=== PATIENT | male | born 1960 | race Caucasian/White ===

== ENCOUNTER 2016-06-14 22:52 | Emergency (ER) | payer OTHER ==
[~2016-06-14] VITALS: Ht 193 cm; Wt 90.3 kg
[2016-06-14 23:00] VITALS: TEMP 36.4; O2SAT 97; Ht 193 cm; Wt 90.3 kg
[2016-06-14] MEDS ORDERED: LORAZEPAM 2 MG/ML 1 ML VIAL IV STA (23:10)
[2016-06-14] MEDS ORDERED: SODIUM CHLORIDE 0.9% 1000ML 1,000 ML IV ONE (23:15)
[2016-06-14 23:41] LABS: PARTIAL THROMBOPLASTIN RATIO 1.1; PROTHROMBIN TIME (PATIENT) 10.7 SECONDS (9.0-12.0)
[2016-06-14 23:51] LABS: BUN/CREATININE RATIO 8.7 (10-20); CALCIUM 8.3 mg/dl (8.5-10.1); CREATININE 0.67 mg/dl (0.60-1.40); MAGNESIUM 2.3 mg/dl (1.8-2.4); POTASSIUM 4.2 mmol/L (3.5-5.1)
[2016-06-14 23:57] LABS: BASO ABS # 0.05 K/uL (0-0.2); BASOPHIL % 1.7 % (0-2); COMPLETE YES; LYMPH ABS # 0.83 K/uL (1.2-3.4); MEAN CELL VOLUME 89.4 fL (80-100); MEAN CORPUSCULAR HEMOGLOBIN 32.3 pg (25-34); MEAN CORPUSCULAR HGB CONC 36.2 g/dl (32-36); MEAN PLATELET VOLUME 9.4 fL (7.4-10.4); NEUTROPHILS % 44.9 %; PLATELET COUNT 90 K/uL (130-400); PLT ESTIMATE DECREASED; VARIANT LYM ABS # 0.48 K/uL; VARIANT LYMPHOCYTE % 18.1 %; WHITE BLOOD COUNT 2.67 K/uL (4.8-10.8)
[2016-06-15] MEDS ORDERED: LORAZEPAM 2 MG/ML 1 ML VIAL IM STA ×2 (00:13→01:43)
[2016-06-15] MEDS ORDERED: HALOPERIDOL LACTATE 5 MG/ML 1 ML VIAL ONE (00:13)
[2016-06-15] MEDS ORDERED: HALOPERIDOL LACTATE 5 MG/ML 1 ML VIAL IM STA ×2 (00:13→01:43)
[2016-06-15 04:50] VITALS: BP 125/82; PULSE 68; O2SAT 95
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
[2016-11-22] MEDS ORDERED: CRD200 PO (17:00)
[2016-11-22] MEDS ORDERED: NICO21DI4 TD (17:00)
[2016-11-22] MEDS ORDERED: DLCSR120 PO (17:00)
[2016-11-22] MEDS ORDERED: THM100 PO (17:00)
[2016-11-22] MEDS ORDERED: CLC100 PO (17:00)
[2016-11-22] MEDS ORDERED: DPKSP125 PO (17:00)
[2016-11-22] MEDS ORDERED: CTP1X PO (17:00)
[2016-11-22] MEDS ORDERED: FLV1 PO (17:00)
[2016-11-22] MEDS ORDERED: SNK PO (17:00)
[2016-11-22] MEDS ORDERED: CNT PO (17:00)
[2016-11-22] MEDS ORDERED: VTMD1000 PO (17:00)
[2016-11-22] MEDS ORDERED: NRN300 PO (17:14)
== END 2016-06-15 05:10 | disposition home or self-care (01) ==
LOC: EDBD 22:52 → C.EDB 23:00
DX: F10.129 Alcohol abuse with intoxication, unspecified (principal); Y90.8 Blood alcohol level of 240 mg/100 ml or more; R41.82 Altered mental status, unspecified; F17.200 Nicotine dependence, unspecified, uncomplicated

== ENCOUNTER 2016-10-20 12:24 | Inpatient (IN) | payer OTHER ==
[~2016-10-20] VITALS: Ht 193 cm; Wt 90.9 kg
[2016-10-20] VITALS (11 sets, daily range): BP systolic 86–168; BP diastolic 59–80; PULSE 84–116; TEMP 38.2; O2SAT 94–100; Ht 193 cm; Wt 90.9 kg
[2016-10-20] MEDS ORDERED: SODIUM CHLORIDE 0.9% 1000ML 500 ML IV STA (13:23)
[2016-10-20] MEDS ORDERED: PROMETHAZINE HCL INJ 6.25 MG in SODIUM CHLORIDE 0.9% 50ML 50 ML IV STA (13:23)
[2016-10-20] MEDS ORDERED: CEFTRIAXONE SOD INJ 1 GM ADDVIAL IV STA (13:23)
[2016-10-20] MEDS ORDERED: MULTI-VITAMIN INFUSION INJ 10 ML, THIAMINE HCL INJ 100 MG, FoLIC ACID INJ 1 MG in SODIU... IV ONE (13:30)
[2016-10-20] MEDS ORDERED: DIAZEPAM INJ 5 MG/ML 2 ML CARP IV ONE (13:30)
--- NOTE | 2016-10-20 13:46 | EMERGENCY ROOM VISIT NOTE ---
History Report prepared by Dorothy: Ayush Blackburn Under the Supervision of: Dr. Brice Reed M.D. First contact with patient: 13:18 Chief Complaint: DETOX REQUEST Stated Complaint: SHAKING Nursing Triage Summary: Pt arrives ALS from home Pt is alcoholic but has drastically decreased ETOH intake in the past month Pt reports he has not had any ETOH on 4 days until today. Pt had 1.5 beer this morning Pt reports he has been shaky and falling frequently Pt has bruising to bilat legs and bilat arms in different stages of healing History of Present Illness The patient is a 56 year old male who presents to the Emergency Room via ambulance with an acute alcohol detox request. The patient has been decreasing his alcohol intake over the past month. He also been falling frequently for the past month which is why he is covered in bruises. He was not drinking for four days until he had a few beers today. He has been experiencing episodes of shaking in which he does not lose consciousness. He has not bitten his tongue or become incontinent of urine or stool. He does not have a seizure history. The patient is feeling thirsty and dehydrated. He denies fevers, chills, vomiting. He does not have any known drug allergies but he does have adverse reactions to Ibuprofen. He does not take any daily medications other than vitamins. Source of History: patient Onset: today Position: other (global) Quality: other (alcohol detox request) Timing: other (acute) Associated Symptoms: No LOC, No chills, No fevers, No vomiting Review of Systems See HPI for pertinent positives & negatives. A total of 10 systems reviewed and were otherwise negative. Past Medical & Surgical Medical Problems: (1) Alcohol abuse Family History No pertinent family history Social History Smoking Status: Current Some Day Smoker Alcohol Use: heavy Marital Status: Occupation Status: unemployed Current/Historical Medications No Active Prescriptions or Reported Meds Allergies Coded Allergies: Ibuprofen (Unverified Allergy, Unknown, FACIAL SWELLING, 10/20/16) Physical Exam Vital Signs Date Time Temp Pulse Resp B/P Pulse Ox O2 Delivery O2 Flow Rate FiO2 10/20/16 14:55 96 Room Air 10/20/16 14:54 96 20 126/93 96 Room Air 10/20/16 14:17 102 18 109/79 97 Room Air 10/20/16 12:47 100 10/20/16 12:31 37.0 108 22 109/83 93 Room Air Physical Exam GENERAL: Patient is in no acute distress. Alcohol on his breath. HEENT: No acute trauma, normocephalic atraumatic, mucous membranes are dry, no nasal congestion, no scleral icterus. NECK: No stridor, no adenopathy, no meningismus, trachea is midline, nontender over the C-spine. LUNGS: Clear to auscultation bilaterally, no wheeze, no rhonchi, breath sounds equal. HEART: Tachycardic with a regular rhythm and no murmurs. ABDOMEN: Soft, nontender, bowel sounds positive, no hernias, no peritonitis. BACK: Contusions noted, no bony stepoff to the thoracic or lumbar spine. EXTREMITIES: See skin exam. No obvious fracture clinically to the upper or lower extremities. NEUROLOGIC: Awake, tremors noted to all extremities, no focal motor deficits, somewhat anxious. SKIN: Bruises and contusions noted across the body from head to toe, contusion to the left forearm and elbow is erythematous and warm consistent with possible cellulitis. Medical Decision & Procedures ER Provider Diagnostic Interpretation: Radiology results as stated below per my review and radiologist interpretation: CHEST ONE VIEW PORTABLE CLINICAL HISTORY: ALCOHOL OD mental status change COMPARISON STUDY: 07/21/2009 FINDINGS: Round atelectasis versus round parenchymal infiltrate left base. Possibility of an old healed fracture of the left ninth rib is considered. Diaphragms are smooth. Several subacute rib fractures are also noted bilaterally. No evidence pneumothorax. IMPRESSION: 1. Bilateral rib fractures of varying age. 2. Round atelectasis/infiltrate left base versus calcification of a healing posterior fracture left ninth rib Electronically signed by: Keo Muir M.D. 10/20/2016 1:48 PM Dictated Date/Time: 10/20/2016 1:[address] HEAD WITHOUT CONTRAST (CT) CLINICAL HISTORY: Head trauma. Ethanol overdose. COMPARISON STUDY: 06/14/2016 TECHNIQUE: Axial CT of the brain is performed from the vertex to the skull base. IV contrast was not administered for this examination. CT DOSE: 537.48 mGy.cm FINDINGS: No intra or extra-axial mass lesions are visualized. There is no CT evidence of acute cortical infarction. There is no evidence of midline shift. There is no acute hemorrhage. No calvarial fractures are visualized. There are patchy white matter hypodensities likely on a small vessel basis. There is no evidence of pathologic ventricular dilatation. There is mild generalized atrophy. There is no evidence of acute sinusitis IMPRESSION: No acute intracranial findings Electronically signed by: Jose Villanueva M.D. 10/20/2016 2:42 PM Dictated Date/Time: 10/20/2016 2:42 PM Laboratory Results 10/20/16 13:52 Red Blood Count 4.30, Mean Corpuscular Volume 89.3, Mean Corpuscular Hemoglobin 31.9, Mean Corpuscular Hemoglobin Concent 35.7, Mean Platelet Volume 11.7, Neutrophils (%) (Auto) 79.8, Lymphocytes (%) (Auto) 10.7, Monocytes (%) (Auto) 9.3, Eosinophils (%) (Auto) 0.0, Basophils (%) (Auto) 0.0, Neutrophils # (Auto) 3.27, Lymphocytes # (Auto) 0.44, Monocytes # (Auto) 0.38, Eosinophils # (Auto) 0.00, Basophils # (Auto) 0.00 10/20/16 13:52 Test 10/20/16 13:23 10/20/16 13:52 10/20/16 14:13 White Blood Count 4.10 K/uL (4.8-10.8) Red Blood Count 4.30 M/uL (4.7-6.1) Hemoglobin 13.7 g/dL (14.0-18.0) Hematocrit 38.4 % (42-52) Mean Corpuscular Volume 89.3 fL (80-100) Mean Corpuscular Hemoglobin 31.9 pg (25-34) Mean Corpuscular Hemoglobin Concent 35.7 g/dl (32-36) Platelet Count 39 K/uL (130-400) Mean Platelet Volume 11.7 fL (7.4-10.4) Neutrophils (%) (Auto) 79.8 % Lymphocytes (%) (Auto) 10.7 % Monocytes (%) (Auto) 9.3 % Eosinophils (%) (Auto) 0.0 % Basophils (%) (Auto) 0.0 % Neutrophils # (Auto) 3.27 K/uL (1.4-6.5) Lymphocytes # (Auto) 0.44 K/uL (1.2-3.4) Monocytes # (Auto) 0.38 K/uL (0.11-0.59) Eosinophils # (Auto) 0.00 K/uL (0-0.5) Basophils # (Auto) 0.00 K/uL (0-0.2) RDW Standard Deviation 40.1 fL (36.4-46.3) RDW Coefficient of Variation 12.4 % (11.5-14.5) Immature Granulocyte % (Auto) 0.2 % Immature Granulocyte # (Auto) 0.01 K/uL (0.00-0.02) Platelet Estimate DECREASED Prothrombin Time 10.6 SECONDS (9.0-12.0) Prothromb Time International Ratio 1.0 (0.9-1.1) Activated Partial Thromboplast Time 29.8 SECONDS (21.0-31.0) Partial Thromboplastin Ratio 1.1 Anion Gap 10.0 mmol/L (3-11) Est Creatinine Clear Calc Drug Dose 150.6 ml/min Estimated GFR () 124.6 Estimated GFR (Non- 107.5 BUN/Creatinine Ratio 11.2 (10-20) Lactic Acid Level 2.8 mmol/L (0.4-2.0) Calcium Level 9.4 mg/dl (8.5-10.1) Magnesium Level 2.2 mg/dl (1.8-2.4) Total Bilirubin 1.5 mg/dl (0.2-1) Direct Bilirubin 0.5 mg/dl (0-0.2) Aspartate Amino Transf (AST/SGOT) 116 U/L (15-37) Alanine Aminotransferase (ALT/SGPT) 115 U/L (12-78) Alkaline Phosphatase 185 U/L (45-117) Total Protein 8.2 gm/dl (6.4-8.2) Albumin 3.9 gm/dl (3.4-5.0) Lipase 76 U/L (73-393) Thyroid Stimulating Hormone (TSH) 0.850 uIu/ml (0.300-4.500) Ethyl Alcohol mg/dL 53.0 mg/dl (0-3) Laboratory results reviewed by me. Medications Administered Medications (Trade) Dose Ordered Sig/Rica Route Start Time Stop Time Status Last Admin Dose Admin Diazepam 5 mg 5 mg NOW ONCE IV 10/20/16 13:30 10/20/16 13:31 DC 10/20/16 13:45 5 MG Promethazine HCl 6.25 mg/Sodium Chloride 50.25 ml @ 204 mls/hr NOW STAT IV 10/20/16 13:23 10/20/16 13:37 DC 10/20/16 13:44 204 MLS/HR Sodium Chloride 500 ml @ 999 mls/hr Q31M STAT IV 10/20/16 13:23 10/20/16 13:53 DC 10/20/16 13:23 999 MLS/HR Multivitamins/ Thiamine HCl/ Folic Acid/Sodium Chloride (Mvi Infusion Inj/Vitamin B-1 Inj/Folvite Inj/ Nss 1000ml) 1,011.2 ml @ 500 mls/ hr Q2H2M ONCE IV 10/20/16 13:30 10/20/16 15:31 DC 10/20/16 13:57 500 MLS/HR Ceftriaxone Sodium (Rocephin Inj) 1 gm NOW STAT IV 10/20/16 13:23 10/20/16 13:28 DC 10/20/16 14:26 1 GM Lorazepam (Ativan Inj) 2 mg NOW STAT IV 10/20/16 14:37 10/20/16 14:40 DC 10/20/16 15:05 2 MG Chlordiazepoxide (Librium Cap) 50 mg NOW ONCE PO 10/20/16 14:45 10/20/16 14:46 DC 10/20/16 15:05 50 MG ECG Indication: other (tremor) Rate (beats per minute): 109 Rhythm: sinus tachycardia Findings: no acute ischemic change, no ectopy ED Course 1320: The patient was evaluated in room B10. A complete history and physical exam was performed. 1323: Rocephin 1 gm IV, NSS 500 ml @ 999 mls/hr, Promethazine HCl 6.25 mg / NSS 50.25 ml @ 204 mls/hr. 1330: Multivitamins 10 ml / Thiamine HCl 100 mg / Folic Acid 1 mg / NSS 1011.2 ml @ 500 mls/hr, Valium 5 mg IV. 1437: Ativan 2 mg IV. 1440: The patient is being moved to room A8. 1445: Librium 50 mg PO. The patient received 2 more milligrams of IV Ativan, Dr. Chirinos was consulted for admission/observation. Medical Decision Differential diagnosis includes dehydration, electrolyte imbalance, alcohol withdrawal, delirium tremens, renal failure, intracranial bleeding, extremity fracture, rhabdomyolysis, seizure, cellulitis, or UTI. There is no leukocytosis or concerning anemia. Platelet count is low in the 30s. Renal panel testing does not show renal failure or significant electrolyte abnormality. A hepatitis is present, likely consistent with his alcoholism. The patient appears to be in a euthyroid state. Brain CT shows no acute bleed or mass effect. Chest film shows old rib fractures, no pneumothorax or true pneumonia. EKG shows a sinus tachycardia, no acute ischemia. Cardiac enzyme testing is presently pending. Total CK is pending. Blood cultures are pending. Lactic acid level is elevated at over 2 consistent with possible infection or dehydration. There was no coagulopathy. Alcohol level was elevated at 53. Urine tox and urinalysis are pending. The patient presents with alcohol withdrawal, possibly seizures from alcohol withdrawal. He is dehydrated, he has multiple contusions about his extremities and torso. He was quite agitated. He was aggressively managed. He received IV Ativan and IV Valium. He was given oral Librium. He received IV saline. He was given IV saline with multivitamins, thiamine and folate. Because of concerns for a possible cellulitis on the left upper extremity, he was given a dose of IV ceftriaxone. Patient required a few more doses of IV Ativan for his agitation. Security was called to keep him in bed and to keep him from harming himself. I spoke to the patient, I talked to the rn field case manager. The on-call hospitalist was consulted. The patient is in need of hospital care for his alcohol withdrawal. Impression Primary Impression: Alcohol withdrawal Additional Impressions: Dehydration Tremor Multiple contusions Scribe Attestation The scribe's documentation has been prepared under my direction and personally reviewed by me in its entirety. I confirm that the note above accurately reflects all work, treatment, procedures, and medical decision making performed by me. Departure Information Dispostion Being Evaluated By Hospitalist Prescriptions No Active Prescriptions or Reported Meds Referrals Misha Beltre M.D. (MEDICAL) (PCP) Patient Instructions My [facility] Problem Qualifiers
--- NOTE | 2016-10-20 13:50 | DIAGNOSTIC IMAGING REPORT ---
CHEST ONE VIEW PORTABLE CLINICAL HISTORY: ALCOHOL OD mental status change COMPARISON STUDY: 07/21/2009 FINDINGS: Round atelectasis versus round parenchymal infiltrate left base. Possibility of an old healed fracture of the left ninth rib is considered. Diaphragms are smooth. Several subacute rib fractures are also noted bilaterally. No evidence pneumothorax. IMPRESSION: 1. Bilateral rib fractures of varying age. 2. Round atelectasis/infiltrate left base versus calcification of a healing posterior fracture left ninth rib Electronically signed by: Keo Muir M.D. 10/20/2016 1:48 PM Dictated Date/Time: 10/20/2016 1:46 PM
[2016-10-20] MEDS ORDERED: LORAZEPAM 2 MG/ML 1 ML VIAL IV STA ×4 (14:37→16:45)
--- NOTE | 2016-10-20 14:43 | DIAGNOSTIC IMAGING REPORT ---
CT HEAD WITHOUT CONTRAST (CT) CLINICAL HISTORY: Head trauma. Ethanol overdose. COMPARISON STUDY: 06/14/2016 TECHNIQUE: Axial CT of the brain is performed from the vertex to the skull base. IV contrast was not administered for this examination. CT DOSE: 537.48 mGy.cm FINDINGS: No intra or extra-axial mass lesions are visualized. There is no CT evidence of acute cortical infarction. There is no evidence of midline shift. There is no acute hemorrhage. No calvarial fractures are visualized. There are patchy white matter hypodensities likely on a small vessel basis. There is no evidence of pathologic ventricular dilatation. There is mild generalized atrophy. There is no evidence of acute sinusitis IMPRESSION: No acute intracranial findings Electronically signed by: Jose Villanueva M.D. 10/20/2016 2:42 PM Dictated Date/Time: 10/20/2016 2:42 PM
[2016-10-20] MEDS ORDERED: CHLORDIAZEPOXIDE 25 MG CAP PO ONE (14:45)
[2016-10-20 14:46] LABS: PARTIAL THROMBOPLASTIN RATIO 1.1; PROTHROMBIN TIME (PATIENT) 10.6 SECONDS (9.0-12.0)
[2016-10-20 14:57] LABS: COMPLETE YES; HEMATOCRIT 38.4 % (42-52); IG% 0.2 %; LYMPH % 10.7 %; LYMPH ABS # 0.44 K/uL (1.2-3.4); MEAN CELL VOLUME 89.3 fL (80-100); MEAN CORPUSCULAR HEMOGLOBIN 31.9 pg (25-34); MEAN CORPUSCULAR HGB CONC 35.7 g/dl (32-36); MEAN PLATELET VOLUME 11.7 fL (7.4-10.4); MONO % 9.3 %; NEUT % 79.8 %; PLATELET COUNT 39 K/uL (130-400); PLT ESTIMATE DECREASED
[2016-10-20 15:01] LABS: BUN/CREATININE RATIO 11.2 (10-20); CALCIUM 9.4 mg/dl (8.5-10.1); CREATININE 0.68 mg/dl (0.60-1.40); MAGNESIUM 2.2 mg/dl (1.8-2.4); POTASSIUM 3.3 mmol/L (3.5-5.1)
[2016-10-20 15:12] LABS: THYROID STIMULATING HORMONE 0.85 uIu/ml (0.300-4.500)
--- NOTE | 2016-10-20 15:44 | EMERGENCY ROOM VISIT NOTE ---
ED Visit Note First contact with patient: 13:18 Critical care time: I have personally spent greater than 30 minutes of critical care time in the direct management of this patient. This includes bedside care , interpretation of diagnostic studies and testing, discussion with consultants , the patient, and family members, and other required patient management activities. This 30 minutes is in excess of all separately billable procedures.
[2016-10-20] MEDS ORDERED: SODIUM CHLORIDE 0.9% 1000ML 1,000 ML IV SCH (15:51)
[2016-10-20] MEDS ORDERED: ONDANSETRON INJ 2 MG/ML 2 ML VIAL IV PRN (16:00)
[2016-10-20] MEDS ORDERED: ACETAMINOPHEN 325 MG TAB PO PRN (16:00)
[2016-10-20 16:26] LABS: BENZODIAZEPINE, URINE NEG (NEG); COCAINE,URINE NEG (NEG); PHENCYCLIDINE, URINE NEG (NEG)
[2016-10-20] MEDS ORDERED: DexMEDEtomidine HCL INJ 200 MCG in SODIUM CHLORIDE 0.9% 50ML 48 ML IV PRN (16:29)
[2016-10-20] MEDS ORDERED: MIDAZOLAM 125MG/250ML D5W IV ONE (16:41)
--- NOTE | 2016-10-20 16:44 | History and Physical ---
History & Physical Date & Time of Service: October 20, 2016 at 16:25 Chief Complaint: Shaking Primary Care Physician: Misha Beltre M.D. (MEDICAL) History of Present Illness Source: patient, clinic records, hospital records Patient seen and examined. 56 year old male with PMHx of alcohol abuse presents to the ED complaining of tremors x 4 days. History is somewhat unclear as at my time of interview patient is hallucinating which nursing staff report began about a half hour ago. Apparently friends had noticed that patient had been falling down very often. Over the last few weeks he had been cutting back on alcohol and hasn't had any for four days until he had 1.5 beers this morning. Patient states he has about 6 beers most nights. Patient is seen in the presence of 2 security guards as patient is tremulous, hallucinating and trying to climb out of bed. He is oriented to self only. He states he has been having seizures and that he has had them in the past. There has not been any seizure activity while in the ED. In the ED VS are stable, LFTs are elevated platelet count is 39, lactate is 2.8, CT head is negative, CXR shows rib fractures with various stages of healing. He received 6mg of IV Ativan total, 5mg Valium, and Librium and is still very agitated. He will therefore be admitted to the ICU for further workup and treatment. Past Medical/Surgical History Medical Problems: (1) Alcohol abuse Status: Chronic (2) Tobacco abuse Status: Chronic Surgical Problems: (1) No pertinent past surgical history Status: Chronic Family History FH: cancer MOTHER (pancreatic CA ) FH: heart disease FATHER ([place] age 68 ) Social History Smoking Status: Current Some Day Smoker Alcohol Use: heavy Marital Status: Housing status: other Occupational Status: unemployed Immunizations History of Influenza Vaccine: No History of Tetanus Vaccine?: Unknown Tetanus Immunization Date: Jul 21, 2006 History of Pneumococcal: No History of Hepatitis B Vaccine: No Hepatitis Immunization Date: Jul 21, 1983 Multi-Drug Resistant Organisms History of MDRO: No Allergies Coded Allergies: Ibuprofen (Unverified Allergy, Unknown, FACIAL SWELLING, 10/20/16) Home Medications No Active Prescriptions or Reported Meds Review of Systems Unable to assess at this time d/t mental status Physical Exam Vital Signs Date Time Temp Pulse Resp B/P Pulse Ox O2 Delivery O2 Flow Rate FiO2 10/20/16 16:22 125 24 125/94 96 10/20/16 14:55 96 Room Air 10/20/16 14:54 96 20 126/93 96 Room Air 10/20/16 14:17 102 18 109/79 97 Room Air 10/20/16 12:47 100 10/20/16 12:31 37.0 108 22 109/83 93 Room Air General Appearance: + pertinent finding (Disheveled tremulous 56 year old male who appears very aggitated with security guards at bedside ) Head: normocephalic, atraumatic Eyes: PERRL, sclerae normal ENT: hearing grossly normal, pharynx normal Neck: supple, no JVD Respiratory/Chest: chest non-tender, lungs clear, normal breath sounds, no respiratory distress, no accessory muscle use Cardiovascular: regular rate, rhythm, no edema, no gallop, no JVD, no murmur, normal peripheral pulses Abdomen/GI: normal bowel sounds, non tender, soft Back: normal inspection, no muscle spasm Extremities/Musculoskelatal: no calf tenderness, normal capillary refill, no pedal edema Neurologic/Psych: + pertinent finding (Alert, oriented to self, +hallucinations , +tremors, +aggitation, moves all extremities appropriately ) Skin: + pertinent finding (diffuse ecchymosis ) Lymphatic: no adenopathy Diagnostics Laboratory Results Results Past 24 Hours Test 10/20/16 13:52 10/20/16 14:13 10/20/16 15:25 Range/Units White Blood Count 4.10 4.8-10.8 K/uL Red Blood Count 4.30 4.7-6.1 M/uL Hemoglobin 13.7 14.0-18.0 g/dL Hematocrit 38.4 42-52 % Mean Corpuscular Volume 89.3 80-100 fL Mean Corpuscular Hemoglobin 31.9 25-34 pg Mean Corpuscular Hemoglobin Concent 35.7 32-36 g/dl Platelet Count 39 130-400 K/uL Mean Platelet Volume 11.7 7.4-10.4 fL Neutrophils (%) (Auto) 79.8 % Lymphocytes (%) (Auto) 10.7 % Monocytes (%) (Auto) 9.3 % Eosinophils (%) (Auto) 0.0 % Basophils (%) (Auto) 0.0 % Neutrophils # (Auto) 3.27 1.4-6.5 K/uL Lymphocytes # (Auto) 0.44 1.2-3.4 K/uL Monocytes # (Auto) 0.38 0.11-0.59 K/uL Eosinophils # (Auto) 0.00 0-0.5 K/uL Basophils # (Auto) 0.00 0-0.2 K/uL RDW Standard Deviation 40.1 36.4-46.3 fL RDW Coefficient of Variation 12.4 11.5-14.5 % Immature Granulocyte % (Auto) 0.2 % Immature Granulocyte # (Auto) 0.01 0.00-0.02 K/uL Platelet Estimate DECREASED Prothrombin Time 10.6 9.0-12.0 SECONDS Prothromb Time International Ratio 1.0 0.9-1.1 Activated Partial Thromboplast Time 29.8 21.0-31.0 SECONDS Partial Thromboplastin Ratio 1.1 Sodium Level 131 136-145 mmol/L Potassium Level 3.3 3.5-5.1 mmol/L Chloride Level 94 98-107 mmol/L Carbon Dioxide Level 27 21-32 mmol/L Anion Gap 10.0 3-11 mmol/L Blood Urea Nitrogen 8 7-18 mg/dl Creatinine 0.68 0.60-1.40 mg/dl Est Creatinine Clear Calc Drug Dose 150.6 ml/min Estimated GFR () 124.6 Estimated GFR (Non- 107.5 BUN/Creatinine Ratio 11.2 10-20 Random Glucose 92 70-99 mg/dl Lactic Acid Level 2.8 0.4-2.0 mmol/L Calcium Level 9.4 8.5-10.1 mg/dl Magnesium Level 2.2 1.8-2.4 mg/dl Total Bilirubin 1.5 0.2-1 mg/dl Direct Bilirubin 0.5 0-0.2 mg/dl Aspartate Amino Transf (AST/SGOT) 116 15-37 U/L Alanine Aminotransferase (ALT/SGPT) 115 12-78 U/L Alkaline Phosphatase 185 45-117 U/L Total Creatine Kinase 548 39-308 U/L Troponin I < 0.015 0-0.045 ng/ml Total Protein 8.2 6.4-8.2 gm/dl Albumin 3.9 3.4-5.0 gm/dl Lipase 76 73-393 U/L Thyroid Stimulating Hormone (TSH) 0.850 0.300-4.500 uIu/ml Ethyl Alcohol mg/dL 53.0 0-3 mg/dl Microbiology Results 10/20/16 Blood Culture, Received Pending 10/20/16 Blood Culture, Received Pending Diagnostic Radiology CXR Per radiologist read: IMPRESSION: 1. Bilateral rib fractures of varying age. 2. Round atelectasis/infiltrate left base versus calcification of a healing posterior fracture left ninth rib CT HEAD Per radiologist read: IMPRESSION: No acute intracranial findings EKG Sinus Tachycardia 109 BPM, QTc 463 Impression Assessment and Plan 56 year old male presents to the ED with alcohol detox request. ALCOHOL WITHDRAWAL -Admit to ICU -Receive total of 6mg IV Ativan, 5mg Valium and 50mg Librium in ED -Alcohol level 53, tox screen pending -Daily banana bag, will need po vitamins when this is stopped -Start alcohol withdrawal protocol with Librium and gabapentin -ICU admission for Precedex drip - defer management to technical services specialist -technical services specialist consult placed - input appreciated -Seizure precautions -psychiatry, bilingual social worker consults placed for discharge planning RE: possible rehab -CBC, CMP, Mg in AM TRANSAMINITIS -Total Bili 1.5, AST 116, ALT 115, Alk Phos 108 -likely secondary to alcohol abuse -repeat in AM THROMBOCYTOPENIA -39, likely secondary to alcohol abuse, liver disease - diffuse ecchymosis noted, no signs of active bleeding, Hgb stable -avoid anticoagulation, follow CBC ELEVATED LACTATE -lactate 2.8, no signs of infection -IVF hydration -repeat lactate at 1530 TOBACCO ABUSE -Cessation counseling given -Nicotine patch ordered DVT PROPHYLAXIS: SCDs RE: thrombocytopenia CODE STATUS: FULL CODE DISPO:In my clinical judgment this beneficiary meets acute admission criteria, established by [facility], that includes being hospitalized through two midnights. Patient seen in collaboration with Dr. Chirinos Attending Addendum: The patient was seen and examined The patient has been going through Delirium Tremens during my exam Denies any Pain Delirium is not controlled with IV Ativan and was admitted to ICU O/E Generalized bruising on multiple areas of different ages Very Agitated Received ~8mg Ativan in last hour and also Valium and Chlordiazepoxide Tachycardia with high BP Chest-clear to auscultate bilaterally Heart-regular Abdomen-benign Extremities-no edema Labs and Imaging studies were reviewed Delirium Tremens-requiring ICU care Agree with the assessment and plain DR Toby Chirinos VTE Prophylaxis VTE Risk Assessment Done? Y/N: Yes Risk Level: Moderate
[2016-10-20] MEDS ORDERED: RAPID SEQUENCE INDUCTION BAG ONE (16:49)
[2016-10-20] MEDS: LORAZEPAM 2 MG/ML 1 ML VIAL IV PRN (16:57)
[2016-10-20] MEDS ORDERED: KETAMINE HCL INJ 50 MG/ML 10 ML VIAL IV ONE (17:00)
[2016-10-20] MEDS ORDERED: NURSING VERBAL MED ORDER ONE (17:00)
[2016-10-20] MEDS ORDERED: KETAMINE HCL INJ 50 MG/ML 10 ML VIAL IV STA ×10 (17:11→17:35)
[2016-10-20] MEDS ORDERED: PNEUMOCOCCAL POLYSACCHARIDES 25 MCG/0.5 ML VIAL/SYR IM. ONE (17:15)
[2016-10-20] MEDS ORDERED: PNEUMOCOCCAL ADMINISTRATION CHARGE ONE (17:15)
[2016-10-20] MEDS ORDERED: CHLORDIAZEPOXIDE 25 MG CAP PO SCH ×2 (18:00→20:00)
[2016-10-20] MEDS ORDERED: GABAPENTIN 600 MG TAB PO ONE (18:00)
[2016-10-20] MEDS ORDERED: PROPOFOL IV EMULSION 10 MG/ML 100 ML VIAL IV ONE (18:23)
[2016-10-20] MEDS ORDERED: OPTIRAY 320 IV PRN (19:15)
[2016-10-20] MEDS: MIDAZOLAM 125MG/250ML D5W 250 ML IV PRN (19:27)
[2016-10-20] MEDS ORDERED: THIAMINE HCL INJ 500 MG in SODIUM CHLORIDE 0.9% 100ML 100 ML IV ONE (19:30)
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
[2016-10-20 20:11] LABS: ISTAT ALLEN TEST Pass; ISTAT ARTERIAL BLOOD GAS HCO3 27 meq/L (19-24); ISTAT ARTERIAL BLOOD GAS PCO2 47 mmHg (35-46); ISTAT ARTERIAL BLOOD GAS PO2 275 mmHg (80-95); ISTAT ARTERIAL BLOOD GAS pH 7.37 (7.35-7.45); ISTAT CARBON DIOXIDE 28 mEq/l (24-31); ISTAT DELIVERY SYSTEM Ventilator; ISTAT FIO2 100 %; ISTAT PEEP 5; ISTAT RATE 16; ISTAT SITE R Radial; Vt 500
--- NOTE | 2016-10-20 20:22 | DIAGNOSTIC IMAGING REPORT ---
CHEST ONE VIEW PORTABLE HISTORY: intubation COMPARISON: Chest 10/20/2016. FINDINGS: Endotracheal tube terminates 4.1 cm from the [place]. Nasogastric tube terminates below the diaphragm. The tip is not included on this study. No pneumothorax. No pleural effusions. Bibasilar hazy airspace opacities. Healing/healed left-sided rib fractures. The heart is normal in size. IMPRESSION: 1. Satisfactory support line placement. 2. Hazy bibasilar densities which may represent atelectasis or pneumonia. Electronically signed by: Dalton Adler M.D. 10/20/2016 8:21 PM Dictated Date/Time: 10/20/2016 8:19 PM
[2016-10-20] MEDS ORDERED: PEPTAMEN 1.5 CAL 1000ML BAG PO SCH (21:15)
--- NOTE | 2016-10-20 21:42 | DIAGNOSTIC IMAGING REPORT ---
CERVICAL SPINE CT CT DOSE: HISTORY: trauma TECHNIQUE: Multiaxial CT images of the cervical spine were performed and reformatted in the sagittal and coronal plane without the use of contrast. COMPARISON: Cervical spine CT 06/14/2016. FINDINGS: No fractures. No subluxation. Prevertebral soft tissues and the C1-C2 interval are intact. No pneumothorax. An endotracheal tube and nasogastric tube are noted. A stable 8 mm sclerotic focus within the left side of C1. Partial fusion of the C6-C7 vertebral bodies and left facets. Mild disc space narrowing at C4-C5 and C5-C6. IMPRESSION: No fractures within the cervical spine. Electronically signed by: Dalton Adler M.D. 10/20/2016 9:40 PM Dictated Date/Time: 10/20/2016 9:36 PM
[2016-10-20] MEDS: NSS + 20MEQ KCL 1000ML 1,000 ML IV SCH (22:02)
--- NOTE | 2016-10-20 22:02 | DIAGNOSTIC IMAGING REPORT ---
CHEST CT WITH CONTRAST, ABDOMEN AND PELVIS CT WITH INTRAVENOUS CONTRAST CT DOSE: 1272.02 mGy.cm HISTORY: trauma TECHNIQUE: Multiaxial CT images of the chest, abdomen, and pelvis were performed following the intravenous administration of contrast. COMPARISON: Chest 10/20/2016. FINDINGS: Multiple healing bilateral lower rib fractures. Nondisplaced acute right lateral sixth and seventh rib fractures. Endotracheal tube terminates 3.5 cm from the [place]. The nasogastric tube terminates in the stomach. No pneumothorax. No pleural effusions. The heart is normal in size. No mediastinal or hilar lymphadenopathy. No evidence for an aortic dissection. The central pulmonary arteries are patent. Trace mucoid material within the bilateral mainstem bronchi. There is also mucoid impaction of the majority of the right lower lobe segmental bronchi. There is complete collapse of the right lower lobe. Consolidation seen within the posterior aspect of the left lower lobe. There are few small patchy groundglass airspace opacities within the right upper lobe. No pneumoperitoneum. No pneumatosis. Tiny fat-containing bilateral inguinal hernias. Severe hepatic steatosis. There are at least 6 hyperdense/enhancing lesions within the liver. The largest within the right hepatic lobe measures 2 cm. The spleen, gallbladder, adrenal glands, and pancreas are unremarkable. Mild bilateral cortical renal scarring. No hydronephrosis. No retroperitoneal lymphadenopathy. There is a Corley catheter within the decompressed bladder. No pelvic free fluid. Colonic diverticulosis. No bowel wall thickening or obstruction. Normal appendix. IMPRESSION: 1. Acute nondisplaced right lateral sixth and seventh rib fractures. No pneumothorax. 2. Multiple additional healing bilateral lower rib fractures. 3. The majority of the right lower lobe segmental bronchi demonstrate mucoid opacification. There is associated complete collapse of the right lower lobe. This is likely due to aspiration. An obstructing mass is considered less likely but not entirely excluded. Bronchoscopy should be considered for further evaluation. 4. Posterior densities within the left lower lobe may represent atelectasis or pneumonia. 5. A few patchy groundglass airspace opacities within the right upper lobe also likely representing a pneumonia. 6. Severe hepatic steatosis. 7. There are at least 6 hyperdense/enhancing lesions within the liver. These are incompletely characterized on this single phase study. 8. Satisfactory support line placement. Electronically signed by: Dalton Adler M.D. 10/20/2016 10:00 PM Dictated Date/Time: 10/20/2016 9:40 PM
--- NOTE | 2016-10-20 22:27 | Procedure Note ---
Procedure Note Date of Service October 20, 2016. Procedure Note Procedure Date: 10/20/16 Procedure: Endotracheal intubation Pre-procedure Diagnosis: impending respiratory failure Post-procedure Diagnosis: same as above Prior to Procedure: Informed Consent: emergent Attending Staff: Mai Patel DO Indications: impending respiratory failure, acute alcohol withdrawal, hyperactive delirium The identity of the patient was confirmed and a bedside time out was performed. Description of Procedure: Patient was evaluated and required intubation for impending respiratory failure. The patient was prepared in the usual fashion. A MAC 3 laryngoscope was used. A 8-0 Fr endotrachial tube was placed endotracheally to 27 cm at the teeth. A Grade 1 view was obtained. The endotracheal tube was noted to pass through the vocal cords. Chest rise was bilateral. Bilateral breath sounds were heard without air sounds in the abdomen. Mist was noted in the endotracheal tube. End-tidal CO2 measurement was positive. Chest x-ray shows proper endotracheal tube placement. Complications: Desaturation down to 80% secondary to first attempt by forensic medical examiner. Findings: not applicable Specimens: not applicable Estimated blood loss: Zero
[2016-10-21] VITALS (64 sets, daily range): BP systolic 82–134; BP diastolic 61–97; PULSE 81–118; TEMP 36.7–37.1; O2SAT 71–100
[2016-10-21] MEDS: PROPOFOL IV EMULSION 10 MG/ML 100 ML VIAL IV SCH ×3 (00:13→10:07)
[2016-10-21 05:49] LABS: HEMATOCRIT 36.4 % (42-52); MEAN CELL VOLUME 91.9 fL (80-100); MEAN CORPUSCULAR HEMOGLOBIN 30.8 pg (25-34); MEAN CORPUSCULAR HGB CONC 33.5 g/dl (32-36); MEAN PLATELET VOLUME 12.1 fL (7.4-10.4); PLATELET COUNT 35 K/uL (130-400); RED BLOOD COUNT 3.96 M/uL (4.7-6.1); WHITE BLOOD COUNT 3.71 K/uL (4.8-10.8)
[2016-10-21] MEDS: MIDAZOLAM 125MG/250ML D5W 250 ML IV PRN (05:49)
[2016-10-21 06:24] LABS: BUN/CREATININE RATIO 12.6 (10-20); CALCIUM 8.6 mg/dl (8.5-10.1); CREATININE 0.56 mg/dl (0.60-1.40); MAGNESIUM 2.4 mg/dl (1.8-2.4)
[2016-10-21 06:31] LABS: ALB/GLOB RATIO 0.9 (0.9-2); PHOSPHORUS 3.8 mg/dl (2.5-4.9)
[2016-10-21 07:06] LABS: POTASSIUM 2.8 mmol/L (3.5-5.1)
[2016-10-21] MEDS: NSS + 20MEQ KCL 1000ML 1,000 ML IV SCH ×2 (08:20→16:21)
--- NOTE | 2016-10-21 08:21 | DIAGNOSTIC IMAGING REPORT ---
CHEST ONE VIEW PORTABLE HISTORY: intubation COMPARISON: Chest 10/20/2016. FINDINGS: Endotracheal tube terminates 4.4 cm from the [place]. Nasogastric tube terminates below the diaphragm. The tip is not included on this study the heart is stable in size. No pneumothorax. Acute nondisplaced right lateral sixth rib fractures again noted. Trace right pleural effusion. Slight improved aeration within the right basilar density. Left basilar densities persist. IMPRESSION: 1. Slight improved aeration within the right basilar density. Left basilar densities persist. 2. Satisfactory support line placement. 3. Right lateral sixth rib fracture. No pneumothorax. 4. Trace right pleural effusion. Electronically signed by: Dalton Adler M.D. 10/21/2016 8:19 AM Dictated Date/Time: 10/21/2016 8:17 AM
[2016-10-21] MEDS: NICOTINE 14 MG/24 HR TDSY TD SCH (08:22)
[2016-10-21] MEDS: POTASSIUM CHLR 10 MEQ / WTR 10 MEQ in PREMIXED WATER 100 ML IV SCH ×2 (08:41→09:48)
[2016-10-21] MEDS ORDERED: MULTI-VITAMIN INFUSION INJ 10 ML, THIAMINE HCL INJ 100 MG, FoLIC ACID INJ 1 MG in SODIU... IV SCH (09:00)
[2016-10-21] MEDS ORDERED: THIAMINE HCL 100 MG TAB PO SCH (09:00)
[2016-10-21] MEDS ORDERED: MULTIVITAMIN TAB PO SCH (09:00)
[2016-10-21] MEDS ORDERED: NICOTINE 14 MG/24 HR TDSY TD SCH (09:00)
[2016-10-21] MEDS: THIAMINE HCL INJ 500 MG in SODIUM CHLORIDE 0.9% 100ML 100 ML IV SCH (10:07)
[2016-10-21] MEDS: PANTOprazole INJ 40 MG in SYRINGE 0 ML IV SCH (10:10)
[2016-10-21] MEDS: MAGNESIUM OXIDE 400 MG TAB PO SCH ×2 (10:10→21:00)
[2016-10-21] MEDS ORDERED: POTASSIUM CHLORIDE 20 MEQ/15 ML UDC PO ONE (10:15)
[2016-10-21] MEDS: MULTIVITAMINS W/MINERALS 15ML UDP PO SCH (11:49)
--- NOTE | 2016-10-21 12:39 | Critical Care Progress Note ---
Critical Care Progress Note Date of Service October 21, 2016. ICU Day ICU Day Number: [address] Patel Subjective Intubated and sedated, with lightening sedation he moves all 4 extremities Objective General Appearance: Intubated sedated Head: normocephalic, atraumatic Neck: trachea midline Respiratory: clear to auscultation Cardiovasular: normal S1S2, Abdomen: non tender, normal bowel sounds, no rebound Upper Extremities: other (multiple ecchymoses of varying age) Lower Extremities: no edema, no deformity, other (multiple ecchymoses of varying age) Neuro: Moves all 4 extremities when lightening sedation Current SOFA Score SOFA Score Response (Comments) Value Platelets (x10) < 50 3 Bilirubin (mg/dL) 1.2 - 1.9 1 Do Coma Score 6 - 9 3 Level of Hypotension No Hypotension 0 Creatinine (mg/dL) < 1.2 0 Total 7 Assessment & Plan (1) History of traumatic brain injury (2) Alcohol withdrawal (3) Multiple contusions (4) Tobacco abuse (5) Alcohol abuse NEUROLOGICAL - Acute encephalopathy secondary to delirium tremens Acute alcohol withdrawal - Wean Versed infusion as tolerated - Continue propofol - RASS: Goal 0 to -1 CARDIAC - BP: 120-160 systolic No indication to start vasopressor support at this time - No known history of cardiac disease, though patient certainly be at risk a cardiomyopathy and may warrant an echo in the future RESPIRATORY -Continue ventilatory support secondary to acute encephalopathy History of Tobacco - Nicotine patch GASTROINTESTINAL - Diet: Peptamen 1.5, goal 35 ML's continuous - GI Prophylaxis: Protonix 40 mg IV daily - Bowel regimen: Monitor for bowel movements History of alcohol abuse - Folate 500 mg IV daily for 5 days; then folate 100 mg daily thereafter - Patient had initially arrived seeking alcohol cessation resources/ rehabilitation but is too acutely unwell to pursue these at this time. Once he is well mental health services will have to be consultative for further recommendations and disposition - Secondary tell case, the patient likely has a history of multiple recurrent falls. Due to the multiple ecchymoses that he has on arrival, it would be prudent to evaluate him for potentially undiagnosed internal injuries Acute on chronic rib fractures Acute transaminitis - Likely secondary to alcohol abuse - We'll rule out concurrent viral hepatitis - Monitor CMP daily RENAL//ENDOCRINE - Fluid Balance Monitor daily I's and O's - Electrolytes: Hypokalemia replacement with enteral feeding HEMATOLOGY / INFECTIOUS DISEASES - Afebrile, no focal source of infection Thrombocytopenia - Likely due to alcohol-related bone marrow suppression - Coag studies are fortunately normal - The patient should not receive an IV form of anticoagulation at this time - DVT Prophylaxis: Hold due to thrombocytopenia LINES/IV ACCESS - Left hand 18-gauge - Right arm 20-gauge CODE STATUS - Full Code DISPOSITION - OT/PT: ordered - ICU Patient critically ill due to respiratory insufficiency and delirium tremens I have personally spent 45 minutes of critical care time in the direct management of this patient. This is a life/limb threatening event. This includes time spent evaluating patient, direct bedside care, chart review, placing orders, interpretation of diagnostic studies, discussion with consultants, patient, and family members, as well as other required patient management activities. This time is exclusive of all separately billable procedures, and teaching time and separate from and in addition to any other critical care service time. Consults & Procedures Consultants: Mental health Procedures: Endotracheal intubation 10/20/2016 Data Medications: Current Inpatient Medications Medications (Trade) Dose Ordered Sig/Rica Route Start Time Stop Time Status Last Admin Dose Admin Acetaminophen (Tylenol Tab) 650 mg Q4H PRN PO 10/20/16 16:00 11/19/16 15:59 Ondansetron HCl (Zofran Inj) 4 mg Q6H PRN IV 10/20/16 16:00 11/19/16 15:59 10/20/16 19:31 4 MG Lorazepam (Ativan Inj) PRN Dosing -Active Protocol Q1H PRN IV 10/20/16 16:00 11/19/16 15:59 10/20/16 16:57 2 MG Nicotine (Nicoderm Cq 14MG Patch) 1 patch QAM TD 10/21/16 09:00 11/20/16 08:59 10/21/16 08:22 1 PATCH Miscellaneous 1 ea 1 ea HS N/A 10/20/16 21:00 11/19/16 20:59 Multivitamins 10 ml/Thiamine HCl 100 mg/Folic Acid 1 mg/Sodium Chloride 1,011.2 ml @ 150 mls/ hr DAILY IV 10/21/16 09:00 11/20/16 08:59 Midazolam HCl (Midazolam 125MG/ 250ML D5w) 250 ml @ 0 mls/hr Q0M PRN IV 10/20/16 16:29 11/19/16 16:28 10/21/16 05:49 20 MLS/HR Gabapentin (Neurontin Tab) 600 mg Q6H PO 10/21/16 00:00 Future Hold Gabapentin (Neurontin Tab) 600 mg Q8 PO 10/21/16 14:00 Future Hold Gabapentin (Neurontin Tab) 600 mg Q12@0600,1800 PO 10/22/16 18:00 Future Hold Gabapentin (Neurontin Tab) 600 mg DAILY PO 10/24/16 09:00 Future Hold Chlordiazepoxide (Librium Cap) 50 mg Q6@0200,0800,1400,2000 PO 10/20/16 20:00 Future Hold Chlordiazepoxide (Librium Cap) 50 mg Q8 PO 10/21/16 22:00 Future Hold Chlordiazepoxide (Librium Cap) 25 mg Q8 PO 10/22/16 22:00 Future Hold Chlordiazepoxide (Librium Cap) 10 mg Q12@1000,2200 PO 10/23/16 22:00 Future Hold Propofol 1 dose 1 dose UD IV 10/20/16 19:10 10/23/16 19:09 10/21/16 10:07 1 DOSE Thiamine HCl/ Sodium Chloride (Vitamin B-1 Inj/ Nss 100ml) 105 ml @ 208 mls/hr QAM IV 10/21/16 09:00 10/25/16 08:59 10/21/16 10:07 208 MLS/HR Ioversol 100 ml 100 ml UD PRN IV 10/20/16 19:15 10/24/16 19:14 Thiamine HCl 100 mg/Syringe 10 ml @ 2 mls/min DAILY IV 10/25/16 09:00 11/24/16 08:59 Pantoprazole Sodium 40 mg/ Syringe 10 ml @ 5 mls/min DAILY@11 IV 10/21/16 11:00 11/20/16 10:59 10/21/16 10:10 5 MLS/MIN Potassium Chloride/Sodium Chloride (Nss + 20meq KCl 1000ml) 1,000 ml @ 125 mls/hr Q8H IV 10/20/16 21:30 11/19/16 21:29 10/21/16 08:20 125 MLS/HR Enteral Nutritional Formula (Peptamen 1.5) 1,000 ml UD PO 10/20/16 21:15 11/19/16 21:14 10/21/16 00:13 1,000 ML Multivitamins Therapeutic (Cerovite Liquid) 15 ml QAM PO 10/21/16 09:00 11/20/16 08:59 10/21/16 11:49 15 ML Folic Acid (Folvite Tab) 1 mg QAM PO 10/21/16 09:00 11/20/16 08:59 10/21/16 08:21 1 MG Magnesium Oxide (Mag-Ox Tab) 400 mg BID PO 10/21/16 10:15 11/20/16 10:14 10/21/16 10:10 400 MG I & O: 24-Hour Column 10/21/16 07:59 Intake Total 2074 ml Output Total 1100 ml Balance 974 ml Vital Signs: Date Time Temp Pulse Resp B/P Pulse Ox O2 Delivery O2 Flow Rate FiO2 10/21/16 11:40 30 10/21/16 08:30 30 10/21/16 08:30 95 Mechanical Ventilator 30 10/21/16 07:57 30 10/21/16 06:00 36.7 88 16 103/74 100 Mechanical Ventilator 50 10/21/16 05:30 93 16 111/82 100 Mechanical Ventilator 50 10/21/16 05:20 30 10/21/16 04:52 50 10/21/16 04:52 100 Mechanical Ventilator 50 10/21/16 04:00 36.7 94 24 108/79 100 Mechanical Ventilator 50 10/21/16 03:30 86 17 103/77 100 Mechanical Ventilator 50 10/21/16 03:00 85 17 101/80 100 Mechanical Ventilator 50 10/21/16 02:30 50 10/21/16 02:00 36.7 85 16 85/73 100 Mechanical Ventilator 50 10/21/16 01:42 98 Room Air 100 10/21/16 01:42 100 10/21/16 01:30 82 16 95/76 100 10/21/16 01:00 83 17 92/72 100 10/21/16 00:30 81 16 89/76 100 10/21/16 00:00 36.8 84 17 82/64 100 Mechanical Ventilator 50 10/20/16 23:17 60 10/20/16 23:00 84 17 96/70 100 50 10/20/16 22:30 84 17 86/64 98 10/20/16 22:00 84 17 92/67 98 Mechanical Ventilator 70 10/20/16 21:41 85 19 102/70 98 10/20/16 21:05 70 10/20/16 21:00 89 19 90/63 98 10/20/16 20:30 91 19 94/59 97 10/20/16 20:02 98 Room Air 100 10/20/16 20:02 100 10/20/16 20:00 103 90/63 97 Mechanical Ventilator 70 10/20/16 19:50 100 10/20/16 19:31 116 102/68 10/20/16 19:00 106 115/73 10/20/16 18:45 100 10/20/16 16:40 38.2 92 24 168/80 94 Room Air 10/20/16 16:22 125 24 125/94 96 10/20/16 14:55 96 Room Air 10/20/16 14:54 96 20 126/93 96 Room Air 10/20/16 14:17 102 18 109/79 97 Room Air 10/20/16 12:47 100 10/20/16 12:31 37.0 108 22 109/83 93 Room Air Laboratory Results: Last 24 Hours Test 10/20/16 13:52 10/20/16 14:13 10/20/16 15:25 10/20/16 17:25 White Blood Count 4.10 K/uL Red Blood Count 4.30 M/uL Hemoglobin 13.7 g/dL Hematocrit 38.4 % Mean Corpuscular Volume 89.3 fL Mean Corpuscular Hemoglobin 31.9 pg Mean Corpuscular Hemoglobin Concent 35.7 g/dl Platelet Count 39 K/uL Mean Platelet Volume 11.7 fL Neutrophils (%) (Auto) 79.8 % Lymphocytes (%) (Auto) 10.7 % Monocytes (%) (Auto) 9.3 % Eosinophils (%) (Auto) 0.0 % Basophils (%) (Auto) 0.0 % Neutrophils # (Auto) 3.27 K/uL Lymphocytes # (Auto) 0.44 K/uL Monocytes # (Auto) 0.38 K/uL Eosinophils # (Auto) 0.00 K/uL Basophils # (Auto) 0.00 K/uL RDW Standard Deviation 40.1 fL RDW Coefficient of Variation 12.4 % Immature Granulocyte % (Auto) 0.2 % Immature Granulocyte # (Auto) 0.01 K/uL Platelet Estimate DECREASED Prothrombin Time 10.6 SECONDS Prothromb Time International Ratio 1.0 Activated Partial Thromboplast Time 29.8 SECONDS Partial Thromboplastin Ratio 1.1 Sodium Level 131 mmol/L Potassium Level 3.3 mmol/L Chloride Level 94 mmol/L Carbon Dioxide Level 27 mmol/L Anion Gap 10.0 mmol/L Blood Urea Nitrogen 8 mg/dl Creatinine 0.68 mg/dl Est Creatinine Clear Calc Drug Dose 150.6 ml/min Estimated GFR () 124.6 Estimated GFR (Non- 107.5 BUN/Creatinine Ratio 11.2 Random Glucose 92 mg/dl Lactic Acid Level 2.8 mmol/L 2.7 mmol/L Calcium Level 9.4 mg/dl Magnesium Level 2.2 mg/dl Total Bilirubin 1.5 mg/dl Direct Bilirubin 0.5 mg/dl Aspartate Amino Transf (AST/SGOT) 116 U/L Alanine Aminotransferase (ALT/SGPT) 115 U/L Alkaline Phosphatase 185 U/L Total Creatine Kinase 548 U/L 571 U/L Troponin I < 0.015 ng/ml Total Protein 8.2 gm/dl Albumin 3.9 gm/dl Lipase 76 U/L Thyroid Stimulating Hormone (TSH) 0.850 uIu/ml Ethyl Alcohol mg/dL 53.0 mg/dl Urine Opiates Screen NEG Urine Methadone, Qualitative NEG Urine Barbiturates NEG Urine Phencyclidine (PCP) Level NEG Ur Amphetamine/Methamphetamine NEG MDMA (Ecstasy) Screen NEG Urine Benzodiazepines Screen NEG Urine Cocaine Metabolite NEG Urine Marijuana (THC) POS Hepatitis B Surface Antigen NEG Hepatitis C Antibody NEG Test 10/20/16 19:36 10/20/16 19:59 10/20/16 23:25 10/21/16 05:15 Sodium Level 137 mmol/L 138 mmol/L Osmolality 273 mOsm/kg Blood Gas Sample Site R Radial Bedside Blood Gas pH (LAB) 7.37 Bedside Blood Gas pCO2 (LAB) 47 mmHg Bedside Blood Gas pO2 (LAB) 275 mmHg Bedside Blood Gas HCO3 (LAB) 27 meq/L Bedside Blood Gas Total CO2 28 mEq/l Bedside Blood Gas Base Excess (LAB) 2.0 meq/L Bedside Blood Gas O2 Saturation 100.0 % Kiran Test Pass Oxygen Delivery Device Ventilator Bedside Oxygen Rate (breaths/min) 16 Blood Gas Minute Ventilation 9.0 Bedside FiO2 100 % Blood Gas Tidal Volume 500 Blood Gas PEEP 5 Total Creatine Kinase 479 U/L 396 U/L White Blood Count 3.71 K/uL Red Blood Count 3.96 M/uL Hemoglobin 12.2 g/dL Hematocrit 36.4 % Mean Corpuscular Volume 91.9 fL Mean Corpuscular Hemoglobin 30.8 pg Mean Corpuscular Hemoglobin Concent 33.5 g/dl RDW Standard Deviation 42.5 fL RDW Coefficient of Variation 12.6 % Platelet Count 35 K/uL Mean Platelet Volume 12.1 fL Potassium Level 2.8 mmol/L Chloride Level 100 mmol/L Carbon Dioxide Level 31 mmol/L Anion Gap 7.0 mmol/L Blood Urea Nitrogen 7 mg/dl Creatinine 0.56 mg/dl Est Creatinine Clear Calc Drug Dose 170.5 ml/min Estimated GFR () 135.0 Estimated GFR (Non- 116.4 BUN/Creatinine Ratio 12.6 Random Glucose 74 mg/dl Calcium Level 8.6 mg/dl Phosphorus Level 3.8 mg/dl Magnesium Level 2.4 mg/dl Total Bilirubin 1.3 mg/dl Aspartate Amino Transf (AST/SGOT) 79 U/L Alanine Aminotransferase (ALT/SGPT) 87 U/L Alkaline Phosphatase 150 U/L Total Protein 6.8 gm/dl Albumin 3.3 gm/dl Globulin 3.5 gm/dl Albumin/Globulin Ratio 0.9 Test 10/21/16 11:53 Problem Qualifiers (1) Alcohol withdrawal: Complication of substance-induced condition: with delirium Qualified Codes: F10.231 - Alcohol dependence with withdrawal delirium
[2016-10-21] MEDS ORDERED: NURSING VERBAL MED ORDER ONE (13:00)
[2016-10-21 13:30] LABS: URINE APPEARANCE CLEAR (CLEAR); URINE COLOR ORANGE; URINE EPITHELIAL CELL AUTO 20-30 /lpf (0-5); URINE NITRITE POS (NEG); URINE SPECIFIC GRAVITY 1.036 (1.000-1.030); UROBILINOGEN POS (NEG)
[2016-10-21 13:40] LABS: MANUAL MICROSCOPIC REQUIRED? NO; REVIEW REQ? NO; URINE BILIRUBIN NEG (NEG)
[2016-10-21] MEDS ORDERED: GABAPENTIN 600 MG TAB PO SCH ×2 (14:00)
--- NOTE | 2016-10-21 17:10 | Progress Note ---
Medicine Progress Note Date & Time of Visit: October 21, 2016 at 16:47. Subjective Pt was seen and examined Sedated with propofol and versed Intubated on vent support Vital stable Objective Last 8 Hrs Date Time Temp Pulse Resp B/P Pulse Ox O2 Delivery O2 Flow Rate FiO2 10/21/16 16:30 100 Mechanical Ventilator 30 10/21/16 16:30 30 10/21/16 14:35 30 10/21/16 12:45 91 16 100 10/21/16 12:30 92 17 102/79 100 10/21/16 12:15 95 16 100 10/21/16 12:00 91 16 126/84 100 10/21/16 11:45 100 Mechanical Ventilator 30 10/21/16 11:45 30 10/21/16 11:45 114 15 99 10/21/16 11:40 30 10/21/16 11:33 37.1 93 18 130/95 100 Mechanical Ventilator 30 10/21/16 11:31 90 16 130/95 100 10/21/16 11:30 90 16 100 10/21/16 11:15 87 16 97 10/21/16 11:00 91 16 98/73 100 10/21/16 10:45 92 16 100 10/21/16 10:30 90 16 102/69 100 10/21/16 10:15 90 17 100 10/21/16 10:00 102 18 101/74 100 Mechanical Ventilator 30 10/21/16 09:57 104 34 116/82 100 10/21/16 09:56 93 19 84/61 71 10/21/16 09:53 95 17 96/72 100 10/21/16 09:45 93 16 100 10/21/16 09:30 87 16 103/73 100 Mechanical Ventilator 30 10/21/16 09:15 95 20 100 10/21/16 09:00 96 20 106/83 100 Physical Exam: General- sedated, on vent support Head- atraumatic Eyes- PERRL ENT- Intubated Neck- supple, no JVD Lungs- CTA, No wheezing Heart- tachycardia, no murmur Abdomen- normal bowel sounds, soft Extremities- no pretibial edema Neuro- sedated Skin- warm & dry Laboratory Results: Last 24 Hours Test 10/20/16 17:25 10/20/16 19:36 10/20/16 19:59 10/20/16 23:25 Lactic Acid Level 2.7 mmol/L Total Creatine Kinase 571 U/L 479 U/L Hepatitis B Surface Antigen NEG Hepatitis C Antibody NEG Sodium Level 137 mmol/L Osmolality 273 mOsm/kg Blood Gas Sample Site R Radial Bedside Blood Gas pH (LAB) 7.37 Bedside Blood Gas pCO2 (LAB) 47 mmHg Bedside Blood Gas pO2 (LAB) 275 mmHg Bedside Blood Gas HCO3 (LAB) 27 meq/L Bedside Blood Gas Total CO2 28 mEq/l Bedside Blood Gas Base Excess (LAB) 2.0 meq/L Bedside Blood Gas O2 Saturation 100.0 % Kiran Test Pass Oxygen Delivery Device Ventilator Bedside Oxygen Rate (breaths/min) 16 Blood Gas Minute Ventilation 9.0 Bedside FiO2 100 % Blood Gas Tidal Volume 500 Blood Gas PEEP 5 Test 10/21/16 00:00 10/21/16 05:15 10/21/16 11:44 10/21/16 11:53 Urine Color ORANGE Urine Appearance CLEAR Urine pH 6.0 Urine Specific [place] 1.036 Urine Protein NEG Urine Glucose (UA) NEG Urine Ketones TRACE Urine Occult Blood NEG Urine Nitrite POS Urine Bilirubin NEG Urine Urobilinogen POS Urine Leukocyte Esterase TRACE Urine WBC (Auto) 1-5 /hpf Urine RBC (Auto) 5-10 /hpf Urine Hyaline Casts (Auto) 0 /lpf Urine Epithelial Cells (Auto) 20-30 /lpf Urine Bacteria (Auto) NEG Urine Osmolality 547 mOms/kg White Blood Count 3.71 K/uL Red Blood Count 3.96 M/uL Hemoglobin 12.2 g/dL Hematocrit 36.4 % Mean Corpuscular Volume 91.9 fL Mean Corpuscular Hemoglobin 30.8 pg Mean Corpuscular Hemoglobin Concent 33.5 g/dl RDW Standard Deviation 42.5 fL RDW Coefficient of Variation 12.6 % Platelet Count 35 K/uL Mean Platelet Volume 12.1 fL Sodium Level 138 mmol/L Potassium Level 2.8 mmol/L Chloride Level 100 mmol/L Carbon Dioxide Level 31 mmol/L Anion Gap 7.0 mmol/L Blood Urea Nitrogen 7 mg/dl Creatinine 0.56 mg/dl Est Creatinine Clear Calc Drug Dose 170.5 ml/min Estimated GFR () 135.0 Estimated GFR (Non- 116.4 BUN/Creatinine Ratio 12.6 Random Glucose 74 mg/dl Calcium Level 8.6 mg/dl Phosphorus Level 3.8 mg/dl Magnesium Level 2.4 mg/dl Total Bilirubin 1.3 mg/dl Aspartate Amino Transf (AST/SGOT) 79 U/L Alanine Aminotransferase (ALT/SGPT) 87 U/L Alkaline Phosphatase 150 U/L Total Creatine Kinase 396 U/L 327 U/L Total Protein 6.8 gm/dl Albumin 3.3 gm/dl Globulin 3.5 gm/dl Albumin/Globulin Ratio 0.9 Bedside Glucose 86 mg/dl Assessment & Plan DELIRIUM TREMENS -Day 2 in the ICU intubated on vent support -On versed and propofol drip -On alcohol withdrawal protocol with gabapentin and Librium -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 professor on 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 management -Continue thiamine, Folic acid and IVF -Consider alcohol rehab once discharge TRANSAMINITIS -likely secondary to alcohol abuse -Viral hepatitis pending - Continue monitor liver enzymes THROMBOCYTOPENIA -likely secondary to alcohol abuse -platelet today 35 -No signs of bleeding -avoid anticoagulation, follow CBC ELEVATED LACTATE -Due to alcohol intoxication on admission -no signs of infection -Continue IVF hydration ELEVATED CK LEVEL Continue IVF HYPOKALEMIA -K replaced -continue IVF with K -Moniotor BMP TOBACCO ABUSE -Nicotine patch ordered DVT PROPHYLAXIS: SCDs RE: thrombocytopenia CODE STATUS: FULL CODE 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 Current Inpatient Medications: Current Inpatient Medications Medications (Trade) Dose Ordered Sig/Rica Route Start Time Stop Time Status Last Admin Dose Admin Acetaminophen (Tylenol Tab) 650 mg Q4H PRN PO 10/20/16 16:00 11/19/16 15:59 Ondansetron HCl (Zofran Inj) 4 mg Q6H PRN IV 10/20/16 16:00 11/19/16 15:59 10/20/16 19:31 4 MG Lorazepam (Ativan Inj) PRN Dosing -Active Protocol Q1H PRN IV 10/20/16 16:00 11/19/16 15:59 10/20/16 16:57 2 MG Nicotine (Nicoderm Cq 14MG Patch) 1 patch QAM TD 10/21/16 09:00 11/20/16 08:59 10/21/16 08:22 1 PATCH Miscellaneous 1 ea 1 ea HS N/A 10/20/16 21:00 11/19/16 20:59 Midazolam HCl (Midazolam 125MG/ 250ML D5w) 250 ml @ 0 mls/hr Q0M PRN IV 10/20/16 16:29 11/19/16 16:28 10/21/16 05:49 20 MLS/HR Gabapentin (Neurontin Tab) 600 mg Q6H PO 10/21/16 00:00 Future Hold Gabapentin (Neurontin Tab) 600 mg Q8 PO 10/21/16 14:00 Future Hold Gabapentin (Neurontin Tab) 600 mg Q12@0600,1800 PO 10/22/16 18:00 Future Hold Gabapentin (Neurontin Tab) 600 mg DAILY PO 10/24/16 09:00 Future Hold Chlordiazepoxide (Librium Cap) 50 mg Q6@0200,0800,1400,2000 PO 10/20/16 20:00 Future Hold Chlordiazepoxide (Librium Cap) 50 mg Q8 PO 10/21/16 22:00 Future Hold Chlordiazepoxide (Librium Cap) 25 mg Q8 PO 10/22/16 22:00 Future Hold Chlordiazepoxide (Librium Cap) 10 mg Q12@1000,2200 PO 10/23/16 22:00 Future Hold Propofol 1 dose 1 dose UD IV 10/20/16 19:10 10/23/16 19:09 10/21/16 10:07 1 DOSE Thiamine HCl/ Sodium Chloride (Vitamin B-1 Inj/ Nss 100ml) 105 ml @ 208 mls/hr QAM IV 10/21/16 09:00 10/25/16 08:59 10/21/16 10:07 208 MLS/HR Ioversol 100 ml 100 ml UD PRN IV 10/20/16 19:15 10/24/16 19:14 Thiamine HCl 100 mg/Syringe 10 ml @ 2 mls/min DAILY IV 10/25/16 09:00 11/24/16 08:59 Pantoprazole Sodium 40 mg/ Syringe 10 ml @ 5 mls/min DAILY@11 IV 10/21/16 11:00 11/20/16 10:59 10/21/16 10:10 5 MLS/MIN Potassium Chloride/Sodium Chloride (Nss + 20meq KCl 1000ml) 1,000 ml @ 125 mls/hr Q8H IV 10/20/16 21:30 11/19/16 21:29 10/21/16 16:21 125 MLS/HR Enteral Nutritional Formula (Peptamen 1.5) 1,000 ml UD PO 10/20/16 21:15 11/19/16 21:14 10/21/16 00:13 1,000 ML Multivitamins Therapeutic (Cerovite Liquid) 15 ml QAM PO 10/21/16 09:00 11/20/16 08:59 10/21/16 11:49 15 ML Folic Acid (Folvite Tab) 1 mg QAM PO 10/21/16 09:00 11/20/16 08:59 10/21/16 08:21 1 MG Magnesium Oxide (Mag-Ox Tab) 400 mg BID PO 10/21/16 10:15 11/20/16 10:14 10/21/16 10:10 400 MG
[2016-10-21] MEDS ORDERED: CHLORDIAZEPOXIDE 25 MG CAP PO SCH (22:00)
[2016-10-22] VITALS (90 sets, daily range): BP systolic 80–140; BP diastolic 49–99; PULSE 67–197; TEMP 37–37.6; O2SAT 87–100
[2016-10-22] MEDS: PROPOFOL IV EMULSION 10 MG/ML 100 ML VIAL IV SCH ×5 (00:39→18:38)
[2016-10-22] MEDS: NSS + 20MEQ KCL 1000ML 1,000 ML IV SCH ×2 (00:40→07:49)
[2016-10-22 05:54] LABS: HEMATOCRIT 32.6 % (42-52); MEAN CELL VOLUME 93.1 fL (80-100); MEAN CORPUSCULAR HEMOGLOBIN 31.1 pg (25-34); MEAN CORPUSCULAR HGB CONC 33.4 g/dl (32-36); WHITE BLOOD COUNT 3.76 K/uL (4.8-10.8)
[2016-10-22 05:55] LABS: COMPLETE YES; EOS % 0.3 %; IG% 0.3 %; LYMPH % 19.4 %; LYMPH ABS # 0.73 K/uL (1.2-3.4); MEAN PLATELET VOLUME 10.8 fL (7.4-10.4); MONO % 12.2 %; NEUT % 67.8 %; PLATELET COUNT 50 K/uL (130-400)
[2016-10-22] MEDS ORDERED: CHLORDIAZEPOXIDE 25 MG CAP PO SCH ×2 (06:00→22:00)
[2016-10-22 06:36] LABS: ALT/SGPT 70 U/L (12-78); AST/SGOT 61 U/L (15-37); BLOOD UREA NITROGEN 4 mg/dl (7-18); CARBON DIOXIDE 27 mmol/L (21-32); CHLORIDE 107 mmol/L (98-107); CREATININE 0.36 mg/dl (0.60-1.40); GLUCOSE 108 mg/dl (70-99); MAGNESIUM 2.3 mg/dl (1.8-2.4); POTASSIUM 3.4 mmol/L (3.5-5.1); SODIUM 141 mmol/L (136-145)
[2016-10-22 06:45] LABS: ALB/GLOB RATIO 0.8 (0.9-2); ALKALINE PHOSPHATASE 138 U/L (45-117); PHOSPHORUS 2.6 mg/dl (2.5-4.9)
--- NOTE | 2016-10-22 07:17 | DIAGNOSTIC IMAGING REPORT ---
CHEST ONE VIEW PORTABLE CLINICAL HISTORY: Possible aspiration pneumonia. COMPARISON STUDY: Chest radiograph October 21, 2016. FINDINGS: The tip of the endotracheal tube is 6.1 cm above the [place]. The tip of the nasogastric tube is within the gastric body. There is no pneumothorax. Right sixth rib fracture is noted. There are healing left rib fractures. There is no evidence of pulmonary edema. Right basilar consolidation has slightly progressed. There is mild left basilar opacity. IMPRESSION: 1. Satisfactory positioning of lines and tubes. 2. Progression of bibasilar opacities, right greater than left. The appearance favors pneumonia. Electronically signed by: Salomón Villalobos M.D. 10/22/2016 7:15 AM Dictated Date/Time: 10/22/2016 7:13 AM
[2016-10-22] MEDS: MULTIVITAMINS W/MINERALS 15ML UDP PO SCH (07:44)
[2016-10-22] MEDS: NICOTINE 14 MG/24 HR TDSY TD SCH (07:44)
[2016-10-22] MEDS: MAGNESIUM OXIDE 400 MG TAB PO SCH ×2 (07:44→21:10)
[2016-10-22] MEDS: THIAMINE HCL INJ 500 MG in SODIUM CHLORIDE 0.9% 100ML 100 ML IV SCH (07:48)
[2016-10-22] MEDS ORDERED: POTASSIUM CHLR 10 MEQ / WTR 10 MEQ in PREMIXED WATER 100 ML IV ONE (08:30)
[2016-10-22 08:43] LABS: ISTAT ALLEN TEST Pass; ISTAT ARTERIAL BLOOD GAS HCO3 25 meq/L (19-24); ISTAT ARTERIAL BLOOD GAS PCO2 31 mmHg (35-46); ISTAT ARTERIAL BLOOD GAS PO2 57 mmHg (80-95); ISTAT CARBON DIOXIDE 26 mEq/l (24-31); ISTAT DELIVERY SYSTEM Ventilator; ISTAT FIO2 30 %; ISTAT PEEP 5; ISTAT RATE 16; ISTAT SITE L Radial; VE 10.4; Vt 500
[2016-10-22] MEDS: MIDAZOLAM 125MG/250ML D5W 250 ML IV PRN ×2 (09:18→16:58)
[2016-10-22] MEDS ORDERED: POTASSIUM CHLORIDE 10 MEQ TABCR PO ONE (09:30)
--- NOTE | 2016-10-22 09:39 | Critical Care Progress Note ---
Critical Care Progress Note Date of Service October 22, 2016. ICU Day ICU Day Number: [address] Patel Subjective Intubated sedated Objective General Appearance: Intubated sedated Head: normocephalic, atraumatic Neck: trachea midline Respiratory: clear to auscultation Cardiovasular: normal S1S2, Abdomen: non tender, normal bowel sounds, no rebound Upper Extremities: other (multiple ecchymoses of varying age) Lower Extremities: no edema, no deformity, other (multiple ecchymoses of varying age) Neuro: Moves all 4 extremities when lightening sedation Current SOFA Score SOFA Score Response (Comments) Value PaO2/FiO2 (mmHg) < 200 3 Platelets (x10) < 50 3 Bilirubin (mg/dL) < 1.2 0 [place] Coma Score 6 - 9 3 Level of Hypotension No Hypotension 0 Creatinine (mg/dL) < 1.2 0 Total 9 Previous SOFA Scores 9 10/21/2016 Assessment & Plan (1) History of traumatic brain injury (2) Alcohol withdrawal (3) Multiple contusions (4) Tobacco abuse (5) Alcohol abuse NEUROLOGICAL - Acute encephalopathy secondary to delirium tremens Acute alcohol withdrawal - Overnight nursing reports possible seizure-like activity - EEG to be obtained today - Will transition off of propofol to first set a single agent - RASS: Goal -2 CARDIAC -Blood pressure within acceptable limits RESPIRATORY -Right pulmonary infiltrate on chest x-ray - I think this is likely secondary to aspiration from the initial presentation, there is no white count or fever at this time. We will send sputum for lab analysis and monitor the fever curve History of Tobacco - Nicotine patch GASTROINTESTINAL - Diet: Peptamen 1.5, 35 ML's continuous, will increase to goal of 65 ML's per hour continuous per nutrition's recommendation, hopefully will be able to remove propofol from sedation regimen - GI Prophylaxis: Protonix 40 mg IV daily - Bowel regimen: Monitor for bowel movements History of alcohol abuse - Folate 500 mg IV daily for 5 days; then folate 100 mg daily thereafter - Patient had initially arrived seeking alcohol cessation resources/ rehabilitation but is too acutely unwell to pursue these at this time. Once he is well mental health services will have to be consultative for further recommendations and disposition - Secondary tell case, the patient likely has a history of multiple recurrent falls. Due to the multiple ecchymoses that he has on arrival, it would be prudent to evaluate him for potentially undiagnosed internal injuries Acute on chronic rib fractures Acute transaminitis - Improving, no evidence of viral B or C hepatitis RENAL//ENDOCRINE - Fluid Balance Monitor daily I's and O's - Electrolytes: Hypokalemia replacement with enteral feeding HEMATOLOGY / INFECTIOUS DISEASES - Afebrile, no focal source of infection Thrombocytopenia - Likely due to alcohol-related bone marrow suppression - Coag studies are fortunately normal - The patient should not receive an IV form of anticoagulation at this time - DVT Prophylaxis: SCDs - Pancytopenia will check reticulocyte count LINES/IV ACCESS - Left hand 18-gauge - Right arm 20-gauge CODE STATUS - Full Code DISPOSITION - OT/PT: ordered - ICU Patient critically ill due to respiratory insufficiency and delirium tremens I have personally spent 45 minutes of critical care time in the direct management of this patient. This is a life/limb threatening event. This includes time spent evaluating patient, direct bedside care, chart review, placing orders, interpretation of diagnostic studies, discussion with consultants, patient, and family members, as well as other required patient management activities. This time is exclusive of all separately billable procedures, and teaching time and separate from and in addition to any other critical care service time. Consults & Procedures Consultants: Mental health Procedures: Endotracheal intubation 10/20/2016 Bronchoscopy 10/22/2016 Data Medications: Current Inpatient Medications Medications (Trade) Dose Ordered Sig/Rica Route Start Time Stop Time Status Last Admin Dose Admin Acetaminophen (Tylenol Tab) 650 mg Q4H PRN PO 10/20/16 16:00 11/19/16 15:59 Ondansetron HCl (Zofran Inj) 4 mg Q6H PRN IV 10/20/16 16:00 11/19/16 15:59 10/20/16 19:31 4 MG Lorazepam PRN Dosing -Active Protocol Q1H PRN IV 10/20/16 16:00 11/19/16 15:59 10/20/16 16:57 2 MG Midazolam HCl (Midazolam 125MG/ 250ML D5w) 250 ml @ 0 mls/hr Q0M PRN IV 10/20/16 16:29 11/19/16 16:28 10/22/16 09:18 30 MLS/HR Gabapentin (Neurontin Tab) 600 mg Q6H PO 10/21/16 00:00 Future Hold Gabapentin (Neurontin Tab) 600 mg Q8 PO 10/21/16 14:00 Future Hold Gabapentin (Neurontin Tab) 600 mg Q12@0600,1800 PO 10/22/16 18:00 Future Hold Gabapentin (Neurontin Tab) 600 mg DAILY PO 10/24/16 09:00 Future Hold Chlordiazepoxide (Librium Cap) 50 mg Q6@0200,0800,1400,2000 PO 10/20/16 20:00 Future Hold Chlordiazepoxide (Librium Cap) 50 mg Q8 PO 10/21/16 22:00 Future Hold Chlordiazepoxide (Librium Cap) 25 mg Q8 PO 10/22/16 22:00 Future Hold Chlordiazepoxide (Librium Cap) 10 mg Q12@1000,2200 PO 10/23/16 22:00 Future Hold Propofol 1 dose 1 dose UD IV 10/20/16 19:10 10/23/16 19:09 10/22/16 07:50 1 DOSE Thiamine HCl/ Sodium Chloride (Vitamin B-1 Inj/ Nss 100ml) 105 ml @ 208 mls/hr QAM IV 10/21/16 09:00 10/25/16 08:59 10/22/16 07:48 208 MLS/HR Ioversol 100 ml 100 ml UD PRN IV 10/20/16 19:15 10/24/16 19:14 Thiamine HCl 100 mg/Syringe 10 ml @ 2 mls/min DAILY IV 10/25/16 09:00 11/24/16 08:59 Pantoprazole Sodium/Syringe (Protonix Inj/ Syringe) 10 ml @ 5 mls/min DAILY@11 IV 10/21/16 11:00 11/20/16 10:59 10/21/16 10:10 5 MLS/MIN Enteral Nutritional Formula (Peptamen 1.5) 1,000 ml UD PO 10/20/16 21:15 11/19/16 21:14 10/21/16 00:13 1,000 ML Multivitamins Therapeutic (Cerovite Liquid) 15 ml QAM PO 10/21/16 09:00 11/20/16 08:59 10/22/16 07:44 15 ML Folic Acid (Folvite Tab) 1 mg QAM PO 10/21/16 09:00 11/20/16 08:59 10/22/16 07:44 1 MG Magnesium Oxide (Mag-Ox Tab) 400 mg BID PO 10/21/16 10:15 11/20/16 10:14 10/22/16 07:44 400 MG Potassium/ Phosphorus/Sodium (Phospha 250 Neutral 155-852-130 Mg) 1 tab QID PO 10/22/16 10:00 10/23/16 09:00 Fentanyl Citrate (Fentanyl Inj) 50 mcg Q2H PRN IV 10/22/16 09:15 11/05/16 09:14 I & O: 24-Hour Column 10/22/16 08:00 Intake Total 5223 ml Output Total 1000 ml Balance 4223 ml Vital Signs: Date Time Temp Pulse Resp B/P Pulse Ox O2 Delivery O2 Flow Rate FiO2 10/22/16 07:25 30 10/22/16 06:30 37.0 93 33 99/71 96 Mechanical Ventilator 30 10/22/16 06:00 37.0 91 21 96/62 95 Mechanical Ventilator 30 10/22/16 05:30 37.1 94 22 102/70 95 Mechanical Ventilator 30 10/22/16 05:10 30 10/22/16 05:00 37.2 95 20 105/76 98 Mechanical Ventilator 30 10/22/16 04:30 37.1 103 20 119/85 99 Mechanical Ventilator 30 10/22/16 04:03 30 10/22/16 04:03 98 Room Air 30 10/22/16 04:00 89 19 93/68 96 Mechanical Ventilator 30 10/22/16 03:30 93 20 107/76 98 Mechanical Ventilator 30 10/22/16 03:00 90 19 97/67 97 Mechanical Ventilator 30 10/22/16 02:30 91 19 115/84 99 Mechanical Ventilator 30 10/22/16 02:00 90 18 96/63 97 Mechanical Ventilator 30 10/22/16 01:48 30 10/22/16 01:31 97 25 101/93 100 Mechanical Ventilator 30 10/22/16 01:02 94 19 105/89 97 Mechanical Ventilator 30 10/22/16 00:30 89 20 101/67 96 Mechanical Ventilator 30 10/22/16 00:03 30 10/22/16 00:03 98 Room Air 30 10/22/16 00:00 37.0 92 24 101/70 96 Mechanical Ventilator 30 10/21/16 23:30 91 17 106/77 97 Mechanical Ventilator 30 10/21/16 23:00 91 17 103/73 95 Mechanical Ventilator 30 10/21/16 22:50 30 10/21/16 22:30 89 16 134/90 98 Mechanical Ventilator 30 10/21/16 22:02 107 26 113/97 98 Mechanical Ventilator 30 10/21/16 21:02 30 10/21/16 21:02 98 Room Air 30 10/21/16 21:00 89 18 109/78 98 10/21/16 20:30 90 18 109/72 98 10/21/16 20:00 36.8 89 18 118/80 99 Mechanical Ventilator 30 10/21/16 19:41 30 10/21/16 19:31 93 26 117/97 76 10/21/16 19:00 92 16 112/80 99 10/21/16 18:01 94 22 119/81 100 Mechanical Ventilator 30 10/21/16 18:00 95 21 100 10/21/16 17:47 30 10/21/16 17:30 93 17 106/74 100 10/21/16 17:00 97 19 108/74 100 10/21/16 16:30 100 Mechanical Ventilator 30 10/21/16 16:30 101 17 121/87 100 10/21/16 16:30 30 10/21/16 16:00 37.1 118 25 113/79 10/21/16 15:30 93 17 102/72 100 Mechanical Ventilator 30 10/21/16 15:00 91 16 122/82 100 10/21/16 14:35 30 10/21/16 14:30 106 18 119/83 98 10/21/16 14:00 85 16 100 10/21/16 13:30 90 17 101/74 100 10/21/16 13:00 92 16 105/74 100 10/21/16 12:45 91 16 100 10/21/16 12:30 92 17 102/79 100 10/21/16 12:15 95 16 100 10/21/16 12:00 91 16 126/84 100 10/21/16 11:45 100 Mechanical Ventilator 30 10/21/16 11:45 30 10/21/16 11:45 114 15 99 10/21/16 11:40 30 10/21/16 11:33 37.1 93 18 130/95 100 Mechanical Ventilator 30 10/21/16 11:31 90 16 130/95 100 10/21/16 11:30 90 16 100 10/21/16 11:15 87 16 97 10/21/16 11:00 91 16 98/73 100 10/21/16 10:45 92 16 100 10/21/16 10:30 90 16 102/69 100 10/21/16 10:15 90 17 100 10/21/16 10:00 102 18 101/74 100 Mechanical Ventilator 30 10/21/16 09:57 104 34 116/82 100 10/21/16 09:56 93 19 84/61 71 10/21/16 09:53 95 17 96/72 100 10/21/16 09:45 93 16 100 Laboratory Results: Last 24 Hours Test 10/21/16 11:44 10/21/16 11:53 10/21/16 18:41 10/22/16 05:30 Bedside Glucose 86 mg/dl 109 mg/dl Total Creatine Kinase 327 U/L White Blood Count 3.76 K/uL Red Blood Count 3.50 M/uL Hemoglobin 10.9 g/dL Hematocrit 32.6 % Mean Corpuscular Volume 93.1 fL Mean Corpuscular Hemoglobin 31.1 pg Mean Corpuscular Hemoglobin Concent 33.4 g/dl Platelet Count 50 K/uL Mean Platelet Volume 10.8 fL Neutrophils (%) (Auto) 67.8 % Lymphocytes (%) (Auto) 19.4 % Monocytes (%) (Auto) 12.2 % Eosinophils (%) (Auto) 0.3 % Basophils (%) (Auto) 0.0 % Neutrophils # (Auto) 2.55 K/uL Lymphocytes # (Auto) 0.73 K/uL Monocytes # (Auto) 0.46 K/uL Eosinophils # (Auto) 0.01 K/uL Basophils # (Auto) 0.00 K/uL RDW Standard Deviation 44.3 fL RDW Coefficient of Variation 12.9 % Immature Granulocyte % (Auto) 0.3 % Immature Granulocyte # (Auto) 0.01 K/uL Sodium Level 141 mmol/L Potassium Level 3.4 mmol/L Chloride Level 107 mmol/L Carbon Dioxide Level 27 mmol/L Anion Gap 7.0 mmol/L Blood Urea Nitrogen 4 mg/dl Creatinine 0.36 mg/dl Est Creatinine Clear Calc Drug Dose 265.3 ml/min Estimated GFR () > 150.0 Estimated GFR (Non- 139.6 BUN/Creatinine Ratio 12.0 Random Glucose 108 mg/dl Calcium Level 8.0 mg/dl Phosphorus Level 2.6 mg/dl Magnesium Level 2.3 mg/dl Total Bilirubin 0.8 mg/dl Aspartate Amino Transf (AST/SGOT) 61 U/L Alanine Aminotransferase (ALT/SGPT) 70 U/L Alkaline Phosphatase 138 U/L Total Protein 6.0 gm/dl Albumin 2.7 gm/dl Globulin 3.3 gm/dl Albumin/Globulin Ratio 0.8 Test 10/22/16 08:30 10/22/16 09:12 Blood Gas Sample Site L Radial Bedside Blood Gas pH (LAB) 7.50 Bedside Blood Gas pCO2 (LAB) 31 mmHg Bedside Blood Gas pO2 (LAB) 57 mmHg Bedside Blood Gas HCO3 (LAB) 25 meq/L Bedside Blood Gas Total CO2 26 mEq/l Bedside Blood Gas Base Excess (LAB) 2.0 meq/L Bedside Blood Gas O2 Saturation 92.0 % Kiran Test Pass Oxygen Delivery Device Ventilator Bedside Oxygen Rate (breaths/min) 16 Blood Gas Minute Ventilation 10.4 Bedside FiO2 30 % Blood Gas Tidal Volume 500 Blood Gas PEEP 5 Absolute Reticulocyte Count 0.04 10^6/uL Percent Reticulocyte Count 1.2 % Problem Qualifiers (1) Alcohol withdrawal: Complication of substance-induced condition: with delirium Qualified Codes: F10.231 - Alcohol dependence with withdrawal delirium
--- NOTE | 2016-10-22 10:13 | Procedure Note ---
Procedure Note Date of Service October 22, 2016. Procedure Note Procedure date: 10/22/16 Procedure: fiberoptic bronchoscopy Pre-procedure Diagnosis: CXR infiltrate Post-procedure Diagnosis: same as above Prior to Procedure: Informed Consent: The risks, benefits, indications, potential complications, and alternatives were explained to the patient/family and informed consent obtained. Attending Staff: Mai Patel DO Resident/APC: Jose Angel Skin Prep: Not applicable Anesthesia: 1 % lidocaine Indications: New infiltrate on chest x-ray, concern for aspiration versus pneumonia. The identity of the patient was confirmed and a bedside time out was performed. Description of Procedure: Fiberoptic bronchoscopy was performed via endotracheal tube. Bronchioalveolar lavage was performed. Findings included: Thick white and green secretions from the right lower lobe and thick white secretions from the left posterior lobe were suctioned. Complications: None Specimens: Bronchial washings sent for culture and Gram stain, cytology, fungal elements, and AFB stain and culture. Estimated blood loss: Zero
[2016-10-22] MEDS: POT PHOSPHATE MONOBASIC W/ SOD TAB PO SCH ×4 (10:22→21:09)
[2016-10-22] MEDS: PANTOprazole INJ 40 MG in SYRINGE 0 ML IV SCH (10:25)
[2016-10-22] MEDS: FENTANYL CITRATE INJ 50 MCG/1 ML 2 ML VIAL IV PRN (11:51)
[2016-10-22] MEDS: AMPICILLIN/SULBACTAM SOD INJ 3,000 MG in SODIUM CHLORIDE 0.9% 100ML 100 ML IV SCH ×2 (11:51→16:32)
[2016-10-22] MEDS ORDERED: AZITHROMYCIN IV 500 MG in DEXTROSE 5% 250ML 250 ML IV ONE (12:00)
[2016-10-22] MEDS ORDERED: CLONIDINE HCL 0.1 MG TAB PO ONE (12:30)
[2016-10-22] MEDS: FENTANYL 1250MCG/250ML NSS 250 ML IV PRN (13:20)
[2016-10-22] MEDS: PROPRANOLOL HCL 10 MG TAB PO SCH ×2 (14:00→21:09)
--- NOTE | 2016-10-22 17:10 | Progress Note ---
Medicine Progress Note Date & Time of Visit: October 22, 2016 at 17:00. Subjective Pt was seen and examined On vent support sedated with propofol and versed Objective Last 8 Hrs Date Time Temp Pulse Resp B/P Pulse Ox O2 Delivery O2 Flow Rate FiO2 10/22/16 16:00 96 Mechanical Ventilator 30 10/22/16 16:00 37.3 73 17 107/78 97 Mechanical Ventilator 30 10/22/16 16:00 30 10/22/16 15:45 37.3 77 22 91 10/22/16 15:30 37.4 74 18 113/80 95 10/22/16 15:18 37.4 77 18 94/65 95 10/22/16 15:15 37.4 78 17 95 Mechanical Ventilator 30 10/22/16 15:00 37.5 80 19 85/64 95 10/22/16 14:45 37.5 85 19 95 10/22/16 14:30 37.5 93 19 96/67 94 10/22/16 14:15 37.5 197 26 92 10/22/16 14:00 37.4 93 21 100/67 96 Mechanical Ventilator 40 10/22/16 13:45 37.4 93 21 96 10/22/16 13:30 37.3 107 29 107/78 99 10/22/16 13:15 37.3 99 33 105/74 99 10/22/16 13:00 37.3 93 34 97/67 95 10/22/16 12:45 37.3 92 19 94/67 94 Mechanical Ventilator 40 10/22/16 12:30 37.4 94 19 99/67 94 10/22/16 12:15 37.4 99 28 93 Mechanical Ventilator 40 10/22/16 12:01 37.4 111 34 140/66 88 Mechanical Ventilator 30 10/22/16 12:00 37.4 107 35 87 10/22/16 12:00 30 10/22/16 12:00 91 Mechanical Ventilator 40 10/22/16 11:55 50 10/22/16 11:45 37.4 120 38 113/78 93 10/22/16 11:30 37.4 97 27 89/61 92 10/22/16 11:15 37.4 102 25 109/68 90 Mechanical Ventilator 30 10/22/16 11:00 37.4 113 35 91 10/22/16 10:55 37.4 116 33 108/67 94 10/22/16 10:51 37.4 117 33 99/77 96 Mechanical Ventilator 50 10/22/16 10:50 100 10/22/16 10:46 37.4 122 36 112/81 99 10/22/16 10:45 37.4 122 40 100 10/22/16 10:41 37.5 117 19 115/69 100 Mechanical Ventilator 100 10/22/16 10:35 37.5 116 27 101/65 98 10/22/16 10:34 37.5 115 28 103/72 98 10/22/16 10:32 37.5 108 19 100/73 98 10/22/16 10:30 37.5 106 29 89/62 98 10/22/16 10:28 37.5 106 27 92/66 98 10/22/16 10:26 37.5 106 28 89/64 98 10/22/16 10:24 37.5 106 27 93/63 98 10/22/16 10:22 37.5 107 27 80/60 98 10/22/16 10:20 37.5 108 27 90/62 98 10/22/16 10:18 37.5 109 28 90/59 98 10/22/16 10:16 37.5 110 27 91/64 100 10/22/16 10:15 37.5 111 28 100 10/22/16 10:12 37.6 112 26 102/64 100 10/22/16 10:10 37.6 114 27 111/70 100 Mechanical Ventilator 100 10/22/16 10:08 37.6 116 22 127/85 100 10/22/16 10:06 37.6 118 30 129/99 100 Mechanical Ventilator 100 10/22/16 10:05 37.6 117 31 111/67 100 10/22/16 10:02 37.6 113 20 118/87 99 Mechanical Ventilator 100 10/22/16 10:00 37.6 111 16 87/49 97 10/22/16 09:30 37.5 98 26 101/70 97 Mechanical Ventilator 30 Physical Exam: General- sedated, on vent support Head- atraumatic Eyes- PERRL ENT- Intubated Neck- supple, no JVD Lungs- CTA, No wheezing Heart- tachycardia, no murmur Abdomen- normal bowel sounds, soft Extremities- no pretibial edema Neuro- sedated Skin- warm & dry Laboratory Results: Last 24 Hours Test 10/21/16 18:41 10/22/16 05:30 10/22/16 08:30 10/22/16 09:12 Bedside Glucose 109 mg/dl White Blood Count 3.76 K/uL Red Blood Count 3.50 M/uL Hemoglobin 10.9 g/dL Hematocrit 32.6 % Mean Corpuscular Volume 93.1 fL Mean Corpuscular Hemoglobin 31.1 pg Mean Corpuscular Hemoglobin Concent 33.4 g/dl Platelet Count 50 K/uL Mean Platelet Volume 10.8 fL Neutrophils (%) (Auto) 67.8 % Lymphocytes (%) (Auto) 19.4 % Monocytes (%) (Auto) 12.2 % Eosinophils (%) (Auto) 0.3 % Basophils (%) (Auto) 0.0 % Neutrophils # (Auto) 2.55 K/uL Lymphocytes # (Auto) 0.73 K/uL Monocytes # (Auto) 0.46 K/uL Eosinophils # (Auto) 0.01 K/uL Basophils # (Auto) 0.00 K/uL RDW Standard Deviation 44.3 fL RDW Coefficient of Variation 12.9 % Immature Granulocyte % (Auto) 0.3 % Immature Granulocyte # (Auto) 0.01 K/uL Sodium Level 141 mmol/L Potassium Level 3.4 mmol/L Chloride Level 107 mmol/L Carbon Dioxide Level 27 mmol/L Anion Gap 7.0 mmol/L Blood Urea Nitrogen 4 mg/dl Creatinine 0.36 mg/dl Est Creatinine Clear Calc Drug Dose 265.3 ml/min Estimated GFR () > 150.0 Estimated GFR (Non- 139.6 BUN/Creatinine Ratio 12.0 Random Glucose 108 mg/dl Calcium Level 8.0 mg/dl Phosphorus Level 2.6 mg/dl Magnesium Level 2.3 mg/dl Total Bilirubin 0.8 mg/dl Aspartate Amino Transf (AST/SGOT) 61 U/L Alanine Aminotransferase (ALT/SGPT) 70 U/L Alkaline Phosphatase 138 U/L Total Protein 6.0 gm/dl Albumin 2.7 gm/dl Globulin 3.3 gm/dl Albumin/Globulin Ratio 0.8 Blood Gas Sample Site L Radial Bedside Blood Gas pH (LAB) 7.50 Bedside Blood Gas pCO2 (LAB) 31 mmHg Bedside Blood Gas pO2 (LAB) 57 mmHg Bedside Blood Gas HCO3 (LAB) 25 meq/L Bedside Blood Gas Total CO2 26 mEq/l Bedside Blood Gas Base Excess (LAB) 2.0 meq/L Bedside Blood Gas O2 Saturation 92.0 % Kiran Test Pass Oxygen Delivery Device Ventilator Bedside Oxygen Rate (breaths/min) 16 Blood Gas Minute Ventilation 10.4 Bedside FiO2 30 % Blood Gas Tidal Volume 500 Blood Gas PEEP 5 Absolute Reticulocyte Count 0.04 10^6/uL Percent Reticulocyte Count 1.2 % Vitamin B12 Level 758 pg/mL 25-Hydroxy Vitamin D Total 11.0 ng/ml Folate 15.68 ng/mL Procalcitonin 0.27 ng/ml Date/Time Source Procedure Growth Status 10/22/16 00:00 Bronchial Washings Right Lower Lobe Fungal Smear Pending Received 10/22/16 00:00 Bronchial Washings Right Lower Lobe Fungal Culture Pending Received 10/22/16 00:00 Bronchial Washings Right Lower Lobe Acid Fast Stain Pending Received 10/22/16 00:00 Bronchial Washings Right Lower Lobe Mycobacterial Culture Pending Received 10/22/16 00:00 Bronchial Washings Right Lower Lobe Gram Stain Pending Received 10/22/16 00:00 Bronchial Washings Right Lower Lobe Bronchoalveolar Lavage Culture Pending Received Assessment & Plan DELIRIUM TREMENS -Day 3 in the ICU intubated on vent support -On versed and propofol drip -On alcohol withdrawal protocol with gabapentin and Librium -school 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 monitor cbc TRANSAMINITIS -likely secondary to alcohol abuse -Improved -Hepatitis B and C negative -continue monitor liver enzymes THROMBOCYTOPENIA -likely secondary to alcohol abuse -platelet improved from 35 to 50 -No signs of bleeding -avoid anticoagulation -monitor CBC ELEVATED LACTATE -Due to alcohol intoxication on admission -no signs of infection, procalcitonin negative, blood cx no growth -Continue IVF hydration ELEVATED CK LEVEL Continue IVF HYPOKALEMIA -K replaced -continue IVF with K -Moniotor BMP TOBACCO ABUSE -Nicotine patch ordered DVT PROPHYLAXIS: SCDs RE: thrombocytopenia CODE STATUS: FULL CODE Consultants: SURVEY MANAGER Procedures: Bronchoscopy Current Inpatient Medications: Current Inpatient Medications Medications (Trade) Dose Ordered Sig/Rica Route Start Time Stop Time Status Last Admin Dose Admin Acetaminophen (Tylenol Tab) 650 mg Q4H PRN PO 10/20/16 16:00 11/19/16 15:59 Ondansetron HCl (Zofran Inj) 4 mg Q6H PRN IV 10/20/16 16:00 11/19/16 15:59 10/20/16 19:31 4 MG Lorazepam (Ativan Inj) PRN Dosing -Active Protocol Q1H PRN IV 10/20/16 16:00 11/19/16 15:59 10/20/16 16:57 2 MG Gabapentin (Neurontin Tab) 600 mg Q6H PO 10/21/16 00:00 Future Hold Gabapentin (Neurontin Tab) 600 mg Q8 PO 10/21/16 14:00 Future Hold Gabapentin (Neurontin Tab) 600 mg Q12@0600,1800 PO 10/22/16 18:00 Future Hold Gabapentin (Neurontin Tab) 600 mg DAILY PO 10/24/16 09:00 Future Hold Chlordiazepoxide (Librium Cap) 50 mg Q6@0200,0800,1400,2000 PO 10/20/16 20:00 Future Hold Chlordiazepoxide (Librium Cap) 50 mg Q8 PO 10/21/16 22:00 Future Hold Chlordiazepoxide (Librium Cap) 25 mg Q8 PO 10/22/16 22:00 Future Hold Chlordiazepoxide (Librium Cap) 10 mg Q12@1000,2200 PO 10/23/16 22:00 Future Hold Propofol 1 dose 1 dose UD IV 10/20/16 19:10 10/23/16 19:09 10/22/16 12:00 1 DOSE Thiamine HCl/ Sodium Chloride (Vitamin B-1 Inj/ Nss 100ml) 105 ml @ 208 mls/hr QAM IV 10/21/16 09:00 10/25/16 08:59 10/22/16 07:48 208 MLS/HR Ioversol 100 ml 100 ml UD PRN IV 10/20/16 19:15 10/24/16 19:14 Thiamine HCl 100 mg/Syringe 10 ml @ 2 mls/min DAILY IV 10/25/16 09:00 6/16/17 08:59 Pantoprazole Sodium/Syringe (Protonix Inj/ Syringe) 10 ml @ 5 mls/min DAILY@11 IV 10/21/16 11:00 11/20/16 10:59 10/22/16 10:25 5 MLS/MIN Enteral Nutritional Formula (Peptamen 1.5) 1,000 ml UD PO 10/20/16 21:15 11/19/16 21:14 10/21/16 00:13 1,000 ML Multivitamins Therapeutic (Cerovite Liquid) 15 ml QAM PO 10/21/16 09:00 11/20/16 08:59 10/22/16 07:44 15 ML Folic Acid (Folvite Tab) 1 mg QAM PO 10/21/16 09:00 11/20/16 08:59 10/22/16 07:44 1 MG Magnesium Oxide (Mag-Ox Tab) 400 mg BID PO 10/21/16 10:15 11/20/16 10:14 10/22/16 07:44 400 MG Potassium/ Phosphorus/Sodium (Phospha 250 Neutral 155-852-130 Mg) 1 tab QID PO 10/22/16 10:00 10/23/16 09:00 10/22/16 11:54 1 TAB Fentanyl Citrate 50 mcg 50 mcg Q2H PRN IV 10/22/16 09:15 11/05/16 09:14 10/22/16 11:51 50 MCG Ampicillin Sodium/ Sulbactam Sodium 3000 mg/Sodium Chloride 108 ml @ 200 mls/hr Q6H IV 10/22/16 12:00 10/29/16 11:29 10/22/16 11:51 200 MLS/HR Azithromycin 250 mg/Dextrose 252.5 ml @ 125 mls/hr DAILY IV 10/23/16 09:00 10/27/16 08:59 Midazolam HCl (Midazolam 125MG/ 250ML D5w) 250 ml @ 0 mls/hr Q0M PRN IV 10/22/16 12:30 11/21/16 12:29 Clonidine HCl (Catapres Tab) 0.2 mg QAM PO 10/23/16 09:00 11/22/16 08:59 Propranolol HCl 10 mg 10 mg TID PO 10/22/16 14:00 11/21/16 13:59 10/22/16 14:00 10 MG Fentanyl Citrate (Fentanyl Drip 1250MCG/250 Nss) 250 ml @ 0 mls/hr Q0M PRN IV 10/22/16 12:30 11/05/16 12:29 10/22/16 13:20 20 MLS/HR
[2016-10-22] MEDS ORDERED: NURSING VERBAL MED ORDER ONE (17:45)
[2016-10-22] MEDS ORDERED: GABAPENTIN 600 MG TAB PO SCH (18:00)
[2016-10-23] VITALS (67 sets, daily range): BP systolic 82–120; BP diastolic 47–90; PULSE 60–93; TEMP 37–37.4; O2SAT 90–100
[2016-10-23] MEDS: AMPICILLIN/SULBACTAM SOD INJ 3,000 MG in SODIUM CHLORIDE 0.9% 100ML 100 ML IV SCH ×5 (00:57→23:33)
[2016-10-23] MEDS: PROPOFOL IV EMULSION 10 MG/ML 100 ML VIAL IV SCH ×2 (00:58→13:43)
[2016-10-23] MEDS: FENTANYL 1250MCG/250ML NSS 250 ML IV PRN ×2 (01:03→13:44)
[2016-10-23] MEDS: MIDAZOLAM 125MG/250ML D5W 250 ML IV PRN ×3 (01:04→23:59)
[2016-10-23 06:11] LABS: HEMATOCRIT 28.4 % (42-52); MEAN CELL VOLUME 95.6 fL (80-100); MEAN CORPUSCULAR HEMOGLOBIN 32.7 pg (25-34); MEAN CORPUSCULAR HGB CONC 34.2 g/dl (32-36); RED BLOOD COUNT 2.97 M/uL (4.7-6.1); WHITE BLOOD COUNT 4.03 K/uL (4.8-10.8)
[2016-10-23 06:16] LABS: MEAN PLATELET VOLUME 10.5 fL (7.4-10.4); PLATELET COUNT 73 K/uL (130-400)
[2016-10-23 06:42] LABS: BUN/CREATININE RATIO 7.4 (10-20); CALCIUM 7.7 mg/dl (8.5-10.1); CREATININE 0.44 mg/dl (0.60-1.40); MAGNESIUM 2.2 mg/dl (1.8-2.4); POTASSIUM 3.3 mmol/L (3.5-5.1)
[2016-10-23 06:54] LABS: ALB/GLOB RATIO 0.7 (0.9-2); PHOSPHORUS 3.8 mg/dl (2.5-4.9)
--- NOTE | 2016-10-23 07:28 | DIAGNOSTIC IMAGING REPORT ---
CHEST ONE VIEW PORTABLE CLINICAL HISTORY: intubation tube position COMPARISON STUDY: 10/22/2016 FINDINGS: Endotracheal tube 4 cm above the [place]. Slightly progressive density right base. Left lung is clear. IMPRESSION: Endotracheal tube 4 cm above the [place]. Mildly progressive consolidative/effusion-type change right base. Electronically signed by: Keo Muir M.D. 10/23/2016 7:26 AM Dictated Date/Time: 10/23/2016 7:25 AM
[2016-10-23] MEDS: MAGNESIUM OXIDE 400 MG TAB PO SCH ×2 (07:30→21:34)
[2016-10-23] MEDS: POT PHOSPHATE MONOBASIC W/ SOD TAB PO SCH (07:31)
[2016-10-23] MEDS: MULTIVITAMINS W/MINERALS 15ML UDP PO SCH (07:31)
[2016-10-23] MEDS: PROPRANOLOL HCL 10 MG TAB PO SCH ×3 (07:32→21:34)
[2016-10-23] MEDS: THIAMINE HCL INJ 500 MG in SODIUM CHLORIDE 0.9% 100ML 100 ML IV SCH (07:36)
[2016-10-23] MEDS: AZITHROMYCIN IV 250 MG in DEXTROSE 5% 250ML 250 ML IV SCH (07:36)
[2016-10-23] MEDS ORDERED: POTASSIUM CHLR 20 MEQ / WTR 20 MEQ in PREMIXED WATER 100 ML IV ONE (07:45)
[2016-10-23 07:56] LABS: BASO % 0.5 %; BASO ABS # 0.02 K/uL (0-0.2); COMPLETE YES; EOS % 1.5 %; IG% 0.2 %; LYMPH % 30.5 %; LYMPH ABS # 1.23 K/uL (1.2-3.4); MONO % 15.1 %; NEUT % 52.2 %
--- NOTE | 2016-10-23 07:57 | ELECTROENCEPHALOGRAPH REPORT ---
REQUESTING: I think Dr. Patel in the unit is requesting this. CLINICAL DIAGNOSIS: Possible alcohol withdrawal seizures and delirium tremens. ELECTROENCEPHALOGRAM DIAGNOSIS: Essentially normal during wakefulness. DESCRIPTION OF TRACING: This EEG was done in the unit on a patient who has received paralytics and a very little spontaneous movement recorded by video analysis. Under these conditions, there is evidence for a background rhythm in the alpha range of up to 9-10 Hz of maximum frequency and of up to 30 microvolts of maximum amplitude. This is maximum posterior head regions and bilaterally symmetrical. Polymorphic mid to slightly lower frequency of modest amplitude theta activity is seen over all head regions without clear focal or regional predominance. Anterior head region maximum bilaterally symmetrical, low voltage fast activity is present. At no time, during the tracing is there evidence for potentially epileptogenic activity in the form of polyspike or spike wave bursts, focal sharp waves or focal spikes. Photic stimulation provoked some minimal driving response without a photomyogenic or photoparoxysmal component. INTERPRETATION: This EEG is essentially normal during wakefulness without evidence for a focal or generalized encephalopathy and without evidence for potentially epileptogenic activity.
[2016-10-23] MEDS: POTASSIUM CHLR 10MEQ / WTR IV SCH ×2 (08:06→08:50)
[2016-10-23] MEDS ORDERED: POTASSIUM CHLORIDE 20 MEQ/15 ML UDC PO STA (08:55)
[2016-10-23] MEDS ORDERED: DOCUSATE SODIUM 100 MG CAP PO SCH (09:00)
[2016-10-23] MEDS: CLONIDINE HCL 0.1 MG TAB PO SCH (09:00)
[2016-10-23] MEDS ORDERED: ERGOCALCIFEROL 50,000 INTER.UNIT CAP PO ONE (09:00)
[2016-10-23] MEDS ORDERED: PEPTAMEN INTENSE VHP 1000ML BAG OG PRN (09:15)
[2016-10-23] MEDS: LORAZEPAM 2 MG/ML 1 ML VIAL IV SCH ×4 (09:21→21:39)
[2016-10-23] MEDS: CHLORHEXIDINE GLUCONATE 0.12% 15 ML UDP PO SCH ×2 (09:23→21:34)
[2016-10-23] MEDS: DOCUSATE SODIUM 100 MG/10 ML UDC PO SCH ×2 (09:48→21:33)
[2016-10-23] MEDS: PANTOprazole INJ 40 MG in SYRINGE 0 ML IV SCH (09:48)
--- NOTE | 2016-10-23 10:34 | CRITICAL CARE PROGRESS NOTE ---
DATE: 10/23/2016 HISTORY OF PRESENT ILLNESS: This is a 56-year-old patient with history of alcohol abuse who was admitted to the hospital on October 20 after presenting to the Emergency Department with tremors. He required endotracheal intubation secondary to agitation and is presently on fentanyl, Versed and propofol infusions. There were no acute events overnight and his care was discussed in detail on multidisciplinary rounds today. There has been no reported seizure-like activity. He has not had a bowel movement since this admission. PHYSICAL EXAMINATION: VITAL SIGNS: Maximum temperature is 37.4, heart rate 65-80, respiratory rate 16, blood pressure 92-105/60s-70s, oxygen saturation 98%. 24-hour fluid balance positive 3.6 liters. VENTILATOR SETTINGS: Assist control rate 16, tidal volume 500, FIO2 30%, PEEP 5. GENERAL: He will open his eyes and pull at his restraints bilaterally with the upper extremities, but not follow commands. He will move his lower extremities spontaneously but not to command. LUNGS: Have coarse breath sounds bilaterally. No rales, rhonchi or wheezes. HEART: Regular rate and rhythm. CHEST: Symmetric expansion. ABDOMEN: Firm, nontender, nondistended, hypoactive bowel sounds. EXTREMITIES: With trace to 1+ upper extremity edema. No lower extremity edema. SCDs are in place on bilateral lower extremities. SKIN: Shows scattered ecchymosis of varying ages. LABORATORY DATA: White blood cell count 4.03, hemoglobin 9.7, hematocrit 28.4, platelets 73. Sodium 143, potassium 3.3, chloride 108, CO2 32, BUN 3, creatinine 0.44. Blood sugar 106, calcium 7.7, total bilirubin 0.7, AST 38, alkaline phosphatase 131. MEDICATIONS AND INFUSIONS: Tylenol, Unasyn day 2, Azithromycin day 2, chlorhexidine, clonidine, Colace, Peptamen 1.5 at 65 mL per hour, fentanyl infusion, p.r.n. fentanyl, folic acid, Ativan, magnesium oxide, Versed, multivitamin, Zofran, Protonix, MiraLax, potassium, propofol, propranolol, thiamine. Microbiology data was reviewed. IMAGING: Portable chest x-ray from this morning was reviewed as was its report. There is a developing right basilar infiltrate. IMPRESSION: 1. Alcohol withdrawal syndrome requiring multiple sedative medications and necessitating endotracheal intubation. His tachycardia has improved. 2. Developing aspiration pneumonia, now on Unasyn and azithromycin. S/P bronchoscopy. 3. Acute respiratory failure secondary to #1. 4. Mild elevation of transaminases, likely secondary to alcohol, continues to improve. 5. Vitamin D deficiency. 6. History of tobacco use. 7. Thrombocytopenia, improving, likely secondary to bone marrow suppression. 8. Anemia without signs of active bleeding again likely secondary to bone marrow suppression. PLAN: 1. Neurologic: discontinue gabapentin and Librium, which were on hold. Begin Ativan 4 mg IV q. 4 hour scheduled. Attempt to wean down the Versed and propofol. 2. Pulmonary: Continue bronchodilators and send sputum culture if he produces any. Look for a window within which we can do a spontaneous breathing trial today presuming we can decrease his sedative drips. 3. Cardiovascular: Continue Catapres and propranolol. PICC line evaluation. 4. Renal: Overall fluid balance is markedly positive for admission. Lasix 20 mg IV x1. Replete electrolytes. 5. Heme: Continue to follow blood counts and watch for signs of bleeding. SCDs for DVT prophylaxis due to thrombocytopenia. 6. GI tube feeds are being adjusted and changed to Peptamen VHS per dietary recommendations. Continue GI prophylaxis with proton pump inhibitor. He is getting supplemental vitamins including vitamin D. MiraLax and Colace were added today. His care was discussed with his attending physician, Dr. Canlaes. Please call me with any questions or concerns. Critical care time 40 minutes. DURAN
[2016-10-23 11:52] LABS: ISTAT ALLEN TEST Pass; ISTAT ARTERIAL BLOOD GAS HCO3 26 meq/L (19-24); ISTAT ARTERIAL BLOOD GAS PCO2 45 mmHg (35-46); ISTAT ARTERIAL BLOOD GAS PO2 86 mmHg (80-95); ISTAT ARTERIAL BLOOD GAS pH 7.37 (7.35-7.45); ISTAT CARBON DIOXIDE 27 mEq/l (24-31); ISTAT DELIVERY SYSTEM Ventilator; ISTAT FIO2 30 %; ISTAT PEEP 5; ISTAT RATE 16; ISTAT SITE L Radial; VE 8.1; Vt 500
[2016-10-23] MEDS ORDERED: FUROSEMIDE 40 MG/4 ML VIAL IV STA (13:25)
[2016-10-23] MEDS: POLYETHYLENE (MIRALAX) 17 GM PACK PO SCH (13:40)
[2016-10-23] MEDS ORDERED: FUROSEMIDE 40 MG/4 ML VIAL ONE (15:29)
--- NOTE | 2016-10-23 18:27 | Progress Note ---
Medicine Progress Note Date & Time of Visit: October 23, 2016 at 18:12. Subjective Pt was seen and examined Still on the vent support Open eyes On versed and propofol VS stable Objective Last 8 Hrs Date Time Temp Pulse Resp B/P Pulse Ox O2 Delivery O2 Flow Rate FiO2 10/23/16 16:00 30 10/23/16 16:00 98 Mechanical Ventilator 30 10/23/16 15:45 37.2 67 16 107/72 99 Mechanical Ventilator 30 10/23/16 15:30 37.1 69 16 113/77 100 10/23/16 15:15 37.1 63 16 110/71 100 10/23/16 15:00 37.0 69 16 110/72 100 10/23/16 14:45 37.0 65 16 113/76 100 10/23/16 14:30 37.0 60 16 112/77 100 10/23/16 14:22 30 10/23/16 14:15 37.0 62 16 112/74 100 Mechanical Ventilator 30 10/23/16 14:00 37.0 62 16 107/71 100 10/23/16 13:45 37.0 62 16 108/73 100 10/23/16 13:30 37.1 64 16 110/71 99 10/23/16 13:15 37.1 63 16 99 10/23/16 13:00 37.2 64 16 99 10/23/16 12:45 37.2 68 16 98 10/23/16 12:30 37.2 75 16 97 10/23/16 12:15 37.2 69 16 97 Mechanical Ventilator 30 10/23/16 12:00 37.3 70 16 97/71 97 10/23/16 12:00 97 Mechanical Ventilator 30 10/23/16 12:00 30 10/23/16 11:45 37.3 70 16 96/71 97 10/23/16 11:30 37.3 70 16 94/65 97 10/23/16 11:15 37.3 75 16 91/65 97 10/23/16 11:01 37.3 72 16 90/66 96 10/23/16 11:00 37.3 73 16 97 10/23/16 10:45 37.3 75 16 96 10/23/16 10:30 37.2 93 13 120/90 99 10/23/16 10:15 37.1 73 17 92/64 98 Physical Exam: General- sedated, on vent support Head- atraumatic Eyes- PERRL ENT- Intubated Neck- supple, no JVD Lungs- CTA, No wheezing Heart- tachycardia, no murmur Abdomen- normal bowel sounds, soft Extremities- no pretibial edema Neuro- sedated, open eyes Skin- warm & dry Laboratory Results: Last 24 Hours Test 10/23/16 05:50 10/23/16 11:39 10/23/16 18:08 White Blood Count 4.03 K/uL Red Blood Count 2.97 M/uL Hemoglobin 9.7 g/dL Hematocrit 28.4 % Mean Corpuscular Volume 95.6 fL Mean Corpuscular Hemoglobin 32.7 pg Mean Corpuscular Hemoglobin Concent 34.2 g/dl Platelet Count 73 K/uL Mean Platelet Volume 10.5 fL Neutrophils (%) (Auto) 52.2 % Lymphocytes (%) (Auto) 30.5 % Monocytes (%) (Auto) 15.1 % Eosinophils (%) (Auto) 1.5 % Basophils (%) (Auto) 0.5 % Neutrophils # (Auto) 2.10 K/uL Lymphocytes # (Auto) 1.23 K/uL Monocytes # (Auto) 0.61 K/uL Eosinophils # (Auto) 0.06 K/uL Basophils # (Auto) 0.02 K/uL RDW Standard Deviation 45.7 fL RDW Coefficient of Variation 13.1 % Immature Granulocyte % (Auto) 0.2 % Immature Granulocyte # (Auto) 0.01 K/uL Sodium Level 143 mmol/L Potassium Level 3.3 mmol/L Chloride Level 108 mmol/L Carbon Dioxide Level 32 mmol/L Anion Gap 3.0 mmol/L Blood Urea Nitrogen 3 mg/dl Creatinine 0.44 mg/dl Est Creatinine Clear Calc Drug Dose 217.1 ml/min Estimated GFR () 149.0 Estimated GFR (Non- 128.6 BUN/Creatinine Ratio 7.4 Random Glucose 91 mg/dl Calcium Level 7.7 mg/dl Phosphorus Level 3.8 mg/dl Magnesium Level 2.2 mg/dl Total Bilirubin 0.7 mg/dl Aspartate Amino Transf (AST/SGOT) 38 U/L Alanine Aminotransferase (ALT/SGPT) 55 U/L Alkaline Phosphatase 131 U/L Total Protein 5.8 gm/dl Albumin 2.4 gm/dl Globulin 3.4 gm/dl Albumin/Globulin Ratio 0.7 Procalcitonin 0.12 ng/ml Blood Gas Sample Site L Radial Bedside Blood Gas pH (LAB) 7.37 Bedside Blood Gas pCO2 (LAB) 45 mmHg Bedside Blood Gas pO2 (LAB) 86 mmHg Bedside Blood Gas HCO3 (LAB) 26 meq/L Bedside Blood Gas Total CO2 27 mEq/l Bedside Blood Gas Base Excess (LAB) 1.0 meq/L Bedside Blood Gas O2 Saturation 96.0 % Kiran Test Pass Oxygen Delivery Device Ventilator Bedside Oxygen Rate (breaths/min) 16 Blood Gas Minute Ventilation 8.1 Bedside FiO2 30 % Blood Gas Tidal Volume 500 Blood Gas PEEP 5 Date/Time Source Procedure Growth Status 10/23/16 13:15 Urine,Catheterized Urine Culture Pending Received Assessment & Plan DELIRIUM TREMENS -Day 3 in the ICU intubated on vent support -On versed and propofol drip -On alcohol withdrawal protocol with gabapentin and Librium -emergency service worker on board for management -Continue thiamine, Folic acid and IVF -Consider alcohol rehab once discharge - weaning trial - Will give lasix 20mg x1 -Plan to titrate off sedation - Ativan 4mg IV q4hr -Gabapentin and Librium d/c - EEG done showed no seizure activity PNEUMONIA Mostly aspiration pneumonia CXR showed Progression of bibasilar opacities, right greater than left Procalcitonin normal, afebrile, no leukocytosis Continue Unasyn and Zithromax had a bronch done 10/22 Bronchial washings sent for culture and Gram stain, cx growth normal amish ( fungal elements, and AFB stain Pending) TRANSAMINITIS -likely secondary to alcohol abuse -Continue trending down -Hepatitis B and C negative -continue monitor liver enzymes - stable THROMBOCYTOPENIA -likely secondary to alcohol abuse -platelet improved from 35 to 50-->73 today -No signs of bleeding -avoid anticoagulation -monitor CBC ELEVATED LACTATE -Due to alcohol intoxication on admission -no signs of infection, procalcitonin negative, blood cx no growth ELEVATED CK LEVEL Continue IVF HYPOKALEMIA -K replaced -continue IVF with K -Moniotor BMP TOBACCO ABUSE -Nicotine patch ordered DVT PROPHYLAXIS: SCDs RE: thrombocytopenia CODE STATUS: FULL CODE Consultants: MEDICAL DERMATOLOGIST Procedures: Bronchoscopy Current Inpatient Medications: Current Inpatient Medications Medications (Trade) Dose Ordered Sig/Rica Route Start Time Stop Time Status Last Admin Dose Admin Acetaminophen (Tylenol Tab) 650 mg Q4H PRN PO 10/20/16 16:00 11/19/16 15:59 Ondansetron HCl (Zofran Inj) 4 mg Q6H PRN IV 10/20/16 16:00 11/19/16 15:59 10/20/16 19:31 4 MG Lorazepam (Ativan Inj) PRN Dosing -Active Protocol Q1H PRN IV 10/20/16 16:00 11/19/16 15:59 10/20/16 16:57 2 MG Propofol 1 dose 1 dose UD IV 10/20/16 19:10 10/23/16 19:09 10/23/16 13:43 1 DOSE Thiamine HCl/ Sodium Chloride (Vitamin B-1 Inj/ Nss 100ml) 105 ml @ 208 mls/hr QAM IV 10/21/16 09:00 10/25/16 08:59 10/23/16 07:36 208 MLS/HR Ioversol 100 ml 100 ml UD PRN IV 10/20/16 19:15 10/24/16 19:14 Thiamine HCl 100 mg/Syringe 10 ml @ 2 mls/min DAILY IV 10/25/16 09:00 11/24/16 08:59 Pantoprazole Sodium/Syringe (Protonix Inj/ Syringe) 10 ml @ 5 mls/min DAILY@11 IV 10/21/16 11:00 11/20/16 10:59 10/23/16 09:48 5 MLS/MIN Multivitamins Therapeutic (Cerovite Liquid) 15 ml QAM PO 10/21/16 09:00 11/20/16 08:59 10/23/16 07:31 15 ML Folic Acid (Folvite Tab) 1 mg QAM PO 10/21/16 09:00 11/20/16 08:59 10/23/16 07:31 1 MG Magnesium Oxide (Mag-Ox Tab) 400 mg BID PO 10/21/16 10:15 11/20/16 10:14 10/23/16 07:30 400 MG Fentanyl Citrate 50 mcg 50 mcg Q2H PRN IV 10/22/16 09:15 11/05/16 09:14 10/22/16 11:51 50 MCG Ampicillin Sodium/ Sulbactam Sodium 3000 mg/Sodium Chloride 108 ml @ 200 mls/hr Q6H IV 10/22/16 12:00 10/29/16 11:29 10/23/16 15:26 200 MLS/HR Azithromycin 250 mg/Dextrose 252.5 ml @ 125 mls/hr DAILY IV 10/23/16 09:00 10/27/16 08:59 10/23/16 07:36 125 MLS/HR Midazolam HCl (Midazolam 125MG/ 250ML D5w) 250 ml @ 0 mls/hr Q0M PRN IV 10/22/16 12:30 11/21/16 12:29 10/23/16 13:44 30 MLS/HR Clonidine HCl (Catapres Tab) 0.2 mg QAM PO 10/23/16 09:00 11/22/16 08:59 10/23/16 09:00 0.2 MG Propranolol HCl 10 mg 10 mg TID PO 10/22/16 14:00 11/21/16 13:59 10/23/16 15:28 10 MG Fentanyl Citrate (Fentanyl Drip 1250MCG/250 Nss) 250 ml @ 0 mls/hr Q0M PRN IV 10/22/16 12:30 11/05/16 12:29 10/23/16 13:44 30 MLS/HR Polyethylene (Miralax Powder Packet) 17 gm QAM PO 10/23/16 09:00 11/22/16 08:59 10/23/16 13:40 17 GM Chlorhexidine Gluconate (Peridex Oral Soln 15ML Udp) 15 ml BID PO 10/23/16 09:00 11/22/16 08:59 10/23/16 09:23 15 ML Lorazepam (Ativan Inj) 4 mg Q4H IV 10/23/16 09:15 11/22/16 09:14 10/23/16 15:20 4 MG Docusate Sodium (coLACE SYRUP) 100 mg BID PO 10/23/16 09:00 11/22/16 08:59 10/23/16 09:48 100 MG Furosemide (Lasix Inj) 20 mg ONE IV 10/23/16 21:00 11/22/16 20:59 UNV
[2016-10-23 19:47] LABS: BUN/CREATININE RATIO 9.5 (10-20); CALCIUM 7.8 mg/dl (8.5-10.1); CREATININE 0.46 mg/dl (0.60-1.40); MAGNESIUM 2.2 mg/dl (1.8-2.4); POTASSIUM 3.9 mmol/L (3.5-5.1)
[2016-10-23] MEDS ORDERED: FUROSEMIDE 40 MG/4 ML VIAL IV ONE (21:00)
[2016-10-23] MEDS ORDERED: CHLORDIAZEPOXIDE 10 MG CAP PO SCH (22:00)
[2016-10-23] MEDS: PEPTAMEN INTENSE VHP 1000ML BAG NG PRN (23:06)
[2016-10-24] VITALS (30 sets, daily range): BP systolic 83–115; BP diastolic 58–76; PULSE 68–90; TEMP 36.4–37.8; O2SAT 93–99
[2016-10-24] MEDS ORDERED: PROPOFOL IV EMULSION 10 MG/ML 100 ML VIAL IV ONE (00:09)
[2016-10-24] MEDS ORDERED: NURSING VERBAL MED ORDER ONE ×2 (00:15→20:45)
[2016-10-24] MEDS: LORAZEPAM 2 MG/ML 1 ML VIAL IV SCH ×6 (01:53→19:54)
[2016-10-24] MEDS: FENTANYL 1250MCG/250ML NSS 250 ML IV PRN ×2 (04:07→15:51)
[2016-10-24] MEDS: AMPICILLIN/SULBACTAM SOD INJ 3,000 MG in SODIUM CHLORIDE 0.9% 100ML 100 ML IV SCH ×3 (05:30→18:10)
[2016-10-24] MEDS: PROPOFOL IV EMULSION 10 MG/ML 100 ML VIAL IV SCH ×3 (05:31→22:11)
[2016-10-24 05:56] LABS: HEMATOCRIT 30.5 % (42-52); MEAN CELL VOLUME 95.3 fL (80-100); MEAN CORPUSCULAR HEMOGLOBIN 32.2 pg (25-34); MEAN CORPUSCULAR HGB CONC 33.8 g/dl (32-36); MEAN PLATELET VOLUME 10.1 fL (7.4-10.4); PLATELET COUNT 99 K/uL (130-400); WHITE BLOOD COUNT 4.41 K/uL (4.8-10.8)
[2016-10-24 06:34] LABS: BUN/CREATININE RATIO 13.1 (10-20); CALCIUM 8.1 mg/dl (8.5-10.1); CREATININE 0.46 mg/dl (0.60-1.40); POTASSIUM 3.6 mmol/L (3.5-5.1)
[2016-10-24 06:40] LABS: ALB/GLOB RATIO 0.7 (0.9-2); MAGNESIUM 2.1 mg/dl (1.8-2.4)
[2016-10-24 06:47] LABS: BASO % 0.2 %; BASO ABS # 0.01 K/uL (0-0.2); COMPLETE YES; IG% 0.7 %; LARGE PLATELETS 1+; LYMPH % 23.4 %; LYMPH ABS # 1.03 K/uL (1.2-3.4); MONO % 16.1 %; NEUT % 57.6 %
--- NOTE | 2016-10-24 07:04 | DIAGNOSTIC IMAGING REPORT ---
CHEST ONE VIEW PORTABLE CLINICAL HISTORY: f/u infiltrate, check ETT position tube position COMPARISON STUDY: 10/23/2016 FINDINGS: Endotracheal tube 4.5 cm above the [place]. Right and to a lesser extent left basilar infiltrative/atelectatic change. This is unaltered. Upper lungs are clear. IMPRESSION: Unchanging basilar infiltrative/atelectatic change. Endotracheal tube 4.5 cm above the [place]. Electronically signed by: Keo Muir M.D. 10/24/2016 7:02 AM Dictated Date/Time: 10/24/2016 7:01 AM
[2016-10-24] MEDS ORDERED: BISACODYL 10 MG SUPP PR ONE (08:15)
[2016-10-24] MEDS ORDERED: FUROSEMIDE 40 MG/4 ML VIAL IV ONE (08:15)
[2016-10-24] MEDS ORDERED: POTASSIUM CHLORIDE 20 MEQ/15 ML UDC PO ONE (08:15)
[2016-10-24] MEDS: THIAMINE HCL INJ 500 MG in SODIUM CHLORIDE 0.9% 100ML 100 ML IV SCH (08:31)
[2016-10-24] MEDS: DOCUSATE SODIUM 100 MG/10 ML UDC PO SCH ×2 (08:32→20:44)
[2016-10-24] MEDS: MULTIVITAMINS W/MINERALS 15ML UDP PO SCH (08:32)
[2016-10-24] MEDS: AZITHROMYCIN IV 250 MG in DEXTROSE 5% 250ML 250 ML IV SCH (08:32)
[2016-10-24] MEDS: POLYETHYLENE (MIRALAX) 17 GM PACK PO SCH (08:32)
[2016-10-24] MEDS: CLONIDINE HCL 0.1 MG TAB PO SCH (08:32)
[2016-10-24] MEDS: PROPRANOLOL HCL 10 MG TAB PO SCH ×3 (08:33→19:48)
[2016-10-24] MEDS: MAGNESIUM OXIDE 400 MG TAB PO SCH ×2 (08:33→20:44)
[2016-10-24] MEDS: CHLORHEXIDINE GLUCONATE 0.12% 15 ML UDP PO SCH ×2 (08:34→20:44)
[2016-10-24] MEDS: MIDAZOLAM 125MG/250ML D5W 250 ML IV PRN ×2 (08:38→18:11)
[2016-10-24] MEDS ORDERED: GABAPENTIN 600 MG TAB PO SCH (09:00)
--- NOTE | 2016-10-24 10:31 | CRITICAL CARE PROGRESS NOTE ---
DATE: 10/24/2016 DATE: 10/24/2016. SUBJECTIVE: There were no acute events overnight. The patient's care was discussed in detail on multidisciplinary rounds today. He remains on a fentanyl infusion at 100 mcg per hour, Versed at 15 mg per hour and propofol at 25 mcg per kilogram per minute. Per his nurse he has periods when he will arouse and is agitated at times. He is having a small amount of pale yellow secretions from the endotracheal tube. He has not had a bowel movement since admission. PHYSICAL EXAMINATION: VITAL SIGNS: Maximum temperature 37.8, heart rate 74-90, respiratory rate 16-24, blood pressure 89-109/40s to 70s, oxygen saturation 96%. 24-hour fluid balance positive 848 mL. VENTILATOR SETTINGS: Assist control rate 16, tidal volume 500, FIO2 30%, PEEP 5. NEUROLOGICAL: He was initially unresponsive to sternal rub. Eventually, he would open his eyes and pull at the restraint, but did not follow any commands. He moves all 4 extremities spontaneously. He does not nod his head to any questions. LUNGS: Coarse bilaterally. No rales, rhonchi or wheezes. HEART: Regular rate and rhythm. ABDOMEN: Firm, nontender, nondistended, active bowel sounds. EXTREMITIES: Warm with adequate capillary refill. The bilateral upper extremities have 1+ edema particularly in the hands. SKIN EXAMINATION: Shows scattered ecchymosis of varying ages. LABORATORY DATA: White blood cell count 4.41, hemoglobin 10.3, hematocrit 30.5, platelets 99. Sodium 142, potassium 3.6, chloride 106, CO2 34, BUN 6, creatinine 0.46, albumin 2.4, alkaline phosphatase 126. MEDICATIONS AND INFUSIONS: Acetaminophen, Unasyn day 3, azithromycin day 3, chlorhexidine, clonidine, Colace, Peptamen VHP, fentanyl infusion, fentanyl p.r.n., folic acid, Ativan p.r.n., Ativan scheduled 4 mg IV q. 4 hours, magnesium oxide, Versed infusion, multivitamin, Zofran, Protonix, MiraLax, propofol, propranolol, thiamine. IMAGING: Portable chest x-ray from this morning was reviewed as was its report. There are bibasilar infiltrates. Endotracheal tube is 4.5 cm above the [place]. MICROBIOLOGY: Fungal acid fast bacilli. Cultures are pending. BAL culture final results scant normal amish. IMPRESSIONS: 1. Alcohol withdrawal syndrome with agitated delirium. 2. Acute respiratory failure secondary to #1 and the need to heavily sedate this patient. 3. Probable aspiration pneumonia, status post bronchoscopy, BAL results for bacterial culture unrevealing. 4. Elevated liver enzymes and transaminases, improved, likely secondary to alcohol use. Thrombocytopenia, resolved. Again, this is likely secondary to liver disease. 5. Vitamin D deficiency. PLAN: NEUROLOGIC: Increase scheduled Ativan to 6 mg IV q. 4 hours and begin to wean the fentanyl to 75 mcg per hour. He has a p.r.n. fentanyl dose should he need it. Consider changing to Precedex from the propofol. Consider Haldol p.r.n. PULMONARY: Continue to treat for probable aspiration pneumonia and attempt a weaning trial today. Keep head of bed at 30 degrees when possible. INFECTIOUS DISEASE: Continue Unasyn for 7 days. Azithromycin for 5 days. Continue to follow culture data. GASTROINTESTINAL: Continue Peptamen VHS at goal rate of 65 mL per hour. He is getting a Dulcolax suppository as his bowel regimen is escalated. RENAL: He has markedly positive I's and O's for his stay. Lasix 40 mg x1. Replete electrolytes and check PRP later today. Goal of at least 1.5 liters negative for 24-hour fluid balance. HEMATOLOGY: He has SCDs for DVT prophylaxis. I will begin subcutaneous heparin today or tomorrow. I discussed his care in detail with his sister yesterday. She gave consent for a PICC line. Please call me with any questions or concerns. Critical care time 40 minutes.
[2016-10-24] MEDS: PANTOprazole INJ 40 MG in SYRINGE 0 ML IV SCH (12:40)
--- NOTE | 2016-10-24 13:27 | Progress Note ---
Internal Med Progress Note Date of Service: October 24, 2016. Provider Documentation: SUBJECTIVE: The Patient was seen and examined Remains ventilated Occasional agitations on reducing the pain medications OBJECTIVE: Vital Signs-as noted below Exam: General-Sedated on Vent Eyes-closed ENT-Normal Neck-supple Lungs-Clear to auscultate bilaterally Minimal crackles at the bases Heart-Regular,no murmur appreciated Abdomen-Benign,no masses,bowel sound present Extremities-No edema Neuro-AAOx3 Lab data as noted below. ASSESSMENT & PLAN: DELIRIUM TREMENS -secondary to Alcohol abuse -Day 4 in the ICU intubated on vent support -On versed and propofol drip -On alcohol withdrawal protocol -Continue thiamine, Folic acid and IVF -Failed weaning trial -Ventilator care as per [employer] - Ativan 4mg IV q4hr - EEG done showed no seizure activity PNEUMONIA Likely secondary to Aspiration CXR showed Progression of bibasilar opacities, right greater than left Continue Unasyn and Zithromax Has had a bronch done 10/22 Bronchial washings sent for culture and Gram stain, cx growth normal amish ( fungal elements, and AFB stain Pending) Elevated Liver Enzymes -likely secondary to alcohol abuse -Hepatitis B and C negative -continue monitor liver enzymes-improving THROMBOCYTOPENIA -secondary to Alcohol abuse and Cirrhosis -platelet improved from 35 to 50-->73 today -no pharmacologic anticoagulation -Improved to 99 ELEVATED CK LEVEL Likely from recurrent trauma Continue IVF Electrolytes Imbalance Supplement and Monitor TOBACCO ABUSE -Nicotine patch ordered DVT PROPHYLAXIS: SCDs RE: thrombocytopenia Will consider Heparin irf platelet goes >100 CODE STATUS: FULL CODE Consultants: [employer]S PICKER Procedures: Bronchoscopy Will update Family members when available Vital Signs: Date Time Temp Pulse Resp B/P Pulse Ox O2 Delivery O2 Flow Rate FiO2 10/24/16 11:20 30 10/24/16 10:01 37.1 79 16 86/62 94 Mechanical Ventilator 30 10/24/16 08:00 30 10/24/16 08:00 37.4 70 16 104/71 97 Mechanical Ventilator 30 10/24/16 08:00 Mechanical Ventilator 30 10/24/16 08:00 Mechanical Ventilator 30 10/24/16 08:00 30 10/24/16 06:00 74 16 85/59 96 Mechanical Ventilator 30 10/24/16 05:30 30 10/24/16 04:00 37.8 74 16 104/69 97 Mechanical Ventilator 30 10/24/16 04:00 30 10/24/16 04:00 Mechanical Ventilator 30 10/24/16 02:00 76 16 88/62 97 Mechanical Ventilator 30 10/24/16 01:45 30 10/24/16 00:01 37.5 90 24 115/74 93 Mechanical Ventilator 30 10/23/16 23:59 30 10/23/16 23:59 Mechanical Ventilator 30 10/23/16 22:40 30 10/23/16 22:00 37.4 77 16 90/63 98 Mechanical Ventilator 30 10/23/16 20:53 30 10/23/16 20:00 37.2 70 16 89/61 98 Mechanical Ventilator 30 10/23/16 20:00 Mechanical Ventilator 30 10/23/16 20:00 30 10/23/16 18:30 37.2 73 16 88/56 96 10/23/16 18:16 37.1 74 16 109/47 98 10/23/16 18:15 37.0 65 16 98 10/23/16 18:00 37.2 66 16 97/67 97 Mechanical Ventilator 30 10/23/16 17:45 37.2 69 16 94/62 96 10/23/16 17:30 37.3 71 16 89/55 96 10/23/16 17:15 37.3 75 16 92/60 96 10/23/16 17:00 37.2 78 16 95/59 97 10/23/16 16:45 37.2 84 17 105/70 99 10/23/16 16:30 37.3 78 16 99/62 99 10/23/16 16:15 37.2 74 16 101/64 99 10/23/16 16:00 37.2 74 16 95/65 99 10/23/16 16:00 30 10/23/16 16:00 98 Mechanical Ventilator 30 10/23/16 15:45 37.2 67 16 107/72 99 Mechanical Ventilator 30 10/23/16 15:30 37.1 69 16 113/77 100 10/23/16 15:15 37.1 63 16 110/71 100 10/23/16 15:00 37.0 69 16 110/72 100 10/23/16 14:45 37.0 65 16 113/76 100 10/23/16 14:30 37.0 60 16 112/77 100 10/23/16 14:22 30 10/23/16 14:15 37.0 62 16 112/74 100 Mechanical Ventilator 30 10/23/16 14:00 37.0 62 16 107/71 100 10/23/16 13:45 37.0 62 16 108/73 100 10/23/16 13:30 37.1 64 16 110/71 99 Lab Results: Results Past 24 Hours Test 10/23/16 18:24 10/24/16 05:36 Range/Units Sodium Level 142 142 136-145 mmol/L Potassium Level 3.9 3.6 3.5-5.1 mmol/L Chloride Level 107 106 98-107 mmol/L Carbon Dioxide Level 33 34 21-32 mmol/L Anion Gap 2.0 2.0 3-11 mmol/L Blood Urea Nitrogen 4 6 7-18 mg/dl Creatinine 0.46 0.46 0.60-1.40 mg/dl Est Creatinine Clear Calc Drug Dose 207.6 222.8 ml/min Estimated GFR () 146.3 146.3 Estimated GFR (Non- 126.2 126.2 BUN/Creatinine Ratio 9.5 13.1 10-20 Random Glucose 99 88 70-99 mg/dl Calcium Level 7.8 8.1 8.5-10.1 mg/dl Magnesium Level 2.2 2.1 1.8-2.4 mg/dl White Blood Count 4.41 4.8-10.8 K/uL Red Blood Count 3.20 4.7-6.1 M/uL Hemoglobin 10.3 14.0-18.0 g/dL Hematocrit 30.5 42-52 % Mean Corpuscular Volume 95.3 80-100 fL Mean Corpuscular Hemoglobin 32.2 25-34 pg Mean Corpuscular Hemoglobin Concent 33.8 32-36 g/dl Platelet Count 99 130-400 K/uL Mean Platelet Volume 10.1 7.4-10.4 fL Neutrophils (%) (Auto) 57.6 % Lymphocytes (%) (Auto) 23.4 % Monocytes (%) (Auto) 16.1 % Eosinophils (%) (Auto) 2.0 % Basophils (%) (Auto) 0.2 % Neutrophils # (Auto) 2.54 1.4-6.5 K/uL Lymphocytes # (Auto) 1.03 1.2-3.4 K/uL Monocytes # (Auto) 0.71 0.11-0.59 K/uL Eosinophils # (Auto) 0.09 0-0.5 K/uL Basophils # (Auto) 0.01 0-0.2 K/uL RDW Standard Deviation 45.7 36.4-46.3 fL RDW Coefficient of Variation 13.0 11.5-14.5 % Immature Granulocyte % (Auto) 0.7 % Immature Granulocyte # (Auto) 0.03 0.00-0.02 K/uL Large Platelets 1+ Phosphorus Level 4.0 2.5-4.9 mg/dl Total Bilirubin 0.8 0.2-1 mg/dl Aspartate Amino Transf (AST/SGOT) 36 15-37 U/L Alanine Aminotransferase (ALT/SGPT) 52 12-78 U/L Alkaline Phosphatase 126 45-117 U/L Total Protein 5.8 6.4-8.2 gm/dl Albumin 2.4 3.4-5.0 gm/dl Globulin 3.4 2.5-4.0 gm/dl Albumin/Globulin Ratio 0.7 0.9-2
[2016-10-24] MEDS: ALBUTEROL HFA 8 GM INHALER INH SCH ×2 (15:37→19:20)
[2016-10-24 15:47] LABS: BUN/CREATININE RATIO 14.4 (10-20); CALCIUM 8.1 mg/dl (8.5-10.1); CREATININE 0.5 mg/dl (0.60-1.40); POTASSIUM 4.2 mmol/L (3.5-5.1)
[2016-10-24] MEDS ORDERED: FUROSEMIDE 40 MG/4 ML VIAL IV SCH (17:30)
[2016-10-24] MEDS: PEPTAMEN INTENSE VHP 1000ML BAG NG PRN (18:09)
[2016-10-24] MEDS: ALBUMIN HUMAN 25% 12.5 GM/50 ML VIAL IV SCH ×3 (21:04→22:10)
[2016-10-25] VITALS (25 sets, daily range): BP systolic 90–172; BP diastolic 60–104; PULSE 62–98; TEMP 36.3–37.3; O2SAT 90–100
[2016-10-25] MEDS: ALBUMIN HUMAN 25% 12.5 GM/50 ML VIAL IV SCH (00:07)
[2016-10-25] MEDS: LORAZEPAM 2 MG/ML 1 ML VIAL IV SCH ×6 (00:07→20:11)
[2016-10-25] MEDS: AMPICILLIN/SULBACTAM SOD INJ 3,000 MG in SODIUM CHLORIDE 0.9% 100ML 100 ML IV SCH ×4 (00:07→17:42)
[2016-10-25] MEDS ORDERED: SODIUM CHLORIDE 0.9% 250ML 250 ML IV SCH (01:00)
[2016-10-25] MEDS: ALBUTEROL HFA 8 GM INHALER INH SCH ×3 (02:46→19:10)
[2016-10-25] MEDS: MIDAZOLAM 125MG/250ML D5W 250 ML IV PRN (04:15)
[2016-10-25 05:50] LABS: BASO % 0.3 %; BASO ABS # 0.01 K/uL (0-0.2); COMPLETE YES; EOS % 2.9 %; HEMATOCRIT 29.8 % (42-52); IG% 0.3 %; LYMPH ABS # 0.79 K/uL (1.2-3.4); MEAN CELL VOLUME 93.7 fL (80-100); MEAN CORPUSCULAR HEMOGLOBIN 32.1 pg (25-34); MEAN CORPUSCULAR HGB CONC 34.2 g/dl (32-36); MONO % 14.9 %; NEUT % 60.6 %; PLATELET COUNT 123 K/uL (130-400); RED BLOOD COUNT 3.18 M/uL (4.7-6.1); WHITE BLOOD COUNT 3.77 K/uL (4.8-10.8)
[2016-10-25 06:25] LABS: BUN/CREATININE RATIO 16.2 (10-20); CALCIUM 7.7 mg/dl (8.5-10.1); CREATININE 0.52 mg/dl (0.60-1.40); MAGNESIUM 2.2 mg/dl (1.8-2.4); PHOSPHORUS 3.5 mg/dl (2.5-4.9); POTASSIUM 3.6 mmol/L (3.5-5.1)
[2016-10-25] MEDS: FENTANYL 1250MCG/250ML NSS 250 ML IV PRN ×2 (06:26→21:25)
--- NOTE | 2016-10-25 07:04 | DIAGNOSTIC IMAGING REPORT ---
CHEST ONE VIEW PORTABLE CLINICAL HISTORY: f/u infiltrate, check ETT tube position COMPARISON STUDY: 10/24/2016 FINDINGS: Endotracheal tube 4 cm above the [place]. Unchanging infiltrative atelectatic change right base. Subtle increase in density medial left base. Mid and upper lungs are considered clear. Central catheters. Vena cava. IMPRESSION: Endotracheal tube 4 cm above the [place]. Unchanging atelectatic/infiltrative change right base. Electronically signed by: Keo Muir M.D. 10/25/2016 7:02 AM Dictated Date/Time: 10/25/2016 7:01 AM
[2016-10-25] MEDS ORDERED: DexMEDEtomidine HCL INJ 200 MCG in SODIUM CHLORIDE 0.9% 50ML 48 ML IV PRN ×2 (08:15→09:45)
[2016-10-25] MEDS: THIAMINE HCL INJ 100 MG in SYRINGE 9 ML IV SCH (08:50)
[2016-10-25] MEDS: DOCUSATE SODIUM 100 MG/10 ML UDC PO SCH ×2 (08:51→20:12)
[2016-10-25] MEDS: CHLORHEXIDINE GLUCONATE 0.12% 15 ML UDP PO SCH ×2 (08:51→20:13)
[2016-10-25] MEDS: MULTIVITAMINS W/MINERALS 15ML UDP PO SCH (08:52)
[2016-10-25] MEDS: POLYETHYLENE (MIRALAX) 17 GM PACK PO SCH (08:52)
[2016-10-25] MEDS: ENOXAPARIN 40 MG/0.4 ML SYR SQ SCH (08:53)
[2016-10-25] MEDS: MAGNESIUM OXIDE 400 MG TAB PO SCH ×2 (08:53→20:12)
[2016-10-25] MEDS: PROPRANOLOL HCL 10 MG TAB PO SCH ×3 (08:53→20:13)
[2016-10-25] MEDS: CLONIDINE HCL 0.1 MG TAB PO SCH (08:54)
[2016-10-25] MEDS: AZITHROMYCIN IV 250 MG in DEXTROSE 5% 250ML 250 ML IV SCH (08:55)
[2016-10-25] MEDS ORDERED: THIAMINE HCL 100 MG/ML 2 ML VIAL IV SCH (09:00)
[2016-10-25] MEDS ORDERED: DexMEDEtomidine IV DRIP IV STA (09:22)
[2016-10-25] MEDS ORDERED: POTASSIUM CHLORIDE 20 MEQ/15 ML UDC PO ONE (10:00)
[2016-10-25] MEDS ORDERED: FUROSEMIDE INJ 20 MG in SYRINGE 0 ML IV ONE (10:00)
[2016-10-25] MEDS: PANTOprazole INJ 40 MG in SYRINGE 0 ML IV SCH (11:03)
--- NOTE | 2016-10-25 12:23 | CRITICAL CARE PROGRESS NOTE ---
DATE: 10/25/2016 SUBJECTIVE: The patient's care was discussed in detail on multidisciplinary rounds today. He remains on fentanyl, Versed and propofol infusions and is having some thick choi sputum. He had a bowel movement last night and received 2 doses of Lasix. He is tolerating his Peptamen tube feeds at goal, which are 65 mL per hour. PHYSICAL EXAMINATION: VITAL SIGNS: Maximum temperature 37.1, heart rate 75-98, respiratory rate 16, blood pressure 89-122/60s-80s, and oxygen saturation 90%-100%. Ventilator settings assist control rate 16, tidal volume 500, FiO2 30%, and PEEP 5. 24-hour fluid balance is -1.6 liters. GENERAL: He will open his eyes and slowly move his upper and lower extremities. He is not purposeful. He will look at me. HEENT: Pupils are round and equal bilaterally. He has an erythematous rash on his forehead, which is macular. LUNGS: Coarse bilaterally with rhonchi on the right. No wheezes. HEART: Regular rate and rhythm. ABDOMEN: Firm and nondistended. Seems nontender. Active bowel sounds. EXTREMITIES: Warm. SCDs in place on the bilateral lower extremities and decreased edema of the hands. LABORATORY DATA: White blood cell count 3.77, hemoglobin 10.2, hematocrit 29.8, and platelets 123. Sodium 138, potassium 3.6, chloride 103, CO2 of 32, BUN 8, creatinine 0.52, blood sugar 167, and calcium 7.7. No new microbiology data. BAL of the right lower lobe, AFB and fungal cultures are still pending. Remainder of cultures shows no growth. Portable chest x-ray from this morning was reviewed and shows unchanging infiltrative change at the right base. MEDICATIONS AND INFUSIONS: Acetaminophen, albuterol, Unasyn day #4, azithromycin day #5, chlorhexidine, clonidine, Colace, Lovenox, Peptamen, fentanyl, folic acid, Ativan scheduled, magnesium oxide, midazolam, multivitamins, Zofran, Protonix, MiraLax, propofol, propranolol, and thiamine. IMPRESSION: 1. Alcohol withdrawal syndrome with agitated delirium. 2. Acute hypoxemic respiratory failure. 3. Aspiration pneumonia. 4. Constipation, improved. 5. History of tobacco use. 6. Alcohol dependence. 7. Thrombocytopenia, resolved. 8. Vitamin D deficiency. PLAN: NEUROLOGIC: Begin Precedex and wean off propofol and then the fentanyl. Consider Haldol p.r.n. PULMONARY: CPAP trial today, keep head of bed at 30 degrees. INFECTIOUS DISEASE: Send a sputum culture, his sputum seems to be worsening. Consider bed percussion, although I think it might make him agitated. Discontinue azithromycin after 5 days. He is getting bronchodilators. GASTROINTESTINAL: Continue tube and bowel regimen. Continue Protonix for GI prophylaxis. RENAL: Lasix 20 mg IV x1 today. HEMATOLOGY: Subcutaneous heparin for DVT prophylaxis. ENDOCRINE: Blood sugars are mildly elevated, check them q. 6 hours. CARDIOVASCULAR: May need to decrease propranolol or clonidine as blood pressure is improving. Overall, he has not made much progress over the past several days. Hopefully, the Precedex will help us to decrease his other sedatives. We may need to consider Haldol. Critical care time 40 minutes. MTDD
[2016-10-25] MEDS: PEPTAMEN INTENSE VHP 1000ML BAG NG PRN (13:37)
--- NOTE | 2016-10-25 13:53 | Progress Note ---
Internal Med Progress Note Date of Service: October 25, 2016. Provider Documentation: SUBJECTIVE: The Patient was seen and examined Remains ventilated Occasional agitations on reducing the pain medications Weaning of Vent today if possible OBJECTIVE: Vital Signs-as noted below Exam: General-Sedated on Vent Eyes-closed ENT-Normal Neck-supple Lungs-Clear to auscultate bilaterally Minimal crackles at the bases Heart-Regular,no murmur appreciated Abdomen-Benign,no masses,bowel sound present Extremities-No edema Neuro-AAOx3 Lab data as noted below. ASSESSMENT & PLAN: DELIRIUM TREMENS -secondary to Alcohol abuse -Day 4 in the ICU intubated on vent support -On versed and propofol drip -On alcohol withdrawal protocol -Continue thiamine, Folic acid and IVF -Failed weaning trial -Ventilator care as per Project Developer - Ativan 4mg IV q4hr - EEG done showed no seizure activity -Gets agitated on reducing sedating medications -will try to wean off Vent today PNEUMONIA Likely secondary to Aspiration CXR showed Progression of bibasilar opacities, right greater than left Continue Unasyn and Zithromax Has had a bronch done 10/22 Bronchial washings sent for culture and Gram stain, cx growth normal amish ( fungal elements, and AFB stain Pending) D/C Azithromycin on 27 of October Elevated Liver Enzymes -likely secondary to alcohol abuse -Hepatitis B and C negative -continue monitor liver enzymes-improving THROMBOCYTOPENIA -secondary to Alcohol abuse and Cirrhosis -platelet improved from 35 to 50-->73 today -no pharmacologic anticoagulation -Almost normalized ELEVATED CK LEVEL Likely from recurrent trauma Continue IVF Electrolytes Imbalance Supplement and Monitor TOBACCO ABUSE -Nicotine patch ordered DVT PROPHYLAXIS: SCDs RE: thrombocytopenia Will consider Heparin irf platelet goes >100 Started on Lovenox CODE STATUS: FULL CODE 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 Procedures: Bronchoscopy Will update Family members when available Vital Signs: Date Time Temp Pulse Resp B/P Pulse Ox O2 Delivery O2 Flow Rate FiO2 10/25/16 12:00 37.0 71 16 107/75 96 Mechanical Ventilator 10/25/16 12:00 30 10/25/16 12:00 Mechanical Ventilator 30 10/25/16 11:42 30 10/25/16 10:00 37.0 76 16 124/81 96 Mechanical Ventilator 30 10/25/16 08:01 37.0 84 16 100/72 93 Mechanical Ventilator 30 10/25/16 08:00 Mechanical Ventilator 30 10/25/16 08:00 30 10/25/16 07:51 30 10/25/16 06:01 37.1 75 16 90/60 90 Mechanical Ventilator 30 10/25/16 05:10 30 10/25/16 04:01 36.9 65 16 136/81 100 Mechanical Ventilator 30 10/25/16 04:00 100 Mechanical Ventilator 30 10/25/16 04:00 30 10/25/16 02:01 37.0 98 16 122/83 100 Mechanical Ventilator 30 10/25/16 01:55 30 10/25/16 00:01 36.3 70 16 117/80 97 Mechanical Ventilator 30 10/24/16 23:59 30 10/24/16 23:59 99 Mechanical Ventilator 30 10/24/16 22:30 36.4 68 16 102/71 97 10/24/16 22:10 30 10/24/16 22:05 36.4 71 0 96 10/24/16 22:00 36.5 72 0 96/65 95 10/24/16 21:35 36.8 78 96 10/24/16 21:30 36.8 78 16 92/62 96 10/24/16 21:00 36.6 75 16 90/62 97 10/24/16 20:30 36.6 75 16 88/63 96 10/24/16 20:26 36.7 75 16 92/63 96 10/24/16 20:00 36.6 75 16 89/65 97 10/24/16 19:57 36.7 74 16 83/58 94 10/24/16 19:42 36.6 76 16 83/61 96 10/24/16 19:30 36.6 76 16 96 10/24/16 19:30 36.6 77 16 85/61 96 Mechanical Ventilator 30 10/24/16 19:30 30 10/24/16 19:30 Mechanical Ventilator 30 10/24/16 19:20 30 10/24/16 19:01 36.8 79 16 92/61 97 10/24/16 19:00 36.7 79 16 96 10/24/16 18:00 36.7 76 16 99/67 96 10/24/16 17:45 30 10/24/16 17:30 37.3 76 16 99/67 97 Mechanical Ventilator 30 10/24/16 17:00 36.8 76 16 95/65 96 10/24/16 16:00 36.9 76 16 102/69 97 10/24/16 15:37 30 10/24/16 15:30 30 10/24/16 15:30 37.1 72 16 107/66 97 Mechanical Ventilator 30 10/24/16 15:30 Mechanical Ventilator 30 10/24/16 15:00 37.1 77 16 107/69 98 10/24/16 14:00 37.0 79 16 108/76 97 Lab Results: Results Past 24 Hours Test 10/24/16 14:53 10/25/16 05:20 Range/Units Sodium Level 142 138 136-145 mmol/L Potassium Level 4.2 3.6 3.5-5.1 mmol/L Chloride Level 105 103 98-107 mmol/L Carbon Dioxide Level 33 32 21-32 mmol/L Anion Gap 4.0 3.0 3-11 mmol/L Blood Urea Nitrogen 7 8 7-18 mg/dl Creatinine 0.50 0.52 0.60-1.40 mg/dl Est Creatinine Clear Calc Drug Dose 204.9 197.1 ml/min Estimated GFR () 141.4 139.1 Estimated GFR (Non- 122.0 120.1 BUN/Creatinine Ratio 14.4 16.2 10-20 Random Glucose 107 167 70-99 mg/dl Calcium Level 8.1 7.7 8.5-10.1 mg/dl White Blood Count 3.77 4.8-10.8 K/uL Red Blood Count 3.18 4.7-6.1 M/uL Hemoglobin 10.2 14.0-18.0 g/dL Hematocrit 29.8 42-52 % Mean Corpuscular Volume 93.7 80-100 fL Mean Corpuscular Hemoglobin 32.1 25-34 pg Mean Corpuscular Hemoglobin Concent 34.2 32-36 g/dl Platelet Count 123 130-400 K/uL Mean Platelet Volume 10.0 7.4-10.4 fL Neutrophils (%) (Auto) 60.6 % Lymphocytes (%) (Auto) 21.0 % Monocytes (%) (Auto) 14.9 % Eosinophils (%) (Auto) 2.9 % Basophils (%) (Auto) 0.3 % Neutrophils # (Auto) 2.29 1.4-6.5 K/uL Lymphocytes # (Auto) 0.79 1.2-3.4 K/uL Monocytes # (Auto) 0.56 0.11-0.59 K/uL Eosinophils # (Auto) 0.11 0-0.5 K/uL Basophils # (Auto) 0.01 0-0.2 K/uL RDW Standard Deviation 43.4 36.4-46.3 fL RDW Coefficient of Variation 12.7 11.5-14.5 % Immature Granulocyte % (Auto) 0.3 % Immature Granulocyte # (Auto) 0.01 0.00-0.02 K/uL Phosphorus Level 3.5 2.5-4.9 mg/dl Magnesium Level 2.2 1.8-2.4 mg/dl
[2016-10-25] MEDS: DexMEDEtomidine HCL INJ 400 MCG in SODIUM CHLORIDE 0.9% 100ML 96 ML IV PRN ×3 (16:28→20:11)
[2016-10-25] MEDS ORDERED: HALOPERIDOL LACTATE 5 MG/ML 1 ML VIAL IM STA (19:18)
[2016-10-25] MEDS ORDERED: HALOPERIDOL LACTATE 5 MG/ML 1 ML VIAL IV STA (22:56)
[2016-10-25] MEDS ORDERED: FENTANYL CITRATE INJ 50 MCG/1 ML 2 ML VIAL IV STA (22:58)
[2016-10-25] MEDS ORDERED: NURSING VERBAL MED ORDER ONE (23:00)
[2016-10-26] VITALS (44 sets, daily range): BP systolic 96–171; BP diastolic 68–112; PULSE 65–88; TEMP 30.3–37.9; O2SAT 92–100
[2016-10-26] MEDS: DexMEDEtomidine HCL INJ 400 MCG in SODIUM CHLORIDE 0.9% 100ML 96 ML IV PRN ×8 (00:12→23:48)
[2016-10-26] MEDS: LORAZEPAM 2 MG/ML 1 ML VIAL IV SCH ×6 (00:12→20:55)
[2016-10-26] MEDS: AMPICILLIN/SULBACTAM SOD INJ 3,000 MG in SODIUM CHLORIDE 0.9% 100ML 100 ML IV SCH ×5 (00:12→23:46)
[2016-10-26] MEDS: LORAZEPAM 2 MG/ML 1 ML VIAL IV PRN ×6 (01:50→18:46)
[2016-10-26] MEDS: MIDAZOLAM 125MG/250ML D5W 250 ML IV PRN ×3 (02:13→22:07)
[2016-10-26] MEDS: ALBUTEROL HFA 8 GM INHALER INH SCH ×4 (02:40→20:45)
[2016-10-26] MEDS: FENTANYL 1250MCG/250ML NSS 250 ML IV PRN ×4 (04:30→23:47)
[2016-10-26] MEDS: FENTANYL CITRATE INJ 50 MCG/1 ML 2 ML VIAL IV PRN (04:53)
[2016-10-26 06:32] LABS: BASO % 0.5 %; BASO ABS # 0.02 K/uL (0-0.2); COMPLETE YES; EOS % 3.3 %; HEMATOCRIT 33.7 % (42-52); IG% 0.5 %; LYMPH % 19.5 %; LYMPH ABS # 0.84 K/uL (1.2-3.4); MEAN CELL VOLUME 92.3 fL (80-100); MEAN CORPUSCULAR HEMOGLOBIN 31.5 pg (25-34); MEAN CORPUSCULAR HGB CONC 34.1 g/dl (32-36); MEAN PLATELET VOLUME 9.4 fL (7.4-10.4); MONO % 18.1 %; NEUT % 58.1 %; PLATELET COUNT 158 K/uL (130-400); RED BLOOD COUNT 3.65 M/uL (4.7-6.1)
[2016-10-26 07:01] LABS: BUN/CREATININE RATIO 14.5 (10-20); CALCIUM 8.8 mg/dl (8.5-10.1); CREATININE 0.5 mg/dl (0.60-1.40); POTASSIUM 3.8 mmol/L (3.5-5.1)
[2016-10-26] MEDS: ENOXAPARIN 40 MG/0.4 ML SYR SQ SCH (08:13)
[2016-10-26] MEDS: MULTIVITAMINS W/MINERALS 15ML UDP PO SCH (08:13)
[2016-10-26] MEDS: DOCUSATE SODIUM 100 MG/10 ML UDC PO SCH ×2 (08:13→20:53)
[2016-10-26] MEDS: POLYETHYLENE (MIRALAX) 17 GM PACK PO SCH (08:14)
[2016-10-26] MEDS: CLONIDINE HCL 0.1 MG TAB PO SCH (08:14)
[2016-10-26] MEDS: MAGNESIUM OXIDE 400 MG TAB PO SCH ×2 (08:14→20:54)
[2016-10-26] MEDS: CHLORHEXIDINE GLUCONATE 0.12% 15 ML UDP PO SCH ×2 (08:15→20:53)
[2016-10-26] MEDS: PROPRANOLOL HCL 10 MG TAB PO SCH ×3 (08:15→20:54)
[2016-10-26] MEDS: AZITHROMYCIN IV 250 MG in DEXTROSE 5% 250ML 250 ML IV SCH (08:17)
--- NOTE | 2016-10-26 08:17 | DIAGNOSTIC IMAGING REPORT ---
CHEST ONE VIEW PORTABLE HISTORY: f/u infiltrate, check ETT COMPARISON: Chest 10/25/2016. FINDINGS: The endotracheal tube remains 4 cm above the [place]. Nasogastric tube terminates in the stomach. Left subclavian Port-A-Cath terminates in the SVC. No pneumothorax. Trace bilateral pleural effusions. Right basilar density persists. Patchy density at the left lung base. IMPRESSION: 1. Satisfactory support line placement. 2. Trace bilateral pleural effusions and bibasilar densities persist. Electronically signed by: Dalton Adler M.D. 10/26/2016 8:15 AM Dictated Date/Time: 10/26/2016 8:11 AM
[2016-10-26] MEDS: THIAMINE HCL INJ 100 MG in SYRINGE 9 ML IV SCH (09:12)
[2016-10-26] MEDS ORDERED: HALOPERIDOL LACTATE 5 MG/ML 1 ML VIAL IV SCH (10:00)
--- NOTE | 2016-10-26 10:05 | DIAGNOSTIC IMAGING REPORT ---
HEAD CT NONCONTRAST CT DOSE: 614.27 mGy.cm HISTORY: delirium TECHNIQUE: Multiaxial CT images of the head were performed without the use of intravenous contrast. Automated exposure control was utilized for this study. Comparison: Head CT 10/20/2016. Findings: There is a retention cyst within the right maxillary sinus. Trace fluid within the left sphenoid sinus. The mastoid air cells are clear. The calvarium and skull base are intact. The ventricles and sulci are within normal limits. There is no mass, hematoma, midline shift, or acute infarct. Impression: No acute intracranial abnormality. Electronically signed by: Dalton Adler M.D. 10/26/2016 10:04 AM Dictated Date/Time: 10/26/2016 9:59 AM
[2016-10-26] MEDS: PANTOprazole INJ 40 MG in SYRINGE 0 ML IV SCH (10:28)
[2016-10-26] MEDS ORDERED: FUROSEMIDE 40 MG/4 ML VIAL IV STA (10:31)
[2016-10-26] MEDS: PEPTAMEN INTENSE VHP 1000ML BAG NG PRN (10:41)
[2016-10-26] MEDS ORDERED: POTASSIUM CHLORIDE 20 MEQ/15 ML UDC PO ONE (11:00)
--- NOTE | 2016-10-26 13:50 | CRITICAL CARE PROGRESS NOTE ---
DATE: 10/26/2016 SUBJECTIVE: Last evening, the patient became very agitated and required Haldol and fentanyl boluses. His fentanyl infusion was increased to 200 mcg per hour where it remains. He is also on Versed at 12 mg per hour and Precedex at 1.3 along with Ativan 6 mg IV q. 4 hours. He is tolerating his Peptamen bariatric at 65 mL per hour which is the goal. He is not producing much sputum. He is presently on CPAP 5/5 at 30% and having occasional apneic episodes. He had 2 bowel movements yesterday. PHYSICAL EXAMINATION: VITAL SIGNS: Maximum temperature 37.9, heart rate 70s-80s, respiratory rate 10-11, blood pressure 127-160/80s-102. Oxygen saturation 98%. NEUROLOGIC: He will not follow any commands, but moves all 4 extremities, pulling against the restraints. He will not look at me, but would sit with his eyes open. LUNGS: Have decreased breath sounds in the bases. No rales, rhonchi or wheezes. HEART: Regular rate and rhythm. ABDOMEN: Firm, nondistended, nontender, hypoactive bowel sounds. EXTREMITIES: With SCDs in place and trace to 1+ edema in the upper extremities. LABORATORY DATA: White blood cell count 4.3, hemoglobin 11.5, hematocrit 33.7, platelets 158. Sodium 141, potassium 3.8, chloride 105, CO2 30, BUN 7, creatinine 0.5, blood sugar 102. Ammonia level 6. MEDICATIONS AND INFUSIONS: Acetaminophen, albuterol, Unasyn day 5, azithromycin day 5, chlorhexidine, clonidine, Precedex, Colace, Lovenox, Peptamen, fentanyl, folic acid, Ativan, magnesium oxide, Versed, multivitamin, Zofran, Protonix, MiraLax, propranolol, thiamin. IMAGING: Portable chest x-ray from this morning was reviewed and shows bibasilar atelectasis and a persistent right basilar infiltrate. Endotracheal tube about 4 cm above the [place]. No new microbiology data. IMPRESSION: 1. Alcohol withdrawal syndrome. He continues to be agitated and require mass doses of sedative medication to keep him safe. I think that physiologically he should be nearing the end of his withdrawal, and he continues to have delirium. 2. Right lower lobe pneumonia, no definitive organism. Being treated with Unasyn and azithromycin. 3. Acute respiratory failure secondary to alcohol withdrawal syndrome and right lower lobe pneumonia. 4. Thrombocytopenia, resolved. 5. Low grade fever, no cultures drawn at this point. 6. Constipation, resolved. 7. Tobacco abuse. 8. Vitamin D deficiency. PLAN: NEUROLOGIC: Unfortunately, his electrocardiogram shows a prolonged corrected QT interval. Therefore, I will not be able to use Haldol and have instead for now started some gabapentin. Continue to try to wean the Precedex and Versed. Continue fentanyl at 200 mcg per hour. PULMONARY: Continue CPAP trials daily. I am still hoping to extubate him; however, his sedative requirement has gone up and not down, over the past day. Hopefully, his pneumonia is getting better. Continue bronchodilators. CARDIOVASCULAR: He may require adjustment of his clonidine and propranolol. Watch heart rate and blood pressure carefully. GASTROINTESTINAL: Continue tube feeds and bowel regimen, Protonix for gastrointestinal prophylaxis. INFECTIOUS DISEASE: Ordered a sputum culture yesterday, but evidently he is not having much sputum today. This was not collected. Stop azithromycin after today and continue Unasyn for 5 days. RENAL: Lasix 20 mg IV x1 again today, can continue diuresis and replete electrolytes. HEMATOLOGY: Continue Lovenox for deep vein thrombosis prophylaxis. ENDOCRINE: No acute active issues. I discussed his care with his sister in detail yesterday. She was at the bedside. Critical care time 40 minutes.
--- NOTE | 2016-10-26 14:57 | Progress Note ---
Internal Med Progress Note Date of Service: October 26, 2016. Provider Documentation: SUBJECTIVE: The Patient was seen and examined Remains ventilated Occasional agitations on reducing the pain medications Remains on Vent as of this morning Difficult to wean off OBJECTIVE: Vital Signs-as noted below Exam: General-Sedated on Vent Eyes-closed ENT-Normal Neck-supple Lungs-Clear to auscultate bilaterally Minimal crackles at the bases Heart-Regular,no murmur appreciated Abdomen-Benign,no masses,bowel sound present Extremities-No edema Neuro-AAOx3 Lab data as noted below. ASSESSMENT & PLAN: DELIRIUM TREMENS -secondary to Alcohol abuse -Day 4 in the ICU intubated on vent support -On versed and propofol drip -On alcohol withdrawal protocol -Continue thiamine, Folic acid and IVF -Failed weaning trial so far -Ventilator care as per Exercise Science Instructor - Ativan 6mg IV q4hr - EEG done showed no seizure activity -Gets agitated on reducing sedating medications -Trial of Extubation today PNEUMONIA Likely secondary to Aspiration CXR showed Progression of bibasilar opacities, right greater than left Continue Unasyn and Zithromax Has had a bronch done 10/22 Bronchial washings sent for culture and Gram stain, cx growth normal amish ( fungal elements, and AFB stain Pending) D/C Azithromycin on 27 of October Will continue Unasyn for 5 days Elevated Liver Enzymes -likely secondary to alcohol abuse -Hepatitis B and C negative -continue monitor liver enzymes-improving THROMBOCYTOPENIA -secondary to Alcohol abuse and Cirrhosis -platelet improved from 35 to 50-->73 today -no pharmacologic anticoagulation initially -Almost normalized ELEVATED CK LEVEL Likely from recurrent trauma Continue IVF Electrolytes Imbalance Supplement and Monitor TOBACCO ABUSE -Nicotine patch ordered DVT PROPHYLAXIS: SCDs RE: thrombocytopenia Will consider Heparin irf platelet goes >100 Started on Lovenox CODE STATUS: FULL CODE 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 Procedures: Bronchoscopy Family 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 by Exercise Science Instructor Will update Family members when available Vital Signs: Date Time Temp Pulse Resp B/P Pulse Ox O2 Delivery O2 Flow Rate FiO2 10/26/16 14:01 37.6 80 11 130/92 100 CPAP 30 10/26/16 12:01 37.6 74 11 156/102 100 CPAP 30 10/26/16 12:00 99 CPAP 30 10/26/16 12:00 30 10/26/16 10:55 30 10/26/16 10:31 37.9 88 10 152/101 100 CPAP 30 10/26/16 08:01 37.7 72 133/88 97 Mechanical Ventilator 30 10/26/16 08:00 100 Mechanical Ventilator 30 10/26/16 08:00 Mechanical Ventilator 30 10/26/16 08:00 30 17 07:10 30 10/26/16 06:01 37.3 72 127/87 98 Mechanical Ventilator 30 10/26/16 05:45 30 10/26/16 04:01 37.1 80 153/98 99 Mechanical Ventilator 30 10/26/16 04:00 100 Mechanical Ventilator 30 10/26/16 04:00 30 10/26/16 03:01 37.1 76 166/111 100 Mechanical Ventilator 30 10/26/16 02:58 37.1 81 170/110 100 Mechanical Ventilator 30 10/26/16 02:20 30 10/26/16 02:01 37.1 66 153/94 98 Mechanical Ventilator 30 10/26/16 00:01 75 171/112 100 Mechanical Ventilator 30 10/25/16 23:59 98 Mechanical Ventilator 30 10/25/16 23:59 30 10/25/16 23:20 30 10/25/16 22:13 64 16 172/99 100 Mechanical Ventilator 30 10/25/16 22:00 37.1 62 16 163/104 100 Mechanical Ventilator 30 10/25/16 20:01 37.3 65 16 159/103 100 Mechanical Ventilator 30 10/25/16 20:00 100 Mechanical Ventilator 30 10/25/16 20:00 30 10/25/16 19:10 30 10/25/16 18:01 37.2 63 166/98 100 10/25/16 18:00 37.2 64 100 10/25/16 18:00 37.3 72 16 169/98 99 Mechanical Ventilator 30 10/25/16 17:48 30 10/25/16 17:31 37.2 67 154/97 100 10/25/16 17:30 37.2 68 100 10/25/16 17:00 37.3 71 147/95 99 10/25/16 16:31 37.2 72 13 143/94 100 17 16:30 37.2 73 15 100 10/25/16 16:01 37.2 70 15 143/97 100 10/25/16 16:00 37.2 71 16 100 10/25/16 15:31 37.2 76 16 150/100 100 10/25/16 15:30 Mechanical Ventilator 30 10/25/16 15:30 30 10/25/16 15:30 37.2 72 16 140/93 99 Mechanical Ventilator 30 10/25/16 15:30 37.2 75 19 100 10/25/16 14:56 30 Lab Results: Results Past 24 Hours Test 10/25/16 17:47 10/26/16 00:08 10/26/16 06:00 10/26/16 06:14 Range/Units Bedside Glucose 116 114 102 70-99 mg/dl White Blood Count 4.30 4.8-10.8 K/uL Red Blood Count 3.65 4.7-6.1 M/uL Hemoglobin 11.5 14.0-18.0 g/dL Hematocrit 33.7 42-52 % Mean Corpuscular Volume 92.3 80-100 fL Mean Corpuscular Hemoglobin 31.5 25-34 pg Mean Corpuscular Hemoglobin Concent 34.1 32-36 g/dl Platelet Count 158 130-400 K/uL Mean Platelet Volume 9.4 7.4-10.4 fL Neutrophils (%) (Auto) 58.1 % Lymphocytes (%) (Auto) 19.5 % Monocytes (%) (Auto) 18.1 % Eosinophils (%) (Auto) 3.3 % Basophils (%) (Auto) 0.5 % Neutrophils # (Auto) 2.50 1.4-6.5 K/uL Lymphocytes # (Auto) 0.84 1.2-3.4 K/uL Monocytes # (Auto) 0.78 0.11-0.59 K/uL Eosinophils # (Auto) 0.14 0-0.5 K/uL Basophils # (Auto) 0.02 0-0.2 K/uL RDW Standard Deviation 42.7 36.4-46.3 fL RDW Coefficient of Variation 12.5 11.5-14.5 % Immature Granulocyte % (Auto) 0.5 % Immature Granulocyte # (Auto) 0.02 0.00-0.02 K/uL Sodium Level 141 136-145 mmol/L Potassium Level 3.8 3.5-5.1 mmol/L Chloride Level 105 98-107 mmol/L Carbon Dioxide Level 30 21-32 mmol/L Anion Gap 6.0 3-11 mmol/L Blood Urea Nitrogen 7 7-18 mg/dl Creatinine 0.50 0.60-1.40 mg/dl Est Creatinine Clear Calc Drug Dose 204.9 ml/min Estimated GFR () 141.4 Estimated GFR (Non- 122.0 BUN/Creatinine Ratio 14.5 10-20 Random Glucose 102 70-99 mg/dl Calcium Level 8.8 8.5-10.1 mg/dl Test 10/26/16 09:06 10/26/16 12:32 Range/Units Ammonia 36.0 11-32 umol/L Bedside Glucose 106 70-99 mg/dl
[2016-10-26] MEDS: GABAPENTIN 250 MG/5 ML 470 ML BTL PO SCH (20:54)
[2016-10-26] MEDS ORDERED: GABAPENTIN 600 MG TAB PO SCH (21:00)
[2016-10-27] VITALS (31 sets, daily range): BP systolic 111–159; BP diastolic 70–118; PULSE 62–104; TEMP 36.8–37.3; O2SAT 94–100
[2016-10-27] MEDS ORDERED: LORAZEPAM IV STA (00:16)
[2016-10-27] MEDS: LORAZEPAM 2 MG/ML 1 ML VIAL IV SCH ×4 (00:39→11:33)
[2016-10-27] MEDS: ALBUTEROL HFA 8 GM INHALER INH SCH ×4 (02:35→19:58)
[2016-10-27] MEDS: DexMEDEtomidine HCL INJ 400 MCG in SODIUM CHLORIDE 0.9% 100ML 96 ML IV PRN ×6 (03:20→22:48)
[2016-10-27] MEDS: AMPICILLIN/SULBACTAM SOD INJ 3,000 MG in SODIUM CHLORIDE 0.9% 100ML 100 ML IV SCH ×4 (05:59→23:45)
[2016-10-27 06:27] LABS: HEMATOCRIT 33.1 % (42-52); MEAN CELL VOLUME 91.2 fL (80-100); MEAN CORPUSCULAR HEMOGLOBIN 32.2 pg (25-34); MEAN CORPUSCULAR HGB CONC 35.3 g/dl (32-36); MEAN PLATELET VOLUME 9.5 fL (7.4-10.4); PLATELET COUNT 185 K/uL (130-400); RED BLOOD COUNT 3.63 M/uL (4.7-6.1)
[2016-10-27] MEDS: FENTANYL 1250MCG/250ML NSS 250 ML IV PRN (06:28)
[2016-10-27 06:59] LABS: BUN/CREATININE RATIO 27.2 (10-20); CALCIUM 8.7 mg/dl (8.5-10.1); CREATININE 0.5 mg/dl (0.60-1.40); MAGNESIUM 2.5 mg/dl (1.8-2.4); PHOSPHORUS 3.8 mg/dl (2.5-4.9); POTASSIUM 3.8 mmol/L (3.5-5.1)
[2016-10-27] MEDS: GABAPENTIN 250 MG/5 ML 470 ML BTL PO SCH (08:18)
[2016-10-27] MEDS: CHLORHEXIDINE GLUCONATE 0.12% 15 ML UDP PO SCH ×2 (08:18→20:55)
[2016-10-27] MEDS: DOCUSATE SODIUM 100 MG/10 ML UDC PO SCH ×2 (08:18→20:55)
[2016-10-27] MEDS: PROPRANOLOL HCL 10 MG TAB PO SCH ×4 (08:19→20:55)
[2016-10-27] MEDS: POLYETHYLENE (MIRALAX) 17 GM PACK PO SCH (08:19)
[2016-10-27] MEDS: CLONIDINE HCL 0.1 MG TAB PO SCH (08:19)
[2016-10-27] MEDS: THIAMINE HCL INJ 100 MG in SYRINGE 9 ML IV SCH (08:20)
[2016-10-27] MEDS: ENOXAPARIN 40 MG/0.4 ML SYR SQ SCH (08:21)
[2016-10-27] MEDS: MAGNESIUM OXIDE 400 MG TAB PO SCH ×2 (08:37→20:55)
[2016-10-27] MEDS ORDERED: BISACODYL 10 MG SUPP PR STA (08:55)
[2016-10-27] MEDS ORDERED: BISACODYL 10 MG SUPP PR ONE (09:00)
[2016-10-27] MEDS ORDERED: BISACODYL 10 MG SUPP PR PRN (09:00)
[2016-10-27] MEDS: MIDAZOLAM 125MG/250ML D5W 250 ML IV PRN ×3 (09:03→21:34)
[2016-10-27] MEDS: MULTIVITAMINS W/MINERALS 15ML UDP PO SCH (09:07)
[2016-10-27] MEDS: QUETIAPINE FUMARATE 25 MG TAB PO SCH ×2 (09:46→20:56)
[2016-10-27] MEDS: PANTOprazole INJ 40 MG in SYRINGE 0 ML IV SCH (11:33)
--- NOTE | 2016-10-27 12:55 | CRITICAL CARE PROGRESS NOTE ---
DATE: 10/27/2016 DATE: 10/27/2016. SUBJECTIVE: There were no acute events overnight. The patient's care was discussed in detail on multidisciplinary rounds today. He had tube feed residuals of 500 mL twice overnight and they are being held at present. His fentanyl has been decreased to 100 mcg per hour. He has not had a bowel movement in 2 days. He continues to be agitated on Precedex 1.5mcg/kg/min, versed 12mg/hr and ativan 6mg IV q4h. PHYSICAL EXAMINATION: VITAL SIGNS: Maximum temperature 37.8, heart rate 65-101, respiratory rate 16, blood pressure 111-139/70s to 90s, oxygen saturation 97%. CPAP 5/5 30%. 24-hour fluid balance -68 mL. GENERAL: On exam he will look at me, he nodded his head once. NEUROLOGIC: He does not follow any commands. He pulls at the restraints and has a coarse tremor with those movements both in the upper and lower extremities. I do not note any nystagmus. His strength seems to be equal throughout. LUNGS: Coarse bilaterally. No rales, rhonchi or wheezes. HEART: Tachycardic, regular, no murmurs. ABDOMEN: Soft, nondistended, nontender. Active bowel sounds. EXTREMITIES: With SCDs on both legs, 1+ dorsalis pedis and radial pulses. Trace edema of the hands. LABORATORY DATA: White blood cell count 5, hemoglobin 11.7, hematocrit 33.1, platelets 185. Sodium 140, potassium 3.8, chloride 104, CO2 32, BUN 14, creatinine 0.5, blood sugar 101, magnesium 2.5. Portable chest x-ray from this morning was reviewed and shows bibasilar densities which are persistent and trace bilateral pleural effusions. CT of the brain yesterday was reviewed yesterday. MEDICATIONS AND INFUSIONS: Acetaminophen, albuterol, Unasyn day 5, Dulcolax, chlorhexidine, clonidine, Precedex, Colace, Lovenox, Peptamen, fentanyl, folic acid, gabapentin, heparin, Ativan, magnesium oxide, Versed, multivitamin, Zofran, Protonix, MiraLax, propranolol, Seroquel, Thiamine. IMPRESSIONS: 1. Alcohol withdrawal syndrome. 2. Agitated delirium secondary to #1. He is still on mass quantities of sedative medications and Seroquel was added today. I curbsided the neurology service about what seems like an intention tremor and they suggested perhaps using primidone or a beta fidencio. He is already on Inderal. 3. Acute respiratory failure secondary to #1. I suspect that we could extubate him and he would breathe; however, it still concerns me that he is requiring so much medication to keep him safe and in the bed. 4. Alcohol abuse. 5. Thrombocytopenia, resolved. 6. Vitamin D deficiency - he did not get the replacement I ordered Sunday. 7. Tube feed intolerance. 8. Low grade fever. 9. Right lower lobe pneumonia, improved. PLAN: NEUROLOGIC: Begin Seroquel 25 mg b.i.d. Follow the QT interval. Consider stopping all sedatives with the exception of Ativan to see if it changes his agitation at all. Consider primidone. Discontinue gabapentin which was resumed 2 days ago. He is receiving multivitamin, thiamine and folate. B12 and folate levels were checked on admission. PULMONARY: As above, consider extubation. Continue bronchodilators. CARDIOVASCULAR: Continue clonidine and propranolol. He has had Lasix for 3 days and will receive it p.r.n. GASTROINTESTINAL: Hold tube feeds, check flat plate of the abdomen. Continue Protonix for GI prophylaxis. Dulcolax suppository. INFECTIOUS DISEASE: Continue to follow cultures. Continue Unasyn for 7 days. RENAL: Replete electrolytes and hold magnesium today. HEMATOLOGY: Lovenox for DVT prophylaxis. ENDOCRINE: No acute active issues. Critical care time 40 minutes. MTDD
--- NOTE | 2016-10-27 12:59 | DIAGNOSTIC IMAGING REPORT ---
KUB CLINICAL HISTORY: tube feed residual COMPARISON STUDY: No previous studies for comparison. FINDINGS: Nonobstructive bowel pattern. Moderate increase in fecal material within the a sending colon. Nasogastric tube within the mid stomach. No evidence for gastric distention. IMPRESSION: Nasogastric tube within the mid stomach. No evidence for gastric distention or increasing gastric content volume. Electronically signed by: Keo Muir M.D. 10/27/2016 12:57 PM Dictated Date/Time: 10/27/2016 12:47 PM
[2016-10-27] MEDS ORDERED: ERGOCALCIFEROL 50,000 INTER.UNIT CAP PO ONE (13:30)
[2016-10-27] MEDS: CHOLECALCIFEROL 1000 INTER.UNIT TAB PO SCH (16:46)
[2016-10-27] MEDS: LORAZEPAM 2 MG/ML 1 ML VIAL IV PRN (16:52)
[2016-10-27] MEDS ORDERED: NURSING VERBAL MED ORDER ONE (17:30)
[2016-10-27] MEDS ORDERED: FUROSEMIDE 40 MG/4 ML VIAL IV ONE (18:00)
[2016-10-27] MEDS ORDERED: FENTANYL CITRATE INJ 50 MCG/1 ML 2 ML VIAL IV ONE (18:00)
[2016-10-27] MEDS ORDERED: LORAZEPAM 1 MG TAB ONE (18:10)
[2016-10-27] MEDS: LORAZEPAM 2 MG TAB PO SCH ×2 (18:16→21:38)
--- NOTE | 2016-10-27 19:44 | Progress Note ---
Medicine Progress Note Date & Time of Visit: October 27, 2016 at 19:44. Subjective Pt was seen and examined Intubated on vent support Sedated with versed and propofol Objective Last 8 Hrs Date Time Temp Pulse Resp B/P Pulse Ox O2 Delivery O2 Flow Rate FiO2 10/27/16 18:01 30 10/27/16 18:01 76 18 137/99 99 10/27/16 17:15 30 10/27/16 16:01 37.0 66 16 141/96 97 CPAP 30 Mechanical Ventilator 10/27/16 16:00 30 10/27/16 16:00 97 Mechanical Ventilator 30 10/27/16 15:05 30 10/27/16 14:01 78 10 121/85 95 CPAP 30 10/27/16 12:02 30 10/27/16 12:01 70 10 129/88 97 CPAP 30 10/27/16 12:00 96 Mechanical Ventilator 30 10/27/16 12:00 30 Physical Exam: General- sedated, on vent support Head- atraumatic Eyes- PERRL ENT- Intubated Neck- supple, no JVD Lungs- CTA, No wheezing Heart- Regular, no murmur Abdomen- normal bowel sounds, soft Extremities- No edema Neuro- sedated Skin- warm & dry Laboratory Results: Last 24 Hours Test 10/27/16 00:56 10/27/16 05:43 10/27/16 05:44 10/27/16 13:15 Bedside Glucose 104 mg/dl 111 mg/dl 108 mg/dl White Blood Count 5.00 K/uL Red Blood Count 3.63 M/uL Hemoglobin 11.7 g/dL Hematocrit 33.1 % Mean Corpuscular Volume 91.2 fL Mean Corpuscular Hemoglobin 32.2 pg Mean Corpuscular Hemoglobin Concent 35.3 g/dl RDW Standard Deviation 41.4 fL RDW Coefficient of Variation 12.3 % Platelet Count 185 K/uL Mean Platelet Volume 9.5 fL Sodium Level 140 mmol/L Potassium Level 3.8 mmol/L Chloride Level 104 mmol/L Carbon Dioxide Level 32 mmol/L Anion Gap 4.0 mmol/L Blood Urea Nitrogen 14 mg/dl Creatinine 0.50 mg/dl Est Creatinine Clear Calc Drug Dose 200.7 ml/min Estimated GFR () 141.4 Estimated GFR (Non- 122.0 BUN/Creatinine Ratio 27.2 Random Glucose 101 mg/dl Calcium Level 8.7 mg/dl Phosphorus Level 3.8 mg/dl Magnesium Level 2.5 mg/dl Test 10/27/16 18:55 Bedside Glucose 105 mg/dl Date/Time Source Procedure Growth Status 10/26/16 19:45 Sputum Vent. Suction Trap Gram Stain - Final Resulted 10/26/16 19:45 Sputum Vent. Suction Trap Sputum Culture - Preliminary NO GROWTH Resulted Assessment & Plan DELIRIUM TREMENS -In the ICU intubated on vent support -On versed and Precedex drip -On alcohol withdrawal protocol with gabapentin and Librium -office technician on board for management -Continue thiamine, Folic acid and IVF -Consider alcohol rehab once discharge - weaning trial - Will give lasix 20mg x1 -Plan to titrate off sedation - Ativan 4mg IV q4hr -Gabapentin and Librium d/c - EEG done showed no seizure activity 10/27 Intubated on Vent support day 7 On Precedex and versed Failed weaning trial Will try to extubate him today PNEUMONIA Mostly aspiration pneumonia CXR showed Progression of bibasilar opacities, right greater than left Procalcitonin normal, afebrile, no leukocytosis Continue Unasyn had a bronch done on 10/22 Bronchial washings sent for culture and Gram stain, cx growth normal amish (fungal elements, and AFB stain Pending) TRANSAMINITIS -likely secondary to alcohol abuse -Trending down to normal -Hepatitis B and C negative -continue monitor liver enzymes - stable THROMBOCYTOPENIA -likely secondary to alcohol abuse -platelet 185 today -No signs of bleeding -avoid anticoagulation -Resolved ELEVATED LACTATE -Due to alcohol intoxication on admission -no signs of infection, procalcitonin negative, blood cx no growth ELEVATED CK LEVEL Continue IVF HYPOKALEMIA -K 3.8 -Moniotor BMP -Stable TOBACCO ABUSE -Nicotine patch ordered DVT PROPHYLAXIS: SCDs, Lovenox CODE STATUS: FULL CODE Consultants: [employer] REPAIR[employer] Procedures: Bronchoscopy Current Inpatient Medications: Current Inpatient Medications Medications (Trade) Dose Ordered Sig/Rica Route Start Time Stop Time Status Last Admin Dose Admin Acetaminophen (Tylenol Tab) 650 mg Q4H PRN PO 10/20/16 16:00 11/19/16 15:59 Ondansetron HCl (Zofran Inj) 4 mg Q6H PRN IV 10/20/16 16:00 11/19/16 15:59 10/20/16 19:31 4 MG Lorazepam PRN Dosing -Active Protocol Q1H PRN IV 10/20/16 16:00 11/19/16 15:59 10/27/16 16:52 2 MG Thiamine HCl 100 mg/Syringe 10 ml @ 2 mls/min DAILY IV 10/25/16 09:00 11/24/16 08:59 10/27/16 08:20 2 MLS/MIN Pantoprazole Sodium/Syringe (Protonix Inj/ Syringe) 10 ml @ 5 mls/min DAILY@11 IV 10/21/16 11:00 11/20/16 10:59 10/27/16 11:33 5 MLS/MIN Multivitamins Therapeutic (Cerovite Liquid) 15 ml QAM PO 10/21/16 09:00 11/20/16 08:59 10/27/16 09:07 15 ML Folic Acid (Folvite Tab) 1 mg QAM PO 10/21/16 09:00 11/20/16 08:59 10/27/16 08:19 1 MG Magnesium Oxide (Mag-Ox Tab) 400 mg BID PO 10/21/16 10:15 11/20/16 10:14 10/26/16 20:54 400 MG Fentanyl Citrate 50 mcg 50 mcg Q2H PRN IV 10/22/16 09:15 11/05/16 09:14 10/26/16 04:53 50 MCG Ampicillin Sodium/ Sulbactam Sodium 3000 mg/Sodium Chloride 108 ml @ 200 mls/hr Q6H IV 10/22/16 12:00 10/29/16 11:29 10/27/16 18:11 200 MLS/HR Midazolam HCl (Midazolam 125MG/ 250ML D5w) 250 ml @ 0 mls/hr Q0M PRN IV 10/22/16 12:30 11/21/16 12:29 10/27/16 12:14 20 MLS/HR Clonidine HCl (Catapres Tab) 0.2 mg QAM PO 10/23/16 09:00 11/22/16 08:59 10/27/16 08:19 0.2 MG Propranolol HCl 10 mg 10 mg TID PO 10/22/16 14:00 11/21/16 13:59 10/27/16 16:47 10 MG Fentanyl Citrate (Fentanyl Drip 1250MCG/250 Nss) 250 ml @ 0 mls/hr Q0M PRN IV 10/22/16 12:30 11/05/16 12:29 10/27/16 06:28 29 MLS/HR Polyethylene (Miralax Powder Packet) 17 gm QAM PO 10/23/16 09:00 11/22/16 08:59 10/27/16 08:19 17 GM Chlorhexidine Gluconate (Peridex Oral Soln 15ML Udp) 15 ml BID PO 10/23/16 09:00 11/22/16 08:59 10/27/16 08:18 15 ML Docusate Sodium (coLACE SYRUP) 100 mg BID PO 10/23/16 09:00 11/22/16 08:59 10/27/16 08:18 100 MG Enteral Nutritional Formula (Peptamen Intense VHP) 65CC/HR PRN NG 10/23/16 22:30 11/22/16 22:29 10/26/16 10:41 65 ML Heparin Sodium (Porcine) (Heparin 10 Unit/ ml 5 ml Flush) 5 ml PRN PRN FLUSH 10/24/16 01:45 11/23/16 01:44 Albuterol (Ventolin Hfa Inhaler) 4 puffs Q6R INH 10/24/16 15:00 11/23/16 14:59 10/27/16 14:25 4 PUFFS Enoxaparin Sodium 40 mg 40 mg QAM SQ 10/25/16 09:00 11/24/16 08:59 10/27/16 08:21 40 MG Dexmedetomidine HCl/Sodium Chloride (PreCEDEX INJ/ Nss 100ml) 100 ml @ 0 mls/hr Q0M PRN IV 10/25/16 14:15 10/29/16 14:14 10/27/16 19:43 33.8 MLS/HR Quetiapine Fumarate (seroQUEL TAB) 25 mg BID PO 10/27/16 09:00 11/26/16 08:59 10/27/16 09:46 25 MG Bisacodyl (Dulcolax Supp) 10 mg DAILY PRN GA 10/27/16 09:00 11/26/16 08:59 Cholecalciferol (Vitamin D Tab) 2,000 inter.unit DAILY PO 10/27/16 14:30 11/26/16 14:29 10/27/16 16:46 2,000 INTER.UNIT Lorazepam (Ativan Tab) 6 mg Q4H PO 10/27/16 18:00 11/26/16 17:59 10/27/16 18:16 4 MG
[2016-10-28] VITALS (24 sets, daily range): BP systolic 127–172; BP diastolic 84–106; PULSE 59–80; TEMP 36.7–37.3; O2SAT 95–100
[2016-10-28] MEDS: FENTANYL 1250MCG/250ML NSS 250 ML IV PRN ×3 (00:26→21:03)
[2016-10-28] MEDS: DexMEDEtomidine HCL INJ 400 MCG in SODIUM CHLORIDE 0.9% 100ML 96 ML IV PRN ×3 (01:01→08:25)
[2016-10-28] MEDS: LORAZEPAM 2 MG TAB PO SCH ×6 (01:37→22:25)
[2016-10-28] MEDS: ALBUTEROL HFA 8 GM INHALER INH SCH ×4 (02:15→19:04)
[2016-10-28] MEDS: AMPICILLIN/SULBACTAM SOD INJ 3,000 MG in SODIUM CHLORIDE 0.9% 100ML 100 ML IV SCH ×4 (05:36→23:34)
[2016-10-28 05:52] LABS: BASO % 0.5 %; BASO ABS # 0.02 K/uL (0-0.2); COMPLETE YES; HEMATOCRIT 34.8 % (42-52); IG% 0.5 %; LYMPH % 25.3 %; LYMPH ABS # 1.11 K/uL (1.2-3.4); MEAN CELL VOLUME 90.6 fL (80-100); MEAN CORPUSCULAR HGB CONC 34.2 g/dl (32-36); MEAN PLATELET VOLUME 9.4 fL (7.4-10.4); MONO % 15.8 %; NEUT % 54.9 %; PLATELET COUNT 219 K/uL (130-400); RED BLOOD COUNT 3.84 M/uL (4.7-6.1); WHITE BLOOD COUNT 4.38 K/uL (4.8-10.8)
[2016-10-28 06:25] LABS: BUN/CREATININE RATIO 28.7 (10-20); CALCIUM 8.9 mg/dl (8.5-10.1); CREATININE 0.48 mg/dl (0.60-1.40); POTASSIUM 3.5 mmol/L (3.5-5.1)
[2016-10-28 06:28] LABS: ALB/GLOB RATIO 0.8 (0.9-2)
--- NOTE | 2016-10-28 07:14 | DIAGNOSTIC IMAGING REPORT ---
CHEST ONE VIEW PORTABLE CLINICAL HISTORY: respiratory failure dyspnea COMPARISON STUDY: 10/26/2016 FINDINGS: Endotracheal tube 3 cm above the [place]. Bibasilar parenchymal infiltrative change unaltered from the prior study. Mid and upper lungs are considered clear. IMPRESSION: Endotracheal tube 3 cm above the [place]. Right to lesser extent left basilar infiltrative change unaltered from the prior study. Electronically signed by: Keo Muir M.D. 10/28/2016 7:13 AM Dictated Date/Time: 10/28/2016 7:12 AM
[2016-10-28] MEDS ORDERED: POTASSIUM CHLORIDE 20 MEQ/15 ML UDC PO STA (07:55)
[2016-10-28] MEDS: DOCUSATE SODIUM 100 MG/10 ML UDC PO SCH ×2 (08:23→20:23)
[2016-10-28] MEDS: MAGNESIUM OXIDE 400 MG TAB PO SCH ×2 (08:24→20:26)
[2016-10-28] MEDS: MULTIVITAMINS W/MINERALS 15ML UDP PO SCH (08:24)
[2016-10-28] MEDS: QUETIAPINE FUMARATE 25 MG TAB PO SCH ×3 (08:24→20:23)
[2016-10-28] MEDS: CHLORHEXIDINE GLUCONATE 0.12% 15 ML UDP PO SCH ×2 (08:24→20:24)
[2016-10-28] MEDS: CHOLECALCIFEROL 1000 INTER.UNIT TAB PO SCH (08:24)
[2016-10-28] MEDS: ENOXAPARIN 40 MG/0.4 ML SYR SQ SCH (08:26)
[2016-10-28] MEDS: CLONIDINE HCL 0.1 MG TAB PO SCH (08:26)
[2016-10-28] MEDS: PROPRANOLOL HCL 10 MG TAB PO SCH ×3 (08:27→20:25)
[2016-10-28] MEDS: POLYETHYLENE (MIRALAX) 17 GM PACK PO SCH (08:27)
[2016-10-28] MEDS: THIAMINE HCL INJ 100 MG in SYRINGE 9 ML IV SCH (08:33)
[2016-10-28] MEDS: PANTOprazole INJ 40 MG in SYRINGE 0 ML IV SCH (08:39)
[2016-10-28] MEDS: MIDAZOLAM 125MG/250ML D5W 250 ML IV PRN (11:56)
--- NOTE | 2016-10-28 14:19 | CRITICAL CARE PROGRESS NOTE ---
DATE: 10/28/2016 SUBJECTIVE: There were no acute events overnight. This morning his Precedex which was at a max dose was cut in half, the fentanyl was stopped and the Versed was taken down to 5 mg per hour. He was relatively calm for several hours; however, then became agitated. A spontaneous breathing trial was started. He has good tidal volumes and a normal respiratory rate. He has not had a bowel movement in 2 days. Peptamen tube feeds continue at 10 mL per hour. PHYSICAL EXAMINATION: VITAL SIGNS: Maximum temperature 37.5, heart rate 60-70, respiratory rate 16-24, blood pressure 120-172/80s-105, oxygen saturation 98%, CPAP 5/5 at 30%. 24-hour fluid balance -846 mL. NEUROLOGIC: With his sedation decreased, he would open his eyes and look at me. Intermittently he would follow very simple commands. CAM assessment was not able to be performed. LUNGS: Coarse bilaterally. No rales, rhonchi or wheezes. HEART: Regular rate and rhythm. ABDOMEN: Firm, mildly distended, nontender. Active bowel sounds. EXTREMITIES: Thin, warm. He is restrained at the wrists and has 1+ edema of the hands. LABORATORY DATA: White blood cell count 4.38, hemoglobin 11.9, hematocrit 34.8, platelets 219. Sodium 141, potassium 3.5, chloride 104, CO2 of 32, BUN 14, creatinine 0.48, blood sugar 99. Total bilirubin 1.1, AST 40, ALT 56, alkaline phosphatase 145, albumin 3.2. Sputum culture 10/26, scant normal amish. Bronchial washings 10/22, no acid fast bacilli. Fungal culture pending. MEDICATIONS AND INFUSIONS: Acetaminophen, albuterol, Unasyn day 6, Dulcolax, chlorhexidine, vitamin D, clonidine, Precedex, Colace, Lovenox, Peptamen, fentanyl, folic acid, Ativan, magnesium oxide, Versed, multivitamin, Zofran, Protonix, MiraLax, propranolol, Seroquel, senna, and thiamine. IMAGING: Portable chest x-ray from this morning was reviewed and is unchanged compared to yesterday. He has bibasilar infiltrates, right greater than left. EKG, normal sinus rhythm with nonspecific ST-T wave changes, corrected QT interval 463 milliseconds. IMPRESSION: 1. Alcohol withdrawal syndrome with agitated delirium. Seroquel was started yesterday. He continues on a beta-fidencio, propranolol as well as clonidine. 2. Acute respiratory failure secondary to #1 and massive quantities of sedation he requires in order to keep both he and the staff safe. 3. Thrombocytopenia, resolved. 4. Vitamin D deficiency. 5. Aspiration pneumonia, also contributing to respiratory failure. 6. Ileus and tube feed intolerance. PLAN: Neurologic: Increased Seroquel to 50 mg t.i.d. and follow the corrected QT interval. Continue scheduled Ativan p.o. and continue to try to wean the fentanyl and Versed. Pulmonary: Continue CPAP trials daily. I am concerned about the potential for aspiration should he be extubated at this point. Today is ventilator day #8. Cardiovascular: Continue propranolol and clonidine. Hold Lasix for today. Gastrointestinal: Place NG tube to low intermittent suction and hold tube feeds. Infectious disease: Continue Unasyn for a total of 7 days. He is not having any significant endotracheal tube secretions presently. Renal: Watch volume status. He may require IV fluids, note he is off the tube feeds. Hematologic: Continue Lovenox for DVT prophylaxis. Endocrine: No active acute issues. I discussed his care with his sister who was at the bedside today and updated her in detail. Critical care time 40 minutes.
[2016-10-28] MEDS: DEXMEDETOMIDINE HCL IV PRN ×2 (15:09→21:01)
[2016-10-28] MEDS: SODIUM CHLORIDE 0.9% IV PRN ×2 (15:09→21:01)
--- NOTE | 2016-10-28 15:40 | Progress Note ---
Medicine Progress Note Date & Time of Visit: October 28, 2016 at 15:28. Subjective Pt was seen and examined Intubated on Vent support day 8 eyes open and follow minimal command trying to titrate off sedation Objective Last 8 Hrs Date Time Temp Pulse Resp B/P Pulse Ox O2 Delivery O2 Flow Rate FiO2 10/28/16 14:12 30 10/28/16 13:01 62 12 142/87 97 Mechanical Ventilator 30 10/28/16 12:31 37.3 69 14 153/106 98 Mechanical Ventilator 30 10/28/16 12:00 Mechanical Ventilator 30 10/28/16 12:00 30 10/28/16 11:30 30 10/28/16 11:01 62 16 147/97 98 Mechanical Ventilator 30 10/28/16 10:01 80 20 144/90 95 Mechanical Ventilator 30 10/28/16 09:01 67 12 146/91 98 Mechanical Ventilator 10/28/16 08:58 71 16 136/89 98 Mechanical Ventilator 50 10/28/16 08:02 37.1 67 16 155/97 99 Mechanical Ventilator 50 10/28/16 08:00 Mechanical Ventilator 50 10/28/16 08:00 50 10/28/16 07:50 30 10/28/16 07:34 30 Physical Exam: General- sedated, on vent support Head- atraumatic Eyes- PERRL ENT- Intubated Neck- supple, no JVD Lungs- CTA, No wheezing Heart- Regular, no murmur Abdomen- normal bowel sounds, soft Extremities- No edema Neuro- sedated Skin- warm & dry Laboratory Results: Last 24 Hours Test 10/27/16 18:55 10/27/16 22:43 10/28/16 05:27 Bedside Glucose 105 mg/dl 104 mg/dl White Blood Count 4.38 K/uL Red Blood Count 3.84 M/uL Hemoglobin 11.9 g/dL Hematocrit 34.8 % Mean Corpuscular Volume 90.6 fL Mean Corpuscular Hemoglobin 31.0 pg Mean Corpuscular Hemoglobin Concent 34.2 g/dl Platelet Count 219 K/uL Mean Platelet Volume 9.4 fL Neutrophils (%) (Auto) 54.9 % Lymphocytes (%) (Auto) 25.3 % Monocytes (%) (Auto) 15.8 % Eosinophils (%) (Auto) 3.0 % Basophils (%) (Auto) 0.5 % Neutrophils # (Auto) 2.41 K/uL Lymphocytes # (Auto) 1.11 K/uL Monocytes # (Auto) 0.69 K/uL Eosinophils # (Auto) 0.13 K/uL Basophils # (Auto) 0.02 K/uL RDW Standard Deviation 40.8 fL RDW Coefficient of Variation 12.4 % Immature Granulocyte % (Auto) 0.5 % Immature Granulocyte # (Auto) 0.02 K/uL Sodium Level 141 mmol/L Potassium Level 3.5 mmol/L Chloride Level 104 mmol/L Carbon Dioxide Level 32 mmol/L Anion Gap 5.0 mmol/L Blood Urea Nitrogen 14 mg/dl Creatinine 0.48 mg/dl Est Creatinine Clear Calc Drug Dose 209.1 ml/min Estimated GFR () 143.8 Estimated GFR (Non- 124.1 BUN/Creatinine Ratio 28.7 Random Glucose 99 mg/dl Calcium Level 8.9 mg/dl Total Bilirubin 1.1 mg/dl Aspartate Amino Transf (AST/SGOT) 40 U/L Alanine Aminotransferase (ALT/SGPT) 56 U/L Alkaline Phosphatase 145 U/L Total Protein 7.2 gm/dl Albumin 3.2 gm/dl Globulin 4.0 gm/dl Albumin/Globulin Ratio 0.8 Assessment & Plan DELIRIUM TREMENS -In the ICU intubated on vent support -On versed and Precedex drip -On alcohol withdrawal protocol with gabapentin and Librium -job training specialist on board for management -Continue thiamine, Folic acid and IVF -Consider alcohol rehab once discharge - weaning trial - Will give lasix 20mg x1 -Plan to titrate off sedation - Ativan 4mg IV q4hr -Gabapentin and Librium d/c - EEG done showed no seizure activity 10/28 Intubated on Vent support day 8 Planing to titrate off versed, Fentanyl, Precedex cut in half. Got agitated when placed on CPAP Failed weaning trial Continue daily CPAP trial PNEUMONIA Mostly aspiration pneumonia CXR showed Progression of bibasilar opacities, right greater than left Procalcitonin normal, afebrile, no leukocytosis Will do 7 days Unasyn course had a bronch done on 10/22 Bronchial washings sent for culture and Gram stain, cx growth normal amish (fungal elements, and AFB stain Pending) TRANSAMINITIS -likely secondary to alcohol abuse -Trending down to normal -Hepatitis B and C negative -continue monitor liver enzymes - stable THROMBOCYTOPENIA -likely secondary to alcohol abuse -platelet 185 today -No signs of bleeding -avoid anticoagulation -Resolved ELEVATED LACTATE -Due to alcohol intoxication on admission -no signs of infection, procalcitonin negative, blood cx no growth ELEVATED CK LEVEL Continue IVF HYPOKALEMIA -K 3.5 -Moniotor BMP -Stable TOBACCO ABUSE -Nicotine patch ordered DVT PROPHYLAXIS: SCDs, Lovenox CODE STATUS: FULL CODE Consultants: [employer]ER Procedures: Bronchoscopy Current Inpatient Medications: Current Inpatient Medications Medications (Trade) Dose Ordered Sig/Rica Route Start Time Stop Time Status Last Admin Dose Admin Acetaminophen (Tylenol Tab) 650 mg Q4H PRN PO 10/20/16 16:00 11/19/16 15:59 Ondansetron HCl (Zofran Inj) 4 mg Q6H PRN IV 10/20/16 16:00 11/19/16 15:59 10/20/16 19:31 4 MG Lorazepam PRN Dosing -Active Protocol Q1H PRN IV 10/20/16 16:00 11/19/16 15:59 10/27/16 16:52 2 MG Thiamine HCl 100 mg/Syringe 10 ml @ 2 mls/min DAILY IV 10/25/16 09:00 11/24/16 08:59 10/28/16 08:33 2 MLS/MIN Pantoprazole Sodium/Syringe (Protonix Inj/ Syringe) 10 ml @ 5 mls/min DAILY@11 IV 10/21/16 11:00 11/20/16 10:59 10/28/16 08:39 5 MLS/MIN Multivitamins Therapeutic (Cerovite Liquid) 15 ml QAM PO 10/21/16 09:00 11/20/16 08:59 10/28/16 08:24 15 ML Folic Acid (Folvite Tab) 1 mg QAM PO 10/21/16 09:00 11/20/16 08:59 10/28/16 08:26 1 MG Magnesium Oxide (Mag-Ox Tab) 400 mg BID PO 10/21/16 10:15 11/20/16 10:14 10/28/16 08:24 400 MG Fentanyl Citrate 50 mcg 50 mcg Q2H PRN IV 10/22/16 09:15 11/05/16 09:14 10/26/16 04:53 50 MCG Ampicillin Sodium/ Sulbactam Sodium 3000 mg/Sodium Chloride 108 ml @ 200 mls/hr Q6H IV 10/22/16 12:00 10/29/16 11:29 10/28/16 11:56 200 MLS/HR Midazolam HCl (Midazolam 125MG/ 250ML D5w) 250 ml @ 0 mls/hr Q0M PRN IV 10/22/16 12:30 11/21/16 12:29 10/28/16 11:56 14 MLS/HR Clonidine HCl (Catapres Tab) 0.2 mg QAM PO 10/23/16 09:00 11/22/16 08:59 10/28/16 08:26 0.2 MG Propranolol HCl 10 mg 10 mg TID PO 10/22/16 14:00 11/21/16 13:59 10/28/16 15:09 10 MG Fentanyl Citrate (Fentanyl Drip 1250MCG/250 Nss) 250 ml @ 0 mls/hr Q0M PRN IV 10/22/16 12:30 11/05/16 12:29 10/28/16 11:55 10 MLS/HR Polyethylene (Miralax Powder Packet) 17 gm QAM PO 10/23/16 09:00 11/22/16 08:59 10/28/16 08:27 17 GM Chlorhexidine Gluconate (Peridex Oral Soln 15ML Udp) 15 ml BID PO 10/23/16 09:00 11/22/16 08:59 10/28/16 08:24 15 ML Docusate Sodium (coLACE SYRUP) 100 mg BID PO 10/23/16 09:00 11/22/16 08:59 10/28/16 08:23 100 MG Enteral Nutritional Formula (Peptamen Intense VHP) 65CC/HR PRN NG 10/23/16 22:30 11/22/16 22:29 10/26/16 10:41 65 ML Heparin Sodium (Porcine) (Heparin 10 Unit/ ml 5 ml Flush) 5 ml PRN PRN FLUSH 10/24/16 01:45 11/23/16 01:44 Albuterol (Ventolin Hfa Inhaler) 4 puffs Q6R INH 10/24/16 15:00 11/23/16 14:59 10/28/16 14:12 4 PUFFS Enoxaparin Sodium (Lovenox Inj) 40 mg QAM SQ 10/25/16 09:00 11/24/16 08:59 10/28/16 08:26 40 MG Bisacodyl (Dulcolax Supp) 10 mg DAILY PRN [place] 10/27/16 09:00 11/26/16 08:59 Cholecalciferol (Vitamin D Tab) 2,000 inter.unit DAILY PO 10/27/16 14:30 11/26/16 14:29 10/28/16 08:24 2,000 INTER.UNIT Lorazepam (Ativan Tab) 6 mg Q4H PO 10/27/16 18:00 11/26/16 17:59 10/28/16 15:09 6 MG Senna 17.6 mg 17.6 mg QAM PO 10/29/16 09:00 11/28/16 08:59 Dexmedetomidine HCl/Sodium Chloride (PreCEDEX INJ/ Nss 100ml) 100 ml @ 0 mls/hr Q0M PRN IV 10/28/16 14:00 11/01/16 13:59 10/28/16 15:09 16.9 MLS/HR Quetiapine Fumarate (seroQUEL TAB) 50 mg TID PO 10/28/16 14:00 11/27/16 13:59 10/28/16 15:10 50 MG
[2016-10-28] MEDS: LORAZEPAM 2 MG/ML 1 ML VIAL IV PRN (19:56)
[2016-10-29] VITALS (16 sets, daily range): BP systolic 115–182; BP diastolic 81–98; PULSE 54–88; TEMP 36.4–36.9; O2SAT 92–99
[2016-10-29] MEDS: MIDAZOLAM 125MG/250ML D5W 250 ML IV PRN (00:13)
[2016-10-29] MEDS: LORAZEPAM 2 MG/ML 1 ML VIAL IV PRN ×2 (00:35→04:23)
[2016-10-29] MEDS: ALBUTEROL HFA 8 GM INHALER INH SCH ×2 (01:25→07:36)
[2016-10-29] MEDS: LORAZEPAM 2 MG TAB PO SCH ×6 (01:54→20:59)
[2016-10-29 05:38] LABS: BASO % 0.9 %; BASO ABS # 0.03 K/uL (0-0.2); COMPLETE YES; EOS % 3.3 %; HEMATOCRIT 30.5 % (42-52); IG% 0.3 %; LYMPH % 28.1 %; LYMPH ABS # 0.94 K/uL (1.2-3.4); MEAN CELL VOLUME 88.4 fL (80-100); MEAN CORPUSCULAR HGB CONC 35.1 g/dl (32-36); MEAN PLATELET VOLUME 9.1 fL (7.4-10.4); MONO % 21.8 %; NEUT % 45.6 %; PLATELET COUNT 227 K/uL (130-400); RED BLOOD COUNT 3.45 M/uL (4.7-6.1); WHITE BLOOD COUNT 3.35 K/uL (4.8-10.8)
[2016-10-29] MEDS: AMPICILLIN/SULBACTAM SOD INJ 3,000 MG in SODIUM CHLORIDE 0.9% 100ML 100 ML IV SCH (05:51)
[2016-10-29 05:56] LABS: CALCIUM 8.1 mg/dl (8.5-10.1); CREATININE 0.45 mg/dl (0.60-1.40); MAGNESIUM 2.2 mg/dl (1.8-2.4); POTASSIUM 3.1 mmol/L (3.5-5.1)
[2016-10-29 05:58] LABS: PHOSPHORUS 3.5 mg/dl (2.5-4.9)
[2016-10-29] MEDS: DOCUSATE SODIUM 100 MG/10 ML UDC PO SCH ×2 (07:17→20:56)
[2016-10-29] MEDS: MAGNESIUM OXIDE 400 MG TAB PO SCH ×2 (07:17→20:56)
[2016-10-29] MEDS: QUETIAPINE FUMARATE 25 MG TAB PO SCH ×3 (07:17→20:57)
[2016-10-29] MEDS: SENNA 17.6 MG/10 ML UDP PO SCH (07:17)
[2016-10-29] MEDS: ENOXAPARIN 40 MG/0.4 ML SYR SQ SCH (07:18)
[2016-10-29] MEDS: CLONIDINE HCL 0.1 MG TAB PO SCH (07:18)
[2016-10-29] MEDS: MULTIVITAMINS W/MINERALS 15ML UDP PO SCH (07:18)
[2016-10-29] MEDS: CHLORHEXIDINE GLUCONATE 0.12% 15 ML UDP PO SCH (07:19)
[2016-10-29] MEDS: PROPRANOLOL HCL 10 MG TAB PO SCH ×3 (07:19→20:56)
[2016-10-29] MEDS: POLYETHYLENE (MIRALAX) 17 GM PACK PO SCH (07:20)
[2016-10-29] MEDS: CHOLECALCIFEROL 1000 INTER.UNIT TAB PO SCH (07:20)
[2016-10-29 09:00] LABS: CALCIUM 8.6 mg/dl (8.5-10.1)
[2016-10-29 09:01] LABS: BUN/CREATININE RATIO 20.7 (10-20); CREATININE 0.46 mg/dl (0.60-1.40); POTASSIUM 3.2 mmol/L (3.5-5.1)
[2016-10-29] MEDS: THIAMINE HCL INJ 100 MG in SYRINGE 9 ML IV SCH (09:27)
[2016-10-29] MEDS: PANTOprazole INJ 40 MG in SYRINGE 0 ML IV SCH (09:27)
[2016-10-29] MEDS: POTASSIUM CHLR 20 MEQ / WTR 20 MEQ in PREMIXED WATER 100 ML IV SCH ×4 (10:02→15:30)
--- NOTE | 2016-10-29 10:09 | DIAGNOSTIC IMAGING REPORT ---
ABDOMEN 2 VIEWS HISTORY: Abdominal distention. COMPARISON: KUB 10/27/2016. FINDINGS: Nasogastric tube terminates in the stomach. Moderate to large amount of stool within the proximal to mid colon. This remains unchanged. No pneumoperitoneum. No pneumatosis. Bibasilar linear densities and trace bilateral pleural effusions. No evidence for bowel obstruction. IMPRESSION: No evidence for bowel obstruction. Nasogastric tube terminates in the stomach. Bibasilar linear densities and trace bilateral pleural effusions. Electronically signed by: Dalton Adler M.D. 10/29/2016 10:08 AM Dictated Date/Time: 10/29/2016 10:06 AM
[2016-10-29] MEDS: TRIAMCINOLONE ACET 0.025% CR 15 GM TUBE EXT SCH ×2 (13:00→20:56)
--- NOTE | 2016-10-29 13:16 | CRITICAL CARE PROGRESS NOTE ---
DATE: 10/29/2016 SUBJECTIVE: This is an unfortunate 56-year-old gentleman admitted to the intensive care unit from the Emergency Department with alcohol withdrawal. He was intubated on October 20 and required massive doses of sedatives due to his agitated delirium. This morning his Versed and fentanyl were stopped and he was extubated while on Dexmedetomidine at 1.5 mcg per kilogram per hour. He was not having any significant endotracheal tube secretions. He had 500 mL out of his NG tube yesterday. He had a bowel movement today. OBJECTIVE: VITAL SIGNS: Maximum temperature 37.3, heart rate 50s-60s, respiratory rate 16-22, blood pressure 127-146/80s-90s, oxygen saturation 94% on CPAP 5/5, 30%. 24-hour fluid balance positive 646 mL. NEUROLOGIC: He would open his eyes and weakly follow commands. He nodded his head to questions. LUNGS: Coarse with decreased breath sounds at the bases. No rhonchi or wheezes. HEART: Regular rate and rhythm. ABDOMEN: A bit firm, mildly distended, nontender. Active bowel sounds. EXTREMITIES: Thin, with 1+ edema of the hands. SCDs in place. SKIN: Shows flaking patches over the forehead and cheeks. LABORATORY DATA: White blood cell count 3.35, hemoglobin 10.7, hematocrit 30.5, platelets 227. Sodium 140, potassium 3.2, chloride 105, CO2 of 29, BUN 10, creatinine 0.46, blood sugar 109. MICROBIOLOGY: No new data. Fungal culture from bronchial washing on October 22 is pending. Otherwise, no organisms identified. PRESENT MEDICATIONS: Acetaminophen p.r.n., albuterol, Dulcolax, vitamin D, clonidine, Precedex, Colace, Lovenox, fentanyl, folic acid, heparin, Ativan p.r.n. and scheduled, magnesium oxide, multivitamin, Zofran, Protonix, MiraLax, potassium, propranolol, Seroquel, Senokot, thiamin. IMAGING: Portable chest x-ray and abdominal x-rays were reviewed. There are bibasilar infiltrates unchanged on the chest x-ray and nonspecific bowel gas pattern on the abdominal x-ray. NG tube is in the stomach. IMPRESSION: 1. Alcohol withdrawal syndrome and agitated delirium, improving. Seroquel was started 2 days ago. 2. Acute respiratory failure secondary to #1, improved. He was extubated this morning. 3. Ileus possibly improving. He is having bowel movements, although his tube feeds have been on hold for the past 2 days. NGT still putting out 500ml yesterday but seems to be slowing. 4. Aspiration pneumonia status post 7 days of Unasyn, ending today. 5. Seborrheic dermatitis of the face, triamcinolone 0.025% ordered b.i.d. 6. Thrombocytopenia, resolved. 7. Mild elevation of the bilirubin, unchanged. 8. Vitamin D deficiency. PLAN: Neurologic: Continue Seroquel 50 mg t.i.d., scheduled Ativan 4 mg p.o. q. 6 hours and begin to wean the Precedex if possible. I have discontinued the fentanyl and Versed infusions. Pulmonary: I will order incentive spirometry, but I have a feeling he will not be able to participate with it. Attempt to keep the head of bed up and encourage deep breathing. Change bronchodilators from inhalers to nebulizers. Cardiovascular: Continue propranolol and clonidine. Follow corrected QT interval while on Seroquel. Gastrointestinal: Resume trickle feeds and a speech therapy consult has been ordered. Hopefully, he will be able to take p.o. Continue MiraLax, Colace and Dulcolax suppository. Continue proton pump inhibitor for GI prophylaxis. Infectious disease: He is now off antibiotics. Should he have a fever panculture. Renal: Continue intermittent Lasix and replete electrolytes. Hematologic: Continue Lovenox for deep venous thrombosis prophylaxis. Endocrine: No acute active issues. Miscellaneous: Physical therapy and occupational therapy have been ordered. Triamcinolone cream for the face. Consider weaning down the clonidine and the propranolol. I updated his sister who was at the bedside and who has visited her brother since he has been extubated. CRITICAL CARE TIME: 1 hour. DURAN
[2016-10-29] MEDS: ALBUT/IPRATROP 3MG/0.5MG NEB 3 ML VIAL INH SCH ×2 (15:27→19:53)
[2016-10-29] MEDS: SODIUM CHLORIDE 0.9% IV PRN ×2 (15:48→21:56)
[2016-10-29] MEDS: DEXMEDETOMIDINE HCL IV PRN ×2 (15:48→21:56)
[2016-10-29] MEDS ORDERED: NURSING VERBAL MED ORDER ONE (16:00)
[2016-10-29] MEDS: PEPTAMEN INTENSE VHP 1000ML BAG NG SCH (17:25)
--- NOTE | 2016-10-29 18:08 | Progress Note ---
Medicine Progress Note Date & Time of Visit: October 29, 2016 at 18:00. Subjective Pt was seen and examine Intubated on vent support on versed and precedex Awake and able to squeeze my finger when told to do Vital stable Objective Last 8 Hrs Date Time Temp Pulse Resp B/P Pulse Ox O2 Delivery O2 Flow Rate FiO2 10/29/16 16:01 36.9 71 16 165/97 92 Nasal Cannula 2.0 10/29/16 16:00 Nasal Cannula 2.0 10/29/16 15:27 88 20 96 Nasal Cannula 3.0 10/29/16 14:21 70 18 182/98 97 Nasal Cannula 2.0 10/29/16 12:58 36.9 73 14 115/83 94 Nasal Cannula 2.0 10/29/16 12:00 Nasal Cannula 2.0 10/29/16 11:23 69 144/93 99 Humidified Oxygen Physical Exam: General- Intubated on vent support Head- atraumatic Eyes- PERRL ENT- Intubated Neck- supple, no JVD Lungs- CTA, No wheezing Heart- Regular, no murmur Abdomen- normal bowel sounds, soft Extremities- No edema Neuro- awake, able to squezze finger, move all extremities Skin- warm & dry Laboratory Results: Last 24 Hours Test 10/29/16 05:16 10/29/16 08:32 White Blood Count 3.35 K/uL Red Blood Count 3.45 M/uL Hemoglobin 10.7 g/dL Hematocrit 30.5 % Mean Corpuscular Volume 88.4 fL Mean Corpuscular Hemoglobin 31.0 pg Mean Corpuscular Hemoglobin Concent 35.1 g/dl Platelet Count 227 K/uL Mean Platelet Volume 9.1 fL Neutrophils (%) (Auto) 45.6 % Lymphocytes (%) (Auto) 28.1 % Monocytes (%) (Auto) 21.8 % Eosinophils (%) (Auto) 3.3 % Basophils (%) (Auto) 0.9 % Neutrophils # (Auto) 1.53 K/uL Lymphocytes # (Auto) 0.94 K/uL Monocytes # (Auto) 0.73 K/uL Eosinophils # (Auto) 0.11 K/uL Basophils # (Auto) 0.03 K/uL RDW Standard Deviation 39.3 fL RDW Coefficient of Variation 12.2 % Immature Granulocyte % (Auto) 0.3 % Immature Granulocyte # (Auto) 0.01 K/uL Sodium Level 141 mmol/L 140 mmol/L Potassium Level 3.1 mmol/L 3.2 mmol/L Chloride Level 105 mmol/L 105 mmol/L Carbon Dioxide Level 29 mmol/L 29 mmol/L Anion Gap 7.0 mmol/L 6.0 mmol/L Blood Urea Nitrogen 9 mg/dl 10 mg/dl Creatinine 0.45 mg/dl 0.46 mg/dl Est Creatinine Clear Calc Drug Dose 223.0 ml/min 218.1 ml/min Estimated GFR () 147.7 146.3 Estimated GFR (Non- 127.4 126.2 BUN/Creatinine Ratio 20.0 20.7 Random Glucose 140 mg/dl 109 mg/dl Calcium Level 8.1 mg/dl 8.6 mg/dl Phosphorus Level 3.5 mg/dl Magnesium Level 2.2 mg/dl Total Bilirubin 1.1 mg/dl Direct Bilirubin 0.4 mg/dl Aspartate Amino Transf (AST/SGOT) 36 U/L Alanine Aminotransferase (ALT/SGPT) 52 U/L Alkaline Phosphatase 136 U/L Total Protein 6.6 gm/dl Albumin 3.0 gm/dl Date/Time Source Procedure Growth Status 10/28/16 18:30 Nasal MRSA DNA Surveillance Screen - Final Specimen Negative for MRSA by DNA Probe Complete Assessment & Plan DELIRIUM TREMENS -In the ICU intubated on vent support -On versed and Precedex drip -On alcohol withdrawal protocol with gabapentin and Librium -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 -Continue thiamine, Folic acid and IVF -Consider alcohol rehab once discharge - weaning trial - Will give lasix 20mg x1 -Plan to titrate off sedation - Ativan 4mg IV q4hr -Gabapentin and Librium d/c - EEG done showed no seizure activity 10/29 Intubated on Vent support On Precedex and versed Failed weaning trial yesterday Will try to extubate him today versed will turn off, continue Precedex if stay calm, and cooperate will extubate today PNEUMONIA Mostly aspiration pneumonia CXR showed Progression of bibasilar opacities, right greater than left Procalcitonin normal, afebrile, no leukocytosis Continue Unasyn had a bronch done on 10/22 Bronchial washings sent for culture and Gram stain, cx growth normal amish (fungal elements, and AFB stain Pending) stable TRANSAMINITIS -likely secondary to alcohol abuse -Trending down to normal -Hepatitis B and C negative -continue monitor liver enzymes - stable THROMBOCYTOPENIA -likely secondary to alcohol abuse -platelet 185 today -No signs of bleeding -avoid anticoagulation -Resolved ELEVATED LACTATE -Due to alcohol intoxication on admission -no signs of infection, procalcitonin negative, blood cx no growth ELEVATED CK LEVEL Continue IVF HYPOKALEMIA -K 3.2 -K replaced -Moniotor BMP -Stable TOBACCO ABUSE -Nicotine patch ordered DVT PROPHYLAXIS: SCDs, Lovenox CODE STATUS: FULL CODE Consultants: BPM ARCHITECT Procedures: Bronchoscopy Current Inpatient Medications: Current Inpatient Medications Medications (Trade) Dose Ordered Sig/Rica Route Start Time Stop Time Status Last Admin Dose Admin Acetaminophen (Tylenol Tab) 650 mg Q4H PRN PO 10/20/16 16:00 11/19/16 15:59 Ondansetron HCl (Zofran Inj) 4 mg Q6H PRN IV 10/20/16 16:00 11/19/16 15:59 10/20/16 19:31 4 MG Lorazepam PRN Dosing -Active Protocol Q1H PRN IV 10/20/16 16:00 11/19/16 15:59 10/29/16 04:23 2 MG Pantoprazole Sodium/Syringe (Protonix Inj/ Syringe) 10 ml @ 5 mls/min DAILY@11 IV 10/21/16 11:00 11/20/16 10:59 10/29/16 09:27 5 MLS/MIN Multivitamins Therapeutic (Cerovite Liquid) 15 ml QAM PO 10/21/16 09:00 11/20/16 08:59 10/29/16 07:18 15 ML Folic Acid (Folvite Tab) 1 mg QAM PO 10/21/16 09:00 11/20/16 08:59 10/29/16 07:17 1 MG Magnesium Oxide (Mag-Ox Tab) 400 mg BID PO 10/21/16 10:15 11/20/16 10:14 10/29/16 07:17 400 MG Fentanyl Citrate (Fentanyl Inj) 50 mcg Q2H PRN IV 10/22/16 09:15 11/05/16 09:14 10/26/16 04:53 50 MCG Clonidine HCl (Catapres Tab) 0.2 mg QAM PO 10/23/16 09:00 11/22/16 08:59 10/29/16 07:18 0.2 MG Propranolol HCl (Inderal Tab) 10 mg TID PO 10/22/16 14:00 11/21/16 13:59 10/29/16 14:06 10 MG Polyethylene (Miralax Powder Packet) 17 gm QAM PO 10/23/16 09:00 11/22/16 08:59 10/28/16 08:27 17 GM Docusate Sodium (coLACE SYRUP) 100 mg BID PO 10/23/16 09:00 11/22/16 08:59 10/29/16 07:17 100 MG Heparin Sodium (Porcine) (Heparin 10 Unit/ ml 5 ml Flush) 5 ml PRN PRN FLUSH 10/24/16 01:45 11/23/16 01:44 Enoxaparin Sodium (Lovenox Inj) 40 mg QAM SQ 10/25/16 09:00 11/24/16 08:59 10/29/16 07:18 40 MG Bisacodyl (Dulcolax Supp) 10 mg DAILY PRN [place] 10/27/16 09:00 11/26/16 08:59 10/29/16 07:16 10 MG Cholecalciferol (Vitamin D Tab) 2,000 inter.unit DAILY PO 10/27/16 14:30 11/26/16 14:29 10/29/16 07:20 2,000 INTER.UNIT Lorazepam (Ativan Tab) 6 mg Q4H PO 10/27/16 18:00 11/26/16 17:59 10/29/16 17:25 6 MG Senna 17.6 mg 17.6 mg QAM PO 10/29/16 09:00 11/28/16 08:59 10/29/16 07:17 17.6 MG Dexmedetomidine HCl/Sodium Chloride (PreCEDEX INJ/ Nss 100ml) 100 ml @ 0 mls/hr Q0M PRN IV 10/28/16 14:00 11/01/16 13:59 10/29/16 15:48 16.9 MLS/HR Quetiapine Fumarate (seroQUEL TAB) 50 mg TID PO 10/28/16 14:00 11/27/16 13:59 10/29/16 14:06 50 MG Thiamine HCl (Vitamin B-1 Tab) 100 mg QAM PO 10/30/16 09:00 11/29/16 08:59 Triamcinolone Acetonide (Kenalog 0.025% Crm) 1 appln BID EXT 10/29/16 21:00 11/28/16 20:59 10/29/16 13:00 1 APPLN Albuterol/ Ipratropium (Duoneb) 3 ml QIDR INH 10/29/16 16:00 11/28/16 15:59 10/29/16 15:27 3 ML Enteral Nutritional Formula (Peptamen Intense VHP) 1,000 ml UD NG 10/29/16 16:15 11/22/16 22:29 10/29/16 17:25 1,000 ML
[2016-10-30] VITALS (23 sets, daily range): BP systolic 128–167; BP diastolic 86–110; PULSE 62–82; TEMP 36.5–37.1; O2SAT 93–100
[2016-10-30] MEDS: LORAZEPAM 2 MG TAB PO SCH ×6 (01:37→21:19)
[2016-10-30] MEDS: LORAZEPAM 2 MG/ML 1 ML VIAL IV PRN ×4 (03:02→18:46)
[2016-10-30] MEDS: SODIUM CHLORIDE 0.9% IV PRN ×2 (03:28→20:39)
[2016-10-30] MEDS: DEXMEDETOMIDINE HCL IV PRN ×2 (03:28→20:39)
[2016-10-30 05:39] LABS: BASO % 0.6 %; BASO ABS # 0.04 K/uL (0-0.2); COMPLETE YES; EOS % 0.5 %; HEMATOCRIT 32.9 % (42-52); IG% 0.2 %; LYMPH % 17.7 %; LYMPH ABS # 1.13 K/uL (1.2-3.4); MEAN CELL VOLUME 88.7 fL (80-100); MEAN CORPUSCULAR HEMOGLOBIN 31.5 pg (25-34); MEAN CORPUSCULAR HGB CONC 35.6 g/dl (32-36); MEAN PLATELET VOLUME 9.9 fL (7.4-10.4); MONO % 9.5 %; NEUT % 71.5 %; PLATELET COUNT 258 K/uL (130-400); RED BLOOD COUNT 3.71 M/uL (4.7-6.1)
[2016-10-30 06:10] LABS: BUN/CREATININE RATIO 18.9 (10-20); CREATININE 0.54 mg/dl (0.60-1.40); POTASSIUM 3.6 mmol/L (3.5-5.1)
[2016-10-30 06:13] LABS: ALB/GLOB RATIO 0.8 (0.9-2); MAGNESIUM 2.4 mg/dl (1.8-2.4); PHOSPHORUS 3.9 mg/dl (2.5-4.9)
[2016-10-30] MEDS: CLONIDINE HCL 0.1 MG TAB PO SCH (07:48)
[2016-10-30] MEDS: TRIAMCINOLONE ACET 0.025% CR 15 GM TUBE EXT SCH ×2 (07:48→20:40)
[2016-10-30] MEDS: SENNA 17.6 MG/10 ML UDP PO SCH (07:50)
[2016-10-30] MEDS: QUETIAPINE FUMARATE 25 MG TAB PO SCH ×3 (07:50→20:41)
[2016-10-30] MEDS: MAGNESIUM OXIDE 400 MG TAB PO SCH ×2 (07:51→20:41)
[2016-10-30] MEDS: DOCUSATE SODIUM 100 MG/10 ML UDC PO SCH ×2 (07:51→20:39)
[2016-10-30] MEDS: THIAMINE HCL 100 MG TAB PO SCH (07:52)
[2016-10-30] MEDS: PROPRANOLOL HCL 10 MG TAB PO SCH ×3 (07:52→20:41)
[2016-10-30] MEDS: CHOLECALCIFEROL 1000 INTER.UNIT TAB PO SCH (07:53)
[2016-10-30] MEDS: MULTIVITAMINS W/MINERALS 15ML UDP PO SCH (07:53)
[2016-10-30] MEDS: ALBUT/IPRATROP 3MG/0.5MG NEB 3 ML VIAL INH SCH (07:54)
[2016-10-30] MEDS: ENOXAPARIN 40 MG/0.4 ML SYR SQ SCH (08:02)
[2016-10-30] MEDS ORDERED: POTASSIUM CHLORIDE 20 MEQ/15 ML UDC PO ONE (08:45)
[2016-10-30] MEDS: POLYETHYLENE (MIRALAX) 17 GM PACK PO SCH (09:00)
[2016-10-30] MEDS ORDERED: GABAPENTIN 1200MG LOADING DOSE NG ONE (09:15)
[2016-10-30] MEDS ORDERED: DEXMEDETOMIDINE HCL IV PRN (09:30)
[2016-10-30] MEDS ORDERED: SODIUM CHLORIDE 0.9% IV PRN (09:30)
[2016-10-30] MEDS: PANTOprazole INJ 40 MG in SYRINGE 0 ML IV SCH (09:40)
[2016-10-30] MEDS ORDERED: ALBUT/IPRATROP 3MG/0.5MG NEB 3 ML VIAL INH PRN (10:00)
[2016-10-30 10:07] LABS: CALCIUM 9.5 mg/dl (8.5-10.1)
--- NOTE | 2016-10-30 10:28 | Critical Care Progress Note ---
Critical Care Progress Note Date of Service October 30, 2016. ICU Day ICU Day Number: [address] Patel Subjective Patient day 1 s/p extubation No respiratory issues overnight per nursing Patient cannot provide interval history; remains confused and partially sedated Patient has 1 to 1 sitter Objective General Appearance: Intubated sedated Head: normocephalic, atraumatic Neck: trachea midline Respiratory: clear to auscultation Cardiovasular: normal S1S2, Abdomen: non tender, normal bowel sounds, no rebound Upper Extremities: other (multiple ecchymoses of varying age) Lower Extremities: no edema, no deformity, other (multiple ecchymoses of varying age) Neuro: Moves all 4 extremities when lightening sedation Current SOFA Score SOFA Score Response (Comments) Value PaO2/FiO2 (mmHg) < 200 3 Platelets (x10) > 150 0 Bilirubin (mg/dL) < 1.2 0 Do Coma Score 6 - 9 3 Level of Hypotension No Hypotension 0 Creatinine (mg/dL) < 1.2 0 Total 6 Previous SOFA Scores 9 10/21/2016 Assessment & Plan (1) Wernicke-Korsakoff syndrome (2) Alcohol withdrawal (3) Malnutrition related to chronic disease (4) History of traumatic brain injury (5) Multiple contusions (6) Tobacco abuse (7) Alcohol abuse (8) Thrombocytopenia NEUROLOGICAL - GCS: 12 Eyes: 4; Verbal: 2; Motor 6 - Sedation: Dexmedetomidine Current RASS: +1; goal RASS 0 to -1 Overlap Dexmedetomidine taper with Gabapentin protocol - Pain regimen: Discontinue Fentanyl Acute Alcohol Withdrawal - Continue Lorazepam 6 mg q 4 h scheduled and 2 mg PRN per AWSS - Transition to Gabapentin taper; patient has OG tube in place Wernicke's Korsakoff's Syndrome - 2/2 EtOH abuse and nutrient deficiency - Replete vitamins as noted below - Needs assessment for inpatient rehabilitation when medically stable CARDIOVASCULAR - BP: 140-150 systolic, MAP 110s - HR 60-70, NSR - Vasopressor support: None Hypertension Continue Clonidine 0.2 mg qAM Continue Propranolol 10 mg TID RESPIRATORY - RR: 16-18 SpO2: 96% on 2 L NC Day 1 s/p extubation and doing well No evidence of wheezing or adventitious sounds Wean nasal cannula as tolerated to room air - Albuterol nebulizers scaled back to PRN only GASTROINTESTINAL - Diet: Tube feeds, Peptamen, re-started trickle feeds yesterday, current 10 ml/ hr Speech and swallow assessment needed; will attempt to transition to PO if recommendations allow for it Transition to PO diet and meds if passes swallow assessment - GI Prophylaxis: Protonix 40 mg IV daily - Bowel regimen: Colace, Senna, Dulcolax Chronic Malnutrition - 2/2 chronic alcohol abuse - Continue Thiamine 100 mg qAM - Continue Folate 1 mg qAM - Continue Multivitamin daily RENAL//ENDOCRINE - Fluid Balance 24 hour: In 2000 ml / Out 3100 ml / Net - 1100 ml Cumulative: + 3.8 L - Cr: 0.54 - Electrolytes: K 3.6; 60 mEq K-Elvira via NG - BS-110 HEMATOLOGY / INFECTIOUS DISEASES - Tmax: 36.9 WBC: 6 No evidence of active infection at this time - Hb/Hct respectively stable Thrombocytopenia - Resolved; Platelets recovered to 258 (37 on arrival) - 2/2 chronic alcohol consumption - DVT Prophylaxis: Lovenox 40 mg qAM LINES/IV ACCESS - Left arm triple lumen PICC line CODE STATUS - Full Code DISPOSITION - OT/PT: Ordered - ICU due to need for sedations; currently in the process of weaning Resident Physician Supervision Note: Dr. Walter was resident physician during care of patient. I separately evaluated patient and did history and exam. I discussed the case with the resident and generally agree with the findings and plan. Adding gabapentin and hope to wean precedex off. improved from last week, however, remains at high risk for re-intubation Documented By: Andrea Patel DO Consults & Procedures Consultants: Mental health Procedures: Endotracheal intubation 10/20/2016 Bronchoscopy 10/22/2016 Data Medications: Current Inpatient Medications Medications (Trade) Dose Ordered Sig/Rica Route Start Time Stop Time Status Last Admin Dose Admin Acetaminophen (Tylenol Tab) 650 mg Q4H PRN PO 10/20/16 16:00 11/19/16 15:59 Ondansetron HCl (Zofran Inj) 4 mg Q6H PRN IV 10/20/16 16:00 11/19/16 15:59 10/20/16 19:31 4 MG Lorazepam PRN Dosing -Active Protocol Q1H PRN IV 10/20/16 16:00 11/19/16 15:59 10/30/16 03:02 2 MG Pantoprazole Sodium/Syringe (Protonix Inj/ Syringe) 10 ml @ 5 mls/min DAILY@11 IV 10/21/16 11:00 11/20/16 10:59 10/30/16 09:40 5 MLS/MIN Multivitamins Therapeutic (Cerovite Liquid) 15 ml QAM PO 10/21/16 09:00 11/20/16 08:59 10/30/16 07:53 15 ML Folic Acid (Folvite Tab) 1 mg QAM PO 10/21/16 09:00 11/20/16 08:59 10/30/16 07:53 1 MG Magnesium Oxide (Mag-Ox Tab) 400 mg BID PO 10/21/16 10:15 11/20/16 10:14 10/30/16 07:51 400 MG Clonidine HCl (Catapres Tab) 0.2 mg QAM PO 10/23/16 09:00 11/22/16 08:59 10/30/16 07:48 0.2 MG Propranolol HCl (Inderal Tab) 10 mg TID PO 10/22/16 14:00 11/21/16 13:59 10/30/16 07:52 10 MG Polyethylene (Miralax Powder Packet) 17 gm QAM PO 10/23/16 09:00 11/22/16 08:59 10/28/16 08:27 17 GM Docusate Sodium (coLACE SYRUP) 100 mg BID PO 10/23/16 09:00 11/22/16 08:59 10/30/16 07:51 100 MG Heparin Sodium (Porcine) (Heparin 10 Unit/ ml 5 ml Flush) 5 ml PRN PRN FLUSH 10/24/16 01:45 11/23/16 01:44 Enoxaparin Sodium (Lovenox Inj) 40 mg QAM SQ 10/25/16 09:00 11/24/16 08:59 10/30/16 08:02 40 MG Bisacodyl (Dulcolax Supp) 10 mg DAILY PRN SD 10/27/16 09:00 11/26/16 08:59 10/29/16 07:16 10 MG Cholecalciferol (Vitamin D Tab) 2,000 inter.unit DAILY PO 10/27/16 14:30 11/26/16 14:29 10/30/16 07:53 2,000 INTER.UNIT Lorazepam (Ativan Tab) mg Q4H PO 10/27/16 18:00 11/26/16 17:59 10/30/16 09:38 6 MG Senna (Senokot Syrup) 17.6 mg QAM PO 10/29/16 09:00 11/28/16 08:59 10/30/16 07:50 17.6 MG Quetiapine Fumarate (seroQUEL TAB) 50 mg TID PO 10/28/16 14:00 11/27/16 13:59 10/30/16 07:50 50 MG Thiamine HCl (Vitamin B-1 Tab) 100 mg QAM PO 10/30/16 09:00 11/29/16 08:59 10/30/16 07:52 100 MG Triamcinolone Acetonide (Kenalog 0.025% Crm) 1 appln BID EXT 10/29/16 21:00 11/28/16 20:59 10/30/16 07:48 1 APPLN Enteral Nutritional Formula (Peptamen Intense VHP) 1,000 ml UD NG 10/29/16 16:15 11/22/16 22:29 10/29/16 17:25 1,000 ML Albuterol/ Ipratropium (Duoneb) 3 ml Q6H PRN INH 10/30/16 10:00 11/29/16 09:59 Gabapentin 600 mg 600 mg Q6H PO 10/30/16 16:00 10/30/16 22:01 Dexmedetomidine HCl/Sodium Chloride (PreCEDEX INJ/ Nss 50ml) 50 ml @ 0 mls/hr Q0M PRN IV 10/30/16 09:45 11/03/16 09:29 Gabapentin (Neurontin) 600 mg Q8 NG 10/31/16 06:00 10/31/16 22:01 Gabapentin (Neurontin) 600 mg Q12H NG 11/01/16 09:00 11/01/16 21:01 Gabapentin (Neurontin) 600 mg Q24H NG 11/02/16 21:00 11/02/16 21:01 I & O: 24-Hour Column 10/30/16 08:00 Intake Total 1468 ml Output Total 2725 ml Balance -1257 ml Vital Signs: Date Time Temp Pulse Resp B/P Pulse Ox O2 Delivery O2 Flow Rate FiO2 10/30/16 08:30 74 24 95 Nasal Cannula 2.0 10/30/16 08:01 76 25 143/93 10/30/16 08:00 82 21 95 10/30/16 07:54 77 24 96 Nasal Cannula 3.0 10/30/16 07:30 37.1 73 26 99 10/30/16 07:30 93 Nasal Cannula 2.0 10/30/16 07:00 64 24 167/93 97 Nasal Cannula 2.0 10/30/16 06:29 157/99 10/30/16 06:01 73 21 167/110 97 Nasal Cannula 2.0 10/30/16 04:01 36.8 69 29 152/98 10/30/16 04:00 Nasal Cannula 2.0 10/30/16 02:02 79 16 146/96 96 Nasal Cannula 2.0 10/30/16 00:01 36.5 67 18 145/95 96 Nasal Cannula 2.0 10/29/16 23:59 Nasal Cannula 2.0 10/29/16 22:00 74 16 145/96 96 Nasal Cannula 2.0 10/29/16 20:00 Nasal Cannula 2.0 10/29/16 20:00 36.4 82 21 141/88 98 Nasal Cannula 2.0 10/29/16 19:53 70 22 94 Nasal Cannula 3.0 10/29/16 18:01 74 15 139/90 93 Nasal Cannula 2.0 10/29/16 16:01 36.9 71 16 165/97 92 Nasal Cannula 2.0 10/29/16 16:00 Nasal Cannula 2.0 10/29/16 15:27 88 20 96 Nasal Cannula 3.0 10/29/16 14:21 70 18 182/98 97 Nasal Cannula 2.0 10/29/16 12:58 36.9 73 14 115/83 94 Nasal Cannula 2.0 10/29/16 12:00 Nasal Cannula 2.0 10/29/16 11:23 69 144/93 99 Humidified Oxygen Laboratory Results: Last 24 Hours Test 10/30/16 05:15 White Blood Count 6.40 K/uL Red Blood Count 3.71 M/uL Hemoglobin 11.7 g/dL Hematocrit 32.9 % Mean Corpuscular Volume 88.7 fL Mean Corpuscular Hemoglobin 31.5 pg Mean Corpuscular Hemoglobin Concent 35.6 g/dl Platelet Count 258 K/uL Mean Platelet Volume 9.9 fL Neutrophils (%) (Auto) 71.5 % Lymphocytes (%) (Auto) 17.7 % Monocytes (%) (Auto) 9.5 % Eosinophils (%) (Auto) 0.5 % Basophils (%) (Auto) 0.6 % Neutrophils # (Auto) 4.58 K/uL Lymphocytes # (Auto) 1.13 K/uL Monocytes # (Auto) 0.61 K/uL Eosinophils # (Auto) 0.03 K/uL Basophils # (Auto) 0.04 K/uL RDW Standard Deviation 39.5 fL RDW Coefficient of Variation 12.3 % Immature Granulocyte % (Auto) 0.2 % Immature Granulocyte # (Auto) 0.01 K/uL Sodium Level 141 mmol/L Potassium Level 3.6 mmol/L Chloride Level 103 mmol/L Carbon Dioxide Level 26 mmol/L Anion Gap 12.0 mmol/L Blood Urea Nitrogen 10 mg/dl Creatinine 0.54 mg/dl Est Creatinine Clear Calc Drug Dose 185.8 ml/min Estimated GFR () 137.0 Estimated GFR (Non- 118.2 BUN/Creatinine Ratio 18.9 Random Glucose 100 mg/dl Calcium Level 9.5 mg/dl Phosphorus Level 3.9 mg/dl Magnesium Level 2.4 mg/dl Total Bilirubin 1.1 mg/dl Aspartate Amino Transf (AST/SGOT) 37 U/L Alanine Aminotransferase (ALT/SGPT) 59 U/L Alkaline Phosphatase 144 U/L Total Protein 7.2 gm/dl Albumin 3.2 gm/dl Globulin 4.0 gm/dl Albumin/Globulin Ratio 0.8 Problem Qualifiers (1) Alcohol withdrawal: Complication of substance-induced condition: with delirium Qualified Codes: F10.231 - Alcohol dependence with withdrawal delirium
[2016-10-30] MEDS: GABAPENTIN 600MG Q6H DOSE PO SCH ×2 (15:18→21:22)
[2016-10-30] MEDS ORDERED: GABAPENTIN 600MG Q6H DOSE PO SCH (16:00)
--- NOTE | 2016-10-30 17:52 | Progress Note ---
Medicine Progress Note Date & Time of Visit: October 30, 2016 at 17:37. Subjective Pt was seeing and examined lying in bed, lethargy he was extubated yesterday on Precedex drip he said that he feels weak Denies any chest pain and palpitation Objective Last 8 Hrs Date Time Temp Pulse Resp B/P Pulse Ox O2 Delivery O2 Flow Rate FiO2 10/30/16 15:24 98 Nasal Cannula 2.0 10/30/16 13:00 77 19 10/30/16 12:01 36.9 66 23 131/93 98 Nasal Cannula 2.0 10/30/16 12:00 68 21 98 10/30/16 12:00 98 Nasal Cannula 2.0 10/30/16 11:00 71 24 98 10/30/16 10:01 79 16 128/90 10/30/16 10:00 79 21 95 Nasal Cannula 2.0 Physical Exam: General- lethargy, extubated day 1 Head- atraumatic Eyes- PERRL ENT- Tongue midline, extubated Neck- supple, no JVD Lungs- crackles Heart- Regular, no murmur Abdomen- normal bowel sounds, soft Extremities- No edema Neuro- awake but lethargy, able to squeeze finger, move all extremities Skin- warm & dry Laboratory Results: Last 24 Hours Test 10/30/16 05:15 10/30/16 11:32 White Blood Count 6.40 K/uL Red Blood Count 3.71 M/uL Hemoglobin 11.7 g/dL Hematocrit 32.9 % Mean Corpuscular Volume 88.7 fL Mean Corpuscular Hemoglobin 31.5 pg Mean Corpuscular Hemoglobin Concent 35.6 g/dl Platelet Count 258 K/uL Mean Platelet Volume 9.9 fL Neutrophils (%) (Auto) 71.5 % Lymphocytes (%) (Auto) 17.7 % Monocytes (%) (Auto) 9.5 % Eosinophils (%) (Auto) 0.5 % Basophils (%) (Auto) 0.6 % Neutrophils # (Auto) 4.58 K/uL Lymphocytes # (Auto) 1.13 K/uL Monocytes # (Auto) 0.61 K/uL Eosinophils # (Auto) 0.03 K/uL Basophils # (Auto) 0.04 K/uL RDW Standard Deviation 39.5 fL RDW Coefficient of Variation 12.3 % Immature Granulocyte % (Auto) 0.2 % Immature Granulocyte # (Auto) 0.01 K/uL Sodium Level 141 mmol/L Potassium Level 3.6 mmol/L Chloride Level 103 mmol/L Carbon Dioxide Level 26 mmol/L Anion Gap 12.0 mmol/L Blood Urea Nitrogen 10 mg/dl Creatinine 0.54 mg/dl Est Creatinine Clear Calc Drug Dose 185.8 ml/min Estimated GFR () 137.0 Estimated GFR (Non- 118.2 BUN/Creatinine Ratio 18.9 Random Glucose 100 mg/dl Calcium Level 9.5 mg/dl Phosphorus Level 3.9 mg/dl Magnesium Level 2.4 mg/dl Total Bilirubin 1.1 mg/dl Aspartate Amino Transf (AST/SGOT) 37 U/L Alanine Aminotransferase (ALT/SGPT) 59 U/L Alkaline Phosphatase 144 U/L Total Protein 7.2 gm/dl Albumin 3.2 gm/dl Globulin 4.0 gm/dl Albumin/Globulin Ratio 0.8 Bedside Glucose 130 mg/dl Assessment & Plan DELIRIUM TREMENS -In the ICU intubated on vent support -On versed and Precedex drip -On alcohol withdrawal protocol with gabapentin and Librium -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 -Continue thiamine, Folic acid and IVF -Consider alcohol rehab once discharge - weaning trial - Will give lasix 20mg x1 -Plan to titrate off sedation - Ativan 4mg IV q4hr -Gabapentin and Librium d/c - EEG done showed no seizure activity 10/30 Day 1 s/p extubation Very lethargy, On Precedex drip, No respiratory complication overnight Continue to titrate precedex off continue thiamine and folic acid On gabapentin protocol Continue ativan PT/OT consider inpatient rehab when stable PNEUMONIA Mostly aspiration pneumonia CXR showed Progression of bibasilar opacities, right greater than left Procalcitonin normal, afebrile, no leukocytosis had a bronch done on 10/22 Bronchial washings sent for culture and Gram stain, cx growth normal amish Fungal elements, and AFB stain negative s/p extubation day 1 will monitor closely because pt is at risk for reintubation stable TRANSAMINITIS -likely secondary to alcohol abuse -Trending down to normal -Hepatitis B and C negative -continue monitor liver enzymes - stable THROMBOCYTOPENIA -likely secondary to alcohol abuse -platelet 258 today -No signs of bleeding -avoid anticoagulation -Resolved ELEVATED LACTATE -Due to alcohol intoxication on admission -no signs of infection, procalcitonin negative, blood cx no growth ELEVATED CK LEVEL Continue IVF HYPOKALEMIA -K 3.6 -Monitor BMP -Stable TOBACCO ABUSE -Nicotine patch ordered DVT PROPHYLAXIS: SCDs, Lovenox CODE STATUS: FULL CODE Consultants: BOX STACKER Procedures: Bronchoscopy Current Inpatient Medications: Current Inpatient Medications Medications (Trade) Dose Ordered Sig/Rica Route Start Time Stop Time Status Last Admin Dose Admin Acetaminophen (Tylenol Tab) 650 mg Q4H PRN PO 10/20/16 16:00 11/19/16 15:59 Ondansetron HCl (Zofran Inj) 4 mg Q6H PRN IV 10/20/16 16:00 11/19/16 15:59 10/20/16 19:31 4 MG Lorazepam PRN Dosing -Active Protocol Q1H PRN IV 10/20/16 16:00 11/19/16 15:59 10/30/16 16:02 2 MG Pantoprazole Sodium/Syringe (Protonix Inj/ Syringe) 10 ml @ 5 mls/min DAILY@11 IV 10/21/16 11:00 11/20/16 10:59 10/30/16 09:40 5 MLS/MIN Multivitamins Therapeutic (Cerovite Liquid) 15 ml QAM PO 10/21/16 09:00 11/20/16 08:59 10/30/16 07:53 15 ML Folic Acid (Folvite Tab) 1 mg QAM PO 10/21/16 09:00 11/20/16 08:59 10/30/16 07:53 1 MG Magnesium Oxide (Mag-Ox Tab) 400 mg BID PO 10/21/16 10:15 11/20/16 10:14 10/30/16 07:51 400 MG Clonidine HCl (Catapres Tab) 0.2 mg QAM PO 10/23/16 09:00 11/22/16 08:59 10/30/16 07:48 0.2 MG Propranolol HCl (Inderal Tab) 10 mg TID PO 10/22/16 14:00 11/21/16 13:59 10/30/16 13:32 10 MG Polyethylene (Miralax Powder Packet) 17 gm QAM PO 10/23/16 09:00 11/22/16 08:59 10/30/16 09:00 17 GM Docusate Sodium (coLACE SYRUP) 100 mg BID PO 10/23/16 09:00 11/22/16 08:59 10/30/16 07:51 100 MG Heparin Sodium (Porcine) (Heparin 10 Unit/ ml 5 ml Flush) 5 ml PRN PRN FLUSH 10/24/16 01:45 11/23/16 01:44 Enoxaparin Sodium (Lovenox Inj) 40 mg QAM SQ 10/25/16 09:00 11/24/16 08:59 10/30/16 08:02 40 MG Bisacodyl (Dulcolax Supp) 10 mg DAILY PRN [place] 10/27/16 09:00 11/26/16 08:59 10/29/16 07:16 10 MG Cholecalciferol (Vitamin D Tab) 2,000 inter.unit DAILY PO 10/27/16 14:30 11/26/16 14:29 10/30/16 07:53 2,000 INTER.UNIT Lorazepam (Ativan Tab) 6 mg Q4H PO 10/27/16 18:00 11/26/16 17:59 10/30/16 13:11 6 MG Senna (Senokot Syrup) 17.6 mg QAM PO 10/29/16 09:00 11/28/16 08:59 10/30/16 07:50 17.6 MG Quetiapine Fumarate (seroQUEL TAB) 50 mg TID PO 10/28/16 14:00 11/27/16 13:59 10/30/16 13:31 50 MG Thiamine HCl (Vitamin B-1 Tab) 100 mg QAM PO 10/30/16 09:00 11/29/16 08:59 10/30/16 07:52 100 MG Triamcinolone Acetonide (Kenalog 0.025% Crm) 1 appln BID EXT 10/29/16 21:00 11/28/16 20:59 10/30/16 07:48 1 APPLN Enteral Nutritional Formula (Peptamen Intense VHP) 1,000 ml UD NG 10/29/16 16:15 11/22/16 22:29 10/29/16 17:25 1,000 ML Albuterol/ Ipratropium 3 ml 3 ml Q6H PRN INH 10/30/16 10:00 11/29/16 09:59 Dexmedetomidine HCl/Sodium Chloride (PreCEDEX INJ/ Nss 50ml) 50 ml @ 0 mls/hr Q0M PRN IV 10/30/16 09:45 11/03/16 09:29 Gabapentin (Neurontin) 600 mg Q6H PO 10/30/16 16:00 10/30/16 22:01 10/30/16 15:18 600 MG Gabapentin (Neurontin) 600 mg Q8 NG 10/31/16 06:00 10/31/16 22:01 Gabapentin (Neurontin) 600 mg Q12H NG 11/01/16 09:00 11/01/16 21:01 Gabapentin (Neurontin) 600 mg Q24H NG 11/02/16 21:00 11/02/16 21:01
[2016-10-31] VITALS (25 sets, daily range): BP systolic 93–168; BP diastolic 69–111; PULSE 62–82; TEMP 36.5–36.8; O2SAT 91–99
[2016-10-31] MEDS: LORAZEPAM 2 MG/ML 1 ML VIAL IV PRN ×8 (00:56→22:49)
[2016-10-31] MEDS: SODIUM CHLORIDE 0.9% IV PRN ×7 (01:03→20:39)
[2016-10-31] MEDS: DEXMEDETOMIDINE HCL IV PRN ×7 (01:03→20:39)
[2016-10-31] MEDS: LORAZEPAM 2 MG TAB PO SCH ×6 (01:56→20:53)
[2016-10-31] MEDS ORDERED: HALOPERIDOL LACTATE 5 MG/ML 1 ML VIAL IV STA (02:17)
[2016-10-31] MEDS ORDERED: HALOPERIDOL LACTATE 5 MG/ML 1 ML VIAL ONE (02:19)
[2016-10-31] MEDS: GABAPENTIN 600MG Q8H DOSE NG SCH ×3 (05:41→20:54)
[2016-10-31 05:52] LABS: HEMATOCRIT 34.3 % (42-52); MEAN CELL VOLUME 89.1 fL (80-100); MEAN CORPUSCULAR HEMOGLOBIN 31.4 pg (25-34); MEAN CORPUSCULAR HGB CONC 35.3 g/dl (32-36); MEAN PLATELET VOLUME 9.8 fL (7.4-10.4); PLATELET COUNT 273 K/uL (130-400); RED BLOOD COUNT 3.85 M/uL (4.7-6.1)
[2016-10-31] MEDS ORDERED: GABAPENTIN 600MG Q8H DOSE NG SCH (06:00)
[2016-10-31 06:28] LABS: BUN/CREATININE RATIO 15.5 (10-20); CALCIUM 8.8 mg/dl (8.5-10.1); CREATININE 0.48 mg/dl (0.60-1.40); MAGNESIUM 2.5 mg/dl (1.8-2.4); POTASSIUM 3.4 mmol/L (3.5-5.1)
[2016-10-31 06:35] LABS: ALB/GLOB RATIO 0.8 (0.9-2); PHOSPHORUS 3.3 mg/dl (2.5-4.9)
[2016-10-31] MEDS ORDERED: POTASSIUM CHLORIDE 20 MEQ/15 ML UDC PO STA (06:46)
[2016-10-31] MEDS: TRIAMCINOLONE ACET 0.025% CR 15 GM TUBE EXT SCH ×2 (07:33→20:46)
[2016-10-31] MEDS: THIAMINE HCL 100 MG TAB PO SCH (07:34)
[2016-10-31] MEDS: PROPRANOLOL HCL 10 MG TAB PO SCH ×3 (07:34→20:49)
[2016-10-31] MEDS: CLONIDINE HCL 0.1 MG TAB PO SCH ×3 (07:34→20:47)
[2016-10-31] MEDS: QUETIAPINE FUMARATE 25 MG TAB PO SCH ×3 (07:35→20:50)
[2016-10-31] MEDS: SENNA 17.6 MG/10 ML UDP PO SCH (07:36)
[2016-10-31] MEDS: CHOLECALCIFEROL 1000 INTER.UNIT TAB PO SCH (07:36)
[2016-10-31] MEDS: DOCUSATE SODIUM 100 MG/10 ML UDC PO SCH ×2 (07:36→20:48)
[2016-10-31] MEDS: MULTIVITAMINS W/MINERALS 15ML UDP PO SCH (07:36)
[2016-10-31] MEDS: POLYETHYLENE (MIRALAX) 17 GM PACK PO SCH (07:37)
[2016-10-31] MEDS: MAGNESIUM OXIDE 400 MG TAB PO SCH (07:37)
[2016-10-31] MEDS: ENOXAPARIN 40 MG/0.4 ML SYR SQ SCH (07:37)
[2016-10-31] MEDS ORDERED: POTASSIUM CHLORIDE 20 MEQ/15 ML UDC PO ONE (08:00)
[2016-10-31] MEDS ORDERED: POTASSIUM CHLORIDE 20 MEQ TABCR PO ONE (08:00)
[2016-10-31] MEDS: PANTOprazole INJ 40 MG in SYRINGE 0 ML IV SCH (09:49)
[2016-10-31] MEDS ORDERED: QUETIAPINE FUMARATE 25 MG TAB NG STA (09:56)
[2016-10-31] MEDS: PEPTAMEN INTENSE VHP 1000ML BAG NG SCH ×3 (10:38→23:33)
--- NOTE | 2016-10-31 11:30 | Critical Care Progress Note ---
Critical Care Progress Note Date of Service October 31, 2016. ICU Day ICU Day Number: [address] Patel Subjective Very agitated overnight Required 10 mg IV Ativan + 10 mg Haldol This morning, he is more calm Has 1 to 1 sitter No issues currently; currently trying to wean off Precedex Objective General Appearance: calm, comfortable Head: normocephalic, atraumatic Neck: trachea midline, no stridor, no JVD Respiratory: clear to auscultation, no added sounds or wheezing Cardiovascular: normal S1S2, no added sounds or murmurs Abdomen: non tender, normal bowel sounds, no rebound Upper Extremities: other (multiple ecchymoses of varying age) Lower Extremities: no edema, no deformity, other (multiple ecchymoses of varying age), no calf tenderness Neuro: Moves all 4 extremities when lightening sedation, Alert to person only, CAM ICU positive, cannot purposefully follow commands Current SOFA Score SOFA Score Response (Comments) Value PaO2/FiO2 (mmHg) < 200 3 Platelets (x10) > 150 0 Bilirubin (mg/dL) < 1.2 0 Starlight Coma Score 13 - 14 1 Level of Hypotension No Hypotension 0 Creatinine (mg/dL) < 1.2 0 Total 4 Previous SOFA Scores 9 10/21/2016 Assessment & Plan (1) Wernicke-Korsakoff syndrome (2) Alcohol withdrawal (3) Malnutrition related to chronic disease (4) History of traumatic brain injury (5) Multiple contusions (6) Tobacco abuse (7) Alcohol abuse (8) Thrombocytopenia NEUROLOGICAL - GCS: 13 Eyes: 4; Verbal: 3; Motor 6 - Sedation: Dexmedetomidine, currently weaning Brought infusion rate down to 1.0 mcg/kg/min yesterday but did not tolerate any further lowering Current RASS: +1; goal RASS 0 to -1 Acute Alcohol Withdrawal - Continue Lorazepam 6 mg q 4 h scheduled and 2 mg PRN per AWSS - Continue Gabapentin taper - Increased Clonidine to 0.2 mg TID - Increased agitation with Precedex wean Increase Seroquel to 75 mg TID Wernicke's Korsakoff's Syndrome - 2/2 EtOH abuse and nutrient deficiency - Replete vitamins as noted below - Needs assessment for inpatient rehabilitation when medically stable CARDIOVASCULAR - BP: 140-150 systolic, MAP 110s - HR 60-70, NSR - Vasopressor support: None Hypertension Increase Clonidine to 0.2 mg TID Continue Propranolol 10 mg TID RESPIRATORY - RR: 16-18 SpO2: 96% on 2 L NC Day 2 s/p extubation and doing well No evidence of wheezing or adventitious sounds Wean nasal cannula as tolerated to room air - Albuterol nebulizers scaled back to PRN only GASTROINTESTINAL - Diet: Tube feeds, Peptamen, re-started trickle feeds yesterday, current 10 ml/ hr Did not pass speech and swallow assessment yesterday; remains NPO Increase Peptamen feeds to goal 65 ml/hr Increase at rate of 15 ml every 4 hours until goal reached - GI Prophylaxis: Protonix 40 mg IV daily - Bowel regimen: Colace, Senna, Dulcolax Chronic Malnutrition - 2/2 chronic alcohol abuse - Continue Thiamine 100 mg qAM - Continue Folate 1 mg qAM - Continue Multivitamin daily RENAL//ENDOCRINE - Fluid Balance 24 hour: In 340 ml / Out 800 ml / Net - 460 ml Cumulative: + 3.3 L - Cr stable at 0.48 - Electrolytes: K 3.4 this morning Repleted total 80 mEq KCl this morning Magnesium 2.5 today; will decreased magnesium oxide to daily - BS HEMATOLOGY / INFECTIOUS DISEASES - Tmax: AFebrile WBC: 6 No evidence of active infection at this time - Hb/Hct stable at 21/34 Thrombocytopenia - Resolved; Platelets recovered to 273 (37 on arrival) - 2/2 chronic alcohol consumption - DVT Prophylaxis: Lovenox 40 mg qAM LINES/IV ACCESS - Left arm triple lumen PICC line CODE STATUS - Full Code DISPOSITION - OT/PT: Ordered - ICU due to need for sedations; currently in the process of weaning Resident Physician Supervision Note: Dr. Walter was resident physician during care of patient. I separately evaluated patient and did history and exam. I discussed the case with the resident and generally agree with the findings and plan. Continued Hyperactive agitation. Continued to slowly wean precedex; however, still requiring IV sedatives with frequent boluses I have personally spent 35 minutes of critical care time in the direct management of this patient. This is a life/limb threatening event. This includes time spent evaluating patient, direct bedside care, chart review, placing orders, interpretation of diagnostic studies, discussion with consultants, patient, and family members, as well as other required patient management activities. This time is exclusive of all separately billable procedures, and teaching time and separate from and in addition to any other critical care service time. Documented By: Andrea Patel DO Consults & Procedures Consultants: Mental health Procedures: Endotracheal intubation 10/20/2016 Bronchoscopy 10/22/2016 Data Medications: Current Inpatient Medications Medications (Trade) Dose Ordered Sig/Rica Route Start Time Stop Time Status Last Admin Dose Admin Acetaminophen (Tylenol Tab) 650 mg Q4H PRN PO 10/20/16 16:00 11/19/16 15:59 Ondansetron HCl (Zofran Inj) 4 mg Q6H PRN IV 10/20/16 16:00 11/19/16 15:59 10/20/16 19:31 4 MG Lorazepam PRN Dosing -Active Protocol Q1H PRN IV 10/20/16 16:00 11/19/16 15:59 10/31/16 10:59 2 MG Pantoprazole Sodium/Syringe (Protonix Inj/ Syringe) 10 ml @ 5 mls/min DAILY@11 IV 10/21/16 11:00 11/20/16 10:59 10/31/16 09:49 5 MLS/MIN Multivitamins Therapeutic (Cerovite Liquid) 15 ml QAM PO 10/21/16 09:00 11/20/16 08:59 10/31/16 07:36 15 ML Folic Acid (Folvite Tab) 1 mg QAM PO 10/21/16 09:00 11/20/16 08:59 10/31/16 07:35 1 MG Propranolol HCl (Inderal Tab) 10 mg TID PO 10/22/16 14:00 11/21/16 13:59 10/31/16 07:34 10 MG Polyethylene (Miralax Powder Packet) 17 gm QAM PO 10/23/16 09:00 11/22/16 08:59 10/31/16 07:37 17 GM Docusate Sodium (coLACE SYRUP) 100 mg BID PO 10/23/16 09:00 11/22/16 08:59 10/31/16 07:36 100 MG Heparin Sodium (Porcine) (Heparin 10 Unit/ ml 5 ml Flush) 5 ml PRN PRN FLUSH 10/24/16 01:45 11/23/16 01:44 Enoxaparin Sodium (Lovenox Inj) 40 mg QAM SQ 10/25/16 09:00 11/24/16 08:59 10/31/16 07:37 40 MG Bisacodyl (Dulcolax Supp) 10 mg DAILY PRN [place] 10/27/16 09:00 11/26/16 08:59 10/29/16 07:16 10 MG Cholecalciferol (Vitamin D Tab) 2,000 inter.unit DAILY PO 10/27/16 14:30 11/26/16 14:29 10/31/16 07:36 2,000 INTER.UNIT Lorazepam (Ativan Tab) 6 mg Q4H PO 10/27/16 18:00 11/26/16 17:59 10/31/16 09:47 6 MG Senna (Senokot Syrup) 17.6 mg QAM PO 10/29/16 09:00 11/28/16 08:59 10/31/16 07:36 17.6 MG Thiamine HCl (Vitamin B-1 Tab) 100 mg QAM PO 10/30/16 09:00 11/29/16 08:59 10/31/16 07:34 100 MG Triamcinolone Acetonide (Kenalog 0.025% Crm) 1 appln BID EXT 10/29/16 21:00 11/28/16 20:59 10/31/16 07:33 1 APPLN Enteral Nutritional Formula (Peptamen Intense VHP) 1,000 ml UD NG 10/29/16 16:15 10/31/16 10:38 25 ML Albuterol/ Ipratropium 3 ml 3 ml Q6H PRN INH 10/30/16 10:00 11/29/16 09:59 Dexmedetomidine HCl/Sodium Chloride (PreCEDEX INJ/ Nss 50ml) 50 ml @ 0 mls/hr Q0M PRN IV 10/30/16 09:45 11/03/16 09:29 10/31/16 10:38 7.9 MLS/HR Gabapentin (Neurontin) 600 mg Q8 NG 10/31/16 06:00 10/31/16 22:01 10/31/16 05:41 600 MG Gabapentin (Neurontin) 600 mg Q12H NG 11/01/16 09:00 11/01/16 21:01 Gabapentin (Neurontin) 600 mg Q24H NG 11/02/16 21:00 11/02/16 21:01 Clonidine HCl (Catapres Tab) 0.2 mg TID PO 10/31/16 14:00 11/30/16 13:59 Quetiapine Fumarate (seroQUEL TAB) 75 mg TID PO 10/31/16 14:00 11/30/16 13:59 Magnesium Oxide (Mag-Ox Tab) 400 mg DAILY PO 11/01/16 09:00 12/01/16 08:59 I & O: 24-Hour Column 10/31/16 08:00 Intake Total 1206 ml Output Total 1525 ml Balance -319 ml Vital Signs: Date Time Temp Pulse Resp B/P Pulse Ox O2 Delivery O2 Flow Rate FiO2 10/31/16 10:02 70 23 130/108 98 10/31/16 07:57 68 23 145/96 95 Room Air 10/31/16 07:02 36.8 78 27 158/111 94 Room Air 10/31/16 06:01 76 25 137/97 94 Room Air 10/31/16 05:01 65 21 134/93 93 Room Air 10/31/16 04:01 36.5 69 22 168/109 95 Room Air 10/31/16 04:00 Nasal Cannula 2.0 10/31/16 03:01 82 22 161/101 Room Air 10/31/16 02:01 75 18 131/83 96 Room Air 10/31/16 01:01 69 20 128/97 96 Room Air 10/31/16 00:08 36.6 72 21 151/100 99 Room Air 10/30/16 23:59 Nasal Cannula 2.0 10/30/16 23:01 73 28 135/86 93 Room Air 10/30/16 22:01 36.5 62 18 147/97 100 Nasal Cannula 2.0 10/30/16 20:01 62 19 149/93 97 10/30/16 20:01 62 19 149/93 97 Nasal Cannula 2.0 10/30/16 20:00 Nasal Cannula 2.0 10/30/16 20:00 63 20 97 10/30/16 15:24 98 Nasal Cannula 2.0 10/30/16 13:00 77 19 10/30/16 12:01 36.9 66 23 131/93 98 Nasal Cannula 2.0 10/30/16 12:00 68 21 98 10/30/16 12:00 98 Nasal Cannula 2.0 Laboratory Results: Last 24 Hours Test 10/30/16 11:32 10/31/16 05:35 Bedside Glucose 130 mg/dl White Blood Count 6.70 K/uL Red Blood Count 3.85 M/uL Hemoglobin 12.1 g/dL Hematocrit 34.3 % Mean Corpuscular Volume 89.1 fL Mean Corpuscular Hemoglobin 31.4 pg Mean Corpuscular Hemoglobin Concent 35.3 g/dl RDW Standard Deviation 40.1 fL RDW Coefficient of Variation 12.3 % Platelet Count 273 K/uL Mean Platelet Volume 9.8 fL Sodium Level 144 mmol/L Potassium Level 3.4 mmol/L Chloride Level 107 mmol/L Carbon Dioxide Level 29 mmol/L Anion Gap 8.0 mmol/L Blood Urea Nitrogen 7 mg/dl Creatinine 0.48 mg/dl Est Creatinine Clear Calc Drug Dose 200.0 ml/min Estimated GFR () 143.8 Estimated GFR (Non- 124.1 BUN/Creatinine Ratio 15.5 Random Glucose 101 mg/dl Calcium Level 8.8 mg/dl Phosphorus Level 3.3 mg/dl Magnesium Level 2.5 mg/dl Total Bilirubin 0.8 mg/dl Aspartate Amino Transf (AST/SGOT) 34 U/L Alanine Aminotransferase (ALT/SGPT) 60 U/L Alkaline Phosphatase 152 U/L Total Protein 7.4 gm/dl Albumin 3.3 gm/dl Globulin 4.1 gm/dl Albumin/Globulin Ratio 0.8 Problem Qualifiers (1) Alcohol withdrawal: Complication of substance-induced condition: with delirium Qualified Codes: F10.231 - Alcohol dependence with withdrawal delirium
--- NOTE | 2016-10-31 19:19 | Progress Note ---
Medicine Progress Note Date & Time of Visit: October 31, 2016 at 19:13. Subjective Pt was seen and examined Lying in bed bed with no distress Pt was very agitated last night He is still on the Precedex drip and required addition sedative to keep him calm Pt said that he feels weak he is on 1:1 observation denies any chest pain, palpitation and SOB Objective Last 8 Hrs Date Time Temp Pulse Resp B/P Pulse Ox O2 Delivery O2 Flow Rate FiO2 10/31/16 18:00 69 25 97 Room Air 10/31/16 17:01 69 18 96/69 96 Room Air 10/31/16 17:00 68 19 96 10/31/16 16:01 36.6 69 14 131/86 95 Room Air 10/31/16 16:00 Room Air 10/31/16 16:00 67 23 96 10/31/16 15:01 72 23 128/87 94 Room Air 10/31/16 15:00 71 16 91 10/31/16 14:01 62 19 142/94 96 10/31/16 12:01 36.6 72 18 133/86 96 Room Air 10/31/16 12:00 Room Air Physical Exam: General- lethargy, extubated day 1 Head- atraumatic Eyes- PERRL ENT- Tongue midline, extubated Neck- supple, no JVD Lungs- crackles Heart- Regular, no murmur Abdomen- normal bowel sounds, soft Extremities- No edema Neuro- awake but lethargy, able to squeeze finger, move all extremities Skin- warm & dry Laboratory Results: Last 24 Hours Test 10/31/16 05:35 10/31/16 12:28 White Blood Count 6.70 K/uL Red Blood Count 3.85 M/uL Hemoglobin 12.1 g/dL Hematocrit 34.3 % Mean Corpuscular Volume 89.1 fL Mean Corpuscular Hemoglobin 31.4 pg Mean Corpuscular Hemoglobin Concent 35.3 g/dl RDW Standard Deviation 40.1 fL RDW Coefficient of Variation 12.3 % Platelet Count 273 K/uL Mean Platelet Volume 9.8 fL Sodium Level 144 mmol/L Potassium Level 3.4 mmol/L Chloride Level 107 mmol/L Carbon Dioxide Level 29 mmol/L Anion Gap 8.0 mmol/L Blood Urea Nitrogen 7 mg/dl Creatinine 0.48 mg/dl Est Creatinine Clear Calc Drug Dose 200.0 ml/min Estimated GFR () 143.8 Estimated GFR (Non- 124.1 BUN/Creatinine Ratio 15.5 Random Glucose 101 mg/dl Calcium Level 8.8 mg/dl Phosphorus Level 3.3 mg/dl Magnesium Level 2.5 mg/dl Total Bilirubin 0.8 mg/dl Aspartate Amino Transf (AST/SGOT) 34 U/L Alanine Aminotransferase (ALT/SGPT) 60 U/L Alkaline Phosphatase 152 U/L Total Protein 7.4 gm/dl Albumin 3.3 gm/dl Globulin 4.1 gm/dl Albumin/Globulin Ratio 0.8 Bedside Glucose 111 mg/dl Assessment & Plan DELIRIUM TREMENS -In the ICU intubated on vent support -On versed and Precedex drip -On alcohol withdrawal protocol with gabapentin and Librium -pigs feet cleaner on board for management -Continue thiamine, Folic acid and IVF -Consider alcohol rehab once discharge - weaning trial - Will give lasix 20mg x1 -Plan to titrate off sedation - Ativan 4mg IV q4hr -Gabapentin and Librium d/c - EEG done showed no seizure activity 10/31 Day 3 s/p extubation was very agitated last night On precedex drip, critical care team is trying to wean him off it slowly No respiratory complication overnight Continue to titrate precedex off continue thiamine and folic acid On gabapentin protocol Continue ativan IV PT/OT consider inpatient rehab when stable PNEUMONIA Mostly aspiration pneumonia CXR showed Progression of bibasilar opacities, right greater than left Procalcitonin normal, afebrile, no leukocytosis had a bronch done on 10/22 Bronchial washings sent for culture and Gram stain, cx growth normal amish Fungal elements, and AFB stain negative s/p extubation day 2 will monitor closely because pt is at risk for reintubation stable TRANSAMINITIS -likely secondary to alcohol abuse -Trending down to normal -Hepatitis B and C negative -continue monitor liver enzymes - stable THROMBOCYTOPENIA -likely secondary to alcohol abuse -platelet 258 today -No signs of bleeding -avoid anticoagulation -Resolved ELEVATED LACTATE -Due to alcohol intoxication on admission -no signs of infection, procalcitonin negative, blood cx no growth ELEVATED CK LEVEL Continue IVF HYPOKALEMIA -K 3.4 - K replaced -Monitor BMP -Stable TOBACCO ABUSE -Nicotine patch ordered DVT PROPHYLAXIS: SCDs, Lovenox CODE STATUS: FULL CODE 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 Procedures: Bronchoscopy Current Inpatient Medications: Current Inpatient Medications Medications (Trade) Dose Ordered Sig/Rica Route Start Time Stop Time Status Last Admin Dose Admin Acetaminophen (Tylenol Tab) 650 mg Q4H PRN PO 10/20/16 16:00 11/19/16 15:59 Ondansetron HCl (Zofran Inj) 4 mg Q6H PRN IV 10/20/16 16:00 11/19/16 15:59 10/20/16 19:31 4 MG Lorazepam PRN Dosing -Active Protocol Q1H PRN IV 10/20/16 16:00 11/19/16 15:59 10/31/16 16:04 2 MG Pantoprazole Sodium/Syringe (Protonix Inj/ Syringe) 10 ml @ 5 mls/min DAILY@11 IV 10/21/16 11:00 11/20/16 10:59 10/31/16 09:49 5 MLS/MIN Multivitamins Therapeutic (Cerovite Liquid) 15 ml QAM PO 10/21/16 09:00 11/20/16 08:59 10/31/16 07:36 15 ML Folic Acid (Folvite Tab) 1 mg QAM PO 10/21/16 09:00 11/20/16 08:59 10/31/16 07:35 1 MG Propranolol HCl (Inderal Tab) 10 mg TID PO 10/22/16 14:00 11/21/16 13:59 10/31/16 13:14 10 MG Polyethylene (Miralax Powder Packet) 17 gm QAM PO 10/23/16 09:00 11/22/16 08:59 10/31/16 07:37 17 GM Docusate Sodium (coLACE SYRUP) 100 mg BID PO 10/23/16 09:00 11/22/16 08:59 10/31/16 07:36 100 MG Heparin Sodium (Porcine) (Heparin 10 Unit/ ml 5 ml Flush) 5 ml PRN PRN FLUSH 10/24/16 01:45 11/23/16 01:44 10/31/16 13:16 10 ML Enoxaparin Sodium (Lovenox Inj) 40 mg QAM SQ 10/25/16 09:00 11/24/16 08:59 10/31/16 07:37 40 MG Bisacodyl (Dulcolax Supp) 10 mg DAILY PRN [place] 10/27/16 09:00 11/26/16 08:59 10/29/16 07:16 10 MG Cholecalciferol (Vitamin D Tab) 2,000 inter.unit DAILY PO 10/27/16 14:30 11/26/16 14:29 10/31/16 07:36 2,000 INTER.UNIT Lorazepam (Ativan Tab) 6 mg Q4H PO 10/27/16 18:00 11/26/16 17:59 10/31/16 17:59 6 MG Senna (Senokot Syrup) 17.6 mg QAM PO 10/29/16 09:00 11/28/16 08:59 10/31/16 07:36 17.6 MG Thiamine HCl (Vitamin B-1 Tab) 100 mg QAM PO 10/30/16 09:00 11/29/16 08:59 10/31/16 07:34 100 MG Triamcinolone Acetonide (Kenalog 0.025% Crm) 1 appln BID EXT 10/29/16 21:00 11/28/16 20:59 10/31/16 07:33 1 APPLN Enteral Nutritional Formula (Peptamen Intense VHP) 1,000 ml UD NG 10/29/16 16:15 10/31/16 14:01 40 ML Albuterol/ Ipratropium 3 ml 3 ml Q6H PRN INH 10/30/16 10:00 11/29/16 09:59 Dexmedetomidine HCl/Sodium Chloride (PreCEDEX INJ/ Nss 50ml) 50 ml @ 0 mls/hr Q0M PRN IV 10/30/16 09:45 11/03/16 09:29 10/31/16 16:04 9.6 MLS/HR Gabapentin (Neurontin) 600 mg Q8 NG 10/31/16 06:00 10/31/16 22:01 10/31/16 13:15 600 MG Gabapentin (Neurontin) 600 mg Q12H NG 11/01/16 09:00 11/01/16 21:01 Gabapentin (Neurontin) 600 mg Q24H NG 11/02/16 21:00 11/02/16 21:01 Clonidine HCl (Catapres Tab) 0.2 mg TID PO 10/31/16 14:00 11/30/16 13:59 10/31/16 13:14 0.2 MG Quetiapine Fumarate (seroQUEL TAB) 75 mg TID PO 10/31/16 14:00 11/30/16 13:59 10/31/16 13:14 75 MG Magnesium Oxide (Mag-Ox Tab) 400 mg DAILY PO 11/01/16 09:00 12/01/16 08:59
[2016-11-01] VITALS (13 sets, daily range): BP systolic 88–156; BP diastolic 63–108; PULSE 65–88; TEMP 36.4–36.9; O2SAT 89–98
[2016-11-01] MEDS: SODIUM CHLORIDE 0.9% IV PRN ×2 (00:37→04:54)
[2016-11-01] MEDS: DEXMEDETOMIDINE HCL IV PRN ×2 (00:37→04:54)
[2016-11-01] MEDS: LORAZEPAM 2 MG/ML 1 ML VIAL IV PRN ×6 (01:33→17:34)
[2016-11-01] MEDS: LORAZEPAM 2 MG TAB PO SCH ×2 (01:34→05:48)
[2016-11-01 06:02] LABS: HEMATOCRIT 35.7 % (42-52); MEAN CELL VOLUME 89.9 fL (80-100); MEAN CORPUSCULAR HEMOGLOBIN 30.2 pg (25-34); MEAN CORPUSCULAR HGB CONC 33.6 g/dl (32-36); MEAN PLATELET VOLUME 9.7 fL (7.4-10.4); PLATELET COUNT 303 K/uL (130-400); RED BLOOD COUNT 3.97 M/uL (4.7-6.1); WHITE BLOOD COUNT 5.78 K/uL (4.8-10.8)
[2016-11-01 06:42] LABS: BUN/CREATININE RATIO 21.4 (10-20); CALCIUM 8.7 mg/dl (8.5-10.1); CREATININE 0.51 mg/dl (0.60-1.40); MAGNESIUM 2.5 mg/dl (1.8-2.4); POTASSIUM 3.7 mmol/L (3.5-5.1)
[2016-11-01 06:45] LABS: ALB/GLOB RATIO 0.8 (0.9-2); PHOSPHORUS 3.9 mg/dl (2.5-4.9)
[2016-11-01] MEDS ORDERED: POTASSIUM CHLORIDE 20 MEQ/15 ML UDC PO STA (06:45)
[2016-11-01] MEDS: MULTIVITAMINS W/MINERALS 15ML UDP PO SCH (08:18)
[2016-11-01] MEDS: SENNA 17.6 MG/10 ML UDP PO SCH (08:18)
[2016-11-01] MEDS: TRIAMCINOLONE ACET 0.025% CR 15 GM TUBE EXT SCH ×2 (08:18→20:39)
[2016-11-01] MEDS: MAGNESIUM OXIDE 400 MG TAB PO SCH (08:19)
[2016-11-01] MEDS: CHOLECALCIFEROL 1000 INTER.UNIT TAB PO SCH (08:19)
[2016-11-01] MEDS: CLONIDINE HCL 0.1 MG TAB PO SCH ×4 (08:20→20:30)
[2016-11-01] MEDS: POLYETHYLENE (MIRALAX) 17 GM PACK PO SCH (08:21)
[2016-11-01] MEDS: PROPRANOLOL HCL 10 MG TAB PO SCH ×3 (08:21→20:29)
[2016-11-01] MEDS: QUETIAPINE FUMARATE 25 MG TAB PO SCH ×3 (08:21→20:30)
[2016-11-01] MEDS: ENOXAPARIN 40 MG/0.4 ML SYR SQ SCH (08:22)
[2016-11-01] MEDS: DOCUSATE SODIUM 100 MG/10 ML UDC PO SCH ×2 (08:22→20:30)
[2016-11-01] MEDS: THIAMINE HCL 100 MG TAB PO SCH (08:23)
[2016-11-01] MEDS ORDERED: THIAMINE HCL INJ 500 MG in SODIUM CHLORIDE 0.9% 100ML IV ONE (08:45)
[2016-11-01] MEDS ORDERED: GABAPENTIN 600MG Q12H DOSE NG SCH ×2 (09:00)
[2016-11-01] MEDS ORDERED: CLONIDINE HCL 0.1 MG TAB PO STA (09:36)
[2016-11-01] MEDS ORDERED: POTASSIUM CHLORIDE 20 MEQ/15 ML UDC NG ONE (09:41)
[2016-11-01] MEDS ORDERED: DIAZEPAM 5MG TAB PO ONE (09:45)
[2016-11-01] MEDS: DIAZEPAM 5MG TAB PO SCH ×4 (09:52→21:30)
--- NOTE | 2016-11-01 11:22 | Critical Care Progress Note ---
Critical Care Progress Note Date of Service November 01, 2016. ICU Day ICU Day Number: [address] Patel Subjective Unable to provide interval history Remains confused Nursing notes patient does get agitated overnight; Precedex weaned to as low as 0.8 mcg/kg/min, but had to go back up 1.0 mcg/kg/day Objective General Appearance: calm, comfortable Head: normocephalic, atraumatic Neck: trachea midline, no stridor, no JVD Respiratory: clear to auscultation, no added sounds or wheezing Cardiovascular: normal S1S2, no added sounds or murmurs Abdomen: non tender, normal bowel sounds, no rebound Upper Extremities: other (multiple ecchymoses of varying age) Lower Extremities: no edema, no deformity, other (multiple ecchymoses of varying age), no calf tenderness Neuro: Moves all 4 extremities when lightening sedation, Alert to person only, CAM ICU positive, cannot purposefully follow commands Current SOFA Score SOFA Score Response (Comments) Value PaO2/FiO2 (mmHg) < 200 3 Platelets (x10) > 150 0 Bilirubin (mg/dL) < 1.2 0 Boissevain Coma Score 13 - 14 1 Level of Hypotension No Hypotension 0 Creatinine (mg/dL) < 1.2 0 Total 4 Previous SOFA Scores 4 on 10/31/2016 Assessment & Plan (1) Wernicke-Korsakoff syndrome (2) Alcohol withdrawal (3) Malnutrition related to chronic disease (4) History of traumatic brain injury (5) Multiple contusions (6) Tobacco abuse (7) Alcohol abuse (8) Thrombocytopenia NEUROLOGICAL - GCS: 13 Eyes: 4; Verbal: 3; Motor 6 - Sedation: Dexmedetomidine, currently weaning; back up to 1.0 mcg/kg/hr Acute Alcohol Withdrawal - Discontinue scheduled Ativan Start Diazepam 30 mg q 4 hours - Gabapentin 600 mg TID - Continue PRN Ativan per AWSS - Clonidine increased to 0.4 mg q4h - Continue Seroquel 75 mg TID Wernicke's Korsakoff's Syndrome - 2/2 EtOH abuse and nutrient deficiency - Escalate Thiamine repletion Start on 500 TID x 2 days; then 250 daily x 5 days - Will place psych consult for protracted agitated delirium - Needs assessment for inpatient rehabilitation when medically stable CARDIOVASCULAR - BP: 120-150 systolic, MAP 100s - HR 60-70, NSR - Vasopressor support: None Hypertension Clonidine increased to 0.2 q4h Continue Propranolol 10 mg TID Prolonged QTc - QTc 501 today; will not escalate Seroquel further at this time - Repeat EKG in AM RESPIRATORY - RR: 16-18 SpO2: 96% on 2 L NC Day 3 s/p extubation and doing well - Albuterol nebulizers scaled back to PRN only GASTROINTESTINAL - Diet: Tube feeds, Peptamen, currently at goal Did not pass speech and swallow assessment yesterday; remains NPO - GI Prophylaxis: Protonix 40 mg IV daily - Bowel regimen: Colace, Senna, Dulcolax Chronic Malnutrition - 2/2 chronic alcohol abuse - Escalate thiamine as above - Continue Folate 1 mg qAM - Continue Multivitamin daily RENAL//ENDOCRINE - Fluid Balance Cumulative + 3208 ml - Cr stable at 0.51 - Electrolytes: - K 3.4 this morning; 40 mEq ordered this morning; has borderline low K daily ; will do scheduled KCl - BS-110, stable; no indications for insulin HEMATOLOGY / INFECTIOUS DISEASES - Tmax: AFebrile WBC: 5 No evidence of active infection at this time - Hb/Hct stable at 12/35 Thrombocytopenia - Resolved - DVT Prophylaxis: Lovenox 40 mg qAM LINES/IV ACCESS - Left arm triple lumen PICC line CODE STATUS - Full Code DISPOSITION - OT/PT: Ordered - ICU due to need for sedations; currently in the process of weaning Resident Physician Supervision Note: Dr. Walter was resident physician during care of patient. I separately evaluated patient and did history and exam. I discussed the case with the resident and generally agree with the findings and plan. CAM ICU positive, continued agitated delirium. We will convert from Ativan to Valium to provide extended coverage as the patient does not seem to be achieving down titration of precedex and is becoming more agitated near the end of the dosing interval. We'll also increase the clonidine dosing and hope to completely remove precedex. At this time we cannot up titrate the Seroquel at this time as the QTc is prolonged. I discussed with case management as the patient may need a court appointed power of traffic law attorney as I doubt the patient will have capacity to make long-term decisions regarding his care. I'm concerned he may have permanent neurological changes secondary to alcohol use. I have also consult to psychiatry to assist with management of prolonged agitated delirium and Wernicke-Korsakoff syndrome. We'll also load again with thiamine as I suspect there are continued ongoing nutritional deficiencies as the patient continues to require potassium supplementation and profound potassium depletion can occur with chronic alcoholism. I have personally spent 40 minutes of critical care time in the direct management of this patient. This is a life/limb threatening event. This includes time spent evaluating patient, direct bedside care, chart review, placing orders, interpretation of diagnostic studies, discussion with consultants, patient, and family members, as well as other required patient management activities. This time is exclusive of all separately billable procedures, and teaching time and separate from and in addition to any other critical care service time. Documented By: Andrea Patel DO Consults & Procedures Consultants: Mental health Procedures: Endotracheal intubation 10/20/2016 Bronchoscopy 10/22/2016 Data Medications: Current Inpatient Medications Medications (Trade) Dose Ordered Sig/Rica Route Start Time Stop Time Status Last Admin Dose Admin Acetaminophen (Tylenol Tab) 650 mg Q4H PRN PO 10/20/16 16:00 11/19/16 15:59 Ondansetron HCl (Zofran Inj) 4 mg Q6H PRN IV 10/20/16 16:00 11/19/16 15:59 10/20/16 19:31 4 MG Lorazepam (Ativan Inj) PRN Dosing -Active Protocol Q1H PRN IV 10/20/16 16:00 11/19/16 15:59 11/01/16 08:49 2 MG Multivitamins Therapeutic (Cerovite Liquid) 15 ml QAM PO 10/21/16 09:00 11/20/16 08:59 11/01/16 08:18 15 ML Folic Acid (Folvite Tab) 1 mg QAM PO 10/21/16 09:00 11/20/16 08:59 11/01/16 08:19 1 MG Propranolol HCl (Inderal Tab) 10 mg TID PO 10/22/16 14:00 11/21/16 13:59 11/01/16 08:21 10 MG Polyethylene (Miralax Powder Packet) 17 gm QAM PO 10/23/16 09:00 11/22/16 08:59 11/01/16 08:21 17 GM Docusate Sodium (coLACE SYRUP) 100 mg BID PO 10/23/16 09:00 11/22/16 08:59 11/01/16 08:22 100 MG Heparin Sodium (Porcine) (Heparin 10 Unit/ ml 5 ml Flush) 5 ml PRN PRN FLUSH 10/24/16 01:45 11/23/16 01:44 10/31/16 13:16 10 ML Enoxaparin Sodium (Lovenox Inj) 40 mg QAM SQ 10/25/16 09:00 11/24/16 08:59 11/01/16 08:22 40 MG Bisacodyl (Dulcolax Supp) 10 mg DAILY PRN [place] 10/27/16 09:00 11/26/16 08:59 10/29/16 07:16 10 MG Cholecalciferol (Vitamin D Tab) 2,000 inter.unit DAILY PO 10/27/16 14:30 11/26/16 14:29 11/01/16 08:19 2,000 INTER.UNIT Senna (Senokot Syrup) 17.6 mg QAM PO 10/29/16 09:00 11/28/16 08:59 11/01/16 08:18 17.6 MG Triamcinolone Acetonide (Kenalog 0.025% Crm) 1 appln BID EXT 10/29/16 21:00 11/28/16 20:59 11/01/16 08:18 1 APPLN Enteral Nutritional Formula (Peptamen Intense VHP) 1,000 ml UD NG 10/29/16 16:15 10/31/16 23:33 1,000 ML Albuterol/ Ipratropium 3 ml 3 ml Q6H PRN INH 10/30/16 10:00 11/29/16 09:59 Dexmedetomidine HCl/Sodium Chloride (PreCEDEX INJ/ Nss 50ml) 50 ml @ 0 mls/hr Q0M PRN IV 10/30/16 09:45 11/03/16 09:29 11/01/16 04:54 11 MLS/HR Quetiapine Fumarate (seroQUEL TAB) 75 mg TID PO 10/31/16 14:00 11/30/16 13:59 11/01/16 08:21 75 MG Magnesium Oxide (Mag-Ox Tab) 400 mg DAILY PO 11/01/16 09:00 12/01/16 08:59 11/01/16 08:19 400 MG Clonidine HCl (Catapres Tab) 0.4 mg QID PO 11/01/16 13:00 12/01/16 12:59 Diazepam (Valium Tab) 30 mg Q4H PO 11/01/16 10:00 12/01/16 09:59 11/01/16 09:52 30 MG Potassium Chloride (Lakeisha Ciel Elix) 40 meq QAM NG 11/02/16 09:00 12/02/16 08:59 Gabapentin 600 mg 600 mg TID NG 11/01/16 14:00 12/01/16 13:59 Thiamine HCl 500 mg/Sodium Chloride 105 ml @ 210 mls/hr TID IV 11/01/16 14:00 11/02/16 21:29 Thiamine HCl/ Sodium Chloride (Vitamin B-1 Inj/ Nss 100ml) 102.5 ml @ 210 mls/hr DAILY IV 11/03/16 09:00 11/07/16 09:30 I & O: 24-Hour Column 11/01/16 08:00 Intake Total 2044 ml Output Total 2150 ml Balance -106 ml Vital Signs: Date Time Temp Pulse Resp B/P Pulse Ox O2 Delivery O2 Flow Rate FiO2 11/01/16 10:00 74 20 127/83 95 11/01/16 08:00 Room Air 11/01/16 08:00 36.8 67 20 124/94 94 11/01/16 06:01 36.9 65 22 151/108 95 11/01/16 04:01 73 17 127/86 96 Room Air 11/01/16 04:00 98 Room Air 11/01/16 02:00 69 27 127/88 95 11/01/16 00:01 36.9 71 18 151/91 97 10/31/16 23:59 98 Room Air 10/31/16 22:00 74 17 149/98 93 10/31/16 21:00 67 24 149/98 96 10/31/16 20:00 77 20 116/77 98 Room Air 10/31/16 20:00 98 Room Air 10/31/16 19:00 36.5 69 20 93/71 93 Room Air 10/31/16 18:00 69 25 97 Room Air 10/31/16 17:01 69 18 96/69 96 Room Air 10/31/16 17:00 68 19 96 10/31/16 16:01 36.6 69 14 131/86 95 Room Air 10/31/16 16:00 Room Air 10/31/16 16:00 67 23 96 10/31/16 15:01 72 23 128/87 94 Room Air 10/31/16 15:00 71 16 91 10/31/16 14:01 62 19 142/94 96 10/31/16 12:01 36.6 72 18 133/86 96 Room Air 10/31/16 12:00 Room Air Laboratory Results: Last 24 Hours Test 10/31/16 12:28 10/31/16 23:12 11/01/16 05:45 Bedside Glucose 111 mg/dl 111 mg/dl White Blood Count 5.78 K/uL Red Blood Count 3.97 M/uL Hemoglobin 12.0 g/dL Hematocrit 35.7 % Mean Corpuscular Volume 89.9 fL Mean Corpuscular Hemoglobin 30.2 pg Mean Corpuscular Hemoglobin Concent 33.6 g/dl RDW Standard Deviation 40.4 fL RDW Coefficient of Variation 12.4 % Platelet Count 303 K/uL Mean Platelet Volume 9.7 fL Sodium Level 144 mmol/L Potassium Level 3.7 mmol/L Chloride Level 108 mmol/L Carbon Dioxide Level 32 mmol/L Anion Gap 4.0 mmol/L Blood Urea Nitrogen 11 mg/dl Creatinine 0.51 mg/dl Est Creatinine Clear Calc Drug Dose 188.0 ml/min Estimated GFR () 140.3 Estimated GFR (Non- 121.0 BUN/Creatinine Ratio 21.4 Random Glucose 97 mg/dl Calcium Level 8.7 mg/dl Phosphorus Level 3.9 mg/dl Magnesium Level 2.5 mg/dl Total Bilirubin 0.6 mg/dl Aspartate Amino Transf (AST/SGOT) 31 U/L Alanine Aminotransferase (ALT/SGPT) 63 U/L Alkaline Phosphatase 153 U/L Total Protein 7.3 gm/dl Albumin 3.3 gm/dl Globulin 4.0 gm/dl Albumin/Globulin Ratio 0.8 Problem Qualifiers (1) Alcohol withdrawal: Complication of substance-induced condition: with delirium Qualified Codes: F10.231 - Alcohol dependence with withdrawal delirium
[2016-11-01] MEDS: THIAMINE HCL INJ 500 MG in SODIUM CHLORIDE 0.9% 100ML IV SCH ×2 (13:33→20:39)
[2016-11-01] MEDS: GABAPENTIN 600MG NG SCH ×2 (13:46→20:39)
--- NOTE | 2016-11-01 14:35 | Psychiatric Consultation ---
Consultation Date of Consultation November 01, 2016. Identifying Data Stuart Pichadro is a 56-year-old male who was admitted to the hospital 12 days ago with alcohol withdrawal deteriorating into delirium tremens. He has had a difficult course including agitation for which we are consulted. Information is gathered from the electronic medical record and minimal amounts and the patient to continues to be delirious. Chief Complaint None stated. Consult requested for agitation in delirium History of Present Illness Stuart Pichardo is a 56-year-old gentleman with known alcoholism, who was admitted to the hospital on 10/20/16 and alcohol withdrawal. He apparently had been attempting to cut back his alcohol and was experiencing hallucinations and tremors. There were also reports that the patient had been falling frequently and chest x-ray of his ribs showed multiple fractures in various stages of healing. He very quickly deteriorated, requiring Ativan, Valium and Librium in the emergency room and was still agitated. He was then admitted to ICU where he was intubated. He received approximately 110 mg of ketamine and was later placed on propofol, Precedex and fentanyl drips. He was not able to be extirpated until several days ago and they have weaned him off all but Precedex. Per the primary team, they have been unable to wean the Precedex off altogether because he continues with agitation. In reviewing his medications, he is currently on Precedex 400 g IV, Seroquel 75 mg 3 times a day that was added in the hospital for agitation, thiamine 500 mg 3 times a day to target his Warneke Korsakoff syndrome, Neurontin 600 mg 3 times a day, clonidine 0.4 mg 4 times daily, and Klonopin was just converted to Valium 30 mg every 4 hours. He is also on Inderal 10 mg 3 times a day and Ativan every hour when necessary for signs and symptoms of withdrawal. At the time I see the patient, he is awake and attempts to be cooperative. He is oriented to person and knows that he is in the hospital but thinks he's in the [facility]. He thought it was 1960 and was aware that it was spring. His speech is garbled making it difficult to understand. He has an NG tube in place. He is not agitated at the time of my interview. He is unable to follow simple commands such as using his index finger to touch mine. He does make an attempt to use his index finger to touch his nose that lacks the coordination to complete the task. He is able to extend his arms and spread his fingers and there is no overt tremor. Past Medical/Surgical History (1) Malnutrition related to chronic disease (2) Wernicke-Korsakoff syndrome (3) Thrombocytopenia (4) History of traumatic brain injury (5) Dehydration (6) Tobacco abuse Allergies Allergies: Coded Allergies: Ibuprofen (Unverified Allergy, Unknown, FACIAL SWELLING, 10/20/16) Home Medications No Active Prescriptions or Reported Meds Family History FH: cancer MOTHER (pancreatic CA ) FH: heart disease FATHER (PA age 68 ) Alcohol Use Alcohol Use In Past 12 Months: Yes Patient is too delirious to be able to quantify his alcohol consumption over recent months Smoking Use Smoking Status: Current Some Day Smoker (duration and amount uncertain) Examination Vital Signs Vital Signs Past 12 Hours Date Time Temp Pulse Resp B/P Pulse Ox O2 Delivery O2 Flow Rate FiO2 11/01/16 14:04 36.4 75 24 91/63 95 Room Air 11/01/16 12:00 Room Air 11/01/16 12:00 36.9 69 20 109/80 95 11/01/16 10:00 74 20 127/83 95 11/01/16 08:00 Room Air 11/01/16 08:00 Room Air 11/01/16 08:00 36.8 67 20 124/94 94 11/01/16 06:01 36.9 65 22 151/108 95 11/01/16 04:01 73 17 127/86 96 Room Air 11/01/16 04:00 98 Room Air Laboratory Results Last 24 Hours Test 10/31/16 23:12 11/01/16 05:45 Bedside Glucose 111 mg/dl White Blood Count 5.78 K/uL Red Blood Count 3.97 M/uL Hemoglobin 12.0 g/dL Hematocrit 35.7 % Mean Corpuscular Volume 89.9 fL Mean Corpuscular Hemoglobin 30.2 pg Mean Corpuscular Hemoglobin Concent 33.6 g/dl RDW Standard Deviation 40.4 fL RDW Coefficient of Variation 12.4 % Platelet Count 303 K/uL Mean Platelet Volume 9.7 fL Sodium Level 144 mmol/L Potassium Level 3.7 mmol/L Chloride Level 108 mmol/L Carbon Dioxide Level 32 mmol/L Anion Gap 4.0 mmol/L Blood Urea Nitrogen 11 mg/dl Creatinine 0.51 mg/dl Est Creatinine Clear Calc Drug Dose 188.0 ml/min Estimated GFR () 140.3 Estimated GFR (Non- 121.0 BUN/Creatinine Ratio 21.4 Random Glucose 97 mg/dl Calcium Level 8.7 mg/dl Phosphorus Level 3.9 mg/dl Magnesium Level 2.5 mg/dl Total Bilirubin 0.6 mg/dl Aspartate Amino Transf (AST/SGOT) 31 U/L Alanine Aminotransferase (ALT/SGPT) 63 U/L Alkaline Phosphatase 153 U/L Total Protein 7.3 gm/dl Albumin 3.3 gm/dl Globulin 4.0 gm/dl Albumin/Globulin Ratio 0.8 Impression / Recommendations Impression 56-year-old gentleman admitted with alcohol dependence and withdrawal deteriorating to the point of DTs requiring intubation and multiple IV medications. I have reviewed the case with Dr. Brenda Valero and with Dr. Armen Walter. By necessity, the patient is on multiple medications that were added over the course of his 12 days of treatment, to medicate him symptomatically. At the time I see the patient he does seem to be minimally improved even over this morning and they have been able to further reduce his Precedex. He has been converted to Valium today for its longer half life. I spoken with Dr. Walter about concerns that a long-acting agent such as Valium could accumulate over time in the liver impaired individual. His vital signs are certainly stable given all of the alpha blockers that he is on currently. If his vital signs remained stable after weaning off Precedex, would consider tapering back on benzodiazepines, as at this point it is difficult to tell whether his delirious symptoms are ongoing alcohol withdrawal syndrome or whether they could be a symptom of benzodiazepine intoxication. A third thought is that Seroquel was added for behavioral management during times of agitation but it is preferable not to use psychotropic agents in alcohol withdrawal where possible. I have suggested that he cut back Seroquel to 25 mg 3 times a day and if tolerated, discontinue altogether in order to reduce the amount of polypharmacy. It appears as if the primary team very promptly addressed his alcohol withdrawal although the patient presented at a time when he had already started into the process, making it difficult to gain control over. He will clearly need ongoing alcohol rehabilitation after he is medically cleared, but at this point he is in no condition to have that discussion. Recommendations (1) Alcohol dependence See discussion above (2) Alcohol withdrawal See discussion above Has been reviewed with Dr. Brenda Valero
[2016-11-01] MEDS: PEPTAMEN INTENSE VHP 1000ML BAG NG SCH (17:40)
--- NOTE | 2016-11-01 18:42 | Progress Note ---
Medicine Progress Note Date & Time of Visit: November 01, 2016 at 18:33. Subjective Pt was seen and examined Lying in bed, awake, confused continue to be on precedex drip continue to feels weak denies any chest pain, palpitation and sob 1:1 sitter Objective Last 8 Hrs Date Time Temp Pulse Resp B/P Pulse Ox O2 Delivery O2 Flow Rate FiO2 11/01/16 18:00 88 20 128/75 89 Room Air 11/01/16 16:00 94 Room Air 11/01/16 16:00 36.6 77 21 88/66 94 Room Air 11/01/16 14:04 36.4 75 24 91/63 95 Room Air 11/01/16 12:00 Room Air 11/01/16 12:00 36.9 69 20 109/80 95 Physical Exam: General- lethargy, confused Head- atraumatic Eyes- PERRL ENT- Tongue midline Neck- supple, no JVD Lungs- crackles Heart- Regular, no murmur Abdomen- normal bowel sounds, soft Extremities- No edema Neuro- awake but lethargy, confused, able to squeeze finger, move all extremities Skin- warm & dry Laboratory Results: Last 24 Hours Test 10/31/16 23:12 11/01/16 05:45 11/01/16 13:25 11/01/16 17:49 Bedside Glucose 111 mg/dl 115 mg/dl 105 mg/dl White Blood Count 5.78 K/uL Red Blood Count 3.97 M/uL Hemoglobin 12.0 g/dL Hematocrit 35.7 % Mean Corpuscular Volume 89.9 fL Mean Corpuscular Hemoglobin 30.2 pg Mean Corpuscular Hemoglobin Concent 33.6 g/dl RDW Standard Deviation 40.4 fL RDW Coefficient of Variation 12.4 % Platelet Count 303 K/uL Mean Platelet Volume 9.7 fL Sodium Level 144 mmol/L Potassium Level 3.7 mmol/L Chloride Level 108 mmol/L Carbon Dioxide Level 32 mmol/L Anion Gap 4.0 mmol/L Blood Urea Nitrogen 11 mg/dl Creatinine 0.51 mg/dl Est Creatinine Clear Calc Drug Dose 188.0 ml/min Estimated GFR () 140.3 Estimated GFR (Non- 121.0 BUN/Creatinine Ratio 21.4 Random Glucose 97 mg/dl Calcium Level 8.7 mg/dl Phosphorus Level 3.9 mg/dl Magnesium Level 2.5 mg/dl Total Bilirubin 0.6 mg/dl Aspartate Amino Transf (AST/SGOT) 31 U/L Alanine Aminotransferase (ALT/SGPT) 63 U/L Alkaline Phosphatase 153 U/L Total Protein 7.3 gm/dl Albumin 3.3 gm/dl Globulin 4.0 gm/dl Albumin/Globulin Ratio 0.8 Assessment & Plan DELIRIUM TREMENS Wernicke's Korsakoff's Syndrome -In the ICU intubated on vent support -On versed and Precedex drip -On alcohol withdrawal protocol with gabapentin and Librium -economic analysis director on board for management -Continue thiamine, Folic acid and IVF -Consider alcohol rehab once discharge - weaning trial - Will give lasix 20mg x1 -Plan to titrate off sedation - Ativan 4mg IV q4hr -Gabapentin and Librium d/c - EEG done showed no seizure activity 11/01 Day 4 s/p extubation On precedex drip, critical care team is trying to wean him off it became agitated when precedex titrate off No respiratory complication overnight Continue to titrate precedex off Continue thiamine 500mg IV On gabapentin protocol Ativan changed to diazepam on seroquel, watch for QTc prolongation Case discussed with economic analysis director PT/OT consider inpatient rehab when stable PNEUMONIA Mostly aspiration pneumonia CXR showed Progression of bibasilar opacities, right greater than left Procalcitonin normal, afebrile, no leukocytosis had a bronch done on 10/22 Bronchial washings sent for culture and Gram stain, cx growth normal amish Fungal elements, and AFB stain negative will monitor closely because pt is at risk for reintubation stable TRANSAMINITIS -likely secondary to alcohol abuse -Trending down to normal -Hepatitis B and C negative -continue monitor liver enzymes - stable THROMBOCYTOPENIA -likely secondary to alcohol abuse -platelet stable -No signs of bleeding -avoid anticoagulation -Resolved ELEVATED LACTATE -Due to alcohol intoxication on admission -no signs of infection, procalcitonin negative, blood cx no growth -stable ELEVATED CK LEVEL Continue IVF resolved HYPOKALEMIA -K 3.7 -Monitor BMP -Stable TOBACCO ABUSE -Nicotine patch ordered DVT PROPHYLAXIS: SCDs, Lovenox CODE STATUS: FULL CODE Consultants: 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 UP OPERATOR Procedures: Bronchoscopy Current Inpatient Medications: Current Inpatient Medications Medications (Trade) Dose Ordered Sig/Rica Route Start Time Stop Time Status Last Admin Dose Admin Acetaminophen (Tylenol Tab) 650 mg Q4H PRN PO 10/20/16 16:00 11/19/16 15:59 Ondansetron HCl (Zofran Inj) 4 mg Q6H PRN IV 10/20/16 16:00 11/19/16 15:59 10/20/16 19:31 4 MG Lorazepam (Ativan Inj) PRN Dosing -Active Protocol Q1H PRN IV 10/20/16 16:00 11/19/16 15:59 11/01/16 17:34 2 MG Multivitamins Therapeutic (Cerovite Liquid) 15 ml QAM PO 10/21/16 09:00 11/20/16 08:59 11/01/16 08:18 15 ML Folic Acid (Folvite Tab) 1 mg QAM PO 10/21/16 09:00 11/20/16 08:59 11/01/16 08:19 1 MG Propranolol HCl (Inderal Tab) 10 mg TID PO 10/22/16 14:00 11/21/16 13:59 11/01/16 13:33 10 MG Polyethylene (Miralax Powder Packet) 17 gm QAM PO 10/23/16 09:00 11/22/16 08:59 11/01/16 08:21 17 GM Docusate Sodium (coLACE SYRUP) 100 mg BID PO 10/23/16 09:00 11/22/16 08:59 11/01/16 08:22 100 MG Heparin Sodium (Porcine) (Heparin 10 Unit/ ml 5 ml Flush) 5 ml PRN PRN FLUSH 10/24/16 01:45 11/23/16 01:44 10/31/16 13:16 10 ML Enoxaparin Sodium (Lovenox Inj) 40 mg QAM SQ 10/25/16 09:00 11/24/16 08:59 11/01/16 08:22 40 MG Bisacodyl (Dulcolax Supp) 10 mg DAILY PRN [place] 10/27/16 09:00 11/26/16 08:59 10/29/16 07:16 10 MG Cholecalciferol (Vitamin D Tab) 2,000 inter.unit DAILY PO 10/27/16 14:30 11/26/16 14:29 11/01/16 08:19 2,000 INTER.UNIT Senna (Senokot Syrup) 17.6 mg QAM PO 10/29/16 09:00 11/28/16 08:59 11/01/16 08:18 17.6 MG Triamcinolone Acetonide (Kenalog 0.025% Crm) 1 appln BID EXT 10/29/16 21:00 11/28/16 20:59 11/01/16 08:18 1 APPLN Enteral Nutritional Formula (Peptamen Intense VHP) 1,000 ml UD NG 10/29/16 16:15 11/01/16 17:40 1,000 ML Albuterol/ Ipratropium 3 ml 3 ml Q6H PRN INH 10/30/16 10:00 11/29/16 09:59 Dexmedetomidine HCl/Sodium Chloride (PreCEDEX INJ/ Nss 50ml) 50 ml @ 0 mls/hr Q0M PRN IV 10/30/16 09:45 11/03/16 09:29 11/01/16 04:54 11 MLS/HR Quetiapine Fumarate (seroQUEL TAB) 75 mg TID PO 10/31/16 14:00 11/30/16 13:59 11/01/16 13:33 75 MG Magnesium Oxide (Mag-Ox Tab) 400 mg DAILY PO 11/01/16 09:00 12/01/16 08:59 11/01/16 08:19 400 MG Clonidine HCl (Catapres Tab) 0.4 mg QID PO 11/01/16 13:00 12/01/16 12:59 11/01/16 13:33 0.4 MG Diazepam (Valium Tab) 30 mg Q4H PO 11/01/16 10:00 12/01/16 09:59 11/01/16 18:02 30 MG Potassium Chloride (Lakeisha Ciel Elix) 40 meq QAM NG 11/02/16 09:00 12/02/16 08:59 Gabapentin 600 mg 600 mg TID NG 11/01/16 14:00 12/01/16 13:59 11/01/16 13:46 600 MG Thiamine HCl 500 mg/Sodium Chloride 105 ml @ 210 mls/hr TID IV 11/01/16 14:00 11/02/16 21:29 11/01/16 13:33 210 MLS/HR Thiamine HCl/ Sodium Chloride (Vitamin B-1 Inj/ Nss 100ml) 102.5 ml @ 210 mls/hr DAILY IV 11/03/16 09:00 11/07/16 09:30
[2016-11-01] MEDS ORDERED: KETAMINE HCL INJ 50 MG/ML 10 ML VIAL IV ONE (19:00)
[2016-11-01] MEDS ORDERED: VALPROATE SOD IV ONE (19:30)
[2016-11-01] MEDS ORDERED: DEXTROSE 5% IV ONE (19:30)
[2016-11-02] VITALS (18 sets, daily range): BP systolic 112–161; BP diastolic 77–100; PULSE 58–81; TEMP 36.6–37.3; O2SAT 85–98
[2016-11-02] MEDS: LORAZEPAM 2 MG/ML 1 ML VIAL IV PRN ×3 (00:33→05:54)
[2016-11-02] MEDS: DIAZEPAM 5MG TAB PO SCH ×6 (02:17→21:40)
[2016-11-02] MEDS: VALPROIC ACID 500 MG/10 ML UDP PO SCH ×3 (04:05→19:52)
[2016-11-02 05:45] LABS: BASO ABS # 0.07 K/uL (0-0.2); COMPLETE YES; EOS % 0.9 %; HEMATOCRIT 35.9 % (42-52); IG% 0.1 %; LYMPH % 32.1 %; LYMPH ABS # 2.23 K/uL (1.2-3.4); MEAN CELL VOLUME 91.1 fL (80-100); MONO % 10.8 %; NEUT % 55.1 %; PLATELET COUNT 316 K/uL (130-400); RED BLOOD COUNT 3.94 M/uL (4.7-6.1); WHITE BLOOD COUNT 6.95 K/uL (4.8-10.8)
[2016-11-02 06:15] LABS: BUN/CREATININE RATIO 17.9 (10-20); CALCIUM 8.7 mg/dl (8.5-10.1); CREATININE 0.49 mg/dl (0.60-1.40); MAGNESIUM 2.4 mg/dl (1.8-2.4); POTASSIUM 3.5 mmol/L (3.5-5.1)
[2016-11-02 06:17] LABS: ALB/GLOB RATIO 0.8 (0.9-2)
[2016-11-02] MEDS: SODIUM CHLORIDE 0.9% IV PRN ×3 (06:19→19:49)
[2016-11-02] MEDS: DEXMEDETOMIDINE HCL IV PRN ×3 (06:19→19:49)
[2016-11-02] MEDS: MAGNESIUM OXIDE 400 MG TAB PO SCH (07:50)
[2016-11-02] MEDS: DOCUSATE SODIUM 100 MG/10 ML UDC PO SCH ×2 (07:51→19:50)
[2016-11-02] MEDS: POLYETHYLENE (MIRALAX) 17 GM PACK PO SCH (07:51)
[2016-11-02] MEDS: CLONIDINE HCL 0.1 MG TAB PO SCH ×4 (07:51→19:51)
[2016-11-02] MEDS: MULTIVITAMINS W/MINERALS 15ML UDP PO SCH (07:52)
[2016-11-02] MEDS: CHOLECALCIFEROL 1000 INTER.UNIT TAB PO SCH (07:53)
[2016-11-02] MEDS: PROPRANOLOL HCL 10 MG TAB PO SCH ×3 (07:53→19:51)
[2016-11-02] MEDS: SENNA 17.6 MG/10 ML UDP PO SCH (07:54)
[2016-11-02] MEDS: ENOXAPARIN 40 MG/0.4 ML SYR SQ SCH (07:55)
[2016-11-02] MEDS: TRIAMCINOLONE ACET 0.025% CR 15 GM TUBE EXT SCH ×2 (08:00→19:50)
[2016-11-02] MEDS: QUETIAPINE FUMARATE 25 MG TAB PO SCH ×3 (08:57→19:51)
[2016-11-02] MEDS ORDERED: CLONIDINE HCL 0.1 MG TAB PO ONE (09:00)
[2016-11-02] MEDS ORDERED: POTASSIUM CHLORIDE 20 MEQ/15 ML UDC NG SCH (09:00)
[2016-11-02] MEDS ORDERED: POTASSIUM CHLORIDE 20 MEQ/15 ML UDC NG ONE (09:00)
[2016-11-02] MEDS: GABAPENTIN 600MG NG SCH (09:04)
[2016-11-02] MEDS: THIAMINE HCL INJ 500 MG in SODIUM CHLORIDE 0.9% 100ML IV SCH ×3 (09:04→19:49)
[2016-11-02] MEDS: GABAPENTIN 250 MG/5 ML 470 ML BTL NG SCH ×3 (12:27→19:52)
[2016-11-02] MEDS: KETAMINE HCL INJ 50 MG/ML 10 ML VIAL IV PRN (18:16)
--- NOTE | 2016-11-02 18:30 | Progress Note ---
Medicine Progress Note Date & Time of Visit: November 02, 2016 at 18:22. Subjective Pt was seen and examined Sleeping, on precedex drip and 1:1 sitter Pt was very agitated this morning when precedex was off VS is stable Objective Last 8 Hrs Date Time Temp Pulse Resp B/P Pulse Ox O2 Delivery O2 Flow Rate FiO2 11/02/16 16:00 67 18 120/79 91 Nasal Cannula 2.0 11/02/16 16:00 91 Nasal Cannula 2.0 11/02/16 14:00 76 16 115/77 92 Room Air 11/02/16 12:00 Room Air 11/02/16 12:00 36.6 65 16 126/95 95 Room Air Physical Exam: General- lethargy, confused Head- atraumatic Eyes- PERRL ENT- Tongue midline Neck- supple, no JVD Lungs- crackles Heart- Regular, no murmur Abdomen- normal bowel sounds, soft Extremities- No edema Neuro- awake but lethargy, confused, able to squeeze finger, move all extremities Skin- warm & dry Laboratory Results: Last 24 Hours Test 11/01/16 23:56 11/02/16 05:27 11/02/16 06:56 11/02/16 12:03 Bedside Glucose 107 mg/dl 114 mg/dl 102 mg/dl White Blood Count 6.95 K/uL Red Blood Count 3.94 M/uL Hemoglobin 12.2 g/dL Hematocrit 35.9 % Mean Corpuscular Volume 91.1 fL Mean Corpuscular Hemoglobin 31.0 pg Mean Corpuscular Hemoglobin Concent 34.0 g/dl Platelet Count 316 K/uL Mean Platelet Volume 10.0 fL Neutrophils (%) (Auto) 55.1 % Lymphocytes (%) (Auto) 32.1 % Monocytes (%) (Auto) 10.8 % Eosinophils (%) (Auto) 0.9 % Basophils (%) (Auto) 1.0 % Neutrophils # (Auto) 3.83 K/uL Lymphocytes # (Auto) 2.23 K/uL Monocytes # (Auto) 0.75 K/uL Eosinophils # (Auto) 0.06 K/uL Basophils # (Auto) 0.07 K/uL RDW Standard Deviation 42.3 fL RDW Coefficient of Variation 12.6 % Immature Granulocyte % (Auto) 0.1 % Immature Granulocyte # (Auto) 0.01 K/uL Sodium Level 145 mmol/L Potassium Level 3.5 mmol/L Chloride Level 109 mmol/L Carbon Dioxide Level 30 mmol/L Anion Gap 6.0 mmol/L Blood Urea Nitrogen 9 mg/dl Creatinine 0.49 mg/dl Est Creatinine Clear Calc Drug Dose 195.6 ml/min Estimated GFR () 142.6 Estimated GFR (Non- 123.0 BUN/Creatinine Ratio 17.9 Random Glucose 103 mg/dl Calcium Level 8.7 mg/dl Phosphorus Level 4.0 mg/dl Magnesium Level 2.4 mg/dl Total Bilirubin 0.5 mg/dl Aspartate Amino Transf (AST/SGOT) 30 U/L Alanine Aminotransferase (ALT/SGPT) 60 U/L Alkaline Phosphatase 151 U/L Total Protein 7.2 gm/dl Albumin 3.3 gm/dl Globulin 3.9 gm/dl Albumin/Globulin Ratio 0.8 Test 11/02/16 17:59 Bedside Glucose 106 mg/dl Assessment & Plan DELIRIUM TREMENS Wernicke's Korsakoff's Syndrome -In the ICU intubated on vent support -On versed and Precedex drip -On alcohol withdrawal protocol with gabapentin and Librium -inspector weights and measures on board for management -Continue thiamine, Folic acid and IVF -Consider alcohol rehab once discharge - weaning trial - Will give lasix 20mg x1 -Plan to titrate off sedation - Ativan 4mg IV q4hr -Gabapentin and Librium d/c - EEG done showed no seizure activity 11/02 Day 5 s/p extubation On precedex drip, critical care team is trying to wean him off it became agitated when precedex titrate off No respiratory complication overnight Continue to titrate precedex off Continue thiamine 500mg IV On gabapentin protocol Ativan changed to diazepam on seroquel, watch for QTc prolongation Psych consulted recommended to decrease seroquel and watch for benzo toxicity PT/OT consider inpatient rehab when stable PNEUMONIA Mostly aspiration pneumonia CXR showed Progression of bibasilar opacities, right greater than left Procalcitonin normal, afebrile, no leukocytosis had a bronch done on 10/22 Bronchial washings sent for culture and Gram stain, cx growth normal amish Fungal elements, and AFB stain negative will monitor closely because pt is at risk for reintubation stable TRANSAMINITIS -likely secondary to alcohol abuse -Trending down to normal -Hepatitis B and C negative -continue monitor liver enzymes - stable THROMBOCYTOPENIA -likely secondary to alcohol abuse -platelet stable -No signs of bleeding -avoid anticoagulation -Resolved ELEVATED LACTATE -Due to alcohol intoxication on admission -no signs of infection, procalcitonin negative, blood cx no growth -stable ELEVATED CK LEVEL Continue IVF resolved HYPOKALEMIA -Monitor BMP -Stable TOBACCO ABUSE -Nicotine patch ordered DVT PROPHYLAXIS: SCDs, Lovenox CODE STATUS: FULL CODE 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 Procedures: Bronchoscopy Current Inpatient Medications: Current Inpatient Medications Medications (Trade) Dose Ordered Sig/Rica Route Start Time Stop Time Status Last Admin Dose Admin Acetaminophen (Tylenol Tab) 650 mg Q4H PRN PO 10/20/16 16:00 11/19/16 15:59 Ondansetron HCl (Zofran Inj) 4 mg Q6H PRN IV 10/20/16 16:00 11/19/16 15:59 10/20/16 19:31 4 MG Lorazepam (Ativan Inj) PRN Dosing -Active Protocol Q1H PRN IV 10/20/16 16:00 11/19/16 15:59 Future Hold 11/02/16 05:54 2 MG Multivitamins Therapeutic (Cerovite Liquid) 15 ml QAM PO 10/21/16 09:00 11/20/16 08:59 11/02/16 07:52 15 ML Folic Acid (Folvite Tab) 1 mg QAM PO 10/21/16 09:00 11/20/16 08:59 11/02/16 07:50 1 MG Propranolol HCl (Inderal Tab) 10 mg TID PO 10/22/16 14:00 11/21/16 13:59 11/02/16 14:14 10 MG Polyethylene (Miralax Powder Packet) 17 gm QAM PO 10/23/16 09:00 11/22/16 08:59 11/02/16 07:51 17 GM Docusate Sodium (coLACE SYRUP) 100 mg BID PO 10/23/16 09:00 11/22/16 08:59 11/02/16 07:51 100 MG Heparin Sodium (Porcine) (Heparin 10 Unit/ ml 5 ml Flush) 5 ml PRN PRN FLUSH 10/24/16 01:45 11/23/16 01:44 10/31/16 13:16 10 ML Enoxaparin Sodium (Lovenox Inj) 40 mg QAM SQ 10/25/16 09:00 11/24/16 08:59 11/02/16 07:55 40 MG Bisacodyl (Dulcolax Supp) 10 mg DAILY PRN AL 10/27/16 09:00 11/26/16 08:59 10/29/16 07:16 10 MG Cholecalciferol (Vitamin D Tab) 2,000 inter.unit DAILY PO 10/27/16 14:30 11/26/16 14:29 11/02/16 07:53 2,000 INTER.UNIT Senna (Senokot Syrup) 17.6 mg QAM PO 10/29/16 09:00 11/28/16 08:59 11/02/16 07:54 17.6 MG Triamcinolone Acetonide (Kenalog 0.025% Crm) 1 appln BID EXT 10/29/16 21:00 11/28/16 20:59 11/02/16 08:00 1 APPLN Enteral Nutritional Formula (Peptamen Intense VHP) 1,000 ml UD NG 10/29/16 16:15 11/01/16 17:40 1,000 ML Albuterol/ Ipratropium 3 ml 3 ml Q6H PRN INH 10/30/16 10:00 11/29/16 09:59 Dexmedetomidine HCl/Sodium Chloride (PreCEDEX INJ/ Nss 50ml) 50 ml @ 0 mls/hr Q0M PRN IV 10/30/16 09:45 11/03/16 09:29 11/02/16 13:10 5.6 MLS/HR Magnesium Oxide (Mag-Ox Tab) 400 mg DAILY PO 11/01/16 09:00 12/01/16 08:59 11/02/16 07:50 400 MG Diazepam (Valium Tab) 30 mg Q4H PO 11/01/16 10:00 12/01/16 09:59 11/02/16 17:47 30 MG Potassium Chloride 40 meq 40 meq QAM NG 11/02/16 09:00 12/02/16 08:59 11/02/16 07:52 40 MEQ Thiamine HCl 500 mg/Sodium Chloride 105 ml @ 210 mls/hr TID IV 11/01/16 14:00 11/02/16 21:29 11/02/16 14:15 210 MLS/HR Thiamine HCl/ Sodium Chloride (Vitamin B-1 Inj/ Nss 100ml) 102.5 ml @ 210 mls/hr DAILY IV 11/03/16 09:00 11/07/16 09:30 Valproic Acid (Depakene Syrup) 500 mg Q8H PO 11/02/16 04:00 12/02/16 03:59 11/02/16 12:25 500 MG Clonidine HCl (Catapres Tab) 0.6 mg QID PO 11/02/16 13:00 12/02/16 12:59 11/02/16 17:33 0.6 MG Quetiapine Fumarate (seroQUEL TAB) 25 mg TID PO 11/02/16 09:00 12/02/16 08:59 11/02/16 14:14 25 MG Ketamine HCl (Ketalar Steri-Vial Inj) 50 mg Q4H PRN IV 11/02/16 08:30 12/02/16 08:29 11/02/16 18:16 50 MG Gabapentin (Neurontin) 600 mg QID NG 11/02/16 13:00 12/02/16 12:59 11/02/16 17:32 600 MG
[2016-11-02] MEDS ORDERED: GABAPENTIN 600MG X1 DOSE NG SCH ×2 (21:00)
[2016-11-03] VITALS (54 sets, daily range): BP systolic 67–169; BP diastolic 43–117; PULSE 70–104; TEMP 36.5–37.3; O2SAT 73–100
[2016-11-03] MEDS: DEXMEDETOMIDINE HCL IV PRN (01:38)
[2016-11-03] MEDS: SODIUM CHLORIDE 0.9% IV PRN (01:38)
[2016-11-03] MEDS: DIAZEPAM 5MG TAB PO SCH ×6 (01:39→21:33)
[2016-11-03] MEDS: VALPROIC ACID 500 MG/10 ML UDP PO SCH ×3 (03:41→20:30)
[2016-11-03] MEDS: KETAMINE HCL INJ 50 MG/ML 10 ML VIAL IV PRN ×2 (05:46→21:15)
[2016-11-03 06:26] LABS: HEMATOCRIT 35.2 % (42-52); MEAN CELL VOLUME 90.7 fL (80-100); MEAN CORPUSCULAR HEMOGLOBIN 30.9 pg (25-34); MEAN CORPUSCULAR HGB CONC 34.1 g/dl (32-36); MEAN PLATELET VOLUME 9.8 fL (7.4-10.4); PLATELET COUNT 342 K/uL (130-400); RED BLOOD COUNT 3.88 M/uL (4.7-6.1); WHITE BLOOD COUNT 8.27 K/uL (4.8-10.8)
[2016-11-03 06:45] LABS: BUN/CREATININE RATIO 16.6 (10-20); CALCIUM 8.9 mg/dl (8.5-10.1); CREATININE 0.63 mg/dl (0.60-1.40); MAGNESIUM 2.5 mg/dl (1.8-2.4); POTASSIUM 3.8 mmol/L (3.5-5.1)
[2016-11-03 06:46] LABS: PHOSPHORUS 3.9 mg/dl (2.5-4.9)
--- NOTE | 2016-11-03 08:41 | Progress Note ---
Internal Med Progress Note Date of Service: November 03, 2016. Provider Documentation: SUBJECTIVE: The Patient was seen and examined S/P Extubation Remains confused ,agitated occasionally,tries to come out of bed No acute distress OBJECTIVE: Vital Signs-as noted below Exam: General-Confused,generally weak and lethargic Eyes-normal ENT-Normal Neck-supple Lungs-Transmitted sounds and minimal crackles at the bases Heart-Regular,no murmur appreciated Abdomen-Benign,no masses,bowel sound present Extremities-No edema Neuro-drowsy and confused Moving all limbs ,? weaker on left side Lab data as noted below. ASSESSMENT & PLAN: DELIRIUM TREMENS -secondary to Alcohol abuse -s/p Extubation -Was on versed and propofol drip -Continue thiamine with higher doses Folic acid and IVF - EEG done showed no seizure activity -Required heavy dose of Benzodiazepines -will try to wean off gradually -Getting Gabapentin and Clonidine -remains confused -will initiate PT/OT starting at bedside and progress as tolerated 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 Appreciate Psychiatry input Taper down Benzodiazepine Seroquel started PNEUMONIA Likely secondary to Aspiration CXR showed Progression of bibasilar opacities, right greater than left Received Unasyn and Zithromax Has had a bronch done 10/22 Bronchial washings sent for culture and Gram stain, cx growth normal amish Fungal elements, and AFB stain negative D/C Azithromycin on 27 of October Finished the courses of antibiotics Elevated Liver Enzymes -likely secondary to alcohol abuse -Hepatitis B and C negative -continue monitor liver enzymes-improving THROMBOCYTOPENIA -secondary to Alcohol abuse and Cirrhosis -platelet improved from 35 to 50-->73 today -no pharmacologic anticoagulation initially -normalized ELEVATED CK LEVEL Likely from recurrent trauma Continue IVF Electrolytes Imbalance Supplement and Monitor TOBACCO ABUSE -Nicotine patch ordered DVT PROPHYLAXIS: SCDs RE: thrombocytopenia Will consider Heparin irf platelet goes >100 Started on Lovenox CODE STATUS: FULL CODE 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 Procedures: Bronchoscopy Family 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 by Process Development Manager Vital Signs: Date Time Temp Pulse Resp B/P Pulse Ox O2 Delivery O2 Flow Rate FiO2 11/03/16 06:00 77 19 97 11/03/16 05:00 37.3 74 19 124/83 94 11/03/16 04:05 71 17 135/88 96 11/03/16 04:01 72 17 96 11/03/16 04:00 98 Nasal Cannula 2.0 5/26/17 02:01 70 17 169/99 98 11/03/16 00:01 36.8 77 18 113/69 95 11/02/16 23:59 98 Nasal Cannula 2.0 11/02/16 23:01 73 19 124/80 94 11/02/16 22:01 68 18 148/92 92 11/02/16 21:01 68 19 161/89 93 11/02/16 20:02 77 24 139/84 95 11/02/16 20:00 98 Nasal Cannula 2.0 11/02/16 19:01 37.3 63 20 156/91 98 Nasal Cannula 2.0 11/02/16 18:00 69 20 123/83 Nasal Cannula 2.0 11/02/16 16:00 67 18 120/79 91 Nasal Cannula 2.0 11/02/16 16:00 91 Nasal Cannula 2.0 11/02/16 14:00 76 16 115/77 92 Room Air 11/02/16 12:00 Room Air 11/02/16 12:00 36.6 65 16 126/95 95 Room Air 11/02/16 10:00 68 16 129/94 94 Room Air Lab Results: Results Past 24 Hours Test 11/02/16 12:03 11/02/16 17:59 11/02/16 23:46 11/03/16 06:19 Range/Units Bedside Glucose 102 106 102 70-99 mg/dl White Blood Count 8.27 4.8-10.8 K/uL Red Blood Count 3.88 4.7-6.1 M/uL Hemoglobin 12.0 14.0-18.0 g/dL Hematocrit 35.2 42-52 % Mean Corpuscular Volume 90.7 80-100 fL Mean Corpuscular Hemoglobin 30.9 25-34 pg Mean Corpuscular Hemoglobin Concent 34.1 32-36 g/dl RDW Standard Deviation 41.4 36.4-46.3 fL RDW Coefficient of Variation 12.6 11.5-14.5 % Platelet Count 342 130-400 K/uL Mean Platelet Volume 9.8 7.4-10.4 fL Sodium Level 144 136-145 mmol/L Potassium Level 3.8 3.5-5.1 mmol/L Chloride Level 108 98-107 mmol/L Carbon Dioxide Level 31 21-32 mmol/L Anion Gap 5.0 3-11 mmol/L Blood Urea Nitrogen 10 7-18 mg/dl Creatinine 0.63 0.60-1.40 mg/dl Est Creatinine Clear Calc Drug Dose 152.2 ml/min Estimated GFR () 128.6 Estimated GFR (Non- 110.9 BUN/Creatinine Ratio 16.6 10-20 Random Glucose 92 70-99 mg/dl Calcium Level 8.9 8.5-10.1 mg/dl Phosphorus Level 3.9 2.5-4.9 mg/dl Magnesium Level 2.5 1.8-2.4 mg/dl
--- NOTE | 2016-11-03 09:04 | DIAGNOSTIC IMAGING REPORT ---
CHEST ONE VIEW PORTABLE CLINICAL HISTORY: pneumonia dyspnea COMPARISON STUDY: 10/28/2016 FINDINGS: Interval extubation. Improved aeration right base. Stable infiltrative/effusion-type change left base. Moderate stable cardiomegaly. IMPRESSION: 1. Interval extubation. 2. Improving basilar infiltrates with moderate residual and/or effusion-type change left base. Electronically signed by: Keo Muir M.D. 11/03/2016 9:02 AM Dictated Date/Time: 11/03/2016 9:01 AM
[2016-11-03] MEDS: ENOXAPARIN 40 MG/0.4 ML SYR SQ SCH (09:38)
[2016-11-03] MEDS: THIAMINE HCL INJ 250 MG in SODIUM CHLORIDE 0.9% 100ML 100 ML IV SCH (09:49)
[2016-11-03 09:59] LABS: ISTAT ALLEN TEST Pass; ISTAT ARTERIAL BLOOD GAS HCO3 27 meq/L (19-24); ISTAT ARTERIAL BLOOD GAS PCO2 36 mmHg (35-46); ISTAT ARTERIAL BLOOD GAS PO2 34 mmHg (80-95); ISTAT ARTERIAL BLOOD GAS pH 7.49 (7.35-7.45); ISTAT CARBON DIOXIDE 28 mEq/l (24-31); ISTAT DELIVERY SYSTEM NonRb Mask; ISTAT FIO2 100 %; ISTAT SITE R Radial
[2016-11-03 09:59] LABS: ISTAT ALLEN TEST Pass; ISTAT ARTERIAL BLOOD GAS HCO3 26 meq/L (19-24); ISTAT ARTERIAL BLOOD GAS PCO2 39 mmHg (35-46); ISTAT ARTERIAL BLOOD GAS PO2 45 mmHg (80-95); ISTAT ARTERIAL BLOOD GAS pH 7.43 (7.35-7.45); ISTAT CARBON DIOXIDE 27 mEq/l (24-31); ISTAT DELIVERY SYSTEM NonRb Mask; ISTAT FIO2 100 %; ISTAT SITE R Radial
[2016-11-03] MEDS ORDERED: POTASSIUM CHLORIDE 20 MEQ/15 ML UDC PO ONE (10:00)
[2016-11-03] MEDS ORDERED: GLYCOPYRROLATE INJ 0.2 MG/ML VIAL IV ONE (10:00)
[2016-11-03] MEDS ORDERED: OPTIRAY 320 IV PRN (10:00)
--- NOTE | 2016-11-03 10:19 | DIAGNOSTIC IMAGING REPORT ---
CHEST ONE VIEW PORTABLE HISTORY: acute hypoxia, confirm ng tube placement COMPARISON: Chest 10/28/1616. FINDINGS: A nasogastric tube terminates below the diaphragm. The tip is not included on this study. The patient is rotated. No definite pneumothorax. Small bilateral pleural effusions and a left basilar airspace opacity persists. The heart is stable in size. Old, healed left upper rib fractures. There are healing right lower lateral rib fractures. IMPRESSION: 1. Nasogastric tube terminates below the diaphragm. The tip is not included on this study. 2. Small bilateral pleural effusions and left basilar airspace opacity persists. 3. Healing right lower rib fractures. Electronically signed by: Dalton Adler M.D. 11/03/2016 10:18 AM Dictated Date/Time: 11/03/2016 10:16 AM
--- NOTE | 2016-11-03 10:22 | DIAGNOSTIC IMAGING REPORT ---
KUB CLINICAL HISTORY: NG tube placement tube position COMPARISON STUDY: 10/29/2016 FINDINGS: Nasogastric tube position in the proximal gastric body. Persistent increase in density left lung base. IMPRESSION: Nasogastric tube within the proximal gastric body Electronically signed by: Keo Muir M.D. 11/03/2016 10:21 AM Dictated Date/Time: 11/03/2016 10:20 AM
--- NOTE | 2016-11-03 11:20 | DIAGNOSTIC IMAGING REPORT ---
CHEST CTA for PULMONARY ARTERIES CT DOSE: 589.99 mGycm HISTORY: Chest pain dyspnea TECHNIQUE: Multiaxial CT images of the chest were performed following the intravenous administration of contrast to evaluate the pulmonary arteries. Maximal intensity projection images were also obtained. COMPARISON STUDY: 10/20/2016 FINDINGS: No evidence for pulmonary emboli. No evidence of pneumothorax. Slight increase in volume of a right pleural effusion. Similar right lower lobe atelectatic and associated volume loss change. Progressive consolidative changes of the left lower lobe. This appears to be secondary to progressive mucous plugging of the left lower lobe pulmonary bronchial system. Nasogastric tube is located within the stomach. IMPRESSION: 1. Study is negative for pulmonary embolus. 2. Progressive consolidative change left lower lobe secondary to mucous plugging of the left lower lobe bronchial system. 3. Slightly progressive right pleural effusion with right basilar infiltrative change. 4. Bilateral healing rib fractures unchanged from the prior study. Electronically signed by: Keo Muir M.D. 11/03/2016 11:18 AM Dictated Date/Time: 11/03/2016 11:08 AM
[2016-11-03] MEDS ORDERED: ALBUTEROL 0.083% NEBU SOLN 3 ML VIAL INH STA (11:26)
[2016-11-03] MEDS ORDERED: NURSING VERBAL MED ORDER ONE (11:30)
[2016-11-03] MEDS: POTASSIUM CHLORIDE 20 MEQ/15 ML UDC NG SCH (11:45)
[2016-11-03] MEDS ORDERED: ACETAMINOPHEN SOLN 650MG/20.3 ML UDC PO ONE (11:45)
[2016-11-03] MEDS ORDERED: GLYCOPYRROLATE INJ 0.2 MG/ML VIAL IV PRN (11:45)
[2016-11-03] MEDS ORDERED: ACETAMINOPHEN SOLN 325 MG/10.15 ML UDC PO ONE (11:45)
[2016-11-03] MEDS ORDERED: ACETYLCYSTEINE 20% INHAL SOLN ***DISPENSED BY RESP. INH ONE (11:45)
[2016-11-03] MEDS: GABAPENTIN 250 MG/5 ML 470 ML BTL NG SCH ×4 (11:50→20:35)
[2016-11-03] MEDS: CLONIDINE HCL 0.1 MG TAB PO SCH ×4 (11:50→21:33)
[2016-11-03] MEDS: MULTIVITAMINS W/MINERALS 15ML UDP PO SCH (11:51)
[2016-11-03] MEDS: DOCUSATE SODIUM 100 MG/10 ML UDC PO SCH ×2 (11:57→20:32)
[2016-11-03] MEDS: PROPRANOLOL HCL 10 MG TAB PO SCH ×3 (11:58→21:34)
[2016-11-03] MEDS: CHOLECALCIFEROL 1000 INTER.UNIT TAB PO SCH (11:58)
[2016-11-03] MEDS: POLYETHYLENE (MIRALAX) 17 GM PACK PO SCH (11:59)
[2016-11-03] MEDS: TRIAMCINOLONE ACET 0.025% CR 15 GM TUBE EXT SCH ×2 (11:59→20:31)
[2016-11-03] MEDS: SENNA 17.6 MG/10 ML UDP PO SCH (11:59)
--- NOTE | 2016-11-03 14:58 | Critical Care Progress Note ---
Critical Care Progress Note Date of Service November 03, 2016. ICU Day ICU Day Number: [address] Patel Subjective Patient had episode of acute hypoxia this morning with expectoration of large amount of yellow sputum Respiratory distress notable and saturations transiently dropped into the 70s. Remains confused; required 2 breakthrough doses of ketamine overnight Patient generally non-cooperative with nurses Objective General Appearance: calm, comfortable Head: normocephalic, atraumatic Neck: trachea midline, no stridor, no JVD Respiratory: clear to auscultation, no added sounds or wheezing Cardiovascular: normal S1S2, no added sounds or murmurs Abdomen: non tender, normal bowel sounds, no rebound Upper Extremities: other (multiple ecchymoses of varying age) Lower Extremities: no edema, no deformity, other (multiple ecchymoses of varying age), no calf tenderness Neuro: Moves all 4 extremities when lightening sedation, Alert to person only, CAM ICU positive, cannot purposefully follow commands Current SOFA Score SOFA Score Response (Comments) Value PaO2/FiO2 (mmHg) < 200 3 Platelets (x10) > 150 0 Bilirubin (mg/dL) < 1.2 0 [place] Coma Score 13 - 14 1 Level of Hypotension No Hypotension 0 Creatinine (mg/dL) < 1.2 0 Total 4 Previous SOFA Scores 4 on 11/02/2016 Assessment & Plan (1) Wernicke-Korsakoff syndrome (2) Alcohol withdrawal (3) Malnutrition related to chronic disease (4) History of traumatic brain injury (5) Multiple contusions (6) Tobacco abuse (7) Alcohol abuse (8) Thrombocytopenia NEUROLOGICAL - GCS: 13 Eyes: 4; Verbal: 3; Motor 6 - Sedation: Precedex has been stopped at this point; will stay at bedside in case patient has rebound agitation Acute Alcohol Withdrawal - Continue Gabapentin QID - Continue Valproate 500 TID - Continue 30 mg q 4 hours - Breakthrough Ketamine 50 mg q 4 hours for severe agitation; require 2 doses over 24 hours - Discontinue Seroquel due to concerns for potentiating agitation Wernicke's Korsakoff's Syndrome - 2/2 EtOH abuse and nutrient deficiency - Escalate Thiamine repletion Currently on Thiamin 250 mg x 5 days - Psych consulted for protracted agitated delirium; recommendations appreciated - Needs assessment for inpatient rehabilitation when medically stable CARDIOVASCULAR - BP: 120-150 systolic, MAP 100s - HR 60-70, NSR - Vasopressor support: None Hypertension - Following medication administration, patient does have episodes of BP being 80s/50s Decrease Clonidine to 0.4 mg QID Continue Propranolol 10 mg TID Prolonged QTc - improved to 359 today - Discontinuing Seroquel RESPIRATORY - RR: 16-18 SpO2: 96% on 2 L NC Day 3 s/p extubation and doing well - Albuterol nebulizers scaled back to PRN only Acute Respiratory Distress - ABG: pH 7.43; pCO2 39; pO2 45; Bicarb 26 --> Acute Hypoxic Respiratory Failure - CXR suggestive of left basilar opacity, concerning for possible aspiration of tube feeds - CT PE negative - Possible secretory effect of sedatives Will administer Glycopyrrolate to counter secretion - Assist with sputum expectoration Chest vest, rotating bed vibration mode Mucomyst/albuterol x 1 treatment Induced sputum for culture GASTROINTESTINAL - Diet: Hold Tube feeds NG tube placement re-confirmed today in light of concern for aspiration - GI Prophylaxis: Resume pantoprazole until tube feeds are re-started - Bowel regimen: Colace, Senna, Dulcolax Chronic Malnutrition - 2/2 chronic alcohol abuse, Continue Thiamine, Continue Folate 1 mg qAM, Continue Multivitamin daily RENAL//ENDOCRINE - Fluid Balance Cumulative + 6.7 L - Cr stable at 0.63 - Electrolytes: - K 3.8 this morning; will increased KCl dose to 50 mEq daily - BS-110, stable; no indications for insulin HEMATOLOGY / INFECTIOUS DISEASES - Tmax: Afebrile WBC: 8 Possible developing pneumonia secondary to aspiration Monitor clinically for pneumonia vs pneumonitis - Hb/Hct stable at 12/35, stable Thrombocytopenia - Resolved - DVT Prophylaxis: Lovenox 40 mg qAM LINES/IV ACCESS - 18 G left forearm - 20 G right forearm CODE STATUS - Full Code DISPOSITION - OT/PT: Ordered - ICU due extreme intermittent agitation Resident Physician Supervision Note: Dr. Walter was resident physician during care of patient. I separately evaluated patient and did history and exam. I discussed the case with the resident and generally agree with the findings and plan. Patient has been very slowly improving and his mental status and mildly decrease in benzodiazepine requirements. Today there was a more pronounced improvement in his mental status in the morning, however he is still unable to recognize his sister who has been visiting him daily. We have been able to decrease the Seroquel off, was able to stop the Precedex today, and decreased the clonidine dosage. I suspect the Depakote is starting to have a more pronounced effect. Patient still requires ICU level care secondary to acute alcohol withdrawal, combativeness, and need for chemical restraint. Today there was an episode of hypoxia, the patient was able to cough significant mucus from his lungs. We obtained a CT scan to exclude PE, there is still significant debris in the larger airways of the left long, however I feel at this time having the patient undergo sedation for therapeutic bronchoscopy would set us back further in a mental status standpoint especially given that he has a productive cough at this time. I have personally spent 35 minutes of critical care time in the direct management of this patient. This is a life/limb threatening event. This includes time spent evaluating patient, direct bedside care, chart review, placing orders, interpretation of diagnostic studies, discussion with consultants, patient, and family members, as well as other required patient management activities. This time is exclusive of all separately billable procedures, and teaching time and separate from and in addition to any other critical care service time. Documented By: Andrea Patel DO Consults & Procedures Consultants: Mental health Procedures: Endotracheal intubation 10/20/2016 Bronchoscopy 10/22/2016 CT PE negative on 11/03/2016 Data Medications: Current Inpatient Medications Medications (Trade) Dose Ordered Sig/Rica Route Start Time Stop Time Status Last Admin Dose Admin Acetaminophen (Tylenol Tab) 650 mg Q4H PRN PO 10/20/16 16:00 11/19/16 15:59 Ondansetron HCl (Zofran Inj) 4 mg Q6H PRN IV 10/20/16 16:00 11/19/16 15:59 10/20/16 19:31 4 MG Lorazepam (Ativan Inj) PRN Dosing -Active Protocol Q1H PRN IV 10/20/16 16:00 11/19/16 15:59 Future Hold 11/02/16 05:54 2 MG Multivitamins Therapeutic (Cerovite Liquid) 15 ml QAM PO 10/21/16 09:00 11/20/16 08:59 11/03/16 11:51 15 ML Folic Acid (Folvite Tab) 1 mg QAM PO 10/21/16 09:00 11/20/16 08:59 11/03/16 11:59 1 MG Propranolol HCl (Inderal Tab) 10 mg TID PO 10/22/16 14:00 11/21/16 13:59 11/03/16 11:58 10 MG Polyethylene (Miralax Powder Packet) 17 gm QAM PO 10/23/16 09:00 11/22/16 08:59 11/02/16 07:51 17 GM Docusate Sodium (coLACE SYRUP) 100 mg BID PO 10/23/16 09:00 11/22/16 08:59 11/03/16 11:57 100 MG Heparin Sodium (Porcine) (Heparin 10 Unit/ ml 5 ml Flush) 5 ml PRN PRN FLUSH 10/24/16 01:45 11/23/16 01:44 10/31/16 13:16 10 ML Enoxaparin Sodium (Lovenox Inj) 40 mg QAM SQ 10/25/16 09:00 11/24/16 08:59 11/03/16 09:38 40 MG Bisacodyl (Dulcolax Supp) 10 mg DAILY PRN KS 10/27/16 09:00 11/26/16 08:59 10/29/16 07:16 10 MG Cholecalciferol (Vitamin D Tab) 2,000 inter.unit DAILY PO 10/27/16 14:30 11/26/16 14:29 11/03/16 11:58 2,000 INTER.UNIT Senna (Senokot Syrup) 17.6 mg QAM PO 10/29/16 09:00 11/28/16 08:59 11/02/16 07:54 17.6 MG Triamcinolone Acetonide (Kenalog 0.025% Crm) 1 appln BID EXT 10/29/16 21:00 11/28/16 20:59 11/03/16 11:59 1 APPLN Enteral Nutritional Formula (Peptamen Intense VHP) 1,000 ml UD NG 10/29/16 16:15 11/01/16 17:40 1,000 ML Albuterol/ Ipratropium (Duoneb) 3 ml Q6H PRN INH 10/30/16 10:00 11/29/16 09:59 Magnesium Oxide (Mag-Ox Tab) 400 mg DAILY PO 11/01/16 09:00 12/01/16 08:59 Future Hold 11/02/16 07:50 400 MG Diazepam 30 mg 30 mg Q4H PO 11/01/16 10:00 12/01/16 09:59 11/03/16 11:43 30 MG Thiamine HCl/ Sodium Chloride (Vitamin B-1 Inj/ Nss 100ml) 102.5 ml @ 210 mls/hr DAILY IV 11/03/16 09:00 11/07/16 09:30 11/03/16 09:49 210 MLS/HR Valproic Acid (Depakene Syrup) 500 mg Q8H PO 11/02/16 04:00 12/02/16 03:59 11/03/16 11:51 500 MG Ketamine HCl (Ketalar Steri-Vial Inj) 50 mg Q4H PRN IV 11/02/16 08:30 12/02/16 08:29 11/03/16 05:46 50 MG Gabapentin (Neurontin) 600 mg QID NG 11/02/16 13:00 12/02/16 12:59 11/03/16 11:50 600 MG Potassium Chloride (Lakeisha Ciel Elix) 60 meq QAM NG 11/03/16 09:49 12/03/16 09:48 11/03/16 11:45 60 MEQ Ioversol (Optiray 320) 125 ml UD PRN IV 11/03/16 10:00 11/07/16 09:59 Glycopyrrolate (Robinul Inj) 0.1 mg Q4H PRN IV 11/03/16 11:45 12/03/16 11:44 Clonidine HCl (Catapres Tab) 0.4 mg QID PO 11/03/16 17:00 12/03/16 16:59 I & O: 24-Hour Column 11/03/16 08:00 Intake Total 2477 ml Output Total 550 ml Balance 1927 ml Vital Signs: Date Time Temp Pulse Resp B/P Pulse Ox O2 Delivery O2 Flow Rate FiO2 11/03/16 14:00 86 23 80/55 95 4.0 11/03/16 13:50 84 25 96/58 98 4.0 11/03/16 13:47 95 25 67/43 11/03/16 13:30 85 23 89/65 96 11/03/16 12:01 Nasal Cannula 4.0 11/03/16 11:40 82 18 98 Nasal Cannula 4.0 11/03/16 11:15 36.5 80 14 113/79 93 Nasal Cannula 4.0 11/03/16 10:00 86 25 113/77 90 Nasal Cannula 6.0 11/03/16 09:05 88 Non-Rebreather 15.0 11/03/16 09:00 81 25 128/85 73 11/03/16 08:00 76 22 143/86 91 3.0 11/03/16 08:00 Nasal Cannula 3.0 11/03/16 06:00 77 19 97 11/03/16 05:00 37.3 74 19 124/83 94 11/03/16 04:05 71 17 135/88 96 11/03/16 04:01 72 17 96 11/03/16 04:00 98 Nasal Cannula 2.0 11/03/16 02:01 70 17 169/99 98 11/03/16 00:01 36.8 77 18 113/69 95 11/02/16 23:59 98 Nasal Cannula 2.0 11/02/16 23:01 73 19 124/80 94 11/02/16 22:01 68 18 148/92 92 11/02/16 21:01 68 19 161/89 93 11/02/16 20:02 77 24 139/84 95 11/02/16 20:00 98 Nasal Cannula 2.0 11/02/16 19:01 37.3 63 20 156/91 98 Nasal Cannula 2.0 11/02/16 18:00 69 20 123/83 Nasal Cannula 2.0 11/02/16 16:00 67 18 120/79 91 Nasal Cannula 2.0 11/02/16 16:00 91 Nasal Cannula 2.0 Laboratory Results: Last 24 Hours Test 11/02/16 17:59 11/02/16 23:46 11/03/16 06:19 11/03/16 09:36 Bedside Glucose 106 mg/dl 102 mg/dl White Blood Count 8.27 K/uL Red Blood Count 3.88 M/uL Hemoglobin 12.0 g/dL Hematocrit 35.2 % Mean Corpuscular Volume 90.7 fL Mean Corpuscular Hemoglobin 30.9 pg Mean Corpuscular Hemoglobin Concent 34.1 g/dl RDW Standard Deviation 41.4 fL RDW Coefficient of Variation 12.6 % Platelet Count 342 K/uL Mean Platelet Volume 9.8 fL Sodium Level 144 mmol/L Potassium Level 3.8 mmol/L Chloride Level 108 mmol/L Carbon Dioxide Level 31 mmol/L Anion Gap 5.0 mmol/L Blood Urea Nitrogen 10 mg/dl Creatinine 0.63 mg/dl Est Creatinine Clear Calc Drug Dose 152.2 ml/min Estimated GFR () 128.6 Estimated GFR (Non- 110.9 BUN/Creatinine Ratio 16.6 Random Glucose 92 mg/dl Calcium Level 8.9 mg/dl Phosphorus Level 3.9 mg/dl Magnesium Level 2.5 mg/dl Blood Gas Sample Site R Radial Bedside Blood Gas pH (LAB) 7.49 Bedside Blood Gas pCO2 (LAB) 36 mmHg Bedside Blood Gas pO2 (LAB) 34 mmHg Bedside Blood Gas HCO3 (LAB) 27 meq/L Bedside Blood Gas Total CO2 28 mEq/l Bedside Blood Gas Base Excess (LAB) 4.0 meq/L Bedside Blood Gas O2 Saturation 71.0 % Kiran Test Pass Oxygen Delivery Device NonRb Mask Bedside FiO2 100 % Test 11/03/16 09:44 11/03/16 11:39 Blood Gas Sample Site R Radial Bedside Blood Gas pH (LAB) 7.43 Bedside Blood Gas pCO2 (LAB) 39 mmHg Bedside Blood Gas pO2 (LAB) 45 mmHg Bedside Blood Gas HCO3 (LAB) 26 meq/L Bedside Blood Gas Total CO2 27 mEq/l Bedside Blood Gas Base Excess (LAB) 2.0 meq/L Bedside Blood Gas O2 Saturation 81.0 % Kiran Test Pass Oxygen Delivery Device NonRb Mask Bedside FiO2 100 % Bedside Glucose 74 mg/dl Problem Qualifiers (1) Alcohol withdrawal: Complication of substance-induced condition: with delirium Qualified Codes: F10.231 - Alcohol dependence with withdrawal delirium
[2016-11-03] MEDS ORDERED: PIPERACILL/TAZOBAC CONSULT ACTIVE PRN (16:00)
[2016-11-03] MEDS ORDERED: PIPERACILL/TAZOBAC IV 4.5 GM in DEXTROSE 5% 100ML 100 ML IV ONE (16:15)
[2016-11-03] MEDS: PEPTAMEN INTENSE VHP 1000ML BAG NG SCH (20:35)
[2016-11-03] MEDS ORDERED: PIPERACILL/TAZOBAC IV 4.5 GM in DEXTROSE 5% 100ML IV SCH (22:00)
[2016-11-04] VITALS (30 sets, daily range): BP systolic 81–137; BP diastolic 43–88; PULSE 72–104; TEMP 36.8–37; O2SAT 92–100
[2016-11-04] MEDS: DIAZEPAM 5MG TAB PO SCH ×6 (02:00→20:57)
[2016-11-04 05:52] LABS: BASO % 0.2 %; BASO ABS # 0.03 K/uL (0-0.2); COMPLETE YES; EOS % 0.1 %; HEMATOCRIT 33.4 % (42-52); IG% 0.2 %; LYMPH % 9.1 %; LYMPH ABS # 1.25 K/uL (1.2-3.4); MEAN CELL VOLUME 92.3 fL (80-100); MEAN CORPUSCULAR HEMOGLOBIN 30.9 pg (25-34); MEAN CORPUSCULAR HGB CONC 33.5 g/dl (32-36); MEAN PLATELET VOLUME 9.9 fL (7.4-10.4); MONO % 6.6 %; NEUT % 83.8 %; PLATELET COUNT 344 K/uL (130-400); RED BLOOD COUNT 3.62 M/uL (4.7-6.1); WHITE BLOOD COUNT 13.69 K/uL (4.8-10.8)
[2016-11-04 06:24] LABS: BUN/CREATININE RATIO 25.7 (10-20); CALCIUM 8.9 mg/dl (8.5-10.1); CREATININE 0.67 mg/dl (0.60-1.40); MAGNESIUM 2.6 mg/dl (1.8-2.4); POTASSIUM 3.8 mmol/L (3.5-5.1)
[2016-11-04 06:27] LABS: ALB/GLOB RATIO 0.9 (0.9-2); PHOSPHORUS 3.5 mg/dl (2.5-4.9)
[2016-11-04] MEDS: VALPROIC ACID 500 MG/10 ML UDP PO SCH (06:27)
[2016-11-04] MEDS: CLONIDINE HCL 0.1 MG TAB PO SCH ×4 (07:38→20:58)
[2016-11-04] MEDS: POTASSIUM CHLORIDE 20 MEQ/15 ML UDC NG SCH (07:38)
[2016-11-04] MEDS: THIAMINE HCL INJ 250 MG in SODIUM CHLORIDE 0.9% 100ML 100 ML IV SCH (07:38)
[2016-11-04] MEDS: GABAPENTIN 250 MG/5 ML 470 ML BTL NG SCH ×4 (07:38→20:57)
[2016-11-04] MEDS: CHOLECALCIFEROL 1000 INTER.UNIT TAB PO SCH (07:39)
[2016-11-04] MEDS: POLYETHYLENE (MIRALAX) 17 GM PACK PO SCH (07:39)
[2016-11-04] MEDS: SENNA 17.6 MG/10 ML UDP PO SCH (07:39)
[2016-11-04] MEDS: PROPRANOLOL HCL 10 MG TAB PO SCH (07:39)
[2016-11-04] MEDS: DOCUSATE SODIUM 100 MG/10 ML UDC PO SCH ×2 (07:39→20:59)
[2016-11-04] MEDS: MULTIVITAMINS W/MINERALS 15ML UDP PO SCH (07:39)
[2016-11-04] MEDS: TRIAMCINOLONE ACET 0.025% CR 15 GM TUBE EXT SCH ×2 (07:40→21:00)
[2016-11-04] MEDS: ENOXAPARIN 40 MG/0.4 ML SYR SQ SCH (07:40)
[2016-11-04] MEDS ORDERED: VALPROIC ACID 500 MG/10 ML UDP PO SCH (07:59)
[2016-11-04] MEDS ORDERED: KETAMINE HCL INJ 50 MG/ML 10 ML VIAL IV PRN (08:04)
[2016-11-04] MEDS ORDERED: VALPROIC ACID SYRUP 250 MG/5 ML PO ONE (08:15)
--- NOTE | 2016-11-04 08:34 | DIAGNOSTIC IMAGING REPORT ---
SINGLE VIEW CHEST CLINICAL HISTORY: Dyspnea. FINDINGS: An AP, portable, upright chest radiograph is compared to chest x-ray and chest CT dated 11/03/2016. The examination is degraded by portable technique and patient rotation. An enteric tube is unchanged in position. The cardiomediastinal silhouette is unremarkable. There are layering pleural effusions, left larger than right with bibasilar consolidation. There is volume loss in the left lung. The upper lobes appear clear. No pneumothorax is seen. The bony thorax is grossly intact. IMPRESSION: There are layering pleural effusions, left larger than right with bibasilar consolidation. This could represent atelectasis and/or pneumonia. Atelectasis is favored given the volume loss in the left lung. Clinical correlation will be required. Electronically signed by: Brice Suero M.D. 11/04/2016 8:33 AM Dictated Date/Time: 11/04/2016 8:30 AM
[2016-11-04] MEDS: ALBUTEROL 0.083% NEBU SOLN 3 ML VIAL INH SCH ×2 (09:06→19:42)
[2016-11-04] MEDS: ACETYLCYSTEINE 20% INHAL SOLN ***DISPENSED BY RESP. INH SCH ×2 (09:06→19:42)
--- NOTE | 2016-11-04 09:28 | Critical Care Progress Note ---
Critical Care Progress Note Date of Service November 04, 2016. ICU Day ICU Day Number: [address] Patel Subjective Episode of agitated delirium requiring IV ketamine 1 last night Continued improvement in mental status, mildly increasing sleep duration overnight Objective General Appearance: calm, comfortable Head: normocephalic, atraumatic Neck: trachea midline, no stridor, no JVD Respiratory: clear to auscultation, no added sounds or wheezing Cardiovascular: normal S1S2, no added sounds or murmurs Abdomen: non tender, normal bowel sounds, no rebound Upper Extremities: other (multiple ecchymoses of varying age) Lower Extremities: no edema, no deformity, other (multiple ecchymoses of varying age), no calf tenderness Neuro: Moves all 4 extremities when lightening sedation, Alert to person only, CAM ICU positive, cannot purposefully follow commands Current SOFA Score SOFA Score Response (Comments) Value SaO2 / FIO2 221 - 301 1 Platelets (x10) > 150 0 Bilirubin (mg/dL) < 1.2 0 Do Coma Score 13 - 14 1 Level of Hypotension No Hypotension 0 Creatinine (mg/dL) < 1.2 0 Total 2 Previous SOFA Scores 4 on 11/03/2016 Assessment & Plan (1) History of traumatic brain injury (2) Alcohol withdrawal (3) Multiple contusions (4) Tobacco abuse (5) Alcohol abuse (1) Wernicke-Korsakoff syndrome (2) Alcohol withdrawal (3) Malnutrition related to chronic disease (4) History of traumatic brain injury (5) Multiple contusions (6) Tobacco abuse (7) Alcohol abuse (8) Thrombocytopenia NEUROLOGICAL - GCS: 13 Eyes: 4; Verbal: 3; Motor 6 - Sedation: ketamine dose decreased from 50 mg to 25 mg q 4 hours when necessary severe agitation - Depakote: Increased dose to 675 every 8 hours IV which is total daily dose of 25 mg/kg (Depakote level LII low and normal, we will order Depakote level for morning of November 07) Strict sleep hygiene - Decreased Valium from 30 mg every 4 hours to 25 mg every 4 hours Wernicke's Korsakoff's Syndrome - 2/2 EtOH abuse and nutrient deficiency - Escalate Thiamine repletion Currently on Thiamin 250 mg x 5 days - Psych consulted for protracted agitated delirium; recommendations appreciated - Needs assessment for inpatient rehabilitation when medically stable CARDIOVASCULAR - BP: 120-150 systolic, MAP 100s - HR 60-70, NSR - Vasopressor support: None Hypertension - Following medication administration, patient does have episodes of BP being 80s/50s Continue Clonidine to 0.4 mg QID Discontinue Propranolol 10 mg TID Prolonged QTc - improved to 462 today RESPIRATORY - RR: 16-18 SpO2: 96% on 2 L NC Day 3 s/p extubation and doing well - Albuterol nebulizers scaled back to PRN only Acute Respiratory Distress - ABG: pH 7.43; pCO2 39; pO2 45; Bicarb 26 --> Acute Hypoxic Respiratory Failure - CXR suggestive of left basilar opacity, concerning for possible aspiration of tube feeds - CT PE negative - Possible secretory effect of sedatives Will administer Glycopyrrolate to counter secretion when given ketamine - Assist with sputum expectoration Chest vest, rotating bed vibration mode Mucomyst/albuterol My concern for bronchoscopy and sedation versus capable cough to expectorate sputum as of my highest concern. We'll continue with chest physiotherapy and nebulizers GASTROINTESTINAL - Diet: Continue Tube feeds - GI Prophylaxis: Resume pantoprazole until tube feeds are re-started - Bowel regimen: Colace, Senna, Dulcolax Chronic Malnutrition - 2/2 chronic alcohol abuse, Continue Thiamine, Continue Folate 1 mg qAM, Continue Multivitamin daily RENAL//ENDOCRINE - Fluid Balance Consider patient euvolemic - Cr stable at 0.67 - Electrolytes: - K 3.8 this morning; continue daily supplementation - BS-110, stable; no indications for insulin - Patient has not been hyperglycemic nor hypoglycemic will change blood glucose checks to when necessary HEMATOLOGY / INFECTIOUS DISEASES - Tmax: Afebrile WBC: 13 Possible developing pneumonia secondary to aspiration Monitor clinically for pneumonia vs pneumonitis - Augmentin 875 twice a day for 7 days secondary to aspiration pneumonia - Hb/Hct stable at 12/35, stable Thrombocytopenia - Resolved - DVT Prophylaxis: Lovenox 40 mg qAM LINES/IV ACCESS - 18 G left forearm - 20 G right forearm CODE STATUS - Full Code DISPOSITION - OT/PT: Ordered - ICU due extreme intermittent agitation Resident Physician Supervision Note: Dr. Walter was resident physician during care of patient. I separately evaluated patient and did history and exam. I discussed the case with the resident and generally agree with the findings and plan. Patient continues to slowly improve mentally. At this point we are starting to decrease total benzodiazepine dose, we have been able to remove the antipsychotics, will continue with nutritional supplementation, and the patient will likely need long-term gabapentin and Depakote to assist with chronic alcoholism. As the patient is still requiring breakthrough IV chemical restraints we will continue to observe the patient in the ICU I have personally spent 35 minutes of critical care time in the direct management of this patient. This is a life/limb threatening event. This includes time spent evaluating patient, direct bedside care, chart review, placing orders, interpretation of diagnostic studies, discussion with consultants, patient, and family members, as well as other required patient management activities. This time is exclusive of all separately billable procedures, and teaching time and separate from and in addition to any other critical care service time. Consults & Procedures Consultants: Mental health Procedures: Endotracheal intubation 10/20/2016 Bronchoscopy 10/22/2016 CT PE negative on 11/03/2016 Data Medications: Current Inpatient Medications Medications (Trade) Dose Ordered Sig/Riac Route Start Time Stop Time Status Last Admin Dose Admin Acetaminophen (Tylenol Tab) 650 mg Q4H PRN PO 10/20/16 16:00 11/19/16 15:59 Ondansetron HCl (Zofran Inj) 4 mg Q6H PRN IV 10/20/16 16:00 11/19/16 15:59 10/20/16 19:31 4 MG Lorazepam (Ativan Inj) PRN Dosing -Active Protocol Q1H PRN IV 10/20/16 16:00 11/19/16 15:59 Future Hold 11/02/16 05:54 2 MG Multivitamins Therapeutic (Cerovite Liquid) 15 ml QAM PO 10/21/16 09:00 11/20/16 08:59 11/04/16 07:39 15 ML Folic Acid (Folvite Tab) 1 mg QAM PO 10/21/16 09:00 11/20/16 08:59 11/04/16 07:39 1 MG Polyethylene (Miralax Powder Packet) 17 gm QAM PO 10/23/16 09:00 11/22/16 08:59 11/04/16 07:39 17 GM Docusate Sodium (coLACE SYRUP) 100 mg BID PO 10/23/16 09:00 11/22/16 08:59 11/04/16 07:39 100 MG Heparin Sodium (Porcine) (Heparin 10 Unit/ ml 5 ml Flush) 5 ml PRN PRN FLUSH 10/24/16 01:45 11/23/16 01:44 10/31/16 13:16 10 ML Enoxaparin Sodium (Lovenox Inj) 40 mg QAM SQ 10/25/16 09:00 11/24/16 08:59 11/04/16 07:40 40 MG Bisacodyl (Dulcolax Supp) 10 mg DAILY PRN GA 10/27/16 09:00 11/26/16 08:59 10/29/16 07:16 10 MG Cholecalciferol (Vitamin D Tab) 2,000 inter.unit DAILY PO 10/27/16 14:30 11/26/16 14:29 11/04/16 07:39 2,000 INTER.UNIT Senna (Senokot Syrup) 17.6 mg QAM PO 10/29/16 09:00 11/28/16 08:59 11/04/16 07:39 17.6 MG Triamcinolone Acetonide (Kenalog 0.025% Crm) 1 appln BID EXT 10/29/16 21:00 11/28/16 20:59 11/04/16 07:40 1 APPLN Enteral Nutritional Formula (Peptamen Intense VHP) 1,000 ml UD NG 10/29/16 16:15 11/03/16 20:35 1,000 ML Albuterol/ Ipratropium (Duoneb) 3 ml Q6H PRN INH 10/30/16 10:00 11/29/16 09:59 Magnesium Oxide 400 mg 400 mg DAILY PO 11/01/16 09:00 12/01/16 08:59 Future Hold 11/02/16 07:50 400 MG Thiamine HCl/ Sodium Chloride (Vitamin B-1 Inj/ Nss 100ml) 102.5 ml @ 210 mls/hr DAILY IV 11/03/16 09:00 11/07/16 09:30 11/04/16 07:38 210 MLS/HR Gabapentin (Neurontin) 600 mg QID NG 11/02/16 13:00 12/02/16 12:59 11/04/16 07:38 600 MG Potassium Chloride (Lakeisha Ciel Elix) 60 meq QAM NG 11/03/16 09:49 12/03/16 09:48 11/04/16 07:38 60 MEQ Ioversol (Optiray 320) 125 ml UD PRN IV 11/03/16 10:00 11/07/16 09:59 Glycopyrrolate (Robinul Inj) 0.1 mg Q4H PRN IV 11/03/16 11:45 12/03/16 11:44 11/03/16 21:30 0.1 MG Clonidine HCl (Catapres Tab) 0.4 mg QID PO 11/03/16 17:00 12/03/16 16:59 11/04/16 07:38 0.4 MG Valproic Acid (Depakene Syrup) 675 mg Q8H PO 11/04/16 14:00 12/04/16 13:59 Diazepam (Valium Tab) 25 mg Q4H PO 11/04/16 09:00 12/04/16 08:59 Ketamine HCl (Ketalar Steri-Vial Inj) 25 mg QID PRN IV 11/04/16 08:04 12/04/16 08:03 Albuterol Sulfate (Ventolin 0.083% 2.5MG/3ML Neb) 2.5 mg BIDR INH 11/04/16 09:00 12/04/16 08:59 11/04/16 09:06 2.5 MG Acetylcysteine (Mucomyst 20% Inh Soln) 5 ml BIDR INH 11/04/16 09:00 12/04/16 08:59 11/04/16 09:06 5 ML Amoxicillin/ Clavulanate Potassium (Augmentin Tab) 875 mg BIDM PO 11/04/16 09:00 11/11/16 08:59 I & O: 24-Hour Column 11/04/16 08:00 Intake Total 1652 ml Output Total 215 ml Balance 1437 ml Vital Signs: Date Time Temp Pulse Resp B/P Pulse Ox O2 Delivery O2 Flow Rate FiO2 11/04/16 09:06 85 18 97 Nasal Cannula 4.0 11/04/16 05:16 87 24 103/69 Nasal Cannula 4.0 11/04/16 05:10 99 Nasal Cannula 4.0 11/04/16 04:01 90 111/66 100 Nasal Cannula 4.0 11/04/16 03:17 96 82/58 98 Nasal Cannula 4.0 11/04/16 03:02 104 95/79 99 Nasal Cannula 4.0 11/04/16 02:46 86 122/73 100 Nasal Cannula 4.0 11/04/16 02:31 92 100/59 94 Nasal Cannula 4.0 11/04/16 02:16 98 90/54 100 Nasal Cannula 4.0 11/04/16 02:01 93 20 81/43 94 Nasal Cannula 4.0 11/04/16 01:59 90 22 119/73 95 Nasal Cannula 4.0 11/04/16 01:32 97 88/69 97 Nasal Cannula 4.0 11/04/16 01:17 103 97/55 100 Nasal Cannula 4.0 11/04/16 01:07 103 112/65 100 Nasal Cannula 4.0 11/04/16 00:32 84 19 122/65 100 Nasal Cannula 4.0 11/04/16 00:16 83 19 101/63 100 11/04/16 00:16 83 19 101/63 100 Nasal Cannula 4.0 11/04/16 00:15 99 Nasal Cannula 4.0 11/04/16 00:10 88 18 110/61 96 Nasal Cannula 4.0 11/03/16 23:47 88 15 113/77 97 Nasal Cannula 4.0 11/03/16 23:31 79 16 133/76 85 Nasal Cannula 4.0 11/03/16 23:16 82 17 134/72 100 Nasal Cannula 4.0 11/03/16 23:06 87 18 138/73 99 Nasal Cannula 4.0 11/03/16 22:47 76 24 122/80 95 Nasal Cannula 11/03/16 22:31 77 19 114/84 97 Nasal Cannula 4.0 11/03/16 22:17 83 28 100/82 97 Nasal Cannula 4.0 11/03/16 22:09 83 17 112/83 97 Nasal Cannula 4.0 11/03/16 22:02 84 17 135/117 97 Nasal Cannula 4.0 11/03/16 21:47 89 24 111/62 100 Nasal Cannula 4.0 11/03/16 21:31 90 20 124/80 99 Nasal Cannula 4.0 11/03/16 21:30 94 17 120/92 100 Nasal Cannula 4.0 11/03/16 21:28 104 86/63 99 Nasal Cannula 4.0 11/03/16 21:17 102 68/53 100 Nasal Cannula 4.0 11/03/16 21:02 89 17 105/71 92 Nasal Cannula 4.0 11/03/16 20:47 103 27 96/80 100 Nasal Cannula 4.0 11/03/16 20:31 88 17 81/67 100 Nasal Cannula 4.0 11/03/16 20:16 88 23 93/64 95 Nasal Cannula 4.0 11/03/16 20:02 99 Nasal Cannula 4.0 11/03/16 20:01 92 20 102/66 93 Nasal Cannula 4.0 11/03/16 19:47 99 14 103/92 90 Nasal Cannula 4.0 11/03/16 19:31 95 16 83/58 91 Nasal Cannula 4.0 11/03/16 19:17 102 20 105/55 92 Nasal Cannula 4.0 11/03/16 18:31 78 18 106/73 99 Nasal Cannula 4.0 11/03/16 18:16 74 22 116/76 100 Nasal Cannula 4.0 11/03/16 18:01 83 16 95/66 94 Nasal Cannula 4.0 11/03/16 17:46 90 26 110/71 100 Nasal Cannula 4.0 11/03/16 17:32 88 21 86/64 91 Nasal Cannula 4.0 11/03/16 17:16 89 17 103/67 100 Nasal Cannula 4.0 11/03/16 17:07 85 17 104/64 98 Nasal Cannula 4.0 11/03/16 17:02 85 14 74/58 95 Nasal Cannula 4.0 11/03/16 16:46 90 29 91/70 92 Nasal Cannula 4.0 11/03/16 16:31 83 25 106/59 100 Nasal Cannula 4.0 11/03/16 16:16 81 15 101/64 100 Nasal Cannula 4.0 11/03/16 16:05 99 Nasal Cannula 4.0 11/03/16 16:01 37.3 80 17 103/72 95 Nasal Cannula 4.0 11/03/16 15:00 83 16 104/55 95 4.0 11/03/16 14:00 86 23 80/55 95 4.0 11/03/16 13:50 84 25 96/58 98 4.0 11/03/16 13:47 95 25 67/43 11/03/16 13:30 85 23 89/65 96 11/03/16 12:01 Nasal Cannula 4.0 11/03/16 11:40 82 18 98 Nasal Cannula 4.0 11/03/16 11:15 36.5 80 14 113/79 93 Nasal Cannula 4.0 11/03/16 10:00 86 25 113/77 90 Nasal Cannula 6.0 Laboratory Results: Last 24 Hours Test 11/03/16 09:36 11/03/16 09:44 11/03/16 11:39 11/04/16 05:40 Blood Gas Sample Site R Radial R Radial Bedside Blood Gas pH (LAB) 7.49 7.43 Bedside Blood Gas pCO2 (LAB) 36 mmHg 39 mmHg Bedside Blood Gas pO2 (LAB) 34 mmHg 45 mmHg Bedside Blood Gas HCO3 (LAB) 27 meq/L 26 meq/L Bedside Blood Gas Total CO2 28 mEq/l 27 mEq/l Bedside Blood Gas Base Excess (LAB) 4.0 meq/L 2.0 meq/L Bedside Blood Gas O2 Saturation 71.0 % 81.0 % Kiran Test Pass Pass Oxygen Delivery Device NonRb Mask NonRb Mask Bedside FiO2 100 % 100 % Bedside Glucose 74 mg/dl White Blood Count 13.69 K/uL Red Blood Count 3.62 M/uL Hemoglobin 11.2 g/dL Hematocrit 33.4 % Mean Corpuscular Volume 92.3 fL Mean Corpuscular Hemoglobin 30.9 pg Mean Corpuscular Hemoglobin Concent 33.5 g/dl Platelet Count 344 K/uL Mean Platelet Volume 9.9 fL Neutrophils (%) (Auto) 83.8 % Lymphocytes (%) (Auto) 9.1 % Monocytes (%) (Auto) 6.6 % Eosinophils (%) (Auto) 0.1 % Basophils (%) (Auto) 0.2 % Neutrophils # (Auto) 11.47 K/uL Lymphocytes # (Auto) 1.25 K/uL Monocytes # (Auto) 0.90 K/uL Eosinophils # (Auto) 0.01 K/uL Basophils # (Auto) 0.03 K/uL RDW Standard Deviation 43.1 fL RDW Coefficient of Variation 12.8 % Immature Granulocyte % (Auto) 0.2 % Immature Granulocyte # (Auto) 0.03 K/uL Sodium Level 144 mmol/L Potassium Level 3.8 mmol/L Chloride Level 109 mmol/L Carbon Dioxide Level 28 mmol/L Anion Gap 7.0 mmol/L Blood Urea Nitrogen 17 mg/dl Creatinine 0.67 mg/dl Est Creatinine Clear Calc Drug Dose 143.1 ml/min Estimated GFR () 125.4 Estimated GFR (Non- 108.2 BUN/Creatinine Ratio 25.7 Random Glucose 109 mg/dl Calcium Level 8.9 mg/dl Phosphorus Level 3.5 mg/dl Magnesium Level 2.6 mg/dl Total Bilirubin 0.6 mg/dl Aspartate Amino Transf (AST/SGOT) 18 U/L Alanine Aminotransferase (ALT/SGPT) 41 U/L Alkaline Phosphatase 143 U/L Total Protein 7.0 gm/dl Albumin 3.3 gm/dl Globulin 3.7 gm/dl Albumin/Globulin Ratio 0.9 Valproic Acid (Depakene) Level 52 mcg/ml Problem Qualifiers (1) Alcohol withdrawal: Complication of substance-induced condition: with delirium Qualified Codes: F10.231 - Alcohol dependence with withdrawal delirium
[2016-11-04] MEDS: AMOXICILLIN/CLAVULANATE TAB 875 MG TAB PO SCH ×2 (09:52→16:22)
[2016-11-04] MEDS: VALPROIC ACID SYRUP 250 MG/5 ML PO SCH ×2 (12:08→20:58)
--- NOTE | 2016-11-04 14:12 | Progress Note ---
Internal Med Progress Note Date of Service: November 04, 2016. Provider Documentation: SUBJECTIVE: The Patient was seen and examined Pleasantly confused OOB in a chair Communicating with some difficulty OBJECTIVE: Vital Signs-as noted below Exam: General-Pleasantly Confused,generally weak and lethargic Eyes-normal ENT-Normal Neck-supple Lungs-Transmitted sounds and minimal crackles at the bases Heart-Regular,no murmur appreciated Abdomen-Benign,no masses,bowel sound present Extremities-No edema Neuro-drowsy and confused Moving all limbs ,? weaker on left side Lab data as noted below. ASSESSMENT & PLAN: DELIRIUM TREMENS -secondary to Alcohol abuse -s/p Extubation -Was on versed and propofol drip -Continue thiamine with higher doses Folic acid and IVF - EEG done showed no seizure activity -Required heavy dose of Benzodiazepines -will try to wean off gradually -Getting Gabapentin and Clonidine -remains confused -will initiate PT/OT starting at bedside and progress as tolerated 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 Appreciate Psychiatry input Taper down Benzodiazepine Seroquel started Remains pleasantly confused but improving PNEUMONIA Likely secondary to Aspiration CXR showed Progression of bibasilar opacities, right greater than left Received Unasyn and Zithromax Has had a bronch done 10/22 Bronchial washings sent for culture and Gram stain, cx growth normal amish Fungal elements, and AFB stain negative D/C Azithromycin on 27 of October Finished the courses of antibiotics Started on Augmentin again for possible aspiration Elevated Liver Enzymes -likely secondary to alcohol abuse -Hepatitis B and C negative -continue monitor liver enzymes-improving THROMBOCYTOPENIA -secondary to Alcohol abuse and Cirrhosis -platelet improved from 35 to 50-->73 today -no pharmacologic anticoagulation initially -normalized ELEVATED CK LEVEL Likely from recurrent trauma Resolved Electrolytes Imbalance Supplement and Monitor TOBACCO ABUSE -Nicotine patch ordered DVT PROPHYLAXIS: SCDs RE: thrombocytopenia Will consider Heparin irf platelet goes >100 Started on Lovenox CODE STATUS: FULL CODE Consultants: HABILITATION TRAINING SPECIALIST Procedures: Bronchoscopy Family 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 by Sports Attorney Vital Signs: Date Time Temp Pulse Resp B/P Pulse Ox O2 Delivery O2 Flow Rate FiO2 11/04/16 14:02 80 16 100 Nasal Cannula 2.0 11/04/16 12:00 76 18 110/70 100 Nasal Cannula 2.0 11/04/16 12:00 Nasal Cannula 4.0 11/04/16 10:00 82 14 Nasal Cannula 4.0 11/04/16 09:06 85 18 97 Nasal Cannula 4.0 11/04/16 08:00 85 18 105/66 97 Nasal Cannula 4.0 11/04/16 08:00 Nasal Cannula 4.0 11/04/16 05:16 87 24 103/69 Nasal Cannula 4.0 11/04/16 05:10 99 Nasal Cannula 4.0 11/04/16 04:01 90 111/66 100 Nasal Cannula 4.0 11/04/16 03:17 96 82/58 98 Nasal Cannula 4.0 11/04/16 03:02 104 95/79 99 Nasal Cannula 4.0 11/04/16 02:46 86 122/73 100 Nasal Cannula 4.0 11/04/16 02:31 92 100/59 94 Nasal Cannula 4.0 11/04/16 02:16 98 90/54 100 Nasal Cannula 4.0 11/04/16 02:01 93 20 81/43 94 Nasal Cannula 4.0 11/04/16 01:59 90 22 119/73 95 Nasal Cannula 4.0 11/04/16 01:32 97 88/69 97 Nasal Cannula 4.0 11/04/16 01:17 103 97/55 100 Nasal Cannula 4.0 11/04/16 01:07 103 112/65 100 Nasal Cannula 4.0 11/04/16 00:32 84 19 122/65 100 Nasal Cannula 4.0 11/04/16 00:16 83 19 101/63 100 11/04/16 00:16 83 19 101/63 100 Nasal Cannula 4.0 11/04/16 00:15 99 Nasal Cannula 4.0 11/04/16 00:10 88 18 110/61 96 Nasal Cannula 4.0 11/03/16 23:47 88 15 113/77 97 Nasal Cannula 4.0 11/03/16 23:31 79 16 133/76 85 Nasal Cannula 4.0 11/03/16 23:16 82 17 134/72 100 Nasal Cannula 4.0 11/03/16 23:06 87 18 138/73 99 Nasal Cannula 4.0 11/03/16 22:47 76 24 122/80 95 Nasal Cannula 11/03/16 22:31 77 19 114/84 97 Nasal Cannula 4.0 11/03/16 22:17 83 28 100/82 97 Nasal Cannula 4.0 11/03/16 22:09 83 17 112/83 97 Nasal Cannula 4.0 11/03/16 22:02 84 17 135/117 97 Nasal Cannula 4.0 11/03/16 21:47 89 24 111/62 100 Nasal Cannula 4.0 11/03/16 21:31 90 20 124/80 99 Nasal Cannula 4.0 11/03/16 21:30 94 17 120/92 100 Nasal Cannula 4.0 11/03/16 21:28 104 86/63 99 Nasal Cannula 4.0 11/03/16 21:17 102 68/53 100 Nasal Cannula 4.0 11/03/16 21:02 89 17 105/71 92 Nasal Cannula 4.0 11/03/16 20:47 103 27 96/80 100 Nasal Cannula 4.0 11/03/16 20:31 88 17 81/67 100 Nasal Cannula 4.0 11/03/16 20:16 88 23 93/64 95 Nasal Cannula 4.0 11/03/16 20:02 99 Nasal Cannula 4.0 11/03/16 20:01 92 20 102/66 93 Nasal Cannula 4.0 11/03/16 19:47 99 14 103/92 90 Nasal Cannula 4.0 11/03/16 19:31 95 16 83/58 91 Nasal Cannula 4.0 11/03/16 19:17 102 20 105/55 92 Nasal Cannula 4.0 11/03/16 18:31 78 18 106/73 99 Nasal Cannula 4.0 11/03/16 18:16 74 22 116/76 100 Nasal Cannula 4.0 11/03/16 18:01 83 16 95/66 94 Nasal Cannula 4.0 11/03/16 17:46 90 26 110/71 100 Nasal Cannula 4.0 11/03/16 17:32 88 21 86/64 91 Nasal Cannula 4.0 11/03/16 17:16 89 17 103/67 100 Nasal Cannula 4.0 11/03/16 17:07 85 17 104/64 98 Nasal Cannula 4.0 11/03/16 17:02 85 14 74/58 95 Nasal Cannula 4.0 11/03/16 16:46 90 29 91/70 92 Nasal Cannula 4.0 11/03/16 16:31 83 25 106/59 100 Nasal Cannula 4.0 11/03/16 16:16 81 15 101/64 100 Nasal Cannula 4.0 11/03/16 16:05 99 Nasal Cannula 4.0 11/03/16 16:01 37.3 80 17 103/72 95 Nasal Cannula 4.0 11/03/16 15:00 83 16 104/55 95 4.0 Lab Results: Results Past 24 Hours Test 11/04/16 05:40 Range/Units White Blood Count 13.69 4.8-10.8 K/uL Red Blood Count 3.62 4.7-6.1 M/uL Hemoglobin 11.2 14.0-18.0 g/dL Hematocrit 33.4 42-52 % Mean Corpuscular Volume 92.3 80-100 fL Mean Corpuscular Hemoglobin 30.9 25-34 pg Mean Corpuscular Hemoglobin Concent 33.5 32-36 g/dl Platelet Count 344 130-400 K/uL Mean Platelet Volume 9.9 7.4-10.4 fL Neutrophils (%) (Auto) 83.8 % Lymphocytes (%) (Auto) 9.1 % Monocytes (%) (Auto) 6.6 % Eosinophils (%) (Auto) 0.1 % Basophils (%) (Auto) 0.2 % Neutrophils # (Auto) 11.47 1.4-6.5 K/uL Lymphocytes # (Auto) 1.25 1.2-3.4 K/uL Monocytes # (Auto) 0.90 0.11-0.59 K/uL Eosinophils # (Auto) 0.01 0-0.5 K/uL Basophils # (Auto) 0.03 0-0.2 K/uL RDW Standard Deviation 43.1 36.4-46.3 fL RDW Coefficient of Variation 12.8 11.5-14.5 % Immature Granulocyte % (Auto) 0.2 % Immature Granulocyte # (Auto) 0.03 0.00-0.02 K/uL Sodium Level 144 136-145 mmol/L Potassium Level 3.8 3.5-5.1 mmol/L Chloride Level 109 98-107 mmol/L Carbon Dioxide Level 28 21-32 mmol/L Anion Gap 7.0 3-11 mmol/L Blood Urea Nitrogen 17 7-18 mg/dl Creatinine 0.67 0.60-1.40 mg/dl Est Creatinine Clear Calc Drug Dose 143.1 ml/min Estimated GFR () 125.4 Estimated GFR (Non- 108.2 BUN/Creatinine Ratio 25.7 10-20 Random Glucose 109 70-99 mg/dl Calcium Level 8.9 8.5-10.1 mg/dl Phosphorus Level 3.5 2.5-4.9 mg/dl Magnesium Level 2.6 1.8-2.4 mg/dl Total Bilirubin 0.6 0.2-1 mg/dl Aspartate Amino Transf (AST/SGOT) 18 15-37 U/L Alanine Aminotransferase (ALT/SGPT) 41 12-78 U/L Alkaline Phosphatase 143 45-117 U/L Total Protein 7.0 6.4-8.2 gm/dl Albumin 3.3 3.4-5.0 gm/dl Globulin 3.7 2.5-4.0 gm/dl Albumin/Globulin Ratio 0.9 0.9-2 Valproic Acid (Depakene) Level 52 50-100 mcg/ml
[2016-11-04] MEDS: PEPTAMEN INTENSE VHP 1000ML BAG NG SCH (16:54)
[2016-11-05] VITALS (18 sets, daily range): BP systolic 108–152; BP diastolic 68–116; PULSE 70–103; TEMP 36.8–37.2; O2SAT 92–99
[2016-11-05] MEDS: DIAZEPAM 5MG TAB PO SCH ×6 (00:50→20:47)
[2016-11-05] MEDS: VALPROIC ACID SYRUP 250 MG/5 ML PO SCH ×3 (05:43→22:13)
[2016-11-05 06:04] LABS: BASO % 0.4 %; BASO ABS # 0.02 K/uL (0-0.2); COMPLETE YES; EOS % 0.5 %; HEMATOCRIT 34.2 % (42-52); IG% 0.4 %; LYMPH % 22.6 %; LYMPH ABS # 1.26 K/uL (1.2-3.4); MEAN CELL VOLUME 93.4 fL (80-100); MEAN CORPUSCULAR HEMOGLOBIN 31.4 pg (25-34); MEAN CORPUSCULAR HGB CONC 33.6 g/dl (32-36); MEAN PLATELET VOLUME 10.2 fL (7.4-10.4); MONO % 8.6 %; NEUT % 67.5 %; PLATELET COUNT 372 K/uL (130-400); RED BLOOD COUNT 3.66 M/uL (4.7-6.1); WHITE BLOOD COUNT 5.58 K/uL (4.8-10.8)
[2016-11-05 06:29] LABS: BUN/CREATININE RATIO 29.4 (10-20); CALCIUM 9.1 mg/dl (8.5-10.1); CREATININE 0.54 mg/dl (0.60-1.40); MAGNESIUM 2.4 mg/dl (1.8-2.4)
[2016-11-05 06:34] LABS: ALB/GLOB RATIO 0.9 (0.9-2)
[2016-11-05] MEDS: ACETYLCYSTEINE 20% INHAL SOLN ***DISPENSED BY RESP. INH SCH ×2 (07:39→19:34)
[2016-11-05] MEDS: ALBUTEROL 0.083% NEBU SOLN 3 ML VIAL INH SCH ×2 (07:39→19:34)
[2016-11-05] MEDS: DOCUSATE SODIUM 100 MG/10 ML UDC PO SCH ×2 (08:58→20:46)
[2016-11-05] MEDS: POTASSIUM CHLORIDE 20 MEQ/15 ML UDC NG SCH (08:58)
[2016-11-05] MEDS: MULTIVITAMINS W/MINERALS 15ML UDP PO SCH (08:59)
[2016-11-05] MEDS: POLYETHYLENE (MIRALAX) 17 GM PACK PO SCH (08:59)
[2016-11-05] MEDS: CHOLECALCIFEROL 1000 INTER.UNIT TAB PO SCH (08:59)
[2016-11-05] MEDS: CLONIDINE HCL 0.1 MG TAB PO SCH ×4 (08:59→20:47)
[2016-11-05] MEDS: SENNA 17.6 MG/10 ML UDP PO SCH (08:59)
[2016-11-05] MEDS: ENOXAPARIN 40 MG/0.4 ML SYR SQ SCH (09:00)
[2016-11-05] MEDS: TRIAMCINOLONE ACET 0.025% CR 15 GM TUBE EXT SCH ×2 (09:01→20:48)
[2016-11-05] MEDS: THIAMINE HCL INJ 250 MG in SODIUM CHLORIDE 0.9% 100ML 100 ML IV SCH (09:01)
[2016-11-05] MEDS: GABAPENTIN 250 MG/5 ML 470 ML BTL NG SCH ×4 (09:01→20:47)
--- NOTE | 2016-11-05 09:28 | Critical Care Progress Note ---
Critical Care Progress Note Date of Service November 05, 2016. ICU Day ICU Day Number: [address] Patel Subjective Increased responsiveness, improved mental status, no IV sedatives overnight Objective General Appearance: calm, comfortable Head: normocephalic, atraumatic Neck: trachea midline, no stridor, no JVD Respiratory: clear to auscultation, no added sounds or wheezing Cardiovascular: normal S1S2, no added sounds or murmurs Abdomen: non tender, normal bowel sounds, no rebound Upper Extremities: other (multiple ecchymoses of varying age) Lower Extremities: no edema, no deformity, other (multiple ecchymoses of varying age), no calf tenderness Neuro: Moves all 4 extremities when lightening sedation, Alert to person only, CAM ICU positive Current SOFA Score SOFA Score Response (Comments) Value SaO2 / FIO2 221 - 301 1 Platelets (x10) > 150 0 Bilirubin (mg/dL) < 1.2 0 Do Coma Score 13 - 14 1 Level of Hypotension No Hypotension 0 Creatinine (mg/dL) < 1.2 0 Total 2 Previous SOFA Scores 2 on 11/04/2016 Assessment & Plan (1) History of traumatic brain injury (2) Alcohol withdrawal (3) Multiple contusions (4) Tobacco abuse (5) Alcohol abuse (1) History of traumatic brain injury (2) Alcohol withdrawal (3) Multiple contusions (4) Tobacco abuse (5) Alcohol abuse (1) Wernicke-Korsakoff syndrome (2) Alcohol withdrawal (3) Malnutrition related to chronic disease (4) History of traumatic brain injury (5) Multiple contusions (6) Tobacco abuse (7) Alcohol abuse (8) Thrombocytopenia NEUROLOGICAL - GCS: 14 Eyes: 4; Verbal: 4; Motor 6 - Sedation: ketamine discontinued - Depakote: 675 milligrams every 8 hours IV which is total daily dose of 25 mg/ kg (Depakote level LII low and normal, we will order Depakote level for morning of November 07) Strict sleep hygiene -Increased Valium dosing interval from 25 mg every 4 hours to 30 mg every 6 hours (30 mg daily dose reduction) Wernicke's Korsakoff's Syndrome - 2/2 EtOH abuse and nutrient deficiency - Escalate Thiamine repletion Currently on Thiamin 250 mg x 5 days - Psych consulted for protracted agitated delirium; recommendations appreciated - Needs assessment for inpatient rehabilitation when medically stable CARDIOVASCULAR - BP: 120-150 systolic, MAP 100s - HR 60-70, NSR - Vasopressor support: None Hypertension - Continue Clonidine to 0.4 mg QID (also augments withdrawal) Prolonged QTc RESPIRATORY - RR: 16-18 SpO2: 92% on room air - Albuterol nebulizers scaled back to PRN only Acute Respiratory Distress - ABG: pH 7.43; pCO2 39; pO2 45; Bicarb 26 --> Acute Hypoxic Respiratory Failure - CT PE negative - Possible secretory effect of sedatives Will administer Glycopyrrolate to counter secretion when given ketamine - Assist with sputum expectoration Chest vest, rotating bed vibration mode Mucomyst/albuterol My concern for bronchoscopy and sedation versus capable cough to expectorate sputum as of my highest concern. We'll continue with chest physiotherapy and nebulizers GASTROINTESTINAL - Diet: Continue Tube feeds - GI Prophylaxis: Resume pantoprazole until tube feeds are re-started - Bowel regimen: Colace, Senna, Dulcolax Chronic Malnutrition - 2/2 chronic alcohol abuse, Continue Thiamine, Continue Folate 1 mg qAM, Continue Multivitamin daily RENAL//ENDOCRINE - Fluid Balance Consider patient euvolemic - Electrolytes: - daily potassium supplementation - BS-110, stable; no indications for insulin - Patient has not been hyperglycemic nor hypoglycemic will change blood glucose checks to when necessary HEMATOLOGY / INFECTIOUS DISEASES - Tmax: Afebrile WBC: 5 Procalcitonin negative Discontinue Augmentin consider this to be aspiration pneumonitis no outward signs of pneumonia - Hb/Hct stable at 12/35, stable Thrombocytopenia - Resolved - DVT Prophylaxis: Lovenox 40 mg qAM LINES/IV ACCESS - 18 G left forearm - 20 G right forearm CODE STATUS - Full Code DISPOSITION - OT/PT: Ordered - ICU due extreme intermittent agitation Resident Physician Supervision Note: Dr. Walter was resident physician during care of patient. I separately evaluated patient and did history and exam. I discussed the case with the resident and generally agree with the findings and plan. Patient continues to slowly improve mentally. At this point we are continuing to decrease total benzodiazepine dose, we have been able to remove the antipsychotics, will continue with nutritional supplementation, and the patient will likely need long-term gabapentin and Depakote to assist with chronic alcoholism. We will observe the patient for another 24 hours to ensure no needs for IV chemical restraint and then likely downgrade out of the ICU Consults & Procedures Consultants: Mental health Procedures: Endotracheal intubation 10/20/2016 Bronchoscopy 10/22/2016 CT PE negative on 11/03/2016 Data Medications: Current Inpatient Medications Medications (Trade) Dose Ordered Sig/Rica Route Start Time Stop Time Status Last Admin Dose Admin Acetaminophen (Tylenol Tab) 650 mg Q4H PRN PO 10/20/16 16:00 11/19/16 15:59 Ondansetron HCl (Zofran Inj) 4 mg Q6H PRN IV 10/20/16 16:00 11/19/16 15:59 10/20/16 19:31 4 MG Lorazepam (Ativan Inj) PRN Dosing -Active Protocol Q1H PRN IV 10/20/16 16:00 11/19/16 15:59 Future Hold 11/02/16 05:54 2 MG Multivitamins Therapeutic (Cerovite Liquid) 15 ml QAM PO 10/21/16 09:00 11/20/16 08:59 11/05/16 08:59 15 ML Folic Acid (Folvite Tab) 1 mg QAM PO 10/21/16 09:00 11/20/16 08:59 11/05/16 08:59 1 MG Polyethylene (Miralax Powder Packet) 17 gm QAM PO 10/23/16 09:00 11/22/16 08:59 11/05/16 08:59 17 GM Docusate Sodium (coLACE SYRUP) 100 mg BID PO 10/23/16 09:00 11/22/16 08:59 11/05/16 08:58 100 MG Heparin Sodium (Porcine) (Heparin 10 Unit/ ml 5 ml Flush) 5 ml PRN PRN FLUSH 10/24/16 01:45 11/23/16 01:44 10/31/16 13:16 10 ML Enoxaparin Sodium (Lovenox Inj) 40 mg QAM SQ 10/25/16 09:00 11/24/16 08:59 11/05/16 09:00 40 MG Bisacodyl (Dulcolax Supp) [address] 10/27/16 09:00 11/26/16 08:59 10/29/16 07:16 10 MG Cholecalciferol (Vitamin D Tab) 2,000 inter.unit DAILY PO 10/27/16 14:30 6/18/17 14:29 11/05/16 08:59 2,000 INTER.UNIT Senna (Senokot Syrup) 17.6 mg QAM PO 10/29/16 09:00 11/28/16 08:59 11/05/16 08:59 17.6 MG Triamcinolone Acetonide (Kenalog 0.025% Crm) 1 appln BID EXT 10/29/16 21:00 11/28/16 20:59 11/05/16 09:01 1 APPLN Enteral Nutritional Formula (Peptamen Intense VHP) 1,000 ml UD NG 10/29/16 16:15 11/04/16 16:54 1,000 ML Albuterol/ Ipratropium (Duoneb) 3 ml Q6H PRN INH 10/30/16 10:00 11/29/16 09:59 Magnesium Oxide 400 mg 400 mg DAILY PO 11/01/16 09:00 12/01/16 08:59 Future Hold 11/02/16 07:50 400 MG Thiamine HCl/ Sodium Chloride (Vitamin B-1 Inj/ Nss 100ml) 102.5 ml @ 210 mls/hr DAILY IV 11/03/16 09:00 11/07/16 09:30 11/05/16 09:01 210 MLS/HR Gabapentin (Neurontin) 600 mg QID NG 11/02/16 13:00 12/02/16 12:59 11/05/16 09:01 600 MG Potassium Chloride (Lakeisha Ciel Elix) 60 meq QAM NG 11/03/16 09:49 12/03/16 09:48 11/05/16 08:58 60 MEQ Ioversol (Optiray 320) 125 ml UD PRN IV 11/03/16 10:00 11/07/16 09:59 Glycopyrrolate (Robinul Inj) 0.1 mg Q4H PRN IV 11/03/16 11:45 12/03/16 11:44 11/03/16 21:30 0.1 MG Clonidine HCl (Catapres Tab) 0.4 mg QID PO 11/03/16 17:00 12/03/16 16:59 11/05/16 08:59 0.4 MG Valproic Acid (Depakene Syrup) 675 mg Q8H PO 11/04/16 14:00 12/04/16 13:59 11/05/16 05:43 675 MG Albuterol Sulfate (Ventolin 0.083% 2.5MG/3ML Neb) 2.5 mg BIDR INH 11/04/16 09:00 12/04/16 08:59 11/05/16 07:39 2.5 MG Acetylcysteine (Mucomyst 20% Inh Soln) 5 ml BIDR INH 11/04/16 09:00 12/04/16 08:59 11/05/16 07:39 5 ML Diazepam (Valium Tab) 30 mg QID PO 11/05/16 09:00 12/05/16 08:59 11/05/16 08:59 30 MG I & O: 24-Hour Column 11/05/16 07:59 Intake Total 1221 ml Balance 1221 ml Vital Signs: Date Time Temp Pulse Resp B/P Pulse Ox O2 Delivery O2 Flow Rate FiO2 11/05/16 07:39 78 16 92 Room Air 11/05/16 06:03 36.8 103 17 108/68 96 11/05/16 05:02 36.8 103 20 123/69 11/05/16 04:07 99 Room Air 11/05/16 04:01 36.8 16 141/85 11/05/16 03:55 36.8 78 16 112/83 95 11/05/16 00:28 99 Room Air 11/04/16 23:37 36.8 78 18 108/79 92 Room Air 11/04/16 22:41 36.8 79 10 108/79 Room Air 11/04/16 22:40 36.8 76 15 81/77 93 Room Air 11/04/16 20:07 99 Room Air 11/04/16 19:42 73 16 94 Room Air 11/04/16 19:12 37.0 80 17 114/77 94 Room Air 11/04/16 18:10 37.0 72 18 137/88 92 Room Air 11/04/16 16:12 36.8 79 14 137/88 99 Room Air 11/04/16 16:00 Room Air 11/04/16 14:02 80 16 100 Nasal Cannula 2.0 11/04/16 12:00 76 18 110/70 100 Nasal Cannula 2.0 11/04/16 12:00 Nasal Cannula 4.0 11/04/16 10:00 82 14 Nasal Cannula 4.0 Laboratory Results: Last 24 Hours Test 11/05/16 05:35 White Blood Count 5.58 K/uL Red Blood Count 3.66 M/uL Hemoglobin 11.5 g/dL Hematocrit 34.2 % Mean Corpuscular Volume 93.4 fL Mean Corpuscular Hemoglobin 31.4 pg Mean Corpuscular Hemoglobin Concent 33.6 g/dl Platelet Count 372 K/uL Mean Platelet Volume 10.2 fL Neutrophils (%) (Auto) 67.5 % Lymphocytes (%) (Auto) 22.6 % Monocytes (%) (Auto) 8.6 % Eosinophils (%) (Auto) 0.5 % Basophils (%) (Auto) 0.4 % Neutrophils # (Auto) 3.77 K/uL Lymphocytes # (Auto) 1.26 K/uL Monocytes # (Auto) 0.48 K/uL Eosinophils # (Auto) 0.03 K/uL Basophils # (Auto) 0.02 K/uL RDW Standard Deviation 43.9 fL RDW Coefficient of Variation 13.0 % Immature Granulocyte % (Auto) 0.4 % Immature Granulocyte # (Auto) 0.02 K/uL Sodium Level 145 mmol/L Potassium Level 4.0 mmol/L Chloride Level 108 mmol/L Carbon Dioxide Level 29 mmol/L Anion Gap 8.0 mmol/L Blood Urea Nitrogen 16 mg/dl Creatinine 0.54 mg/dl Est Creatinine Clear Calc Drug Dose 177.5 ml/min Estimated GFR () 137.0 Estimated GFR (Non- 118.2 BUN/Creatinine Ratio 29.4 Random Glucose 107 mg/dl Calcium Level 9.1 mg/dl Phosphorus Level 3.0 mg/dl Magnesium Level 2.4 mg/dl Total Bilirubin 0.5 mg/dl Aspartate Amino Transf (AST/SGOT) 14 U/L Alanine Aminotransferase (ALT/SGPT) 39 U/L Alkaline Phosphatase 144 U/L Total Protein 7.5 gm/dl Albumin 3.6 gm/dl Globulin 3.9 gm/dl Albumin/Globulin Ratio 0.9 Procalcitonin < 0.05 ng/ml Problem Qualifiers (1) Alcohol withdrawal: Complication of substance-induced condition: with delirium Qualified Codes: F10.231 - Alcohol dependence with withdrawal delirium
--- NOTE | 2016-11-05 10:38 | Progress Note ---
Internal Med Progress Note Date of Service: November 05, 2016. Provider Documentation: SUBJECTIVE: The Patient was seen and examined Remains Pleasantly confused OOB in a chair Communicating with some difficulty Wants to go home OBJECTIVE: Vital Signs-as noted below Exam: General-Pleasantly Confused,generally weak and lethargic Eyes-normal ENT-Normal Neck-supple Lungs-Transmitted sounds and minimal crackles at the bases Heart-Regular,no murmur appreciated Abdomen-Benign,no masses,bowel sound present Extremities-No edema Neuro-drowsy and confused Moving all limbs ,? weaker on left side Lab data as noted below. 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 depressants/sedatives, Benzodiazepines Improving gradually Tapering down Diazepam 1 on 1 observation in ICU DELIRIUM TREMENS -secondary to Alcohol abuse -s/p Extubation -Was on versed and propofol drip -Continue thiamine with higher doses Folic acid and IVF - EEG done showed no seizure activity -Required heavy dose of Benzodiazepines -will try to wean off gradually -Getting Gabapentin and Clonidine -remains confused -will initiate PT/OT starting at bedside and progress as tolerated 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 Appreciate Psychiatry input Taper down Benzodiazepine Seroquel started Remains pleasantly confused but improving PNEUMONIA Likely secondary to Aspiration CXR showed Progression of bibasilar opacities, right greater than left Received Unasyn and Zithromax Has had a bronch done 10/22 Bronchial washings sent for culture and Gram stain, cx growth normal amish Fungal elements, and AFB stain negative D/C Azithromycin on 27 of October Finished the courses of antibiotics Started on Augmentin again for possible aspiration Elevated Liver Enzymes -likely secondary to alcohol abuse -Hepatitis B and C negative -continue monitor liver enzymes-improving THROMBOCYTOPENIA -secondary to Alcohol abuse and Cirrhosis -platelet improved from 35 to 50-->73 today -no pharmacologic anticoagulation initially -normalized ELEVATED CK LEVEL Likely from recurrent trauma Resolved Electrolytes Imbalance Supplement and Monitor TOBACCO ABUSE -Nicotine patch ordered DVT PROPHYLAXIS: SCDs RE: thrombocytopenia Will consider Heparin irf platelet goes >100 Started on Lovenox CODE STATUS: FULL CODE Consultants: TOMATO PULPER OPERATOR Procedures: Bronchoscopy Family 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 by Eyewear Manufacturing Supervisor Vital Signs: Date Time Temp Pulse Resp B/P Pulse Ox O2 Delivery O2 Flow Rate FiO2 11/05/16 10:22 37.2 98 20 116/78 99 11/05/16 08:00 Room Air 11/05/16 08:00 93 16 118/77 93 Room Air 11/05/16 07:39 78 16 92 Room Air 11/05/16 06:03 36.8 103 17 108/68 96 11/05/16 05:02 36.8 103 20 123/69 11/05/16 04:07 99 Room Air 11/05/16 04:01 36.8 16 141/85 11/05/16 03:55 36.8 78 16 112/83 95 11/05/16 00:28 99 Room Air 11/04/16 23:37 36.8 78 18 108/79 92 Room Air 11/04/16 22:41 36.8 79 10 108/79 Room Air 11/04/16 22:40 36.8 76 15 81/77 93 Room Air 11/04/16 20:07 99 Room Air 11/04/16 19:42 73 16 94 Room Air 11/04/16 19:12 37.0 80 17 114/77 94 Room Air 11/04/16 18:10 37.0 72 18 137/88 92 Room Air 11/04/16 16:12 36.8 79 14 137/88 99 Room Air 11/04/16 16:00 Room Air 11/04/16 14:02 80 16 100 Nasal Cannula 2.0 11/04/16 12:00 76 18 110/70 100 Nasal Cannula 2.0 11/04/16 12:00 Nasal Cannula 4.0 Lab Results: Results Past 24 Hours Test 11/05/16 05:35 Range/Units White Blood Count 5.58 4.8-10.8 K/uL Red Blood Count 3.66 4.7-6.1 M/uL Hemoglobin 11.5 14.0-18.0 g/dL Hematocrit 34.2 42-52 % Mean Corpuscular Volume 93.4 80-100 fL Mean Corpuscular Hemoglobin 31.4 25-34 pg Mean Corpuscular Hemoglobin Concent 33.6 32-36 g/dl Platelet Count 372 130-400 K/uL Mean Platelet Volume 10.2 7.4-10.4 fL Neutrophils (%) (Auto) 67.5 % Lymphocytes (%) (Auto) 22.6 % Monocytes (%) (Auto) 8.6 % Eosinophils (%) (Auto) 0.5 % Basophils (%) (Auto) 0.4 % Neutrophils # (Auto) 3.77 1.4-6.5 K/uL Lymphocytes # (Auto) 1.26 1.2-3.4 K/uL Monocytes # (Auto) 0.48 0.11-0.59 K/uL Eosinophils # (Auto) 0.03 0-0.5 K/uL Basophils # (Auto) 0.02 0-0.2 K/uL RDW Standard Deviation 43.9 36.4-46.3 fL RDW Coefficient of Variation 13.0 11.5-14.5 % Immature Granulocyte % (Auto) 0.4 % Immature Granulocyte # (Auto) 0.02 0.00-0.02 K/uL Sodium Level 145 136-145 mmol/L Potassium Level 4.0 3.5-5.1 mmol/L Chloride Level 108 98-107 mmol/L Carbon Dioxide Level 29 21-32 mmol/L Anion Gap 8.0 3-11 mmol/L Blood Urea Nitrogen 16 7-18 mg/dl Creatinine 0.54 0.60-1.40 mg/dl Est Creatinine Clear Calc Drug Dose 177.5 ml/min Estimated GFR () 137.0 Estimated GFR (Non- 118.2 BUN/Creatinine Ratio 29.4 10-20 Random Glucose 107 70-99 mg/dl Calcium Level 9.1 8.5-10.1 mg/dl Phosphorus Level 3.0 2.5-4.9 mg/dl Magnesium Level 2.4 1.8-2.4 mg/dl Total Bilirubin 0.5 0.2-1 mg/dl Aspartate Amino Transf (AST/SGOT) 14 15-37 U/L Alanine Aminotransferase (ALT/SGPT) 39 12-78 U/L Alkaline Phosphatase 144 45-117 U/L Total Protein 7.5 6.4-8.2 gm/dl Albumin 3.6 3.4-5.0 gm/dl Globulin 3.9 2.5-4.0 gm/dl Albumin/Globulin Ratio 0.9 0.9-2 Procalcitonin < 0.05 0-0.5 ng/ml
--- NOTE | 2016-11-05 17:58 | DIAGNOSTIC IMAGING REPORT ---
KUB HISTORY: Feeding tube placement. COMPARISON: KUB 11/03/2016. FINDINGS: The bowel gas pattern is unremarkable. There are no dilated loops of small bowel to suggest an obstruction. No renal calculi. No ureteral calculi. No pneumoperitoneum or pneumatosis. Feeding tube is seen within the gastric antrum. IMPRESSION: Feeding tube located within the gastric antrum. Electronically signed by: Dalton Adler M.D. 11/05/2016 5:57 PM Dictated Date/Time: 11/05/2016 5:56 PM
[2016-11-06] VITALS (19 sets, daily range): BP systolic 99–156; BP diastolic 54–102; PULSE 69–91; TEMP 36.5–36.9; O2SAT 91–99
[2016-11-06] MEDS: VALPROIC ACID SYRUP 250 MG/5 ML PO SCH ×3 (05:38→22:04)
[2016-11-06 05:46] LABS: BASO % 0.2 %; BASO ABS # 0.01 K/uL (0-0.2); COMPLETE YES; EOS % 0.6 %; HEMATOCRIT 33.8 % (42-52); IG% 0.2 %; LYMPH % 22.7 %; LYMPH ABS # 1.06 K/uL (1.2-3.4); MEAN CELL VOLUME 94.9 fL (80-100); MEAN CORPUSCULAR HEMOGLOBIN 31.2 pg (25-34); MEAN CORPUSCULAR HGB CONC 32.8 g/dl (32-36); MONO % 9.2 %; NEUT % 67.1 %; PLATELET COUNT 339 K/uL (130-400); RED BLOOD COUNT 3.56 M/uL (4.7-6.1); WHITE BLOOD COUNT 4.66 K/uL (4.8-10.8)
[2016-11-06 06:03] LABS: BUN/CREATININE RATIO 28.6 (10-20); CREATININE 0.53 mg/dl (0.60-1.40); MAGNESIUM 2.5 mg/dl (1.8-2.4); POTASSIUM 4.1 mmol/L (3.5-5.1)
[2016-11-06 06:05] LABS: ALB/GLOB RATIO 0.8 (0.9-2); PHOSPHORUS 3.4 mg/dl (2.5-4.9)
[2016-11-06] MEDS: DIAZEPAM 5MG TAB PO SCH ×4 (07:20→20:37)
[2016-11-06] MEDS: GABAPENTIN 250 MG/5 ML 470 ML BTL NG SCH ×4 (07:22→20:38)
[2016-11-06] MEDS: DOCUSATE SODIUM 100 MG/10 ML UDC PO SCH ×2 (07:22→20:37)
[2016-11-06] MEDS: POTASSIUM CHLORIDE 20 MEQ/15 ML UDC NG SCH (07:23)
[2016-11-06] MEDS: CHOLECALCIFEROL 1000 INTER.UNIT TAB PO SCH (07:23)
[2016-11-06] MEDS: ENOXAPARIN 40 MG/0.4 ML SYR SQ SCH (07:23)
[2016-11-06] MEDS: MULTIVITAMINS W/MINERALS 15ML UDP PO SCH (07:24)
[2016-11-06] MEDS: TRIAMCINOLONE ACET 0.025% CR 15 GM TUBE EXT SCH ×2 (07:24→20:39)
[2016-11-06] MEDS: SENNA 17.6 MG/10 ML UDP PO SCH (07:24)
[2016-11-06] MEDS: POLYETHYLENE (MIRALAX) 17 GM PACK PO SCH (07:24)
[2016-11-06] MEDS: CLONIDINE HCL 0.1 MG TAB PO SCH ×4 (07:24→20:38)
[2016-11-06] MEDS: THIAMINE HCL INJ 250 MG in SODIUM CHLORIDE 0.9% 100ML 100 ML IV SCH (07:27)
[2016-11-06] MEDS: ACETYLCYSTEINE 20% INHAL SOLN ***DISPENSED BY RESP. INH SCH ×2 (07:45→19:12)
[2016-11-06] MEDS: ALBUTEROL 0.083% NEBU SOLN 3 ML VIAL INH SCH ×2 (07:45→19:12)
--- NOTE | 2016-11-06 10:50 | Progress Note ---
Internal Med Progress Note Date of Service: November 06, 2016. Provider Documentation: SUBJECTIVE: The Patient was seen and examined Remains Pleasantly confused OOB in a chair Very hungry-wants to eat Occasional agitation-requiring 1 on 1 sitter OBJECTIVE: Vital Signs-as noted below Exam: General-Pleasantly Confused,generally weak and lethargic Eyes-normal ENT-Normal Neck-supple Lungs-Transmitted sounds and minimal crackles at the bases Heart-Regular,no murmur appreciated Abdomen-Benign,no masses,bowel sound present Extremities-No edema Neuro-drowsy and confused Moving all limbs Lab data as noted below. 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 ,use of AUTOMOTIVE LOT ATTENDANT depressants/sedatives, Benzodiazepines Tapering down Diazepam,still getting Diazepam 30mg QID Occasional agitation requiring 1 on 1 observation in ICU Remains confused DELIRIUM TREMENS -secondary to Alcohol abuse -s/p Extubation -Was on versed and propofol drip -Continue thiamine with higher doses Folic acid and IVF - EEG done showed no seizure activity -Required heavy dose of Benzodiazepines -will try to wean off gradually -Getting Gabapentin and Clonidine -remains confused - PT/OT started at bedside and progress as tolerated 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 Appreciate Psychiatry input Taper down Benzodiazepine -will be a slow process Seroquel started Remains pleasantly confused but improving very slowly PNEUMONIA Likely secondary to Aspiration CXR showed Progression of bibasilar opacities, right greater than left Received Unasyn and Zithromax Has had a bronch done 10/22 Bronchial washings sent for culture and Gram stain, cx growth normal amish Fungal elements, and AFB stain negative D/C Azithromycin on 27 of October Finished the courses of antibiotics Started on Augmentin again for possible aspiration-discontinued Elevated Liver Enzymes -likely secondary to alcohol abuse -Hepatitis B and C negative -continue monitor liver enzymes-improving Nutrition Getting NGT feeding Ongoing Swallowing evaluation THROMBOCYTOPENIA -secondary to Alcohol abuse and Cirrhosis -platelet improved from 35 to 50-->73 today -no pharmacologic anticoagulation initially -normalized ELEVATED CK LEVEL Likely from recurrent trauma Resolved Electrolytes Imbalance Supplement and Monitor TOBACCO ABUSE -Nicotine patch ordered DVT PROPHYLAXIS: SCDs RE: thrombocytopenia Will consider Heparin irf platelet goes >100 Started on Lovenox CODE STATUS: FULL CODE Consultants: RADIOLOGY SPECIAL PROCEDURE TECH Procedures: Bronchoscopy Family 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 by Music Composition Teacher Vital Signs: Date Time Temp Pulse Resp B/P Pulse Ox O2 Delivery O2 Flow Rate FiO2 11/06/16 10:15 91 18 104/74 99 Room Air 11/06/16 08:00 Room Air 11/06/16 08:00 85 16 116/81 Room Air 11/06/16 07:25 90 20 91 Room Air 11/06/16 05:04 79 16 116/67 Room Air 11/06/16 05:03 84 14 99/74 96 Room Air 11/06/16 04:01 81 17 126/80 Room Air 11/06/16 04:00 99 Room Air 11/06/16 03:05 73 20 112/87 Room Air 11/06/16 02:02 36.9 80 13 107/83 Room Air 98.0 11/06/16 01:07 86 156/102 Room Air 11/06/16 00:24 99 Room Air 11/06/16 00:07 36.9 82 18 111/54 Room Air 97.0 11/05/16 23:04 98 17 152/116 Room Air 11/05/16 22:07 78 20 120/89 11/05/16 20:31 99 Room Air 11/05/16 19:34 72 20 93 Room Air 11/05/16 19:33 36.9 70 16 114/75 Room Air 11/05/16 18:16 75 14 Room Air 11/05/16 16:06 89 24 Room Air 11/05/16 16:00 Room Air 11/05/16 14:38 36.9 76 20 124/79 95 11/05/16 12:11 88 88 Room Air 11/05/16 12:00 Room Air Lab Results: Results Past 24 Hours Test 11/06/16 05:35 Range/Units White Blood Count 4.66 4.8-10.8 K/uL Red Blood Count 3.56 4.7-6.1 M/uL Hemoglobin 11.1 14.0-18.0 g/dL Hematocrit 33.8 42-52 % Mean Corpuscular Volume 94.9 80-100 fL Mean Corpuscular Hemoglobin 31.2 25-34 pg Mean Corpuscular Hemoglobin Concent 32.8 32-36 g/dl Platelet Count 339 130-400 K/uL Mean Platelet Volume 10.0 7.4-10.4 fL Neutrophils (%) (Auto) 67.1 % Lymphocytes (%) (Auto) 22.7 % Monocytes (%) (Auto) 9.2 % Eosinophils (%) (Auto) 0.6 % Basophils (%) (Auto) 0.2 % Neutrophils # (Auto) 3.12 1.4-6.5 K/uL Lymphocytes # (Auto) 1.06 1.2-3.4 K/uL Monocytes # (Auto) 0.43 0.11-0.59 K/uL Eosinophils # (Auto) 0.03 0-0.5 K/uL Basophils # (Auto) 0.01 0-0.2 K/uL RDW Standard Deviation 45.3 36.4-46.3 fL RDW Coefficient of Variation 13.2 11.5-14.5 % Immature Granulocyte % (Auto) 0.2 % Immature Granulocyte # (Auto) 0.01 0.00-0.02 K/uL Sodium Level 145 136-145 mmol/L Potassium Level 4.1 3.5-5.1 mmol/L Chloride Level 110 98-107 mmol/L Carbon Dioxide Level 32 21-32 mmol/L Anion Gap 3.0 3-11 mmol/L Blood Urea Nitrogen 15 7-18 mg/dl Creatinine 0.53 0.60-1.40 mg/dl Est Creatinine Clear Calc Drug Dose 180.9 ml/min Estimated GFR () 138.1 Estimated GFR (Non- 119.1 BUN/Creatinine Ratio 28.6 10-20 Random Glucose 99 70-99 mg/dl Calcium Level 9.0 8.5-10.1 mg/dl Phosphorus Level 3.4 2.5-4.9 mg/dl Magnesium Level 2.5 1.8-2.4 mg/dl Total Bilirubin 0.4 0.2-1 mg/dl Aspartate Amino Transf (AST/SGOT) 14 15-37 U/L Alanine Aminotransferase (ALT/SGPT) 37 12-78 U/L Alkaline Phosphatase 136 45-117 U/L Total Protein 7.4 6.4-8.2 gm/dl Albumin 3.3 3.4-5.0 gm/dl Globulin 4.1 2.5-4.0 gm/dl Albumin/Globulin Ratio 0.8 0.9-2 Lipase 282 73-393 U/L Microbiology Results 11/06/16 MRSA DNA Surveillance Screen - Final, Complete Specimen Negative for MRSA by DNA Probe
--- NOTE | 2016-11-06 12:08 | Critical Care Progress Note ---
Critical Care Progress Note Date of Service November 06, 2016. ICU Day ICU Day Number: [address] 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 At the bedside this am, the patient is not oriented to place person or time but is alert and awake. He has visual hallucinations and inappropriate affect. He failed swallow evaluation and continues to be fed through an NG tube. Objective General Appearance: calm, comfortable Head: normocephalic, atraumatic Neck: trachea midline, no stridor, no JVD Respiratory: clear to auscultation, no added sounds or wheezing Cardiovascular: normal S1S2, no added sounds or murmurs Abdomen: non tender, normal bowel sounds, no rebound Upper Extremities: other (multiple ecchymoses of varying age) Lower Extremities: no edema, no deformity, other (multiple ecchymoses of varying age), no calf tenderness Neuro: Moves all 4 extremities when lightening sedation, Alert to person only, CAM ICU positive Current SOFA Score SOFA Score Response (Comments) Value SaO2 / FIO2 221 - 301 1 Platelets (x10) > 150 0 Bilirubin (mg/dL) < 1.2 0 [place] Coma Score 13 - 14 1 Level of Hypotension No Hypotension 0 Creatinine (mg/dL) < 1.2 0 Total 2 Previous SOFA Scores 2 on 11/05/2016 Assessment & Plan (1) History of traumatic brain injury (2) Alcohol withdrawal (3) Multiple contusions (4) Tobacco abuse (5) Alcohol abuse 1) History of traumatic brain injury (2) Alcohol withdrawal (3) Multiple contusions (4) Tobacco abuse (5) Alcohol abuse (6) Wernicke-Korsakoff syndrome (7) Malnutrition related to chronic disease (9) anemia likely secondary to malnutrition NEUROLOGICAL - GCS: 14 Eyes: 4; Verbal: 4; Motor 6 Depakote: 675 milligrams every 8 hours IV which is total daily dose of 25 mg/kg (Depakote level LII low and normal, we will order Depakote level for morning of November 07) Strict sleep hygiene decreased Valium dosing interval to 25 mg from 30 mg every 6 hours (20mg daily dose reduction) Wernicke's Korsakoff's Syndrome - 2/2 EtOH abuse and nutrient deficiency - Escalate Thiamine repletion Currently on Thiamin 250 mg x 5 days. today he received dose #4 - Psych consulted for protracted agitated delirium; recommendations appreciated - Needs assessment for inpatient rehabilitation when medically stable will repeat NH3 level. CARDIOVASCULAR MAP mostly 73-95 with some increased levels in the coach cleaner hours to 120 (? GEOVANNY) - HR 60-70, NSR - Vasopressor support: None Hypertension -decrease Clonidine to 0.3 mg from 0.4 QID (also augments withdrawal) Prolonged QTc RESPIRATORY - RR: 16-18 SpO2: 92% on room air - Albuterol nebulizers scaled back to PRN only Acute Respiratory Distress used to be in Acute Hypoxic Respiratory Failure likely due to sedatives but now is saturating well and is extubated - CT PE negative - Assist with sputum expectoration Chest vest, rotating bed vibration mode Mucomyst/albuterol We'll continue with chest physiotherapy and nebulizers. He seems to have atelectasis and small effusions bilaterally. GASTROINTESTINAL - Diet: Continue Tube feeds. He failed Swallow evaluation - Bowel regimen: Colace, Senna, Dulcolax Chronic Malnutrition - 2/2 chronic alcohol abuse, Continue Thiamine, Continue Folate 1 mg qAM, Continue Multivitamin daily check iron level and supplement accordingly RENAL//ENDOCRINE - Fluid Balance patient euvolemic K, Mg and P within normal. Will FU and replete lytes endocrine - BS-110, stable; no indications for insulin - Patient has not been hyperglycemic nor hypoglycemic will change blood glucose checks to when necessary NFECTIOUS DISEASES - Tmax: Afebrile WBC: <5 Procalcitonin negative no focus of infection will monitor - DVT Prophylaxis: Lovenox 40 mg qAM LINES/IV ACCESS - 18 G left forearm - 20 G right forearm CODE STATUS - Full Code DISPOSITION - OT/PT: Ordered - ICU due extreme intermittent agitation I spent 45 minutes of CC time managing the patient Consults & Procedures Consultants: Mental health Procedures: Endotracheal intubation 10/20/2016 Bronchoscopy 10/22/2016 CT PE negative on 11/03/2016 Data Medications: Current Inpatient Medications Medications (Trade) Dose Ordered Sig/Rica Route Start Time Stop Time Status Last Admin Dose Admin Acetaminophen (Tylenol Tab) 650 mg Q4H PRN PO 10/20/16 16:00 11/19/16 15:59 Ondansetron HCl (Zofran Inj) 4 mg Q6H PRN IV 10/20/16 16:00 11/19/16 15:59 10/20/16 19:31 4 MG Lorazepam (Ativan Inj) PRN Dosing -Active Protocol Q1H PRN IV 10/20/16 16:00 11/19/16 15:59 Future Hold 11/02/16 05:54 2 MG Multivitamins Therapeutic (Cerovite Liquid) 15 ml QAM PO 10/21/16 09:00 11/20/16 08:59 11/06/16 07:24 15 ML Folic Acid (Folvite Tab) 1 mg QAM PO 10/21/16 09:00 11/20/16 08:59 11/06/16 07:23 1 MG Polyethylene (Miralax Powder Packet) 17 gm QAM PO 10/23/16 09:00 11/22/16 08:59 11/06/16 07:24 17 GM Docusate Sodium (coLACE SYRUP) 100 mg BID PO 10/23/16 09:00 11/22/16 08:59 11/06/16 07:22 100 MG Heparin Sodium (Porcine) (Heparin 10 Unit/ ml 5 ml Flush) 5 ml PRN PRN FLUSH 10/24/16 01:45 11/23/16 01:44 10/31/16 13:16 10 ML Enoxaparin Sodium (Lovenox Inj) 40 mg QAM SQ 10/25/16 09:00 11/24/16 08:59 11/06/16 07:23 40 MG Bisacodyl (Dulcolax Supp) 10 mg DAILY PRN IA 10/27/16 09:00 11/26/16 08:59 10/29/16 07:16 10 MG Cholecalciferol (Vitamin D Tab) 2,000 inter.unit DAILY PO 10/27/16 14:30 11/26/16 14:29 11/06/16 07:23 2,000 INTER.UNIT Senna (Senokot Syrup) 17.6 mg QAM PO 10/29/16 09:00 11/28/16 08:59 11/06/16 07:24 17.6 MG Triamcinolone Acetonide (Kenalog 0.025% Crm) 1 appln BID EXT 10/29/16 21:00 11/28/16 20:59 11/06/16 07:24 1 APPLN Enteral Nutritional Formula (Peptamen Intense VHP) 1,000 ml UD NG 10/29/16 16:15 11/04/16 16:54 1,000 ML Albuterol/ Ipratropium (Duoneb) 3 ml Q6H PRN INH 10/30/16 10:00 11/29/16 09:59 Magnesium Oxide 400 mg 400 mg DAILY PO 11/01/16 09:00 12/01/16 08:59 Future Hold 11/02/16 07:50 400 MG Thiamine HCl/ Sodium Chloride (Vitamin B-1 Inj/ Nss 100ml) 102.5 ml @ 210 mls/hr DAILY IV 11/03/16 09:00 11/07/16 09:30 11/06/16 07:27 210 MLS/HR Gabapentin (Neurontin) 600 mg QID NG 11/02/16 13:00 12/02/16 12:59 11/06/16 07:22 600 MG Potassium Chloride (Lakeisha Ciel Elix) 60 meq QAM NG 11/03/16 09:49 12/03/16 09:48 11/06/16 07:23 60 MEQ Ioversol (Optiray 320) 125 ml UD PRN IV 11/03/16 10:00 11/07/16 09:59 Glycopyrrolate (Robinul Inj) 0.1 mg Q4H PRN IV 11/03/16 11:45 12/03/16 11:44 11/03/16 21:30 0.1 MG Clonidine HCl (Catapres Tab) 0.4 mg QID PO 11/03/16 17:00 12/03/16 16:59 11/06/16 07:24 0.4 MG Valproic Acid (Depakene Syrup) 675 mg Q8H PO 11/04/16 14:00 12/04/16 13:59 11/06/16 05:38 675 MG Albuterol Sulfate (Ventolin 0.083% 2.5MG/3ML Neb) 2.5 mg BIDR INH 11/04/16 09:00 12/04/16 08:59 11/06/16 07:45 2.5 MG Acetylcysteine (Mucomyst 20% Inh Soln) 5 ml BIDR INH 11/04/16 09:00 12/04/16 08:59 11/06/16 07:45 5 ML Diazepam (Valium Tab) 30 mg QID PO 11/05/16 09:00 12/05/16 08:59 11/06/16 07:20 30 MG I & O: 24-Hour Column 11/06/16 08:00 Intake Total 978 ml Output Total 1150 ml Balance -172 ml Vital Signs: Date Time Temp Pulse Resp B/P Pulse Ox O2 Delivery O2 Flow Rate FiO2 11/06/16 10:15 91 18 104/74 99 Room Air 11/06/16 08:00 Room Air 11/06/16 08:00 85 16 116/81 Room Air 11/06/16 07:25 90 20 91 Room Air 11/06/16 05:04 79 16 116/67 Room Air 11/06/16 05:03 84 14 99/74 96 Room Air 11/06/16 04:01 81 17 126/80 Room Air 11/06/16 04:00 99 Room Air 11/06/16 03:05 73 20 112/87 Room Air 11/06/16 02:02 36.9 80 13 107/83 Room Air 98.0 11/06/16 01:07 86 156/102 Room Air 11/06/16 00:24 99 Room Air 11/06/16 00:07 36.9 82 18 111/54 Room Air 97.0 11/05/16 23:04 98 17 152/116 Room Air 11/05/16 22:07 78 20 120/89 11/05/16 20:31 99 Room Air 11/05/16 19:34 72 20 93 Room Air 11/05/16 19:33 36.9 70 16 114/75 Room Air 11/05/16 18:16 75 14 Room Air 11/05/16 16:06 89 24 Room Air 11/05/16 16:00 Room Air 11/05/16 14:38 36.9 76 20 124/79 95 11/05/16 12:11 88 88 Room Air 11/05/16 12:00 Room Air Laboratory Results: Last 24 Hours Test 11/06/16 05:35 White Blood Count 4.66 K/uL Red Blood Count 3.56 M/uL Hemoglobin 11.1 g/dL Hematocrit 33.8 % Mean Corpuscular Volume 94.9 fL Mean Corpuscular Hemoglobin 31.2 pg Mean Corpuscular Hemoglobin Concent 32.8 g/dl Platelet Count 339 K/uL Mean Platelet Volume 10.0 fL Neutrophils (%) (Auto) 67.1 % Lymphocytes (%) (Auto) 22.7 % Monocytes (%) (Auto) 9.2 % Eosinophils (%) (Auto) 0.6 % Basophils (%) (Auto) 0.2 % Neutrophils # (Auto) 3.12 K/uL Lymphocytes # (Auto) 1.06 K/uL Monocytes # (Auto) 0.43 K/uL Eosinophils # (Auto) 0.03 K/uL Basophils # (Auto) 0.01 K/uL RDW Standard Deviation 45.3 fL RDW Coefficient of Variation 13.2 % Immature Granulocyte % (Auto) 0.2 % Immature Granulocyte # (Auto) 0.01 K/uL Sodium Level 145 mmol/L Potassium Level 4.1 mmol/L Chloride Level 110 mmol/L Carbon Dioxide Level 32 mmol/L Anion Gap 3.0 mmol/L Blood Urea Nitrogen 15 mg/dl Creatinine 0.53 mg/dl Est Creatinine Clear Calc Drug Dose 180.9 ml/min Estimated GFR () 138.1 Estimated GFR (Non- 119.1 BUN/Creatinine Ratio 28.6 Random Glucose 99 mg/dl Calcium Level 9.0 mg/dl Phosphorus Level 3.4 mg/dl Magnesium Level 2.5 mg/dl Total Bilirubin 0.4 mg/dl Aspartate Amino Transf (AST/SGOT) 14 U/L Alanine Aminotransferase (ALT/SGPT) 37 U/L Alkaline Phosphatase 136 U/L Total Protein 7.4 gm/dl Albumin 3.3 gm/dl Globulin 4.1 gm/dl Albumin/Globulin Ratio 0.8 Lipase 282 U/L Problem Qualifiers (1) Alcohol withdrawal: Complication of substance-induced condition: with delirium Qualified Codes: F10.231 - Alcohol dependence with withdrawal delirium
[2016-11-06] MEDS: PEPTAMEN INTENSE VHP 1000ML BAG NG SCH (17:48)
[2016-11-07] VITALS (17 sets, daily range): BP systolic 85–153; BP diastolic 49–97; PULSE 70–93; TEMP 36.5–36.9; O2SAT 93–98
[2016-11-07] MEDS: VALPROIC ACID SYRUP 250 MG/5 ML PO SCH ×2 (05:46→13:27)
[2016-11-07 06:02] LABS: BASO % 0.3 %; BASO ABS # 0.01 K/uL (0-0.2); COMPLETE YES; EOS % 0.5 %; HEMATOCRIT 37.6 % (42-52); IG% 0.3 %; LYMPH % 27.9 %; LYMPH ABS # 1.07 K/uL (1.2-3.4); MEAN CORPUSCULAR HEMOGLOBIN 29.8 pg (25-34); MEAN CORPUSCULAR HGB CONC 31.6 g/dl (32-36); MEAN PLATELET VOLUME 9.9 fL (7.4-10.4); MONO % 10.7 %; NEUT % 60.3 %; PLATELET COUNT 361 K/uL (130-400); WHITE BLOOD COUNT 3.83 K/uL (4.8-10.8)
[2016-11-07 06:30] LABS: BUN/CREATININE RATIO 27.3 (10-20); CREATININE 0.51 mg/dl (0.60-1.40); MAGNESIUM 2.4 mg/dl (1.8-2.4); PHOSPHORUS 3.8 mg/dl (2.5-4.9); POTASSIUM 3.8 mmol/L (3.5-5.1)
[2016-11-07 06:38] LABS: FERRITIN 480.1 ng/ml (8.0-388.0)
[2016-11-07] MEDS: ALBUTEROL 0.083% NEBU SOLN 3 ML VIAL INH SCH ×2 (07:12→20:00)
[2016-11-07] MEDS: ACETYLCYSTEINE 20% INHAL SOLN ***DISPENSED BY RESP. INH SCH ×2 (07:12→20:00)
[2016-11-07] MEDS: POLYETHYLENE (MIRALAX) 17 GM PACK PO SCH (07:46)
[2016-11-07] MEDS: MULTIVITAMINS W/MINERALS 15ML UDP PO SCH (07:46)
[2016-11-07] MEDS: CHOLECALCIFEROL 1000 INTER.UNIT TAB PO SCH (07:46)
[2016-11-07] MEDS: CLONIDINE HCL 0.1 MG TAB PO SCH ×4 (07:49→20:31)
[2016-11-07] MEDS: POTASSIUM CHLORIDE 20 MEQ/15 ML UDC NG SCH (07:49)
[2016-11-07] MEDS: DOCUSATE SODIUM 100 MG/10 ML UDC PO SCH ×2 (07:50→20:31)
[2016-11-07] MEDS: ENOXAPARIN 40 MG/0.4 ML SYR SQ SCH (07:50)
[2016-11-07] MEDS: SENNA 17.6 MG/10 ML UDP PO SCH (07:50)
[2016-11-07] MEDS: TRIAMCINOLONE ACET 0.025% CR 15 GM TUBE EXT SCH ×2 (07:59→20:41)
[2016-11-07] MEDS: DIAZEPAM 5MG TAB PO SCH ×4 (07:59→20:31)
[2016-11-07] MEDS: GABAPENTIN 250 MG/5 ML 470 ML BTL NG SCH ×2 (08:49→13:26)
[2016-11-07] MEDS: THIAMINE HCL INJ 250 MG in SODIUM CHLORIDE 0.9% 100ML 100 ML IV SCH (09:59)
--- NOTE | 2016-11-07 10:59 | Critical Care Progress Note ---
Critical Care Progress Note Date of Service November 07, 2016. Attending Dr. Clancy Subjective patient is less agitated this am. he still was agitated yesterday. Has impulsive verbal abuse on his sitter. Says he feels better and he wants to go home. He is still having poor insight to his condition and does not know the place or date but is aware he is in a hospital and I am the physician who saw him yesterday. He is in the Korsakoff psychosis spectrum and his prognosis unfortunately is poor. His iron level and ammonia level were within normal and i will be tapering the valium and the clonidine further Objective General Appearance: calm, comfortable Head: normocephalic,excoriation on the nose and face Neck: trachea midline, no stridor, no JVD Respiratory: clear to auscultation, no added sounds or wheezing Cardiovascular: normal S1S2, no added sounds or murmurs Abdomen: non tender, normal bowel sounds, no rebound Upper Extremities: other (multiple ecchymoses of varying age) Lower Extremities: no edema, no deformity, other (multiple ecchymoses of varying age), no calf tenderness Neuro: Moves all 4 extremities when lightening sedation, Alert to person only, CAM ICU positive Current SOFA Score SOFA Score Response (Comments) Value SaO2 / FIO2 221 - 301 1 Platelets (x10) > 150 0 Bilirubin (mg/dL) < 1.2 0 [place] Coma Score 13 - 14 1 Level of Hypotension No Hypotension 0 Creatinine (mg/dL) < 1.2 0 Total 2 Previous SOFA Scores 2 on 11/06/2016 Assessment & Plan (1) History of traumatic brain injury (2) Alcohol withdrawal (3) Multiple contusions (4) Tobacco abuse (5) Alcohol abuse Assessment & Plan (1) History of traumatic brain injury (2) Alcohol withdrawal (3) Multiple contusions (4) Tobacco abuse (5) Alcohol abuse 1) History of traumatic brain injury (2) Alcohol withdrawal (3) Multiple contusions (4) Tobacco abuse (5) Alcohol abuse (6) Wernicke-Korsakoff syndrome (7) Malnutrition related to chronic disease (9) anemia likely secondary to malnutrition NEUROLOGICAL - GCS: 14 Eyes: 4; Verbal: 4; Motor 6 Depakote: 675 milligrams every 8 hours IV which is total daily dose of 25 mg/kg (Depakote level LII low and normal, DEpakote level within normal at 72 Strict sleep hygiene decrease Valium dosing interval to 20 mg from 25 mg every 6 hours (20mg daily dose reduction) Wernicke's Korsakoff's Syndrome - 2/2 EtOH abuse and nutrient deficiency - Thiamine repletion completed Thiamin 250 mg x 5 days. Will go back to 100 mg daily - Psych consulted for protracted agitated delirium; recommendations appreciated - Needs assessment for inpatient rehabilitation when medically stable NH3 level within normal. CARDIOVASCULAR MAP mostly 73-95 with some increased levels in the outer diameter grinder tool hours to 103 (? GEOVANNY) better than yesterday - HR 60-85, NSR - Vasopressor support: None Hypertension -decrease Clonidine to 0.2 mg from 0.4 QID (also augments withdrawal) Prolonged QTc RESPIRATORY - RR: 16-18 SpO2: 92% on room air - Albuterol nebulizers scaled back to PRN only Acute Respiratory Distress used to be in Acute Hypoxic Respiratory Failure likely due to sedatives but now is saturating well and is extubated - CT PE negative - Assist with sputum expectoration Chest vest, rotating bed vibration mode Mucomyst/albuterol We'll continue with chest physiotherapy and nebulizers. He seems to have atelectasis and small effusions bilaterally. GASTROINTESTINAL - Diet: Continue Tube feeds. He failed Swallow evaluation - Bowel regimen: Colace, Senna, Dulcolax Chronic Malnutrition - 2/2 chronic alcohol abuse, Continue Thiamine, Continue Folate 1 mg qAM, Continue Multivitamin daily iron levels within normal likely this is due to chronic illness RENAL//ENDOCRINE - Fluid Balance patient euvolemic K, Mg and P within normal. Will FU and replete lytes endocrine - BS-110, stable; no indications for insulin - Patient has not been hyperglycemic nor hypoglycemic will change blood glucose checks to when necessary NFECTIOUS DISEASES - Tmax: Afebrile WBC: <5 Procalcitonin negative no focus of infection will monitor - DVT Prophylaxis: Lovenox 40 mg qAM LINES/IV ACCESS peripheral IV CODE STATUS - Full Code DISPOSITION - OT/PT: Ordered - ICU due extreme intermittent agitation. He will need transfer to a skilled facility soon I spent 40 minutes of CC time managing the patient Consults & Procedures Consultants: Mental health Procedures: Endotracheal intubation 10/20/2016 Bronchoscopy 10/22/2016 CT PE negative on 11/03/2016 Consults & Procedures Consultants: Mental health Procedures: Endotracheal intubation 10/20/2016 Bronchoscopy 10/22/2016 CT PE negative on 11/03/2016 Data Medications: Current Inpatient Medications Medications (Trade) Dose Ordered Sig/Rica Route Start Time Stop Time Status Last Admin Dose Admin Acetaminophen (Tylenol Tab) 650 mg Q4H PRN PO 10/20/16 16:00 11/19/16 15:59 Ondansetron HCl (Zofran Inj) 4 mg Q6H PRN IV 10/20/16 16:00 11/19/16 15:59 10/20/16 19:31 4 MG Lorazepam (Ativan Inj) PRN Dosing -Active Protocol Q1H PRN IV 10/20/16 16:00 11/19/16 15:59 Future Hold 11/02/16 05:54 2 MG Multivitamins Therapeutic (Cerovite Liquid) 15 ml QAM PO 10/21/16 09:00 11/20/16 08:59 11/07/16 07:46 15 ML Folic Acid (Folvite Tab) 1 mg QAM PO 10/21/16 09:00 11/20/16 08:59 11/07/16 07:46 1 MG Polyethylene (Miralax Powder Packet) 17 gm QAM PO 10/23/16 09:00 11/22/16 08:59 11/07/16 07:46 17 GM Docusate Sodium (coLACE SYRUP) 100 mg BID PO 10/23/16 09:00 11/22/16 08:59 11/07/16 07:50 100 MG Heparin Sodium (Porcine) (Heparin 10 Unit/ ml 5 ml Flush) 5 ml PRN PRN FLUSH 10/24/16 01:45 11/23/16 01:44 10/31/16 13:16 10 ML Enoxaparin Sodium (Lovenox Inj) 40 mg QAM SQ 10/25/16 09:00 11/24/16 08:59 11/07/16 07:50 40 MG Bisacodyl (Dulcolax Supp) 10 mg DAILY PRN [place] 10/27/16 09:00 11/26/16 08:59 10/29/16 07:16 10 MG Cholecalciferol (Vitamin D Tab) 2,000 inter.unit DAILY PO 10/27/16 14:30 11/26/16 14:29 11/07/16 07:46 2,000 INTER.UNIT Senna (Senokot Syrup) 17.6 mg QAM PO 10/29/16 09:00 11/28/16 08:59 11/07/16 07:50 17.6 MG Triamcinolone Acetonide (Kenalog 0.025% Crm) 1 appln BID EXT 10/29/16 21:00 11/28/16 20:59 11/07/16 07:59 1 APPLN Enteral Nutritional Formula (Peptamen Intense VHP) 1,000 ml UD NG 10/29/16 16:15 11/22/16 16:14 11/06/16 17:48 1,000 ML Albuterol/ Ipratropium (Duoneb) 3 ml Q6H PRN INH 10/30/16 10:00 11/29/16 09:59 Magnesium Oxide (Mag-Ox Tab) 400 mg DAILY PO 11/01/16 09:00 12/01/16 08:59 Future Hold 11/02/16 07:50 400 MG Gabapentin (Neurontin) 600 mg QID NG 11/02/16 13:00 12/02/16 12:59 11/07/16 08:49 600 MG Potassium Chloride (Lakeisha Ciel Elix) 60 meq QAM NG 11/03/16 09:49 12/03/16 09:48 11/07/16 07:49 60 MEQ Valproic Acid (Depakene Syrup) 675 mg Q8H PO 11/04/16 14:00 12/04/16 13:59 11/07/16 05:46 675 MG Albuterol Sulfate (Ventolin 0.083% 2.5MG/3ML Neb) 2.5 mg BIDR INH 11/04/16 09:00 12/04/16 08:59 11/07/16 07:12 2.5 MG Acetylcysteine (Mucomyst 20% Inh Soln) 5 ml BIDR INH 11/04/16 09:00 12/04/16 08:59 11/07/16 07:12 5 ML Clonidine HCl (Catapres Tab) 0.3 mg QID PO 11/06/16 13:00 12/06/16 12:59 11/07/16 07:49 0.3 MG Diazepam (Valium Tab) 25 mg QID PO 11/06/16 13:00 12/06/16 12:59 11/07/16 07:59 25 MG I & O: 24-Hour Column 11/07/16 08:00 Intake Total 1584 ml Balance 1584 ml Vital Signs: Date Time Temp Pulse Resp B/P Pulse Ox O2 Delivery O2 Flow Rate FiO2 11/07/16 10:00 36.9 76 16 138/89 96 Room Air 11/07/16 08:00 36.9 70 16 153/94 96 Room Air 11/07/16 08:00 Room Air 11/07/16 07:12 79 20 95 Room Air 11/07/16 06:00 78 18 118/84 97 Room Air 11/07/16 04:00 Room Air 11/07/16 04:00 36.5 74 15 117/79 97 Room Air 11/07/16 02:00 71 20 11/07/16 00:05 36.5 79 16 120/79 98 Room Air 11/06/16 23:59 Room Air 11/06/16 22:11 36.5 74 14 110/66 99 Room Air 11/06/16 20:32 36.6 83 14 120/84 98 Room Air 11/06/16 20:00 Room Air 11/06/16 19:13 86 20 94 Room Air 11/06/16 18:13 69 18 Room Air 11/06/16 16:00 Room Air 11/06/16 16:00 80 18 153/89 Room Air 11/06/16 14:06 86 16 123/83 Room Air 11/06/16 12:00 89 18 110/84 99 Room Air 11/06/16 12:00 Room Air Laboratory Results: Last 24 Hours Test 11/07/16 05:44 White Blood Count 3.83 K/uL Red Blood Count 4.00 M/uL Hemoglobin 11.9 g/dL Hematocrit 37.6 % Mean Corpuscular Volume 94.0 fL Mean Corpuscular Hemoglobin 29.8 pg Mean Corpuscular Hemoglobin Concent 31.6 g/dl Platelet Count 361 K/uL Mean Platelet Volume 9.9 fL Neutrophils (%) (Auto) 60.3 % Lymphocytes (%) (Auto) 27.9 % Monocytes (%) (Auto) 10.7 % Eosinophils (%) (Auto) 0.5 % Basophils (%) (Auto) 0.3 % Neutrophils # (Auto) 2.31 K/uL Lymphocytes # (Auto) 1.07 K/uL Monocytes # (Auto) 0.41 K/uL Eosinophils # (Auto) 0.02 K/uL Basophils # (Auto) 0.01 K/uL RDW Standard Deviation 44.3 fL RDW Coefficient of Variation 12.9 % Immature Granulocyte % (Auto) 0.3 % Immature Granulocyte # (Auto) 0.01 K/uL Sodium Level 145 mmol/L Potassium Level 3.8 mmol/L Chloride Level 108 mmol/L Carbon Dioxide Level 34 mmol/L Anion Gap 3.0 mmol/L Blood Urea Nitrogen 14 mg/dl Creatinine 0.51 mg/dl Est Creatinine Clear Calc Drug Dose 188.0 ml/min Estimated GFR () 140.3 Estimated GFR (Non- 121.0 BUN/Creatinine Ratio 27.3 Random Glucose 81 mg/dl Calcium Level 9.0 mg/dl Phosphorus Level 3.8 mg/dl Magnesium Level 2.4 mg/dl Iron Level 88 mcg/dl Total Iron Binding Capacity 265 mcg/dl Ferritin 480.1 ng/ml Ammonia 20.0 umol/L Valproic Acid (Depakene) Level 72 mcg/ml Problem Qualifiers (1) Alcohol withdrawal: Complication of substance-induced condition: with delirium Qualified Codes: F10.231 - Alcohol dependence with withdrawal delirium
[2016-11-07] MEDS: DIVALPROEX SODIUM SPRINKLE 125 MG CAP PO SCH ×2 (14:24→20:32)
[2016-11-07] MEDS: GABAPENTIN 600 MG TAB PO SCH ×2 (17:15→20:31)
--- NOTE | 2016-11-07 17:28 | Progress Note ---
Internal Med Progress Note Date of Service: November 07, 2016. Provider Documentation: SUBJECTIVE: The Patient was seen and examined Remains Pleasantly confused OOB in a chair A little better Requires 1 on 1 sitter OBJECTIVE: Vital Signs-as noted below Exam: General-Pleasantly Confused,generally weak and lethargic Eyes-normal ENT-Normal Neck-supple Lungs-Transmitted sounds and minimal crackles at the bases Heart-Regular,no murmur appreciated Abdomen-Benign,no masses,bowel sound present Extremities-No edema Neuro-drowsy and confused Moving all limbs Lab data as noted below. 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, Benzodiazepines Tapering down Diazepam,still getting Diazepam 30mg QID Occasional agitation requiring 1 on 1 observation in ICU Remains confused Tapering down Diazepam and Clonidine slowly -to avoid withdrawal Getting better gradually DELIRIUM TREMENS -secondary to Alcohol abuse -s/p Extubation -Was on versed and propofol drip -Continue thiamine with higher doses Folic acid and IVF - EEG done showed no seizure activity -Required heavy dose of Benzodiazepines -will try to wean off gradually -Getting Gabapentin and Clonidine -remains confused - PT/OT started at bedside and progress as tolerated 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 and then resumed usual dose Appreciate Psychiatry input Taper down Benzodiazepine -will be a slow process Seroquel started Remains pleasantly confused but improving very slowly PNEUMONIA Likely secondary to Aspiration CXR showed Progression of bibasilar opacities, right greater than left Received Unasyn and Zithromax Has had a bronch done 10/22 Bronchial washings sent for culture and Gram stain, cx growth normal amish Fungal elements, and AFB stain negative D/C Azithromycin on 27 of October Finished the courses of antibiotics Started on Augmentin again for possible aspiration-discontinued Elevated Liver Enzymes -likely secondary to alcohol abuse -Hepatitis B and C negative -continue monitor liver enzymes-improving Nutrition Getting NGT feeding Ongoing Swallowing evaluation Started on oral diet THROMBOCYTOPENIA -secondary to Alcohol abuse and Cirrhosis -platelet improved from 35 to 50-->73 today -no pharmacologic anticoagulation initially -normalized ELEVATED CK LEVEL Likely from recurrent trauma Resolved Electrolytes Imbalance Supplement and Monitor TOBACCO ABUSE -Nicotine patch ordered DVT PROPHYLAXIS: SCDs RE: thrombocytopenia Will consider Heparin irf platelet goes >100 Started on Lovenox CODE STATUS: FULL CODE Consultants: VOICE PATHOLOGIST Procedures: Bronchoscopy Family 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 by Phonograph Mechanic Vital Signs: Date Time Temp Pulse Resp B/P Pulse Ox O2 Delivery O2 Flow Rate FiO2 11/07/16 16:02 36.7 93 16 134/96 96 Room Air 11/07/16 16:00 Room Air 11/07/16 14:00 36.8 88 16 138/83 95 Room Air 11/07/16 12:00 Room Air 11/07/16 12:00 36.8 84 16 113/68 96 Room Air 11/07/16 10:00 36.9 76 16 138/89 96 Room Air 11/07/16 08:00 36.9 70 16 153/94 96 Room Air 11/07/16 08:00 Room Air 11/07/16 08:00 Room Air 11/07/16 07:12 79 20 95 Room Air 11/07/16 06:00 78 18 118/84 97 Room Air 11/07/16 04:00 Room Air 11/07/16 04:00 36.5 74 15 117/79 97 Room Air 11/07/16 02:00 71 20 11/07/16 00:05 36.5 79 16 120/79 98 Room Air 11/06/16 23:59 Room Air 11/06/16 22:11 36.5 74 14 110/66 99 Room Air 11/06/16 20:32 36.6 83 14 120/84 98 Room Air 11/06/16 20:00 Room Air 11/06/16 19:13 86 20 94 Room Air 11/06/16 18:13 69 18 Room Air Lab Results: Results Past 24 Hours Test 11/07/16 05:44 Range/Units White Blood Count 3.83 4.8-10.8 K/uL Red Blood Count 4.00 4.7-6.1 M/uL Hemoglobin 11.9 14.0-18.0 g/dL Hematocrit 37.6 42-52 % Mean Corpuscular Volume 94.0 80-100 fL Mean Corpuscular Hemoglobin 29.8 25-34 pg Mean Corpuscular Hemoglobin Concent 31.6 32-36 g/dl Platelet Count 361 130-400 K/uL Mean Platelet Volume 9.9 7.4-10.4 fL Neutrophils (%) (Auto) 60.3 % Lymphocytes (%) (Auto) 27.9 % Monocytes (%) (Auto) 10.7 % Eosinophils (%) (Auto) 0.5 % Basophils (%) (Auto) 0.3 % Neutrophils # (Auto) 2.31 1.4-6.5 K/uL Lymphocytes # (Auto) 1.07 1.2-3.4 K/uL Monocytes # (Auto) 0.41 0.11-0.59 K/uL Eosinophils # (Auto) 0.02 0-0.5 K/uL Basophils # (Auto) 0.01 0-0.2 K/uL RDW Standard Deviation 44.3 36.4-46.3 fL RDW Coefficient of Variation 12.9 11.5-14.5 % Immature Granulocyte % (Auto) 0.3 % Immature Granulocyte # (Auto) 0.01 0.00-0.02 K/uL Sodium Level 145 136-145 mmol/L Potassium Level 3.8 3.5-5.1 mmol/L Chloride Level 108 98-107 mmol/L Carbon Dioxide Level 34 21-32 mmol/L Anion Gap 3.0 3-11 mmol/L Blood Urea Nitrogen 14 7-18 mg/dl Creatinine 0.51 0.60-1.40 mg/dl Est Creatinine Clear Calc Drug Dose 188.0 ml/min Estimated GFR () 140.3 Estimated GFR (Non- 121.0 BUN/Creatinine Ratio 27.3 10-20 Random Glucose 81 70-99 mg/dl Calcium Level 9.0 8.5-10.1 mg/dl Phosphorus Level 3.8 2.5-4.9 mg/dl Magnesium Level 2.4 1.8-2.4 mg/dl Iron Level 88 35-175 mcg/dl Total Iron Binding Capacity 265 250-450 mcg/dl Ferritin 480.1 8.0-388.0 ng/ml Ammonia 20.0 11-32 umol/L Valproic Acid (Depakene) Level 72 50-100 mcg/ml
[2016-11-07] MEDS: NICOTINE 21 MG/24 HR TDSY TD SCH (20:39)
[2016-11-08] VITALS (23 sets, daily range): BP systolic 79–147; BP diastolic 47–86; PULSE 88–161; TEMP 36.5–37.1; O2SAT 92–98
[2016-11-08 05:48] LABS: BASO % 0.2 %; BASO ABS # 0.01 K/uL (0-0.2); COMPLETE YES; EOS % 0.2 %; HEMATOCRIT 33.6 % (42-52); IG% 0.2 %; LYMPH % 29.2 %; LYMPH ABS # 1.19 K/uL (1.2-3.4); MEAN CELL VOLUME 94.1 fL (80-100); MEAN CORPUSCULAR HEMOGLOBIN 31.4 pg (25-34); MEAN CORPUSCULAR HGB CONC 33.3 g/dl (32-36); MEAN PLATELET VOLUME 9.8 fL (7.4-10.4); MONO % 7.4 %; NEUT % 62.8 %; PLATELET COUNT 345 K/uL (130-400); RED BLOOD COUNT 3.57 M/uL (4.7-6.1); WHITE BLOOD COUNT 4.07 K/uL (4.8-10.8)
[2016-11-08 06:24] LABS: BUN/CREATININE RATIO 18.2 (10-20); CALCIUM 9.1 mg/dl (8.5-10.1); CREATININE 0.57 mg/dl (0.60-1.40); POTASSIUM 3.7 mmol/L (3.5-5.1)
[2016-11-08] MEDS: ACETYLCYSTEINE 20% INHAL SOLN ***DISPENSED BY RESP. INH SCH ×2 (07:12→20:25)
[2016-11-08] MEDS: ALBUTEROL 0.083% NEBU SOLN 3 ML VIAL INH SCH ×2 (07:12→20:25)
[2016-11-08] MEDS: TRIAMCINOLONE ACET 0.025% CR 15 GM TUBE EXT SCH ×2 (07:41→21:27)
[2016-11-08] MEDS: POTASSIUM CHLORIDE 20 MEQ/15 ML UDC NG SCH (07:42)
[2016-11-08] MEDS: DOCUSATE SODIUM 100 MG/10 ML UDC PO SCH ×2 (07:43→21:28)
[2016-11-08] MEDS: MULTIVITAMINS W/MINERALS 15ML UDP PO SCH (07:43)
[2016-11-08] MEDS: GABAPENTIN 600 MG TAB PO SCH ×4 (07:44→21:31)
[2016-11-08] MEDS: DIVALPROEX SODIUM SPRINKLE 125 MG CAP PO SCH ×3 (07:44→21:28)
[2016-11-08] MEDS: POLYETHYLENE (MIRALAX) 17 GM PACK PO SCH (07:44)
[2016-11-08] MEDS: SENNA 17.6 MG/10 ML UDP PO SCH (07:45)
[2016-11-08] MEDS: CHOLECALCIFEROL 1000 INTER.UNIT TAB PO SCH (07:45)
[2016-11-08] MEDS ORDERED: POTASSIUM CHLORIDE 20 MEQ/15 ML UDC PO STA (07:46)
[2016-11-08] MEDS: ENOXAPARIN 40 MG/0.4 ML SYR SQ SCH (07:46)
[2016-11-08] MEDS: DIAZEPAM 5MG TAB PO SCH ×3 (09:08→21:31)
[2016-11-08] MEDS: CLONIDINE HCL 0.1 MG TAB PO SCH ×2 (09:08→15:00)
[2016-11-08] MEDS: NICOTINE 21 MG/24 HR TDSY TD SCH (09:09)
--- NOTE | 2016-11-08 09:25 | Progress Note ---
Internal Med Progress Note Date of Service: November 08, 2016. Provider Documentation: SUBJECTIVE: The Patient was seen and examined Remains Pleasantly confused OOB in a chair A little better -getting better very slowly Requires 1 on 1 sitter OBJECTIVE: Vital Signs-as noted below Exam: General-Pleasantly Confused,generally weak and lethargic Eyes-normal ENT-Normal Neck-supple Lungs-Transmitted sounds and minimal crackles at the bases Heart-Regular,no murmur appreciated Abdomen-Benign,no masses,bowel sound present Extremities-No edema Neuro-drowsy and confused Moving all limbs Lab data as noted below. 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 Tapering down Diazepam,Diazepam is reduced to 20 mg QID Clonidine is reduced as well Occasional agitation requiring 1 on 1 observation in ICU Remains confused Will need Inpatient rehab DELIRIUM TREMENS -secondary to Alcohol abuse -s/p Extubation -Was on versed and propofol drip -Continue thiamine with higher doses Folic acid and IVF - EEG done showed no seizure activity -Required heavy dose of Benzodiazepines -will try to wean off gradually -Getting Gabapentin and Clonidine -remains confused - PT/OT started at bedside and progress as tolerated 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 and then resumed usual dose Appreciate Psychiatry input Taper down Benzodiazepine -will be a slow process Seroquel started Remains pleasantly confused but improving very slowly PNEUMONIA Likely secondary to Aspiration CXR showed Progression of bibasilar opacities, right greater than left Received Unasyn and Zithromax Has had a bronch done 10/22 Bronchial washings sent for culture and Gram stain, cx growth normal amish Fungal elements, and AFB stain negative D/C Azithromycin on 27 of October Finished the courses of antibiotics Started on Augmentin again for possible aspiration-discontinued Antibiotic course is finished Elevated Liver Enzymes -likely secondary to alcohol abuse -Hepatitis B and C negative -continue monitor liver enzymes-improving Nutrition Getting NGT feeding Ongoing Swallowing evaluation Started on oral diet and tolerating THROMBOCYTOPENIA -secondary to Alcohol abuse and Cirrhosis -platelet improved from 35 to 50-->73 today -no pharmacologic anticoagulation initially -normalized ELEVATED CK LEVEL Likely from recurrent trauma Resolved Electrolytes Imbalance Supplement and Monitor TOBACCO ABUSE -Nicotine patch ordered DVT PROPHYLAXIS: SCDs RE: thrombocytopenia Will consider Heparin irf platelet goes >100 Started on Lovenox CODE STATUS: FULL CODE Consultants: MANAGER ANALYSIS Procedures: Bronchoscopy Family 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 by Pharmaceutical Analyst Vital Signs: Date Time Temp Pulse Resp B/P Pulse Ox O2 Delivery O2 Flow Rate FiO2 11/08/16 07:13 93 16 96 Room Air 11/08/16 05:54 93 16 147/82 96 Room Air 11/08/16 04:00 Room Air 11/08/16 03:46 36.8 98 22 134/86 95 Room Air 11/08/16 01:51 105 12 106/78 96 Room Air 11/08/16 00:01 Room Air 11/07/16 23:36 36.9 84 17 137/97 96 Room Air 11/07/16 22:17 84 18 114/76 94 Room Air 11/07/16 22:15 79 15 85/50 Room Air 11/07/16 22:14 82 12 86/49 Room Air 11/07/16 20:05 80 16 97 Room Air 11/07/16 20:00 Room Air 11/07/16 19:02 36.8 76 17 106/70 93 Room Air 11/07/16 18:00 36.8 88 16 105/68 96 Room Air 11/07/16 16:02 36.7 93 16 134/96 96 Room Air 11/07/16 16:00 Room Air 11/07/16 14:00 36.8 88 16 138/83 95 Room Air 11/07/16 12:00 Room Air 11/07/16 12:00 36.8 84 16 113/68 96 Room Air 11/07/16 10:00 36.9 76 16 138/89 96 Room Air Lab Results: Results Past 24 Hours Test 11/08/16 05:18 Range/Units White Blood Count 4.07 4.8-10.8 K/uL Red Blood Count 3.57 4.7-6.1 M/uL Hemoglobin 11.2 14.0-18.0 g/dL Hematocrit 33.6 42-52 % Mean Corpuscular Volume 94.1 80-100 fL Mean Corpuscular Hemoglobin 31.4 25-34 pg Mean Corpuscular Hemoglobin Concent 33.3 32-36 g/dl Platelet Count 345 130-400 K/uL Mean Platelet Volume 9.8 7.4-10.4 fL Neutrophils (%) (Auto) 62.8 % Lymphocytes (%) (Auto) 29.2 % Monocytes (%) (Auto) 7.4 % Eosinophils (%) (Auto) 0.2 % Basophils (%) (Auto) 0.2 % Neutrophils # (Auto) 2.55 1.4-6.5 K/uL Lymphocytes # (Auto) 1.19 1.2-3.4 K/uL Monocytes # (Auto) 0.30 0.11-0.59 K/uL Eosinophils # (Auto) 0.01 0-0.5 K/uL Basophils # (Auto) 0.01 0-0.2 K/uL RDW Standard Deviation 44.7 36.4-46.3 fL RDW Coefficient of Variation 12.9 11.5-14.5 % Immature Granulocyte % (Auto) 0.2 % Immature Granulocyte # (Auto) 0.01 0.00-0.02 K/uL Sodium Level 145 136-145 mmol/L Potassium Level 3.7 3.5-5.1 mmol/L Chloride Level 107 98-107 mmol/L Carbon Dioxide Level 32 21-32 mmol/L Anion Gap 6.0 3-11 mmol/L Blood Urea Nitrogen 10 7-18 mg/dl Creatinine 0.57 0.60-1.40 mg/dl Est Creatinine Clear Calc Drug Dose 163.0 ml/min Estimated GFR () 134.0 Estimated GFR (Non- 115.6 BUN/Creatinine Ratio 18.2 10-20 Random Glucose 94 70-99 mg/dl Calcium Level 9.1 8.5-10.1 mg/dl
[2016-11-08] MEDS ORDERED: METOPROLOL TARTRATE 1 MG/ML VIAL IV STA (12:30)
[2016-11-08] MEDS ORDERED: METOPROLOL TARTRATE 1 MG/ML VIAL ONE ×2 (12:30→13:05)
[2016-11-08] MEDS ORDERED: NURSING VERBAL MED ORDER ONE (13:15)
[2016-11-08] MEDS: THIAMINE HCL 100 MG TAB PO SCH (13:34)
[2016-11-08] MEDS ORDERED: AMIODARONE 150MG / 100ML D5W ONE (13:39)
[2016-11-08] MEDS ORDERED: AMIODARONE IV BOLUS / DRIP IV STA (13:51)
[2016-11-08] MEDS ORDERED: SODIUM CHLORIDE 0.9% 500ML 500 ML IV SCH (14:00)
[2016-11-08] MEDS ORDERED: AMIODARONE / D5W 200 ML IV SCH (14:15)
[2016-11-08] MEDS ORDERED: DILTIAZEM HCL 5 MG/ML 5 ML VIAL ONE (14:43)
[2016-11-08] MEDS ORDERED: DILTIAZEM HCL 5 MG/ML 5 ML VIAL IV STA (14:43)
[2016-11-08] MEDS ORDERED: SODIUM CHLORIDE 0.9% 1000ML 1,000 ML IV SCH (17:00)
--- NOTE | 2016-11-08 17:12 | Critical Care Progress Note ---
Critical Care Progress Note Date of Service November 08, 2016. ICU Day ICU Day Number: [address] Aston Singer The patient was admitted with ETOH withdrawal complicated by aspiration peumonia and respiratory failure necessitating MV. he was successfully extubated and we were weaning down his valium and clonidine. Today in the am he was in his stable state conversive but impulsive and then around noon time he went into A fib with RVR up to 160s. Metoprolol was given. 10 mg in total. he dropped his BP. He responded to a 500 ml bolus of NS then we started amiodarone. He then received 10 mg cardizem and the combination controlled his rate down to <110. He denied light headedness dizziness, CP SOB during this episode and denied feeling palpitation. I also spoke to his sister this afternoon for over 30 minutes regarding skilled nursing goals. He needs to be placed in a skilled nursing facility to care for dementia patients unable to care for themselves or make meaningful decisions. Objective General Appearance: calm, comfortable Head: normocephalic,excoriation on the nose and face Neck: trachea midline, no stridor, no JVD Respiratory: clear to auscultation, no added sounds or wheezing Cardiovascular: normal S1S2, no added sounds or murmurs Abdomen: non tender, normal bowel sounds, no rebound Upper Extremities: other (multiple ecchymoses of varying age) Lower Extremities: no edema, no deformity, other (multiple ecchymoses of varying age), no calf tenderness Neuro: Moves all 4 extremities when lightening sedation, Alert to person only, CAM ICU positive Current SOFA Score SOFA Score Response (Comments) Value SaO2 / FIO2 221 - 301 1 Platelets (x10) > 150 0 Bilirubin (mg/dL) < 1.2 0 Do Coma Score 13 - 14 1 Level of Hypotension No Hypotension 0 Creatinine (mg/dL) < 1.2 0 Total 2 Previous SOFA Scores 2 on 11/07/2016 Assessment & Plan (1) History of traumatic brain injury (2) Alcohol withdrawal (3) Multiple contusions (4) Tobacco abuse (5) Alcohol abuse (1) History of traumatic brain injury (2) Alcohol withdrawal (3) Multiple contusions (4) Tobacco abuse (5) Alcohol abuse 1) History of traumatic brain injury (2) Alcohol withdrawal (3) Multiple contusions (4) Tobacco abuse (5) Alcohol abuse (6) Wernicke-Korsakoff syndrome (7) Malnutrition related to chronic disease (9) anemia likely secondary to malnutrition NEUROLOGICAL - GCS: 14 Eyes: 4; Verbal: 4; Motor 6 Depakote: 675 milligrams every 8 hours IV which is total daily dose of 25 mg/kg (Depakote level LII low and normal, DEpakote level within normal at 72 Strict sleep hygiene decrease Valium dosing interval to 10 mg from 20 mg every 6 hours (20mg daily dose reduction) Wernicke's Korsakoff's Syndrome - 2/2 EtOH abuse and nutrient deficiency - Thiamine repletion Thiamin 100 mg daily - Psych consulted for protracted agitated delirium; recommendations appreciated - Needs assessment for inpatient rehabilitation when medically stable needs placement for dementia. Korsakoff psychosis. CARDIOVASCULAR MAP mostly 73-95 with some increased levels in the early learning teacher hours to 103 (? GEOVANNY) better than yesterday - HR 90-110 A fib irreg irreg - Vasopressor support: None Hypertension -decreased Clonidine to 0.1mg today but then we held it given low BP will amiodarone drip for A fib metoprolol PRN for A fib will need full dose anticoagulation However, he is at risk of self injury and falls with history of multiple brain trauma. Will hold off full dose at this point RESPIRATORY - RR: 16-18 SpO2: 92% on room air - Albuterol nebulizers scaled back to PRN only Acute Respiratory Distress GASTROINTESTINAL - Diet: he passed a Swallow evaluation and we started oral diet. - Bowel regimen: Colace, Senna, Dulcolax Chronic Malnutrition - 2/2 chronic alcohol abuse, Continue Thiamine, Continue Folate 1 mg qAM, Continue Multivitamin daily RENAL//ENDOCRINE - Fluid Balance +627 but his UO is 0.38 ml/Kg BW-hr patient euvolemic Will check FeNa to confirm euvolemia K, Mg and P within normal. Will FU and replete lytes endocrine - BS-110, stable; no indications for insulin - Patient has not been hyperglycemic nor hypoglycemic will change blood glucose checks to when necessary NFECTIOUS DISEASES - Tmax: Afebrile WBC: <5 Will obtain Blood cultures ? A fib due to sepsis. Althoguh he has no other finding at all to suggest sepsis. will monitor - DVT Prophylaxis: Lovenox 40 mg qAM. LINES/IV ACCESS peripheral IV CODE STATUS - Full Code DISPOSITION - OT/PT: Ordered - ICU due extreme intermittent agitation. He will need transfer to a skilled facility soon. But for now will monitor in MICU given the new A fib with RVR I spent 60 minutes of CC time managing the patient Consults & Procedures Consultants: Mental health Procedures: Endotracheal intubation 10/20/2016 Bronchoscopy 10/22/2016 CT PE negative on 11/03/2016 Data Medications: Current Inpatient Medications Medications (Trade) Dose Ordered Sig/Rica Route Start Time Stop Time Status Last Admin Dose Admin Acetaminophen (Tylenol Tab) 650 mg Q4H PRN PO 10/20/16 16:00 11/19/16 15:59 Ondansetron HCl (Zofran Inj) 4 mg Q6H PRN IV 10/20/16 16:00 11/19/16 15:59 10/20/16 19:31 4 MG Lorazepam (Ativan Inj) PRN Dosing -Active Protocol Q1H PRN IV 10/20/16 16:00 11/19/16 15:59 Future Hold 11/02/16 05:54 2 MG Multivitamins Therapeutic (Cerovite Liquid) 15 ml QAM PO 10/21/16 09:00 11/20/16 08:59 11/08/16 07:43 15 ML Folic Acid (Folvite Tab) 1 mg QAM PO 10/21/16 09:00 11/20/16 08:59 11/08/16 07:44 1 MG Polyethylene (Miralax Powder Packet) 17 gm QAM PO 10/23/16 09:00 11/22/16 08:59 11/08/16 07:44 17 GM Docusate Sodium (coLACE SYRUP) 100 mg BID PO 10/23/16 09:00 11/22/16 08:59 11/08/16 07:43 100 MG Heparin Sodium (Porcine) (Heparin 10 Unit/ ml 5 ml Flush) 5 ml PRN PRN FLUSH 10/24/16 01:45 11/23/16 01:44 10/31/16 13:16 10 ML Enoxaparin Sodium (Lovenox Inj) 40 mg QAM SQ 10/25/16 09:00 11/24/16 08:59 11/08/16 07:46 40 MG Bisacodyl (Dulcolax Supp) 10 mg DAILY PRN VT 10/27/16 09:00 11/26/16 08:59 10/29/16 07:16 10 MG Cholecalciferol (Vitamin D Tab) 2,000 inter.unit DAILY PO 10/27/16 14:30 11/26/16 14:29 11/08/16 07:45 2,000 INTER.UNIT Senna (Senokot Syrup) 17.6 mg QAM PO 10/29/16 09:00 11/28/16 08:59 11/08/16 07:45 17.6 MG Triamcinolone Acetonide (Kenalog 0.025% Crm) 1 appln BID EXT 10/29/16 21:00 11/28/16 20:59 11/08/16 07:41 1 APPLN Albuterol/ Ipratropium (Duoneb) 3 ml Q6H PRN INH 10/30/16 10:00 11/29/16 09:59 Magnesium Oxide (Mag-Ox Tab) 400 mg DAILY PO 11/01/16 09:00 12/01/16 08:59 Future Hold 11/02/16 07:50 400 MG Potassium Chloride (Lakeisha Ciel Elix) 60 meq QAM NG 11/03/16 09:49 12/03/16 09:48 11/08/16 07:42 60 MEQ Albuterol Sulfate (Ventolin 0.083% 2.5MG/3ML Neb) 2.5 mg BIDR INH 11/04/16 09:00 12/04/16 08:59 11/08/16 07:12 2.5 MG Acetylcysteine (Mucomyst 20% Inh Soln) 5 ml BIDR INH 11/04/16 09:00 12/04/16 08:59 11/08/16 07:12 5 ML Thiamine HCl (Vitamin B-1 Tab) 100 mg QAM PO 11/08/16 09:00 12/08/16 08:59 11/08/16 13:34 100 MG Gabapentin (Neurontin Tab) 600 mg QID PO 11/07/16 17:00 12/07/16 16:59 11/08/16 13:15 600 MG Divalproex Sodium (Depakote Sprinkle Cap) 625 mg TID PO 11/07/16 14:00 12/07/16 13:59 11/08/16 13:56 625 MG Nicotine (Nicoderm Cq 21MG Patch) 1 patch QAM TD 11/07/16 19:30 12/07/16 19:29 11/08/16 09:09 1 PATCH Miscellaneous (Remove Nicoderm Patch) 1 ea HS N/A 11/07/16 21:00 12/07/16 20:59 Clonidine HCl (Catapres Tab) 0.1 mg Q6H PO 11/08/16 09:00 12/08/16 08:59 Future Hold 11/08/16 09:08 0.1 MG Diazepam 10 mg 10 mg Q6H PO 11/08/16 09:00 12/08/16 08:59 11/08/16 09:08 10 MG Amiodarone HCL/ Dextrose 200 ml @ 33.3 mls/hr Q6H1M IV 11/08/16 14:15 11/08/16 20:15 11/08/16 14:48 33.3 MLS/HR Amiodarone HCL/ Dextrose (Nexterone / D5w) 200 ml @ 16.7 mls/hr [id number] IV 11/08/16 20:15 12/08/16 20:14 I & O: 24-Hour Column 11/08/16 08:00 Intake Total 1075 ml Output Total 1240 ml Balance -165 ml Vital Signs: Date Time Temp Pulse Resp B/P Pulse Ox O2 Delivery O2 Flow Rate FiO2 11/08/16 13:47 140 24 89/63 11/08/16 13:38 155 17 82/56 11/08/16 13:33 161 21 93/60 11/08/16 13:25 88 12 83/67 98 Room Air 11/08/16 13:10 135 122/68 11/08/16 12:48 129 22 122/68 Room Air 11/08/16 12:37 157 141/47 11/08/16 12:33 146 15 141/47 Room Air 11/08/16 12:00 Room Air 11/08/16 11:53 95 14 125/82 Room Air 11/08/16 10:00 100 19 119/81 92 Room Air 11/08/16 08:00 Room Air 11/08/16 08:00 Room Air 11/08/16 07:50 36.8 111 36 130/83 Room Air 11/08/16 07:13 93 16 96 Room Air 11/08/16 05:54 93 16 147/82 96 Room Air 11/08/16 04:00 Room Air 11/08/16 03:46 36.8 98 22 134/86 95 Room Air 11/08/16 01:51 105 12 106/78 96 Room Air 11/08/16 00:01 Room Air 11/07/16 23:36 36.9 84 17 137/97 96 Room Air 11/07/16 22:17 84 18 114/76 94 Room Air 11/07/16 22:15 79 15 85/50 Room Air 11/07/16 22:14 82 12 86/49 Room Air 11/07/16 20:05 80 16 97 Room Air 11/07/16 20:00 Room Air 11/07/16 19:02 36.8 76 17 106/70 93 Room Air 11/07/16 18:00 36.8 88 16 105/68 96 Room Air Laboratory Results: Last 24 Hours Test 11/08/16 05:18 11/08/16 05:20 White Blood Count 4.07 K/uL Red Blood Count 3.57 M/uL Hemoglobin 11.2 g/dL Hematocrit 33.6 % Mean Corpuscular Volume 94.1 fL Mean Corpuscular Hemoglobin 31.4 pg Mean Corpuscular Hemoglobin Concent 33.3 g/dl Platelet Count 345 K/uL Mean Platelet Volume 9.8 fL Neutrophils (%) (Auto) 62.8 % Lymphocytes (%) (Auto) 29.2 % Monocytes (%) (Auto) 7.4 % Eosinophils (%) (Auto) 0.2 % Basophils (%) (Auto) 0.2 % Neutrophils # (Auto) 2.55 K/uL Lymphocytes # (Auto) 1.19 K/uL Monocytes # (Auto) 0.30 K/uL Eosinophils # (Auto) 0.01 K/uL Basophils # (Auto) 0.01 K/uL RDW Standard Deviation 44.7 fL RDW Coefficient of Variation 12.9 % Immature Granulocyte % (Auto) 0.2 % Immature Granulocyte # (Auto) 0.01 K/uL Sodium Level 145 mmol/L Potassium Level 3.7 mmol/L Chloride Level 107 mmol/L Carbon Dioxide Level 32 mmol/L Anion Gap 6.0 mmol/L Blood Urea Nitrogen 10 mg/dl Creatinine 0.57 mg/dl Est Creatinine Clear Calc Drug Dose 163.0 ml/min Estimated GFR () 134.0 Estimated GFR (Non- 115.6 BUN/Creatinine Ratio 18.2 Random Glucose 94 mg/dl Calcium Level 9.1 mg/dl Magnesium Level 2.4 mg/dl Problem Qualifiers (1) Alcohol withdrawal: Complication of substance-induced condition: with delirium Qualified Codes: F10.231 - Alcohol dependence with withdrawal delirium
[2016-11-08] MEDS: AMIODARONE / D5W 200 ML IV SCH (20:03)
[2016-11-09] VITALS (16 sets, daily range): BP systolic 83–137; BP diastolic 44–98; PULSE 71–135; TEMP 36.5–37; O2SAT 91–99
[2016-11-09] MEDS ORDERED: METOPROLOL TARTRATE 1 MG/ML VIAL IV STA (00:05)
[2016-11-09] MEDS: DIAZEPAM 5MG TAB PO SCH ×2 (03:00→08:37)
[2016-11-09 05:38] LABS: BASO % 0.3 %; BASO ABS # 0.02 K/uL (0-0.2); COMPLETE YES; EOS % 0.2 %; HEMATOCRIT 35.6 % (42-52); IG% 0.5 %; LYMPH % 28.1 %; LYMPH ABS # 1.68 K/uL (1.2-3.4); MEAN CELL VOLUME 94.7 fL (80-100); MEAN CORPUSCULAR HEMOGLOBIN 31.9 pg (25-34); MEAN CORPUSCULAR HGB CONC 33.7 g/dl (32-36); NEUT % 62.9 %; PLATELET COUNT 358 K/uL (130-400); RED BLOOD COUNT 3.76 M/uL (4.7-6.1); WHITE BLOOD COUNT 5.98 K/uL (4.8-10.8)
[2016-11-09 06:08] LABS: BLOOD UREA NITROGEN 7 mg/dl (7-18); BUN/CREATININE RATIO 10.4 (10-20); CALCIUM 8.8 mg/dl (8.5-10.1); CARBON DIOXIDE 31 mmol/L (21-32); CHLORIDE 111 mmol/L (98-107); CREATININE 0.68 mg/dl (0.60-1.40); GLUCOSE 104 mg/dl (70-99); MAGNESIUM 2.2 mg/dl (1.8-2.4); PHOSPHORUS 3.7 mg/dl (2.5-4.9); POTASSIUM 3.9 mmol/L (3.5-5.1); SODIUM 147 mmol/L (136-145)
[2016-11-09] MEDS: ACETYLCYSTEINE 20% INHAL SOLN ***DISPENSED BY RESP. INH SCH (07:06)
[2016-11-09] MEDS: ALBUTEROL 0.083% NEBU SOLN 3 ML VIAL INH SCH (07:06)
[2016-11-09] MEDS: SODIUM CHLORIDE 0.45% 1000ML 1,000 ML IV SCH ×2 (08:00→21:19)
--- NOTE | 2016-11-09 08:03 | DIAGNOSTIC IMAGING REPORT ---
CHEST ONE VIEW PORTABLE CLINICAL HISTORY: Evaluate for infiltrate. COMPARISON STUDY: Chest radiograph November 04, 2016. FINDINGS: There is no pneumothorax or pleural effusion. Bibasilar opacities have significantly improved. There are old left rib fractures. There is no evidence of pulmonary edema. Cardiac size is within normal limits. IMPRESSION: Significant improvement in bibasilar opacities since exam of November 04, 2016. Electronically signed by: Salomón Villalobos M.D. 11/09/2016 8:02 AM Dictated Date/Time: 11/09/2016 8:00 AM
[2016-11-09] MEDS: AMIODARONE / D5W 200 ML IV SCH ×2 (08:30→20:13)
[2016-11-09] MEDS: GABAPENTIN 600 MG TAB PO SCH ×4 (08:38→21:22)
[2016-11-09] MEDS: DIVALPROEX SODIUM SPRINKLE 125 MG CAP PO SCH ×3 (08:38→21:22)
[2016-11-09] MEDS: CHOLECALCIFEROL 1000 INTER.UNIT TAB PO SCH (08:38)
[2016-11-09] MEDS: TRIAMCINOLONE ACET 0.025% CR 15 GM TUBE EXT SCH ×2 (08:39→21:20)
[2016-11-09] MEDS: SENNA 17.6 MG/10 ML UDP PO SCH (08:39)
[2016-11-09] MEDS: MULTIVITAMINS W/MINERALS 15ML UDP PO SCH (08:39)
[2016-11-09] MEDS: NICOTINE 21 MG/24 HR TDSY TD SCH (08:40)
[2016-11-09] MEDS: POTASSIUM CHLORIDE 20 MEQ/15 ML UDC NG SCH (08:40)
[2016-11-09] MEDS: POLYETHYLENE (MIRALAX) 17 GM PACK PO SCH (08:40)
[2016-11-09] MEDS: ENOXAPARIN 40 MG/0.4 ML SYR SQ SCH (08:51)
[2016-11-09] MEDS: DOCUSATE SODIUM 100 MG/10 ML UDC PO SCH ×2 (08:54→21:20)
[2016-11-09] MEDS: THIAMINE HCL 100 MG TAB PO SCH (08:57)
[2016-11-09] MEDS: CLONIDINE HCL 0.1 MG TAB PO SCH ×3 (09:02→21:00)
[2016-11-09] MEDS ORDERED: METOPROLOL TARTRATE 1 MG/ML VIAL IV PRN (09:30)
[2016-11-09] MEDS ORDERED: ENOXAPARIN 40 MG/0.4 ML SYR SQ ONE (10:00)
--- NOTE | 2016-11-09 10:06 | Critical Care Progress Note ---
Critical Care Progress Note Date of Service Nov 09, 2016. ICU Day ICU Day Number: [address] Aston Singer The patient was admitted with ETOH withdrawal complicated by aspiration peumonia and respiratory failure necessitating MV. he was successfully extubated and we were weaning down his valium and clonidine. Today in the am he was in his stable state conversive but impulsive and then around noon time he went into A fib with RVR up to 160s. Metoprolol was given. 10 mg in total. he dropped his BP. He responded to a 500 ml bolus of NS then we started amiodarone. He then received 10 mg cardizem and the combination controlled his rate down to <110. He denied light headedness dizziness, CP SOB during this episode and denied feeling palpitation. I also spoke to his sister this afternoon for over 30 minutes regarding manager long term care goals. He needs to be placed in a senior living facility to care for dementia patients unable to care for themselves or make meaningful decisions. Objective General Appearance: calm, comfortable Head: normocephalic,excoriation on the nose and face Neck: trachea midline, no stridor, no JVD Respiratory: clear to auscultation, no added sounds or wheezing Cardiovascular: normal S1S2, no added sounds or murmurs Abdomen: non tender, normal bowel sounds, no rebound Upper Extremities: other (multiple ecchymoses of varying age) Lower Extremities: no edema, no deformity, other (multiple ecchymoses of varying age), no calf tenderness Neuro: Moves all 4 extremities when lightening sedation, Alert to person only, CAM ICU positive Current SOFA Score SOFA Score Response (Comments) Value Platelets (x10) > 150 0 Bilirubin (mg/dL) < 1.2 0 Do Coma Score 13 - 14 1 Level of Hypotension No Hypotension 0 Creatinine (mg/dL) < 1.2 0 Total 1 Previous SOFA Scores 2 on 11/07/2016 Assessment & Plan (1) History of traumatic brain injury (2) Alcohol withdrawal (3) Multiple contusions (4) Tobacco abuse (5) Alcohol abuse (1) History of traumatic brain injury (2) Alcohol withdrawal (3) Multiple contusions (4) Tobacco abuse (5) Alcohol abuse 1) History of traumatic brain injury (2) Alcohol withdrawal (3) Multiple contusions (4) Tobacco abuse (5) Alcohol abuse (6) Wernicke-Korsakoff syndrome (7) Malnutrition related to chronic disease (9) anemia likely secondary to malnutrition NEUROLOGICAL - GCS: 14 Eyes: 4; Verbal: 4; Motor 6 Depakote: 675 milligrams every 8 hours IV which is total daily dose of 25 mg/kg (Depakote level LII low and normal, DEpakote level within normal at 72 Strict sleep hygiene change Valium to librium 25 Q8 then 20 Q8 then 10 and then stop 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 Korsakoff psychosis. CARDIOVASCULAR MAP mostly 73-95 with some increased levels in the contract specialist hours to 103 (? GEOVANNY) better than yesterday - HR 90-110 A fib irreg irreg Amiodarone drip will end today and then will start 200 mg BID Hypertension -decreased Clonidine to 0.1mg today but held it overnight given low BP metoprolol PRN for A fib will need full dose anticoagulation However, he is at risk of self injury and falls with history of multiple brain trauma. Will use 80 mg BID lovenox as long as he is in house. However, if he does not revert to sinus rhythm we may need to stop it as outpatient given frequent falls TBI Troponin ruled out a cardiac event as cause of A fib. It may be due to dehydration or alcoholic cardiomyopathy/GEOVANNY . He does not appear septic afebrile and normal WBC RESPIRATORY - RR: 16-18 SpO2: 94% on room air - Albuterol nebulizers scaled back to PRN only Acute Respiratory Distress GASTROINTESTINAL - Diet: he passed a Swallow evaluation and we started oral diet. - Bowel regimen: Colace, Senna, Dulcolax Chronic Malnutrition - 2/2 chronic alcohol abuse, Continue Thiamine, Continue Folate 1 mg qAM, Continue Multivitamin daily RENAL//ENDOCRINE - Fluid Balance +2 liters and his UO is 0.49 ml/Kg BW-hr. It improved with fluid boluses yesterday. FeNa suggested he is fluid depleted it was 0.08% and we will hydrate him further today with 1/2 NS given NA 147. K, Mg and P within normal. Will FU and replete lytes endocrine - BS-110, stable; no indications for insulin - Patient has not been hyperglycemic nor hypoglycemic will change blood glucose checks to when necessary NFECTIOUS DISEASES - Tmax: Afebrile WBC: <5 will monitor - DVT Prophylaxis: on therapeutic dose for A fib LINES/IV ACCESS peripheral IV CODE STATUS - Full Code DISPOSITION - OT/PT: Ordered - ICU due extreme intermittent agitation. He will need transfer to a skilled facility soon. But for now will monitor in MICU given the new A fib with RVR I spent 60 minutes of CC time managing the patient Consults & Procedures Consultants: Mental health Procedures: Endotracheal intubation 10/20/2016 Bronchoscopy 10/22/2016 CT PE negative on 11/03/2016 Data Medications: Current Inpatient Medications Medications (Trade) Dose Ordered Sig/Rica Route Start Time Stop Time Status Last Admin Dose Admin Acetaminophen (Tylenol Tab) 650 mg Q4H PRN PO 10/20/16 16:00 11/19/16 15:59 Ondansetron HCl (Zofran Inj) 4 mg Q6H PRN IV 10/20/16 16:00 11/19/16 15:59 10/20/16 19:31 4 MG Lorazepam (Ativan Inj) PRN Dosing -Active Protocol Q1H PRN IV 10/20/16 16:00 11/19/16 15:59 Future Hold 11/02/16 05:54 2 MG Multivitamins Therapeutic (Cerovite Liquid) 15 ml QAM PO 10/21/16 09:00 11/20/16 08:59 11/09/16 08:39 15 ML Folic Acid (Folvite Tab) 1 mg QAM PO 10/21/16 09:00 11/20/16 08:59 11/09/16 08:39 1 MG Polyethylene (Miralax Powder Packet) 17 gm QAM PO 10/23/16 09:00 11/22/16 08:59 11/09/16 08:40 17 GM Docusate Sodium (coLACE SYRUP) 100 mg BID PO 10/23/16 09:00 11/22/16 08:59 11/09/16 08:54 100 MG Heparin Sodium (Porcine) (Heparin 10 Unit/ ml 5 ml Flush) 5 ml PRN PRN FLUSH 10/24/16 01:45 11/23/16 01:44 10/31/16 13:16 10 ML Enoxaparin Sodium (Lovenox Inj) 40 mg QAM SQ 10/25/16 09:00 11/24/16 08:59 11/09/16 08:51 40 MG Bisacodyl (Dulcolax Supp) 10 mg DAILY PRN NH 10/27/16 09:00 11/26/16 08:59 10/29/16 07:16 10 MG Cholecalciferol (Vitamin D Tab) 2,000 inter.unit DAILY PO 10/27/16 14:30 11/26/16 14:29 11/09/16 08:38 2,000 INTER.UNIT Senna (Senokot Syrup) 17.6 mg QAM PO 10/29/16 09:00 11/28/16 08:59 11/09/16 08:39 17.6 MG Triamcinolone Acetonide (Kenalog 0.025% Crm) 1 appln BID EXT 10/29/16 21:00 11/28/16 20:59 11/09/16 08:39 1 APPLN Albuterol/ Ipratropium (Duoneb) 3 ml Q6H PRN INH 10/30/16 10:00 11/29/16 09:59 Magnesium Oxide (Mag-Ox Tab) 400 mg DAILY PO 11/01/16 09:00 12/01/16 08:59 Future Hold 11/02/16 07:50 400 MG Potassium Chloride (Lakeisha Ciel Elix) 60 meq QAM NG 11/03/16 09:49 12/03/16 09:48 11/09/16 08:40 60 MEQ Albuterol Sulfate (Ventolin 0.083% 2.5MG/3ML Neb) 2.5 mg BIDR INH 11/04/16 09:00 12/04/16 08:59 11/09/16 07:06 2.5 MG Acetylcysteine (Mucomyst 20% Inh Soln) 5 ml BIDR INH 11/04/16 09:00 12/04/16 08:59 11/09/16 07:06 5 ML Thiamine HCl (Vitamin B-1 Tab) 100 mg QAM PO 11/08/16 09:00 12/08/16 08:59 11/09/16 08:57 100 MG Gabapentin (Neurontin Tab) 600 mg QID PO 11/07/16 17:00 12/07/16 16:59 11/09/16 08:38 600 MG Divalproex Sodium (Depakote Sprinkle Cap) 625 mg TID PO 11/07/16 14:00 12/07/16 13:59 11/09/16 08:38 625 MG Nicotine (Nicoderm Cq 21MG Patch) 1 patch QAM TD 11/07/16 19:30 12/07/16 19:29 11/09/16 08:40 1 PATCH Miscellaneous (Remove Nicoderm Patch) 1 ea HS N/A 11/07/16 21:00 12/07/16 20:59 11/08/16 21:27 1 EA Clonidine HCl (Catapres Tab) 0.1 mg Q6H PO 11/08/16 09:00 12/08/16 08:59 Future hold 11/09/16 09:02 0.1 MG Diazepam (Valium Tab) 10 mg Q6H PO 11/08/16 09:00 12/08/16 08:59 11/09/16 08:37 10 MG Amiodarone HCL/ Dextrose 200 ml @ 16.7 mls/hr [id number] IV 11/08/16 20:15 12/08/16 20:14 11/09/16 08:30 16.7 MLS/HR Sodium Chloride 1,000 ml @ 100 mls/hr Q10H IV 11/09/16 08:00 11/10/16 07:59 11/09/16 08:00 100 MLS/HR Vital Signs: Date Time Temp Pulse Resp B/P (MAP) Pulse Ox O2 Delivery O2 Flow Rate FiO2 11/09/16 07:15 102 20 93 Room Air 11/09/16 06:00 135 16 Room Air 11/09/16 04:00 121 21 101/62 (75) 94 Room Air 11/09/16 04:00 Room Air 11/09/16 01:00 130 100/60 11/09/16 00:01 36.5 115 17 97/72 (80) 99 Room Air 11/09/16 00:00 Room Air 11/08/16 22:25 131 16 109/69 (82) 11/08/16 20:25 116 20 96 Room Air 11/08/16 20:03 37.1 119 15 134/81 (98) 11/08/16 20:00 Room Air 11/08/16 18:03 100 10 102/83 (89) 11/08/16 17:02 36.6 124 14 125/70 (88) 11/08/16 16:03 108 13 105/79 (88) 11/08/16 16:00 Room Air 11/08/16 15:30 96 18 88/59 (69) 11/08/16 15:07 105 15 79/64 (69) 11/08/16 14:21 125 13 105/65 (78) 11/08/16 14:12 111 23 97/75 (82) 11/08/16 13:47 140 24 89/63 (72) 11/08/16 13:38 155 17 82/56 (65) 11/08/16 13:33 161 21 93/60 (71) 11/08/16 13:25 88 12 83/67 (72) 98 Room Air 11/08/16 13:10 135 122/68 11/08/16 12:48 129 22 122/68 (86) Room Air 11/08/16 12:37 157 141/47 11/08/16 12:33 146 15 141/47 (78) Room Air 11/08/16 12:00 Room Air 11/08/16 11:53 36.5 95 14 125/82 (96) Room Air 11/08/16 10:00 100 19 119/81 (94) 92 Room Air Laboratory Results: Last 24 Hours Test 11/08/16 21:20 11/08/16 22:00 11/09/16 04:59 Urine Random Creatinine 210.0 mg/dl Urine Random Sodium 37 mEq/L Troponin I < 0.015 ng/ml < 0.015 ng/ml White Blood Count 5.98 K/uL Red Blood Count 3.76 M/uL Hemoglobin 12.0 g/dL Hematocrit 35.6 % Mean Corpuscular Volume 94.7 fL Mean Corpuscular Hemoglobin 31.9 pg Mean Corpuscular Hemoglobin Concent 33.7 g/dl Platelet Count 358 K/uL Mean Platelet Volume 10.0 fL Neutrophils (%) (Auto) 62.9 % Lymphocytes (%) (Auto) 28.1 % Monocytes (%) (Auto) 8.0 % Eosinophils (%) (Auto) 0.2 % Basophils (%) (Auto) 0.3 % Neutrophils # (Auto) 3.76 K/uL Lymphocytes # (Auto) 1.68 K/uL Monocytes # (Auto) 0.48 K/uL Eosinophils # (Auto) 0.01 K/uL Basophils # (Auto) 0.02 K/uL RDW Standard Deviation 45.2 fL RDW Coefficient of Variation 13.1 % Immature Granulocyte % (Auto) 0.5 % Immature Granulocyte # (Auto) 0.03 K/uL Sodium Level 147 mmol/L Potassium Level 3.9 mmol/L Chloride Level 111 mmol/L Carbon Dioxide Level 31 mmol/L Anion Gap 5.0 mmol/L Blood Urea Nitrogen 7 mg/dl Creatinine 0.68 mg/dl Est Creatinine Clear Calc Drug Dose 136.6 ml/min Estimated GFR () 124.6 Estimated GFR (Non- 107.5 BUN/Creatinine Ratio 10.4 Random Glucose 104 mg/dl Calcium Level 8.8 mg/dl Phosphorus Level 3.7 mg/dl Magnesium Level 2.2 mg/dl Problem Qualifiers (1) Alcohol withdrawal: Complication of substance-induced condition: with delirium Qualified Codes: F10.231 - Alcohol dependence with withdrawal delirium
[2016-11-09] MEDS ORDERED: LORAZEPAM 2 MG/ML 1 ML VIAL ONE (11:11)
[2016-11-09] MEDS ORDERED: LORAZEPAM 2 MG/ML 1 ML VIAL IV PRN (11:45)
[2016-11-09] MEDS ORDERED: DexMEDEtomidine IV DRIP IV STA (11:50)
[2016-11-09] MEDS ORDERED: DILTIAZEM HCL 5 MG/ML 5 ML VIAL IV STA (11:52)
[2016-11-09] MEDS: DexMEDEtomidine HCL INJ 200 MCG in SODIUM CHLORIDE 0.9% 50ML 48 ML IV PRN (12:26)
[2016-11-09] MEDS: CHLORDIAZEPOXIDE 25 MG CAP PO SCH ×2 (13:14→21:25)
[2016-11-09] MEDS: DILTIAZEM HCL 30 MG TAB PO SCH ×2 (13:17→21:25)
--- NOTE | 2016-11-09 16:51 | Progress Note ---
Internal Med Progress Note Date of Service: Nov 09, 2016. Provider Documentation: SUBJECTIVE: The Patient was seen and examined Remains Pleasantly confused OOB in a chair Went into AF with RVR last afternoon OBJECTIVE: Vital Signs-as noted below Exam: General-Pleasantly Confused,generally weak and lethargic Eyes-normal ENT-Normal Neck-supple Lungs-Transmitted sounds and minimal crackles at the bases Heart-Regular,no murmur appreciated Abdomen-Benign,no masses,bowel sound present Extremities-No edema Neuro-drowsy and confused Moving all limbs Lab data as noted below. 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/sedatives, Benzodiazepines Tapering down Diazepam as planned Clonidine is reduced as well Occasional agitation requiring 1 on 1 observation in ICU Remains confused Will need Inpatient rehab Social service is on Board AF with RVR Was on IV Amiodarone and then to Oral Full anticoagulation with Lovenox Rate is controlled Likely not a candidate for intermodal dispatcher anticoagulation DELIRIUM TREMENS -secondary to Alcohol abuse -s/p Extubation -Was on versed and propofol drip -Continue thiamine with higher doses Folic acid and IVF - EEG done showed no seizure activity -Required heavy dose of Benzodiazepines -will try to wean off gradually -Getting Gabapentin and Clonidine -remains confused - PT/OT started at bedside and progress as tolerated 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 and then resumed usual dose Appreciate Psychiatry input Taper down Benzodiazepine -will be a slow process Seroquel started Remains pleasantly confused but improving very slowly PNEUMONIA Likely secondary to Aspiration CXR showed Progression of bibasilar opacities, right greater than left Received Unasyn and Zithromax Has had a bronch done 10/22 Bronchial washings sent for culture and Gram stain, cx growth normal amish Fungal elements, and AFB stain negative D/C Azithromycin on 27 of October Finished the courses of antibiotics Started on Augmentin again for possible aspiration-discontinued Antibiotic course is finished Elevated Liver Enzymes -likely secondary to alcohol abuse -Hepatitis B and C negative -continue monitor liver enzymes-improving Nutrition Getting NGT feeding Ongoing Swallowing evaluation Started on oral diet and tolerating THROMBOCYTOPENIA -secondary to Alcohol abuse and Cirrhosis -platelet improved from 35 to 50-->73 today -no pharmacologic anticoagulation initially -normalized ELEVATED CK LEVEL Likely from recurrent trauma Resolved Electrolytes Imbalance Supplement and Monitor TOBACCO ABUSE -Nicotine patch ordered DVT PROPHYLAXIS: SCDs RE: thrombocytopenia Will consider Heparin irf platelet goes >100 Started on Lovenox CODE STATUS: FULL CODE Consultants: CERTIFIED FRAUD EXAMINER Procedures: Bronchoscopy Family 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 by Garment Sorter Vital Signs: Date Time Temp Pulse Resp B/P (MAP) Pulse Ox O2 Delivery O2 Flow Rate FiO2 11/09/16 13:51 105 19 94/45 (61) Room Air 11/09/16 12:49 107 14 95/66 (76) Room Air 11/09/16 12:27 126 113/79 11/09/16 12:00 Room Air 11/09/16 11:44 123 20 113/79 (90) 11/09/16 11:03 117 16 137/98 (111) 11/09/16 09:36 36.8 126 16 115/76 (89) 11/09/16 08:00 Room Air 11/09/16 08:00 Room Air 11/09/16 07:59 110/81 (91) 11/09/16 07:15 102 20 93 Room Air 11/09/16 07:09 110 13 99/69 (79) 11/09/16 06:00 135 16 Room Air 11/09/16 04:00 121 21 101/62 (75) 94 Room Air 11/09/16 04:00 Room Air 11/09/16 01:00 130 100/60 11/09/16 00:01 36.5 115 17 97/72 (80) 99 Room Air 11/09/16 00:00 Room Air 11/08/16 22:25 131 16 109/69 (82) 11/08/16 20:25 116 20 96 Room Air 11/08/16 20:03 37.1 119 15 134/81 (98) 11/08/16 20:00 Room Air 11/08/16 18:03 100 10 102/83 (89) 11/08/16 17:02 36.6 124 14 125/70 (88) Lab Results: Results Past 24 Hours Test 11/08/16 21:20 11/08/16 22:00 11/09/16 04:59 Range/Units Urine Random Creatinine 210.0 mg/dl Urine Random Sodium 37 mEq/L Troponin I < 0.015 < 0.015 0-0.045 ng/ml White Blood Count 5.98 4.8-10.8 K/uL Red Blood Count 3.76 4.7-6.1 M/uL Hemoglobin 12.0 14.0-18.0 g/dL Hematocrit 35.6 42-52 % Mean Corpuscular Volume 94.7 80-100 fL Mean Corpuscular Hemoglobin 31.9 25-34 pg Mean Corpuscular Hemoglobin Concent 33.7 32-36 g/dl Platelet Count 358 130-400 K/uL Mean Platelet Volume 10.0 7.4-10.4 fL Neutrophils (%) (Auto) 62.9 % Lymphocytes (%) (Auto) 28.1 % Monocytes (%) (Auto) 8.0 % Eosinophils (%) (Auto) 0.2 % Basophils (%) (Auto) 0.3 % Neutrophils # (Auto) 3.76 1.4-6.5 K/uL Lymphocytes # (Auto) 1.68 1.2-3.4 K/uL Monocytes # (Auto) 0.48 0.11-0.59 K/uL Eosinophils # (Auto) 0.01 0-0.5 K/uL Basophils # (Auto) 0.02 0-0.2 K/uL RDW Standard Deviation 45.2 36.4-46.3 fL RDW Coefficient of Variation 13.1 11.5-14.5 % Immature Granulocyte % (Auto) 0.5 % Immature Granulocyte # (Auto) 0.03 0.00-0.02 K/uL Sodium Level 147 136-145 mmol/L Potassium Level 3.9 3.5-5.1 mmol/L Chloride Level 111 98-107 mmol/L Carbon Dioxide Level 31 21-32 mmol/L Anion Gap 5.0 3-11 mmol/L Blood Urea Nitrogen 7 7-18 mg/dl Creatinine 0.68 0.60-1.40 mg/dl Est Creatinine Clear Calc Drug Dose 136.6 ml/min Estimated GFR () 124.6 Estimated GFR (Non- 107.5 BUN/Creatinine Ratio 10.4 10-20 Random Glucose 104 70-99 mg/dl Calcium Level 8.8 8.5-10.1 mg/dl Phosphorus Level 3.7 2.5-4.9 mg/dl Magnesium Level 2.2 1.8-2.4 mg/dl Microbiology Results 11/08/16 Blood Culture, Received Pending
[2016-11-09] MEDS ORDERED: [UNRECOGNIZED DRUG - REMARK] ONE (21:00)
[2016-11-09] MEDS: AMIODARONE 200 MG TAB PO SCH (21:21)
[2016-11-09] MEDS: ENOXAPARIN 80 MG/0.8 ML SYR SQ SCH (21:22)
[2016-11-10] VITALS (32 sets, daily range): BP systolic 95–142; BP diastolic 73–104; PULSE 62–96; TEMP 36.7; O2SAT 92–97
[2016-11-10] MEDS: DexMEDEtomidine HCL INJ 200 MCG in SODIUM CHLORIDE 0.9% 50ML 48 ML IV PRN ×2 (00:50→01:10)
[2016-11-10] MEDS: CLONIDINE HCL 0.1 MG TAB PO SCH ×4 (03:00→19:36)
[2016-11-10] MEDS: SODIUM CHLORIDE 0.45% 1000ML 1,000 ML IV SCH (04:00)
[2016-11-10] MEDS ORDERED: DexMEDEtomidine HCL INJ 400 MCG in SODIUM CHLORIDE 0.9% 100ML 96 ML IV PRN (04:30)
[2016-11-10] MEDS ORDERED: SODIUM CHLORIDE 0.9% IV PRN (04:30)
[2016-11-10] MEDS ORDERED: DEXMEDETOMIDINE HCL IV PRN (04:30)
[2016-11-10 06:36] LABS: BASO % 0.2 %; BASO ABS # 0.01 K/uL (0-0.2); COMPLETE YES; EOS % 0.9 %; HEMATOCRIT 34.9 % (42-52); IG% 0.4 %; LYMPH % 42.6 %; LYMPH ABS # 1.96 K/uL (1.2-3.4); MEAN CELL VOLUME 94.6 fL (80-100); MEAN CORPUSCULAR HEMOGLOBIN 31.4 pg (25-34); MEAN CORPUSCULAR HGB CONC 33.2 g/dl (32-36); MONO % 8.9 %; PLATELET COUNT 279 K/uL (130-400); RED BLOOD COUNT 3.69 M/uL (4.7-6.1)
[2016-11-10 06:50] LABS: BUN/CREATININE RATIO 9.5 (10-20); CALCIUM 8.5 mg/dl (8.5-10.1); CREATININE 0.51 mg/dl (0.60-1.40); POTASSIUM 3.7 mmol/L (3.5-5.1)
[2016-11-10] MEDS: NICOTINE 21 MG/24 HR TDSY TD SCH (07:54)
[2016-11-10] MEDS: DILTIAZEM HCL 30 MG TAB PO SCH ×3 (07:56→19:40)
[2016-11-10] MEDS: AMIODARONE 200 MG TAB PO SCH ×2 (07:59→19:37)
[2016-11-10] MEDS: POTASSIUM CHLORIDE 20 MEQ/15 ML UDC NG SCH (08:01)
[2016-11-10] MEDS ORDERED: CHLORDIAZEPOXIDE 25 MG CAP ONE (08:06)
[2016-11-10] MEDS: CHLORDIAZEPOXIDE 25 MG CAP PO SCH (08:09)
[2016-11-10] MEDS: DOCUSATE SODIUM 100 MG/10 ML UDC PO SCH ×2 (08:10→19:36)
[2016-11-10] MEDS: POLYETHYLENE (MIRALAX) 17 GM PACK PO SCH (08:11)
[2016-11-10] MEDS: SENNA 17.6 MG/10 ML UDP PO SCH (08:11)
[2016-11-10] MEDS: MULTIVITAMINS W/MINERALS 15ML UDP PO SCH (08:11)
[2016-11-10] MEDS: THIAMINE HCL 100 MG TAB PO SCH (08:11)
[2016-11-10] MEDS: DIVALPROEX SODIUM SPRINKLE 125 MG CAP PO SCH ×3 (08:13→19:38)
[2016-11-10] MEDS: CHOLECALCIFEROL 1000 INTER.UNIT TAB PO SCH (08:13)
[2016-11-10] MEDS: GABAPENTIN 600 MG TAB PO SCH ×4 (08:13→19:39)
[2016-11-10] MEDS: ENOXAPARIN 80 MG/0.8 ML SYR SQ SCH ×2 (08:31→19:39)
[2016-11-10] MEDS: TRIAMCINOLONE ACET 0.025% CR 15 GM TUBE EXT SCH ×2 (08:32→19:35)
--- NOTE | 2016-11-10 13:13 | Progress Note ---
Internal Med Progress Note Date of Service: Nov 10, 2016. Provider Documentation: SUBJECTIVE: The Patient was seen and examined Remains confused OOB in a chair Went into AF with RVR last afternoon Rate is controlled OBJECTIVE: Vital Signs-as noted below Exam: General-Pleasantly Confused,generally weak and lethargic Eyes-normal ENT-Normal Neck-supple Lungs-Transmitted sounds and minimal crackles at the bases Heart-Regular,no murmur appreciated Abdomen-Benign,no masses,bowel sound present Extremities-No edema Neuro-drowsy and confused Moving all limbs Lab data as noted below. 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, Benzodiazepines Tapering down Diazepam as planned Clonidine is reduced as well Occasional agitation requiring 1 on 1 observation in ICU Remains confused Will need Inpatient rehab Social service is on Board Continue to taper Benzo AF with RVR Was on IV Amiodarone and then to Oral Full anticoagulation with Lovenox Rate is controlled Likely not a candidate for senior care anticoagulation Started on oral Amiodarone and Cardizem-rate controlled DELIRIUM TREMENS -secondary to Alcohol abuse -s/p Extubation -Was on versed and propofol drip -Continue thiamine with higher doses Folic acid and IVF - EEG done showed no seizure activity -Required heavy dose of Benzodiazepines -will try to wean off gradually -Getting Gabapentin and Clonidine -remains confused - PT/OT started at bedside and progress as tolerated 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 and then resumed usual dose Appreciate Psychiatry input Taper down Benzodiazepine -will be a slow process Seroquel started Remains pleasantly confused but improving very slowly PNEUMONIA Likely secondary to Aspiration CXR showed Progression of bibasilar opacities, right greater than left Received Unasyn and Zithromax Has had a bronch done 10/22 Bronchial washings sent for culture and Gram stain, cx growth normal amish Fungal elements, and AFB stain negative D/C Azithromycin on 27 of October Finished the courses of antibiotics Started on Augmentin again for possible aspiration-discontinued Antibiotic course is finished Elevated Liver Enzymes -likely secondary to alcohol abuse -Hepatitis B and C negative -continue monitor liver enzymes-improving Nutrition Getting NGT feeding Ongoing Swallowing evaluation Started on oral diet and tolerating THROMBOCYTOPENIA -secondary to Alcohol abuse and Cirrhosis -platelet improved from 35 to 50-->73 today -no pharmacologic anticoagulation initially -normalized ELEVATED CK LEVEL Likely from recurrent trauma Resolved Electrolytes Imbalance Supplement and Monitor TOBACCO ABUSE -Nicotine patch ordered DVT PROPHYLAXIS: SCDs RE: thrombocytopenia Will consider Heparin irf platelet goes >100 Started on Lovenox CODE STATUS: FULL CODE 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 Procedures: Bronchoscopy Family 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 by Fourth Officer Vital Signs: Date Time Temp Pulse Resp B/P (MAP) Pulse Ox O2 Delivery O2 Flow Rate FiO2 11/10/16 12:15 Room Air 11/10/16 10:01 88 23 114/76 (89) 11/10/16 10:00 87 20 134/ (44) 11/10/16 08:28 77 18 118/84 (95) 96 Room Air 11/10/16 08:00 Room Air 11/10/16 08:00 Room Air 11/10/16 08:00 75 21 11/10/16 07:03 73 11/10/16 07:00 74 16 11/10/16 05:01 64 14 141/95 (110) 11/10/16 04:01 62 19 142/91 (108) 11/10/16 04:00 63 15 92 11/10/16 04:00 Room Air 11/10/16 03:01 65 14 141/89 (106) 11/10/16 02:01 66 14 140/94 (109) 11/10/16 02:00 65 14 93 11/10/16 01:34 66 14 132/88 (103) 11/10/16 01:19 71 19 130/104 (113) 11/10/16 00:01 67 13 116/80 (92) 92 11/10/16 00:00 68 14 92 11/09/16 23:59 Room Air 11/09/16 22:16 73 14 116/75 (89) 91 Room Air 11/09/16 20:00 Room Air 11/09/16 20:00 37.0 71 16 85/44 (58) 94 Room Air 11/09/16 18:24 92 12 88/60 (69) 11/09/16 18:08 84 14 83/52 (62) 11/09/16 16:03 36.9 98 16 100/64 (76) 95 Room Air 11/09/16 16:00 Room Air 11/09/16 13:51 105 19 94/45 (61) Room Air Lab Results: Results Past 24 Hours Test 11/10/16 05:45 Range/Units White Blood Count 4.60 4.8-10.8 K/uL Red Blood Count 3.69 4.7-6.1 M/uL Hemoglobin 11.6 14.0-18.0 g/dL Hematocrit 34.9 42-52 % Mean Corpuscular Volume 94.6 80-100 fL Mean Corpuscular Hemoglobin 31.4 25-34 pg Mean Corpuscular Hemoglobin Concent 33.2 32-36 g/dl Platelet Count 279 130-400 K/uL Mean Platelet Volume 10.0 7.4-10.4 fL Neutrophils (%) (Auto) 47.0 % Lymphocytes (%) (Auto) 42.6 % Monocytes (%) (Auto) 8.9 % Eosinophils (%) (Auto) 0.9 % Basophils (%) (Auto) 0.2 % Neutrophils # (Auto) 2.16 1.4-6.5 K/uL Lymphocytes # (Auto) 1.96 1.2-3.4 K/uL Monocytes # (Auto) 0.41 0.11-0.59 K/uL Eosinophils # (Auto) 0.04 0-0.5 K/uL Basophils # (Auto) 0.01 0-0.2 K/uL RDW Standard Deviation 45.1 36.4-46.3 fL RDW Coefficient of Variation 13.1 11.5-14.5 % Immature Granulocyte % (Auto) 0.4 % Immature Granulocyte # (Auto) 0.02 0.00-0.02 K/uL Sodium Level 149 136-145 mmol/L Potassium Level 3.7 3.5-5.1 mmol/L Chloride Level 114 98-107 mmol/L Carbon Dioxide Level 30 21-32 mmol/L Anion Gap 5.0 3-11 mmol/L Blood Urea Nitrogen 5 7-18 mg/dl Creatinine 0.51 0.60-1.40 mg/dl Est Creatinine Clear Calc Drug Dose 182.2 ml/min Estimated GFR () 140.3 Estimated GFR (Non- 121.0 BUN/Creatinine Ratio 9.5 10-20 Random Glucose 104 70-99 mg/dl Calcium Level 8.5 8.5-10.1 mg/dl
[2016-11-10] MEDS: CHLORDIAZEPOXIDE 10 MG CAP PO SCH ×2 (15:20→19:40)
--- NOTE | 2016-11-10 15:23 | Critical Care Progress Note ---
Critical Care Progress Note Date of Service Nov 10, 2016. ICU Day ICU Day Number: [address] Aston Singer The patient was admitted with ETOH withdrawal complicated by aspiration pneumonia and respiratory failure necessitating MV. he was successfully extubated and we were weaning down his valium and clonidine. He was changed to librium yesterday and clonidine is stopped. he became impulsive 11/08/16 and went into A fib with RVR up to 160s. Metoprolol was given. 10 mg in total. he dropped his BP. He responded to a 500 ml bolus of NS then we started amiodarone. He then received 10 mg cardizem and the combination controlled his rate down to <110. He denied light headedness dizziness, CP SOB during this episode and denied feeling palpitation. On 11/09 he was very agitated and we needed to start precedex. That calmed him down significantly and today he went back to sinus rhythm. He denies any comlpaints and keeps saying he wants to go home. Objective General Appearance: calm, comfortable Head: normocephalic,excoriation on the nose and face Neck: trachea midline, no stridor, no JVD Respiratory: clear to auscultation, no added sounds or wheezing Cardiovascular: normal S1S2, no added sounds or murmurs Abdomen: non tender, normal bowel sounds, no rebound Upper Extremities: other (multiple ecchymoses of varying age) Lower Extremities: no edema, no deformity, other (multiple ecchymoses of varying age), no calf tenderness Neuro: Moves all 4 extremities when lightening sedation, Alert to person only, CAM ICU positive Current SOFA Score SOFA Score Response (Comments) Value Platelets (x10) > 150 0 Bilirubin (mg/dL) < 1.2 0 [place] Coma Score 13 - 14 1 Level of Hypotension No Hypotension 0 Creatinine (mg/dL) < 1.2 0 Total 1 Previous SOFA Scores 1 on 11/07/2016 Assessment & Plan (1) History of traumatic brain injury (2) Alcohol withdrawal (3) Multiple contusions (4) Tobacco abuse (5) Alcohol abuse (1) History of traumatic brain injury (2) Alcohol withdrawal (3) Multiple contusions (4) Tobacco abuse (5) Alcohol abuse 1) History of traumatic brain injury (2) Alcohol withdrawal (3) Multiple contusions (4) Tobacco abuse (5) Alcohol abuse (6) Wernicke-Korsakoff syndrome (7) Malnutrition related to chronic disease (9) anemia likely secondary to malnutrition NEUROLOGICAL - GCS: 14 Eyes: 4; Verbal: 4; Motor 6 Depakote: 675 milligrams every 8 hours IV which is total daily dose of 25 mg/kg (Depakote level LII low and normal, DEpakote level within normal at 72 Strict sleep hygiene librium 25 Q8 then 20 Q8 then 10 and then stop got intermittent precedex drip 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 Korsakoff psychosis. 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 GEOVANNY) better than yesterday - HR 90-110 A fib irreg irreg Amiodarone d200 mg BID with level of TSH on 10/20/2016 0.85 Hypertension -decreased Clonidine to 0.1mg today but held it overnight given low BP metoprolol PRN for A fib will need full dose anticoagulation However, he is at risk of self injury and falls with history of multiple brain trauma. Will use 80 mg BID lovenox as long as he is in house. However, if he does not revert to sinus rhythm we may need to stop it as outpatient given frequent falls TBI RESPIRATORY - RR: 16-18 SpO2: 94% on room air - Albuterol nebulizers scaled back to PRN only GASTROINTESTINAL - Diet: he passed a Swallow evaluation and we started oral diet. - Bowel regimen: Colace, Senna, Dulcolax Chronic Malnutrition - 2/2 chronic alcohol abuse, Continue Thiamine, Continue Folate 1 mg qAM, Continue Multivitamin daily RENAL//ENDOCRINE - Fluid Balance is unreliable as he is urinating in the bed and not all the output is accouted for. Will repeat FENA Will FU and replete lytes endocrine - BS-110, stable; no indications for insulin - Patient has not been hyperglycemic nor hypoglycemic will change blood glucose checks to when necessary NFECTIOUS DISEASES - Tmax: Afebrile WBC: <5 will monitor - DVT Prophylaxis: on therapeutic dose for A fib LINES/IV ACCESS peripheral IV CODE STATUS - Full Code DISPOSITION - OT/PT: Ordered - ICU due extreme intermittent agitation. He will need transfer to a skilled facility soon. But for now will monitor in MICU given the new A fib with RVR I spent 42 minutes of CC time managing the patient Consults & Procedures Consultants: Mental health Procedures: Endotracheal intubation 10/20/2016 Bronchoscopy 10/22/2016 CT PE negative on 11/03/2016 Data Medications: Current Inpatient Medications Medications (Trade) Dose Ordered Sig/Rica Route Start Time Stop Time Status Last Admin Dose Admin Acetaminophen (Tylenol Tab) 650 mg Q4H PRN PO 10/20/16 16:00 11/19/16 15:59 Ondansetron HCl (Zofran Inj) 4 mg Q6H PRN IV 10/20/16 16:00 11/19/16 15:59 10/20/16 19:31 4 MG Lorazepam (Ativan Inj) PRN Dosing -Active Protocol Q1H PRN IV 10/20/16 16:00 11/19/16 15:59 Future Hold 11/02/16 05:54 2 MG Multivitamins Therapeutic (Cerovite Liquid) 15 ml QAM PO 10/21/16 09:00 11/20/16 08:59 11/10/16 08:11 15 ML Folic Acid (Folvite Tab) 1 mg QAM PO 10/21/16 09:00 11/20/16 08:59 11/10/16 08:11 1 MG Polyethylene (Miralax Powder Packet) 17 gm QAM PO 10/23/16 09:00 11/22/16 08:59 11/10/16 08:11 17 GM Docusate Sodium (coLACE SYRUP) 100 mg BID PO 10/23/16 09:00 11/22/16 08:59 11/10/16 08:10 100 MG Heparin Sodium (Porcine) (Heparin 10 Unit/ ml 5 ml Flush) 5 ml PRN PRN FLUSH 10/24/16 01:45 11/23/16 01:44 10/31/16 13:16 10 ML Bisacodyl (Dulcolax Supp) 10 mg DAILY PRN SD 10/27/16 09:00 11/26/16 08:59 10/29/16 07:16 10 MG Cholecalciferol (Vitamin D Tab) 2,000 inter.unit DAILY PO 10/27/16 14:30 11/26/16 14:29 11/10/16 08:13 2,000 INTER.UNIT Senna (Senokot Syrup) 17.6 mg QAM PO 10/29/16 09:00 11/28/16 08:59 11/10/16 08:11 17.6 MG Triamcinolone Acetonide (Kenalog 0.025% Crm) 1 appln BID EXT 10/29/16 21:00 11/28/16 20:59 11/10/16 08:32 1 APPLN Albuterol/ Ipratropium (Duoneb) 3 ml Q6H PRN INH 10/30/16 10:00 11/29/16 09:59 Magnesium Oxide (Mag-Ox Tab) 400 mg DAILY PO 11/01/16 09:00 12/01/16 08:59 Future Hold 11/02/16 07:50 400 MG Potassium Chloride (Lakeisha Ciel Elix) 60 meq QAM NG 11/03/16 09:49 12/03/16 09:48 11/10/16 08:01 60 MEQ Gabapentin (Neurontin Tab) 600 mg QID PO 11/07/16 17:00 12/07/16 16:59 11/10/16 12:52 600 MG Divalproex Sodium (Depakote Sprinkle Cap) 625 mg TID PO 11/07/16 14:00 12/07/16 13:59 11/10/16 12:58 625 MG Nicotine (Nicoderm Cq 21MG Patch) 1 patch QAM TD 11/07/16 19:30 12/07/16 19:29 11/10/16 07:54 1 PATCH Miscellaneous (Remove Nicoderm Patch) 1 ea HS N/A 11/07/16 21:00 12/07/16 20:59 11/09/16 21:20 1 EA Clonidine HCl (Catapres Tab) 0.1 mg Q6H PO 11/08/16 09:00 12/08/16 08:59 Future hold 11/10/16 12:53 0.1 MG Enoxaparin Sodium (Lovenox Inj) 80 mg Q12 SQ 11/09/16 21:00 11/24/16 08:59 11/10/16 08:31 80 MG Thiamine HCl (Vitamin B-1 Tab) 200 mg QAM PO 11/10/16 09:00 12/08/16 08:59 11/10/16 08:11 200 MG Amiodarone HCl (Cordarone Tab) 200 mg BID PO 11/09/16 21:00 12/09/16 20:59 11/10/16 07:59 200 MG Metoprolol Tartrate (Lopressor Iv) 5 mg Q6 PRN IV 11/09/16 09:30 12/09/16 09:29 11/09/16 12:27 5 MG Chlordiazepoxide (Librium Cap) 20 mg Q8 PO 11/10/16 14:00 11/11/16 06:01 Chlordiazepoxide (Librium Cap) 10 mg Q8 PO 11/11/16 14:00 11/12/16 06:01 Lorazepam (Ativan Inj) 2 mg Q6 PRN IV 11/09/16 11:45 12/09/16 11:44 11/10/16 00:57 2 MG Diltiazem HCl (Cardizem Tab) 30 mg Q8 PO 11/09/16 14:00 12/09/16 13:59 11/10/16 07:56 30 MG Dexmedetomidine HCl 400 mcg/ Sodium Chloride 100 ml @ 0 mls/hr Q0M PRN IV 11/10/16 04:30 11/14/16 04:29 I & O: 24-Hour Column 11/11/16 08:00 Intake Total 500 ml Output Total 450 ml Balance 50 ml Vital Signs: Date Time Temp Pulse Resp B/P (MAP) Pulse Ox O2 Delivery O2 Flow Rate FiO2 11/10/16 12:30 36.7 91 17 11/10/16 12:15 Room Air 11/10/16 12:04 91 20 108/73 (85) 96 Room Air 11/10/16 11:30 91 14 11/10/16 10:30 91 18 11/10/16 10:01 88 23 114/76 (89) 11/10/16 10:00 87 20 134/ (44) 11/10/16 08:28 77 18 118/84 (95) 96 Room Air 11/10/16 08:00 Room Air 11/10/16 08:00 Room Air 11/10/16 08:00 75 21 11/10/16 07:03 73 11/10/16 07:00 74 16 11/10/16 05:01 64 14 141/95 (110) 11/10/16 04:01 62 19 142/91 (108) 11/10/16 04:00 63 15 92 11/10/16 04:00 Room Air 11/10/16 03:01 65 14 141/89 (106) 11/10/16 02:01 66 14 140/94 (109) 11/10/16 02:00 65 14 93 11/10/16 01:34 66 14 132/88 (103) 11/10/16 01:19 71 19 130/104 (113) 11/10/16 00:01 67 13 116/80 (92) 92 11/10/16 00:00 68 14 92 11/09/16 23:59 Room Air 11/09/16 22:16 73 14 116/75 (89) 91 Room Air 11/09/16 20:00 Room Air 11/09/16 20:00 37.0 71 16 85/44 (58) 94 Room Air 11/09/16 18:24 92 12 88/60 (69) 11/09/16 18:08 84 14 83/52 (62) 11/09/16 16:03 36.9 98 16 100/64 (76) 95 Room Air 11/09/16 16:00 Room Air Laboratory Results: Last 24 Hours Test 11/10/16 05:45 White Blood Count 4.60 K/uL Red Blood Count 3.69 M/uL Hemoglobin 11.6 g/dL Hematocrit 34.9 % Mean Corpuscular Volume 94.6 fL Mean Corpuscular Hemoglobin 31.4 pg Mean Corpuscular Hemoglobin Concent 33.2 g/dl Platelet Count 279 K/uL Mean Platelet Volume 10.0 fL Neutrophils (%) (Auto) 47.0 % Lymphocytes (%) (Auto) 42.6 % Monocytes (%) (Auto) 8.9 % Eosinophils (%) (Auto) 0.9 % Basophils (%) (Auto) 0.2 % Neutrophils # (Auto) 2.16 K/uL Lymphocytes # (Auto) 1.96 K/uL Monocytes # (Auto) 0.41 K/uL Eosinophils # (Auto) 0.04 K/uL Basophils # (Auto) 0.01 K/uL RDW Standard Deviation 45.1 fL RDW Coefficient of Variation 13.1 % Immature Granulocyte % (Auto) 0.4 % Immature Granulocyte # (Auto) 0.02 K/uL Sodium Level 149 mmol/L Potassium Level 3.7 mmol/L Chloride Level 114 mmol/L Carbon Dioxide Level 30 mmol/L Anion Gap 5.0 mmol/L Blood Urea Nitrogen 5 mg/dl Creatinine 0.51 mg/dl Est Creatinine Clear Calc Drug Dose 182.2 ml/min Estimated GFR () 140.3 Estimated GFR (Non- 121.0 BUN/Creatinine Ratio 9.5 Random Glucose 104 mg/dl Calcium Level 8.5 mg/dl Problem Qualifiers (1) Alcohol withdrawal: Complication of substance-induced condition: with delirium Qualified Codes: F10.231 - Alcohol dependence with withdrawal delirium
--- NOTE | 2016-11-10 16:58 | Psychiatric Consultation ---
Psychiatric Consultation Date of Service: Nov 10, 2016. contacted by wellhead pumper to re-review case as patient's delirium is improved and he is able to have meaningful conversation. Desired clarification re: level of care recs. Patient was initially seen on 11/01/16 with clear delirium and escalated to requiring a ICU/percedex drip, as recently as 11/09 he was threatening to harm staff and thought he was at home and wanted to go out for a beer. Currently on Librium with plan to taper. He has had clear periods of confusion during which he has been combative at times. Breakthrough agitation appears to have generally responded to prn benzos. He has also required amiodarone drip for afib. There was apparently some concern that he may require extended nursing care for possible Korsakoff's psychosis which is difficult to diagnosis in setting of acute delirium. For example thinking his blankets were pizza dough. Mr. Pichardo states that he relapsed on ETOH about 6 months ago after several years of sobriety. 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 He notes support from a sister and his girlfriend. He doesn't identify any specific trigger for his relapse and denies depression and anxiety at baseline. 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 He attends to [address] acres of property around him home and states he currently misses his beagle dog. Past psych hx: denies, denies prior DTs or rehab. Denies suicide attempts. PMHx: afib, complicated medical course with aspiration pneumonia as per medical chart family psych/substance abuse hx: denies soc hx: unreliable historian, relates 3 months correction time with loss of license about 1 year ago. He will not quantify his ETOH use prior to hospitalization. He denies MJ or other drug use. MSE: alert, oriented to self, knows he's in hospital but believes that he can leave, go home. Denies SI/HI/jiménez. Thoughts somewhat tangential/disorganized but answers most questions appropriately and appears bright. In chair with some chin tremor, minimal hand tremor. Full cerebellar testing not performed. Did not appear to have resting nystagmus. No evidence of aphasia as delirium resolves. Imp: ETOH dependence with complicated with withdrawal delirium with concerns about some degree of underlying/persistent encephalopathy. 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 Although he is not acutely suicidal, it would be important to confirm his history with family and also discuss securing given likelihood of relapse with AMS. He is agreeable to sign release and liaison was notified to follow up on this. His current gait and minor speech issues likely related to ongoing benzodiazepines so in that sense his delirium is continuing to resolve, ie should not be allowed to sign out AMA at this time as still altered. There is currently no indication for inpatient psychiatric hospitalization. He states that he is unwilling to go to rehab but would resume AA. He states he can't do 90 in 90. His amenability to substance use treatment should be monitored as his delirium clears but I suspect he will continue to refuse services stating "I'll never drink again". I have no additional medication recs at this time, as able to taper benzos could consider Neurontin at the point he is ready to return home as I suspect his withdrawal will be prolonged and may be helpful with regards to relapse. I would not suggest agents like Revia, Vivitrol etc to support sobriety outside of him being involved in a structured outpatient treatment program which he is currently refusing.
[2016-11-11] VITALS (17 sets, daily range): BP systolic 97–114; BP diastolic 58–78; PULSE 68–97; TEMP 36.6–36.9; O2SAT 95–100
[2016-11-11] MEDS: CLONIDINE HCL 0.1 MG TAB PO SCH ×2 (02:15→07:58)
[2016-11-11] MEDS: DILTIAZEM HCL 30 MG TAB PO SCH ×3 (05:41→19:48)
[2016-11-11] MEDS: CHLORDIAZEPOXIDE 10 MG CAP PO SCH (05:41)
[2016-11-11 05:54] LABS: BASO % 0.1 %; BASO ABS # 0.01 K/uL (0-0.2); COMPLETE YES; EOS % 0.5 %; HEMATOCRIT 34.2 % (42-52); IG% 0.3 %; LYMPH % 23.1 %; MEAN CELL VOLUME 93.7 fL (80-100); MEAN PLATELET VOLUME 9.8 fL (7.4-10.4); MONO % 10.5 %; NEUT % 65.5 %; PLATELET COUNT 292 K/uL (130-400); RED BLOOD COUNT 3.65 M/uL (4.7-6.1); WHITE BLOOD COUNT 7.36 K/uL (4.8-10.8)
[2016-11-11 06:28] LABS: BUN/CREATININE RATIO 6.6 (10-20); CALCIUM 8.4 mg/dl (8.5-10.1); CREATININE 0.57 mg/dl (0.60-1.40); POTASSIUM 3.6 mmol/L (3.5-5.1)
[2016-11-11 06:29] LABS: PHOSPHORUS 4.1 mg/dl (2.5-4.9)
[2016-11-11] MEDS: TRIAMCINOLONE ACET 0.025% CR 15 GM TUBE EXT SCH ×2 (07:55→19:44)
[2016-11-11] MEDS: POTASSIUM CHLORIDE 20 MEQ/15 ML UDC NG SCH (07:57)
[2016-11-11] MEDS: MULTIVITAMINS W/MINERALS 15ML UDP PO SCH (07:58)
[2016-11-11] MEDS: DOCUSATE SODIUM 100 MG/10 ML UDC PO SCH ×2 (07:59→19:45)
[2016-11-11] MEDS: AMIODARONE 200 MG TAB PO SCH ×2 (07:59→19:46)
[2016-11-11] MEDS: DIVALPROEX SODIUM SPRINKLE 125 MG CAP PO SCH ×3 (08:00→19:47)
[2016-11-11] MEDS: POLYETHYLENE (MIRALAX) 17 GM PACK PO SCH (08:01)
[2016-11-11] MEDS: GABAPENTIN 600 MG TAB PO SCH ×4 (08:01→19:47)
[2016-11-11] MEDS: THIAMINE HCL 100 MG TAB PO SCH (08:02)
[2016-11-11] MEDS: SENNA 17.6 MG/10 ML UDP PO SCH (08:02)
[2016-11-11] MEDS: NICOTINE 21 MG/24 HR TDSY TD SCH (08:03)
[2016-11-11] MEDS: ENOXAPARIN 80 MG/0.8 ML SYR SQ SCH ×2 (08:03→19:47)
[2016-11-11] MEDS: CHOLECALCIFEROL 1000 INTER.UNIT TAB PO SCH (08:03)
--- NOTE | 2016-11-11 13:51 | Critical Care Progress Note ---
Critical Care Progress Note Date of Service Nov 11, 2016. ICU Day ICU Day Number: [address] Aston Singer The patient was admitted with ETOH withdrawal complicated by aspiration pneumonia and respiratory failure necessitating MV. he was successfully extubated and we were weaning down his valium and clonidine. He was changed to librium yesterday and clonidine is stopped. He developed A fib with RVR this week and reverted to sinus rhythm with amiodarone and is on anticoagulation. He needs precedex at night but is calmer in the day. No compliants except he wants to go home. I told him he will be going to [place] first. he likes his prolonged walks in the afternoon with his sitter Ulises. Updated sister bedside in the evening yesterday She offered me the number lui Schultzndy Debra who is a [employer] employee and was trying to help the patient with a case presided over by judge Jolene Preston Yadira's number is [phone] Objective General Appearance: calm, comfortable Head: normocephalic,excoriation on the nose and face Neck: trachea midline, no stridor, no JVD Respiratory: clear to auscultation, no added sounds or wheezing Cardiovascular: normal S1S2, no added sounds or murmurs Abdomen: non tender, normal bowel sounds, no rebound Extremities: other (multiple ecchymoses of varying age) Neuro: Moves all 4 extremities when lightening sedation, Alert to person only, CAM ICU positive Current SOFA Score SOFA Score Response (Comments) Value Platelets (x10) > 150 0 Bilirubin (mg/dL) < 1.2 0 [place] Coma Score 13 - 14 1 Level of Hypotension No Hypotension 0 Creatinine (mg/dL) < 1.2 0 Total 1 Previous SOFA Scores 1 on 11/07/2016 Assessment & Plan (1) History of traumatic brain injury (2) Alcohol withdrawal (3) Multiple contusions (4) Tobacco abuse (5) Alcohol abuse 1) History of traumatic brain injury (2) Alcohol withdrawal (3) Multiple contusions (4) Tobacco abuse (5) Alcohol abuse 1) History of traumatic brain injury (2) Alcohol withdrawal (3) Multiple contusions (4) Tobacco abuse (5) Alcohol abuse (6) Wernicke-Korsakoff syndrome (7) Malnutrition related to chronic disease (9) anemia likely secondary to malnutrition NEUROLOGICAL - GCS: 14 Eyes: 4; Verbal: 4; Motor 6 Depakote: 675 milligrams every 8 hours IV which is total daily dose of 25 mg/kg (Depakote level LII low and normal, DEpakote level within normal at 76 Strict sleep hygiene librium 10 mg Q8 and then stop got intermittent precedex drip 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 Korsakoff psychosis. CARDIOVASCULAR MAP and HR stable he is back to sinus rhythm Amiodarone d200 mg BID with level of TSH on 10/20/2016 0.85 Hypertension DC clonidine metoprolol PRN for A fib cardizem 30 mg PO Q8 will need full dose anticoagulation However, he is at risk of self injury and falls with history of multiple brain trauma. Will use 80 mg BID lovenox as long as he is in house. However, if he does not revert to sinus rhythm we may need to stop it as outpatient given frequent falls TBI RESPIRATORY saturates well on RA Albuterol nebulizers scaled back to PRN only GASTROINTESTINAL - Diet:heart healthy - Bowel regimen: Colace, Senna, Dulcolax Chronic Malnutrition - 2/2 chronic alcohol abuse, Continue Thiamine, Continue Folate 1 mg qAM, Continue Multivitamin daily Mg O daily RENAL//ENDOCRINE - Fluid Balance is unreliable as he is urinating in the bed and not all the output is accouted for. Will repeat FENA Will FU and replete lytes endocrine - BS-110, stable; no indications for insulin - Patient has not been hyperglycemic nor hypoglycemic will change blood glucose checks to when necessary NFECTIOUS DISEASES - Tmax: Afebrile WBC: <5 will monitor - DVT Prophylaxis: on therapeutic dose for A fib LINES/IV ACCESS peripheral IV CODE STATUS - Full Code. he awaits placement in a skilled facility DISPOSITION - OT/PT: Ordered - ICU due extreme intermittent agitation. He will need transfer to a skilled facility soon. But for now will monitor in MICU given the new A fib with RVR I spent 40 minutes of CC time managing the patient Consults & Procedures Consultants: Mental health Procedures: Endotracheal intubation 10/20/2016 Bronchoscopy 10/22/2016 CT PE negative on 11/03/2016 Consults & Procedures Consultants: Mental health Procedures: Endotracheal intubation 10/20/2016 Bronchoscopy 10/22/2016 CT PE negative on 11/03/2016 Data Medications: Current Inpatient Medications Medications (Trade) Dose Ordered Sig/Rica Route Start Time Stop Time Status Last Admin Dose Admin Acetaminophen (Tylenol Tab) 650 mg Q4H PRN PO 10/20/16 16:00 11/19/16 15:59 Ondansetron HCl (Zofran Inj) 4 mg Q6H PRN IV 10/20/16 16:00 11/19/16 15:59 10/20/16 19:31 4 MG Lorazepam (Ativan Inj) PRN Dosing -Active Protocol Q1H PRN IV 10/20/16 16:00 11/19/16 15:59 Future Hold 11/02/16 05:54 2 MG Multivitamins Therapeutic (Cerovite Liquid) 15 ml QAM PO 10/21/16 09:00 11/20/16 08:59 11/11/16 07:58 15 ML Folic Acid (Folvite Tab) 1 mg QAM PO 10/21/16 09:00 11/20/16 08:59 11/11/16 08:01 1 MG Polyethylene (Miralax Powder Packet) 17 gm QAM PO 10/23/16 09:00 11/22/16 08:59 11/11/16 08:01 17 GM Docusate Sodium (coLACE SYRUP) 100 mg BID PO 10/23/16 09:00 11/22/16 08:59 11/11/16 07:59 100 MG Heparin Sodium (Porcine) (Heparin 10 Unit/ ml 5 ml Flush) 5 ml PRN PRN FLUSH 10/24/16 01:45 11/23/16 01:44 10/31/16 13:16 10 ML Bisacodyl (Dulcolax Supp) [address] 10/27/16 09:00 11/26/16 08:59 10/29/16 07:16 10 MG Cholecalciferol (Vitamin D Tab) 2,000 inter.unit DAILY PO 10/27/16 14:30 11/26/16 14:29 11/11/16 08:03 2,000 INTER.UNIT Senna (Senokot Syrup) 17.6 mg QAM PO 10/29/16 09:00 11/28/16 08:59 11/11/16 08:02 17.6 MG Triamcinolone Acetonide (Kenalog 0.025% Crm) 1 appln BID EXT 10/29/16 21:00 11/28/16 20:59 11/11/16 07:55 1 APPLN Albuterol/ Ipratropium (Duoneb) 3 ml Q6H PRN INH 10/30/16 10:00 11/29/16 09:59 Magnesium Oxide (Mag-Ox Tab) 400 mg DAILY PO 11/01/16 09:00 12/01/16 08:59 Future Hold 11/02/16 07:50 400 MG Potassium Chloride (Lakeisha Ciel Elix) 60 meq QAM NG 11/03/16 09:49 12/03/16 09:48 11/11/16 07:57 60 MEQ Gabapentin (Neurontin Tab) 600 mg QID PO 11/07/16 17:00 12/07/16 16:59 11/11/16 08:01 600 MG Divalproex Sodium (Depakote Sprinkle Cap) 625 mg TID PO 11/07/16 14:00 12/07/16 13:59 11/11/16 08:00 625 MG Nicotine (Nicoderm Cq 21MG Patch) 1 patch QAM TD 11/07/16 19:30 12/07/16 19:29 11/11/16 08:03 1 PATCH Miscellaneous (Remove Nicoderm Patch) 1 ea HS N/A 11/07/16 21:00 12/07/16 20:59 11/10/16 19:35 1 EA Clonidine HCl (Catapres Tab) 0.1 mg Q6H PO 11/08/16 09:00 12/08/16 08:59 Future hold 11/11/16 07:58 0.1 MG Enoxaparin Sodium (Lovenox Inj) 80 mg Q12 SQ 11/09/16 21:00 11/24/16 08:59 11/11/16 08:03 80 MG Thiamine HCl (Vitamin B-1 Tab) 200 mg QAM PO 11/10/16 09:00 12/08/16 08:59 11/11/16 08:02 200 MG Amiodarone HCl (Cordarone Tab) 200 mg BID PO 11/09/16 21:00 12/09/16 20:59 11/11/16 07:59 200 MG Metoprolol Tartrate (Lopressor Iv) 5 mg Q6 PRN IV 11/09/16 09:30 12/09/16 09:29 11/09/16 12:27 5 MG Chlordiazepoxide (Librium Cap) 10 mg Q8 PO 11/11/16 14:00 11/12/16 06:01 Lorazepam (Ativan Inj) 2 mg Q6 PRN IV 11/09/16 11:45 12/09/16 11:44 11/10/16 00:57 2 MG Diltiazem HCl (Cardizem Tab) 30 mg Q8 PO 11/09/16 14:00 12/09/16 13:59 11/11/16 05:41 30 MG Dexmedetomidine HCl 400 mcg/ Sodium Chloride 100 ml @ 0 mls/hr Q0M PRN IV 11/10/16 04:30 11/14/16 04:29 Vital Signs: Date Time Temp Pulse Resp B/P (MAP) Pulse Ox O2 Delivery O2 Flow Rate FiO2 11/11/16 08:00 Room Air 11/11/16 08:00 36.7 68 14 106/66 (79) 96 Room Air 11/11/16 06:00 82 17 11/11/16 05:00 82 20 11/11/16 04:03 36.6 91 18 98/67 (77) 95 Room Air 11/11/16 04:02 97 Room Air 98.0 11/11/16 00:10 36.7 83 16 110/78 (89) 100 Room Air 11/11/16 00:08 97 Room Air 98.0 11/10/16 20:00 36.7 89 19 11/10/16 20:00 97 Room Air 98.0 11/10/16 19:41 86 16 123/80 (94) 11/10/16 19:00 91 20 11/10/16 18:14 89 15 117/77 (90) 11/10/16 18:00 94 14 11/10/16 17:00 96 17 11/10/16 16:11 95 97 11/10/16 16:00 87 15 11/10/16 15:31 96 Room Air 11/10/16 15:12 36.7 84 17 95/75 (82) 96 Room Air 11/10/16 15:00 84 17 11/10/16 13:00 95 16 11/10/16 12:30 36.7 91 17 11/10/16 12:15 Room Air 11/10/16 12:04 91 20 108/73 (85) 96 Room Air 11/10/16 11:30 91 14 11/10/16 10:30 91 18 11/10/16 10:01 88 23 114/76 (89) 11/10/16 10:00 87 20 134/ (44) Laboratory Results: Last 24 Hours Test 11/11/16 05:26 White Blood Count 7.36 K/uL Red Blood Count 3.65 M/uL Hemoglobin 11.3 g/dL Hematocrit 34.2 % Mean Corpuscular Volume 93.7 fL Mean Corpuscular Hemoglobin 31.0 pg Mean Corpuscular Hemoglobin Concent 33.0 g/dl Platelet Count 292 K/uL Mean Platelet Volume 9.8 fL Neutrophils (%) (Auto) 65.5 % Lymphocytes (%) (Auto) 23.1 % Monocytes (%) (Auto) 10.5 % Eosinophils (%) (Auto) 0.5 % Basophils (%) (Auto) 0.1 % Neutrophils # (Auto) 4.82 K/uL Lymphocytes # (Auto) 1.70 K/uL Monocytes # (Auto) 0.77 K/uL Eosinophils # (Auto) 0.04 K/uL Basophils # (Auto) 0.01 K/uL RDW Standard Deviation 45.2 fL RDW Coefficient of Variation 13.2 % Immature Granulocyte % (Auto) 0.3 % Immature Granulocyte # (Auto) 0.02 K/uL Sodium Level 143 mmol/L Potassium Level 3.6 mmol/L Chloride Level 106 mmol/L Carbon Dioxide Level 30 mmol/L Anion Gap 7.0 mmol/L Blood Urea Nitrogen 4 mg/dl Creatinine 0.57 mg/dl Est Creatinine Clear Calc Drug Dose 177.3 ml/min Estimated GFR () 134.0 Estimated GFR (Non- 115.6 BUN/Creatinine Ratio 6.6 Random Glucose 90 mg/dl Calcium Level 8.4 mg/dl Phosphorus Level 4.1 mg/dl Magnesium Level 2.0 mg/dl Valproic Acid (Depakene) Level 79 mcg/ml Problem Qualifiers (1) Alcohol withdrawal: Complication of substance-induced condition: with delirium Qualified Codes: F10.231 - Alcohol dependence with withdrawal delirium
[2016-11-11] MEDS ORDERED: CHLORDIAZEPOXIDE 10 MG CAP PO SCH (14:00)
--- NOTE | 2016-11-11 15:27 | Progress Note ---
Internal Med Progress Note Date of Service: Nov 11, 2016. Provider Documentation: SUBJECTIVE: The Patient was seen and examined Remains confused OOB in a chair AF with RVR-reverted to SR Rate is controlled Remains confused with occasional agitation OBJECTIVE: Vital Signs-as noted below Exam: General-Pleasantly Confused,generally weak and lethargic Eyes-normal ENT-Normal Neck-supple Lungs-Transmitted sounds and minimal crackles at the bases Heart-Regular,no murmur appreciated Abdomen-Benign,no masses,bowel sound present Extremities-No edema Neuro-drowsy and confused Moving all limbs Lab data as noted below. 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, Benzodiazepines Tapering down Diazepam as planned Clonidine is reduced as well Occasional agitation requiring 1 on 1 observation in ICU Remains confused Will need Inpatient rehab Social service is on Board Continue to taper Benzo -discontinued Has been on Gabapentin AF with RVR Was on IV Amiodarone and then to Oral Full anticoagulation with Lovenox Rate is controlled Likely not a candidate for [facility] anticoagulation Started on oral Amiodarone and Cardizem-rate controlled Remains in SR and rate is controlled DELIRIUM TREMENS -secondary to Alcohol abuse -s/p Extubation -Was on versed and propofol drip -Continue thiamine with higher doses Folic acid and IVF - EEG done showed no seizure activity -Required heavy dose of Benzodiazepines -will try to wean off gradually -Getting Gabapentin and Clonidine -remains confused - PT/OT started at bedside and progress as tolerated 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 and then resumed usual dose Appreciate Psychiatry input Taper down Benzodiazepine -will be a slow process Seroquel started Remains pleasantly confused but improving very slowly Not suicidal or harmful to others PNEUMONIA Likely secondary to Aspiration CXR showed Progression of bibasilar opacities, right greater than left Received Unasyn and Zithromax Has had a bronch done 10/22 Bronchial washings sent for culture and Gram stain, cx growth normal amish Fungal elements, and AFB stain negative D/C Azithromycin on 27 of October Finished the courses of antibiotics Started on Augmentin again for possible aspiration-discontinued Antibiotic course is finished Elevated Liver Enzymes -likely secondary to alcohol abuse -Hepatitis B and C negative -continue monitor liver enzymes-improving Nutrition Was on NGT feeding Ongoing Swallowing evaluation Started on oral diet and tolerating THROMBOCYTOPENIA -secondary to Alcohol abuse and Cirrhosis -platelet improved from 35 to 50-->73 today -no pharmacologic anticoagulation initially -normalized ELEVATED CK LEVEL Likely from recurrent trauma Resolved Electrolytes Imbalance Supplement and Monitor TOBACCO ABUSE -Nicotine patch ordered DVT PROPHYLAXIS: SCDs RE: thrombocytopenia Will consider Heparin irf platelet goes >100 Started on Lovenox CODE STATUS: FULL CODE Consultants: COTTON GIN YARD SUPERVISOR Procedures: Bronchoscopy Family 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 by Soaping Machine Back Tender will need inpatient rehab Vital Signs: Date Time Temp Pulse Resp B/P (MAP) Pulse Ox O2 Delivery O2 Flow Rate FiO2 11/11/16 14:00 95 20 97/58 (71) 100 Room Air 11/11/16 12:00 Room Air 11/11/16 12:00 36.7 94 16 108/68 (81) 99 Room Air 11/11/16 10:00 36.9 85 15 101/64 (76) 100 Room Air 11/11/16 08:00 Room Air 11/11/16 08:00 36.7 68 14 106/66 (79) 96 Room Air 11/11/16 06:00 82 17 11/11/16 05:00 82 20 11/11/16 04:03 36.6 91 18 98/67 (77) 95 Room Air 11/11/16 04:02 97 Room Air 98.0 11/11/16 00:10 36.7 83 16 110/78 (89) 100 Room Air 11/11/16 00:08 97 Room Air 98.0 11/10/16 20:00 36.7 89 19 11/10/16 20:00 97 Room Air 98.0 11/10/16 19:41 86 16 123/80 (94) 11/10/16 19:00 91 20 11/10/16 18:14 89 15 117/77 (90) 11/10/16 18:00 94 14 11/10/16 17:00 96 17 11/10/16 16:11 95 97 11/10/16 16:00 87 15 11/10/16 15:31 96 Room Air Lab Results: Results Past 24 Hours Test 11/11/16 05:26 Range/Units White Blood Count 7.36 4.8-10.8 K/uL Red Blood Count 3.65 4.7-6.1 M/uL Hemoglobin 11.3 14.0-18.0 g/dL Hematocrit 34.2 42-52 % Mean Corpuscular Volume 93.7 80-100 fL Mean Corpuscular Hemoglobin 31.0 25-34 pg Mean Corpuscular Hemoglobin Concent 33.0 32-36 g/dl Platelet Count 292 130-400 K/uL Mean Platelet Volume 9.8 7.4-10.4 fL Neutrophils (%) (Auto) 65.5 % Lymphocytes (%) (Auto) 23.1 % Monocytes (%) (Auto) 10.5 % Eosinophils (%) (Auto) 0.5 % Basophils (%) (Auto) 0.1 % Neutrophils # (Auto) 4.82 1.4-6.5 K/uL Lymphocytes # (Auto) 1.70 1.2-3.4 K/uL Monocytes # (Auto) 0.77 0.11-0.59 K/uL Eosinophils # (Auto) 0.04 0-0.5 K/uL Basophils # (Auto) 0.01 0-0.2 K/uL RDW Standard Deviation 45.2 36.4-46.3 fL RDW Coefficient of Variation 13.2 11.5-14.5 % Immature Granulocyte % (Auto) 0.3 % Immature Granulocyte # (Auto) 0.02 0.00-0.02 K/uL Sodium Level 143 136-145 mmol/L Potassium Level 3.6 3.5-5.1 mmol/L Chloride Level 106 98-107 mmol/L Carbon Dioxide Level 30 21-32 mmol/L Anion Gap 7.0 3-11 mmol/L Blood Urea Nitrogen 4 7-18 mg/dl Creatinine 0.57 0.60-1.40 mg/dl Est Creatinine Clear Calc Drug Dose 177.3 ml/min Estimated GFR () 134.0 Estimated GFR (Non- 115.6 BUN/Creatinine Ratio 6.6 10-20 Random Glucose 90 70-99 mg/dl Calcium Level 8.4 8.5-10.1 mg/dl Phosphorus Level 4.1 2.5-4.9 mg/dl Magnesium Level 2.0 1.8-2.4 mg/dl Valproic Acid (Depakene) Level 79 50-100 mcg/ml
[2016-11-12] VITALS (19 sets, daily range): BP systolic 109–138; BP diastolic 69–88; PULSE 72–97; TEMP 36.6–36.8; O2SAT 94–100
[2016-11-12] MEDS: DILTIAZEM HCL 30 MG TAB PO SCH ×3 (04:58→19:29)
[2016-11-12 05:37] LABS: BASO % 0.3 %; BASO ABS # 0.02 K/uL (0-0.2); COMPLETE YES; EOS % 0.6 %; HEMATOCRIT 37.2 % (42-52); IG% 0.5 %; LYMPH ABS # 1.91 K/uL (1.2-3.4); MEAN CELL VOLUME 95.6 fL (80-100); MEAN CORPUSCULAR HEMOGLOBIN 30.8 pg (25-34); MEAN CORPUSCULAR HGB CONC 32.3 g/dl (32-36); MEAN PLATELET VOLUME 10.2 fL (7.4-10.4); MONO % 8.7 %; NEUT % 60.9 %; PLATELET COUNT 286 K/uL (130-400); RED BLOOD COUNT 3.89 M/uL (4.7-6.1); WHITE BLOOD COUNT 6.58 K/uL (4.8-10.8)
[2016-11-12 06:00] LABS: BUN/CREATININE RATIO 11.3 (10-20); CALCIUM 8.7 mg/dl (8.5-10.1); CREATININE 0.63 mg/dl (0.60-1.40); POTASSIUM 4.1 mmol/L (3.5-5.1)
[2016-11-12] MEDS: GABAPENTIN 600 MG TAB PO SCH ×4 (08:38→19:28)
[2016-11-12] MEDS: THIAMINE HCL 100 MG TAB PO SCH (08:38)
[2016-11-12] MEDS: POLYETHYLENE (MIRALAX) 17 GM PACK PO SCH (08:39)
[2016-11-12] MEDS: DIVALPROEX SODIUM SPRINKLE 125 MG CAP PO SCH ×3 (08:39→19:28)
[2016-11-12] MEDS: AMIODARONE 200 MG TAB PO SCH ×2 (08:39→19:27)
[2016-11-12] MEDS: SENNA 17.6 MG/10 ML UDP PO SCH (08:41)
[2016-11-12] MEDS: POTASSIUM CHLORIDE 20 MEQ/15 ML UDC NG SCH (08:41)
[2016-11-12] MEDS: MULTIVITAMINS W/MINERALS 15ML UDP PO SCH (08:41)
[2016-11-12] MEDS: NICOTINE 21 MG/24 HR TDSY TD SCH (08:41)
[2016-11-12] MEDS: DOCUSATE SODIUM 100 MG/10 ML UDC PO SCH ×2 (08:41→19:27)
[2016-11-12] MEDS: ENOXAPARIN 80 MG/0.8 ML SYR SQ SCH ×2 (08:42→19:29)
[2016-11-12] MEDS: TRIAMCINOLONE ACET 0.025% CR 15 GM TUBE EXT SCH ×2 (08:42→20:12)
[2016-11-12] MEDS: CHOLECALCIFEROL 1000 INTER.UNIT TAB PO SCH (08:42)
[2016-11-12] MEDS ORDERED: LORAZEPAM 2 MG/ML 1 ML VIAL IV PRN (12:30)
[2016-11-12] MEDS ORDERED: CLONIDINE HCL 0.1 MG TAB PO PRN (12:30)
--- NOTE | 2016-11-12 12:53 | Critical Care Progress Note ---
Critical Care Progress Note Date of Service Nov 12, 2016. ICU Day ICU Day Number: [address] Clancy Subjective he patient was admitted with ETOH withdrawal complicated by aspiration pneumonia and respiratory failure necessitating MV. he was successfully extubated and we were weaning down his valium and clonidine. He was changed to librium yesterday and clonidine is stopped. He developed A fib with RVR this week and reverted to sinus rhythm with amiodarone and is on anticoagulation. He needs precedex at night but is calmer in the day. He has no complaints today. Sister at bedside. he was agitated at night and needed precedex. Sheri will try clonidine, lorazepam combination to avoid IV meds She offered me the number pf Yadiraconcepción Richardson who is a [employer] employee and was trying to help the patient with a case presided over by probate judge Jolene Preston Yadira's number is [phone] Objective General Appearance: calm, comfortable Head: normocephalic,excoriation on the nose and face Neck: trachea midline, no stridor, no JVD Respiratory: clear to auscultation, no added sounds or wheezing Cardiovascular: normal S1S2, no added sounds or murmurs Abdomen: non tender, normal bowel sounds, no rebound Extremities: other (multiple ecchymoses of varying age) Neuro: Moves all 4 extremities when lightening sedation, Alert to person only, Current SOFA Score SOFA Score Response (Comments) Value Platelets (x10) > 150 0 Bilirubin (mg/dL) < 1.2 0 Chromo Coma Score 13 - 14 1 Level of Hypotension No Hypotension 0 Creatinine (mg/dL) < 1.2 0 Total 1 Previous SOFA Scores 1 on 11/07/2016 Assessment & Plan (1) History of traumatic brain injury (2) Alcohol withdrawal (3) Multiple contusions (4) Tobacco abuse (5) Alcohol abuse NEUROLOGICAL - GCS: 14 Eyes: 4; Verbal: 4; Motor 6 Depakote: 675 milligrams every 8 hours IV which is total daily dose of 25 mg/kg (Depakote level LII low and normal, DEpakote level within normal at 76 Strict sleep hygiene librium to stop today 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 Korsakoff psychosis. Will use lorazepam and clonidine to control agitation CARDIOVASCULAR MAP and HR stable he is back to sinus rhythm Amiodarone d200 mg BID with level of TSH on 10/20/2016 0.85 Hypertension metoprolol PRN for A fib cardizem 30 mg PO Q8 will need full dose anticoagulation for the A fib episodeHowever, he is at risk of self injury and falls with history of multiple brain trauma. Will use 80 mg BID lovenox as long as he is in house. However, if he does not revert to sinus rhythm we may need to stop it as outpatient given frequent falls TBI If he remains in sinus rhythm for 4 weeks then anticoagulation can be DC - mechanical fibrillation is delayed compared to electrical fibrillation RESPIRATORY saturates well on RA Albuterol nebulizers scaled back to PRN only GASTROINTESTINAL - Diet:heart healthy - Bowel regimen: Colace, Senna, Dulcolax Chronic Malnutrition - 2/2 chronic alcohol abuse, Continue Thiamine, Continue Folate 1 mg qAM, Continue Multivitamin daily Mg O daily RENAL//ENDOCRINE - Fluid Balance is unreliable as he is urinating in the bed and not all the output is accouted for. FENA remains low. 0.1%. Will give oral fluid endocrine - BS-110, stable; no indications for insulin - Patient has not been hyperglycemic nor hypoglycemic will change blood glucose checks to when necessary NFECTIOUS DISEASES - Tmax: Afebrile WBC: <5 will monitor - DVT Prophylaxis: on therapeutic dose for A fib LINES/IV ACCESS peripheral IV CODE STATUS - Full Code. he awaits placement in a skilled facility DISPOSITION - OT/PT: Ordered - ICU due extreme intermittent agitation. He will need transfer to a skilled facility soon. But for now will monitor in MICU given the new A fib with RVR I spent 40 minutes of CC time managing the patient Consults & Procedures Consultants: Mental health Procedures: Endotracheal intubation 10/20/2016 Bronchoscopy 10/22/2016 CT PE negative on 11/03/2016 Data Medications: Current Inpatient Medications Medications (Trade) Dose Ordered Sig/Rica Route Start Time Stop Time Status Last Admin Dose Admin Acetaminophen (Tylenol Tab) 650 mg Q4H PRN PO 10/20/16 16:00 11/19/16 15:59 Ondansetron HCl (Zofran Inj) 4 mg Q6H PRN IV 10/20/16 16:00 11/19/16 15:59 10/20/16 19:31 4 MG Lorazepam (Ativan Inj) PRN Dosing -Active Protocol Q1H PRN IV 10/20/16 16:00 11/19/16 15:59 Future Hold 11/02/16 05:54 2 MG Multivitamins Therapeutic (Cerovite Liquid) 15 ml QAM PO 10/21/16 09:00 11/20/16 08:59 11/12/16 08:41 15 ML Folic Acid (Folvite Tab) 1 mg QAM PO 10/21/16 09:00 11/20/16 08:59 11/12/16 08:39 1 MG Polyethylene (Miralax Powder Packet) 17 gm QAM PO 10/23/16 09:00 11/22/16 08:59 11/12/16 08:39 17 GM Docusate Sodium (coLACE SYRUP) 100 mg BID PO 10/23/16 09:00 11/22/16 08:59 11/12/16 08:41 100 MG Heparin Sodium (Porcine) (Heparin 10 Unit/ ml 5 ml Flush) 5 ml PRN PRN FLUSH 10/24/16 01:45 11/23/16 01:44 10/31/16 13:16 10 ML Bisacodyl (Dulcolax Supp) 10 mg DAILY PRN NH 10/27/16 09:00 11/26/16 08:59 10/29/16 07:16 10 MG Cholecalciferol (Vitamin D Tab) 2,000 inter.unit DAILY PO 10/27/16 14:30 11/26/16 14:29 11/12/16 08:42 2,000 INTER.UNIT Senna (Senokot Syrup) 17.6 mg QAM PO 10/29/16 09:00 11/28/16 08:59 11/12/16 08:41 17.6 MG Triamcinolone Acetonide (Kenalog 0.025% Crm) 1 appln BID EXT 10/29/16 21:00 11/28/16 20:59 11/12/16 08:42 1 APPLN Albuterol/ Ipratropium (Duoneb) 3 ml Q6H PRN INH 10/30/16 10:00 6/21/17 09:59 Magnesium Oxide (Mag-Ox Tab) 400 mg DAILY PO 11/01/16 09:00 12/01/16 08:59 Future Hold 11/02/16 07:50 400 MG Potassium Chloride (Lakeisha Ciel Elix) 60 meq QAM NG 11/03/16 09:49 12/03/16 09:48 11/12/16 08:41 60 MEQ Gabapentin (Neurontin Tab) 600 mg QID PO 11/07/16 17:00 12/07/16 16:59 11/12/16 08:38 600 MG Divalproex Sodium (Depakote Sprinkle Cap) 625 mg TID PO 11/07/16 14:00 12/07/16 13:59 11/12/16 08:39 625 MG Nicotine (Nicoderm Cq 21MG Patch) 1 patch QAM TD 11/07/16 19:30 12/07/16 19:29 11/12/16 08:41 1 PATCH Miscellaneous (Remove Nicoderm Patch) 1 ea HS N/A 11/07/16 21:00 12/07/16 20:59 11/11/16 19:44 1 EA Enoxaparin Sodium (Lovenox Inj) 80 mg Q12 SQ 11/09/16 21:00 11/24/16 08:59 11/12/16 08:42 80 MG Thiamine HCl (Vitamin B-1 Tab) 200 mg QAM PO 11/10/16 09:00 12/08/16 08:59 11/12/16 08:38 200 MG Amiodarone HCl (Cordarone Tab) 200 mg BID PO 11/09/16 21:00 12/09/16 20:59 11/12/16 08:39 200 MG Metoprolol Tartrate (Lopressor Iv) 5 mg Q6 PRN IV 11/09/16 09:30 12/09/16 09:29 11/09/16 12:27 5 MG Lorazepam (Ativan Inj) 2 mg Q6 PRN IV 11/09/16 11:45 12/09/16 11:44 11/10/16 00:57 2 MG Diltiazem HCl (Cardizem Tab) 30 mg Q8 PO 11/09/16 14:00 12/09/16 13:59 11/12/16 04:58 30 MG Dexmedetomidine HCl 400 mcg/ Sodium Chloride 100 ml @ 0 mls/hr Q0M PRN IV 11/10/16 04:30 11/14/16 04:29 11/12/16 01:13 10.9 MLS/HR Vital Signs: Date Time Temp Pulse Resp B/P (MAP) Pulse Ox O2 Delivery O2 Flow Rate FiO2 11/12/16 12:00 36.6 97 26 109/78 (88) 100 Room Air 11/12/16 12:00 Room Air 11/12/16 10:00 88 20 118/88 (98) 94 Room Air 11/12/16 08:00 36.6 82 17 109/72 (84) 94 Room Air 11/12/16 08:00 Room Air 11/12/16 06:00 82 16 11/12/16 05:00 84 14 11/12/16 04:09 97 Room Air 98.0 11/12/16 04:00 72 15 11/12/16 03:00 75 15 11/12/16 02:00 79 15 11/12/16 00:52 36.7 92 20 116/69 (85) 94 Room Air 11/12/16 00:48 93 15 116/69 (85) 11/12/16 00:44 97 Room Air 98.0 11/12/16 00:00 85 21 11/12/16 00:00 85 21 11/12/16 00:00 85 21 11/11/16 23:00 82 15 11/11/16 22:00 85 13 11/11/16 21:00 91 13 11/11/16 20:01 97 Room Air 98.0 11/11/16 20:00 36.9 97 13 114/74 (87) 98 11/11/16 18:00 95 19 104/63 (77) 98 Room Air 11/11/16 16:00 36.8 97 18 99/66 (77) 99 Room Air 11/11/16 16:00 Room Air 11/11/16 14:00 95 20 97/58 (71) 100 Room Air Laboratory Results: Last 24 Hours Test 11/12/16 04:33 11/12/16 05:05 Urine Random Creatinine 36.0 mg/dl Urine Random Sodium 16 mEq/L White Blood Count 6.58 K/uL Red Blood Count 3.89 M/uL Hemoglobin 12.0 g/dL Hematocrit 37.2 % Mean Corpuscular Volume 95.6 fL Mean Corpuscular Hemoglobin 30.8 pg Mean Corpuscular Hemoglobin Concent 32.3 g/dl Platelet Count 286 K/uL Mean Platelet Volume 10.2 fL Neutrophils (%) (Auto) 60.9 % Lymphocytes (%) (Auto) 29.0 % Monocytes (%) (Auto) 8.7 % Eosinophils (%) (Auto) 0.6 % Basophils (%) (Auto) 0.3 % Neutrophils # (Auto) 4.01 K/uL Lymphocytes # (Auto) 1.91 K/uL Monocytes # (Auto) 0.57 K/uL Eosinophils # (Auto) 0.04 K/uL Basophils # (Auto) 0.02 K/uL RDW Standard Deviation 46.4 fL RDW Coefficient of Variation 13.5 % Immature Granulocyte % (Auto) 0.5 % Immature Granulocyte # (Auto) 0.03 K/uL Sodium Level 145 mmol/L Potassium Level 4.1 mmol/L Chloride Level 106 mmol/L Carbon Dioxide Level 34 mmol/L Anion Gap 5.0 mmol/L Blood Urea Nitrogen 7 mg/dl Creatinine 0.63 mg/dl Est Creatinine Clear Calc Drug Dose 160.4 ml/min Estimated GFR () 128.6 Estimated GFR (Non- 110.9 BUN/Creatinine Ratio 11.3 Random Glucose 78 mg/dl Calcium Level 8.7 mg/dl Problem Qualifiers (1) Alcohol withdrawal: Complication of substance-induced condition: with delirium Qualified Codes: F10.231 - Alcohol dependence with withdrawal delirium
--- NOTE | 2016-11-12 19:13 | Progress Note ---
Internal Med Progress Note Date of Service: Nov 12, 2016. Provider Documentation: SUBJECTIVE: says he is doing fine can tell his name and knows he is in hospital. eating ok says he is feeling great and sick of the hospital and wants to be discharged got agitated when told that he will be not discharged today hemodynamics stable OBJECTIVE: Vital Signs-as noted below Exam: General-alert and awake. Not in distress ENT-Normal hearing Neck-no neck masses, supple Lungs-cta b/l no wheezing or crackles Heart-s1 and s2 heard regular rate and rhythm, no murmurs Abdomen-soft bowel sounds present non tender no distension Extremities-no edema, no erythema Neuro-alert and awake moves extremities Lab data as noted below. 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 currently Precedex stopped on gabapentin and Ativan prn clonidine prn close montior appreciate psychiatry inputs AF with RVR Was on IV Amiodarone and then to Oral Full anticoagulation with Lovenox currently rate is controlled on po amiodarone and po Cardizem Likely not a candidate for superintendent container terminal anticoagulation will monitor DELIRIUM TREMENS secondary to Alcohol abuse s/p Extubation Was on versed and propofol drip To Continue thiamine with higher doses Folic acid EEG- no seizure activity Required heavy dose of Benzodiazepines and was on Precedex drip currently on ativan prn 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 and then resumed usual dose Appreciate Psychiatry input agitated on and off will monitor PNEUMONIA Likely secondary to Aspiration CXR showed Progression of bibasilar opacities, right greater than left Received Unasyn and Zithromax Has had a bronch done 10/22 Bronchial washings sent for culture and Gram stain, cx growth normal amish completed abx course Elevated Liver Enzymes likely secondary to alcohol abuse -Hepatitis B and C negative improving Nutrition Was on NGT feeding Started on oral diet and tolerating THROMBOCYTOPENIA secondary to Alcohol abuse and Cirrhosis platelet improved from 35 to 50-->73 resolved ELEVATED CK LEVEL Likely from recurrent trauma Resolved Electrolytes Imbalance Supplement and Monitor TOBACCO ABUSE Nicotine patch ordered DVT PROPHYLAXIS: on Lovenox CODE STATUS: FULL CODE Consultants: ASSISTANT 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 MANAGER Procedures: Bronchoscopy Family 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 by Residential Solar Consultant will need inpatient rehab Vital Signs: Date Time Temp Pulse Resp B/P (MAP) Pulse Ox O2 Delivery O2 Flow Rate FiO2 11/12/16 18:00 95 19 138/77 (97) 96 Room Air 11/12/16 16:00 36.7 97 24 116/81 (93) 96 Room Air 11/12/16 16:00 Room Air 11/12/16 12:00 36.6 97 26 109/78 (88) 100 Room Air 11/12/16 12:00 Room Air 11/12/16 10:00 88 20 118/88 (98) 94 Room Air 11/12/16 08:00 36.6 82 17 109/72 (84) 94 Room Air 11/12/16 08:00 Room Air 11/12/16 06:00 82 16 11/12/16 05:00 84 14 11/12/16 04:09 97 Room Air 98.0 11/12/16 04:00 72 15 11/12/16 03:00 75 15 11/12/16 02:00 79 15 11/12/16 00:52 36.7 92 20 116/69 (85) 94 Room Air 11/12/16 00:48 93 15 116/69 (85) 11/12/16 00:44 97 Room Air 98.0 11/12/16 00:00 85 21 11/12/16 00:00 85 21 11/12/16 00:00 85 21 11/11/16 23:00 82 15 11/11/16 22:00 85 13 11/11/16 21:00 91 13 11/11/16 20:01 97 Room Air 98.0 11/11/16 20:00 36.9 97 13 114/74 (87) 98 Lab Results: Results Past 24 Hours Test 11/12/16 04:33 11/12/16 05:05 Range/Units Urine Random Creatinine 36.0 mg/dl Urine Random Sodium 16 mEq/L White Blood Count 6.58 4.8-10.8 K/uL Red Blood Count 3.89 4.7-6.1 M/uL Hemoglobin 12.0 14.0-18.0 g/dL Hematocrit 37.2 42-52 % Mean Corpuscular Volume 95.6 80-100 fL Mean Corpuscular Hemoglobin 30.8 25-34 pg Mean Corpuscular Hemoglobin Concent 32.3 32-36 g/dl Platelet Count 286 130-400 K/uL Mean Platelet Volume 10.2 7.4-10.4 fL Neutrophils (%) (Auto) 60.9 % Lymphocytes (%) (Auto) 29.0 % Monocytes (%) (Auto) 8.7 % Eosinophils (%) (Auto) 0.6 % Basophils (%) (Auto) 0.3 % Neutrophils # (Auto) 4.01 1.4-6.5 K/uL Lymphocytes # (Auto) 1.91 1.2-3.4 K/uL Monocytes # (Auto) 0.57 0.11-0.59 K/uL Eosinophils # (Auto) 0.04 0-0.5 K/uL Basophils # (Auto) 0.02 0-0.2 K/uL RDW Standard Deviation 46.4 36.4-46.3 fL RDW Coefficient of Variation 13.5 11.5-14.5 % Immature Granulocyte % (Auto) 0.5 % Immature Granulocyte # (Auto) 0.03 0.00-0.02 K/uL Sodium Level 145 136-145 mmol/L Potassium Level 4.1 3.5-5.1 mmol/L Chloride Level 106 98-107 mmol/L Carbon Dioxide Level 34 21-32 mmol/L Anion Gap 5.0 3-11 mmol/L Blood Urea Nitrogen 7 7-18 mg/dl Creatinine 0.63 0.60-1.40 mg/dl Est Creatinine Clear Calc Drug Dose 160.4 ml/min Estimated GFR () 128.6 Estimated GFR (Non- 110.9 BUN/Creatinine Ratio 11.3 10-20 Random Glucose 78 70-99 mg/dl Calcium Level 8.7 8.5-10.1 mg/dl
[2016-11-12] MEDS: LORAZEPAM 2 MG/ML 1 ML VIAL IV PRN (23:16)
[2016-11-13] VITALS (15 sets, daily range): BP systolic 107–136; BP diastolic 62–90; PULSE 84–107; TEMP 36.5–37.1; O2SAT 95–98
[2016-11-13] MEDS: DILTIAZEM HCL 30 MG TAB PO SCH ×3 (04:52→20:23)
[2016-11-13 05:14] LABS: BASO % 0.3 %; BASO ABS # 0.03 K/uL (0-0.2); COMPLETE YES; EOS % 0.9 %; HEMATOCRIT 37.3 % (42-52); IG% 0.2 %; LYMPH % 15.9 %; LYMPH ABS # 1.37 K/uL (1.2-3.4); MEAN CELL VOLUME 95.4 fL (80-100); MEAN CORPUSCULAR HEMOGLOBIN 30.9 pg (25-34); MEAN CORPUSCULAR HGB CONC 32.4 g/dl (32-36); MEAN PLATELET VOLUME 9.8 fL (7.4-10.4); MONO % 12.2 %; NEUT % 70.5 %; PLATELET COUNT 279 K/uL (130-400); RED BLOOD COUNT 3.91 M/uL (4.7-6.1); WHITE BLOOD COUNT 8.61 K/uL (4.8-10.8)
[2016-11-13 05:39] LABS: BUN/CREATININE RATIO 10.5 (10-20); CALCIUM 8.6 mg/dl (8.5-10.1); CREATININE 0.59 mg/dl (0.60-1.40); POTASSIUM 3.7 mmol/L (3.5-5.1)
[2016-11-13 05:40] LABS: PHOSPHORUS 3.5 mg/dl (2.5-4.9)
[2016-11-13] MEDS: TRIAMCINOLONE ACET 0.025% CR 15 GM TUBE EXT SCH ×2 (08:15→20:23)
[2016-11-13] MEDS: POTASSIUM CHLORIDE 20 MEQ/15 ML UDC NG SCH (08:15)
[2016-11-13] MEDS: GABAPENTIN 600 MG TAB PO SCH ×4 (08:16→20:23)
[2016-11-13] MEDS: DOCUSATE SODIUM 100 MG/10 ML UDC PO SCH (08:16)
[2016-11-13] MEDS: THIAMINE HCL 100 MG TAB PO SCH (08:16)
[2016-11-13] MEDS: NICOTINE 21 MG/24 HR TDSY TD SCH (08:16)
[2016-11-13] MEDS: CHOLECALCIFEROL 1000 INTER.UNIT TAB PO SCH (08:16)
[2016-11-13] MEDS: DIVALPROEX SODIUM SPRINKLE 125 MG CAP PO SCH ×3 (08:16→20:22)
[2016-11-13] MEDS: MULTIVITAMINS W/MINERALS 15ML UDP PO SCH (08:17)
[2016-11-13] MEDS: AMIODARONE 200 MG TAB PO SCH ×2 (08:17→20:22)
[2016-11-13] MEDS: POLYETHYLENE (MIRALAX) 17 GM PACK PO SCH (08:17)
[2016-11-13] MEDS: SENNA 17.6 MG/10 ML UDP PO SCH (08:17)
[2016-11-13] MEDS: ENOXAPARIN 80 MG/0.8 ML SYR SQ SCH ×2 (08:18→20:20)
[2016-11-13] MEDS: CEROVITE ADV FORMULA TAB PO SCH (08:48)
[2016-11-13] MEDS: POTASSIUM CHLORIDE 20 MEQ TABCR PO SCH (08:48)
[2016-11-13] MEDS: DOCUSATE SODIUM 100 MG CAP PO SCH ×2 (08:48→20:20)
[2016-11-13] MEDS: SENNA 8.6 MG TAB PO SCH (08:48)
--- NOTE | 2016-11-13 10:52 | Critical Care Progress Note ---
Critical Care Progress Note Date of Service Nov 13, 2016. Attending Dr. Mccormack Subjective Reportedly had a better night. Ativan and Clonazepam utilized. No cardiopulmonary targets. No new GI/ concerns. No new focal neuro changes. Tolerating current level of activity. Objective General Appearance: calm, comfortable Head: no new focal target Neck: normal Respiratory: exchange is fine Cardiovascular: volume status is ok. No tachycardia Abdomen: functional/nontender Extremities: no edema Neuro: no seizures/focal targets--cognition is impaired Derm--no new findings Current SOFA Score SOFA Score Response (Comments) Value Platelets (x10) > 150 0 Bilirubin (mg/dL) < 1.2 0 Do Coma Score 13 - 14 1 Level of Hypotension No Hypotension 0 Creatinine (mg/dL) < 1.2 0 Total 1 Previous SOFA Scores 1 on 11/07/2016 Assessment & Plan (1) History of traumatic brain injury Continue to simplify meds and formulate disposition--No new medical targets. Hopefully will be able to transition to medical floor. (2) Alcohol withdrawal (3) Multiple contusions (4) Tobacco abuse (5) Alcohol abuse Consults & Procedures Consultants: Mental health Procedures: Endotracheal intubation 10/20/2016 Bronchoscopy 10/22/2016 CT PE negative on 11/03/2016 Data Medications: Current Inpatient Medications Medications (Trade) Dose Ordered Sig/Rica Route Start Time Stop Time Status Last Admin Dose Admin Acetaminophen (Tylenol Tab) 650 mg Q4H PRN PO 10/20/16 16:00 11/19/16 15:59 Ondansetron HCl (Zofran Inj) 4 mg Q6H PRN IV 10/20/16 16:00 11/19/16 15:59 10/20/16 19:31 4 MG Lorazepam (Ativan Inj) PRN Dosing -Active Protocol Q1H PRN IV 10/20/16 16:00 11/19/16 15:59 Future Hold 11/12/16 23:16 2 MG Folic Acid (Folvite Tab) 1 mg QAM PO 10/21/16 09:00 11/20/16 08:59 11/13/16 08:17 1 MG Polyethylene (Miralax Powder Packet) 17 gm QAM PO 10/23/16 09:00 11/22/16 08:59 11/13/16 08:17 17 GM Heparin Sodium (Porcine) (Heparin 10 Unit/ ml 5 ml Flush) 5 ml PRN PRN FLUSH 10/24/16 01:45 11/23/16 01:44 10/31/16 13:16 10 ML Bisacodyl (Dulcolax Supp) 10 mg DAILY PRN MT 10/27/16 09:00 11/26/16 08:59 10/29/16 07:16 10 MG Cholecalciferol (Vitamin D Tab) 2,000 inter.unit DAILY PO 10/27/16 14:30 11/26/16 14:29 11/13/16 08:16 2,000 INTER.UNIT Triamcinolone Acetonide (Kenalog 0.025% Crm) 1 appln BID EXT 10/29/16 21:00 11/28/16 20:59 11/13/16 08:15 1 APPLN Albuterol/ Ipratropium (Duoneb) 3 ml Q6H PRN INH 10/30/16 10:00 11/29/16 09:59 Magnesium Oxide (Mag-Ox Tab) 400 mg DAILY PO 11/01/16 09:00 12/01/16 08:59 Future Hold 11/02/16 07:50 400 MG Gabapentin (Neurontin Tab) 600 mg QID PO 11/07/16 17:00 12/07/16 16:59 11/13/16 08:16 600 MG Divalproex Sodium (Depakote Sprinkle Cap) 625 mg TID PO 11/07/16 14:00 12/07/16 13:59 11/13/16 08:16 625 MG Nicotine (Nicoderm Cq 21MG Patch) 1 patch QAM TD 11/07/16 19:30 12/07/16 19:29 11/13/16 08:16 1 PATCH Miscellaneous (Remove Nicoderm Patch) 1 ea HS N/A 11/07/16 21:00 12/07/16 20:59 11/12/16 20:11 1 EA Enoxaparin Sodium (Lovenox Inj) 80 mg Q12 SQ 11/09/16 21:00 11/24/16 08:59 11/13/16 08:18 80 MG Thiamine HCl (Vitamin B-1 Tab) 200 mg QAM PO 11/10/16 09:00 12/08/16 08:59 11/13/16 08:16 200 MG Amiodarone HCl (Cordarone Tab) 200 mg BID PO 11/09/16 21:00 12/09/16 20:59 11/13/16 08:17 200 MG Metoprolol Tartrate (Lopressor Iv) 5 mg Q6 PRN IV 11/09/16 09:30 12/09/16 09:29 11/09/16 12:27 5 MG Lorazepam (Ativan Inj) 2 mg Q6 PRN IV 11/09/16 11:45 12/09/16 11:44 11/10/16 00:57 2 MG Diltiazem HCl (Cardizem Tab) 30 mg Q8 PO 11/09/16 14:00 12/09/16 13:59 11/13/16 04:52 30 MG Dexmedetomidine HCl 400 mcg/ Sodium Chloride 100 ml @ 0 mls/hr Q0M PRN IV 11/10/16 04:30 11/14/16 04:29 11/12/16 01:13 10.9 MLS/HR Clonidine HCl (Catapres Tab) 0.1 mg HS PRN PO 11/12/16 12:30 12/12/16 12:29 11/12/16 20:52 0.1 MG Lorazepam (Ativan Inj) 2 mg HS PRN IV 11/12/16 12:30 12/12/16 12:29 11/12/16 22:30 2 MG Docusate Sodium (coLACE CAP) 100 mg BID PO 11/13/16 09:00 12/13/16 08:59 Multivitamins/ Minerals (Multivitamin W/ Minerals Tab) 1 tab QAM PO 11/13/16 09:00 12/13/16 08:59 Potassium Chloride (Klor-Con Tab) 60 meq QAM PO 11/13/16 09:00 12/13/16 08:59 Senna (Senokot Tab) 17.2 mg QAM PO 11/13/16 09:00 12/13/16 08:59 Vital Signs: Date Time Temp Pulse Resp B/P (MAP) Pulse Ox O2 Delivery O2 Flow Rate FiO2 11/13/16 08:00 Room Air 11/13/16 07:06 37.0 101 19 119/84 (96) 95 11/13/16 04:05 Room Air 11/13/16 04:00 95 17 11/13/16 03:00 87 17 11/13/16 02:15 36.5 102 18 113/63 (80) 98 Room Air 11/13/16 00:08 Room Air 11/13/16 00:00 84 17 11/12/16 23:00 87 10 11/12/16 22:00 36.8 84 10 11/12/16 21:00 93 17 11/12/16 20:00 97 24 11/12/16 20:00 Room Air 11/12/16 18:00 95 19 138/77 (97) 96 Room Air 11/12/16 16:00 36.7 97 24 116/81 (93) 96 Room Air 11/12/16 16:00 Room Air 11/12/16 12:00 36.6 97 26 109/78 (88) 100 Room Air 11/12/16 12:00 Room Air Laboratory Results: Last 24 Hours Test 11/13/16 04:50 White Blood Count 8.61 K/uL Red Blood Count 3.91 M/uL Hemoglobin 12.1 g/dL Hematocrit 37.3 % Mean Corpuscular Volume 95.4 fL Mean Corpuscular Hemoglobin 30.9 pg Mean Corpuscular Hemoglobin Concent 32.4 g/dl Platelet Count 279 K/uL Mean Platelet Volume 9.8 fL Neutrophils (%) (Auto) 70.5 % Lymphocytes (%) (Auto) 15.9 % Monocytes (%) (Auto) 12.2 % Eosinophils (%) (Auto) 0.9 % Basophils (%) (Auto) 0.3 % Neutrophils # (Auto) 6.06 K/uL Lymphocytes # (Auto) 1.37 K/uL Monocytes # (Auto) 1.05 K/uL Eosinophils # (Auto) 0.08 K/uL Basophils # (Auto) 0.03 K/uL RDW Standard Deviation 46.9 fL RDW Coefficient of Variation 13.5 % Immature Granulocyte % (Auto) 0.2 % Immature Granulocyte # (Auto) 0.02 K/uL Sodium Level 144 mmol/L Potassium Level 3.7 mmol/L Chloride Level 106 mmol/L Carbon Dioxide Level 32 mmol/L Anion Gap 6.0 mmol/L Blood Urea Nitrogen 6 mg/dl Creatinine 0.59 mg/dl Est Creatinine Clear Calc Drug Dose 171.3 ml/min Estimated GFR () 132.1 Estimated GFR (Non- 114.0 BUN/Creatinine Ratio 10.5 Random Glucose 80 mg/dl Calcium Level 8.6 mg/dl Phosphorus Level 3.5 mg/dl Magnesium Level 2.0 mg/dl Problem Qualifiers (1) Alcohol withdrawal: Complication of substance-induced condition: with delirium Qualified Codes: F10.231 - Alcohol dependence with withdrawal delirium
--- NOTE | 2016-11-13 19:54 | Progress Note ---
Internal Med Progress Note Date of Service: Nov 13, 2016. Provider Documentation: SUBJECTIVE: sitting on the chair comfortably eating great says ambulated ok no complaints likes to be discharged OBJECTIVE: Vital Signs-as noted below Exam: General-alert and awake. Not in distress ENT-Normal hearing Neck-no neck masses, supple Lungs-cta b/l no wheezing or crackles Heart-s1 and s2 heard regular rate and rhythm, no murmurs Abdomen-soft bowel sounds present non tender no distension Extremities-no edema, no erythema Neuro-alert and awake moves extremities Lab data as noted below. 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 anticoagulation stable will monitor DELIRIUM TREMENS secondary to Alcohol abuse s/p Extubation Was on versed and propofol drip To Continue thiamine with higher doses Folic acid EEG- no seizure activity Required heavy dose of Benzodiazepines and was on Precedex drip currently on ativan prn plan for placement 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 and then resumed usual dose Appreciate Psychiatry input agitated on and off will monitor PNEUMONIA Likely secondary to Aspiration CXR showed Progression of bibasilar opacities, right greater than left Received Unasyn and Zithromax Has had a bronch done 10/22 Bronchial washings sent for culture and Gram stain, cx growth normal amish completed abx course Elevated Liver Enzymes likely secondary to alcohol abuse -Hepatitis B and C negative improving Nutrition Was on NGT feeding Started on oral diet and tolerating THROMBOCYTOPENIA secondary to Alcohol abuse and Cirrhosis platelet improved from 35 to 50-->73 resolved ELEVATED CK LEVEL Likely from recurrent trauma Resolved Electrolytes Imbalance Supplement and Monitor TOBACCO ABUSE Nicotine patch ordered DVT PROPHYLAXIS: on Lovenox CODE STATUS: FULL CODE 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 Procedures: Bronchoscopy Family 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 by Instrumentation Specialist will need inpatient rehab transferred to tele today Vital Signs: Date Time Temp Pulse Resp B/P (MAP) Pulse Ox O2 Delivery O2 Flow Rate FiO2 11/13/16 19:38 37.0 100 19 136/90 (105) 96 Room Air 11/13/16 17:20 96 20 11/13/16 16:17 96 18 121/62 (81) 97 Room Air 11/13/16 16:15 Room Air 11/13/16 16:00 94 22 11/13/16 15:00 101 21 11/13/16 14:33 107 11/13/16 14:00 95 16 121/85 (97) 98 Room Air 11/13/16 12:00 Room Air 11/13/16 12:00 37.1 104 20 122/77 (92) 97 Room Air 11/13/16 10:00 101 17 107/81 (90) Room Air 11/13/16 08:00 Room Air 11/13/16 07:06 37.0 101 19 119/84 (96) 95 11/13/16 04:05 Room Air 11/13/16 04:00 95 17 11/13/16 03:00 87 17 11/13/16 02:15 36.5 102 18 113/63 (80) 98 Room Air 11/13/16 00:08 Room Air 11/13/16 00:00 84 17 11/12/16 23:00 87 10 11/12/16 22:00 36.8 84 10 11/12/16 21:00 93 17 11/12/16 20:00 97 24 11/12/16 20:00 Room Air Lab Results: Results Past 24 Hours Test 11/13/16 04:50 Range/Units White Blood Count 8.61 4.8-10.8 K/uL Red Blood Count 3.91 4.7-6.1 M/uL Hemoglobin 12.1 14.0-18.0 g/dL Hematocrit 37.3 42-52 % Mean Corpuscular Volume 95.4 80-100 fL Mean Corpuscular Hemoglobin 30.9 25-34 pg Mean Corpuscular Hemoglobin Concent 32.4 32-36 g/dl Platelet Count 279 130-400 K/uL Mean Platelet Volume 9.8 7.4-10.4 fL Neutrophils (%) (Auto) 70.5 % Lymphocytes (%) (Auto) 15.9 % Monocytes (%) (Auto) 12.2 % Eosinophils (%) (Auto) 0.9 % Basophils (%) (Auto) 0.3 % Neutrophils # (Auto) 6.06 1.4-6.5 K/uL Lymphocytes # (Auto) 1.37 1.2-3.4 K/uL Monocytes # (Auto) 1.05 0.11-0.59 K/uL Eosinophils # (Auto) 0.08 0-0.5 K/uL Basophils # (Auto) 0.03 0-0.2 K/uL RDW Standard Deviation 46.9 36.4-46.3 fL RDW Coefficient of Variation 13.5 11.5-14.5 % Immature Granulocyte % (Auto) 0.2 % Immature Granulocyte # (Auto) 0.02 0.00-0.02 K/uL Sodium Level 144 136-145 mmol/L Potassium Level 3.7 3.5-5.1 mmol/L Chloride Level 106 98-107 mmol/L Carbon Dioxide Level 32 21-32 mmol/L Anion Gap 6.0 3-11 mmol/L Blood Urea Nitrogen 6 7-18 mg/dl Creatinine 0.59 0.60-1.40 mg/dl Est Creatinine Clear Calc Drug Dose 171.3 ml/min Estimated GFR () 132.1 Estimated GFR (Non- 114.0 BUN/Creatinine Ratio 10.5 10-20 Random Glucose 80 70-99 mg/dl Calcium Level 8.6 8.5-10.1 mg/dl Phosphorus Level 3.5 2.5-4.9 mg/dl Magnesium Level 2.0 1.8-2.4 mg/dl
[2016-11-14 02:46] VITALS: BP 131/87; PULSE 97; TEMP 36.7; O2SAT 97
[2016-11-14] MEDS: DILTIAZEM HCL 30 MG TAB PO SCH ×3 (06:12→20:54)
[2016-11-14] MEDS: DOCUSATE SODIUM 100 MG CAP PO SCH ×2 (07:19→20:55)
[2016-11-14] MEDS: DIVALPROEX SODIUM SPRINKLE 125 MG CAP PO SCH ×3 (07:20→21:47)
[2016-11-14] MEDS: CHOLECALCIFEROL 1000 INTER.UNIT TAB PO SCH (07:20)
[2016-11-14] MEDS: SENNA 8.6 MG TAB PO SCH (07:20)
[2016-11-14] MEDS: AMIODARONE 200 MG TAB PO SCH ×2 (07:20→20:55)
[2016-11-14] MEDS: POTASSIUM CHLORIDE 20 MEQ TABCR PO SCH (07:20)
[2016-11-14] MEDS: GABAPENTIN 600 MG TAB PO SCH ×4 (07:20→20:53)
[2016-11-14] MEDS: ENOXAPARIN 80 MG/0.8 ML SYR SQ SCH ×2 (07:21→20:56)
[2016-11-14] MEDS: NICOTINE 21 MG/24 HR TDSY TD SCH ×2 (07:23→20:58)
[2016-11-14] MEDS: CEROVITE ADV FORMULA TAB PO SCH (07:25)
[2016-11-14] MEDS: POLYETHYLENE (MIRALAX) 17 GM PACK PO SCH (07:26)
[2016-11-14] MEDS: THIAMINE HCL 100 MG TAB PO SCH (07:26)
[2016-11-14 08:30] VITALS: BP 129/63; PULSE 76; PULSE 90; TEMP 36.5; O2SAT 95
[2016-11-14] MEDS: TRIAMCINOLONE ACET 0.025% CR 15 GM TUBE EXT SCH ×2 (09:00→20:55)
[2016-11-14 12:03] VITALS: BP 128/71; PULSE 94; TEMP 36.6; O2SAT 97
[2016-11-14 15:14] VITALS: BP 139/96; PULSE 108; TEMP 36.9; O2SAT 100
--- NOTE | 2016-11-14 18:35 | Progress Note ---
Internal Med Progress Note Date of Service: Nov 14, 2016. Provider Documentation: SUBJECTIVE: sitting on the chair comfortably and talking incessantly says he is doing fine slept fine eating good moved bowels says waiting to be discharged this week OBJECTIVE: Vital Signs-as noted below Exam: General-alert and awake. Not in distress ENT-Normal hearing Neck-no neck masses, supple Lungs-cta b/l no wheezing or crackles Heart-s1 and s2 heard regular rate and rhythm, no murmurs Abdomen-soft bowel sounds present non tender no distension Extremities-no edema, no erythema Neuro-alert and awake moves extremities Lab data as noted below. 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 currently Precedex stopped on gabapentin and Ativan prn clonidine prn close monitor appreciate psychiatry inputs still requiring one on one plan for locked unit placement social service helping with placement AF with RVR Was on IV Amiodarone and then to Oral Full anticoagulation with Lovenox currently rate is controlled on po amiodarone and po Cardizem Likely not a candidate for medical terminologist anticoagulation stable will continue to monitor DELIRIUM TREMENS secondary to Alcohol abuse s/p Extubation Was on versed and propofol drip To Continue thiamine with higher doses Folic acid EEG- no seizure activity Required heavy dose of Benzodiazepines and was on Precedex drip currently on ativan prn Awaiting placement 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 and then resumed usual dose Appreciate Psychiatry input agitated on and off will monitor Stable/resolved conditions: PNEUMONIA Likely secondary to Aspiration CXR showed Progression of bibasilar opacities, right greater than left Received Unasyn and Zithromax Has had a bronch done 10/22 Bronchial washings sent for culture and Gram stain, cx growth normal amish completed abx course Elevated Liver Enzymes likely secondary to alcohol abuse -Hepatitis B and C negative improving Nutrition Was on NGT feeding Started on oral diet and tolerating fine THROMBOCYTOPENIA secondary to Alcohol abuse and Cirrhosis platelet improved from 35 to 50-->73 resolved ELEVATED CK LEVEL Likely from recurrent trauma Resolved Electrolytes Imbalance Supplement and Monitor TOBACCO ABUSE Nicotine patch ordered DVT PROPHYLAXIS: on Lovenox CODE STATUS: FULL CODE 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 Procedures: Bronchoscopy Monitor in tele plan for placement Vital Signs: Date Time Temp Pulse Resp B/P (MAP) Pulse Ox O2 Delivery O2 Flow Rate FiO2 6/6/17 16:00 Room Air 11/14/16 15:14 36.9 108 20 139/96 (110) 100 Room Air 11/14/16 12:03 36.6 94 18 128/71 (90) 97 11/14/16 12:00 Room Air 11/14/16 08:30 36.5 90 18 129/63 (85) 95 11/14/16 08:00 Room Air 11/14/16 04:00 Room Air 11/14/16 02:46 36.7 97 18 131/87 (102) 97 Room Air 11/13/16 23:59 Room Air 11/13/16 23:08 36.8 96 17 125/84 (98) 97 Room Air 11/13/16 20:00 Room Air 11/13/16 19:38 37.0 100 19 136/90 (105) 96 Room Air Lab Results: Microbiology Results 11/14/16 MRSA DNA Surveillance Screen - Final, Complete Specimen Negative for MRSA by DNA Probe
[2016-11-14 18:58] VITALS: BP 153/57; PULSE 105; TEMP 36.9; O2SAT 98
[2016-11-14] MEDS: LORAZEPAM 2 MG TAB PO PRN (20:52)
[2016-11-14 23:22] VITALS: BP 109/69; PULSE 89; TEMP 36.4; O2SAT 95
[2016-11-15] VITALS (8 sets, daily range): BP systolic 120–137; BP diastolic 71–91; PULSE 90–99; TEMP 36.8–36.9; O2SAT 94–98
[2016-11-15] MEDS: LORAZEPAM 2 MG TAB PO PRN (01:53)
[2016-11-15] MEDS: DILTIAZEM HCL 30 MG TAB PO SCH ×3 (05:43→21:28)
[2016-11-15] MEDS: AMIODARONE 200 MG TAB PO SCH ×2 (07:05→21:25)
[2016-11-15] MEDS: THIAMINE HCL 100 MG TAB PO SCH (07:05)
[2016-11-15] MEDS: GABAPENTIN 600 MG TAB PO SCH ×4 (07:05→21:26)
[2016-11-15] MEDS: DOCUSATE SODIUM 100 MG CAP PO SCH ×2 (07:06→21:25)
[2016-11-15] MEDS: CEROVITE ADV FORMULA TAB PO SCH (07:06)
[2016-11-15] MEDS: CHOLECALCIFEROL 1000 INTER.UNIT TAB PO SCH (07:06)
[2016-11-15] MEDS: SENNA 8.6 MG TAB PO SCH (07:06)
[2016-11-15] MEDS: POTASSIUM CHLORIDE 20 MEQ TABCR PO SCH (07:07)
[2016-11-15] MEDS: DIVALPROEX SODIUM SPRINKLE 125 MG CAP PO SCH ×3 (07:07→21:27)
[2016-11-15] MEDS: ENOXAPARIN 80 MG/0.8 ML SYR SQ SCH ×2 (07:08→21:28)
[2016-11-15] MEDS: POLYETHYLENE (MIRALAX) 17 GM PACK PO SCH (07:13)
[2016-11-15] MEDS: TRIAMCINOLONE ACET 0.025% CR 15 GM TUBE EXT SCH ×2 (07:14→21:00)
--- NOTE | 2016-11-15 12:05 | DIAGNOSTIC IMAGING REPORT ---
KUB CLINICAL HISTORY: Left-sided abdominal pain. FINDINGS: 2 AP supine abdominal radiographs are compared to study dated 10/28/2016 and correlated with abdominal CT dated 10/20/2016. The enteric tube has been removed from previous. There is a nonobstructed abdominal bowel gas pattern noting moderate colonic fecal retention. No evidence of intraperitoneal free air is seen on these supine views. There are no abnormal abdominal calcifications. The bony structures appear intact. IMPRESSION: Moderate constipation. Electronically signed by: Brice Suero M.D. 11/15/2016 12:04 PM Dictated Date/Time: 11/15/2016 12:03 PM
--- NOTE | 2016-11-15 16:47 | Progress Note ---
Internal Med Progress Note Date of Service: Nov 15, 2016. Provider Documentation: SUBJECTIVE: moved bowels complains of left sided abdominal pain afebrile eating fine ambulating fine OBJECTIVE: Vital Signs-as noted below Exam: General-alert and awake. Not in distress ENT-Normal hearing Neck-no neck masses, supple Lungs-cta b/l no wheezing or crackles Heart-s1 and s2 heard regular rate and rhythm, no murmurs Abdomen-soft bowel sounds present Left side tender no distension Extremities-no edema, no erythema Neuro-alert and awake moves extremities Lab data as noted below. 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 currently Precedex stopped on gabapentin and Ativan prn clonidine prn close monitor appreciate psychiatry inputs still requiring one on one plan for locked unit placement social service helping with placement continue same AF with RVR Was on IV Amiodarone and then to Oral Full anticoagulation with Lovenox currently rate is controlled on po amiodarone and po Cardizem Likely not a candidate for nursing home anticoagulation stable will continue to monitor Abdominal pain left side kub moderate constipation will start on stool softeners DELIRIUM TREMENS secondary to Alcohol abuse s/p Extubation Was on versed and propofol drip To Continue thiamine with higher doses Folic acid EEG- no seizure activity Required heavy dose of Benzodiazepines and was on Precedex drip currently on ativan prn Awaiting placement 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 and then resumed usual dose Appreciate Psychiatry input agitated on and off will monitor Stable/resolved conditions: PNEUMONIA Likely secondary to Aspiration CXR showed Progression of bibasilar opacities, right greater than left Received Unasyn and Zithromax Has had a bronch done 10/22 Bronchial washings sent for culture and Gram stain, cx growth normal amish completed abx course Elevated Liver Enzymes likely secondary to alcohol abuse -Hepatitis B and C negative improving Nutrition Was on NGT feeding Started on oral diet and tolerating fine THROMBOCYTOPENIA secondary to Alcohol abuse and Cirrhosis platelet improved from 35 to 50-->73 resolved ELEVATED CK LEVEL Likely from recurrent trauma Resolved Electrolytes Imbalance Supplement and Monitor TOBACCO ABUSE Nicotine patch ordered DVT PROPHYLAXIS: on Lovenox CODE STATUS: FULL CODE 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 Procedures: Bronchoscopy transfer to medical floor plan for placement Vital Signs: Date Time Temp Pulse Resp B/P (MAP) Pulse Ox O2 Delivery O2 Flow Rate FiO2 11/15/16 16:00 Room Air 11/15/16 15:21 36.9 94 18 120/90 (100) 97 Room Air 11/15/16 12:35 36.9 92 20 122/85 (97) 94 Room Air 11/15/16 12:00 Room Air 11/15/16 09:29 36.8 97 20 137/83 (101) 98 Room Air 11/15/16 08:00 Room Air 11/15/16 04:00 95 Room Air 11/15/16 02:32 36.8 99 17 120/71 (87) 95 Room Air 11/15/16 00:01 95 Room Air 11/14/16 23:22 36.4 89 18 109/69 (82) 95 Room Air 11/14/16 20:00 Room Air 11/14/16 18:58 36.9 105 20 153/57 (89) 98 Room Air
[2016-11-15] MEDS ORDERED: LACTULOSE SYRUP 20 GM/30 ML UDC PO STA (16:49)
[2016-11-15] MEDS: DOCUSATE SODIUM/SENNA 50/8.6MG TAB PO SCH (21:27)
[2016-11-16] MEDS: LORAZEPAM 2 MG TAB PO PRN (00:55)
[2016-11-16] MEDS: DILTIAZEM HCL 30 MG TAB PO SCH ×3 (06:07→20:51)
[2016-11-16 07:09] VITALS: BP 136/69; PULSE 101; TEMP 36.7; O2SAT 94
[2016-11-16 08:00] VITALS: O2SAT 94
[2016-11-16] MEDS: DOCUSATE SODIUM 100 MG CAP PO SCH ×2 (08:34→20:49)
[2016-11-16] MEDS: ENOXAPARIN 80 MG/0.8 ML SYR SQ SCH ×2 (08:34→20:47)
[2016-11-16] MEDS: CEROVITE ADV FORMULA TAB PO SCH (08:34)
[2016-11-16] MEDS: SENNA 8.6 MG TAB PO SCH (08:35)
[2016-11-16] MEDS: THIAMINE HCL 100 MG TAB PO SCH (08:35)
[2016-11-16] MEDS: GABAPENTIN 600 MG TAB PO SCH ×4 (08:36→20:49)
[2016-11-16] MEDS: AMIODARONE 200 MG TAB PO SCH ×2 (08:36→20:49)
[2016-11-16] MEDS: DIVALPROEX SODIUM SPRINKLE 125 MG CAP PO SCH ×3 (08:36→20:48)
[2016-11-16] MEDS: CHOLECALCIFEROL 1000 INTER.UNIT TAB PO SCH (08:37)
[2016-11-16] MEDS: POTASSIUM CHLORIDE 20 MEQ TABCR PO SCH (08:37)
[2016-11-16] MEDS: NICOTINE 21 MG/24 HR TDSY TD SCH (08:38)
[2016-11-16] MEDS: POLYETHYLENE (MIRALAX) 17 GM PACK PO SCH (08:46)
[2016-11-16] MEDS: TRIAMCINOLONE ACET 0.025% CR 15 GM TUBE EXT SCH ×2 (09:00→20:52)
--- NOTE | 2016-11-16 14:53 | Neurology Consultation ---
Neurology Consultation Date of Consultation: Nov 16, 2016. Attending Physician: Stan Macdonald MD Primary Care Physician: Misha Beltre M.D. (MEDICAL) Reason for Consultation: EtOH abuse- Wernicke-Korsakoff syndrome? History of Present Illness Source: patient Stuart is a 56 year old male with PMH of alcohol abuse presents to the ED complaining of tremors x 4 days. When he presented to the hospital he had been hallucinating which nursing staff . Apparently friends had noticed that patient had been falling down very often. Over the last few weeks he had been cutting back on alcohol and hasn't had any for four days until he had 1.5 beers that morning. He states he has about 6 beers most nights. On exam he was tremulous, hallucinating and trying to climb out of bed. He is oriented to self only. He states he has been having seizures and that he has had them in the past. There was no seizure activity while in the ED. In the ED VS are stable, LFTs are elevated platelet count is 39, lactate is 2.8, CT head was negative, CXR shows rib fractures with various stages of healing. He received 6mg of IV Ativan total , 5mg Valium, and Librium and was still very agitated. Today he is sitting on the side of the bed. He states he was on a kenyatta prior to admission. He and a friend tried to drink a keg of beer themselves. He states they didn't do it but he was very drunk and is really unclear at what point he came to the ED although he does think the police brought him. He thinks they are going to keep him here for another week. He has no complains and feels good today. He has been eating and drinking well. He states he uses no other drugs however his marijuana screen is positive. Past Medical/Surgical History Medical Problems: (1) Alcohol withdrawal Status: Acute (2) Dehydration Status: Acute (3) Multiple contusions Status: Acute (4) Tremor Status: Acute Social History Smokeless Tobacco Use: Yes Alcohol Use: heavy (exact amount unclear) Drug Use: other Marital Status: , in relationship (Susanna Yanbhupinder) Housing Status: lives alone Occupation Status: unemployed Allergies Coded Allergies: Ibuprofen (Unverified Allergy, Unknown, FACIAL SWELLING, 10/20/16) Current Inpatient Medications Current Inpatient Medications Medications (Trade) Dose Ordered Sig/Rica Route Start Time Stop Time Status Last Admin Dose Admin Acetaminophen (Tylenol Tab) 650 mg Q4H PRN PO 10/20/16 16:00 11/19/16 15:59 Ondansetron HCl (Zofran Inj) 4 mg Q6H PRN IV 10/20/16 16:00 11/19/16 15:59 10/20/16 19:31 4 MG Lorazepam (Ativan Inj) PRN Dosing -Active Protocol Q1H PRN IV 10/20/16 16:00 11/19/16 15:59 Future Hold 11/12/16 23:16 2 MG Folic Acid (Folvite Tab) 1 mg QAM PO 10/21/16 09:00 11/20/16 08:59 11/16/16 08:37 1 MG Polyethylene (Miralax Powder Packet) 17 gm QAM PO 10/23/16 09:00 11/22/16 08:59 11/16/16 08:46 17 GM Heparin Sodium (Porcine) (Heparin 10 Unit/ ml 5 ml Flush) 5 ml PRN PRN FLUSH 10/24/16 01:45 11/23/16 01:44 10/31/16 13:16 10 ML Bisacodyl (Dulcolax Supp) 10 mg DAILY PRN VA 10/27/16 09:00 11/26/16 08:59 10/29/16 07:16 10 MG Cholecalciferol (Vitamin D Tab) 2,000 inter.unit DAILY PO 10/27/16 14:30 11/26/16 14:29 11/16/16 08:37 2,000 INTER.UNIT Triamcinolone Acetonide (Kenalog 0.025% Crm) 1 appln BID EXT 10/29/16 21:00 11/28/16 20:59 11/16/16 09:00 1 APPLN Albuterol/ Ipratropium (Duoneb) 3 ml Q6H PRN INH 10/30/16 10:00 11/29/16 09:59 Magnesium Oxide (Mag-Ox Tab) 400 mg DAILY PO 11/01/16 09:00 12/01/16 08:59 Future Hold 11/02/16 07:50 400 MG Gabapentin (Neurontin Tab) 600 mg QID PO 11/07/16 17:00 12/07/16 16:59 11/16/16 14:01 600 MG Divalproex Sodium (Depakote Sprinkle Cap) 625 mg TID PO 11/07/16 14:00 12/07/16 13:59 11/16/16 14:02 625 MG Nicotine (Nicoderm Cq 21MG Patch) 1 patch QAM TD 11/07/16 19:30 12/07/16 19:29 11/16/16 08:38 1 PATCH Miscellaneous (Remove Nicoderm Patch) 1 ea HS N/A 11/07/16 21:00 12/07/16 20:59 11/15/16 21:25 1 EA Enoxaparin Sodium (Lovenox Inj) 80 mg Q12 SQ 11/09/16 21:00 11/24/16 08:59 11/16/16 08:34 80 MG Thiamine HCl (Vitamin B-1 Tab) 200 mg QAM PO 11/10/16 09:00 12/08/16 08:59 11/16/16 08:35 200 MG Amiodarone HCl (Cordarone Tab) 200 mg BID PO 11/09/16 21:00 12/09/16 20:59 11/16/16 08:36 200 MG Metoprolol Tartrate (Lopressor Iv) 5 mg Q6 PRN IV 11/09/16 09:30 12/09/16 09:29 11/09/16 12:27 5 MG Lorazepam (Ativan Inj) 2 mg Q6 PRN IV 11/09/16 11:45 12/09/16 11:44 11/10/16 00:57 2 MG Diltiazem HCl (Cardizem Tab) 30 mg Q8 PO 11/09/16 14:00 12/09/16 13:59 11/16/16 14:01 30 MG Clonidine HCl (Catapres Tab) 0.1 mg HS PRN PO 11/12/16 12:30 12/12/16 12:29 11/12/16 20:52 0.1 MG Lorazepam (Ativan Inj) 2 mg HS PRN IV 11/12/16 12:30 12/12/16 12:29 11/12/16 22:30 2 MG Docusate Sodium (coLACE CAP) 100 mg BID PO 11/13/16 09:00 12/13/16 08:59 11/16/16 08:34 100 MG Multivitamins/ Minerals (Multivitamin W/ Minerals Tab) 1 tab QAM PO 11/13/16 09:00 12/13/16 08:59 11/16/16 08:34 1 TAB Potassium Chloride (Klor-Con Tab) 60 meq QAM PO 11/13/16 09:00 12/13/16 08:59 11/16/16 08:37 60 MEQ Senna (Senokot Tab) 17.2 mg QAM PO 11/13/16 09:00 12/13/16 08:59 11/16/16 08:35 17.2 MG Lorazepam (Ativan Tab) 2 mg Q6H PRN PO 11/14/16 20:30 12/14/16 20:29 11/16/16 00:55 2 MG Senna/Docusate Sodium (Senokot S Tab) 2 tab HS PO 11/15/16 21:00 12/15/16 20:59 11/15/16 21:27 2 TAB Physical Exam Vital Signs (Past 24 Hrs): Date Time Temp Pulse Resp B/P (MAP) Pulse Ox O2 Delivery O2 Flow Rate FiO2 11/16/16 08:00 94 Room Air 11/16/16 07:09 36.7 101 20 136/69 (91) 94 Room Air 11/16/16 00:00 Room Air 11/15/16 18:22 36.8 90 18 135/91 (106) 97 Room Air 11/15/16 17:56 36.9 94 18 97 11/15/16 16:00 Room Air 11/15/16 15:21 36.9 94 18 120/90 (100) 97 Room Air Physical Exam: Constitutional: appearance nourished, healthy and appears older than stated age Ears, Nose, Mouth and Throat: mucous membranes moist, no injection and skin normal, eyes normal Cardiovascular: normal S-1 and S-2 and regular rate and rhythm Respiratory: clear to auscultation (CTA) and no rales, rhonchi or wheeze Musculoskeletal: no pitting peripheral edema Skin: multiple scratches and bruises on arms and legs Eyes: extraocular muscles intact (EOMI) and pupils equal, round and reactive to light (PERRL), horizontal nystagmus NEUROLOGIC EXAMINATION: Mental status: Alert and interactive Oriented to 2017, [facility], Leti is president, lives in [place], could not repeat flag, tree, bird after 5 minutes. Oriented to person Speech fluent with no evidence of aphasia Cranial Nerves smile eye brow raise symmetric, tongue midline Reflexes: Deep tendon reflexes were symmetrical and graded 2/5. Plantar responses were flexor. Sensory: intact to vibration and cool touch Coordination: Romberg present with eyes closed bilateral reaching tremor, finger to nose with out bi pass Gait/Stance: Posture normal. Gait normal: tandem gait, arm swing, turns with imbalance, unable to walk heel to toes Motor: Negative for pronator drift of out stretched arms with eyes closed. Strength: biceps triceps deltoids, hand registration officer bilaterally 5/5, hip flex plantar flex ext 5/ 5 Laboratory Results Past 24 Hours: no new labs Imaging CT head with acute abnormalities Impression 56 year old male EtOH withdrawal -MS improving Plan 1. continue thiamine replacement 2. MRI with and without would be helpful to evaluate for Wernicke Korsakoff 3. balance issues to be addressed by PT/OT 4. continue EtOH protocol 5. delirium is improving with current treatment 6. EtOH counseling or outpatient treatment 7. outpatient neuro psych testing would be helpful to evaluate for component of memory loss/dementia 8. will sign off for now will be available for questions I have seen and discussed above patient with Dr Adelaida Mckeon, neurology Hx reviewed. Pt has been agitated at night in setting of protracted hospitalization with ETOH withdrawal and medical complications. Pt CT head done on admission shows atrophy of cerebrum and midline cerebellum very possible to ETOH use. Pt thiamine has been appropriately replaced. There is no reported hx of ophthalmoparesis or complaints of double vision to invoke a Wernickes. MRI brain could determine if there were typical lesions in the mamillary bodies and also exclude chronic vasc disease as contributor to mentation. I do not see evidence of an anterograde amnesia to suggest a Korsakoff's syndrome. I do note decreased STM, minimal if any nystagmus, a wide based gait with difficulty with tandem and mild dystaxia on heel to clemons. No obvious distal sensory loss, but it would not surprise me if pt had a neuropathy. DX ETOH withdrawal, delirium, improving, can't exclude underlying cognitive issues, most likely related to ETOH abuse. Pt has been advised to dc ETOH use. You have checked for other typical etiologies of memory loss. If it is important to quantitate cognition for purposes of competence or safety would recommend formal neuropsych testing. MRI may be helpful as above. Will sign off. Please recontact if there are additional questions SONYA Mckeon MD
[2016-11-16 15:26] VITALS: BP 141/92; PULSE 90; TEMP 36.6; O2SAT 96
--- NOTE | 2016-11-16 15:59 | Psychiatric Progress Notes ---
Psychiatric Progress Note Date of Service Nov 16, 2016. Notes Patient seen as follow-up at request of primary team, ?about competency. Patient states he is feeling well and remains agreeable to any placements recommended by primary team, he is just hoping that he can stay in the area. Saw neurology today for consultation and is aware an MRI is recommended. He is much clearer than previous contact, has been noted to hypertalkative at times. He denies elevated mood and remains on Depakote. Continues with sitter due to hx of gait issues and prolonged withdrawal delirium. He is aware that the [employer] are playing again tonight and continues to list sister and girlfriend as supports. Remains committed to abstinence and attending AA but is still "not interested" in more structured rehab program. MSE: alert, cooperative, orientedX3 though did refer to the board for date (use of referencing is a positive). Thoughts concrete but organized. He denies SI/ HI/jiménez and did not appear to be responding to internal stimuli. Imp: alcohol withdrawal delirium--improved Plan: would advise that primary team consider tapering Ativan further as listed for anxiety, librium has been tapered medical work up for ?korsakoff's per Neurology withdrawal derlirium and mental status change due to higher dose benzos appears to have improved. Competency is ultimately a legal matter and general requires more detailed psychological testing. Adult protective services has assessed patient but I am not privy to findings. At this time, it doesn't appear that he has any evidence of psychiatric disorder (psychosis or disorganized sam) that would interfere with his medical decision making; primary team should rely on family re: baseline there is no indication for psychiatric admission at this time
--- NOTE | 2016-11-16 18:44 | Progress Note ---
Internal Med Progress Note Date of Service: Nov 16, 2016. Provider Documentation: SUBJECTIVE: resting comfortably eating great feeling great ok to stay in hospital until placed afebrile OBJECTIVE: Vital Signs-as noted below Exam: General-alert and awake. Not in distress ENT-Normal hearing Neck-no neck masses, supple Lungs-cta b/l no wheezing or crackles Heart-s1 and s2 heard regular rate and rhythm, no murmurs Abdomen-soft bowel sounds present Left side tender no distension Extremities-no edema, no erythema Neuro-alert and awake moves extremities Lab data as noted below. 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, Benzodiazepines currently Precedex stopped on gabapentin and Ativan prn clonidine prn close monitor appreciate psychiatry inputs still requiring one on one plan for locked unit placement social service helping with placement psychiatry to determine competence continue same AF with RVR Was on IV Amiodarone and then to Oral Full anticoagulation with Lovenox currently rate is controlled on po amiodarone and po Cardizem Likely not a candidate for jail anticoagulation stable will continue to monitor Abdominal pain left side kub moderate constipation will start on stool softeners no complaints DELIRIUM TREMENS secondary to Alcohol abuse s/p Extubation Was on versed and propofol drip To Continue thiamine with higher doses Folic acid EEG- no seizure activity Required heavy dose of Benzodiazepines and was on Precedex drip currently on ativan prn Awaiting placement 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 and then resumed usual dose Appreciate Psychiatry input consulted neurology s we may neuro recommendations for transfer agitated on and off will monitor Stable/resolved conditions: PNEUMONIA Likely secondary to Aspiration CXR showed Progression of bibasilar opacities, right greater than left Received Unasyn and Zithromax Has had a bronch done 10/22 Bronchial washings sent for culture and Gram stain, cx growth normal amish completed abx course Elevated Liver Enzymes likely secondary to alcohol abuse -Hepatitis B and C negative improving Nutrition Was on NGT feeding Started on oral diet and tolerating fine THROMBOCYTOPENIA secondary to Alcohol abuse and Cirrhosis platelet improved from 35 to 50-->73 resolved ELEVATED CK LEVEL Likely from recurrent trauma Resolved Electrolytes Imbalance Supplement and Monitor TOBACCO ABUSE Nicotine patch ordered DVT PROPHYLAXIS: on Lovenox CODE STATUS: FULL CODE Consultants: SENIOR LINUX SYSTEMS ADMINISTRATOR Procedures: Bronchoscopy Await placement Vital Signs: Date Time Temp Pulse Resp B/P (MAP) Pulse Ox O2 Delivery O2 Flow Rate FiO2 11/16/16 16:30 Room Air 11/16/16 15:26 36.6 90 16 141/92 (108) 96 Room Air 11/16/16 08:00 94 Room Air 11/16/16 07:09 36.7 101 20 136/69 (91) 94 Room Air 11/16/16 00:00 Room Air
[2016-11-16] MEDS: DOCUSATE SODIUM/SENNA 50/8.6MG TAB PO SCH (20:50)
[2016-11-17] MEDS: DILTIAZEM HCL 30 MG TAB PO SCH ×2 (05:36→13:38)
[2016-11-17 05:37] VITALS: BP 155/84; PULSE 91; TEMP 36.2; O2SAT 90
[2016-11-17 07:18] VITALS: BP 112/82; PULSE 89; TEMP 36.4; O2SAT 97
[2016-11-17] MEDS: POLYETHYLENE (MIRALAX) 17 GM PACK PO SCH (08:06)
[2016-11-17] MEDS: TRIAMCINOLONE ACET 0.025% CR 15 GM TUBE EXT SCH ×2 (08:06→21:46)
[2016-11-17] MEDS: AMIODARONE 200 MG TAB PO SCH ×2 (08:07→20:32)
[2016-11-17] MEDS: DOCUSATE SODIUM 100 MG CAP PO SCH ×2 (08:07→20:32)
[2016-11-17] MEDS: DIVALPROEX SODIUM SPRINKLE 125 MG CAP PO SCH ×3 (08:08→20:35)
[2016-11-17] MEDS: POTASSIUM CHLORIDE 20 MEQ TABCR PO SCH (08:09)
[2016-11-17] MEDS: CEROVITE ADV FORMULA TAB PO SCH (08:10)
[2016-11-17] MEDS: SENNA 8.6 MG TAB PO SCH (08:10)
[2016-11-17] MEDS: GABAPENTIN 600 MG TAB PO SCH ×4 (08:10→20:33)
[2016-11-17] MEDS: THIAMINE HCL 100 MG TAB PO SCH (08:11)
[2016-11-17] MEDS: CHOLECALCIFEROL 1000 INTER.UNIT TAB PO SCH (08:11)
[2016-11-17] MEDS: ENOXAPARIN 80 MG/0.8 ML SYR SQ SCH (08:13)
[2016-11-17] MEDS: NICOTINE 21 MG/24 HR TDSY TD SCH (08:14)
[2016-11-17 14:32] VITALS: BP 134/86; PULSE 98; TEMP 37; O2SAT 97
--- NOTE | 2016-11-17 17:25 | Progress Note ---
Internal Med Progress Note Date of Service: Nov 17, 2016. Provider Documentation: SUBJECTIVE: [id number] on the alked outside denies an y complaints requesting for vanilla and chocolate ice cream. OBJECTIVE: Vital Signs-as noted below Exam: General-alert and awake. Not in distress ENT-Normal hearing Neck-no neck masses, supple Lungs-cta b/l no wheezing or crackles Heart-s1 and s2 heard regular rate and rhythm, no murmurs Abdomen-soft bowel sounds present Left side tender no distension Extremities-no edema, no erythema Neuro-alert and awake moves extremities Lab data as noted below. 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, Benzodiazepines currently Precedex stopped on gabapentin and Ativan prn clonidine prn close monitor appreciate psychiatry inputs still requiring one on one plan for locked unit placement social service helping with placement psychiatry to determine competence continue same AF with RVR Was on IV Amiodarone and then to Oral Full anticoagulation with Lovenox currently rate is controlled on po amiodarone and po Cardizem Likely not a candidate for care home anticoagulation stable will d/c therapeutic Lovenox Abdominal pain left side kub moderate constipation will start on stool softeners no complaints DELIRIUM TREMENS secondary to Alcohol abuse s/p Extubation Was on versed and propofol drip To Continue thiamine with higher doses Folic acid EEG- no seizure activity Required heavy dose of Benzodiazepines and was on Precedex drip currently on ativan prn-reduced dose of Ativan Awaiting placement 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 and then resumed usual dose Appreciate Psychiatry input consulted neurology s we may neuro recommendations for transfer agitated on and off appreciate neurology inputs Stable/resolved conditions: PNEUMONIA Likely secondary to Aspiration CXR showed Progression of bibasilar opacities, right greater than left Received Unasyn and Zithromax Has had a bronch done 10/22 Bronchial washings sent for culture and Gram stain, cx growth normal amish completed abx course Elevated Liver Enzymes likely secondary to alcohol abuse -Hepatitis B and C negative improving Nutrition Was on NGT feeding Started on oral diet and tolerating fine THROMBOCYTOPENIA secondary to Alcohol abuse and Cirrhosis platelet improved from 35 to 50-->73 resolved ELEVATED CK LEVEL Likely from recurrent trauma Resolved Electrolytes Imbalance Supplement and Monitor TOBACCO ABUSE Nicotine patch ordered DVT PROPHYLAXIS: on Lovenox CODE STATUS: FULL CODE Consultants: AWNING FINISHER Procedures: Bronchoscopy Await placement Vital Signs: Date Time Temp Pulse Resp B/P (MAP) Pulse Ox O2 Delivery O2 Flow Rate FiO2 11/17/16 16:00 Room Air 11/17/16 14:32 37.0 98 18 134/86 (102) 97 11/17/16 08:00 Room Air 11/17/16 07:18 36.4 89 18 112/82 (92) 97 Room Air 11/17/16 05:37 36.2 91 155/84 (107) 90 Room Air 11/17/16 00:00 Room Air
[2016-11-17] MEDS ORDERED: LORAZEPAM 1 MG TAB PO PRN (17:30)
[2016-11-17] MEDS: DOCUSATE SODIUM/SENNA 50/8.6MG TAB PO SCH (20:35)
[2016-11-17 23:21] VITALS: BP 112/69; PULSE 81; TEMP 36.6; O2SAT 95
[2016-11-18 07:18] VITALS: BP 122/83; PULSE 94; TEMP 36.9; O2SAT 94
[2016-11-18] MEDS: THIAMINE HCL 100 MG TAB PO SCH (07:25)
[2016-11-18] MEDS: CEROVITE ADV FORMULA TAB PO SCH (07:26)
[2016-11-18] MEDS: DILTIAZEM HCL 120 MG ER CAP PO SCH (07:26)
[2016-11-18] MEDS: ENOXAPARIN 40 MG/0.4 ML SYR SQ SCH (07:26)
[2016-11-18] MEDS: DOCUSATE SODIUM 100 MG CAP PO SCH ×2 (07:26→21:06)
[2016-11-18] MEDS: AMIODARONE 200 MG TAB PO SCH ×2 (07:27→21:08)
[2016-11-18] MEDS: POTASSIUM CHLORIDE 20 MEQ TABCR PO SCH (07:27)
[2016-11-18] MEDS: GABAPENTIN 600 MG TAB PO SCH ×4 (07:28→21:07)
[2016-11-18] MEDS: DIVALPROEX SODIUM SPRINKLE 125 MG CAP PO SCH ×3 (07:28→21:09)
[2016-11-18] MEDS: CHOLECALCIFEROL 1000 INTER.UNIT TAB PO SCH (07:29)
[2016-11-18] MEDS: POLYETHYLENE (MIRALAX) 17 GM PACK PO SCH (07:29)
[2016-11-18] MEDS: NICOTINE 21 MG/24 HR TDSY TD SCH (07:29)
[2016-11-18] MEDS: SENNA 8.6 MG TAB PO SCH (07:31)
[2016-11-18] MEDS: TRIAMCINOLONE ACET 0.025% CR 15 GM TUBE EXT SCH ×2 (07:33→21:06)
[2016-11-18 14:29] VITALS: BP 138/85; PULSE 98; TEMP 36.8; O2SAT 98
--- NOTE | 2016-11-18 16:50 | Progress Note ---
Internal Med Progress Note Date of Service: Nov 18, 2016. Provider Documentation: SUBJECTIVE: sitting in the chair comfortably afebrile eating great Want to walk outside OBJECTIVE: Vital Signs-as noted below Exam: General-alert and awake. Not in distress ENT-Normal hearing Neck-no neck masses, supple Lungs-cta b/l no wheezing or crackles Heart-s1 and s2 heard regular rate and rhythm, no murmurs Abdomen-soft bowel sounds present Left side tender no distension Extremities-no edema, no erythema Neuro-alert and awake moves extremities Lab data as noted below. 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 anticoagulation stable will d/c therapeutic Lovenox Abdominal pain left side kub moderate constipation will start on stool softeners no complaints DELIRIUM TREMENS secondary to Alcohol abuse s/p Extubation Was on versed and propofol drip To Continue thiamine with higher doses Folic acid EEG- no seizure activity Required heavy dose of Benzodiazepines and was on Precedex drip currently on ativan prn-reduced dose of Ativan Awaiting placement 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 and then resumed usual dose Appreciate Psychiatry input consulted neurology s we may neuro recommendations for transfer agitated on and off appreciate neurology inputs Stable/resolved conditions: PNEUMONIA Likely secondary to Aspiration CXR showed Progression of bibasilar opacities, right greater than left Received Unasyn and Zithromax Has had a bronch done 10/22 Bronchial washings sent for culture and Gram stain, cx growth normal amish completed abx course Elevated Liver Enzymes likely secondary to alcohol abuse -Hepatitis B and C negative improving Nutrition Was on NGT feeding Started on oral diet and tolerating fine THROMBOCYTOPENIA secondary to Alcohol abuse and Cirrhosis platelet improved from 35 to 50-->73 resolved ELEVATED CK LEVEL Likely from recurrent trauma Resolved Electrolytes Imbalance Supplement and Monitor TOBACCO ABUSE Nicotine patch ordered DVT PROPHYLAXIS: on Lovenox CODE STATUS: FULL CODE Consultants: LOGISTICS MANAGEMENT SPECIALIST Procedures: Bronchoscopy Await placement Vital Signs: Date Time Temp Pulse Resp B/P (MAP) Pulse Ox O2 Delivery O2 Flow Rate FiO2 11/18/16 16:36 Room Air 11/18/16 14:29 36.8 98 18 138/85 (102) 98 11/18/16 08:00 Room Air 11/18/16 07:18 36.9 94 18 122/83 (96) 94 11/18/16 00:15 Room Air 11/17/16 23:21 36.6 81 20 112/69 (83) 95 Room Air
[2016-11-18] MEDS: DOCUSATE SODIUM/SENNA 50/8.6MG TAB PO SCH (21:07)
[2016-11-18 23:34] VITALS: BP 130/81; PULSE 79; TEMP 36.3; O2SAT 94
[2016-11-19 07:18] VITALS: BP 138/86; PULSE 95; TEMP 36.5; O2SAT 94
[2016-11-19] MEDS: TRIAMCINOLONE ACET 0.025% CR 15 GM TUBE EXT SCH ×2 (09:41→21:12)
[2016-11-19] MEDS: DOCUSATE SODIUM 100 MG CAP PO SCH ×2 (09:42→21:11)
[2016-11-19] MEDS: AMIODARONE 200 MG TAB PO SCH ×2 (09:42→21:10)
[2016-11-19] MEDS: DIVALPROEX SODIUM SPRINKLE 125 MG CAP PO SCH ×3 (09:43→21:10)
[2016-11-19] MEDS: DILTIAZEM HCL 120 MG ER CAP PO SCH (09:43)
[2016-11-19] MEDS: POTASSIUM CHLORIDE 20 MEQ TABCR PO SCH (09:44)
[2016-11-19] MEDS: GABAPENTIN 600 MG TAB PO SCH ×3 (09:45→21:11)
[2016-11-19] MEDS: SENNA 8.6 MG TAB PO SCH (09:45)
[2016-11-19] MEDS: CEROVITE ADV FORMULA TAB PO SCH (09:45)
[2016-11-19] MEDS: POLYETHYLENE (MIRALAX) 17 GM PACK PO SCH (09:45)
[2016-11-19] MEDS: CHOLECALCIFEROL 1000 INTER.UNIT TAB PO SCH (09:46)
[2016-11-19] MEDS: THIAMINE HCL 100 MG TAB PO SCH (09:46)
[2016-11-19] MEDS: ENOXAPARIN 40 MG/0.4 ML SYR SQ SCH (09:47)
[2016-11-19] MEDS: NICOTINE 21 MG/24 HR TDSY TD SCH (09:49)
[2016-11-19 14:41] VITALS: BP 120/73; PULSE 91; TEMP 36.9; O2SAT 97
--- NOTE | 2016-11-19 16:24 | Progress Note ---
Internal Med Progress Note Date of Service: Nov 19, 2016. Provider Documentation: SUBJECTIVE: sitting in the chair comfortably says ambulated fine couldn't sleep well last night he had pain on left side has some left sided chest abby while taking deep breaths but says he is doing fine awaiting placement OBJECTIVE: Vital Signs-as noted below Exam: General-alert and awake. Not in distress ENT-Normal hearing Neck-no neck masses, supple Lungs-cta b/l no wheezing or crackles Heart-s1 and s2 heard regular rate and rhythm, no murmurs Abdomen-soft bowel sounds present Left side tender no distension Extremities-no edema, no erythema Neuro-alert and awake moves extremities Lab data as noted below. 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 was on Precedex which is stopped now on gabapentin and Ativan prn will taper down gabapentin clonidine prn close monitor appreciate psychiatry inputs off of one on one plan for locked unit placement social service helping with placement seen by psychiatry for competence stable awaiting placement AF with RVR Was on IV Amiodarone and then to Oral Initially received full anticoagulation with Lovenox currently rate is controlled on po amiodarone and po Cardizem Likely not a candidate for retirement anticoagulation stable will d/c therapeutic Lovenox Abdominal pain left side kub moderate constipation will start on stool softeners no complaints Left sided chest pain on deep breaths will get cxr, ekg and troponin will monitor DELIRIUM TREMENS secondary to Alcohol abuse s/p Extubation Was on versed and propofol drip To Continue thiamine with higher doses Folic acid EEG- no seizure activity Required heavy dose of Benzodiazepines and was on Precedex drip currently on ativan prn-reduced dose of Ativan will taper gabapentin Awaiting placement 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 and then resumed usual dose Appreciate Psychiatry input consulted neurology s we may neuro recommendations for transfer agitated on and off appreciate neurology inputs Stable/resolved conditions: PNEUMONIA Likely secondary to Aspiration CXR showed Progression of bibasilar opacities, right greater than left Received Unasyn and Zithromax Has had a bronch done 10/22 Bronchial washings sent for culture and Gram stain, cx growth normal amish completed abx course Elevated Liver Enzymes likely secondary to alcohol abuse -Hepatitis B and C negative improving Nutrition Was on NGT feeding Started on oral diet and tolerating fine THROMBOCYTOPENIA secondary to Alcohol abuse and Cirrhosis platelet improved from 35 to 50-->73 resolved ELEVATED CK LEVEL Likely from recurrent trauma Resolved Electrolytes Imbalance Supplement and Monitor f/u labs TOBACCO ABUSE Nicotine patch ordered DVT PROPHYLAXIS: on Lovenox CODE STATUS: FULL CODE 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
[2016-11-19 17:21] LABS: BLOOD UREA NITROGEN 12 mg/dl (7-18); BUN/CREATININE RATIO 15.9 (10-20); CALCIUM 8.2 mg/dl (8.5-10.1); CARBON DIOXIDE 30 mmol/L (21-32); CHLORIDE 106 mmol/L (98-107); CREATININE 0.78 mg/dl (0.60-1.40); GLUCOSE 112 mg/dl (70-99); MAGNESIUM 2.2 mg/dl (1.8-2.4); POTASSIUM 4.3 mmol/L (3.5-5.1); SODIUM 143 mmol/L (136-145)
--- NOTE | 2016-11-19 19:48 | DIAGNOSTIC IMAGING REPORT ---
CHEST ONE VIEW PORTABLE CLINICAL HISTORY: Pleuritic chest pain COMPARISON STUDY: 11/09/2016 FINDINGS: The cardiac and mediastinal contours are normal. There is no evidence of focal pulmonary consolidation. There is no evidence of failure. No pleural effusions are visualized.[ No pneumothorax is visualized. There are multiple old rib fractures. IMPRESSION: No active disease in the chest. Electronically signed by: Jose Villanueva M.D. 11/19/2016 7:46 PM Dictated Date/Time: 11/19/2016 7:46 PM
[2016-11-19] MEDS: DOCUSATE SODIUM/SENNA 50/8.6MG TAB PO SCH (21:12)
[2016-11-19 23:07] VITALS: BP 147/89; PULSE 81; TEMP 36.9; O2SAT 97
[2016-11-20 05:45] LABS: BASO % 0.4 %; BASO ABS # 0.02 K/uL (0-0.2); COMPLETE YES; EOS % 0.9 %; HEMATOCRIT 37.9 % (42-52); IG% 0.7 %; MEAN CELL VOLUME 95.5 fL (80-100); MEAN CORPUSCULAR HEMOGLOBIN 31.5 pg (25-34); MEAN PLATELET VOLUME 9.5 fL (7.4-10.4); MONO % 8.1 %; NEUT % 53.9 %; PLATELET COUNT 144 K/uL (130-400); RED BLOOD COUNT 3.97 M/uL (4.7-6.1); WHITE BLOOD COUNT 5.55 K/uL (4.8-10.8)
[2016-11-20 06:20] LABS: BUN/CREATININE RATIO 11.7 (10-20); CALCIUM 8.6 mg/dl (8.5-10.1); CREATININE 0.65 mg/dl (0.60-1.40); MAGNESIUM 2.3 mg/dl (1.8-2.4); POTASSIUM 4.8 mmol/L (3.5-5.1)
[2016-11-20 07:32] VITALS: BP 112/75; PULSE 86; TEMP 36.4; O2SAT 96
[2016-11-20] MEDS: AMIODARONE 200 MG TAB PO SCH ×2 (08:47→20:29)
[2016-11-20] MEDS: TRIAMCINOLONE ACET 0.025% CR 15 GM TUBE EXT SCH ×2 (08:47→20:34)
[2016-11-20] MEDS: DOCUSATE SODIUM 100 MG CAP PO SCH ×2 (08:47→20:29)
[2016-11-20] MEDS: DIVALPROEX SODIUM SPRINKLE 125 MG CAP PO SCH ×3 (08:48→20:30)
[2016-11-20] MEDS: CEROVITE ADV FORMULA TAB PO SCH (08:55)
[2016-11-20] MEDS: THIAMINE HCL 100 MG TAB PO SCH (08:55)
[2016-11-20] MEDS: GABAPENTIN 600 MG TAB PO SCH ×3 (08:56→20:31)
[2016-11-20] MEDS: CHOLECALCIFEROL 1000 INTER.UNIT TAB PO SCH (08:58)
[2016-11-20] MEDS: SENNA 8.6 MG TAB PO SCH (08:58)
[2016-11-20] MEDS: ENOXAPARIN 40 MG/0.4 ML SYR SQ SCH (08:59)
[2016-11-20] MEDS: NICOTINE 21 MG/24 HR TDSY TD SCH (08:59)
[2016-11-20 09:18] VITALS: BP 138/89; PULSE 90
[2016-11-20] MEDS: POLYETHYLENE (MIRALAX) 17 GM PACK PO SCH (09:20)
[2016-11-20] MEDS: DILTIAZEM HCL 120 MG ER CAP PO SCH (09:20)
--- NOTE | 2016-11-20 14:33 | Progress Note ---
Internal Med Progress Note Date of Service: Nov 20, 2016. Provider Documentation: SUBJECTIVE: The Patient was seen and examined Remains pleasantly confused Has been in medical floor Denies any complaints OBJECTIVE: Vital Signs-as noted below Exam: General-Pleasantly Confused Ambulating without difficulty but under supervision Eyes-normal ENT-Normal Neck-supple Lungs-clear Heart-Regular,no murmur appreciated Abdomen-Benign,no masses,bowel sound present Extremities-No edema Neuro-AA Ambulating with supervision Lab data as noted below. 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 Weaned off Benzodiazepines Remains pleasantly confused Appreciate Neurology input and recommendation.will get MRI Awaiting Inpatient rehab Social service is on Board Has been on Gabapentin AF with RVR Was on IV Amiodarone and then to Oral Full anticoagulation with Lovenox Rate is controlled Likely not a candidate for snf anticoagulation Started on oral Amiodarone and Cardizem-rate controlled Remains in SR and rate is controlled ADMITTED WITH DELIRIUM TREMENS -secondary to Alcohol abuse -REQUIRED INTUBATION -Was on versed and propofol drip -Continue thiamine with higher doses Folic acid and IVF - EEG done showed no seizure activity -Required heavy dose of Benzodiazepines -WEANED OFF -Getting Gabapentin and Clonidine -remains pleasantly confused - PT/OT started at bedside and progress as tolerated -has been on Thiamin,Folate,Gabapentin and Clonidine 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 and then resumed usual dose Appreciate Psychiatry input Taper down Benzodiazepine -will be a slow process Seroquel started Remains pleasantly confused but improving very slowly Not suicidal or harmful to others Appreciate Neurology input Will get MRI of the head to any changes due to Wernicke PNEUMONIA Likely secondary to Aspiration Treatment done Elevated Liver Enzymes -likely secondary to alcohol abuse -Hepatitis B and C negative -continue monitor liver enzymes-improving Nutrition Was on NGT feeding Ongoing Swallowing evaluation Started on oral diet and tolerating regular food THROMBOCYTOPENIA -secondary to Alcohol abuse and Cirrhosis -platelet improved from 35 to 50-->73 today -no pharmacologic anticoagulation initially -normalized Electrolytes Imbalance Supplement and Monitor TOBACCO ABUSE -Nicotine patch ordered DVT PROPHYLAXIS: Received full anticoagulation due to AF with RVR Not a candidate for snf anticoagulation On Lovenox preventive dose now CODE STATUS: FULL CODE 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 Procedures: Bronchoscopy Family 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 by [employer] will need inpatient rehab Vital Signs: Date Time Temp Pulse Resp B/P (MAP) Pulse Ox O2 Delivery O2 Flow Rate FiO2 11/20/16 09:18 90 138/89 (105) 11/20/16 07:32 36.4 86 20 112/75 (87) 96 Room Air 11/20/16 07:30 Room Air 11/20/16 03:43 Room Air 11/19/16 23:30 Room Air 11/19/16 23:07 36.9 81 20 147/89 (108) 97 Room Air 11/19/16 20:47 Room Air 11/19/16 16:00 Room Air 11/19/16 14:41 36.9 91 18 120/73 (89) 97 Lab Results: Results Past 24 Hours Test 11/19/16 16:55 11/20/16 05:09 Range/Units Sodium Level 143 146 136-145 mmol/L Potassium Level 4.3 4.8 3.5-5.1 mmol/L Chloride Level 106 108 98-107 mmol/L Carbon Dioxide Level 30 33 21-32 mmol/L Anion Gap 7.0 5.0 3-11 mmol/L Blood Urea Nitrogen 12 8 7-18 mg/dl Creatinine 0.78 0.65 0.60-1.40 mg/dl Est Creatinine Clear Calc Drug Dose 131.4 157.6 ml/min Estimated GFR () 117.8 126.9 Estimated GFR (Non- 101.6 109.5 BUN/Creatinine Ratio 15.9 11.7 10-20 Random Glucose 112 89 70-99 mg/dl Calcium Level 8.2 8.6 8.5-10.1 mg/dl Magnesium Level 2.2 2.3 1.8-2.4 mg/dl Troponin I < 0.015 0-0.045 ng/ml White Blood Count 5.55 4.8-10.8 K/uL Red Blood Count 3.97 4.7-6.1 M/uL Hemoglobin 12.5 14.0-18.0 g/dL Hematocrit 37.9 42-52 % Mean Corpuscular Volume 95.5 80-100 fL Mean Corpuscular Hemoglobin 31.5 25-34 pg Mean Corpuscular Hemoglobin Concent 33.0 32-36 g/dl Platelet Count 144 130-400 K/uL Mean Platelet Volume 9.5 7.4-10.4 fL Neutrophils (%) (Auto) 53.9 % Lymphocytes (%) (Auto) 36.0 % Monocytes (%) (Auto) 8.1 % Eosinophils (%) (Auto) 0.9 % Basophils (%) (Auto) 0.4 % Neutrophils # (Auto) 2.99 1.4-6.5 K/uL Lymphocytes # (Auto) 2.00 1.2-3.4 K/uL Monocytes # (Auto) 0.45 0.11-0.59 K/uL Eosinophils # (Auto) 0.05 0-0.5 K/uL Basophils # (Auto) 0.02 0-0.2 K/uL RDW Standard Deviation 46.8 36.4-46.3 fL RDW Coefficient of Variation 13.5 11.5-14.5 % Immature Granulocyte % (Auto) 0.7 % Immature Granulocyte # (Auto) 0.04 0.00-0.02 K/uL
[2016-11-20 15:23] VITALS: BP 120/79; PULSE 87; TEMP 36.8; O2SAT 96
--- NOTE | 2016-11-20 16:11 | DIAGNOSTIC IMAGING REPORT ---
MRI OF THE BRAIN WITHOUT AND WITH IV CONTRAST CLINICAL HISTORY: Psychosis Wernicke COMPARISON STUDY: MRI the brain February 18, [address] October 26, 2016. TECHNIQUE: Utilizing a 1.5 Denice magnet and dedicated coil, multiplanar, multiecho imaging of the brain was performed pre and postcontrast administration. IV administration of 9 mL of Gadavist contrast was uneventful. FINDINGS: There are no areas of restricted diffusion. No acute intracranial hemorrhage, midline shift or mass effect is present. Ventricular dilatation is unchanged. There is moderate cerebral atrophy. Basilar cisterns are patent. There are no extra-axial collections. There are no intracranial masses or areas of pathologic enhancement. Scattered white matter T2 hyperintense foci suggest small vessel disease. There is no MRI evidence of Wernicke's. Calvarial signal is maintained. A mucous retention cyst within the right maxillary sinus is noted. IMPRESSION: 1. No acute intracranial findings. 2. Moderate atrophy and mild small vessel disease. 3. No intracranial mass or pathologic enhancement. 4. No MRI evidence of Wernicke's. Electronically signed by: Salomón Villalobos M.D. 11/20/2016 4:09 PM Dictated Date/Time: 11/20/2016 3:58 PM
[2016-11-20] MEDS: DOCUSATE SODIUM/SENNA 50/8.6MG TAB PO SCH (20:33)
[2016-11-20 23:38] VITALS: BP 134/82; PULSE 77; TEMP 36.7; O2SAT 97
[2016-11-21 07:04] VITALS: BP 118/78; PULSE 80; TEMP 36.4; O2SAT 94
[2016-11-21 07:47] LABS: BASO % 0.4 %; BASO ABS # 0.02 K/uL (0-0.2); COMPLETE YES; EOS % 1.5 %; HEMATOCRIT 37.8 % (42-52); IG% 0.4 %; LYMPH % 36.2 %; LYMPH ABS # 1.88 K/uL (1.2-3.4); MEAN CELL VOLUME 92.4 fL (80-100); MEAN CORPUSCULAR HGB CONC 34.7 g/dl (32-36); MONO % 8.1 %; NEUT % 53.4 %; PLATELET COUNT 139 K/uL (130-400); RED BLOOD COUNT 4.09 M/uL (4.7-6.1)
[2016-11-21 08:20] LABS: BUN/CREATININE RATIO 9.3 (10-20); CREATININE 0.61 mg/dl (0.60-1.40); MAGNESIUM 2.2 mg/dl (1.8-2.4); POTASSIUM 3.9 mmol/L (3.5-5.1)
[2016-11-21] MEDS: POLYETHYLENE (MIRALAX) 17 GM PACK PO SCH (08:40)
[2016-11-21] MEDS: THIAMINE HCL 100 MG TAB PO SCH (08:40)
[2016-11-21] MEDS: DILTIAZEM HCL 120 MG ER CAP PO SCH (08:40)
[2016-11-21] MEDS: DIVALPROEX SODIUM SPRINKLE 125 MG CAP PO SCH ×3 (08:40→20:46)
[2016-11-21] MEDS: CHOLECALCIFEROL 1000 INTER.UNIT TAB PO SCH (08:41)
[2016-11-21] MEDS: AMIODARONE 200 MG TAB PO SCH ×2 (08:41→20:45)
[2016-11-21] MEDS: DOCUSATE SODIUM 100 MG CAP PO SCH ×2 (08:42→20:45)
[2016-11-21] MEDS: ENOXAPARIN 40 MG/0.4 ML SYR SQ SCH (08:42)
[2016-11-21] MEDS: NICOTINE 21 MG/24 HR TDSY TD SCH (08:42)
[2016-11-21] MEDS: CEROVITE ADV FORMULA TAB PO SCH (08:43)
[2016-11-21] MEDS: GABAPENTIN 600 MG TAB PO SCH ×3 (08:43→20:47)
[2016-11-21] MEDS: SENNA 8.6 MG TAB PO SCH (09:00)
[2016-11-21] MEDS: TRIAMCINOLONE ACET 0.025% CR 15 GM TUBE EXT SCH ×2 (09:00→20:44)
[2016-11-21 09:01] LABS: CALCIUM 9.1 mg/dl (8.5-10.1)
[2016-11-21 10:23] VITALS: O2SAT 94
--- NOTE | 2016-11-21 13:35 | Psychiatric Progress Notes ---
Psychiatric Progress Note Date of Service Nov 21, 2016. Notes ID: Patient reviewed with liaison nurse. family remains concerned about ability to care for self CC: family remains concerned about ability to care for self HPI: per primary service he is no longer meeting criteria for senior care care as more independent with ADLs and he continues to decline inpatient rehab per case management, only willing to walk to AA ROS: denies physical complaints MSE: patient is oriented and ambulating about floor/elevator, interacting appropriately with people, continues to deny SI/HI/jiménez. Imp: alcohol dependence, delirium improved Plan: no further psych recs at this time as cannot be committed to rehab discharge disposition per primary service, CM communicating with Adult protective services re: any further monitoring.
[2016-11-21 15:07] VITALS: BP 133/77; PULSE 83; TEMP 36.5; O2SAT 93
--- NOTE | 2016-11-21 15:57 | Progress Note ---
Internal Med Progress Note Date of Service: Nov 21, 2016. Provider Documentation: SUBJECTIVE: The Patient was seen and examined Remains pleasantly confused Has been in medical floor Denies any complaints Ambulating and communicating normally with others OBJECTIVE: Vital Signs-as noted below Exam: General-Pleasantly Confused Ambulating without difficulty but under supervision Eyes-normal ENT-Normal Neck-supple Lungs-clear Heart-Regular,no murmur appreciated Abdomen-Benign,no masses,bowel sound present Extremities-No edema Neuro-AA Ambulating with supervision Lab data as noted below. 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, Benzodiazepines Weaned off Benzodiazepines Remains pleasantly confused Appreciate Neurology input and recommendation.will get MRI Awaiting Inpatient rehab Social service is on Board Has been on Gabapentin Will wean off gradually AF with RVR Was on IV Amiodarone and then to Oral Full anticoagulation with Lovenox Rate is controlled Likely not a candidate for lobsterman anticoagulation Started on oral Amiodarone and Cardizem-rate controlled Remains in SR and rate is controlled ADMITTED WITH DELIRIUM TREMENS -secondary to Alcohol abuse -REQUIRED INTUBATION -Was on versed and propofol drip -Continue thiamine with higher doses Folic acid and IVF - EEG done showed no seizure activity -Required heavy dose of Benzodiazepines -WEANED OFF -Getting Gabapentin and Clonidine -remains pleasantly confused - PT/OT started at bedside and progress as tolerated -has been on Thiamin,Folate,Gabapentin and Clonidine Possible 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 and then resumed usual dose Appreciate Psychiatry input Taper down Benzodiazepine -will be a slow process Seroquel started Remains pleasantly confused but improving very slowly Not suicidal or harmful to others Appreciate Neurology input Will get MRI of the head to any changes due to Wernicke-No signs of Wernicke or any other acute change PNEUMONIA Likely secondary to Aspiration Treatment done and resolved Elevated Liver Enzymes -likely secondary to alcohol abuse -Hepatitis B and C negative -continue monitor liver enzymes-improving -improved and normalized Nutrition Was on NGT feeding Ongoing Swallowing evaluation Started on oral diet and tolerating regular food Gained weight THROMBOCYTOPENIA -secondary to Alcohol abuse and Cirrhosis -platelet improved from 35 to 50-->73 today -no pharmacologic anticoagulation initially -normalized Electrolytes Imbalance Supplement and Monitor TOBACCO ABUSE -Nicotine patch ordered DVT PROPHYLAXIS: Received full anticoagulation due to AF with RVR Not a candidate for senior care anticoagulation On Lovenox preventive dose now CODE STATUS: FULL CODE 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: 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 Procedures: Bronchoscopy Family 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 by 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 Inspector Does not have any acute Psychosis and behaving almost normally Does not want to go in patient rehab Likely to be discharged home after discussion with the sister Vital Signs: Date Time Temp Pulse Resp B/P (MAP) Pulse Ox O2 Delivery O2 Flow Rate FiO2 11/21/16 15:07 36.5 83 18 133/77 (95) 93 Room Air 11/21/16 10:23 94 Room Air 11/21/16 07:04 36.4 80 18 118/78 (91) 94 Room Air 11/21/16 00:00 Room Air 11/20/16 23:38 36.7 77 20 134/82 (99) 97 Room Air 11/20/16 20:00 Room Air 11/20/16 16:45 Room Air Lab Results: Results Past 24 Hours Test 11/21/16 07:25 Range/Units White Blood Count 5.20 4.8-10.8 K/uL Red Blood Count 4.09 4.7-6.1 M/uL Hemoglobin 13.1 14.0-18.0 g/dL Hematocrit 37.8 42-52 % Mean Corpuscular Volume 92.4 80-100 fL Mean Corpuscular Hemoglobin 32.0 25-34 pg Mean Corpuscular Hemoglobin Concent 34.7 32-36 g/dl Platelet Count 139 130-400 K/uL Mean Platelet Volume 9.0 7.4-10.4 fL Neutrophils (%) (Auto) 53.4 % Lymphocytes (%) (Auto) 36.2 % Monocytes (%) (Auto) 8.1 % Eosinophils (%) (Auto) 1.5 % Basophils (%) (Auto) 0.4 % Neutrophils # (Auto) 2.78 1.4-6.5 K/uL Lymphocytes # (Auto) 1.88 1.2-3.4 K/uL Monocytes # (Auto) 0.42 0.11-0.59 K/uL Eosinophils # (Auto) 0.08 0-0.5 K/uL Basophils # (Auto) 0.02 0-0.2 K/uL RDW Standard Deviation 44.7 36.4-46.3 fL RDW Coefficient of Variation 13.3 11.5-14.5 % Immature Granulocyte % (Auto) 0.4 % Immature Granulocyte # (Auto) 0.02 0.00-0.02 K/uL Sodium Level 141 136-145 mmol/L Potassium Level 3.9 3.5-5.1 mmol/L Chloride Level 106 98-107 mmol/L Carbon Dioxide Level 26 21-32 mmol/L Anion Gap 9.0 3-11 mmol/L Blood Urea Nitrogen 6 7-18 mg/dl Creatinine 0.61 0.60-1.40 mg/dl Est Creatinine Clear Calc Drug Dose 168.0 ml/min Estimated GFR () 130.3 Estimated GFR (Non- 112.4 BUN/Creatinine Ratio 9.3 10-20 Random Glucose 87 70-99 mg/dl Calcium Level 9.1 8.5-10.1 mg/dl Magnesium Level 2.2 1.8-2.4 mg/dl
[2016-11-21] MEDS: DOCUSATE SODIUM/SENNA 50/8.6MG TAB PO SCH (20:48)
[2016-11-21 23:39] VITALS: BP 141/52; PULSE 77; TEMP 36.7; O2SAT 99
[2016-11-22 06:28] LABS: BASO % 0.2 %; BASO ABS # 0.01 K/uL (0-0.2); COMPLETE YES; EOS % 1.7 %; HEMATOCRIT 37.3 % (42-52); IG% 0.2 %; LYMPH % 32.1 %; MEAN CELL VOLUME 94.4 fL (80-100); MEAN CORPUSCULAR HEMOGLOBIN 31.6 pg (25-34); MEAN CORPUSCULAR HGB CONC 33.5 g/dl (32-36); MEAN PLATELET VOLUME 9.1 fL (7.4-10.4); MONO % 10.3 %; NEUT % 55.5 %; PLATELET COUNT 123 K/uL (130-400); RED BLOOD COUNT 3.95 M/uL (4.7-6.1); WHITE BLOOD COUNT 4.67 K/uL (4.8-10.8)
[2016-11-22 07:06] LABS: BUN/CREATININE RATIO 14.8 (10-20); CALCIUM 8.4 mg/dl (8.5-10.1); CREATININE 0.68 mg/dl (0.60-1.40); MAGNESIUM 2.3 mg/dl (1.8-2.4)
[2016-11-22 07:40] VITALS: BP_SYST 113; BP_SYST 124; BP_DIAS 72; BP_DIAS 83; PULSE 87; TEMP 36.5; TEMP 37.1; O2SAT 97
[2016-11-22] MEDS: CEROVITE ADV FORMULA TAB PO SCH (07:54)
[2016-11-22] MEDS: AMIODARONE 200 MG TAB PO SCH (07:54)
[2016-11-22] MEDS: DOCUSATE SODIUM 100 MG CAP PO SCH (07:54)
[2016-11-22] MEDS: ENOXAPARIN 40 MG/0.4 ML SYR SQ SCH (07:54)
[2016-11-22] MEDS: SENNA 8.6 MG TAB PO SCH (07:54)
[2016-11-22] MEDS: DIVALPROEX SODIUM SPRINKLE 125 MG CAP PO SCH ×2 (07:55→13:45)
[2016-11-22] MEDS: NICOTINE 21 MG/24 HR TDSY TD SCH (07:55)
[2016-11-22] MEDS: THIAMINE HCL 100 MG TAB PO SCH (07:55)
[2016-11-22] MEDS: GABAPENTIN 600 MG TAB PO SCH ×2 (07:56→13:44)
[2016-11-22] MEDS: CHOLECALCIFEROL 1000 INTER.UNIT TAB PO SCH (07:56)
[2016-11-22] MEDS: DILTIAZEM HCL 120 MG ER CAP PO SCH (07:56)
[2016-11-22] MEDS: POLYETHYLENE (MIRALAX) 17 GM PACK PO SCH (07:58)
[2016-11-22 08:00] VITALS: O2SAT 97
[2016-11-22] MEDS: TRIAMCINOLONE ACET 0.025% CR 15 GM TUBE EXT SCH (09:00)
[2016-11-22 15:22] VITALS: BP 146/92; PULSE 80; TEMP 36.6; O2SAT 98
--- NOTE | 2016-11-22 16:23 | Progress Note ---
Internal Med Progress Note Date of Service: Nov 22, 2016. Provider Documentation: SUBJECTIVE: The Patient was seen and examined Remains pleasantly confused Has been in medical floor Denies any complaints Ambulating and communicating normally with others Has been accepted to a inpatient facility near [facility] [facility] OBJECTIVE: Vital Signs-as noted below Exam: General-Pleasantly Confused Ambulating without difficulty but under supervision Eyes-normal ENT-Normal Neck-supple Lungs-clear Heart-Regular,no murmur appreciated Abdomen-Benign,no masses,bowel sound present Extremities-No edema Neuro-AA Ambulating with supervision Lab data as noted below. 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 Awaiting Inpatient rehab Social service is on Board Has been on Gabapentin Will wean off gradually AF with RVR Was on IV Amiodarone and then to Oral Full anticoagulation with Lovenox Rate is controlled Likely not a candidate for parts counterman anticoagulation Started on oral Amiodarone and Cardizem-rate controlled Remains in SR and rate is controlled Denies any symptoms ADMITTED WITH DELIRIUM TREMENS -secondary to Alcohol abuse -REQUIRED INTUBATION -Was on versed and propofol drip for a while -Continue thiamine with higher doses Folic acid and IVF - EEG done showed no seizure activity -Required heavy dose of Benzodiazepines -WEANED OFF -Getting Gabapentin and Clonidine -remains pleasantly confused - PT/OT started at bedside and progress as tolerated -has been on Thiamin,Folate,Gabapentin and Clonidine -will continue those Possible Wernicke's Korsakoff's Syndrome-no MRI evidence Has been on High dose of Thiamin and then resumed usual dose Appreciate Psychiatry input Taper down Benzodiazepine -will be a slow process Seroquel started Remains pleasantly confused but improving very slowly Not suicidal or harmful to others Appreciate Neurology input Will get MRI of the head to any changes due to Wernicke-No signs of Wernicke or any other acute change PNEUMONIA Likely secondary to Aspiration Treatment done and resolved Elevated Liver Enzymes -likely secondary to alcohol abuse -Hepatitis B and C negative -continue monitor liver enzymes-improving -improved and normalized Nutrition Was on NGT feeding Ongoing Swallowing evaluation Started on oral diet and tolerating regular food Gained weight THROMBOCYTOPENIA -secondary to Alcohol abuse and Cirrhosis -platelet improved from 35 to 50-->73 today -no pharmacologic anticoagulation initially -normalized Electrolytes Imbalance Supplement and Monitor TOBACCO ABUSE -Nicotine patch ordered DVT PROPHYLAXIS: Received full anticoagulation due to AF with RVR Not a candidate for shelter anticoagulation On Lovenox preventive dose now CODE STATUS: FULL CODE 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 Procedures: Bronchoscopy Family 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 by Chips Screen Tender Does not have any acute Psychosis and behaving almost normally Does not want to go in patient rehab Will discuss with the sister May go to Rehab Facility today Vital Signs: Date Time Temp Pulse Resp B/P (MAP) Pulse Ox O2 Delivery O2 Flow Rate FiO2 11/22/16 15:22 36.6 80 18 146/92 (110) 98 Room Air 11/22/16 08:00 97 Room Air 11/22/16 07:40 36.5 87 16 113/83 (93) 97 Room Air 11/22/16 00:00 Room Air 11/21/16 23:39 36.7 77 20 141/52 (81) 99 Room Air Lab Results: Results Past 24 Hours Test 11/22/16 06:16 Range/Units White Blood Count 4.67 4.8-10.8 K/uL Red Blood Count 3.95 4.7-6.1 M/uL Hemoglobin 12.5 14.0-18.0 g/dL Hematocrit 37.3 42-52 % Mean Corpuscular Volume 94.4 80-100 fL Mean Corpuscular Hemoglobin 31.6 25-34 pg Mean Corpuscular Hemoglobin Concent 33.5 32-36 g/dl Platelet Count 123 130-400 K/uL Mean Platelet Volume 9.1 7.4-10.4 fL Neutrophils (%) (Auto) 55.5 % Lymphocytes (%) (Auto) 32.1 % Monocytes (%) (Auto) 10.3 % Eosinophils (%) (Auto) 1.7 % Basophils (%) (Auto) 0.2 % Neutrophils # (Auto) 2.59 1.4-6.5 K/uL Lymphocytes # (Auto) 1.50 1.2-3.4 K/uL Monocytes # (Auto) 0.48 0.11-0.59 K/uL Eosinophils # (Auto) 0.08 0-0.5 K/uL Basophils # (Auto) 0.01 0-0.2 K/uL RDW Standard Deviation 46.4 36.4-46.3 fL RDW Coefficient of Variation 13.5 11.5-14.5 % Immature Granulocyte % (Auto) 0.2 % Immature Granulocyte # (Auto) 0.01 0.00-0.02 K/uL Sodium Level 144 136-145 mmol/L Potassium Level 4.0 3.5-5.1 mmol/L Chloride Level 109 98-107 mmol/L Carbon Dioxide Level 29 21-32 mmol/L Anion Gap 6.0 3-11 mmol/L Blood Urea Nitrogen 10 7-18 mg/dl Creatinine 0.68 0.60-1.40 mg/dl Est Creatinine Clear Calc Drug Dose 150.7 ml/min Estimated GFR () 124.6 Estimated GFR (Non- 107.5 BUN/Creatinine Ratio 14.8 10-20 Random Glucose 86 70-99 mg/dl Calcium Level 8.4 8.5-10.1 mg/dl Magnesium Level 2.3 1.8-2.4 mg/dl
[2016-11-22] MEDS ORDERED: CRD200 PO (17:00)
[2016-11-22] MEDS ORDERED: VTMD1000 PO (17:00)
[2016-11-22] MEDS ORDERED: SNK PO (17:00)
[2016-11-22] MEDS ORDERED: DPKSP125 PO (17:00)
[2016-11-22] MEDS ORDERED: CLC100 PO (17:00)
[2016-11-22] MEDS ORDERED: NICO21DI4 TD (17:00)
[2016-11-22] MEDS ORDERED: FLV1 PO (17:00)
[2016-11-22] MEDS ORDERED: DLCSR120 PO (17:00)
[2016-11-22] MEDS ORDERED: THM100 PO (17:00)
[2016-11-22] MEDS ORDERED: CNT PO (17:00)
[2016-11-22] MEDS ORDERED: CTP1X PO (17:00)
--- NOTE | 2016-11-22 17:05 | Discharge Instructions ---
Discharge Instructions Date of Service Nov 22, 2016. Admission Reason for Admission: Alcohol Withdrawal,Dehydration,Multiple Contusions Discharge Discharge Diagnosis / Problem: Alcoholic Psycosis,Delirium Tremens-required intubation ,AF in SR now Discharge Goals Goal(s): Prevent Disease Progression Activity Recommendations Activity Level: Up Ad Crissy, Assistance Required Therapies: Physical Therapy, Occupational Therapy . Additional Information Patient informed of condition: Yes Advance Directives: No DNR: No Level of Care: Other (Inpatient Rehab for Alcohol abuse with psychosis) Communicable Disease: No Prognosis: Stable Oxygen at (LPM): 2 liters/Minvia NC as needed Corley Catheter: No Instructions / Follow-Up Instructions / Follow-Up Please make an appointment with your PCP following discharge from the facility Current Hospital Diet Patient's current hospital diet: Regular Diet Discharge Diet Recommended Diet: Regular Diet Pending Studies Studies pending at discharge: no Medical Emergencies . Who to Call and When: Medical Emergencies: If at any time you feel your situation is an emergency, please call 911 immediately. . Non-Emergent Contact Non-Emergency issues call your: Primary Care Provider . Past History Medical & Surgical History: (1) Wernicke-Korsakoff syndrome (2) Thrombocytopenia (3) History of traumatic brain injury (4) Alcohol dependence (5) Alcohol abuse (6) Alcohol withdrawal (7) Multiple contusions (8) Tremor (9) Tobacco abuse . "Provider Documentation" section prepared by Syd Chirinos. . Core Measure Problem Core Measures: None
[2016-11-22] MEDS ORDERED: NRN300 PO (17:14)
[2016-11-22 17:57] VITALS: BP 146/92; PULSE 80; TEMP 36.6; O2SAT 98
--- NOTE | 2016-11-23 08:03 | Discharge Summary ---
Discharge Summary Date of Service Nov 23, 2016. Discharge Summary Admission Date: October 20, 2016 at 16:02 Discharge Date: Nov 22, 2016 Discharge Disposition: Rehab Principal Diagnosis: Alcoholic Psychosis,Delirium Tremens-required intubation ,AF in SR now Secondary Diagnoses/Problems: Please see H&P and Hospital; Progress note Procedures: Bronchoscopy Consultations: SHIPPING ASSOCIATE,Psychiatrist Medication Reconciliation New Medications: Folic Acid (Folic Acid) 1 Mg Tab 1 MG PO DAILY, #30 Gabapentin (Gabapentin) 300 Mg Cap 300 MG PO UD for 28 Days, #70 2 tabs bid for 7 days,1 tab tid for 7 days,1 tab bid for 7 days and then 1 tab daily for 7 days. Amiodarone HCl (Amiodarone HCl) 200 Mg Tab 200 MG PO BID for 30 Days, #60 TAB Cholecalciferol (Vitamin D3) 1,000 Inter.unit Tab 2000 INTER.UNIT PO DAILY for 30 Days, #60 TAB Clonidine HCl (Clonidine HCl) 0.1 Mg Tab 0.1 MG PO HS PRN for agitation for 10 Days, #10 TAB Diltiazem HCl (Diltiazem HCl ER) 120 Mg Caper 120 MG PO QAM for 30 Days, #30 Divalproex Sodium (Divalproex Sodium) 125 Mg Cap 625 MG PO TID for 10 Days, #150 CAP Docusate Sodium (Docusate Sodium) 100 Mg Cap 100 MG PO BID for 30 Days, #60 CAP Multivitamins/Minerals (Certavite/Antioxidants) 1 Tab Tab 1 TAB PO QAM for 30 Days, #30 TAB Nicotine (Nicoderm Cq) 21 Mg/24 Hr Dis 1 PATCH TD QAM for 30 Days, #30 Senna (Senna Lax) 8.6 Mg Tab 17.2 MG PO QAM for 30 Days, #60 TAB Thiamine HCl (Vitamin B-1) 100 Mg Tab 100 MG PO QAM for 30 Days, #30 TAB Admission Information HPI (per Admitting provider): Patient seen and examined. 56 year old male with PMHx of alcohol abuse presents to the ED complaining of tremors x 4 days. History is somewhat unclear as at my time of interview patient is hallucinating which nursing staff report began about a half hour ago. Apparently friends had noticed that patient had been falling down very often. Over the last few weeks he had been cutting back on alcohol and hasn't had any for four days until he had 1.5 beers this morning. Patient states he has about 6 beers most nights. Patient is seen in the presence of 2 security guards as patient is tremulous, hallucinating and trying to climb out of bed. He is oriented to self only. He states he has been having seizures and that he has had them in the past. There has not been any seizure activity while in the ED. In the ED VS are stable, LFTs are elevated platelet count is 39, lactate is 2.8, CT head is negative, CXR shows rib fractures with various stages of healing. He received 6mg of IV Ativan total, 5mg Valium, and Librium and is still very agitated. He will therefore be admitted to the ICU for further workup and treatment. Past Medical/Surgical History Medical Problems: (1) Alcohol abuse Status: Chronic (2) Tobacco abuse Status: Chronic Surgical Problems: (1) No pertinent past surgical history Status: Chronic Family History FH: cancer MOTHER (pancreatic CA ) FH: heart disease FATHER ([place] age 68 ) Social History Smoking Status: Current Some Day Smoker Alcohol Use: heavy Marital Status: Housing status: other Occupational Status: unemployed Immunizations History of Influenza Vaccine: No History of Tetanus Vaccine?: Unknown Tetanus Immunization Date: Jul 21, 2006 History of Pneumococcal: No History of Hepatitis B Vaccine: No Hepatitis Immunization Date: Jul 21, 1983 Multi-Drug Resistant Organisms History of MDRO: No Allergies Coded Allergies: Ibuprofen (Unverified Allergy, Unknown, FACIAL SWELLING, 10/20/16) Home Medications No Active Prescriptions or Reported Meds Review of Systems Unable to assess at this time d/t mental status Physical Ex - H&P Physical Exam Vital Signs Date Time Temp Pulse Resp B/P Pulse Ox O2 Delivery O2 Flow Rate FiO2 10/20/16 16:22 125 24 125/94 96 10/20/16 14:55 96 Room Air 10/20/16 14:54 96 20 126/93 96 Room Air 10/20/16 14:17 102 18 109/79 97 Room Air 10/20/16 12:47 100 10/20/16 12:31 37.0 108 22 109/83 93 Room Air General Appearance: + pertinent finding (Disheveled tremulous 56 year old male who appears very aggitated with security guards at bedside ) Head: normocephalic, atraumatic Eyes: PERRL, sclerae normal ENT: hearing grossly normal, pharynx normal Neck: supple, no JVD Respiratory/Chest: chest non-tender, lungs clear, normal breath sounds, no respiratory distress, no accessory muscle use Cardiovascular: regular rate, rhythm, no edema, no gallop, no JVD, no murmur, normal peripheral pulses Abdomen/GI: normal bowel sounds, non tender, soft Back: normal inspection, no muscle spasm Extremities/Musculoskelatal: no calf tenderness, normal capillary refill, no pedal edema Neurologic/Psych: + pertinent finding (Alert, oriented to self, +hallucinations , +tremors, +aggitation, moves all extremities appropriately ) Skin: + pertinent finding (diffuse ecchymosis ) Lymphatic: no adenopathy Diagnostics - H&P Diagnostics Laboratory Results Results Past 24 Hours Test 10/20/16 13:52 10/20/16 14:13 10/20/16 15:25 Range/Units White Blood Count 4.10 4.8-10.8 K/uL Red Blood Count 4.30 4.7-6.1 M/uL Hemoglobin 13.7 14.0-18.0 g/dL Hematocrit 38.4 42-52 % Mean Corpuscular Volume 89.3 80-100 fL Mean Corpuscular Hemoglobin 31.9 25-34 pg Mean Corpuscular Hemoglobin Concent 35.7 32-36 g/dl Platelet Count 39 130-400 K/uL Mean Platelet Volume 11.7 7.4-10.4 fL Neutrophils (%) (Auto) 79.8 % Lymphocytes (%) (Auto) 10.7 % Monocytes (%) (Auto) 9.3 % Eosinophils (%) (Auto) 0.0 % Basophils (%) (Auto) 0.0 % Neutrophils # (Auto) 3.27 1.4-6.5 K/uL Lymphocytes # (Auto) 0.44 1.2-3.4 K/uL Monocytes # (Auto) 0.38 0.11-0.59 K/uL Eosinophils # (Auto) 0.00 0-0.5 K/uL Basophils # (Auto) 0.00 0-0.2 K/uL RDW Standard Deviation 40.1 36.4-46.3 fL RDW Coefficient of Variation 12.4 11.5-14.5 % Immature Granulocyte % (Auto) 0.2 % Immature Granulocyte # (Auto) 0.01 0.00-0.02 K/uL Platelet Estimate DECREASED Prothrombin Time 10.6 9.0-12.0 SECONDS Prothromb Time International Ratio 1.0 0.9-1.1 Activated Partial Thromboplast Time 29.8 21.0-31.0 SECONDS Partial Thromboplastin Ratio 1.1 Sodium Level 131 136-145 mmol/L Potassium Level 3.3 3.5-5.1 mmol/L Chloride Level 94 98-107 mmol/L Carbon Dioxide Level 27 21-32 mmol/L Anion Gap 10.0 3-11 mmol/L Blood Urea Nitrogen 8 7-18 mg/dl Creatinine 0.68 0.60-1.40 mg/dl Est Creatinine Clear Calc Drug Dose 150.6 ml/min Estimated GFR () 124.6 Estimated GFR (Non- 107.5 BUN/Creatinine Ratio 11.2 10-20 Random Glucose 92 70-99 mg/dl Lactic Acid Level 2.8 0.4-2.0 mmol/L Calcium Level 9.4 8.5-10.1 mg/dl Magnesium Level 2.2 1.8-2.4 mg/dl Total Bilirubin 1.5 0.2-1 mg/dl Direct Bilirubin 0.5 0-0.2 mg/dl Aspartate Amino Transf (AST/SGOT) 116 15-37 U/L Alanine Aminotransferase (ALT/SGPT) 115 12-78 U/L Alkaline Phosphatase 185 45-117 U/L Total Creatine Kinase 548 39-308 U/L Troponin I < 0.015 0-0.045 ng/ml Total Protein 8.2 6.4-8.2 gm/dl Albumin 3.9 3.4-5.0 gm/dl Lipase 76 73-393 U/L Thyroid Stimulating Hormone (TSH) 0.850 0.300-4.500 uIu/ml Ethyl Alcohol mg/dL 53.0 0-3 mg/dl Microbiology Results 10/20/16 Blood Culture, Received Pending 10/20/16 Blood Culture, Received Pending Diagnostic Radiology CXR Per radiologist read: IMPRESSION: 1. Bilateral rib fractures of varying age. 2. Round atelectasis/infiltrate left base versus calcification of a healing posterior fracture left ninth rib CT HEAD Per radiologist read: IMPRESSION: No acute intracranial findings EKG Sinus Tachycardia 109 BPM, QTc 463 Impression - H&P Impression Assessment and Plan 56 year old male presents to the ED with alcohol detox request. ALCOHOL WITHDRAWAL -Admit to ICU -Receive total of 6mg IV Ativan, 5mg Valium and 50mg Librium in ED -Alcohol level 53, tox screen pending -Daily banana bag, will need po vitamins when this is stopped -Start alcohol withdrawal protocol with Librium and gabapentin -ICU admission for Precedex drip - defer management to instructor pilot -instructor pilot consult placed - input appreciated -Seizure precautions -psychiatry, director social welfare consults placed for discharge planning RE: possible rehab -CBC, CMP, Mg in AM TRANSAMINITIS -Total Bili 1.5, AST 116, ALT 115, Alk Phos 108 -likely secondary to alcohol abuse -repeat in AM THROMBOCYTOPENIA -39, likely secondary to alcohol abuse, liver disease - diffuse ecchymosis noted, no signs of active bleeding, Hgb stable -avoid anticoagulation, follow CBC ELEVATED LACTATE -lactate 2.8, no signs of infection -IVF hydration -repeat lactate at 1530 TOBACCO ABUSE -Cessation counseling given -Nicotine patch ordered DVT PROPHYLAXIS: SCDs RE: thrombocytopenia CODE STATUS: FULL CODE DISPO:In my clinical judgment this beneficiary meets acute admission criteria, established by [facility], that includes being hospitalized through two midnights. Patient seen in collaboration with Dr. Chirinos Attending Addendum: The patient was seen and examined The patient has been going through Delirium Tremens during my exam Denies any Pain Delirium is not controlled with IV Ativan and was admitted to ICU O/E Generalized bruising on multiple areas of different ages Very Agitated Received ~8mg Ativan in last hour and also Valium and Chlordiazepoxide Tachycardia with high BP Chest-clear to auscultate bilaterally Heart-regular Abdomen-benign Extremities-no edema Labs and Imaging studies were reviewed Delirium Tremens-requiring ICU care Agree with the assessment and plain DR Toby Chirinos VTE Prophylaxis VTE Risk Assessment Done? Y/N: Yes Risk Level: Moderate Physical Exam (per Admitting): General Appearance: + pertinent finding (Disheveled tremulous 56 year old male who appears very aggitated with security guards at bedside ) Head: normocephalic, atraumatic Eyes: PERRL, sclerae normal ENT: hearing grossly normal, pharynx normal Neck: supple, no JVD Respiratory/Chest: chest non-tender, lungs clear, normal breath sounds, no respiratory distress, no accessory muscle use Cardiovascular: regular rate, rhythm, no edema, no gallop, no JVD, no murmur , normal peripheral pulses Abdomen/GI: normal bowel sounds, non tender, soft Back: normal inspection, no muscle spasm Extremities/Musculoskelatal: no calf tenderness, normal capillary refill, no pedal edema Neurologic/Psych: + pertinent finding (Alert, oriented to self, + hallucinations, +tremors, +aggitation, moves all extremities appropriately ) Skin: + pertinent finding (diffuse ecchymosis ) Lymphatic: no adenopathy Hospital Course Ongoing Confusion -gradually improving.Not likely to be cleared altogether Multifactorial -Psychosis from Alcohol ,use of 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 Awaiting Inpatient rehab Social service is on Board Has been on Gabapentin Will wean off gradually AF with RVR Was on IV Amiodarone and then to Oral Full anticoagulation with Lovenox Rate is controlled Likely not a candidate for terminal system operator anticoagulation Started on oral Amiodarone and Cardizem-rate controlled Remains in SR and rate is controlled Denies any symptoms ADMITTED WITH DELIRIUM TREMENS -secondary to Alcohol abuse -REQUIRED INTUBATION -Was on versed and propofol drip for a while -Continue thiamine with higher doses Folic acid and IVF - EEG done showed no seizure activity -Required heavy dose of Benzodiazepines -WEANED OFF -Getting Gabapentin and Clonidine -remains pleasantly confused - PT/OT started at bedside and progress as tolerated -has been on Thiamin,Folate,Gabapentin and Clonidine -will continue those Possible Wernicke's Korsakoff's Syndrome-no MRI evidence Has been on High dose of Thiamin and then resumed usual dose Appreciate Psychiatry input Taper down Benzodiazepine -will be a slow process Seroquel started Remains pleasantly confused but improving very slowly Not suicidal or harmful to others Appreciate Neurology input Will get MRI of the head to any changes due to Wernicke-No signs of Wernicke or any other acute change PNEUMONIA Likely secondary to Aspiration Treatment done and resolved Elevated Liver Enzymes -likely secondary to alcohol abuse -Hepatitis B and C negative -continue monitor liver enzymes-improving -improved and normalized Nutrition Was on NGT feeding Ongoing Swallowing evaluation Started on oral diet and tolerating regular food Gained weight THROMBOCYTOPENIA -secondary to Alcohol abuse and Cirrhosis -platelet improved from 35 to 50-->73 today -no pharmacologic anticoagulation initially -normalized Electrolytes Imbalance Supplement and Monitor TOBACCO ABUSE -Nicotine patch ordered DVT PROPHYLAXIS: Received full anticoagulation due to AF with RVR Not a candidate for terminal system operator anticoagulation On Lovenox preventive dose now CODE STATUS: FULL CODE Consultants: SHIPPING ASSOCIATE Procedures: Bronchoscopy Family 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 by [facility] Director Does not have any acute Psychosis and behaving almost normally Does not want to go in patient rehab Will discuss with the sister May go to Rehab Facility today Total time spent on discharge = 35 minutes This includes examination of the patient, discharge planning, medication reconciliation, and communication with other providers. Discharge Instructions Date of Service Nov 22, 2016. Admission Reason for Admission: Alcohol Withdrawal,Dehydration,Multiple Contusions Discharge Discharge Diagnosis / Problem: Alcoholic Psycosis,Delirium Tremens-required intubation ,AF in SR now Discharge Goals Goal(s): Prevent Disease Progression Activity Recommendations Activity Level: Up Ad Crissy, Assistance Required Therapies: Physical Therapy, Occupational Therapy . Additional Information Patient informed of condition: Yes Advance Directives: No DNR: No Level of Care: Other (Inpatient Rehab for Alcohol abuse with psychosis) Communicable Disease: No Prognosis: Stable Oxygen at (LPM): 2 liters/Minvia NC as needed Corley Catheter: No Instructions / Follow-Up Instructions / Follow-Up Please make an appointment with your PCP following discharge from the facility Current Hospital Diet Patient's current hospital diet: Regular Diet Discharge Diet Recommended Diet: Regular Diet Pending Studies Studies pending at discharge: no Medical Emergencies . Who to Call and When: Medical Emergencies: If at any time you feel your situation is an emergency, please call 911 immediately. . Non-Emergent Contact Non-Emergency issues call your: Primary Care Provider . Past History Medical & Surgical History: (1) Wernicke-Korsakoff syndrome (2) Thrombocytopenia (3) History of traumatic brain injury (4) Alcohol dependence (5) Alcohol abuse (6) Alcohol withdrawal (7) Multiple contusions (8) Tremor (9) Tobacco abuse . "Provider Documentation" section prepared by Syd Chirinos. . Core Measure Problem Core Measures: None <Electronically signed by Syd Chirinos M.D.> Signed: 11/22/16 [id number] Additional Copies To Misha Beltre M.D. (MEDICAL)
== END 2016-11-22 18:55 | DRG 896 ==
LOC: ENRESERVDT → CANRESERV → ENRESERVTM → EDBD 12:24 → C.EDB 12:25 → EDBEDREQSVC 16:01 → EDBEDREQ 16:02 → C.MSICU 16:02 → EDBEDREQ 16:03 → CANBEDREQ 11-08 14:17 → ENRESERV 11-13 18:52 → C.2E 11-13 19:32 → ENRESERV 11-15 17:41 → C.MS2W 11-15 18:19
PROVIDERS: ADMIT Internal Medicine; ATTEND Internal Medicine
PROC: 5A09557 Assistance with Respiratory Ventilation, Greater than 96 Consecutive Hours, Continuous Positive Airway Pressure (ICD-10-PCS; principal; 2016-10-20)
PROC: 0B948ZX Drainage of Right Upper Lobe Bronchus, Via Natural or Artificial Opening Endoscopic, Diagnostic (ICD-10-PCS; 2016-10-22)
PROC: 0BB48ZX Excision of Right Upper Lobe Bronchus, Via Natural or Artificial Opening Endoscopic, Diagnostic (ICD-10-PCS; 2016-10-22)
PROC: 02HV33Z Insertion of Infusion Device into Superior Vena Cava, Percutaneous Approach (ICD-10-PCS; 2016-10-24)
DX: F10.231 Alcohol dependence with withdrawal delirium (principal); J69.0 Pneumonitis due to inhalation of food and vomit; J96.00 Acute respiratory failure, unspecified whether with hypoxia or hypercapnia; E86.0 Dehydration; R25.1 Tremor, unspecified; F17.200 Nicotine dependence, unspecified, uncomplicated; R74.0 Nonspecific elevation of levels of transaminase and lactic acid dehydrogenase [LDH]; D69.6 Thrombocytopenia, unspecified; E87.6 Hypokalemia; I48.91 Unspecified atrial fibrillation; T14.8 Other injury of unspecified body region; X58.XXXA Exposure to other specified factors, initial encounter; E55.9 Vitamin D deficiency, unspecified; Z87.820 Personal history of traumatic brain injury

== ENCOUNTER 2017-04-23 12:17 | Inpatient (IN) | payer OTHER ==
[~2017-04-23] VITALS: Ht 193 cm; Wt 70.9 kg
[~2017-04-23 12:17] MED LIST: CLC100 PO; CNT PO; CRD200 PO; CTP1X PO; DIVA1CAP2 PO; DLCSR120 PO; FLV1 PO; NICO21DI4 TD; NRN300 PO; SNK PO; THM100 PO; VTMD1000 PO
[2017-04-23] MEDS ORDERED: LORAZEPAM 2 MG/ML 1 ML VIAL IV STA ×2 (12:43→13:43)
[2017-04-23] MEDS ORDERED: THIAMINE HCL 100 MG/ML 2 ML VIAL IM STA (12:43)
[2017-04-23] MEDS ORDERED: SODIUM CHLORIDE 0.9% 1000ML 1,000 ML IV STA ×2 (12:43→13:43)
[2017-04-23] MEDS ORDERED: XYLOCAINE 1%/SOD BICARB 20 ML VIAL INFIL ONE (12:45)
[2017-04-23 13:21] LABS: ALT/SGPT 60 U/L (12-78); BLOOD UREA NITROGEN 6 mg/dl (7-18); CARBON DIOXIDE 27 mmol/L (21-32); CHLORIDE 99 mmol/L (98-107); CREATININE 0.72 mg/dl (0.60-1.40); GLUCOSE 112 mg/dl (70-99); MAGNESIUM 2.4 mg/dl (1.8-2.4); POTASSIUM 3.6 mmol/L (3.5-5.1); SODIUM 137 mmol/L (136-145)
[2017-04-23 13:26] LABS: ALKALINE PHOSPHATASE 161 U/L (45-117); AST/SGOT 64 U/L (15-37)
--- NOTE | 2017-04-23 13:34 | DIAGNOSTIC IMAGING REPORT ---
CHEST ONE VIEW PORTABLE CLINICAL HISTORY: seizure COMPARISON STUDY: 11/19/2016 FINDINGS: The cardiac and mediastinal contours are normal. There is no evidence of focal pulmonary consolidation. There is no evidence of failure. No pleural effusions are visualized.[ There are old left-sided rib fractures. IMPRESSION: No active disease in the chest. Electronically signed by: Jose Villanueva M.D. 04/23/2017 1:33 PM Dictated Date/Time: 04/23/2017 1:32 PM
--- NOTE | 2017-04-23 13:40 | DIAGNOSTIC IMAGING REPORT ---
CT HEAD WITHOUT CONTRAST (CT) CLINICAL HISTORY: seizure COMPARISON STUDY: 10/26/2016 TECHNIQUE: Axial CT of the brain is performed from the vertex to the skull base. IV contrast was not administered for this examination. A dose lowering technique was utilized adhering to the principles of ALARA. CT DOSE: 614.27 mGy.cm FINDINGS: No intra or extra-axial mass lesions are visualized. There is no CT evidence of acute cortical infarction. There is no evidence of midline shift. There is no acute hemorrhage. No calvarial fractures are visualized. There are patchy white matter hypodensities likely on a small vessel basis. There are atrophic changes with commensurate ventricular prominence. There is a right axilla sinus polyp/retention cyst similar to the prior study IMPRESSION: No acute intracranial findings Electronically signed by: Jose Villanueva M.D. 04/23/2017 1:38 PM Dictated Date/Time: 04/23/2017 1:37 PM
[2017-04-23 13:42] LABS: HEMATOCRIT 41.6 % (42-52); MEAN CELL VOLUME 93.1 fL (80-100); MEAN CORPUSCULAR HEMOGLOBIN 32.9 pg (25-34); MEAN CORPUSCULAR HGB CONC 35.3 g/dl (32-36); RED BLOOD COUNT 4.47 M/uL (4.7-6.1); WHITE BLOOD COUNT 4.63 K/uL (4.8-10.8)
[2017-04-23 13:55] LABS: MEAN PLATELET VOLUME 9.4 fL (7.4-10.4); PLATELET COUNT 69 K/uL (130-400)
[2017-04-23 13:57] LABS: BASO % 0.2 %; BASO ABS # 0.01 K/uL (0-0.2); COMPLETE YES; IG% 0.4 %; LYMPH % 7.3 %; LYMPH ABS # 0.34 K/uL (1.2-3.4); MONO % 8.9 %; NEUT % 83.2 %; PLT ESTIMATE DECREASED
--- NOTE | 2017-04-23 14:03 | EMERGENCY ROOM VISIT NOTE ---
History Report prepared by Dorothy: Napoleon Alberto Under the Supervision of: Dr. Matias Burt M.D. First contact with patient: 12:39 Chief Complaint: SEIZURE Stated Complaint: Seizure like activity, r/o DT's, tongue laceration Nursing Triage Summary: Patient arrived via ems from his apartment building. Friend was at patients house and witnessed a seizure. Patient complaining of headache, upset stomach. Friend reported to ems that these symptoms have been going on for the past 3 days. Patient has history of alcoholism, pt reports last drink was 3 days ago and he reports having 2 beers. Patient has tremors at this time. Denies drug use. Emesis x2 for ems and x1 on arrival. Patient reports having 1 seizure that was many years ago. PT reported "I have been chewing a lot of tobacco lately." Patient A&Ox3, was unable to specify the year. Patients speech is very rapid. Patient stated "I peed myself during the seizure I had." Pants removed and placed in bag. 1/2 inch tongue laceration, bleedin controlled. History of Present Illness The patient is a 56 year old male who presents to the Emergency Room by EMS with complaints of an episode of seizure-like activity occurring just prior to arrival. The patient's episode was witnessed by his friend while he was in his apartment building. He has a history of seizures occurring after he quit drinking. He states that he has not been drinking alcohol regularly. The patient states that he has not had a drink for three days. He states that he had been drinking the week before that, but had not drank at all the week prior. He has a history of baseline shakiness, but states that he is currently worse than normal. The patient notes that he bit his tongue. He notes that he fell four days ago and injured his left arm. He currently complains of vomiting and headache. Source of History: patient Onset: Just prior to arrival Position: other (generalized) Quality: other (seizure-like activity) Timing: other (episode) Associated Symptoms: + headache, + vomiting Review of Systems See HPI for pertinent positives & negatives. A total of 10 systems reviewed and were otherwise negative. Past Medical & Surgical Medical Problems: (1) Alcohol abuse (2) Alcohol dependence (3) History of traumatic brain injury (4) Malnutrition related to chronic disease (5) Thrombocytopenia (6) Tobacco abuse Surgical Problems: (1) No pertinent past surgical history Family History FH: cancer MOTHER (pancreatic CA ) FH: heart disease FATHER ([place] age 68 ) Social History Smoking Status: Current Some Day Smoker Alcohol Use: heavy Drug Use: other Marital Status: , in relationship Housing Status: lives alone Occupation Status: unemployed Current/Historical Medications Scheduled Amiodarone HCl (Amiodarone HCl), 200 MG PO BID Cholecalciferol (Vitamin D3), 2,000 INTER.UNIT PO DAILY Diltiazem HCl (Diltiazem HCl ER), 120 MG PO QAM Divalproex Sodium (Divalproex Sodium), 625 MG PO TID Docusate Sodium (Docusate Sodium), 100 MG PO BID Folic Acid (Folic Acid), 1 MG PO DAILY Gabapentin (Gabapentin), 300 MG PO UD Multivitamins/Minerals (Certavite/Antioxidants), 1 TAB PO QAM Nicotine (Nicoderm Cq), 1 PATCH TD QAM Senna (Senna Lax), 17.2 MG PO QAM Thiamine HCl (Vitamin B-1), 100 MG PO QAM Scheduled PRN Clonidine HCl (Clonidine HCl), 0.1 MG PO HS PRN for agitation Allergies Coded Allergies: Ibuprofen (Unverified Allergy, Unknown, FACIAL SWELLING, 04/23/17) Physical Exam Vital Signs Date Time Temp Pulse Resp B/P (MAP) Pulse Ox O2 Delivery O2 Flow Rate FiO2 04/23/17 12:30 109 04/23/17 12:29 37.1 109 18 165/111 99 Room Air 04/23/17 12:29 99 Room Air Physical Exam GENERAL: Patient is unwell appearing and in no acute distress. Severe tremors. Dehydrated appearing. HEENT: No acute trauma, normocephalic atraumatic, mucous membranes dry, no nasal congestion, no scleral icterus. Face appears flushed. 2 cm tongue laceration on the top left tongue. NECK: No stridor, no adenopathy, no meningismus, trachea is midline. LUNGS: No dyspnea. Clear to auscultation and equal bilaterally. No wheeze, no rhonchi. HEART: Tachycardic rate with a regular rhythm. No murmurs, rubs, gallops appreciated. ABDOMEN: Soft, nontender, bowel sounds positive, no masses appreciated, no peritonitis. BACK: No midline tenderness, no CVA tenderness EXTREMITIES: Normal motion all extremities, no cyanosis, no edema. NEUROLOGIC: Alert and oriented, no acute motor or sensory deficits, no focal weakness, cranial nerves grossly intact. SKIN: No jaundice, no diaphoresis. Dry erythema of the chest which is chronic. Medical Decision & Procedures ER Provider Diagnostic Interpretation: Radiology results and stated below per my review and radiologist interpretation: CT HEAD WITHOUT CONTRAST (CT) FINDINGS: No intra or extra-axial mass lesions are visualized. There is no CT evidence of acute cortical infarction. There is no evidence of midline shift. There is no acute hemorrhage. No calvarial fractures are visualized. There are patchy white matter hypodensities likely on a small vessel basis. There are atrophic changes with commensurate ventricular prominence. There is a right axilla sinus polyp/retention cyst similar to the prior study IMPRESSION: No acute intracranial findings Electronically signed by: Jose Villanueva M.D. 04/23/2017 1:38 PM CHEST ONE VIEW PORTABLE FINDINGS: The cardiac and mediastinal contours are normal. There is no evidence of focal pulmonary consolidation. There is no evidence of failure. No pleural effusions are visualized.[ There are old left-sided rib fractures. IMPRESSION: No active disease in the chest. Electronically signed by: Jose Villanueva M.D. 04/23/2017 1:33 PM Laboratory Results 04/23/17 12:44 Red Blood Count 4.47, Mean Corpuscular Volume 93.1, Mean Corpuscular Hemoglobin 32.9, Mean Corpuscular Hemoglobin Concent 35.3, Mean Platelet Volume 9.4, Neutrophils (%) (Auto) 83.2, Lymphocytes (%) (Auto) 7.3, Monocytes (%) (Auto) 8.9, Eosinophils (%) (Auto) 0.0, Basophils (%) (Auto) 0.2, Neutrophils # (Auto) 3.85, Lymphocytes # (Auto) 0.34, Monocytes # (Auto) 0.41, Eosinophils # (Auto) 0.00, Basophils # (Auto) 0.01 04/23/17 12:44 Test 04/23/17 12:44 04/23/17 12:58 04/23/17 13:40 White Blood Count 4.63 K/uL (4.8-10.8) Red Blood Count 4.47 M/uL (4.7-6.1) Hemoglobin 14.7 g/dL (14.0-18.0) Hematocrit 41.6 % (42-52) Mean Corpuscular Volume 93.1 fL (80-100) Mean Corpuscular Hemoglobin 32.9 pg (25-34) Mean Corpuscular Hemoglobin Concent 35.3 g/dl (32-36) Platelet Count 69 K/uL (130-400) Mean Platelet Volume 9.4 fL (7.4-10.4) Neutrophils (%) (Auto) 83.2 % Lymphocytes (%) (Auto) 7.3 % Monocytes (%) (Auto) 8.9 % Eosinophils (%) (Auto) 0.0 % Basophils (%) (Auto) 0.2 % Neutrophils # (Auto) 3.85 K/uL (1.4-6.5) Lymphocytes # (Auto) 0.34 K/uL (1.2-3.4) Monocytes # (Auto) 0.41 K/uL (0.11-0.59) Eosinophils # (Auto) 0.00 K/uL (0-0.5) Basophils # (Auto) 0.01 K/uL (0-0.2) RDW Standard Deviation 48.8 fL (36.4-46.3) RDW Coefficient of Variation 14.4 % (11.5-14.5) Immature Granulocyte % (Auto) 0.4 % Immature Granulocyte # (Auto) 0.02 K/uL (0.00-0.02) Platelet Estimate DECREASED Anion Gap 11.0 mmol/L (3-11) Est Creatinine Clear Calc Drug Dose 142.3 ml/min Estimated GFR () 121.7 Estimated GFR (Non- 105.0 BUN/Creatinine Ratio 8.0 (10-20) Calcium Level 9.0 mg/dl (8.5-10.1) Magnesium Level 2.4 mg/dl (1.8-2.4) Total Bilirubin 0.8 mg/dl (0.2-1) Direct Bilirubin 0.3 mg/dl (0-0.2) Aspartate Amino Transf (AST/SGOT) 64 U/L (15-37) Alanine Aminotransferase (ALT/SGPT) 60 U/L (12-78) Alkaline Phosphatase 161 U/L (45-117) Troponin I < 0.015 ng/ml (0-0.045) Total Protein 7.8 gm/dl (6.4-8.2) Albumin 4.1 gm/dl (3.4-5.0) Ethyl Alcohol mg/dL < 3.0 mg/dl (0-3) Bedside Lactic Acid Venous 3.17 mmol/L (0.90-1.70) Laboratory results as reviewed by me. Medications Administered Medications (Trade) Dose Ordered Sig/Rica Route Start Time Stop Time Status Last Admin Dose Admin Lorazepam (Ativan Inj) 2 mg NOW STAT IV 04/23/17 12:43 04/23/17 12:46 DC 04/23/17 12:59 2 MG Sodium Chloride 1,000 ml @ 999 mls/hr Q1H1M STAT IV 04/23/17 12:43 04/23/17 13:43 DC 04/23/17 12:59 999 MLS/HR Thiamine HCl (Vitamin B-1 Inj) 100 mg NOW STAT IM 04/23/17 12:43 04/23/17 12:46 DC 04/23/17 13:02 100 MG Sodium Chloride 1,000 ml @ 999 mls/hr Q1H1M STAT IV 04/23/17 13:43 04/23/17 14:43 04/23/17 13:46 999 MLS/HR Lorazepam (Ativan Inj) 2 mg NOW STAT IV 04/23/17 13:43 04/23/17 13:45 DC 04/23/17 13:49 2 MG ECG Indication: other (seizure-like activity) Rate (beats per minute): 87 Rhythm: normal sinus Findings: no acute ischemic change, no ectopy ED Course 1240: The patient was evaluated in room A12B. A complete history and physical exam was performed. 1243: Ordered Vitamin B-1 Inj 100 mg IM, Sodium Chloride 1000 ml @ 999 mls/hr, Ativan Inj 2 mg IV. 1245: Ordered Buffered Lidocaine 1% Inj 20 mL INFIL. 1340: Upon reevaluation, the patient is resting comfortably. He is still shaking , and states that he feels dehydrated. Discussed results and treatment plan with the patient. He verbalized understanding and agreement with the treatment plan. The patient will be evaluated for further management. 1343: Ordered Ativan Inj 2 mg IV, Sodium Chloride 1000 ml @ 999 mls/hr IV. Medical Decision Differential: Sepsis, Infectious (UTI/Pneumonia/Meningitis/etc), Metabolic/ Electrolyte Abnormality, Cardiac, Hepatic, Endocrine, Toxicologic, Neurologic, amongst other pathologies entertained. 56 yr old alcoholic arrives 3 days after last ETOH intake. He initially notes just drinking heavily for 1 week, though this is suspect. He is severely tremulous, hypertensive, tachycardic and has been seizing this morning. Given IV ativan x 2. IV fluids and IM Thiamine. Somewhat improved with this though still quite tremulous. Tongue lac closed by Nitesh Pleitez PA-C. CT head negative. CXR looks ok. His platelets are down again with his history of thrombocytopenia. He is not having any bleeding thus will hold off on transfusion. There is question whether he takes any of his medications though patient changes story multiple times. He is not at all fit for discharge and is having DTs thus requires hospitalist evaluation. Medication Reconcilliation Current Medication List: was personally reviewed by me Blood Pressure Screening Patient's blood pressure: Elevated blood pressure Blood pressure disposition: Elevated BP felt to be situational Consults Time Called: 1340 Consulting Physician: Melissa Brewer Returned Call: [phone] Discussed the patient's case. The patient will be evaluated for further treatment and disposition. Impression Primary Impression: DTs (delirium tremens) Additional Impressions: Alcohol withdrawal Seizure Tongue laceration Thrombocytopenia Critical Care I have personally spent greater than 35 minutes of critical care time in the direct management of this patient. This was a life/limb threatening event. This includes time spent evaluating patient, direct bedside care, chart review, placing orders, interpretation of diagnostic studies, discussion with consultants, patient, and family members, as well as other required patient management activities. This 35 minutes is in excess of all separately billable procedures. Scribe Attestation The scribe's documentation has been prepared under my direction and personally reviewed by me in its entirety. I confirm that the note above accurately reflects all work, treatment, procedures, and medical decision making performed by me. Departure Information Dispostion Being Evaluated By Hospitalist Referrals Misha Beltre M.D. (MEDICAL) (PCP) Patient Instructions My [facility] Problem Qualifiers
[2017-04-23] MEDS ORDERED: NICOTINE 21 MG/24 HR TDSY TD STA (14:11)
--- NOTE | 2017-04-23 14:15 | EMERGENCY ROOM VISIT NOTE ---
ED Visit Note This is a 56 year old male who I was asked by Dr. Burt, ED attending physician, to perform a tongue laceration repair. Please see his dictation for further workup and final disposition. PROCEDURE NOTE: Examination shows a 3 cm deep laceration of the left distal tongue region. The patient provided verbal consent for laceration repair under local anesthesia. Using buffered 1% lidocaine without epinephrine, good local anesthesia was administered. The wound was then approximated using four 4-0 Vicryl simple interrupted and inverted sutures with good wound edge approximation.
[2017-04-23] MEDS ORDERED: ASCA500 PO (14:22)
[2017-04-23] MEDS ORDERED: LORAZEPAM 1 MG TAB PO PRN (14:45)
[2017-04-23] MEDS ORDERED: GABAPENTIN 600 MG TAB PO SCH (14:45)
[2017-04-23] MEDS ORDERED: DIVA500T59 PO (15:05)
[2017-04-23] MEDS ORDERED: CRD200 PO (15:05)
[2017-04-23] MEDS ORDERED: DILT120C PO (15:05)
[2017-04-23] MEDS ORDERED: DIVA125T18 PO (15:05)
[2017-04-23] MEDS ORDERED: MULTI-VITAMIN INFUSION INJ 10 ML, THIAMINE HCL INJ 100 MG, FoLIC ACID INJ 1 MG, MAG SUL... IV ONE ×5 (15:15)
[2017-04-23] MEDS ORDERED: ONDANSETRON INJ 2 MG/ML 2 ML VIAL IV PRN (15:15)
--- NOTE | 2017-04-23 15:33 | History and Physical ---
History & Physical Date & Time of Service: Apr 23, 2017 at 15:32 Chief Complaint: Seizure like activity, r/o DT's, tongue laceration Primary Care Physician: Misha Beltre M.D. (MEDICAL) History of Present Illness Source: patient, hospital records This is a 56yo M with a PMH of alcohol abuse, tobacco abuse, seizure disorder, thrombocytopenia and paroxysmal A fib who presents after 2 seizures since yesterday. Has a history of alcohol abuse over the past 40 years but states that he has been cutting use down to 3 6-packs a week over the past few months. Patient's last drank was 3 days ago. The first seizure-like episode was unwitnessed last night and only lasted for a few minutes, per patient. Today, he had a more severe episode of body shakes with associated throbbing headache that lasted about an hour. Patient experienced urinary incontinence and bit his tongue. States that his girlfriend came home from work to check on him and witnessed the event. During transport by EMS to ED, patient was nauseous and had 2 vomiting episodes. Denies auditory, visual hallucinations. Denies any fever, chills, confusion, CP, palpitations, SOB, hematemesis, dysuria, diarrhea , LE swelling. Has a significant bruise on his L forearm from a fall 4 days ago. Endorses a history of seizures. Knows that at least one seizure occurred during a time of alcohol withdrawal that occurred 5 years ago. Was admitted in October- November of this year for management of alcohol withdrawal that required intubation. Was discharged on Depakote, amlodipine and diltiazem but has not been taking these lately. In the ER, patient is tachycardic but stable. Is A&Ox3. Had ripped out his IV prior to my exam. Became agitated and tried to climb out of bed to use the restroom but was otherwise cooperative. Has not had any seizure like activity while in ED. He received 4mg of IV Ativan total along with IVF resuscitation. Past Medical/Surgical History Medical Problems: (1) Alcohol abuse Status: Chronic (2) History of traumatic brain injury Status: Chronic (3) Thrombocytopenia Status: Resolved (4) Tobacco abuse Status: Chronic Surgical Problems: (1) No pertinent past surgical history Status: Chronic Family History FH: cancer MOTHER (pancreatic CA ) FH: heart disease FATHER ([place] age 68 ) Social History Smoking Status: Current Some Day Smoker Smokeless Tobacco Use: Yes (1 can/day ) Alcohol Use: heavy Drug Use: other Marital Status: , in relationship Housing status: lives with significant other, other Occupational Status: unemployed Immunizations History of Influenza Vaccine: No History of Tetanus Vaccine?: Unknown Tetanus Immunization Date: Jul 21, 2006 History of Pneumococcal: No History of Hepatitis B Vaccine: No Hepatitis Immunization Date: Jul 21, 1983 Multi-Drug Resistant Organisms History of MDRO: No Allergies Coded Allergies: Ibuprofen (Unverified Allergy, Unknown, FACIAL SWELLING, 04/23/17) Home Medications Scheduled Amiodarone HCl (Amiodarone HCl), 200 MG PO BID Diltiazem Hcl Coated Beads (Diltiazem Hcl Er), 1 CAP PO DAILY Divalproex Sodium (Depakote), 1 TAB PO TID Divalproex Sodium (Depakote), 1 TAB PO TID Review of Systems Ten systems reviewed and negative except as noted in the HPI. Physical Exam Vital Signs Date Time Temp Pulse Resp B/P (MAP) Pulse Ox O2 Delivery O2 Flow Rate FiO2 04/23/17 14:17 88 28 96 04/23/17 14:01 159/95 04/23/17 13:47 91 33 94 04/23/17 13:17 74 92 04/23/17 13:01 189/100 04/23/17 12:47 93 19 97 04/23/17 12:31 161/93 04/23/17 12:30 109 04/23/17 12:29 37.1 109 18 165/111 99 Room Air 04/23/17 12:29 99 Room Air 04/23/17 12:26 165/111 General Appearance: + moderate distress (tremulous with bouts of agitation ), + pertinent finding (Chronically ill) Head: normocephalic, atraumatic Eyes: normal inspection, PERRL, sclerae normal (conjunctiva normal ) ENT: hearing grossly normal, pharynx normal, + pertinent finding (Tongue with a 3cm laceration on L frontal aspect. 4 sutures placed, no active bleeding. Surrounding edema.) Neck: supple, no JVD, trachea midline Respiratory/Chest: chest non-tender, lungs clear, normal breath sounds, no respiratory distress, no accessory muscle use Cardiovascular: no murmur, normal peripheral pulses, + tachycardia Abdomen/GI: normal bowel sounds, non tender, soft, no organomegaly Back: normal inspection Extremities/Musculoskelatal: no calf tenderness, no pedal edema, + pertinent finding (Large contusion on L forearm with associated edema. +TTP ) Neurologic/Psych: no motor/sensory deficits, alert, normal mood/affect, oriented x 3, + pertinent finding (Intermittent agitation but otherwise cooperative) Skin: normal color Diagnostics Laboratory Results Results Past 24 Hours Test 04/23/17 12:44 04/23/17 12:58 04/23/17 14:54 04/23/17 15:15 Range/Units White Blood Count 4.63 4.8-10.8 K/uL Red Blood Count 4.47 4.7-6.1 M/uL Hemoglobin 14.7 14.0-18.0 g/dL Hematocrit 41.6 42-52 % Mean Corpuscular Volume 93.1 80-100 fL Mean Corpuscular Hemoglobin 32.9 25-34 pg Mean Corpuscular Hemoglobin Concent 35.3 32-36 g/dl Platelet Count 69 130-400 K/uL Mean Platelet Volume 9.4 7.4-10.4 fL Neutrophils (%) (Auto) 83.2 % Lymphocytes (%) (Auto) 7.3 % Monocytes (%) (Auto) 8.9 % Eosinophils (%) (Auto) 0.0 % Basophils (%) (Auto) 0.2 % Neutrophils # (Auto) 3.85 1.4-6.5 K/uL Lymphocytes # (Auto) 0.34 1.2-3.4 K/uL Monocytes # (Auto) 0.41 0.11-0.59 K/uL Eosinophils # (Auto) 0.00 0-0.5 K/uL Basophils # (Auto) 0.01 0-0.2 K/uL RDW Standard Deviation 48.8 36.4-46.3 fL RDW Coefficient of Variation 14.4 11.5-14.5 % Immature Granulocyte % (Auto) 0.4 % Immature Granulocyte # (Auto) 0.02 0.00-0.02 K/uL Platelet Estimate DECREASED Sodium Level 137 136-145 mmol/L Potassium Level 3.6 3.5-5.1 mmol/L Chloride Level 99 98-107 mmol/L Carbon Dioxide Level 27 21-32 mmol/L Anion Gap 11.0 3-11 mmol/L Blood Urea Nitrogen 6 7-18 mg/dl Creatinine 0.72 0.60-1.40 mg/dl Est Creatinine Clear Calc Drug Dose 142.3 ml/min Estimated GFR () 121.7 Estimated GFR (Non- 105.0 BUN/Creatinine Ratio 8.0 10-20 Random Glucose 112 70-99 mg/dl Calcium Level 9.0 8.5-10.1 mg/dl Magnesium Level 2.4 1.8-2.4 mg/dl Total Bilirubin 0.8 0.2-1 mg/dl Direct Bilirubin 0.3 0-0.2 mg/dl Aspartate Amino Transf (AST/SGOT) 64 15-37 U/L Alanine Aminotransferase (ALT/SGPT) 60 12-78 U/L Alkaline Phosphatase 161 45-117 U/L Troponin I < 0.015 0-0.045 ng/ml Total Protein 7.8 6.4-8.2 gm/dl Albumin 4.1 3.4-5.0 gm/dl Ethyl Alcohol mg/dL < 3.0 0-3 mg/dl Bedside Lactic Acid Venous 3.17 0.90-1.70 mmol/L Creatine Kinase MB Ratio 0-3.[address] head: IMPRESSION: No acute intracranial findings CXR: IMPRESSION: No active disease in the chest. EKG Normal sinus rhythm at 87 bpm Normal ECG No change from prior EKG Impression Assessment and Plan This is a 56yo M with a PMH of alcohol abuse, tobacco use disorder, seizure disorder, thrombocytopenia and paroxysmal A fib who presents after 2 seizure- like episodes since yesterday. Seizure, delirium tremens: -Patient is A&Ox3, denies hallucinations. +Agitated, tremulous -H/o seizures, at least one episode associated with etoh withdrawal in the past -Had an episode of DTs in October 2016 requiring intubation -Was discharged home on depakote and but is not taking currently -Continue depakote at home dose for now -Neuro consulted for seizures -ICU consult placed due to h/o intubation during last admission -Etoh withdrawal protocol, banana bag (with Mg), IVF -Initial lactate elevated to 3 -Repeat lactate, TSH, phos, CPK pending -Trend cardiac enzymes -CBC, CMP, Mg, phos in AM -PT/OT evals, discharge planning -Consider psych consult if indicated Lactic acidosis: -Likely secondary to seizure, dehydration -No signs of infection in lab work or on exam -IVF resuscitation -Recheck lactate levels Thrombocytopenia: -Patient with chronic thrombocytopenia, 2/2 alcohol use -Monitor in AM -SCDs only for DVT prophylaxis Paroxysmal A Fib: -Occurred during October 2016 admission -Non-compliant with home diltiazem and amiodarone -Initial EKG with NSR -Resumed scheduled home meds -EKG if in CP Tobacco use: -Counseled on smoking cessation -Nicotine patch ordered L forearm contusion: -L forearm XR ordered DVT Ppx: SCDs (in setting of thrombocytopenia) Code status: FULL PCP: Alexsander Dispo: SW consulted to help with discharge placement. Patient desires to go to rehab. Patient seen in collaboration with Dr. Solano. Please see addendum. Level of Care Critical Care Resuscitation Status FULL RESUSCITATION VTE Prophylaxis VTE Risk Assessment Done? Y/N: Yes Risk Level: Moderate Given or contraindicated: SCD's
[2017-04-23 15:36] LABS: PROTHROMBIN TIME (PATIENT) 10.9 SECONDS (9.0-12.0)
--- NOTE | 2017-04-23 15:46 | History and Physical ---
History & Physical Date of Service Apr 23, 2017. History & Physical This is a 56 year old male with a PMH of alcohol dependence, hx. of withdrawal/ delirium tremens requiring intubation, hx. of paroxysmal atrial fibrillation, hx. of seizure disorder presents to the ER after a seizure episode. As per patient, he had a "few drinks" about three days ago. He tells me that he no longer drinks alcohol except for this one exception. He states that he is not taking any of his medications that he was prescribed after being discharged from [facility] in October. Back in October (admitted for delirium tremens) his admission was complicated with significant agitation, anxiety, hallucinations - requiring intubation. At that time, he was started on amiodarone, diltiazem and was told to continue depakote. He has been non-compliant with these medications. Tells me that last evening (04/22) - he had the "shakes" and chills and states he might have had a minor seizure. He slept through it and this morning had another seizure, unwitnessed, he bit his tongue and wet himself. He was brought in for further evaluation. VITALS: Last Vital Signs Documentation Date Time Temp Pulse Resp B/P (MAP) Pulse Ox O2 Delivery O2 Flow Rate FiO2 04/23/17 14:17 88 28 96 04/23/17 14:01 159/95 04/23/17 12:29 37.1 Room Air GEN: +agitated, anxious, tremulousness HEENT: +tongue laceration on L lateral side s/p sutures CVS: sinus tachycardia LUNGS: CTA b/l, no respiratory distress, no wheezing ABD: soft, NT/ND EXT: no edema NEURO: anxious/depressed mood, no focal deficits Seizure Hx. of Delirium Tremens and Seizure Disorder as per records, patient has both seizure disorder for which he is on Depakote He had an episode of DTs in October 2016 requiring intubation Mg and K wnl +lactic acidosis likely secondary to seizure will add banana bag daily (thiamine, folic acid, multivitamin, Mg) alcohol withdrawal protocol with gabapentin and Ativan PRN check TSH, Phos, CPK trend cardiac enzymes continue Depakote at the dose he was discharged on with a Depakote level pending neurology and global account executive consulted for further input mental health consultation PT/OT + discharge planning evaluation Paroxysmal A. Fib during previous admission here in [facility] in October 2016, patient was in A. Fib with RVR actually has been noncompliant with his Cardizem and amiodarone medications will restart them here as he is agitated and in tachycardia currently in sinus rhythm Thrombocytopenia patient with chronic thrombocytopenia, likely due to alcohol use will monitor platelets and avoid medical DVT prophylaxis DVT ppx SCDs FULL CODE
[2017-04-23 15:47] LABS: ALT/SGPT 54 U/L (12-78); AST/SGOT 52 U/L (15-37); BLOOD UREA NITROGEN 5 mg/dl (7-18); BUN/CREATININE RATIO 9.2 (10-20); CARBON DIOXIDE 25 mmol/L (21-32); CHLORIDE 102 mmol/L (98-107); CREATININE 0.55 mg/dl (0.60-1.40); GLUCOSE 89 mg/dl (70-99); POTASSIUM 3.6 mmol/L (3.5-5.1); SODIUM 135 mmol/L (136-145)
[2017-04-23 15:57] LABS: ALKALINE PHOSPHATASE 139 U/L (45-117); CKMB/CK RATIO 2.5 (0-3.0); PHOSPHORUS 2.5 mg/dl (2.5-4.9); THYROID STIMULATING HORMONE 0.423 uIu/ml (0.300-4.500)
[2017-04-23 16:14] VITALS: BP 152/86; PULSE 101; TEMP 36.8; O2SAT 97; Ht 193 cm; Wt 70.9 kg
[2017-04-23] MEDS ORDERED: GABAPENTIN 1200MG LOADING DOSE PO ONE (16:30)
--- NOTE | 2017-04-23 17:04 | Critical Care Consultation ---
Critical Care Consultation Date of Consultation: Apr 23, 2017. Attending Physician: Thomas Solano DO Reason for Consultation: Seizure-like activity, on a background of seizure disorder and intermittent alcohol cessation History of Present Illness Patient presents with seizure-like activity this morning, witnessed by a friend , during which the patient was incontinent of urine and sustained a tongue laceration. Also, his friends notes that patient had been falling down very often, and recently hurt his left arm. His friend states that patient had been complaining of headache, upset stomach and "shakes" ongoing over the past 3 days. This coincides with his apparent last alcoholic drink. The patient has a history of seizures occurring after he quit drinking. Patient also had 2 episode of emesis as per EMS, and 1 episode on arrival in the ED. Patient has history of alcoholism, but his story regarding drinking recently has varied among different providers. He states intermittent alcohol consumption , with heavy drinking for 1 week, and attempts to cut back to 2-6 beers more recently. Patient reports his last drink was 3 days ago, and he had decided to quit drinking at that point. He denies use of any other drugs. He also states he is not taking any prescription medication. In the ED, patient was severely tremulous, hypertensive, tachycardic. He was given IV Ativan x 2, IV fluids and IM Thiamine, which improved his symptoms somewhat. His tongue laceration was repaired by Nitesh Pleitez PA-C. There has not been any seizure activity while in the ED. CT head is negative. CXR shows rib fractures with various stages of healing. Lab derangements show thrombocytopenia (given no active bleeding, he was not transfused), elevated LFTs, lactate is 2.8, EtOH levels negative. Patient was admitted to the ICU for close monitoring of DT, further workup and treatment. Past Medical/Surgical History Medical Problems: (1) Paroxysmal A fib (2) Alcohol dependence/abuse (3) Seizure disorder (4) Tobacco abuse (5) Thrombocytopenia (6) Malnutrition related to chronic disease (7) History of traumatic brain injury Surgical Problems: Nil Family History FH: cancer MOTHER (pancreatic CA ) FH: heart disease FATHER ([place] age 68 ) Social History Smoking Status: Current Some Day Smoker Alcohol Use: occasionally Drug Use: none, other Marital Status: , in relationship Housing Status: lives alone Occupation Status: unemployed Allergies Coded Allergies: Ibuprofen (Unverified Allergy, Unknown, FACIAL SWELLING, 04/23/17) Home Medications Scheduled Amiodarone HCl (Amiodarone HCl), 200 MG PO BID Diltiazem Hcl Coated Beads (Diltiazem Hcl Er), 1 CAP PO DAILY Divalproex Sodium (Depakote), 1 TAB PO TID Divalproex Sodium (Depakote), 1 TAB PO TID Current Inpatient Medications Current Inpatient Medications Medications (Trade) Dose Ordered Sig/Rica Route Start Time Stop Time Status Last Admin Dose Admin Sodium Chloride 1,000 ml @ 100 mls/hr Q10H IV 04/23/17 14:44 05/23/17 14:43 UNV Multivitamins 10 ml/Thiamine HCl 100 mg/Folic Acid 1 mg/Magnesium Sulfate 1 gm/ Sodium Chloride 1,013.2 ml @ 500 mls/ hr Q2H2M ONCE IV 04/23/17 15:15 04/23/17 17:16 Lorazepam (Ativan Tab) 1 mg ONE PRN PO 04/23/17 14:45 UNV Lorazepam (Ativan Tab) PRN Dosing -Active Protocol UD PRN PO 04/23/17 14:45 05/23/17 14:44 UNV Gabapentin (Neurontin Tab) 1,200 mg SEE PROTOCOL TEXT PO 04/23/17 14:45 05/23/17 14:44 UNV Nicotine (Nicoderm Cq 21MG Patch) 1 patch QAM TD 04/24/17 09:00 05/24/17 08:59 UNV Miscellaneous (Remove Nicoderm Patch) 1 ea HS N/A 04/23/17 21:00 05/23/17 20:59 UNV Diltiazem HCl (Cardizem Cd Cap) 120 mg DAILY PO 04/24/17 09:00 05/24/17 08:59 UNV Divalproex Sodium (Depakote Delay Rel Tab) 125 mg TID PO 04/23/17 21:00 05/23/17 20:59 UNV Divalproex Sodium (Depakote Delay Rel Tab) 500 mg TID PO 04/23/17 21:00 05/23/17 20:59 UNV Ondansetron HCl (Zofran Inj) 4 mg Q6H PRN IV 04/23/17 15:15 05/23/17 15:14 UNV Amiodarone HCl (Cordarone Tab) 200 mg BID PO 04/23/17 21:00 05/24/17 08:59 UNV Review of Systems ROS unremarkable except as noted above. Physical Exam Date Time Temp Pulse Resp B/P (MAP) Pulse Ox O2 Delivery O2 Flow Rate FiO2 04/23/17 15:39 105 147/95 04/23/17 14:17 88 28 96 04/23/17 14:01 159/95 04/23/17 13:47 91 33 94 04/23/17 13:17 74 92 04/23/17 13:01 189/100 04/23/17 12:47 93 19 97 04/23/17 12:31 161/93 04/23/17 12:30 109 04/23/17 12:29 37.1 109 18 165/111 99 Room Air 04/23/17 12:29 99 Room Air 04/23/17 12:26 165/111 GENERAL: alert, thin, lying in bed, no acute distress, non-toxic HEAD: NC/AT EYES: Normal sclera and conjunctiva OROPHARYNX: No perioral cyanosis. No exudate, no erythema. Lips, buccal mucosa normal. Tongue laceration on left side, s/p suture repair. Mucous membranes are dry. NECK: Supple, no adenopathy, non-tender LUNGS: Normal chest wall mechanics. CTAB with good air entry. No rales, crackles , or wheezes HEART: RRR, S1 and S2 normal, no murmurs appreciated ABDOMEN: Soft, non-tender, normo-active bowel sounds, no masses, no rebound or guarding. : normal external genitalia SKIN: Warm, pink, dry. No erythema, rashes, or bruising. EXTREMITIES: Grossly normal. No pitting edema. Calves supple. NEURO: Alert. No focal deficits. Normal sensorium, cranial nerves II-XII grossly intact, normal speech. Kernig and Brudzinski negative PSYCH: Agitated/anxious mood Laboratory Results Last 24 Hours Test 04/23/17 12:44 04/23/17 12:58 04/23/17 14:54 04/23/17 15:15 White Blood Count 4.63 K/uL Red Blood Count 4.47 M/uL Hemoglobin 14.7 g/dL Hematocrit 41.6 % Mean Corpuscular Volume 93.1 fL Mean Corpuscular Hemoglobin 32.9 pg Mean Corpuscular Hemoglobin Concent 35.3 g/dl Platelet Count 69 K/uL Mean Platelet Volume 9.4 fL Neutrophils (%) (Auto) 83.2 % Lymphocytes (%) (Auto) 7.3 % Monocytes (%) (Auto) 8.9 % Eosinophils (%) (Auto) 0.0 % Basophils (%) (Auto) 0.2 % Neutrophils # (Auto) 3.85 K/uL Lymphocytes # (Auto) 0.34 K/uL Monocytes # (Auto) 0.41 K/uL Eosinophils # (Auto) 0.00 K/uL Basophils # (Auto) 0.01 K/uL RDW Standard Deviation 48.8 fL RDW Coefficient of Variation 14.4 % Immature Granulocyte % (Auto) 0.4 % Immature Granulocyte # (Auto) 0.02 K/uL Platelet Estimate DECREASED Sodium Level 137 mmol/L 135 mmol/L Potassium Level 3.6 mmol/L 3.6 mmol/L Chloride Level 99 mmol/L 102 mmol/L Carbon Dioxide Level 27 mmol/L 25 mmol/L Anion Gap 11.0 mmol/L 8.0 mmol/L Blood Urea Nitrogen 6 mg/dl 5 mg/dl Creatinine 0.72 mg/dl 0.55 mg/dl Est Creatinine Clear Calc Drug Dose 142.3 ml/min 186.2 ml/min Estimated GFR () 121.7 136.0 Estimated GFR (Non- 105.0 117.3 BUN/Creatinine Ratio 8.0 9.2 Random Glucose 112 mg/dl 89 mg/dl Calcium Level 9.0 mg/dl 8.0 mg/dl Magnesium Level 2.4 mg/dl Total Bilirubin 0.8 mg/dl 0.8 mg/dl Direct Bilirubin 0.3 mg/dl Aspartate Amino Transf (AST/SGOT) 64 U/L 52 U/L Alanine Aminotransferase (ALT/SGPT) 60 U/L 54 U/L Alkaline Phosphatase 161 U/L 139 U/L Troponin I < 0.015 ng/ml < 0.015 ng/ml Total Protein 7.8 gm/dl 7.1 gm/dl Albumin 4.1 gm/dl 3.6 gm/dl Ethyl Alcohol mg/dL < 3.0 mg/dl Bedside Lactic Acid Venous 3.17 mmol/L Creatine Kinase MB Ratio 2.5 Prothrombin Time 10.9 SECONDS Prothromb Time International Ratio 1.0 Lactic Acid Level 1.1 mmol/L Phosphorus Level 2.5 mg/dl Total Creatine Kinase 513 U/L Creatine Kinase MB 12.8 ng/ml Globulin 3.5 gm/dl Albumin/Globulin Ratio 1.0 Thyroid Stimulating Hormone (TSH) 0.423 uIu/ml Diagnostic Results CT HEAD WITHOUT CONTRAST (CT) CLINICAL HISTORY: seizure COMPARISON STUDY: 10/26/2016 TECHNIQUE: Axial CT of the brain is performed from the vertex to the skull base. IV contrast was not administered for this examination. A dose lowering technique was utilized adhering to the principles of ALARA. CT DOSE: 614.27 mGy.cm FINDINGS: No intra or extra-axial mass lesions are visualized. There is no CT evidence of acute cortical infarction. There is no evidence of midline shift. There is no acute hemorrhage. No calvarial fractures are visualized. There are patchy white matter hypodensities likely on a small vessel basis. There are atrophic changes with commensurate ventricular prominence. There is a right axilla sinus polyp/retention cyst similar to the prior study IMPRESSION: No acute intracranial findings CHEST ONE VIEW PORTABLE CLINICAL HISTORY: seizure COMPARISON STUDY: 11/19/2016 FINDINGS: The cardiac and mediastinal contours are normal. There is no evidence of focal pulmonary consolidation. There is no evidence of failure. No pleural effusions are visualized. There are old left-sided rib fractures. IMPRESSION: No active disease in the chest. Assessment & Plan Reason critically ill: 56 year old male presents with seizure-like activity, on a background of seizure disorder and intermittent alcohol cessation. Neuro - CAM-ICU negative. - Continue to monitor for changes in RASS - AWSS protocol: Ativan, gabapentin - Resume Divalproex. Valproic levels pending. - EEG ordered - Consulted neurology for seizures - Consulted mental health CV - Vitals: HR 80-110, SBP 140-180 - Hemodynamically stable - H/o paroxysmal a.fib: restart previous home meds: diltiazem, amiodarone - Trend troponin - Continue to monitor on telemetry - EKG PRN chest pain Resp - Saturating well on RA - CXR: no acute pathology - ADvised for smoking/tobacco chewing cessation. Nicotine patch ordered GI/Nutrition - Diet: Regular diet - Zofran PRN nausea Renal/ - IVF NSS @100cc/hr - Banana bag ordered - Electrolytes WNL - Trend BMP and replete as necessary - Corley not indicated, patient voiding ID - Antibiotics not warranted. No leukocytosis, afebrile Endo - No h/o DM. Glucose monitoring as per ICU protocol. - Sugars currently WNL Heme - H/H stable. Coags WNL. Platelets low - monitor for signs of bleeding/bruising - Trend CBC MSK/Skin - Xray of LEFT forearm ordered - OT/PT evals Access/Line - Peripheral IV VTE Prophylaxis - SCDs, TEDs Resident Physician Supervision Note: I was present with Dr. Marie during the history and exam. I discussed the case with the resident and agree with the findings and plan as documented in the note. Any exceptions or clarifications are listed here: Patient with chronic alcohol abuse, prior withdrawal seizures, known to us from long hospital stay with intubation, came to ED after suspected seizures, associated with tongue biting requiring sutures. States that he quit drinking few days ago. Fell few days ago sustaining a bruise on the left arm and left flank. Now in alcohol withdrawal, tremulous, occasionally agitated. Not taking his meds (Depakote, amiodarone) Problems: Delirium tremens Alcohol withdrawal seizure Paroxysmal atrial fibrillation Plan: Started on Ativan and gabapentin per protocol. Will likely require a continuous infusion of lorazepam or dexmedetomidine as I suspect his symptoms will worsen Resumed Depakote. Level is negative Thiamine, folate, MVI in "banana bag" Lactic acid cleared Resumed amiodarone Not an anticoagulation candidate in my opinion, prone to traumas (already has ecchymosis from falling) Critical care time spent with the patient, reviewing the chart, greater than 32 minutes Documented By: Morales Ospina MD Resident Tracking Resident Involvement: Resident Care Provided Care Provided: Adult Hospital Medicine
--- NOTE | 2017-04-23 17:54 | CONSULTATION REPORT ---
DATE OF CONSULTATION: 04/23/[address] Solano. Stuart is 56 years old, is a patient of Dr. Andrea Beltre, has a long history of alcohol dependency with prior withdrawal delirium tremens requiring intubation and complicated by paroxysmal atrial fibrillation and a prolonged hospital stay here at [facility], not over a year ago. He theoretically is to be taking some Depakote to prevent seizures, as he does have a history of seizures in the past. It is not clear whether he has been doing this but he certainly has been drinking and has been bingeing and then actually stopped drinking about 5-7 days ago. The only alcohol he has consumed is a few drinks and he has gotten increasingly shaky and had apparently 2 witnessed or at least 1 witnessed generalized seizure with a tongue laceration today. He is now agitated. He is in the ICU and is being cared for and is on benzodiazepine/neurontin protocol. Neurology is asked to see him because of possibility that he has an underlying seizure disorder and apparently by history, he does although he is very vague right now and the record is a little unclear. PAST MEDICAL HISTORY: Does show a history of the seizures. Apparently with alcohol withdrawal but possibly without it. He is on Depakote and apparently was not taking it quite as intended on an outpatient basis, although again his compliance reporting is not reliable. He has a history of paroxysmal atrial fibrillation, thrombocytopenia likely related to alcoholism. Otherwise, only has, from past medical history, a history of tobacco abuse. FAMILY HISTORY: Positive for cancer in his mother and heart disease in the father. SOCIAL HISTORY: Reveals him to be a current smoker, prior heavy alcohol user until recently when he started to cut down and stopped entirely. He is . He lives with his significant other. He is unemployed. IMMUNIZATIONS: Up-to-date. There is no history of drug resistant organisms. ALLERGIES: HE HAS COATED ALLERGIES TO IBUPROFEN. MEDICATIONS AT HOME: Theoretically include amiodarone, diltiazem, Depakote I believe 750 mg twice a day. REVIEW OF SYSTEMS: Really could not be obtained from the patient with any degree of reliability today and I refer reader to the ER notes and the recorded histories and physicals from the shear operator automatic and the medical service. He is very vague, evasive, states that he has been compliant with medications but then drifts off. He is tremulous, agitated. He has a lot of tangential speech. It is not clear whether he is hallucinating or not. Gross cranial nerve examination is intact. He has normal eye movements, normal facial motility and strength. Normal facial sensation. Speech is a little dysarthric due to the lingual laceration. Reflexes are difficult to assess because of his poor relaxation, I think he has them and toes are downgoing. His strength testing is grossly intact. Sensory examination really cannot be performed with any degree of reliability because of his agitation alternating with lethargy. PHYSICAL EXAMINATION: VITAL SIGNS: A general physical examination today revealed a blood pressure 159/95, pulse was 88 and regular, respirations were 28. GENERAL: He was somewhat thin male, appearing to be in moderate distress. HEENT: Examination was atraumatic with the exception of lingual laceration. Eyes were normal. There was no scleral icterus. LUNGS: Clear. HEART: Had a rather regular rhythm. No murmurs were heard. ABDOMEN: Soft, nontender. BACK: Normal. EXTREMITIES: Free of edema. NEUROLOGIC: Recorded above. LABORATORY STUDIES: Revealed slightly elevated white count. CPK and transaminases are elevated Ethyl alcohol level is less than 3. Troponin is normal. Liver profiles appear to be abnormal but may be falsely elevated due to myonecrosis post seizure Platelets are decreased. CAT scan of the brain shows some leukoencephalopathy and compensatory ventriculomegaly. Chest x-ray shows no active disease. At this point, I suspect there has been another series of alcohol withdrawal seizures. The patient admittedly has stopped drinking with the exception of 3 small alcoholic beverages several days ago and has been quite tremulous, leading up to the seizures. He is going to be treated with a standard Neurontin and benzodiazepine and multivitamin/thiamine protocol. His Depakote has been reinstituted. I am going to get an EEG but at this point, I do not see that neurology is going to offer anything more other than periodically follow him. Hopefully, the current level of agitation will diminish and he will come out of this without having the issues that complicated his last hospitalization for alcohol withdrawal in October. We will check on him tomorrow. DURAN
[2017-04-23] MEDS: SODIUM CHLORIDE 0.9% 1000ML 1,000 ML IV SCH (17:56)
[2017-04-23 18:00] VITALS: BP 122/73; PULSE 89; O2SAT 95
[2017-04-23] MEDS ORDERED: INFLUENZA ADMINISTRATION CHARGE ONE (18:45)
--- NOTE | 2017-04-23 18:53 | DIAGNOSTIC IMAGING REPORT ---
L FOREARM 2 VIEWS ROUTINE CLINICAL HISTORY: Bruising, swelling. COMPARISON: None FINDINGS: No acute fracture of the left radius or ulna is identified. An IV is incidentally noted. Soft tissue swelling of the dorsal aspect of the left forearm is noted. IMPRESSION: No acute fracture of the left radius or ulna. Electronically signed by: Salomón Villalobos M.D. 04/23/2017 6:52 PM Dictated Date/Time: 04/23/2017 6:50 PM
[2017-04-23] MEDS ORDERED: INFLUENZA VIRUS QUAD VACCINE 0.5 ML SYR IM. ONE (19:00)
[2017-04-23] MEDS: DIVALPROEX DELAY REL TAB 125 MG TABEC PO SCH (19:59)
[2017-04-23 20:00] VITALS: BP 133/71; PULSE 78; TEMP 36.9; O2SAT 95
[2017-04-23] MEDS: DIVALPROEX SODIUM 500 MG DELAY RELEASE TAB PO SCH (20:00)
[2017-04-23] MEDS: AMIODARONE 200 MG TAB PO SCH (20:01)
[2017-04-23] MEDS: LORAZEPAM 1 MG TAB PO PRN (20:16)
[2017-04-23 21:41] LABS: CKMB/CK RATIO 1.8 (0-3.0)
[2017-04-23 22:00] VITALS: BP 115/69; PULSE 79; O2SAT 93
[2017-04-23] MEDS: GABAPENTIN 600MG Q6H DOSE PO SCH (22:27)
[2017-04-23 23:01] VITALS: BP 134/80; PULSE 78; O2SAT 94
[2017-04-24] VITALS (24 sets, daily range): BP systolic 112–182; BP diastolic 75–166; PULSE 60–119; TEMP 36.8–37.5; O2SAT 83–99
[2017-04-24] MEDS: GABAPENTIN 600MG Q6H DOSE PO SCH (05:19)
[2017-04-24 05:47] LABS: HEMATOCRIT 41.3 % (42-52); MEAN CELL VOLUME 95.4 fL (80-100); MEAN CORPUSCULAR HEMOGLOBIN 32.8 pg (25-34); MEAN CORPUSCULAR HGB CONC 34.4 g/dl (32-36); RED BLOOD COUNT 4.33 M/uL (4.7-6.1); WHITE BLOOD COUNT 5.58 K/uL (4.8-10.8)
[2017-04-24 05:55] LABS: MEAN PLATELET VOLUME 10.2 fL (7.4-10.4); PLATELET COUNT 56 K/uL (130-400)
[2017-04-24 06:25] LABS: ALB/GLOB RATIO 0.9 (0.9-2); ALKALINE PHOSPHATASE 135 U/L (45-117); ALT/SGPT 46 U/L (12-78); AST/SGOT 41 U/L (15-37); BLOOD UREA NITROGEN 3 mg/dl (7-18); BUN/CREATININE RATIO 4.5 (10-20); CALCIUM 8.2 mg/dl (8.5-10.1); CARBON DIOXIDE 26 mmol/L (21-32); CHLORIDE 103 mmol/L (98-107); CKMB/CK RATIO 1.3 (0-3.0); GLUCOSE 127 mg/dl (70-99); MAGNESIUM 2.3 mg/dl (1.8-2.4); PHOSPHORUS 2.5 mg/dl (2.5-4.9); SODIUM 138 mmol/L (136-145)
[2017-04-24] MEDS ORDERED: POTASSIUM CHLORIDE 20 MEQ TABCR PO STA (06:58)
[2017-04-24] MEDS: AMIODARONE 200 MG TAB PO SCH ×2 (07:53→20:37)
[2017-04-24] MEDS: NICOTINE 21 MG/24 HR TDSY TD SCH (07:54)
[2017-04-24] MEDS: DIVALPROEX SODIUM 500 MG DELAY RELEASE TAB PO SCH ×3 (07:54→20:38)
[2017-04-24] MEDS: DIVALPROEX DELAY REL TAB 125 MG TABEC PO SCH ×3 (07:54→20:38)
[2017-04-24] MEDS: DILTIAZEM HCL 120 MG CAPCR PO SCH (07:55)
[2017-04-24] MEDS: POTASSIUM CHLR 10 MEQ / WTR 10 MEQ in PREMIXED WATER 100 ML IV SCH ×4 (07:55→11:22)
[2017-04-24] MEDS: SODIUM CHLORIDE 0.9% 1000ML 1,000 ML IV SCH (08:05)
[2017-04-24] MEDS ORDERED: AMIODARONE 200 MG TAB PO SCH (09:00)
[2017-04-24] MEDS: LORAZEPAM 1 MG TAB PO PRN (10:17)
--- NOTE | 2017-04-24 10:56 | Critical Care Progress Note ---
Critical Care Progress Note Date of Service Apr 24, 2017. ICU Day ICU Day Number: [address] Ospina Subjective Patient well this morning, denies acute events overnight. Has not had any further seizure activity since admission. Denies CP, SOB, palpitations. Says he has not been seeing or hearing anything unusual. His tremors have improved, he did have some diaphoresis overnight. He is still anxious and is speaking fast and cursing a lot. He states he is tired of being in this same room, talks about leaving, but says he won't. He denies issues with appetite, N?V, abdominal pain. He is voiding without issue. No BM yet. Objective GENERAL: alert, thin, lying in bed, no acute distress, non-toxic HEAD: NC/AT EYES: Normal sclera and conjunctiva OROPHARYNX: No perioral cyanosis. No exudate, no erythema. Lips, buccal mucosa normal. Tongue laceration on left side, s/p suture repair. Mucous membranes are dry. NECK: Supple, no adenopathy, non-tender LUNGS: Normal chest wall mechanics. CTAB with good air entry. No rales, crackles , or wheezes HEART: RRR, S1 and S2 normal, no murmurs appreciated ABDOMEN: Soft, non-tender, normo-active bowel sounds, no masses, no rebound or guarding. SKIN: Warm, pink, dry. No erythema, rashes. Bruising on arm and torso from previous falls EXTREMITIES: Grossly normal. No pitting edema. Calves supple. NEURO: Alert. No focal deficits. Normal sensorium, cranial nerves II-XII grossly intact, normal speech. PSYCH: Agitated mood. Rapid speech. Raising volume with frustration Current SOFA Score SOFA Score Response (Comments) Value Platelets (x10) < 100 2 Bilirubin (mg/dL) 1.2 - 1.9 1 [place] Coma Score 15 0 Level of Hypotension No Hypotension 0 Creatinine (mg/dL) < 1.2 0 Total 3 Assessment & Plan Reason critically ill: 56 year old male presents with seizure-like activity, on a background of seizure disorder and intermittent alcohol cessation. Neuro - CAM-ICU negative. - Continue to monitor for changes in RASS - AWSS protocol: Ativan, gabapentin - Continue Divalproex. Valproic levels negative - EEG ordered - Consulted neurology for seizures - Consulted mental health CV - Vitals: HR 80-120, SBP 120-160 - Hemodynamically stable - H/o paroxysmal a.fib: restart previous home meds: diltiazem, amiodarone - Troponin negative - Continue to monitor on telemetry - EKG PRN chest pain Resp - Saturating well on RA. Oxygen support if needed - Advised for smoking/tobacco chewing cessation. Nicotine patch ordered GI/Nutrition - Diet: Regular diet - Zofran PRN nausea Renal/ - Banana bag x 3 days total - Electrolytes show low K+ - replete and trend BMP - Corley not indicated, patient voiding ID - Antibiotics not warranted. No leukocytosis, afebrile Endo - No h/o DM. Glucose monitoring as per ICU protocol. - Sugars currently WNL Heme - H/H stable. Coags WNL. Platelets low - monitor for signs of bleeding/bruising - Trend CBC MSK/Skin - Xray of LEFT forearm show no fracture. - OT/PT evals Access/Line - Peripheral IV VTE Prophylaxis - SCDs, TEDs - Not a good candidate for chemical anticoagulation, since ecchymosis from multiple falls already Resident Physician Supervision Note: I was present with Dr. Marie during the history and exam. I discussed the case with the resident and agree with the findings and plan as documented in the note. Any exceptions or clarifications are listed here: Patient with chronic alcohol abuse, prior withdrawal seizures, known to us from long hospital stay with intubation, came to ED after suspected seizures, associated with tongue biting requiring sutures. States that he quit drinking few days ago. Fell few days ago sustaining a bruise on the left arm and left flank. Now in alcohol withdrawal, tremulous, occasionally agitated. Not taking his meds (Depakote, amiodarone) Problems: Delirium tremens Alcohol withdrawal seizure Paroxysmal atrial fibrillation Plan: Started on Ativan and gabapentin per protocol. Improved significantly since yesterday, today he is less tremulous, Resumed Depakote. Level is negative Thiamine, folate, MVI in "banana bag" Lactic acid cleared Continue amiodarone Not an anticoagulation candidate in my opinion, prone to traumas (already has ecchymosis from falling) Critical care time spent with the patient, reviewing the chart, greater than 25 minutes May transfer to regular floor Documented By: Morales Ospina MD Consults & Procedures Consultants: Critical care Mental health Neurology Procedures: None Data Medications: Current Inpatient Medications Medications (Trade) Dose Ordered Sig/Rica Route Start Time Stop Time Status Last Admin Dose Admin Lorazepam (Ativan Tab) PRN Dosing -Active Protocol UD PRN PO 04/23/17 14:45 05/23/17 14:44 04/24/17 10:17 1 MG Nicotine (Nicoderm Cq 21MG Patch) 1 patch QAM TD 04/24/17 09:00 05/24/17 08:59 04/24/17 07:54 1 PATCH Miscellaneous (Remove Nicoderm Patch) 1 ea HS N/A 04/24/17 21:00 05/24/17 20:59 Diltiazem HCl (Cardizem Cd Cap) 120 mg DAILY PO 04/24/17 09:00 05/24/17 08:59 04/24/17 07:55 120 MG Divalproex Sodium (Depakote Delay Rel Tab) 125 mg TID PO 04/23/17 21:00 05/23/17 20:59 04/24/17 07:54 125 MG Divalproex Sodium (Depakote Delay Rel Tab) 500 mg TID PO 04/23/17 21:00 05/23/17 20:59 04/24/17 07:54 500 MG Ondansetron HCl (Zofran Inj) 4 mg Q6H PRN IV 04/23/17 15:15 05/23/17 15:14 Amiodarone HCl (Cordarone Tab) 200 mg BID PO 04/23/17 21:00 05/24/17 08:59 04/24/17 07:53 200 MG Gabapentin (Neurontin Tab) 600 mg Q8H PO 04/24/17 14:00 04/25/17 06:01 Gabapentin (Neurontin Tab) 600 mg Q12H PO 04/24/17 20:00 04/25/17 08:01 Gabapentin (Neurontin Tab) 600 mg Q24H PO 04/26/17 08:00 04/26/17 08:01 Potassium Chloride 10 meq/ Prmx 100 ml @ 100 mls/hr Q1H IV 04/24/17 08:00 04/24/17 11:59 04/24/17 10:10 100 MLS/HR Multivitamins 10 ml/Thiamine HCl 100 mg/Folic Acid 1 mg/Sodium Chloride 1,011.2 ml @ 100 mls/ hr DAILY IV 04/24/17 09:00 04/26/17 08:59 Vital Signs: Date Time Temp Pulse Resp B/P (MAP) Pulse Ox O2 Delivery O2 Flow Rate FiO2 04/24/17 09:30 107 97 04/24/17 09:00 114 118/88 (98) 97 04/24/17 08:30 100 99 04/24/17 08:01 37.5 90 118/88 (98) 96 Room Air 04/24/17 08:00 89 96 04/24/17 07:52 98 146/86 (106) 97 04/24/17 07:45 Room Air 04/24/17 07:30 119 98 04/24/17 07:01 109 182/166 (171) 98 04/24/17 07:00 111 98 04/24/17 05:15 91 153/84 (107) 95 Room Air 04/24/17 05:01 117 150/102 (118) 83 04/24/17 04:01 37.5 80 18 151/89 (109) 91 Room Air 04/24/17 04:00 Room Air 04/24/17 03:01 78 143/83 (103) 93 04/24/17 02:01 89 20 153/96 (115) 95 Room Air 04/24/17 01:01 82 133/75 (94) 94 Room Air 04/24/17 00:01 37.3 85 138/87 (104) 94 Room Air 04/23/17 23:59 Room Air 04/23/17 23:01 78 134/80 (98) 94 Room Air 04/23/17 22:00 79 20 115/69 (84) 93 Room Air 04/23/17 20:00 36.9 78 20 133/71 (91) 95 Room Air 04/23/17 20:00 95 Room Air 04/23/17 18:00 89 20 122/73 (89) 95 Room Air 04/23/17 16:14 36.8 101 20 152/86 97 Room Air 04/23/17 15:39 105 147/95 04/23/17 14:17 88 28 96 04/23/17 14:01 159/95 04/23/17 13:47 91 33 94 04/23/17 13:17 74 92 04/23/17 13:01 189/100 04/23/17 12:47 93 19 97 04/23/17 12:31 161/93 04/23/17 12:30 109 04/23/17 12:29 37.1 109 18 165/111 99 Room Air 04/23/17 12:29 99 Room Air 04/23/17 12:26 165/111 Laboratory Results: Last 24 Hours Test 04/23/17 12:44 04/23/17 12:58 04/23/17 14:54 04/23/17 15:15 White Blood Count 4.63 K/uL Red Blood Count 4.47 M/uL Hemoglobin 14.7 g/dL Hematocrit 41.6 % Mean Corpuscular Volume 93.1 fL Mean Corpuscular Hemoglobin 32.9 pg Mean Corpuscular Hemoglobin Concent 35.3 g/dl Platelet Count 69 K/uL Mean Platelet Volume 9.4 fL Neutrophils (%) (Auto) 83.2 % Lymphocytes (%) (Auto) 7.3 % Monocytes (%) (Auto) 8.9 % Eosinophils (%) (Auto) 0.0 % Basophils (%) (Auto) 0.2 % Neutrophils # (Auto) 3.85 K/uL Lymphocytes # (Auto) 0.34 K/uL Monocytes # (Auto) 0.41 K/uL Eosinophils # (Auto) 0.00 K/uL Basophils # (Auto) 0.01 K/uL RDW Standard Deviation 48.8 fL RDW Coefficient of Variation 14.4 % Immature Granulocyte % (Auto) 0.4 % Immature Granulocyte # (Auto) 0.02 K/uL Platelet Estimate DECREASED Sodium Level 137 mmol/L 135 mmol/L Potassium Level 3.6 mmol/L 3.6 mmol/L Chloride Level 99 mmol/L 102 mmol/L Carbon Dioxide Level 27 mmol/L 25 mmol/L Anion Gap 11.0 mmol/L 8.0 mmol/L Blood Urea Nitrogen 6 mg/dl 5 mg/dl Creatinine 0.72 mg/dl 0.55 mg/dl Est Creatinine Clear Calc Drug Dose 142.3 ml/min 186.2 ml/min Estimated GFR () 121.7 136.0 Estimated GFR (Non- 105.0 117.3 BUN/Creatinine Ratio 8.0 9.2 Random Glucose 112 mg/dl 89 mg/dl Calcium Level 9.0 mg/dl 8.0 mg/dl Magnesium Level 2.4 mg/dl Total Bilirubin 0.8 mg/dl 0.8 mg/dl Direct Bilirubin 0.3 mg/dl Aspartate Amino Transf (AST/SGOT) 64 U/L 52 U/L Alanine Aminotransferase (ALT/SGPT) 60 U/L 54 U/L Alkaline Phosphatase 161 U/L 139 U/L Troponin I < 0.015 ng/ml < 0.015 ng/ml Total Protein 7.8 gm/dl 7.1 gm/dl Albumin 4.1 gm/dl 3.6 gm/dl Ethyl Alcohol mg/dL < 3.0 mg/dl Hepatitis C Antibody Screen NEG Bedside Lactic Acid Venous 3.17 mmol/L Creatine Kinase MB Ratio 2.5 Prothrombin Time 10.9 SECONDS Prothromb Time International Ratio 1.0 Lactic Acid Level 1.1 mmol/L Phosphorus Level 2.5 mg/dl Total Creatine Kinase 513 U/L Creatine Kinase MB 12.8 ng/ml Globulin 3.5 gm/dl Albumin/Globulin Ratio 1.0 Thyroid Stimulating Hormone (TSH) 0.423 uIu/ml Valproic Acid (Depakene) Level < 3 mcg/ml Test 04/23/17 18:58 04/23/17 20:07 04/23/17 21:00 04/24/17 04:44 Lactic Acid Level 0.7 mmol/L Bedside Glucose 102 mg/dl Total Creatine Kinase 439 U/L Creatine Kinase MB 8.0 ng/ml Creatine Kinase MB Ratio 1.8 Troponin I < 0.015 ng/ml Test 04/24/17 05:25 04/24/17 05:26 White Blood Count 5.58 K/uL Red Blood Count 4.33 M/uL Hemoglobin 14.2 g/dL Hematocrit 41.3 % Mean Corpuscular Volume 95.4 fL Mean Corpuscular Hemoglobin 32.8 pg Mean Corpuscular Hemoglobin Concent 34.4 g/dl RDW Standard Deviation 49.8 fL RDW Coefficient of Variation 14.2 % Platelet Count 56 K/uL Mean Platelet Volume 10.2 fL Sodium Level 138 mmol/L Potassium Level 3.0 mmol/L Chloride Level 103 mmol/L Carbon Dioxide Level 26 mmol/L Anion Gap 9.0 mmol/L Blood Urea Nitrogen 3 mg/dl Creatinine 0.70 mg/dl Est Creatinine Clear Calc Drug Dose 146.3 ml/min Estimated GFR () 123.1 Estimated GFR (Non- 106.2 BUN/Creatinine Ratio 4.5 Random Glucose 127 mg/dl Calcium Level 8.2 mg/dl Phosphorus Level 2.5 mg/dl Magnesium Level 2.3 mg/dl Total Bilirubin 1.4 mg/dl Aspartate Amino Transf (AST/SGOT) 41 U/L Alanine Aminotransferase (ALT/SGPT) 46 U/L Alkaline Phosphatase 135 U/L Total Creatine Kinase 356 U/L Creatine Kinase MB 4.6 ng/ml Creatine Kinase MB Ratio 1.3 Troponin I < 0.015 ng/ml Total Protein 7.1 gm/dl Albumin 3.4 gm/dl Globulin 3.7 gm/dl Albumin/Globulin Ratio 0.9 Lipase 98 U/L Resident Tracking Resident Involvement: Resident Care Provided Care Provided: Adult [facility] Medicine
--- NOTE | 2017-04-24 11:23 | Progress Note ---
Subjective Date of Service: Apr 24, 2017. Subjective Pt evaluation today including: conversation w/ patient, physical exam, lab review, review of studies, review of inpatient medication list Saw/examined the patient in room 105 He is seated in a chair; reading a newspaper +anxious, +tremulous Problem List Medical Problems: (1) Alcohol withdrawal Status: Acute (2) Alcohol withdrawal Status: Acute (3) Dehydration Status: Acute (4) DTs (delirium tremens) Status: Acute (5) Multiple contusions Status: Acute (6) Seizure Status: Acute (7) Thrombocytopenia Status: Chronic (8) Tongue laceration Status: Acute (9) Tremor Status: Acute Review of Systems Constitutional: No fever, No chills Respiratory: No cough, No sputum, No wheezing, No shortness of breath, No dyspnea on exertion Cardiac: No chest pain, No edema, No palpitations Abdomen: No pain, No nausea, No vomiting, No diarrhea Musculoskeletal: No joint pain Psychiatric: No depression symptoms, No anxiety, No insomnia, No substance abuse (denies) Heme: No abnormal bleeding/bruising Medications Current Inpatient Medications Medications (Trade) Dose Ordered Sig/Rica Route Start Time Stop Time Status Last Admin Dose Admin Lorazepam (Ativan Tab) PRN Dosing -Active Protocol UD PRN PO 04/23/17 14:45 05/23/17 14:44 04/24/17 10:17 1 MG Nicotine (Nicoderm Cq 21MG Patch) 1 patch QAM TD 04/24/17 09:00 05/24/17 08:59 04/24/17 07:54 1 PATCH Miscellaneous (Remove Nicoderm Patch) 1 ea HS N/A 04/24/17 21:00 05/24/17 20:59 Diltiazem HCl (Cardizem Cd Cap) 120 mg DAILY PO 04/24/17 09:00 05/24/17 08:59 04/24/17 07:55 120 MG Divalproex Sodium (Depakote Delay Rel Tab) 125 mg TID PO 04/23/17 21:00 05/23/17 20:59 04/24/17 07:54 125 MG Divalproex Sodium (Depakote Delay Rel Tab) 500 mg TID PO 04/23/17 21:00 05/23/17 20:59 04/24/17 07:54 500 MG Ondansetron HCl (Zofran Inj) 4 mg Q6H PRN IV 04/23/17 15:15 05/23/17 15:14 Amiodarone HCl (Cordarone Tab) 200 mg BID PO 04/23/17 21:00 05/24/17 08:59 04/24/17 07:53 200 MG Gabapentin (Neurontin Tab) 600 mg Q8H PO 04/24/17 14:00 04/25/17 06:01 Gabapentin (Neurontin Tab) 600 mg Q12H PO 04/24/17 20:00 04/25/17 08:01 Gabapentin (Neurontin Tab) 600 mg Q24H PO 04/26/17 08:00 04/26/17 08:01 Potassium Chloride 10 meq/ Prmx 100 ml @ 100 mls/hr Q1H IV 04/24/17 08:00 04/24/17 11:59 04/24/17 10:10 100 MLS/HR Multivitamins 10 ml/Thiamine HCl 100 mg/Folic Acid 1 mg/Sodium Chloride 1,011.2 ml @ 100 mls/ hr DAILY IV 04/24/17 09:00 04/26/17 08:59 Objective Vital Signs Date Time Temp Pulse Resp B/P (MAP) Pulse Ox O2 Delivery O2 Flow Rate FiO2 04/24/17 09:30 107 97 04/24/17 09:00 114 118/88 (98) 97 04/24/17 08:30 100 99 04/24/17 08:01 37.5 90 118/88 (98) 96 Room Air 04/24/17 08:00 89 96 04/24/17 07:52 98 146/86 (106) 97 04/24/17 07:45 Room Air 04/24/17 07:30 119 98 04/24/17 07:01 109 182/166 (171) 98 04/24/17 07:00 111 98 04/24/17 05:15 91 153/84 (107) 95 Room Air 04/24/17 05:01 117 150/102 (118) 83 04/24/17 04:01 37.5 80 18 151/89 (109) 91 Room Air 04/24/17 04:00 Room Air 04/24/17 03:01 78 143/83 (103) 93 04/24/17 02:01 89 20 153/96 (115) 95 Room Air 04/24/17 01:01 82 133/75 (94) 94 Room Air 04/24/17 00:01 37.3 85 138/87 (104) 94 Room Air 04/23/17 23:59 Room Air 04/23/17 23:01 78 134/80 (98) 94 Room Air 04/23/17 22:00 79 20 115/69 (84) 93 Room Air 04/23/17 20:00 36.9 78 20 133/71 (91) 95 Room Air 04/23/17 20:00 95 Room Air 04/23/17 18:00 89 20 122/73 (89) 95 Room Air 04/23/17 16:14 36.8 101 20 152/86 97 Room Air 04/23/17 15:39 105 147/95 04/23/17 14:17 88 28 96 04/23/17 14:01 159/95 04/23/17 13:47 91 33 94 04/23/17 13:17 74 92 04/23/17 13:01 189/100 04/23/17 12:47 93 19 97 04/23/17 12:31 161/93 04/23/17 12:30 109 04/23/17 12:29 37.1 109 18 165/111 99 Room Air 04/23/17 12:29 99 Room Air 04/23/17 12:26 165/111 Physical Exam General Appearance: no apparent distress, + pertinent finding (+tremulousness) Respiratory/Chest: lungs clear, normal breath sounds, no respiratory distress, no accessory muscle use Cardiovascular: no edema, no murmur, + tachycardia Abdomen: normal bowel sounds, non tender, soft Extremities: non-tender, normal inspection, no pedal edema Neurologic/Psychiatric: no motor/sensory deficits, alert, + depressed affect Laboratory Results Last 24 Hours Test 04/23/17 12:44 04/23/17 12:58 04/23/17 14:54 04/23/17 15:15 White Blood Count 4.63 K/uL Red Blood Count 4.47 M/uL Hemoglobin 14.7 g/dL Hematocrit 41.6 % Mean Corpuscular Volume 93.1 fL Mean Corpuscular Hemoglobin 32.9 pg Mean Corpuscular Hemoglobin Concent 35.3 g/dl Platelet Count 69 K/uL Mean Platelet Volume 9.4 fL Neutrophils (%) (Auto) 83.2 % Lymphocytes (%) (Auto) 7.3 % Monocytes (%) (Auto) 8.9 % Eosinophils (%) (Auto) 0.0 % Basophils (%) (Auto) 0.2 % Neutrophils # (Auto) 3.85 K/uL Lymphocytes # (Auto) 0.34 K/uL Monocytes # (Auto) 0.41 K/uL Eosinophils # (Auto) 0.00 K/uL Basophils # (Auto) 0.01 K/uL RDW Standard Deviation 48.8 fL RDW Coefficient of Variation 14.4 % Immature Granulocyte % (Auto) 0.4 % Immature Granulocyte # (Auto) 0.02 K/uL Platelet Estimate DECREASED Sodium Level 137 mmol/L 135 mmol/L Potassium Level 3.6 mmol/L 3.6 mmol/L Chloride Level 99 mmol/L 102 mmol/L Carbon Dioxide Level 27 mmol/L 25 mmol/L Anion Gap 11.0 mmol/L 8.0 mmol/L Blood Urea Nitrogen 6 mg/dl 5 mg/dl Creatinine 0.72 mg/dl 0.55 mg/dl Est Creatinine Clear Calc Drug Dose 142.3 ml/min 186.2 ml/min Estimated GFR () 121.7 136.0 Estimated GFR (Non- 105.0 117.3 BUN/Creatinine Ratio 8.0 9.2 Random Glucose 112 mg/dl 89 mg/dl Calcium Level 9.0 mg/dl 8.0 mg/dl Magnesium Level 2.4 mg/dl Total Bilirubin 0.8 mg/dl 0.8 mg/dl Direct Bilirubin 0.3 mg/dl Aspartate Amino Transf (AST/SGOT) 64 U/L 52 U/L Alanine Aminotransferase (ALT/SGPT) 60 U/L 54 U/L Alkaline Phosphatase 161 U/L 139 U/L Troponin I < 0.015 ng/ml < 0.015 ng/ml Total Protein 7.8 gm/dl 7.1 gm/dl Albumin 4.1 gm/dl 3.6 gm/dl Ethyl Alcohol mg/dL < 3.0 mg/dl Hepatitis C Antibody Screen NEG Bedside Lactic Acid Venous 3.17 mmol/L Creatine Kinase MB Ratio 2.5 Prothrombin Time 10.9 SECONDS Prothromb Time International Ratio 1.0 Lactic Acid Level 1.1 mmol/L Phosphorus Level 2.5 mg/dl Total Creatine Kinase 513 U/L Creatine Kinase MB 12.8 ng/ml Globulin 3.5 gm/dl Albumin/Globulin Ratio 1.0 Thyroid Stimulating Hormone (TSH) 0.423 uIu/ml Valproic Acid (Depakene) Level < 3 mcg/ml Test 04/23/17 18:58 04/23/17 20:07 04/23/17 21:00 04/24/17 04:44 Lactic Acid Level 0.7 mmol/L Bedside Glucose 102 mg/dl Total Creatine Kinase 439 U/L Creatine Kinase MB 8.0 ng/ml Creatine Kinase MB Ratio 1.8 Troponin I < 0.015 ng/ml Test 04/24/17 05:25 04/24/17 05:26 White Blood Count 5.58 K/uL Red Blood Count 4.33 M/uL Hemoglobin 14.2 g/dL Hematocrit 41.3 % Mean Corpuscular Volume 95.4 fL Mean Corpuscular Hemoglobin 32.8 pg Mean Corpuscular Hemoglobin Concent 34.4 g/dl RDW Standard Deviation 49.8 fL RDW Coefficient of Variation 14.2 % Platelet Count 56 K/uL Mean Platelet Volume 10.2 fL Sodium Level 138 mmol/L Potassium Level 3.0 mmol/L Chloride Level 103 mmol/L Carbon Dioxide Level 26 mmol/L Anion Gap 9.0 mmol/L Blood Urea Nitrogen 3 mg/dl Creatinine 0.70 mg/dl Est Creatinine Clear Calc Drug Dose 146.3 ml/min Estimated GFR () 123.1 Estimated GFR (Non- 106.2 BUN/Creatinine Ratio 4.5 Random Glucose 127 mg/dl Calcium Level 8.2 mg/dl Phosphorus Level 2.5 mg/dl Magnesium Level 2.3 mg/dl Total Bilirubin 1.4 mg/dl Aspartate Amino Transf (AST/SGOT) 41 U/L Alanine Aminotransferase (ALT/SGPT) 46 U/L Alkaline Phosphatase 135 U/L Total Creatine Kinase 356 U/L Creatine Kinase MB 4.6 ng/ml Creatine Kinase MB Ratio 1.3 Troponin I < 0.015 ng/ml Total Protein 7.1 gm/dl Albumin 3.4 gm/dl Globulin 3.7 gm/dl Albumin/Globulin Ratio 0.9 Lipase 98 U/L Assessment and Plan This is a 56 year old male with a PMH of alcohol dependence, hx. of withdrawal/ delirium tremens requiring intubation, hx. of paroxysmal atrial fibrillation, hx. of seizure disorder presents to the ER after a seizure episode. Seizure Hx. of Delirium Tremens and Seizure Disorder 04/24 monitored in the ICU doing well currently EtOH protocol in place with tapering Gabapentin dose and PRN Ativan neurology consult pending replace K and monitor electrolytes 04/23 as per records, patient has both seizure disorder for which he is on Depakote He had an episode of DTs in October 2016 requiring intubation Mg and K wnl +lactic acidosis likely secondary to seizure will add banana bag daily (thiamine, folic acid, multivitamin, Mg) alcohol withdrawal protocol with gabapentin and Ativan PRN check TSH, Phos, CPK trend cardiac enzymes continue Depakote at the dose he was discharged on with a Depakote level pending neurology and electronic drafter consulted for further input mental health consultation PT/OT + discharge planning evaluation Paroxysmal A. Fib during previous admission here in [facility] in October 2016, patient was in A. Fib with RVR actually has been noncompliant with his Cardizem and amiodarone medications will restart them here as he is agitated and in tachycardia currently in sinus rhythm Thrombocytopenia patient with chronic thrombocytopenia, likely due to alcohol use will monitor platelets and avoid medical DVT prophylaxis DVT ppx SCDs FULL CODE
[2017-04-24] MEDS: MULTI-VITAMIN INFUSION INJ 10 ML, THIAMINE HCL INJ 100 MG, FoLIC ACID INJ 1 MG in SODIU... IV SCH (12:18)
[2017-04-24] MEDS ORDERED: LORAZEPAM 2 MG/ML 1 ML VIAL ONE ×2 (12:59→15:03)
[2017-04-24] MEDS: GABAPENTIN 600MG Q8H DOSE PO SCH ×2 (13:02→20:53)
[2017-04-24] MEDS ORDERED: NURSING VERBAL MED ORDER ONE (13:15)
[2017-04-24] MEDS: DexMEDEtomidine HCL IV 200 MCG in SODIUM CHLORIDE 0.9% 50ML 48 ML IV PRN ×3 (14:24→17:41)
--- NOTE | 2017-04-24 14:34 | Neurology Progress Notes ---
Neurology Progress Note Date of Service Apr 24, 2017. Lucrecia Davidson is a 56 year old male with PMH : EtOH abuse, tobacco abuse, seizure disorder, thrombocytopenia and paroxysmal A fib who presents after 2 seizures since yesterday. Has a history of alcohol abuse over the past 40 years but states that he has been cutting use down to 3 6-packs a week over the past few months. He last drank was 3 days ago. The first seizure-like episode was unwitnessed last night and only lasted for a few minutes. He had more severe episode of body shakes with associated throbbing headache that lasted about an hour. He experienced urinary incontinence and bit his tongue. His girlfriend came home from work to check on him and witnessed the event. he had nausea and vomiting on his way to the ED by EMS. Denies auditory, visual hallucinations. Denies any fever, chills, confusion, CP, palpitations, SOB, hematemesis, dysuria , diarrhea, LE swelling. Has a significant bruise on his L forearm from a fall 4 days ago.The seizure are usually with alcohol withdrawal. Was admitted in October- November of this year for management of alcohol withdrawal that required intubation. Was discharged on Depakote, amlodipine and diltiazem but has not been taking these lately. Today he is somewhat confused and impulsive along with semi cooperative. Objective Date Time Temp Pulse Resp B/P (MAP) Pulse Ox O2 Delivery O2 Flow Rate FiO2 04/24/17 14:00 94 04/24/17 12:56 133/84 (100) 04/24/17 12:53 103 112/95 (101) 98 04/24/17 12:00 36.8 105 98 Room Air 04/24/17 11:10 Room Air 04/24/17 10:00 110 98 04/24/17 09:30 107 97 04/24/17 09:00 114 118/88 (98) 97 04/24/17 08:30 100 99 04/24/17 08:01 37.5 90 118/88 (98) 96 Room Air 04/24/17 08:00 Room Air 04/24/17 08:00 89 96 04/24/17 07:52 98 146/86 (106) 97 04/24/17 07:45 Room Air 04/24/17 07:30 119 98 04/24/17 07:01 109 182/166 (171) 98 04/24/17 07:00 111 98 04/24/17 05:15 91 153/84 (107) 95 Room Air 04/24/17 05:01 117 150/102 (118) 83 04/24/17 04:01 37.5 80 18 151/89 (109) 91 Room Air 04/24/17 04:00 Room Air 04/24/17 03:01 78 143/83 (103) 93 04/24/17 02:01 89 20 153/96 (115) 95 Room Air 04/24/17 01:01 82 133/75 (94) 94 Room Air 04/24/17 00:01 37.3 85 138/87 (104) 94 Room Air 04/23/17 23:59 Room Air 04/23/17 23:01 78 134/80 (98) 94 Room Air 04/23/17 22:00 79 20 115/69 (84) 93 Room Air 04/23/17 20:00 36.9 78 20 133/71 (91) 95 Room Air 04/23/17 20:00 95 Room Air 04/23/17 18:00 89 20 122/73 (89) 95 Room Air 04/23/17 16:14 36.8 101 20 152/86 97 Room Air 04/23/17 15:39 105 147/95 04/23/17 14:17 88 28 96 Last 24 Hours Test 04/23/17 14:54 04/23/17 15:15 04/23/17 18:58 04/23/17 20:07 Creatine Kinase MB Ratio 2.5 Prothrombin Time 10.9 SECONDS Prothromb Time International Ratio 1.0 Sodium Level 135 mmol/L Potassium Level 3.6 mmol/L Chloride Level 102 mmol/L Carbon Dioxide Level 25 mmol/L Anion Gap 8.0 mmol/L Blood Urea Nitrogen 5 mg/dl Creatinine 0.55 mg/dl Est Creatinine Clear Calc Drug Dose 186.2 ml/min Estimated GFR () 136.0 Estimated GFR (Non- 117.3 BUN/Creatinine Ratio 9.2 Random Glucose 89 mg/dl Lactic Acid Level 1.1 mmol/L 0.7 mmol/L Calcium Level 8.0 mg/dl Phosphorus Level 2.5 mg/dl Total Bilirubin 0.8 mg/dl Aspartate Amino Transf (AST/SGOT) 52 U/L Alanine Aminotransferase (ALT/SGPT) 54 U/L Alkaline Phosphatase 139 U/L Total Creatine Kinase 513 U/L Creatine Kinase MB 12.8 ng/ml Troponin I < 0.015 ng/ml Total Protein 7.1 gm/dl Albumin 3.6 gm/dl Globulin 3.5 gm/dl Albumin/Globulin Ratio 1.0 Thyroid Stimulating Hormone (TSH) 0.423 uIu/ml Valproic Acid (Depakene) Level < 3 mcg/ml Bedside Glucose 102 mg/dl Test 04/23/17 21:00 04/24/17 04:44 04/24/17 05:25 04/24/17 05:26 Total Creatine Kinase 439 U/L 356 U/L Creatine Kinase MB 8.0 ng/ml 4.6 ng/ml Creatine Kinase MB Ratio 1.8 1.3 Troponin I < 0.015 ng/ml < 0.015 ng/ml White Blood Count 5.58 K/uL Red Blood Count 4.33 M/uL Hemoglobin 14.2 g/dL Hematocrit 41.3 % Mean Corpuscular Volume 95.4 fL Mean Corpuscular Hemoglobin 32.8 pg Mean Corpuscular Hemoglobin Concent 34.4 g/dl RDW Standard Deviation 49.8 fL RDW Coefficient of Variation 14.2 % Platelet Count 56 K/uL Mean Platelet Volume 10.2 fL Sodium Level 138 mmol/L Potassium Level 3.0 mmol/L Chloride Level 103 mmol/L Carbon Dioxide Level 26 mmol/L Anion Gap 9.0 mmol/L Blood Urea Nitrogen 3 mg/dl Creatinine 0.70 mg/dl Est Creatinine Clear Calc Drug Dose 146.3 ml/min Estimated GFR () 123.1 Estimated GFR (Non- 106.2 BUN/Creatinine Ratio 4.5 Random Glucose 127 mg/dl Calcium Level 8.2 mg/dl Phosphorus Level 2.5 mg/dl Magnesium Level 2.3 mg/dl Total Bilirubin 1.4 mg/dl Aspartate Amino Transf (AST/SGOT) 41 U/L Alanine Aminotransferase (ALT/SGPT) 46 U/L Alkaline Phosphatase 135 U/L Total Protein 7.1 gm/dl Albumin 3.4 gm/dl Globulin 3.7 gm/dl Albumin/Globulin Ratio 0.9 Lipase 98 U/L Imaging: CT head- No acute intracranial findings Exam: Physical Exam: Constitutional: appearance nourished, unkept Ears, Nose, Mouth and Throat: mucous membranes moist, no injection and skin normal, eyes normal Cardiovascular: normal S-1 and S-2 and regular rate and rhythm Respiratory: coarse breath sounds Musculoskeletal: no peripheral edema and good distal pulses Skin: large hematoma on left fore arm Eyes: extraocular muscles intact (EOMI) and pupils equal, round and reactive to light (PERRL) NEUROLOGIC EXAMINATION: Mental status: Alert and interactive Oriented [facility], 2017, [facility] president Oriented to person Speech fluent with no evidence of aphasia Cranial Nerves smile eye brow raise symmetric Coordination: finger to nose with bilateral reaching tremor, R>L Gait/Stance: Posture sitting in bedside chair dizzy with standing Motor: Negative for pronator drift of out stretched arms with eyes closed. 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 5/5 hip flex 5/5 bilaterally Current Inpatient Medications Medications (Trade) Dose Ordered Sig/Rica Route Start Time Stop Time Status Last Admin Dose Admin Lorazepam (Ativan Tab) PRN Dosing -Active Protocol UD PRN PO 04/23/17 14:45 05/23/17 14:44 04/24/17 10:17 1 MG Nicotine (Nicoderm Cq 21MG Patch) 1 patch QAM TD 04/24/17 09:00 05/24/17 08:59 04/24/17 07:54 1 PATCH Miscellaneous (Remove Nicoderm Patch) 1 ea HS N/A 04/24/17 21:00 05/24/17 20:59 Diltiazem HCl (Cardizem Cd Cap) 120 mg DAILY PO 04/24/17 09:00 05/24/17 08:59 04/24/17 07:55 120 MG Divalproex Sodium (Depakote Delay Rel Tab) 125 mg TID PO 04/23/17 21:00 05/23/17 20:59 04/24/17 13:01 125 MG Divalproex Sodium (Depakote Delay Rel Tab) 500 mg TID PO 04/23/17 21:00 05/23/17 20:59 04/24/17 13:01 500 MG Ondansetron HCl (Zofran Inj) 4 mg Q6H PRN IV 04/23/17 15:15 05/23/17 15:14 Amiodarone HCl (Cordarone Tab) 200 mg BID PO 04/23/17 21:00 12/14/17 08:59 04/24/17 07:53 200 MG Gabapentin (Neurontin Tab) 600 mg Q8H PO 04/24/17 14:00 04/25/17 06:01 04/24/17 13:02 600 MG Gabapentin (Neurontin Tab) 600 mg Q12H PO 04/24/17 20:00 04/25/17 08:01 Gabapentin (Neurontin Tab) 600 mg Q24H PO 04/26/17 08:00 04/26/17 08:01 Multivitamins 10 ml/Thiamine HCl 100 mg/Folic Acid 1 mg/Sodium Chloride 1,011.2 ml @ 100 mls/ hr DAILY IV 04/24/17 09:00 04/26/17 08:59 04/24/17 12:18 100 MLS/HR Dexmedetomidine HCl 200 mcg/ Sodium Chloride 50 ml @ 0 mls/hr Q0M PRN IV 04/24/17 13:54 04/28/17 13:53 Impression 56 year old male hx EtOH abuse and seizure disorder Plan 1. continue lyte supplement 2. depakote 625 mg TID - it is unclear he has seizure disorder or he has seizure with alcohol withdrawal 3. EEG- slowing no epileptic spikes 4. fall precautions 5. very compulsive will need supervision 6. depakote was not taken as outpatient -will need therapeutic level prior to discharge 7. MRI -in December no need to repeat at this time 8. depakote level in approx 5 days will need to be therapeutic I have seen and discussed above patient with Dr Pascual Choi, neurology Patient now getting more agitated as the light of the day is waning and a protocol using phenobarbital isn high doses is being initiated by the icu staff eeg normal. exam difficult he is a bit dystaxic and very tangential and digressive and now disoriented will see tomorrow but will likely soon sign off Will need to check depakote level at some point but this may be unreliable due to the presence of multiple other aeds here ie the phenobarbital and possibly the neurontin although interactions with it and other aeds are usually minimal Pascual Choi MD
--- NOTE | 2017-04-24 15:13 | ELECTROENCEPHALOGRAPH REPORT ---
REQUESTING DOCTOR: Pascual Choi MD CLINICAL DIAGNOSIS: Alcohol withdrawal seizures, question underlying potentially epileptogenic activity. ELECTROENCEPHALOGRAM DIAGNOSIS: Essentially normal during wakefulness. DESCRIPTION OF TRACING: This EEG was done as a bedside recording and is of reasonable technical quality allowing for quite a bit of muscle movement artifacts on this patient who is less than ideally cooperative at times. Photic stimulation was performed. Hyperventilation was not. Drowsiness and light sleep were not recorded. Video analysis was performed does document quite a bit of head movement and other muscular activity which is reflected in the EEG recording as artifacts. Under these conditions, there is evidence for what appears to be a relatively normal background rhythm in the alpha range of up to 9 Hz of maximum frequency and 30 microvolts of maximum amplitude. This is maximum posterior head regions bilaterally symmetrical. Polymorphic mid frequency theta activity is seen over all head regions without clear focal or regional predominance. Anterior head region maximum bilaterally symmetrical low voltage fast activity is present but is difficult at times to dissect out from frontal muscle artifact. Photic stimulation provoked some modest driving response. No photomyogenic or photoparoxysmal components are noted. At no time during the waking tracing is there evidence for potentially epileptogenic activity in the form of polyspike or spike wave bursts, focal sharp waves or focal spikes. INTERPRETATION: This EEG is essentially normal during wakefulness allowing for muscle movement artifacts and reveals no evidence for significant focal or generalized encephalopathy. No evidence for potentially epileptogenic activity.
[2017-04-24] MEDS ORDERED: PHENOBARBITAL SOD 65 MG/ML VIAL IV STA ×2 (15:17→16:40)
[2017-04-24] MEDS ORDERED: PHENOBARBITAL SOD IV STA ×2 (15:22→15:24)
[2017-04-24] MEDS ORDERED: NSS IV STA (15:22)
[2017-04-24] MEDS ORDERED: SODIUM CHLORIDE 0.9% IV STA (15:24)
[2017-04-24] MEDS ORDERED: SODIUM CHLORIDE 0.9% IV SCH (15:30)
[2017-04-24] MEDS ORDERED: PHENOBARBITAL SOD IV SCH (15:30)
[2017-04-24] MEDS ORDERED: PHENOBARBITAL SOD IV ONE (17:00)
[2017-04-24] MEDS ORDERED: SODIUM CHLORIDE 0.9% IV ONE (17:00)
[2017-04-24] MEDS ORDERED: HydrALAZINE HCL 20 MG/ML VIAL IV. PRN (18:45)
[2017-04-24] MEDS: DexMEDEtomidine HCL IV 400 MCG in SODIUM CHLORIDE 0.9% 100ML 96 ML IV PRN ×2 (19:57→22:37)
[2017-04-24] MEDS ORDERED: GABAPENTIN 600MG Q12H DOSE PO SCH (20:00)
[2017-04-25] VITALS (16 sets, daily range): BP systolic 69–175; BP diastolic 47–112; PULSE 58–75; TEMP 36.4–36.9; O2SAT 92–97
[2017-04-25] MEDS: DexMEDEtomidine HCL IV 400 MCG in SODIUM CHLORIDE 0.9% 100ML 96 ML IV PRN ×7 (02:09→22:06)
[2017-04-25] MEDS ORDERED: LORAZEPAM 2 MG/ML 1 ML VIAL IV STA (06:01)
[2017-04-25 06:29] LABS: HEMATOCRIT 43.4 % (42-52); MEAN CELL VOLUME 93.3 fL (80-100); MEAN CORPUSCULAR HGB CONC 36.4 g/dl (32-36); RED BLOOD COUNT 4.65 M/uL (4.7-6.1); WHITE BLOOD COUNT 6.11 K/uL (4.8-10.8)
[2017-04-25] MEDS: GABAPENTIN 600MG Q8H DOSE PO SCH (06:32)
[2017-04-25 06:37] LABS: MEAN PLATELET VOLUME 10.9 fL (7.4-10.4); PLATELET COUNT 56 K/uL (130-400)
[2017-04-25 06:55] LABS: BUN/CREATININE RATIO 9.8 (10-20); CALCIUM 8.8 mg/dl (8.5-10.1); CREATININE 0.6 mg/dl (0.60-1.40); MAGNESIUM 2.2 mg/dl (1.8-2.4); POTASSIUM 3.4 mmol/L (3.5-5.1)
[2017-04-25] MEDS: AMIODARONE 200 MG TAB PO SCH ×2 (07:33→21:29)
[2017-04-25] MEDS: DIVALPROEX SODIUM 500 MG DELAY RELEASE TAB PO SCH ×3 (07:33→21:28)
[2017-04-25] MEDS: DILTIAZEM HCL 120 MG CAPCR PO SCH (07:34)
[2017-04-25] MEDS: NICOTINE 21 MG/24 HR TDSY TD SCH (07:34)
[2017-04-25] MEDS: DIVALPROEX DELAY REL TAB 125 MG TABEC PO SCH ×3 (07:34→21:29)
[2017-04-25] MEDS ORDERED: PHENOBARBITAL SOD 65 MG/ML VIAL IV PRN (08:15)
[2017-04-25] MEDS: MULTI-VITAMIN INFUSION INJ 10 ML, THIAMINE HCL INJ 100 MG, FoLIC ACID INJ 1 MG in SODIU... IV SCH (08:57)
[2017-04-25] MEDS ORDERED: SODIUM CHLORIDE 0.9% IV PRN (09:00)
[2017-04-25] MEDS ORDERED: PHENOBARBITAL SOD IV PRN (09:00)
[2017-04-25] MEDS: POTASSIUM CITRATE 10 MEQ TAB PO SCH ×2 (10:55→21:29)
[2017-04-25] MEDS: PHENOBARBITAL 32.4 MG TAB PO SCH ×4 (10:55→21:31)
--- NOTE | 2017-04-25 11:31 | Critical Care Progress Note ---
Critical Care Progress Note Date of Service Apr 25, 2017. ICU Day ICU Day Number: [address] Ospina Subjective Patient was up all night talking and was agitated, wanting to go for walks. Asleep this morning and snoring. Did not wake patient up. Will re-asses in the afternoon to attain ROS. Objective GENERAL: Lying in bed, no acute distress, non-toxic HEAD: NC/AT EYES: Normal sclera and conjunctiva OROPHARYNX: No perioral cyanosis. No exudate, no erythema. Lips, buccal mucosa normal. Tongue laceration on left side, s/p suture repair. Mucous membranes are moist. NECK: Supple, no adenopathy, non-tender LUNGS: Normal chest wall mechanics. CTAB with good air entry. No rales, crackles , or wheezes HEART: RRR, S1 and S2 normal, no murmurs appreciated ABDOMEN: Soft, non-distended, normo-active bowel sounds, no masses, no rebound or guarding. SKIN: Warm, pink, dry. No erythema, rashes. Bruising on arm and torso from previous falls EXTREMITIES: Grossly normal. No pitting edema. Calves supple. NEURO: Alert. No focal deficits. Cranial nerves II-XII grossly intact PSYCH: Agitated mood. Rapid speech. Raising volume with frustration. As per nursing evaluation. Current SOFA Score SOFA Score Response (Comments) Value Platelets (x10) < 100 2 Bilirubin (mg/dL) 1.2 - 1.9 1 Do Coma Score 15 0 Level of Hypotension No Hypotension 0 Creatinine (mg/dL) < 1.2 0 Total 3 Assessment & Plan Reason critically ill: 56 year old male presents with seizure-like activity, on a background of seizure disorder and intermittent alcohol cessation. Neuro - CAM-ICU negative. - AWSS protocol: Ativan, gabapentin. Continue to monitor for changes in RASS/ evidence of delirium tremens - PO Phenobarbital taper regimen: 60mg QID x1day, 60mg TID x1day, 60mg BID x1day. 30mg BID x1day. IV phenobarbital PRN breakthrough agitation: 130mg if moderately agitated /260mg if severely agitated - Continue Divalproex - Falls precaution CV - Vitals: HR 80-120, SBP 120-160. Hemodynamically stable - H/o paroxysmal a.fib: restart previous home meds: diltiazem, amiodarone - Continue to monitor on telemetry - EKG PRN chest pain Resp - Saturating well on RA. Oxygen support if needed - Advised for smoking/tobacco chewing cessation. Nicotine patch ordered GI/Nutrition - Diet: Regular diet - Zofran PRN nausea Renal/ - Banana bag x 3 days total - Electrolytes show low K+ - replete and trend BMP - Corley not indicated, patient voiding ID - Antibiotics not warranted. No leukocytosis, afebrile Endo - No h/o DM. Glucose monitoring as per ICU protocol. - Sugars currently WNL Heme - H/H stable. Coags WNL. Platelets low - monitor for signs of bleeding/bruising - Trend CBC MSK/Skin - OT/PT Access/Line - Peripheral IV VTE Prophylaxis - SCDs, TEDs - Not a good candidate for chemical anticoagulation, since ecchymosis from multiple falls already Resident Physician Supervision Note: I was present with Dr. Marie during the history and exam. I discussed the case with the resident and agree with the findings and plan as documented in the note. Any exceptions or clarifications are listed here: Patient with chronic alcohol abuse, prior withdrawal seizures, known to us from long hospital stay with intubation, came to ED after suspected seizures, associated with tongue biting requiring sutures. States that he quit drinking few days ago. Fell few days ago sustaining a bruise on the left arm and left flank. Now in alcohol withdrawal, tremulous, occasionally agitated. Not taking his meds (Depakote, amiodarone) Problems: Delirium tremens Alcohol withdrawal seizure Paroxysmal atrial fibrillation Plan: Started on Ativan and gabapentin per protocol. Yesterday in late afternoon he became agitated, required escalating doses of Precedex, Ativan. Eventually he responded to phenobarbital injections. Questionable brief seizure episode this AM, no post-ictal state. Continue Depakote. Start standing PO phenobarbital, continue prn IV phenobarbital Thiamine, folate, MVI in "banana bag" Continue amiodarone Not an anticoagulation candidate in my opinion, prone to traumas (already has ecchymosis from falling) Critical care time spent with the patient, reviewing the chart, greater than 30 minutes Continue ICU monitoring Documented By: Morales Ospina MD Consults & Procedures Consultants: Critical care Mental health Neurology Procedures: None Data Medications: Current Inpatient Medications Medications (Trade) Dose Ordered Sig/Rica Route Start Time Stop Time Status Last Admin Dose Admin Lorazepam (Ativan Tab) PRN Dosing -Active Protocol UD PRN PO 04/23/17 14:45 05/23/17 14:44 04/24/17 10:17 1 MG Nicotine (Nicoderm Cq 21MG Patch) 1 patch QAM TD 04/24/17 09:00 05/24/17 08:59 04/25/17 07:34 1 PATCH Miscellaneous (Remove Nicoderm Patch) 1 ea HS N/A 04/24/17 21:00 05/24/17 20:59 04/24/17 19:58 1 EA Diltiazem HCl (Cardizem Cd Cap) 120 mg DAILY PO 04/24/17 09:00 05/24/17 08:59 04/25/17 07:34 120 MG Divalproex Sodium (Depakote Delay Rel Tab) 125 mg TID PO 04/23/17 21:00 05/23/17 20:59 04/25/17 07:34 125 MG Divalproex Sodium (Depakote Delay Rel Tab) 500 mg TID PO 04/23/17 21:00 05/23/17 20:59 04/25/17 07:33 500 MG Ondansetron HCl (Zofran Inj) 4 mg Q6H PRN IV 04/23/17 15:15 05/23/17 15:14 Amiodarone HCl (Cordarone Tab) 200 mg BID PO 04/23/17 21:00 05/24/17 08:59 04/25/17 07:33 200 MG Multivitamins 10 ml/Thiamine HCl 100 mg/Folic Acid 1 mg/Sodium Chloride 1,011.2 ml @ 100 mls/ hr DAILY IV 04/24/17 09:00 04/26/17 08:59 04/24/17 12:18 100 MLS/HR Dexmedetomidine HCl 400 mcg/ Sodium Chloride 100 ml @ 0 mls/hr Q0M PRN IV 04/24/17 18:45 04/28/17 13:53 04/25/17 08:32 32 MLS/HR Hydralazine HCl (HydrALAZINE INJ) 20 mg Q4H PRN IV. 04/24/17 18:45 05/24/17 18:44 Gabapentin (Neurontin Tab) 600 mg Q12H PO 04/25/17 18:00 04/26/17 06:01 Gabapentin (Neurontin Tab) 600 mg Q24H PO 04/27/17 08:00 04/27/17 08:01 Phenobarbital (Phenobarbital Tab) 60 mg QID PO 04/25/17 09:00 05/25/17 08:59 UNV Phenobarbital Sodium (Phenobarbital Sod Inj) 130 mg Q2H PRN IV 04/25/17 08:15 05/25/17 08:14 UNV Potassium Citrate (Urocit-K Tab) 40 meq BID PO 04/25/17 09:00 04/25/17 21:01 UNV Vital Signs: Date Time Temp Pulse Resp B/P (MAP) Pulse Ox O2 Delivery O2 Flow Rate FiO2 04/25/17 08:00 96 Room Air 04/25/17 08:00 36.4 75 18 127/79 (95) 96 Room Air 04/25/17 06:00 67 18 112/86 (95) 94 Room Air 04/25/17 04:00 36.9 64 16 170/98 (122) 95 Room Air 04/25/17 04:00 95 Room Air 04/25/17 02:00 66 18 143/87 (105) 95 Room Air 04/25/17 00:00 96 Room Air 04/25/17 00:00 36.7 61 18 157/101 (119) 96 Room Air 04/24/17 22:26 60 18 173/98 (123) 96 04/24/17 21:00 61 16 145/89 (107) 97 04/24/17 20:00 36.9 63 18 144/88 (106) 98 Room Air 04/24/17 20:00 Room Air 04/24/17 16:00 Room Air 04/24/17 14:00 94 04/24/17 12:56 133/84 (100) 04/24/17 12:53 103 112/95 (101) 98 04/24/17 12:00 36.8 105 98 Room Air 04/24/17 11:10 Room Air 04/24/17 10:00 110 98 04/24/17 09:30 107 97 04/24/17 09:00 114 118/88 (98) 97 Laboratory Results: Last 24 Hours Test 04/24/17 23:35 04/25/17 06:15 Bedside Glucose 139 mg/dl White Blood Count 6.11 K/uL Red Blood Count 4.65 M/uL Hemoglobin 15.8 g/dL Hematocrit 43.4 % Mean Corpuscular Volume 93.3 fL Mean Corpuscular Hemoglobin 34.0 pg Mean Corpuscular Hemoglobin Concent 36.4 g/dl RDW Standard Deviation 46.7 fL RDW Coefficient of Variation 13.7 % Platelet Count 56 K/uL Mean Platelet Volume 10.9 fL Sodium Level 133 mmol/L Potassium Level 3.4 mmol/L Chloride Level 101 mmol/L Carbon Dioxide Level 23 mmol/L Anion Gap 9.0 mmol/L Blood Urea Nitrogen 6 mg/dl Creatinine 0.60 mg/dl Est Creatinine Clear Calc Drug Dose 151.3 ml/min Estimated GFR () 131.2 Estimated GFR (Non- 113.2 BUN/Creatinine Ratio 9.8 Random Glucose 132 mg/dl Calcium Level 8.8 mg/dl Phosphorus Level 3.0 mg/dl Magnesium Level 2.2 mg/dl Lipase 57 U/L Phenobarbital Level 7.4 mcg/mL Resident Tracking Resident Involvement: Resident Care Provided Care Provided: Adult [facility] Medicine
--- NOTE | 2017-04-25 13:49 | Neurology Progress Notes ---
Neurology Progress Note Date of Service Apr 25, 2017. Lucrecia Davidson is a 56 year old male with PMH : EtOH abuse, tobacco abuse, seizure disorder, thrombocytopenia and paroxysmal A fib who presents after 2 seizures since yesterday. Has a history of alcohol abuse over the past 40 years but states that he has been cutting use down to 3 6-packs a week over the past few months. He last drank was 3 days ago. The first seizure-like episode was unwitnessed last night and only lasted for a few minutes. He had more severe episode of body shakes with associated throbbing headache that lasted about an hour. He experienced urinary incontinence and bit his tongue. His girlfriend came home from work to check on him and witnessed the event. he had nausea and vomiting on his way to the ED by EMS. Denies auditory, visual hallucinations. Denies any fever, chills, confusion, CP, palpitations, SOB, hematemesis, dysuria , diarrhea, LE swelling. Has a significant bruise on his L forearm from a fall 4 days ago.The seizure are usually with alcohol withdrawal. Was admitted in October- November of this year for management of alcohol withdrawal that required intubation. Was discharged on Depakote, amlodipine and diltiazem but has not been taking these lately. Today he is sleeping but easily arousable. He is cooperative with exam. no complaints. States wants to go home Objective Date Time Temp Pulse Resp B/P (MAP) Pulse Ox O2 Delivery O2 Flow Rate FiO2 04/25/17 12:00 96 Room Air 04/25/17 12:00 36.7 70 16 139/91 (107) 96 Room Air 04/25/17 10:00 62 18 162/104 (123) 95 Room Air 04/25/17 08:00 Room Air 04/25/17 08:00 96 Room Air 04/25/17 08:00 36.4 75 18 127/79 (95) 96 Room Air 04/25/17 06:00 67 18 112/86 (95) 94 Room Air 04/25/17 04:00 36.9 64 16 170/98 (122) 95 Room Air 04/25/17 04:00 95 Room Air 04/25/17 02:00 66 18 143/87 (105) 95 Room Air 04/25/17 00:00 96 Room Air 04/25/17 00:00 36.7 61 18 157/101 (119) 96 Room Air 04/24/17 22:26 60 18 173/98 (123) 96 04/24/17 21:00 61 16 145/89 (107) 97 04/24/17 20:00 36.9 63 18 144/88 (106) 98 Room Air 04/24/17 20:00 Room Air 04/24/17 16:00 Room Air 04/24/17 14:00 94 Last 24 Hours Test 04/24/17 23:35 04/25/17 06:15 Bedside Glucose 139 mg/dl White Blood Count 6.11 K/uL Red Blood Count 4.65 M/uL Hemoglobin 15.8 g/dL Hematocrit 43.4 % Mean Corpuscular Volume 93.3 fL Mean Corpuscular Hemoglobin 34.0 pg Mean Corpuscular Hemoglobin Concent 36.4 g/dl RDW Standard Deviation 46.7 fL RDW Coefficient of Variation 13.7 % Platelet Count 56 K/uL Mean Platelet Volume 10.9 fL Sodium Level 133 mmol/L Potassium Level 3.4 mmol/L Chloride Level 101 mmol/L Carbon Dioxide Level 23 mmol/L Anion Gap 9.0 mmol/L Blood Urea Nitrogen 6 mg/dl Creatinine 0.60 mg/dl Est Creatinine Clear Calc Drug Dose 151.3 ml/min Estimated GFR () 131.2 Estimated GFR (Non- 113.2 BUN/Creatinine Ratio 9.8 Random Glucose 132 mg/dl Calcium Level 8.8 mg/dl Phosphorus Level 3.0 mg/dl Magnesium Level 2.2 mg/dl Lipase 57 U/L Phenobarbital Level 7.4 mcg/mL Imaging: no new imaging Exam: Physical Exam: Constitutional: appearance nourished, healthy and normal Ears, Nose, Mouth and Throat: mucous membranes moist, no injection and skin normal, eyes normal Cardiovascular: normal S-1 and S-2 and regular rate and rhythm Respiratory: clear to auscultation (CTA) and no rales, ronchi or wheeze Musculoskeletal: no peripheral edema Skin: no stigmata of neurocutaneous disease noted and normal and intact Eyes: extraocular muscles intact (EOMI) and pupils equal, round and reactive to light (PERRL) NEUROLOGIC EXAMINATION: Mental status: Alert and interactive Oriented to person Speech fluent with no evidence of aphasia Cranial Nerves smile eye brow raise symmetric, tongue midline dried blood in mouth Coordination: finger to nose with no bi pass, minimal reaching tremor, no cog wheeling Gait/Stance: Posture lying in bed Motor: Negative for pronator drift of out stretched arms with eyes closed. 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 keyboard action assembler bilaterally 5/5, hip flex 5/5 bilaterally Current Inpatient Medications Medications (Trade) Dose Ordered Sig/Rica Route Start Time Stop Time Status Last Admin Dose Admin Lorazepam (Ativan Tab) PRN Dosing -Active Protocol UD PRN PO 04/23/17 14:45 05/23/17 14:44 04/24/17 10:17 1 MG Nicotine (Nicoderm Cq 21MG Patch) 1 patch QAM TD 04/24/17 09:00 05/24/17 08:59 04/25/17 07:34 1 PATCH Miscellaneous (Remove Nicoderm Patch) 1 ea HS N/A 04/24/17 21:00 05/24/17 20:59 04/24/17 19:58 1 EA Diltiazem HCl (Cardizem Cd Cap) 120 mg DAILY PO 04/24/17 09:00 05/24/17 08:59 04/25/17 07:34 120 MG Divalproex Sodium (Depakote Delay Rel Tab) 125 mg TID PO 04/23/17 21:00 05/23/17 20:59 04/25/17 12:57 125 MG Divalproex Sodium (Depakote Delay Rel Tab) 500 mg TID PO 04/23/17 21:00 05/23/17 20:59 04/25/17 12:58 500 MG Ondansetron HCl (Zofran Inj) 4 mg Q6H PRN IV 04/23/17 15:15 05/23/17 15:14 Amiodarone HCl (Cordarone Tab) 200 mg BID PO 04/23/17 21:00 05/24/17 08:59 04/25/17 07:33 200 MG Multivitamins 10 ml/Thiamine HCl 100 mg/Folic Acid 1 mg/Sodium Chloride 1,011.2 ml @ 100 mls/ hr DAILY IV 04/24/17 09:00 04/26/17 08:59 04/25/17 08:57 100 MLS/HR Dexmedetomidine HCl 400 mcg/ Sodium Chloride 100 ml @ 0 mls/hr Q0M PRN IV 04/24/17 18:45 04/28/17 13:53 04/25/17 11:52 32 MLS/HR Hydralazine HCl (HydrALAZINE INJ) 20 mg Q4H PRN IV. 04/24/17 18:45 05/24/17 18:44 Gabapentin (Neurontin Tab) 600 mg Q12H PO 04/25/17 18:00 04/26/17 06:01 Gabapentin (Neurontin Tab) 600 mg Q24H PO 04/27/17 08:00 04/27/17 08:01 Phenobarbital (Phenobarbital Tab) 64.8 mg Taper QID PO 04/25/17 09:00 04/29/17 08:59 04/25/17 12:57 64.8 MG Potassium Citrate (Urocit-K Tab) 40 meq BID PO 04/25/17 09:00 04/25/17 21:01 04/25/17 10:55 40 MEQ Phenobarbital Sodium 260 mg/ Sodium Chloride 52 ml @ 312 mls/hr Q30M PRN IV 04/25/17 09:00 05/25/17 08:59 Phenobarbital Sodium 130 mg/ Sodium Chloride 51 ml @ 312 mls/hr Q30M PRN IV 04/25/17 09:15 05/25/17 09:14 Impression 56 year old male hx EtOH abuse and seizure disorder Plan 1. continue lyte supplement- banana bag per protocol 2. Depakote 625 mg TID - it is unclear he has seizure disorder or he has seizure with alcohol withdrawal 3. EEG- normal no seizure spikes 4. fall precautions 5. very compulsive will need supervision currently 1:1 sleeping most of day 6. Depakote was not taken as outpatient -will need therapeutic level prior to discharge 7. MRI -in December no need to repeat at this time 8. Depakote level in approx 5 days will need to be therapeutic current depakote level 7.4 I have seen and discussed above patient with Dr Pascual Choi, neurology Pateint seen and examined A bit better on the barbituate protocol along with the neurontin and benzodiazepines no evidence for non etoh related seizures but is on depakote and has been so will continue Neurology will sign off for now We can follow in clinic post discharge Suspect however that once back home his behavior will revert to the old pattern of etoh use and poor compliance with meds Pascual hCoi MD
--- NOTE | 2017-04-25 13:59 | Progress Note ---
Subjective Date of Service: Apr 25, 2017. Subjective Pt evaluation today including: conversation w/ patient, physical exam, lab review, review of studies, conversation w/ financial management consultant, review of inpatient medication list Saw/examined the patient in room 105 Sleepy and lethargic, required phenobarbital due to agitation Agitated when I woke him up this morning Refusing physical exam at this time. Problem List Medical Problems: (1) Alcohol withdrawal Status: Acute (2) Alcohol withdrawal Status: Acute (3) Dehydration Status: Acute (4) DTs (delirium tremens) Status: Acute (5) Multiple contusions Status: Acute (6) Seizure Status: Acute (7) Thrombocytopenia Status: Chronic (8) Tongue laceration Status: Acute (9) Tremor Status: Acute Review of Systems difficult to obtain due to patient's mental status/lethargy/weakness Medications Current Inpatient Medications Medications (Trade) Dose Ordered Sig/Rica Route Start Time Stop Time Status Last Admin Dose Admin Lorazepam (Ativan Tab) PRN Dosing -Active Protocol UD PRN PO 04/23/17 14:45 05/23/17 14:44 04/24/17 10:17 1 MG Nicotine (Nicoderm Cq 21MG Patch) 1 patch QAM TD 04/24/17 09:00 05/24/17 08:59 04/25/17 07:34 1 PATCH Miscellaneous (Remove Nicoderm Patch) 1 ea HS N/A 04/24/17 21:00 05/24/17 20:59 04/24/17 19:58 1 EA Diltiazem HCl (Cardizem Cd Cap) 120 mg DAILY PO 04/24/17 09:00 05/24/17 08:59 04/25/17 07:34 120 MG Divalproex Sodium (Depakote Delay Rel Tab) 125 mg TID PO 04/23/17 21:00 05/23/17 20:59 04/25/17 12:57 125 MG Divalproex Sodium (Depakote Delay Rel Tab) 500 mg TID PO 04/23/17 21:00 05/23/17 20:59 04/25/17 12:58 500 MG Ondansetron HCl (Zofran Inj) 4 mg Q6H PRN IV 04/23/17 15:15 05/23/17 15:14 Amiodarone HCl (Cordarone Tab) 200 mg BID PO 04/23/17 21:00 05/24/17 08:59 04/25/17 07:33 200 MG Multivitamins 10 ml/Thiamine HCl 100 mg/Folic Acid 1 mg/Sodium Chloride 1,011.2 ml @ 100 mls/ hr DAILY IV 04/24/17 09:00 04/26/17 08:59 04/25/17 08:57 100 MLS/HR Dexmedetomidine HCl 400 mcg/ Sodium Chloride 100 ml @ 0 mls/hr Q0M PRN IV 04/24/17 18:45 04/28/17 13:53 04/25/17 11:52 32 MLS/HR Hydralazine HCl (HydrALAZINE INJ) 20 mg Q4H PRN IV. 04/24/17 18:45 05/24/17 18:44 Gabapentin (Neurontin Tab) 600 mg Q12H PO 04/25/17 18:00 04/26/17 06:01 Gabapentin (Neurontin Tab) 600 mg Q24H PO 04/27/17 08:00 04/27/17 08:01 Phenobarbital (Phenobarbital Tab) 64.8 mg Taper QID PO 04/25/17 09:00 04/29/17 08:59 04/25/17 12:57 64.8 MG Potassium Citrate (Urocit-K Tab) 40 meq BID PO 04/25/17 09:00 04/25/17 21:01 04/25/17 10:55 40 MEQ Phenobarbital Sodium 260 mg/ Sodium Chloride 52 ml @ 312 mls/hr Q30M PRN IV 04/25/17 09:00 05/25/17 08:59 Phenobarbital Sodium 130 mg/ Sodium Chloride 51 ml @ 312 mls/hr Q30M PRN IV 04/25/17 09:15 05/25/17 09:14 Objective Vital Signs Date Time Temp Pulse Resp B/P (MAP) Pulse Ox O2 Delivery O2 Flow Rate FiO2 04/25/17 12:00 96 Room Air 04/25/17 12:00 36.7 70 16 139/91 (107) 96 Room Air 04/25/17 10:00 62 18 162/104 (123) 95 Room Air 04/25/17 08:00 Room Air 04/25/17 08:00 96 Room Air 04/25/17 08:00 36.4 75 18 127/79 (95) 96 Room Air 04/25/17 06:00 67 18 112/86 (95) 94 Room Air 04/25/17 04:00 36.9 64 16 170/98 (122) 95 Room Air 04/25/17 04:00 95 Room Air 04/25/17 02:00 66 18 143/87 (105) 95 Room Air 04/25/17 00:00 96 Room Air 04/25/17 00:00 36.7 61 18 157/101 (119) 96 Room Air 04/24/17 22:26 60 18 173/98 (123) 96 04/24/17 21:00 61 16 145/89 (107) 97 04/24/17 20:00 36.9 63 18 144/88 (106) 98 Room Air 04/24/17 20:00 Room Air 04/24/17 16:00 Room Air 04/24/17 14:00 94 Physical Exam General Appearance: + pertinent finding (+lethargic and agitated when he wakes up - refuses the rest of exam) Laboratory Results Last 24 Hours Test 04/24/17 23:35 04/25/17 06:15 Bedside Glucose 139 mg/dl White Blood Count 6.11 K/uL Red Blood Count 4.65 M/uL Hemoglobin 15.8 g/dL Hematocrit 43.4 % Mean Corpuscular Volume 93.3 fL Mean Corpuscular Hemoglobin 34.0 pg Mean Corpuscular Hemoglobin Concent 36.4 g/dl RDW Standard Deviation 46.7 fL RDW Coefficient of Variation 13.7 % Platelet Count 56 K/uL Mean Platelet Volume 10.9 fL Sodium Level 133 mmol/L Potassium Level 3.4 mmol/L Chloride Level 101 mmol/L Carbon Dioxide Level 23 mmol/L Anion Gap 9.0 mmol/L Blood Urea Nitrogen 6 mg/dl Creatinine 0.60 mg/dl Est Creatinine Clear Calc Drug Dose 151.3 ml/min Estimated GFR () 131.2 Estimated GFR (Non- 113.2 BUN/Creatinine Ratio 9.8 Random Glucose 132 mg/dl Calcium Level 8.8 mg/dl Phosphorus Level 3.0 mg/dl Magnesium Level 2.2 mg/dl Lipase 57 U/L Phenobarbital Level 7.4 mcg/mL Assessment and Plan This is a 56 year old male with a PMH of alcohol dependence, hx. of withdrawal/ delirium tremens requiring intubation, hx. of paroxysmal atrial fibrillation, hx. of seizure disorder presents to the ER after a seizure episode. Seizure Hx. of Delirium Tremens and Seizure Disorder 04/25 required phenobarbital, gabapentin protocol, Ativan PRN ICU admission replace K monitor electrolytes continue Depakote 04/24 monitored in the ICU doing well currently EtOH protocol in place with tapering Gabapentin dose and PRN Ativan neurology consult pending replace K and monitor electrolytes 04/23 as per records, patient has both seizure disorder for which he is on Depakote He had an episode of DTs in October 2016 requiring intubation Mg and K wnl +lactic acidosis likely secondary to seizure will add banana bag daily (thiamine, folic acid, multivitamin, Mg) alcohol withdrawal protocol with gabapentin and Ativan PRN check TSH, Phos, CPK trend cardiac enzymes continue Depakote at the dose he was discharged on with a Depakote level pending neurology and contract administration manager consulted for further input mental health consultation PT/OT + discharge planning evaluation Paroxysmal A. Fib during previous admission here in [facility] in October 2016, patient was in A. Fib with RVR actually has been noncompliant with his Cardizem and amiodarone medications will restart them here as he is agitated and in tachycardia currently in sinus rhythm Thrombocytopenia patient with chronic thrombocytopenia, likely due to alcohol use will monitor platelets and avoid medical DVT prophylaxis DVT ppx SCDs FULL CODE
[2017-04-25] MEDS: GABAPENTIN 600MG Q12H DOSE PO SCH (17:16)
[2017-04-26] VITALS (23 sets, daily range): BP systolic 74–161; BP diastolic 62–99; PULSE 53–86; TEMP 36.4–37; O2SAT 95–97
[2017-04-26] MEDS: DexMEDEtomidine HCL IV 400 MCG in SODIUM CHLORIDE 0.9% 100ML 96 ML IV PRN ×5 (01:10→23:14)
[2017-04-26] MEDS: GABAPENTIN 600MG Q12H DOSE PO SCH (05:38)
[2017-04-26 05:53] LABS: MEAN CELL VOLUME 92.7 fL (80-100); MEAN CORPUSCULAR HEMOGLOBIN 33.3 pg (25-34); RED BLOOD COUNT 4.53 M/uL (4.7-6.1); WHITE BLOOD COUNT 7.85 K/uL (4.8-10.8)
[2017-04-26 05:57] LABS: PLATELET COUNT 72 K/uL (130-400)
[2017-04-26] MEDS: PHENOBARBITAL SOD IV PRN ×2 (06:32→21:08)
[2017-04-26] MEDS: SODIUM CHLORIDE 0.9% IV PRN ×2 (06:32→21:08)
[2017-04-26 06:44] LABS: BUN/CREATININE RATIO 9.9 (10-20); CALCIUM 9.1 mg/dl (8.5-10.1); CREATININE 0.64 mg/dl (0.60-1.40); MAGNESIUM 2.2 mg/dl (1.8-2.4); PHOSPHORUS 3.7 mg/dl (2.5-4.9); POTASSIUM 4.2 mmol/L (3.5-5.1)
[2017-04-26] MEDS: AMIODARONE 200 MG TAB PO SCH ×2 (07:26→19:41)
[2017-04-26] MEDS: DILTIAZEM HCL 120 MG CAPCR PO SCH (07:26)
[2017-04-26] MEDS: DIVALPROEX DELAY REL TAB 125 MG TABEC PO SCH ×3 (07:27→19:41)
[2017-04-26] MEDS: DIVALPROEX SODIUM 500 MG DELAY RELEASE TAB PO SCH ×3 (07:27→19:41)
[2017-04-26] MEDS: NICOTINE 21 MG/24 HR TDSY TD SCH (07:28)
[2017-04-26] MEDS: PHENOBARBITAL 32.4 MG TAB PO SCH ×3 (07:30→19:41)
[2017-04-26] MEDS ORDERED: GABAPENTIN 600MG X1 DOSE PO SCH (08:00)
[2017-04-26] MEDS ORDERED: OLANZAPINE 10 MG/2.1 ML SDV IM SCH (08:30)
[2017-04-26] MEDS: QUETIAPINE FUMARATE 25 MG TAB PO SCH ×2 (10:20→19:41)
--- NOTE | 2017-04-26 11:05 | Critical Care Progress Note ---
Critical Care Progress Note Date of Service Apr 26, 2017. ICU Day ICU Day Number: [address] Ospina Subjective Patient asleep on assessment. Poor sleep at night. As per nursing staff he has intermittent episodes of belligerence, with yelling, inappropriate statements and some violence (swinging arms and legs), requiring intermittent IV phenobarbital in addition to his scheduled PO doses. He otherwise has no active complaints other than "being sick of being in here." No further reported seizure activity. He is voiding without issue. No BM to date. Objective GENERAL: Lying in bed, no acute distress, non-toxic HEAD: NC/AT EYES: Normal sclera and conjunctiva OROPHARYNX: No perioral cyanosis. No exudate, no erythema. Lips, buccal mucosa normal. Tongue laceration on left side, s/p suture repair. Mucous membranes are moist. NECK: Supple, no adenopathy, non-tender LUNGS: Normal chest wall mechanics. CTAB with good air entry. No rales, crackles , or wheezes HEART: RRR, S1 and S2 normal, no murmurs appreciated ABDOMEN: Soft, non-distended, normo-active bowel sounds, no masses, no rebound or guarding. SKIN: Warm, pink, dry. No erythema, rashes. Bruising on arm and torso from previous falls EXTREMITIES: Grossly normal. No pitting edema. Calves supple. NEURO: Alert. No focal deficits. Cranial nerves II-XII grossly intact PSYCH: Agitated mood. Rapid speech. Raising volume with frustration. As per nursing evaluation. Current SOFA Score SOFA Score Response (Comments) Value Platelets (x10) < 100 2 Bilirubin (mg/dL) 1.2 - 1.9 1 [place]pine Coma Score 15 0 Level of Hypotension No Hypotension 0 Creatinine (mg/dL) < 1.2 0 Total 3 Assessment & Plan Reason critically ill: 56 year old male presents with seizure-like activity, on a background of seizure disorder and intermittent alcohol cessation. Neuro - CAM-ICU negative. - AWSS protocol: Ativan, gabapentin. Continue to monitor for changes in RASS/ evidence of delirium tremens - PO Phenobarbital taper regimen: 60mg QID x1day, 60mg TID x1day, 60mg BID x1day. 30mg BID x1day. IV phenobarbital PRN breakthrough agitation: 130mg if moderately agitated /260mg if severely agitated. Add Seroquel 50mg q12h - Continue Divalproex (previously patient was not compliant with this) - Falls precaution CV - Vitals: HR 60-70, SBP 110-160. Hemodynamically stable, except with transient orthostatic episode when he jumped out of bed yesterday - H/o paroxysmal a.fib: on home meds: diltiazem, amiodarone (previously patient was not compliant with these) - Continue to monitor on telemetry - EKG PRN chest pain Resp - Saturating well on RA. Oxygen support if needed - Advised for smoking/tobacco chewing cessation. Nicotine patch ordered GI/Nutrition - Diet: Regular diet - Constipation: Colace, Miralax - Zofran PRN nausea Renal/ - Banana bag x 3 days total - Electrolytes WNL - trend BMP - Corley not indicated, patient voiding ID - Antibiotics not warranted. No leukocytosis, afebrile Endo - No h/o DM. Glucose monitoring as per ICU protocol. - Sugars currently WNL Heme - H/H stable. Coags WNL. Platelets low but improved since yesterday - monitor for signs of bleeding/bruising - Trend CBC MSK/Skin - OT/PT Access/Line - Peripheral IV VTE Prophylaxis - SCDs, TEDs - Not a good candidate for chemical anticoagulation, since ecchymosis from multiple falls already Resident Physician Supervision Note: I was present with Dr. Marie during the history and exam. I discussed the case with the resident and agree with the findings and plan as documented in the note. Any exceptions or clarifications are listed here: Patient with chronic alcohol abuse, prior withdrawal seizures, known to us from long hospital stay with intubation, came to ED after suspected seizures, associated with tongue biting requiring sutures. States that he quit drinking few days ago. Fell few days ago sustaining a bruise on the left arm and left flank. Now in alcohol withdrawal, tremulous, occasionally agitated. Not taking his meds (Depakote, amiodarone) Problems: Delirium tremens Alcohol withdrawal seizure Paroxysmal atrial fibrillation Plan: On Ativan and gabapentin per protocol. Remains agitated, requiring intermittent phenobarbital doses IV. Continue standing PO phenobarbital Continue Depakote. Thiamine, folate, MVI in "banana bag" Continue amiodarone Not an anticoagulation candidate in my opinion, prone to traumas (already has ecchymosis from falling) Critical care time spent with the patient, reviewing the chart, greater than 25 minutes Continue ICU monitoring Documented By: Morales Ospina MD Consults & Procedures Consultants: Critical care Mental health Neurology Procedures: None Data Medications: Current Inpatient Medications Medications (Trade) Dose Ordered Sig/Rica Route Start Time Stop Time Status Last Admin Dose Admin Lorazepam (Ativan Tab) PRN Dosing -Active Protocol UD PRN PO 04/23/17 14:45 05/23/17 14:44 04/24/17 10:17 1 MG Nicotine (Nicoderm Cq 21MG Patch) 1 patch QAM TD 04/24/17 09:00 05/24/17 08:59 04/26/17 07:28 1 PATCH Miscellaneous (Remove Nicoderm Patch) 1 ea HS N/A 04/24/17 21:00 05/24/17 20:59 04/25/17 21:29 1 EA Diltiazem HCl (Cardizem Cd Cap) 120 mg DAILY PO 04/24/17 09:00 05/24/17 08:59 04/26/17 07:26 120 MG Divalproex Sodium (Depakote Delay Rel Tab) 125 mg TID PO 04/23/17 21:00 05/23/17 20:59 04/26/17 07:27 125 MG Divalproex Sodium (Depakote Delay Rel Tab) 500 mg TID PO 04/23/17 21:00 05/23/17 20:59 04/26/17 07:27 500 MG Ondansetron HCl (Zofran Inj) 4 mg Q6H PRN IV 04/23/17 15:15 05/23/17 15:14 Amiodarone HCl (Cordarone Tab) 200 mg BID PO 04/23/17 21:00 05/24/17 08:59 04/26/17 07:26 200 MG Dexmedetomidine HCl 400 mcg/ Sodium Chloride 100 ml @ 0 mls/hr Q0M PRN IV 04/24/17 18:45 04/28/17 13:53 04/26/17 04:27 32.6 MLS/HR Hydralazine HCl (HydrALAZINE INJ) 20 mg Q4H PRN IV. 04/24/17 18:45 05/24/17 18:44 04/25/17 22:20 20 MG Gabapentin (Neurontin Tab) 600 mg Q24H PO 04/27/17 08:00 04/27/17 08:01 Phenobarbital (Phenobarbital Tab) 64.8 mg Taper TID PO 04/25/17 09:00 04/29/17 08:59 04/26/17 07:30 64.8 MG Phenobarbital Sodium 260 mg/ Sodium Chloride 52 ml @ 312 mls/hr Q30M PRN IV 04/25/17 09:00 05/25/17 08:59 Phenobarbital Sodium 130 mg/ Sodium Chloride 51 ml @ 312 mls/hr Q30M PRN IV 04/25/17 09:15 05/25/17 09:14 04/26/17 06:32 312 MLS/HR Quetiapine Fumarate (seroQUEL TAB) 50 mg Q12 PO 04/26/17 09:00 05/26/17 08:59 04/26/17 10:20 50 MG Vital Signs: Date Time Temp Pulse Resp B/P (MAP) Pulse Ox O2 Delivery O2 Flow Rate FiO2 04/26/17 10:00 74 20 134/88 (103) 95 Room Air 04/26/17 08:00 Room Air 04/26/17 08:00 37.0 73 22 129/85 (100) 96 Room Air 04/26/17 08:00 Room Air 04/26/17 06:00 53 20 156/91 (112) 96 Room Air 04/26/17 04:25 36.5 75 18 139/95 (110) 04/26/17 04:24 16 116/75 (89) 04/26/17 04:15 66 18 116/75 (89) 04/26/17 04:11 66 20 123/75 (91) 04/26/17 04:10 77 19 83/62 (69) 04/26/17 04:09 83 18 87/68 (74) 04/26/17 04:03 79 20 89/67 (74) 04/26/17 04:00 95 Room Air 04/26/17 04:00 81 18 04/26/17 03:58 78 20 74/64 (67) 04/26/17 02:00 79 18 111/69 (83) 95 Room Air 04/26/17 00:01 36.4 69 18 112/82 (92) 96 Room Air 04/25/17 23:59 96 Room Air 04/25/17 22:43 75 0 94/66 (75) 93 04/25/17 22:41 71 0 69/51 (57) 04/25/17 22:40 74 0 71/47 (55) 04/25/17 22:00 68 20 175/112 (133) 96 Room Air 04/25/17 22:00 64 0 97 04/25/17 20:00 Room Air 04/25/17 20:00 36.4 60 20 150/99 (116) Room Air 04/25/17 18:00 58 18 141/91 (108) 95 Room Air 04/25/17 16:00 36.4 69 16 121/80 (94) 92 Room Air 04/25/17 16:00 92 Room Air 04/25/17 14:00 68 16 138/91 (107) 95 Room Air 04/25/17 12:00 96 Room Air 04/25/17 12:00 36.7 70 16 139/91 (107) 96 Room Air Laboratory Results: Last 24 Hours Test 04/25/17 10:56 04/25/17 15:10 04/25/17 21:02 04/26/17 05:39 Bedside Glucose 121 mg/dl 123 mg/dl 113 mg/dl White Blood Count 7.85 K/uL Red Blood Count 4.53 M/uL Hemoglobin 15.1 g/dL Hematocrit 42.0 % Mean Corpuscular Volume 92.7 fL Mean Corpuscular Hemoglobin 33.3 pg Mean Corpuscular Hemoglobin Concent 36.0 g/dl RDW Standard Deviation 46.0 fL RDW Coefficient of Variation 13.5 % Platelet Count 72 K/uL Mean Platelet Volume 11.0 fL Sodium Level 135 mmol/L Potassium Level 4.2 mmol/L Chloride Level 103 mmol/L Carbon Dioxide Level 24 mmol/L Anion Gap 8.0 mmol/L Blood Urea Nitrogen 6 mg/dl Creatinine 0.64 mg/dl Est Creatinine Clear Calc Drug Dose 141.9 ml/min Estimated GFR () 127.8 Estimated GFR (Non- 110.2 BUN/Creatinine Ratio 9.9 Random Glucose 98 mg/dl Calcium Level 9.1 mg/dl Phosphorus Level 3.7 mg/dl Magnesium Level 2.2 mg/dl Total Bilirubin 1.2 mg/dl Direct Bilirubin 0.3 mg/dl Aspartate Amino Transf (AST/SGOT) 41 U/L Alanine Aminotransferase (ALT/SGPT) 46 U/L Alkaline Phosphatase 118 U/L Total Protein 7.5 gm/dl Albumin 3.3 gm/dl Lipase 58 U/L Resident Tracking Resident Involvement: Resident Care Provided Care Provided: Adult [facility] Medicine
[2017-04-26] MEDS ORDERED: POLYETHYLENE (MIRALAX) 17 GM PACK PO ONE (11:30)
[2017-04-26] MEDS ORDERED: DOCUSATE SODIUM 100 MG CAP PO ONE (11:30)
--- NOTE | 2017-04-26 16:12 | Progress Note ---
Subjective Date of Service: Apr 26, 2017. Subjective Pt evaluation today including: conversation w/ patient, physical exam, lab review, review of studies, review of inpatient medication list Saw/examined the patient in room 105 Was sleeping when I first stepped in, but woke up and was pleasant States he's doing well - no chest pain/shortness of breath +weakness and has difficulty with ambulation this morning Precedex drip still on Problem List Medical Problems: (1) Alcohol withdrawal Status: Acute (2) Alcohol withdrawal Status: Acute (3) Dehydration Status: Acute (4) DTs (delirium tremens) Status: Acute (5) Multiple contusions Status: Acute (6) Seizure Status: Acute (7) Thrombocytopenia Status: Chronic (8) Tongue laceration Status: Acute (9) Tremor Status: Acute Review of Systems Constitutional: + weakness, + fatigue, No fever, No chills Respiratory: No cough, No sputum, No wheezing, No shortness of breath, No dyspnea on exertion, No dyspnea at rest, No hemoptysis Cardiac: No chest pain, No edema, No palpitations Psychiatric: + anxiety Medications Current Inpatient Medications Medications (Trade) Dose Ordered Sig/Rica Route Start Time Stop Time Status Last Admin Dose Admin Lorazepam (Ativan Tab) PRN Dosing -Active Protocol UD PRN PO 04/23/17 14:45 05/23/17 14:44 04/24/17 10:17 1 MG Nicotine (Nicoderm Cq 21MG Patch) 1 patch QAM TD 04/24/17 09:00 05/24/17 08:59 04/26/17 07:28 1 PATCH Miscellaneous (Remove Nicoderm Patch) 1 ea HS N/A 04/24/17 21:00 05/24/17 20:59 04/25/17 21:29 1 EA Diltiazem HCl (Cardizem Cd Cap) 120 mg DAILY PO 04/24/17 09:00 05/24/17 08:59 04/26/17 07:26 120 MG Divalproex Sodium (Depakote Delay Rel Tab) 125 mg TID PO 04/23/17 21:00 05/23/17 20:59 04/26/17 13:14 125 MG Divalproex Sodium (Depakote Delay Rel Tab) 500 mg TID PO 04/23/17 21:00 05/23/17 20:59 04/26/17 13:14 500 MG Ondansetron HCl (Zofran Inj) 4 mg Q6H PRN IV 04/23/17 15:15 05/23/17 15:14 Amiodarone HCl (Cordarone Tab) 200 mg BID PO 04/23/17 21:00 05/24/17 08:59 04/26/17 07:26 200 MG Dexmedetomidine HCl 400 mcg/ Sodium Chloride 100 ml @ 0 mls/hr Q0M PRN IV 04/24/17 18:45 04/28/17 13:53 04/26/17 15:33 32 MLS/HR Hydralazine HCl (HydrALAZINE INJ) 20 mg Q4H PRN IV. 04/24/17 18:45 05/24/17 18:44 04/25/17 22:20 20 MG Gabapentin (Neurontin Tab) 600 mg Q24H PO 04/27/17 08:00 04/27/17 08:01 Phenobarbital (Phenobarbital Tab) 64.8 mg Taper TID PO 04/25/17 09:00 04/29/17 08:59 04/26/17 13:14 64.8 MG Phenobarbital Sodium 260 mg/ Sodium Chloride 52 ml @ 312 mls/hr Q30M PRN IV 04/25/17 09:00 05/25/17 08:59 Phenobarbital Sodium 130 mg/ Sodium Chloride 51 ml @ 312 mls/hr Q30M PRN IV 04/25/17 09:15 05/25/17 09:14 04/26/17 06:32 312 MLS/HR Quetiapine Fumarate (seroQUEL TAB) 50 mg Q12 PO 04/26/17 09:00 05/26/17 08:59 04/26/17 10:20 50 MG Docusate Sodium (coLACE CAP) 100 mg BID PO 04/26/17 21:00 05/26/17 20:59 Polyethylene (Miralax Powder Packet) 17 gm DAILY PO 04/27/17 09:00 05/27/17 08:59 Objective Vital Signs Date Time Temp Pulse Resp B/P (MAP) Pulse Ox O2 Delivery O2 Flow Rate FiO2 04/26/17 12:00 95 04/26/17 12:00 73 20 107/81 (90) 97 Room Air 04/26/17 10:00 74 20 134/88 (103) 95 Room Air 04/26/17 08:00 Room Air 04/26/17 08:00 37.0 73 22 129/85 (100) 96 Room Air 04/26/17 08:00 Room Air 04/26/17 06:00 53 20 156/91 (112) 96 Room Air 04/26/17 04:25 36.5 75 18 139/95 (110) 04/26/17 04:24 16 116/75 (89) 04/26/17 04:15 66 18 116/75 (89) 04/26/17 04:11 66 20 123/75 (91) 04/26/17 04:10 77 19 83/62 (69) 04/26/17 04:09 83 18 87/68 (74) 04/26/17 04:03 79 20 89/67 (74) 04/26/17 04:00 95 Room Air 04/26/17 04:00 81 18 04/26/17 03:58 78 20 74/64 (67) 04/26/17 02:00 79 18 111/69 (83) 95 Room Air 04/26/17 00:01 36.4 69 18 112/82 (92) 96 Room Air 04/25/17 23:59 96 Room Air 04/25/17 22:43 75 0 94/66 (75) 93 04/25/17 22:41 71 0 69/51 (57) 04/25/17 22:40 74 0 71/47 (55) 04/25/17 22:00 68 20 175/112 (133) 96 Room Air 04/25/17 22:00 64 0 97 04/25/17 20:00 Room Air 04/25/17 20:00 36.4 60 20 150/99 (116) Room Air 04/25/17 18:00 58 18 141/91 (108) 95 Room Air 04/25/17 16:00 36.4 69 16 121/80 (94) 92 Room Air 04/25/17 16:00 92 Room Air Physical Exam General Appearance: no apparent distress, + pertinent finding (Pleasant today) Respiratory/Chest: lungs clear, normal breath sounds, no respiratory distress, no accessory muscle use Cardiovascular: regular rate, rhythm, no edema, no murmur Extremities: normal inspection, no pedal edema Neurologic/Psychiatric: + pertinent finding (+tremulousness) Laboratory Results Last 24 Hours Test 04/25/17 21:02 04/26/17 05:39 04/26/17 15:38 Bedside Glucose 113 mg/dl 220 mg/dl White Blood Count 7.85 K/uL Red Blood Count 4.53 M/uL Hemoglobin 15.1 g/dL Hematocrit 42.0 % Mean Corpuscular Volume 92.7 fL Mean Corpuscular Hemoglobin 33.3 pg Mean Corpuscular Hemoglobin Concent 36.0 g/dl RDW Standard Deviation 46.0 fL RDW Coefficient of Variation 13.5 % Platelet Count 72 K/uL Mean Platelet Volume 11.0 fL Sodium Level 135 mmol/L Potassium Level 4.2 mmol/L Chloride Level 103 mmol/L Carbon Dioxide Level 24 mmol/L Anion Gap 8.0 mmol/L Blood Urea Nitrogen 6 mg/dl Creatinine 0.64 mg/dl Est Creatinine Clear Calc Drug Dose 141.9 ml/min Estimated GFR () 127.8 Estimated GFR (Non- 110.2 BUN/Creatinine Ratio 9.9 Random Glucose 98 mg/dl Calcium Level 9.1 mg/dl Phosphorus Level 3.7 mg/dl Magnesium Level 2.2 mg/dl Total Bilirubin 1.2 mg/dl Direct Bilirubin 0.3 mg/dl Aspartate Amino Transf (AST/SGOT) 41 U/L Alanine Aminotransferase (ALT/SGPT) 46 U/L Alkaline Phosphatase 118 U/L Total Protein 7.5 gm/dl Albumin 3.3 gm/dl Lipase 58 U/L Assessment and Plan This is a 56 year old male with a PMH of alcohol dependence, hx. of withdrawal/ delirium tremens requiring intubation, hx. of paroxysmal atrial fibrillation, hx. of seizure disorder presents to the ER after a seizure episode. Seizure Hx. of Delirium Tremens and Seizure Disorder 04/26 Currently on Precedex drip Phenobarbital taper, gabapentin protocol, Ativan PRN continue Depakote 04/25 required phenobarbital, gabapentin protocol, Ativan PRN ICU admission replace K monitor electrolytes continue Depakote 04/24 monitored in the ICU doing well currently EtOH protocol in place with tapering Gabapentin dose and PRN Ativan neurology consult pending replace K and monitor electrolytes 04/23 as per records, patient has both seizure disorder for which he is on Depakote He had an episode of DTs in October 2016 requiring intubation Mg and K wnl +lactic acidosis likely secondary to seizure will add banana bag daily (thiamine, folic acid, multivitamin, Mg) alcohol withdrawal protocol with gabapentin and Ativan PRN check TSH, Phos, CPK trend cardiac enzymes continue Depakote at the dose he was discharged on with a Depakote level pending neurology and [employer] consulted for further input mental health consultation PT/OT + discharge planning evaluation Paroxysmal A. Fib during previous admission here in [facility] in October 2016, patient was in A. Fib with RVR actually has been noncompliant with his Cardizem and amiodarone medications will restart them here as he is agitated and in tachycardia currently in sinus rhythm Thrombocytopenia patient with chronic thrombocytopenia, likely due to alcohol use will monitor platelets and avoid medical DVT prophylaxis DVT ppx SCDs FULL CODE
[2017-04-26] MEDS: DOCUSATE SODIUM 100 MG CAP PO SCH (19:41)
[2017-04-27] VITALS (11 sets, daily range): BP systolic 83–152; BP diastolic 68–107; PULSE 76–112; TEMP 36.8–37.1; O2SAT 92–100
[2017-04-27] MEDS: PHENOBARBITAL SOD IV PRN (03:46)
[2017-04-27] MEDS: SODIUM CHLORIDE 0.9% IV PRN (03:46)
[2017-04-27] MEDS: DexMEDEtomidine HCL IV 400 MCG in SODIUM CHLORIDE 0.9% 100ML 96 ML IV PRN (05:03)
[2017-04-27 05:49] LABS: HEMATOCRIT 40.7 % (42-52); MEAN CELL VOLUME 94.4 fL (80-100); MEAN CORPUSCULAR HEMOGLOBIN 32.3 pg (25-34); MEAN CORPUSCULAR HGB CONC 34.2 g/dl (32-36); RED BLOOD COUNT 4.31 M/uL (4.7-6.1); WHITE BLOOD COUNT 5.59 K/uL (4.8-10.8)
[2017-04-27 05:51] LABS: MEAN PLATELET VOLUME 10.9 fL (7.4-10.4); PLATELET COUNT 81 K/uL (130-400)
[2017-04-27 06:23] LABS: BUN/CREATININE RATIO 18.6 (10-20); CALCIUM 8.6 mg/dl (8.5-10.1); CREATININE 0.63 mg/dl (0.60-1.40); MAGNESIUM 2.1 mg/dl (1.8-2.4)
[2017-04-27] MEDS: DILTIAZEM HCL 120 MG CAPCR PO SCH (07:40)
[2017-04-27] MEDS: DOCUSATE SODIUM 100 MG CAP PO SCH ×2 (07:40→20:12)
[2017-04-27] MEDS: AMIODARONE 200 MG TAB PO SCH ×2 (07:41→20:12)
[2017-04-27] MEDS: DIVALPROEX DELAY REL TAB 125 MG TABEC PO SCH ×3 (07:41→20:13)
[2017-04-27] MEDS: QUETIAPINE FUMARATE 25 MG TAB PO SCH ×2 (07:42→20:16)
[2017-04-27] MEDS: DIVALPROEX SODIUM 500 MG DELAY RELEASE TAB PO SCH ×3 (07:42→20:14)
[2017-04-27] MEDS: POLYETHYLENE (MIRALAX) 17 GM PACK PO SCH (07:42)
[2017-04-27] MEDS: NICOTINE 21 MG/24 HR TDSY TD SCH (07:43)
[2017-04-27] MEDS: PHENOBARBITAL 32.4 MG TAB PO SCH ×2 (07:48→20:18)
[2017-04-27] MEDS ORDERED: GABAPENTIN 600MG X1 DOSE PO SCH (08:00)
--- NOTE | 2017-04-27 11:14 | Critical Care Progress Note ---
Critical Care Progress Note Date of Service Apr 27, 2017. ICU Day ICU Day Number: [address] Ospina Subjective Patient well, denies acute overnight issues. Denies CP, dyspnea, palpitations. Tolerating diet without N/V or abdominal pain. Voiding without urinary symptoms. Had some bowel movements yesterday with Miralax. Denies issues with sleep or ambulation. Objective GENERAL: Lying in bed, no acute distress, non-toxic HEAD: NC/AT EYES: Normal sclera and conjunctiva OROPHARYNX: No perioral cyanosis. No exudate, no erythema. Lips, buccal mucosa normal. Tongue laceration on left side, s/p suture repair. Mucous membranes are moist. NECK: Supple, no adenopathy, non-tender LUNGS: Normal chest wall mechanics. CTAB with good air entry. No rales, crackles , or wheezes HEART: RRR, S1 and S2 normal, no murmurs appreciated ABDOMEN: Soft, non-distended, normo-active bowel sounds, no masses, no rebound or guarding. SKIN: Warm, pink, dry. No erythema, rashes. Bruising on arm and torso from previous falls EXTREMITIES: Grossly normal. No pitting edema. Calves supple. NEURO: Alert. No focal deficits. Cranial nerves II-XII grossly intact PSYCH: Agitated mood. Rapid speech. Raising volume with frustration. As per nursing evaluation. Current SOFA Score SOFA Score Response (Comments) Value Platelets (x10) < 100 2 Bilirubin (mg/dL) 1.2 - 1.9 1 Do Coma Score 15 0 Level of Hypotension No Hypotension 0 Creatinine (mg/dL) < 1.2 0 Total 3 Assessment & Plan Reason critically ill: 56 year old male presents with seizure-like activity, on a background of seizure disorder and intermittent alcohol cessation. Neuro - CAM-ICU negative. - AWSS protocol: Ativan, gabapentin, and Precedex drip not deemed to be helpful in reducing agitation - discontinue. Continue PO Phenobarbital taper regimen: 60mg QID x1day, 60mg TID x1day, 60mg BID x1day. 30mg BID x1day. IV phenobarbital PRN breakthrough agitation: 130mg if moderately agitated /260mg if severely agitated. - Continue Seroquel 50mg q12h - Continue Divalproex (previously patient was not compliant with this) - Falls precaution CV - Vitals: HR 60-90, SBP 120-160. Hemodynamically stable - H/o paroxysmal a.fib: on home meds: diltiazem, amiodarone (previously patient was not compliant with these) - Continue to monitor on telemetry - EKG PRN chest pain Resp - Saturating well on RA. Oxygen support if needed - Advised for smoking/tobacco chewing cessation. Nicotine patch ordered GI/Nutrition - Diet: Regular diet - Constipation: Colace, Miralax - Zofran PRN nausea Renal/ - Electrolytes WNL - trend BMP - 3 days of banana bag completed - Corley not indicated, patient voiding ID - Antibiotics not warranted. No leukocytosis, afebrile Endo - No h/o DM. Glucose monitoring as per ICU protocol. - Sugars currently WNL Heme - H/H stable. Coags WNL. Platelets low but improved since yesterday - monitor for signs of bleeding/bruising - Trend CBC MSK/Skin - OT/PT Access/Line - Peripheral IV VTE Prophylaxis - SCDs, TEDs - Not a good candidate for chemical anticoagulation, since ecchymosis from multiple falls already Resident Physician Supervision Note: I was present with Dr. Marie during the history and exam. I discussed the case with the resident and agree with the findings and plan as documented in the note. Any exceptions or clarifications are listed here: Patient with chronic alcohol abuse, prior withdrawal seizures, known to us from long hospital stay with intubation, came to ED after suspected seizures, associated with tongue biting requiring sutures. States that he quit drinking few days ago. Fell few days ago sustaining a bruise on the left arm and left flank. Now in alcohol withdrawal. Not taking his meds (Depakote, amiodarone) Problems: Delirium tremens Alcohol withdrawal seizure Paroxysmal atrial fibrillation Plan: On Ativan prn and gabapentin per protocol. Phenobarbital taper. prn iv phenobarbital. Appears less agitated, off Precedex as off today Continue standing PO phenobarbital Continue Depakote. Thiamine, folate, MVI in "banana bag" Continue amiodarone and diltiazem Not an anticoagulation candidate in my opinion, prone to traumas (already has ecchymosis from falling) Critical care time spent with the patient, reviewing the chart, greater than 25 minutes Continue ICU monitoring today Documented By: Morales Ospina MD Consults & Procedures Consultants: Critical care Mental health Neurology Procedures: None Data Medications: Current Inpatient Medications Medications (Trade) Dose Ordered Sig/Rica Route Start Time Stop Time Status Last Admin Dose Admin Lorazepam (Ativan Tab) PRN Dosing -Active Protocol UD PRN PO 04/23/17 14:45 05/23/17 14:44 04/24/17 10:17 1 MG Nicotine (Nicoderm Cq 21MG Patch) 1 patch QAM TD 04/24/17 09:00 05/24/17 08:59 04/27/17 07:43 1 PATCH Miscellaneous (Remove Nicoderm Patch) 1 ea HS N/A 04/24/17 21:00 05/24/17 20:59 04/26/17 19:41 1 EA Diltiazem HCl (Cardizem Cd Cap) 120 mg DAILY PO 04/24/17 09:00 05/24/17 08:59 04/27/17 07:40 120 MG Divalproex Sodium (Depakote Delay Rel Tab) 125 mg TID PO 04/23/17 21:00 05/23/17 20:59 04/27/17 07:41 125 MG Divalproex Sodium (Depakote Delay Rel Tab) 500 mg TID PO 04/23/17 21:00 05/23/17 20:59 04/27/17 07:42 500 MG Ondansetron HCl (Zofran Inj) 4 mg Q6H PRN IV 04/23/17 15:15 05/23/17 15:14 Amiodarone HCl (Cordarone Tab) 200 mg BID PO 04/23/17 21:00 05/24/17 08:59 04/27/17 07:41 200 MG Dexmedetomidine HCl 400 mcg/ Sodium Chloride 100 ml @ 0 mls/hr Q0M PRN IV 04/24/17 18:45 04/28/17 13:53 04/27/17 05:03 20 MLS/HR Hydralazine HCl (HydrALAZINE INJ) 20 mg Q4H PRN IV. 04/24/17 18:45 05/24/17 18:44 04/25/17 22:20 20 MG Phenobarbital (Phenobarbital Tab) 64.8 mg Taper BID PO 04/25/17 09:00 04/29/17 08:59 04/27/17 07:48 64.8 MG Phenobarbital Sodium 260 mg/ Sodium Chloride 52 ml @ 312 mls/hr Q30M PRN IV 04/25/17 09:00 05/25/17 08:59 Phenobarbital Sodium 130 mg/ Sodium Chloride 51 ml @ 312 mls/hr Q30M PRN IV 04/25/17 09:15 05/25/17 09:14 04/27/17 03:46 312 MLS/HR Quetiapine Fumarate (seroQUEL TAB) 50 mg Q12 PO 04/26/17 09:00 05/26/17 08:59 04/27/17 07:42 50 MG Docusate Sodium (coLACE CAP) 100 mg BID PO 04/26/17 21:00 05/26/17 20:59 04/27/17 07:40 100 MG Polyethylene (Miralax Powder Packet) 17 gm DAILY PO 04/27/17 09:00 05/27/17 08:59 04/27/17 07:42 17 GM Vital Signs: Date Time Temp Pulse Resp B/P (MAP) Pulse Ox O2 Delivery O2 Flow Rate FiO2 04/27/17 10:00 93 18 83/73 (76) 93 Room Air 04/27/17 08:00 92 Room Air 04/27/17 08:00 36.8 76 22 96/68 (77) 92 Room Air 04/27/17 05:59 36.9 92 20 134/94 (107) 100 Room Air 04/27/17 04:00 Room Air 04/27/17 04:00 36.8 80 18 114/74 (87) 99 Room Air 04/27/17 02:30 36.8 78 18 111/74 (86) 97 Room Air 04/27/17 00:00 Room Air 04/26/17 23:15 75 04/26/17 23:00 78 04/26/17 22:50 36.5 82 18 98/66 (77) 97 Room Air 04/26/17 22:45 86 04/26/17 22:00 84 18 91/72 (78) 95 Room Air 04/26/17 20:00 37.0 82 20 117/74 (88) 96 Room Air 04/26/17 20:00 96 Room Air 04/26/17 18:00 74 18 89/68 (75) 96 Room Air 04/26/17 16:00 36.5 70 20 161/99 (119) 95 Room Air 04/26/17 16:00 95 Room Air 04/26/17 12:00 95 04/26/17 12:00 73 20 107/81 (90) 97 Room Air Laboratory Results: Last 24 Hours Test 04/26/17 15:38 04/27/17 05:34 Bedside Glucose 220 mg/dl White Blood Count 5.59 K/uL Red Blood Count 4.31 M/uL Hemoglobin 13.9 g/dL Hematocrit 40.7 % Mean Corpuscular Volume 94.4 fL Mean Corpuscular Hemoglobin 32.3 pg Mean Corpuscular Hemoglobin Concent 34.2 g/dl RDW Standard Deviation 46.7 fL RDW Coefficient of Variation 13.4 % Platelet Count 81 K/uL Mean Platelet Volume 10.9 fL Sodium Level 138 mmol/L Potassium Level 4.0 mmol/L Chloride Level 105 mmol/L Carbon Dioxide Level 25 mmol/L Anion Gap 8.0 mmol/L Blood Urea Nitrogen 12 mg/dl Creatinine 0.63 mg/dl Est Creatinine Clear Calc Drug Dose 162.6 ml/min Estimated GFR () 128.6 Estimated GFR (Non- 110.9 BUN/Creatinine Ratio 18.6 Random Glucose 89 mg/dl Calcium Level 8.6 mg/dl Phosphorus Level 4.0 mg/dl Magnesium Level 2.1 mg/dl Lipase 96 U/L Resident Tracking Resident Involvement: Resident Care Provided Care Provided: Adult [facility] Medicine
--- NOTE | 2017-04-27 18:07 | Progress Note ---
Medicine Progress Note Date & Time of Visit: Apr 27, 2017 at 17:38. Subjective Pt was seen and examined Sitting at the edge of the bed with one to one sitter Pt said that he feels fine He said that he is feeling fine and would like to be discharge soon He said that his LE strength seem to improve Denies any chest pain, palpitation, dizziness and SOB Objective Last 8 Hrs Date Time Temp Pulse Resp B/P (MAP) Pulse Ox O2 Delivery O2 Flow Rate FiO2 04/27/17 16:00 112 20 137/95 (109) 95 Room Air 04/27/17 16:00 94 Room Air 04/27/17 14:00 105 18 137/95 (109) 95 Room Air 04/27/17 12:00 92 18 105/82 (90) 93 Room Air 04/27/17 12:00 95 Room Air 04/27/17 10:00 93 18 83/73 (76) 93 Room Air Physical Exam: General- No acute distress Head- atraumatic Eyes- PERRL, EOMI ENT- oropharynx clear Neck- no JVD Lungs- clear to auscultation Heart- Tachycardia Abdomen- normal bowel sounds, soft Extremities- no pretibial edema, no calf tenderness Neuro- alert, oriented, PERRL, EOMI Skin- warm & dry Laboratory Results: Last 24 Hours Test 04/27/17 05:34 White Blood Count 5.59 K/uL Red Blood Count 4.31 M/uL Hemoglobin 13.9 g/dL Hematocrit 40.7 % Mean Corpuscular Volume 94.4 fL Mean Corpuscular Hemoglobin 32.3 pg Mean Corpuscular Hemoglobin Concent 34.2 g/dl RDW Standard Deviation 46.7 fL RDW Coefficient of Variation 13.4 % Platelet Count 81 K/uL Mean Platelet Volume 10.9 fL Sodium Level 138 mmol/L Potassium Level 4.0 mmol/L Chloride Level 105 mmol/L Carbon Dioxide Level 25 mmol/L Anion Gap 8.0 mmol/L Blood Urea Nitrogen 12 mg/dl Creatinine 0.63 mg/dl Est Creatinine Clear Calc Drug Dose 162.6 ml/min Estimated GFR () 128.6 Estimated GFR (Non- 110.9 BUN/Creatinine Ratio 18.6 Random Glucose 89 mg/dl Calcium Level 8.6 mg/dl Phosphorus Level 4.0 mg/dl Magnesium Level 2.1 mg/dl Lipase 96 U/L Assessment & Plan This is a 56 year old male with a PMH of alcohol dependence, hx. of withdrawal/ delirium tremens requiring intubation, hx. of paroxysmal atrial fibrillation, hx. of seizure disorder presents to the ER after a seizure episode. Delirium Tremens Hx of alcohol abuse Precedex drip discontinued Lorazepam PRN clinically stable was on gabapentin protocol Continue ICU monitor Will start PO thiamine, folic acid Seizure Non compliant with seizure meds Tapering phenobarbital Continue Depakote check Depakote level Seizure precaution Discussed with patient about to avoid any activity at high level No driving for at least 6 months or more free of seizure will need to follow up with neurology and neurology will let him know when he can drive EEG showed no evidence for potentially epileptogenic activity. Paroxysmal A. Fib Last admission pt was found to be in AFib with RVR Noncompliant with his Cardizem and amiodarone medications Not a good candidate for Coumadin due to non compliant/seizure/fall risk/ unsteady gait Sinus tachycardia on monitor Continue monitor LE Weakness Likely due to alcohol Continue PT/OT Fall precaution Thrombocytopenia Likely due to alcohol use No active bleeding Monitor platelet DVT ppx SCDs (due to thrombocytopenia) FULL CODE DISPOSITION Will transfer out of the ICU in am Consultants: Speech Therapist Neuro Current Inpatient Medications: Current Inpatient Medications Medications (Trade) Dose Ordered Sig/Rica Route Start Time Stop Time Status Last Admin Dose Admin Lorazepam (Ativan Tab) PRN Dosing -Active Protocol UD PRN PO 04/23/17 14:45 05/23/17 14:44 04/24/17 10:17 1 MG Nicotine (Nicoderm Cq 21MG Patch) 1 patch QAM TD 04/24/17 09:00 05/24/17 08:59 04/27/17 07:43 1 PATCH Miscellaneous (Remove Nicoderm Patch) 1 ea HS N/A 04/24/17 21:00 05/24/17 20:59 04/26/17 19:41 1 EA Diltiazem HCl (Cardizem Cd Cap) 120 mg DAILY PO 04/24/17 09:00 05/24/17 08:59 04/27/17 07:40 120 MG Divalproex Sodium (Depakote Delay Rel Tab) 125 mg TID PO 04/23/17 21:00 05/23/17 20:59 04/27/17 14:11 125 MG Divalproex Sodium (Depakote Delay Rel Tab) 500 mg TID PO 04/23/17 21:00 05/23/17 20:59 04/27/17 14:11 500 MG Ondansetron HCl (Zofran Inj) 4 mg Q6H PRN IV 04/23/17 15:15 05/23/17 15:14 Amiodarone HCl (Cordarone Tab) 200 mg BID PO 04/23/17 21:00 05/24/17 08:59 04/27/17 07:41 200 MG Dexmedetomidine HCl 400 mcg/ Sodium Chloride 100 ml @ 0 mls/hr Q0M PRN IV 04/24/17 18:45 04/28/17 13:53 04/27/17 05:03 20 MLS/HR Hydralazine HCl (HydrALAZINE INJ) 20 mg Q4H PRN IV. 04/24/17 18:45 05/24/17 18:44 04/25/17 22:20 20 MG Phenobarbital (Phenobarbital Tab) 64.8 mg Taper BID PO 04/25/17 09:00 04/29/17 08:59 04/27/17 07:48 64.8 MG Phenobarbital Sodium 260 mg/ Sodium Chloride 52 ml @ 312 mls/hr Q30M PRN IV 04/25/17 09:00 05/25/17 08:59 Phenobarbital Sodium 130 mg/ Sodium Chloride 51 ml @ 312 mls/hr Q30M PRN IV 04/25/17 09:15 05/25/17 09:14 04/27/17 03:46 312 MLS/HR Quetiapine Fumarate (seroQUEL TAB) 50 mg Q12 PO 04/26/17 09:00 05/26/17 08:59 04/27/17 07:42 50 MG Docusate Sodium (coLACE CAP) 100 mg BID PO 04/26/17 21:00 05/26/17 20:59 04/27/17 07:40 100 MG Polyethylene (Miralax Powder Packet) 17 gm DAILY PO 04/27/17 09:00 05/27/17 08:59 04/27/17 07:42 17 GM
[2017-04-27] MEDS ORDERED: ACETAMINOPHEN 325 MG TAB PO STA (20:55)
[2017-04-28] VITALS (10 sets, daily range): BP systolic 113–145; BP diastolic 64–91; PULSE 87–107; TEMP 36.6–37.2; O2SAT 98–99
[2017-04-28 05:59] LABS: MEAN CELL VOLUME 96.4 fL (80-100); MEAN CORPUSCULAR HEMOGLOBIN 32.3 pg (25-34); MEAN CORPUSCULAR HGB CONC 33.5 g/dl (32-36); RED BLOOD COUNT 4.15 M/uL (4.7-6.1); WHITE BLOOD COUNT 4.06 K/uL (4.8-10.8)
[2017-04-28 06:31] LABS: BUN/CREATININE RATIO 17.3 (10-20); CALCIUM 8.7 mg/dl (8.5-10.1); CREATININE 0.63 mg/dl (0.60-1.40); MAGNESIUM 2.3 mg/dl (1.8-2.4); POTASSIUM 3.9 mmol/L (3.5-5.1)
[2017-04-28 06:44] LABS: MEAN PLATELET VOLUME 10.5 fL (7.4-10.4); PLATELET COUNT 88 K/uL (130-400)
[2017-04-28 06:55] LABS: ALB/GLOB RATIO 0.8 (0.9-2); PHOSPHORUS 3.4 mg/dl (2.5-4.9)
[2017-04-28] MEDS: AMIODARONE 200 MG TAB PO SCH ×2 (08:14→20:34)
[2017-04-28] MEDS: QUETIAPINE FUMARATE 25 MG TAB PO SCH ×2 (08:14→20:35)
[2017-04-28] MEDS: DIVALPROEX DELAY REL TAB 125 MG TABEC PO SCH ×3 (08:14→20:34)
[2017-04-28] MEDS: DOCUSATE SODIUM 100 MG CAP PO SCH ×2 (08:14→20:36)
[2017-04-28] MEDS: NICOTINE 21 MG/24 HR TDSY TD SCH (08:14)
[2017-04-28] MEDS: DIVALPROEX SODIUM 500 MG DELAY RELEASE TAB PO SCH ×3 (08:15→20:34)
[2017-04-28] MEDS: POLYETHYLENE (MIRALAX) 17 GM PACK PO SCH (08:21)
[2017-04-28] MEDS: PHENOBARBITAL 32.4 MG TAB PO SCH ×2 (08:38→20:35)
[2017-04-28] MEDS: DILTIAZEM HCL 120 MG CAPCR PO SCH (08:38)
--- NOTE | 2017-04-28 10:41 | Critical Care Progress Note ---
Critical Care Progress Note Date of Service Apr 28, 2017. Attending Dr. Ospina Subjective Much improved today Has been of Precedex since yesterday No iv doses of phenobarbital since yesterday Ambulating well Objective GENERAL: Lying in bed, no acute distress, non-toxic HEAD: NC/AT EYES: Normal sclera and conjunctiva OROPHARYNX: No perioral cyanosis. No exudate, no erythema. Lips, buccal mucosa normal. Tongue laceration on left side, s/p suture repair. Mucous membranes are moist. NECK: Supple, no adenopathy, non-tender LUNGS: Normal chest wall mechanics. CTAB with good air entry. No rales, crackles , or wheezes HEART: RRR, S1 and S2 normal, no murmurs appreciated ABDOMEN: Soft, non-distended, normo-active bowel sounds, no masses, no rebound or guarding. SKIN: Warm, pink, dry. No erythema, rashes. Bruising on arm and torso from previous falls EXTREMITIES: Grossly normal. No pitting edema. Calves supple. NEURO: Alert. No focal deficits. Cranial nerves II-XII grossly intact PSYCH: Calm today. Current SOFA Score SOFA Score Response (Comments) Value Platelets (x10) < 100 2 Bilirubin (mg/dL) 1.2 - 1.9 1 Do Coma Score 15 0 Level of Hypotension No Hypotension 0 Creatinine (mg/dL) < 1.2 0 Total 3 Assessment & Plan Patient with chronic alcohol abuse, prior withdrawal seizures, known to us from long hospital stay with intubation, came to ED after suspected seizures, associated with tongue biting requiring sutures. States that he quit drinking few days ago. Fell few days ago sustaining a bruise on the left arm and left flank. Now in alcohol withdrawal. Not taking his meds (Depakote, amiodarone) Problems: Delirium tremens Alcohol withdrawal seizure Paroxysmal atrial fibrillation Plan: On Ativan prn and gabapentin per protocol. Phenobarbital taper. prn iv phenobarbital, not requiring any further doses Off Precedex Continue Depakote. Thiamine, folate, MVI in "banana bag" Continue amiodarone and diltiazem Not an anticoagulation candidate in my opinion, prone to traumas (already has ecchymosis from falling) Critical care time spent with the patient, reviewing the chart, greater than 25 minutes DVT prophylaxis: SCD, no anticoagulation secondary to ecchymosis/hematoma on the forearm, risk of falling May be transferred to regular floor Documented By: Morales Ospina MD Consults & Procedures Consultants: Critical care Mental health Neurology Procedures: None Data Medications: Current Inpatient Medications Medications (Trade) Dose Ordered Sig/Rica Route Start Time Stop Time Status Last Admin Dose Admin Lorazepam (Ativan Tab) PRN Dosing -Active Protocol UD PRN PO 04/23/17 14:45 05/23/17 14:44 04/24/17 10:17 1 MG Nicotine (Nicoderm Cq 21MG Patch) 1 patch QAM TD 04/24/17 09:00 05/24/17 08:59 04/28/17 08:14 1 PATCH Miscellaneous (Remove Nicoderm Patch) 1 ea HS N/A 04/24/17 21:00 05/24/17 20:59 04/27/17 20:11 1 EA Diltiazem HCl (Cardizem Cd Cap) 120 mg DAILY PO 04/24/17 09:00 05/24/17 08:59 04/28/17 08:38 120 MG Divalproex Sodium (Depakote Delay Rel Tab) 125 mg TID PO 04/23/17 21:00 05/23/17 20:59 04/28/17 08:14 125 MG Divalproex Sodium (Depakote Delay Rel Tab) 500 mg TID PO 04/23/17 21:00 05/23/17 20:59 04/28/17 08:15 500 MG Ondansetron HCl (Zofran Inj) 4 mg Q6H PRN IV 04/23/17 15:15 05/23/17 15:14 Amiodarone HCl (Cordarone Tab) 200 mg BID PO 04/23/17 21:00 05/24/17 08:59 04/28/17 08:14 200 MG Dexmedetomidine HCl 400 mcg/ Sodium Chloride 100 ml @ 0 mls/hr Q0M PRN IV 04/24/17 18:45 04/28/17 13:53 04/27/17 05:03 20 MLS/HR Hydralazine HCl (HydrALAZINE INJ) 20 mg Q4H PRN IV. 04/24/17 18:45 05/24/17 18:44 04/25/17 22:20 20 MG Phenobarbital (Phenobarbital Tab) 32.4 mg Taper BID PO 04/25/17 09:00 04/29/17 08:59 04/28/17 08:38 32.4 MG Phenobarbital Sodium 260 mg/ Sodium Chloride 52 ml @ 312 mls/hr Q30M PRN IV 04/25/17 09:00 05/25/17 08:59 Phenobarbital Sodium 130 mg/ Sodium Chloride 51 ml @ 312 mls/hr Q30M PRN IV 04/25/17 09:15 05/25/17 09:14 04/27/17 03:46 312 MLS/HR Quetiapine Fumarate (seroQUEL TAB) 50 mg Q12 PO 04/26/17 09:00 05/26/17 08:59 04/28/17 08:14 50 MG Docusate Sodium (coLACE CAP) 100 mg BID PO 04/26/17 21:00 05/26/17 20:59 04/28/17 08:14 100 MG Polyethylene (Miralax Powder Packet) 17 gm DAILY PO 04/27/17 09:00 05/27/17 08:59 04/28/17 08:21 17 GM Vital Signs: Date Time Temp Pulse Resp B/P (MAP) Pulse Ox O2 Delivery O2 Flow Rate FiO2 04/28/17 08:00 Room Air 04/28/17 08:00 37.0 94 18 113/82 (92) 98 Room Air 04/28/17 05:00 97 18 04/28/17 04:39 98 18 125/89 (101) 04/28/17 04:12 Room Air 04/28/17 04:00 37.2 88 18 125/89 (101) Room Air 04/28/17 03:00 87 18 04/28/17 03:00 87 18 04/28/17 02:00 90 18 04/28/17 00:13 Room Air 04/28/17 00:00 37.2 92 18 121/64 (83) Room Air 04/27/17 20:00 Room Air 04/27/17 19:17 37.1 111 18 134/75 (94) 98 Room Air 04/27/17 18:35 108 16 152/107 (122) 99 Room Air 04/27/17 18:00 111 18 92 Room Air 04/27/17 16:00 112 20 137/95 (109) 95 Room Air 04/27/17 16:00 94 Room Air 04/27/17 14:00 105 18 137/95 (109) 95 Room Air 04/27/17 12:00 92 18 105/82 (90) 93 Room Air 04/27/17 12:00 95 Room Air Laboratory Results: Last 24 Hours Test 04/28/17 05:30 White Blood Count 4.06 K/uL Red Blood Count 4.15 M/uL Hemoglobin 13.4 g/dL Hematocrit 40.0 % Mean Corpuscular Volume 96.4 fL Mean Corpuscular Hemoglobin 32.3 pg Mean Corpuscular Hemoglobin Concent 33.5 g/dl RDW Standard Deviation 47.3 fL RDW Coefficient of Variation 13.4 % Platelet Count 88 K/uL Mean Platelet Volume 10.5 fL Sodium Level 139 mmol/L Potassium Level 3.9 mmol/L Chloride Level 104 mmol/L Carbon Dioxide Level 28 mmol/L Anion Gap 7.0 mmol/L Blood Urea Nitrogen 11 mg/dl Creatinine 0.63 mg/dl Est Creatinine Clear Calc Drug Dose 132.9 ml/min Estimated GFR () 128.6 Estimated GFR (Non- 110.9 BUN/Creatinine Ratio 17.3 Random Glucose 92 mg/dl Calcium Level 8.7 mg/dl Phosphorus Level 3.4 mg/dl Magnesium Level 2.3 mg/dl Total Bilirubin 0.8 mg/dl Aspartate Amino Transf (AST/SGOT) 28 U/L Alanine Aminotransferase (ALT/SGPT) 36 U/L Alkaline Phosphatase 110 U/L Total Protein 7.1 gm/dl Albumin 3.2 gm/dl Globulin 3.9 gm/dl Albumin/Globulin Ratio 0.8 Lipase 156 U/L
--- NOTE | 2017-04-28 17:51 | Progress Note ---
Medicine Progress Note Date & Time of Visit: Apr 28, 2017 at 16:10 Subjective Pt was seen and examined Lying in bed with no distress with 1 to 1 sitter Pt said that he feels good He is watching the [employer] football game Denies any chest pain, palpitation, dizziness and SOB Objective Last 8 Hrs Date Time Temp Pulse Resp B/P (MAP) Pulse Ox O2 Delivery O2 Flow Rate FiO2 04/28/17 12:00 Room Air 04/28/17 12:00 37.0 102 18 121/89 (100) 98 Room Air Physical Exam: General- No acute distress Head- atraumatic Eyes- PERRL, EOMI ENT- oropharynx clear Neck- no JVD Lungs- clear to auscultation Heart- Tachycardia Abdomen- normal bowel sounds, soft Extremities- no pretibial edema, no calf tenderness Neuro- alert, oriented, PERRL, EOMI Skin- warm & dry Laboratory Results: Last 24 Hours Test 04/28/17 05:30 White Blood Count 4.06 K/uL Red Blood Count 4.15 M/uL Hemoglobin 13.4 g/dL Hematocrit 40.0 % Mean Corpuscular Volume 96.4 fL Mean Corpuscular Hemoglobin 32.3 pg Mean Corpuscular Hemoglobin Concent 33.5 g/dl RDW Standard Deviation 47.3 fL RDW Coefficient of Variation 13.4 % Platelet Count 88 K/uL Mean Platelet Volume 10.5 fL Sodium Level 139 mmol/L Potassium Level 3.9 mmol/L Chloride Level 104 mmol/L Carbon Dioxide Level 28 mmol/L Anion Gap 7.0 mmol/L Blood Urea Nitrogen 11 mg/dl Creatinine 0.63 mg/dl Est Creatinine Clear Calc Drug Dose 132.9 ml/min Estimated GFR () 128.6 Estimated GFR (Non- 110.9 BUN/Creatinine Ratio 17.3 Random Glucose 92 mg/dl Calcium Level 8.7 mg/dl Phosphorus Level 3.4 mg/dl Magnesium Level 2.3 mg/dl Total Bilirubin 0.8 mg/dl Aspartate Amino Transf (AST/SGOT) 28 U/L Alanine Aminotransferase (ALT/SGPT) 36 U/L Alkaline Phosphatase 110 U/L Total Protein 7.1 gm/dl Albumin 3.2 gm/dl Globulin 3.9 gm/dl Albumin/Globulin Ratio 0.8 Lipase 156 U/L Assessment & Plan This is a 56 year old male with a PMH of alcohol dependence, hx. of withdrawal/ delirium tremens requiring intubation, hx. of paroxysmal atrial fibrillation, hx. of seizure disorder presents to the ER after a seizure episode. Delirium Tremens Hx of alcohol abuse Precedex drip discontinued Lorazepam PRN clinically stable was on gabapentin protocol Starting PO thiamine, folic acid Clinically stable D/C ICU monitor Seizure Non compliant with seizure meds Tapering phenobarbital Continue Depakote check Depakote level in am Seizure precaution Discussed with patient about to avoid any activity at high level No driving for at least 6 months or more free of seizure will need to follow up with neurology and neurology will let him know when he can drive EEG showed no evidence for potentially epileptogenic activity. Paroxysmal A. Fib Last admission pt was found to be in AFib with RVR Noncompliant with his Cardizem and amiodarone medications Not a good candidate for Coumadin due to non compliant/seizure/fall risk/ unsteady gait Sinus tachycardia on monitor Continue monitor LE Weakness Likely due to alcohol Continue PT/OT Fall precaution Thrombocytopenia Likely due to alcohol use Platelet improved to 88 No active bleeding Monitor platelet DVT ppx SCDs (due to thrombocytopenia) FULL CODE DISPOSITION Transfer to medically Consultants: Hand Developer Neuro Current Inpatient Medications: Current Inpatient Medications Medications (Trade) Dose Ordered Sig/Rica Route Start Time Stop Time Status Last Admin Dose Admin Nicotine (Nicoderm Cq 21MG Patch) 1 patch QAM TD 04/24/17 09:00 05/24/17 08:59 04/28/17 08:14 1 PATCH Miscellaneous (Remove Nicoderm Patch) 1 ea HS N/A 04/24/17 21:00 05/24/17 20:59 04/27/17 20:11 1 EA Diltiazem HCl (Cardizem Cd Cap) 120 mg DAILY PO 04/24/17 09:00 05/24/17 08:59 04/28/17 08:38 120 MG Divalproex Sodium (Depakote Delay Rel Tab) 125 mg TID PO 04/23/17 21:00 05/23/17 20:59 04/28/17 14:02 125 MG Divalproex Sodium (Depakote Delay Rel Tab) 500 mg TID PO 04/23/17 21:00 05/23/17 20:59 04/28/17 14:02 500 MG Ondansetron HCl (Zofran Inj) 4 mg Q6H PRN IV 04/23/17 15:15 05/23/17 15:14 Amiodarone HCl (Cordarone Tab) 200 mg BID PO 04/23/17 21:00 05/24/17 08:59 04/28/17 08:14 200 MG Hydralazine HCl (HydrALAZINE INJ) 20 mg Q4H PRN IV. 04/24/17 18:45 05/24/17 18:44 04/25/17 22:20 20 MG Phenobarbital (Phenobarbital Tab) 32.4 mg Taper BID PO 04/25/17 09:00 04/29/17 08:59 04/28/17 08:38 32.4 MG Phenobarbital Sodium 260 mg/ Sodium Chloride 52 ml @ 312 mls/hr Q30M PRN IV 04/25/17 09:00 05/25/17 08:59 Phenobarbital Sodium 130 mg/ Sodium Chloride 51 ml @ 312 mls/hr Q30M PRN IV 04/25/17 09:15 05/25/17 09:14 04/27/17 03:46 312 MLS/HR Quetiapine Fumarate (seroQUEL TAB) 50 mg Q12 PO 04/26/17 09:00 05/26/17 08:59 04/28/17 08:14 50 MG Docusate Sodium (coLACE CAP) 100 mg BID PO 04/26/17 21:00 05/26/17 20:59 04/28/17 08:14 100 MG Polyethylene (Miralax Powder Packet) 17 gm DAILY PO 04/27/17 09:00 05/27/17 08:59 04/28/17 08:21 17 GM
[2017-04-28] MEDS: THIAMINE HCL 100 MG TAB PO SCH (20:35)
[2017-04-29 07:21] VITALS: BP 154/90; PULSE 91; TEMP 36.7; O2SAT 97
[2017-04-29] MEDS: THIAMINE HCL 100 MG TAB PO SCH (07:22)
[2017-04-29] MEDS: AMIODARONE 200 MG TAB PO SCH (07:22)
[2017-04-29] MEDS: DIVALPROEX DELAY REL TAB 125 MG TABEC PO SCH (07:22)
[2017-04-29] MEDS: DOCUSATE SODIUM 100 MG CAP PO SCH (07:22)
[2017-04-29] MEDS: QUETIAPINE FUMARATE 25 MG TAB PO SCH (07:22)
[2017-04-29] MEDS: DIVALPROEX SODIUM 500 MG DELAY RELEASE TAB PO SCH (07:22)
[2017-04-29] MEDS: DILTIAZEM HCL 120 MG CAPCR PO SCH (07:23)
[2017-04-29] MEDS: NICOTINE 21 MG/24 HR TDSY TD SCH (07:23)
[2017-04-29] MEDS: POLYETHYLENE (MIRALAX) 17 GM PACK PO SCH ×2 (07:23→07:25)
[2017-04-29] MEDS: PHENOBARBITAL 32.4 MG TAB PO SCH (07:23)
[2017-04-29 08:00] VITALS: O2SAT 97
[2017-04-29 09:28] VITALS: BP 154/90; PULSE 91; TEMP 36.7; O2SAT 97
[2017-04-29] MEDS ORDERED: DILT120C PO (10:38)
[2017-04-29] MEDS ORDERED: CRD200 PO (10:38)
[2017-04-29] MEDS ORDERED: DIVA500T59 PO (10:38)
[2017-04-29] MEDS ORDERED: FLV1 PO (10:38)
[2017-04-29] MEDS ORDERED: DIVA125T18 PO (10:38)
[2017-04-29] MEDS ORDERED: THM100 PO (10:38)
[2017-04-29] MEDS ORDERED: QUET5TAB PO (10:38)
--- NOTE | 2017-04-29 10:49 | Discharge Instructions ---
Discharge Instructions Date of Service Apr 29, 2017. Admission Reason for Admission: Alcohol Withdrawal, Dts Discharge Discharge Diagnosis / Problem: Delirium Tremens, Seizure, Paroxysmal A. Fib, LE weakness, Thrombocytopenia Discharge Goals Goal(s): Decrease discomfort, Increase independence, Improve disease control Activity Recommendations Activity Limitations: resume your previous activity (as tolerated) . Instructions / Follow-Up Instructions / Follow-Up Follow up with your primary care provider Dr. Beltre on 05/07 @ 1:45 pm Follow up with neurology Wilfredo JACK on 05/10 @ 1:25 pm Check Depakote level in 1 week Counseling on alcohol cessation Fall precaution No high level activity Seizure precautions Continue PT/OT (script order given to patient) No driving for now until ok with neurology to drive Current Hospital Diet Patient's current hospital diet: Regular Diet Discharge Diet Recommended Diet: Regular Diet Pending Studies Studies pending at discharge: no Medical Emergencies . Who to Call and When: Medical Emergencies: If at any time you feel your situation is an emergency, please call 911 immediately. . Non-Emergent Contact Non-Emergency issues call your: Primary Care Provider, Neurologist Call Non-Emergent contact if: you have any medication questions . . "Provider Documentation" section prepared by Mitchell Canales. . VTE Core Measure Inpt VTE Proph given/why not?: SCD's
--- NOTE | 2017-04-29 11:23 | Progress Note ---
Medicine Progress Note Date & Time of Visit: Apr 29, 2017 at 10:20 Subjective Pt was seen and examined Sitting in chair with no distress Pt said that he is ready to go home today He said that he feels fine Pt refuses inpatient physical therapy Pt said that he will be staying with his sister in [place] Denies any chest pain, palpitation, dizziness and SOB Objective Last 8 Hrs Date Time Temp Pulse Resp B/P (MAP) Pulse Ox O2 Delivery O2 Flow Rate FiO2 04/29/17 09:28 36.7 91 18 97 Room Air 04/29/17 08:00 97 Room Air 04/29/17 07:21 36.7 91 18 154/90 (111) 97 Room Air Physical Exam: General- No acute distress Head- atraumatic Eyes- PERRL, EOMI ENT- oropharynx clear Neck- no JVD Lungs- clear to auscultation Heart- Tachycardia Abdomen- normal bowel sounds, soft Extremities- no pretibial edema, no calf tenderness Neuro- alert, oriented, PERRL, EOMI Skin- warm & dry Laboratory Results: Last 24 Hours Test 04/29/17 05:31 04/29/17 08:01 Valproic Acid (Depakene) Level 91 mcg/ml Bedside Glucose 127 mg/dl Assessment & Plan This is a 56 year old male with a PMH of alcohol dependence, hx. of withdrawal/ delirium tremens requiring intubation, hx. of paroxysmal atrial fibrillation, hx. of seizure disorder presents to the ER after a seizure episode. Delirium Tremens Hx of alcohol abuse Precedex drip discontinued Lorazepam PRN clinically stable was on gabapentin protocol Continue oral thiamine, folic acid Clinically stable D/C ICU monitor Seizure Non compliant with seizure meds Tapering phenobarbital Continue Depakote check Depakote level in am Seizure precaution Discussed with patient about to avoid any activity at high level No driving for at least 6 months or more free of seizure Follow up appointment with neurology Sharon and Neurology will let him know when he is OK to drive EEG showed no evidence for potentially epileptogenic activity. Depakote level today 91 Fall precaution No high level activity Paroxysmal A. Fib Last admission pt was found to be in AFib with RVR Noncompliant with his Cardizem and amiodarone medications Not a good candidate for Coumadin due to non compliant/seizure/fall risk/ unsteady gait Sinus tachycardia on monitor Continue Cardizem and Amiodarone Stable LE Weakness Likely due to alcohol Continue PT/OT (script given for outpatient physical therapy) Fall precaution Refused inpatient rehab Thrombocytopenia Likely due to alcohol use Platelet improved to 88 yesterday No active bleeding Monitor platelet DVT ppx SCDs (due to thrombocytopenia) FULL CODE DISPOSITION Discharge to his sister home today Follow up with PCP Dr. Beltre on 05/07 @ 1:45 pm Follow up with Neurology Dr. Villalobos on 05/10 @ 1:25 pm Continue Physical therapy Check Depakote level in 1 week Consultants: Neon Sign Servicer Neuro Current Inpatient Medications: Current Inpatient Medications Medications (Trade) Dose Ordered Sig/Rica Route Start Time Stop Time Status Last Admin Dose Admin Nicotine (Nicoderm Cq 21MG Patch) 1 patch QAM TD 04/24/17 09:00 05/24/17 08:59 04/29/17 07:23 1 PATCH Miscellaneous (Remove Nicoderm Patch) 1 ea HS N/A 04/24/17 21:00 05/24/17 20:59 04/28/17 20:35 1 EA Diltiazem HCl (Cardizem Cd Cap) 120 mg DAILY PO 04/24/17 09:00 05/24/17 08:59 04/29/17 07:23 120 MG Divalproex Sodium (Depakote Delay Rel Tab) 125 mg TID PO 04/23/17 21:00 05/23/17 20:59 04/29/17 07:22 125 MG Divalproex Sodium (Depakote Delay Rel Tab) 500 mg TID PO 04/23/17 21:00 05/23/17 20:59 04/29/17 07:22 500 MG Ondansetron HCl (Zofran Inj) 4 mg Q6H PRN IV 04/23/17 15:15 05/23/17 15:14 Amiodarone HCl (Cordarone Tab) 200 mg BID PO 04/23/17 21:00 05/24/17 08:59 04/29/17 07:22 200 MG Hydralazine HCl (HydrALAZINE INJ) 20 mg Q4H PRN IV. 04/24/17 18:45 05/24/17 18:44 04/25/17 22:20 20 MG Quetiapine Fumarate (seroQUEL TAB) 50 mg Q12 PO 04/26/17 09:00 12/16/17 08:59 04/29/17 07:22 50 MG Docusate Sodium (coLACE CAP) 100 mg BID PO 04/26/17 21:00 05/26/17 20:59 04/29/17 07:22 100 MG Polyethylene (Miralax Powder Packet) 17 gm DAILY PO 04/27/17 09:00 05/27/17 08:59 04/28/17 08:21 17 GM Folic Acid (Folvite Tab) 1 mg QAM PO 04/28/17 21:00 05/28/17 20:59 04/29/17 07:23 1 MG Thiamine HCl (Vitamin B-1 Tab) 100 mg QAM PO 04/28/17 21:00 05/28/17 20:59 04/29/17 07:22 100 MG
--- NOTE | 2017-05-02 08:00 | Discharge Summary ---
Discharge Summary Date of Service May 02, 2017. Discharge Summary Admission Date: Apr 23, 2017 at 14:44 Discharge Date: Apr 29, 2017 Discharge Disposition: Home Principal Diagnosis: Delirium Tremens Secondary Diagnoses/Problems: Seizure Paroxysmal A. Fib LE weakness Thrombocytopenia Procedures: CT HEAD WITHOUT CONTRAST (CT) CLINICAL HISTORY: seizure COMPARISON STUDY: 10/26/2016 TECHNIQUE: Axial CT of the brain is performed from the vertex to the skull base. IV contrast was not administered for this examination. A dose lowering technique was utilized adhering to the principles of ALARA. CT DOSE: 614.27 mGy.cm FINDINGS: No intra or extra-axial mass lesions are visualized. There is no CT evidence of acute cortical infarction. There is no evidence of midline shift. There is no acute hemorrhage. No calvarial fractures are visualized. There are patchy white matter hypodensities likely on a small vessel basis. There are atrophic changes with commensurate ventricular prominence. There is a right axilla sinus polyp/retention cyst similar to the prior study IMPRESSION: No acute intracranial findings Electronically signed by: Jose Villanueva M.D. 04/23/2017 1:38 PM Dictated Date/Time: 04/23/2017 1:37 PM CHEST ONE VIEW PORTABLE CLINICAL HISTORY: seizure COMPARISON STUDY: 11/19/2016 FINDINGS: The cardiac and mediastinal contours are normal. There is no evidence of focal pulmonary consolidation. There is no evidence of failure. No pleural effusions are visualized.[ There are old left-sided rib fractures. IMPRESSION: No active disease in the chest. Electronically signed by: Jose Villanueva M.D. 04/23/2017 1:33 PM Dictated Date/Time: 04/23/2017 1:32 PM [~ rep ct add3]] L FOREARM 2 VIEWS ROUTINE CLINICAL HISTORY: Bruising, swelling. COMPARISON: None FINDINGS: No acute fracture of the left radius or ulna is identified. An IV is incidentally noted. Soft tissue swelling of the dorsal aspect of the left forearm is noted. IMPRESSION: No acute fracture of the left radius or ulna. Electronically signed by: Salomón Villalobos M.D. 04/23/2017 6:52 PM Dictated Date/Time: 04/23/2017 6:50 PM Consultations: Aircraft [employer] Neuro Medication Reconciliation New Medications: Folic Acid (Folic Acid) 1 Mg Tab 1 MG PO QAM for 30 Days, TAB Quetiapine Fumarate (Seroquel) 50 Mg Tab 50 MG PO BID for 30 Days, TAB Thiamine HCl (Vitamin B-1) 100 Mg Tab 100 MG PO QAM for 30 Days, TAB Changed Medications: Divalproex Sodium (Depakote) 125 Mg Tab 1 TAB PO TID for 30 Days (Medication details modified) take with the 500mg Divalproex Sodium (Depakote) 500 Mg Tab 1 TAB PO TID for 30 Days, #90 TAB 1 Refill (Medication details modified) take with the 125mg Continued Medications: Amiodarone HCl (Amiodarone HCl) 200 Mg Tab 200 MG PO BID for 30 Days, TAB (This prescription has been renewed) Diltiazem Hcl Coated Beads (Diltiazem Hcl Er) 120 Mg Cap 1 CAP PO DAILY for 30 Days, CAP 1 Refill (This prescription has been renewed) Admission Information HPI (per Admitting provider): This is a 56yo M with a PMH of alcohol abuse, tobacco abuse, seizure disorder, thrombocytopenia and paroxysmal A fib who presents after 2 seizures since yesterday. Has a history of alcohol abuse over the past 40 years but states that he has been cutting use down to 3 6-packs a week over the past few months. Patient's last drank was 3 days ago. The first seizure-like episode was unwitnessed last night and only lasted for a few minutes, per patient. Today, he had a more severe episode of body shakes with associated throbbing headache that lasted about an hour. Patient experienced urinary incontinence and bit his tongue. States that his girlfriend came home from work to check on him and witnessed the event. During transport by EMS to ED, patient was nauseous and had 2 vomiting episodes. Denies auditory, visual hallucinations. Denies any fever, chills, confusion, CP, palpitations, SOB, hematemesis, dysuria, diarrhea , LE swelling. Has a significant bruise on his L forearm from a fall 4 days ago. Endorses a history of seizures. Knows that at least one seizure occurred during a time of alcohol withdrawal that occurred 5 years ago. Was admitted in October- November of this year for management of alcohol withdrawal that required intubation. Was discharged on Depakote, amlodipine and diltiazem but has not been taking these lately. In the ER, patient is tachycardic but stable. Is A&Ox3. Had ripped out his IV prior to my exam. Became agitated and tried to climb out of bed to use the restroom but was otherwise cooperative. Has not had any seizure like activity while in ED. He received 4mg of IV Ativan total along with IVF resuscitation. Physical Exam (per Admitting): General Appearance: + moderate distress (tremulous with bouts of agitation ) , + pertinent finding (Chronically ill) Head: normocephalic, atraumatic Eyes: normal inspection, PERRL, sclerae normal (conjunctiva normal ) ENT: hearing grossly normal, pharynx normal, + pertinent finding (Tongue with a 3cm laceration on L frontal aspect. 4 sutures placed, no active bleeding. Surrounding edema.) Neck: supple, no JVD, trachea midline Respiratory/Chest: chest non-tender, lungs clear, normal breath sounds, no respiratory distress, no accessory muscle use Cardiovascular: no murmur, normal peripheral pulses, + tachycardia Abdomen/GI: normal bowel sounds, non tender, soft, no organomegaly Back: normal inspection Extremities/Musculoskelatal: no calf tenderness, no pedal edema, + pertinent finding (Large contusion on L forearm with associated edema. +TTP ) Neurologic/Psych: no motor/sensory deficits, alert, normal mood/affect, oriented x 3, + pertinent finding (Intermittent agitation but otherwise cooperative) Skin: normal color Hospital Course This is a 56 year old male with a PMH of alcohol dependence, hx. of withdrawal/ delirium tremens requiring intubation, hx. of paroxysmal atrial fibrillation, hx. of seizure disorder presents to the ER after a seizure episode. Delirium Tremens Hx of alcohol abuse Precedex drip discontinued Lorazepam PRN clinically stable was on gabapentin protocol Continue oral thiamine, folic acid Clinically stable D/C ICU monitor Seizure Non compliant with seizure meds Tapering phenobarbital Continue Depakote check Depakote level in am Seizure precaution Discussed with patient about to avoid any activity at high level No driving for at least 6 months or more free of seizure Follow up appointment with neurology Sharon and Neurology will let him know when he is OK to drive EEG showed no evidence for potentially epileptogenic activity. Depakote level today 91 Fall precaution No high level activity Paroxysmal A. Fib Last admission pt was found to be in AFib with RVR Noncompliant with his Cardizem and amiodarone medications Not a good candidate for Coumadin due to non compliant/seizure/fall risk/ unsteady gait Sinus tachycardia on monitor Continue Cardizem and Amiodarone Stable LE Weakness Likely due to alcohol Continue PT/OT (script given for outpatient physical therapy) Fall precaution Refused inpatient rehab Thrombocytopenia Likely due to alcohol use Platelet improved to 88 yesterday No active bleeding Monitor platelet DVT ppx SCDs (due to thrombocytopenia) FULL CODE DISPOSITION Discharge to his sister home today Follow up with PCP Dr. Beltre on 05/07 @ 1:45 pm Follow up with Neurology Dr. Villalobos on 05/10 @ 1:25 pm Continue Physical therapy Check Depakote level in 1 week Total time spent on discharge = 35 minutes This includes examination of the patient, discharge planning, medication reconciliation, and communication with other providers. Discharge Instructions Discharge Instructions Date of Service Apr 29, 2017. Admission Reason for Admission: Alcohol Withdrawal, Dts Discharge Discharge Diagnosis / Problem: Delirium Tremens, Seizure, Paroxysmal A. Fib, LE weakness, Thrombocytopenia Discharge Goals Goal(s): Decrease discomfort, Increase independence, Improve disease control Activity Recommendations Activity Limitations: resume your previous activity (as tolerated) . Instructions / Follow-Up Instructions / Follow-Up Follow up with your primary care provider Dr. Beltre on 05/07 @ 1:45 pm Follow up with neurology Wilfredo JACK on 05/10 @ 1:25 pm Check Depakote level in 1 week Counseling on alcohol cessation Fall precaution No high level activity Seizure precautions Continue PT/OT (script order given to patient) No driving for now until ok with neurology to drive Current Hospital Diet Patient's current hospital diet: Regular Diet Discharge Diet Recommended Diet: Regular Diet Pending Studies Studies pending at discharge: no Medical Emergencies . Who to Call and When: Medical Emergencies: If at any time you feel your situation is an emergency, please call 911 immediately. . Non-Emergent Contact Non-Emergency issues call your: Primary Care Provider, Neurologist Call Non-Emergent contact if: you have any medication questions . . "Provider Documentation" section prepared by Mitchell Canales. . VTE Core Measure Inpt VTE Proph given/why not?: SCD's Additional Copies To Misha Beltre M.D. (MEDICAL)
== END 2017-04-29 11:15 | disposition home or self-care (01) | DRG 897 ==
LOC: EDBD 12:17 → C.EDA 12:18 → C.MSICU 14:44 → ENRESERV 15:00 → CANBEDREQ 04-28 15:48 → ENRESERV 04-28 17:00 → C.4E 04-28 17:43
PROVIDERS: ADMIT Family Medicine; ATTEND Internal Medicine
PROC: 0CQ7XZZ Repair Tongue, External Approach (ICD-10-PCS; principal; 2017-04-23)
DX: F10.231 Alcohol dependence with withdrawal delirium (principal); E87.2 Acidosis; G40.909 Epilepsy, unspecified, not intractable, without status epilepticus; D69.59 Other secondary thrombocytopenia; I48.0 Paroxysmal atrial fibrillation; E87.6 Hypokalemia; S01.512A Laceration without foreign body of oral cavity, initial encounter; X58.XXXA Exposure to other specified factors, initial encounter; S50.12XA Contusion of left forearm, initial encounter; W19.XXXA Unspecified fall, initial encounter; F17.200 Nicotine dependence, unspecified, uncomplicated; Z91.14 Patient's other noncompliance with medication regimen; Z79.899 Other long term (current) drug therapy; Z82.49 Family history of ischemic heart disease and other diseases of the circulatory system; Z80.0 Family history of malignant neoplasm of digestive organs

== ENCOUNTER 2017-12-19 01:12 | Inpatient (IN) | payer OTHER ==
[2017-12-19] VITALS (7 sets, daily range): BP systolic 116–128; BP diastolic 72–85; PULSE 76–106; TEMP 36.5–37.1; O2SAT 95–97; Ht 193 cm; Wt 90.2 kg
[~2017-12-19] VITALS: Ht 193 cm; Wt 90.2 kg
[~2017-12-19 01:12] MED LIST changes: -CLC100 PO; -CNT PO; -CRD200 PO; -CTP1X PO; +DILT-202 PO; +DIPH-384 PO; -DIVA1CAP2 PO; -DLCSR120 PO; +KPP/1000 PO; -NICO21DI4 TD; -NRN300 PO; +QUET1TAB32 PO; -SNK PO; +THIA100T27 PO; -THM100 PO; -VTMD1000 PO
[2017-12-19] MEDS ORDERED: SODIUM CHLORIDE 0.9% 1000ML 1,000 ML IV STA ×2 (01:31→03:30)
--- NOTE | 2017-12-19 01:37 | EMERGENCY ROOM VISIT NOTE ---
History Report prepared by Dorothy: Giuseppe Hines Under the Supervision of: Dr. Estephanie Castaneda D.O. First contact with patient: 01:21 Chief Complaint: SEIZURE Stated Complaint: SEIZURE/ALCOHOL OVERDOSE Nursing Triage Summary: Pt reports seizures this evening, not sure how many. Pt had 3 beers today. States he fell this evening [id number], states "back is busted up a little bit but no big deal". Pain in neck since the fall. History of Present Illness The patient is a 57 year old male who presents to the Emergency Room with complaints of multiple episodes of seizures occurring today. The patient states that he has a history of seizures. He notes that he started having seizures when he was 53, but reports that he has no prior injuries or head trauma that would have caused him to develop seizures. The patient states that before today , his last seizure was 1-2 weeks ago. He notes that he had three seizures today which has been his worst day in quite a while. He reports that his last seizure was four hours ago. The patient states that his brother saw him have his third seizure today, and he notes that he fell onto the floor after having the seizure. He reports that his brother called EMS because "he knew the last one was really bad and he was scared." The patient states that he does not know what triggers his seizures. He notes that he typically feels weak and tired after he has a seizure, but he reports that he currently feels pretty good. He denies any fever, vomiting, diarrhea, and recent illness. The patient states that he has not missed any dosages of his medication. He notes that he used to drink alcohol, but he reports that he no longer drinks because of his medication. The patient states that he does not have a family history of seizures. Pt denies any injury from his fall/possible seizure today. States his first episode today he felt lightheaded prior to and so he sat down. Source of History: patient Onset: today Position: other (generalized) Quality: other (seizures) Timing: other (multiple episodes) Associated Symptoms: No fevers, No vomiting, No diarrhea Review of Systems See HPI for pertinent positives & negatives. A total of 10 systems reviewed and were otherwise negative. Past Medical & Surgical Medical Problems: (1) Alcohol abuse (2) History of traumatic brain injury (3) Malnutrition related to chronic disease (4) Mood disorder (5) PAF (paroxysmal atrial fibrillation) (6) Seizure (7) Thrombocytopenia (8) Tobacco abuse (9) Transaminitis Surgical Problems: (1) Hx of colonoscopy Family History FH: cancer MOTHER (pancreatic CA ) FH: heart disease FATHER ([place] age 68 ) Social History Smoking Status: Former Smoker Alcohol Use: heavy Drug Use: none, other Marital Status: Housing Status: lives alone Occupation Status: unemployed Current/Historical Medications Scheduled Diltiazem HCl (Diltiazem Cd), 120 MG PO QAM Folic Acid (Folic Acid), 1 MG PO QAM Levetiracetam (Keppra), 1,000 MG PO Q12 Quetiapine Fumarate (Seroquel), 50 MG PO DAILY Thiamine HCl (Vitamin B-1), 100 MG PO QAM Scheduled PRN Diphenhydramine Hcl (Allergy), 25 MG PO UD PRN for Allergy Symptoms Allergies Coded Allergies: Ibuprofen (Unverified Allergy, Unknown, FACIAL SWELLING, 12/19/17) Physical Exam Vital Signs Date Time Temp Pulse Resp B/P (MAP) Pulse Ox O2 Delivery O2 Flow Rate FiO2 12/19/17 09:33 114 22 115/79 97 Room Air 12/19/17 08:14 99 18 101/75 99 Room Air 12/19/17 06:52 94 18 110/73 94 Room Air 12/19/17 06:30 88 12/19/17 05:59 91 18 117/78 96 Room Air 12/19/17 04:33 101 18 142/74 95 Room Air 12/19/17 03:08 103 18 117/87 97 Room Air 12/19/17 01:52 86 24 93 12/19/17 01:42 95 17 96 12/19/17 01:32 97 16 96 12/19/17 01:22 95 21 95 Room Air 12/19/17 01:18 97 12/19/17 01:17 36.5 95 23 132/94 96 Room Air 12/19/17 01:17 Room Air 12/19/17 01:14 132/94 Physical Exam GENERAL: alert, well appearing, well nourished, no distress, non-toxic, appears older than stated age, smells of tobacco smoke. EYE EXAM: normal conjunctiva, PERRL and EOM's grossly intact OROPHARYNX: no exudate, no erythema, lips, buccal mucosa, and tongue normal and mucous membranes are dry, no evidence of tongue contusion NECK: supple, no nuchal rigidity, no adenopathy, non-tender LUNGS: Clear to auscultation. Normal chest wall mechanics. Decreased breath sounds, no wheezes, rhonchi, and rales. HEART: no murmurs, S1 normal and S2 normal ABDOMEN: abdomen soft, non-tender, normo-active bowel sounds, no masses, no rebound or guarding. No evidence of incontinence. BACK: Back is symmetrical on inspection and there is no deformity, no midline tenderness, no CVA tenderness. SKIN: no rashes and no bruising UPPER EXTREMITIES: upper extremities are grossly normal. FROM, no evidence of trauma, nml pulses. LOWER EXTREMITIES: No pitting edema. FROM, no evidence of trauma, nml pulses. NEURO EXAM: Normal sensorium, cranial nerves II-XII grossly intact, normal speech, no gross weakness of arms, no gross weakness of legs. Medical Decision & Procedures ER Provider Diagnostic Interpretation: Radiology results have been interpreted by the radiologist and reviewed by me. CT HEAD: Comparison: CT head 11/15/2017. No ICH, mass effect, or edema. No skull fracture. Right maxillary sinus mucous retention cyst. Radiologist: Gentry Vizcarra M.D. Radiology results have been interpreted and reviewed by . ONE VIEW CHEST X-RAY: No cardiomegaly, no effusions, no wide mediastinum, no focal consolidation, no fracture, and no acute pulmonary edema noted. Patient rotated. No significant change compared to prior. Laboratory Results Test 12/19/17 01:31 12/19/17 01:45 12/19/17 01:47 Urine Color YELLOW Urine Appearance CLEAR (CLEAR) Urine pH 5.5 (4.5-7.5) Urine Specific Archer 1.010 (1.000-1.030) Urine Protein NEG (NEG) Urine Glucose (UA) NEG (NEG) Urine Ketones NEG (NEG) Urine Occult Blood NEG (NEG) Urine Nitrite NEG (NEG) Urine Bilirubin NEG (NEG) Urine Urobilinogen NEG (NEG) Urine Leukocyte Esterase NEG (NEG) Urine Opiates Screen NEG (NEG) Urine Methadone, Qualitative NEG (NEG) Urine Barbiturates NEG (NEG) Urine Phencyclidine (PCP) Level NEG (NEG) Ur Amphetamine/Methamphetamine NEG (NEG) MDMA (Ecstasy) Screen NEG (NEG) Urine Benzodiazepines Screen NEG (NEG) Urine Cocaine Metabolite NEG (NEG) Urine Marijuana (THC) POS (NEG) Urine Marijuana (THC Carboxy Acid) 50 NG/ML (CUTOFF=5) Neutrophils % (Manual) 37.4 % Lymphocytes % (Manual) 46.1 % Monocytes % (Manual) 2.6 % Neutrophils # (Manual) 1.07 K/uL (1.4-6.5) Total Absolute Neutrophils 1.07 K/uL (1.4-6.5) Lymphocytes # (Manual) 1.31 K/uL (1.2-3.4) Total Absolute Lymphocytes 1.71 K/uL (1.2-3.4) Monocytes # (Manual) 0.07 K/uL (0.11-0.59) Percent Large Granular Lymphocytes 13.9 % Absolute Large Granular Lymphocytes 0.40 K/uL Large Platelets 1+ Ammonia 22.0 umol/L (11-32) Troponin I < 0.015 ng/ml (0-0.045) Thyroid Stimulating Hormone (TSH) 0.889 uIu/ml (0.300-4.500) Salicylates Level 5.9 mg/dl (2.8-20) Acetaminophen Level < 2 ug/ml (10-30) Ethyl Alcohol mg/dL 357.0 mg/dl (0-3) Anaplasma phagocytophila DNA Not Detected (Not Detected) Lyme Disease IgG Antibody NEG (NEG) Lyme Disease IgM Antibody NEG (NEG) Laboratory results per my review. Medications Administered Medications (Trade) Dose Ordered Sig/Rica Route Start Time Stop Time Status Last Admin Dose Admin Sodium Chloride 1,000 ml @ 999 mls/hr Q1H1M STAT IV 12/19/17 01:31 12/19/17 02:31 DC 12/19/17 01:56 999 MLS/HR Folic Acid (Folvite Tab) 1 mg NOW STAT PO 12/19/17 02:46 12/19/17 02:47 DC 12/19/17 03:06 1 MG Thiamine HCl (Vitamin B-1 Tab) 100 mg NOW STAT PO 12/19/17 02:46 12/19/17 02:47 DC 12/19/17 03:06 100 MG Sodium Chloride 1,000 ml @ 250 mls/hr Q4H STAT IV 12/19/17 03:30 12/19/17 07:29 DC 12/19/17 03:46 250 MLS/HR Levetiracetam (Keppra Tab) 1,000 mg NOW STAT PO 12/19/17 07:47 12/19/17 07:48 DC 12/19/17 08:14 1,000 MG Lorazepam (Ativan Inj) 2 mg NOW STAT IV 12/19/17 09:26 12/19/17 09:27 DC 12/19/17 09:32 2 MG ECG Per My Interpretation Indication: other (seizure) Rate (beats per minute): 96 Rhythm: sinus rhythm Findings: PVC, no acute ischemic change, other (Normal axis, normal intervals) ED Course 0125: The patient was evaluated in room C9. A complete history and physical exam was performed. 0131: Sodium Chloride 1000 ml @ 999 mls/hr IV 0244: I reviewed the patient's EMR. Per EMR, the patient has a prior history of alcohol withdrawal seizures and DTs requiring ICU admission. The patient was seen by neurology previously and changed from Depakote to Keppra. He has a prior history of thrombocytopenia and transaminitis. 0246: Thiamine HCl 100mg PO, Folic Acid 1mg PO 0250: I reevaluated and updated the patient. He is asleep and his vital signs are stable. 0452: I rechecked the patient. He was asleep and his vitals are stable. 0715: I reevaluated the patient. He was asleep but was able to wake up easily. His vitals remain stable. There is no evidence of alcohol withdrawal symptoms. The patient now admits that he and his brother were drinking vodka today. Denies any pain. No changes on repeat exam. 0745: VS stable. Pt sleeping but easily awakened. No evidence of etoh withdrawal. The patient was signed out to Dr. Reed at the change of shift. Medical Decision Differential diagnosis: Etiologies such as infection, hypoglycemia, electrolyte abnormalities, cardiac sources, intracerebral event, trauma, toxicologic, neurologic, as well as others were entertained. Patient presented here with possible seizure, although witnesses are present and brother who supposedly witnessed the event was intoxicated also. Patient had no evidence of tongue contusion and was not incontinent. There was no reported postictal period. Patient monitored here for several hours as a precaution. Patient always easily aroused, showed no signs of alcohol withdrawal, and had stable vital signs. Patient found to have significant thrombocytopenia, although has had thrombocytopenia previously which was thought to be related to his chronic alcohol abuse. Patient states he has been compliant with seizure medications, although I question this given his continued alcohol abuse. No other acute abnormality or infection noted on labs or imaging. Patient rechecked multiple times, I do not suspect any occult traumatic injury despite the thrombocytopenia or internal bleeding. While patient has had questionable alcohol-related seizures in the past, none were noticed during an extensive observation time here, and patient wished to go home. At the time of my signout, patient was contacting family to try and arrange a ride. Patient was given his morning dose of Keppra. At time of signout patient had no evidence of alcohol withdrawal, and it had no seizures here. I do not suspect occult infectious etiology including meningitis/ encephalitis. Patient given thiamine and folic acid here. Medication Reconcilliation Current Medication List: was personally reviewed by me Blood Pressure Screening Patient's blood pressure: Normal blood pressure Blood pressure disposition: Did not require urgent referral Impression Primary Impression: Alcohol abuse Additional Impressions: Alcohol intoxication Tobacco abuse Thrombocytopenia Transaminitis Recurrent seizures Scribe Attestation The scribe's documentation has been prepared under my direction and personally reviewed by me in its entirety. I confirm that the note above accurately reflects all work, treatment, procedures, and medical decision making performed by me. Departure Information Dispostion Still a Patient Referrals Misha Beltre M.D. (MEDICAL) (PCP) Patient Instructions My [facility] Additional Instructions Please consider cutting back on your alcohol consumption. Please do not stop drinking cold turkey. Please continue your regular medications, including your seizure medication. Please call your neurologist to discuss your seizures. Please have your family doctor recheck your platelet counts as they were very low tonight. You are at an increased risk of bleeding if you have any falls or injuries because of your platelets being low. If you have any recurrent seizures, develop bruising, headaches, vomiting, fevers, trouble breathing, cough, weakness, are unable to walk, dizziness, vision changes, or you have any other new or concerning symptoms, please return to the emergency room. Problem Qualifiers Additional Impressions: Alcohol intoxication Complication of substance-induced condition: uncomplicated Qualified Codes: F10.920 - Alcohol use, unspecified with intoxication, uncomplicated
[2017-12-19 02:25] LABS: HEMATOCRIT 40.8 % (42-52); MEAN CELL VOLUME 89.1 fL (80-100); MEAN CORPUSCULAR HEMOGLOBIN 32.8 pg (25-34); MEAN CORPUSCULAR HGB CONC 36.8 g/dl (32-36); MEAN PLATELET VOLUME 10.3 fL (7.4-10.4); PLATELET COUNT 28 K/uL (130-400); RED CELL DISTRIBUTION WIDTH CV 11.7 % (11.5-14.5); RED CELL DISTRIBUTION WIDTH SD 37.8 fL (36.4-46.3); WHITE BLOOD COUNT 2.85 K/uL (4.8-10.8)
[2017-12-19 02:28] LABS: ALBUMIN 3.8 gm/dl (3.4-5.0); ALKALINE PHOSPHATASE 129 U/L (45-117); ALT/SGPT 164 U/L (12-78); AST/SGOT 201 U/L (15-37); BLOOD UREA NITROGEN 5 mg/dl (7-18); CALCIUM 7.8 mg/dl (8.5-10.1); CARBON DIOXIDE 21 mmol/L (21-32); CREATININE 0.57 mg/dl (0.60-1.40); GLUCOSE 90 mg/dl (70-99); PHOSPHORUS 3.6 mg/dl (2.5-4.9); POTASSIUM 3.1 mmol/L (3.5-5.1); SODIUM 131 mmol/L (136-145); TOTAL PROTEIN 7.6 gm/dl (6.4-8.2)
[2017-12-19] MEDS ORDERED: THIAMINE HCL 100 MG TAB PO STA (02:46)
--- NOTE | 2017-12-19 06:28 | DIAGNOSTIC IMAGING REPORT ---
HEAD WITHOUT CONTRAST (CT) CT DOSE: 788.63 mGycm HISTORY: Mental status change. seizure, fall TECHNIQUE: Multiaxial CT images of the head were performed without the use of intravenous contrast. A dose lowering technique was utilized adhering to the principles of ALARA. Comparison: 11/15/2017 Findings: Unchanging mucous retention cyst right maxillary sinus. Mild mucosal thickening ethmoid sinuses. The calvarium and skull base are intact. The ventricles and sulci are within normal limits. There is no mass, hematoma, midline shift, or acute infarct. Impression: No acute intracranial abnormality. The above report was generated using voice recognition software. It may contain grammatical, syntax or spelling errors. Electronically signed by: Keo Muir M.D. 12/19/2017 6:26 AM Dictated Date/Time: 12/19/2017 6:24 AM
--- NOTE | 2017-12-19 06:36 | DIAGNOSTIC IMAGING REPORT ---
CHEST ONE VIEW PORTABLE CLINICAL HISTORY: recurrent seizure mental status change COMPARISON STUDY: No previous studies for comparison. FINDINGS: The bones soft tissues and hemidiaphragms are normal. The cardiomediastinal silhouette is normal. The lungs are clear. The pulmonary vasculature is normal. IMPRESSION: Negative chest. The above report was generated using voice recognition software. It may contain grammatical, syntax or spelling errors. Electronically signed by: Koe Muir M.D. 12/19/2017 6:34 AM Dictated Date/Time: 12/19/2017 6:34 AM
[2017-12-19] MEDS ORDERED: LEVETIRACETAM 500 MG TAB PO STA (07:47)
[2017-12-19] MEDS ORDERED: LORAZEPAM 2 MG/ML 1 ML VIAL IV STA (09:26)
--- NOTE | 2017-12-19 09:33 | EMERGENCY ROOM VISIT NOTE ---
ED Visit Note First contact with patient: 08:32 I assumed care at the change of shift, Dr. Castaneda had been the physician prior to me. The patient had presented with presumed seizure activity. He was quite intoxicated. He has a history of seizures and possibly alcohol withdrawal seizures. Workup here did not show any acute traumatic findings. He was thrombocytopenic , he has a history of the same. His alcohol was quite elevated. The patient did not want to stay in the hospital. Plans for him to go home were made. I assumed care at the change of shift. The patient was getting ready to go home, he began getting more jittery. He had a seizure in the restroom, this was unwitnessed. He did not suffer trauma. Given the increased jitteriness and withdrawal type symptoms, given the recurrent reported seizure, I do think a hospital stay is warranted. The patient was given IV Ativan, the hospitalist was consulted. I spoke to the patient at length.
[2017-12-19] MEDS ORDERED: POTASSIUM CHLORIDE 20 MEQ TABCR PO STA (09:42)
[2017-12-19] MEDS ORDERED: GABAPENTIN 600 MG TAB PO SCH (09:45)
[2017-12-19] MEDS ORDERED: LORAZEPAM 2 MG/ML 1 ML VIAL IV PRN (09:45)
--- NOTE | 2017-12-19 10:23 | Progress Note ---
Progress Note Date of Service Dec 19, 2017. Progress Note ATTENDING ADDENDUM Patient seen and examined, care coordinated with Maggi Golden PA-C Labs and images reviewed This is a history of polyps from, alcoholic liver disease, history of seizure disorder with medication noncompliance Came to ER last night, with complaint of having seizure at home Patient is a very poor historian During interview he was very groggy/sleepy due to IV Ativan given alcohol withdrawal symptom As per ER note, patient arrived intoxicated, disheveled, with multiple seizure episode at home leading to fall After few hours in ER, wanted to be discharged home with follow-up with family physician follow-up was scheduled with Dr. Maggie Franks on 12/21/17 at 1245 To be, patient apparently had an unwitnessed seizure episode in ER bathroom [facility] hospitalist team consulted to admit the patient Physical exam: General very disheveled, chronically ill appearing, intoxicated, HEENT: Clear nonicteric PERRLA/EOMI Neck: Supple, no JVD no carotid bruit no thyromegaly, trachea midline Lungs: Clear to auscultate no wheeze or rales Heart: Regular, tachycardic, no lower extremity edema, no carotid bruit, no JVD Extremity: Large bruise on the left flank area-age indeterminant, nonblanching, no overlying skin lesion, multiple red rash/spots in finger webspace hands arms and shoulders-concern possible scabies infection Multiple bruits on both lower extremity-patient reports of multiple falls Neuro: Groggy due to medication, no focal neuro deficit noted ASSESSMENT AND PLAN ALCOHOL INTOXICATION/POLYSUBSTANCE ABUSE History of chronic alcohol intoxication/abuse Multiple admissions/ER visits in the past with similar symptom Presents with intoxicated status blood alcohol level more than 380; with positive marijuana Admit to telemetry Will be started with Neurontin alcohol withdrawal protocol As needed IV Ativan for withdrawal Caution for delirium tremens Low threshold to transfer to ICU with any evidence of severe withdrawal symptom Required ICU admission in past for similar reasons CONFUSION/DELIRIUM/METABOLIC ENCEPHALOPATHY DUE TO ALCOHOL INTOXICATION / POSSIBLE WERNICKE'S ENCEPHALOPATHY Patient changes his story is multiple time With a lot of confabulation noted, says not having any eat since last night When he was given breakfast already in ER Ordered for thiamine and folate Banana bag POSSIBLE PRIMARY SEIZURE DISORDER VS ALCOHOL WITHDRAWAL SEIZURE Very hard to confirm a true seizure episode, as patient was not able to give any good history Had neurology evaluation in last admission for similar symptom Depakote was discontinued secondary to liver dysfunction Has been on Keppra-questionable medication compliance Continued with Keppra 1000 mg twice daily Ordered for seizure precaution Neuro evaluation requested Defer to neurology for repeat EEG if indicated /Studies done approximately 7 months which were essentially negative HYPONATREMIA CHRONIC Associated with elevated anion gap, normal bicarb Evidence of infection Due to chronic alcohol abuse Ordered for fluid restriction Follow PRP HYPOKALEMIA Poor p.o. intake/alcoholism Nausea vomiting or diarrhea Replaced with oral potassium tablet Repeat PRP TRANSAMINITIS AST greater than ALT With elevated alkaline phosphatase Due to alcoholic liver disease/hepatitis Follow liver enzymes Right upper quadrant ultrasound ordered GI evaluation requested HISTORY OF PAF/A. FIB Continue with diltiazem Not a candidate for chronic anticoagulation secondary to alcohol intoxication/ abuse/high fall risk EKG shows prolonged QTC We will hold trazodone/avoid medication that can cause worsening of QT prolongation (e.g Zofran/quinolones) Repeat EKG in a.m. SIGNIFICANT THROMBOCYTOPENIA Platelet count 28 Simply secondary to alcoholic liver disease Avoid all antiplatelet/anticoagulation Follow CBC daily Patient denies of any tick bite Lyme titer negative Anaplasma DNA pending Ordered for peripheral blood smear FALL/AMBULATORY DYSFUNCTION Multiple bruise on extremities, secondary to fall Possible secondary to alcohol intoxication PT OT evaluation Fall precaution ITCHING SKIN RASH /CONCERN FOR POSSIBLE SCABIES : contact isolation topical solution CODE STATUS: Full code DVT prophylaxis: SCD and teds Vision is encouraged to ambulate No pharmacological anticoagulation secondary to thrombocytopenia Disposition: To be determined Patient will benefit from alcohol rehab Refused all refused referrals in past Social service consulted for discharge planning PT OT evaluation requested Reason follow-up with Dr. Maggie Franks at [facility] Please refer to further documentation by Maggi Golden PA-C for discussion of other chronic issues Bella Sauceda MD
[2017-12-19] MEDS ORDERED: POTASSIUM CHLORIDE 10 MEQ TABCR ONE ×2 (10:31→10:32)
[2017-12-19] MEDS ORDERED: MULTI-VITAMIN INFUSION INJ 10 ML, THIAMINE HCL INJ 100 MG, FoLIC ACID INJ 1 MG in SODIU... IV ONE (11:15)
--- NOTE | 2017-12-19 11:20 | History and Physical ---
History & Physical Date & Time of Service: Dec 19, 2017 at 10:26 Chief Complaint: Seizure/Alcohol Overdose Primary Care Physician: Misha Beltre M.D. (MEDICAL) History of Present Illness Source: patient, clinic records, hospital records Pt is 57 y/o M with PMH paroxysmal atrial fibrillation, seizure disorder, alcohol abuse, tobacco abuse, chronic thrombocytopenia presented to ER with complaint of seizure. Patient very groggy upon my assessment and thorough history hard to obtain from pt. patient states was at home last evening and went to bathroom and started to feel dizzy, blurry vision and then reports having a seizure which he describes as shaking and blacking out and falling. He denies urinary or fecal incontinence. Patient reports that he has been taking his Keppra as prescribed. He reports past week has had approximately 25 seizures which is increased from previous. Patient reports multiple falls secondary to seizures and multiple bruises to extremities and left flank. Patient reports to this provider last 2 beers was 2 days ago. Patient states drinks 2 cans of beer a day. Of note, today his EtOH level in ER was 357. Patient states he does not believe his seizures are in relation to alcohol use or withdrawal however does state that he thinks alcohol is not helping his underlying seizure disorder. He is complaining of headache and reports chronic headaches. Patient reports pruritic rash to bilateral hands for several weeks. Denies others with similar rash. Reports lives with brother, denies staying in hotels/other locations. Denies known insect/tick bite. Pt reports some left shoulder pain from fall last night, aggravated with ROM. Unclear if pt having any chest pain or SOB. Denies fever/chills, diaphoresis, N/V/D/C, neck pain, cough, abdominal pain, extremity edema, urinary symptoms. Past Medical/Surgical History Medical Problems: (1) Alcohol abuse Status: Chronic (2) History of traumatic brain injury Status: Chronic (3) Malnutrition related to chronic disease Status: Chronic (4) Mood disorder Status: Chronic (5) PAF (paroxysmal atrial fibrillation) Status: Chronic (6) Seizure Status: Chronic (7) Thrombocytopenia Status: Chronic (8) Tobacco abuse Status: Chronic Surgical Problems: (1) Hx of colonoscopy Status: Resolved Family History Diabetes mellitus FH: cancer MOTHER (pancreatic CA ) FH: heart disease FATHER (SD age 68 ) Hypertension Social History Smoking Status: Current Every Day Smoker Smokeless Tobacco Use: No Alcohol Use: heavy Drug Use: other (pt denies drug use) Marital Status: Housing status: other (reports lives with brother) Occupational Status: unemployed Immunizations History of Influenza Vaccine: No History of Tetanus Vaccine?: Unknown Tetanus Immunization Date: Jul 21, 2006 History of Pneumococcal: No History of Hepatitis B Vaccine: No Hepatitis Immunization Date: Jul 21, 1983 Allergies Coded Allergies: Ibuprofen (Unverified Allergy, Unknown, FACIAL SWELLING, 12/19/17) Home Medications Scheduled Diltiazem HCl (Diltiazem Cd), 120 MG PO QAM Folic Acid (Folic Acid), 1 MG PO QAM Levetiracetam (Keppra), 1,000 MG PO Q12 Quetiapine Fumarate (Seroquel), 50 MG PO DAILY Thiamine HCl (Vitamin B-1), 100 MG PO QAM Scheduled PRN Diphenhydramine Hcl (Allergy), 25 MG PO UD PRN for Allergy Symptoms Review of Systems Further ROS unable to be obtained secondary to pt mental status Physical Exam Vital Signs Date Time Temp Pulse Resp B/P (MAP) Pulse Ox O2 Delivery O2 Flow Rate FiO2 12/19/17 09:48 95 12/19/17 09:45 94 20 93/67 94 Room Air 12/19/17 09:33 114 22 115/79 97 Room Air 12/19/17 08:14 99 18 101/75 99 Room Air 12/19/17 06:52 94 18 110/73 94 Room Air 12/19/17 06:30 88 12/19/17 05:59 91 18 117/78 96 Room Air 12/19/17 04:33 101 18 142/74 95 Room Air 12/19/17 03:08 103 18 117/87 97 Room Air 12/19/17 01:52 86 24 93 12/19/17 01:42 95 17 96 12/19/17 01:32 97 16 96 12/19/17 01:22 95 21 95 Room Air 12/19/17 01:18 97 12/19/17 01:17 36.5 95 23 132/94 96 Room Air 12/19/17 01:17 Room Air 12/19/17 01:14 132/94 General Appearance: WD/WN, + pertinent finding (Pt sleeping upon initial assessement, awakens to tactile stimulation, frequently falls back asleep) Head: normocephalic, atraumatic Eyes: PERRL, sclerae normal, + pertinent finding (+lateral nystagmus noted) ENT: hearing grossly normal, + pertinent finding (mucous membranes mildly dry) Neck: supple, trachea midline Respiratory/Chest: lungs clear, normal breath sounds, no respiratory distress Cardiovascular: regular rate, rhythm, no murmur, normal peripheral pulses Abdomen/GI: normal bowel sounds, non tender, soft Back: no CVA tenderness Extremities/Musculoskelatal: no calf tenderness, normal capillary refill, no pedal edema, + pertinent finding (left shoulder: no ecchymosis, erythema or deformity noted, no tenderness upon palpation, pt reports tenderness anterior/ lateral shoulder with full flexion, abduction. elbow/wrist non-tender ROM intact , distal pulses intact) Neurologic/Psych: + pertinent finding (Pt sleeping upon initial assessement, awakens to tactile stimulation, frequently falls back asleep, irritatble with questions, is cooperative with exam) Skin: warm/dry, + pertinent finding (+erythematous papules and excoriations to bilateral hands and finger web spaces. Left flank with ecchymosis, petechiae, multiple ecchymosis to bilateral arms, legs) Diagnostics Laboratory Results Results Past 24 Hours Test 12/19/17 01:31 12/19/17 01:45 12/19/17 01:47 Range/Units Urine Color YELLOW Urine Appearance CLEAR CLEAR Urine pH 5.5 4.5-7.5 Urine Specific [place] 1.010 1.000-1.030 Urine Protein NEG NEG Urine Glucose (UA) NEG NEG Urine Ketones NEG NEG Urine Occult Blood NEG NEG Urine Nitrite NEG NEG Urine Bilirubin NEG NEG Urine Urobilinogen NEG NEG Urine Leukocyte Esterase NEG NEG Urine Opiates Screen NEG NEG Urine Methadone, Qualitative NEG NEG Urine Barbiturates NEG NEG Urine Phencyclidine (PCP) Level NEG NEG Ur Amphetamine/Methamphetamine NEG NEG MDMA (Ecstasy) Screen NEG NEG Urine Benzodiazepines Screen NEG NEG Urine Cocaine Metabolite NEG NEG Urine Marijuana (THC) POS NEG White Blood Count 2.85 4.8-10.8 K/uL Red Blood Count 4.58 4.7-6.1 M/uL Hemoglobin 15.0 14.0-18.0 g/dL Hematocrit 40.8 42-52 % Mean Corpuscular Volume 89.1 80-100 fL Mean Corpuscular Hemoglobin 32.8 25-34 pg Mean Corpuscular Hemoglobin Concent 36.8 32-36 g/dl Platelet Count 28 130-400 K/uL Mean Platelet Volume 10.3 7.4-10.4 fL RDW Standard Deviation 37.8 36.4-46.3 fL RDW Coefficient of Variation 11.7 11.5-14.5 % Neutrophils % (Manual) 37.4 % Lymphocytes % (Manual) 46.1 % Monocytes % (Manual) 2.6 % Neutrophils # (Manual) 1.07 1.4-6.5 K/uL Total Absolute Neutrophils 1.07 1.4-6.5 K/uL Lymphocytes # (Manual) 1.31 1.2-3.4 K/uL Total Absolute Lymphocytes 1.71 1.2-3.4 K/uL Monocytes # (Manual) 0.07 0.11-0.59 K/uL Percent Large Granular Lymphocytes 13.9 % Absolute Large Granular Lymphocytes 0.40 K/uL Large Platelets 1+ Prothrombin Time 10.4 9.0-12.0 SECONDS Prothromb Time International Ratio 1.0 0.9-1.1 Sodium Level 131 136-145 mmol/L Potassium Level 3.1 3.5-5.1 mmol/L Chloride Level 97 98-107 mmol/L Carbon Dioxide Level 21 21-32 mmol/L Anion Gap 13.0 3-11 mmol/L Blood Urea Nitrogen 5 7-18 mg/dl Creatinine 0.57 0.60-1.40 mg/dl Est Creatinine Clear Calc Drug Dose 175.6 ml/min Estimated GFR () 133.0 Estimated GFR (Non- 114.8 BUN/Creatinine Ratio 7.9 10-20 Random Glucose 90 70-99 mg/dl Calcium Level 7.8 8.5-10.1 mg/dl Phosphorus Level 3.6 2.5-4.9 mg/dl Magnesium Level 2.1 1.8-2.4 mg/dl Total Bilirubin 0.6 0.2-1 mg/dl Aspartate Amino Transf (AST/SGOT) 201 15-37 U/L Alanine Aminotransferase (ALT/SGPT) 164 12-78 U/L Alkaline Phosphatase 129 45-117 U/L Ammonia 22.0 11-32 umol/L Troponin I < 0.015 0-0.045 ng/ml Total Protein 7.6 6.4-8.2 gm/dl Albumin 3.8 3.4-5.0 gm/dl Globulin 3.8 2.5-4.0 gm/dl Albumin/Globulin Ratio 1.0 0.9-2 Lipase 127 73-393 U/L Thyroid Stimulating Hormone (TSH) 0.889 0.300-4.500 uIu/ml Salicylates Level 5.9 2.8-20 mg/dl Acetaminophen Level < 2 10-30 ug/ml Ethyl Alcohol mg/dL 357.0 0-3 mg/dl Lyme Disease IgG Antibody NEG NEG Lyme Disease IgM Antibody NEG NEG Diagnostic Radiology CT HEAD: Impression: No acute intracranial abnormality. CXR: IMPRESSION: Negative chest. EKG EKG: sinus rhythm, rate 96, no acute ST changes noted Impression Assessment and Plan SEIZURE Unsure underlying etiology, seizure disorder vs ETOH withdrawal Followed with neuro in past, last EE04/2017 Pt with reported 25 seizures over past week. Reported seizure disorder. Pt reports taking Keppra, also reports no ETOH for 2 days. His ETOH level in ER 357. Unsure of med compliance. CT head negative in ER. -pending Keppra level -seizure precautions -neuro consult ETOH WITHDRAWAL ETOH ABUSE Pt reports drinking 2 cans beer daily, and reports no ETOH for 2 days. In ER ETOH level: 357. Pt given 2mg Ativan in ER secondary to ETOH withdrawal - shaking symptoms. -alcohol withdrawal protocol with gabapentin, ativan -banana bag -continue folic acid, multivitamin -manager social consult (in past pt denied rehab) HYPOKALEMIA K: 3.1. probable secondary to poor oral intake -replace and monitor -repeat prp in 4 hours -prp in am HYPONATREMIA ANION GAP Chronic hyponatremia. baseline in 130's. Today Na: 131. Anion gap: 13. Probable secondary to ETOH abuse. No signs of infection -fluid restriction -monitor prp THROMBOCYTOPENIA LEUKOPENIA Chronic leukopenia, chronic thrombocytopenia. WBC: 2.8. (baseline 2.4-3.1). Plt : 28 (baseline 60's). Probable secondary to ETOH abuse. no active bleeding negative lyme. denies known tick bites -pending anaplasmosis -pending peripheral smear -monitor cbc ELEVATED LFT's AST: 201 (higher than previous), ALT: 164. Alk Phos: 129. Normal lipase. AST>ALT , probable ETOH hepatitis. -US liver -pending hepatitis panel -GI consult -follow liver functions RASH probable scabies with appearance and location. no signs secondary infection at this time. -permethrin cream PAROXYSMAL ATRIAL FIBRILLATION current sinus rhythm. In ER troponin negative. recent SBP: 90's, hold today's dose currently -continue Cardizem with holding parameters Hx MOOD DISORDER -hold Seroquel at this time DVT Prophylaxis -SCDs secondary to thrombocytopenia Admit tele Full code Follows with Dr Maggie Franks for routine care Pt was seen with Dr Sauceda. See addendum ATTENDING ADDENDUM Patient seen and examined, care coordinated with Maggi Golden PA-C Labs and images reviewed This is a history of polyps from, alcoholic liver disease, history of seizure disorder with medication noncompliance Came to ER last night, with complaint of having seizure at home Patient is a very poor historian During interview he was very groggy/sleepy due to IV Ativan given alcohol withdrawal symptom As per ER note, patient arrived intoxicated, disheveled, with multiple seizure episode at home leading to fall After few hours in ER, wanted to be discharged home with follow-up with family physician follow-up was scheduled with Dr. Maggie Franks on 12/21/17 at 1245 To be, patient apparently had an unwitnessed seizure episode in ER bathroom [facility] hospitalist team consulted to admit the patient Physical exam: General very disheveled, chronically ill appearing, intoxicated, HEENT: Clear nonicteric PERRLA/EOMI Neck: Supple, no JVD no carotid bruit no thyromegaly, trachea midline Lungs: Clear to auscultate no wheeze or rales Heart: Regular, tachycardic, no lower extremity edema, no carotid bruit, no JVD Extremity: Large bruise on the left flank area-age indeterminant, nonblanching, no overlying skin lesion, multiple red rash/spots in finger webspace hands arms and shoulders-concern possible scabies infection Multiple bruits on both lower extremity-patient reports of multiple falls Neuro: Groggy due to medication, no focal neuro deficit noted ASSESSMENT AND PLAN ALCOHOL INTOXICATION/POLYSUBSTANCE ABUSE History of chronic alcohol intoxication/abuse Multiple admissions/ER visits in the past with similar symptom Presents with intoxicated status blood alcohol level more than 380; with positive marijuana Admit to telemetry Will be started with Neurontin alcohol withdrawal protocol As needed IV Ativan for withdrawal Caution for delirium tremens Low threshold to transfer to ICU with any evidence of severe withdrawal symptom Required ICU admission in past for similar reasons CONFUSION/DELIRIUM/METABOLIC ENCEPHALOPATHY DUE TO ALCOHOL INTOXICATION / POSSIBLE WERNICKE'S ENCEPHALOPATHY Patient changes his story is multiple time With a lot of confabulation noted, says not having any eat since last night When he was given breakfast already in ER Ordered for thiamine and folate Banana bag POSSIBLE PRIMARY SEIZURE DISORDER VS ALCOHOL WITHDRAWAL SEIZURE Very hard to confirm a true seizure episode, as patient was not able to give any good history Had neurology evaluation in last admission for similar symptom Depakote was discontinued secondary to liver dysfunction Has been on Keppra-questionable medication compliance Continued with Keppra 1000 mg twice daily Ordered for seizure precaution Neuro evaluation requested Defer to neurology for repeat EEG if indicated /Studies done approximately 7 months which were essentially negative HYPONATREMIA CHRONIC Associated with elevated anion gap, normal bicarb Evidence of infection Due to chronic alcohol abuse Ordered for fluid restriction Follow PRP HYPOKALEMIA Poor p.o. intake/alcoholism Nausea vomiting or diarrhea Replaced with oral potassium tablet Repeat PRP TRANSAMINITIS AST greater than ALT With elevated alkaline phosphatase Due to alcoholic liver disease/hepatitis Follow liver enzymes Right upper quadrant ultrasound ordered GI evaluation requested HISTORY OF PAF/A. FIB Continue with diltiazem Not a candidate for chronic anticoagulation secondary to alcohol intoxication/ abuse/high fall risk EKG shows prolonged QTC We will hold trazodone/avoid medication that can cause worsening of QT prolongation (e.g Zofran/quinolones) Repeat EKG in a.m. SIGNIFICANT THROMBOCYTOPENIA Platelet count 28 Simply secondary to alcoholic liver disease Avoid all antiplatelet/anticoagulation Follow CBC daily Patient denies of any tick bite Lyme titer negative Anaplasma DNA pending Ordered for peripheral blood smear FALL/AMBULATORY DYSFUNCTION Multiple bruise on extremities, secondary to fall Possible secondary to alcohol intoxication PT OT evaluation Fall precaution ITCHING SKIN RASH /CONCERN FOR POSSIBLE SCABIES : contact isolation topical solution CODE STATUS: Full code DVT prophylaxis: SCD and teds Vision is encouraged to ambulate No pharmacological anticoagulation secondary to thrombocytopenia Disposition: To be determined Patient will benefit from alcohol rehab Refused all refused referrals in past Social service consulted for discharge planning PT OT evaluation requested Reason follow-up with Dr. Maggie Franks at [facility] Please refer to further documentation by Maggi Golden PA-C for discussion of other chronic issues Bella Sauceda MD Resuscitation Status VTE Prophylaxis Will order VTE Prophylaxis: Yes Reason for no VTE drug order: Contraindicated Additional Copies To Maggie Franks D.O.
[2017-12-19] MEDS: THIAMINE HCL INJ 100 MG in SYRINGE 9 ML IV SCH (11:30)
[2017-12-19] MEDS: LORAZEPAM 1MG IV ACTIVE PROTOCOL IV PRN (11:52)
[2017-12-19] MEDS ORDERED: GABAPENTIN 1200MG LOADING DOSE PO SCH ×2 (12:00)
[2017-12-19] MEDS ORDERED: PERMETHRIN 5% CR 60 GM TUBE EXT SCH (12:30)
--- NOTE | 2017-12-19 12:43 | Medical Consult ---
Consultation Note Date of Service Dec 19, 2017. Consultation Note I reviewed chart and labs. Pt is 57 yo alcoholic with seizure d/o presented to ER with seizures, admit after having multiple seizures in ER. He was intoxicated in ER. We are consulted due to abnormal LFT's. Pt with AST 201/ ALT 16, normal bili, alk phos minimally elevated. Lipase is normal. INR is normal. Prior AST in September was 62. Presumably he has alc hep. He does not have severe alc hep; no further therapy needed. Given seizure d/o, would check CPK; would also consider checking serologies for viral hep (HAV, HCV). DDX includes drug induced liver injury. Agree with ultrasound; would consider doppler ultrasound to check portal vein thrombosis, given thrombocytopenia. Would also consider checking depakote levels, as pt was prev on this medication. Please call with questions.
--- NOTE | 2017-12-19 13:36 | Gastrointestinal Consultation ---
Gastrointestinal Consultation Date of Consultation: Dec 19, 2017 Attending Physician: Bella Sauceda MD Consulting Physician: Matt Truong MD Reason for Consultation: Transaminitis History of Present Illness Patient is a 57 year old male with a hx of seizures/on keppra and ETOH abuse, with reports of increasing seizure activity and associated falls in the recent past, admitted after having three seizures at home. We have been consulted due to elevated liver enzymes. He states that he was told that he had an "issue" with his liver "about a year ago." He has not seen anyone from GI or hepatology in this regard, however. Labs as far back only as November of last year, show elevations in AST/ALT and ALP, with initial mild Tbili elevation as well. According to chart notes, he was changed from Depakote to Keppra in November, due to this elevation. CT scan of the abdomen in October of last year shows severe steatosis, and at least six hepatic lesions, incompletely characterized. No further work up has been done that I can find. He reports a three day hx of RLQ abdominal pain that he describes as "jolting" in nature, occurring about 2-3 times daily, lasting for about 5 minutes at a time. He denies any aggravating or alleviating factors. No n/v, heartburn or dysphagia. Bowels moving regularly, about twice daily, without BRB or melena. He states that he drinks about 3 beers daily, and has done this for about 20 years, last was 2 days ago by his admission. When pressed about his ETOH use, he does say that he had an additional 3-4 shots of vodka about 2 days ago as well. Tyelnol and salicylate levels neg/normal. No prior hx of EGD or colonoscopy. Past Medical/Surgical History Medical Problems: (1) Alcohol abuse Status: Chronic (2) Alcohol intoxication Status: Acute (3) Alcohol withdrawal Status: Acute (4) Alcohol withdrawal Status: Acute (5) Alcohol withdrawal Status: Acute (6) Dehydration Status: Acute (7) Dehydration Status: Acute (8) DTs (delirium tremens) Status: Acute (9) Hyponatremia Status: Acute (10) Multiple contusions Status: Acute (11) Recurrent seizures Status: Acute (12) Seizure Status: Acute (13) Seizure Status: Acute (14) Thrombocytopenia Status: Chronic (15) Tobacco abuse Status: Chronic (16) Tongue laceration Status: Acute (17) Tremor Status: Acute Past Medical History: paroxysmal Afib, Seizures, dyslipidemia, ETOH abuse Past Surgical History: None Family History Diabetes mellitus FH: cancer MOTHER (pancreatic CA ) FH: heart disease FATHER ([place] age 68 ) Hypertension Social History Smoking Status: Current Every Day Smoker Alcohol Use: heavy Drug Use: other (pt denies drug use) Marital Status: Housing Status: lives alone Occupation Status: unemployed Allergies Coded Allergies: Ibuprofen (Unverified Allergy, Unknown, FACIAL SWELLING, 12/19/17) Current Medications Home Meds and Scripts Medications Dose Route/Sig Max Daily Dose Days Date Category Vitamin B-1 (Thiamine HCl) 100 Mg Tab 100 Mg PO QAM 30 11/14/17 Rx Folic Acid 1 Mg Tab 1 Mg PO QAM 30 11/14/17 Rx Diltiazem Cd (Diltiazem HCl) 120 Mg Capcr 120 Mg PO QAM 30 11/14/17 Rx Keppra (Levetiracetam) 1,000 Mg Tab 1,000 Mg PO Q12 30 11/14/17 Rx Allergy (Diphenhydramine Hcl) 25 Mg Cap 25 Mg PO UD PRN 11/09/17 Reported Seroquel (Quetiapine Fumarate) 50 Mg Tab 50 Mg PO DAILY 11/09/17 Reported Review of Systems Constitutional: No fever, No chills Eyes: No worsening of vision, No eye pain ENT: No hearing loss, No sore throat Respiratory: No cough, No wheezing, No shortness of breath Cardiac: No chest pain Abdomen: + see HPI Musculoskeletal: No joint pain, No muscle pain Male : No dysuria Neuro: + problem reported (seizures and frequent headaches) Psych: No problem reported Heme: No abnormal bleeding/bruising Endo: No excessive thirst, No excessive urination Skin: No jaundice Physical Exam Date Time Temp Pulse Resp B/P (MAP) Pulse Ox O2 Delivery O2 Flow Rate FiO2 12/19/17 11:03 36.5 76 18 121/72 Room Air 12/19/17 10:26 92 18 92/62 96 Room Air 12/19/17 09:48 95 12/19/17 09:45 94 20 93/67 94 Room Air 12/19/17 09:33 114 22 115/79 97 Room Air 12/19/17 08:14 99 18 101/75 99 Room Air 12/19/17 06:52 94 18 110/73 94 Room Air 12/19/17 06:30 88 12/19/17 05:59 91 18 117/78 96 Room Air 12/19/17 04:33 101 18 142/74 95 Room Air 12/19/17 03:08 103 18 117/87 97 Room Air 12/19/17 01:52 86 24 93 12/19/17 01:42 95 17 96 12/19/17 01:32 97 16 96 12/19/17 01:22 95 21 95 Room Air 12/19/17 01:18 97 12/19/17 01:17 36.5 95 23 132/94 96 Room Air 12/19/17 01:17 Room Air 12/19/17 01:14 132/94 General Appearance: no apparent distress Eyes: normal inspection ENT: hearing grossly normal Neck: supple Respiratory/Chest: lungs clear, no respiratory distress Cardiovascular: regular rate, rhythm Abdomen: normal bowel sounds, soft, + tenderness (very mild, RLQ tenderness) Extremities: no pedal edema Neurologic/Psych: alert, normal mood/affect, oriented x 3 Skin: normal color, no jaundice, warm/dry Laboratory Results Last 24 Hours Test 12/19/17 01:31 12/19/17 01:45 12/19/17 01:47 Urine Color YELLOW Urine Appearance CLEAR Urine pH 5.5 Urine Specific [place]ey 1.010 Urine Protein NEG Urine Glucose (UA) NEG Urine Ketones NEG Urine Occult Blood NEG Urine Nitrite NEG Urine Bilirubin NEG Urine Urobilinogen NEG Urine Leukocyte Esterase NEG Urine Opiates Screen NEG Urine Methadone, Qualitative NEG Urine Barbiturates NEG Urine Phencyclidine (PCP) Level NEG Ur Amphetamine/Methamphetamine NEG MDMA (Ecstasy) Screen NEG Urine Benzodiazepines Screen NEG Urine Cocaine Metabolite NEG Urine Marijuana (THC) POS White Blood Count 2.85 K/uL Red Blood Count 4.58 M/uL Hemoglobin 15.0 g/dL Hematocrit 40.8 % Mean Corpuscular Volume 89.1 fL Mean Corpuscular Hemoglobin 32.8 pg Mean Corpuscular Hemoglobin Concent 36.8 g/dl Platelet Count 28 K/uL Mean Platelet Volume 10.3 fL RDW Standard Deviation 37.8 fL RDW Coefficient of Variation 11.7 % Neutrophils % (Manual) 37.4 % Lymphocytes % (Manual) 46.1 % Monocytes % (Manual) 2.6 % Neutrophils # (Manual) 1.07 K/uL Total Absolute Neutrophils 1.07 K/uL Lymphocytes # (Manual) 1.31 K/uL Total Absolute Lymphocytes 1.71 K/uL Monocytes # (Manual) 0.07 K/uL Percent Large Granular Lymphocytes 13.9 % Absolute Large Granular Lymphocytes 0.40 K/uL Large Platelets 1+ Prothrombin Time 10.4 SECONDS Prothromb Time International Ratio 1.0 Sodium Level 131 mmol/L Potassium Level 3.1 mmol/L Chloride Level 97 mmol/L Carbon Dioxide Level 21 mmol/L Anion Gap 13.0 mmol/L Blood Urea Nitrogen 5 mg/dl Creatinine 0.57 mg/dl Est Creatinine Clear Calc Drug Dose 175.6 ml/min Estimated GFR () 133.0 Estimated GFR (Non- 114.8 BUN/Creatinine Ratio 7.9 Random Glucose 90 mg/dl Calcium Level 7.8 mg/dl Phosphorus Level 3.6 mg/dl Magnesium Level 2.1 mg/dl Total Bilirubin 0.6 mg/dl Aspartate Amino Transf (AST/SGOT) 201 U/L Alanine Aminotransferase (ALT/SGPT) 164 U/L Alkaline Phosphatase 129 U/L Ammonia 22.0 umol/L Troponin I < 0.015 ng/ml Total Protein 7.6 gm/dl Albumin 3.8 gm/dl Globulin 3.8 gm/dl Albumin/Globulin Ratio 1.0 Lipase 127 U/L Thyroid Stimulating Hormone (TSH) 0.889 uIu/ml Salicylates Level 5.9 mg/dl Acetaminophen Level < 2 ug/ml Ethyl Alcohol mg/dL 357.0 mg/dl Lyme Disease IgG Antibody NEG Lyme Disease IgM Antibody NEG Impression Patient is a 57 year old male admitted following a seizure. We have been consulted due to elevated liver enzymes. He does apparently have severe hepatic steatosis, and also with chronic ETOH abuse - likely drinking more than he will admit. Plan -Await RUQ ultrasound -Will obtain a serologic work up for elevated LFTs -Encouraged ETOH abstinence - recommended rehab -Continue withdrawal precautions/protocol
--- NOTE | 2017-12-19 15:27 | DIAGNOSTIC IMAGING REPORT ---
(LIVER) ABDOMEN LIMITED, DUPLEX PORTAL HEPATIC VEINS HISTORY: 57 years-old Male TRANSAMINITIS acutely elevated LFTs COMPARISON: CTA of the chest 11/03/2016 TECHNIQUE: Multiple real-time sonographic images of the abdominal right upper quadrant were obtained assessing grayscale appearance and color flow. Additional color and spectral analysis of the hepatic vasculature was also performed. FINDINGS: The pancreas is mostly obscured by bowel gas with the imaged portions appearing unremarkable. There is increased echogenicity of the liver with poor through transmission suggesting hepatic steatosis. The liver also appears enlarged measuring up to 22 cm in length. No focal hepatic mass lesions or intrahepatic biliary ductal dilation. The gallbladder is unremarkable without wall thickening, shadowing cholelithiasis or pericholecystic fluid. Common bile duct is normal, 2 mm. Sonographic Fonseca sign reported as negative. Hepatopedal flow is noted throughout the portal veins. Normal phasic waveforms within the hepatic veins. Patent IVC and splenic vein. Right kidney measures 13.6 cm in length and appears unremarkable without hydronephrosis. IMPRESSION: 1. Hepatic steatosis with suggested hepatomegaly. 2. No cholelithiasis or sonographic evidence of acute cholecystitis. 3. No biliary ductal dilation. 4. Hepatopedal flow within the portal vein with normal appearance of the hepatic vasculature. The above report was generated using voice recognition software. It may contain grammatical, syntax or spelling errors. Electronically signed by: Ulises Nieves M.D. 12/19/2017 3:26 PM Dictated Date/Time: 12/19/2017 3:22 PM
[2017-12-19 16:46] LABS: CALCIUM 8.1 mg/dl (8.5-10.1); CREATININE 0.67 mg/dl (0.60-1.40)
[2017-12-19 17:30] LABS: HEP C IGG 13 YRS+OLDER_RFLX NEG (NEG)
--- NOTE | 2017-12-19 17:47 | CONSULTATION REPORT ---
DATE OF CONSULTATION: 12/19/2017 HISTORY OF PRESENT ILLNESS: Stuart is 57 years old who is a patient of Dr. Sabillon who is now retired, and I am not sure who his primary care physician is going to be but probably will be the [facility] practice. He is known to neurology from admissions regarding seizure-like activity in the setting of alcohol excess and alcohol withdrawal, in fact was just seen in this hospital in early November, seen by Adelaida Lau and me. He does have paroxysmal atrial fibrillation, seizure disorder, possibly related to alcohol, possibly independent, history of alcohol abuse, tobacco abuse, chronic thrombocytopenia. He presented to the Emergency Room today with a complaint of seizure. The history suggests that he has been taking his Keppra 1000 mg twice a day, but overall, there were concerns about his compliance, and he also claims he has had 25 seizures characterized by loss of consciousness. He also reports multiple falls. He claims to have had only 2 beers 2 days ago and states that he only drinks 2 cans of beer a day, but his ethanol level at presentation was 357 suggesting that perhaps his estimation of his alcohol consumption may have been a little on the low side. He apparently lives with his brother. He has had no recent tick bites and has some shoulder pain from a fall that occurred during the apparent seizure. PAST MEDICAL HISTORY: Pretty much as outlined includes alcohol abuse, history of traumatic brain injury, malnutrition, mood disorder, paroxysmal atrial fibrillation, seizure, probably related to the effects of alcohol and perhaps his old traumatic brain injury, thrombocytopenia, and tobacco abuse. PAST SURGICAL HISTORY: He has had a colonoscopy. MEDICATIONS: At home theoretically include diltiazem, folic acid, Keppra 1000 mg twice a day, Seroquel, and thiamine. His p.r.n. medication is diphenhydramine. In the past, he had been on Depakote, but Dr. Mckeon felt that switching him to Keppra would be better in light of his liver dysfunction. ALLERGIES: HE DENIES ALLERGIES OTHER THAN TO IBUPROFEN WHICH CAUSES FACIAL SWELLING. SOCIAL HISTORY: Reveals him to be a current smoker, a heavy consumer of alcohol despite his protestations to the contrary. He is , lives with his brother, and is unemployed. FAMILY HISTORY: Positive for diabetes, pancreatic cancer, and early heart disease in his father and in addition hypertension. REVIEW OF SYSTEMS: A little vague. He claims to have had 25 blackout events. He did have a seizure. He does have some pain at the sites where he has fallen and injured himself. He denies any headaches, visual disturbances, tinnitus, vertigo, hearing loss. He denies any chest pain, shortness of breath, or other cardiopulmonary symptoms. GI medrano, he denies any dyspepsia or hematemesis. He has no peripheral edema. He does not have any significant arthritis. Neurologically, he has a history of traumatic brain injury, and the seizures are perhaps related to this and the alcohol or elements of both. PHYSICAL EXAMINATION: VITAL SIGNS: He was found to have a blood pressure of 115/79 with initial pressure being 93/67, pulse variable between 94 and 114, respirations were 20, and his oxygen saturation was 94%. GENERAL: He was a disheveled, somewhat thin, but otherwise normal appearing white male who appeared his stated age. HEENT: There were no cranial deformities. I did not see any laceration of the tongue or buccal membranes today. Lateral nystagmus was described on admission, but I was not impressed with any of my examination. CARDIOVASCULAR: Heart had a regular rate and rhythm. There were no murmurs. RESPIRATORY: The lungs were clear. GASTROINTESTINAL: His abdomen was soft and nontender. MUSCULOSKELETAL: There was no particular calf tenderness. He did have an ecchymosis on the left shoulder. Pulses were intact. NEUROLOGICAL: He was awake and alert. He did not appear to be very agitated today. He answered my questions appropriately. There was a slight tremor of the hands, but there was no significant cerebellar dysmetria on [id number] testing. There were no dyskinetic movements, choreiform activity, etc. There was no asterixis. Reflexes were hypoactive throughout. Toes were downgoing. No Daren signs were seen. Sensory examination was grossly intact to all modalities with possible exception of some distal vibratory loss. LABORATORY DATA: Laboratory studies have shown normal white count and diminished platelets of 28,000. His chemistry screens show elevated liver enzymes with AST, ALT, and alkaline phosphatase all being up. Magnesium level is normal. TSH is normal. I do not see evidence of the CPK has been drawn. His EKG is unremarkable. Imaging studies show a head CT with no acute intracranial abnormalities. There was no mass effect, leukoencephalopathy, or hydrocephalus. Chest x-ray shows no evidence for pneumonitis or congestive failure. At this point, it is not clear that Stuart had a seizure, but he certainly has had them in the past. The story is reasonably good, but I do not think he has had 25 seizures as he claims. I suspect these may have been alcoholic blackouts or nonepileptic events. While he claims compliance with his Keppra, I would be suspicious that he has not been as he has not been extremely truthful about his alcohol consumption. Right now he is going to be on I believe the Neurontin protocol, and his Keppra has been restarted as a typical level. I will check back with him tomorrow, but I do not see any point in doing an EEG here as it is not going to change our therapeutic plan. We need to watch him for delirium tremens and other issues of alcohol withdrawal, particularly with his high level of alcohol on admission. DURAN
[2017-12-19] MEDS: GABAPENTIN 600MG Q6H DOSE PO SCH ×2 (17:49→23:46)
[2017-12-19] MEDS ORDERED: OPTIRAY 320 IV PRN (20:15)
--- NOTE | 2017-12-19 20:27 | DIAGNOSTIC IMAGING REPORT ---
LIVER (ABDOMEN) COMBO CLINICAL HISTORY: 57 years-old Male presenting with elevated liver functions , 4 phase. TECHNIQUE: Multidetector CT of the abdomen was performed before and after the administration of intravenous contrast. IV contrast: 116 mL of Optiray 320. A dose lowering technique was used consistent with the principles of ALARA (as low as reasonably achievable). COMPARISON: 10/20/2016. CT DOSE (mGy.cm): The estimated cumulative dose is 1321.76 mGy.cm. FINDINGS: Developer Analyst topogram: Unremarkable. Lung bases: Minimal basilar opacities, likely atelectasis. Interval resolution of the previously noted complete collapse of the right lower lobe. Normal heart size. No pericardial or pleural effusion. Liver: Mildly enlarged measuring 21 cm in sagittal dimension. Density consistent with severe hepatic steatosis. 1.7 cm lesion in the inferior right hepatic lobe does not demonstrate significant enhancement on any of the phases and is hyperdense on noncontrast relative to surrounding severely steatotic liver parenchyma. Numerous additional similar-appearing and less prominent lesions are evident elsewhere in the liver, the largest in the left hepatic lobe measuring 2.3 cm (series 3 image 55). The attenuation does not match that of the blood flow nor water attenuation. Findings consistent with multifocal hypovascular lesions. The appearance is unchanged from prior exam. Patent hepatic vasculature. Biliary: No intrahepatic or extrahepatic biliary ductal dilatation. Gallbladder decompressed. Pancreas: Normal. Spleen: Normal. Adrenal glands: Normal. Kidneys and ureters: Normal. No hydronephrosis. Bowel: Normal. No bowel obstruction. Peritoneal cavity: No free fluid or intraperitoneal gas. Lymph nodes: No enlarged lymph nodes in the abdomen. Vasculature: Atherosclerosis of the normal caliber abdominal aorta. IVC patent. Abdominal wall: Normal. Musculoskeletal: Degenerative changes of the spine. Multiple old rib fractures noted bilaterally. IMPRESSION: 1. Multifocal hypovascular lesions throughout the severely steatotic an enlarged liver. The appearance is unchanged from prior exam over one year ago. This is consistent with a benign etiology these remain indeterminant. Hemangiomas would be expected to enhance attenuation that matches the blood pool, which is not evident in these lesions. Differential considerations include focal nodular hyperplasia among other benign etiologies. If there is clinical concern, contrast-enhanced MR of the liver could be considered. Electronically signed by: Peter Fabian M.D. 12/19/2017 8:25 PM Dictated Date/Time: 12/19/2017 8:14 PM
[2017-12-19] MEDS: LEVETIRACETAM 500 MG TAB PO SCH (20:35)
[2017-12-20] VITALS (7 sets, daily range): BP systolic 103–138; BP diastolic 63–98; PULSE 79–96; TEMP 36.7–37; O2SAT 93–98
[2017-12-20 07:09] LABS: INR 1.1 (0.9-1.1)
[2017-12-20 07:20] LABS: HEMATOCRIT 37.5 % (42-52); HEMOGLOBIN 13.4 g/dL (14.0-18.0); MEAN CELL VOLUME 91.2 fL (80-100); MEAN CORPUSCULAR HEMOGLOBIN 32.6 pg (25-34); MEAN CORPUSCULAR HGB CONC 35.7 g/dl (32-36); RED CELL DISTRIBUTION WIDTH CV 11.9 % (11.5-14.5); RED CELL DISTRIBUTION WIDTH SD 39.9 fL (36.4-46.3); WHITE BLOOD COUNT 2.04 K/uL (4.8-10.8)
[2017-12-20 07:28] LABS: ALBUMIN 3.2 gm/dl (3.4-5.0); CALCIUM 8.8 mg/dl (8.5-10.1); CREATININE 0.45 mg/dl (0.60-1.40); PHOSPHORUS 3.4 mg/dl (2.5-4.9); POTASSIUM 3.5 mmol/L (3.5-5.1); TOTAL PROTEIN 6.7 gm/dl (6.4-8.2)
[2017-12-20] MEDS: LORAZEPAM 1MG IV ACTIVE PROTOCOL IV PRN ×2 (07:36→14:25)
[2017-12-20] MEDS: THIAMINE HCL INJ 100 MG in SYRINGE 9 ML IV SCH (07:37)
[2017-12-20] MEDS: DILTIAZEM HCL 120 MG CAPCR PO SCH (07:37)
[2017-12-20] MEDS: LEVETIRACETAM 500 MG TAB PO SCH ×2 (07:38→20:24)
[2017-12-20 07:43] LABS: MEAN PLATELET VOLUME 10.4 fL (7.4-10.4); PLATELET COUNT 20 K/uL (130-400)
[2017-12-20] MEDS ORDERED: GABAPENTIN 600MG Q8H DOSE PO SCH (08:00)
--- NOTE | 2017-12-20 15:49 | PROGRESS NOTE ---
DATE: 12/20/2017 I saw Stuart today. He is a little tremulous, but otherwise is at his baseline. His speech is mildly dysarthric pattern, which I think is chronic and is a little bit of cerebellar dysmetria. I did not get him up to walk him. There have been no further seizure activities, back on his medications as liver functions remain elevated. Looking through some of the social service notes, there is clearly a mismatch between what he reports his alcohol intake and compliance with medications and what the family has noticed and as I suspected the family members claim, he has been drinking excessively and noncompliant with medications. He is also apparently refusing to go to [facility] or to any alcohol rehabilitation programs which frankly to me is no surprise. I am going to look at him again tomorrow, but at this point I am not sure neurology has much more to offer other than to maintain his current anticonvulsants if I will take him and to follow up as we recommended previously in the clinic with Dr. Adelaida Lau and Dr. Adelaida Mckeon. [facility]in
--- NOTE | 2017-12-20 16:21 | Critical Care Consultation ---
Critical Care Consultation Date of Consultation: Dec 20, 2017. Attending Physician: Bella Sauceda M.D. Reason for Consultation: Alcohol withdrawal. History of Present Illness Dear Dr. Sauceda: Thank you very kind referral Mr. Pichardo to critical care service. This is 57- year-old gentleman with history of alcoholism, frequent admission to the hospital due to alcohol withdrawal, last month he was admitted to the hospital and return back again after he was drinking with his brother according to him. Patient was admitted for the past 2 days a regular floor and was started on gabapentin. The patient today was found to have increased confusion, and his alcohol withdrawal scale was above then 10. Dr. Sauceda was contacted and she asked me to evaluate the patient for the need for ICU stay. When I interviewed the patient, he was following commands and answering questions. He appeared to be chronically confused but not acutely. He does not have any tremor and his vital signs remained stable. He does have the urge to drink alcohol but at the moment he does not have any sympathetic symptoms. The patient laboratory were reviewed as well as his data. His review of system otherwise was unremarkable except for one episode of fall at the bathroom. Without loss of consciousness. He did not have any shortness of breath no cough no sputum production. No abdominal pain no change in bowel movements or urine habits. He claimed right shoulder pain and and not related to the fall. Family History Diabetes mellitus FH: cancer MOTHER (pancreatic CA ) FH: heart disease FATHER ([place] age 68 ) Hypertension Social History Smoking Status: Current Every Day Smoker Smokeless Tobacco Use: No Alcohol Use: heavy Drug Use: other (pt denies drug use) Marital Status: Housing Status: lives alone Occupation Status: unemployed Allergies Coded Allergies: Ibuprofen (Unverified Allergy, Unknown, FACIAL SWELLING, 12/19/17) Home Medications Scheduled Diltiazem HCl (Diltiazem Cd), 120 MG PO QAM Folic Acid (Folic Acid), 1 MG PO QAM Levetiracetam (Keppra), 1,000 MG PO Q12 Quetiapine Fumarate (Seroquel), 50 MG PO DAILY Thiamine HCl (Vitamin B-1), 100 MG PO QAM Scheduled PRN Diphenhydramine Hcl (Allergy), 25 MG PO UD PRN for Allergy Symptoms Current Inpatient Medications Current Inpatient Medications Medications (Trade) Dose Ordered Sig/Rica Route Start Time Stop Time Status Last Admin Dose Admin Thiamine HCl 100 mg/Syringe 10 ml @ 2 mls/min QAM IV 12/19/17 11:15 01/18/18 11:14 12/20/17 07:37 2 MLS/MIN Diltiazem HCl (Cardizem Cd Cap) 120 mg QAM PO 12/20/17 09:00 01/19/18 08:59 12/20/17 07:37 120 MG Folic Acid (Folvite Tab) 1 mg QAM PO 12/20/17 09:00 01/19/18 08:59 12/20/17 07:38 1 MG Levetiracetam (Keppra Tab) 1,000 mg Q12 PO 12/19/17 21:00 01/18/18 20:59 12/20/17 07:38 1,000 MG Ioversol (Optiray 320) 125 ml UD PRN IV 12/19/17 20:15 12/23/17 20:14 Review of Systems Constitutional: No fever, No chills, No sweats, No weight loss, No weakness, No fatigue, No problem reported Eyes: No worsening of vision, No eye pain, No redness, No discharge, No diplopia, No problem reported Respiratory: No cough, No sputum, No wheezing, No shortness of breath, No dyspnea on exertion, No dyspnea at rest, No hemoptysis, No problem reported Cardiovascular: No chest pain, No orthopnea, No PND, No edema, No claudication , No palpitations, No problem reported Abdomen: No pain, No nausea, No vomiting, No diarrhea, No constipation, No GI bleeding, No problem reported Musculoskeletal: + joint pain Genitourinary - Male: No hematuria, No dysuria, No urinary frequency, No urinary urgency, No urinary hesitancy, No urinary retention, No urinary incontinence, No penile discharge, No lesions, No impotence, No problem reported Neurologic: + problem reported (Confusion, not in delirium tremens, he does not have any signs of diaphoresis or other symptoms.) Psychiatric: + substance abuse Hematologic / Lymphatic: No abnormal bleeding/bruising, No clotting problems, No swollen lymph nodes, No night sweats, No problem reported Allergic / Immunologic: No environmental allergies, No seasonal allergies, No pet sensitivities, No food allergies, No hives, No frequent infections, No poor healing, No prolonged convalescence, No problem reported Physical Exam Date Time Temp Pulse Resp B/P (MAP) Pulse Ox O2 Delivery O2 Flow Rate FiO2 12/20/17 14:58 36.7 80 22 112/83 (93) 97 Room Air 12/20/17 11:57 37.0 79 18 118/63 (81) 96 12/20/17 08:00 96 12/20/17 08:00 93 Room Air 12/20/17 06:48 36.7 87 18 138/98 (111) 93 Room Air 12/20/17 03:15 36.9 79 18 122/87 (99) 98 Room Air 12/19/17 23:39 37.1 87 16 125/85 (98) 97 Room Air 12/19/17 20:00 97 Room Air 12/19/17 19:05 36.7 106 23 116/77 (90) 96 Room Air General Appearance: no apparent distress Eyes: EOMI ENT: normal mouth exam, normal throat exam, normal dental exam Neck: normal range of motion Respiratory: breath sounds normal Cardiovasular: regular rate/rhythm, normal S1S2, no M/G/R Abdomen: non tender, no masses, no guarding Upper Extremities: no edema Lower Extremities: no edema Neuro: alert, oriented x 3, normal gait, other (Somewhat anxious but not agitated, no tremor in the upper extremities when held off gravity.) Psychiatric: anxious Laboratory Results Last 24 Hours Test 12/20/17 06:05 White Blood Count 2.04 K/uL Red Blood Count 4.11 M/uL Hemoglobin 13.4 g/dL Hematocrit 37.5 % Mean Corpuscular Volume 91.2 fL Mean Corpuscular Hemoglobin 32.6 pg Mean Corpuscular Hemoglobin Concent 35.7 g/dl RDW Standard Deviation 39.9 fL RDW Coefficient of Variation 11.9 % Platelet Count 20 K/uL Mean Platelet Volume 10.4 fL Platelet Estimate SIGNIFIC DECREASED Peripheral Blood Smear Path Consult Prothrombin Time 11.1 SECONDS Prothromb Time International Ratio 1.1 Sodium Level 136 mmol/L Potassium Level 3.5 mmol/L Chloride Level 104 mmol/L Carbon Dioxide Level 25 mmol/L Anion Gap 7.0 mmol/L Blood Urea Nitrogen 7 mg/dl Creatinine 0.45 mg/dl Est Creatinine Clear Calc Drug Dose 223.7 ml/min Estimated GFR () 146.6 Estimated GFR (Non- 126.5 BUN/Creatinine Ratio 15.3 Random Glucose 88 mg/dl Calcium Level 8.8 mg/dl Phosphorus Level 3.4 mg/dl Magnesium Level 2.0 mg/dl Total Bilirubin 0.9 mg/dl Direct Bilirubin 0.3 mg/dl Aspartate Amino Transf (AST/SGOT) 98 U/L Alanine Aminotransferase (ALT/SGPT) 117 U/L Alkaline Phosphatase 117 U/L Total Protein 6.7 gm/dl Albumin 3.2 gm/dl Globulin 3.5 gm/dl Albumin/Globulin Ratio 0.9 Lipase 150 U/L Diagnostic Results All labs be reviewed which show thrombocytopenia, leukopenia, transaminitis, alcohol level 359, no abnormal imaging. Assessment & Plan 1. Alcoholism. 2. Alcohol withdrawal but not in delirium tremens. 3. Thrombocytopenia and leukopenia. 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 4. Alcohol-related seizure. 5. Transaminitis. Plan: 1. Discontinue gabapentin. 2. The patient is lucid and can be started on Librium 50 mg p.o. every 6 hours. 3. Use phenobarbital 65 mg every 4 hours IV as needed for agitation. 4. The patient is not showing signs of sympathetic surge, does not require ICU monitoring at this point. 5. Continue thiamine and folic acid. 6. Watch the patient from falling as he is platelet count is only 20. Thank you for your kind referral, CCT 35 minutes.
[2017-12-20] MEDS: CHLORDIAZEPOXIDE 25 MG CAP PO SCH ×2 (18:00→23:22)
[2017-12-20] MEDS: PHENOBARBITAL SOD INJ 65 MG in SYRINGE 0 ML IV PRN ×2 (18:01→23:17)
--- NOTE | 2017-12-20 22:28 | Progress Note ---
Internal Med Progress Note Date of Service: Dec 20, 2017. Provider Documentation: SUBJECTIVE: Patient appears to be very anxious, having tremors got loading dose of Neurontin No seizure-like activity OBJECTIVE: Vital Signs-as noted below Exam: Physical exam: General very disheveled, chronically ill appearing, anxious, tremors HEENT: Clear nonicteric PERRLA/EOMI Neck: Supple, no JVD no carotid bruit no thyromegaly, trachea midline Lungs: Clear to auscultate no wheeze or rales Heart: Regular, tachycardic, no lower extremity edema, no carotid bruit, no JVD Extremity: Large bruise on the left flank area-age indeterminant, nonblanching, no overlying skin lesion, multiple red rash/spots in finger webspace hands arms and shoulders-concern possible scabies infection Multiple bruits on both lower extremity-patient reports of multiple falls Neuro: Tremors in outstretched hand no focal neuro deficit noted Lab data as noted below. ASSESSMENT & PLAN: ALCOHOL INTOXICATION/POLYSUBSTANCE ABUSE Developed continued agitation, anxiety and suggestive of withdrawal symptoms Critical care consulted Appreciate input from cpr ambulance driver Dr. Wu Recommend to DC gabapentin Patient is started with Librium 50 mg every 6 hours And added phenobarbital 65 mg every 4 hours as needed for agitation Does not believe patient needs to be monitored in ICU at this point Continue thiamine folic acid History of chronic alcohol intoxication/abuse Multiple admissions/ER visits in the past with similar symptom Presented with intoxicated status blood alcohol level more than 380; with positive marijuana Was started with Neurontin alcohol withdrawal protocol- discontinued on Librium p.o. As needed IV Ativan for withdrawal Caution for delirium tremens CONFUSION/DELIRIUM/METABOLIC ENCEPHALOPATHY DUE TO ALCOHOL INTOXICATION / POSSIBLE WERNICKE'S ENCEPHALOPATHY Due to alcohol intoxication With a lot of confabulation noted, Continue thiamine and folate acid Fall precaution SEIZURE LIKE ACTIVITY REPORTED BY PATIENT VS ALCOHOL WITHDRAWAL SEIZURE Did not had any witnessed seizure Very hard to confirm a true seizure episode, as patient was not able to give any good history Has been on Keppra-questionable medication compliance Patient is continued with Keppra 1000 mg twice daily Ordered for seizure precaution Neuro evaluation requested-appreciate input HYPONATREMIA CHRONIC Appreciate input from nephrology Normal saline at 100 mL/h Basic metabolic panel every 8 hours Slow correction not more 4-6 mmol in 24 hrs Due to chronic alcohol abuse HYPOKALEMIA Corrected Poor p.o. intake/alcoholism Nausea vomiting or diarrhea Replaced with oral potassium tablet Repeat PRP TRANSAMINITIS AST greater than ALT With elevated alkaline phosphatase Due to alcoholic liver disease/hepatitis Follow liver enzymes Right upper quadrant ultrasound 1. Hepatic steatosis with suggested hepatomegaly. 2. No cholelithiasis or sonographic evidence of acute cholecystitis. 3. No biliary ductal dilation. 4. Hepatopedal flow within the portal vein with normal appearance of the hepatic vasculature. GI evaluation appreciated HISTORY OF PAF/A. FIB Continue with diltiazem Not a candidate for chronic anticoagulation secondary to alcohol intoxication/ abuse/high fall risk EKG shows prolonged QTC 480 hold trazodone/avoid medication that can cause worsening of QT prolongation ( e.g Zofran/quinolones) Monitor in telemetry SIGNIFICANT THROMBOCYTOPENIA Platelet count 28-> 20 secondary to alcoholic liver disease Avoid all antiplatelet/anticoagulation Follow CBC daily FALL/AMBULATORY DYSFUNCTION Multiple bruise on extremities, secondary to fall High bleeding risks secondary to fall secondary to thrombocytopenia Possible secondary to alcohol intoxication PT OT evaluation Fall precaution ITCHING SKIN RASH /CONCERN FOR POSSIBLE SCABIES : contact isolation topical solution CODE STATUS: Full code DVT prophylaxis: SCD and teds Vision is encouraged to ambulate No pharmacological anticoagulation secondary to thrombocytopenia DISPOSITION: To be determined Patient will benefit from alcohol rehab Patient refused rehab in past Social service consulted for discharge planning PT OT evaluation requested Vital Signs: Date Time Temp Pulse Resp B/P (MAP) Pulse Ox O2 Delivery O2 Flow Rate FiO2 12/21/17 18:41 36.8 96 20 131/100 (110) 99 Room Air 12/21/17 15:19 36.4 93 20 144/92 (109) 98 Room Air 12/21/17 10:56 36.5 83 20 123/88 (100) 98 Room Air 12/21/17 08:00 Room Air 12/21/17 06:54 36.5 72 18 148/98 (115) 98 Room Air 12/21/17 03:05 36.6 62 18 135/95 (108) 98 Room Air 12/20/17 23:59 Room Air 12/20/17 23:00 36.8 83 18 103/75 (84) 98 Room Air Lab Results: Results Past 24 Hours Test 12/21/17 06:34 Range/Units White Blood Count 2.19 4.8-10.8 K/uL Red Blood Count 4.23 4.7-6.1 M/uL Hemoglobin 13.8 14.0-18.0 g/dL Hematocrit 38.5 42-52 % Mean Corpuscular Volume 91.0 80-100 fL Mean Corpuscular Hemoglobin 32.6 25-34 pg Mean Corpuscular Hemoglobin Concent 35.8 32-36 g/dl RDW Standard Deviation 39.4 36.4-46.3 fL RDW Coefficient of Variation 11.7 11.5-14.5 % Platelet Count 31 130-400 K/uL Mean Platelet Volume 11.2 7.4-10.4 fL Sodium Level 134 136-145 mmol/L Potassium Level 3.2 3.5-5.1 mmol/L Chloride Level 101 98-107 mmol/L Carbon Dioxide Level 25 21-32 mmol/L Anion Gap 8.0 3-11 mmol/L Blood Urea Nitrogen 4 7-18 mg/dl Creatinine 0.44 0.60-1.40 mg/dl Est Creatinine Clear Calc Drug Dose 229.4 ml/min Estimated GFR () 148.0 Estimated GFR (Non- 127.7 BUN/Creatinine Ratio 10.2 10-20 Random Glucose 91 70-99 mg/dl Calcium Level 8.4 8.5-10.1 mg/dl Phosphorus Level 3.4 2.5-4.9 mg/dl Magnesium Level 1.8 1.8-2.4 mg/dl Total Bilirubin 0.9 0.2-1 mg/dl Direct Bilirubin 0.3 0-0.2 mg/dl Aspartate Amino Transf (AST/SGOT) 106 15-37 U/L Alanine Aminotransferase (ALT/SGPT) 118 12-78 U/L Alkaline Phosphatase 127 45-117 U/L Total Protein 7.1 6.4-8.2 gm/dl Albumin 3.5 3.4-5.0 gm/dl Globulin 3.6 2.5-4.0 gm/dl Albumin/Globulin Ratio 1.0 0.9-2
[2017-12-20] MEDS ORDERED: NICOTINE 14 MG/24 HR TDSY TD ONE (23:04)
[2017-12-21] VITALS (7 sets, daily range): BP systolic 123–148; BP diastolic 88–100; PULSE 62–102; TEMP 36.1–36.8; O2SAT 95–100
[2017-12-21] MEDS: CHLORDIAZEPOXIDE 25 MG CAP PO SCH ×5 (05:45→23:55)
[2017-12-21] MEDS: PHENOBARBITAL SOD INJ 65 MG in SYRINGE 0 ML IV PRN ×4 (06:26→18:54)
[2017-12-21 07:03] LABS: HEMATOCRIT 38.5 % (42-52); HEMOGLOBIN 13.8 g/dL (14.0-18.0); MEAN CORPUSCULAR HEMOGLOBIN 32.6 pg (25-34); MEAN CORPUSCULAR HGB CONC 35.8 g/dl (32-36); MEAN PLATELET VOLUME 11.2 fL (7.4-10.4); PLATELET COUNT 31 K/uL (130-400); RED CELL DISTRIBUTION WIDTH CV 11.7 % (11.5-14.5); RED CELL DISTRIBUTION WIDTH SD 39.4 fL (36.4-46.3); WHITE BLOOD COUNT 2.19 K/uL (4.8-10.8)
[2017-12-21 07:30] LABS: ALBUMIN 3.5 gm/dl (3.4-5.0); CALCIUM 8.4 mg/dl (8.5-10.1); CREATININE 0.44 mg/dl (0.60-1.40); PHOSPHORUS 3.4 mg/dl (2.5-4.9); POTASSIUM 3.2 mmol/L (3.5-5.1); TOTAL PROTEIN 7.1 gm/dl (6.4-8.2)
[2017-12-21] MEDS: THIAMINE HCL INJ 100 MG in SYRINGE 9 ML IV SCH (07:44)
[2017-12-21] MEDS: LEVETIRACETAM 500 MG TAB PO SCH ×2 (07:45→20:07)
[2017-12-21] MEDS: DILTIAZEM HCL 120 MG CAPCR PO SCH (07:45)
[2017-12-21] MEDS: NICOTINE 14 MG/24 HR TDSY TD SCH (07:46)
[2017-12-21] MEDS ORDERED: GABAPENTIN 600MG Q12H DOSE PO SCH (12:00)
[2017-12-21] MEDS: OLANZAPINE 10 MG TAB PO SCH ×2 (13:04→20:46)
--- NOTE | 2017-12-21 13:04 | Critical Care Progress Note ---
Critical Care Progress Note Date of Service Dec 21, 2017. Attending Dr. Wu Subjective The patient is more stable today, he does not have any tremor, no events of seizure activity, he has been agitated requiring total of 4 doses of phenobarbital overnight. Objective Physical exam on 12/21/2017 revealed middle-age gentleman, does not appear to be in any distress, somewhat confused but he is answering questions and following commands, no chest pain reported, vital signs are stable, S1-S2 regular rate and rhythm, lungs are clear, no tremor to my exam. He is sitting in a chair comfortably. His labs also were reviewed which showed platelets improved to 31, 000 and he continued to have leukopenia. Assessment & Plan 1. Alcoholism with alcohol withdrawal. 2. He is not showing any signs of catecholamine surge to support the diagnosis of delirium tremens at this point. 3. Alcohol hallucination. 4. Thrombocytopenia and leukopenia related to bone marrow suppression secondary to alcohol use. Plan: 1. I will increase Librium to 50 mg p.o. every 4 hours. 2. If the patient requirement of phenobarbital is decreased, will discontinue it in the morning. 3. As the patient continued to be lucid, I would wean him off the withdrawal using Librium. 4. Add Zyprexa 10 mg p.o. twice daily for the second phase of alcohol withdrawal. 5. Agree with the rest of her management. 6. Disposition plan as the patient has frequent admissions to the hospital for alcohol withdrawal. 7. Change thiamine to p.o. Thank you. Data Medications: Current Inpatient Medications Medications (Trade) Dose Ordered Sig/Rica Route Start Time Stop Time Status Last Admin Dose Admin Diltiazem HCl (Cardizem Cd Cap) 120 mg QAM PO 12/20/17 09:00 01/19/18 08:59 12/21/17 07:45 120 MG Folic Acid (Folvite Tab) 1 mg QAM PO 12/20/17 09:00 01/19/18 08:59 12/21/17 07:45 1 MG Levetiracetam (Keppra Tab) 1,000 mg Q12 PO 12/19/17 21:00 01/18/18 20:59 12/21/17 07:45 1,000 MG Ioversol (Optiray 320) 125 ml UD PRN IV 12/19/17 20:15 12/23/17 20:14 Phenobarbital Sodium 65 mg/ Syringe 1 ml @ 0.923 mls/ min Q4 PRN IV 12/20/17 16:15 01/19/18 16:14 12/21/17 10:23 0.923 MLS/MIN Nicotine (Nicoderm Cq 14MG Patch) 1 patch QAM TD 12/21/17 09:00 01/20/18 08:59 12/21/17 07:46 1 PATCH Miscellaneous (Remove Nicoderm Patch) 1 ea HS N/A 12/21/17 21:00 01/20/18 20:59 Chlordiazepoxide (Librium Cap) 50 mg Q4 PO 12/21/17 12:00 01/20/18 11:59 12/21/17 11:47 50 MG Olanzapine (Zyprexa Tab) 10 mg BID PO 12/21/17 11:00 01/20/18 10:59 Vital Signs: Date Time Temp Pulse Resp B/P (MAP) Pulse Ox O2 Delivery O2 Flow Rate FiO2 12/21/17 10:56 36.5 83 20 123/88 (100) 98 Room Air 12/21/17 08:00 Room Air 12/21/17 06:54 36.5 72 18 148/98 (115) 98 Room Air 12/21/17 03:05 36.6 62 18 135/95 (108) 98 Room Air 12/20/17 23:59 Room Air 12/20/17 23:00 36.8 83 18 103/75 (84) 98 Room Air 12/20/17 20:00 Room Air 12/20/17 18:51 36.7 84 18 131/93 (106) 96 Room Air 12/20/17 14:58 36.7 80 22 112/83 (93) 97 Room Air Laboratory Results: Last 24 Hours Test 12/21/17 06:34 White Blood Count 2.19 K/uL Red Blood Count 4.23 M/uL Hemoglobin 13.8 g/dL Hematocrit 38.5 % Mean Corpuscular Volume 91.0 fL Mean Corpuscular Hemoglobin 32.6 pg Mean Corpuscular Hemoglobin Concent 35.8 g/dl RDW Standard Deviation 39.4 fL RDW Coefficient of Variation 11.7 % Platelet Count 31 K/uL Mean Platelet Volume 11.2 fL Sodium Level 134 mmol/L Potassium Level 3.2 mmol/L Chloride Level 101 mmol/L Carbon Dioxide Level 25 mmol/L Anion Gap 8.0 mmol/L Blood Urea Nitrogen 4 mg/dl Creatinine 0.44 mg/dl Est Creatinine Clear Calc Drug Dose 229.4 ml/min Estimated GFR () 148.0 Estimated GFR (Non- 127.7 BUN/Creatinine Ratio 10.2 Random Glucose 91 mg/dl Calcium Level 8.4 mg/dl Phosphorus Level 3.4 mg/dl Magnesium Level 1.8 mg/dl Total Bilirubin 0.9 mg/dl Direct Bilirubin 0.3 mg/dl Aspartate Amino Transf (AST/SGOT) 106 U/L Alanine Aminotransferase (ALT/SGPT) 118 U/L Alkaline Phosphatase 127 U/L Total Protein 7.1 gm/dl Albumin 3.5 gm/dl Globulin 3.6 gm/dl Albumin/Globulin Ratio 1.0
--- NOTE | 2017-12-21 14:58 | PROGRESS NOTE ---
DATE: 12/21/2017 Stuart has gotten more into florid delirium treatments. While he is oriented to place, he is agitated, at times aggressive verbally, insists on going home and is more tremulous than he was yesterday. No seizure activity has been noted. He is on the gabapentin protocol. He has taken some Librium, Zyprexa, phenobarbital and is on his Keppra IV. No seizure activity has been reported. Laboratory studies show a normal white count, his liver functions remain elevated and at this point unfortunately neurology does not have a whole lot to offer other than perhaps a psychiatry evaluation for further advice controlling his behavior and continuing his anticonvulsants. He is being seen by critical care and hopefully things will cool off in the next few days. I will take a look at him 1 more time tomorrow in the hospital later in the afternoon, but for now again there is not a lot more to do other than wait this out and hope his mental status clears in the next few days. DURAN
--- NOTE | 2017-12-21 17:52 | Progress Note ---
Internal Med Progress Note Date of Service: Dec 21, 2017. Provider Documentation: SUBJECTIVE: More anxious and agitated today Required multiple doses of IV Ativan Appreciate input from Dr. Wu Medication dose adjusted for alcohol withdrawal OBJECTIVE: Vital Signs-as noted below Exam: Physical exam: General very disheveled, chronically ill appearing, intoxicated, HEENT: Clear nonicteric PERRLA/EOMI Neck: Supple, no JVD no carotid bruit no thyromegaly, trachea midline Lungs: Clear to auscultate no wheeze or rales Heart: Regular, tachycardic, no lower extremity edema, no carotid bruit, no JVD Extremity: Large bruise on the left flank area-age indeterminant, nonblanching, no overlying skin lesion, multiple red rash/spots in finger webspace hands arms and shoulders-concern possible scabies infection Multiple bruits on both lower extremity-patient reports of multiple falls Neuro: Groggy due to medication, no focal neuro deficit noted Lab data as noted below. ASSESSMENT & PLAN: ALCOHOL INTOXICATION/POLYSUBSTANCE ABUSE History of chronic alcohol intoxication/abuse Multiple admissions/ER visits in the past with similar symptom Presents with intoxicated status blood alcohol level more than 380; with positive marijuana Critical care consulted, appreciate input Was started with Neurontin alcohol withdrawal protocol Discontinued part critical care recommendation Started with Librium 50 mg p.o. every 6 hours As needed IV Ativan for withdrawal Caution for delirium tremens CONFUSION/DELIRIUM/METABOLIC ENCEPHALOPATHY DUE TO ALCOHOL INTOXICATION / POSSIBLE WERNICKE'S ENCEPHALOPATHY Due to alcohol abuse/intoxication CT head without contrast shows no evidence of acute CVA Ordered for thiamine and folate SEIZURE LIKE ACTIVITY VS ALCOHOL WITHDRAWAL SEIZURE Patient reports of seizure Did not have any witnessed seizure episode Very hard to confirm a true seizure episode, as patient was not able to give any good history Has been on Keppra-questionable medication compliance Continued with Keppra 1000 mg twice daily Ordered for seizure precaution Neuro evaluation requested-appreciate input Recommend to continue with Keppra Patient's lot of the neurological symptoms possibly secondary to alcohol abuse intoxication HYPONATREMIA CHRONIC Appreciate nephrology evaluation Due to alcohol abuse Ordered for IV fluids normal saline as per the patient appear to be dehydrated Follow PRP every 8 hours Slow collection HYPOKALEMIA ordered for oral potassium tablet Repeat PRP TRANSAMINITIS AST greater than ALT With elevated alkaline phosphatase Due to alcoholic liver disease/hepatitis Right upper quadrant ultrasound Shows hepatic steatosis No evidence of gallbladder disease GI evaluation appreciated CT abdomen pelvis: Shows severely steatotic liver, no splenomegaly HISTORY OF PAF/A. FIB Continue with diltiazem Not a candidate for chronic anticoagulation secondary to alcohol intoxication/ abuse/high fall risk EKG shows prolonged QTC 480 trazodone on hold/avoid medication that can cause worsening of QT prolongation (e.g Zofran/quinolones) Monitoring telemetry SIGNIFICANT THROMBOCYTOPENIA Platelet count 28->20->31 secondary to alcoholic abuse Avoid all antiplatelet/anticoagulation No indication for platelet transfusion until platelet count drops below 10 or any evidence of active bleeding Follow CBC daily peripheral blood smear 1. NORMOCHROMIC/NORMOCYTIC RED BLOOD CELLS, UNREMARKABLE LEUKOCYTES, AND MARKEDLY DECREASED NUMBERS OF PLATELETS ARE SEEN. 2. PLATELET CLUMPING IS NOT PRESENT. 3. BLASTS AND SCHISTOCYTES ARE NOT SEEN. 4. THE CLINICAL HISTORY OF ALCOHOL USE IS NOTED. Strict fall precaution Ordered for bed alarm, chair alarm High bleeding risk due to fall secondary to severe thrombocytopenia FALL/AMBULATORY DYSFUNCTION Multiple bruise on extremities, secondary to fall Possible secondary to alcohol intoxication PT OT evaluation Fall precaution ITCHING SKIN RASH /CONCERN FOR POSSIBLE SCABIES : contact isolation topical solution CODE STATUS: Full code DVT prophylaxis: SCD and teds No pharmacological anticoagulation secondary to thrombocytopenia DISPOSITION: To be determined Patient will benefit from alcohol rehab Refused rehab in past Social service consulted for discharge planning PT OT evaluation requested Vital Signs: Date Time Temp Pulse Resp B/P (MAP) Pulse Ox O2 Delivery O2 Flow Rate FiO2 12/21/17 18:41 36.8 96 20 131/100 (110) 99 Room Air 12/21/17 15:19 36.4 93 20 144/92 (109) 98 Room Air 12/21/17 10:56 36.5 83 20 123/88 (100) 98 Room Air 12/21/17 08:00 Room Air 12/21/17 06:54 36.5 72 18 148/98 (115) 98 Room Air 12/21/17 03:05 36.6 62 18 135/95 (108) 98 Room Air 12/20/17 23:59 Room Air 12/20/17 23:00 36.8 83 18 103/75 (84) 98 Room Air Lab Results: Results Past 24 Hours Test 12/21/17 06:34 Range/Units White Blood Count 2.19 4.8-10.8 K/uL Red Blood Count 4.23 4.7-6.1 M/uL Hemoglobin 13.8 14.0-18.0 g/dL Hematocrit 38.5 42-52 % Mean Corpuscular Volume 91.0 80-100 fL Mean Corpuscular Hemoglobin 32.6 25-34 pg Mean Corpuscular Hemoglobin Concent 35.8 32-36 g/dl RDW Standard Deviation 39.4 36.4-46.3 fL RDW Coefficient of Variation 11.7 11.5-14.5 % Platelet Count 31 130-400 K/uL Mean Platelet Volume 11.2 7.4-10.4 fL Sodium Level 134 136-145 mmol/L Potassium Level 3.2 3.5-5.1 mmol/L Chloride Level 101 98-107 mmol/L Carbon Dioxide Level 25 21-32 mmol/L Anion Gap 8.0 3-11 mmol/L Blood Urea Nitrogen 4 7-18 mg/dl Creatinine 0.44 0.60-1.40 mg/dl Est Creatinine Clear Calc Drug Dose 229.4 ml/min Estimated GFR () 148.0 Estimated GFR (Non- 127.7 BUN/Creatinine Ratio 10.2 10-20 Random Glucose 91 70-99 mg/dl Calcium Level 8.4 8.5-10.1 mg/dl Phosphorus Level 3.4 2.5-4.9 mg/dl Magnesium Level 1.8 1.8-2.4 mg/dl Total Bilirubin 0.9 0.2-1 mg/dl Direct Bilirubin 0.3 0-0.2 mg/dl Aspartate Amino Transf (AST/SGOT) 106 15-37 U/L Alanine Aminotransferase (ALT/SGPT) 118 12-78 U/L Alkaline Phosphatase 127 45-117 U/L Total Protein 7.1 6.4-8.2 gm/dl Albumin 3.5 3.4-5.0 gm/dl Globulin 3.6 2.5-4.0 gm/dl Albumin/Globulin Ratio 1.0 0.9-2
[2017-12-21] MEDS ORDERED: PHENOBARBITAL SOD INJ 65 MG in SYRINGE 0 ML IV ONE (20:45)
[2017-12-22] VITALS (7 sets, daily range): BP systolic 100–123; BP diastolic 66–82; PULSE 71–100; TEMP 36.3–36.5; O2SAT 97–99
[2017-12-22] MEDS: PHENOBARBITAL SOD IV PRN ×2 (00:40→05:57)
[2017-12-22] MEDS ORDERED: LORAZEPAM 2 MG/ML 1 ML VIAL IV PRN ×2 (02:00)
[2017-12-22] MEDS: CHLORDIAZEPOXIDE 25 MG CAP PO SCH ×2 (04:26→07:50)
[2017-12-22 06:26] LABS: HEMATOCRIT 37.1 % (42-52); HEMOGLOBIN 13.4 g/dL (14.0-18.0); MEAN CELL VOLUME 92.8 fL (80-100); MEAN CORPUSCULAR HEMOGLOBIN 33.5 pg (25-34); MEAN CORPUSCULAR HGB CONC 36.1 g/dl (32-36); RED CELL DISTRIBUTION WIDTH CV 11.7 % (11.5-14.5); RED CELL DISTRIBUTION WIDTH SD 39.4 fL (36.4-46.3); WHITE BLOOD COUNT 2.86 K/uL (4.8-10.8)
[2017-12-22 06:34] LABS: MEAN PLATELET VOLUME 10.5 fL (7.4-10.4); PLATELET COUNT 45 K/uL (130-400)
[2017-12-22 07:12] LABS: ALBUMIN 3.6 gm/dl (3.4-5.0); CALCIUM 8.6 mg/dl (8.5-10.1); CREATININE 0.63 mg/dl (0.60-1.40); PHOSPHORUS 3.5 mg/dl (2.5-4.9); POTASSIUM 3.1 mmol/L (3.5-5.1); TOTAL PROTEIN 7.4 gm/dl (6.4-8.2)
[2017-12-22] MEDS ORDERED: MAGNESIUM SULFATE 1GM / D5W 100 ML IV STA (07:18)
[2017-12-22] MEDS ORDERED: POTASSIUM CHLORIDE 10 MEQ TABCR PO ONE (07:45)
[2017-12-22] MEDS: POTASSIUM CHLR 10 MEQ / WTR 100 ML IV SCH ×2 (07:52→10:27)
[2017-12-22] MEDS: DILTIAZEM HCL 120 MG CAPCR PO SCH (07:53)
[2017-12-22] MEDS: LEVETIRACETAM 500 MG TAB PO SCH ×2 (07:54→21:49)
[2017-12-22] MEDS: NICOTINE 14 MG/24 HR TDSY TD SCH (07:54)
[2017-12-22] MEDS: OLANZAPINE 10 MG TAB PO SCH ×2 (07:54→21:48)
[2017-12-22] MEDS ORDERED: DIAZEPAM INJ 5 MG/ML 2 ML CARP IV PRN (09:45)
--- NOTE | 2017-12-22 11:50 | Psychiatric Consultation ---
Psychiatric Consultation Date of Service: Dec 22, 2017. Attempted to see pt, he is qutie sedated and only recently settled down will come back tomorrow to try to assess pt spoke to 1:1 who indicated he has been calm past few hours and asleep since she came on past hour spoke to nurse who indicated only oriented to person in recent interactions, was quite agitated and verbally aggressive last night into this morning. review of records including nursing notes and pt is likely having delirium symptoms from alcohol withdrawal of note gabapentin, and Librium wean appears completed and both meds d/c as of this morning on phenobarbital, has Valium prn (not yet given) on zyprexa 10mg bid
--- NOTE | 2017-12-22 11:53 | PROGRESS NOTE ---
DATE: 12/22/2017 Stuart became more agitated after I saw him in the afternoon. He was already fairly agitated and apparently was combative with staff most of the evening. He has received some sedation and finally just exhausted himself and fell asleep. According to his one-on-one nurse, he ate breakfast and seems a little calmer today, but it is earlier in the day and on my examination he is very lethargic, sleepy, barely arousable, and I elected not to waken him for fear of hisgetting more agitated again. No seizure activity has been reported. Clearly this man has not been compliant with his medications. He has also been consuming ethanol and he is now in the throes of alcohol withdrawal. Hopefully, he will emerge from this in the next few days. Neurology is going to back out of the care at this point. It is felt, he may have a true underlying seizure disorder unrelated to the alcohol and plans were to have him follow up in our office with Keppra levels, etc. I would recommend this when he is finally discharged, but I am sure he will not comply unless things change drastically. We will be happy to take a look at him again if there are questions during the rest of his hospitalization or if his neurologic status changes. DURAN
[2017-12-22] MEDS: PHENOBARBITAL SOD IV SCH ×3 (11:56→22:20)
--- NOTE | 2017-12-22 15:20 | Critical Care Progress Note ---
Critical Care Progress Note Date of Service Dec 22, 2017. Attending Dr. Wu Subjective The patient was agitated on occasions, he pulled his IV, he continued to have behavioral symptoms. He is disoriented and confused at baseline. No visual or auditory hallucinations reported. No tremor either. Objective Physical exam on 12/21/2017 revealed middle-age gentleman, does not appear to be in any distress, somewhat confused but he is answering questions and following commands, no chest pain reported, vital signs are stable, S1-S2 regular rate and rhythm, lungs are clear, no tremor to my exam. He is sitting in a chair comfortably. His labs also were reviewed which showed platelets improved to 31, 000 and he continued to have leukopenia. Physical exam on 12/22/2017 showed middle-aged gentleman, currently he is more somnolent as he just received phenobarbital dose. Not in distress. S1-S2, lungs with distant breath sounds, abdomen is benign, no tremor to my exam. Labs are consistent with leukopenia and thrombocytopenia. Assessment & Plan 1. Alcoholism with alcohol withdrawal. 2. He is not showing any signs of catecholamine surge to support the diagnosis of delirium tremens at this point. His baseline with confusion and altered sensorium. 3. Alcohol hallucination. Not progressed today. 4. Thrombocytopenia and leukopenia related to bone marrow suppression secondary to alcohol use. Plan: 1. I will discontinue his Librium. 2. Continue with phenobarbital and increase the dose to 130 mg IV every 4 hours on a standing basis not as needed. 3. Discontinue Ativan. 4. We will taper the patient off phenobarbital rather than benzodiazepines. 5. Start the patient on clonidine 0.2 mg p.o. twice daily. 6. Continue with one-to-one. 7. Continue thiamine. 8. Oral intake. 9. The patient is incompetent to make a decision and he cannot sign out himself AMA. 10. To mention, Precedex is not adequate treatment for alcohol withdrawal as it does not have the OSITO receptor agonist. 11. Valium 10 mg IV as needed. Thank you. Will follow . Data Medications: Current Inpatient Medications Medications (Trade) Dose Ordered Sig/Rica Route Start Time Stop Time Status Last Admin Dose Admin Diltiazem HCl (Cardizem Cd Cap) 120 mg QAM PO 12/20/17 09:00 01/19/18 08:59 12/22/17 07:53 120 MG Folic Acid (Folvite Tab) 1 mg QAM PO 12/20/17 09:00 01/19/18 08:59 12/22/17 07:53 1 MG Levetiracetam (Keppra Tab) 1,000 mg Q12 PO 12/19/17 21:00 01/18/18 20:59 12/22/17 07:54 1,000 MG Ioversol (Optiray 320) 125 ml UD PRN IV 12/19/17 20:15 12/23/17 20:14 Miscellaneous (Remove Nicoderm Patch) 1 ea HS N/A 12/21/17 21:00 01/20/18 20:59 12/21/17 20:07 1 EA Olanzapine (Zyprexa Tab) 10 mg BID PO 12/21/17 11:00 01/20/18 10:59 12/22/17 07:54 10 MG Potassium Chloride (Klor-Con Tab) 20 meq QAM PO 12/23/17 09:00 01/22/18 08:59 Phenobarbital Sodium 130 mg/ Syringe 1 ml @ 0.45 mls/ min Q4H IV 12/22/17 13:00 01/20/18 20:59 12/22/17 11:56 0.45 MLS/MIN Diazepam (Valium Inj) 10 mg Q4 PRN IV 12/22/17 09:45 01/21/18 09:44 I & O: 24-Hour Column 12/23/17 08:00 Output Total 700 ml Balance -700 ml Vital Signs: Date Time Temp Pulse Resp B/P (MAP) Pulse Ox O2 Delivery O2 Flow Rate FiO2 12/22/17 12:59 90 18 111/77 (88) 99 Room Air 12/22/17 08:00 Room Air 12/22/17 07:01 36.5 91 18 114/82 (93) 97 Room Air 12/22/17 03:07 36.4 71 18 120/79 (93) 98 Room Air 12/21/17 22:57 36.1 77 18 139/97 (111) 95 Room Air 12/21/17 21:40 36.2 102 18 123/90 (101) 100 Room Air 12/21/17 20:00 Room Air 12/21/17 18:41 36.8 96 20 131/100 (110) 99 Room Air 12/21/17 15:19 36.4 93 20 144/92 (109) 98 Room Air Laboratory Results: Last 24 Hours Test 12/22/17 05:35 White Blood Count 2.86 K/uL Red Blood Count 4.00 M/uL Hemoglobin 13.4 g/dL Hematocrit 37.1 % Mean Corpuscular Volume 92.8 fL Mean Corpuscular Hemoglobin 33.5 pg Mean Corpuscular Hemoglobin Concent 36.1 g/dl RDW Standard Deviation 39.4 fL RDW Coefficient of Variation 11.7 % Platelet Count 45 K/uL Mean Platelet Volume 10.5 fL Sodium Level 137 mmol/L Potassium Level 3.1 mmol/L Chloride Level 104 mmol/L Carbon Dioxide Level 25 mmol/L Anion Gap 8.0 mmol/L Blood Urea Nitrogen 10 mg/dl Creatinine 0.63 mg/dl Est Creatinine Clear Calc Drug Dose 160.2 ml/min Estimated GFR () 127.7 Estimated GFR (Non- 110.2 BUN/Creatinine Ratio 15.2 Random Glucose 84 mg/dl Calcium Level 8.6 mg/dl Phosphorus Level 3.5 mg/dl Magnesium Level 1.7 mg/dl Total Bilirubin 0.9 mg/dl Direct Bilirubin 0.3 mg/dl Aspartate Amino Transf (AST/SGOT) 124 U/L Alanine Aminotransferase (ALT/SGPT) 148 U/L Alkaline Phosphatase 119 U/L Total Protein 7.4 gm/dl Albumin 3.6 gm/dl Globulin 3.8 gm/dl Albumin/Globulin Ratio 0.9
--- NOTE | 2017-12-22 18:22 | Progress Note ---
Internal Med Progress Note Date of Service: Dec 22, 2017. Provider Documentation: SUBJECTIVE: Patient sitting on chair, one-to-one sitter present Confused, not aware that he is in hospital Taking off surveillance system monitor tremor noted in outstretched hands Patient had episodes of severe agitation, combative last night required multiple doses of Ativan, increased dose of phenobarbital OBJECTIVE: Vital Signs-as noted below Exam: Physical exam: General very disheveled, flushed face, intoxicated, HEENT: Sclera nonicteric PERRLA/EOMI Neck: Supple, no JVD no carotid bruit no thyromegaly, trachea midline Lungs: Clear to auscultate no wheeze or rales Heart: Regular, tachycardic, no lower extremity edema, no carotid bruit, no JVD Extremity: Large bruise on the left flank area-age indeterminant, nonblanching, no overlying skin lesion, multiple red rash/spots in finger webspace hands arms and shoulders-concern possible scabies infection Multiple bruits on both lower extremity-patient reports of multiple falls Neuro: Awake, confused, not aware of surroundings taking of surveillance system monitor constantly, trying to take IV site out, bilateral hand sleeves placed to protect IV site Lab data as noted below. ASSESSMENT & PLAN: ALCOHOL INTOXICATION/POLYSUBSTANCE ABUSE Ongoing agitation, delirium for withdrawal History of chronic alcohol intoxication/abuse Multiple admissions/ER visits in the past with similar symptom Presents with intoxicated status blood alcohol level more than 380; with positive marijuana Critical care consulted, appreciate input Per senior manufacturing technician As patient continues to have agitation, behavioral symptoms Phenobarbital dose increased to 130 mg IV every 4 hours scheduled Librium discontinued Started on clonidine 0.2 mg twice daily Valium 10 mg IV as needed for agitation/anxiety compliance monitor discontinued as patient is constantly taking monitor off and getting agitated as nurse placing the monitor compliance monitor discontinued Monitor hemodynamics closely in medical floor Is high risk for severe withdrawal symptom/seizure CONFUSION/DELIRIUM/METABOLIC ENCEPHALOPATHY DUE TO ALCOHOL INTOXICATION / POSSIBLE WERNICKE'S ENCEPHALOPATHY Due to alcohol abuse/intoxication CT head without contrast shows no evidence of acute CVA Ordered for thiamine and folate SEIZURE LIKE ACTIVITY VS ALCOHOL WITHDRAWAL SEIZURE Patient reports of seizure Did not have any witnessed seizure episode Very hard to confirm a true seizure episode, as patient was not able to give any good history Has been on Keppra-questionable medication compliance Continued with Keppra 1000 mg twice daily Ordered for seizure precaution Neuro evaluation requested-appreciate input Recommend to continue with Keppra Patient's lot of the neurological symptoms possibly secondary to alcohol abuse intoxication HYPONATREMIA CHRONIC Appreciate nephrology evaluation Due to alcohol abuse Ordered for IV fluids normal saline as per the patient appear to be dehydrated Slow collection HYPOKALEMIA ordered for oral potassium tablet Repeat PRP TRANSAMINITIS AST greater than ALT With elevated alkaline phosphatase Due to alcoholic liver disease/hepatitis Right upper quadrant ultrasound Shows hepatic steatosis No evidence of gallbladder disease GI evaluation appreciated CT abdomen pelvis: Shows severely steatotic liver, no splenomegaly HISTORY OF PAF/A. FIB Continue with diltiazem Not a candidate for chronic anticoagulation secondary to alcohol intoxication/ abuse/high fall risk EKG shows prolonged QTC 480 trazodone on hold/avoid medication that can cause worsening of QT prolongation (e.g Zofran/quinolones) Monitoring telemetry SIGNIFICANT THROMBOCYTOPENIA Platelet count 28->20->31 secondary to alcoholic abuse Avoid all antiplatelet/anticoagulation No indication for platelet transfusion until platelet count drops below 10 or any evidence of active bleeding Follow CBC daily peripheral blood smear 1. NORMOCHROMIC/NORMOCYTIC RED BLOOD CELLS, UNREMARKABLE LEUKOCYTES, AND MARKEDLY DECREASED NUMBERS OF PLATELETS ARE SEEN. 2. PLATELET CLUMPING IS NOT PRESENT. 3. BLASTS AND SCHISTOCYTES ARE NOT SEEN. 4. THE CLINICAL HISTORY OF ALCOHOL USE IS NOTED. Strict fall precaution Ordered for bed alarm, chair alarm High bleeding risk due to fall secondary to severe thrombocytopenia FALL/AMBULATORY DYSFUNCTION Multiple bruise on extremities, secondary to fall Possible secondary to alcohol intoxication PT OT evaluation Fall precaution ITCHING SKIN RASH /CONCERN FOR POSSIBLE SCABIES : contact isolation topical solution CODE STATUS: Full code DVT prophylaxis: SCD and teds No pharmacological anticoagulation secondary to thrombocytopenia DISPOSITION: To be determined Patient will benefit from alcohol rehab Refused rehab in past Social service consulted for discharge planning PT OT evaluation requested Vital Signs: Date Time Temp Pulse Resp B/P (MAP) Pulse Ox O2 Delivery O2 Flow Rate FiO2 12/22/17 18:04 36.4 85 20 100/66 (77) 99 Room Air 12/22/17 17:53 36.5 77 20 123/82 (96) 98 Room Air 12/22/17 17:47 36.5 90 18 99 12/22/17 16:00 99 Room Air 12/22/17 12:59 90 18 111/77 (88) 99 Room Air 12/22/17 08:00 Room Air 12/22/17 07:01 36.5 91 18 114/82 (93) 97 Room Air 12/22/17 03:07 36.4 71 18 120/79 (93) 98 Room Air 12/21/17 22:57 36.1 77 18 139/97 (111) 95 Room Air 12/21/17 21:40 36.2 102 18 123/90 (101) 100 Room Air 12/21/17 20:00 Room Air Lab Results: Results Past 24 Hours Test 12/22/17 05:35 Range/Units White Blood Count 2.86 4.8-10.8 K/uL Red Blood Count 4.00 4.7-6.1 M/uL Hemoglobin 13.4 14.0-18.0 g/dL Hematocrit 37.1 42-52 % Mean Corpuscular Volume 92.8 80-100 fL Mean Corpuscular Hemoglobin 33.5 25-34 pg Mean Corpuscular Hemoglobin Concent 36.1 32-36 g/dl RDW Standard Deviation 39.4 36.4-46.3 fL RDW Coefficient of Variation 11.7 11.5-14.5 % Platelet Count 45 130-400 K/uL Mean Platelet Volume 10.5 7.4-10.4 fL Sodium Level 137 136-145 mmol/L Potassium Level 3.1 3.5-5.1 mmol/L Chloride Level 104 98-107 mmol/L Carbon Dioxide Level 25 21-32 mmol/L Anion Gap 8.0 3-11 mmol/L Blood Urea Nitrogen 10 7-18 mg/dl Creatinine 0.63 0.60-1.40 mg/dl Est Creatinine Clear Calc Drug Dose 160.2 ml/min Estimated GFR () 127.7 Estimated GFR (Non- 110.2 BUN/Creatinine Ratio 15.2 10-20 Random Glucose 84 70-99 mg/dl Calcium Level 8.6 8.5-10.1 mg/dl Phosphorus Level 3.5 2.5-4.9 mg/dl Magnesium Level 1.7 1.8-2.4 mg/dl Total Bilirubin 0.9 0.2-1 mg/dl Direct Bilirubin 0.3 0-0.2 mg/dl Aspartate Amino Transf (AST/SGOT) 124 15-37 U/L Alanine Aminotransferase (ALT/SGPT) 148 12-78 U/L Alkaline Phosphatase 119 45-117 U/L Total Protein 7.4 6.4-8.2 gm/dl Albumin 3.6 3.4-5.0 gm/dl Globulin 3.8 2.5-4.0 gm/dl Albumin/Globulin Ratio 0.9 0.9-2
[2017-12-22] MEDS: CLONIDINE HCL 0.1 MG TAB PO SCH (21:50)
[2017-12-23] MEDS ORDERED: GABAPENTIN 600MG Q24H DOSE PO SCH
[2017-12-23 00:05] VITALS: O2SAT 99
[2017-12-23] MEDS: PHENOBARBITAL SOD IV SCH ×5 (01:42→18:14)
[2017-12-23 06:50] LABS: HEMATOCRIT 36.6 % (42-52); HEMOGLOBIN 12.5 g/dL (14.0-18.0); MEAN CELL VOLUME 93.6 fL (80-100); MEAN CORPUSCULAR HGB CONC 34.2 g/dl (32-36); MEAN PLATELET VOLUME 10.6 fL (7.4-10.4); PLATELET COUNT 68 K/uL (130-400); RED CELL DISTRIBUTION WIDTH SD 40.7 fL (36.4-46.3); WHITE BLOOD COUNT 2.91 K/uL (4.8-10.8)
[2017-12-23 08:27] VITALS: BP 96/66; PULSE 89; TEMP 36.3; O2SAT 100
[2017-12-23] MEDS: DILTIAZEM HCL 120 MG CAPCR PO SCH (09:26)
[2017-12-23 09:27] VITALS: BP 138/82; PULSE 89
[2017-12-23] MEDS: LEVETIRACETAM 500 MG TAB PO SCH ×2 (09:27→20:33)
[2017-12-23 09:28] LABS: CALCIUM 8.7 mg/dl (8.5-10.1); CREATININE 0.73 mg/dl (0.60-1.40)
[2017-12-23] MEDS: OLANZAPINE 10 MG TAB PO SCH ×2 (09:28→20:33)
[2017-12-23] MEDS: CLONIDINE HCL 0.1 MG TAB PO SCH ×2 (09:28→20:33)
[2017-12-23] MEDS: POTASSIUM CHLORIDE 20 MEQ TABCR PO SCH (09:28)
--- NOTE | 2017-12-23 13:52 | Psychiatric Consultation ---
Psychiatric Consultation Date of Service: Dec 23, 2017. ' psych consult was cancelled by primary attending
--- NOTE | 2017-12-23 14:46 | Critical Care Progress Note ---
Critical Care Progress Note Date of Service Dec 23, 2017. Attending Dr. Wu Subjective More somnolent today than yesterday, although overnight noted that the patient had occasions with confusion and agitation. Over the past 24 hours, the patient did not receive any additional doses of phenobarbital. Review of system was not obtainable at this time due to somnolence. Objective Physical exam on 12/21/2017 revealed middle-age gentleman, does not appear to be in any distress, somewhat confused but he is answering questions and following commands, no chest pain reported, vital signs are stable, S1-S2 regular rate and rhythm, lungs are clear, no tremor to my exam. He is sitting in a chair comfortably. His labs also were reviewed which showed platelets improved to 31, 000 and he continued to have leukopenia. Physical exam on 12/22/2017 showed middle-aged gentleman, currently he is more somnolent as he just received phenobarbital dose. Not in distress. S1-S2, lungs with distant breath sounds, abdomen is benign, no tremor to my exam. Labs are consistent with leukopenia and thrombocytopenia. Physical exam on 12/23/2017 showed middle-aged gentleman, controlling his airways , 100% on room air, difficult to arouse but able to open his eyes, S1-S2 regular rate and rhythm, distant breath sounds bilaterally, abdomen is benign, no edema. Neurologically difficult to assess. No change in labs except for mild improvement in thrombocytopenia. No new imaging. Assessment & Plan 1. Alcoholism with alcohol withdrawal. 2. He is not showing any signs of catecholamine surge to support the diagnosis of delirium tremens at this point. His baseline with confusion and altered sensorium. 3. Alcohol hallucination. Not progressed today. 4. Thrombocytopenia and leukopenia related to bone marrow suppression secondary to alcohol use. Plan: 1. The patient did not require any additional doses of Valium. 2. Due to somnolence I will change phenobarbital 230 mg IV every 6 hours. 3. Continue with clonidine. 4. I will taper phenobarbital either by dose or by frequency every 2 days. Expect prolonged weaning in this patient. 5. The patient is tolerating Zyprexa twice daily. 6. Continue with one-to-one. 7. Continue high-dose thiamine. 8. Oral intake. 9. The patient is incompetent to make a decision and he cannot sign out himself AMA. 10. To mention, Precedex is not adequate treatment for alcohol withdrawal as it does not have the OSITO receptor agonist. 11. Discussed with the nursing staff. Thank you. Will follow . CCT 35 minutes. Data Medications: Current Inpatient Medications Medications (Trade) Dose Ordered Sig/Rica Route Start Time Stop Time Status Last Admin Dose Admin Diltiazem HCl (Cardizem Cd Cap) 120 mg QAM PO 12/20/17 09:00 01/19/18 08:59 12/23/17 09:26 120 MG Folic Acid (Folvite Tab) 1 mg QAM PO 12/20/17 09:00 01/19/18 08:59 12/23/17 09:25 1 MG Levetiracetam (Keppra Tab) 1,000 mg Q12 PO 12/19/17 21:00 01/18/18 20:59 12/23/17 09:27 1,000 MG Ioversol (Optiray 320) 125 ml UD PRN IV 12/19/17 20:15 12/23/17 20:14 Miscellaneous (Remove Nicoderm Patch) 1 ea HS N/A 12/21/17 21:00 01/20/18 20:59 12/22/17 21:49 1 EA Olanzapine (Zyprexa Tab) 10 mg BID PO 12/21/17 11:00 01/20/18 10:59 12/23/17 09:28 10 MG Potassium Chloride (Klor-Con Tab) 20 meq QAM PO 12/23/17 09:00 01/22/18 08:59 12/23/17 09:28 20 MEQ Phenobarbital Sodium 130 mg/ Syringe 1 ml @ 0.45 mls/ min Q4H IV 12/22/17 13:00 01/20/18 20:59 12/23/17 12:55 0.45 MLS/MIN Diazepam (Valium Inj) 10 mg Q4 PRN IV 12/22/17 09:45 01/21/18 09:44 Clonidine HCl (Catapres Tab) 0.2 mg BID PO 12/22/17 21:00 01/21/18 20:59 12/23/17 09:28 0.2 MG Vital Signs: Date Time Temp Pulse Resp B/P (MAP) Pulse Ox O2 Delivery O2 Flow Rate FiO2 12/23/17 09:27 89 138/82 (100) 12/23/17 08:27 36.3 89 20 96/66 (76) 100 12/23/17 08:00 Room Air 12/23/17 00:05 99 Room Air 12/22/17 23:32 36.3 100 18 106/75 (85) 99 Room Air 12/22/17 18:04 36.4 85 20 100/66 (77) 99 Room Air 12/22/17 17:53 36.5 77 20 123/82 (96) 98 Room Air 12/22/17 17:47 36.5 90 18 99 12/22/17 16:00 99 Room Air Laboratory Results: Last 24 Hours Test 12/23/17 05:46 12/23/17 08:33 12/23/17 09:51 White Blood Count 2.91 K/uL Red Blood Count 3.91 M/uL Hemoglobin 12.5 g/dL Hematocrit 36.6 % Mean Corpuscular Volume 93.6 fL Mean Corpuscular Hemoglobin 32.0 pg Mean Corpuscular Hemoglobin Concent 34.2 g/dl RDW Standard Deviation 40.7 fL RDW Coefficient of Variation 12.0 % Platelet Count 68 K/uL Mean Platelet Volume 10.6 fL Magnesium Level 2.1 mg/dl Sodium Level 140 mmol/L Potassium Level mmol/L 3.2 mmol/L Chloride Level 105 mmol/L Carbon Dioxide Level 27 mmol/L Anion Gap 8.0 mmol/L Blood Urea Nitrogen 10 mg/dl Creatinine 0.73 mg/dl Est Creatinine Clear Calc Drug Dose 138.2 ml/min Estimated GFR () 120.2 Estimated GFR (Non- 103.7 BUN/Creatinine Ratio 13.2 Random Glucose 154 mg/dl Calcium Level 8.7 mg/dl
[2017-12-23 15:19] VITALS: BP 113/74; PULSE 87; TEMP 36.3; O2SAT 97
--- NOTE | 2017-12-23 19:23 | Progress Note ---
Internal Med Progress Note Date of Service: Dec 23, 2017. Provider Documentation: SUBJECTIVE: Patient appears to be responding well to increased dose of scheduled for phenobarbital No agitation or behavioral issues noted Will discuss with field consultant to possible taper dose of phenobarbital starting from tomorrow As patient is already 72 hours beyond alcohol withdrawal phase OBJECTIVE: Vital Signs-as noted below Exam: Physical exam: General very disheveled, flushed face, intoxicated, HEENT: Sclera nonicteric PERRLA/EOMI Neck: Supple, no JVD no carotid bruit no thyromegaly, trachea midline Lungs: Clear to auscultate no wheeze or rales Heart: Regular, tachycardic, no lower extremity edema, no carotid bruit, no JVD Extremity: Large bruise on the left flank area-age indeterminant, nonblanching, no overlying skin lesion, multiple red rash/spots in finger webspace hands arms and shoulders-concern possible scabies infection Multiple bruits on both lower extremity-patient reports of multiple falls Neuro: Awake, confused, not aware of surroundings taking of surveillance system monitor constantly, trying to take IV site out, bilateral hand sleeves placed to protect IV site Lab data as noted below. ASSESSMENT & PLAN: ALCOHOL INTOXICATION/POLYSUBSTANCE ABUSE Symptoms improved after initiation of high-dose phenobarbital treatment Presented with acute agitation and combativeness secondary to alcohol withdrawal History of chronic alcohol intoxication/abuse Multiple admissions/ER visits in the past with similar symptom Presents with intoxicated status blood alcohol level more than 380; with positive marijuana Critical care consulted, appreciate input Per field consultant As patient continues to have agitation, behavioral symptoms Phenobarbital dose increased to 130 mg IV every 4 hours scheduled Librium discontinued Started on clonidine 0.2 mg twice daily Valium 10 mg IV as needed for agitation/anxiety CONFUSION/DELIRIUM/METABOLIC ENCEPHALOPATHY DUE TO ALCOHOL INTOXICATION / POSSIBLE WERNICKE'S ENCEPHALOPATHY Due to alcohol abuse/intoxication CT head without contrast shows no evidence of acute CVA Continue for thiamine and folate SEIZURE LIKE ACTIVITY VS ALCOHOL WITHDRAWAL SEIZURE Patient reports of seizure Did not have any witnessed seizure episode Very hard to confirm a true seizure episode, as patient was not able to give any good history Has been on Keppra-questionable medication compliance Continued with Keppra 1000 mg twice daily Ordered for seizure precaution Neuro evaluation requested-appreciate input Recommend to continue with Keppra Patient's lot of the neurological symptoms possibly secondary to alcohol abuse intoxication HYPONATREMIA CHRONIC Appreciate nephrology evaluation Due to alcohol abuse Sodium level normalized IV fluids discontinued Follow PRP HYPOKALEMIA ordered for oral potassium tablet Repeat PRP TRANSAMINITIS AST greater than ALT With elevated alkaline phosphatase Due to alcoholic liver disease/hepatitis Right upper quadrant ultrasound Shows hepatic steatosis No evidence of gallbladder disease GI evaluation appreciated CT abdomen pelvis: Shows severely steatotic liver, no splenomegaly HISTORY OF PAF/A. FIB Continue with diltiazem Not a candidate for chronic anticoagulation secondary to alcohol intoxication/ abuse/high fall risk SIGNIFICANT THROMBOCYTOPENIA Platelet count 28->20->31 secondary to alcoholic abuse Avoid all antiplatelet/anticoagulation No indication for platelet transfusion until platelet count drops below 10 or any evidence of active bleeding Follow CBC daily peripheral blood smear 1. NORMOCHROMIC/NORMOCYTIC RED BLOOD CELLS, UNREMARKABLE LEUKOCYTES, AND MARKEDLY DECREASED NUMBERS OF PLATELETS ARE SEEN. 2. PLATELET CLUMPING IS NOT PRESENT. 3. BLASTS AND SCHISTOCYTES ARE NOT SEEN. 4. THE CLINICAL HISTORY OF ALCOHOL USE IS NOTED. Strict fall precaution Ordered for bed alarm, chair alarm High bleeding risk due to fall secondary to severe thrombocytopenia FALL/AMBULATORY DYSFUNCTION Multiple bruise on extremities, secondary to fall Possible secondary to alcohol intoxication PT OT evaluation Fall precaution ITCHING SKIN RASH /CONCERN FOR POSSIBLE SCABIES : contact isolation topical solution CODE STATUS: Full code DVT prophylaxis: SCD and teds No pharmacological anticoagulation secondary to thrombocytopenia DISPOSITION: To be determined Patient will benefit from alcohol rehab Refused rehab in past Social service consulted for discharge planning PT OT evaluation requested Vital Signs: Date Time Temp Pulse Resp B/P (MAP) Pulse Ox O2 Delivery O2 Flow Rate FiO2 12/23/17 16:00 Room Air 12/23/17 15:19 36.3 87 20 113/74 (87) 97 Room Air 12/23/17 09:27 89 138/82 (100) 12/23/17 08:27 36.3 89 20 96/66 (76) 100 12/23/17 08:00 Room Air 12/23/17 00:05 99 Room Air 12/22/17 23:32 36.3 100 18 106/75 (85) 99 Room Air Lab Results: Results Past 24 Hours Test 12/23/17 05:46 12/23/17 08:33 12/23/17 09:51 Range/Units White Blood Count 2.91 4.8-10.8 K/uL Red Blood Count 3.91 4.7-6.1 M/uL Hemoglobin 12.5 14.0-18.0 g/dL Hematocrit 36.6 42-52 % Mean Corpuscular Volume 93.6 80-100 fL Mean Corpuscular Hemoglobin 32.0 25-34 pg Mean Corpuscular Hemoglobin Concent 34.2 32-36 g/dl RDW Standard Deviation 40.7 36.4-46.3 fL RDW Coefficient of Variation 12.0 11.5-14.5 % Platelet Count 68 130-400 K/uL Mean Platelet Volume 10.6 7.4-10.4 fL Magnesium Level 2.1 1.8-2.4 mg/dl Sodium Level 140 136-145 mmol/L Potassium Level 3.2 3.5-5.1 mmol/L Chloride Level 105 98-107 mmol/L Carbon Dioxide Level 27 21-32 mmol/L Anion Gap 8.0 3-11 mmol/L Blood Urea Nitrogen 10 7-18 mg/dl Creatinine 0.73 0.60-1.40 mg/dl Est Creatinine Clear Calc Drug Dose 138.2 ml/min Estimated GFR () 120.2 Estimated GFR (Non- 103.7 BUN/Creatinine Ratio 13.2 10-20 Random Glucose 154 70-99 mg/dl Calcium Level 8.7 8.5-10.1 mg/dl
[2017-12-24] MEDS: PHENOBARBITAL SOD IV SCH ×2 (00:02→05:35)
[2017-12-24 00:03] VITALS: BP 98/63; PULSE 71; TEMP 36.3; O2SAT 97
[2017-12-24 02:18] VITALS: BP 136/90; PULSE 68; O2SAT 97
[2017-12-24 07:06] LABS: ALBUMIN 3.4 gm/dl (3.4-5.0); CREATININE 0.54 mg/dl (0.60-1.40); POTASSIUM 3.7 mmol/L (3.5-5.1); TOTAL PROTEIN 6.9 gm/dl (6.4-8.2)
[2017-12-24] MEDS: LEVETIRACETAM 500 MG TAB PO SCH ×2 (07:34→19:58)
[2017-12-24] MEDS: POTASSIUM CHLORIDE 20 MEQ TABCR PO SCH (07:34)
[2017-12-24] MEDS: OLANZAPINE 10 MG TAB PO SCH (07:34)
[2017-12-24] MEDS: DILTIAZEM HCL 120 MG CAPCR PO SCH (07:34)
[2017-12-24] MEDS: CLONIDINE HCL 0.1 MG TAB PO SCH ×2 (07:35→19:55)
[2017-12-24 07:49] VITALS: BP 130/97; PULSE 81; TEMP 36.5; O2SAT 95
[2017-12-24] MEDS ORDERED: DIAZEPAM INJ 5 MG/ML 2 ML CARP IV PRN (09:30)
[2017-12-24] MEDS: THIAMINE HCL 100 MG TAB PO SCH (10:00)
--- NOTE | 2017-12-24 10:09 | Critical Care Progress Note ---
Critical Care Progress Note Date of Service Dec 24, 2017. Attending Dr. Wu Subjective Remains confused, paranoid, having behavioral issues as well. His issues mainly at night. He did not have any requirement for additional doses of Valium or phenobarbital during the day. And for the past 24 hours. Review of system is not obtainable from this patient due to delirium. Labs were reviewed as well. Phenobarbital level is pending and orders. Objective Physical exam on 12/21/2017 revealed middle-age gentleman, does not appear to be in any distress, somewhat confused but he is answering questions and following commands, no chest pain reported, vital signs are stable, S1-S2 regular rate and rhythm, lungs are clear, no tremor to my exam. He is sitting in a chair comfortably. His labs also were reviewed which showed platelets improved to 31, 000 and he continued to have leukopenia. Physical exam on 12/22/2017 showed middle-aged gentleman, currently he is more somnolent as he just received phenobarbital dose. Not in distress. S1-S2, lungs with distant breath sounds, abdomen is benign, no tremor to my exam. Labs are consistent with leukopenia and thrombocytopenia. Physical exam on 12/23/2017 showed middle-aged gentleman, controlling his airways , 100% on room air, difficult to arouse but able to open his eyes, S1-S2 regular rate and rhythm, distant breath sounds bilaterally, abdomen is benign, no edema. Neurologically difficult to assess. No change in labs except for mild improvement in thrombocytopenia. No new imaging. Physical exam on 12/24/2017 showed stable vital signs on room air, 98%, S1-S2 regular rate and rhythm, no tachycardia or hypotension, no diaphoresis, lungs are clear, S1-S2 regular rate and rhythm, no edema. Labs were reviewed as well with thrombocytopenia. Assessment & Plan 1. Delirium tremens 2. Possible superimposed behavioral disorder. Mood disorder, also cannot be totally excluded. 3. Alcohol related hallucination. 4. Thrombocytopenia and leukopenia related to bone marrow suppression secondary to alcohol use. Plan: 1. The patient did not require any additional doses of Valium. We will discontinue it as the patient is on regular floor and the Valium policy in our institution required monitoring. 2. Continue with phenobarbital 130 mg and change it to p.o. every 6 hours. 3. Continue with clonidine 0.2 mg p.o. twice a day.. 4. I will taper phenobarbital either by dose or by frequency every 2 days. Expect prolonged weaning in this patient. 5. Change Zyprexa to 20 mg at bedtime instead. 6. Continue with one-to-one. 7. Continue thiamine high-dose p.o. daily. 8. Oral intake. 9. The patient is incompetent to make a decision and he cannot sign out himself AMA. 10. Discontinue Valium. 11. Continue with as needed phenobarbital 65 mg IV every 4 hours if needed. 12. Discussed with the staff and with pharmacy. Appreciate input. Thank you. Will follow . CCT 35 minutes. Data Medications: Current Inpatient Medications Medications (Trade) Dose Ordered Sig/Rica Route Start Time Stop Time Status Last Admin Dose Admin Diltiazem HCl (Cardizem Cd Cap) 120 mg QAM PO 12/20/17 09:00 01/19/18 08:59 12/24/17 07:34 120 MG Folic Acid (Folvite Tab) 1 mg QAM PO 12/20/17 09:00 01/19/18 08:59 12/24/17 07:34 1 MG Levetiracetam (Keppra Tab) 1,000 mg Q12 PO 12/19/17 21:00 01/18/18 20:59 12/24/17 07:34 1,000 MG Potassium Chloride (Klor-Con Tab) 20 meq QAM PO 12/23/17 09:00 01/22/18 08:59 12/24/17 07:34 20 MEQ Clonidine HCl (Catapres Tab) 0.2 mg BID PO 12/22/17 21:00 01/21/18 20:59 12/24/17 07:35 0.2 MG Thiamine HCl (Vitamin B-1 Tab) 300 mg QAM PO 12/24/17 10:00 01/23/18 09:59 Phenobarbital (Phenobarbital Tab) 64.8 mg Q6 PO 12/24/17 12:00 01/23/18 11:59 Phenobarbital Sodium 130 mg/ Syringe 2 ml @ 1 mls/min Q6 PRN IV 12/24/17 09:15 01/23/18 09:14 Olanzapine (Zyprexa Tab) 20 mg HS PO 12/24/17 21:00 01/20/18 10:59 Vital Signs: Date Time Temp Pulse Resp B/P (MAP) Pulse Ox O2 Delivery O2 Flow Rate FiO2 12/24/17 08:00 Room Air 12/24/17 07:49 36.5 81 18 130/97 (108) 95 Room Air 12/24/17 02:18 68 136/90 (105) 97 Room Air 12/24/17 00:03 36.3 71 18 98/63 (75) 97 Room Air 12/24/17 00:01 Room Air 12/23/17 16:00 Room Air 12/23/17 15:19 36.3 87 20 113/74 (87) 97 Room Air Laboratory Results: Last 24 Hours Test 12/24/17 06:17 12/24/17 09:53 Sodium Level 141 mmol/L Potassium Level 3.7 mmol/L Chloride Level 109 mmol/L Carbon Dioxide Level 26 mmol/L Anion Gap 7.0 mmol/L Blood Urea Nitrogen 6 mg/dl Creatinine 0.54 mg/dl Est Creatinine Clear Calc Drug Dose 186.9 ml/min Estimated GFR () 136.0 Estimated GFR (Non- 117.4 BUN/Creatinine Ratio 11.2 Random Glucose 80 mg/dl Calcium Level 9.0 mg/dl Magnesium Level 2.2 mg/dl Total Bilirubin 0.4 mg/dl Direct Bilirubin 0.2 mg/dl Aspartate Amino Transf (AST/SGOT) 153 U/L Alanine Aminotransferase (ALT/SGPT) 218 U/L Alkaline Phosphatase 96 U/L Total Protein 6.9 gm/dl Albumin 3.4 gm/dl Globulin 3.5 gm/dl Albumin/Globulin Ratio 1.0
[2017-12-24] MEDS ORDERED: PHENOBARBITAL 32.4 MG TAB PO SCH (12:00)
[2017-12-24] MEDS ORDERED: LORAZEPAM INJ 1 MG in SYRINGE 0.5 ML IV STA (12:12)
[2017-12-24] MEDS ORDERED: LORAZEPAM INJ 1 MG in SYRINGE 0.5 ML IV PRN (12:15)
[2017-12-24 15:03] VITALS: BP 135/89; PULSE 71; TEMP 36.3; O2SAT 96
--- NOTE | 2017-12-24 18:50 | Progress Note ---
Internal Med Progress Note Date of Service: Dec 24, 2017. Provider Documentation: SUBJECTIVE: became very combative /belligerent security was called cont phenobarbital changed to prn cont 1;1 for safety OBJECTIVE: Vital Signs-as noted below Exam: Physical exam: General very disheveled, flushed face, intoxicated, HEENT: Sclera nonicteric PERRLA/EOMI Neck: Supple, no JVD no carotid bruit no thyromegaly, trachea midline Lungs: Clear to auscultate no wheeze or rales Heart: Regular, tachycardic, no lower extremity edema, no carotid bruit, no JVD Extremity: Large bruise on the left flank area-age indeterminant, nonblanching, no overlying skin lesion, multiple red rash/spots in finger webspace hands arms and shoulders-concern possible scabies infection Multiple bruits on both lower extremity-patient reports of multiple falls Neuro: Awake, confused, not aware of surroundings taking of case monitor constantly, trying to take IV site out, bilateral hand sleeves placed to protect IV site Lab data as noted below. ASSESSMENT & PLAN: ALCOHOL INTOXICATION/POLYSUBSTANCE ABUSE requiring high-dose phenobarbital treatment episodes of outburst with agitation , profanity and combativeness dose changed to PRN Presented with acute agitation and combativeness secondary to alcohol withdrawal History of chronic alcohol intoxication/abuse Multiple admissions/ER visits in the past with similar symptom Presents with intoxicated status blood alcohol level more than 380; with positive marijuana Critical care consulted, appreciate input CONFUSION/DELIRIUM/METABOLIC ENCEPHALOPATHY DUE TO ALCOHOL INTOXICATION / POSSIBLE WERNICKE'S ENCEPHALOPATHY Due to alcohol abuse/intoxication CT head without contrast shows no evidence of acute CVA Continue for thiamine and folate SEIZURE LIKE ACTIVITY VS ALCOHOL WITHDRAWAL SEIZURE Patient reports of seizure Did not have any witnessed seizure episode Very hard to confirm a true seizure episode, as patient was not able to give any good history Has been on Keppra-questionable medication compliance Continued with Keppra 1000 mg twice daily Ordered for seizure precaution Neuro evaluation requested-appreciate input Recommend to continue with Keppra Patient's lot of the neurological symptoms possibly secondary to alcohol abuse intoxication HYPONATREMIA CHRONIC Appreciate nephrology evaluation Due to alcohol abuse Sodium level normalized IV fluids discontinued Follow PRP HYPOKALEMIA ordered for oral potassium tablet Repeat PRP TRANSAMINITIS AST greater than ALT With elevated alkaline phosphatase Due to alcoholic liver disease/hepatitis Right upper quadrant ultrasound Shows hepatic steatosis No evidence of gallbladder disease GI evaluation appreciated CT abdomen pelvis: Shows severely steatotic liver, no splenomegaly HISTORY OF PAF/A. FIB Continue with diltiazem Not a candidate for chronic anticoagulation secondary to alcohol intoxication/ abuse/high fall risk SIGNIFICANT THROMBOCYTOPENIA Platelet count 28->20->31 secondary to alcoholic abuse Avoid all antiplatelet/anticoagulation No indication for platelet transfusion until platelet count drops below 10 or any evidence of active bleeding Follow CBC daily peripheral blood smear 1. NORMOCHROMIC/NORMOCYTIC RED BLOOD CELLS, UNREMARKABLE LEUKOCYTES, AND MARKEDLY DECREASED NUMBERS OF PLATELETS ARE SEEN. 2. PLATELET CLUMPING IS NOT PRESENT. 3. BLASTS AND SCHISTOCYTES ARE NOT SEEN. 4. THE CLINICAL HISTORY OF ALCOHOL USE IS NOTED. Strict fall precaution Ordered for bed alarm, chair alarm High bleeding risk due to fall secondary to severe thrombocytopenia FALL/AMBULATORY DYSFUNCTION Multiple bruise on extremities, secondary to fall Possible secondary to alcohol intoxication PT OT evaluation Fall precaution ITCHING SKIN RASH /CONCERN FOR POSSIBLE SCABIES : contact isolation topical solution CODE STATUS: Full code DVT prophylaxis: SCD and teds No pharmacological anticoagulation secondary to thrombocytopenia DISPOSITION: To be determined Patient will benefit from alcohol rehab Refused rehab in past Social service consulted for discharge planning PT OT evaluation requested Vital Signs: Date Time Temp Pulse Resp B/P (MAP) Pulse Ox O2 Delivery O2 Flow Rate FiO2 12/25/17 08:00 Room Air 12/25/17 05:28 36.5 84 18 144/97 (113) 98 Room Air 12/25/17 00:56 Room Air 12/24/17 19:54 86 95/64 (74) 12/24/17 16:00 Room Air 12/24/17 15:03 36.3 71 18 135/89 (104) 96 Room Air Lab Results:
[2017-12-24] MEDS ORDERED: PHENOBARBITAL 32.4 MG TAB PO PRN (19:00)
[2017-12-24 19:54] VITALS: BP 95/64; PULSE 86
[2017-12-24] MEDS: ZYPREXA 20 MG PO SCH (19:58)
[2017-12-24 23:31] LABS: ANA SCREEN TC 249X POSITIVE (NEGATIVE); HEPATITIS A IGM TC 51813E NON-REACTIVE (NON-REACTIVE); HEPATITIS B CORE IGM TC51854R NON-REACTIVE (NON-REACTIVE); HEPATITIS BE ANTIBODY TC 556 Nonreactive; HEPATITIS BE ANTIGEN TC 555 Nonreactive
[2017-12-25 05:28] VITALS: BP 144/97; PULSE 84; TEMP 36.5; O2SAT 98
[2017-12-25] MEDS: CLONIDINE HCL 0.1 MG TAB PO SCH ×2 (07:46→20:59)
[2017-12-25] MEDS: LEVETIRACETAM 500 MG TAB PO SCH ×2 (07:46→21:00)
[2017-12-25] MEDS: POTASSIUM CHLORIDE 20 MEQ TABCR PO SCH (07:47)
[2017-12-25] MEDS: THIAMINE HCL 100 MG TAB PO SCH (07:47)
[2017-12-25] MEDS: DILTIAZEM HCL 120 MG CAPCR PO SCH (07:48)
[2017-12-25] MEDS: PHENOBARBITAL SOD IV PRN ×2 (10:47→20:58)
[2017-12-25] MEDS: PHENOBARBITAL 32.4 MG TAB PO SCH ×2 (13:18→18:18)
--- NOTE | 2017-12-25 15:44 | Critical Care Progress Note ---
Critical Care Progress Note Date of Service Dec 25, 2017. Attending Dr. Jazmin Singer The patient remains confused, agitated occasionally, however no events occurred overnight, he did not require any additional doses of IV sedatives. He is taking his pills. He wants to go home and not realizing that his hospitalization would be prolonged, I attempted to redirect him but he is not in the state of mind to make a decision. Objective Physical exam on 12/21/2017 revealed middle-age gentleman, does not appear to be in any distress, somewhat confused but he is answering questions and following commands, no chest pain reported, vital signs are stable, S1-S2 regular rate and rhythm, lungs are clear, no tremor to my exam. He is sitting in a chair comfortably. His labs also were reviewed which showed platelets improved to 31, 000 and he continued to have leukopenia. Physical exam on 12/22/2017 showed middle-aged gentleman, currently he is more somnolent as he just received phenobarbital dose. Not in distress. S1-S2, lungs with distant breath sounds, abdomen is benign, no tremor to my exam. Labs are consistent with leukopenia and thrombocytopenia. Physical exam on 12/23/2017 showed middle-aged gentleman, controlling his airways , 100% on room air, difficult to arouse but able to open his eyes, S1-S2 regular rate and rhythm, distant breath sounds bilaterally, abdomen is benign, no edema. Neurologically difficult to assess. No change in labs except for mild improvement in thrombocytopenia. No new imaging. Physical exam on 12/24/2017 showed stable vital signs on room air, 98%, S1-S2 regular rate and rhythm, no tachycardia or hypotension, no diaphoresis, lungs are clear, S1-S2 regular rate and rhythm, no edema. Labs were reviewed as well with thrombocytopenia. Physical exam on 12/25/2017 showed vital signs are stable, 98% on room air, S1- S2 regular rate and rhythm, distant breath sounds bilaterally, abdomen is benign , no edema. Phenobarbital level is 32 which is therapeutic. Assessment & Plan 1. Delirium tremens 2. Possible superimposed behavioral disorder. Mood disorder, also cannot be totally excluded. 3. Alcohol related hallucination. 4. Thrombocytopenia and leukopenia related to bone marrow suppression secondary to alcohol use. Plan: 1. Discontinue all benzodiazepines. 2. Change phenobarbital to 32.4 mg p.o. every 6 hours. 3. Continue with clonidine 0.2 mg p.o. twice a day.. 4. Continue with phenobarbital IV 65 mg as needed every 6 hours. 5. Zyprexa 20 mg at bedtime. 6. Continue with one-to-one. 7. Thiamine 300 mg p.o. daily. 8. Oral intake. 9. The patient is incompetent to make a decision and he cannot sign out himself AMA. 10. Taper phenobarbital every 2 days by dose down to 16.2 mg then by frequency every 8 hours then every 12 hours, then taper to 8.1 mg and 4.05 mg p.o. twice daily for 2 days then stop it. 11. Psych consult when appropriate. 12. Phenobarbital level Appeared stable at 32. No evidence of toxicity. Thank you. Will follow . CCT 35 minutes. Data Medications: Current Inpatient Medications Medications (Trade) Dose Ordered Sig/Rica Route Start Time Stop Time Status Last Admin Dose Admin Diltiazem HCl (Cardizem Cd Cap) 120 mg QAM PO 12/20/17 09:00 01/19/18 08:59 12/25/17 07:48 120 MG Folic Acid (Folvite Tab) 1 mg QAM PO 12/20/17 09:00 01/19/18 08:59 12/25/17 07:45 1 MG Levetiracetam (Keppra Tab) 1,000 mg Q12 PO 12/19/17 21:00 01/18/18 20:59 12/25/17 07:46 1,000 MG Potassium Chloride (Klor-Con Tab) 20 meq QAM PO 12/23/17 09:00 01/22/18 08:59 12/25/17 07:47 20 MEQ Clonidine HCl (Catapres Tab) 0.2 mg BID PO 12/22/17 21:00 01/21/18 20:59 12/25/17 07:46 0.2 MG Thiamine HCl (Vitamin B-1 Tab) 300 mg QAM PO 12/24/17 10:00 01/23/18 09:59 12/25/17 07:47 300 MG Phenobarbital Sodium 130 mg/ Syringe 2 ml @ 1 mls/min Q6 PRN IV 12/24/17 09:15 01/23/18 09:14 12/25/17 10:47 1 MLS/MIN Olanzapine (Zyprexa Tab) 20 mg HS PO 12/24/17 21:00 01/20/18 10:59 12/24/17 19:58 20 MG Phenobarbital (Phenobarbital Tab) 32.4 mg Q6 PO 12/25/17 12:00 01/23/18 11:59 12/25/17 13:18 32.4 MG Vital Signs: Date Time Temp Pulse Resp B/P (MAP) Pulse Ox O2 Delivery O2 Flow Rate FiO2 12/25/17 08:00 Room Air 12/25/17 05:28 36.5 84 18 144/97 (113) 98 Room Air 12/25/17 00:56 Room Air 12/24/17 19:54 86 95/64 (74) 12/24/17 16:00 Room Air
[2017-12-25 16:00] VITALS: BP 91/64; PULSE 79; TEMP 36.4; O2SAT 94
--- NOTE | 2017-12-25 18:44 | Progress Note ---
Subjective Date of Service: Dec 25, 2017. Subjective Pt evaluation today including: conversation w/ patient, physical exam, lab review, review of studies, review of inpatient medication list Saw/examined the patient in room 256 He states he's doing well Baseline slurring of speech, difficult to understand, but tells me he has no problems/issues As per nursing, good PO intake, but coughing afterwards; he denies shortness of breath Problem List Medical Problems: (1) Alcohol abuse Status: Chronic (2) Alcohol intoxication Status: Acute (3) Alcohol withdrawal Status: Acute (4) Alcohol withdrawal Status: Acute (5) Alcohol withdrawal Status: Acute (6) Dehydration Status: Acute (7) Dehydration Status: Acute (8) DTs (delirium tremens) Status: Acute (9) Hyponatremia Status: Acute (10) Multiple contusions Status: Acute (11) Recurrent seizures Status: Acute (12) Seizure Status: Acute (13) Seizure Status: Acute (14) Thrombocytopenia Status: Chronic (15) Tobacco abuse Status: Chronic (16) Tongue laceration Status: Acute (17) Tremor Status: Acute Review of Systems Respiratory: No shortness of breath Cardiac: No chest pain difficult to obtain due to patient's mental status Medications Current Inpatient Medications Medications (Trade) Dose Ordered Sig/Rica Route Start Time Stop Time Status Last Admin Dose Admin Diltiazem HCl (Cardizem Cd Cap) 120 mg QAM PO 12/20/17 09:00 01/19/18 08:59 12/25/17 07:48 120 MG Folic Acid (Folvite Tab) 1 mg QAM PO 12/20/17 09:00 01/19/18 08:59 12/25/17 07:45 1 MG Levetiracetam (Keppra Tab) 1,000 mg Q12 PO 12/19/17 21:00 01/18/18 20:59 12/25/17 07:46 1,000 MG Potassium Chloride (Klor-Con Tab) 20 meq QAM PO 12/23/17 09:00 01/22/18 08:59 12/25/17 07:47 20 MEQ Clonidine HCl (Catapres Tab) 0.2 mg BID PO 12/22/17 21:00 01/21/18 20:59 12/25/17 07:46 0.2 MG Thiamine HCl (Vitamin B-1 Tab) 300 mg QAM PO 12/24/17 10:00 01/23/18 09:59 12/25/17 07:47 300 MG Phenobarbital Sodium 130 mg/ Syringe 2 ml @ 1 mls/min Q6 PRN IV 12/24/17 09:15 01/23/18 09:14 12/25/17 10:47 1 MLS/MIN Olanzapine (Zyprexa Tab) 20 mg HS PO 12/24/17 21:00 01/20/18 10:59 12/24/17 19:58 20 MG Phenobarbital (Phenobarbital Tab) 32.4 mg Q6 PO 12/25/17 12:00 01/23/18 11:59 12/25/17 18:18 32.4 MG Objective Vital Signs Date Time Temp Pulse Resp B/P (MAP) Pulse Ox O2 Delivery O2 Flow Rate FiO2 12/25/17 16:00 36.4 79 20 91/64 (73) 94 Room Air 12/25/17 08:00 Room Air 12/25/17 05:28 36.5 84 18 144/97 (113) 98 Room Air 12/25/17 00:56 Room Air 12/24/17 19:54 86 95/64 (74) Physical Exam General Appearance: no apparent distress, + pertinent finding (+slurring speech , disoriented at times) Respiratory/Chest: lungs clear, normal breath sounds, no respiratory distress, no accessory muscle use Cardiovascular: regular rate, rhythm, no edema, no murmur Neurologic/Psychiatric: alert, + disoriented Assessment and Plan ALCOHOL INTOXICATION/POLYSUBSTANCE ABUSE 12/25 - appreciate critical care team input - at this point he'll be on a phenobarbital taper - current dose is 32.4 mg PO q6 - will taper by 16.2mg q2 days, then decrease frequency to q8 and q12, then daily, then stop requiring high-dose phenobarbital treatment episodes of outburst with agitation , profanity and combativeness dose changed to PRN Presented with acute agitation and combativeness secondary to alcohol withdrawal History of chronic alcohol intoxication/abuse Multiple admissions/ER visits in the past with similar symptom Presents with intoxicated status blood alcohol level more than 380; with positive marijuana Critical care consulted, appreciate input CONFUSION/DELIRIUM/METABOLIC ENCEPHALOPATHY DUE TO ALCOHOL INTOXICATION / POSSIBLE WERNICKE'S ENCEPHALOPATHY Due to alcohol abuse/intoxication CT head without contrast shows no evidence of acute CVA Continue for thiamine and folate SEIZURE LIKE ACTIVITY VS ALCOHOL WITHDRAWAL SEIZURE - monitor Mg and continue withdrawal protocol with phenobarbital Patient reports of seizure Did not have any witnessed seizure episode Very hard to confirm a true seizure episode, as patient was not able to give any good history Has been on Keppra-questionable medication compliance Continued with Keppra 1000 mg twice daily Ordered for seizure precaution Neuro evaluation requested-appreciate input Recommend to continue with Keppra Patient's lot of the neurological symptoms possibly secondary to alcohol abuse intoxication HYPONATREMIA CHRONIC Appreciate nephrology evaluation Due to alcohol abuse Sodium level normalized IV fluids discontinued Follow PRP HYPOKALEMIA ordered for oral potassium tablet Repeat PRP TRANSAMINITIS AST greater than ALT With elevated alkaline phosphatase Due to alcoholic liver disease/hepatitis Right upper quadrant ultrasound Shows hepatic steatosis No evidence of gallbladder disease GI evaluation appreciated CT abdomen pelvis: Shows severely steatotic liver, no splenomegaly HISTORY OF PAF/A. FIB Continue with diltiazem Not a candidate for chronic anticoagulation secondary to alcohol intoxication/ abuse/high fall risk SIGNIFICANT THROMBOCYTOPENIA Platelet count 28->20->31 secondary to alcoholic abuse Avoid all antiplatelet/anticoagulation No indication for platelet transfusion until platelet count drops below 10 or any evidence of active bleeding Follow CBC daily peripheral blood smear 1. NORMOCHROMIC/NORMOCYTIC RED BLOOD CELLS, UNREMARKABLE LEUKOCYTES, AND MARKEDLY DECREASED NUMBERS OF PLATELETS ARE SEEN. 2. PLATELET CLUMPING IS NOT PRESENT. 3. BLASTS AND SCHISTOCYTES ARE NOT SEEN. 4. THE CLINICAL HISTORY OF ALCOHOL USE IS NOTED. Strict fall precaution Ordered for bed alarm, chair alarm High bleeding risk due to fall secondary to severe thrombocytopenia FALL/AMBULATORY DYSFUNCTION Multiple bruise on extremities, secondary to fall Possible secondary to alcohol intoxication PT OT evaluation Fall precaution ITCHING SKIN RASH /CONCERN FOR POSSIBLE SCABIES : contact isolation topical solution CODE STATUS: Full code DVT prophylaxis: SCD and teds No pharmacological anticoagulation secondary to thrombocytopenia DISPOSITION: To be determined Patient will benefit from alcohol rehab Refused rehab in past Social service consulted for discharge planning PT OT evaluation requested
[2017-12-25 19:15] VITALS: BP 104/70; PULSE 85; TEMP 36.5; O2SAT 96
[2017-12-25] MEDS: ZYPREXA 20 MG PO SCH (20:59)
[2017-12-25 21:00] VITALS: BP 103/66; PULSE 98
[2017-12-25 23:26] VITALS: BP 123/86; PULSE 79; TEMP 36.5; O2SAT 94
[2017-12-26] MEDS: PHENOBARBITAL 32.4 MG TAB PO SCH ×4 (00:34→17:50)
[2017-12-26 07:00] VITALS: BP 117/78; PULSE 81; TEMP 36.8; O2SAT 96
[2017-12-26] MEDS: POTASSIUM CHLORIDE 20 MEQ TABCR PO SCH (08:08)
[2017-12-26] MEDS: CLONIDINE HCL 0.1 MG TAB PO SCH ×2 (08:08→20:39)
[2017-12-26] MEDS: THIAMINE HCL 100 MG TAB PO SCH (08:08)
[2017-12-26] MEDS: DILTIAZEM HCL 120 MG CAPCR PO SCH (08:08)
[2017-12-26] MEDS: LEVETIRACETAM 500 MG TAB PO SCH ×2 (08:09→20:42)
--- NOTE | 2017-12-26 11:36 | Progress Note ---
Subjective Date of Service: Dec 26, 2017. Subjective Pt evaluation today including: conversation w/ patient, physical exam, lab review, review of studies, review of inpatient medication list ( ) Saw/examined the patient in room 256 He's doing okay, still agitated at times Unable to understand some of his speech due to slurring, but he is able to tell me he feels fine; denies shortness of breath Problem List Medical Problems: (1) Alcohol abuse Status: Chronic (2) Alcohol intoxication Status: Acute (3) Alcohol withdrawal Status: Acute (4) Alcohol withdrawal Status: Acute (5) Alcohol withdrawal Status: Acute (6) Dehydration Status: Acute (7) Dehydration Status: Acute (8) DTs (delirium tremens) Status: Acute (9) Hyponatremia Status: Acute (10) Multiple contusions Status: Acute (11) Recurrent seizures Status: Acute (12) Seizure Status: Acute (13) Seizure Status: Acute (14) Thrombocytopenia Status: Chronic (15) Tobacco abuse Status: Chronic (16) Tongue laceration Status: Acute (17) Tremor Status: Acute Review of Systems Respiratory: No shortness of breath difficult to obtain due to patient's mental status Medications Current Inpatient Medications Medications (Trade) Dose Ordered Sig/Rica Route Start Time Stop Time Status Last Admin Dose Admin Diltiazem HCl (Cardizem Cd Cap) 120 mg QAM PO 12/20/17 09:00 01/19/18 08:59 12/26/17 08:08 120 MG Folic Acid (Folvite Tab) 1 mg QAM PO 12/20/17 09:00 01/19/18 08:59 12/26/17 08:08 1 MG Levetiracetam (Keppra Tab) 1,000 mg Q12 PO 12/19/17 21:00 01/18/18 20:59 12/26/17 08:09 1,000 MG Potassium Chloride (Klor-Con Tab) 20 meq QAM PO 12/23/17 09:00 01/22/18 08:59 12/26/17 08:08 20 MEQ Clonidine HCl (Catapres Tab) 0.2 mg BID PO 12/22/17 21:00 01/21/18 20:59 12/26/17 08:08 0.2 MG Thiamine HCl (Vitamin B-1 Tab) 300 mg QAM PO 12/24/17 10:00 01/23/18 09:59 12/26/17 08:08 300 MG Phenobarbital Sodium 130 mg/ Syringe 2 ml @ 1 mls/min Q6 PRN IV 12/24/17 09:15 01/23/18 09:14 12/25/17 20:58 1 MLS/MIN Olanzapine (Zyprexa Tab) 20 mg HS PO 12/24/17 21:00 01/20/18 10:59 12/25/17 20:59 20 MG Phenobarbital (Phenobarbital Tab) 32.4 mg Q6 PO 12/25/17 12:00 01/23/18 11:59 12/26/17 05:38 32.4 MG Objective Vital Signs Date Time Temp Pulse Resp B/P (MAP) Pulse Ox O2 Delivery O2 Flow Rate FiO2 12/26/17 08:00 Room Air 12/26/17 07:00 36.8 81 18 117/78 (91) 96 Room Air 12/26/17 00:00 Room Air 12/25/17 23:26 36.5 79 20 123/86 (98) 94 Room Air 12/25/17 21:00 98 103/66 (78) 12/25/17 19:15 36.5 85 18 104/70 (81) 96 Room Air 12/25/17 16:00 Room Air 12/25/17 16:00 36.4 79 20 91/64 (73) 94 Room Air Physical Exam General Appearance: no apparent distress Respiratory/Chest: lungs clear, normal breath sounds, no respiratory distress, no accessory muscle use Cardiovascular: regular rate, rhythm, no edema, no murmur Extremities: normal inspection, no pedal edema Neurologic/Psychiatric: + disoriented Assessment and Plan ALCOHOL INTOXICATION/POLYSUBSTANCE ABUSE 12/26 - continue phenobarbital taper - likely brain damage from alcohol abuse; gait disturbance, confusion/ disorientation 12/25 - appreciate critical care team input - at this point he'll be on a phenobarbital taper - current dose is 32.4 mg PO q6 - will taper by 16.2mg q2 days, then decrease frequency to q8 and q12, then daily, then stop requiring high-dose phenobarbital treatment episodes of outburst with agitation , profanity and combativeness dose changed to PRN Presented with acute agitation and combativeness secondary to alcohol withdrawal History of chronic alcohol intoxication/abuse Multiple admissions/ER visits in the past with similar symptom Presents with intoxicated status blood alcohol level more than 380; with positive marijuana Critical care consulted, appreciate input CONFUSION/DELIRIUM/METABOLIC ENCEPHALOPATHY DUE TO ALCOHOL INTOXICATION / POSSIBLE WERNICKE'S ENCEPHALOPATHY Due to alcohol abuse/intoxication CT head without contrast shows no evidence of acute CVA Continue for thiamine and folate SEIZURE LIKE ACTIVITY VS ALCOHOL WITHDRAWAL SEIZURE - monitor Mg and continue withdrawal protocol with phenobarbital Patient reports of seizure Did not have any witnessed seizure episode Very hard to confirm a true seizure episode, as patient was not able to give any good history Has been on Keppra-questionable medication compliance Continued with Keppra 1000 mg twice daily Ordered for seizure precaution Neuro evaluation requested-appreciate input Recommend to continue with Keppra Patient's lot of the neurological symptoms possibly secondary to alcohol abuse intoxication HYPONATREMIA CHRONIC Appreciate nephrology evaluation Due to alcohol abuse Sodium level normalized IV fluids discontinued Follow PRP HYPOKALEMIA ordered for oral potassium tablet Repeat PRP TRANSAMINITIS AST greater than ALT With elevated alkaline phosphatase Due to alcoholic liver disease/hepatitis Right upper quadrant ultrasound Shows hepatic steatosis No evidence of gallbladder disease GI evaluation appreciated CT abdomen pelvis: Shows severely steatotic liver, no splenomegaly HISTORY OF PAF/A. FIB Continue with diltiazem Not a candidate for chronic anticoagulation secondary to alcohol intoxication/ abuse/high fall risk SIGNIFICANT THROMBOCYTOPENIA Platelet count 28->20->31 secondary to alcoholic abuse Avoid all antiplatelet/anticoagulation No indication for platelet transfusion until platelet count drops below 10 or any evidence of active bleeding Follow CBC daily peripheral blood smear 1. NORMOCHROMIC/NORMOCYTIC RED BLOOD CELLS, UNREMARKABLE LEUKOCYTES, AND MARKEDLY DECREASED NUMBERS OF PLATELETS ARE SEEN. 2. PLATELET CLUMPING IS NOT PRESENT. 3. BLASTS AND SCHISTOCYTES ARE NOT SEEN. 4. THE CLINICAL HISTORY OF ALCOHOL USE IS NOTED. Strict fall precaution Ordered for bed alarm, chair alarm High bleeding risk due to fall secondary to severe thrombocytopenia FALL/AMBULATORY DYSFUNCTION Multiple bruise on extremities, secondary to fall Possible secondary to alcohol intoxication PT OT evaluation Fall precaution ITCHING SKIN RASH /CONCERN FOR POSSIBLE SCABIES : contact isolation topical solution CODE STATUS: Full code DVT prophylaxis: SCD and teds No pharmacological anticoagulation secondary to thrombocytopenia DISPOSITION: To be determined Patient will benefit from alcohol rehab Refused rehab in past Social service consulted for discharge planning PT OT evaluation requested
[2017-12-26 15:21] VITALS: BP 121/79; PULSE 72; TEMP 36.7; O2SAT 96
--- NOTE | 2017-12-26 15:43 | Critical Care Progress Note ---
Critical Care Progress Note Date of Service Dec 26, 2017. Attending Dr. Jazmin iSnger The patient continued to be confused, delirious, however he is more calm, he did require 1 dose of phenobarbital for the past 24 hours, no additional doses were needed. He is tolerating oral intake. Review of system is not obtainable from this patient who is chronically delirious. Objective Physical exam on 12/21/2017 revealed middle-age gentleman, does not appear to be in any distress, somewhat confused but he is answering questions and following commands, no chest pain reported, vital signs are stable, S1-S2 regular rate and rhythm, lungs are clear, no tremor to my exam. He is sitting in a chair comfortably. His labs also were reviewed which showed platelets improved to 31, 000 and he continued to have leukopenia. Physical exam on 12/22/2017 showed middle-aged gentleman, currently he is more somnolent as he just received phenobarbital dose. Not in distress. S1-S2, lungs with distant breath sounds, abdomen is benign, no tremor to my exam. Labs are consistent with leukopenia and thrombocytopenia. Physical exam on 12/23/2017 showed middle-aged gentleman, controlling his airways , 100% on room air, difficult to arouse but able to open his eyes, S1-S2 regular rate and rhythm, distant breath sounds bilaterally, abdomen is benign, no edema. Neurologically difficult to assess. No change in labs except for mild improvement in thrombocytopenia. No new imaging. Physical exam on 12/24/2017 showed stable vital signs on room air, 98%, S1-S2 regular rate and rhythm, no tachycardia or hypotension, no diaphoresis, lungs are clear, S1-S2 regular rate and rhythm, no edema. Labs were reviewed as well with thrombocytopenia. Physical exam on 12/25/2017 showed vital signs are stable, 98% on room air, S1- S2 regular rate and rhythm, distant breath sounds bilaterally, abdomen is benign , no edema. Phenobarbital level is 32 which is therapeutic. Physical exam on 12/26/2017 showed vital signs are stable, O2 sat 96% on room air , minimal secretions from the oral cavity, distant breath sounds, abdomen is benign, no edema. Labs from previous were reviewed as well. Assessment & Plan 1. Delirium tremens 2. Possible superimposed behavioral disorder. Mood disorder, also cannot be totally excluded. 3. Alcohol related hallucination. 4. Thrombocytopenia and leukopenia related to bone marrow suppression secondary to alcohol use. Plan: 1. Discontinue all benzodiazepines. 2. Change phenobarbital to 32.4 mg p.o. every 6 hours. Decrease the dose to 16.2 mg every 6 hours in the morning for 2 days and then 8.1 mg every 6 hours for 2 days then 4 mg p.o. every 6 hours for 2 days then 4 mg p.o. every 12 hours for 2 days and then stop it. 3. Continue with clonidine 0.2 mg p.o. twice a day.. 4. Continue with phenobarbital IV 65 mg as needed every 6 hours. 5. Zyprexa 20 mg at bedtime. 6. Continue with one-to-one. 7. Thiamine 300 mg p.o. daily. 8. Oral intake. 9. The patient is incompetent to make a decision and he cannot sign out himself AMA. 10. The patient likely will need inpatient detox rather than outpatient. 11. Psych consult when appropriate to participate in fruitful conversation. 12. Discussed with the staff and details. Thank you. Will follow as needed, continue with the above protocol of tapering phenobarbital to off. Data Medications: Current Inpatient Medications Medications (Trade) Dose Ordered Sig/Rica Route Start Time Stop Time Status Last Admin Dose Admin Diltiazem HCl (Cardizem Cd Cap) 120 mg QAM PO 12/20/17 09:00 01/19/18 08:59 12/26/17 08:08 120 MG Folic Acid (Folvite Tab) 1 mg QAM PO 12/20/17 09:00 01/19/18 08:59 12/26/17 08:08 1 MG Levetiracetam (Keppra Tab) 1,000 mg Q12 PO 12/19/17 21:00 01/18/18 20:59 12/26/17 08:09 1,000 MG Potassium Chloride (Klor-Con Tab) 20 meq QAM PO 12/23/17 09:00 01/22/18 08:59 12/26/17 08:08 20 MEQ Clonidine HCl (Catapres Tab) 0.2 mg BID PO 12/22/17 21:00 01/21/18 20:59 12/26/17 08:08 0.2 MG Thiamine HCl (Vitamin B-1 Tab) 300 mg QAM PO 12/24/17 10:00 01/23/18 09:59 12/26/17 08:08 300 MG Phenobarbital Sodium 130 mg/ Syringe 2 ml @ 1 mls/min Q6 PRN IV 12/24/17 09:15 01/23/18 09:14 12/25/17 20:58 1 MLS/MIN Olanzapine (Zyprexa Tab) 20 mg HS PO 12/24/17 21:00 01/20/18 10:59 12/25/17 20:59 20 MG Phenobarbital (Phenobarbital Tab) 32.4 mg Q6 PO 12/25/17 12:00 01/23/18 11:59 12/26/17 11:35 32.4 MG I & O: 24-Hour Column 12/27/17 08:00 Intake Total 200 ml Balance 200 ml Vital Signs: Date Time Temp Pulse Resp B/P (MAP) Pulse Ox O2 Delivery O2 Flow Rate FiO2 12/26/17 15:21 36.7 72 18 121/79 (93) 96 Room Air 12/26/17 08:00 Room Air 12/26/17 07:00 36.8 81 18 117/78 (91) 96 Room Air 12/26/17 00:00 Room Air 12/25/17 23:26 36.5 79 20 123/86 (98) 94 Room Air 12/25/17 21:00 98 103/66 (78) 12/25/17 19:15 36.5 85 18 104/70 (81) 96 Room Air 12/25/17 16:00 Room Air 12/25/17 16:00 36.4 79 20 91/64 (73) 94 Room Air
[2017-12-26 16:00] VITALS: O2SAT 96
[2017-12-26 20:32] VITALS: BP 98/59; PULSE 97; O2SAT 95
[2017-12-26] MEDS: ZYPREXA 20 MG PO SCH (20:42)
[2017-12-26 23:05] VITALS: BP 88/54; PULSE 100; TEMP 36.8; O2SAT 94
[2017-12-26] MEDS ORDERED: LACTATED RINGER'S 1000ML 1,000 ML IV ONE (23:15)
[2017-12-26] MEDS ORDERED: ACETAMINOPHEN 325 MG TAB PO PRN (23:15)
[2017-12-26 23:38] LABS: BASO % 0.2 %; BASO ABS # 0.01 K/uL (0-0.2); EOS ABS # 0.05 K/uL (0-0.5); HEMATOCRIT 38.6 % (42-52); IG# 0.01 K/uL (0.00-0.02); LYMPH % 15.7 %; LYMPH ABS # 0.81 K/uL (1.2-3.4); MEAN CELL VOLUME 95.1 fL (80-100); MEAN CORPUSCULAR HGB CONC 33.7 g/dl (32-36); MEAN PLATELET VOLUME 10.4 fL (7.4-10.4); MONO % 15.1 %; MONO ABS # 0.78 K/uL (0.11-0.59); NEUT % 67.8 %; NEUT ABS # 3.49 K/uL (1.4-6.5); PLATELET COUNT 164 K/uL (130-400); RED CELL DISTRIBUTION WIDTH SD 41.3 fL (36.4-46.3); WHITE BLOOD COUNT 5.15 K/uL (4.8-10.8)
[2017-12-27 00:03] LABS: ALBUMIN 3.2 gm/dl (3.4-5.0); CALCIUM 8.5 mg/dl (8.5-10.1); CREATININE 0.89 mg/dl (0.60-1.40); POTASSIUM 3.7 mmol/L (3.5-5.1)
[2017-12-27 00:19] VITALS: BP 103/73
[2017-12-27] MEDS: PHENOBARBITAL 32.4 MG TAB PO SCH ×3 (00:39→11:38)
[2017-12-27 02:03] VITALS: BP 139/86
[2017-12-27 06:30] LABS: HEMATOCRIT 38.8 % (42-52); MEAN CELL VOLUME 95.1 fL (80-100); MEAN CORPUSCULAR HEMOGLOBIN 31.9 pg (25-34); MEAN CORPUSCULAR HGB CONC 33.5 g/dl (32-36); MEAN PLATELET VOLUME 10.3 fL (7.4-10.4); PLATELET COUNT 165 K/uL (130-400); RED CELL DISTRIBUTION WIDTH CV 11.9 % (11.5-14.5); RED CELL DISTRIBUTION WIDTH SD 41.5 fL (36.4-46.3); WHITE BLOOD COUNT 6.07 K/uL (4.8-10.8)
[2017-12-27 06:34] VITALS: BP 121/75; PULSE 93; TEMP 36.5; O2SAT 96
[2017-12-27 07:10] LABS: CALCIUM 8.8 mg/dl (8.5-10.1); CREATININE 0.66 mg/dl (0.60-1.40); POTASSIUM 3.4 mmol/L (3.5-5.1)
[2017-12-27] MEDS ORDERED: POTASSIUM CHLR 10 MEQ / WTR 100 ML IV STA (07:37)
[2017-12-27] MEDS: THIAMINE HCL 100 MG TAB PO SCH (07:56)
[2017-12-27] MEDS: POTASSIUM CHLORIDE 20 MEQ TABCR PO SCH (07:56)
[2017-12-27] MEDS: DILTIAZEM HCL 120 MG CAPCR PO SCH (07:56)
[2017-12-27] MEDS: LEVETIRACETAM 500 MG TAB PO SCH ×2 (07:57→21:01)
[2017-12-27] MEDS: CLONIDINE HCL 0.1 MG TAB PO SCH ×2 (07:57→21:01)
[2017-12-27] MEDS: PHENOBARBITAL SOD IV PRN (12:39)
--- NOTE | 2017-12-27 15:38 | Progress Note ---
Subjective Date of Service: Dec 27, 2017. Subjective Pt evaluation today including: conversation w/ patient, physical exam, lab review, review of studies, review of inpatient medication list Saw/examined the patient in room 256 He states he's doing fine, no problems/issues at this time Intermittently agitated/anxious Problem List Medical Problems: (1) Alcohol abuse Status: Chronic (2) Alcohol intoxication Status: Acute (3) Alcohol withdrawal Status: Acute (4) Alcohol withdrawal Status: Acute (5) Alcohol withdrawal Status: Acute (6) Dehydration Status: Acute (7) Dehydration Status: Acute (8) DTs (delirium tremens) Status: Acute (9) Hyponatremia Status: Acute (10) Multiple contusions Status: Acute (11) Recurrent seizures Status: Acute (12) Seizure Status: Acute (13) Seizure Status: Acute (14) Thrombocytopenia Status: Chronic (15) Tobacco abuse Status: Chronic (16) Tongue laceration Status: Acute (17) Tremor Status: Acute Medications Current Inpatient Medications Medications (Trade) Dose Ordered Sig/Rica Route Start Time Stop Time Status Last Admin Dose Admin Diltiazem HCl (Cardizem Cd Cap) 120 mg QAM PO 12/20/17 09:00 01/19/18 08:59 12/27/17 07:56 120 MG Folic Acid (Folvite Tab) 1 mg QAM PO 12/20/17 09:00 01/19/18 08:59 12/27/17 07:57 1 MG Levetiracetam (Keppra Tab) 1,000 mg Q12 PO 12/19/17 21:00 01/18/18 20:59 12/27/17 07:57 1,000 MG Potassium Chloride (Klor-Con Tab) 20 meq QAM PO 12/23/17 09:00 01/22/18 08:59 12/27/17 07:56 20 MEQ Clonidine HCl (Catapres Tab) 0.2 mg BID PO 12/22/17 21:00 01/21/18 20:59 12/27/17 07:57 0.2 MG Thiamine HCl (Vitamin B-1 Tab) 300 mg QAM PO 12/24/17 10:00 01/23/18 09:59 12/27/17 07:56 300 MG Phenobarbital Sodium 130 mg/ Syringe 2 ml @ 1 mls/min Q6 PRN IV 12/24/17 09:15 8/15/18 09:14 12/27/17 12:39 1 MLS/MIN Olanzapine (Zyprexa Tab) 20 mg HS PO 12/24/17 21:00 01/20/18 10:59 12/26/17 20:42 20 MG Phenobarbital (Phenobarbital Tab) 32.4 mg Q6 PO 12/25/17 12:00 01/23/18 11:59 12/27/17 11:38 32.4 MG Acetaminophen (Tylenol Tab) 325 mg Q6H PRN PO 12/26/17 23:15 01/25/18 23:14 Objective Vital Signs Date Time Temp Pulse Resp B/P (MAP) Pulse Ox O2 Delivery O2 Flow Rate FiO2 12/27/17 08:15 Room Air 12/27/17 06:34 36.5 93 20 121/75 (90) 96 Room Air 12/27/17 02:03 139/86 (103) 12/27/17 00:19 103/73 (83) 12/27/17 00:01 Room Air 12/26/17 23:05 36.8 100 18 88/54 (65) 94 Room Air 12/26/17 20:32 97 98/59 (72) 95 Room Air 12/26/17 16:00 96 Room Air Physical Exam General Appearance: no apparent distress Neurologic/Psychiatric: alert, + motor weakness, + sensory deficit, + pertinent finding (at times disoriented, chonic slurring of speech) Laboratory Results Last 24 Hours Test 12/26/17 23:26 12/27/17 06:02 White Blood Count 5.15 K/uL 6.07 K/uL Red Blood Count 4.06 M/uL 4.08 M/uL Hemoglobin 13.0 g/dL 13.0 g/dL Hematocrit 38.6 % 38.8 % Mean Corpuscular Volume 95.1 fL 95.1 fL Mean Corpuscular Hemoglobin 32.0 pg 31.9 pg Mean Corpuscular Hemoglobin Concent 33.7 g/dl 33.5 g/dl Platelet Count 164 K/uL 165 K/uL Mean Platelet Volume 10.4 fL 10.3 fL Neutrophils (%) (Auto) 67.8 % Lymphocytes (%) (Auto) 15.7 % Monocytes (%) (Auto) 15.1 % Eosinophils (%) (Auto) 1.0 % Basophils (%) (Auto) 0.2 % Neutrophils # (Auto) 3.49 K/uL Lymphocytes # (Auto) 0.81 K/uL Monocytes # (Auto) 0.78 K/uL Eosinophils # (Auto) 0.05 K/uL Basophils # (Auto) 0.01 K/uL RDW Standard Deviation 41.3 fL 41.5 fL RDW Coefficient of Variation 12.0 % 11.9 % Immature Granulocyte % (Auto) 0.2 % Immature Granulocyte # (Auto) 0.01 K/uL Sodium Level 143 mmol/L 141 mmol/L Potassium Level 3.7 mmol/L 3.4 mmol/L Chloride Level 108 mmol/L 108 mmol/L Carbon Dioxide Level 28 mmol/L 27 mmol/L Anion Gap 7.0 mmol/L 7.0 mmol/L Blood Urea Nitrogen 10 mg/dl 9 mg/dl Creatinine 0.89 mg/dl 0.66 mg/dl Est Creatinine Clear Calc Drug Dose 113.7 ml/min 153.4 ml/min Estimated GFR () 110.8 125.3 Estimated GFR (Non- 95.6 108.1 BUN/Creatinine Ratio 10.9 13.7 Random Glucose 113 mg/dl 84 mg/dl Lactic Acid Level 1.3 mmol/L Calcium Level 8.5 mg/dl 8.8 mg/dl Total Bilirubin 0.6 mg/dl Aspartate Amino Transf (AST/SGOT) 79 U/L Alanine Aminotransferase (ALT/SGPT) 149 U/L Alkaline Phosphatase 125 U/L Total Protein 7.0 gm/dl Albumin 3.2 gm/dl Globulin 3.8 gm/dl Albumin/Globulin Ratio 0.8 Magnesium Level 2.3 mg/dl Assessment and Plan ALCOHOL INTOXICATION/POLYSUBSTANCE ABUSE 12/27 - continue the phenobarbital taper - will decrease dose to 16.2mg q6 hours 12/26 - continue phenobarbital taper - likely brain damage from alcohol abuse; gait disturbance, confusion/ disorientation 12/25 - appreciate critical care team input - at this point he'll be on a phenobarbital taper - current dose is 32.4 mg PO q6 - will taper by 16.2mg q2 days, then decrease frequency to q8 and q12, then daily, then stop requiring high-dose phenobarbital treatment episodes of outburst with agitation , profanity and combativeness dose changed to PRN Presented with acute agitation and combativeness secondary to alcohol withdrawal History of chronic alcohol intoxication/abuse Multiple admissions/ER visits in the past with similar symptom Presents with intoxicated status blood alcohol level more than 380; with positive marijuana Critical care consulted, appreciate input CONFUSION/DELIRIUM/METABOLIC ENCEPHALOPATHY DUE TO ALCOHOL INTOXICATION / POSSIBLE WERNICKE'S ENCEPHALOPATHY Due to alcohol abuse/intoxication CT head without contrast shows no evidence of acute CVA Continue for thiamine and folate SEIZURE LIKE ACTIVITY VS ALCOHOL WITHDRAWAL SEIZURE - monitor Mg and continue withdrawal protocol with phenobarbital Patient reports of seizure Did not have any witnessed seizure episode Very hard to confirm a true seizure episode, as patient was not able to give any good history Has been on Keppra-questionable medication compliance Continued with Keppra 1000 mg twice daily Ordered for seizure precaution Neuro evaluation requested-appreciate input Recommend to continue with Keppra Patient's lot of the neurological symptoms possibly secondary to alcohol abuse intoxication HYPONATREMIA CHRONIC Appreciate nephrology evaluation Due to alcohol abuse Sodium level normalized IV fluids discontinued Follow PRP HYPOKALEMIA ordered for oral potassium tablet Repeat PRP TRANSAMINITIS AST greater than ALT With elevated alkaline phosphatase Due to alcoholic liver disease/hepatitis Right upper quadrant ultrasound Shows hepatic steatosis No evidence of gallbladder disease GI evaluation appreciated CT abdomen pelvis: Shows severely steatotic liver, no splenomegaly HISTORY OF PAF/A. FIB Continue with diltiazem Not a candidate for chronic anticoagulation secondary to alcohol intoxication/ abuse/high fall risk SIGNIFICANT THROMBOCYTOPENIA Platelet count 28->20->31 secondary to alcoholic abuse Avoid all antiplatelet/anticoagulation No indication for platelet transfusion until platelet count drops below 10 or any evidence of active bleeding Follow CBC daily peripheral blood smear 1. NORMOCHROMIC/NORMOCYTIC RED BLOOD CELLS, UNREMARKABLE LEUKOCYTES, AND MARKEDLY DECREASED NUMBERS OF PLATELETS ARE SEEN. 2. PLATELET CLUMPING IS NOT PRESENT. 3. BLASTS AND SCHISTOCYTES ARE NOT SEEN. 4. THE CLINICAL HISTORY OF ALCOHOL USE IS NOTED. Strict fall precaution Ordered for bed alarm, chair alarm High bleeding risk due to fall secondary to severe thrombocytopenia FALL/AMBULATORY DYSFUNCTION Multiple bruise on extremities, secondary to fall Possible secondary to alcohol intoxication PT OT evaluation Fall precaution ITCHING SKIN RASH /CONCERN FOR POSSIBLE SCABIES : contact isolation topical solution CODE STATUS: Full code DVT prophylaxis: SCD and teds No pharmacological anticoagulation secondary to thrombocytopenia DISPOSITION: To be determined Patient will benefit from alcohol rehab Refused rehab in past Social service consulted for discharge planning PT OT evaluation requested
[2017-12-27] MEDS: PHENOBARBITAL 15 MG TAB PO SCH (17:41)
[2017-12-27 20:54] VITALS: BP 121/82; PULSE 78; TEMP 36.5; O2SAT 96
[2017-12-27] MEDS: ZYPREXA 20 MG PO SCH (21:01)
[2017-12-27 22:36] VITALS: BP 88/58; PULSE 82; TEMP 36.5; O2SAT 96
[2017-12-28 00:08] VITALS: BP 94/67
[2017-12-28] MEDS: PHENOBARBITAL 15 MG TAB PO SCH ×6 (00:56→23:49)
[2017-12-28 06:56] LABS: CALCIUM 8.8 mg/dl (8.5-10.1); CREATININE 0.87 mg/dl (0.60-1.40); POTASSIUM 3.8 mmol/L (3.5-5.1)
[2017-12-28 07:19] VITALS: BP 85/52; PULSE 99; TEMP 36.9; O2SAT 95
[2017-12-28] MEDS ORDERED: LACTATED RINGER'S 1000ML 1,000 ML IV ONE (07:45)
[2017-12-28 08:25] VITALS: BP 102/71; PULSE 93
[2017-12-28] MEDS: LEVETIRACETAM 500 MG TAB PO SCH ×2 (08:26→20:36)
[2017-12-28] MEDS: THIAMINE HCL 100 MG TAB PO SCH (08:27)
[2017-12-28] MEDS: POTASSIUM CHLORIDE 20 MEQ TABCR PO SCH (08:28)
[2017-12-28] MEDS: DILTIAZEM HCL 120 MG CAPCR PO SCH (08:30)
[2017-12-28] MEDS: CLONIDINE HCL 0.1 MG TAB PO SCH (08:30)
[2017-12-28] MEDS: PHENOBARBITAL SOD IV PRN ×2 (11:01→23:45)
--- NOTE | 2017-12-28 11:35 | Progress Note ---
Subjective Date of Service: Dec 28, 2017. Subjective Pt evaluation today including: conversation w/ patient, physical exam, lab review, review of studies, review of inpatient medication list Saw/examined the patient in room 256 He is more alert today, talking more clearly Denies any chest pain/shortness of breath Mild persistent cough Problem List Medical Problems: (1) Alcohol abuse Status: Chronic (2) Alcohol intoxication Status: Acute (3) Alcohol withdrawal Status: Acute (4) Alcohol withdrawal Status: Acute (5) Alcohol withdrawal Status: Acute (6) Dehydration Status: Acute (7) Dehydration Status: Acute (8) DTs (delirium tremens) Status: Acute (9) Hyponatremia Status: Acute (10) Multiple contusions Status: Acute (11) Recurrent seizures Status: Acute (12) Seizure Status: Acute (13) Seizure Status: Acute (14) Thrombocytopenia Status: Chronic (15) Tobacco abuse Status: Chronic (16) Tongue laceration Status: Acute (17) Tremor Status: Acute Review of Systems Respiratory: + cough, + sputum, No shortness of breath Medications Current Inpatient Medications Medications (Trade) Dose Ordered Sig/Rica Route Start Time Stop Time Status Last Admin Dose Admin Diltiazem HCl (Cardizem Cd Cap) 120 mg QAM PO 12/20/17 09:00 01/19/18 08:59 12/28/17 08:30 120 MG Folic Acid (Folvite Tab) 1 mg QAM PO 12/20/17 09:00 01/19/18 08:59 12/28/17 08:29 1 MG Levetiracetam (Keppra Tab) 1,000 mg Q12 PO 12/19/17 21:00 01/18/18 20:59 12/28/17 08:26 1,000 MG Potassium Chloride (Klor-Con Tab) 20 meq QAM PO 12/23/17 09:00 01/22/18 08:59 12/28/17 08:28 20 MEQ Thiamine HCl (Vitamin B-1 Tab) 300 mg QAM PO 12/24/17 10:00 01/23/18 09:59 12/28/17 08:27 300 MG Phenobarbital Sodium 130 mg/ Syringe 2 ml @ 1 mls/min Q6 PRN IV 12/24/17 09:15 01/23/18 09:14 12/28/17 11:01 1 MLS/MIN Olanzapine (Zyprexa Tab) 20 mg HS PO 12/24/17 21:00 01/20/18 10:59 12/27/17 21:01 20 MG Acetaminophen (Tylenol Tab) 325 mg Q6H PRN PO 12/26/17 23:15 01/25/18 23:14 Phenobarbital (Phenobarbital Tab) 15 mg Q6 PO 12/27/17 18:00 01/23/18 11:59 12/28/17 05:43 15 MG Clonidine HCl (Catapres Tab) 0.1 mg DAILY PO 12/28/17 09:00 01/21/18 20:59 12/28/17 08:30 0.1 MG Lactated Ringer's 1,000 ml @ 75 mls/hr [id number] ONCE IV 12/28/17 07:45 12/28/17 21:04 12/28/17 08:22 75 MLS/HR Objective Vital Signs Date Time Temp Pulse Resp B/P (MAP) Pulse Ox O2 Delivery O2 Flow Rate FiO2 12/28/17 08:25 93 102/71 (81) 12/28/17 07:19 36.9 99 20 85/52 (63) 95 12/28/17 00:08 94/67 (76) 12/28/17 00:01 Room Air 12/27/17 22:36 36.5 82 16 88/58 (68) 96 Room Air 12/27/17 20:54 36.5 78 16 121/82 (95) 96 Room Air 12/27/17 16:15 Room Air Physical Exam General Appearance: no apparent distress Respiratory/Chest: no respiratory distress, no accessory muscle use Cardiovascular: regular rate, rhythm Laboratory Results Last 24 Hours Test 12/28/17 06:09 Sodium Level 141 mmol/L Potassium Level 3.8 mmol/L Chloride Level 109 mmol/L Carbon Dioxide Level 26 mmol/L Anion Gap 7.0 mmol/L Blood Urea Nitrogen 9 mg/dl Creatinine 0.87 mg/dl Est Creatinine Clear Calc Drug Dose 116.3 ml/min Estimated GFR () 111.8 Estimated GFR (Non- 96.5 BUN/Creatinine Ratio 9.8 Random Glucose 93 mg/dl Calcium Level 8.8 mg/dl Phenobarbital Level 31.1 mcg/mL Assessment and Plan ALCOHOL INTOXICATION/POLYSUBSTANCE ABUSE 12/28 - more awake/alert today - now on phenobarbital 16.2mg [id number] - clonidine decreased to 0.1mg 12/27 - continue the phenobarbital taper - will decrease dose to 16.2mg q6 hours 12/26 - continue phenobarbital taper - likely brain damage from alcohol abuse; gait disturbance, confusion/ disorientation 12/25 - appreciate critical care team input - at this point he'll be on a phenobarbital taper - current dose is 32.4 mg PO q6 - will taper by 16.2mg q2 days, then decrease frequency to q8 and q12, then daily, then stop requiring high-dose phenobarbital treatment episodes of outburst with agitation , profanity and combativeness dose changed to PRN Presented with acute agitation and combativeness secondary to alcohol withdrawal History of chronic alcohol intoxication/abuse Multiple admissions/ER visits in the past with similar symptom Presents with intoxicated status blood alcohol level more than 380; with positive marijuana Critical care consulted, appreciate input CONFUSION/DELIRIUM/METABOLIC ENCEPHALOPATHY DUE TO ALCOHOL INTOXICATION / POSSIBLE WERNICKE'S ENCEPHALOPATHY Due to alcohol abuse/intoxication CT head without contrast shows no evidence of acute CVA Continue for thiamine and folate SEIZURE LIKE ACTIVITY VS ALCOHOL WITHDRAWAL SEIZURE - monitor Mg and continue withdrawal protocol with phenobarbital Patient reports of seizure Did not have any witnessed seizure episode Very hard to confirm a true seizure episode, as patient was not able to give any good history Has been on Keppra-questionable medication compliance Continued with Keppra 1000 mg twice daily Ordered for seizure precaution Neuro evaluation requested-appreciate input Recommend to continue with Keppra Patient's lot of the neurological symptoms possibly secondary to alcohol abuse intoxication HYPONATREMIA CHRONIC Appreciate nephrology evaluation Due to alcohol abuse Sodium level normalized IV fluids discontinued Follow PRP HYPOKALEMIA ordered for oral potassium tablet Repeat PRP TRANSAMINITIS AST greater than ALT With elevated alkaline phosphatase Due to alcoholic liver disease/hepatitis Right upper quadrant ultrasound Shows hepatic steatosis No evidence of gallbladder disease GI evaluation appreciated CT abdomen pelvis: Shows severely steatotic liver, no splenomegaly HISTORY OF PAF/A. FIB Continue with diltiazem Not a candidate for chronic anticoagulation secondary to alcohol intoxication/ abuse/high fall risk SIGNIFICANT THROMBOCYTOPENIA Platelet count 28->20->31 secondary to alcoholic abuse Avoid all antiplatelet/anticoagulation No indication for platelet transfusion until platelet count drops below 10 or any evidence of active bleeding Follow CBC daily peripheral blood smear 1. NORMOCHROMIC/NORMOCYTIC RED BLOOD CELLS, UNREMARKABLE LEUKOCYTES, AND MARKEDLY DECREASED NUMBERS OF PLATELETS ARE SEEN. 2. PLATELET CLUMPING IS NOT PRESENT. 3. BLASTS AND SCHISTOCYTES ARE NOT SEEN. 4. THE CLINICAL HISTORY OF ALCOHOL USE IS NOTED. Strict fall precaution Ordered for bed alarm, chair alarm High bleeding risk due to fall secondary to severe thrombocytopenia FALL/AMBULATORY DYSFUNCTION Multiple bruise on extremities, secondary to fall Possible secondary to alcohol intoxication PT OT evaluation Fall precaution ITCHING SKIN RASH /CONCERN FOR POSSIBLE SCABIES : contact isolation topical solution CODE STATUS: Full code DVT prophylaxis: SCD and teds No pharmacological anticoagulation secondary to thrombocytopenia DISPOSITION: To be determined Patient will benefit from alcohol rehab Refused rehab in past Social service consulted for discharge planning PT OT evaluation requested
[2017-12-28 12:54] VITALS: BP 99/66; PULSE 87; TEMP 36.4; O2SAT 100
[2017-12-28] MEDS: ZYPREXA 20 MG PO SCH (20:36)
[2017-12-28 23:40] VITALS: BP 138/86; PULSE 86
[2017-12-29] MEDS ORDERED: ALBUT/IPRATROP 3MG/0.5MG NEB 3 ML VIAL INH STA (04:57)
[2017-12-29] MEDS ORDERED: ALBUT/IPRATROP 3MG/0.5MG NEB 3 ML VIAL INH PRN (05:00)
[2017-12-29 05:08] VITALS: PULSE 88; O2SAT 94
[2017-12-29] MEDS ORDERED: AMPICILLIN/SULBACTAM SOD INJ 3,000 MG in SODIUM CHLORIDE 0.9% 100ML 100 ML IV STA (05:24)
--- NOTE | 2017-12-29 05:28 | Progress Note ---
Internal Med Progress Note Date of Service: Dec 29, 2017. Provider Documentation: Made aware by RN of aspiration concerns particularly with liquids in a.m. Respiratory distress noted at 5 AM today after drinking coffee. Coffee came out of patient's nostrils. CXR as per my interpretation interstitial fullness AP Aspiration pneumonitis IV Unasyn Stat neb Solu-Medrol 1 dose Swallow eval Will relay to AM provider. Vital Signs: Date Time Temp Pulse Resp B/P (MAP) Pulse Ox O2 Delivery O2 Flow Rate FiO2 12/29/17 08:00 98 Room Air 12/29/17 07:10 36.7 84 24 119/76 (90) 98 Room Air 12/29/17 05:08 88 20 94 Nasal Cannula 2.0 12/29/17 00:00 Room Air 12/28/17 23:40 86 20 138/86 (103) 12/28/17 16:00 Room Air 12/28/17 12:54 36.4 87 20 99/66 (77) 100 Lab Results:
[2017-12-29] MEDS: PHENOBARBITAL 15 MG TAB PO SCH ×5 (05:40→23:46)
[2017-12-29] MEDS ORDERED: METHYLPREDNISOLONE IV 20 MG in SYRINGE 0 ML IV ONE (05:45)
[2017-12-29 07:10] VITALS: BP 119/76; PULSE 84; TEMP 36.7; O2SAT 98
[2017-12-29] MEDS: AMOXICILLIN/CLAVULANATE TAB 875 MG TAB PO SCH ×2 (07:44→16:47)
[2017-12-29] MEDS: CLONIDINE HCL 0.1 MG TAB PO SCH (07:44)
[2017-12-29] MEDS: POTASSIUM CHLORIDE 20 MEQ TABCR PO SCH (07:44)
[2017-12-29] MEDS: DILTIAZEM HCL 120 MG CAPCR PO SCH (07:45)
[2017-12-29] MEDS: THIAMINE HCL 100 MG TAB PO SCH (07:45)
[2017-12-29] MEDS: LEVETIRACETAM 500 MG TAB PO SCH ×2 (07:45→20:20)
[2017-12-29 08:00] VITALS: O2SAT 98
[2017-12-29] MEDS ORDERED: AMPICILLIN/SULBACTAM CONSULT ACTIVE PRN (09:00)
--- NOTE | 2017-12-29 09:10 | DIAGNOSTIC IMAGING REPORT ---
CHEST ONE VIEW PORTABLE HISTORY: cough COMPARISON: Chest 12/19/2017. FINDINGS: The heart is normal in size. No focal lung consolidations to suggest pneumonia. Old, healed bilateral rib fractures, unchanged. No pleural effusions. No pneumothorax. There are low lung volumes. Mild diffuse interstitial prominence remains stable. IMPRESSION: No significant change compared to the prior study. No acute process. Electronically signed by: Dalton Adler M.D. 12/29/2017 9:08 AM Dictated Date/Time: 12/29/2017 9:07 AM
[2017-12-29] MEDS ORDERED: AMPICILLIN/SULBACTAM SOD INJ 3,000 MG in SODIUM CHLORIDE 0.9% 100ML 100 ML IV SCH (12:00)
--- NOTE | 2017-12-29 12:51 | Progress Note ---
Subjective Date of Service: Dec 29, 2017. Subjective Pt evaluation today including: conversation w/ patient, physical exam, lab review, review of studies, review of inpatient medication list Saw/examined the patient in room 256 He's doing well; he had a fall last evening in the room, but doing well Had a cough last evening with meals, but doing better this morning Eager to go home Problem List Medical Problems: (1) Alcohol abuse Status: Chronic (2) Alcohol intoxication Status: Acute (3) Alcohol withdrawal Status: Acute (4) Alcohol withdrawal Status: Acute (5) Alcohol withdrawal Status: Acute (6) Dehydration Status: Acute (7) Dehydration Status: Acute (8) DTs (delirium tremens) Status: Acute (9) Hyponatremia Status: Acute (10) Multiple contusions Status: Acute (11) Recurrent seizures Status: Acute (12) Seizure Status: Acute (13) Seizure Status: Acute (14) Thrombocytopenia Status: Chronic (15) Tobacco abuse Status: Chronic (16) Tongue laceration Status: Acute (17) Tremor Status: Acute Review of Systems Respiratory: + cough, + sputum, No shortness of breath Cardiac: No chest pain Neurologic: + balance problems Psychiatric: No depression symptoms, No anxiety, No insomnia Medications Current Inpatient Medications Medications (Trade) Dose Ordered Sig/Rica Route Start Time Stop Time Status Last Admin Dose Admin Diltiazem HCl (Cardizem Cd Cap) 120 mg QAM PO 12/20/17 09:00 01/19/18 08:59 12/29/17 07:45 120 MG Folic Acid (Folvite Tab) 1 mg QAM PO 12/20/17 09:00 01/19/18 08:59 12/29/17 07:44 1 MG Levetiracetam (Keppra Tab) 1,000 mg Q12 PO 12/19/17 21:00 01/18/18 20:59 12/29/17 07:45 1,000 MG Potassium Chloride (Klor-Con Tab) 20 meq QAM PO 12/23/17 09:00 01/22/18 08:59 12/29/17 07:44 20 MEQ Thiamine HCl (Vitamin B-1 Tab) 300 mg QAM PO 12/24/17 10:00 01/23/18 09:59 12/29/17 07:45 300 MG Phenobarbital Sodium 130 mg/ Syringe 2 ml @ 1 mls/min Q6 PRN IV 12/24/17 09:15 01/23/18 09:14 12/28/17 23:45 1 MLS/MIN Olanzapine (Zyprexa Tab) 20 mg HS PO 12/24/17 21:00 01/20/18 10:59 12/28/17 20:36 20 MG Acetaminophen (Tylenol Tab) 325 mg Q6H PRN PO 12/26/17 23:15 01/25/18 23:14 Phenobarbital (Phenobarbital Tab) 15 mg Q6 PO 12/27/17 18:00 01/23/18 11:59 12/28/17 19:12 15 MG Clonidine HCl (Catapres Tab) 0.1 mg DAILY PO 12/28/17 09:00 01/21/18 20:59 12/29/17 07:44 0.1 MG Albuterol/ Ipratropium (Duoneb) 3 ml Q2H PRN INH 12/29/17 05:00 01/28/18 04:59 Amoxicillin/ Clavulanate Potassium (Augmentin Tab) 875 mg BIDM PO 12/29/17 08:00 01/05/18 07:59 12/29/17 07:44 875 MG Objective Vital Signs Date Time Temp Pulse Resp B/P (MAP) Pulse Ox O2 Delivery O2 Flow Rate FiO2 12/29/17 08:00 98 Room Air 12/29/17 07:10 36.7 84 24 119/76 (90) 98 Room Air 12/29/17 05:08 88 20 94 Nasal Cannula 2.0 12/29/17 00:00 Room Air 12/28/17 23:40 86 20 138/86 (103) 12/28/17 16:00 Room Air 12/28/17 12:54 36.4 87 20 99/66 (77) 100 Physical Exam General Appearance: no apparent distress Respiratory/Chest: lungs clear, normal breath sounds, no respiratory distress, no accessory muscle use Cardiovascular: regular rate, rhythm, no edema, no murmur Extremities: normal inspection, no pedal edema Neurologic/Psychiatric: no motor/sensory deficits, alert, normal mood/affect Assessment and Plan ALCOHOL INTOXICATION/POLYSUBSTANCE ABUSE 12/29 - continue phenobarbital dose; will taper on 12/30 - continue clonidine - speech evaluation pending - Augmentin ordered due to possible aspiration, will need to recheck CXR in 1-2 days 12/28 - more awake/alert today - now on phenobarbital 16.2mg [id number] - clonidine decreased to 0.1mg 12/27 - continue the phenobarbital taper - will decrease dose to 16.2mg q6 hours 12/26 - continue phenobarbital taper - likely brain damage from alcohol abuse; gait disturbance, confusion/ disorientation 12/25 - appreciate critical care team input - at this point he'll be on a phenobarbital taper - current dose is 32.4 mg PO q6 - will taper by 16.2mg q2 days, then decrease frequency to q8 and q12, then daily, then stop requiring high-dose phenobarbital treatment episodes of outburst with agitation , profanity and combativeness dose changed to PRN Presented with acute agitation and combativeness secondary to alcohol withdrawal History of chronic alcohol intoxication/abuse Multiple admissions/ER visits in the past with similar symptom Presents with intoxicated status blood alcohol level more than 380; with positive marijuana Critical care consulted, appreciate input CONFUSION/DELIRIUM/METABOLIC ENCEPHALOPATHY DUE TO ALCOHOL INTOXICATION / POSSIBLE WERNICKE'S ENCEPHALOPATHY Due to alcohol abuse/intoxication CT head without contrast shows no evidence of acute CVA Continue for thiamine and folate SEIZURE LIKE ACTIVITY VS ALCOHOL WITHDRAWAL SEIZURE - monitor Mg and continue withdrawal protocol with phenobarbital Patient reports of seizure Did not have any witnessed seizure episode Very hard to confirm a true seizure episode, as patient was not able to give any good history Has been on Keppra-questionable medication compliance Continued with Keppra 1000 mg twice daily Ordered for seizure precaution Neuro evaluation requested-appreciate input Recommend to continue with Keppra Patient's lot of the neurological symptoms possibly secondary to alcohol abuse intoxication HYPONATREMIA CHRONIC Appreciate nephrology evaluation Due to alcohol abuse Sodium level normalized IV fluids discontinued Follow PRP HYPOKALEMIA ordered for oral potassium tablet Repeat PRP TRANSAMINITIS AST greater than ALT With elevated alkaline phosphatase Due to alcoholic liver disease/hepatitis Right upper quadrant ultrasound Shows hepatic steatosis No evidence of gallbladder disease GI evaluation appreciated CT abdomen pelvis: Shows severely steatotic liver, no splenomegaly HISTORY OF PAF/A. FIB Continue with diltiazem Not a candidate for chronic anticoagulation secondary to alcohol intoxication/ abuse/high fall risk SIGNIFICANT THROMBOCYTOPENIA Platelet count 28->20->31 secondary to alcoholic abuse Avoid all antiplatelet/anticoagulation No indication for platelet transfusion until platelet count drops below 10 or any evidence of active bleeding Follow CBC daily peripheral blood smear 1. NORMOCHROMIC/NORMOCYTIC RED BLOOD CELLS, UNREMARKABLE LEUKOCYTES, AND MARKEDLY DECREASED NUMBERS OF PLATELETS ARE SEEN. 2. PLATELET CLUMPING IS NOT PRESENT. 3. BLASTS AND SCHISTOCYTES ARE NOT SEEN. 4. THE CLINICAL HISTORY OF ALCOHOL USE IS NOTED. Strict fall precaution Ordered for bed alarm, chair alarm High bleeding risk due to fall secondary to severe thrombocytopenia FALL/AMBULATORY DYSFUNCTION Multiple bruise on extremities, secondary to fall Possible secondary to alcohol intoxication PT OT evaluation Fall precaution ITCHING SKIN RASH /CONCERN FOR POSSIBLE SCABIES : contact isolation topical solution CODE STATUS: Full code DVT prophylaxis: SCD and teds No pharmacological anticoagulation secondary to thrombocytopenia DISPOSITION: To be determined Patient will benefit from alcohol rehab Refused rehab in past Social service consulted for discharge planning PT OT evaluation requested
[2017-12-29 14:48] VITALS: BP 125/79; PULSE 109; TEMP 36.6; O2SAT 97
[2017-12-29 19:09] VITALS: BP 131/84; PULSE 101; TEMP 36.5; O2SAT 94
[2017-12-29] MEDS ORDERED: LORAZEPAM 2 MG/ML 1 ML VIAL IV PRN (19:30)
[2017-12-29] MEDS: ZYPREXA 20 MG PO SCH (20:20)
[2017-12-29 23:22] VITALS: BP 128/80; PULSE 88; TEMP 36.5; O2SAT 96
[2017-12-30] MEDS: PHENOBARBITAL 15 MG TAB PO SCH ×4 (05:33→23:48)
[2017-12-30 07:24] VITALS: BP 127/94; PULSE 88; TEMP 36.7; O2SAT 97
[2017-12-30] MEDS: AMOXICILLIN/CLAVULANATE TAB 875 MG TAB PO SCH ×2 (07:50→17:30)
[2017-12-30] MEDS: THIAMINE HCL 100 MG TAB PO SCH (07:51)
[2017-12-30] MEDS: POTASSIUM CHLORIDE 20 MEQ TABCR PO SCH (07:51)
[2017-12-30] MEDS: CLONIDINE HCL 0.1 MG TAB PO SCH (07:51)
[2017-12-30] MEDS: LEVETIRACETAM 500 MG TAB PO SCH ×2 (07:51→21:37)
[2017-12-30] MEDS: DILTIAZEM HCL 120 MG CAPCR PO SCH (07:51)
[2017-12-30] MEDS ORDERED: PHENOBARBITAL SOD IV ONE (10:00)
--- NOTE | 2017-12-30 17:12 | Progress Note ---
Subjective Date of Service: Dec 30, 2017. Subjective Pt evaluation today including: conversation w/ patient, physical exam, lab review, review of studies, review of inpatient medication list Saw/examined the patient in room 256 He's slightly more agitated this morning, cursing at staff and trying to leave Did better during my conversation Eager to get out of the hospital Problem List Medical Problems: (1) Alcohol abuse Status: Chronic (2) Alcohol intoxication Status: Acute (3) Alcohol withdrawal Status: Acute (4) Alcohol withdrawal Status: Acute (5) Alcohol withdrawal Status: Acute (6) Dehydration Status: Acute (7) Dehydration Status: Acute (8) DTs (delirium tremens) Status: Acute (9) Hyponatremia Status: Acute (10) Multiple contusions Status: Acute (11) Recurrent seizures Status: Acute (12) Seizure Status: Acute (13) Seizure Status: Acute (14) Thrombocytopenia Status: Chronic (15) Tobacco abuse Status: Chronic (16) Tongue laceration Status: Acute (17) Tremor Status: Acute Review of Systems Constitutional: No fever, No chills Respiratory: No shortness of breath Cardiac: No chest pain Medications Current Inpatient Medications Medications (Trade) Dose Ordered Sig/Rica Route Start Time Stop Time Status Last Admin Dose Admin Diltiazem HCl (Cardizem Cd Cap) 120 mg QAM PO 12/20/17 09:00 01/19/18 08:59 12/30/17 07:51 120 MG Folic Acid (Folvite Tab) 1 mg QAM PO 12/20/17 09:00 01/19/18 08:59 12/30/17 07:51 1 MG Levetiracetam (Keppra Tab) 1,000 mg Q12 PO 12/19/17 21:00 01/18/18 20:59 12/30/17 07:51 1,000 MG Potassium Chloride (Klor-Con Tab) 20 meq QAM PO 12/23/17 09:00 01/22/18 08:59 12/30/17 07:51 20 MEQ Thiamine HCl (Vitamin B-1 Tab) 300 mg QAM PO 12/24/17 10:00 01/23/18 09:59 12/30/17 07:51 300 MG Olanzapine (Zyprexa Tab) 20 mg HS PO 12/24/17 21:00 01/20/18 10:59 12/29/17 20:20 20 MG Acetaminophen (Tylenol Tab) 325 mg Q6H PRN PO 12/26/17 23:15 01/25/18 23:14 Phenobarbital (Phenobarbital Tab) 15 mg Q6 PO 12/27/17 18:00 01/23/18 11:59 12/30/17 05:33 15 MG Clonidine HCl (Catapres Tab) 0.1 mg DAILY PO 12/28/17 09:00 01/21/18 20:59 12/30/17 07:51 0.1 MG Albuterol/ Ipratropium (Duoneb) 3 ml Q2H PRN INH 12/29/17 05:00 01/28/18 04:59 Amoxicillin/ Clavulanate Potassium (Augmentin Tab) 875 mg BIDM PO 12/29/17 08:00 01/05/18 07:59 12/30/17 07:50 875 MG Lorazepam (Ativan Inj) 0.5 mg Q2H PRN IV 12/29/17 19:30 01/28/18 19:29 Lorazepam 0.5 mg/ Syringe 1 ml @ 1 mls/min Q2H PRN IV 12/29/17 19:45 01/28/18 19:44 Objective Vital Signs Date Time Temp Pulse Resp B/P (MAP) Pulse Ox O2 Delivery O2 Flow Rate FiO2 12/30/17 08:00 Room Air 12/30/17 07:24 36.7 88 20 127/94 (105) 97 Room Air 12/29/17 23:22 36.5 88 16 128/80 (96) 96 Room Air 12/29/17 20:00 Room Air 12/29/17 19:09 36.5 101 18 131/84 (100) 94 Room Air Physical Exam General Appearance: no apparent distress Respiratory/Chest: no respiratory distress, no accessory muscle use, + rhonchi Cardiovascular: regular rate, rhythm, no edema, no murmur Neurologic/Psychiatric: + pertinent finding (agitated) Assessment and Plan ALCOHOL INTOXICATION/POLYSUBSTANCE ABUSE 12/30 - required an extra dose of IV phenobarbital - continue 16.2 phenobarb q6 12/29 - continue phenobarbital dose; will taper on 12/30 - continue clonidine - speech evaluation pending - Augmentin ordered due to possible aspiration, will need to recheck CXR in 1-2 days 12/28 - more awake/alert today - now on phenobarbital 16.2mg [id number] - clonidine decreased to 0.1mg 12/27 - continue the phenobarbital taper - will decrease dose to 16.2mg q6 hours 12/26 - continue phenobarbital taper - likely brain damage from alcohol abuse; gait disturbance, confusion/ disorientation 12/25 - appreciate critical care team input - at this point he'll be on a phenobarbital taper - current dose is 32.4 mg PO q6 - will taper by 16.2mg q2 days, then decrease frequency to q8 and q12, then daily, then stop requiring high-dose phenobarbital treatment episodes of outburst with agitation , profanity and combativeness dose changed to PRN Presented with acute agitation and combativeness secondary to alcohol withdrawal History of chronic alcohol intoxication/abuse Multiple admissions/ER visits in the past with similar symptom Presents with intoxicated status blood alcohol level more than 380; with positive marijuana Critical care consulted, appreciate input CONFUSION/DELIRIUM/METABOLIC ENCEPHALOPATHY DUE TO ALCOHOL INTOXICATION / POSSIBLE WERNICKE'S ENCEPHALOPATHY Due to alcohol abuse/intoxication CT head without contrast shows no evidence of acute CVA Continue for thiamine and folate SEIZURE LIKE ACTIVITY VS ALCOHOL WITHDRAWAL SEIZURE - monitor Mg and continue withdrawal protocol with phenobarbital Patient reports of seizure Did not have any witnessed seizure episode Very hard to confirm a true seizure episode, as patient was not able to give any good history Has been on Keppra-questionable medication compliance Continued with Keppra 1000 mg twice daily Ordered for seizure precaution Neuro evaluation requested-appreciate input Recommend to continue with Keppra Patient's lot of the neurological symptoms possibly secondary to alcohol abuse intoxication HYPONATREMIA CHRONIC Appreciate nephrology evaluation Due to alcohol abuse Sodium level normalized IV fluids discontinued Follow PRP HYPOKALEMIA ordered for oral potassium tablet Repeat PRP TRANSAMINITIS AST greater than ALT With elevated alkaline phosphatase Due to alcoholic liver disease/hepatitis Right upper quadrant ultrasound Shows hepatic steatosis No evidence of gallbladder disease GI evaluation appreciated CT abdomen pelvis: Shows severely steatotic liver, no splenomegaly HISTORY OF PAF/A. FIB Continue with diltiazem Not a candidate for chronic anticoagulation secondary to alcohol intoxication/ abuse/high fall risk SIGNIFICANT THROMBOCYTOPENIA Platelet count 28->20->31 secondary to alcoholic abuse Avoid all antiplatelet/anticoagulation No indication for platelet transfusion until platelet count drops below 10 or any evidence of active bleeding Follow CBC daily peripheral blood smear 1. NORMOCHROMIC/NORMOCYTIC RED BLOOD CELLS, UNREMARKABLE LEUKOCYTES, AND MARKEDLY DECREASED NUMBERS OF PLATELETS ARE SEEN. 2. PLATELET CLUMPING IS NOT PRESENT. 3. BLASTS AND SCHISTOCYTES ARE NOT SEEN. 4. THE CLINICAL HISTORY OF ALCOHOL USE IS NOTED. Strict fall precaution Ordered for bed alarm, chair alarm High bleeding risk due to fall secondary to severe thrombocytopenia FALL/AMBULATORY DYSFUNCTION Multiple bruise on extremities, secondary to fall Possible secondary to alcohol intoxication PT OT evaluation Fall precaution ITCHING SKIN RASH /CONCERN FOR POSSIBLE SCABIES : contact isolation topical solution CODE STATUS: Full code DVT prophylaxis: SCD and teds No pharmacological anticoagulation secondary to thrombocytopenia DISPOSITION: To be determined Patient will benefit from alcohol rehab Refused rehab in past Social service consulted for discharge planning PT OT evaluation requested
[2017-12-30] MEDS: LORAZEPAM INJ 0.5 MG in SYRINGE 0.75 ML IV PRN (17:47)
[2017-12-30 18:43] VITALS: BP 116/83; PULSE 99; TEMP 36.8; O2SAT 97
[2017-12-30] MEDS: ZYPREXA 20 MG PO SCH (21:37)
[2017-12-31] MEDS: LORAZEPAM INJ 0.5 MG in SYRINGE 0.75 ML IV PRN (04:48)
[2017-12-31] MEDS: PHENOBARBITAL 15 MG TAB PO SCH ×4 (05:30→23:41)
[2017-12-31 06:52] VITALS: BP 128/74; PULSE 85; TEMP 36.6; O2SAT 97
[2017-12-31] MEDS: DILTIAZEM HCL 120 MG CAPCR PO SCH (07:48)
[2017-12-31] MEDS: AMOXICILLIN/CLAVULANATE TAB 875 MG TAB PO SCH ×2 (07:48→17:26)
[2017-12-31] MEDS: CLONIDINE HCL 0.1 MG TAB PO SCH (07:48)
[2017-12-31] MEDS: POTASSIUM CHLORIDE 20 MEQ TABCR PO SCH (07:49)
[2017-12-31] MEDS: THIAMINE HCL 100 MG TAB PO SCH (07:49)
[2017-12-31] MEDS: LEVETIRACETAM 500 MG TAB PO SCH ×2 (07:49→21:35)
[2017-12-31] MEDS ORDERED: PHENOBARBITAL SOD IV ONE (09:30)
--- NOTE | 2017-12-31 12:46 | Progress Note ---
Subjective Date of Service: Dec 31, 2017. Subjective Pt evaluation today including: conversation w/ patient, physical exam, lab review, review of studies, review of inpatient medication list Saw/examined the patient in room 256 He's doing slightly better than yesterday somewhat agitated this morning, received his phenobarbital and Ativan Problem List Medical Problems: (1) Alcohol abuse Status: Chronic (2) Alcohol intoxication Status: Acute (3) Alcohol withdrawal Status: Acute (4) Alcohol withdrawal Status: Acute (5) Alcohol withdrawal Status: Acute (6) Dehydration Status: Acute (7) Dehydration Status: Acute (8) DTs (delirium tremens) Status: Acute (9) Hyponatremia Status: Acute (10) Multiple contusions Status: Acute (11) Recurrent seizures Status: Acute (12) Seizure Status: Acute (13) Seizure Status: Acute (14) Thrombocytopenia Status: Chronic (15) Tobacco abuse Status: Chronic (16) Tongue laceration Status: Acute (17) Tremor Status: Acute Medications Current Inpatient Medications Medications (Trade) Dose Ordered Sig/Rica Route Start Time Stop Time Status Last Admin Dose Admin Diltiazem HCl (Cardizem Cd Cap) 120 mg QAM PO 12/20/17 09:00 01/19/18 08:59 12/31/17 07:48 120 MG Folic Acid (Folvite Tab) 1 mg QAM PO 12/20/17 09:00 01/19/18 08:59 12/31/17 07:49 1 MG Levetiracetam (Keppra Tab) 1,000 mg Q12 PO 12/19/17 21:00 01/18/18 20:59 12/31/17 07:49 1,000 MG Potassium Chloride (Klor-Con Tab) 20 meq QAM PO 12/23/17 09:00 01/22/18 08:59 12/31/17 07:49 20 MEQ Thiamine HCl (Vitamin B-1 Tab) 300 mg QAM PO 12/24/17 10:00 01/23/18 09:59 12/31/17 07:49 300 MG Olanzapine (Zyprexa Tab) 20 mg HS PO 12/24/17 21:00 01/20/18 10:59 12/30/17 21:37 20 MG Acetaminophen (Tylenol Tab) 325 mg Q6H PRN PO 12/26/17 23:15 01/25/18 23:14 Phenobarbital (Phenobarbital Tab) 15 mg Q6 PO 12/27/17 18:00 01/23/18 11:59 12/31/17 11:59 15 MG Clonidine HCl (Catapres Tab) 0.1 mg DAILY PO 12/28/17 09:00 01/21/18 20:59 12/31/17 07:48 0.1 MG Albuterol/ Ipratropium (Duoneb) 3 ml Q2H PRN INH 12/29/17 05:00 01/28/18 04:59 Amoxicillin/ Clavulanate Potassium (Augmentin Tab) 875 mg BIDM PO 12/29/17 08:00 01/05/18 07:59 12/31/17 07:48 875 MG Lorazepam (Ativan Inj) 0.5 mg Q2H PRN IV 12/29/17 19:30 01/28/18 19:29 Lorazepam 0.5 mg/ Syringe 1 ml @ 1 mls/min Q2H PRN IV 12/29/17 19:45 01/28/18 19:44 12/31/17 04:48 1 MLS/MIN Objective Vital Signs Date Time Temp Pulse Resp B/P (MAP) Pulse Ox O2 Delivery O2 Flow Rate FiO2 12/31/17 08:00 Room Air 12/31/17 06:52 36.6 85 20 128/74 (92) 97 Room Air 12/31/17 00:00 Room Air 12/30/17 20:00 Room Air 12/30/17 18:43 36.8 99 18 116/83 (94) 97 Room Air Physical Exam General Appearance: no apparent distress Neurologic/Psychiatric: + depressed affect, + disoriented, + pertinent finding (intermittently agitated/anxious) Assessment and Plan ALCOHOL INTOXICATION/POLYSUBSTANCE ABUSE 12/31 - will try to continue with the phenobarbital taper, we can decrease in AM 01/01 - continue Augmentin because of possible aspiration - switched IV Ativan to PO 12/30 - required an extra dose of IV phenobarbital - continue 16.2 phenobarb q6 12/29 - continue phenobarbital dose; will taper on 12/30 - continue clonidine - speech evaluation pending - Augmentin ordered due to possible aspiration, will need to recheck CXR in 1-2 days 12/28 - more awake/alert today - now on phenobarbital 16.2mg [id number] - clonidine decreased to 0.1mg 12/27 - continue the phenobarbital taper - will decrease dose to 16.2mg q6 hours 12/26 - continue phenobarbital taper - likely brain damage from alcohol abuse; gait disturbance, confusion/ disorientation 12/25 - appreciate critical care team input - at this point he'll be on a phenobarbital taper - current dose is 32.4 mg PO q6 - will taper by 16.2mg q2 days, then decrease frequency to q8 and q12, then daily, then stop requiring high-dose phenobarbital treatment episodes of outburst with agitation , profanity and combativeness dose changed to PRN Presented with acute agitation and combativeness secondary to alcohol withdrawal History of chronic alcohol intoxication/abuse Multiple admissions/ER visits in the past with similar symptom Presents with intoxicated status blood alcohol level more than 380; with positive marijuana Critical care consulted, appreciate input CONFUSION/DELIRIUM/METABOLIC ENCEPHALOPATHY DUE TO ALCOHOL INTOXICATION / POSSIBLE WERNICKE'S ENCEPHALOPATHY Due to alcohol abuse/intoxication CT head without contrast shows no evidence of acute CVA Continue for thiamine and folate SEIZURE LIKE ACTIVITY VS ALCOHOL WITHDRAWAL SEIZURE - monitor Mg and continue withdrawal protocol with phenobarbital Patient reports of seizure Did not have any witnessed seizure episode Very hard to confirm a true seizure episode, as patient was not able to give any good history Has been on Keppra-questionable medication compliance Continued with Keppra 1000 mg twice daily Ordered for seizure precaution Neuro evaluation requested-appreciate input Recommend to continue with Keppra Patient's lot of the neurological symptoms possibly secondary to alcohol abuse intoxication HYPONATREMIA CHRONIC Appreciate nephrology evaluation Due to alcohol abuse Sodium level normalized IV fluids discontinued Follow PRP HYPOKALEMIA ordered for oral potassium tablet Repeat PRP TRANSAMINITIS AST greater than ALT With elevated alkaline phosphatase Due to alcoholic liver disease/hepatitis Right upper quadrant ultrasound Shows hepatic steatosis No evidence of gallbladder disease GI evaluation appreciated CT abdomen pelvis: Shows severely steatotic liver, no splenomegaly HISTORY OF PAF/A. FIB Continue with diltiazem Not a candidate for chronic anticoagulation secondary to alcohol intoxication/ abuse/high fall risk SIGNIFICANT THROMBOCYTOPENIA Platelet count 28->20->31 secondary to alcoholic abuse Avoid all antiplatelet/anticoagulation No indication for platelet transfusion until platelet count drops below 10 or any evidence of active bleeding Follow CBC daily peripheral blood smear 1. NORMOCHROMIC/NORMOCYTIC RED BLOOD CELLS, UNREMARKABLE LEUKOCYTES, AND MARKEDLY DECREASED NUMBERS OF PLATELETS ARE SEEN. 2. PLATELET CLUMPING IS NOT PRESENT. 3. BLASTS AND SCHISTOCYTES ARE NOT SEEN. 4. THE CLINICAL HISTORY OF ALCOHOL USE IS NOTED. Strict fall precaution Ordered for bed alarm, chair alarm High bleeding risk due to fall secondary to severe thrombocytopenia FALL/AMBULATORY DYSFUNCTION Multiple bruise on extremities, secondary to fall Possible secondary to alcohol intoxication PT OT evaluation Fall precaution ITCHING SKIN RASH /CONCERN FOR POSSIBLE SCABIES : contact isolation topical solution CODE STATUS: Full code DVT prophylaxis: SCD and teds No pharmacological anticoagulation secondary to thrombocytopenia DISPOSITION: To be determined Patient will benefit from alcohol rehab Refused rehab in past Social service consulted for discharge planning PT OT evaluation requested
[2017-12-31 15:21] VITALS: BP 115/83; PULSE 88; TEMP 36.7; O2SAT 99
[2017-12-31] MEDS: ZYPREXA 20 MG PO SCH (21:35)
[2017-12-31 22:50] VITALS: BP 110/77; PULSE 91; TEMP 36.6; O2SAT 98
[2018-01-01] MEDS: PHENOBARBITAL 15 MG TAB PO SCH ×2 (05:32→12:03)
[2018-01-01 06:52] VITALS: BP 116/78; PULSE 87; TEMP 36.7; O2SAT 94
[2018-01-01] MEDS: AMOXICILLIN/CLAVULANATE TAB 875 MG TAB PO SCH ×2 (07:31→18:04)
[2018-01-01] MEDS: DILTIAZEM HCL 120 MG CAPCR PO SCH (07:32)
[2018-01-01] MEDS: THIAMINE HCL 100 MG TAB PO SCH (07:32)
[2018-01-01] MEDS: POTASSIUM CHLORIDE 20 MEQ TABCR PO SCH (07:32)
[2018-01-01] MEDS: LEVETIRACETAM 500 MG TAB PO SCH ×2 (07:32→20:48)
[2018-01-01] MEDS: CLONIDINE HCL 0.1 MG TAB PO SCH (07:32)
--- NOTE | 2018-01-01 13:22 | Progress Note ---
Subjective Date of Service: Jan 01, 2018. Subjective Pt evaluation today including: conversation w/ patient, physical exam, lab review, review of studies, review of inpatient medication list Saw/examined the patient in room 256 He's doing better today, more awake/alert Feeling fine today States he wants to go home soon Problem List Medical Problems: (1) Alcohol abuse Status: Chronic (2) Alcohol intoxication Status: Acute (3) Alcohol withdrawal Status: Acute (4) Alcohol withdrawal Status: Acute (5) Alcohol withdrawal Status: Acute (6) Dehydration Status: Acute (7) Dehydration Status: Acute (8) DTs (delirium tremens) Status: Acute (9) Hyponatremia Status: Acute (10) Multiple contusions Status: Acute (11) Recurrent seizures Status: Acute (12) Seizure Status: Acute (13) Seizure Status: Acute (14) Thrombocytopenia Status: Chronic (15) Tobacco abuse Status: Chronic (16) Tongue laceration Status: Acute (17) Tremor Status: Acute Review of Systems Constitutional: No fever, No chills Respiratory: No cough, No sputum Cardiac: No chest pain Musculoskeletal: No joint pain Medications Current Inpatient Medications Medications (Trade) Dose Ordered Sig/Rica Route Start Time Stop Time Status Last Admin Dose Admin Diltiazem HCl (Cardizem Cd Cap) 120 mg QAM PO 12/20/17 09:00 01/19/18 08:59 01/01/18 07:32 120 MG Folic Acid (Folvite Tab) 1 mg QAM PO 12/20/17 09:00 01/19/18 08:59 01/01/18 07:32 1 MG Levetiracetam (Keppra Tab) 1,000 mg Q12 PO 12/19/17 21:00 01/18/18 20:59 01/01/18 07:32 1,000 MG Potassium Chloride (Klor-Con Tab) 20 meq QAM PO 12/23/17 09:00 01/22/18 08:59 01/01/18 07:32 20 MEQ Thiamine HCl (Vitamin B-1 Tab) 300 mg QAM PO 12/24/17 10:00 01/23/18 09:59 01/01/18 07:32 300 MG Olanzapine (Zyprexa Tab) 20 mg HS PO 12/24/17 21:00 01/20/18 10:59 12/31/17 21:35 20 MG Acetaminophen (Tylenol Tab) 325 mg Q6H PRN PO 12/26/17 23:15 01/25/18 23:14 Clonidine HCl (Catapres Tab) 0.1 mg DAILY PO 12/28/17 09:00 01/21/18 20:59 01/01/18 07:32 0.1 MG Albuterol/ Ipratropium (Duoneb) 3 ml Q2H PRN INH 12/29/17 05:00 01/28/18 04:59 Amoxicillin/ Clavulanate Potassium (Augmentin Tab) 875 mg BIDM PO 12/29/17 08:00 01/05/18 07:59 01/01/18 07:31 875 MG Lorazepam (Ativan Tab) 1 mg Q6 PRN PO 12/31/17 12:45 01/30/18 12:44 Phenobarbital (Phenobarbital Tab) 8.1 mg Q6 PO 01/01/18 18:00 01/31/18 17:59 UNV Objective Vital Signs Date Time Temp Pulse Resp B/P (MAP) Pulse Ox O2 Delivery O2 Flow Rate FiO2 01/01/18 08:00 Room Air 01/01/18 06:52 36.7 87 19 116/78 (91) 94 Room Air 01/01/18 00:00 Room Air 12/31/17 22:50 36.6 91 18 110/77 (88) 98 Room Air 12/31/17 16:15 Room Air 12/31/17 15:21 36.7 88 18 115/83 (94) 99 Room Air Physical Exam General Appearance: no apparent distress Respiratory/Chest: lungs clear, normal breath sounds, no respiratory distress, no accessory muscle use Cardiovascular: regular rate, rhythm, no edema, no murmur Neurologic/Psychiatric: + pertinent finding (slurred speech, intermittently disoriented) Assessment and Plan ALCOHOL INTOXICATION/POLYSUBSTANCE ABUSE 01/01 - now on phenobarbital 8.1mg [id number] - PO Ativan PRN - can likely be discharged soon - awaiting recommendations by case management on discharge recommendations 12/31 - will try to continue with the phenobarbital taper, we can decrease in AM 01/01 - continue Augmentin because of possible aspiration - switched IV Ativan to PO 12/30 - required an extra dose of IV phenobarbital - continue 16.2 phenobarb q6 12/29 - continue phenobarbital dose; will taper on 12/30 - continue clonidine - speech evaluation pending - Augmentin ordered due to possible aspiration, will need to recheck CXR in 1-2 days 12/28 - more awake/alert today - now on phenobarbital 16.2mg [id number] - clonidine decreased to 0.1mg 12/27 - continue the phenobarbital taper - will decrease dose to 16.2mg q6 hours 12/26 - continue phenobarbital taper - likely brain damage from alcohol abuse; gait disturbance, confusion/ disorientation 12/25 - appreciate critical care team input - at this point he'll be on a phenobarbital taper - current dose is 32.4 mg PO q6 - will taper by 16.2mg q2 days, then decrease frequency to q8 and q12, then daily, then stop requiring high-dose phenobarbital treatment episodes of outburst with agitation , profanity and combativeness dose changed to PRN Presented with acute agitation and combativeness secondary to alcohol withdrawal History of chronic alcohol intoxication/abuse Multiple admissions/ER visits in the past with similar symptom Presents with intoxicated status blood alcohol level more than 380; with positive marijuana Critical care consulted, appreciate input CONFUSION/DELIRIUM/METABOLIC ENCEPHALOPATHY DUE TO ALCOHOL INTOXICATION / POSSIBLE WERNICKE'S ENCEPHALOPATHY Due to alcohol abuse/intoxication CT head without contrast shows no evidence of acute CVA Continue for thiamine and folate SEIZURE LIKE ACTIVITY VS ALCOHOL WITHDRAWAL SEIZURE - monitor Mg and continue withdrawal protocol with phenobarbital Patient reports of seizure Did not have any witnessed seizure episode Very hard to confirm a true seizure episode, as patient was not able to give any good history Has been on Keppra-questionable medication compliance Continued with Keppra 1000 mg twice daily Ordered for seizure precaution Neuro evaluation requested-appreciate input Recommend to continue with Keppra Patient's lot of the neurological symptoms possibly secondary to alcohol abuse intoxication HYPONATREMIA CHRONIC Appreciate nephrology evaluation Due to alcohol abuse Sodium level normalized IV fluids discontinued Follow PRP HYPOKALEMIA ordered for oral potassium tablet Repeat PRP TRANSAMINITIS AST greater than ALT With elevated alkaline phosphatase Due to alcoholic liver disease/hepatitis Right upper quadrant ultrasound Shows hepatic steatosis No evidence of gallbladder disease GI evaluation appreciated CT abdomen pelvis: Shows severely steatotic liver, no splenomegaly HISTORY OF PAF/A. FIB Continue with diltiazem Not a candidate for chronic anticoagulation secondary to alcohol intoxication/ abuse/high fall risk SIGNIFICANT THROMBOCYTOPENIA Platelet count 28->20->31 secondary to alcoholic abuse Avoid all antiplatelet/anticoagulation No indication for platelet transfusion until platelet count drops below 10 or any evidence of active bleeding Follow CBC daily peripheral blood smear 1. NORMOCHROMIC/NORMOCYTIC RED BLOOD CELLS, UNREMARKABLE LEUKOCYTES, AND MARKEDLY DECREASED NUMBERS OF PLATELETS ARE SEEN. 2. PLATELET CLUMPING IS NOT PRESENT. 3. BLASTS AND SCHISTOCYTES ARE NOT SEEN. 4. THE CLINICAL HISTORY OF ALCOHOL USE IS NOTED. Strict fall precaution Ordered for bed alarm, chair alarm High bleeding risk due to fall secondary to severe thrombocytopenia FALL/AMBULATORY DYSFUNCTION Multiple bruise on extremities, secondary to fall Possible secondary to alcohol intoxication PT OT evaluation Fall precaution ITCHING SKIN RASH /CONCERN FOR POSSIBLE SCABIES : contact isolation topical solution CODE STATUS: Full code DVT prophylaxis: SCD and teds No pharmacological anticoagulation secondary to thrombocytopenia DISPOSITION: To be determined Patient will benefit from alcohol rehab Refused rehab in past Social service consulted for discharge planning PT OT evaluation requested
[2018-01-01 15:02] VITALS: BP 110/77; PULSE 70; TEMP 36.4; O2SAT 99
[2018-01-01 16:00] VITALS: O2SAT 99
[2018-01-01] MEDS: PHENOBARBITAL 32.4 MG TAB PO SCH (18:04)
[2018-01-01] MEDS: ZYPREXA 20 MG PO SCH (20:48)
[2018-01-01 23:00] VITALS: BP 124/84; PULSE 81; TEMP 36.5; O2SAT 98
[2018-01-02] VITALS (8 sets, daily range): BP systolic 101–123; BP diastolic 71–85; PULSE 81–101; TEMP 36.4–36.7; O2SAT 97–100
[2018-01-02] MEDS: PHENOBARBITAL 32.4 MG TAB PO SCH ×4 (00:01→17:50)
[2018-01-02] MEDS: LORAZEPAM 1 MG TAB PO PRN (02:35)
[2018-01-02] MEDS: LEVETIRACETAM 500 MG TAB PO SCH ×2 (07:32→21:25)
[2018-01-02] MEDS: THIAMINE HCL 100 MG TAB PO SCH (07:33)
[2018-01-02] MEDS: DILTIAZEM HCL 120 MG CAPCR PO SCH (07:33)
[2018-01-02] MEDS: CLONIDINE HCL 0.1 MG TAB PO SCH (07:33)
[2018-01-02] MEDS: AMOXICILLIN/CLAVULANATE TAB 875 MG TAB PO SCH ×2 (07:33→20:27)
[2018-01-02] MEDS: POTASSIUM CHLORIDE 20 MEQ TABCR PO SCH (09:35)
--- NOTE | 2018-01-02 14:49 | Progress Note ---
Medicine Progress Note Date & Time of Visit: Jan 02, 2018 at 14:36. Subjective Seen resting in bed, sitting at the edge of the bed sitter at the bedside Alert, oriented 3, pleasant, cooperative answers all questions appropriately Denies hallucinations, tremors, sweating States he feels fine overall and much improved Denies headache, dizziness, chest pain, shortness of breath, abdominal pain No other symptoms Objective Last 8 Hrs Date Time Temp Pulse Resp B/P (MAP) Pulse Ox O2 Delivery O2 Flow Rate FiO2 01/02/18 08:00 98 Room Air 01/02/18 07:22 36.7 82 18 101/71 (81) 98 Room Air Physical Exam: General-oriented 3, not in distress, speaking in sentences, no accessory muscle use Head- atraumatic Eyes- PERRL, EOMI, anicteric ENT- oropharynx clear Neck- supple, no JVD, no adenopathy, no thyromegaly Lungs- clear to auscultation bilaterally Heart-normal rate, regular rhythm; no murmur, no gallop, no rub appreciated Abdomen- normal bowel sounds, soft, nontender Extremities- no pretibial edema, no calf tenderness; peripheral pulses intact Neuro- alert, oriented x 3; no gross focal neurologic deficits Skin- warm & dry Assessment & Plan BREAKTHROUGH SEIZURES POSSIBLY FROM UNDERLYING SEIZURE DISORDER VS ALCOHOL WITHDRAWAL SEIZURE Neurology consulted Dr. Choi Recommend to continue usual Keppra dose Management of alcohol withdrawal noted below No recurrence of seizures while admitted will need to follow-up with neurologist closely as an outpatient patient ALCOHOL WITHDRAWAL ALCOHOL INTOXICATION/POLYSUBSTANCE ABUSE Significant improvement with phenobarbital tapering course Follow instructions for phenobarbital taper by Dr. Cervantes, patient needs to take at least 4 more days Continue olanzapine daily at night discontinue clonidine This patient's blood pressure is already in the lower side Patient will follow-up with primary care physician Sunday, January 07, 2018 Advised to continue abstaining from alcohol, discussed all the risks involved including risk for seizures, etc. Patient verbalized understanding and agreement to abstaining from alcohol usage CONFUSION/DELIRIUM/METABOLIC ENCEPHALOPATHY DUE TO ALCOHOL INTOXICATION, alcohol withdrawal Due to alcohol abuse/intoxication CT head without contrast shows no evidence of acute CVA Continue for thiamine and folate HYPONATREMIA CHRONIC Nephrology consulted Due to alcohol abuse Sodium level normalized IV fluids discontinued Follow PRP HYPOKALEMIA ordered for oral potassium tablet Repeat PRP TRANSAMINITIS AST greater than ALT With elevated alkaline phosphatase Due to alcoholic liver disease/hepatitis Right upper quadrant ultrasound Shows hepatic steatosis No evidence of gallbladder disease CT abdomen pelvis: Shows severely steatotic liver, no splenomegaly GI service consulted follow-up LFTs as an outpatient HISTORY OF PAF/A. FIB Continue with diltiazem Not a candidate for chronic anticoagulation secondary to alcohol intoxication/ abuse/high fall risk SIGNIFICANT THROMBOCYTOPENIA Platelet count 28->20->31 secondary to alcoholic abuse peripheral blood smear 1. NORMOCHROMIC/NORMOCYTIC RED BLOOD CELLS, UNREMARKABLE LEUKOCYTES, AND MARKEDLY DECREASED NUMBERS OF PLATELETS ARE SEEN. 2. PLATELET CLUMPING IS NOT PRESENT. 3. BLASTS AND SCHISTOCYTES ARE NOT SEEN. 4. THE CLINICAL HISTORY OF ALCOHOL USE IS NOTED. --Platelet level normalized FALL/AMBULATORY DYSFUNCTION Multiple bruise on extremities, secondary to fall Possible secondary to alcohol intoxication PT/OT consulted patient ambulating with no problems ITCHING SKIN RASH /CONCERN FOR POSSIBLE SCABIES : Permethrin cream given CODE STATUS: Full code DISPOSITION: Patient declined inpatient alcohol rehab Case management involved Patient to be discharged home with home health services Follow-up with PCP on Sunday, January 07, 2018 follow-up with neurologist in 1-2 weeks Current Inpatient Medications: Current Inpatient Medications Medications (Trade) Dose Ordered Sig/Rica Route Start Time Stop Time Status Last Admin Dose Admin Diltiazem HCl (Cardizem Cd Cap) 120 mg QAM PO 12/20/17 09:00 01/19/18 08:59 01/02/18 07:33 120 MG Folic Acid (Folvite Tab) 1 mg QAM PO 12/20/17 09:00 01/19/18 08:59 01/02/18 07:32 1 MG Levetiracetam (Keppra Tab) 1,000 mg Q12 PO 12/19/17 21:00 01/18/18 20:59 01/02/18 07:32 1,000 MG Potassium Chloride (Klor-Con Tab) 20 meq QAM PO 12/23/17 09:00 01/22/18 08:59 01/02/18 09:35 20 MEQ Thiamine HCl (Vitamin B-1 Tab) 300 mg QAM PO 12/24/17 10:00 01/23/18 09:59 01/02/18 07:33 300 MG Olanzapine (Zyprexa Tab) 20 mg HS PO 12/24/17 21:00 01/20/18 10:59 01/01/18 20:48 20 MG Acetaminophen (Tylenol Tab) 325 mg Q6H PRN PO 12/26/17 23:15 01/25/18 23:14 Clonidine HCl (Catapres Tab) 0.1 mg DAILY PO 12/28/17 09:00 01/21/18 20:59 01/02/18 07:33 0.1 MG Albuterol/ Ipratropium (Duoneb) 3 ml Q2H PRN INH 12/29/17 05:00 01/28/18 04:59 Amoxicillin/ Clavulanate Potassium (Augmentin Tab) 875 mg BIDM PO 12/29/17 08:00 01/05/18 07:59 01/02/18 07:33 875 MG Lorazepam (Ativan Tab) 1 mg Q6 PRN PO 12/31/17 12:45 01/30/18 12:44 01/02/18 02:35 1 MG Phenobarbital (Phenobarbital Tab) 8.1 mg Q6 PO 01/01/18 18:00 01/31/18 17:59 01/02/18 11:52 8.1 MG
[2018-01-02] MEDS ORDERED: AMOX1TAB43 PO (14:56)
[2018-01-02] MEDS ORDERED: Phenobarbital PO (14:56)
[2018-01-02] MEDS ORDERED: ZYP20 PO (14:56)
[2018-01-02] MEDS ORDERED: MCRK20 PO (14:56)
--- NOTE | 2018-01-02 15:05 | Discharge Instructions ---
Discharge Instructions Date of Service Jan 02, 2018. Admission Reason for Admission: Alcohol Intoxication, Recurrent Seizures Discharge Discharge Diagnosis / Problem: Alcohol intoxication, recurrent seizures Discharge Goals Goal(s): Diagnostic testing, Therapeutic intervention Activity Recommendations Activity Limitations: as noted below (No heavy exertion until reevaluated by the primary care physician) Lifting Limitations: gradually increase as tolerated Exercise/Sports Limitations: until after follow-up appointment Driving or Machine Use: NO DRIVING, USE OF MACHINERY NO DRIVING, USE OF MACHINERIES, SWIMMING OR BATHING Instructions / Follow-Up Instructions / Follow-Up Please review your medication list very carefully and follow instructions carefully as well. If you have any questions were instructed about any of her medications, please call your primary care physician immediately. Call your primary care physician or return to the ER immediately if with worsening of symptoms. Call 911 immediately if with seizure recurrence. No driving, use of machines, bathing, swimming. Please follow-up with your primary care physician Dr. Bledsoe on Sunday, December at 230pm. Please follow-up with neurologist Dr. Choi in 2-3 weeks. Tel No. Current Hospital Diet Patient's current hospital diet: Low Fat Diet Discharge Diet Recommended Diet: AHA Diet (Heart Healthy) Procedures Procedures Performed: CT head, CT abdomen and pelvis, chest x-ray, ultrasound Pending Studies Studies pending at discharge: yes List of pending studies: Repeat blood work care of primary care physician on follow-up January 07, 2018 Medical Emergencies . Who to Call and When: Medical Emergencies: If at any time you feel your situation is an emergency, please call 911 immediately. . Non-Emergent Contact Non-Emergency issues call your: Primary Care Provider, Neurologist Call Non-Emergent contact if: you have a fever, you have any medication questions . . "Provider Documentation" section prepared by Agapito Leblanc. .
[2018-01-02] MEDS: ZYPREXA 20 MG PO SCH (21:25)
[2018-01-03] MEDS: PHENOBARBITAL 32.4 MG TAB PO SCH ×2 (01:07→06:33)
[2018-01-03 07:19] VITALS: BP 118/81; PULSE 94; TEMP 36.5; O2SAT 97
[2018-01-03 07:55] VITALS: O2SAT 97
[2018-01-03] MEDS: AMOXICILLIN/CLAVULANATE TAB 875 MG TAB PO SCH ×2 (08:37→17:14)
[2018-01-03] MEDS: DILTIAZEM HCL 120 MG CAPCR PO SCH (08:37)
[2018-01-03] MEDS: CLONIDINE HCL 0.1 MG TAB PO SCH (08:37)
[2018-01-03] MEDS: LEVETIRACETAM 500 MG TAB PO SCH ×2 (08:38→20:34)
[2018-01-03] MEDS: POTASSIUM CHLORIDE 20 MEQ TABCR PO SCH (08:38)
[2018-01-03] MEDS: THIAMINE HCL 100 MG TAB PO SCH (08:38)
--- NOTE | 2018-01-03 11:52 | Psychiatric Consultation ---
Consultation Date of Consultation Jan 03, 2018. Identifying Data 57 yo male admitted medically 12/19/17 with seizures likely in the setting of alcohol dependence/withdrawal. We are consulted to evaluate mental status. Information is gathered from the patient and the EHR. Chief Complaint "What do you want Susanna?". History of Present Illness 57 yo male with know, long standing alcohol dependence, who was admitted medically on 12/19 with seizures. The patient has been in the hospital for over 2 weeks, and discharge was planned yesterday, but when sister arrived to pick him up she reported that he was seeing pink on the keating, that wasn't there , and she was concerned about taking him home. At the time I see the patient he is sleeping with a 1:1 attendant at the bedside. He easily awakens to verbal. He is initially somewhat disoriented thinking that he is in an apt in [place], but given a few minutes, he is completely oriented. I review the reason for my visit, and his sisters concerns yesterday. He doesn't remember saying there was pink on the keating, and today denies any such experiences, as well as denying aud/vis hallucinations. when asked where he will go on discharge he says that he will go back to his hotel room that he believes is still paid up and look for "my useless brother Joey". He does not remember that he had been drinking prior to admission despite telling him his blood alcohol was over 300, "I must have been drunk.". He says that he feels "terrible" but will not/cannot specify how. He denies suicidal thoughts. I offer him assistance to work toward sobriety, but he angrily refuses both inpatient and outpatient substance use treatment. His only intervention toward sobriety is to say that since he doesn' t have money to buy alcohol, he won't drink. He becomes increasingly angry during the interview, swearing and being disrespectful, but is easily redirected. The interview ends when he refuses to answer more "stupid questions " Past Psychiatric History Current OP Treatment: no current treatment Allergies Allergies: Coded Allergies: Ibuprofen (Unverified Allergy, Unknown, FACIAL SWELLING, 12/19/17) Home Medications Scheduled Amoxicillin & Pot Clavulanate (Amoxicillin/Clavulanate P), 875 MG PO BIDM Diltiazem HCl (Diltiazem Cd), 120 MG PO QAM Folic Acid (Folic Acid), 1 MG PO QAM Levetiracetam (Keppra), 1,000 MG PO Q12 Olanzapine (Zyprexa), 20 MG PO HS Potassium Chloride (Klor-Con M20), 20 MEQ PO QAM Thiamine HCl (Vitamin B-1), 100 MG PO QAM [Phenobarbital], 4 MG PO UD Family History Diabetes mellitus FH: cancer MOTHER (pancreatic CA ) FH: heart disease FATHER ([place] age 68 ) Hypertension Smoking Use Smoking Status: Current Every Day Smoker Review of Systems Will not participate Examination Vital Signs Vital Signs Past 12 Hours Date Time Temp Pulse Resp B/P (MAP) Pulse Ox O2 Delivery O2 Flow Rate FiO2 01/03/18 07:55 97 Room Air 01/03/18 07:19 36.5 94 18 118/81 (93) 97 Room Air Mental Examination During interview pt is: uncooperative Appearance: appropriately dressed, appropriately groomed Eye contact is: poor Motor behavior is: no abnormal motor movements Speech: loud (angry) Affect: irritable Mood is: irritable Thought process: concrete Thought content: other (easily disoriented) Suicidal thought are: denied Homicidal thoughts are: denied Hallucinations: denies auditory, denies visual Cognition: other (all spheres impaired) Intelligence estimated to be: below average Insight: poor Judgement: poor Impression / Recommendations Impression 57 yo male with known alcohol dependence admitted with seizures. He is ready for discharge but sister offered concerns when he said that he was seeing pink on the keating. Unfortunately, there is little we have to offer this man, as he refuses all services and has no insight into his alcohol dependence or the downstream consequences. He likely has some Wernicke Korsakoff given the duration of his drinking and impaired memory/cognition and I would not be surprised if he needs a guardian in the future as his cognition deteriorates. From a psychiatric standpoint, I do not see any sign of a primary mental illness that would benefit from medications, and his episode of seeing pink where there was none can reasonably be seen in the setting of his chronic alcohol dependence and brain impairment. There is no reason, psychiatrically, for him to remain in the hospital. Inventory Assets Strengths: Has family Risk Factors Assessment Male: Yes : Yes /single/: Yes Higher / Fall in social status: No Health problems: Yes Mental Health Diagnoses: No Substance use disorders: Yes Protective Factors Assessment : No Responsible for young children: No Employed: No Supportive family: Yes Recommendations (1) Alcohol dependence 01/03 - See discussion above. Dr. Brenda Valero has personally been involved in the review of this case and development of these recommendations.
[2018-01-03] MEDS: PHENOBARBITAL ELIX 20 MG/5 ML PO SCH ×3 (12:42→23:45)
[2018-01-03] MEDS ORDERED: PHENOBARBITAL ELIX 20 MG/5 ML PO SCH (13:00)
[2018-01-03] MEDS ORDERED: PHENOBARBITAL 15 MG TAB PO SCH (13:00)
[2018-01-03] MEDS: LORAZEPAM 1 MG TAB PO PRN (14:09)
[2018-01-03 14:40] VITALS: BP 107/73; PULSE 74; TEMP 36.7; O2SAT 95
--- NOTE | 2018-01-03 15:05 | Neurology Consultation ---
Neurology Consultation Date of Consultation: Jan 03, 2018. Attending Physician: Agapito Leblanc MD Primary Care Physician: Misha Beltre M.D. (MEDICAL) Reason for Consultation: confusion History of Present Illness Source: patient Stuart is 57 years old who he was seen on admission by Dr Choi and is known for previous admission for EtoH abuse and withdrawal seizures. He was also seen in early November for recurrent seizures. He has paroxysmal afib, seizure disorder- likely EtOH related, tobacco abuse, chronic thrombocytopenia. He was taking 1000 mg BID but he claims to have had 25 seizure and multiple falls. He states he only drinks 2 beers a day but his presenting level was 357 and was positive for marijuana. He lives with his brother who is also apparently has a history of EtOH abuse. We were reconsulted because he has been say inappropriate things regarding his occupation and where he lives that are known not to be true. denies headache, CP , SOB, abdominal pain, weakness, numbness tingling, N, V. Past Medical/Surgical History Medical Problems: (1) Alcohol abuse Status: Chronic (2) Alcohol intoxication Status: Acute (3) Alcohol withdrawal Status: Acute (4) Alcohol withdrawal Status: Acute (5) Alcohol withdrawal Status: Acute (6) Dehydration Status: Acute (7) Dehydration Status: Acute (8) DTs (delirium tremens) Status: Acute (9) Hyponatremia Status: Acute (10) Multiple contusions Status: Acute (11) Recurrent seizures Status: Acute (12) Seizure Status: Acute (13) Seizure Status: Acute (14) Thrombocytopenia Status: Chronic (15) Tobacco abuse Status: Chronic (16) Tongue laceration Status: Acute (17) Tremor Status: Acute Social History Smoking Status: Former smoker Smokeless Tobacco Use: Yes Alcohol Use: heavy Drug Use: marijuana, other (pt denies drug use) Marital Status: Housing Status: lives alone, lives with family Occupation Status: unemployed Allergies Coded Allergies: Ibuprofen (Unverified Allergy, Unknown, FACIAL SWELLING, 12/19/17) Current Inpatient Medications Current Inpatient Medications Medications (Trade) Dose Ordered Sig/Rica Route Start Time Stop Time Status Last Admin Dose Admin Diltiazem HCl (Cardizem Cd Cap) 120 mg QAM PO 12/20/17 09:00 01/19/18 08:59 01/03/18 08:37 120 MG Folic Acid (Folvite Tab) 1 mg QAM PO 12/20/17 09:00 01/19/18 08:59 01/03/18 08:38 1 MG Levetiracetam (Keppra Tab) 1,000 mg Q12 PO 12/19/17 21:00 01/18/18 20:59 01/03/18 08:38 1,000 MG Potassium Chloride (Klor-Con Tab) 20 meq QAM PO 12/23/17 09:00 01/22/18 08:59 01/03/18 08:38 20 MEQ Thiamine HCl (Vitamin B-1 Tab) 300 mg QAM PO 12/24/17 10:00 01/23/18 09:59 01/03/18 08:38 300 MG Olanzapine (Zyprexa Tab) 20 mg HS PO 12/24/17 21:00 01/20/18 10:59 01/02/18 21:25 20 MG Acetaminophen (Tylenol Tab) 325 mg Q6H PRN PO 12/26/17 23:15 01/25/18 23:14 Clonidine HCl (Catapres Tab) 0.1 mg DAILY PO 12/28/17 09:00 01/21/18 20:59 01/03/18 08:37 0.1 MG Albuterol/ Ipratropium (Duoneb) 3 ml Q2H PRN INH 12/29/17 05:00 01/28/18 04:59 Amoxicillin/ Clavulanate Potassium (Augmentin Tab) 875 mg BIDM PO 12/29/17 08:00 01/05/18 07:59 01/03/18 08:37 875 MG Lorazepam (Ativan Tab) 1 mg Q6 PRN PO 12/31/17 12:45 01/30/18 12:44 01/03/18 14:09 1 MG Phenobarbital (Phenobarbital Elix) 4 mg Q6H PO 01/03/18 12:00 01/05/18 06:01 01/03/18 12:42 4 MG Phenobarbital (Phenobarbital Elix) 4 mg Q12H PO 01/05/18 18:00 01/07/18 06:01 Physical Exam Vital Signs (Past 24 Hrs): Date Time Temp Pulse Resp B/P (MAP) Pulse Ox O2 Delivery O2 Flow Rate FiO2 01/03/18 14:40 36.7 74 18 107/73 (84) 95 Room Air 01/03/18 07:55 97 Room Air 01/03/18 07:19 36.5 94 18 118/81 (93) 97 Room Air 01/02/18 22:53 36.5 98 16 116/78 (91) 97 Room Air 01/02/18 20:05 98 Room Air 01/02/18 19:07 36.6 101 16 123/85 (98) 99 Room Air 01/02/18 15:24 36.4 81 20 122/81 (95) 100 Room Air 01/02/18 15:23 36.7 82 18 98 Room Air Physical Exam: Constitutional: appearance nourished, healthy and normal Ears, Nose, Mouth and Throat: mucous membranes moist, no injection and skin normal, eyes normal Cardiovascular: normal S-1 and S-2 and regular rate and rhythm Respiratory: clear to auscultation (CTA) and no rales, rhonchi or wheeze Musculoskeletal: no peripheral edema and good distal pulses Skin: no stigmata of neurocutaneous disease noted and normal and intact Eyes: extraocular muscles intact (EOMI) and pupils equal, round and reactive to light (PERRL) NEUROLOGIC EXAMINATION: Mental status: Alert and interactive Oriented to full date and location, 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 Oriented to person, knows he is in [facility], lives in [place] but states he lives alone. states he only drinks occasionally Speech fluent with no evidence of aphasia Cranial Nerves smile eye brow raise symmetric Coordination: finger to nose without bi pass Gait/Stance: Posture normal. Gait normal: with steady with steps, base, turning, tandem gait. Motor: Negative for pronator drift of out stretched arms with eyes closed. 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 psychiatry - concerned for Wernicke encephalopathy which is likely. But they find no evidence of psychiatric process. 2. there is no self awareness of his EtOH abuse 3. going back to live with his brother he will likely fall back into the same destructive habits 4. social group worker may need to get involve to evaluate living arrangements and if any intervention can be offered 5. he has refused services in the past 6. neuropsych testing would be helpful but not done in the hospital 7. family intervention may be an option 8. MRI with and without -confusion 9. RPR, thiamine level,keppra level 10. EEG I have seen and discussed above patient with Dr Adelaida Mckeon, neurology Pt seen and examined, hx reviewed as well as Dr Choi's note from this admission. We are asked to consult as pt has improved but remains intermittently confused. Pt became agitated with my questioning and participated with only minimal exam. Pt was asleep (approx 445pm) which may have contributed. HIs mentation was mildly slow, language unremarkable. He denies diplopia.While oriented he insists that the [employer] who is a one on one, is a former female friend, with a different name. He indicates that he and she could go together out for a ride on a motorcycle. At the same time he recalls that some other "wing-nut" had come in to ask him similar questions and became agitated, although did appear to be settling down when we left the room. Also speaks of Drs. ordering tests to take advantage of his insurance. I suspect the pt has an underlying encephalopathy, possibly WErnickes-Korsakoff, or simply alcohol-related dementia. Rec MRI brain, labs, including rpr, thiamine ( although pt has bee supplemented). EEG to eval for slowing. I believe we may need to get a neuropsych consult to determine disposition/competency. Will also need to determine if irritability has been ongoing. It could be related to Keppra use. Hx in that regard of whether there are true sz is difficulty as pt reports mult sz/day which do not sound like sz. Dr Choi will follow with you. SONYA Mckeon MD
--- NOTE | 2018-01-03 20:33 | Progress Note ---
Medicine Progress Note Date & Time of Visit: Jan 03, 2018 at 20:24. Subjective Seen with sitter and oriented the bedside Calm cooperative comfortable Oriented 2 Answers most questions appropriately, occasionally repetitive Denies headache, dizziness, chest with no shortness of breath, abdominal pain Denies tremors, anxiety, hallucinations States he feels well overall Objective Last 8 Hrs Date Time Temp Pulse Resp B/P (MAP) Pulse Ox O2 Delivery O2 Flow Rate FiO2 01/03/18 16:00 Room Air 01/03/18 14:40 36.7 74 18 107/73 (84) 95 Room Air Physical Exam: General-oriented 3, not in distress, speaking in sentences, no accessory muscle use Eyes- anicteric ENT- oropharynx clear Neck- supple, no JVD Lungs- clear breath sounds bilaterally no rales wheezes Heart-normal rate, regular rhythm; no murmurs Abdomen- normal bowel sounds, soft, nontender Extremities- no pretibial edema, no calf tenderness Neuro- alert, oriented x 3; no gross focal neurologic deficits Psych- calm, normal affect, not stating delusional statements at the time of interview Skin- warm & dry Laboratory Results: Last 24 Hours Test 01/03/18 16:13 01/03/18 16:52 Assessment & Plan BREAKTHROUGH SEIZURES POSSIBLY FROM UNDERLYING SEIZURE DISORDER VS ALCOHOL WITHDRAWAL SEIZURE Neurology consulted Dr. Choi Recommend to continue usual Keppra dose Management of alcohol withdrawal noted below No recurrence of seizures while admitted will need to follow-up with neurologist closely as an outpatient patient ALCOHOL WITHDRAWAL ALCOHOL INTOXICATION/POLYSUBSTANCE ABUSE Significant improvement with phenobarbital tapering course Follow instructions for phenobarbital taper by Dr. Cervantes, patient needs to take at least 4 more days Continue olanzapine daily at night discontinue clonidine This patient's blood pressure is already in the lower side Patient will follow-up with primary care physician Sunday, January 07, 2018 Advised to continue abstaining from alcohol, discussed all the risks involved including risk for seizures, etc. 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, repeatedly, cannot be reoriented or reassured Patient's sister at bedside, states patient has been forgetful and has behavioral outbursts at home as well, occasionally being statements that does not make sense Discharge canceled, psychiatry and neurology service consulted for delusions and cognitive impairment Patient became very agitated and combative with the nurse that he needs to stay in the hospital, security summoned Spent at least an hour with the patient and his sister Ultimately the patient agreed with the plan of care, sister also verbalized agreement January 03, 2018 patient seems to be calmer, oriented 3 Answers most questions appropriately Discussed with psychiatry service-does not recommend inpatient psych treatment at this time, patient may be observed as an outpatient, and if symptoms worsen, may need to be readmitted Discussed with neurology service, brain MRI and EEG ordered Barring any major findings to MRI or EEG, anticipate discharge to home tomorrow , discussed with patient's sister Melodie at length, she is agreeable and comfortable with plan of care HYPONATREMIA CHRONIC Nephrology consulted Due to alcohol abuse Sodium level normalized IV fluids discontinued Follow PRP HYPOKALEMIA Resolved TRANSAMINITIS AST greater than ALT With elevated alkaline phosphatase Due to alcoholic liver disease/hepatitis Right upper quadrant ultrasound Shows hepatic steatosis No evidence of gallbladder disease CT abdomen pelvis: Shows severely steatotic liver, no splenomegaly GI service consulted follow-up LFTs as an outpatient HISTORY OF PAF/A. FIB Continue with diltiazem Not a candidate for chronic anticoagulation secondary to alcohol intoxication/ abuse/high fall risk SIGNIFICANT THROMBOCYTOPENIA Platelet count 28->20->31 secondary to alcoholic abuse peripheral blood smear 1. NORMOCHROMIC/NORMOCYTIC RED BLOOD CELLS, UNREMARKABLE LEUKOCYTES, AND MARKEDLY DECREASED NUMBERS OF PLATELETS ARE SEEN. 2. PLATELET CLUMPING IS NOT PRESENT. 3. BLASTS AND SCHISTOCYTES ARE NOT SEEN. 4. THE CLINICAL HISTORY OF ALCOHOL USE IS NOTED. --Platelet level normalized FALL/AMBULATORY DYSFUNCTION Multiple bruise on extremities, secondary to fall Possible secondary to alcohol intoxication PT/OT consulted patient ambulating with no problems ITCHING SKIN RASH /CONCERN FOR POSSIBLE SCABIES : Permethrin cream given CODE STATUS: Full code DISPOSITION: Patient declined inpatient alcohol rehab Case management involved Barring any major findings to MRI or EEG, anticipate discharge to home tomorrow , discussed with patient's sister Melodie at length, she is agreeable and comfortable with plan of care Follow-up with PCP on Sunday, January 07, 2018 follow-up with neurologist in 1-2 weeks Current Inpatient Medications: Current Inpatient Medications Medications (Trade) Dose Ordered Sig/Rica Route Start Time Stop Time Status Last Admin Dose Admin Diltiazem HCl (Cardizem Cd Cap) 120 mg QAM PO 12/20/17 09:00 01/19/18 08:59 01/03/18 08:37 120 MG Folic Acid (Folvite Tab) 1 mg QAM PO 12/20/17 09:00 01/19/18 08:59 01/03/18 08:38 1 MG Levetiracetam (Keppra Tab) 1,000 mg Q12 PO 12/19/17 21:00 01/18/18 20:59 01/03/18 08:38 1,000 MG Potassium Chloride (Klor-Con Tab) 20 meq QAM PO 12/23/17 09:00 01/22/18 08:59 01/03/18 08:38 20 MEQ Thiamine HCl (Vitamin B-1 Tab) 300 mg QAM PO 12/24/17 10:00 01/23/18 09:59 01/03/18 08:38 300 MG Olanzapine (Zyprexa Tab) 20 mg HS PO 12/24/17 21:00 01/20/18 10:59 01/02/18 21:25 20 MG Acetaminophen (Tylenol Tab) 325 mg Q6H PRN PO 12/26/17 23:15 01/25/18 23:14 Clonidine HCl (Catapres Tab) 0.1 mg DAILY PO 12/28/17 09:00 01/21/18 20:59 01/03/18 08:37 0.1 MG Albuterol/ Ipratropium (Duoneb) 3 ml Q2H PRN INH 12/29/17 05:00 01/28/18 04:59 Amoxicillin/ Clavulanate Potassium (Augmentin Tab) 875 mg BIDM PO 12/29/17 08:00 01/05/18 07:59 01/03/18 17:14 875 MG Lorazepam (Ativan Tab) 1 mg Q6 PRN PO 12/31/17 12:45 01/30/18 12:44 01/03/18 14:09 1 MG Phenobarbital (Phenobarbital Elix) 4 mg Q6H PO 01/03/18 12:00 01/05/18 06:01 01/03/18 17:14 4 MG Phenobarbital (Phenobarbital Elix) 4 mg Q12H PO 01/05/18 18:00 01/07/18 06:01
[2018-01-03] MEDS: ZYPREXA 20 MG PO SCH (20:34)
[2018-01-04] MEDS ORDERED: PHENOBARBITAL ELIX 20 MG/5 ML PO SCH
[2018-01-04] MEDS: PHENOBARBITAL ELIX 20 MG/5 ML PO SCH ×2 (06:12→12:02)
[2018-01-04 06:53] VITALS: BP 121/81; PULSE 72; TEMP 36.4; O2SAT 98
[2018-01-04] MEDS: DILTIAZEM HCL 120 MG CAPCR PO SCH (08:58)
[2018-01-04] MEDS: AMOXICILLIN/CLAVULANATE TAB 875 MG TAB PO SCH (08:58)
[2018-01-04] MEDS: LEVETIRACETAM 500 MG TAB PO SCH (08:59)
[2018-01-04] MEDS: CLONIDINE HCL 0.1 MG TAB PO SCH (08:59)
[2018-01-04] MEDS: POTASSIUM CHLORIDE 20 MEQ TABCR PO SCH (09:00)
[2018-01-04] MEDS: THIAMINE HCL 100 MG TAB PO SCH (10:26)
--- NOTE | 2018-01-04 14:11 | ELECTROENCEPHALOGRAPH REPORT ---
REQUESTING PHYSICIAN: Adelaida Mckeon MD CLINICAL DIAGNOSIS: Alcoholism with confabulation, confusion, agitation, question Korsakoff psychosis. ELECTROENCEPHALOGRAM DIAGNOSIS: Essentially normal during wakefulness. DESCRIPTION OF TRACING: This EEG was done as a bedside recording. Patient is described as cooperative and calm. Video analysis confirms this conclusion and there are very few or no muscle movement artifacts seen on video or on EEG. Photic stimulation was performed. Drowsiness and light sleep were not recorded. Hyperventilation was not performed. Under these conditions, there is evidence for a background rhythm in the alpha range of up to 10 Hz of maximum frequency and 30 microvolts of maximum amplitude. This is maximum in posterior head regions and bilaterally symmetrical. Polymorphic mid frequency theta activity is seen over all head regions without clear focal or regional predominance. Anterior head region maximal bilaterally symmetrical low voltage fast activity in the beta range is present. At no time during the waking tracing was there evidence for potentially epileptogenic activity in the form of polyspike or spike wave bursts, focal sharp waves, or focal spikes. There are in addition no abnormal discharges in the form of triphasic waves or other indicators of a potential underlying hepatic encephalopathy. Photic stimulation provoked some modest driving response without a photomyogenic or photoparoxysmal component. INTERPRETATION: This EEG is essentially normal during wakefulness without evidence for focal or generalized encephalopathy and without evidence for potentially epileptogenic activity.
--- NOTE | 2018-01-04 14:51 | Neurology Progress Notes ---
Neurology Progress Note Date of Service Jan 04, 2018. Lucrecia Davidson is 57 years old who he was seen on admission by Dr Choi and is known for previous admission for EtoH abuse and withdrawal seizures. He was also seen in early November for recurrent seizures. He has paroxysmal afib, seizure disorder- likely EtOH related, tobacco abuse, chronic thrombocytopenia. He was taking 1000 mg BID but he claims to have had 25 seizure and multiple falls. He states he only drinks 2 beers a day but his presenting level was 357 and was positive for marijuana. He lives with his brother who is also apparently has a history of EtOH abuse. We were reconsulted because he has been say inappropriate things regarding his occupation and where he lives that are known not to be true. Today he has no complaints and just wants to go home. Discussed no on going seizures. denies headache, CP, SOB, abdominal pain, weakness, numbness tingling , N, V. Objective Date Time Temp Pulse Resp B/P (MAP) Pulse Ox O2 Delivery O2 Flow Rate FiO2 01/04/18 07:33 Room Air 01/04/18 06:53 36.4 72 18 121/81 (94) 98 Room Air 01/03/18 16:00 Room Air Last 24 Hours Test 01/03/18 16:52 01/04/18 06:29 Rapid Plasma Reagin NONREACTIVE Imaging: This EEG is essentially normal during wakefulness without evidence for focal or generalized encephalopathy and without evidence for potentially epileptogenic activity. Exam: Gen: alert NAD lungs: normal respiratory effort CV RRR walking in room tandem gait knows he is in [facility], knows where he lives Current Inpatient Medications Medications (Trade) Dose Ordered Sig/Rica Route Start Time Stop Time Status Last Admin Dose Admin Diltiazem HCl (Cardizem Cd Cap) 120 mg QAM PO 12/20/17 09:00 01/19/18 08:59 01/04/18 08:58 120 MG Folic Acid (Folvite Tab) 1 mg QAM PO 12/20/17 09:00 01/19/18 08:59 01/04/18 08:59 1 MG Levetiracetam (Keppra Tab) 1,000 mg Q12 PO 12/19/17 21:00 01/18/18 20:59 01/04/18 08:59 1,000 MG Potassium Chloride (Klor-Con Tab) 20 meq QAM PO 12/23/17 09:00 01/22/18 08:59 01/04/18 09:00 20 MEQ Thiamine HCl (Vitamin B-1 Tab) 300 mg QAM PO 12/24/17 10:00 01/23/18 09:59 01/04/18 10:26 300 MG Olanzapine (Zyprexa Tab) 20 mg HS PO 12/24/17 21:00 01/20/18 10:59 01/03/18 20:34 20 MG Acetaminophen (Tylenol Tab) 325 mg Q6H PRN PO 12/26/17 23:15 01/25/18 23:14 Clonidine HCl (Catapres Tab) 0.1 mg DAILY PO 12/28/17 09:00 01/21/18 20:59 01/04/18 08:59 0.1 MG Albuterol/ Ipratropium (Duoneb) 3 ml Q2H PRN INH 12/29/17 05:00 01/28/18 04:59 Amoxicillin/ Clavulanate Potassium (Augmentin Tab) 875 mg BIDM PO 12/29/17 08:00 01/05/18 07:59 01/04/18 08:58 875 MG Lorazepam (Ativan Tab) 1 mg Q6 PRN PO 12/31/17 12:45 01/30/18 12:44 01/03/18 14:09 1 MG Phenobarbital (Phenobarbital Elix) 4 mg Q6H PO 01/03/18 12:00 01/05/18 06:01 01/04/18 12:02 4 MG Phenobarbital (Phenobarbital Elix) 4 mg Q12H PO 01/05/18 18:00 01/07/18 06:01 Impression 57 year old male with confusion and known usp EtOH abuse Plan 1. psychiatry - concerned for Wernicke encephalopathy which is likely. But they find no evidence of psychiatric process. 2. there is no self awareness of his EtOH abuse 3. going back to live with his brother he will likely fall back into the same destructive habits 4. pediatric social worker may need to get involve to evaluate living arrangements and if any intervention can be offered 5. he has refused services in the past 6. neuropsych testing would be helpful but not done in the hospital 7. family intervention may be an option 8. MRI with and without -confusion- still pending 9. RPR-negative, thiamine level,keppra level both pending 10. EEG- normal\ 11. would recommend switching to gabapentin 300 mg TID for seizure prevention. currently on phenobarb. 12. patient is anticipating discharge today- unclear if social issues are resolved I have seen and discussed above patient with Dr Pascual Choi neurology Patient seen briefly ad case discussed with Adelaida Chowdhury and Adelaida Mckeon MD who saw him yesterday This may well have elements of a korsakoff psychosis due to malnutrition when at home and consuming excessive etoh and inadequate calories and thiamine but the issue is academic at this point as insight is essentially zero and compliance with any therapeutic attempts likely to be equal. Would swithc to neurontin as an aed to eliminate the remote possibility that keppra is causing this behaviour eeg normal and I continue to doubt other than etoh withdrawal event and nonepileptic spells. Unlikely to cooperate for MRI we will sign ff at this time and would stop the phenobarbital as he really is throuogh the overt delerium tremens and it is yet another drug that he can withdraw from and produce seizures Pascual Choi MD
--- NOTE | 2018-01-04 15:32 | Progress Note ---
Medicine Progress Note Date & Time of Visit: Jan 04, 2018 at 15:26. Subjective Seen sitting up in bed, comfortable Oriented 3, calm, cooperative Answers questions appropriately Denies tremors, anxiety, hallucinations Not mentioning any delusional statements I examined the patient is in the morning and later in the afternoon States he is ready for discharge today Objective Last 8 Hrs Date Time Temp Pulse Resp B/P (MAP) Pulse Ox O2 Delivery O2 Flow Rate FiO2 01/04/18 07:33 Room Air Physical Exam: General-oriented 3, not in distress, speaking in sentences, no accessory muscle use Eyes- anicteric Neck- no JVD Lungs- clear breath sounds bilaterally Heart-normal rate, regular rhythm; no murmurs Abdomen- normal bowel sounds, soft, nontender Extremities- no pretibial edema, no calf tenderness Neuro- alert, oriented x 3; no gross focal neurologic deficits Psych- calm, normal affect, not stating delusional statements at the time of interview Skin- warm & dry Laboratory Results: Last 24 Hours Test 01/03/18 16:52 01/04/18 06:29 Rapid Plasma Reagin NONREACTIVE Assessment & Plan BREAKTHROUGH SEIZURES POSSIBLY FROM UNDERLYING SEIZURE DISORDER VS ALCOHOL WITHDRAWAL SEIZURE Neurology consulted Dr. Choi Recommend to transition from Keppra to gabapentin 300 mg 3 times daily Keppra may be contributing to his episodes of rage as per Dr. Choi Management of alcohol withdrawal noted below No recurrence of seizures while admitted will need to follow-up with neurologist closely as an outpatient patient ALCOHOL WITHDRAWAL ALCOHOL INTOXICATION/POLYSUBSTANCE ABUSE Significant improvement with phenobarbital tapering course Continue olanzapine daily at night discontinue clonidine This patient's blood pressure is already in the lower side Patient will follow-up with primary care physician Sunday, January 07, 2018 Advised to continue abstaining from alcohol, discussed all the risks involved including risk for seizures, etc. 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, repeatedly, cannot be reoriented or reassured Patient's sister at bedside, states patient has been forgetful and has behavioral outbursts at home as well, occasionally being statements that does not make sense Discharge canceled, psychiatry and neurology service consulted for delusions and cognitive impairment Patient became very agitated and combative with the nurse that he needs to stay in the hospital, security summoned Spent at least an hour with the patient and his sister Ultimately the patient agreed with the plan of care, sister also verbalized agreement January 03, 2018 patient seems to be calmer, oriented 3 Answers most questions appropriately Discussed with psychiatry service-does not recommend inpatient psych treatment at this time, patient may be observed as an outpatient, and if symptoms worsen, may need to be readmitted Discussed with neurology service, brain MRI and EEG ordered January 04, 2018 Brain MRI declined by patient, discussed with neurology , they are okay with not repeating MRI patient calm, cooperative, oriented 3 Cleared by neurology and psychiatry for discharge to home with close observation HYPONATREMIA CHRONIC Nephrology consulted Due to alcohol abuse Sodium level normalized IV fluids discontinued Follow PRP HYPOKALEMIA Resolved TRANSAMINITIS AST greater than ALT With elevated alkaline phosphatase Due to alcoholic liver disease/hepatitis Right upper quadrant ultrasound Shows hepatic steatosis No evidence of gallbladder disease CT abdomen pelvis: Shows severely steatotic liver, no splenomegaly GI service consulted follow-up LFTs as an outpatient HISTORY OF PAF/A. FIB Continue with diltiazem Not a candidate for chronic anticoagulation secondary to alcohol intoxication/ abuse/high fall risk SIGNIFICANT THROMBOCYTOPENIA Platelet count 28->20->31 secondary to alcoholic abuse peripheral blood smear 1. NORMOCHROMIC/NORMOCYTIC RED BLOOD CELLS, UNREMARKABLE LEUKOCYTES, AND MARKEDLY DECREASED NUMBERS OF PLATELETS ARE SEEN. 2. PLATELET CLUMPING IS NOT PRESENT. 3. BLASTS AND SCHISTOCYTES ARE NOT SEEN. 4. THE CLINICAL HISTORY OF ALCOHOL USE IS NOTED. --Platelet level normalized FALL/AMBULATORY DYSFUNCTION Multiple bruise on extremities, secondary to fall Possible secondary to alcohol intoxication PT/OT consulted patient ambulating with no problems ITCHING SKIN RASH /CONCERN FOR POSSIBLE SCABIES : Permethrin cream given CODE STATUS: Full code DISPOSITION: Patient declined inpatient alcohol rehab Case management involved discharge to home Follow-up with PCP on Sunday, January 07, 2018 follow-up with neurologist in 2-3 weeks Current Inpatient Medications: Current Inpatient Medications Medications (Trade) Dose Ordered Sig/Rica Route Start Time Stop Time Status Last Admin Dose Admin Diltiazem HCl (Cardizem Cd Cap) 120 mg QAM PO 12/20/17 09:00 01/19/18 08:59 01/04/18 08:58 120 MG Folic Acid (Folvite Tab) 1 mg QAM PO 12/20/17 09:00 01/19/18 08:59 01/04/18 08:59 1 MG Levetiracetam (Keppra Tab) 1,000 mg Q12 PO 12/19/17 21:00 01/18/18 20:59 01/04/18 08:59 1,000 MG Potassium Chloride (Klor-Con Tab) 20 meq QAM PO 12/23/17 09:00 01/22/18 08:59 01/04/18 09:00 20 MEQ Thiamine HCl (Vitamin B-1 Tab) 300 mg QAM PO 12/24/17 10:00 01/23/18 09:59 01/04/18 10:26 300 MG Olanzapine (Zyprexa Tab) 20 mg HS PO 12/24/17 21:00 01/20/18 10:59 01/03/18 20:34 20 MG Acetaminophen (Tylenol Tab) 325 mg Q6H PRN PO 12/26/17 23:15 01/25/18 23:14 Clonidine HCl (Catapres Tab) 0.1 mg DAILY PO 12/28/17 09:00 01/21/18 20:59 01/04/18 08:59 0.1 MG Albuterol/ Ipratropium (Duoneb) 3 ml Q2H PRN INH 12/29/17 05:00 01/28/18 04:59 Amoxicillin/ Clavulanate Potassium (Augmentin Tab) 875 mg BIDM PO 12/29/17 08:00 01/05/18 07:59 01/04/18 08:58 875 MG Lorazepam (Ativan Tab) 1 mg Q6 PRN PO 12/31/17 12:45 01/30/18 12:44 01/03/18 14:09 1 MG Phenobarbital (Phenobarbital Elix) 4 mg Q6H PO 01/03/18 12:00 01/05/18 06:01 01/04/18 12:02 4 MG Phenobarbital (Phenobarbital Elix) 4 mg Q12H PO 01/05/18 18:00 01/07/18 06:01
[2018-01-04] MEDS ORDERED: NRN300 PO (15:37)
--- NOTE | 2018-01-04 15:56 | Discharge Summary ---
Discharge Summary Date of Service Jan 04, 2018. Discharge Summary Admission Date: Dec 19, 2017 at 09:38 Discharge Date: Jan 02, 2018 Discharge Disposition: Home Principal Diagnosis: BREAKTHROUGH SEIZURES POSSIBLY FROM ALCOHOL WITHDRAWAL SEIZURE vs UNDERLYING SEIZURE DISORDER Secondary Diagnoses/Problems: Please refer to hospital course below. Procedures: HEAD WITHOUT CONTRAST (CT) CT DOSE: 788.63 mGycm HISTORY: Mental status change. seizure, fall TECHNIQUE: Multiaxial CT images of the head were performed without the use of intravenous contrast. A dose lowering technique was utilized adhering to the principles of ALARA. Comparison: 11/15/2017 Findings: Unchanging mucous retention cyst right maxillary sinus. Mild mucosal thickening ethmoid sinuses. The calvarium and skull base are intact. The ventricles and sulci are within normal limits. There is no mass, hematoma, midline shift, or acute infarct. Impression: No acute intracranial abnormality. (LIVER) ABDOMEN LIMITED, DUPLEX PORTAL HEPATIC VEINS HISTORY: 57 years-old Male TRANSAMINITIS acutely elevated LFTs COMPARISON: CTA of the chest 11/03/2016 TECHNIQUE: Multiple real-time sonographic images of the abdominal right upper quadrant were obtained assessing grayscale appearance and color flow. Additional color and spectral analysis of the hepatic vasculature was also performed. FINDINGS: The pancreas is mostly obscured by bowel gas with the imaged portions appearing unremarkable. There is increased echogenicity of the liver with poor through transmission suggesting hepatic steatosis. The liver also appears enlarged measuring up to 22 cm in length. No focal hepatic mass lesions or intrahepatic biliary ductal dilation. The gallbladder is unremarkable without wall thickening, shadowing cholelithiasis or pericholecystic fluid. Common bile duct is normal, 2 mm. Sonographic Fonseca sign reported as negative. Hepatopedal flow is noted throughout the portal veins. Normal phasic waveforms within the hepatic veins. Patent IVC and splenic vein. Right kidney measures 13.6 cm in length and appears unremarkable without hydronephrosis. IMPRESSION: 1. Hepatic steatosis with suggested hepatomegaly. 2. No cholelithiasis or sonographic evidence of acute cholecystitis. 3. No biliary ductal dilation. 4. Hepatopedal flow within the portal vein with normal appearance of the hepatic vasculature. LIVER (ABDOMEN) COMBO CLINICAL HISTORY: 57 years-old Male presenting with elevated liver functions , 4 phase. TECHNIQUE: Multidetector CT of the abdomen was performed before and after the administration of intravenous contrast. IV contrast: 116 mL of Optiray 320. A dose lowering technique was used consistent with the principles of ALARA (as low as reasonably achievable). COMPARISON: 10/20/2016. CT DOSE (mGy.cm): The estimated cumulative dose is 1321.76 mGy.cm. FINDINGS: [employer] topogram: Unremarkable. Lung bases: Minimal basilar opacities, likely atelectasis. Interval resolution of the previously noted complete collapse of the right lower lobe. Normal heart size. No pericardial or pleural effusion. Liver: Mildly enlarged measuring 21 cm in sagittal dimension. Density consistent with severe hepatic steatosis. 1.7 cm lesion in the inferior right hepatic lobe does not demonstrate significant enhancement on any of the phases and is hyperdense on noncontrast relative to surrounding severely steatotic liver parenchyma. Numerous additional similar-appearing and less prominent lesions are evident elsewhere in the liver, the largest in the left hepatic lobe measuring 2.3 cm (series 3 image 55). The attenuation does not match that of the blood flow nor water attenuation. Findings consistent with multifocal hypovascular lesions. The appearance is unchanged from prior exam. Patent hepatic vasculature. Biliary: No intrahepatic or extrahepatic biliary ductal dilatation. Gallbladder decompressed. Pancreas: Normal. Spleen: Normal. Adrenal glands: Normal. Kidneys and ureters: Normal. No hydronephrosis. Bowel: Normal. No bowel obstruction. Peritoneal cavity: No free fluid or intraperitoneal gas. Lymph nodes: No enlarged lymph nodes in the abdomen. Vasculature: Atherosclerosis of the normal caliber abdominal aorta. IVC patent. Abdominal wall: Normal. Musculoskeletal: Degenerative changes of the spine. Multiple old rib fractures noted bilaterally. IMPRESSION: 1. Multifocal hypovascular lesions throughout the severely steatotic an enlarged liver. The appearance is unchanged from prior exam over one year ago. This is consistent with a benign etiology these remain indeterminant. Hemangiomas would be expected to enhance attenuation that matches the blood pool, which is not evident in these lesions. Differential considerations include focal nodular hyperplasia among other benign etiologies. If there is clinical concern, contrast-enhanced MR of the liver could be considered. Consultations: Neurologist Dr. Choi, Psychiatry Dr. Valero/SEAMUS Fraga, Equipment Services Associate Dr. Wu Pending Studies/Follow-Up: Please refer to hospital course below. Medication Reconciliation New Medications: Gabapentin (Gabapentin) 300 Mg Cap 1 CAP PO TID for 30 Days, #90 CAP 1 Refill Olanzapine (Zyprexa) 20 Mg Tab 20 MG PO HS for 15 Days, #15 TAB 0 Refills Potassium Chloride (Klor-Con M20) 20 Meq Tabcr 20 MEQ PO QAM for 15 Days, #15 TAB 0 Refills Continued Medications: Diltiazem HCl (Diltiazem Cd) 120 Mg Capcr 120 MG PO QAM for 30 Days, #30 EA 1 Refill Folic Acid (Folic Acid) 1 Mg Tab 1 MG PO QAM for 30 Days, #30 TAB Thiamine HCl (Vitamin B-1) 100 Mg Tab 100 MG PO QAM for 30 Days, #30 TAB Discontinued Medications: Diphenhydramine Hcl (Allergy) 25 Mg Cap 25 MG PO UD PRN for Allergy Symptoms Levetiracetam (Keppra) 1,000 Mg Tab 1000 MG PO Q12 for 30 Days, #60 TAB 1 Refill Quetiapine Fumarate (Seroquel) 50 Mg Tab 50 MG PO DAILY, TAB Admission Information HPI (per Admitting provider): Pt is 57 y/o M with PMH paroxysmal atrial fibrillation, seizure disorder, alcohol abuse, tobacco abuse, chronic thrombocytopenia presented to ER with complaint of seizure. Patient very groggy upon my assessment and thorough history hard to obtain from pt. patient states was at home last evening and went to bathroom and started to feel dizzy, blurry vision and then reports having a seizure which he describes as shaking and blacking out and falling. He denies urinary or fecal incontinence. Patient reports that he has been taking his Keppra as prescribed. He reports past week has had approximately 25 seizures which is increased from previous. Patient reports multiple falls secondary to seizures and multiple bruises to extremities and left flank. Patient reports to this provider last 2 beers was 2 days ago. Patient states drinks 2 cans of beer a day. Of note, today his EtOH level in ER was 357. Patient states he does not believe his seizures are in relation to alcohol use or withdrawal however does state that he thinks alcohol is not helping his underlying seizure disorder. He is complaining of headache and reports chronic headaches. Patient reports pruritic rash to bilateral hands for several weeks. Denies others with similar rash. Reports lives with brother, denies staying in hotels/other locations. Denies known insect/tick bite. Pt reports some left shoulder pain from fall last night, aggravated with ROM. Unclear if pt having any chest pain or SOB. Denies fever/chills, diaphoresis, N/V/D/C, neck pain, cough, abdominal pain, extremity edema, urinary symptoms. Physical Exam (per Admitting): General Appearance: WD/WN, + pertinent finding (Pt sleeping upon initial assessement, awakens to tactile stimulation, frequently falls back asleep) Head: normocephalic, atraumatic Eyes: PERRL, sclerae normal, + pertinent finding (+lateral nystagmus noted) ENT: hearing grossly normal, + pertinent finding (mucous membranes mildly dry) Neck: supple, trachea midline Respiratory/Chest: lungs clear, normal breath sounds, no respiratory distress Cardiovascular: regular rate, rhythm, no murmur, normal peripheral pulses Abdomen/GI: normal bowel sounds, non tender, soft Back: no CVA tenderness Extremities/Musculoskelatal: no calf tenderness, normal capillary refill, no pedal edema, + pertinent finding (left shoulder: no ecchymosis, erythema or deformity noted, no tenderness upon palpation, pt reports tenderness anterior/ lateral shoulder with full flexion, abduction. elbow/wrist non-tender ROM intact , distal pulses intact) Neurologic/Psych: + pertinent finding (Pt sleeping upon initial assessement , awakens to tactile stimulation, frequently falls back asleep, irritatble with questions, is cooperative with exam) Skin: warm/dry, + pertinent finding (+erythematous papules and excoriations to bilateral hands and finger web spaces. Left flank with ecchymosis, petechiae , multiple ecchymosis to bilateral arms, legs) Hospital Course BREAKTHROUGH SEIZURES POSSIBLY FROM UNDERLYING SEIZURE DISORDER VS ALCOHOL WITHDRAWAL SEIZURE Neurology consulted Dr. Choi Recommend to transition from Keppra to gabapentin 300 mg 3 times daily Keppra may be contributing to his episodes of rage as per Dr. Choi Management of alcohol withdrawal noted below No recurrence of seizures while admitted will need to follow-up with neurologist closely as an outpatient patient ALCOHOL WITHDRAWAL ALCOHOL INTOXICATION/POLYSUBSTANCE ABUSE Equipment Services Associate Dr. Wu consulted, Phenobarbital taper ordered Significant improvement with phenobarbital tapering course Seroquel changed to olanzapine daily at night discontinue clonidine, patient's blood pressure is already in the lower side Patient will follow-up with primary care physician Sunday, January 07, 2018 Advised to continue abstaining from alcohol, discussed all the risks involved including risk for seizures, etc. 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, repeatedly, cannot be reoriented or reassured Discharge canceled, psychiatry and neurology service consulted for delusions and cognitive impairment Psychiatrist consulted, according to them patient is not acting on specific delusions and can still be observed as an outpatient neurology reconsulted, recommend to change Keppra to gabapentin Case management also clinically involved, at this point patient does not qualify for [facility] facility placement Plan is to transition to home with home health services After the above episode, patient remained calmer, oriented 3 Answers questions appropriately Cleared by neurology and psychiatry for discharge to home with close observation HYPONATREMIA CHRONIC Nephrology consulted Due to alcohol abuse Sodium level normalized IV fluids discontinued Follow PRP HYPOKALEMIA Resolved TRANSAMINITIS AST greater than ALT With elevated alkaline phosphatase Due to alcoholic liver disease/hepatitis Right upper quadrant ultrasound Shows hepatic steatosis No evidence of gallbladder disease CT abdomen pelvis: Shows severely steatotic liver, no splenomegaly GI service consulted follow-up LFTs as an outpatient HISTORY OF PAF/A. FIB Continue with diltiazem Not a candidate for chronic anticoagulation secondary to alcohol intoxication/ abuse/high fall risk SIGNIFICANT THROMBOCYTOPENIA Platelet count 28->20->31 secondary to alcoholic abuse peripheral blood smear 1. NORMOCHROMIC/NORMOCYTIC RED BLOOD CELLS, UNREMARKABLE LEUKOCYTES, AND MARKEDLY DECREASED NUMBERS OF PLATELETS ARE SEEN. 2. PLATELET CLUMPING IS NOT PRESENT. 3. BLASTS AND SCHISTOCYTES ARE NOT SEEN. 4. THE CLINICAL HISTORY OF ALCOHOL USE IS NOTED. --Platelet level normalized FALL/AMBULATORY DYSFUNCTION Multiple bruise on extremities, secondary to fall Possible secondary to alcohol intoxication PT/OT consulted patient ambulating with no problems ITCHING SKIN RASH /CONCERN FOR POSSIBLE SCABIES : Permethrin cream given CODE STATUS: Full code DISPOSITION: Patient declined inpatient alcohol rehab Case management involved discharge to home Follow-up with PCP on Sunday, January 07, 2018 follow-up with neurologist in 2-3 weeks Total time spent on discharge = 55 minutes This includes examination of the patient, discharge planning, medication reconciliation, and communication with other providers. Discharge Instructions Discharge Instructions Date of Service Jan 02, 2018. Admission Reason for Admission: Alcohol Intoxication, Recurrent Seizures Discharge Discharge Diagnosis / Problem: Alcohol intoxication, recurrent seizures Discharge Goals Goal(s): Diagnostic testing, Therapeutic intervention Activity Recommendations Activity Limitations: as noted below (No heavy exertion until reevaluated by the primary care physician) Lifting Limitations: gradually increase as tolerated Exercise/Sports Limitations: until after follow-up appointment Driving or Machine Use: NO DRIVING, USE OF MACHINERY NO DRIVING, USE OF MACHINERIES, SWIMMING OR BATHING Instructions / Follow-Up Instructions / Follow-Up Please review your medication list very carefully and follow instructions carefully as well. If you have any questions were instructed about any of her medications, please call your primary care physician immediately. Call your primary care physician or return to the ER immediately if with worsening of symptoms. Call 911 immediately if with seizure recurrence. No driving, use of machines, bathing, swimming. Please follow-up with your primary care physician Dr. Bledsoe on Sunday, December at 230pm. Please follow-up with neurologist Dr. Choi in 2-3 weeks. Tel No. Current Hospital Diet Patient's current hospital diet: Low Fat Diet Discharge Diet Recommended Diet: AHA Diet (Heart Healthy) Procedures Procedures Performed: CT head, CT abdomen and pelvis, chest x-ray, ultrasound Pending Studies Studies pending at discharge: yes List of pending studies: Repeat blood work care of primary care physician on follow-up January 07, 2018 Medical Emergencies . Who to Call and When: Medical Emergencies: If at any time you feel your situation is an emergency, please call 911 immediately. . Non-Emergent Contact Non-Emergency issues call your: Primary Care Provider, Neurologist Call Non-Emergent contact if: you have a fever, you have any medication questions . . "Provider Documentation" section prepared by Agapito Leblanc. .
[2018-01-04 16:55] VITALS: BP 121/81; PULSE 72; TEMP 36.4; O2SAT 98
[2018-01-04] MEDS ORDERED: GABAPENTIN 300 MG CAP PO SCH ×2 (21:00)
[2018-01-05] MEDS ORDERED: PHENOBARBITAL ELIX 20 MG/5 ML PO SCH (18:00)
== END 2018-01-04 17:59 | disposition home health service (06) | DRG 100 ==
LOC: EDBD 01:12 → C.EDC 01:13 → C.2E 09:38 → UNDOADMIN 09:38 → ENRESERV 10:16 → CANRESERV 10:24 → ENRESERV 10:24 → EDBEDREQ 12-22 16:46 → ENRESERV 12-22 17:04 → C.MS2W 12-22 17:51 → C.2E 12-22 17:51
PROVIDERS: ADMIT Hospitalist; ATTEND Internal Medicine
DX: G40.909 Epilepsy, unspecified, not intractable, without status epilepticus (principal); G93.41 Metabolic encephalopathy; R56.9 Unspecified convulsions; F10.239 Alcohol dependence with withdrawal, unspecified; I48.0 Paroxysmal atrial fibrillation; Z80.0 Family history of malignant neoplasm of digestive organs; D69.6 Thrombocytopenia, unspecified; R74.0 Nonspecific elevation of levels of transaminase and lactic acid dehydrogenase [LDH]; R29.6 Repeated falls; E87.6 Hypokalemia; E87.1 Hypo-osmolality and hyponatremia; B86 Scabies; K70.10 Alcoholic hepatitis without ascites; Z83.3 Family history of diabetes mellitus; Z82.49 Family history of ischemic heart disease and other diseases of the circulatory system; F17.200 Nicotine dependence, unspecified, uncomplicated; K76.0 Fatty (change of) liver, not elsewhere classified; Z91.14 Patient's other noncompliance with medication regimen

== ENCOUNTER 2018-10-15 08:58 | Inpatient (IN) ==
--- OUTSIDE RECORDS SUMMARY | 2018-10-15 09:01 | External Medical Summary | Continuity of Care Document ---
:1960 Author Name Fredis Fisher, Provider Address Unavailable Unavailable , Care Team Providers Name Role Phone Unavailable Unavailable Unavailable PCP, UNKNOWN Unavailable Unavailable Problems Active medical history not documented Allergies and Adverse Reactions Allergy history not documented Medications Medications not documented Procedures Procedures not documented Immunizations Immunizations not documented Plan of Treatment Planned Observations Planned Goals not documented Results No Known Results Results not documented
[2018-10-15] MEDS ORDERED: FOLIC ACID 1 MG in SYRINGE 9.8 ML IV STA (09:42)
[2018-10-15] MEDS ORDERED: PROCHLORPERAZINE 5 MG in SYRINGE 4 ML IV ONE (09:42)
[2018-10-15] MEDS ORDERED: THIAMINE HCL 100 MG in SYRINGE 9 ML IV STA (09:42)
[2018-10-15] MEDS ORDERED: DiphenhydrAMINE HCL 50 MG/ML VIAL IV STA (09:42)
[2018-10-15] MEDS ORDERED: SODIUM CHLORIDE 0.9% 1000ML 1,000 ML IV SCH ×2 (09:45→19:00)
[2018-10-15 10:11] LABS: Appearance Urine Clear (Clear); Bilirubin Urine Negative (Negative); Blood Urine Negative (Negative); Color Urine Yellow; Glucose Urine UA Negative (Negative); Ketones Urine Negative (Negative); Leukocyte Esterase Urine Negative (Negative); Nitrite Urine Negative (Negative); Protein Urine Negative (Negative); Specific Gravity Urine 1.009 (1.000-1.030); Urobilinogen Urine Negative (Negative)
--- NOTE | 2018-10-15 10:14 | XRay Report ---
XR chest 1V portable CLINICAL HISTORY: Tachycardia COMPARISON STUDY: 07/06/2018 FINDINGS: The heart is normal in size. There is no failure. There is no focal pulmonary consolidation . There are no pleural effusions. There are old rib fractures.[ IMPRESSION: No active disease in the chest. Electronically signed by: Jose Villanueva M.D. 10/15/2018 10:13 AM
[2018-10-15 10:49] LABS: Amphetamines+Metham, Urine Pos (Neg); Barbiturates, Urine Neg (Neg); Benzodiazepine, Urine Neg (Neg); Cocaine, Urine Pos (Neg); MDMA (Ecstacy), Urine Neg (Neg); Methadone, Urine Neg (Neg); Opiate, Urine Neg (Neg); Phencyclidine, Urine Neg (Neg)
[2018-10-15 11:06] LABS: Hemoglobin 15.5 g/dL (14.0-18.0); Mean Corpuscular Volume 91.7 fL (80-100); Mean Platelet Volume 10.1 fL (7.4-10.4); Platelet Count 98 K/uL (130-400); RDW Coefficient of Variation 12.8 % (11.5-14.5); RDW Standard Deviation 42.8 fL (36.4-46.3); Red Blood Count 4.69 M/uL (4.7-6.1); White Blood Count 3.06 K/uL (4.8-10.8)
[2018-10-15] MEDS ORDERED: HALOPERIDOL LACTATE 5 MG/ML 1 ML VIAL IM STA (11:08)
[2018-10-15] MEDS ORDERED: LORazepam 2 MG/4 ML VIAL IV STA ×2 (11:08→13:05)
--- NOTE | 2018-10-15 11:18 | CT Scan Report ---
CT head/brain wo con CT DOSE: 537.48 mGy.cm HISTORY: Mental status change headache TECHNIQUE: Multiaxial CT images of the head were performed without the use of intravenous contrast. A dose lowering technique was utilized adhering to the principles of ALARA. Comparison: 07/02/2018 Findings: Unchanged mucous retention cyst posterior aspect right maxillary sinus. Sinuses are otherwi se clear. The calvarium and skull base are intact. The ventricles and sulci are within normal limits. There is no mass, hematoma, midline shift, or acute infarct. Impression: No acute intracranial abnormality. Unchanged mucous retention cyst right maxillary sinus. The above report was generated using voice recognition software. It may contain grammatical, syntax or spelling errors. Electronically signed by: Keo Muir M.D. 10/15/2018 11:17 AM
[2018-10-15 11:25] LABS: Basophils # (auto) 0.01 K/uL (0-0.2); Basophils % (auto) 0.3 %; Eosinophils # (auto) 0.01 K/uL (0-0.5); Eosinophils % (auto) 0.3 %; Lymphocytes # (auto) 0.65 K/uL (1.2-3.4); Lymphocytes % (auto) 21.2 %; Monocytes # (auto) 0.57 K/uL (0.11-0.59); Monocytes % (auto) 18.6 %; Neutrophils # (auto) 1.82 K/uL (1.4-6.5); Neutrophils % (auto) 59.6 %
[2018-10-15 11:28] LABS: Alanine Aminotransferase 88 U/L (12-78); Albumin Level 4.4 gm/dl (3.4-5.0); Aspartate Aminotransferase 65 U/L (15-37); BUN Creatinine Ratio 15.7 (10-20); Blood Urea Nitrogen 24 mg/dl (7-18); Calcium 9.1 mg/dl (8.5-10.1); Carbon Dioxide 29 mmol/L (21-32); Chloride 102 mmol/L (98-107); Est GFR (African American) 57.2; Est GFR (Non-African American) 49.4; Glucose 84 mg/dl (70-99); Sodium 137 mmol/L (136-145)
[2018-10-15 11:39] LABS: Albumin Globulin Ratio 1.1 (0.9-2); Alkaline Phosphatase 137 U/L (45-117); Bilirubin,Total 1.5 mg/dl (0.2-1); Globulin 3.9 gm/dl (2.5-4.0); Total Protein 8.3 gm/dl (6.4-8.2)
[2018-10-15 11:48] LABS: Acetaminophen < 2 ug/ml (10-30); Salicylate 3.9 mg/dl (2.8-20)
--- NOTE | 2018-10-15 17:23 | Emergency Department Note ---
Entered by Gisela Salinas acting as a scribe for History of Present Illness General Chief complaint: Mental Health Evaluation Stated complaint: MENTAL HEALTH EVALUATION Source: patient and police History of Present Illness Onset (ago): hour(s) (this morning) Location: head Pain Consistency: + other (episode) Maximum Pain Intensity: 0 Quality: + other (mental health) Associated symptoms: + denies other symptoms (fever, coughs, rhinorrhea, abdominal pain, nausea, diarrhea, chest pain, or sore throat. ) and + headaches (front and back); no nausea/vomiting (vomiting resolved) The patient is a 58 year old male that is presenting to the Emergency Room for a mental health evaluation after the patient was picked up by police last night. The patient was brought to the hospital by police after being denied service at a [employer] bar. The police note that the patient was found with a white powder on his hands. The patient states that he was at the bar to retrieve his roommate who was drinking there. The police note that the patients roommate found the patient unconscious 2 days ago. The patient states that his chief complaint is a persistent headache that started 3 days ago. The patient reports that the headache is located in the front and back of his head and notes that it does not resemble past headaches. He states that he is unable to sleep secondary to the pain. He denies any fever, coughs, rhinorrhea, abdominal pain, nausea, diarrhea, chest pain, or sore throat. He reports that he vomited three times yesterday but states that the vomiting has now resolved. He notes that he took 3 Percocet tablets this morning which briefly relieved the pain but states that the headache returned shortly after. The patient states that he has quit drinking after originally stating that he drinks every day. He denies being an alcoholic. He states that he quit drinking 1 month ago but notes that he has had 5 drinks in the past month. He reports that his roommate drinks beer daily. He states that he does not take any drugs. The patient reports that the blister on his thumb is from lighting cigarettes and the red spot in his anterior elbow is from an insect bite when he was outdoors. He denies any psychological issues or any suicidal or homicidal ideations. He denies any auditory or visual halluci nations. The patient is able to state the year. Home Medications Home Medications Medication Instructions Recorded Confirmed Type gabapentin 300 mg PO TID 06/27/18 10/15/18 History metoprolol succinate 25 mg PO QAM 06/27/18 10/15/18 History pantoprazole 20 mg PO QAM 08/06/18 10/15/18 History vitamin B complex 2 tab PO QAM 08/06/18 10/15/18 History sumatriptan succinate 2 tab PO UD PRN 09/23/18 10/15/18 History Allergies Allergy/AdvReac Type Severity Reaction Status Date / Time ibuprofen Allergy Unknown FACIAL Verified 09/23/18 15:47 SWELLING Past Med/Surg History Medical History Alcohol abuse (Chronic) Tobacco abuse (Chronic) History of traumatic brain injury (Chronic) ~45 YEARS AGO Seizure (Chronic) "BLACK OUT" SEIZURES. Pt stated to nurse that he had a grand mal seizure today 09/23/18. Thrombocytopenia (Chronic) PAF (paroxysmal atrial fibrillation) (Chronic) follows with Dr. Jackman Mood disorder (Chronic) Malnutrition related to chronic disease (Chronic) Alcoholism (Acute) Depression GERD (gastroesophageal reflux disease) Hypertension Surgical History History of colonoscopy History of esophagogastroduodenoscopy (EGD) History of herniorrhaphy UMBILICAL HERNIA (RIGHT ABOVE THE GROIN CENTER ABDOMEN) Family History Father Diabetes Mother Pancreatic cancer Other No family history of adverse response to anesthesia Social History Preferred Language: [place] Communication Ability: Effective Visual Impairment: No Limitations Beliefs That Will Affect Care: None Current Living Situation: Alone Current Living Situation Comment: unable to report other: [place] Feels Safe at Home: Yes Smoking Status: Current every day smoker Tobacco Type: cigars Cigarettes Per Day: 1-2 cigars a day Second Hand Exposure: Yes (parents smoked) Hx Alcohol Use: No (quit over a year ago) Hx Substance Use: No Review of Systems See HPI for pertinent positives & negatives. and A total of 10 systems reviewed and were otherwise negative Physical Exam Vital Signs Vital Signs - 24 hr 10/15/18 09:06 10/15/18 10:00 10/15/18 10:13 Temperature Source Oral Sepsis Recent Fever Within 48 Hours No Sepsis Action Taken by Nursing No Action Required Pulse Rate 102 H Pulse Rate [Finger] 75 Pulse Rate from SpO2 Sensor Pulse Rhythm [Finger] Pulse Strength [Finger] Respiratory Rate 20 16 Respiratory Effort / Characteristics Non-Labored Non-Labored Respiratory Depth Normal Normal Respiratory Pattern Blood Pressure 144/77 H Blood Pressure [Left Arm] 134/86 Blood Pressure Mean 99 Blood Pressure Mean [Left Arm] 102 Blood Pressure Position [Left Arm] Pulse Oximetry 97 95 94 Oxygen Delivery Method Room Air Room Air Room Air 10/15/18 10:32 10/15/18 13:22 10/15/18 13:23 Temperature Source Sepsis Recent Fever Within 48 Hours Sepsis Action Taken by Nursing Pulse Rate Pulse Rate [Finger] 75 Pulse Rate from SpO2 Sensor 85 87 Pulse Rhythm [Finger] Pulse Strength [Finger] Respiratory Rate 18 Respiratory Effort / Characteristics Respiratory Depth Respiratory Pattern Blood Pressure 95/67 L Blood Pressure [Left Arm] 140/86 Blood Pressure Mean 76 Blood Pressure Mean [Left Arm] 104 Blood Pressure Position [Left Arm] Pulse Oximetry 94 93 95 Oxygen Delivery Method Room Air 10/15/18 13:25 10/15/18 13:31 10/15/18 13:38 Temperature Source Sepsis Recent Fever Within 48 Hours Sepsis Action Taken by Nursing Pulse Rate Pulse Rate [Finger] 84 Pulse Rate from SpO2 Sensor 78 Pulse Rhythm [Finger] Pulse Strength [Finger] Respiratory Rate 19 Respiratory Effort / Characteristics Respiratory Depth Respiratory Pattern Blood Pressure 103/65 Blood Pressure [Left Arm] 95/67 L 103/65 Blood Pressure Mean 77 Blood Pressure Mean [Left Arm] 76 77 Blood Pressure Position [Left Arm] Pulse Oximetry 93 91 Oxygen Delivery Method Room Air 10/15/18 14:00 10/15/18 14:01 10/15/18 15:02 Temperature Source Sepsis Recent Fever Within 48 Hours Sepsis Action Taken by Nursing Pulse Rate 80 80 Pulse Rate [Finger] 78 Pulse Rate from SpO2 Sensor 79 80 Pulse Rhythm [Finger] Regular Pulse Strength [Finger] Normal Respiratory Rate 15 17 22 Respiratory Effort / Characteristics Non-Labored Spontaneous Respiratory Depth Normal Respiratory Pattern Regular Blood Pressure 102/68 Blood Pressure [Left Arm] 96/74 L Blood Pressure Mean 79 Blood Pressure Mean [Left Arm] 81 Blood Pressure Position [Left Arm] Lying Pulse Oximetry 91 92 95 Oxygen Delivery Method Room Air 10/15/18 17:03 Temperature Source Sepsis Recent Fever Within 48 Hours Sepsis Action Taken by Nursing Pulse Rate Pulse Rate [Finger] 73 Pulse Rate from SpO2 Sensor Pulse Rhythm [Finger] Regular Pulse Strength [Finger] Normal Respiratory Rate 22 Respiratory Effort / Characteristics Non-Labored Spontaneous Respiratory Depth Normal Respiratory Pattern Regular Blood Pressure Blood Pressure [Left Arm] 108/62 Blood Pressure Mean Blood Pressure Mean [Left Arm] 77 Blood Pressure Position [Left Arm] Lying Pulse Oximetry 93 Oxygen Delivery Method Room Air GENERAL: Sitting up in bed, alert, disheveled appearing, no distress, non-toxic EYE EXAM: normal conjunctiva OROPHARYNX: no exudate, no erythema, lips, buccal mucosa, and tongue normal and mucous membranes are moist NECK: supple, no nuchal rigidity, no adenopathy, non-tender LUNGS: Clear to auscultation. Normal chest wall mechanics HEART: no murmurs, S1 normal and S2 normal ABDOMEN: abdomen soft, non-tender, normo-active bowel sounds, no masses, no rebound or guarding. BACK: Back is symmetrical on inspection and there is no deformity, no midline tenderness, no CVA tenderness. SKIN: no rashes and no bruising UPPER EXTREMITIES: upper extremities are grossly normal. LOWER EXTREMITIES: No pitting edema. NEURO EXAM: Awake alert following commands with pressured speech, not oriented to year but oriented to place and not month, cranial nerves II-XII intact, pressured speech, no weakness of arms, no weakness of legs. No drift. Finger to nose intact. Gross sensation intact. PSYCH: No suicidal or homicidal ideation. No auditory of visual hallucinations. Admits to not been asleep for the past 3 nights along with pressured speech. Course ED COURSE: Vital signs were reviewed and showed hypertension and tachycardia. The patients medical record was reviewed The above diagnostic studies were performed and reviewed. ED treatments and interventions as stated above. 0935: The patient was evaluated in room A06. A complete history and physical examination was performed. 1100: I reviewed the patient's record. The patient has been in the Emergency Room in the past for alcohol-related issues but has no known psychological issues beyond an episode of psychosis in 2014. 1253: The patient is attempting to get up and leave his room. The patient will be sedated and 2 Ativan will be given at this time. 1628: I updated the patient on his current lab and imaging results. The patient continues to be agitated. 1630: I discussed the patient's case with SEAMUS Nava, who will evaluate the patient for further management and care. 1651: Upon reevaluation, the patient is resting comfortably.I discussed my findings with the patient and he understands and agrees with the treatment plan. Based on the patients age, coexisting illnesses, exam and lab findings the decision to treat as an inpatient was made. The patient remained stable while under my care. The patient will be evaluated for further management. Consultations Consultation #1: I discussed the patient's case with SEAMUS Nava, who will evaluate the patient for further management and care. Time: 16:30 Administered Medications Discontinued Medications Diphenhydramine HCl (Benadryl) 50 mg IV NOW STA Stop: 10/15/18 09:43 Last Admin: 10/15/18 10:07 Dose: 50 mg Documented by: [id number] Haloperidol Lactate (Haldol) 10 mg IM NOW STA Stop: 10/15/18 11:09 Last Admin: 10/15/18 13:10 Dose: 10 mg Documented by: [id number] Folic Acid 1 mg/ Syringe 10 mls @ 5 mls/min IV NOW STA Stop: 10/15/18 09:43 Last Admin: 10/15/18 10:56 Dose: 5 mls/min Documented by: [id number] Prochlorperazine 5 mg/ Syringe 5 mls @ 5 mls/min IV ONE ONE Stop: 10/15/18 09:43 Last Admin: 10/15/18 10:56 Dose: 5 mls/min Documented by: [id number] Thiamine HCl 100 mg/ Syringe 10 mls @ 2 mls/min IV NOW STA Stop: 10/15/18 09:46 Last Admin: 10/15/18 10:56 Dose: 2 mls/min Documented by: [id number] Sodium Chloride (Nss 1000ml) 1,000 mls @ 999 mls/hr IV .[id number] KAYLAN Stop: 10/15/18 10:45 Last Infusion: 10/15/18 11:19 Dose: 0 mls/hr Documented by: [id number] Admin: 10/15/18 10:07 Dose: 999 mls/hr Documented by: [id number] Lorazepam (Ativan) 2 mg in 4 mls @ 4 mls/min IV NOW STA Stop: 10/15/18 11:09 Last Admin: 10/15/18 11:33 Dose: 4 mls/min Documented by: [id number] Lorazepam (Ativan) 2 mg in 4 mls @ 4 mls/min IV NOW STA Stop: 10/15/18 13:06 Last Admin: 10/15/18 13:10 Dose: 4 mls/min Documented by: [id number] Medical Decision Making Differential Diagnosis Differential Diagnosis includes but is not limited to headache, tension headache, cluster headache, migraine, subarachnoid hemorrhage, meningitis, mass, central venous thrombus, concussion, trauma and epidural/subdural hemorrhage, mood disorder, infection, hypoglycemia, electrolyte abnormalities, cardiac sources, intracerebral event, toxicologic, neurologic, as well as others. Medical Records Attestation: I reviewed the patient's medical records. Home Medications Current Medication List: was personally reviewed by me Laboratory Data Attestation: I reviewed the patient's lab results. Result diagrams: 10/15/18 10:35 10/15/18 10:35 Lab Results 10/15/18 10/15/18 10/15/18 Range/Units 09:15 09:15 10:35 WBC 3.06 L (4.8-10.8) K/uL RBC 4.69 L (4.7-6.1) M/uL Hgb 15.5 (14.0-18.0) g/dL Hct 43.0 (42-52) % MCV 91.7 (80-100) fL MCH 33.0 (25-34) pg MCHC 36.0 (32-36) g/dL RDW Std Deviation 42.8 (36.4-46.3) fL RDW Coeff of Durga 12.8 (11.5-14.5) % Plt Count 98 L (130-400) K/uL MPV 10.1 (7.4-10.4) fL Immature Gran % (Auto) 0.0 % Neut % (Auto) 59.6 % Lymph % (Auto) 21.2 % [place] % (Auto) 18.6 % Eos % (Auto) 0.3 % Baso % (Auto) 0.3 % Immature Gran # (Auto) 0.00 (0.00-0.02) K/uL Neut # (Auto) 1.82 (1.4-6.5) K/uL Lymph # (Auto) 0.65 L (1.2-3.4) K/uL [place] # (Auto) 0.57 (0.11-0.59) K/uL Eos # (Auto) 0.01 (0-0.5) K/uL Baso # (Auto) 0.01 (0-0.2) K/uL Sodium (136-145) mmol/L Potassium (3.5-5.1) mmol/L Chloride (98-107) mmol/L Carbon Dioxide (21-32) mmol/L Anion Gap (3-11) BUN (7-18) mg/dl Creatinine (0.6-1.4) mg/dl Est Cr Clr Drug Dosing Est GFR ( Amer) Est GFR (Non-Af Amer) BUN/Creatinine Ratio (10-20) Glucose (70-99) mg/dl Calcium (8.5-10.1) mg/dl Total Bilirubin (0.2-1) mg/dl AST (15-37) U/L ALT (12-78) U/L Alkaline Phosphatase (45-117) U/L Total Protein (6.4-8.2) gm/dl Albumin (3.4-5.0) gm/dl Globulin (2.5-4.0) gm/dl Albumin/Globulin Ratio (0.9-2) Lipase (73-393) U/L TSH (0.300-4.500) uIu/ml Urine Color Yellow Urine Appearance Clear (Clear) Urine pH 7.0 (4.5-7.5) Ur Specific [place] 1.009 (1.000-1.030) Urine Protein Negative (Negative) Urine Glucose (UA) Negative (Negative) Urine Ketones Negative (Negative) Urine Blood Negative (Negative) Urine Nitrite Negative (Negative) Urine Bilirubin Negative (Negative) Urine Urobilinogen Negative (Negative) Ur Leukocyte Esterase Negative (Negative) Salicylates (2.8-20) mg/dl Urine Opiates Screen Neg (Neg) Ur Methadone, Qual Neg (Neg) Acetaminophen (10-30) ug/ml Urine Barbiturates Neg (Neg) Ur Phencyclidine (PCP) Neg (Neg) U Amphetamin/Meth Scrn Pos H (Neg) MDMA (Ecstasy) Screen Neg (Neg) U Benzodiazepines Scrn Neg (Neg) Ur Cocaine Metabolite Pos H (Neg) U Marijuana (THC) Screen Pos H (Neg) Ethyl Alcohol mg/dL (0-3) mg/dl 10/15/18 10/15/18 10/15/18 Range/Units 10:35 10:35 10:35 WBC (4.8-10.8) K/uL RBC (4.7-6.1) M/uL Hgb (14.0-18.0) g/dL Hct (42-52) % MCV (80-100) fL MCH (25-34) pg MCHC (32-36) g/dL RDW Std Deviation (36.4-46.3) fL RDW Coeff of Udrga (11.5-14.5) % Plt Count (130-400) K/uL MPV (7.4-10.4) fL Immature Gran % (Auto) % Neut % (Auto) % Lymph % (Auto) % [place] % (Auto) % Eos % (Auto) % Baso % (Auto) % Immature Gran # (Auto) (0.00-0.02) K/uL Neut # (Auto) (1.4-6.5) K/uL Lymph # (Auto) (1.2-3.4) K/uL [place] # (Auto) (0.11-0.59) K/uL Eos # (Auto) (0-0.5) K/uL Baso # (Auto) (0-0.2) K/uL Sodium 137 (136-145) mmol/L Potassium 4.0 (3.5-5.1) mmol/L Chloride 102 (98-107) mmol/L Carbon Dioxide 29 (21-32) mmol/L Anion Gap 6.0 (3-11) BUN 24 H (7-18) mg/dl Creatinine 1.54 H (0.6-1.4) mg/dl Est Cr Clr Drug Dosing Not Reportable Est GFR ( Amer) 57.2 Est GFR (Non-Af Amer) 49.4 BUN/Creatinine Ratio 15.7 (10-20) Glucose 84 (70-99) mg/dl Calcium 9.1 (8.5-10.1) mg/dl Total Bilirubin 1.5 H (0.2-1) mg/dl AST 65 H (15-37) U/L ALT 88 H (12-78) U/L Alkaline Phosphatase 137 H (45-117) U/L Total Protein 8.3 H (6.4-8.2) gm/dl Albumin 4.4 (3.4-5.0) gm/dl Globulin 3.9 (2.5-4.0) gm/dl Albumin/Globulin Ratio 1.1 (0.9-2) Lipase 50 L (73-393) U/L TSH 1.290 (0.300-4.500) uIu/ml Urine Color Urine Appearance (Clear) Urine pH (4.5-7.5) Ur Specific [place] (1.000-1.030) Urine Protein (Negative) Urine Glucose (UA) (Negative) Urine Ketones (Negative) Urine Blood (Negative) Urine Nitrite (Negative) Urine Bilirubin (Negative) Urine Urobilinogen (Negative) Ur Leukocyte Esterase (Negative) Salicylates 3.9 (2.8-20) mg/dl Urine Opiates Screen (Neg) Ur Methadone, Qual (Neg) Acetaminophen < 2 L (10-30) ug/ml Urine Barbiturates (Neg) Ur Phencyclidine (PCP) (Neg) U Amphetamin/Meth Scrn (Neg) MDMA (Ecstasy) Screen (Neg) U Benzodiazepines Scrn (Neg) Ur Cocaine Metabolite (Neg) U Marijuana (THC) Screen (Neg) Ethyl Alcohol mg/dL < 3.0 (0-3) mg/dl Imaging Data Radiologist's Impression: Radiology results as stated below per my review and the radiologist's interpretation: XR chest 1V portable CLINICAL HISTORY: Tachycardia COMPARISON STUDY: 07/06/2018 FINDINGS: The heart is normal in size. There is no failure. There is no focal pulmonary consolidation. There are no pleural effusions. There are old rib fractures.[ IMPRESSION: No active disease in the chest. Electronically signed by: Jose Villanueva M.D. 10/15/2018 10:[address] head/brain wo con CT DOSE: 537.48 mGy.cm HISTORY: Mental status change headache TECHNIQUE: Multiaxial CT images of the head were performed without the use of intravenous contrast. A dose lowering technique was utilized adhering to the principles of ALARA. Comparison: 07/02/2018 Findings: Unchanged mucous retention cyst posterior aspect right maxillary sinus. Sinuses are otherwise clear. The calvarium and skull base are intact. The ventricles and sulci are within normal limits. There is no mass, hematoma, midline shift, or acute infarct. Impression: No acute intracranial abnormality. Unchanged mucous retention cyst right maxillary sinus. The above report was generated using voice recognition software. It may contain grammatical, syntax or spelling errors. Electronically signed by: Keo Muir M.D. 10/15/2018 11:17 AM Blood Pressure Blood Pressure Findings: Normal blood pressure MDM Narrative Patient is a 58-year-old male who presents the ER brought in by police as he was found confused trying to get into a bar. He has an extensive history of alcoholism. On exam he is confused with pressured speech does appear to have a flight of ideas. Labs were obtained and showed a mild leukopenia with white c ount of 3000. There was a thrombocytopenia and a mild transaminitis consistent with alcoholism. Transaminitis is unchanged from previous. Bilirubin slightly elevated at 1.5. Lipase is normal. TSH was unremarkable. UA was negative. Tox was positive for amphetamines cocaine and marijuana. Alcohol was negative. He initially stated that he drank 3 days ago but then notes that he has not drank for a month. I do question if this confusion/delirium could be from alcohol withdrawal. He has been had to be intubated before in the past. CT head was negative. No signs of meningitis and encephalitis. Patient was sedated at bedside due to agitation with 2 separate doses of IV Ativan 2 mg api elliott and 10 mg of IM Haldol. On reevaluation he was still confused not able to follow conversation. Following this after discussion with Sadia as this gentleman does not have any extensive psychiatric history with the exception of one admission for psychosis we elected to discuss it with the hospitalist. We were able to track down his case finisher who notes that recently he has been become more agitated confused. Impression & Plan Altered mental status, Drug abuse Critical Care Time I have personally spent 35 minutes of critical care time in the direct management of this patient. This includes bedside care, interpretation of diagnostic studies, and testing, discussion with consultants, patient, and family members, and other required patient management activities. This 35 minutes is in excess of all separately billable procedures. Critical Care Time: Yes Total Critical Care Time: 35 Discharge Plan Visit Data Chief Complaint: Mental Health Evaluation Stated Complaint: MENTAL HEALTH EVALUATION ED Provider: Eliceo Tidwell Discharge Problem: Altered mental status, Drug abuse Patient Disposition: Being Evaluated by Hospitalist Forms Stand Alone Forms: My [facility] Prescriptions Prescriptions: No Action pantoprazole 20 mg Tablet,Delayed Release (Dr/Ec) 20 mg PO QAM RF: 0 vitamin B complex Tablet 2 tab PO QAM RF: 0 sumatriptan succinate 25 mg Tablet 2 tab PO UD PRN (Reason: Migraine Headache) RF: 0 metoprolol succinate 25 mg tablet extended release 24 hr 25 mg PO QAM RF: 0 gabapentin 300 mg capsule 300 mg PO TID RF: 0 Referrals Referrals: PCP,NO [Primary Care Provider] - Discharge Problem: Altered mental status Qualifiers: Altered mental status type: unspecified Qualified Code(s): R41.82 - Altered mental status, unspecified The scribe's documentation has been prepared under my direction and personally reviewed by me in its entirety. I confirm that the note above accurately reflects all work, treatment, procedures, and medical decision making performed by me.
[2018-10-15] MEDS ORDERED: ACETAMINOPHEN 325 MG TAB PO PRN (19:04)
[2018-10-15] MEDS ORDERED: LORazepam 1 MG/2 ML VIAL IV PRN (19:04)
[2018-10-15] MEDS ORDERED: LORazepam 2 MG/4 ML VIAL IV PRN (19:04)
[2018-10-15] MEDS ORDERED: LORazepam 3 MG/6 ML VIAL IV PRN (19:04)
[2018-10-15] MEDS ORDERED: ATIVAN IV ALCOHOL WITHDRAWL IV SCH (19:04)
[2018-10-15] MEDS ORDERED: GABAPENTIN 1200MG ALCOHOL WITHDRAWAL LOAD PO STA (19:04)
--- NOTE | 2018-10-15 19:13 | History & Physical Report ---
Date of Service October 15, 2018 Assessment & Plan (1) Altered mental status: (2) Drug intoxication: (3) Alcohol abuse: -Admit to telemetry -Patient brought to the ED by police after he was found to be wandering the streets of [place] where he apparently had walked into a bar and was found to be in a manic state -In the ED, urine drug screen positive for cocaine, methamphetamine, marijuana; alcohol level <3.0 -Patient with long-standing history of alcohol abuse/withdrawal, refusing treat ment in the past -History currently unobtainable from patient -Received Haldol 10 mg IM and lorazepam 2 mg IV x 2 in the ED -patient currently sedated however spontaneously awaking -Given history of alcohol abuse, will start patient on gabapentin protocol, banana bag, PRN Ativan (4) Elevated LFTs: -Mild elevation: Total bili 1.5, AST 65, ALT 88, alk phos 137 -Likely secondary to chronic alcohol use -Monitor LFTs -If worsening, consider GI consult (5) Hypotension: -Systolic BP 90s in the ED -Likely secondary to lorazepam and Haldol -Giving 1 L NSS bolus in the ED, will continue with NSS at 125cc/hour -Hold metoprolol (6) Seizure: -History of seizure disorder in the past -Unsure if patient has been taking prescribed Keppra -will resume Keppra at previously prescribed dose, 500 mg twice daily (7) Thrombocytopenia: -Likely secondary to alcohol use -Platelets 98K today -No signs of bleeding -Continue to monitor (8) PAF (paroxysmal atrial fibrillation): -Currently in NSR -Rate controlled on beta-fidencio, holding as above -Not anticoagulated secondary to history of alcohol abuse (9) GERD (gastroesophageal reflux disease): -Continue PPI (10) DVT prophylaxis: -SCDs secondary to thrombocytopenia (11) Discharge planning issues: -Patient has been offered rehab in the past however has declined several times -Case management consult History of Present Illness Chief Complaint: Altered mental status Primary Care Provider: Maggie Franks DO 58-year-old male who presents the ED with altered mental status. History is currently unobtainable from the patient. Apparently, earlier this morning, patient walked into a bar in [place] and was found to be agitated. And please call the police where they found the patient wandering down the street. Patient had reported a headache so he was brought to the ED for further evaluation. Upon arrival to the ER, patient was agitated and manic acting. Patient has history of alcohol abuse. Urine drug screen in the ED is positive for methamphetamine, cocaine, marijuana. While in the ER, patient received Benadryl 50 mg IV, Haldol 10 mg IM, 2 doses of lorazepam 2 mg IV, prochlorperazine 5 mg IV, IV folic acid, IV thiamine. At the time my exam, patient was sedated however spontaneously awoke. His speech is unintelligible. He is moving all extremities. He became hypotensive with systolic BP in the 90s and I ordered 1 L NSS bolus. Labs also show elevated creatinine at 1.5, elevated LFTs, platelets 98K. Allergies Allergy/AdvReac Type Severity Reaction Status Date / Time ibuprofen Allergy Unknown FACIAL Verified 09/23/18 15:47 SWELLING Home Medications Home Medications Medication Instructions Recorded Confirmed Type gabapentin 300 mg PO TID 06/27/18 10/15/18 History metoprolol succinate 25 mg PO QAM 06/27/18 10/15/18 History pantoprazole 20 mg PO QAM 08/06/18 10/15/18 History levetiracetam 500 mg PO BID 10/15/18 10/15/18 History Past Med/Surg History Medical History GERD (gastroesophageal reflux disease) (Chronic) Alcohol abuse (Chronic) Tobacco abuse (Chronic) History of traumatic brain injury (Chronic) ~45 YEARS AGO Seizure (Chronic) Thrombocytopenia (Chronic) PAF (paroxysmal atrial fibrillation) (Chronic) follows with Dr. Jackman Mood disorder (Chronic) Malnutrition related to chronic disease (Chronic) Surgical History History of herniorrhaphy (Chronic) UMBILICAL HERNIA (RIGHT ABOVE THE GROIN CENTER ABDOMEN) Family History Father Heart disease Mother Pancreatic cancer Social History Preferred Language: [place] Communication Ability: Effective Visual Impairment: No Limitations Applications Specialist Required: No Beliefs That Will Affect Care: None Current Living Situation: Alone Current Living Situation Comment: unable to report Other Information That Helps Us Care for You: No other: Russ Feels Safe at Home: Yes Safety Concerns: Feels Safe At This Time Smoking Status: Current every day smoker Tobacco Type: cigars Cigarettes Per Day: 1-2 cigars a day Do You Dip or Chew Tobacco: Yes Second Hand Exposure: Yes (parents smoked) Tobacco Cessation Education Requested by Patient: No Hx Alcohol Use: Yes (quit over a year ago) Alcohol type: beer Hx Substance Use: Yes substance use type: does not use Last Used Substance: Days (ago) Last Used Substance Other:: 2 Review of Systems Review of Systems: Unobtainable due to cognitive status Physical Exam Constitutional: WD/WN, vitals as above Eyes: PERRL, conjunctivae normal, anicteric sclerae ENMT: external ear and nose normal, oropharynx normal Respiratory: normal respiratory effort, lungs clear to auscultation Cardiovascular: Rate/Rhythm: regular rate and regular rhythm Vessels: normal peripheral pulses Extremities: no edema Gastrointestinal (Abdomen): normal bowel sounds, soft, nontender, no hepatosplenomegaly Musculoskeletal: Extremities: no cyanosis and no clubbing Unable to assess strength of extremities as patient will not follow commands/participate in exam Skin: no rashes, warm and dry Neurologic: moves all extremities; + not awake (Initially sedated/difficult to arouse however spontaneously awoke) Speech / Cognition: + abnormal speech (Garbled, unintelligible) Cranial Nerves: PERRL and normal facial strength Difficult to perform neurologic exam as patient will not follow commands/participate in exam Psychiatric: Orientation: alert and oriented to person; + not oriented to place and + not oriented to time Apperance: + disheveled Affect: + labile affect Insight: + poor insight Results & Data Vital Signs (Past 12 Hours) Vital Signs Pulse Pulse Resp BP BP Pulse Ox 10/15/18 18:04 66 20 98/69 L 96 10/15/18 17:26 68 22 91/64 L 95 10/15/18 17:03 73 22 108/62 93 10/15/18 15:02 78 22 96/74 L 95 10/15/18 14:01 80 17 92 10/15/18 14:00 80 15 102/68 91 10/15/18 13:38 91 10/15/18 13:31 103/65 103/65 10/15/18 13:25 84 19 95/67 L 93 10/15/18 13:23 95 10/15/18 13:22 95/67 L 93 10/15/18 10:32 75 18 140/86 94 10/15/18 10:13 75 16 134/86 94 10/15/18 10:00 95 10/15/18 09:06 102 H 20 144/77 H 97 Laboratory Results Laboratory Last Values WBC 3.06 K/uL (4.8-10.8) L 10/15/18 10:35 RBC 4.69 M/uL (4.7-6.1) L 10/15/18 10:35 Hgb 15.5 g/dL (14.0-18.0) 10/15/18 10:35 Hct 43.0 % (42-52) 10/15/18 10:35 MCV 91.7 fL (80-100) 10/15/18 10:35 MCH 33.0 pg (25-34) 10/15/18 10:35 MCHC 36.0 g/dL (32-36) 10/15/18 10:35 RDW Std Deviation 42.8 fL (36.4-46.3) 10/15/18 10:35 RDW Coeff of Durga 12.8 % (11.5-14.5) 10/15/18 10:35 Plt Count 98 K/uL (130-400) L 10/15/18 10:35 MPV 10.1 fL (7.4-10.4) 10/15/18 10:35 Immature Gran % (Auto) 0.0 % 10/15/18 10:35 Neut % (Auto) 59.6 % 10/15/18 10:35 Lymph % (Auto) 21.2 % 10/15/18 10:35 [place] % (Auto) 18.6 % 10/15/18 10:35 Eos % (Auto) 0.3 % 10/15/18 10:35 Baso % (Auto) 0.3 % 10/15/18 10:35 Immature Gran # (Auto) 0.00 K/uL (0.00-0.02) 10/15/18 10:35 Neut # (Auto) 1.82 K/uL (1.4-6.5) 10/15/18 10:35 Lymph # (Auto) 0.65 K/uL (1.2-3.4) L 10/15/18 10:35 [place] # (Auto) 0.57 K/uL (0.11-0.59) 10/15/18 10:35 Eos # (Auto) 0.01 K/uL (0-0.5) 10/15/18 10:35 Baso # (Auto) 0.01 K/uL (0-0.2) 10/15/18 10:35 Sodium 137 mmol/L (136-145) 10/15/18 10:35 Potassium 4.0 mmol/L (3.5-5.1) 10/15/18 10:35 Chloride 102 mmol/L (98-107) 10/15/18 10:35 Carbon Dioxide 29 mmol/L (21-32) 10/15/18 10:35 Anion Gap 6.0 (3-11) 10/15/18 10:35 BUN 24 mg/dl (7-18) H 10/15/18 10:35 Creatinine 1.54 mg/dl (0.6-1.4) H 10/15/18 10:35 Est Cr Clr Drug Dosing Not Reportable 10/15/18 10:35 Est GFR ( Amer) 57.2 10/15/18 10:35 Est GFR (Non-Af Amer) 49.4 10/15/18 10:35 BUN/Creatinine Ratio 15.7 (10-20) 10/15/18 10:35 Glucose 84 mg/dl (70-99) 10/15/18 10:35 Calcium 9.1 mg/dl (8.5-10.1) 10/15/18 10:35 Total Bilirubin 1.5 mg/dl (0.2-1) H 10/15/18 10:35 AST 65 U/L (15-37) H 10/15/18 10:35 ALT 88 U/L (12-78) H 10/15/18 10:35 Alkaline Phosphatase 137 U/L (45-117) H 10/15/18 10:35 Total Protein 8.3 gm/dl (6.4-8.2) H 10/15/18 10:35 Albumin 4.4 gm/dl (3.4-5.0) 10/15/18 10:35 Globulin 3.9 gm/dl (2.5-4.0) 10/15/18 10:35 Albumin/Globulin Ratio 1.1 (0.9-2) 10/15/18 10:35 Lipase 50 U/L (73-393) L 10/15/18 10:35 TSH 1.290 uIu/ml (0.300-4.500) 10/15/18 10:35 Urine Color Yellow 10/15/18 09:15 Urine Appearance Clear (Clear) 10/15/18 09:15 Urine pH 7.0 (4.5-7.5) 10/15/18 09:15 Ur Specific [place] 1.009 (1.000-1.030) 10/15/18 09:15 Urine Protein Negative (Negative) 10/15/18 09:15 Urine Glucose (UA) Negative (Negative) 10/15/18 09:15 Urine Ketones Negative (Negative) 10/15/18 09:15 Urine Blood Negative (Negative) 10/15/18 09:15 Urine Nitrite Negative (Negative) 10/15/18 09:15 Urine Bilirubin Negative (Negative) 10/15/18 09:15 Urine Urobilinogen Negative (Negative) 10/15/18 09:15 Ur Leukocyte Esterase Negative (Negative) 10/15/18 09:15 Salicylates 3.9 mg/dl (2.8-20) 10/15/18 10:35 Urine Opiates Screen Neg (Neg) 10/15/18 09:15 Ur Methadone, Qual Neg (Neg) 10/15/18 09:15 Acetaminophen < 2 ug/ml (10-30) L 10/15/18 10:35 Urine Barbiturates Neg (Neg) 10/15/18 09:15 Ur Phencyclidine (PCP) Neg (Neg) 10/15/18 09:15 U Amphetamin/Meth Scrn Pos (Neg) H 10/15/18 09:15 MDMA (Ecstasy) Screen Neg (Neg) 10/15/18 09:15 U Benzodiazepines Scrn Neg (Neg) 10/15/18 09:15 Ur Cocaine Metabolite Pos (Neg) H 10/15/18 09:15 U Marijuana (THC) Screen Pos (Neg) H 10/15/18 09:15 Ethyl Alcohol mg/dL < 3.0 mg/dl (0-3) 10/15/18 10:35 Diagnostic Findings CXR IMPRESSION: No active disease in the chest. Head CT Impression: No acute intracranial abnormality. Unchanged mucous retention cyst right maxillary sinus. Code Status & VTE Plan Code Status Unable to be discussed with patient at this time secondary to altered mental status. VTE Prophylaxis Plan VTE Prophylaxis will be ordered: Yes Supervising Physician Co-Signing Physician Notes Pt was seen and examined. Agreed with Dimple exam, assessment and plan. 58-year-old male with history of DT, alcohol abuse, seizure, thrombocytopenia, substance abuse presents to the ED with altered mental status. Pt was found wandering on the street after police was called on him for agitation at a bar. He was brought to the ER. His Alcohol level was <3, and his UDS was positive for cocaine, marijuana and amphetamine. Pt said that the last time he did drug was 4 days and and last time he drank alcohol was 2 days ago. He said that the reason he did not drink was because he had multiple episodes of vomiting yesterday. He said that he feels fine now. Denies any abdominal pain. His creatinine level 1.5, will continue IVF. Since pt has previous history of DT, will start on Librium BID. Continue ativan and gabapentin with alcohol protocol. Continue Thiamine and folic acid. will monitor closely for alcohol withdrawn. Continue seizure protocol. MD Parker
[2018-10-15] MEDS ORDERED: GABAPENTIN 600 MG TAB PO ONE (19:30)
[2018-10-15] MEDS: SODIUM CHLORIDE 0.9% 1000ML 1,000 ML IV SCH (20:09)
[2018-10-15] MEDS: levETIRAcetam 500 MG TAB PO SCH (20:10)
[2018-10-16] MEDS: SODIUM CHLORIDE 0.9% 1000ML 1,000 ML IV SCH (05:31)
[2018-10-16] MEDS ORDERED: GABAPENTIN 600 MG TAB PO SCH ×2 (06:00→22:00)
[2018-10-16 08:06] LABS: Albumin Level 3.5 gm/dl (3.4-5.0); BUN Creatinine Ratio 27.6 (10-20); Calcium 8.5 mg/dl (8.5-10.1); Creatinine Clr Calc Pharmacy 142.5 ml/min; Est GFR (African American) 122.1; Est GFR (Non-African American) 105.4; Potassium 3.6 mmol/L (3.5-5.1)
[2018-10-16] MEDS: levETIRAcetam 500 MG TAB PO SCH (08:13)
[2018-10-16 08:20] LABS: Bilirubin,Total 1.2 mg/dl (0.2-1); Globulin 3.5 gm/dl (2.5-4.0)
[2018-10-16] MEDS ORDERED: MULTI-VITAMIN INFUSION 10 ML, THIAMINE HCL 100 MG, FOLIC ACID 1 MG in SODIUM CHLORIDE 0... IV SCH (09:00)
[2018-10-16] MEDS ORDERED: PANTOprazole 40 MG TAB PO SCH (09:00)
--- NOTE | 2018-10-16 09:12 | Hospitalist Progress Note ---
Date of Service October 16, 2018 Assessment & Plan (1) Altered mental status: (2) Drug intoxication: (3) Alcohol abuse: -Patient brought to the ED by police after he was found to be wandering the streets of [place] where he apparently had walked into a bar and was found to be in a manic state -In the ED, urine drug screen positive for cocaine, methamphetamine, marijuana; alcohol level <3.0 Patient states he feels much better back to baseline Denies drink alcohol for the past 5 days Denies tremors, anxiety, hallucinations States he would like to be discharged today, signed out AGAINST MEDICAL ADVICE Patient advised to discontinue alcohol, illicit drugs Arrange follow-up with PCP for tomorrow October 17, 2018 at 11:25 AM, patient was emphasized to follow-up with PCP, he verbalized understanding and agreement Also discussed for his friends to call 911 immediately if with seizures, altered mental status (4) Elevated LFTs: -Mild elevation: Total bili 1.5, AST 65, ALT 88, alk phos 137 -Likely secondary to chronic alcohol use -Monitor LFTs (5) Hypotension: -Systolic BP 90s in the ED -Likely secondary to lorazepam and Haldol -Giving 1 L NSS bolus in the ED, will continue with NSS at 125cc/hour Blood pressure back to normal Monitor as an outpatient (6) Seizure: -History of seizure disorder in the past -Unsure if patient has been taking prescribed Keppra Continue usual Keppra 500 mg twice a day (7) Thrombocytopenia: -Likely secondary to alcohol use -Platelets 98K -No signs of bleeding -Continue to monitor as an outpatient (8) PAF (paroxysmal atrial fibrillation): -Currently in NSR -Rate controlled on beta-fidencio, holding as above -Not anticoagulated secondary to history of alcohol abuse (9) GERD (gastroesophageal reflux disease): -Continue PPI (10) DVT prophylaxis: -SCDs secondary to thrombocytopenia (11) Discharge planning issues: -Patient has been offered rehab in the past however has declined several times -Case management consult Subjective ff up wit altered mental status Notified by RN that patient would like to sign out AMA Seen patient at the bedside, awake alert oriented x3 States he feels fine overall Denies headache, dizziness, confusion, chest pain, shortness of breath, palpitations No abdominal pain, nausea vomiting, changes with bowel movements or urinary symptoms States his last alcohol drink was 5 days ago, admits to taking marijuana but no other substances States he would like to go home today right away because he needs to work Explained to patient that work-up and observation and treatment is not completed By leaving, he is high risk to develop deterioration of medical condition, including possible seizures, including By staying, work-up, and treatment will be completed and will minimize above risks Patient was able to verbalize benefits and risks of leaving AGAINST MEDICAL ADVICE Review of Systems Review of Systems: All systems reviewed & are unremarkable except as noted in HPI & below Physical Exam Physical Exam: General- oriented x 3, not in distress, speaks in sentences with no effort or accessory muscle use Poor hygiene, unkempt Head- atraumatic Eyes- PERRL, EOMI, anicteric ENT- oropharynx clear Neck- supple, no JVD, no adenopathy, no thyromegaly; carotids +2/2, no bruits appreciated Lungs- clear to auscultation bilaterally, no rales/wheezes Heart- normal rate, regular rhythm; no murmurs Abdomen- normal bowel sounds, nondistended, soft, nontender, no masses or hepatosplenomegaly Extremities- no pretibial edema, no calf tenderness; peripheral pulses intact Neuro- alert, oriented x 3; CN 2-12 grossly intact; motor 5/5 bilaterally;sensation 100% on all extremities; no other gross focal neurologic deficits Skin- warm & dry Results & Data Vital Signs (Past 12 Hours) Vital Signs Temp Pulse Pulse Resp BP BP Pulse Ox 10/16/18 08:58 36.9 C 90 18 103/73 126/84 97 10/16/18 07:09 36.9 C 90 18 126/84 97 10/16/18 03:50 36.5 C 68 18 103/73 95 10/16/18 00:23 78 10/16/18 00:15 36.5 C 78 16 110/70 94
--- NOTE | 2018-10-16 18:31 | Discharge Summary ---
Date of Service October 16, 2018 Admission HPI Per Admitting Provider 58-year-old male who presents the ED with altered mental status. History is currently unobtainable from the patient. Apparently, earlier this morning, patient walked into a bar in [place] and was found to be agitated. And please call the police where they found the patient wandering down the street. Patient had reported a headache so he was brought to the ED for further evaluation. Upon arrival to the ER, patient was agitated and manic acting. Patient has history of alcohol abuse. Urine drug screen in the ED is positive for methamphetamine, cocaine, marijuana. While in the ER, patient received Benadryl 50 mg IV, Haldol 10 mg IM, 2 doses of lorazepam 2 mg IV, prochlorperazine 5 mg IV, IV folic acid, IV thiamine. At the time my exam, patient was sedated however spontaneously awoke. His speech is unintelligible. He is moving all extremities. He became hypotensive with systolic BP in the 90s and I ordered 1 L NSS bolus. Labs also show elevated creatinine at 1.5, elevated LFTs, platelets 98K. Admission Exam Per Admitting Provider Constitutional: WD/WN, vitals as above Eyes: PERRL, conjunctivae normal, anicteric sclerae ENMT: external ear and nose normal, oropharynx normal Respiratory: normal respiratory effort, lungs clear to auscultation Cardiovascular: Rate/Rhythm: regular rate and regular rhythm Vessels: normal peripheral pulses Extremities: no edema Gastrointestinal (Abdomen): normal bowel sounds, soft, nontender, no hepatosplenomegaly Musculoskeletal: Extremities: no cyanosis and no clubbing Unable to assess strength of extremities as patient will not follow commands/participate in exam Skin: no rashes, warm and dry Neurologic: moves all extremities; + not awake (Initially sedated/difficult to arouse however spontaneously awoke) Speech / Cognition: + abnormal speech (Garbled, unintelligible) Cranial Nerves: PERRL and normal facial strength Difficult to perform neurologic exam as patient will not follow commands/participate in exam Psychiatric: Orientation: alert and oriented to person; + not oriented to place and + not oriented to time Apperance: + disheveled Affect: + labile affect Insight: + poor insight Principal Diagnosis Altered mental status likely secondary to illicit drug use Discharge Exam General- oriented x 3, not in distress, speaks in sentences with no effort or accessory muscle use Poor hygiene, unkempt Head- atraumatic Eyes- PERRL, EOMI, anicteric ENT- oropharynx clear Neck- supple, no JVD, no adenopathy, no thyromegaly; carotids +2/2, no bruits appreciated Lungs- clear to auscultation bilaterally, no rales/wheezes Heart- normal rate, regular rhythm; no murmurs Abdomen- normal bowel sounds, nondistended, soft, nontender, no masses or hepatosplenomegaly Extremities- no pretibial edema, no calf tenderness; peripheral pulses intact Neuro- alert, oriented x 3; CN 2-12 grossly intact; motor 5/5 bilaterally;sensation 100% on all extremities; no other gross focal neurologic deficits Skin- warm & dry Discharge Data Allergies Allergy/AdvReac Type Severity Reaction Status Date / Time ibuprofen Allergy Unknown FACIAL Verified 09/23/18 15:47 SWELLING Consultations 10/15/18 16:52 ED Decision to Admit Stat 10/15/18 19:04 Consult Case Management - Discharge Planning Routine Ordered Studies 10/15/18 09:42 CT head/brain wo con Stat Findings: Unchanged mucous retention cyst posterior aspect right maxillary sinus. Sinuses are otherwise clear. The calvarium and skull base are intact. The ventricles and sulci are within normal limits. There is no mass, hematoma, midline shift, or acute infarct. Impression: No acute intracranial abnormality. Unchanged mucous retention cyst right maxillary sinus. Hospital Course (1) Altered mental status: (2) Drug intoxication: (3) Alcohol abuse: -Patient brought to the ED by police after he was found to be wandering the streets of [place] where he apparently had walked into a bar and was found to be in a manic state -In the ED, urine drug screen positive for cocaine, methamphetamine, marijuana; alcohol level <3.0 Patient states he feels much better back to baseline Denies drink alcohol for the past 5 days Denies tremors, anxiety, hallucinations States he would like to be discharged today, signed out AGAINST MEDICAL ADVICE Patient advised to discontinue alcohol, illicit drugs Arrange follow-up with PCP for tomorrow October 17, 2018 at 11:25 AM, patient was emphasized to follow-up with PCP, he verbalized understanding and agreement Also discussed for his friends to call 911 immediately if with seizures, altered mental status (4) Elevated LFTs: -Mild elevation: Total bili 1.5, AST 65, ALT 88, alk phos 137 -Likely secondary to chronic alcohol use -Monitor LFTs (5) Hypotension: -Systolic BP 90s in the ED -Likely secondary to lorazepam and Haldol -Giving 1 L NSS bolus in the ED, will continue with NSS at 125cc/hour Blood pressure back to normal Monitor as an outpatient (6) Seizure: -History of seizure disorder in the past -Unsure if patient has been taking prescribed Keppra Continue usual Keppra 500 mg twice a day (7) Thrombocytopenia: -Likely secondary to alcohol use -Platelets 98K -No signs of bleeding -Continue to monitor as an outpatient (8) PAF (paroxysmal atrial fibrillation): -Currently in NSR -Rate controlled on beta-fidencio, holding as above -Not anticoagulated secondary to history of alcohol abuse (9) GERD (gastroesophageal reflux disease): -Continue PPI (10) DVT prophylaxis: -SCDs secondary to thrombocytopenia (11) Discharge planning issues: -Patient has been offered rehab in the past however has declined several times -Case management consult Total Time Total Time Spent Total Time Spent (In Minutes): 45 minutes Discharge Plan Discharge Items Patient Disposition: Against Medical Advice Driving/Machine Use Comment: NO DRIVING; FOLLOW UP WITH PCP DR. FINE TOMORROW 10/17/18 AT 11:25AM Diet: Heart Healthy Admission Data Admit Date/Time: 10/15/18 17:37 Service: Telemetry Other DC Date/Time DO NOT enter until pt leaves facility: 10/16/18 09:08
[2018-10-17 12:21] LABS: Amphetamine Urine, Confirm NEGATIVE NG/ML (CUTOF=250); Cocaine, Urine 985 NG/ML (CUTOFF=100); Marijuana Quant, GCMS Urine 146 NG/ML (CUTOFF=5)
[2018-10-18] MEDS ORDERED: GABAPENTIN 600 MG TAB PO SCH
[2018-10-19] MEDS ORDERED: GABAPENTIN 600 MG TAB PO SCH (12:00)
== END 2018-10-16 09:08 | disposition left against medical advice (07) | DRG 894 ==
LOC: ED 08:58 → 2S 17:37

== ENCOUNTER 2018-10-20 20:35 | Inpatient (IN) ==
[2018-10-20] MEDS ORDERED: MULTI-VITAMIN INFUSION 10 ML, THIAMINE HCL 100 MG, FOLIC ACID 1 MG in SODIUM CHLORIDE 0... IV SCH (21:45)
[2018-10-20] MEDS ORDERED: LORazepam 2 MG/4 ML VIAL IV STA (22:14)
[2018-10-20 22:20] LABS: Troponin I < 0.015 ng/ml (0-0.045)
[2018-10-20] MEDS ORDERED: DOXYCYCLINE HYCLATE 100 MG in DEXTROSE 5% 100 ML IV STA (23:28)
--- NOTE | 2018-10-20 23:33 | History & Physical Report ---
Date of Service October 20, 2018 Assessment & Plan (1) Chest pain: Secondary to complicated bronchitis, no sepsis Rule out PE with abnormal d-dimer Seizure disorder Uncontrolled Likely secondary to poor compliance with regimen hypertension, stable PAF, NSR, not on anticoagulation secondary to fall risk /alcoholism chronic thrombocytopenia mood disorder, suboptimal, possible suicidality ongoing tobacco/alcohol abuse OBS Medical telemetry CT chest PE study Doxycycline for complicated bronchitis IV Keppra load followed by regular home twice daily dosing Neurology consult RE uncontrolled seizures Psych consult RE possible suicidality DT precautions Nicotine patch PT OT eval Social service RE discharge planning DVT prophylaxis SCDs RE thrombocytopenia Full code History of Present Illness All Chief Complaint: Chest pain, S OB, uncontrolled seizures Primary Care Provider: Dr. Franks History obtained from patient and records. Medical history significant for hypertension, PAF, chronic thrombocytopenia, mood disorder, seizure disorder, ongoing tobacco/alcohol abuse. Recent confinement last week for altered mental status, ARF. Patient seen at all a few days ago for suicidality. Last few days noted junky cough symptoms associated with pleuritic chest pain going to his head and shortness of breath. Seizures uncontrolled as per patient. Patient claims he had 3 seizures at home yesterday. Claims to be compliant with home gabapentin, thinks he may have run out of Keppra. Patient seen at the ER yesterday afternoon for complaints but left AGAINST MEDICAL ADVICE. He returned to the ER later last night after feeling cold in his attempt to walk back home to [place] from the hospital. Patient thinks he is going to have another seizure. At the ER, patient verbalized to manager estate that he does not feel safe at home having loaded firearms. 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 Beliefs That Will Affect Care: None Current Living Situation: Other Current Living Situation Comment: FRIEND other: Russ Feels Safe at Home: Yes Safety Concerns: Feels Safe At This Time Smoking Status: Current every day smoker Tobacco Type: cigarettes Cigarettes Per Day: 20 Second Hand Exposure: Yes (parents smoked) Hx Alcohol Use: Yes Alcohol type: beer Hx Substance Use: Yes substance use type: marijuana Last Used Substance: Days (ago) Review of Systems Review of Systems: As per HPI, all 10 systems reviewed, all other ROS negative Physical Exam Physical Exam: GENERAL: Slightly anxious and uncomfortable , no respiratory distress SKIN: Pallor , warm HEENT: Pale palpebral conjunctivae, no ptosis, dry buccal mucosa NECK : Supple, no tenderness CHEST : Decreased effort , no tenderness HEART : RRR, no obvious murmurs ABDOMEN: Some distention, no tenderness EXTREMITIES : No LE swelling/tenderness, no other conspicuous deformities noted NEUROLOGIC : Coherent, no facial asymmetry, somewhat tremulous Results & Data Vital Signs (Past 12 Hours) Vital Signs Temp Pulse Resp BP BP Pulse Ox 10/20/18 22:09 18 140/72 98 10/20/18 22:06 98 10/20/18 20:39 36.6 C 86 20 109/74 97 Laboratory Results Laboratory Results Troponin I < 0.015 ng/ml (0-0.045) 10/20/18 21:47 Lipase 211 U/L (73-393) 10/20/18 21:47 Ethyl Alcohol mg/dL 204.6 mg/dl (0-3) H 10/20/18 21:47 Diagnostic Findings 10/20/2018 imaging results as follows Chest x-ray: No active disease CT head: No acute renal findings Cervical spine CT: No acute fracture/traumatic subluxation EKG as per my interpretation: Rate 80, NSR no ischemic (1) Chest pain Chest pain type: unspecified Qualified Code(s): R07.9 - Chest pain, unspecified
[2018-10-20] MEDS ORDERED: LORazepam 2 MG/4 ML VIAL IV PRN (23:40)
[2018-10-20] MEDS ORDERED: LORazepam 3 MG/6 ML VIAL IV PRN (23:40)
[2018-10-20] MEDS ORDERED: ACETAMINOPHEN 325 MG TAB PO PRN (23:40)
[2018-10-20] MEDS ORDERED: LORazepam 1 MG/2 ML VIAL IV PRN ×2 (23:40)
[2018-10-20] MEDS ORDERED: IPRATROPIUM BROMIDE NEB SOLN 0.02% 2.5 ML VIAL INH PRN (23:45)
[2018-10-20] MEDS ORDERED: ATIVAN IV ALCOHOL WITHDRAWL IV SCH (23:45)
[2018-10-20] MEDS ORDERED: LEVALBUTEROL 1.25MG/0.5ML NEB INH PRN (23:45)
[2018-10-20] MEDS ORDERED: PROMETHAZINE HCL 12.5 MG in SODIUM CHLORIDE 0.9% 50 ML IV PRN (23:45)
[2018-10-20] MEDS ORDERED: XOPENEX/ATROVENT 1.25mg/0.5MG NEB COMBO NEB PRN (23:45)
[2018-10-20] MEDS ORDERED: NSS + 20MEQ KCL 20 MEQ/1,000 ML BAG IV ONE (23:49)
[2018-10-20] MEDS: NICOTINE 21 MG/24 HR TDSY TD SCH (23:49)
[2018-10-21 00:04] LABS: D Dimer 660 ug/L FEU (0-500)
[2018-10-21] MEDS: GABAPENTIN 300 MG CAP PO SCH ×4 (01:33→20:54)
--- NOTE | 2018-10-21 01:41 | Emergency Department Note ---
Entered by Azucena Haji acting as a scribe for Andrea Guzman MD History of Present Illness General Chief complaint: Seizure Stated complaint: SEIZURES, CONFUSED, CHEST PAIN Time Seen by Provider: 10/20/18 20:53 Source: patient Limitations: no limitations History of Present Illness Provider complaint: seizure Onset (ago): hour(s) Location: head Maximum Pain Intensity: 9 Associated symptoms: + chest pain and + headaches The patient is a 58 year old male who presents to the Emergency Room with complaints of a seizure that occurred prior to arrival while he was trying to walk home from the ED and forgot where he was. The patient left the ED AMA prior to arrival. The patient states that he has a headache and chest pain. The patient states that he has a history of seizures and states that he takes metoprolol. The patient states that he only drank 2 beers today. The patient denies any SI. The patient states that he doesn't want to go home because he keeps blacking out and he lives by himself. The patient states that he smokes marijuana occassionally. 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 and A total of 10 systems reviewed and were otherwise negative Physical Exam Vital Signs Vital Signs - 24 hr 10/20/18 20:39 10/20/18 22:06 10/20/18 22:09 Temperature 36.6 C Temperature Source Oral Sepsis Recent Fever Within 48 Hours No Sepsis New/Unexplained Change in Mental Status No Sepsis Action Taken by Nursing No Action Required Pulse Rate 86 Pulse Rate [Right Finger] Pulse Rhythm Regular Pulse Rhythm [Right Finger] Pulse Strength Normal Pulse Strength [Right Finger] Respiratory Rate 20 18 Respiratory Effort / Characteristics Non-Labored Spontaneous Non-Labored Spontaneous Respiratory Depth Normal Normal Respiratory Pattern Regular Blood Pressure 109/74 Blood Pressure [Right Arm] 140/72 Blood Pressure Mean 85 Blood Pressure Mean [Right Arm] 94 Blood Pressure Position Sitting Blood Pressure Position [Right Arm] Pulse Oximetry 97 98 98 Oxygen Delivery Method Room Air Room Air Room Air 10/20/18 23:50 10/21/18 01:09 Temperature 36.8 C Temperature Source Oral Sepsis Recent Fever Within 48 Hours Sepsis New/Unexplained Change in Mental Status Sepsis Action Taken by Nursing Pulse Rate Pulse Rate [Right Finger] 95 H 85 Pulse Rhythm Pulse Rhythm [Right Finger] Regular Regular Pulse Strength Pulse Strength [Right Finger] Normal Normal Respiratory Rate 18 16 Respiratory Effort / Characteristics Non-Labored Spontaneous Non-Labored Spontaneous Respiratory Depth Normal Normal Respiratory Pattern Regular Blood Pressure Blood Pressure [Right Arm] 101/70 113/72 Blood Pressure Mean Blood Pressure Mean [Right Arm] 80 85 Blood Pressure Position Blood Pressure Position [Right Arm] Lying Pulse Oximetry 96 95 Oxygen Delivery Method Room Air Room Air General: Non-ill appearing middle-aged male in no acute distress. Mildy intoxicated. HEENT: Normal cephalic atraumatic. Pupils are equal round and reactive to light. Extraocular movements are intact. Oropharynx is pink with moist mucous membranes. No swelling of the mouth lips or tongue. Neck: Supple with a midline trachea. No meningeal signs or stiffness, no JVD or bruits. No Stridor. Chest: Clear to auscultation bilaterally. No wheezes or rhonchi. No increased work of breathing. Heart: regular rate and rhythm. Abdomen: Soft nontender, nondistended without rebound guarding or rigidity. Extremities: No cyanosis clubbing or edema. No calf tenderness or asymmetry Spine/Back. Non tender to palpation. No CVA tenderness Skin: Good turgor without rashes. Neurologic exam: Cranial nerves two through 12 are intact. Motor and sensation are intact and symmetrical throughout. No tremor. Psych: Patient denies SI or HI initially. Course 2053: The patient was evaluated in room B6, and a complete history and physical examination were performed. 2213: I checked on the patient and he has shakiness but denies withdrawing from alcohol. The patient agrees to receive 2 Ativan. 2237: I discussed the patient's case with Dr. Brigette Brewer Hospitalist who will evaluate the patient for further hospitalization. Consultations Consultation #1: Dr. Brigette Brewer Hospitalist Time: 22:38 Administered Medications Doxycycline Hyclate 100 mg/ (Dextrose) 110 mls @ 50 mls/hr IV NOW STA Stop: 10/21/18 01:39 Last Admin: 10/20/18 23:49 Dose: 50 mls/hr Documented by: [id number] Nicotine (Nicoderm Cq) 21 mg TD QAM KAYLAN Stop: 11/19/18 23:29 Last Admin: 10/20/18 23:49 Dose: 21 mg Documented by: [id number] Discontinued Medications Multivitamins 10 ml/ Thiamine HCl 100 mg/ Folic Acid 1 mg/Sodium Chloride 1,011.2 mls @ 1,011.2 mls/hr IV .Q1H KAYLAN Stop: 10/20/18 22:44 Last Infusion: 10/20/18 23:19 Dose: 0 mls/hr Documented by: [id number] Admin: 10/20/18 22:07 Dose: 1,011.2 mls/hr Documented by: [id number] Lorazepam (Ativan) 2 mg in 4 mls @ 4 mls/min IV NOW STA Stop: 10/20/18 22:15 Last Admin: 10/20/18 22:20 Dose: 4 mls/min Documented by: [id number] Medical Decision Making Differential Diagnosis Differential Diagnosis: acute coronary artery syndrome, syncope, seizure, alcohol intoxication, alcohol abuse, alcohol withdrawal, electrolyte or metabolic abnormality. Medical Records Attestation: I reviewed the patient's medical records. Home Medications Current Medication List: was personally reviewed by me Laboratory Data Attestation: I reviewed the patient's lab results. Lab Results 10/20/18 10/20/18 10/20/18 Range/Units 21:47 21:47 23:29 D-Dimer 660 H* (0-500) ug/L FEU Troponin I < 0.015 (0-0.045) ng/ml Lipase 211 (73-393) U/L Ethyl Alcohol mg/dL 204.6 H (0-3) mg/dl ECG Data Attestation: I personally reviewed and interpreted this ECG as follows: Indication: chest pain Rate (beats per minute): 78 Rhythm: normal sinus Findings: no acute ischemic change Blood Pressure Blood Pressure Findings: Normal blood pressure MDM Narrative This patient comes in as described above. He was seen less than a few hours ago by Dr. Birch. Dr. Birch ordered a full work-up and the patient had this started but then left AMA. He apparently wandered out and down to the end of the road and somehow was found wandering around in the hospital. They brought him back to the ER. He is cooperative and says he wants to be admitted to the hospital he tells me he does have been having chest pain as well as seizures. It sounds like he has not been having seizures per se but is getting confused. This is coincides with him drinking as well. He does drink alcohol heavily and is difficult to get a reliable history it seems that when I talk to him he changes his story frequently. He does not appear acutely ill he appears mildly intoxicated but is cooperative with questioning. There is no external signs of trauma. I have reviewed Dr. Birch's work-up which was done less than a couple hours ago and besides a blood alcohol being elevated was unremarkable. I did repeat EKG as well as some of the blood work. His troponin was again negative and his EKG was unchanged from earlier. I also did a blood alcohol and he still in the 200s. I gave him an IV banana bag as well. While he was here, I had her bilingual patient support caseworker see him and he voiced to her that he had suicidal ideations and thoughts. He denied them to me initially. He has been seen here several times recently and has had times when he says he wants to hurt himself and then other times where he says he does not. I do think he needs to be admitted/observed to the hospital for further evaluation of chest pain and these episodes where he says he is passing out. At this point, he does not appear to be withdrawing and he was getting may be a little shaky so I gave him Ativan 2 mg IV and he was sleeping comfortably with this. I wanted to prevent withdrawal. I have consulted Dr. Benjamin, who saw the patient ER and will admit/observe him for these measures. Impression & Plan Alcohol abuse, Chest pain, Seizure, Altered mental status Discharge Plan Visit Data *Final* Discharge Date/Time: 10/21/18 00:20 Chief Complaint: Seizure Stated Complaint: SEIZURES, CONFUSED, CHEST PAIN ED Provider: Andrea Guzman Discharge Problem: Alcohol abuse, Chest pain, Seizure, Altered mental status Patient Disposition: Admitted As Inpatient Discharge Instructions Interventions: ED Discharge Assessment Last Done: 10/21/18 00:20 Discharge Problem: Chest pain Qualifiers: Chest pain type: other chest pain Qualified Code(s): R07.89 - Other chest pain Altered mental status Qualifiers: Altered mental status type: unspecified Qualified Code(s): R41.82 - Altered mental status, unspecified The scribe's documentation has been prepared under my direction and personally reviewed by me in its entirety. I confirm that the note above accurately reflects all work, treatment, procedures, and medical decision making performed by me.
[2018-10-21] MEDS ORDERED: OPTIRAY 320 125ml IV PRN (02:03)
--- NOTE | 2018-10-21 06:38 | CT Scan Report ---
CT angio chest PE protocol CT DOSE: 493.39 mGy.cm HISTORY: Chest pain. Dyspnea. PE TECHNIQUE: Multiaxial CT images of the chest were performed following the intravenous administration of contrast to evaluate the pulmonary arteries. Maximal intensity projection images were also obtaine d. A dose lowering technique was utilized adhering to the principles of ALARA. COMPARISON STUDY: 06/27/2018 FINDINGS: There is a normal caliber thoracic aorta with no evidence for dissection. There is no evide nce for pulmonary embolus. No pleural effusions. No pneumothorax. The liver and spleen are unremarkab le. No mediastinal or hilar lymphadenopathy. The central airways are patent. The lungs are clear. IMPRESSION: No evidence for pulmonary embolus. Mild peribronchial prominence The above report was generated using voice recognition software. It may contain grammatical, syntax or spelling errors. Electronically signed by: Keo Muir M.D. 10/21/2018 6:37 AM
[2018-10-21 07:27] LABS: Hematocrit (blood only) 36.4 % (42-52); Hemoglobin 12.9 g/dL (14.0-18.0); Mean Corpuscular Hgb Conc 35.4 g/dL (32-36); Mean Corpuscular Volume 92.2 fL (80-100); RDW Coefficient of Variation 12.4 % (11.5-14.5); RDW Standard Deviation 42.4 fL (36.4-46.3); Red Blood Count 3.95 M/uL (4.7-6.1)
[2018-10-21 07:35] LABS: Mean Platelet Volume 9.8 fL (7.4-10.4); Platelet Count 88 K/uL (130-400)
[2018-10-21 07:59] LABS: Basophils # (auto) 0.01 K/uL (0-0.2); Basophils % (auto) 0.4 %; Eosinophils # (auto) 0.04 K/uL (0-0.5); Eosinophils % (auto) 1.7 %; Giant Platelets 1+; Lymphocytes % (auto) 41.7 %; Monocytes # (auto) 0.28 K/uL (0.11-0.59); Monocytes % (auto) 11.7 %; Neutrophils # (auto) 1.07 K/uL (1.4-6.5); Neutrophils % (auto) 44.5 %
[2018-10-21 08:04] LABS: Alanine Aminotransferase 136 U/L (12-78); Albumin Level 3.3 gm/dl (3.4-5.0); Aspartate Aminotransferase 86 U/L (15-37); BUN Creatinine Ratio 7.6 (10-20); Blood Urea Nitrogen 4 mg/dl (7-18); Calcium 8.5 mg/dl (8.5-10.1); Carbon Dioxide 24 mmol/L (21-32); Chloride 109 mmol/L (98-107); Creatinine Clr Calc Pharmacy 193.9 ml/min; Est GFR (African American) 139.4; Est GFR (Non-African American) 120.3; Glucose 74 mg/dl (70-99); Potassium 3.8 mmol/L (3.5-5.1); Sodium 139 mmol/L (136-145)
[2018-10-21 08:08] LABS: Alkaline Phosphatase 114 U/L (45-117); Bilirubin,Total 0.5 mg/dl (0.2-1); Globulin 3.2 gm/dl (2.5-4.0); Total Protein 6.5 gm/dl (6.4-8.2); Troponin I < 0.015 ng/ml (0-0.045)
[2018-10-21] MEDS: METOPROLOL SUCC 25MG EXT REL TAB PO SCH (08:42)
[2018-10-21] MEDS: DOXYCYCLINE HYCLATE 100 MG CAP PO SCH ×2 (08:42→20:54)
[2018-10-21] MEDS: PANTOprazole 40 MG TAB PO SCH (08:42)
[2018-10-21] MEDS: levETIRAcetam 500 MG TAB PO SCH ×2 (08:42→20:54)
[2018-10-21] MEDS: MULTIVITAMIN TAB PO SCH (08:43)
[2018-10-21] MEDS: THIAMINE HCL 100 MG TAB PO SCH (08:43)
[2018-10-21] MEDS: FOLIC ACID 1 MG TAB PO SCH (08:43)
[2018-10-21] MEDS: NICOTINE 21 MG/24 HR TDSY TD SCH (08:44)
[2018-10-21] MEDS: OXYCODONE HCL IR 5 MG TAB (IMMEDIATE RELEASE) PO PRN ×3 (08:50→20:58)
[2018-10-21] MEDS ORDERED: levETIRAcetam 500 MG TAB PO SCH (09:00)
--- NOTE | 2018-10-21 12:46 | CT Scan Report ---
CT head/brain wo con CLINICAL HISTORY: Head pain status post trauma COMPARISON STUDY: 10/20/2018 TECHNIQUE: Axial CT of the brain is performed from the vertex to the skull base. IV contrast was not administered for this examination. A dose lowering technique was utilized adhering to the principles of ALARA. CT DOSE: 614.27 mGy.cm FINDINGS: No intra or extra-axial mass lesions are visualized. There is no CT evidence of acute cortical infarc tion. There is no evidence of midline shift. There is no acute hemorrhage. No calvarial fractures ar e visualized. There are patchy white matter hypodensities likely on a small vessel basis. There are atrophic change s present. There is no evidence of pathologic ventricular dilatation. There is a partially visualized right and exercise retention cyst. IMPRESSION: No acute intracranial findings Electronically signed by: Jose Villanueva M.D. 10/21/2018 12:45 PM
--- NOTE | 2018-10-21 13:24 | Psychiatric Consultation ---
Date of Consultation October 21, 2018 Impression / Recommendations Impression 58-year-old male admitted medically due to shortness of breath, chest pain, and ongoing seizure behavior. Psychiatric consultation requested to assess for possible suicidality. Patient does admit to previous episodes of suicidal thoughts, with concern for firearms remaining in his home. At time of assessment patient denies suicidality, and adamantly denies that he would act on thoughts should he be discharged. Patient has requested that his older brother remove the firearms from his home, would be beneficial to confirm this prior to discharge given the patient some concerns. He reports meeting with his case picker every 2 weeks, and is agreeable to signing an GANGA to allow us to gather collateral information and ensure there are no safety concerns prior to discharge. Patient does present with pressured speech and expansive mood. Timing of symptoms reported are not clearly consistent with sam, and also need to consider the patient's long history of alcohol use/abuse when considering diagnoses. Patient is unaware of formal psychiatric diagnosis, and does not believe he has been diagnosed with bipolar disorder previously. Present concern is for suicidality, which patient denies. Given reports provided by patient, there is not sufficient criteria to suggest involuntary psychiatric admission. Patient does not feel that he requires inpatient psychiatric treatment at this time. We will plan to gather collateral information from case picker as well as patient's brother to ensure there are no additional safety concerns. Would suggest keeping 302 petitioning statement on the patient's chart in the case that further information should be revealed. However, should reports remain unchanged, inpatient psychiatric admission would not be recommended. Dr. Brenda Valero was directly involved in review and discussion of the patient's case and participated in medical decision making regarding treatment recommendations. Risk Factors Assessment Male: Yes : Yes Do You Have Access To A Gun?: No (requested brother remove firearms from his home) Health Problems: Yes Substance Use Disorders: Yes Previous Attempt: No Family History of Suicide: No Previous Psychiatric Hospitalization: No Hopelessness: No Protective Factors Assessment Caodaism Beliefs: Yes : No Responsible for Young Children: No Employed: No Stable Relationships: Yes Supportive Family: Yes Good Rapport with Provider: Yes (case picker) CPT Code Initial Consultation: 76836 Psych History Identifying Data 58-year-old male admitted medically on 10/20/18, following a previous hospitalization from 10/15/18 - 10/17/11 in which he left AMA. Patient was initially admitted for altered mental status, drug intoxication, and alcohol abuse has a history - seizure disorder and compliance with medications unknown. Patient is currently admitted due to chest pain, shortness of breath, and uncontrolled seizures. Psychiatric consultation is requested to assess for possible suicidality. 302 petitioning statement was completed by case management and is on patient's chart. Information is gathered from hospital documentation and the patient himself, the combination of which seems to be reliable. Chief Complaint "I have been having major seizures. I am not ready to go home, I'm afraid of the falls." History of Present Illness Stuart Pichardo is a 58-year-old male admitted medically on 10/20/2018 for reports of chest pain, shortness of breath, and uncontrollable seizures. Patient has a PMH of alcohol abuse, GERD, HTN, and drug intoxications. On admission, patient's BAL was 267.4 mg/dL. It was reported the patient was afraid to go home due to having several firearms at his place of residence. Psychiatric consultation was requested to assess possible suicidality, given fear of returning home with firearms present. Patient's case was reviewed with psychiatric liaison nurse, and patient was seen on psychiatric consult service by this provider. Patient reports significant concern regarding his ongoing seizure activity. He states that he does not feel ready to return home as he is concerned about the falls he has been having. He does report the possibility of a friend, "Arnold", staying with him for a period of time, which makes patient feel more comfortable about the idea of discharge. He continues to report that he does not feel ready to go and is hoping to stay for a few more days on the medical floor. When queried about mood, the patient states his mood has been "depressed" prior to admissionhe states "depressed before, but now I am happy that I am here." Patient states he has low mood "10-20% of the time", but states her mood generally last for 15-20 minutes "then I pop out of it." The patient does report passive suicidality episodically for 3-6 months. Patient states that he has already asked his older brother to remove the weapons from his home. He states that at this time the only plan considered would be to "shoot myself." He states that suicide is not an option for him as it is "against my latter-day, but the cowards way out." Patient states that since being admitted to the hospital he has not had any suicidal thoughts reporting "I could not go through with it, I would not want to go to hell" and "killing myself is out of the question." Patient reports establish care with Mónica Iverson, his case picker through [facility]. He states "she does everything, she talks to me, she does therapy, she really good to me." Patient does get this provider permission to reach out his case picker to assess her concerns regarding his behavior at home as well as any potential safety concerns. Patient denies any significant psychiatric symptoms at this time; however, speech is pressured and he is expansive and conversation. He denies any history of bipolar disorder, but reports being awake for 60 hours without sleep the week prior to admission. Spending behavior is reported to be consistent and chronic, periods of energized behavior is reported to last 1 day at most. His chronic alcohol use may also be contributing to his current presentation as his blood alcohol has been elevated with his presentations to the emergency department. At time of evaluation patient denies SI, HI, SIB, A/V hallucinations, paranoia, OCD, eating disorder, and other specific psychiatric symptoms. Past Psychiatric History Previous Psych History: History is unclear, only current outpatient provider is a case picker who has been working with for the last year and a half. Patient admits to previous medication trials to address mood and anxiety but specific medications are unknown. He denies to this provider any established r elationships with a therapist or psychiatrist. Outpatient Services: [facility] [employer] - Mónica Iverson - [facility]. Previous Psych Admissions: Denies Do You Have Access To A Gun?: No (requested brother remove firearms from his home) History of Previous Suicide Attempt: No Past Medication Trials: Only known previous medication was fluoxetine. Recognized the names of Xanax and Ativan, but is unsure if they were previously prescribed for him. Allergies Allergy/AdvReac Type Severity Reaction Status Date / Time ibuprofen Allergy Unknown FACIAL Verified 10/20/18 23:23 SWELLING Home Medications Home Medications Medication Instructions Recorded Confirmed Type gabapentin 300 mg PO TID 06/27/18 10/20/18 History metoprolol succinate 25 mg PO QAM 06/27/18 10/20/18 History pantoprazole 20 mg PO DAILY 10/20/18 10/20/18 History Substance Abuse History Patient reports a history of heavy alcohol use. He states most recently a 12 pack has been lasting 3 days. He denies any alcohol use for the past week; however, his blood alcohol level in the emergency room is suggestive of ongoing use. Records show several previous hospitalizations related to alcohol withdrawal or intoxication, with patient refusing recommendations for inpatient drug and alcohol rehabilitation. Personal History Born In: [place], grew up in [place] Highest Grade Completed: High School Graduate Employment Status: Disabled Marital Status: Single Number Of Children: None Beliefs That Will Affect Care: Caodaism ([employer]aritan) Patient History Medical History GERD (gastroesophageal reflux disease) (Chronic) Alcohol abuse (Chronic) Tobacco abuse (Chronic) History of traumatic brain injury (Chronic) ~45 YEARS AGO Seizure (Chronic) Thrombocytopenia (Chronic) PAF (paroxysmal atrial fibrillation) (Chronic) follows with Dr. 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 Beliefs That Will Affect Care: None marital status: Single Current Living Situation: Other Current Living Situation Comment: FRIEND other: Russ Feels Safe at Home: Yes Safety Concerns: Feels Safe At This Time Smoking Status: Current every day smoker Tobacco Type: cigarettes Cigarettes Per Day: 20 Second Hand Exposure: Yes (parents smoked) Hx Alcohol Use: Yes Alcohol type: beer Hx Substance Use: Yes substance use type: marijuana Last Used Substance: Days (ago) Physical Exam Psychiatric: Orientation: alert, oriented x 3 and cooperative Apperance: appropriately dressed (in paper scrubs) and + disheveled (long platt hair) Eye Contact: good eye contact Motor Behavior: + psychomotor agitation (restlessness, frequently moving arms and legs) observed while laying in bed Speech: + pressured speech and + loud speech expansive and over-productive Affect: euthymic affect animated, energetic Mood: no depressed mood and no anxious mood "I'm happy now that I'm here" Thought Process: goal directed thought process, clear/coherent thought process and + circumstantial thought process (Repeating previous answers to questions, returning to previous topics at times) Thought Content: reality based without delusions; no hopelessness, no worthlessness and no loneliness Suicidal Thoughts: denies suicidal thoughts (Admits to episodes of SI prior to admission, denies current suicidal thoughts) and denies suicidal intent ("Killing myself is out of the question"); + reports suicidal plan (Reported plan to shoot himself if he were to complete suicide) Homicidal Thoughts: denies homicidal thoughts Hallucinations: no auditory hallucinations and no visual hallucinations Cognition: recent memory grossly intact, remote memory grossly intact and language grossly intact Estimated Intelligence: consistent with education level Insight: + limited insight Judgement: + limited judgement Vital Signs (Past 24 Hours): Last Vital Signs Temp 36.7 C 10/21/18 11:20 Pulse 89 10/21/18 11:20 Resp 18 10/21/18 11:20 BP 123/78 10/21/18 11:20 Pulse Ox 99 10/21/18 11:20 Review of Systems Constitutional: reports headache Cardiovascular: denied Respiratory: reports SOB Gastrointestinal: denied Neurological: reports dizziness and shaking Psychiatric: [denies symptoms other than stated above] Total of at least 10 systems reviewed, pertinent positives as above and in HPI. Results & Data Medications Administered Acetaminophen (Tylenol) 325 mg PO Q6H PRN PRN Reason: Pain or Fever Stop: 11/19/18 23:39 Last Admin: 10/21/18 05:13 Dose: 325 mg Documented by: [id number] Doxycycline Hyclate (Vibramycin) 100 mg PO BID [facility] Stop: 10/28/18 08:59 Last Admin: 10/21/18 08:42 Dose: 100 mg Documented by: [id number] Folic Acid (Folvite) 1 mg PO QAM [facility] Stop: 11/20/18 08:59 Last Admin: 10/21/18 08:43 Dose: 1 mg Documented by: [id number] Gabapentin (Neurontin) 300 mg PO TID [facility] Stop: 11/19/18 23:39 Last Admin: 10/21/18 08:44 Dose: 300 mg Documented by: [id number] Admin: 10/21/18 01:33 Dose: 300 mg Documented by: [id number] Ioversol (Optiray 320 125ml) 125 ml IV ONCE PRN PRN Reason: Interaction Checking Stop: 10/25/18 02:02 Last Admin: 10/21/18 02:03 Dose: 117 ml Documented by: [id number] Levetiracetam (Keppra) 500 mg PO BID [facility] Stop: 11/20/18 08:59 Last Admin: 10/21/18 08:42 Dose: 500 mg Documented by: [id number] Metoprolol Succinate (Toprol Xl) 25 mg PO [facility] Stop: 11/20/18 08:59 Last Admin: 10/21/18 08:42 Dose: 25 mg Documented by: [id number] Miscellaneous (Remove Nicoderm Patch) 1 ea N/A HS [facility] Stop: 11/19/18 20:59 Last Admin: 10/21/18 02:12 Dose: Not Given Documented by: [id number] Multivitamins (Multivitamin Tab) 1 tab PO [facility] Stop: 11/20/18 08:59 Last Admin: 10/21/18 08:43 Dose: 1 tab Documented by: [id number] Nicotine (Nicoderm Cq) 21 mg TD [facility] Stop: 11/19/18 23:29 Last Admin: 10/21/18 08:44 Dose: 21 mg Documented by: [id number] Admin: 10/20/18 23:49 Dose: 21 mg Documented by: [id number] Oxycodone HCl (Roxicodone Immediate Rel) 5 mg PO Q4H PRN PRN Reason: Pain Stop: 11/03/18 23:39 Last Admin: 10/21/18 08:50 Dose: 5 mg Documented by: [id number] Pantoprazole Sodium (Protonix) 40 mg PO DAILY [facility] Stop: 11/20/18 08:59 Last Admin: 10/21/18 08:42 Dose: 40 mg Documented by: [id number] Thiamine HCl (Vitamin B-1) 100 mg PO [facility] Stop: 11/20/18 08:59 Last Admin: 10/21/18 08:43 Dose: 100 mg Documented by: [id number]
--- NOTE | 2018-10-21 13:28 | XRay Report ---
XR hip LT min 2V CLINICAL HISTORY: R/O FRACTURE, S/P FALL trauma. Pain. COMPARISON: None. DISCUSSION: The bones and joint spaces appear intact. There is no evidence of fracture, dislocation o r bony disease. There is no evidence for soft tissue swelling. IMPRESSION: Negative study. The above report was generated using voice recognition software. It may contain grammatical, syntax or spelling errors. Electronically signed by: Keo Muir M.D. 10/21/2018 1:27 PM
[2018-10-21] MEDS: TRAMADOL HCL 50 MG TABLET PO PRN (13:29)
--- NOTE | 2018-10-21 14:04 | Neurology Consultation ---
Date of Consultation October 21, 2018 Assessment & Plan (1) Seizure: 1. EtOH abuse would continue EtOH withdrawal protocol 2. gabepentin 300 mg TID- home dosing 3. Keppra 500 mg BID can continue however this may cause further anger outbursts. He has no clear history of seizure disorder (other than with EtOH withdrawal) would prefer to have this stopped as he had mood issue on it prior 4. 73 EEG as outpatient was negative for seizure activity and seizure focus with the patient reporting having 15-20 seizures daily 5. psychiatry - for any further recommendations 6. EtOH abuse and now noted illegal drug use - may need rehab before return to home 7. this is a psycho social issue with no end point. He is very abusive to himself and this will likely have a sad end point. follow up in neurology in 4-6 weeks with Adelaida Lau PAC schedule however he no shows for most appointments. Supervising Physician Co-Signing Physician Notes I have seen and discussed above patient with Dr Pascual Choi, neurology I know Mr. Pichardo from prior hospital admissions and consultations have discussed his case with Adelaida Lau today, I have evaluated him and reviewed the current history along with the EEG which parenthetically is completely normal and reveals definitely no evidence for potentially epileptogenic activity or any evidence for a focal or generalized encephalopathy. His examination is nonfocal. He is quite energized a little tangential seems to be in good humor and has no evidence for significant confusional state or for any focal motor or sensory neurologic deficits There is no recent history to suggest a valid breakthrough seizure. Patient often reports "seizures" but they probably are nonepileptic events At this point he is compliant with his current dose of Neurontin 300 mg 3 times a day, has never been compliant with Keppra feeling that it somehow has altered his personality and indeed it may have done so I would suggest he be observed overnight and discharged tomorrow if felt to be medically stable but only on his current gabapentin dose of 300 mg 3 times a day. Steroids and Keppra but is highly unlikely to take it system in the past He has appointments to see us in follow-up but his compliance with these has been about as consistent as his ability to take Keppra Pascual Choi MD History of Present Illness Reason for Consultation: uncontrolled seizures Requesting Physician: Agapito Leblanc MD Attending Physician: Agapito Leblanc MD History of Present Illness Stuart is a 58 year old male who presents the ED with altered mental status 10/15/2018. He had walked into a bar and was found to be agitated. He reported he had a headache so he was brought to the ED for further evaluation. In the ED he was agitated and manic acting. His urine screen showed positive for methamphetamine, cocaine, marijuana. He came back to the ED because he had a headache and CP. He states the cocaine was given to him by his brother in the marijuana joint. He states he has been having multiple seizure and has had several falls. He states he fell in the bathroom this am but nursing and 1:1 was not aware of the fall. He swears he has not been drinking but he is shaking and appears to be very agitated and cries easily. denies SOB, abdominal pain, one sided weakness, numbness tingling, N, V+CP, headache Allergies Allergy/AdvReac Type Severity Reaction Status Date / Time ibuprofen Allergy Unknown FACIAL Verified 10/20/18 23:23 SWELLING Home Medications Home Medications Medication Instructions Recorded Confirmed Type gabapentin 300 mg PO TID 06/27/18 10/20/18 History metoprolol succinate 25 mg PO QAM 06/27/18 10/20/18 History pantoprazole 20 mg PO DAILY 10/20/18 10/20/18 History Patient History Social History Preferred Language: Central African Communication Ability: Effective Visual Impairment: No Limitations 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 Beliefs That Will Affect Care: None marital status: Single Current Living Situation: Other Current Living Situation Comment: FRIEND other: Russ Feels Safe at Home: Yes Safety Concerns: Feels Safe At This Time Smoking Status: Current every day smoker Tobacco Type: cigarettes Cigarettes Per Day: 20 Second Hand Exposure: Yes (parents smoked) Hx Alcohol Use: Yes Alcohol type: beer Hx Substance Use: Yes substance use type: marijuana Last Used Substance: Days (ago) Physical Exam Physical Exam: Physical Exam: Constitutional: appearance nourished, anxious, rambling speech Ears, Nose, Mouth and Throat: mucous membranes moist, no injection and skin normal, eyes normal Cardiovascular: normal S-1 and S-2 and regular rate and rhythm Respiratory: clear to auscultation (CTA) and no rales, ronchi or wheeze Musculoskeletal: no peripheral edema and good distal pulses Skin: no stigmata of neurocutaneous disease noted and normal and intact Eyes: extraocular muscles intact (EOMI) and pupils equal, round and reactive to light (PERRL), injected bilaterally NEUROLOGIC EXAMINATION: Mental status: Alert and interactive Oriented to full date and location Oriented to person Speech fluent with no evidence of aphasia Cranial Nerves smile eye brow raise symmetric Reflexes: Deep tendon reflexes were symmetrical and graded 2/5. Sensory: intact light and cool touch Coordination: finger to nose no bi pass, reaching tremor Gait/Stance: Posture sittig up in bed Motor: Negative for pronator drift of out stretched arms with eyes closed. Strength: biceps triceps hand r developer 5/5 bilaterally, hip flex plantar flex ext 5/5 Results & Data Vital Signs (Past 12 Hours) Vital Signs Temp Pulse Pulse Resp BP Pulse Ox 10/21/18 11:20 36.7 C 89 18 123/78 99 10/21/18 09:00 82 10/21/18 06:20 36.5 C 88 20 135/85 96 10/21/18 03:43 37.1 C 86 18 120/78 96 Laboratory Results Abnormal lab results 10/20/18 10/20/18 10/21/18 Range/Units 21:47 23:29 07:02 WBC 2.40 L (4.8-10.8) K/uL RBC 3.95 L (4.7-6.1) M/uL Hgb 12.9 L (14.0-18.0) g/dL Hct 36.4 L (42-52) % Plt Count 88 L (130-400) K/uL Neut # (Auto) 1.07 L (1.4-6.5) K/uL Lymph # (Auto) 1.00 L (1.2-3.4) K/uL D-Dimer 660 H* (0-500) ug/L FEU Chloride (98-107) mmol/L BUN (7-18) mg/dl Creatinine (0.6-1.4) mg/dl BUN/Creatinine Ratio (10-20) AST (15-37) U/L ALT (12-78) U/L Albumin (3.4-5.0) gm/dl Ethyl Alcohol mg/dL 204.6 H (0-3) mg/dl 10/21/18 Range/Units 07:02 WBC (4.8-10.8) K/uL RBC (4.7-6.1) M/uL Hgb (14.0-18.0) g/dL Hct (42-52) % Plt Count (130-400) K/uL Neut # (Auto) (1.4-6.5) K/uL Lymph # (Auto) (1.2-3.4) K/uL D-Dimer (0-500) ug/L FEU Chloride 109 H (98-107) mmol/L BUN 4 L (7-18) mg/dl Creatinine 0.50 L (0.6-1.4) mg/dl BUN/Creatinine Ratio 7.6 L (10-20) AST 86 H (15-37) U/L ALT 136 H (12-78) U/L Albumin 3.3 L (3.4-5.0) gm/dl Ethyl Alcohol mg/dL (0-3) mg/dl
--- NOTE | 2018-10-21 17:27 | Hospitalist Progress Note ---
Date of Service October 21, 2018 Assessment & Plan (1) Acute bronchitis: CT chest no pneumonia, no pulmonary embolism Clear breath sounds bilaterally Smokes cigar 1-2 times a day Doxycycline, PRN nebs Possible breakthrough seizures CT head negative Presently on usual Keppra twice daily, gabapentin 3 times daily Neurology consulted Headache Status post fall CT head no acute injury Order PT OT Left hip pain Status post fall Hip x-ray no fractures Continue to monitor Alcoholism Denies recent alcohol use Monitor for hypertension, stable PAF, NSR, not on anticoagulation secondary to fall risk /alcoholism Continue telemetry monitoring chronic thrombocytopenia No signs of bleeding mood disorder, suboptimal, possible suicidality Psychiatry consulted DVT prophylaxis SCDs in light of history of seizures Disposition Pending Lives in his own apartment Subjective Follow-up for colitis, possible breakthrough seizures Seen sitting up in bed, just finishing lunch Oriented x3, not in distress States he feels improved compared to yesterday Main complaint is frontal/left temporal headache, reports he fell after he turned around using the toilet today hitting his head and left hip on the floor Also reports left hip pain since that incident Denies confusion, any focal neurologic symptoms Chills, no shortness of breath, no phlegm States mood is stable, denies depression, anxiety No other symptoms Review of Systems Review of Systems: All systems reviewed & are unremarkable except as noted in HPI & below Physical Exam Physical Exam: General- oriented x 3, not in distress, speaks in sentences with no effort or accessory muscle use Head-atraumatic Eyes- anicteric Neck- no JVD Lungs- clear breath sounds bilaterally, no rales/wheezes Heart- normal rate, regular rhythm; no murmurs Abdomen- normal bowel sounds, nondistended, soft, nontender Extremities- no pretibial edema, no calf tenderness Left hip-no erythema/edema/tenderness/hematoma Neuro- alert, oriented x 3; no gross focal neurologic deficits Skin- warm & dry Results & Data Vital Signs (Past 12 Hours) Vital Signs Temp Pulse Pulse Resp BP Pulse Ox 10/21/18 15:08 84 10/21/18 11:20 36.7 C 89 18 123/78 99 10/21/18 09:00 82 10/21/18 06:20 36.5 C 88 20 135/85 96 Laboratory Results Laboratory Results - last 24 hr 10/20/18 10/20/18 10/20/18 21:47 21:47 23:29 WBC RBC Hgb Hct MCV MCH MCHC RDW Std Deviation RDW Coeff of Durga Plt Count MPV Immature Gran % (Auto) Neut % (Auto) Lymph % (Auto) Blanco % (Auto) Eos % (Auto) Baso % (Auto) Immature Gran # (Auto) Neut # (Auto) Lymph # (Auto) Blanco # (Auto) Eos # (Auto) Baso # (Auto) Giant Platelets D-Dimer 660 H* Sodium Potassium Chloride Carbon Dioxide Anion Gap BUN Creatinine Est Cr Clr Drug Dosing Est GFR ( Amer) Est GFR (Non-Af Amer) BUN/Creatinine Ratio Glucose Calcium Total Bilirubin AST ALT Alkaline Phosphatase Troponin I < 0.015 Total Protein Albumin Globulin Albumin/Globulin Ratio Lipase 211 Ethyl Alcohol mg/dL 204.6 H 10/21/18 10/21/18 07:02 07:02 WBC 2.40 L RBC 3.95 L Hgb 12.9 L Hct 36.4 L MCV 92.2 MCH 32.7 MCHC 35.4 RDW Std Deviation 42.4 RDW Coeff of Durga 12.4 Plt Count 88 L MPV 9.8 Immature Gran % (Auto) 0.0 Neut % (Auto) 44.5 Lymph % (Auto) 41.7 Blanco % (Auto) 11.7 Eos % (Auto) 1.7 Baso % (Auto) 0.4 Immature Gran # (Auto) 0.00 Neut # (Auto) 1.07 L Lymph # (Auto) 1.00 L Blanco # (Auto) 0.28 Eos # (Auto) 0.04 Baso # (Auto) 0.01 Giant Platelets 1+ D-Dimer Sodium 139 Potassium 3.8 Chloride 109 H Carbon Dioxide 24 Anion Gap 7.0 BUN 4 L Creatinine 0.50 L Est Cr Clr Drug Dosing 193.9 Est GFR ( Amer) 139.4 Est GFR (Non-Af Amer) 120.3 BUN/Creatinine Ratio 7.6 L Glucose 74 Calcium 8.5 Total Bilirubin 0.5 AST 86 H ALT 136 H Alkaline Phosphatase 114 Troponin I < 0.015 Total Protein 6.5 Albumin 3.3 L Globulin 3.2 Albumin/Globulin Ratio 1.0 Lipase Ethyl Alcohol mg/dL
[2018-10-22] MEDS: DOXYCYCLINE HYCLATE 100 MG CAP PO SCH ×2 (07:56→20:54)
[2018-10-22] MEDS: NICOTINE 21 MG/24 HR TDSY TD SCH (07:56)
[2018-10-22] MEDS: FOLIC ACID 1 MG TAB PO SCH (07:56)
[2018-10-22] MEDS: THIAMINE HCL 100 MG TAB PO SCH (07:56)
[2018-10-22] MEDS: GABAPENTIN 300 MG CAP PO SCH ×3 (07:56→20:54)
[2018-10-22] MEDS: METOPROLOL SUCC 25MG EXT REL TAB PO SCH (07:56)
[2018-10-22] MEDS: PANTOprazole 40 MG TAB PO SCH (07:57)
[2018-10-22] MEDS: levETIRAcetam 500 MG TAB PO SCH (07:57)
[2018-10-22] MEDS: MULTIVITAMIN TAB PO SCH (07:57)
--- NOTE | 2018-10-22 15:37 | Neurology Progress Note ---
Date of Service October 22, 2018 Assessment & Plan (1) Seizure: 1. EtOH abuse would continue EtOH withdrawal protocol 2. gabepentin 300 mg TID- home dosing 3. Keppra 500 mg BID can continue however this may cause further anger outbursts. He has no clear history of seizure disorder (other than with EtOH withdrawal) would prefer to have this stopped as he had mood issue on it prior 4. 73 EEG as outpatient was negative for seizure activity and seizure focus with the patient reporting having 15-20 seizures daily 5. psychiatry - for any further recommendations 6. EtOH abuse and now noted illegal drug use - may need rehab before return to home 7. this is a psycho social issue with no end point. He is very abusive to himself and this will likely have a sad end point. will sign off for now will be available if needed follow up in neurology in 4-6 weeks with Adelaida Lau PAC schedule however he no shows for most appointments. Supervising Physician Co-Signing Physician Notes I have seen and discussed above patient with Dr Pascual Choi, neurology I saw Stuart today reviewed his case with Adelaida Lau PA-C and note that he has now apparently had some sort of "conversion", professes to have spoken with God several times last night and now has absolutely no desire for ethanol or indeed any other substances He is somewhat agitated but oriented energized and no seizure activity has been reported. His exam remains essentially normal without any focal signs, asterixis, tremor and only minor evidence for polyneuropathy at most. At this point we are going to recommend that he be discharged only on gabapentin which is the only medication he is likely to be compliant with. In the past Keppra was associated with what he terms a "personality change" Hopefully his conversion will be sustained and he will begin to abstain from ethanol and other substances but unfortunately I do not have a lot of bakari in this particular light of his prior track record We will be seeing him regularly in the clinic if he is compliant with return visits For now we will be signing off the case Pascual Choi MD Subjective Stuart is a 58 year old male who presents the ED with altered mental status 10/15/2018. He had walked into a bar and was found to be agitated. He reported he had a headache so he was brought to the ED for further evaluation. In the ED he was agitated and manic acting. His urine screen showed positive for methamphetamine, cocaine, marijuana. He came back to the ED because he had a headache and CP. He states the cocaine was given to him by his brother in the marijuana joint. He states he has been having multiple seizure and has had several falls. He states he fell in the bathroom this am but nursing and 1:1 was not aware of the fall. He swears he has not been drinking but he is shaking and appears to be very agitated and cries easily. Had a very long discussion regarding his drug and EtoH abuse and he is on the track to a very bad outcome. He is the only one that can change his course no one else can make him change. He states he understands and swears he is going to change. denies SOB, abdominal pain, one sided weakness, numbness tingling, N, V. Physical Exam Physical Exam: Gen: alert NAD calm and less shaky today lungs CTA CV RRR neuro: knows he is at [facility], year 2019 no dysarthria or slurred speech Results & Data Vital Signs (Past 12 Hours) Vital Signs Temp Pulse Resp BP Pulse Ox 10/22/18 12:28 36.7 C 80 18 124/88 96 10/22/18 07:17 36.6 C 80 20 131/82 96 Laboratory Results no new labs Diagnostic Findings no new imaging
[2018-10-22] MEDS: TRAMADOL HCL 50 MG TABLET PO PRN (16:07)
--- NOTE | 2018-10-22 22:36 | Hospitalist Progress Note ---
Date of Service delayed dentry date of service noted below October 22, 2018 Assessment & Plan (1) Acute bronchitis: CT chest no pneumonia, no pulmonary embolism Clear breath sounds bilaterally Smokes cigar 1-2 times a day Doxycycline, PRN nebs improving Possible breakthrough seizures CT head negative Presently on usual Keppra twice daily, gabapentin 3 times daily Neurology consulted: Dr. Choi recommends patient to continue Gabapentin TID only Headache Status post fall CT head no acute injury resolving possible component of migraine outpatient ff up Left hip pain Status post fall Hip x-ray no fractures pain resolved, no problems ambulating Alcoholism Denies recent alcohol use no signs of withdrawal hypertension, stable PAF, NSR, not on anticoagulation secondary to fall risk /alcoholism continue Metoprolol chronic thrombocytopenia No signs of bleeding ff up as outpatient Mood disorder, suboptimal, possible suicidality Psychiatry evaluated patient patient upon admission denies depression, suicidal ideations does not recommend inpatient psych treatment counseling case manager also talked to patient's sister, ascertained that there are no guns/weapons at patient's home continue to ff up with outpatient counseling case manager DVT prophylaxis SCDs in light of history of seizures Disposition Pending Lives in his own apartment Subjective ff up for possible breakthrough seizures seen resting in bed, comfortable not in distress states he continues to feel improved breathing is improving, less cough headache improving ambulating with no problems denies depression, anxiety, suicidal thoughts no other symptoms Review of Systems Review of Systems: All systems reviewed & are unremarkable except as noted in HPI & below Physical Exam Physical Exam: General- oriented x 3, not in distress, speaks in sentences with no effort or accessory muscle use Eyes- anicteric Neck- no JVD Lungs- clear breath sounds bilaterally, no wheezing Heart- normal rate, regular rhythm; no murmurs Abdomen- normal bowel sounds, nondistended, soft, nontender Extremities- no pretibial edema, no calf tenderness Hip- no edema, hematoma Neuro- alert, oriented x 3; no gross focal neurologic deficits Skin- warm & dry Results & Data Vital Signs (Past 12 Hours) Vital Signs Temp Pulse Pulse Resp BP Pulse Ox 10/22/18 19:45 36.6 C 84 20 134/91 94 10/22/18 16:15 63 10/22/18 15:10 36.8 C 80 21 136/89 96 10/22/18 12:28 36.7 C 80 18 124/88 96
[2018-10-22] MEDS: OXYCODONE HCL IR 5 MG TAB (IMMEDIATE RELEASE) PO PRN (23:43)
[2018-10-23] MEDS: PANTOprazole 40 MG TAB PO SCH (08:14)
[2018-10-23] MEDS: MULTIVITAMIN TAB PO SCH (08:14)
[2018-10-23] MEDS: FOLIC ACID 1 MG TAB PO SCH (08:15)
[2018-10-23] MEDS: METOPROLOL SUCC 25MG EXT REL TAB PO SCH (08:15)
[2018-10-23] MEDS: NICOTINE 21 MG/24 HR TDSY TD SCH (08:15)
[2018-10-23] MEDS: GABAPENTIN 300 MG CAP PO SCH (08:15)
[2018-10-23] MEDS: DOXYCYCLINE HYCLATE 100 MG CAP PO SCH (08:16)
[2018-10-23] MEDS: THIAMINE HCL 100 MG TAB PO SCH (08:16)
--- NOTE | 2018-10-23 09:55 | Communication Note ---
Date of Service: October 23, 2018 Case reviewed with the psychiatric liaison nurse, and record reviewed. Patient is scheduled for discharge today. He was seen for an initial psychiatric co nsultation on 10/21/2018, and his case was reviewed with physician project assistant Rand at that time. He was not acutely suicidal, and said he had already requested that his brother remove the firearms from his home, as he has a history of suicidal thoughts. Recommendations were for collateral information from his family, and outpatient treatment. 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 was contacted yesterday, reported he does not have a psychiatric diagnosis, but abuses alcohol and has memory difficulties. He has been to rehab at least twice, and has extensive outpatient services. His brother was living with him until June, when the patient kicked him out. He reported that a friend had removed all of his guns. Adult Protective Services is involved, and [facility] [employer] is working with him to set up a rep payee. His sister was contacted by case management, and reported that the patient sold his guns a long time ago and that there were no guns in his home. She reported he has severe alcohol abuse, and that she has been paying his bills for the last 3 years, but since he got disability in September, she informed him she would no longer pay his rent. She did pay his utilities recently so that he would have access to a phone. The patient has consistently denied suicidal thoughts while here, states that when he made comments about wanting to in the emergency room he was being "sarcastic," and has not engaged in self-injurious behavior or aggression. The liaison nurse met with him this morning, and he continued to deny suicidal thoughts, stating he has much to live for. He claims that his guns were secured by a friend named Tyree. His affect is upbeat and bright, and he reports looking forward to discharge. Recommendations: Agree with initial consultation that there is no indication for inpatient psychiatric treatment, as he does not have a psychiatric disorder and is not at imminent risk of harm to himself. Primary diagnosis appears to be alcohol use disorder, and primary recommendation is for inpatient rehab to address alcoholism. Patient has apparently declined this. He does have outpatient supports in place, and care was coordinated with his piano case maker during this hospitalization. He does appear to be at chronic increased risk for harm to himself given his alcoholism, memory impairment, health problems, history of suicidal thoughts, and poor self-care, but these risk factors are not likely to be mitigated by further inpatient treatment. His risk factors were mitigated while here by contacting his outpatient piano case maker and sister to confirm there are no guns in his home (this is still somewhat unclear, but both of these individuals state he does not have guns to their knowledge, and patient states that guns have been removed), evaluating him for the presence of a primary mood, anxiety, or thought disorder which was not evident, educating him about the risks of continued alcohol abuse and recommendations for substance abuse treatment which he declined, and treating his comorbid medical conditions and alcohol withdrawal. He has consistently denied mood symptoms and thoughts of harming himself or others, is not psychotic or manic, does not have a primary mental health diagnosis, has a place to live and income to support himself, and has outpatient supports and community services. Although he is a chronic elevated risk for harm to self, his risk is not likely to be mitigated by inpatient treatment, and there is no indication for inpatient psychiatric treatment at this time.
--- NOTE | 2018-10-23 10:37 | Hospitalist Progress Note ---
Date of Service October 23, 2018 Assessment & Plan (1) Acute bronchitis: CT chest no pneumonia, no pulmonary embolism Clear breath sounds bilaterally Smokes cigar 1-2 times a day d/c on 3 more days of Doxycycline to complete 7 days total PRN nebs given patient clinically improved Possible breakthrough seizures CT head negative Presently apparently on usual Keppra twice daily, gabapentin 3 times daily but non adherent Neurology consulted does not feel episodes patient is reporting are breakthrough seizures Dr. Choi recommends patient to continue Gabapentin TID only Headache Status post fall CT head no acute injury resolving possible component of migraine outpatient ff up Left hip pain Status post fall Hip x-ray no fractures pain resolved, no problems ambulating Alcoholism Denies recent alcohol use no signs of withdrawal advised no alcohol, smoking Hypertension, stable PAF, NSR, not on anticoagulation secondary to fall risk /alcoholism continue Metoprolol chronic thrombocytopenia No signs of bleeding ff up as outpatient Mood disorder, suboptimal, possible suicidality Psychiatry evaluated patient patient upon admission denies depression, suicidal ideations does not recommend inpatient psych treatment pillowcase sewer also talked to patient's sister, ascertained that there are no guns/weapons at patient's home continue to ff up with outpatient pillowcase sewer DVT prophylaxis SCDs in light of history of seizures Disposition d/c home ff up with Dr. Leblanc mon 10/28 1045 ff up with Neuro in 3-4 weeks Subjective ff up for bronchitis, possible seizure seen resting in bed, comfortable states he feels much better overall denies cough, dyspnea no pain denies depression, anxiety, suicidal thoughts no tremors, hallucinations states he is ready and would like to be discharged today Review of Systems Review of Systems: All systems reviewed & are unremarkable except as noted in HPI & below Physical Exam Physical Exam: General- oriented x 3, not in distress, speaks in sentences with no effort or accessory muscle use Eyes- anicteric Neck- no JVD Lungs- clear breath sounds bilaterally no rales no wheezing Heart- normal rate, regular rhythm; no murmurs Abdomen- normal bowel sounds, nondistended, soft, nontender Extremities- no pretibial edema, no calf tenderness Neuro- alert, oriented x 3; no gross focal neurologic deficits Skin- warm & dry Results & Data Vital Signs (Past 12 Hours) Vital Signs Temp Pulse Resp BP Pulse Ox 10/23/18 07:16 36.5 C 74 20 137/86 96 10/22/18 23:38 36.6 C 60 18 140/82 98
--- NOTE | 2018-10-23 10:56 | Discharge Summary ---
Date of Service October 23, 2018 Admission HPI Per Admitting Provider Stuart Pichardo is a 58-year-old male admitted medically on 10/20/2018 for reports of chest pain, shortness of breath, and uncontrollable seizures. Patient has a PMH of alcohol abuse, GERD, HTN, and drug intoxications. On admission, patient's BAL was 267.4 mg/dL. It was reported the patient was afraid to go home due to having several firearms at his place of residence. Psychiatric consultation was requested to assess possible suicidality, given fear of returning home with firearms present. Patient's case was reviewed with psychiatric liaison nurse, and patient was seen on psychiatric consult service by this provider. Patient reports significant concern regarding his ongoing seizure activity. He states that he does not feel ready to return home as he is concerned about the falls he has been having. He does report the possibility of a friend, "Arnold", staying with him for a period of time, which makes patient feel more comfortable about the idea of discharge. He continues to report that he does not feel ready to go and is hoping to stay for a few more days on the medical floor. When queried about mood, the patient states his mood has been "depressed" prior to admissionhe states "depressed before, but now I am happy that I am here." Patient states he has low mood "10-20% of the time", but states her mood generally last for 15-20 minutes "then I pop out of it." The patient does report passive suicidality episodically for 3-6 months. Patient states that he has already asked his older brother to remove the weapons from his home. He states that at this time the only plan considered would be to "shoot myself." He states that suicide is not an option for him as it is "against my adventism, but the cowards way out." Patient states that since being admitted to the hospital he has not had any suicidal thoughts reporting "I could not go through with it, I would not want to go to hell" and "killing myself is out of the question." Patient reports establish care with Mónica Iverson, his c ase flight kitchen manager through [employer]. He states "she does everything, she talks to me, she does therapy, she really good to me." Patient does get this provider permission to reach out his cyanide case hardener to assess her concerns regarding his behavior at home as well as any potential safety concerns. Patient denies any significant psychiatric symptoms at this time; however, speech is pressured and he is expansive and conversation. He denies any history of bipolar disorder, but reports being awake for 60 hours without sleep the week prior to admission. Spending behavior is reported to be consistent and chronic, periods of energized behavior is reported to last 1 day at most. His chronic alcohol use may also be contributing to his current presentation as his blood alcohol has been elevated with his presentations to the emergency department. At time of evaluation patient denies SI, HI, SIB, A/V hallucinations, paranoia, OCD, eating disorder, and other specific psychiatric symptoms. Admission Exam Per Admitting Provider GENERAL: Slightly anxious and uncomfortable , no respiratory distress SKIN: Pallor , warm HEENT: Pale palpebral conjunctivae, no ptosis, dry buccal mucosa NECK : Supple, no tenderness CHEST : Decreased effort , no tenderness HEART : RRR, no obvious murmurs ABDOMEN: Some distention, no tenderness EXTREMITIES : No LE swelling/tenderness, no other conspicuous deformities noted NEUROLOGIC : Coherent, no facial asymmetry, somewhat tremulous Principal Diagnosis ACUTE BRONCHITIS Discharge Exam General- oriented x 3, not in distress, speaks in sentences with no effort or accessory muscle use Eyes- anicteric Neck- no JVD Lungs- clear breath sounds bilaterally no rales no wheezing Heart- normal rate, regular rhythm; no murmurs Abdomen- normal bowel sounds, nondistended, soft, nontender Extremities- no pretibial edema, no calf tenderness Neuro- alert, oriented x 3; no gross focal neurologic deficits Skin- warm & dry Discharge Data Allergies Allergy/AdvReac Type Severity Reaction Status Date / Time ibuprofen Allergy Unknown FACIAL Verified 10/20/18 23:23 SWELLING Consultations 10/20/18 21:42 ED Decision to Admit Stat 10/20/18 23:30 Consult Psychiatry Routine 10/20/18 23:50 Consult Neurology Routine Ordered Studies 10/21/18 00:26 CT angio chest PE protocol Urgent FINDINGS: There is a normal caliber thoracic aorta with no evidence for dissection. There is no evidence for pulmonary embolus. No pleural effusions. No pneumothorax. The liver and spleen are unremarkable. No mediastinal or hilar lymphadenopathy. The central airways are patent. The lungs are clear. IMPRESSION: No evidence for pulmonary embolus. Mild peribronchial prominence 10/21/18 12:25 CT head/brain wo con Stat FINDINGS: No intra or extra-axial mass lesions are visualized. There is no CT evidence of acute cortical infarction. There is no evidence of midline shift. There is no acute hemorrhage. No calvarial fractures are visualized. There are patchy white matter hypodensities likely on a small vessel basis. There are atrophic changes present. There is no evidence of pathologic ventricular dilatation. There is a partially visualized right and exercise retention cyst. IMPRESSION: No acute intracranial findings Hospital Course (1) Acute bronchitis: CT chest no pneumonia, no pulmonary embolism Clear breath sounds bilaterally Smokes cigar 1-2 times a day d/c on 3 more days of Doxycycline to complete 7 days total PRN nebs given patient clinically improved Possible breakthrough seizures CT head negative Presently apparently on usual Keppra twice daily, gabapentin 3 times daily but non adherent Neurology consulted does not feel episodes patient is reporting are breakthrough seizures Dr. Choi recommends patient to continue Gabapentin TID only Headache Status post fall CT head no acute injury resolving possible component of migraine outpatient ff up Left hip pain Status post fall Hip x-ray no fractures pain resolved, no problems ambulating Alcoholism Denies recent alcohol use no signs of withdrawal advised no alcohol, smoking Hypertension, stable PAF, NSR, not on anticoagulation secondary to fall risk /alcoholism continue Metoprolol chronic thrombocytopenia No signs of bleeding ff up as outpatient Mood disorder, suboptimal, possible suicidality Psychiatry evaluated patient patient upon admission denies depression, suicidal ideations does not recommend inpatient psych treatment cyanide case hardener also talked to patient's sister, ascertained that there are no guns/weapons at patient's home continue to ff up with outpatient cyanide case hardener DVT prophylaxis SCDs in light of history of seizures Disposition d/c home ff up with Dr. Villanueva mon 10/28 1045 ff up with Neuro in 3-4 weeks Total Time Total Time Spent Total Time Spent (In Minutes): 50 MINUTES Discharge Plan Discharge Items Reason For Visit: CP Discharge Diagnosis: ACUTE BRONCHITIS Discharge Goals: Diagnostic testing and Therapeutic intervention Activity: Resume your previous activity Activity Comment: INCREASE ACTIVITY GRADUALLY TOLERATED Lifting: Wait until after follow-up appointment Exercise/Sports: Wait until after follow-up appointment Driving/Machine Use Comment: NO DRIVING Non-emergency contact: Primary Care Provider Call non-emergency contact if: you have any medication questions, your symptoms worsen, your pain is not controlled, your pain is worsening, your pain is unusual for you, your pain is concerning for you and you have a fever Diet: Heart Healthy Addtl Provider Instructions: FOLLOW UP WITH PRIMARY CARE PHYSICIAN DR. VILLANUEVA- [facility]- ON Sunday10/28/18 AT 10:45AM. PLEASE FOLLOW UP WITH YOUR DOCTORS ADVISED. CALL PRIMARY CARE PHYSICIAN OR RETURN TO THE ER IF WITH WORSENING SYMPTOMS. NO ALCOHOL, SMOKING, ILLICIT DRUGS. ALWAYS STAY WELL HYDRATED. Prescriptions: New multivitamin [Daily-Terence] Tablet 1 tab PO QAM 30 Days Qty: 30 RF: 0 doxycycline hyclate 100 mg Capsule 100 mg PO BID 3 Days Qty: 6 RF: 0 Continued pantoprazole 20 mg tablet,delayed release (DR/EC) 20 mg PO DAILY RF: 0 metoprolol succinate 25 mg tablet extended release 24 hr 25 mg PO QAM RF: 0 gabapentin 300 mg capsule 300 mg PO TID RF: 0 Stand-Alone Forms: [facility] Admission Data Admit Date/Time: 10/22/18 22:31 Attending Provider: Agapito Leblanc Admit Provider: Adonis Arriaga Primary Care Provider: PCP,NO Other Providers: Adonis Arriaga ; Brenda Valero ; Pascual Choi Service: Medical
== END 2018-10-23 13:00 | disposition home or self-care (01) | DRG 202 ==
LOC: 2W 20:35 → ED 20:35 → 2W 10-21 00:20

== ENCOUNTER 2018-11-07 08:21 | Inpatient (IN) ==
[2018-11-07] MEDS ORDERED: LORazepam 1 MG TAB SL STA ×2 (08:57→14:43)
[2018-11-07] MEDS ORDERED: OLANZAPINE ZYDIS 10 MG ORALLY DIS. TAB PO STA ×3 (08:59→14:43)
[2018-11-07] MEDS ORDERED: LORazepam 2 MG/4 ML VIAL ONE (09:07)
[2018-11-07 09:50] LABS: Basophils # (auto) 0.01 K/uL (0-0.2); Basophils % (auto) 0.2 %; Eosinophils # (auto) 0.04 K/uL (0-0.5); Eosinophils % (auto) 0.9 %; Hematocrit (blood only) 37.5 % (42-52); Hemoglobin 13.6 g/dL (14.0-18.0); Immature Granulocytes # (auto) 0.01 K/uL (0.00-0.02); Immature Granulocytes % (auto) 0.2 %; Lymphocytes % (auto) 20.2 %; Mean Corpuscular Hgb Conc 36.3 g/dL (32-36); Mean Corpuscular Volume 91.7 fL (80-100); Mean Platelet Volume 9.9 fL (7.4-10.4); Monocytes # (auto) 0.46 K/uL (0.11-0.59); Monocytes % (auto) 10.3 %; Neutrophils # (auto) 3.04 K/uL (1.4-6.5); Neutrophils % (auto) 68.2 %; Platelet Count 236 K/uL (130-400); RDW Coefficient of Variation 11.6 % (11.5-14.5); RDW Standard Deviation 39.1 fL (36.4-46.3); Red Blood Count 4.09 M/uL (4.7-6.1); White Blood Count 4.46 K/uL (4.8-10.8)
[2018-11-07 09:56] LABS: Albumin Level 4.1 gm/dl (3.4-5.0); BUN Creatinine Ratio 17.1 (10-20); Calcium 9.1 mg/dl (8.5-10.1); Creatinine Clr Calc Pharmacy 127.8 ml/min; Est GFR (African American) 121.4; Est GFR (Non-African American) 104.8; Potassium 4.2 mmol/L (3.5-5.1)
[2018-11-07 10:03] LABS: Acetaminophen < 2 ug/ml (10-30); Salicylate 3.2 mg/dl (2.8-20)
[2018-11-07 10:06] LABS: Albumin Globulin Ratio 1.1 (0.9-2); Bilirubin,Total 0.7 mg/dl (0.2-1); Globulin 3.7 gm/dl (2.5-4.0); Total Protein 7.8 gm/dl (6.4-8.2)
[2018-11-07] MEDS ORDERED: levETIRAcetam 500 MG TAB PO ONE (10:07)
[2018-11-07 10:08] LABS: Appearance Urine Clear (Clear); Bilirubin Urine Negative (Negative); Blood Urine Negative (Negative); Color Urine Dark Yellow; Glucose Urine UA Negative (Negative); Ketones Urine Negative (Negative); Leukocyte Esterase Urine Negative (Negative); Nitrite Urine Negative (Negative); Protein Urine Negative (Negative); Specific Gravity Urine 1.014 (1.000-1.030); Urobilinogen Urine Negative (Negative); pH Urine 5.5 (4.5-7.5)
[2018-11-07 10:31] LABS: Amphetamines+Metham, Urine Neg (Neg); Barbiturates, Urine Neg (Neg); Benzodiazepine, Urine Neg (Neg); Cocaine, Urine Neg (Neg); MDMA (Ecstacy), Urine Neg (Neg); Methadone, Urine Neg (Neg); Opiate, Urine Neg (Neg); Phencyclidine, Urine Neg (Neg)
[2018-11-07] MEDS ORDERED: LORazepam 2 MG/ML VIAL (IM USE) IM STA ×3 (11:15→17:54)
[2018-11-07] MEDS ORDERED: LORazepam 2 MG/ML VIAL (IM USE) ONE (11:16)
[2018-11-07] MEDS ORDERED: OLANZapine 10 MG/2.1 ML SDV IM STA (14:34)
--- NOTE | 2018-11-07 16:01 | Emergency Department Note ---
Entered by Jeri Crowley acting as a scribe for Glo Rodriguez MD History of Present Illness General Chief complaint: Mental Health Evaluation Stated complaint: MHR EVALUATION - ALSO SEIZURES Time Seen by Provider: 11/07/18 16:13 Source: patient and RN notes reviewed Mode of arrival: other (police cruiser) Limitations: altered mental status History of Present Illness Provider complaint: MHE Onset (ago): hour(s) (this morning) Location: head Pain Consistency: + other (episode) Quality: + other (AMS) Associated symptoms: + denies other symptoms (SI, HI) The patient is a 58 year old male who presents to the ER via police cruiser for a mental health evaluation. The patient reports that he walks 5-10 miles every day and that this morning he forgot to take his daily medications before going on his daily walk. He states that he then asked the police to bring him to the ER. The RN notes that that the police stopped this morning the patient this morning after they noticed he had been walking all night and were concerned that he has not slept. The patient explains that he has only slept 12 hours in the past week. He denies any suicidal or homicidal ideations. He states that he was last evaluated by his psychiatrist 2 weeks ago. He also notes that he has an appointment at 1330 today with his PCP. He denies any alcohol or substance use. Home Medications Home Medications Medication Instructions Recorded Confirmed Type gabapentin 300 mg PO TID 06/27/18 11/07/18 History metoprolol succinate 25 mg PO QAM 06/27/18 11/07/18 History pantoprazole 20 mg PO DAILY 10/20/18 11/07/18 History multivitamin [Daily-Terence] 1 tab PO QAM 30 Days #30 tab 10/23/18 11/07/18 Rx Allergies Allergy/AdvReac Type Severity Reaction Status Date / Time ibuprofen Allergy Unknown FACIAL Verified 10/20/18 23:23 SWELLING Past Med/Surg History Medical History GERD (gastroesophageal reflux disease) (Chronic) Alcohol abuse (Chronic) Tobacco abuse (Chronic) History of traumatic brain injury (Chronic) ~45 YEARS AGO Seizure (Chronic) Thrombocytopenia (Chronic) PAF (paroxysmal atrial fibrillation) (Chronic) follows with Dr. Nickerson Mood disorder (Chronic) Malnutrition related to chronic disease (Chronic) Surgical History History of herniorrhaphy (Chronic) UMBILICAL HERNIA (RIGHT ABOVE THE GROIN CENTER ABDOMEN) Family History Father Heart disease Mother Pancreatic cancer Social History Preferred Language: [place]an Communication Ability: Effective Communication Ability Comment: uncooperative with assessment Visual Impairment: No Limitations Direct Support Specialist Required: No Beliefs That Will Affect Care: None marital status: Single Current Living Situation: Other Current Living Situation Comment: FRIEND other: Russ Feels Safe at Home: Declines to Answer Smoking Status: Current every day smoker Tobacco Type: cigarettes Cigarettes Per Day: 20 Second Hand Exposure: Yes (parents smoked) Hx Alcohol Use: Yes Alcohol type: beer Hx Substance Use: Yes substance use type: marijuana Review of Systems Other (HPI and ROS are both limited secondary to AMS. ) Physical Exam Vital Signs Vital Signs - 24 hr 11/07/18 08:25 Temperature 36.7 C Temperature Source Oral Sepsis Recent Fever Within 48 Hours No Sepsis Action Taken by Nursing No Action Required Pulse Rate 89 Respiratory Rate 20 Blood Pressure 144/86 H Blood Pressure Mean 105 Blood Pressure Position Sitting Pulse Oximetry 98 Vital signs reviewed. General: Malodorous but dressed appropriately. Appears to be agitated. HEENT: No scleral icterus, PERRLA, neck supple. Atraumatic. Cardiovascular: Regular rate and rhythm, no extra sounds. Pulmonary: Clear to auscultation bilaterally, normal work of breathing. Abdomen: Soft, nontender, nondistended, positive bowel sounds. Musculoskeletal: Atraumatic, no peripheral edema. Neurologic: Patient awake alert and oriented x 3 Skin: Warm, dry, no rash Psych: Negative suicidal or homicidal ideations. Pressured speech. Tangential. Grandiose statements. Course 0841: Past medical records reviewed. The patient was evaluated in room A8. A complete history and physical examination was performed. 0948: Updated by CM after conversation with the patients sister: the patient has not been answering his phone and is being evicted and his belongings are out in backyard. He has not been showing up in his doctors office and was found in someone elses home wandering. 1150: The patient is awaiting placement. 1600: The patient was signed out to Dr. Walker at the change of shifts. 1630: Patient had an unwitnessed fall according to nursing staff. He complained of right knee discomfort but denied hitting his head. In my evaluation, the patient refused to have the knee evaluated clinically, have an x-ray performed. He would not participate in any sort of clinical exam. Case has been signed out to Dr. Walker, pending bed search. Administered Medications Gabapentin (Neurontin) 600 mg PO Q8H [facility] Stop: 11/09/18 06:01 Last Admin: 11/08/18 14:00 Dose: 600 mg Documented by: [id number] Metoprolol Succinate (Toprol Xl) 25 mg PO QAM [facility] Stop: 12/07/18 16:14 Last Admin: 11/08/18 09:19 Dose: 25 mg Documented by: [id number] Admin: 11/07/18 18:23 Dose: Not Given Documented by: [id number] Risperidone (Risperdal) 2 mg PO BID [facility] Stop: 12/08/18 12:44 Last Admin: 11/08/18 13:47 Dose: 2 mg Documented by: [id number] Discontinued Medications Gabapentin (Neurontin) 1,200 mg PO 1830 ONE Stop: 11/07/18 18:31 Last Admin: 11/07/18 18:29 Dose: Not Given Documented by: [id number] Gabapentin (Neurontin) 600 mg PO Q6H [facility] Stop: 11/08/18 06:01 Last Admin: 11/08/18 06:06 Dose: 600 mg Documented by: [id number] Admin: 11/08/18 00:10 Dose: Not Given Documented by: [id number] Levetiracetam (Keppra) 500 mg PO ONE ONE Stop: 11/07/18 10:08 Last Admin: 11/07/18 10:21 Dose: 500 mg Documented by: [id number] Lorazepam (Ativan) 2 mg SL NOW [facility] Stop: 11/07/18 08:58 Last Admin: 11/07/18 09:14 Dose: Not Given Documented by: [id number] Lorazepam (Ativan) Confirm Administered Dose 2 mg .ROUTE .STK-MED ONE Stop: 11/07/18 09:08 Last Admin: 11/07/18 09:14 Dose: 2 mg Documented by: [id number] Lorazepam (Ativan) 2 mg IM NOW STA Stop: 11/07/18 11:16 Last Admin: 11/07/18 11:29 Dose: 2 mg Documented by: [id number] Lorazepam (Ativan) Confirm Administered Dose 2 mg .ROUTE .STK-MED ONE Stop: 11/07/18 11:17 Last Admin: 11/07/18 11:29 Dose: Not Given Documented by: [id number] Lorazepam (Ativan) 2 mg IM NOW STA Stop: 11/07/18 14:35 Last Admin: 11/07/18 18:28 Dose: Not Given Documented by: [id number] Lorazepam (Ativan) 2 mg SL NOW STA Stop: 11/07/18 14:44 Last Admin: 11/07/18 17:43 Dose: Not Given Documented by: [id number] Lorazepam (Ativan) 2 mg IM NOW STA Stop: 11/07/18 17:55 Last Admin: 11/07/18 18:02 Dose: 2 mg Documented by: [id number] Olanzapine (Zyprexa Zydis Od) 10 mg PO NOW STA Stop: 11/07/18 09:00 Last Admin: 11/07/18 09:14 Dose: 10 mg Documented by: [id number] Olanzapine (Zyprexa Zydis Od) 10 mg PO NOW STA Stop: 11/07/18 11:15 Last Admin: 11/07/18 11:29 Dose: 10 mg Documented by: [id number] Olanzapine (Zyprexa) 10 mg IM NOW STA Stop: 11/07/18 14:35 Last Admin: 11/07/18 18:29 Dose: Not Given Documented by: [id number] Olanzapine (Zyprexa Zydis Od) 10 mg PO NOW STA Stop: 11/07/18 14:44 Last Admin: 11/07/18 17:43 Dose: Not Given Documented by: [id number] Pantoprazole Sodium (Protonix) 40 mg PO NOW STA Stop: 11/07/18 16:12 Last Admin: 11/07/18 18:23 Dose: Not Given Documented by: [id number] Medical Decision Making Differential Diagnosis Differential diagnosis includes: mood disorder, infection, hypoglycemia, electrolyte abnormalities, cardiac sources, intracerebral event, toxicologic, neurologic, as well as others were entertained. Medical Records Attestation: I reviewed the patient's medical records. Home Medications Current Medication List: was personally reviewed by me Laboratory Data Attestation: I reviewed the patient's lab results. Result diagrams: 11/07/18 09:23 11/07/18 09:23 Lab Results 11/07/18 11/07/18 11/07/18 Range/Units 09:23 09:23 09:23 WBC 4.46 L (4.8-10.8) K/uL RBC 4.09 L (4.7-6.1) M/uL Hgb 13.6 L (14.0-18.0) g/dL Hct 37.5 L (42-52) % MCV 91.7 (80-100) fL MCH 33.3 (25-34) pg MCHC 36.3 H (32-36) g/dL RDW Std Deviation 39.1 (36.4-46.3) fL RDW Coeff of Durga 11.6 (11.5-14.5) % Plt Count 236 (130-400) K/uL MPV 9.9 (7.4-10.4) fL Immature Gran % (Auto) 0.2 % Neut % (Auto) 68.2 % Lymph % (Auto) 20.2 % [place] % (Auto) 10.3 % Eos % (Auto) 0.9 % Baso % (Auto) 0.2 % Immature Gran # (Auto) 0.01 (0.00-0.02) K/uL Neut # (Auto) 3.04 (1.4-6.5) K/uL Lymph # (Auto) 0.90 L (1.2-3.4) K/uL [place] # (Auto) 0.46 (0.11-0.59) K/uL Eos # (Auto) 0.04 (0-0.5) K/uL Baso # (Auto) 0.01 (0-0.2) K/uL Sodium 136 (136-145) mmol/L Potassium 4.2 (3.5-5.1) mmol/L Chloride 103 (98-107) mmol/L Carbon Dioxide 26 (21-32) mmol/L Anion Gap 7.0 (3-11) BUN 12 (7-18) mg/dl Creatinine 0.70 (0.6-1.4) mg/dl Est Cr Clr Drug Dosing 127.8 ml/min Est GFR ( Amer) 121.4 Est GFR (Non-Af Amer) 104.8 BUN/Creatinine Ratio 17.1 (10-20) Glucose 135 H (70-99) mg/dl Calcium 9.1 (8.5-10.1) mg/dl Total Bilirubin 0.7 (0.2-1) mg/dl AST 63 H (15-37) U/L ALT 97 H (12-78) U/L Alkaline Phosphatase 133 H (45-117) U/L Total Creatine Kinase 248 (39-308) U/L Total Protein 7.8 (6.4-8.2) gm/dl Albumin 4.1 (3.4-5.0) gm/dl Globulin 3.7 (2.5-4.0) gm/dl Albumin/Globulin Ratio 1.1 (0.9-2) TSH 0.420 (0.300-4.500) uIu/ml Urine Color Urine Appearance (Clear) Urine pH (4.5-7.5) Ur Specific [place] (1.000-1.030) Urine Protein (Negative) Urine Glucose (UA) (Negative) Urine Ketones (Negative) Urine Blood (Negative) Urine Nitrite (Negative) Urine Bilirubin (Negative) Urine Urobilinogen (Negative) Ur Leukocyte Esterase (Negative) Salicylates 3.2 (2.8-20) mg/dl Urine Opiates Screen (Neg) Ur Methadone, Qual (Neg) Acetaminophen < 2 L (10-30) ug/ml Urine Barbiturates (Neg) Ur Phencyclidine (PCP) (Neg) U Amphetamin/Meth Scrn (Neg) MDMA (Ecstasy) Screen (Neg) U Benzodiazepines Scrn (Neg) Ur Cocaine Metabolite (Neg) U Marijuana (THC) Screen (Neg) Ethyl Alcohol mg/dL (0-3) mg/dl 11/07/18 11/07/18 11/07/18 Range/Units 09:23 09:55 09:55 WBC (4.8-10.8) K/uL RBC (4.7-6.1) M/uL Hgb (14.0-18.0) g/dL Hct (42-52) % MCV (80-100) fL MCH (25-34) pg MCHC (32-36) g/dL RDW Std Deviation (36.4-46.3) fL RDW Coeff of Durga (11.5-14.5) % Plt Count (130-400) K/uL MPV (7.4-10.4) fL Immature Gran % (Auto) % Neut % (Auto) % Lymph % (Auto) % [place] % (Auto) % Eos % (Auto) % Baso % (Auto) % Immature Gran # (Auto) (0.00-0.02) K/uL Neut # (Auto) (1.4-6.5) K/uL Lymph # (Auto) (1.2-3.4) K/uL [place] # (Auto) (0.11-0.59) K/uL Eos # (Auto) (0-0.5) K/uL Baso # (Auto) (0-0.2) K/uL Sodium (136-145) mmol/L Potassium (3.5-5.1) mmol/L Chloride (98-107) mmol/L Carbon Dioxide (21-32) mmol/L Anion Gap (3-11) BUN (7-18) mg/dl Creatinine (0.6-1.4) mg/dl Est Cr Clr Drug Dosing ml/min Est GFR ( Amer) Est GFR (Non-Af Amer) BUN/Creatinine Ratio (10-20) Glucose (70-99) mg/dl Calcium (8.5-10.1) mg/dl Total Bilirubin (0.2-1) mg/dl AST (15-37) U/L ALT (12-78) U/L Alkaline Phosphatase (45-117) U/L Total Creatine Kinase (39-308) U/L Total Protein (6.4-8.2) gm/dl Albumin (3.4-5.0) gm/dl Globulin (2.5-4.0) gm/dl Albumin/Globulin Ratio (0.9-2) TSH (0.300-4.500) uIu/ml Urine Color Dark Yellow Urine Appearance Clear (Clear) Urine pH 5.5 (4.5-7.5) Ur Specific [place] 1.014 (1.000-1.030) Urine Protein Negative (Negative) Urine Glucose (UA) Negative (Negative) Urine Ketones Negative (Negative) Urine Blood Negative (Negative) Urine Nitrite Negative (Negative) Urine Bilirubin Negative (Negative) Urine Urobilinogen Negative (Negative) Ur Leukocyte Esterase Negative (Negative) Salicylates (2.8-20) mg/dl Urine Opiates Screen Neg (Neg) Ur Methadone, Qual Neg (Neg) Acetaminophen (10-30) ug/ml Urine Barbiturates Neg (Neg) Ur Phencyclidine (PCP) Neg (Neg) U Amphetamin/Meth Scrn Neg (Neg) MDMA (Ecstasy) Screen Neg (Neg) U Benzodiazepines Scrn Neg (Neg) Ur Cocaine Metabolite Neg (Neg) U Marijuana (THC) Screen Pos H (Neg) Ethyl Alcohol mg/dL < 3.0 (0-3) mg/dl Blood Pressure Blood Pressure Findings: Normal blood pressure Blood Pressure Disposition: did not require urgent referral MDM Narrative This patient was evaluated and appeared to be in no significant distress. Patient had pressured speech and was delusional with grandiose statements. He did seem to be easily agitated. Per his account he has not slept and 24 hours. He was up pacing [place]jor[place] font on late last night. The patient has been in the ED 6 times in the last 30 days for similar issues. There is some drug and alcohol involvement however the patient does not seem to be drunk or high at this time. The patient is not voluntary for admission on any level. He insists on discharge. I do not feel the patient is safe, I feel he is a danger to himself and impulsive. Patient was found in a random house recently, he was in the staff break room at his physician's office, redirected and then left the office. Patient's sister was contacted but states she is not able to provide support any longer as their relationship has deteriorated. He has been noncompliant with both psychiatric and PCP follow-up. He is not regular with his medications. The patient was 302. A bed search is underway. Patient's case was signed out to Dr. Walker pending disposition. Impression & Plan Hannah, Delusional disorder Discharge Plan Visit Data *Final* Discharge Date/Time: 11/07/18 18:08 Chief Complaint: Mental Health Evaluation Stated Complaint: MHR EVALUATION - ALSO SEIZURES ED Provider: Jesus Walker Discharge Problem: Hannah, Delusional disorder Patient Disposition: Admitted As Inpatient Discharge Instructions Interventions: ED Discharge Assessment Last Done: 11/07/18 18:08 The scribe's documentation has been prepared under my direction and personally reviewed by me in its entirety. I confirm that the note above accurately reflects all work, treatment, procedures, and medical decision making performed by me.
[2018-11-07] MEDS ORDERED: PANTOprazole 40 MG TAB PO STA (16:11)
[2018-11-07] MEDS ORDERED: LORazepam 1 MG TAB PO PRN ×2 (16:59→18:33)
[2018-11-07] MEDS ORDERED: ALUMINUM/MAGNESIUM SUSP 30 ML UDC PO PRN (16:59)
[2018-11-07] MEDS ORDERED: SODIUM CHLORIDE 0.65% NA SOLN 45 ML (OCEAN) PRN (16:59)
[2018-11-07] MEDS ORDERED: GABAPENTIN 1200MG ALCOHOL WITHDRAWAL LOAD PO STA (16:59)
[2018-11-07] MEDS ORDERED: MAGNESIUM HYDROXIDE SUSP 30 ML UDC PO PRN (16:59)
--- NOTE | 2018-11-07 17:55 | Emergency Department Note ---
Entered by Luna Albarado acting as a scribe for Jesus Walker MD ED Visit Note 1604: 302. Medically cleared pending [facility] assessment and placement. 174: The patient was accepted by [facility]. I assumed care from Dr. Rodriguez pending 302 evaluation with [facility] in placement. Home meds were ordered. Patient reportedly did have a small fall but did not strike his head per the previous provider and was struck his right knee. Patient declined any imaging was otherwise walking without issue. Patient was accepted [facility]. Prior to going upstairs the patient received 2 mg of IM Ativan secondary to agitation. The scribe's documentation has been prepared under my direction and personally reviewed by me in its entirety. I confirm that the note above accurately reflects all work, treatment, procedures, and medical decision making performed by me.
[2018-11-07] MEDS: METOPROLOL SUCC 25MG EXT REL TAB PO SCH (18:23)
[2018-11-07] MEDS ORDERED: GABAPENTIN 600 MG TAB PO ONE (18:30)
[2018-11-07] MEDS ORDERED: LORazepam 2 MG/ML VIAL (IM USE) IM PRN (18:33)
[2018-11-07] MEDS ORDERED: OLANZAPINE ZYDIS 10 MG ORALLY DIS. TAB PO PRN (18:36)
[2018-11-08] MEDS: GABAPENTIN 600 MG TAB PO SCH ×4 (00:10→21:29)
[2018-11-08] MEDS: METOPROLOL SUCC 25MG EXT REL TAB PO SCH (09:19)
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
[2018-11-08] MEDS: risperiDONE 2 MG TABLET PO SCH ×2 (13:47→21:28)
[2018-11-09] MEDS: GABAPENTIN 600 MG TAB PO SCH ×2 (06:08→17:39)
[2018-11-09] MEDS: risperiDONE 2 MG TABLET PO SCH ×2 (08:15→20:56)
[2018-11-09] MEDS: METOPROLOL SUCC 25MG EXT REL TAB PO SCH (08:15)
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
[2018-11-09] MEDS: NICOTINE 14 MG/24 HR PATCH TD SCH (17:37)
[2018-11-10] MEDS: GABAPENTIN 600 MG TAB PO SCH (06:33)
[2018-11-10] MEDS: risperiDONE 2 MG TABLET PO SCH ×2 (07:49→21:25)
[2018-11-10] MEDS: METOPROLOL SUCC 25MG EXT REL TAB PO SCH (07:49)
[2018-11-10] MEDS: NICOTINE 14 MG/24 HR PATCH TD SCH (07:53)
[2018-11-10] MEDS: DIVALPROEX EXTENDED RELEASE 500 MG TAB PO SCH ×2 (12:57→21:26)
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
[2018-11-10] MEDS: ACETAMINOPHEN 325 MG TAB PO PRN (23:10)
[2018-11-11] MEDS: ACETAMINOPHEN 325 MG TAB PO PRN ×2 (03:14→19:37)
[2018-11-11] MEDS ORDERED: GABAPENTIN 600 MG TAB PO SCH (06:00)
[2018-11-11] MEDS: DIVALPROEX EXTENDED RELEASE 500 MG TAB PO SCH ×2 (08:59→21:08)
[2018-11-11] MEDS: risperiDONE 2 MG TABLET PO SCH ×2 (08:59→21:08)
[2018-11-11] MEDS: NICOTINE 14 MG/24 HR PATCH TD SCH (09:00)
[2018-11-11] MEDS: METOPROLOL SUCC 25MG EXT REL TAB PO SCH (09:00)
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
[2018-11-12] MEDS: NICOTINE 14 MG/24 HR PATCH TD SCH (07:21)
[2018-11-12] MEDS: risperiDONE 2 MG TABLET PO SCH (07:21)
[2018-11-12] MEDS: DIVALPROEX EXTENDED RELEASE 500 MG TAB PO SCH (07:21)
[2018-11-12] MEDS: METOPROLOL SUCC 25MG EXT REL TAB PO SCH (07:21)
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
== END 2018-11-12 10:21 | disposition home or self-care (01) | DRG 885 ==
LOC: ED 08:21 → 3S 16:59

== ENCOUNTER 2018-11-13 01:01 | Inpatient (IN) ==
[2018-11-13] MEDS ORDERED: SULFAMETHOXAZOLE/TRIMETHOPRIM DS 800/160MG TAB PO ONE (01:12)
[2018-11-13 01:35] LABS: Appearance Urine Clear (Clear); Bilirubin Urine Negative (Negative); Blood Urine Negative (Negative); Color Urine Yellow; Glucose Urine UA Negative (Negative); Ketones Urine Negative (Negative); Leukocyte Esterase Urine Negative (Negative); Nitrite Urine Negative (Negative); Protein Urine Negative (Negative); Specific Gravity Urine 1.009 (1.000-1.030); Urobilinogen Urine Negative (Negative)
[2018-11-13 01:56] LABS: Amphetamines+Metham, Urine Neg (Neg); Barbiturates, Urine Neg (Neg); Benzodiazepine, Urine Neg (Neg); Cocaine, Urine Neg (Neg); MDMA (Ecstacy), Urine Neg (Neg); Methadone, Urine Neg (Neg); Opiate, Urine Neg (Neg); Phencyclidine, Urine Neg (Neg)
[2018-11-13 02:16] LABS: Basophils # (auto) 0.01 K/uL (0-0.2); Basophils % (auto) 0.2 %; Eosinophils # (auto) 0.09 K/uL (0-0.5); Eosinophils % (auto) 1.7 %; Hematocrit (blood only) 36.7 % (42-52); Hemoglobin 12.6 g/dL (14.0-18.0); Immature Granulocytes # (auto) 0.01 K/uL (0.00-0.02); Immature Granulocytes % (auto) 0.2 %; Lymphocytes # (auto) 1.28 K/uL (1.2-3.4); Lymphocytes % (auto) 24.7 %; Mean Corpuscular Hgb Conc 34.3 g/dL (32-36); Mean Corpuscular Volume 95.6 fL (80-100); Mean Platelet Volume 9.6 fL (7.4-10.4); Monocytes # (auto) 0.57 K/uL (0.11-0.59); Neutrophils # (auto) 3.22 K/uL (1.4-6.5); Neutrophils % (auto) 62.2 %; Platelet Count 192 K/uL (130-400); RDW Standard Deviation 41.9 fL (36.4-46.3); Red Blood Count 3.84 M/uL (4.7-6.1); White Blood Count 5.18 K/uL (4.8-10.8)
[2018-11-13 02:33] LABS: Albumin Level 3.8 gm/dl (3.4-5.0); BUN Creatinine Ratio 23.7 (10-20); Calcium 8.5 mg/dl (8.5-10.1); Creatinine Clr Calc Pharmacy 188.8 ml/min; Est GFR (African American) 136.1; Est GFR (Non-African American) 117.5; Potassium 3.7 mmol/L (3.5-5.1)
[2018-11-13 02:44] LABS: Albumin Globulin Ratio 1.2 (0.9-2); Bilirubin,Total 0.4 mg/dl (0.2-1); Globulin 3.3 gm/dl (2.5-4.0); Total Protein 7.1 gm/dl (6.4-8.2)
[2018-11-13] MEDS ORDERED: LORazepam 1 MG TAB PO STA (02:45)
[2018-11-13] MEDS ORDERED: ACETAMINOPHEN 500 MG TAB PO STA (02:45)
[2018-11-13 02:58] LABS: Acetaminophen < 2 ug/ml (10-30); Salicylate 2.3 mg/dl (2.8-20)
[2018-11-13] MEDS ORDERED: HALOPERIDOL LACTATE 5 MG/ML 1 ML VIAL ONE (03:16)
[2018-11-13] MEDS ORDERED: LORazepam 2 MG/ML VIAL (IM USE) ONE (03:17)
[2018-11-13] MEDS ORDERED: HALOPERIDOL LACTATE 5 MG/ML 1 ML VIAL IM STA (03:21)
[2018-11-13] MEDS ORDERED: LORazepam 2 MG/ML VIAL (IM USE) IM STA (03:21)
--- NOTE | 2018-11-13 04:54 | Emergency Department Note ---
Entered by Phyllis Zhang acting as a scribe for Stephanie Thomas DO History of Present Illness General Chief complaint: Mental Health Evaluation Stated complaint: MENTAL HEALTH EVALUATION Time Seen by Provider: 11/13/18 01:12 Source: patient History of Present Illness Provider complaint: Mental evaluation Onset (ago): hour(s) less than 1 Location: head Pain Consistency: + other (mental health ) Maximum Pain Intensity: 4 Relieved By: + none Exacerbated By: + none Associated symptoms: + denies other symptoms The patient is a 58 y/o male who presents to the emergency department for evaluation of mental health prior to arrival. The patient states that he had been in the hospital for mental evaluation for 8 days and was released today. He notes that he was brought back by police because someone called the mobile solutions architect while he was on his midnight walk. The patient states that he gets seizures and headaches for which he takes medication. Generally Ibuprofen or Tylenol relieves the headaches but he is unsure what his seizure medication is. The patient was staying at a hotel. The [facility] police were called there because the patient was making homicidal threats. Home Medications Home Medications Medication Instructions Recorded Confirmed Type metoprolol succinate 25 mg PO QAM 06/27/18 11/13/18 History pantoprazole 20 mg PO DAILY 10/20/18 11/13/18 History multivitamin [Daily-Terence] 1 tab PO QAM 30 Days #30 tab 10/23/18 11/13/18 Rx divalproex 500 mg PO BID #60 tab 11/12/18 11/13/18 Rx risperidone 2 mg PO BID #60 tab 11/12/18 11/13/18 Rx Allergies Allergy/AdvReac Type Severity Reaction Status Date / Time ibuprofen Allergy Unknown FACIAL Verified 10/20/18 23:23 SWELLING Past Med/Surg History Medical History GERD (gastroesophageal reflux disease) (Chronic) Alcohol abuse (Chronic) Tobacco abuse (Chronic) History of traumatic brain injury (Chronic) ~45 YEARS AGO Seizure (Chronic) Thrombocytopenia (Chronic) PAF (paroxysmal atrial fibrillation) (Chronic) follows with Dr. Jackman Mood disorder (Chronic) Malnutrition related to chronic disease (Chronic) Surgical History History of herniorrhaphy (Chronic) UMBILICAL HERNIA (RIGHT ABOVE THE GROIN CENTER ABDOMEN) Family History Father Heart disease Mother Pancreatic cancer Social History Preferred Language: Sudanese Communication Ability: Effective Visual Impairment: No Limitations Beliefs That Will Affect Care: None marital status: Single Current Living Situation: Other Current Living Situation Comment: FRIEND other: Sales Operations Consultant Feels Safe at Home: Yes Smoking Status: Current every day smoker Tobacco Type: cigarettes, cigars and smokeless tobacco Cigarettes Per Day: 20 Second Hand Exposure: Yes (parents smoked) Hx Alcohol Use: Yes Alcohol type: beer Hx Substance Use: Yes substance use type: marijuana Review of Systems See HPI for pertinent positives & negatives. and A total of 10 systems reviewed and were otherwise negative Physical Exam Vital Signs Vital Signs - 24 hr 11/13/18 01:05 11/13/18 03:01 11/13/18 03:50 Temperature 36.7 C Temperature Source Oral Sepsis Recent Fever Within 48 Hours No Sepsis New/Unexplained Change in Mental Status No Sepsis Action Taken by Nursing No Action Required Pulse Rate 90 Pulse Rate [Right Finger] 68 86 Respiratory Rate 18 18 20 Respiratory Effort / Characteristics Non-Labored Spontaneous Respiratory Depth Normal Blood Pressure 124/84 Blood Pressure [Right Arm] 106/73 116/71 Blood Pressure Mean 97 Blood Pressure Mean [Right Arm] 84 86 Pulse Oximetry 100 98 92 Oxygen Delivery Method Room Air Room Air Room Air 11/13/18 04:05 11/13/18 04:20 Temperature Temperature Source Sepsis Recent Fever Within 48 Hours Sepsis New/Unexplained Change in Mental Status Sepsis Action Taken by Nursing Pulse Rate Pulse Rate [Right Finger] 85 91 H Respiratory Rate 22 24 Respiratory Effort / Characteristics Respiratory Depth Blood Pressure Blood Pressure [Right Arm] 135/72 152/89 H Blood Pressure Mean Blood Pressure Mean [Right Arm] 93 110 Pulse Oximetry 95 96 Oxygen Delivery Method Room Air Room Air General: Elevated affect with rapid, pressured, speech. HEENT: Head - normocephalic and atraumatic Pupils are equal, round, and reactive to light. Extraocular eye muscles are intact, and sclera are anicteric. Nose - moist nasal mucosa without discharge. Mouth - moist buccal mucosa. Oropharynx is nonerythematous and there is no tonsillar exudate or edema noted. Neck: Supple; no JVD, nuchal rigidity, cervical lymphadenopathy. Heart: Regular rate and rhythm. There is a normal S1 and S2 with no murmurs, clicks, or gallops appreciated. Lungs: Clear to auscultation bilaterally with no wheezes, rales, or rhonchi. Abdomen: Soft, completely nontender, nondistended, with good bowel sounds. There are no palpable pulsatile masses or hepatosplenomegaly. There is no guarding, rigidity, or rebound noted. Extremities: No evidence of cyanosis, clubbing, or edema. There are easily palpable peripheral pulses. Skin: warm and dry with good turgor, tattoos, and no rashes. Psych: Confused, delusional, thoughts of grandiosity. The patient continues to say that he is to get on an airplane this morning at 4 AM to fly to [place] to be with his ex-fianc, by his corvette, and move into a new home that is currently being built. Course 0140: The patient was evaluated in room A06. A complete history and physical exam was performed. Laboratory studies were drawn as above. 0245: Ordered Acetaminophen 1000 mg PO, Ativan 2mg PO 0318: Patient became aggressive with nursing staff and radio station manager. 0320: Patient was put in leather restraints and chemical restraints. 0321: Ordered Haldol, 10mg IM, Ativan 2mg IM. 0403: Patient is resting comfortably, but made threatening remarks to the radio station manager about me. I singed the 302 and he will be evaluated by [address] [place] [address]. 0526: The patient has been accepted to [address] [place] [address], they requested additional Haldol be given. 0528: Ordered Haldol, 5mg PO 0545: Because the patient was sleeping, the staff from [facility] decided not to suggest the patient receive Haldol. Administered Medications Discontinued Medications Acetaminophen (Tylenol) 1,000 mg PO NOW STA Stop: 11/13/18 02:46 Last Admin: 11/13/18 02:53 Dose: 1,000 mg Documented by: [id number] Haloperidol Lactate (Haldol) Confirm Administered Dose 10 mg .ROUTE .Blood cell Storage-MED ONE Stop: 11/13/18 03:17 Last Admin: 11/13/18 03:20 Dose: 10 mg Documented by: [id number] Haloperidol Lactate (Haldol) 10 mg IM NOW STA Stop: 11/13/18 03:22 Last Admin: 11/13/18 04:26 Dose: Not Given Documented by: [id number] Lorazepam (Ativan) 2 mg PO NOW STA Stop: 11/13/18 02:46 Last Admin: 11/13/18 02:53 Dose: 2 mg Documented by: [id number] Lorazepam (Ativan) Confirm Administered Dose 2 mg .ROUTE .STK-MED ONE Stop: 11/13/18 03:18 Last Admin: 11/13/18 03:20 Dose: 2 mg Documented by: [id number] Lorazepam (Ativan) 2 mg IM NOW STA Stop: 11/13/18 03:22 Last Admin: 11/13/18 04:26 Dose: Not Given Documented by: [id number] Trimethoprim/Sulfamethoxazole (Septra Ds 800/160mg Tab) 1 tab PO NOW ONE Stop: 11/13/18 01:13 Last Admin: 11/13/18 02:53 Dose: Not Given Documented by: [id number] Medical Decision Making Differential Diagnosis Differential diagnosis: acute psychosis, delusional thoughts, medication noncompliance, alcohol abuse, drug abuse, homicidal threats Medical Records Attestation: I reviewed the patient's medical records. Home Medications Current Medication List: was personally reviewed by me Laboratory Data Attestation: I reviewed the patient's lab results. Result diagrams: 11/13/18 02:03 11/13/18 02:03 Lab Results 11/13/18 11/13/18 11/13/18 Range/Units 01:12 01:12 02:03 WBC 5.18 (4.8-10.8) K/uL RBC 3.84 L (4.7-6.1) M/uL Hgb 12.6 L (14.0-18.0) g/dL Hct 36.7 L (42-52) % MCV 95.6 (80-100) fL MCH 32.8 (25-34) pg MCHC 34.3 (32-36) g/dL RDW Std Deviation 41.9 (36.4-46.3) fL RDW Coeff of Durga 12.0 (11.5-14.5) % Plt Count 192 (130-400) K/uL MPV 9.6 (7.4-10.4) fL Immature Gran % (Auto) 0.2 % Neut % (Auto) 62.2 % Lymph % (Auto) 24.7 % Bergen % (Auto) 11.0 % Eos % (Auto) 1.7 % Baso % (Auto) 0.2 % Immature Gran # (Auto) 0.01 (0.00-0.02) K/uL Neut # (Auto) 3.22 (1.4-6.5) K/uL Lymph # (Auto) 1.28 (1.2-3.4) K/uL Bergen # (Auto) 0.57 (0.11-0.59) K/uL Eos # (Auto) 0.09 (0-0.5) K/uL Baso # (Auto) 0.01 (0-0.2) K/uL Sodium (136-145) mmol/L Potassium (3.5-5.1) mmol/L Chloride (98-107) mmol/L Carbon Dioxide (21-32) mmol/L Anion Gap (3-11) BUN (7-18) mg/dl Creatinine (0.6-1.4) mg/dl Est Cr Clr Drug Dosing ml/min Est GFR ( Amer) Est GFR (Non-Af Amer) BUN/Creatinine Ratio (10-20) Glucose (70-99) mg/dl Calcium (8.5-10.1) mg/dl Total Bilirubin (0.2-1) mg/dl AST (15-37) U/L ALT (12-78) U/L Alkaline Phosphatase (45-117) U/L Total Protein (6.4-8.2) gm/dl Albumin (3.4-5.0) gm/dl Globulin (2.5-4.0) gm/dl Albumin/Globulin Ratio (0.9-2) TSH (0.300-4.500) uIu/ml Urine Color Yellow Urine Appearance Clear (Clear) Urine pH 7.0 (4.5-7.5) Ur Specific Burlison 1.009 (1.000-1.030) Urine Protein Negative (Negative) Urine Glucose (UA) Negative (Negative) Urine Ketones Negative (Negative) Urine Blood Negative (Negative) Urine Nitrite Negative (Negative) Urine Bilirubin Negative (Negative) Urine Urobilinogen Negative (Negative) Ur Leukocyte Esterase Negative (Negative) Salicylates (2.8-20) mg/dl Urine Opiates Screen Neg (Neg) Ur Methadone, Qual Neg (Neg) Acetaminophen (10-30) ug/ml Urine Barbiturates Neg (Neg) Ur Phencyclidine (PCP) Neg (Neg) U Amphetamin/Meth Scrn Neg (Neg) MDMA (Ecstasy) Screen Neg (Neg) U Benzodiazepines Scrn Neg (Neg) Ur Cocaine Metabolite Neg (Neg) U Marijuana (THC) Screen Neg (Neg) Ethyl Alcohol mg/dL (0-3) mg/dl 11/13/18 11/13/18 11/13/18 Range/Units 02:03 02:03 02:03 WBC (4.8-10.8) K/uL RBC (4.7-6.1) M/uL Hgb (14.0-18.0) g/dL Hct (42-52) % MCV (80-100) fL MCH (25-34) pg MCHC (32-36) g/dL RDW Std Deviation (36.4-46.3) fL RDW Coeff of Durga (11.5-14.5) % Plt Count (130-400) K/uL MPV (7.4-10.4) fL Immature Gran % (Auto) % Neut % (Auto) % Lymph % (Auto) % Bergen % (Auto) % Eos % (Auto) % Baso % (Auto) % Immature Gran # (Auto) (0.00-0.02) K/uL Neut # (Auto) (1.4-6.5) K/uL Lymph # (Auto) (1.2-3.4) K/uL Bergen # (Auto) (0.11-0.59) K/uL Eos # (Auto) (0-0.5) K/uL Baso # (Auto) (0-0.2) K/uL Sodium 140 (136-145) mmol/L Potassium 3.7 (3.5-5.1) mmol/L Chloride 107 (98-107) mmol/L Carbon Dioxide 29 (21-32) mmol/L Anion Gap 4.0 (3-11) BUN 13 (7-18) mg/dl Creatinine 0.53 L (0.6-1.4) mg/dl Est Cr Clr Drug Dosing 188.8 ml/min Est GFR ( Amer) 136.1 Est GFR (Non-Af Amer) 117.5 BUN/Creatinine Ratio 23.7 H (10-20) Glucose 94 (70-99) mg/dl Calcium 8.5 (8.5-10.1) mg/dl Total Bilirubin 0.4 (0.2-1) mg/dl AST 49 H (15-37) U/L ALT 79 H (12-78) U/L Alkaline Phosphatase 93 (45-117) U/L Total Protein 7.1 (6.4-8.2) gm/dl Albumin 3.8 (3.4-5.0) gm/dl Globulin 3.3 (2.5-4.0) gm/dl Albumin/Globulin Ratio 1.2 (0.9-2) TSH 0.911 (0.300-4.500) uIu/ml Urine Color Urine Appearance (Clear) Urine pH (4.5-7.5) Ur Specific B[place]ison (1.000-1.030) Urine Protein (Negative) Urine Glucose (UA) (Negative) Urine Ketones (Negative) Urine Blood (Negative) Urine Nitrite (Negative) Urine Bilirubin (Negative) Urine Urobilinogen (Negative) Ur Leukocyte Esterase (Negative) Salicylates 2.3 L (2.8-20) mg/dl Urine Opiates Screen (Neg) Ur Methadone, Qual (Neg) Acetaminophen < 2 L (10-30) ug/ml Urine Barbiturates (Neg) Ur Phencyclidine (PCP) (Neg) U Amphetamin/Meth Scrn (Neg) MDMA (Ecstasy) Screen (Neg) U Benzodiazepines Scrn (Neg) Ur Cocaine Metabolite (Neg) U Marijuana (THC) Screen (Neg) Ethyl Alcohol mg/dL < 3.0 (0-3) mg/dl Blood Pressure Blood Pressure Findings: Elevated blood pressure Blood Pressure Disposition: elevated BP felt to be situational MDM Narrative The patient is a 58 y/o male who presents to the emergency department for evaluation of mental health prior to arrival. The patient was just discharged from [facility] earlier today after being admitted there for 8 days. The patient was staying at a hotel where he was noted to be delusional. Police were called when he made some homicidal statements. The patient denies any drug or alcohol use and states that he took his last dose of his medications today. He appears to be extremely manic with a tangential thought process. The case was discussed with staff from [facility] who are familiar with this patient and they will readmit him. Impression & Plan Hannah, Homicidal ideation Critical Care Time I have personally spent 30 minutes of critical care time in the direct management of this patient. This includes bedside care, interpretation of diagnostic studies, and testing, discussion with consultants, patient, and family members, and other required patient management activities. This 30 minutes is in excess of all separately billable procedures. Critical Care Time: Yes Total Critical Care Time: 30 Discharge Plan Visit Data Chief Complaint: Mental Health Evaluation Stated Complaint: MENTAL HEALTH EVALUATION ED Provider: Stephanie Thomas Discharge Problem: Hannah, Homicidal ideation Patient Disposition: Admitted As Inpatient Forms Stand Alone Forms: My [facility] Prescriptions Prescriptions: No Action pantoprazole 20 mg tablet,delayed release (DR/EC) 20 mg PO DAILY RF: 0 multivitamin [Daily-Terence] Tablet 1 tab PO QAM 30 Days Qty: 30 RF: 0 metoprolol succinate 25 mg tablet extended release 24 hr 25 mg PO QAM RF: 0 risperidone 2 mg Tablet 2 mg PO BID Qty: 60 RF: 0 divalproex 500 mg Tablet Extended Release 24 Hr 500 mg PO BID Qty: 60 RF: 0 Referrals Referrals: Elkin Lorenzo MD [Primary Care Provider] - The scribe's documentation has been prepared under my direction and personally reviewed by me in its entirety. I confirm that the note above accurately reflects all work, treatment, procedures, and medical decision making performed by me.
[2018-11-13] MEDS ORDERED: ALUMINUM/MAGNESIUM SUSP 30 ML UDC PO PRN (05:23)
[2018-11-13] MEDS ORDERED: SODIUM CHLORIDE 0.65% NA SOLN 45 ML (OCEAN) PRN (05:23)
[2018-11-13] MEDS ORDERED: MAGNESIUM HYDROXIDE SUSP 30 ML UDC PO PRN (05:23)
[2018-11-13] MEDS ORDERED: HALOPERIDOL 5 MG TAB PO STA (05:28)
[2018-11-13] MEDS ORDERED: DIVALPROEX EXTENDED RELEASE 500 MG TAB PO SCH (09:00)
[2018-11-13] MEDS ORDERED: risperiDONE 2 MG TABLET PO SCH (09:00)
--- NOTE | 2018-11-13 09:10 | History & Physical ---
Date of Service November 13, 2018 Impression / Recommendations Impression 58-year-old single homeless male with a history of bipolar disorder and multiple recent contacts due to manic and psychotic symptoms and erratic behavior, as well as a history of polysubstance abuse with severe alcohol use disorder and a history of alcohol withdrawal, cannabis abuse, and recent methamphetamine and cocaine abuse who was discharged yesterday after a 5-day involuntary psychiatric hospitalization and re-presented to the ER within 24 hours of discharge due to ongoing psychosis, sam, erratic and threatening behavior. He was combative and threatening in the ER, continues to threaten hospital staff here with bodily harm, and according to police threatened to kill people at a hot and [place] yesterday. He is manic and psychotic, with mood lability, irritability, agitation, loosening of associations/flight of ideas, grandiosity, pressured and excessive speech, decreased sleep, and lacks insight into his condition or the need for treatment. He had been started on risperidone and Depakote during his recent hospitalization, we will continue to titrate these to effective doses, while using haloperidol and lorazepam for acute agitation and psychosis. He required IM medications and restraints in the ER due to threatening and combative behavior, so will be maintained on a private room here, with use of security as needed. He has a clear imminent risk of harm to both himself and others given his manic and psychotic symptoms, disorientation, and ability to provide for his own basic needs including housing, safety, and medical care, and repeated threats to harm or kill others, including here in the hospital. There will be a 303 hearing tomorrow, and he will likely need, at the very least, an involuntary outpatient commitment. (1) Bipolar 1 disorder: 6/5 -current episode manic, severe, with psychosis. -Continue involuntary hospitalization, and petition for a 303 involuntary commitment given the likely need for long-term inpatient treatment given pattern of instability, severe symptoms, inability to function or provide for his own basic needs including housing and medical treatment, and risk of harm to others as evidenced by threats to kill people at the hotel the day prior to presentation, threats to hospital staff in the ER, and violent behavior. -Continue risperidone and increase to 2 mg every morning and 3 mg nightly. Ord er fasting glucose and lipid profile for monitoring on an atypical antipsychotic. -Continue Depakote and increase to 500 mg every morning and 1000 mg nightly, and check a trough level in 5 days (ordered for 11/18/2018). -Haloperidol 10 mg p.o./IM and Lorazepam 1 mg p.o./IM every 4 hours as needed psychosis or agitation. - Patient has had 5 head CTs and one brain MRI since 06/2018; no acute abnormali ties, but notable for patchy white matter hypodensities (moderate subcortical and periventricular microangiopathic disease) and atrophy. TSH has been checked several times in the last month alone, and is within normal limits. CMP notable for elevated AST and ALT, which has been consistent for at least the past year, and is actually improved somewhat since December 2017. UA is normal with no signs o f infection, and although he has had multiple positive drug screens in the past month, his drug screen on presentation overnight was negative. Hepatitis A IgM and antibody, hepatitis B antigen and IgM antibody, and hepatitis C antibody were nonreactive in 10/2018. RPR was nonreactive in 12/2017. No identified organic cause of his mood and psychotic symptoms, and past history of mental illness is not known. Most appropriate diagnoses based on available information is bipolar disorder type I and polysubstance abuse. -File for 303 involuntary commitment with hearing tomorrow. Consider the need for long-term inpatient treatment at the [facility] versus involuntary outpatient commitment. Present on Admission?: Yes (2) Homicidal ideation: 11/13 -medically necessary private room for safety. -Homicide checks. -PO and IM medications ordered as above for agitation/aggressive behavior. Present on Admission?: Yes (3) Seizure: 11/13 -patient has reported a history of seizures after a head injury years ago, but this has not been confirmed. At the time of his 11/08/2018 hospitalization, he reported being prescribed Keppra, but neurology records indicated concern that it may increase his emotional lability, so he was switch ed to Depakote for both seizure control and mood stabilization. Previous neurology consultations reviewed; they saw him in 06/2018 and 10/2018. At the time of the most recent consultation, the patient reported noncompliance with Keppra as he felt it destabilized mood, so gabapentin 300 mg 3 times daily was recommended. His EEG was normal at that time, there was no known history of seizure disorder, and they suspected any seizure activity was due to alcohol withdrawal. No seizure activity observed during his U admissions. Continue Depakote, and increase as above. Present on Admission?: Yes (4) Cannabis use disorder, mild, abuse: 11/13 -long-standing history of substance abuse, including alcohol, cannabis , methamphetamine, and cocaine; avoid use of controlled substances especially outside of the hospital due to the high risk of abuse/misuse/negative outcomes. -UDS was positive for THC on admission 11/08/2018, but drug screen is negative on this admission. Nevertheless, once his mental status improves, he will require ongoing psychoeducation regarding the risks of continued substance abuse, as he is clearly decompensated over the past month in the context of heavy drug use. -Will refer for outpatient mental health and substance abuse treatment prior to discharge. Present on Admission?: Yes (5) Alcohol abuse: 11/13 -patient reports being sober for 2 years, although information in the medical record contradicts this. 10/20/2018 he had a blood alcohol level of 267.4 in the ER, and UDS was positive for THC. 10/18/2018 drug screen was positive for methamphetamine (confirmatory result positive with a level of 1020) and THC as well as a BAL of 175.3. 10/15/2018 UDS was positive for cocaine and methamphetamine, and 06/27/2018 BAL was 199. He is a poor/unreliable historian and we have not been able to obtain collateral from friends or family. -He is not at risk for withdrawal currently, as he was in the hospital for 5 days and was discharged for less than 24 hours prior to being readmitted, and drug screen was negative in the ER on this presentation. Present on Admission?: Yes (6) Nicotine addiction: 11/13 -offer nicotine patch and gum for cravings. Offer smoking cessation education. Present on Admission?: Yes (7) Methamphetamine abuse: Inventory Assets Strengths: Has insurance/access to care, premorbid good functioning Needs: Prolonged hospitalization for symptom stabilization, sobriety from substances, robust outpatient care Risk Factors Assessment Male: Yes : Yes Do You Have Access To A Gun?: No Health Problems: Yes Mental Health Diagnoses: Yes Substance Use Disorders: Yes Previous Psychiatric Hospitalization: Yes Smoker: Yes Protective Factors Assessment : No Responsible for Young Children: No Employed: No (disabled) Stable Relationships: No Supportive Family: No Good Rapport with Provider: No Psychiatric History Identifying Data FREDA OM is a 58-year-old M who is currently homeless, has a history of bipolar disorder and substance abuse, and was admitted on 11/13/18 05:23 on a 302 involuntary commitment for erratic behavior, sam and homicidal ideation. He had just been discharged from the [facility] on 11/12/2018 after a 5-day hospitalization. Chief Complaint "What!?" History of Present Illness Patient was hospitalized on the [facility] on an involuntary commitment from 11/08/18 11/12/18. During that hospitalization, he was started on risperidone and Depakote , and attempts were made to contact his sister and Adult Protective Services worker, neither of whom returned phone calls. [facility] was contacted and provided collateral information, and he was to meet with her after discharge to work on housing options, while staying in a hotel temporarily. He was discharged AMA at the conclusion of his 302 involuntary commitment, as he remained manic, and was unwilling to sign involuntarily, but did not meet criteria for a 303 involuntary commitment. According to records, he returned to the ER <24 hours after discharge with police, was disoriented and delusional. Police reported they were called to the [facility] in an [place] with the patient had threatened to "kill everyone there." The patient told police he was going to walk to [place], was disoriented, did not know the date or time, and said that he had just arrived home from [place] where he had killed 17 people. He said he was going to meet President Leti in the morning for a dinner. He told ER staff that he had been on the behavioral health unit where he was helping patients by "changing their diapers." He said that he had $100,000 waiting for him in [place], and that 12 women were writing him love letters while he was in the hospital. He said he had a billionaire uncle who is going to buy the hospital and give everyone a raise. His mood was labile, alternating between happy, angry, and tearful, was noted to be hyperverbal, tangential, and grandiose. He threatened an ER physician, stating "I will crush both of his fucking legs," and told ER staff "I could kill you from a mile away." He stated he did not drink alcohol in 2 years, but had a gallon of vodka at home and was going to "get wasted tonight." He demanded to leave to go to [place], and became agitated and combative when informed he was being involuntarily committed. He received 10 mg of Haldol and 4 mg of lorazepam in the emergency room. His drug screen was negative, and he has had 5 head CTs in the past 4-1/2 months, as well as a brain MRI in 06/2018, which showed no acute findings, but patchy white matter hypodensities (moderate subcortical and periventricular microangiopathic disease) and atrophy. On admission he was resumed on risperidone 2 mg twice daily and Depakote 500 mg twice daily. On my assessment today, the patient was seen in his room, where he is lying in bed in a darkened room but awake. He is uncooperative and agitated, frequently swearing and interrupting. He gives conflicting reports, initially stating "I never left the hospital" when asked what happened yesterday after discharge, and later stating he was "at home nice and peaceful," and does not know why he was brought back or readmitted. He denies ever being at a [facility] and [place], and says the police "gave me a free ride here to get checked out for my trip to [place]." When asked about the threats he made to others, he says "I hope to hell I did, about 10 people I want to pound the fuck outta, all the guards in this place." He continues to escalate, making derogatory comments about the hospital and staff, stating "I don't give a fuck, need to get out of this fucki ng dump, I'm supposed to be in [place]!" Attempted to explain the commitment process, informed patient that we were petitioning for a 303 hearing to be held tomorrow, but he continued to interrupt, swear, and escalates, so the interview was terminated. Past Psychiatric History Previous Psych History: Patient uncooperative with interview today, but records indicate that he has endorsed a history of multiple psychiatric hospitalizations in the past, but refused to state where or when. He does not believe that he has mental illness. Current Psychiatric Diagnosis: Bipolar Disorder, polysubstance abuse Outpatient Services: None Previous Psych Admissions: [facility] 11/08/18 - 11/12/18 on a 302 involuntary commitment for psychotic sam. Others, details unknown. Do You Have Access To A Gun?: No History of Previous Suicide Attempt: No Past Medication Trials: Unknown Past Head Trauma/Neuro History History of Concussion/Seizure: Yes Patient reports a history of seizures, which are unconfirmed. Allergies Allergy/AdvReac Type Severity Reaction Status Date / Time ibuprofen Allergy Unknown FACIAL Verified 10/20/18 23:23 SWELLING Home Medications Home Medications Medication Instructions Recorded Confirmed Type metoprolol succinate 25 mg PO QAM 06/27/18 11/13/18 History pantoprazole 20 mg PO DAILY 10/20/18 11/13/18 History multivitamin [Daily-Terence] 1 tab PO QAM 30 Days #30 tab 10/23/18 11/13/18 Rx divalproex 500 mg PO BID #60 tab 11/12/18 11/13/18 Rx risperidone 2 mg PO BID #60 tab 11/12/18 11/13/18 Rx Family History Family History of: Doesn't Know Alcohol History Hx of Alcohol Use Over the Past 12 Months: Yes (Seen in the ER numerous times in 10/2018 with elevated blood alcohol levels and has a history of alcohol withdrawal.) Smoking Use Have You Smoked or Used Tobacco Products in the Last 30 Days: Yes tobacco type: cigarettes, cigars and smokeless tobacco Smoking Status: Current every day smoker Substance History Hx of Prescription Med Misuse Over the Past 12 Months: No Hx of Over the Counter Med Misuse Over the Past 12 Months: No Hx of Inhalent Misuse Over the Past 12 Months: No Hx of Organic Substance Use Over the Past 12 Months: Yes (Cannabis -multiple positive drug screens in the past several months) Hx of Illegal Substances/Street Drug Use Over Past 12 Months: Yes (Cocaine and methamphetamine -positive drug screen in 10/2018) Problems as a Result of Past Substance Use: Life out of Control and Other (Hospitalization, worsening psychiatric symptoms) Problems as a Result of Past Substance Use Comments: within the last month, has been positive for pot, cocaine, meth, amphe Personal History Living Arrangements: Homeless Born In: [place], [place] Employment Status: Unemployed (Per records, 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 Apperance: + disheveled; + inappropriately dressed and + inappropriately groomed Lying in bed in a darkened room, shirtless. Unkempt and malodorous. Eye Contact: + poor eye contact Motor Behavior: no abnormal motor movements Speech: + loud speech Frequent expletives Affect: + irritable affect and + angry affect Mood: + angry mood Thought Process: + looseness of associations Thought Content: + delusions (Grandiose) Homicidal Thoughts: + reports homicidal thoughts States he wants to hurt hospital staff, specifically security guards. Yesterday threatened multiple ER staff, and per police report on presentation yesterday he threatened to kill people at a hotel and mild burn. He also reported that he had just returned from the [facility] where he killed multiple individuals. Unknown, patient uncooperative with interview. Cognition: + recent memory not intact, + remote memory not intact and + attention not intact Insight: + severely impaired insight Judgement: + severely impaired judgement Vital Signs (Past 24 Hours): Last Vital Signs Temp 36.9 C 11/13/18 06:26 Pulse 85 11/13/18 06:26 Resp 16 11/13/18 06:26 BP 118/86 11/13/18 06:26 Pulse Ox 96 11/13/18 05:55 Exam Statement: A physical exam was performed in the ER prior to admission to the unit by Dr. Thomas. I accept that physical as correct/medical clearance for the inpatient physical exam. Results & Data Laboratory Results Laboratory Results - last 24 hr 11/13/18 11/13/18 11/13/18 01:12 01:12 02:03 WBC 5.18 RBC 3.84 L Hgb 12.6 L Hct 36.7 L MCV 95.6 MCH 32.8 MCHC 34.3 RDW Std Deviation 41.9 RDW Coeff of Durga 12.0 Plt Count 192 MPV 9.6 Immature Gran % (Auto) 0.2 Neut % (Auto) 62.2 Lymph % (Auto) 24.7 Routt % (Auto) 11.0 Eos % (Auto) 1.7 Baso % (Auto) 0.2 Immature Gran # (Auto) 0.01 Neut # (Auto) 3.22 Lymph # (Auto) 1.28 Routt # (Auto) 0.57 Eos # (Auto) 0.09 Baso # (Auto) 0.01 Sodium Potassium Chloride Carbon Dioxide Anion Gap BUN Creatinine Est Cr Clr Drug Dosing Est GFR ( Amer) Est GFR (Non-Af Amer) BUN/Creatinine Ratio Glucose Calcium Total Bilirubin AST ALT Alkaline Phosphatase Total Protein Albumin Globulin Albumin/Globulin Ratio TSH Urine Color Yellow Urine Appearance Clear Urine pH 7.0 Ur Specific Lamont 1.009 Urine Protein Negative Urine Glucose (UA) Negative Urine Ketones Negative Urine Blood Negative Urine Nitrite Negative Urine Bilirubin Negative Urine Urobilinogen Negative Ur Leukocyte Esterase Negative Salicylates Urine Opiates Screen Neg Ur Methadone, Qual Neg Acetaminophen Urine Barbiturates Neg Ur Phencyclidine (PCP) Neg U Amphetamin/Meth Scrn Neg MDMA (Ecstasy) Screen Neg U Benzodiazepines Scrn Neg Ur Cocaine Metabolite Neg U Marijuana (THC) Screen Neg Ethyl Alcohol mg/dL 11/13/18 11/13/18 11/13/18 02:03 02:03 02:03 WBC RBC Hgb Hct MCV MCH MCHC RDW Std Deviation RDW Coeff of Durga Plt Count MPV Immature Gran % (Auto) Neut % (Auto) Lymph % (Auto) Routt % (Auto) Eos % (Auto) Baso % (Auto) Immature Gran # (Auto) Neut # (Auto) Lymph # (Auto) Routt # (Auto) Eos # (Auto) Baso # (Auto) Sodium 140 Potassium 3.7 Chloride 107 Carbon Dioxide 29 Anion Gap 4.0 BUN 13 Creatinine 0.53 L Est Cr Clr Drug Dosing 188.8 Est GFR ( Amer) 136.1 Est GFR (Non-Af Amer) 117.5 BUN/Creatinine Ratio 23.7 H Glucose 94 Calcium 8.5 Total Bilirubin 0.4 AST 49 H ALT 79 H Alkaline Phosphatase 93 Total Protein 7.1 Albumin 3.8 Globulin 3.3 Albumin/Globulin Ratio 1.2 TSH 0.911 Urine Color Urine Appearance Urine pH Ur Specific Lamont Urine Protein Urine Glucose (UA) Urine Ketones Urine Blood Urine Nitrite Urine Bilirubin Urine Urobilinogen Ur Leukocyte Esterase Salicylates 2.3 L Urine Opiates Screen Ur Methadone, Qual Acetaminophen < 2 L Urine Barbiturates Ur Phencyclidine (PCP) U Amphetamin/Meth Scrn MDMA (Ecstasy) Screen U Benzodiazepines Scrn Ur Cocaine Metabolite U Marijuana (THC) Screen Ethyl Alcohol mg/dL < 3.0 Current Inpatient Medications Current Inpatient Medications: Current Inpatient Medications Acetaminophen (Tylenol) 650 mg PO Q4H PRN PRN Reason: Headache or Minor Fever Stop: 12/13/18 05:22 Al Hydrox/Mg Hydrox/Simethicone (Maalox) 30 ml PO Q4H PRN PRN Reason: GI Upset Stop: 12/13/18 05:22 Divalproex Sodium (Depakote Extended Release) 500 mg PO BID KAYLAN Stop: 12/13/18 08:59 Hydroxyzine HCl (Vistaril) 50 mg PO HSZ PRN PRN Reason: Insomnia Stop: 12/13/18 05:22 Hydroxyzine HCl (Vistaril) 25 mg PO Q4H PRN PRN Reason: Anxiety Stop: 12/13/18 05:22 Magnesium Hydroxide (Milk Of Magnesia) 30 ml PO DAILY PRN PRN Reason: Heartburn Stop: 12/13/18 05:22 Nicotine (Nicoderm Cq) 14 mg TD QAM KAYLAN Stop: 12/13/18 08:59 Nicotine Polacrilex (Nicorette 2mg) 1 piece MT UD PRN PRN Reason: Nicotine Withdrawal Stop: 12/13/18 05:22 Risperidone (Risperdal) 2 mg PO BID KAYLAN Stop: 12/13/18 08:59 Sodium Chloride ([place] Nasal) 1 - 2 sprays NA PRN PRN PRN Reason: Nasal Dryness/Congestion Stop: 12/13/18 05:22 CPT Code CPT Code Initial Hospital Care: 23215
[2018-11-13] MEDS ORDERED: HALOPERIDOL LACTATE 5 MG/ML 1 ML VIAL IM PRN (09:12)
[2018-11-13] MEDS ORDERED: HALOPERIDOL 10 MG TABLET PO PRN (09:12)
[2018-11-13] MEDS ORDERED: LORazepam 2 MG/ML VIAL (IM USE) IM PRN (09:13)
[2018-11-13] MEDS ORDERED: LORazepam 1 MG TAB PO PRN (09:13)
[2018-11-13] MEDS: NICOTINE 14 MG/24 HR PATCH TD SCH (10:58)
[2018-11-13] MEDS: DIVALPROEX EXTENDED RELEASE 500 MG TAB PO SCH ×2 (11:42→21:09)
[2018-11-13] MEDS: risperiDONE 2 MG TABLET PO SCH (11:42)
--- NOTE | 2018-11-13 12:04 | Psychiatric Consultation ---
Date of Consultation November 13, 2018 Impression / Recommendations Impression agree with Dr. Valero: 58-year-old single homeless male with a history of bipolar disorder and multiple recent contacts due to manic and psychotic symptoms and erratic behavior, as well as a history of polysubstance abuse with severe alcohol use disorder and a history of alcohol withdrawal, cannabis abuse, and recent methamphetamine and cocaine abuse who was discharged yesterday after a 5- day involuntary psychiatric hospitalization and re-presented to the ER within 24 hours of discharge due to ongoing psychosis, sam, erratic and threatening behavior. He was combative and threatening in the ER, continues to threaten hospital staff here with bodily harm, and according to police threatened to kill people at a [facility] and [place] yesterday. He is manic and psychotic, with mood lability, irritability, agitation, loosening of associations/flight of ideas, grandiosity, pressured and excessive speech, decreased sleep, and lacks insight into his condition or the need for treatment. He had been started on risperidone and Depakote during his recent hospitalization, we will continue to titrate these to effective doses, while using haloperidol and lorazepam for acute agitation and psychosis. He required IM medications and restraints in the ER due to threatening and combative behavior, so will be maintained on a private room here, with use of security as needed. He has a clear imminent risk of harm to both himself and others given his manic and psychotic symptoms, disorientation, and ability to provide for his own basic needs including housing, safety, and medical care, and repeated threats to harm or kill others, including here in the hospital. There will be a 303 hearing tomorrow, and he will likely need, at the very least, an involuntary outpatient commitment. (1) Bipolar 1 disorder: I agree that patient's manic and threatening behavior is related to his mental health condition and he has shown grossly inappropriate judgement and ability to maintain himself outside of the hospital setting. without psychiatric medication (particularly antipsychotics) he is at imminent risk of danger or seriously bodily harm to self or others and should receive medication over objection. Inventory Assets Strengths: Has insurance/access to care, premorbid good functioning Needs: Prolonged hospitalization for symptom stabilization, sobriety from substances, robust outpatient care Risk Factors Assessment Male: Yes : Yes Do You Have Access To A Gun?: No Health Problems: Yes Mental Health Diagnoses: Yes Substance Use Disorders: Yes Previous Psychiatric Hospitalization: Yes Smoker: Yes Protective Factors Assessment : No Responsible for Young Children: No Employed: No (disabled) Stable Relationships: No Supportive Family: No Good Rapport with Provider: No Psych History Chief Complaint "I hate this f ing place, you're keeping me from going to [place]". 2nd opinion re: possible forced meds History of Present Illness Patient known to me from last stay, also 302 and was out of the hospital for <24 hrs before decompensating and making threats. He did take some of his oral medication just now but has been irritable, restless, and manic. Past Psychiatric History Current Psychiatric Diagnosis: Bipolar Disorder, polysubstance abuse Do You Have Access To A Gun?: No History of Previous Suicide Attempt: No Describe Attempts in the Past: Denies Allergies Allergy/AdvReac Type Severity Reaction Status Date / Time ibuprofen Allergy Unknown FACIAL Verified 10/20/18 23:23 SWELLING Home Medications Home Medications Medication Instructions Recorded Confirmed Type metoprolol succinate 25 mg PO QAM 06/27/18 11/13/18 History pantoprazole 20 mg PO DAILY 10/20/18 11/13/18 History multivitamin [Daily-Terence] 1 tab PO QAM 30 Days #30 tab 10/23/18 11/13/18 Rx divalproex 500 mg PO BID #60 tab 11/12/18 11/13/18 Rx risperidone 2 mg PO BID #60 tab 11/12/18 11/13/18 Rx Personal History Living Arrangements: Homeless Born In: [place], grew up in [place] Employment Status: Unemployed (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 in the past Feels Safe at Home: Yes Smoking Status: Current every day smoker Tobacco Type: cigarettes, cigars and smokeless tobacco Cigarettes Per Day: 20 Second Hand Exposure: Yes (parents smoked) Hx Alcohol Use: Yes Alcohol type: beer Hx Substance Use: Yes substance use type: marijuana, crack/cocaine and methamphetamine Last Used Substance Other:: 10/2018 Physical Exam Psychiatric: Orientation: alert Apperance: + disheveled; + inappropriately dressed and + inappropriately groomed Eye Contact: + poor eye contact Motor Behavior: no abnormal motor movements Speech: + loud speech Affect: + irritable affect and + angry affect Mood: + angry mood Thought Process: + looseness of associations Thought Content: + delusions (Grandiose) Homicidal Thoughts: + reports homicidal thoughts Cognition: + recent memory not intact, + remote memory not intact and + attention not intact Insight: + severely impaired insight Judgement: + severely impaired judgement Vital Signs (Past 24 Hours): Last Vital Signs Temp 36.9 C 11/13/18 06:26 Pulse 85 11/13/18 06:26 Resp 16 11/13/18 06:26 BP 118/86 11/13/18 06:26 Pulse Ox 96 11/13/18 05:55 Results & Data Medications Administered Divalproex Sodium (Depakote Extended Release) [facility] [place]: 12/14/18 08:59 Last Admin: 11/13/18 11:42 Dose: 500 mg Documented by: [id number] Nicotine (Nicoderm Cq) 14 mg TD QAM [facility] Stop: 12/13/18 08:59 Last Admin: 11/13/18 10:58 Dose: Not Given Documented by: [id number] Risperidone (Risperdal) 2 mg PO QAM [facility] Stop: 12/14/18 08:59 Last Admin: 11/13/18 11:42 Dose: 2 mg Documented by: [id number]
[2018-11-13] MEDS: ACETAMINOPHEN 325 MG TAB PO PRN (13:14)
[2018-11-13] MEDS: risperiDONE 3 MG TABLET PO SCH (21:09)
--- NOTE | 2018-11-14 08:32 | Psychiatric Progress Note ---
Date of Service November 14, 2018 Impression / Recommendations Impression 58-year-old single homeless male with a history of bipolar disorder and multiple recent contacts due to manic and psychotic symptoms and erratic behavior, as well as a history of polysubstance abuse with severe alcohol use disorder and a history of alcohol withdrawal, cannabis abuse, and recent methamphetamine and cocaine abuse, who was discharged from the [facility] 11/12/2018 after a 5-day involuntary psychiatric hospitalization for psychotic sam, and re-presented to the ER within 24 hours of discharge due to ongoing psychosis, sam, erratic and threatening behavior. He was combative and threatening in the ER, has threatened hospital staff here with bodily harm, and according to police threatened to kill people at a hotel in [place]. He is manic and psychotic, with mood lability, irritability, agitation, loosening of associations/flight of ideas, grandiosity, pressured and excessive speech, decreased sleep, and lacks insight into his condition or the need for treatment. He had been started on risperidone and Depakote during his recent hospitalization, doses of which were increased on admission 11/13/2018, but is refusing them at times. We will also use haloperidol and lorazepam for acute agitation and psychosis. He required IM medications and restraints in the ER due to threatening and combative behavior, so will be maintained on a private room here, with use of security as needed. He has a clear imminent risk of harm to both himself and others given his manic and psychotic symptoms, disorientation, and ability to provide for his own basic needs including housing, safety, and medical care, and repeated threats to harm or kill others, including here in the hospital. He is on a 303 hearing as of today, and we will need case management services, assistance with housing, referrals for outpatient treatment, hopefully involvement of his family/supports, and possibly an outpatient commitment. (1) Bipolar 1 disorder: 11/13 -current episode manic, severe, with psychosis. -Continue involuntary hospitalization, and petition for a 303 involuntary commitment given the likely need for long-term inpatient treatment given pattern of instability, severe symptoms, inability to function or provide for his own basic needs including housing and medical treatment, and risk of harm to others as evidenced by threats to kill people at the hotel the day prior to presentation, threats to hospital staff in the ER, and violent behavior. -Continue risperidone and increase to 2 mg every morning and 3 mg nightly. Order fasting glucose and lipid profile for monitoring on an atypical antipsychotic. -Continue Depakote and increase to 500 mg every morning and 1000 mg nightly, and check a trough level in 5 days (ordered for 11/18/2018). -Haloperidol 10 mg p.o./IM and Lorazepam 1 mg p.o./IM every 4 hours as needed psychosis or agitation. - Patient has had 5 head CTs and one brain MRI since 06/2018; no acute abnormalities, but notable for patchy white matter hypodensities (moderate subcortical and periventricular microangiopathic disease) and atrophy. TSH has been checked several times in the last month alone, and is within normal limits. CMP notable for elevated AST and ALT, which has been consistent for at least the past year, and is actually improved somewhat since December 2017. UA is normal with no signs of infection, and although he has had multiple positive drug screens in the past month, his drug screen on presentation overnight was negative. Hepatitis A IgM and antibody, hepatitis B antigen and IgM antibody, and hepatitis C antibody were nonreactive in 10/2018. RPR was nonreactive in 12/2017. No identified organic cause of his mood and psychotic symptoms, and past history of mental illness is not known. Most appropriate diagnoses based on available information is bipolar disorder type I and polysubstance abuse. -File for 303 involuntary commitment with hearing tomorrow. Consider the need for long-term inpatient treatment at the [facility] versus involuntary outpatient commitment. 11/14 -303 commitment granted -Patient has intermittently refused medications. He has been seen by 2 physicians, both of whom recommend medications over objection. Will order Haldol 10 mg IM backup for refusal of p.o. medications. -Continue risperidone and Depakote as above. Fasting lipid profile and glucose checked today for monitoring on an atypical antipsychotic and are within normal limits. -Attempt to contact his sister and involve her in treatment. He has mentioned multiple girlfriends, unclear if this is delusional. We will continue to explore any other supports. His outpatient nurse outreach case manager through his insurance company has been informed of his admission, and hopefully can assist in exploring housing options. Present on Admission?: Yes (2) Homicidal ideation: 11/13 -medically necessary private room for safety. -Homicide checks. -PO and IM medications ordered as above for agitation/aggressive behavior. Present on Admission?: Yes (3) Seizure: 11/13 -patient has reported a history of seizures after a head injury years ago, but this has not been confirmed. At the time of his 11/08/2018 hospitalization, he reported being prescribed Keppra, but neurology records indicated concern that it may increase his emotional lability, so he was switched to Depakote for both seizure control and mood stabilization. Previous neurology consultations reviewed; they saw him in 06/2018 and 10/2018. At the time of the most recent consultation, the patient reported noncompliance with Keppra as he felt it destabilized mood, so gabapentin 300 mg 3 times daily was recommended. His EEG was normal at that time, there was no known history of seizure disorder, and they suspected any seizure activity was due to alcohol withdrawal. No seizure activity observed during his U admissions. Continue Depakote, and increase as above. Present on Admission?: Yes (4) Cannabis use disorder, mild, abuse: 11/13 -long-standing history of substance abuse, including alcohol, cannabis, methamphetamine, and cocaine; avoid use of controlled substances especially outside of the hospital due to the high risk of abuse/misuse/negative outcomes. -UDS was positive for THC on admission 11/08/2018, but drug screen is negative on this admission. Nevertheless, once his mental status improves, he will require ongoing psychoeducation regarding the risks of continued substance abuse, as he is clearly decompensated over the past month in the context of heavy drug use. -Will refer for outpatient mental health and substance abuse treatment prior to discharge. Present on Admission?: Yes (5) Alcohol abuse: 11/13 -patient reports being sober for 2 years, although information in the medical record contradicts this. 10/20/2018 he had a blood alcohol level of 267.4 in the ER, and UDS was positive for THC. 10/18/2018 drug screen was positive for methamphetamine (confirmatory result positive with a level of 1020) and THC as well as a BAL of 175.3. 10/15/2018 UDS was positive for cocaine and methamphetamine, and 06/27/2018 BAL was 199. He is a poor/unreliable historian and we have not been able to obtain collateral from friends or family. -He is not at risk for withdrawal currently, as he was in the hospital for 5 days and was discharged for less than 24 hours prior to being readmitted, and drug screen was negative in the ER on this presentation. Present on Admission?: Yes (6) Nicotine addiction: 11/13 -offer nicotine patch and gum for cravings. Offer smoking cessation education. Present on Admission?: Yes Inventory Assets Strengths: Has insurance/access to care, premorbid good functioning Needs: Prolonged hospitalization for symptom stabilization, sobriety from substances, robust outpatient care Risk Factors Assessment Male: Yes : Yes Do You Have Access To A Gun?: No Health Problems: Yes Mental Health Diagnoses: Yes Substance Use Disorders: Yes Previous Psychiatric Hospitalization: Yes Smoker: Yes Protective Factors Assessment : No Responsible for Young Children: No Employed: No (disabled) Stable Relationships: No Supportive Family: No Good Rapport with Provider: No Interval History Identifying Information FREDA MO is a 58-year-old M who is currently homeless, has a history of bipolar disorder and substance abuse, and was admitted on 11/13/18 05:23 on a 302 involuntary commitment for erratic behavior, sam and homicidal ideation. He had just been discharged from the [facility] on 11/12/2018 after a 5-day hospitalization. He is on a 303 involuntary commitment as of 11/14/2018 Chief Complaint "Terrible, I'm not home, supposed to be in [place] yesterday to meet my ". Review of Systems Notes Agitated and unwilling to participate in ROS. Sleep Information Total Hours of Sleep: 10 Meal Information Percent Meal Consumed - Lunch: 100 Percent Meal Consumed - Dinner: 25 Subjective Subjective Patient was seen & assessed and interval progress reviewed with nursing and social work. Staff report he initially refused morning medications, but took them later with staff support. He then refused his HS medication and said he would not take medications, eat or drink, and would just lay in bed and . He has been excused from groups due to agitation and inappropriate behavior. He slept well overnight. On my assessment, he reports that he is angry he is in the hospital, making multiple derogatory statements about the facility in treatment, stating he needs to get out to go to [place] and propose to a woman there. 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 He says his sister is the president of the [employer], and he has another sister, but does not talk to her. He says he is not going to take medications because "they ain't done nothing in this dump for me. I was supposed to be here for 2 days but I've been here for 10. 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 He denies suicidal thoughts today, but when asked about his statements to nursing staff that he was going to refuse to eat, drink or take medications and would , he says "you're a bunch of pussies, I'm not a pussy." He says he is not going to go to groups, calling them "retarded classes," and wants to leave immediately. He attended and contested his 303 hearing, which was granted. Physical Exam Psychiatric Orientation: alert; + uncooperative Apperance: + disheveled; + inappropriately dressed and + inappropriately groomed Unkempt facial hair, malodorous, closed visibly soiled. Initially seen in his room where he was in bed short list, later attended the 303 hearing with clothing on, but visibly soiled. Eye Contact: + poor eye contact Motor Behavior: steady gait and station and no abnormal motor movements Hyperverbal, pressured, loud at times. Frequent expletives. Affect: + irritable affect "Terrible." Thought Process: + looseness of associations Thought Content: + delusions (Grandiose) Suicidal Thoughts: denies suicidal thoughts But made statements to staff last evening that he was going to refuse to eat or drink to end his life. Homicidal Thoughts: + reports homicidal thoughts Threatened to harm security guards Hallucinations: no auditory hallucinations Cognition: + recent memory not intact and + attention not intact Insight: + severely impaired insight Judgement: + severely impaired judgement Vital Signs (Past 24 Hours) Last Vital Signs Temp 36.9 C 11/13/18 06:26 Pulse 85 11/13/18 06:26 Resp 16 11/13/18 06:26 BP 118/86 11/13/18 06:26 Pulse Ox 96 11/13/18 05:55 Results & Data Current Inpatient Medications Current Inpatient Medications: Current Inpatient Medications Acetaminophen (Tylenol) 650 mg PO Q4H PRN PRN Reason: Headache or Minor Fever Stop: 12/13/18 05:22 Last Admin: 11/13/18 13:14 Dose: 650 mg Documented by: Al Hydrox/Mg Hydrox/Simethicone (Maalox) 30 ml PO Q4H PRN PRN Reason: GI Upset Stop: 12/13/18 05:22 Divalproex Sodium (Depakote Extended Release) 500 mg PO QAM [facility] Stop: 12/14/18 08:59 Last Admin: 11/13/18 11:42 Dose: 500 mg Documented by: Divalproex Sodium (Depakote Extended Release) 1,000 mg PO HS [facility] Stop: 12/13/18 21:59 Last Admin: 11/13/18 21:09 Dose: Not Given Documented by: Haloperidol (Haldol) 10 mg PO Q4H PRN PRN Reason: psychosis Stop: 12/13/18 09:11 Haloperidol Lactate (Haldol) 10 mg IM Q4H PRN PRN Reason: psychosis Stop: 12/13/18 09:11 Hydroxyzine HCl (Vistaril) 50 mg PO HSZ PRN PRN Reason: Insomnia Stop: 12/13/18 05:22 Hydroxyzine HCl (Vistaril) 25 mg PO Q4H PRN PRN Reason: Anxiety Stop: 12/13/18 05:22 Lorazepam (Ativan) 1 mg PO Q4H PRN PRN Reason: psychosis or agitation Stop: 12/13/18 09:12 Lorazepam (Ativan) 1 mg IM Q4H PRN PRN Reason: psychosis or agitation Stop: 12/13/18 09:12 Magnesium Hydroxide (Milk Of Magnesia) 30 ml PO DAILY PRN PRN Reason: Heartburn Stop: 12/13/18 05:22 Nicotine (Nicoderm Cq) 14 mg TD QAM [facility] Stop: 12/13/18 08:59 Last Admin: 11/13/18 10:58 Dose: Not Given Documented by: Nicotine Polacrilex (Nicorette 2mg) 1 piece MT UD PRN PRN Reason: Nicotine Withdrawal Stop: 12/13/18 05:22 Risperidone (Risperdal) 2 mg PO QAM [facility] Stop: 12/14/18 08:59 Last Admin: 11/13/18 11:42 Dose: 2 mg Documented by: Risperidone (Risperdal) 3 mg PO HS [facility] Stop: 12/13/18 21:59 Last Admin: 11/13/18 21:09 Dose: Not Given Documented by: Sodium Chloride ([place] Nasal) 1 - 2 sprays NA PRN PRN PRN Reason: Nasal Dryness/Congestion Stop: 12/13/18 05:22 Post Discharge Appointments Primary Care Physician Name Of Family Doctor: Dr. Escalona Therapist Name of Therapist: "Three of them re-tard" Tire Fixer Name of Tire Fixer: Mónica lambert [facility] CPT Code CPT Code 25176
[2018-11-14] MEDS: DIVALPROEX EXTENDED RELEASE 500 MG TAB PO SCH ×2 (09:12→20:58)
[2018-11-14] MEDS: NICOTINE 14 MG/24 HR PATCH TD SCH (09:12)
[2018-11-14] MEDS: risperiDONE 2 MG TABLET PO SCH (09:12)
[2018-11-14 09:38] LABS: Glucose Fasting 91 mg/dl (70-99)
[2018-11-14 09:45] LABS: Chol HDL Ratio 5; Cholesterol 174 mg/dl (0-200); HDL Cholesterol 34 mg/dl; LDL Cholesterol Calculated 122 mg/dl; Triglycerides 92 mg/dl (0-150); VLDL Cholesterol 18 mg/dl
[2018-11-14] MEDS ORDERED: HALOPERIDOL LACTATE 5 MG/ML 1 ML VIAL IM PRN (11:40)
[2018-11-14] MEDS: risperiDONE 3 MG TABLET PO SCH (20:59)
[2018-11-15] MEDS: DIVALPROEX EXTENDED RELEASE 500 MG TAB PO SCH ×2 (07:23→21:04)
[2018-11-15] MEDS: risperiDONE 2 MG TABLET PO SCH (07:23)
[2018-11-15] MEDS: NICOTINE 14 MG/24 HR PATCH TD SCH (07:23)
--- NOTE | 2018-11-15 15:41 | Psychiatric Progress Note ---
Date of Service November 15, 2018 Impression / Recommendations Impression 58-year-old single homeless male with a history of bipolar disorder and multiple recent contacts due to manic and psychotic symptoms and erratic behavior, as well as a history of polysubstance abuse with severe alcohol use disorder and a history of alcohol withdrawal, cannabis abuse, and recent methamphetamine and cocaine abuse, who was discharged from the [facility] 11/12/2018 after a 5-day involuntary psychiatric hospitalization for psychotic sam, and re-presented to the ER within 24 hours of discharge due to ongoing psychosis, sam, erratic and threatening behavior. The patient has been continued on risperidone, and the dose of risperidone has been increased to a combined dosage of 5 mg a day. Is also been placed on valproic acid 500 mg in the morning 1000 mg in the evening. Although there has been some improvement and that the patient is less emotionally labile, less irritable, and somewhat less hyperkinetic, he remains floridly psychotic, and continues to reveals classic symptoms of sam, including pressured speech, flight of ideas, excessive energy, expansive and elated mood, and delusional grandiosity. The patient has essentially no insight into the fact that he is mentally ill, although he is able to trust the treatment team enough to agree to adhere to treatment. Our impression is that he is quite unlikely to be adherent with psychiatric medications upon discharge. Further, we are not seeing findings that indicate that risperidone, in combination with valproic acid as a mood stabilizer, has not made any significant difference. Accordingly, with the patient's consent, we have decid ed to begin a trial of aripiprazole 10 mg a day, and then cross titrate aripiprazole with risperidone, as indicated. The dose of aripiprazole will be titrated as indicated, and the goal will be to switch to a long-acting form of aripiprazole (Abilify Maintena). (1) Bipolar 1 disorder: 6/5 -current episode manic, severe, with psychosis. -Continue involuntary hospitalization, and petition for a 303 involuntary commitment given the likely need for long-term inpatient treatment given pattern of instability, severe symptoms, inability to function or provide for his own basic needs including housing and medical treatment, and risk of harm to others as evidenced by threats to kill people at the hotel the day prior to presentation, threats to hospital staff in the ER, and violent behavior. -Continue risperidone and increase to 2 mg every morning and 3 mg nightly. Order fasting glucose and lipid profile for monitoring on an atypical antipsychotic. -Continue Depakote and increase to 500 mg every morning and 1000 mg nightly, and check a trough level in 5 days (ordered for 11/18/2018). -Haloperidol 10 mg p.o./IM and Lorazepam 1 mg p.o./IM every 4 hours as needed psychosis or agitation. - Patient has had 5 head CTs and one brain MRI since 06/2018; no acute abnormalities, but notable for patchy white matter hypodensities (moderate subcortical and periventricular microangiopathic disease) and atrophy. TSH has been checked several times in the last month alone, and is within normal limits. CMP notable for elevated AST and ALT, which has been consistent for at least the past year, and is actually improved somewhat since December 2017. UA is normal with no signs of infection, and although he has had multiple positive drug screens in the past month, his drug screen on presentation overnight was negative. Hepatitis A IgM and antibody, hepatitis B antigen and IgM antibody, and hepatitis C antibody were nonreactive in 10/2018. RPR was nonreactive in 12/2017. No identified organic cause of his mood and psychotic symptoms, and past history of mental illness is not known. Most appropriate diagnoses based on available information is bipolar disorder type I and polysubstance abuse. -File for 303 involuntary commitment with hearing tomorrow. Consider the need for long-term inpatient treatment at the [facility] hospital versus involuntary outpatient commitment. 11/14 -303 commitment granted -Patient has intermittently refused medications. He has been seen by 2 physicians, both of whom recommend medications over objection. Will order Haldol 10 mg IM backup for refusal of p.o. medications. -Continue risperidone and Depakote as above. Fasting lipid profile and glucose checked today for monitoring on an atypical antipsychotic and are within normal limits. -Attempt to contact his sister and involve her in treatment. He has mentioned multiple girlfriends, unclear if this is delusional. We will continue to explore any other supports. His outpatient case repairer through his insurance company has been informed of his admission, and hopefully can assist in exploring housing options. 11/15 -Today, the patient expresses willingness to adhere with medications as prescribed. Although he lacks substantial insight into his illness, he agrees that he will consent to a trial of aripiprazole 10 mg daily, with eventual goal of cross titrating aripiprazole and risperidone, while continuing valproic acid. -The patient remains floridly psychotic and continues to show marked symptoms of sam, including pressured speech, flight of ideas, increased energy, motoric hyperactivity, expansive mood, elated mood, and delusional grandiosity. -The patient gave us permission to speak with his sister. Information obtained is that he does not have a current girlfriend in [place], but had one perhaps 30 years ago. -Aripiprazole 10 mg daily, with a starting dose today, has been ordered. -Begin aripiprazole cross titration with risperidone, possibly beginning tomorrow, as tolerated. -Consider substituting Abilify Maintena, depending on response to oral aripiprazole. (2) Homicidal ideation: 11/13 -medically necessary private room for safety. -Homicide checks. -PO and IM medications ordered as above for agitation/aggressive behavior. 11/15 -We are maintaining a medically necessary private room. -The patient tells us that he is having no thoughts of harming other people, but he remains floridly manic. (3) Seizure: 11/13 -patient has reported a history of seizures after a head injury years ago, but this has not been confirmed. At the time of his 11/08/2018 hospitalization, he reported being prescribed Keppra, but neurology records indicated concern that it may increase his emotional lability, so he was switched to Depakote for both seizure control and mood stabilization. Previous neurology consultations reviewed; they saw him in 06/2018 and 10/2018. At the time of the most recent consultation, the patient reported noncompliance with Keppra as he felt it destabilized mood, so gabapentin 300 mg 3 times daily was recommended. His EEG was normal at that time, there was no known history of seizure disorder, and they suspected any seizure activity was due to alcohol withdrawal. No seizure activity observed during his U admissions. Continue Depakote, and increase as above. (4) Cannabis use disorder, mild, abuse: 11/13 -long-standing history of substance abuse, including alcohol, cannabis, methamphetamine, and cocaine; avoid use of controlled substances especially outside of the hospital due to the high risk of abuse/misuse/negative outcomes. -UDS was positive for THC on admission 11/08/2018, but drug screen is negative on this admission. Nevertheless, once his mental status improves, he will require ongoing psychoeducation regarding the risks of continued substance abuse, as he is clearly decompensated over the past month in the context of heavy drug use. -Will refer for outpatient mental health and substance abuse treatment prior to discharge. (5) Alcohol abuse: 11/13 -patient reports being sober for 2 years, although information in the medical record contradicts this. 10/20/2018 he had a blood alcohol level of 267.4 in the ER, and UDS was positive for THC. 10/18/2018 drug screen was positive for methamphetamine (confirmatory result positive with a level of 1020) and THC as well as a BAL of 175.3. 10/15/2018 UDS was positive for cocaine and methamphetamine, and 06/27/2018 BAL was 199. He is a poor/unreliable historian and we have not been able to obtain collateral from friends or family. -He is not at risk for withdrawal currently, as he was in the hospital for 5 days and was discharged for less than 24 hours prior to being readmitted, and drug screen was negative in the ER on this presentation. (6) Nicotine addiction: 11/13 -offer nicotine patch and gum for cravings. Offer smoking cessation education. Inventory Assets Strengths: Has insurance/access to care, premorbid good functioning, Needs: Prolonged hospitalization for symptom stabilization, sobriety from subs tances, robust outpatient care Risk Factors Assessment Male: Yes : Yes Do You Have Access To A Gun?: No Health Problems: Yes Mental Health Diagnoses: Yes Substance Use Disorders: Yes Previous Psychiatric Hospitalization: Yes Smoker: Yes Protective Factors Assessment : No Responsible for Young Children: No Employed: No (disabled) Stable Relationships: No Supportive Family: No Good Rapport with Provider: No Interval History Identifying Information FREDA MO is a 58-year-old M who is currently homeless, has a history of bipolar disorder and substance abuse, and was admitted on 11/13/18 05:23 on a 302 involuntary commitment for erratic behavior, sma and homicidal ideation. He had just been discharged from the [facility] on 11/12/2018 after a 5-day hospitalization. He is on a 303 involuntary commitment as of 11/14/2018 Chief Complaint "I'm doing real good". Review of Systems Sleep Information Total Hours of Sleep: 7.75 Meal Information Percent Meal Consumed - Breakfast: 100 Percent Meal Consumed - Lunch: 100 Percent Meal Consumed - Dinner: 100 Subjective Subjective Patient was seen & assessed and interval progress reviewed with Treatment Team. I met individually with the patient in order to assess his current mental status, gauge his response to treatment, coordinate any necessary changes in the patient's treatment regimen with him, and address issues and concerns of arise. I had started the patient on risperidone 2 mg twice a day a week ago today. He had been discharged earlier this week, and then readmitted. His dose of risperidone has subsequently been increased to 5 mg daily in divided dosages. In addition, the patient was started on valproic acid 500 mg in the morning and thousand milligrams in the evening. A valproic acid level is currently scheduled. Staff reports that the patient seems somewhat less intrusive, less motorically active, and perhaps less pressured. The patient tells me that he feels that the current admission, like the most recent previous admission, was "unnecessary." His assertion is that he "had seizure activity" in the emergency room, which is the reason that he was readmitted. When he was advised that he was brought to the emergency room because he had been threatening to kill people, the patient asserted that that was inaccurate information and that it had never happened. Last week, he had told me that he had been invited to the [place] by the president and the first lady in order to receive a "a [place] metal of appreciation," and that there was no set time for him to appear in [place], and so he believed that he was to simply present himself to the [facility] [facility] and he would be granted admission. Today, he tells me that he missed the opportunity to receive the metal from the president, but still hopes to meet the president and first lady, and says that he has been "invited out to dinner" the next time he is in [place]. However, he tells me that he does not plan to be in [place] in the near future and, instead, plans to leave the hospital and to travel to [place], [place], where he will be granted access to a lecture condominium and he will soon be to a woman who, according the patient, he has not seen in 3 years, but has known for 20, and, according to family reports, the woman in question has not had contact with the patient in approximately 30 years. 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 He assures me that the days during which drill instructors could physically assault recruits is over, and so he plans to "make them do one hell of a lot of push-ups!" The patient also tells me that is the next assignment will be to go to [facility] in order to bring back "up to 12" prisoners of war. When it was pointed out to him that the [place] War has been over for nearly 45 years, he said "well there are a lot of brainwashed POWs in [place] who do not realize they are not [place], and my job will be to reverse their brainwashing and make them realize that there really Americans." Records indicate that the patient has been sleeping reasonably well, and last night slept approximately 7.75 hrs. The patient, himself, says that he has been sleeping well, but has awakened several times in the night. We discussed various treatment approaches. He responded to my observation that he still seems "pretty hyper" by saying "Nah, this is just how I am. I talk fast. 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 The patient and I discussed various medication changes, and the patient ended standing in a willingness to adhere. Physical Exam Psychiatric Orientation: oriented x 3 Apperance: appropriately dressed and appropriately groomed Eye Contact: + fair eye contact Motor Behavior: + psychomotor agitation Speech: + pressured speech Affect: + elated affect "I am in a great mood!" Thought Process: + flight of ideas Thought Content: + delusions Suicidal Thoughts: denies suicidal thoughts Homicidal Thoughts: denies homicidal thoughts Hallucinations: no auditory hallucinations, no visual hallucinations, no tactile hallucinations and no gustatory hallucinations The patient's symptoms include what may be referred to as pseudologia fantastica, and it is very difficult to assess the voracity of much of what he says. Estimated Intelligence: average estimated intelligence Insight: + severely impaired insight Judgement: + severely impaired judgement Vital Signs (Past 24 Hours) Last Vital Signs Temp 36.3 C L 11/15/18 07:02 Pulse 102 H 11/15/18 07:03 Resp 18 11/15/18 07:02 BP 99/70 L 11/15/18 07:03 Pulse Ox 96 11/13/18 05:55 Results & Data Current Inpatient Medications Current Inpatient Medications: Current Inpatient Medications Acetaminophen (Tylenol) 650 mg PO Q4H PRN PRN Reason: Headache or Minor Fever Stop: 12/13/18 05:22 Last Admin: 11/13/18 13:14 Dose: 650 mg Documented by: Al Hydrox/Mg Hydrox/Simethicone (Maalox) 30 ml PO Q4H PRN PRN Reason: GI Upset Stop: 12/13/18 05:22 Aripiprazole (Abilify) 10 mg PO QAM [facility] Stop: 12/15/18 14:29 Divalproex S[facility] ([facility] Extended Release) [facility] Stop: 12/14/18 08:59 Last Admin: 11/15/18 07:23 Dose: 500 mg Documented by: Divalproex Sodium (Depakote Extended Release) 1,000 mg PO [facility] Stop: 12/13/18 21:59 Last Admin: 11/14/18 20:58 Dose: 1,000 mg Documented by: Haloperidol (Haldol) 10 mg PO Q4H PRN PRN Reason: psychosis Stop: 12/13/18 09:11 Haloperidol Lactate (Haldol) 10 mg IM Q4H PRN PRN Reason: psychosis Stop: 12/13/18 09:11 Haloperidol Lactate (Haldol) 10 mg IM BID PRN PRN Reason: refusal of PO meds Stop: 12/14/18 11:39 Hydroxyzine HCl (Vistaril) 50 mg PO HSZ PRN PRN Reason: Insomnia Stop: 12/13/18 05:22 Hydroxyzine HCl (Vistaril) 25 mg PO Q4H PRN PRN Reason: Anxiety Stop: 12/13/18 05:22 Lorazepam (Ativan) 1 mg PO Q4H PRN PRN Reason: psychosis or agitation Stop: 12/13/18 09:12 Lorazepam (Ativan) 1 mg IM Q4H PRN PRN Reason: psychosis or agitation Stop: 12/13/18 09:12 Magnesium Hydroxide (Milk Of Magnesia) 30 ml PO DAILY PRN PRN Reason: Heartburn Stop: 12/13/18 05:22 Nicotine (Nicoderm Cq) 14 mg TD QAM [facility] Stop: 12/13/18 08:59 Last Admin: 11/15/18 07:23 Dose: 14 mg Documented by: Nicotine Polacrilex (Nicorette 2mg) 1 piece MT UD PRN PRN Reason: Nicotine Withdrawal Stop: 12/13/18 05:22 Risperidone (Risperdal) 2 mg PO QAM [facility] Stop: 12/14/18 08:59 Last Admin: 11/15/18 07:23 Dose: 2 mg Documented by: Risperidone (Risperdal) 3 mg PO HS [facility] Stop: 12/13/18 21:59 Last Admin: 11/14/18 20:59 Dose: 3 mg Documented by: Sodium Chloride ([place] Nasal) 1 - 2 sprays NA PRN PRN PRN Reason: Nasal Dryness/Congestion Stop: 12/13/18 05:22 Post Discharge Appointments Primary Care Physician Name Of Family Doctor: Dr. Escalona Therapist Name of Therapist: "Three of them re-tard" Court Security Officer Name of Court Security Officer: Mónica lambert [facility] CPT Code CPT Code 33773
[2018-11-15] MEDS: ARIPiprazole 10 MG TAB PO SCH (16:53)
[2018-11-15] MEDS: risperiDONE 3 MG TABLET PO SCH (21:04)
--- NOTE | 2018-11-16 06:53 | Psychiatric Progress Note ---
Date of Service November 16, 2018 Impression / Recommendations Impression 58-year-old single homeless male with a history of bipolar disorder, polysubstance abuse with severe alcohol use disorder and a history of alcohol withdrawal, cannabis abuse, and recent methamphetamine and cocaine abuse, and multiple recent contacts due to manic and psychotic symptoms and erratic behavior, who was discharged from the [facility] 11/12/2018 after a 5-day involuntary psychiatric hospitalization for psychotic sam, and re-presented to the ER within 24 hours of discharge due to ongoing psychosis, sam, erratic and threatening behavior. He had initially been started on risperidone, which was switched to aripiprazole 11/15/2018. He was also started on valproic acid, which has been titrated. He is improving and that he is less emotionally labile and irritable, and somewhat less hyperactive, but remains manic and psychotic, with limited insight and judgment. Based on his recent behavior, he is unlikely to be adherent with psychiatric medications or treatment recommendations upon discharge, so we are recommending a long-acting form of aripiprazole (Abilify Maintena), and he will likely need an outpatient commitment. (1) Bipolar 1 disorder: 11/13 -current episode manic, severe, with psychosis. -Continue involuntary hospitalization, and petition for a 303 involuntary commitment given the likely need for long-term inpatient treatment given pattern of instability, severe symptoms, inability to function or provide for his own basic needs including housing and medical treatment, and risk of harm to others as evidenced by threats to kill people at the hotel the day prior to presentation, threats to hospital staff in the ER, and violent behavior. -Continue risperidone and increase to 2 mg every morning and 3 mg nightly. Order fasting glucose and lipid profile for monitoring on an atypical antipsychotic. -Continue Depakote and increase to 500 mg every morning and 1000 mg nightly, and check a trough level in 5 days (ordered for 11/18/2018). -Haloperidol 10 mg p.o./IM and Lorazepam 1 mg p.o./IM every 4 hours as needed psychosis or agitation. - Patient has had 5 head CTs and one brain MRI since 06/2018; no acute abnormalities, but notable for patchy white matter hypodensities (moderate subcortical and periventricular microangiopathic disease) and atrophy. TSH has been checked several times in the last month alone, and is within normal limits. CMP notable for elevated AST and ALT, which has been consistent for at least the past year, and is actually improved somewhat since December 2017. UA is normal with no signs of infection, and although he has had multiple positive drug screens in the past month, his drug screen on presentation overnight was negative. Hepatitis A IgM and antibody, hepatitis B antigen and IgM antibody, and hepatitis C antibody were nonreactive in 10/2018. RPR was nonreactive in 12/2017. No identified organic cause of his mood and psychotic symptoms, and past history of mental illness is not known. Most appropriate diagnoses based on available information is bipolar disorder type I and polysubstance abuse. -File for 303 involuntary commitment with hearing tomorrow. Consider the need for long-term inpatient treatment at the [facility] versus involuntary outpatient commitment. 11/14 -303 commitment granted -Patient has intermittently refused medications. He has been seen by 2 physicians, both of whom recommend medications over objection. Will order Haldol 10 mg IM backup for refusal of p.o. medications. -Continue risperidone and Depakote as above. Fasting lipid profile and glucose checked today for monitoring on an atypical antipsychotic and are within normal limits. -Attempt to contact his sister and involve her in treatment. He has mentioned multiple girlfriends, unclear if this is delusional. We will continue to explore any other supports. His outpatient case hardener through his insurance company has been informed of his admission, and hopefully can assist in exploring housing options. 11/15 -Today, the patient expresses willingness to adhere with medications as prescribed. Although he lacks substantial insight into his illness, he agrees that he will consent to a trial of aripiprazole 10 mg daily, with eventual goal of cross titrating aripiprazole and risperidone, while continuing valproic acid. -The patient remains floridly psychotic and continues to show marked symptoms of asm, including pressured speech, flight of ideas, increased energy, motoric hyperactivity, expansive mood, elated mood, and delusional grandiosity. -The patient gave us permission to speak with his sister. Information obtained is that he does not have a current girlfriend in [place], but had one perhaps 30 years ago. -Aripiprazole 10 mg daily, with a starting dose today, has been ordered. -Begin aripiprazole cross titration with risperidone, possibly beginning tomorrow, as tolerated. -Consider substituting Abilify Maintena, depending on response to oral aripiprazole. 11/16 -Continue aripiprazole 10 mg daily, and reduce risperidone to 2 mg twice daily. Continue to cross titration, and agree with Eric if aripiprazole is effective. (2) Homicidal ideation: 11/13 -medically necessary private room for safety. -Homicide checks. -PO and IM medications ordered as above for agitation/aggressive behavior. 11/15 -We are maintaining a medically necessary private room. -The patient tells us that he is having no thoughts of harming other people, but he remains floridly manic. (3) Seizure: 11/13 -patient has reported a history of seizures after a head injury years ago, but this has not been confirmed. At the time of his 11/08/2018 hospitalization, he reported being prescribed Keppra, but neurology records indicated concern that it may increase his emotional lability, so he was switched to Depakote for both seizure control and mood stabilization. Previous neurology consultations reviewed; they saw him in 06/2018 and 10/2018. At the time of the most recent consultation, the patient reported noncompliance with Keppra as he felt it destabilized mood, so gabapentin 300 mg 3 times daily was recommended. His EEG was normal at that time, there was no known history of seizure disorder, and they suspected any seizure activity was due to alcohol withdrawal. No seizure activity observed during his U admissions. Continue Depakote, and increase as above. (4) Cannabis use disorder, mild, abuse: 11/13 -long-standing history of substance abuse, including alcohol, cannabis, methamphetamine, and cocaine; avoid use of controlled substances especially outside of the hospital due to the high risk of abuse/misuse/negative outcomes. -UDS was positive for THC on admission 11/08/2018, but drug screen is negative on this admission. Nevertheless, once his mental status improves, he will require ongoing psychoeducation regarding the risks of continued substance abuse, as he is clearly decompensated over the past month in the context of heavy drug use. -Will refer for outpatient mental health and substance abuse treatment prior to discharge. (5) Alcohol abuse: 11/13 -patient reports being sober for 2 years, although information in the medical record contradicts this. 10/20/2018 he had a blood alcohol level of 267.4 in the ER, and UDS was positive for THC. 10/18/2018 drug screen was positive for methamphetamine (confirmatory result positive with a level of 1020) and THC as well as a BAL of 175.3. 10/15/2018 UDS was positive for cocaine and methamphetamine, and 06/27/2018 BAL was 199. He is a poor/unreliable historian and we have not been able to obtain collateral from friends or family. -He is not at risk for withdrawal currently, as he was in the hospital for 5 days and was discharged for less than 24 hours prior to being readmitted, and drug screen was negative in the ER on this presentation. (6) Nicotine addiction: 11/13 -offer nicotine patch and gum for cravings. Offer smoking cessation education. Inventory Assets Strengths: Has insurance/access to care, premorbid good functioning, Needs: Prolonged hospitalization for symptom stabilization, sobriety from substances, robust outpatient care Risk Factors Assessment Male: Yes : Yes Do You Have Access To A Gun?: No Health Problems: Yes Mental Health Diagnoses: Yes Substance Use Disorders: Yes Previous Psychiatric Hospitalization: Yes Smoker: Yes Protective Factors Assessment : No Responsible for Young Children: No Employed: No (disabled) Stable Relationships: No Supportive Family: No Good Rapport with Provider: No Interval History Identifying Information FREDA MO is a 58-year-old M who is currently homeless, has a history of bipolar disorder and substance abuse, and was admitted on 11/13/18 05:23 on a 302 involuntary commitment for erratic behavior, sam and homicidal ideation. He had just been discharged from the [facility] on 11/12/2018 after a 5-day hospitalization. He is on a 303 involuntary commitment as of 11/14/2018 Chief Complaint "Terrific, just hoping to get things worked out". Review of Systems Sleep Information Total Hours of Sleep: 7 Sleep Comments: pt on q-15 minute checks Meal Information Percent Meal Consumed - Breakfast: 100 Percent Meal Consumed - Lunch: 100 Percent Meal Consumed - Dinner: 100 Subjective Subjective Patient was seen & assessed and interval progress reviewed with nursing and social work. Staff report he has been compliant with medications, but less agitated and angry, but still expressing grandiose delusions. He has been more cooperative with care, agreed to sign releases for his sister, PCP, and case hardener through [employer] yesterday. His case hardener was contacted and stated that she had been assigned as a temporary case hardener, as he refused to work with a case hardener from the [facility] she states he has a long history of substance abuse, but no history of mood or psychotic disorder diagnoses until recently. There is a strong family history of drug and alcohol addiction in his brothers and father. He had been living with his brother, but kicked him out of the apartment in 06/2018, and started using methamphetamine at that time. She noted an acute change in him at that time, as he was disinhibited, was sexually inappropriate with her, drinking heavily, was not caring for his hygiene or living quarters. She stated that he did have an ex girlfriend from approximately 25 years ago who lived in [place], and a female named Gay who he had been using meth with. The patient has been noncompliant with medications, outpatient appointments, and she contacted Adult Protective Services due to concerns about his ability to care for himself. She stated that his sister Nadine works for the [employer] and lives [place], but his sister Melodie lives locally, although she left the country earlier this month to go to stand below. A new accounts representative from [facility] [employer] was in the process of becoming the patient's rep payee. The patient had not been paying rent, had been taking his belongings and appliances owned by his landlord outside to sell them, destroying property that belongs to others living in the home, and these things resulted in his eviction. After being discharged from the hospital earlier this week, he attempted to enter the apartment again, and other residents called police, who then picked him up at a hotel. She recommended he be assigned a case hardener through the [facility]. On my assessment, the patient states he is "wonderful, terrific," and that he has figured out the solution to his problems, which is to use the money he has in the bank to get an apartment. He states that he really wants to do is go to [place] and then [place], "but they don't want to hear that." He denies side effects to medications, though he does not really think that he needs them. He states that he was not really effected, me and my landlord just did not get along." He repeatedly states he has not used any substances in 2 years, then says "I know my BENEDICT was high, my girlfriend was mixing wine with the stuff I was drinking." He says "I'm done with that, don't like having hangovers." He states he needs to talk to the social media content manager today so that he can figure out where he is going to live and be discharged. Physical Exam Mental Examination Well-nourished well-developed male appearing slightly older than his stated age. Casually dressed, adequate grooming and hygiene, tattoos visible on bilateral upper extremities. Seated in no acute distress, with good eye contact and no abnormal movements. Cooperative with the assessment. Speech is excessive, mildly pressured, but normal volume and tone. Mood is "terrific," and affect is expansive and congruent. Thoughts are loose, but more organized than earlier in hospitalization, grandiose, without suicidal or homicidal ideation, and no hallucinations or paranoia. He is less focused on delusions of grandeur. Alert and oriented. Insight and judgment remain impaired. Vital Signs (Past 24 Hours) Last Vital Signs Temp 36.7 C 11/16/18 06:44 Pulse 77 11/16/18 06:45 Resp 18 11/16/18 06:44 BP 125/71 11/16/18 06:45 Pulse Ox 96 11/13/18 05:55 Results & Data Current Inpatient Medications Current Inpatient Medications: Current Inpatient Medications Acetaminophen (Tylenol) 650 mg PO Q4H PRN PRN Reason: Headache or Minor Fever Stop: 12/13/18 05:22 Last Admin: 11/13/18 13:14 Dose: 650 mg Documented by: Al Hydrox/Mg Hydrox/Simethicone (Maalox) 30 ml PO Q4H PRN PRN Reason: GI Upset Stop: 12/13/18 05:22 Aripiprazole (Abilify) 10 mg PO QAM [facility] Stop: 12/15/18 14:29 Last Admin: 11/15/18 16:53 Dose: 10 mg Documented by: Divalproex Sodium (Depakote Extended Release) 500 mg PO QAM [facility] Stop: 12/14/18 08:59 Last Admin: 11/15/18 07:23 Dose: 500 mg Documented by: Divalproex Sodium (Depakote Extended Release) 1,000 mg PO HS [facility] Stop: 12/13/18 21:59 Last Admin: 11/15/18 21:04 Dose: 1,000 mg Documented by: Haloperidol (Haldol) 10 mg PO Q4H PRN PRN Reason: psychosis Stop: 12/13/18 09:11 Haloperidol Lactate (Haldol) 10 mg IM Q4H PRN PRN Reason: psychosis Stop: 12/13/18 09:11 Haloperidol Lactate (Haldol) 10 mg IM BID PRN PRN Reason: refusal of PO meds Stop: 12/14/18 11:39 Hydroxyzine HCl (Vistaril) 50 mg PO HSZ PRN PRN Reason: Insomnia Stop: 12/13/18 05:22 Hydroxyzine HCl (Vistaril) 25 mg PO Q4H PRN PRN Reason: Anxiety Stop: 12/13/18 05:22 Lorazepam (Ativan) 1 mg PO Q4H PRN PRN Reason: psychosis or agitation Stop: 12/13/18 09:12 Lorazepam (Ativan) 1 mg IM Q4H PRN PRN Reason: psychosis or agitation Stop: 12/13/18 09:12 Magnesium Hydroxide (Milk Of Magnesia) 30 ml PO DAILY PRN PRN Reason: Heartburn Stop: 12/13/18 05:22 Nicotine (Nicoderm Cq) 14 mg TD QAM KAYLAN Stop: 12/13/18 08:59 Last Admin: 11/15/18 07:23 Dose: 14 mg Documented by: Nicotine Polacrilex (Nicorette 2mg) 1 piece MT UD PRN PRN Reason: Nicotine Withdrawal Stop: 12/13/18 05:22 Risperidone (Risperdal) 2 mg PO QAM KAYLAN Stop: 12/14/18 08:59 Last Admin: 11/15/18 07:23 Dose: 2 mg Documented by: Risperidone (Risperdal) 3 mg PO HS KAYLAN Stop: 12/13/18 21:59 Last Admin: 11/15/18 21:04 Dose: 3 mg Documented by: Sodium Chloride ([place] Nasal) 1 - 2 sprays NA PRN PRN PRN Reason: Nasal Dryness/Congestion Stop: 12/13/18 05:22 Post Discharge Appointments Primary Care Physician Name Of Family Doctor: Dr. Escalona Therapist Name of Therapist: "Three of them re-tard" Modern Languages Professor Name of Modern Languages Professor: Mónica lambert [facility] CPT Code CPT Code 03249
[2018-11-16] MEDS: DIVALPROEX EXTENDED RELEASE 500 MG TAB PO SCH ×2 (07:53→21:09)
[2018-11-16] MEDS: ARIPiprazole 10 MG TAB PO SCH (07:53)
[2018-11-16] MEDS: NICOTINE 14 MG/24 HR PATCH TD SCH (07:53)
[2018-11-16] MEDS: risperiDONE 2 MG TABLET PO SCH ×2 (07:53→21:10)
[2018-11-17] MEDS: ARIPiprazole 10 MG TAB PO SCH (07:20)
[2018-11-17] MEDS: DIVALPROEX EXTENDED RELEASE 500 MG TAB PO SCH ×2 (07:21→21:10)
[2018-11-17] MEDS: NICOTINE 14 MG/24 HR PATCH TD SCH (07:22)
[2018-11-17] MEDS: risperiDONE 2 MG TABLET PO SCH ×2 (07:22→21:10)
--- NOTE | 2018-11-17 08:20 | Psychiatric Progress Note ---
Date of Service November 17, 2018 Impression / Recommendations Impression 58-year-old single homeless male with a history of bipolar disorder, polysubstance abuse with severe alcohol use disorder and a history of alcohol withdrawal, cannabis abuse, and recent methamphetamine and cocaine abuse, and multiple recent contacts due to manic and psychotic symptoms and erratic behavior, who was discharged from the [facility] 11/12/2018 after a 5-day involuntary psychiatric hospitalization for psychotic sam, and re-presented to the ER within 24 hours of discharge due to ongoing psychosis, sam, erratic and threatening behavior. He had initially been started on risperidone, which was switched to aripiprazole 11/15/2018, with a plan for a long-acting injectable. He was also started on valproic acid, which has been titrated. He is improving, is less emotionally labile and irritable, less focused on grandiose delusions, but insight and judgment remain limited. Based on his recent behavior, he is unlikely to be adherent with psychiatric medications or treatment recommendations upon discharge, so we are recommending a long-acting form of aripiprazole (Abilify Maintena), and he will likely need an outpatient commitment. (1) Bipolar 1 disorder: 11/13 -current episode manic, severe, with psychosis. -Continue involuntary hospitalization, and petition for a 303 involuntary commitment given the likely need for long-term inpatient treatment given pattern of instability, severe symptoms, inability to function or provide for his own basic needs including housing and medical treatment, and risk of harm to others as evidenced by threats to kill people at the hotel the day prior to presentation, threats to hospital staff in the ER, and violent behavior. -Continue risperidone and increase to 2 mg every morning and 3 mg nightly. Order fasting glucose and lipid profile for monitoring on an atypical antipsychotic. -Continue Depakote and increase to 500 mg every morning and 1000 mg nightly, and check a trough level in 5 days (ordered for 11/18/2018). -Haloperidol 10 mg p.o./IM and Lorazepam 1 mg p.o./IM every 4 hours as needed psychosis or agitation. - Patient has had 5 head CTs and one brain MRI since 06/2018; no acute abnormalities, but notable for patchy white matter hypodensities (moderate subcortical and periventricular microangiopathic disease) and atrophy. TSH has been checked several times in the last month alone, and is within normal limits. CMP notable for elevated AST and ALT, which has been consistent for at least the past year, and is actually improved somewhat since December 2017. UA is normal with no signs of infection, and although he has had multiple positive drug screens in the past month, his drug screen on presentation overnight was negative. Hepatitis A IgM and antibody, hepatitis B antigen and IgM antibody, and hepatitis C antibody were nonreactive in 10/2018. RPR was nonreactive in 12/2017. No identified organic cause of his mood and psychotic symptoms, and past history of mental illness is not known. Most appropriate diagnoses based on available information is bipolar disorder type I and polysubstance abuse. -File for 303 involuntary commitment with hearing tomorrow. Consider the need for long-term inpatient treatment at the [facility] versus involuntary outpatient commitment. 11/14 -303 commitment granted -Patient has intermittently refused medications. He has been seen by 2 physicians, both of whom recommend medications over objection. Will order Haldol 10 mg IM backup for refusal of p.o. medications. -Continue risperidone and Depakote as above. Fasting lipid profile and glucose checked today for monitoring on an atypical antipsychotic and are within normal limits. -Attempt to contact his sister and involve her in treatment. He has mentioned multiple girlfriends, unclear if this is delusional. We will continue to explore any other supports. His outpatient senior case manager through his insurance company has been informed of his admission, and hopefully can assist in exploring housing options. 11/15 -Today, the patient expresses willingness to adhere with medications as prescribed. Although he lacks substantial insight into his illness, he agrees that he will consent to a trial of aripiprazole 10 mg daily, with eventual goal of cross titrating aripiprazole and risperidone, while continuing valproic acid. -The patient remains floridly psychotic and continues to show marked symptoms of sam, including pressured speech, flight of ideas, increased energy, motoric hyperactivity, expansive mood, elated mood, and delusional grandiosity. -The patient gave us permission to speak with his sister. Information obtained is that he does not have a current girlfriend in [place], but had one perhaps 30 years ago. -Aripiprazole 10 mg daily, with a starting dose today, has been ordered. -Begin aripiprazole cross titration with risperidone, possibly beginning tomorrow, as tolerated. -Consider substituting Abilify Maintena, depending on response to oral aripiprazole. 11/16 -Continue aripiprazole 10 mg daily, and reduce risperidone to 2 mg twice daily. Continue to cross titration, and agree with Eric if aripiprazole is effective. -Increase aripiprazole to 15 mg daily for tomorrow, and reduce risperidone to 2 mg at bedtime. We will contact outpatient senior case manager tomorrow for assistance in housing and referring for outpatient treatment. He apparently needs to get a new senior case manager within [facility], and will also need outpatient care with a psychiatrist and therapist, as well as a 304 outpatient commitment. (2) Homicidal ideation: 11/13 -medically necessary private room for safety. -Homicide checks. -PO and IM medications ordered as above for agitation/aggressive behavior. 11/15 -We are maintaining a medically necessary private room. -The patient tells us that he is having no thoughts of harming other people, but he remains floridly manic. (3) Seizure: 11/13 -patient has reported a history of seizures after a head injury years ago, but this has not been confirmed. At the time of his 11/08/2018 hospitalization, he reported being prescribed Keppra, but neurology records indicated concern that it may increase his emotional lability, so he was switched to Depakote for both seizure control and mood stabilization. Previous neurology consultations reviewed; they saw him in 06/2018 and 10/2018. At the time of the most recent consultation, the patient reported noncompliance with Keppra as he felt it destabilized mood, so gabapentin 300 mg 3 times daily was recommended. His EEG was normal at that time, there was no known history of seizure disorder, and they suspected any seizure activity was due to alcohol withdrawal. No seizure activity observed during his [facility] admissions. Continue Depakote, and increase as above. (4) Cannabis use disorder, mild, abuse: 11/13 -long-standing history of substance abuse, including alcohol, cannabis, methamphetamine, and cocaine; avoid use of controlled substances especially outside of the hospital due to the high risk of abuse/misuse/negative outcomes. -UDS was positive for THC on admission 11/08/2018, but drug screen is negative on this admission. Nevertheless, once his mental status improves, he will require ongoing psychoeducation regarding the risks of continued substance abuse, as he is clearly decompensated over the past month in the context of heavy drug use. -Will refer for outpatient mental health and substance abuse treatment prior to discharge. (5) Alcohol abuse: 11/13 -patient reports being sober for 2 years, although information in the medical record contradicts this. 10/20/2018 he had a blood alcohol level of 26 7.4 in the ER, and UDS was positive for THC. 10/18/2018 drug screen was positive for methamphetamine (confirmatory result positive with a level of 1020) and THC as well as a BAL of 175.3. 10/15/2018 UDS was positive for cocaine and methamphetamine, and 06/27/2018 BAL was 199. He is a poor/unreliable historian and we have not been able to obtain collateral from friends or family. -He is not at risk for withdrawal currently, as he was in the hospital for 5 days and was discharged for less than 24 hours prior to being readmitted, and drug screen was negative in the ER on this presentation. (6) Nicotine addiction: 11/13 -offer nicotine patch and gum for cravings. Offer smoking cessation education. Inventory Assets Strengths: Has insurance/access to care, premorbid good functioning, Needs: Prolonged hospitalization for symptom stabilization, sobriety from substances, robust outpatient care Risk Factors Assessment Male: Yes : Yes Do You Have Access To A Gun?: No Health Problems: Yes Mental Health Diagnoses: Yes Substance Use Disorders: Yes Previous Psychiatric Hospitalization: Yes Smoker: Yes Protective Factors Assessment : No Responsible for Young Children: No Employed: No (disabled) Stable Relationships: No Supportive Family: No Good Rapport with Provider: No Interval History Identifying Information FREDA MO is a 58-year-old M who is currently homeless, has a history of bipolar disorder and substance abuse, and was admitted on 11/13/18 05:23 on a 302 involuntary commitment for erratic behavior, sam and homicidal ideation. He had just been discharged from the [facility] on 11/12/2018 after a 5-day hospitalization. He is on a 303 involuntary commitment as of 11/14/2018 Chief Complaint "Great, everyone's real nice here". Review of Systems Sleep Information Total Hours of Sleep: 6 Sleep Comments: pt with LINDSEY @0500 and thereafter. pt pacing the hallway, appeared to be calm. pt waiting to turn on the tv @0600. pt on q-15 minute checks Meal Information Percent Meal Consumed - Breakfast: 100 Percent Meal Consumed - Lunch: 100 Percent Meal Consumed - Dinner: 100 Subjective Subjective Patient was seen & assessed and interval progress reviewed with nursing and social work. Staff report he attended and participated appropriately in groups yesterday, remains hyperverbal and very talkative with staff and peers, often walking laps during his free time. He continues to endorse elevated mood, and states his goal is to find a new apartment. Social work had attempted to reach his Sister Melodie who lives locally, but is currently out of the country on vacation, and will not be returning for another week. He has been taking medications as prescribed, and has not made threats to himself or others. On my assessment, the patient is working on a puzzle, states his mood remains "great!" He states staff have been kind and supportive, and he is hoping to contact his outpatient senior case manager tomorrow to start looking for a new apartment. He says he is "so stupid" that he "forgot I had money for an apartment in my bank account," and would not have needed to be readmitted had he remembered this. He says he left his last apartment because his landlord raise the rent, and says he can fully furnish an apartment as he has "lots of nice furniture." He continues to say that he would prefer to travel to [place] in [facility], "but they do not want to hear that, I need to get a stable place." He denies thoughts of harming himself or anyone else. Physical Exam Psychiatric Well-nourished well-developed male appearing his stated age. Casually dressed, good grooming and hygiene. Seated in no acute distress, with no abnormal movements. Good eye contact, cooperative with the assessment. Mood is "great!" Affect is expansive and congruent. Speech is excessive, rapid, with gruff voice. Thoughts are loose, less focused on delusions of grandeur, more reality based. Denies SI, HI, hallucinations, and paranoia. Alert and oriented. Insight and judgment are limited. Vital Signs (Past 24 Hours) Last Vital Signs Temp 36.4 C L 11/17/18 06:42 Pulse 94 H 11/17/18 06:42 Resp 18 11/17/18 06:42 BP 115/73 11/17/18 06:42 Pulse Ox 96 11/13/18 05:55 Results & Data Current Inpatient Medications Current Inpatient Medications: Current Inpatient Medications Acetaminophen (Tylenol) 650 mg PO Q4H PRN PRN Reason: Headache or Minor Fever Stop: 12/13/18 05:22 Last Admin: 11/13/18 13:14 Dose: 650 mg Documented by: Al Hydrox/Mg Hydrox/Simethicone (Maalox) 30 ml PO Q4H PRN PRN Reason: GI Upset Stop: 12/13/18 05:22 Aripiprazole (Abilify) 10 mg PO [facility] Stop: 12/15/18 14:29 Last Admin: 11/17/18 07:20 Dose: 10 mg Documented by: Divalproex Sodium (Depakote Extended Release) 500 [facility] [place] [place] Stop: 12/14/18 08:59 Last Admin: 11/17/18 07:21 Dose: 500 mg Documented by: Divalproex Sodium (Depakote Extended Release) 1,000 mg PO [facility] Stop: 12/13/18 21:59 Last Admin: 11/16/18 21:09 Dose: 1,000 mg Documented by: Haloperidol (Haldol) 10 mg PO Q4H PRN PRN Reason: psychosis Stop: 12/13/18 09:11 Haloperidol Lactate (Haldol) 10 mg IM Q4H PRN PRN Reason: psychosis Stop: 12/13/18 09:11 Haloperidol Lactate (Haldol) 10 mg IM BID PRN PRN Reason: refusal of PO meds Stop: 12/14/18 11:39 Hydroxyzine HCl (Vistaril) 50 mg PO HSZ PRN PRN Reason: Insomnia Stop: 12/13/18 05:22 Hydroxyzine HCl (Vistaril) 25 mg PO Q4H PRN PRN Reason: Anxiety Stop: 12/13/18 05:22 Lorazepam (Ativan) 1 mg PO Q4H PRN PRN Reason: psychosis or agitation Stop: 12/13/18 09:12 Lorazepam (Ativan) 1 mg IM Q4H PRN PRN Reason: psychosis or agitation Stop: 12/13/18 09:12 Magnesium Hydroxide (Milk Of Magnesia) 30 ml PO DAILY PRN PRN Reason: Heartburn Stop: 12/13/18 05:22 Nicotine (Nicoderm Cq) 14 mg TD QAM KAYLAN Stop: 12/13/18 08:59 Last Admin: 11/17/18 07:22 Dose: 14 mg Documented by: Nicotine Polacrilex (Nicorette 2mg) 1 piece MT UD PRN PRN Reason: Nicotine Withdrawal Stop: 12/13/18 05:22 Risperidone (Risperdal) 2 mg PO QAM KAYLAN Stop: 12/14/18 08:59 Last Admin: 11/17/18 07:22 Dose: 2 mg Documented by: Risperidone (Risperdal) 2 mg PO HS KAYLAN Stop: 12/16/18 21:59 Last Admin: 11/16/18 21:10 Dose: 2 mg Documented by: Sodium Chloride (Letcher Nasal) 1 - 2 sprays NA PRN PRN PRN Reason: Nasal Dryness/Congestion Stop: 12/13/18 05:22 Post Discharge Appointments Primary Care Physician Name Of Family Doctor: Dr. Escalona Therapist Name of Therapist: "Three of them re-tard" Floor Waxer Name of Floor Waxer: Mónica lambert [facility]. CPT Code CPT Code 08437
[2018-11-18] MEDS: NICOTINE 14 MG/24 HR PATCH TD SCH (07:57)
[2018-11-18] MEDS: DIVALPROEX EXTENDED RELEASE 500 MG TAB PO SCH ×2 (07:57→21:06)
[2018-11-18] MEDS ORDERED: ARIPiprazole 15 MG TAB PO SCH (09:00)
--- NOTE | 2018-11-18 11:33 | Psychiatric Progress Note ---
Date of Service November 18, 2018 Impression / Recommendations Impression 58-year-old single homeless male with a history of bipolar disorder, polysubstance abuse with severe alcohol use disorder and a history of alcohol withdrawal, cannabis abuse, and recent methamphetamine and cocaine abuse, and multiple recent contacts due to manic and psychotic symptoms and erratic behavior, who was discharged from the [facility] 11/12/2018 after a 5-day involuntary psychiatric hospitalization for psychotic sam, and re-presented to the ER within 24 hours of discharge due to ongoing psychosis, sam, erratic and threatening behavior. He had initially been started on risperidone, which was switched to aripiprazole 11/15/2018, with a plan for a long-acting injectable. He was also started on valproic acid, which has been titrated. He is improving, is less emotionally labile and irritable, less focused on grandiose delusions, but insight and judgment remain limited. Based on his recent behavior, he is unlikely to be adherent with psychiatric medications or treatment recommendations upon discharge, so we are recommending a long-acting form of aripiprazole (Jd Reyes - prior authorization sent, awaiting approval), and he will likely need an outpatient commitment. (1) Bipolar 1 disorder: 11/13 -current episode manic, severe, with psychosis. -Continue involuntary hospitalization, and petition for a 303 involuntary commitment given the likely need for long-term inpatient treatment given pattern of instability, severe symptoms, inability to function or provide for his own basic needs including housing and medical treatment, and risk of harm to others as evidenced by threats to kill people at the hotel the day prior to presentation, threats to hospital staff in the ER, and violent behavior. -Continue risperidone and increase to 2 mg every morning and 3 mg nightly. Order fasting glucose and lipid profile for monitoring on an atypical antipsychotic. -Continue Depakote and increase to 500 mg every morning and 1000 mg nightly, and check a trough level in 5 days (ordered for 11/18/2018). -Haloperidol 10 mg p.o./IM and Lorazepam 1 mg p.o./IM every 4 hours as needed psychosis or agitation. - Patient has had 5 head CTs and one brain MRI since 06/2018; no acute abnormalities, but notable for patchy white matter hypodensities (moderate subcortical and periventricular microangiopathic disease) and atrophy. TSH has been checked several times in the last month alone, and is within normal limits. CMP notable for elevated AST and ALT, which has been consistent for at least the past year, and is actually improved somewhat since December 2017. UA is normal with no signs of infection, and although he has had multiple positive drug screens in the past month, his drug screen on presentation overnight was negative. Hepatitis A IgM and antibody, hepatitis B antigen and IgM antibody, and hepatitis C antibody were nonreactive in 10/2018. RPR was nonreactive in 12/2017. No identified organic cause of his mood and psychotic symptoms, and past history of mental illness is not known. Most appropriate diagnoses based on available information is bipolar disorder type I and polysubstance abuse. -File for 303 involuntary commitment with hearing tomorrow. Consider the need for long-term inpatient treatment at the [facility] versus involuntary outpatient commitment. 11/14 -303 commitment granted -Patient has intermittently refused medications. He has been seen by 2 physicians, both of whom recommend medications over objection. Will order Haldol 10 mg IM backup for refusal of p.o. medications. -Continue risperidone and Depakote as above. Fasting lipid profile and glucose checked today for monitoring on an atypical antipsychotic and are within normal limits. -Attempt to contact his sister and involve her in treatment. He has mentioned multiple girlfriends, unclear if this is delusional. We will continue to explore any other supports. His outpatient behavioral health case manager through his insurance company has been informed of his admission, and hopefully can assist in exploring housing options. 11/15 -Today, the patient expresses willingness to adhere with medications as prescribed. Although he lacks substantial insight into his illness, he agrees that he will consent to a trial of aripiprazole 10 mg daily, with eventual goal of cross titrating aripiprazole and risperidone, while continuing valproic acid. -The patient remains floridly psychotic and continues to show marked symptoms of sam, including pressured speech, flight of ideas, increased energy, motoric hyperactivity, expansive mood, elated mood, and delusional grandiosity. -The patient gave us permission to speak with his sister. Information obtained is that he does not have a current girlfriend in [place], but had one perhaps 30 years ago. -Aripiprazole 10 mg daily, with a starting dose today, has been ordered. -Begin aripiprazole cross titration with risperidone, possibly beginning tomorrow, as tolerated. -Consider substituting Abilify Maintena, depending on response to oral aripiprazole. 11/16 -Continue aripiprazole 10 mg daily, and reduce risperidone to 2 mg twice daily. Continue to cross titration, and agree with Maintena if aripiprazole is effect jose g. -Increase aripiprazole to 15 mg daily for tomorrow, and reduce risperidone to 2 mg at bedtime. We will contact outpatient behavioral health case manager tomorrow for assistance in housing and referring for outpatient treatment. He apparently needs to get a new behavioral health case manager within [facility], and will also need outpatient care with a psychiatrist and therapist, as well as a 304 outpatient commitment. 11/18 - Aripiprazole titrated to 20mg daily starting tomorrow - prior authorization sent for coverage of Abilify Maintena, which patient is agreeable to starting - Risperidone tapered to 1mg HS for this evening; continue cross-taper - will require 2-weeks of oral aripiprazole following Maintena injection - Depakote level on lower end of therapeutic range at 55; consider further titration - held off today due to adjustment in aripiprazole dosing - Pt has made calls to explore housing options on discharge - Continue to coordinate appropriate aftercare, will likely need a 304 outpatient commitment to improve compliance (2) Homicidal ideation: 11/13 -medically necessary private room for safety. -Homicide checks. -PO and IM medications ordered as above for agitation/aggressive behavior. 11/15 -We are maintaining a medically necessary private room. -The patient tells us that he is having no thoughts of harming other people, but he remains floridly manic. (3) Seizure: 11/13 -patient has reported a history of seizures after a head injury years ago, but this has not been confirmed. At the time of his 11/08/2018 hospitalization, he reported being prescribed Keppra, but neurology records indicated concern that it may increase his emotional lability, so he was switched to Depakote for both seizure control and mood stabilization. Previous neurology consultations reviewed; they saw him in 06/2018 and 10/2018. At the time of the most recent consultation, the patient reported noncompliance with Keppra as he felt it destabilized mood, so gabapentin 300 mg 3 times daily was recommended. His EEG was normal at that time, there was no known history of seizure disorder, and they suspected any seizure activity was due to alcohol withdrawal. No seizure activity observed during his U admissions. Continue Depakote, and increase as above. (4) Cannabis use disorder, mild, abuse: 11/13 -long-standing history of substance abuse, including alcohol, cannabis, methamphetamine, and cocaine; avoid use of controlled substances especially outside of the hospital due to the high risk of abuse/misuse/negative outcomes. -UDS was positive for THC on admission 11/08/2018, but drug screen is negative on this admission. Nevertheless, once his mental status improves, he will require ongoing psychoeducation regarding the risks of continued substance abuse, as he is clearly decompensated over the past month in the context of heavy drug use. -Will refer for outpatient mental health and substance abuse treatment prior to discharge. (5) Alcohol abuse: 11/13 -patient reports being sober for 2 years, although information in the medical record contradicts this. 10/20/2018 he had a blood alcohol level of 267.4 in the ER, and UDS was positive for THC. 10/18/2018 drug screen was positive for methamphetamine (confirmatory result positive with a level of 1020) and THC as well as a BAL of 175.3. 10/15/2018 UDS was positive for cocaine and methamphetamine, and 06/27/2018 BAL was 199. He is a poor/unreliable historian and we have not been able to obtain collateral from friends or family. -He is not at risk for withdrawal currently, as he was in the hospital for 5 days and was discharged for less than 24 hours prior to being readmitted, and drug screen was negative in the ER on this presentation. (6) Nicotine addiction: 11/13 -offer nicotine patch and gum for cravings. Offer smoking cessation education. Inventory Assets Strengths: Has insurance/access to care, premorbid good functioning, Needs: Prolonged hospitalization for symptom stabilization, sobriety from substances, robust outpatient care Risk Factors Assessment Male: Yes : Yes Do You Have Access To A Gun?: No Health Problems: Yes Mental Health Diagnoses: Yes Substance Use Disorders: Yes Previous Psychiatric Hospitalization: Yes Smoker: Yes Protective Factors Assessment : No Responsible for Young Children: No Employed: No (disabled) Stable Relationships: No Supportive Family: No Good Rapport with Provider: No Interval History Identifying Information FREDA MO is a 58-year-old M who is currently homeless, has a history of bipolar disorder and substance abuse, and was admitted on 11/13/18 05:23 on a 302 involuntary commitment for erratic behavior, sam and homicidal ideation. He had just been discharged from the [facility] on 11/12/2018 after a 5-day hospitalization. He is on a 303 involuntary commitment as of 11/14/2018 Chief Complaint "Yeah, I heard back from at least 3 places I can go to live. I can get into them in December." Review of Systems Notes Constitutional: denied Cardiovascular: denied Respiratory: denied Gastrointestinal: denied Neurological: denied Psychiatric: denies symptoms other than stated above Total of at least 10 systems reviewed, pertinent positives as above and in HPI. Sleep Information Total Hours of Sleep: 4.5 Sleep Comments: pt LINDSEY @0530 and thereafter. pt on q-15 minute checks Meal Information Percent Meal Consumed - Breakfast: 100 Percent Meal Consumed - Lunch: 100 Percent Meal Consumed - Dinner: 100 Subjective Subjective Patient was seen & assessed and interval progress reviewed with Treatment Team. Staff reports the patient has been appropriate behaviorally on the unit. He still requires a solidified safety and aftercare plan. Patient was seen today to assess progress since admission. He states he is doing well and is reportedly been searching for new apartments this morning. He has made several phone calls and states he has heard back from at least 3 places that would be financially feasible. Patient is somewhat concerned that the apartments are not available until the beginning of December. He jokingly states "before I was upset about my length of stay, now you can keep me as long as you like. I will not complain." Patient feels that he has been tolerating medication adjustments appropriately. We reviewed previous conversation about initiating Abilify Maintena, in order to improve medication compliance as an outpatient. Patient is highly agreeable to this option, and is interested in receiving an injection if possible. Reviewed with patient that we are currently submitting a prior authorization, with hopes to hear that the injection will be approved. Patient denies any specific needs or concerns at this time, and continues to feel proud of his ability to support of inpatient unit. Physical Exam Psychiatric Orientation: alert, oriented x 3 and cooperative Apperance: appropriately dressed and appropriately groomed Eye Contact: good eye contact Motor Behavior: steady gait and station and no abnormal motor movements Remains somewhat pressured and rapid, though improving Affect: euthymic affect Mood: no depressed mood and no anxious mood "I'm feeling really good, they keep telling me how much better I seem." Thought Process: goal directed thought process and clear/coherent thought process Thought Content: + delusions (though improving, less focused on them) Suicidal Thoughts: denies suicidal thoughts Homicidal Thoughts: denies homicidal thoughts Hallucinations: no auditory hallucinations and no visual hallucinations Cognition: attention grossly intact and language grossly intact Estimated Intelligence: consistent with education level Insight: + limited insight Judgement: + limited judgement Vital Signs (Past 24 Hours) Last Vital Signs Temp 36.5 C 11/18/18 06:45 Pulse 93 H 11/18/18 06:46 Resp 18 11/18/18 06:45 BP 100/67 11/18/18 06:46 Pulse Ox 96 11/13/18 05:55 Results & Data Laboratory Results Laboratory Results - last 24 hr 11/18/18 08:05 Valproic Acid 55 Current Inpatient Medications Current Inpatient Medications: Current Inpatient Medications Acetaminophen (Tylenol) 650 mg PO Q4H PRN PRN Reason: Headache or Minor Fever Stop: 12/13/18 05:22 Last Admin: 11/13/18 13:14 Dose: 650 mg Documented by: Al Hydrox/Mg Hydrox/Simethicone (Maalox) 30 ml PO Q4H PRN PRN Reason: GI Upset Stop: 12/13/18 05:22 Aripiprazole ([facility]ilify) [facility] Stop: 12/18/18 08:59 Last Admin: 11/18/18 07:56 Dose: 15 mg Documented by: Divalproex Sodium (Depakote Extended Release) 500 mg PO QAM [facility] Stop: 12/14/18 08:59 Last Admin: 11/18/18 07:57 Dose: 500 mg Documented by: Divalproex Sodium (Depakote Extended Release) 1,000 mg PO [facility] Stop: 12/13/18 21:59 Last Admin: 11/17/18 21:10 Dose: 1,000 mg Documented by: Haloperidol (Haldol) 10 mg PO Q4H PRN PRN Reason: psychosis Stop: 12/13/18 09:11 Haloperidol Lactate (Haldol) 10 mg IM Q4H PRN PRN Reason: psychosis Stop: 12/13/18 09:11 Haloperidol Lactate (Haldol) 10 mg IM BID PRN PRN Reason: refusal of PO meds Stop: 12/14/18 11:39 Hydroxyzine HCl (Vistaril) 50 mg PO HSZ PRN PRN Reason: Insomnia Stop: 12/13/18 05:22 Hydroxyzine HCl (Vistaril) 25 mg PO Q4H PRN PRN Reason: Anxiety Stop: 12/13/18 05:22 Lorazepam (Ativan) 1 mg PO Q4H PRN PRN Reason: psychosis or agitation Stop: 12/13/18 09:12 Lorazepam (Ativan) 1 mg IM Q4H PRN PRN Reason: psychosis or agitation Stop: 12/13/18 09:12 Magnesium Hydroxide (Milk Of Magnesia) 30 ml PO DAILY PRN PRN Reason: Heartburn Stop: 12/13/18 05:22 Nicotine (Nicoderm Cq) 14 mg TD QAM KAYLAN Stop: 12/13/18 08:59 Last Admin: 11/18/18 07:57 Dose: 14 mg Documented by: Nicotine Polacrilex (Nicorette 2mg) 1 piece MT UD PRN PRN Reason: Nicotine Withdrawal Stop: 12/13/18 05:22 Risperidone (Risperdal) 2 mg PO HS KAYLAN Stop: 12/16/18 21:59 Last Admin: 11/17/18 21:10 Dose: 2 mg Documented by: Sodium Chloride (Dewey Nasal) 1 - 2 sprays NA PRN PRN PRN Reason: Nasal Dryness/Congestion Stop: 12/13/18 05:22 Post Discharge Appointments Primary Care Physician Name Of Family Doctor: Dr. Escalona Therapist Name of Therapist: "Three of them re-tard" Information Systems Professor Name of Information Systems Professor: Mónica at [facility]. CPT Code CPT Code 29447
[2018-11-18] MEDS ORDERED: risperiDONE 1 MG TABLET PO SCH (22:00)
[2018-11-19] MEDS: ARIPiprazole 10 MG TAB PO SCH (07:45)
[2018-11-19] MEDS: NICOTINE 14 MG/24 HR PATCH TD SCH (07:46)
[2018-11-19] MEDS: DIVALPROEX EXTENDED RELEASE 500 MG TAB PO SCH ×2 (07:46→22:30)
--- NOTE | 2018-11-19 13:49 | Psychiatric Progress Note ---
Date of Service November 19, 2018 Impression / Recommendations Impression 58-year-old single homeless male with a history of bipolar disorder, polysubstance abuse with severe alcohol use disorder and a history of alcohol withdrawal, cannabis abuse, and recent methamphetamine and cocaine abuse, and multiple recent contacts due to manic and psychotic symptoms and erratic behavior, who was discharged from the [facility] 11/12/2018 after a 5-day involuntary psychiatric hospitalization for psychotic sam, and re-presented to the ER within 24 hours of discharge due to ongoing psychosis, sam, erratic and threatening behavior. He had initially been started on risperidone, which was switched to aripiprazole 11/15/2018, with a plan for a long-acting injectable. He was also started on valproic acid, which has been titrated, now to receive 500mg qAM and 1500mg qHS. Pt continues to improve, showing less emotionally labile and irritable, less focused on grandiose delusions, but insight and judgment remain limited. Based on his recent behavior, he is unlikely to be adherent with psychiatric medications or treatment recommendations upon discharge, so we are recommending a long-acting form of aripiprazole (Jd Reyes - prior authorization sent, awaiting approval), and he will likely need an outpatient commitment. (1) Bipolar 1 disorder: 11/13 -current episode manic, severe, with psychosis. -Continue involuntary hospitalization, and petition for a 303 involuntary commitment given the likely need for long-term inpatient treatment given pattern of instability, severe symptoms, inability to function or provide for his own basic needs including housing and medical treatment, and risk of harm to others as evidenced by threats to kill people at the hotel the day prior to presentation, threats to hospital staff in the ER, and violent behavior. -Continue risperidone and increase to 2 mg every morning and 3 mg nightly. Order fasting glucose and lipid profile for monitoring on an atypical antipsychotic. -Continue Depakote and increase to 500 mg every morning and 1000 mg nightly, and check a trough level in 5 days (ordered for 11/18/2018). -Haloperidol 10 mg p.o./IM and Lorazepam 1 mg p.o./IM every 4 hours as needed psychosis or agitation. - Patient has had 5 head CTs and one brain MRI since 06/2018; no acute abnormalities, but notable for patchy white matter hypodensities (moderate subcortical and periventricular microangiopathic disease) and atrophy. TSH has been checked several times in the last month alone, and is within normal limits. CMP notable for elevated AST and ALT, which has been consistent for at least the past year, and is actually improved somewhat since December 2017. UA is normal with no signs of infection, and although he has had multiple positive drug screens in the past month, his drug screen on presentation overnight was negative. Hepatitis A IgM and antibody, hepatitis B antigen and IgM antibody, and hepatitis C antibody were nonreactive in 10/2018. RPR was nonreactive in 12/2017. No identified organic cause of his mood and psychotic symptoms, and past history of mental illness is not known. Most appropriate diagnoses based on available information is bipolar disorder type I and polysubstance abuse. -File for 303 involuntary commitment with hearing tomorrow. [facility]. 11/14 -303 commitment granted -Patient has intermittently refused medications. He has been seen by 2 physicians, both of whom recommend medications over objection. Will order Haldol 10 mg IM backup for refusal of p.o. medications. -Continue risperidone and Depakote as above. Fasting lipid profile and glucose checked today for monitoring on an atypical antipsychotic and are within normal limits. -Attempt to contact his sister and involve her in treatment. He has mentioned multiple girlfriends, unclear if this is delusional. We will continue to explore any other supports. His outpatient patient case coordinator through his insurance company has been informed of his admission, and hopefully can assist in exploring housing options. 11/15 -Today, the patient expresses willingness to adhere with medications as prescribed. Although he lacks substantial insight into his illness, he agrees that he will consent to a trial of aripiprazole 10 mg daily, with eventual goal of cross titrating aripiprazole and risperidone, while continuing valproic acid. -The patient remains floridly psychotic and continues to show marked symptoms of sam, including pressured speech, flight of ideas, increased energy, motoric hyperactivity, expansive mood, elated mood, and delusional grandiosity. -The patient gave us permission to speak with his sister. Information obtained is that he does not have a current girlfriend in [place], but had one perhaps 30 years ago. -Aripiprazole 10 mg daily, with a starting dose today, has been ordered. -Begin aripiprazole cross titration with risperidone, possibly beginning tomorrow, as tolerated. -Consider substituting Abilify Maintena, depending on response to oral aripiprazole. 11/16 -Continue aripiprazole 10 mg daily, and reduce risperidone to 2 mg twice daily. Continue to cross titration, and agree with Maintena if aripiprazole is effective. -Increase aripiprazole to 15 mg daily for tomorrow, and reduce risperidone to 2 mg at bedtime. We will contact outpatient patient case coordinator tomorrow for assistance in housing and referring for outpatient treatment. He apparently needs to get a new patient case coordinator within [facility], and will also need outpatient care with a psychiatrist and therapist, as well as a 304 outpatient commitment. 11/18 - Aripiprazole titrated to 20mg daily starting tomorrow - prior authorization sent for coverage of Abilify Maintena, which patient is agreeable to starting - Risperidone tapered to 1mg HS for this evening; continue cross-taper - will require 2-weeks of oral aripiprazole following Maintena injection - Depakote level on lower end of therapeutic range at 55; consider further titration - held off today due to adjustment in aripiprazole dosing - Pt has made calls to explore housing options on discharge - Continue to coordinate appropriate aftercare, will likely need a 304 outpatient commitment to improve compliance 11/19 - Continue aripiprazole 20mg qAM - awaiting PA on Abilify Maintena, patient remains agreeable to injection - Depakote increased to 500mg qAM and 1500mg qHS - speech remains rapid and pressured, grandiose delusions improving but persist; will order repeat depakote level for 11/24 - Will discontinue risperidone at this time - Attempting to coordinate appropriate discharge plan, patient assisting (2) Homicidal ideation: 11/13 -medically necessary private room for safety. -Homicide checks. -PO and IM medications ordered as above for agitation/aggressive behavior. 11/15 -We are maintaining a medically necessary private room. -The patient tells us that he is having no thoughts of harming other people, but he remains floridly manic. (3) Seizure: 11/13 -patient has reported a history of seizures after a head injury years ago, but this has not been confirmed. At the time of his 11/08/2018 hospitalization, he reported being prescribed Keppra, but neurology records indicated concern that it may increase his emotional lability, so he was switched to Depakote for both seizure control and mood stabilization. Previous neurology consultations reviewed; they saw him in 06/2018 and 10/2018. At the time of the most recent consultation, the patient reported noncompliance with Keppra as he felt it destabilized mood, so gabapentin 300 mg 3 times daily was recommended. His EEG was normal at that time, there was no known history of seizure disorder, and they suspected any seizure activity was due to alcohol withdrawal. No seizure activity observed during his [facility] admissions. Continue Depakote, and increase as above. (4) Cannabis use disorder, mild, abuse: 11/13 -long-standing history of substance abuse, including alcohol, cannabis, methamphetamine, and cocaine; avoid use of controlled substances especially outside of the hospital due to the high risk of abuse/misuse/negative outcomes. -UDS was positive for THC on admission 11/08/2018, but drug screen is negative on this admission. Nevertheless, once his mental status improves, he will require ongoing psychoeducation regarding the risks of continued substance abuse, as he is clearly decompensated over the past month in the context of heavy drug use. -Will refer for outpatient mental health and substance abuse treatment prior to discharge. (5) Alcohol abuse: 11/13 -patient reports being sober for 2 years, although information in the medical record contradicts this. 10/20/2018 he had a blood alcohol level of 267.4 in the ER, and UDS was positive for THC. 10/18/2018 drug screen was positive for methamphetamine (confirmatory result positive with a level of 1020) and THC as well as a BAL of 175.3. 10/15/2018 UDS was positive for cocaine and methamphetamine, and 06/27/2018 BAL was 199. He is a poor/unreliable historian and we have not been able to obtain collateral from friends or family. -He is not at risk for withdrawal currently, as he was in the hospital for 5 day s and was discharged for less than 24 hours prior to being readmitted, and drug screen was negative in the ER on this presentation. (6) Nicotine addiction: 11/13 -offer nicotine patch and gum for cravings. Offer smoking cessation education. Inventory Assets Strengths: Has insurance/access to care, premorbid good functioning, Needs: Prolonged hospitalization for symptom stabilization, sobriety from substances, robust outpatient care Risk Factors Assessment Male: Yes : Yes Do You Have Access To A Gun?: No Health Problems: Yes Mental Health Diagnoses: Yes Substance Use Disorders: Yes Previous Psychiatric Hospitalization: Yes Smoker: Yes Protective Factors Assessment : No Responsible for Young Children: No Employed: No (disabled) Stable Relationships: No Supportive Family: No Good Rapport with Provider: No Interval History Identifying Information FREDA MO is a 58-year-old M who is currently homeless, has a history of bipolar disorder and substance abuse, and was admitted on 11/13/18 05:23 on a 302 involuntary commitment for erratic behavior, sam and homicidal ideation. He had just been discharged from the [facility] on 11/12/2018 after a 5-day hosp italization. 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 Sleep Information Total Hours of Sleep: 4.5 Sleep Comments: pt LINDSEY @0330. pt awake on and off during the night. pt pleasant. pt on q-15 minute checks Meal Information Percent Meal Consumed - Breakfast: 100 Percent Meal Consumed - Lunch: 100 Percent Meal Consumed - Dinner: 100 Subjective Subjective Patient was seen & assessed and interval progress reviewed with Nursing. Staff reports the patient has dixon doing well, participating appropriate in groups. He continues to be mildly intrusive and grandiose. Pt was seen today to assess progress since admission. Pt states that he is "stressed" presently, as he had just finished a phone call and continues attempts to arrange housing and finances in preparation for discharge. Pt states, "It's all kind of hitting me at once." He continues to report a decent mood, rating his a 9/10. He admits to a few episodes of dizziness yesterday, in which he was worried he may have a seizure. Pt remains agreeable to medication recommendations and is proud of the work he has been putting in to solidify housing. We reviewed his Depakote level which is just within the therapeutic range. Before suggesting to patient that we titrate the medication - he states, "I'd like to see that level higher, like 65 or 70." Reviewed risks and benefits with patient and agreed with his desire. Will plan to make that adjustment. Pt denies other needs or concerns at this time. Physical Exam Psychiatric Orientation: alert, oriented x 3 and cooperative Apperance: appropriately dressed and appropriately groomed Eye Contact: good eye contact Motor Behavior: steady gait and station and no abnormal motor movements Speech: normal rate/rhythm/volume of speech (less pressured, but remains rather rapid) Affect: euthymic affect and + anxious affect (mildly ) Mood: + anxious mood ("I'm stressed today. I told them I was still a 9, but stressed") Thought Process: goal directed thought process and clear/coherent thought process Thought Content: + delusions (gradiose delusions - less vocal about sharing them) Suicidal Thoughts: denies suicidal thoughts Homicidal Thoughts: denies homicidal thoughts Hallucinations: no auditory hallucinations and no visual hallucinations Cognition: attention grossly intact and language grossly intact Estimated Intelligence: consistent with education level Insight: + limited insight Judgement: + limited judgement Vital Signs (Past 24 Hours) Last Vital Signs Temp 36.5 C 11/19/18 06:52 Pulse 87 11/19/18 06:52 Resp 18 11/19/18 06:52 BP 121/80 11/19/18 06:52 Pulse Ox 96 11/13/18 05:55 Results & Data Current Inpatient Medications Current Inpatient Medications: Current Inpatient Medications Acetaminophen (Tylenol) 650 mg PO Q4H PRN PRN Reason: Headache or Minor Fever Stop: 12/13/18 05:22 Last Admin: 11/13/18 13:14 Dose: 650 mg Documented by: Al Hydrox/Mg Hydrox/Simethicone (Maalox) 30 ml PO Q4H PRN PRN Reason: GI Upset Stop: 12/13/18 05:22 Aripiprazole (Abilify) [facility] Stop: 12/19/18 08:59 Last Admin: 11/19/18 07:45 Dose: 20 mg Documented by: Divalproex Sodium (Depakote Extended Release) 500 [facility] Stop: 12/14/18 08:59 Last Admin: 11/19/18 07:46 Dose: 500 mg Documented by: Divalproex Sodium (Depakote Extended Release) 1,000 mg PO HS KAYLAN Stop: 12/13/18 21:59 Last Admin: 11/18/18 21:06 Dose: 1,000 mg Documented by: Haloperidol (Haldol) 10 mg PO Q4H PRN PRN Reason: psychosis Stop: 12/13/18 09:11 Haloperidol Lactate (Haldol) 10 mg IM Q4H PRN PRN Reason: psychosis Stop: 12/13/18 09:11 Haloperidol Lactate (Haldol) 10 mg IM BID PRN PRN Reason: refusal of PO meds Stop: 12/14/18 11:39 Hydroxyzine HCl (Vistaril) 50 mg PO HSZ PRN PRN Reason: Insomnia Stop: 12/13/18 05:22 Hydroxyzine HCl (Vistaril) 25 mg PO Q4H PRN PRN Reason: Anxiety Stop: 12/13/18 05:22 Lorazepam (Ativan) 1 mg PO Q4H PRN PRN Reason: psychosis or agitation Stop: 12/13/18 09:12 Lorazepam (Ativan) 1 mg IM Q4H PRN PRN Reason: psychosis or agitation Stop: 12/13/18 09:12 Magnesium Hydroxide (Milk Of Magnesia) 30 ml PO DAILY PRN PRN Reason: Heartburn Stop: 12/13/18 05:22 Nicotine (Nicoderm Cq) 14 mg TD QAM KAYLAN Stop: 12/13/18 08:59 Last Admin: 11/19/18 07:46 Dose: 14 mg Documented by: Nicotine Polacrilex (Nicorette 2mg) 1 piece MT UD PRN PRN Reason: Nicotine Withdrawal Stop: 12/13/18 05:22 Risperidone (Risperdal) 1 mg PO HS KAYLAN Stop: 12/18/18 21:59 Last Admin: 11/18/18 21:05 Dose: 1 mg Documented by: Sodium Chloride ([place] Nasal) 1 - 2 sprays NA PRN PRN PRN Reason: Nasal Dryness/Congestion Stop: 12/13/18 05:22 Post Discharge Appointments Primary Care Physician Name Of Family Doctor: Dr. Escalona Therapist Name of Therapist: EDIL Rinaldi [facility] Therapist's Date of Therapist Appointment: 11/29/18 Time of Therapist Appointment: 10:30am Electrical Wiring Lineman Name of Electrical Wiring Lineman: Mónica at [facility]. CPT Code CPT Code 84113
[2018-11-20] MEDS: ARIPiprazole 10 MG TAB PO SCH (08:29)
[2018-11-20] MEDS: DIVALPROEX EXTENDED RELEASE 500 MG TAB PO SCH ×2 (08:30→21:07)
[2018-11-20] MEDS: NICOTINE 14 MG/24 HR PATCH TD SCH (08:31)
--- NOTE | 2018-11-20 10:27 | Psychiatric Progress Note ---
Date of Service November 20, 2018 Impression / Recommendations Impression 58-year-old single homeless male with a history of bipolar disorder, polysubstance abuse with severe alcohol use disorder and a history of alcohol withdrawal, cannabis abuse, and recent methamphetamine and cocaine abuse, and multiple recent contacts due to manic and psychotic symptoms and erratic behavior, who was discharged from the [facility] 11/12/2018 after a 5-day involuntary psychiatric hospitalization for psychotic sam, and re-presented to the ER within 24 hours of discharge due to ongoing psychosis, sam, erratic and threatening behavior. He was initially started on risperidone, which was switched to aripiprazole 11/15/2018, and will receive the Abilify Maintena injection today given his history of poor compliance with oral medication. He was also started on valproic acid, with a trough level of 55 on 11/18/2018. His manic and psychotic symptoms are improving, and we are working on discharge planning. He has a long history of noncompliance and is unlikely to be adherent with psychiatric medications or treatment recommendations upon discharge, so we have started the long-acting injectable antipsychotic, and will recommend an outpatient commitment. He is being referred for various services in the community, including case management, [facility], a [facility] payee, therapy and psychiatric care. (1) Bipolar 1 disorder: 11/13 -current episode manic, severe, with psychosis. -Continue involuntary hospitalization, and petition for a 303 involuntary commitment given the likely need for long-term inpatient treatment given pattern of instability, severe symptoms, inability to function or provide for his own basic needs including housing and medical treatment, and risk of harm to others as evidenced by threats to kill people at the hotel the day prior to presentation, threats to hospital staff in the ER, and violent behavior. -Continue risperidone and increase to 2 mg every morning and 3 mg nightly. Order fasting glucose and lipid profile for monitoring on an atypical antipsychotic. -Continue Depakote and increase to 500 mg every morning and 1000 mg nightly, and check a trough level in 5 days (ordered for 11/18/2018). -Haloperidol 10 mg p.o./IM and Lorazepam 1 mg p.o./IM every 4 hours as needed psychosis or agitation. - Patient has had 5 head CTs and one brain MRI since 06/2018; no acute abnormalities, but notable for patchy white matter hypodensities (moderate subcortical and periventricular microangiopathic disease) and atrophy. TSH has been checked several times in the last month alone, and is within normal limits. CMP notable for elevated AST and ALT, which has been consistent for at least the past year, and is actually improved somewhat since December 2017. UA is normal with no signs of infection, and although he has had multiple positive drug screens in the past month, his drug screen on presentation overnight was negative. Hepatitis A IgM and antibody, hepatitis B antigen and IgM antibody, and hepatitis C antibody were nonreactive in 10/2018. RPR was nonreactive in 12/2017. No identified organic cause of his mood and psychotic symptoms, and past history of mental illness is not known. Most appropriate diagnoses based on available information is bipolar disorder type I and polysubstance abuse. -File for 303 involuntary commitment with hearing tomorrow. Consider the need for long-term inpatient treatment at the [facility] versus involuntary outpatient commitment. 11/14 -303 commitment granted -Patient has intermittently refused medications. He has been seen by 2 physicians, both of whom recommend medications over objection. Will order Haldol 10 mg IM backup for refusal of p.o. medications. -Continue risperidone and Depakote as above. Fasting lipid profile and glucose checked today for monitoring on an atypical antipsychotic and are within normal limits. -Attempt to contact his sister and involve her in treatment. He has mentioned multiple girlfriends, unclear if this is delusional. We will continue to explore any other supports. His outpatient correctional counselor/case manager through his insurance company has been informed of his admission, and hopefully can assist in exploring housing options. 11/15 -Today, the patient expresses willingness to adhere with medications as prescribed. Although he lacks substantial insight into his illness, he agrees that he will consent to a trial of aripiprazole 10 mg daily, with eventual goal of cross titrating aripiprazole and risperidone, while continuing valproic acid. -The patient remains floridly psychotic and continues to show marked symptoms of sam, including pressured speech, flight of ideas, increased energy, motoric hyperactivity, expansive mood, elated mood, and delusional grandiosity. -The patient gave us permission to speak with his sister. Information obtained is that he does not have a current girlfriend in [place], but had one perhaps 30 years ago. -Aripiprazole 10 mg daily, with a starting dose today, has been ordered. -Begin aripiprazole cross titration with risperidone, possibly beginning tomorrow, as tolerated. -Consider substituting Abilify Maintena, depending on response to oral aripiprazole. 11/16 -Continue aripiprazole 10 mg daily, and reduce risperidone to 2 mg twice daily. Continue to cross titration, and agree with Maintena if aripiprazole is effective. -Increase aripiprazole to 15 mg daily for tomorrow, and reduce risperidone to 2 mg at bedtime. We will contact outpatient correctional counselor/case manager tomorrow for assistance in housing and referring for outpatient treatment. He apparently needs to get a new correctional counselor/case manager within [facility], and will also need outpatient care with a psychiatrist and therapist, as well as a 304 outpatient commitment. 11/18 - Aripiprazole titrated to 20mg daily starting tomorrow - prior authorization sent for coverage of Abilify Maintena, which patient is agreeable to starting - Risperidone tapered to 1mg HS for this evening; continue cross-taper - will require 2-weeks of oral aripiprazole following Maintena injection - Depakote level on lower end of therapeutic range at 55; consider further titration - held off today due to adjustment in aripiprazole dosing - Pt has made calls to explore housing options on discharge - Continue to coordinate appropriate aftercare, will likely need a 304 outpatient commitment to improve compliance 11/19 - Continue aripiprazole 20mg qAM - awaiting PA on Abilify Maintena, patient remains agreeable to injection - Depakote increased to 500mg qAM and 1500mg qHS - speech remains rapid and pressured, grandiose delusions improving but persist; will order repeat depakote level for 11/24 - Will discontinue risperidone at this time - Attempting to coordinate appropriate discharge plan, patient assisting 11/20 -Patient continues to improve, and has been cooperative with treatment. We reviewed the risks of the Maintena injection, he is agreeable to receiving it today, and will continue oral aripiprazole 15 mg daily for 2 weeks before discontinuing. His next injection will be due 12/18/2018. -[facility] yesterday who will help determine what services he is eligible for. [facility] for a blended correctional counselor/case manager. Continue to coordinate with correctional counselor/case manager through his insurance. (2) Homicidal ideation: 11/13 -medically necessary private room for safety. -Homicide checks. -PO and IM medications ordered as above for agitation/aggressive behavior. 11/15 -We are maintaining a medically necessary private room. -The patient tells us that he is having no thoughts of harming other people, but he remains floridly manic. (3) Seizure: 11/13 -patient has reported a history of seizures after a head injury years ago, but this has not been confirmed. At the time of his 11/08/2018 hospitalization, he reported being prescribed Keppra, but neurology records indicated concern that it may increase his emotional lability, so he was switched to Depakote for both seizure control and mood stabilization. Previous neurology consultations reviewed; they saw him in 06/2018 and 10/2018. At the time of the most recent consultation, the patient reported noncompliance with Keppra as he felt it destabilized mood, so gabapentin 300 mg 3 times daily was recommended. His EEG was normal at that time, there was no known history of seizure disorder, and they suspected any seizure activity was due to alcohol withdrawal. No seizure activity observed during his U admissions. Continue Depakote, and increase as above. (4) Cannabis use disorder, mild, abuse: 11/13 -long-standing history of substance abuse, including alcohol, cannabis, methamphetamine, and cocaine; avoid use of controlled substances especially outside of the hospital due to the high risk of abuse/misuse/negative outcomes. -UDS was positive for THC on admission 11/08/2018, but drug screen is negative on this admission. Nevertheless, once his mental status improves, he will require ongoing psychoeducation regarding the risks of continued substance abuse, as he is clearly decompensated over the past month in the context of heavy drug use. -Will refer for outpatient mental health and substance abuse treatment prior to discharge. (5) Alcohol abuse: 11/13 -patient reports being sober for 2 years, although information in the medical record contradicts this. 10/20/2018 he had a blood alcohol level of 267.4 in the ER, and UDS was positive for THC. 10/18/2018 drug screen was positive for methamphetamine (confirmatory result positive with a level of 1020) and THC as well as a BAL of 175.3. 10/15/2018 UDS was positive for cocaine and methamphetamine, and 06/27/2018 BAL was 199. He is a poor/unreliable historian and we have not been able to obtain collateral from friends or family. -He is not at risk for withdrawal currently, as he was in the hospital for 5 days and was discharged for less than 24 hours prior to being readmitted, and drug screen was negative in the ER on this presentation. 11/20 - Brief intervention was offered and accepted. Intervention was greater than 5 min in length. Brief interventions include: 1. Assess Readiness to Quit, 2. Advise: Help Patient to Reduce or Abstain from Alcohol, 3. Agree: Set Specific, Feasible Goals, 4. Assist: Anticipate barriers, Problem-Solving Solutions. Social work to 5. Arrange: Referrals to appropriate treatment. Summary of intervention: The patient is in contemplation stage with regards to transtheoretical model of change. The patient is advised to abstain from drugs and alcohol due to depressant effects and risk of interactions with prescription medications. The patient agreed to abstain, and will be provided with recovery materials to continue to education self on how to cope with their condition without drinking. He claims that he has been sober for 2 years, but has had multiple hospitalizations recently with high blood alcohol levels and drug use as above. Continue to support sobriety and assisting with coping techniques. (6) Nicotine addiction: 11/13 -offer nicotine patch and gum for cravings. Offer smoking cessation education. Inventory Assets Strengths: Has insurance/access to care, premorbid good functioning, Needs: Prolonged hospitalization for symptom stabilization, sobriety from substances, robust outpatient care Risk Factors Assessment Male: Yes : Yes Do You Have Access To A Gun?: No Health Problems: Yes Mental Health Diagnoses: Yes Substance Use Disorders: Yes Previous Psychiatric Hospitalization: Yes Smoker: Yes Protective Factors Assessment : No Responsible for Young Children: No Employed: No (disabled) Stable Relationships: No Supportive Family: No Good Rapport with Provider: No Interval History Identifying Information FREDA MO is a 58-year-old M who is currently homeless, has a history of bipolar disorder and substance abuse, and was admitted on 11/13/18 05:23 on a 302 involuntary commitment for erratic behavior, sam and homicidal ideation. He had just been discharged from the [facility] on 11/12/2018 after a 5-day hospitalization. He is on a 303 involuntary commitment as of 11/14/2018 Chief Complaint "Okay, great, I talked to Mónica". Review of Systems Sleep Information Total Hours of Sleep: 5.25 Sleep Comments: pt on q-15 minute checks Meal Information Percent Meal Consumed - Breakfast: 100 Percent Meal Consumed - Lunch: 100 Percent Meal Consumed - Dinner: 100 Subjective Subjective Patient was seen & assessed and interval progress reviewed with Treatment Team. Staff report Jd Reyes prior authorization was approved by his insurance. His correctional counselor/case manager Mónica stated she was assigned through his insurance company due to his noncompliance with treatment, and recommended he also get a correctional counselor/case manager through [facility]. She also reported he is in the process of being assigned a rep payee through [facility] [employer] services, and had a waiver assessment through the office of aging which could assist him with medication monitoring and a home health aide. Staff from the [facility] service [place] came and met with the patient, and noted that when they last saw him, he was d isorganized, disoriented, and disruptive. They will be investigating his eligibility for various services through the [facility]. The patient is reporting willingness to find housing locally, but continues to state that he will probably travel to [facility] in the future, but not for the next 6 months." On my assessment, the patient is walking laps in the hallway, and states he is feeling "great," and is excited about being here. He vacillates between stating he wants to leave as soon as possible, and stating he wants to stay until the end of the month because he does not think he will be able to get a new apartment until December. He is willing to work with his various outpatient supports and case workers to explore housing options and ways to get appropriate services. He is tolerating medication well and thinks that it is helping, and is willing to receive Mariluzconorfy Maintena today. He talks in an animated way about the stone work in the healing garden which he says he did, and is visible outside the hospital from his window. Physical Exam Psychiatric Orientation: alert, oriented x 3 and cooperative Apperance: appropriately dressed, appropriately groomed and appeared stated age Eye Contact: good eye contact Motor Behavior: steady gait and station and + psychomotor agitation (Mildly hyperactive, in constant motion, pacing around his room) Hyperverbal, mildly pressured, normal rate and volume. Affect: + elated affect "Great!" Thought Process: + looseness of associations But improved from earlier in his stay. Thought Content: reality based without delusions Patient does not bring up delusional content (such as the award he believes he is receiving from President [employer], or his pending marriage in [place]) Suicidal Thoughts: denies suicidal thoughts Homicidal Thoughts: denies homicidal thoughts Hallucinations: no auditory hallucinations Cognition: language grossly intact Insight: + impaired insight Judgement: + impaired judgement Vital Signs (Past 24 Hours) Last Vital Signs Temp 36.5 C 11/20/18 06:44 Pulse 98 H 11/20/18 06:45 Resp 18 11/20/18 06:44 BP 103/71 11/20/18 06:45 Pulse Ox 96 11/13/18 05:55 Results & Data Current Inpatient Medications Current Inpatient Medications: Current Inpatient Medications Acetaminophen (Tylenol) 650 mg PO Q4H PRN PRN Reason: Headache or Minor Fever Stop: 12/13/18 05:22 Last Admin: 11/13/18 13:14 Dose: 650 mg Documented by: Al Hydrox/Mg Hydrox/Simethicone (Maalox) 30 ml PO Q4H PRN PRN Reason: GI Upset Stop: 12/13/18 05:22 Aripiprazole (Abilify) [facility] Stop: 12/19/18 08:59 Last Admin: 11/20/18 08:29 Dose: 20 mg Documented by: Aripiprazole (Abilify Maintena Kit) 400 mg IM ONE ONE Stop: 11/20/18 10:19 Divalproex Sodium (Depakote Extended Release) 500 mg PO QAM [facility] Stop: 12/14/18 08:59 Last Admin: 11/20/18 08:30 Dose: 500 mg Documented by: Divalproex Sodium (Depakote Extended Release) 1,500 mg PO [facility] Stop: 12/19/18 21:59 Last Admin: 11/19/18 22:30 Dose: 1,500 mg Documented by: Haloperidol (Haldol) 10 mg PO Q4H PRN PRN Reason: psychosis Stop: 12/13/18 09:11 Haloperidol Lactate (Haldol) 10 mg IM Q4H PRN PRN Reason: psychosis Stop: 12/13/18 09:11 Haloperidol Lactate (Haldol) 10 mg IM BID PRN PRN Reason: refusal of PO meds Stop: 12/14/18 11:39 Hydroxyzine HCl (Vistaril) 50 mg PO HSZ PRN PRN Reason: Insomnia Stop: 12/13/18 05:22 Hydroxyzine HCl (Vistaril) 25 mg PO Q4H PRN PRN Reason: Anxiety Stop: 12/13/18 05:22 Lorazepam (Ativan) 1 mg PO Q4H PRN PRN Reason: psychosis or agitation Stop: 12/13/18 09:12 Lorazepam (Ativan) 1 mg IM Q4H PRN PRN Reason: psychosis or agitation Stop: 12/13/18 09:12 Magnesium Hydroxide (Milk Of Magnesia) 30 ml PO DAILY PRN PRN Reason: Heartburn Stop: 12/13/18 05:22 Nicotine (Nicoderm Cq) 14 mg TD QAM [facility] Stop: 12/13/18 08:59 Last Admin: 11/20/18 08:31 Dose: Not Given Documented by: Nicotine Polacrilex (Nicorette 2mg) 1 piece MT UD PRN PRN Reason: Nicotine Withdrawal Stop: 12/13/18 05:22 Sodium Chloride ([place] Nasal) 1 - 2 sprays NA PRN PRN PRN Reason: Nasal Dryness/Congestion Stop: 12/13/18 05:22 Post Discharge Appointments Primary Care Physician Name Of Family Doctor: Dr. Escalona Therapist Name of Therapist: EDIL Rinaldi [facility] Therapist's Date of Therapist Appointment: 11/29/18 Time of Therapist Appointment: 10:30am Net Coordinator Name of Net Coordinator: M[facility]ica [facility]bert [facility] CPT Code CPT Code 10453
[2018-11-20] MEDS ORDERED: ARIPIPRAZOLE 400 MG KIT IM ONE (11:30)
[2018-11-20] MEDS ORDERED: ARIPIPRAZOLE 400 MG PRE-FILLED SYRINGE IM ONE (12:00)
[2018-11-21] MEDS: ACETAMINOPHEN 325 MG TAB PO PRN (01:20)
[2018-11-21] MEDS: DIVALPROEX EXTENDED RELEASE 500 MG TAB PO SCH ×2 (08:31→21:02)
[2018-11-21] MEDS: ARIPiprazole 10 MG TAB PO SCH (08:31)
[2018-11-21] MEDS: NICOTINE 14 MG/24 HR PATCH TD SCH (08:32)
--- NOTE | 2018-11-21 09:28 | Psychiatric Progress Note ---
Date of Service November 21, 2018 Impression / Recommendations Impression 58-year-old single homeless male with a history of bipolar disorder, polysubstance abuse with severe alcohol use disorder and a history of alcohol withdrawal, cannabis abuse, and recent methamphetamine and cocaine abuse, and multiple recent contacts due to manic and psychotic symptoms and erratic behavior, who was discharged from the [facility] 11/12/2018 after a 5-day involuntary psychiatric hospitalization for psychotic sam, and re-presented to the ER within 24 hours of discharge due to ongoing psychosis, sam, erratic and threatening behavior. Patient received injection of Abilify Maintena on 11/20/2018, next dose due for 12/18/2018. Patient admits to some boredom and restlessness due to his prolonged stay, but clear presence of akathisia is uncertain. Nonetheless, we will reduce his oral dose of aripiprazole to 15 mg daily as this may be beneficial for his restlessness. Patient's valproic acid trough level on 11/18/2018 was 55. He was agreeable to titration of valproic acid to 500 mg every morning and 1500 mg nightly. Repeat valproic acid level is ordered for 11/24/2018. His manic and psychotic symptoms are improving, and we are working on discharge planning. He has a long history of noncompliance and is unlikely to be adherent with psychiatric medications or treatment recommendations upon discharge, so we have started the long-acting injectable antipsychotic, and will recommend an outpatient commitment. He is being referred for various services in the community, including case management, [facility], a [facility] payee, therapy and psychiatric care. (1) Bipolar 1 disorder: 11/13 -current episode manic, severe, with psychosis. -Continue involuntary hospitalization, and petition for a 303 involuntary commitment given the likely need for long-term inpatient treatment given pattern of instability, severe symptoms, inability to function or provide for his own basic needs including housing and medical treatment, and risk of harm to others as evidenced by threats to kill people at the hotel the day prior to presentation, threats to hospital staff in the ER, and violent behavior. -Continue risperidone and increase to 2 mg every morning and 3 mg nightly. Order fasting glucose and lipid profile for monitoring on an atypical antipsychotic. -Continue Depakote and increase to 500 mg every morning and 1000 mg nightly, and check a trough level in 5 days (ordered for 11/18/2018). -Haloperidol 10 mg p.o./IM and Lorazepam 1 mg p.o./IM every 4 hours as needed psychosis or agitation. - Patient has had 5 head CTs and one brain MRI since 06/2018; no acute abnormalities, but notable for patchy white matter hypodensities (moderate subcortical and periventricular microangiopathic disease) and atrophy. TSH has been checked several times in the last month alone, and is within normal limits. CMP notable for elevated AST and ALT, which has been consistent for at least the past year, and is actually improved somewhat since December 2017. UA is normal with no signs of infection, and although he has had multiple positive drug screens in the past month, his drug screen on presentation overnight was negative. Hepatitis A IgM and antibody, hepatitis B antigen and IgM antibody, and hepatitis C antibody were nonreactive in 10/2018. RPR was nonreactive in 12/2017. No identified organic cause of his mood and psychotic symptoms, and past history of mental illness is not known. Most appropriate diagnoses based on available information is bipolar disorder type I and polysubstance abuse. -File for 303 involuntary commitment with hearing tomorrow. Consider the need for long-term inpatient treatment at the [facility] versus involuntary outpatient commitment. 11/14 -303 commitment granted -Patient has intermittently refused medications. He has been seen by 2 physicians, both of whom recommend medications over objection. Will order Haldol 10 mg IM backup for refusal of p.o. medications. -Continue risperidone and Depakote as above. Fasting lipid profile and glucose checked today for monitoring on an atypical antipsychotic and are within normal limits. -Attempt to contact his sister and involve her in treatment. He has mentioned multiple girlfriends, unclear if this is delusional. We will continue to explore any other supports. His outpatient director of casework department through his insurance company has been informed of his admission, and hopefully can assist in exploring housing options. 11/15 -Today, the patient expresses willingness to adhere with medications as prescribed. Although he lacks substantial insight into his illness, he agrees that he will consent to a trial of aripiprazole 10 mg daily, with eventual goal of cross titrating aripiprazole and risperidone, while continuing valproic acid. -The patient remains floridly psychotic and continues to show marked symptoms of sam, including pressured speech, flight of ideas, increased energy, motoric hyperactivity, expansive mood, elated mood, and delusional grandiosity. -The patient gave us permission to speak with his sister. Information obtained is that he does not have a current girlfriend in [place], but had one perhaps 30 years ago. -Aripiprazole 10 mg daily, with a starting dose today, has been ordered. -Begin aripiprazole cross titration with risperidone, possibly beginning tomorrow, as tolerated. -Consider substituting Abilify Maintena, depending on response to oral aripiprazole. 11/16 -Continue aripiprazole 10 mg daily, and reduce risperidone to 2 mg twice daily. Continue to cross titration, and agree with Maintena if aripiprazole is effective. -Increase aripiprazole to 15 mg daily for tomorrow, and reduce risperidone to 2 mg at bedtime. We will contact outpatient director of casework department tomorrow for assistance in housing and referring for outpatient treatment. He apparently needs to get a new director of casework department within [facility], and will also need outpatient care with a psychiatrist and therapist, as well as a 304 outpatient commitment. 11/18 - Aripiprazole titrated to 20mg daily starting tomorrow - prior authorization sent for coverage of Abilify Maintena, which patient is agreeable to starting - Risperidone tapered to 1mg HS for this evening; continue cross-taper - will require 2-weeks of oral aripiprazole following Maintena injection - Depakote level on lower end of therapeutic range at 55; consider further titration - held off today due to adjustment in aripiprazole dosing - Pt has made calls to explore housing options on discharge - Continue to coordinate appropriate aftercare, will likely need a 304 outpatient commitment to improve compliance 11/19 - Continue aripiprazole 20mg qAM - awaiting PA on Abilify Maintena, patient remains agreeable to injection - Depakote increased to 500mg qAM and 1500mg qHS - speech remains rapid and pressured, grandiose delusions improving but persist; will order repeat depakote level for 11/24 - Will discontinue risperidone at this time - Attempting to coordinate appropriate discharge plan, patient assisting 11/20 -Patient continues to improve, and has been cooperative with treatment. We reviewed the risks of the Maintena injection, he is agreeable to receiving it today, and will continue oral aripiprazole 20 mg daily for 2 weeks before discontinuing. His next injection will be due 12/18/2018. -Met with staff from the [facility] yesterday who will help determine what services he is eligible for. Refer to the [facility] for a blended director of casework department. Continue to coordinate with director of casework department through his insurance. 11/21 - Received Abilify Maintena injection on 11/20 - next injection due 12/18/18 - Will decrease oral dose of Abilify to 15mg daily, as may improve feelings of restlessness - unclear if true akathisia - Continue to solidify housing options and outpatient supports who will be assisting patient after discharge - Meeting with [facility] director of casework department, Sayra Iverson, is scheduled for Sunday. (2) Homicidal ideation: 11/13 -medically necessary private room for safety. -Homicide checks. -PO and IM medications ordered as above for agitation/aggressive behavior. 11/15 -We are maintaining a medically necessary private room. -The patient tells us that he is having no thoughts of harming other people, but he remains floridly manic. (3) Seizure: 11/13 -patient has reported a history of seizures after a head injury years ago, but this has not been confirmed. At the time of his 11/08/2018 hospitalization, he reported being prescribed Keppra, but neurology records in dicated concern that it may increase his emotional lability, so he was switched to Depakote for both seizure control and mood stabilization. Previous neurology consultations reviewed; they saw him in 06/2018 and 10/2018. At the time of the most recent consultation, the patient reported noncompliance with Keppra as he felt it destabilized mood, so gabapentin 300 mg 3 times daily was recommended. His EEG was normal at that time, there was no known history of seizure disorder, and they suspected any seizure activity was due to alcohol withdrawal. No seizure activity observed during his U admissions. Continue Depakote, and increase as above. (4) Cannabis use disorder, mild, abuse: 11/13 -long-standing history of substance abuse, including alcohol, cannabis, methamphetamine, and cocaine; avoid use of controlled substances especially outside of the hospital due to the high risk of abuse/misuse/negative outcomes. -UDS was positive for THC on admission 11/08/2018, but drug screen is negative on this admission. Nevertheless, once his mental status improves, he will require ongoing psychoeducation regarding the risks of continued substance abuse, as he is clearly decompensated over the past month in the context of heavy drug use. -Will refer for outpatient mental health and substance abuse treatment prior to discharge. (5) Alcohol abuse: 11/13 -patient reports being sober for 2 years, although information in the medical record contradicts this. 10/20/2018 he had a blood alcohol level of 267.4 in the ER, and UDS was positive for THC. 10/18/2018 drug screen was positive for methamphetamine (confirmatory result positive with a level of 1020) and THC as well as a BAL of 175.3. 10/15/2018 UDS was positive for cocaine and methamphetamine, and 06/27/2018 BAL was 199. He is a poor/unreliable historian and we have not been able to obtain collateral from friends or family. -He is not at risk for withdrawal currently, as he was in the hospital for 5 days and was discharged for less than 24 hours prior to being readmitted, and drug screen was negative in the ER on this presentation. 11/20 - Brief intervention was offered and accepted. Intervention was greater than 5 min in length. Brief interventions include: 1. Assess Readiness to Quit, 2. Advise: Help Patient to Reduce or Abstain from Alcohol, 3. Agree: Set Specific, Feasible Goals, 4. Assist: Anticipate barriers, Problem-Solving Solutions. Social work to 5. Arrange: Referrals to appropriate treatment. Summary of intervention: The patient is in contemplation stage with regards to transtheoretical model of change. The patient is advised to abstain from drugs and alcohol due to depressant effects and risk of interactions with prescription medications. The patient agreed to abstain, and will be provided with recovery materials to continue to education self on how to cope with their condition without drinking. He claims that he has been sober for 2 years, but has had multiple hospitalizations recently with high blood alcohol levels and drug use as above. Continue to support sobriety and assisting with coping techniques. (6) Nicotine addiction: 11/13 -offer nicotine patch and gum for cravings. Offer smoking cessation education. Inventory Assets Strengths: Has insurance/access to care, premorbid good functioning, Needs: Prolonged hospitalization for symptom stabilization, sobriety from substances, robust outpatient care Risk Factors Assessment Male: Yes : Yes Do You Have Access To A Gun?: No Health Problems: Yes Mental Health Diagnoses: Yes Substance Use Disorders: Yes Previous Psychiatric Hospitalization: Yes Smoker: Yes Protective Factors Assessment : No Responsible for Young Children: No Employed: No (disabled) Stable Relationships: No Supportive Family: No Good Rapport with Provider: No Interval History Identifying Information FREDA MO is a 58-year-old M who is currently homeless, has a history of bipolar disorder and substance abuse, and was admitted on 11/13/18 05:23 on a 302 involuntary commitment for erratic behavior, sam and homicidal ideation. He had just been discharged from the [facility] on 11/12/2018 after a 5-day hospitalization. He is on a 303 involuntary commitment as of 11/14/2018 Chief Complaint "Yeah, you know, I have had trouble sleeping the past few days." Review of Systems Notes Constitutional: reports restless sleep the past 2-3 nights Cardiovascular: denied Respiratory: denied Gastrointestinal: denied Neurological: denied Psychiatric: denies symptoms other than stated above Total of at least 10 systems reviewed, pertinent positives as above and in HPI. Sleep Information Total Hours of Sleep: 4.5 Sleep Comments: awake for the day at 0030. attempted to fall back to sleep on his own but could not. received prn hs vistaril and tylenol for sleep aid. he was able to fall back to sleep. awake at 0400 for the day-did laps in the hallway areas. Meal Information Percent Meal Consumed - Breakfast: 100 Percent Meal Consumed - Lunch: 100 Percent Meal Consumed - Dinner: 100 Subjective Subjective Patient was seen & assessed and interval progress reviewed with nursing and social work. Staff reports the patient completed his intake for case management referral. He also had a meeting yesterday with a coordinator from the [facility]. There is hope that they will be able to assist with housing and funding upon the patient's discharge. Staff also reports the patient has been walking more frequently and reporting restlessness, questioning if this is due to medications. Patient was seen today to assess progress since admission. 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 He denies any clear concerns to suggest akathisia, stating that he is feeling "bored and restless" which is why he has been doing laps more frequently. Reduced dose of Abilify was discussed with patient and attempts to limit some of this restlessness. Patient shares with this provider the progress he has been making towards securing housing after discharge. He states he would feel comfortable staying in a motel until his apartment is available, and believes this would be financially feasible. 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 Patient does admit that he was to meet them but was unable to do to this admission. He then tells this provider that he has not Cherri Stephen through his sister who he states is rather prominent in the [place]. Thought is not likely he had a scheduled appointment, it remains unclear if this is a continued delusion or an actual conversation he had with his sister who may actually have the means to allow for this visit. Patient is agreeable to continuing to assist staff with discharge and aftercare planning. He is hopeful to have housing options arranged and be discharged to the next week. Physical Exam Psychiatric Orientation: alert, oriented x 3 and cooperative (And pleasant) Apperance: appropriately dressed and appropriately groomed Eye Contact: good eye contact Motor Behavior: steady gait and station and no abnormal motor movements Speech: normal rate/rhythm/volume of speech (Pressured speech is gradually improving, it remains rapid at times) Affect: euthymic affect Mood: no depressed mood and no anxious mood "I am feeling real good, just want to make sure everything is set up." Thought Process: goal directed thought process, linear/logical thought process and clear/coherent thought process Patient does not verbalize delusional thought content openly. When pressed about previous reports that he was to meet President Leti, he admits this is true but gives a somewhat more legitimate explanation as to how this visit would have been arranged (sister in [place]). Verbalization of his service is much more realistic. Suicidal Thoughts: denies suicidal thoughts Homicidal Thoughts: denies homicidal thoughts Hallucinations: no auditory hallucinations and no visual hallucinations Cognition: attention grossly intact and language grossly intact Estimated Intelligence: consistent with education level Insight: + impaired insight (Though improving gradually) Judgement: + impaired judgement (Though improving gradually) Vital Signs (Past 24 Hours) Last Vital Signs Temp 36.5 C 11/21/18 06:36 Pulse 92 H 11/21/18 06:37 Resp 18 11/21/18 06:36 BP 102/67 11/21/18 06:37 Pulse Ox 96 11/13/18 05:55 Results & Data Current Inpatient Medications Current Inpatient Medications: Current Inpatient Medications Acetaminophen (Tylenol) 650 mg PO Q4H PRN PRN Reason: Headache or Minor Fever Stop: 12/13/18 05:22 Last Admin: 11/21/18 01:20 Dose: 650 mg Documented by: Al Hydrox/Mg Hydrox/Simethicone (Maalox) 30 ml PO Q4H PRN PRN Reason: GI Upset Stop: 12/13/18 05:22 Aripiprazole (Abilify) 15 mg PO QAM [facility] Stop: 12/22/18 08:59 Divalproex Sodium (Depakote Extended Release) 500 mg PO QAM [facility] Stop: 12/14/18 08:59 Last Admin: 11/21/18 08:31 Dose: 500 mg Documented by: Divalproex Sodium (Depakote Extended Release) 1,500 mg PO HS [facility] Stop: 12/19/18 21:59 Last Admin: 11/20/18 21:07 Dose: 1,500 mg Documented by: Haloperidol (Haldol) 10 mg PO Q4H PRN PRN Reason: psychosis Stop: 12/13/18 09:11 Haloperidol Lactate (Haldol) 10 mg IM Q4H PRN PRN Reason: psychosis Stop: 12/13/18 09:11 Haloperidol Lactate (Haldol) 10 mg IM BID PRN PRN Reason: refusal of PO meds Stop: 12/14/18 11:39 Hydroxyzine HCl (Vistaril) 50 mg PO HSZ PRN PRN Reason: Insomnia Stop: 12/13/18 05:22 Last Admin: 11/21/18 01:19 Dose: 50 mg Documented by: Hydroxyzine HCl (Vistaril) 25 mg PO Q4H PRN PRN Reason: Anxiety Stop: 12/13/18 05:22 Lorazepam (Ativan) 1 mg PO Q4H PRN PRN Reason: psychosis or agitation Stop: 12/13/18 09:12 Lorazepam (Ativan) 1 mg IM Q4H PRN PRN Reason: psychosis or agitation Stop: 12/13/18 09:12 Magnesium Hydroxide (Milk Of Magnesia) 30 ml PO DAILY PRN PRN Reason: Heartburn Stop: 12/13/18 05:22 Nicotine (Nicoderm Cq) 14 mg TD QAM [facility] Stop: 12/13/18 08:59 Last Admin: 11/21/18 08:32 Dose: Not Given Documented by: Nicotine Polacrilex (Nicorette 2mg) 1 piece MT UD PRN PRN Reason: Nicotine Withdrawal Stop: 12/13/18 05:22 Sodium Chloride ([place] Nasal) 1 - 2 sprays NA PRN PRN PRN Reason: Nasal Dryness/Congestion Stop: 12/13/18 05:22 Post Discharge Appointments Primary Care Physician Name Of Family Doctor: Dr. Escalona Therapist Name of Therapist: EDIL Rinaldi [facility] Therapist's Date of Therapist Appointment: 11/29/18 Time of Therapist Appointment: 10:30am [place] Name of Roustabout: Mónica lambert ALYSON CPT Code CPT Code 01708
[2018-11-22] MEDS: ARIPiprazole 5 MG TAB PO SCH (07:35)
[2018-11-22] MEDS: DIVALPROEX EXTENDED RELEASE 500 MG TAB PO SCH ×2 (07:35→21:07)
[2018-11-22] MEDS: NICOTINE 14 MG/24 HR PATCH TD SCH ×2 (07:35→07:37)
--- NOTE | 2018-11-22 11:56 | Psychiatric Progress Note ---
Date of Service November 22, 2018 Impression / Recommendations Impression 58-year-old single homeless male with a history of bipolar disorder, polysubstance abuse with severe alcohol use disorder and a history of alcohol withdrawal, cannabis abuse, and recent methamphetamine and cocaine abuse, and multiple recent contacts due to manic and psychotic symptoms and erratic behavior, who was discharged from the [facility] 11/12/2018 after a 5-day involuntary psychiatric hospitalization for psychotic sam, and re-presented to the ER within 24 hours of discharge due to ongoing psychosis, sam, erratic and threatening behavior. Patient received injection of Abilify Maintena on 11/20/2018, next dose due for 12/18/2018. Patient admits to some boredom and restlessness due to his prolonged stay, but clear presence of akathisia is uncertain. Nonetheless, we will reduce his oral dose of aripiprazole to 15 mg daily as this may be beneficial for his restlessness. Patient's valproic acid trough level on 11/18/2018 was 55. He was agreeable to titration of valproic acid to 500 mg every morning and 1500 mg nightly. Repeat valproic acid level is ordered for 11/24/2018. His manic and psychotic symptoms are improving, and we are working on discharge planning. He has a long history of noncompliance and is unlikely to be adherent with psychiatric medications or treatment recommendations upon discharge, so we have started the long-acting injectable antipsychotic, and will recommend an outpatient commitment. He is being referred for various services in the community, including case management, [facility] the [facility], [facility], therapy and psychiatric care. Today, from the perspective of not having evaluated the patient since last Sunday I am able to notice significant improvements. Although his speech remained somewhat pressured, he is easily interruptible and is able to listen fairly assiduously to what is being said to him, and he is also able to process it and respond appropriatelywhereas this time last week he was only occasionally able to listen to what was being said to him and respond to it before he moved onto an entirely unrelated subject, or had a clang association. The patient's mood and thought content both remain expansive. As noted above, he is asserting that although he has no service connected disability from his years in the [employer] a VA packaging sales representative has assured him that he has "no money worries" and that the VA will be "paying for helping with" his rent, his cable bill, and his food bill. (He also reportedly told staff that the VA has promised to help him purchase a car.) He tells us that he would like to be able to get his psychiatric treatment through the [facility] upon discharge, but was told that this would require him to travel to [place] from [place], and he does not know if the [place] offers transportationand he does not wish to relocate to [place]. The patient is acknowledging his improvement, and attributes that, at least in part, to the addition of aripiprazole. Specifically, he reports that it has allowed him to be more calm, think more clearly, and to process data in a more organized way. The patient also reports that he feels that the individual, group, and activity therapies that he has participated in on the unit have been very helpful, not only to him personally, but because it allows him to have a sense of purpose because he feels that he has been able to help some of the younger patients by providing them with "advice based on experience." (1) Bipolar 1 disorder: 11/13 -current episode manic, severe, with psychosis. -Continue involuntary hospitalization, and petition for a 303 involuntary commitment given the likely need for long-term inpatient treatment given pattern of instability, severe symptoms, inability to function or provide for his own basic needs including housing and medical treatment, and risk of harm to others as evidenced by threats to kill people at the hotel the day prior to presentation, threats to hospital staff in the ER, and violent behavior. -Continue risperidone and increase to 2 mg every morning and 3 mg nightly. Order fasting glucose and lipid profile for monitoring on an atypical antipsychotic. -Continue Depakote and increase to 500 mg every morning and 1000 mg nightly, and check a trough level in 5 days (ordered for 11/18/2018). -Haloperidol 10 mg p.o./IM and Lorazepam 1 mg p.o./IM every 4 hours as needed ps ychosis or agitation. - Patient has had 5 head CTs and one brain MRI since 06/2018; no acute abnormalities, but notable for patchy white matter hypodensities (moderate subcortical and periventricular microangiopathic disease) and atrophy. TSH has been checked several times in the last month alone, and is within normal limits. CMP notable for elevated AST and ALT, which has been consistent for at least the past year, and is actually improved somewhat since December 2017. UA is normal with no signs of infection, and although he has had multiple positive drug screens in the past month, his drug screen on presentation overnight was negative. Hepatitis A IgM and antibody, hepatitis B antigen and IgM antibody, and hepatitis C antibody were nonreactive in 10/2018. RPR was nonreactive in 12/2017. No identified organic cause of his mood and psychotic symptoms, and past history of mental illness is not known. Most appropriate diagnoses based on available information is bipolar disorder type I and polysubstance abuse. -File for 303 involuntary commitment with hearing tomorrow. Consider the need for long-term inpatient treatment at the [facility] versus involuntary outpatient commitment. 11/14 -303 commitment granted -Patient has intermittently refused medications. He has been seen by 2 physicians, both of whom recommend medications over objection. Will order Haldol 10 mg IM backup for refusal of p.o. medications. -Continue risperidone and Depakote as above. Fasting lipid profile and glucose checked today for monitoring on an atypical antipsychotic and are within normal limits. -Attempt to contact his sister and involve her in treatment. He has mentioned multiple girlfriends, unclear if this is delusional. We will continue to explore any other supports. His outpatient correctional case records supervisor through his insurance company has been informed of his admission, and hopefully can assist in exploring housing options. 11/15 -Today, the patient expresses willingness to adhere with medications as prescribed. Although he lacks substantial insight into his illness, he agrees that he will consent to a trial of aripiprazole 10 mg daily, with eventual goal of cross titrating aripiprazole and risperidone, while continuing valproic acid. -The patient remains floridly psychotic and continues to show marked symptoms of sam, including pressured speech, flight of ideas, increased energy, motoric hyperactivity, expansive mood, elated mood, and delusional grandiosity. -The patient gave us permission to speak with his sister. Information obtained is that he does not have a current girlfriend in [place], but had one perhaps 30 years ago. -Aripiprazole 10 mg daily, with a starting dose today, has been ordered. -Begin aripiprazole cross titration with risperidone, possibly beginning to walker, as tolerated. -Consider substituting Abilify Maintena, depending on response to oral aripiprazole. 11/16 -Continue aripiprazole 10 mg daily, and reduce risperidone to 2 mg twice daily. Continue to cross titration, and agree with Maindaphnea if aripiprazole is effective. -Increase aripiprazole to 15 mg daily for tomorrow, and reduce risperidone to 2 mg at bedtime. We will contact outpatient correctional case records supervisor tomorrow for assistance in housing and referring for outpatient treatment. He apparently needs to get a new correctional case records supervisor within [facility], and will also need outpatient care with a psychiatrist and therapist, as well as a 304 outpatient commitment. 11/18 - Aripiprazole titrated to 20mg daily starting tomorrow - prior authorization sent for coverage of Jd Solorzanoa, which patient is agreeable to starting - Risperidone tapered to 1mg HS for this evening; continue cross-taper - will require 2-weeks of oral aripiprazole following Maintena injection - Depakote level on lower end of therapeutic range at 55; consider further titration - held off today due to adjustment in aripiprazole dosing - Pt has made calls to explore housing options on discharge - Continue to coordinate appropriate aftercare, will likely need a 304 outpatient commitment to improve compliance 11/19 - Continue aripiprazole 20mg qAM - awaiting PA on Abilif[place]cepción Santi[place]otena, patient remains agreeable to injection - Depakote increased to 500mg qAM and 1500mg qHS - speech remains rapid and pressured, grandiose delusions improving but persist; will order repeat depakote level for 11/24 - Will discontinue risperidone at this time - Attempting to coordinate appropriate discharge plan, patient assisting 11/20 -Patient continues to improve, and has been cooperative with treatment. We reviewed the risks of the Maintena injection, he is agreeable to receiving it today, and will continue oral aripiprazole 20 mg daily for 2 weeks before discontinuing. His next injection will be due 12/18/2018. -[facility] with staff from the [facility] yesterday who will help determine what services he is eligible for. Refer to the base service unit for a blended correctional case records supervisor. Continue to coordinate with correctional case records supervisor through his insurance. 11/21 - Received Abilify Maintena injection on 11/20 - next injection due 12/18/18 - Will decrease oral dose of Abilify to 15mg daily, as may improve feelings of restlessness - unclear if true akathisia - Continue to solidify housing options and outpatient supports who will be assisting patient after discharge - Meeting with [facility] correctional case records supervisor, Sayra Iverson, is scheduled for Sunday. 11/22 -The patient continues to tolerate Abilify maintain a well. He notes mild sedation, but describes this as "a good thing," and notes that he had previously been "too hyper." -We are monitoring for akathisia. No cogwheel rigidity is in evidence on examination. -Given the patient's recent history of rapid decompensation in the community, we are placing an emphasis on securing wraparound services in the stable living in, with adequate psychiatric aftercare services prior to discharge. Present on Admission?: Yes (2) Homicidal ideation: 11/13 -medically necessary private room for safety. -Homicide checks. -PO and IM medications ordered as above for agitation/aggressive behavior. 11/15 -We are maintaining a medically necessary private room. -The patient tells us that he is having no thoughts of harming other people, but he remains floridly manic. 11/22 -The patient has no homicidal thoughts and this problem is now resolved. Present on Admission?: Yes (3) Seizure: 11/13 -patient has reported a history of seizures after a head injury years ago, but this has not been confirmed. At the time of his 11/08/2018 hospitalization, he reported being prescribed Keppra, but neurology records indicated concern that it may increase his emotional lability, so he was switched to Depakote for both seizure control and mood stabilization. Previous neurology consultations reviewed; they saw him in 06/2018 and 10/2018. At the time of the most recent consultation, the patient reported noncompliance with Keppra as he felt it destabilized mood, so gabapentin 300 mg 3 times daily was recommended. His EEG was normal at that time, there was no known history of seizure disorder, and they suspected any seizure activity was due to alcohol withdrawal. No seizure activity observed during his [facility] admissions. Continue Depakote, and increase as above. 11/22 -now that the patient has become more organized, he is better able to describe what he refers to as "seizures." As described by the patient, he reports a feeling of lightheadedness that is sometimes succeeded by a "blinding, throbbing headache" that involves his entire head from the forehead to his occipital region. He reports associated abdominal pain, nausea, and photophobia, and he notes that these symptoms, when they occur, tend to last "only a matter of minutes" before they improve and then resolve. He may or may not lose consciousness when this happens. He notes that he has sustained injuries from feeling "lightheaded" when the seizures began, but he says that he does not believe that he exhibits typical clonic tonic movements, nor does he lose control of bowel or bladder. The patient has a history of a number of head injuries that predated the onset of what he is referring to as "seizures." I believe that in the differential diagnosis should be the possibility of the patient is having a typical migraine headaches. In any event, he reports that he has had none since his admission to the unit several weeks ago. Present on Admission?: Yes (4) Cannabis use disorder, mild, abuse: 11/13 -long-standing history of substance abuse, including alcohol, cannabis, methamphetamine, and cocaine; avoid use of controlled substances especially outside of the hospital due to the high risk of abuse/misuse/negative outcomes. -UDS was positive for THC on admission 11/08/2018, but drug screen is negative on this admission. Nevertheless, once his mental status improves, he will require ongoing psychoeducation regarding the risks of continued substance abuse, as he is clearly decompensated over the past month in the context of heavy drug use. -Will refer for outpatient mental health and substance abuse treatment prior to discharge. (5) Alcohol abuse: 11/13 -patient reports being sober for 2 years, although information in the medical record contradicts this. 10/20/2018 he had a blood alcohol level of 267.4 in the ER, and UDS was positive for THC. 10/18/2018 drug screen was positive for methamphetamine (confirmatory result positive with a level of 1020) and THC as well as a BAL of 175.3. 10/15/2018 UDS was positive for cocaine and methamphetamine, and 06/27/2018 BAL was 199. He is a poor/unreliable historian and we have not been able to obtain collateral from friends or family. -He is not at risk for withdrawal currently, as he was in the hospital for 5 days and was discharged for less than 24 hours prior to being readmitted, and drug screen was negative in the ER on this presentation. 11/20 - Brief intervention was offered and accepted. Intervention was greater than 5 min in length. Brief interventions include: 1. Assess Readiness to Quit, 2. Advise: Help Patient to Reduce or Abstain from Alcohol, 3. Agree: Set Specific, Feasible Goals, 4. Assist: Anticipate barriers, Problem-Solving Solutions. Social work to 5. Arrange: Referrals to appropriate treatment. Summary of intervention: The patient is in contemplation stage with regards to transtheoretical model of change. The patient is advised to abstain from drugs and alcohol due to depressant effects and risk of interactions with prescription medications. The patient agreed to abstain, and will be provided with recovery materials to continue to education self on how to cope with their condition without drinking. He claims that he has been sober for 2 years, but has had multiple hospitalizations recently with high blood alcohol levels and drug use as above. Continue to support sobriety and assisting with coping techniques. 11/22 -the patient has stopped insisting that he has been sober "for 2 years," and acknowledges that, in fact, he has deliberately consumed alcohol and the intercurrent period. He had some difficulty identifying alcohol use triggers, but was eventually able to say "I guess when I get bored or frustrated." And today, he was able to at least voice recognition that the apartment that he plans to move into following discharge is located near several establishments that cell alcoholic beverages, and that this will present a temptation. He knows, "I guess with alcohol there is always a temptation, but I realize that I tend to get myself in a lot of trouble when I drink and I am definitely not going to." I suggested participation in Alcoholics Anonymous, and he said that he would follow that advice, and that he knows where there are AA meetings in [place]. Present on Admission?: Yes (6) Nicotine addiction: 11/13 -offer nicotine patch and gum for cravings. Offer smoking cessation education. 11/22 -the patient tells us that he smokes "about 1 cigar a day," and does not smoke cigarettes. He also tells us that he is not currently craving tobacco products, but also acknowledges that he "misses chewing tobacco," and acknowledges that he may be apt to return to the use of chewing tobacco. I reminded that this former tobacco use is also quite dangerous and, among other things, can lead to fatal oral cancers. The patient indicated understanding. Present on Admission?: Yes Inventory Assets Strengths: Has insurance/access to care, premorbid good functioning, Needs: Prolonged hospitalization for symptom stabilization, sobriety from substances, robust outpatient care Risk Factors Assessment Male: Yes : Yes Do You Have Access To A Gun?: No Health Problems: Yes Mental Health Diagnoses: Yes Substance Use Disorders: Yes Previous Attempt: No Previous Psychiatric Hospitalization: Yes Hopelessness: No Smoker: Yes Protective Factors Assessment Yazidi Beliefs: Yes : No Responsible for Young Children: No Employed: No (disabled) Stable Relationships: No Supportive Family: No Good Rapport with Provider: No Absence of Any Risk Factors Above: No Interval History Identifying Information FREDA MO is a 58-year-old M who is currently homeless, has a history of bipolar disorder and substance abuse, and was admitted on 11/13/18 05:23 on a 302 involuntary commitment for erratic behavior, sam and homicidal ideation. He had just been discharged from the [facility] on 11/12/2018 after a 5-day hospitalization. He is on a 303 involuntary commitment as of 11/14/2018 Chief Complaint "I'm doing better." Review of Systems Sleep Information Total Hours of Sleep: 3.5 Sleep Comments: pt given vistaril x2 per rn. pt pacing at times or sitting in the dayarea unable to remain asleep. pt currently in dayarea talking with another pt. pt on q-15 minute checks. pt pleasant Meal Information Percent Meal Consumed - Breakfast: 100 Percent Meal Consumed - Lunch: 100 Percent Meal Consumed - Dinner: 100 Subjective Subjective Patient was seen & assessed and interval progress reviewed with Treatment Team. I met individually with the patient in order to assess his current mental status, evaluate his response to treatment, coordinate any changes in the patient's treatment regimen with the patient, and address issues and concerns that might arise. Today, the patient tells me that he feels that he is doing "a whole lot better," and tells me that he believes that he has been "a model patient." He also tells me that he is eager to do that which is necessary in order to avoid need to be readmitted, and he also tells me that he is eager to "stay out of trouble" and stay sober and drug-free indefinitely following discharge. The patient tells me that he has been making phone calls and searching for an apartment in the [place] region, and he says that he understands that he needs to stay in the area in order to focus on treatment and recovery. Recently, the patient had said that he had planned to move to nearby [place], [place] or nearby [facility], but was unsuccessful in securing an apartment in either of those locations and has now found an apartment on [address] in [place] that he says is consistent with his budget and is in a good location. He has made arrangements with the landlord to take the apartment, and hopes to be able to bring her the first month's rent and a security deposit early next week. He notes that the apartment will not be available immediately, and possibly not until the end of the current month, and his plan would be to stay in an inexpensive local motel until the apartment is vacated. We discussed the fact that establishments on [address] that cell alcoholic beverages and a concern that we would have is that he would be tempted to relapse on alcohol. The patient tells me that he is aware of the risk, but adds, "well, that is pretty much everywhere, and it will be up to me to stay sober. I am determined, but you are right there is always temptation." The patient also tells me that he feels that Abilify has "calm [him] down," and that he is "better able to take time and think things through." He notes some sedation, but says that he feels that this is "a good thing." I questioned him about his previous plan to move to [place], but he smiled and said "well, that is off the table. I am not going to [place]. Its best I stay right in this area." I asked him about his previ ous plan to meet with President Leti, and his response was "well, that is over. It may be in the future if he gets in touch with me." He specifically says that he has no plans to go to the [place] or to attempt to contact the President. He does, however, tell me that he would like to go to [place], as a tourist, because "I have always wanted to see [place]. I hear it is beautiful," but he notes that he will need to "save [his] pennies before I can do that." He tells me that he also would like to see [place], but that is not in his current plans. (Previously, he has asserted the sign to go to [place] to return prisoners of war from the [place] era." Also, today the patient tells me that he has met with a packaging sales representative from the [employer], and has been told that the [employer] will provide him with assistance for his apartment and other living expenses. He reportedly, he also told staff that the [facility] has offered to help him purchase a motor vehicle, although he does not have a yard driver's license. As best we can tell, the patient does not have a service connected disability and it is not clear whether the patient may have misunderstood what he was told by the VA packaging sales representative, or if the packaging sales representative misspoke, or if this is part of the patient's tendency to be expansive. We discussed the fact that he has not been sleeping at night as consistently as he had been, and he explains that he has been "napping" during the day, and he describes this as a "bad habit." Physical Exam Psychiatric Orientation: oriented x 3 Apperance: appropriately dressed and appropriately groomed Eye Contact: good eye contact Motor Behavior: no abnormal motor movements The patient's speech remains somewhat rapid and mildly pressured. However, he is easily interrupted and not nearly as pressured as it was this time last week. Affect: euthymic affect "My mood is good. I am looking forward to being discharged, but I am still with a pretty good mood." Thought Process: linear/logical thought process (He occasionally becomes somewhat tangential, but tends to quickly rejoin his original thought.) For the most part, the patient's thought content seems to be reality based, although he remains somewhat expansive. For example, he does not say that he now recognizes that his belief that Scar Landeros wanted to give him a "Congressional metal of achievement" award and, more recently, that Scar Gonzalesnoemi wanted to take him out to a restaurant for a meal was not based in reality or was some sort of misunderstanding. Instead, he simply says that the offer is no longer operative because he had missed the opportunity and that, perhaps, at some point in the future he might get contacted and invited to meet the president. He has, "if not this president, may be the next one. I do not know." He assures me that he has no plans to solicit an invitation or otherwise contact our encounter the president. Suicidal Thoughts: denies suicidal thoughts Homicidal Thoughts: denies homicidal thoughts Hallucinations: no auditory hallucinations and no visual hallucinations Cognition: recent memory grossly intact Full assessment of the patient's memory remains somewhat difficult because of his tendency to be somewhat expansive and prone to exaggeration. Estimated Intelligence: average estimated intelligence Insight: + limited insight The patient is able to recognize that he has a need for psychiatric medications, and says that he understands fully that "the doctors and the nurses are recommending that I stay in treatment when I leave the hospital, and I know that that is what I should do if that is what is recommended." He is also able to tell us that he understands that his mind was "going too fast" and that he was having trouble "slowing down" long enough to process information. 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 Vital Signs (Past 24 Hours) Last Vital Signs Temp 36.4 C L 11/22/18 06:47 Pulse 93 H 11/22/18 06:47 Resp 18 11/22/18 06:47 BP 97/64 L 11/22/18 06:47 Pulse Ox 96 11/13/18 05:55 Results & Data Current Inpatient Medications Current Inpatient Medications: Current Inpatient Medications Acetaminophen (Tylenol) 650 mg PO Q4H PRN PRN Reason: Headache or Minor Fever Stop: 12/13/18 05:22 Last Admin: 11/21/18 01:20 Dose: 650 mg Documented by: Al Hydrox/Mg Hydrox/Simethicone (Maalox) 30 ml PO Q4H PRN PRN Reason: GI Upset Stop: 12/13/18 05:22 Aripiprazole (Abilify) 15 mg PO QAM KAYLAN Stop: 12/22/18 08:59 Last Admin: 11/22/18 07:35 Dose: 15 mg Documented by: Divalproex Sodium (Depakote Extended Release) 500 mg PO QAM KAYLAN Stop: 12/14/18 08:59 Last Admin: 11/22/18 07:35 Dose: 500 mg Documented by: Divalproex Sodium (Depakote Extended Release) 1,500 mg PO HS KAYLAN Stop: 12/19/18 21:59 Last Admin: 11/21/18 21:02 Dose: 1,500 mg Documented by: Haloperidol (Haldol) 10 mg PO Q4H PRN PRN Reason: psychosis Stop: 12/13/18 09:11 Haloperidol Lactate (Haldol) 10 mg IM Q4H PRN PRN Reason: psychosis Stop: 12/13/18 09:11 Haloperidol Lactate (Haldol) 10 mg IM BID PRN PRN Reason: refusal of PO meds Stop: 12/14/18 11:39 Hydroxyzine HCl (Vistaril) 50 mg PO HSZ PRN PRN Reason: Insomnia Stop: 12/13/18 05:22 Last Admin: 11/22/18 00:39 Dose: 50 mg Documented by: Hydroxyzine HCl (Vistaril) 25 mg PO Q4H PRN PRN Reason: Anxiety Stop: 12/13/18 05:22 Lorazepam (Ativan) 1 mg PO Q4H PRN PRN Reason: psychosis or agitation Stop: 12/13/18 09:12 Lorazepam (Ativan) 1 mg IM Q4H PRN PRN Reason: psychosis or agitation Stop: 12/13/18 09:12 Magnesium Hydroxide (Milk Of Magnesia) 30 ml PO DAILY PRN PRN Reason: Heartburn Stop: 12/13/18 05:22 Nicotine (Nicoderm Cq) 14 mg TD QAM KAYLAN Stop: 12/13/18 08:59 Last Admin: 11/22/18 07:37 Dose: Not Given Documented by: Nicotine Polacrilex (Nicorette 2mg) 1 piece MT UD PRN PRN Reason: Nicotine Withdrawal Stop: 12/13/18 05:22 Sodium Chloride (Dooly Nasal) 1 - 2 sprays NA PRN PRN PRN Reason: Nasal Dryness/Congestion Stop: 12/13/18 05:22 Post Discharge Appointments Primary Care Physician Name Of Family Doctor: Dr. Escalona Therapist Name of Therapist: EDIL Rinaldi [facility] Therapist's Date of Therapist Appointment: 11/29/18 Time of Therapist Appointment: 10:30am Tra[facility] Tra[facility] CPT Code CPT Code 16179
[2018-11-23] MEDS: ARIPiprazole 5 MG TAB PO SCH (08:06)
[2018-11-23] MEDS: NICOTINE 14 MG/24 HR PATCH TD SCH (08:07)
[2018-11-23] MEDS: DIVALPROEX EXTENDED RELEASE 500 MG TAB PO SCH ×2 (08:07→21:38)
--- NOTE | 2018-11-23 12:59 | Psychiatric Progress Note ---
Date of Service November 23, 2018 Impression / Recommendations Impression 58-year-old single homeless male with a history of bipolar disorder, polysubstance abuse with severe alcohol use disorder and a history of alcohol withdrawal, cannabis abuse, and recent methamphetamine and cocaine abuse, and multiple recent contacts due to manic and psychotic symptoms and erratic behavior, who was discharged from the [facility] 11/12/2018 after a 5-day involuntary psychiatric hospitalization for psychotic sam, and re-presented to the ER within 24 hours of discharge due to ongoing psychosis, sam, erratic and threatening behavior. Patient received injection of Abilify Maintena on 11/20/2018, next dose due for 12/18/2018. Patient admits to some boredom and restlessness due to his prolonged stay, but clear presence of akathisia is uncertain. Nonetheless, we will reduce his oral dose of aripiprazole to 15 mg daily as this may be beneficial for his restlessness. Patient's valproic acid trough level on 11/18/2018 was 55. He was agreeable to titration of valproic acid to 500 mg every morning and 1500 mg nightly. Repeat valproic acid level is ordered for 11/24/2018. His manic and psychotic symptoms are improving, and we are working on discharge planning. He has a long history of noncompliance and is unlikely to be adherent with psychiatric medications or treatment recommendations upon discharge, so we have started the long-acting injectable antipsychotic, and will recommend an outpatient commitment. He is being referred for various services in the community, including case management, services through the [facility], [facility], therapy and psychiatric care. Today, from the perspective of not having evaluated the patient since last Sunday I am able to notice significant improvements. Although his speech remained somewhat pressured, he is easily interruptible and is able to listen fairly assiduously to what is being said to him, and he is also able to process it and respond appropriatelywhereas this time last week he was only occasionally able to listen to what was being said to him and respond to it before he moved onto an entirely unrelated subject, or had a clang association. The patient's mood and thought content both remain expansive. As noted above, he is asserting that although he has no service connected disability from his years in the [employer] a VA veterans service representative has assured him that he has "no money worries" and that the VA will be "paying for helping with" his rent, his cable bill, and his food bill. (He also reportedly told staff that the VA has promised to help him purchase a car.) He tells us that he would like to be able to get his psychiatric treatment through the [facility] upon discharge, but was told that this would require him to travel to [place] from [place], and he does not know if the [facility] offers transportationand he does not wish to relocate to [place]. The patient is acknowledging his improvement, and attributes that, at least in part, to the addition of aripiprazole. Specifically, he reports that it has allowed him to be more calm, think more clearly, and to process data in a more organized way. The patient also reports that he feels that the individual, group, and activity therapies that he has participated in on the unit have been very helpful, not only to him personally, but because it allows him to have a sense of purpose because he feels that he has been able to help some of the younger patients by providing them with "advice based on experience." Pt reports comfort with binh belle with aim to have abilify po medication for the first 14 days after this first injection given on 11/20. Dose lowered from 20mg to 15mg over concern of akathasia at 20mg. (1) Bipolar 1 disorder: 11/13 -current episode manic, severe, with psychosis. -Continue involuntary hospitalization, and petition for a 303 involuntary commitment given the likely need for long-term inpatient treatment given pattern of instability, severe symptoms, inability to function or provide for his own basic needs including housing and medical treatment, and risk of harm to others as evidenced by threats to kill people at the hotel the day prior to presentation, threats to hospital staff in the ER, and violent behavior. -Continue risperidone and increase to 2 mg every morning and 3 mg nightly. Order fasting glucose and lipid profile for monitoring on an atypical antipsychotic. -Continue Depakote and increase to 500 mg every morning and 1000 mg nightly, and check a trough level in 5 days (ordered for 11/18/2018). -Haloperidol 10 mg p.o./IM and Lorazepam 1 mg p.o./IM every 4 hours as needed psychosis or agitation. - Patient has had 5 head CTs and one brain MRI since 06/2018; no acute abnormalities, but notable for patchy white matter hypodensities (moderate subcortical and periventricular microangiopathic disease) and atrophy. TSH has been checked several times in the last month alone, and is within normal limits. CMP notable for elevated AST and ALT, which has been consistent for at least the past year, and is actually improved somewhat since December 2017. UA is normal with no signs of infection, and although he has had multiple positive drug screens in the past month, his drug screen on presentation overnight was negative. Hepatitis A IgM and antibody, hepatitis B antigen and IgM antibody, and hepatitis C antibody were nonreactive in 10/2018. RPR was nonreactive in 12/2017. No identified organic cause of his mood and psychotic symptoms, and past history of mental illness is not known. Most appropriate diagnoses based on available information is bipolar disorder type I and polysubstance abuse. -File for 303 involuntary commitment with hearing tomorrow. Consider the need for long-term inpatient treatment at the [facility] versus involuntary outpatient commitment. 11/14 -303 commitment granted -Patient has intermittently refused medications. He has been seen by 2 physicians, both of whom recommend medications over objection. Will order Haldol 10 mg IM backup for refusal of p.o. medications. -Continue risperidone and Depakote as above. Fasting lipid profile and glucose checked today for monitoring on an atypical antipsychotic and are within normal limits. -Attempt to contact his sister and involve her in treatment. He has mentioned multiple girlfriends, unclear if this is delusional. We will continue to explore any other supports. His outpatient pillowcase sewer through his insurance company has been informed of his admission, and hopefully can assist in exploring housing options. 11/15 -Today, the patient expresses willingness to adhere with medications as prescribed. Although he lacks substantial insight into his illness, he agrees that he will consent to a trial of aripiprazole 10 mg daily, with eventual goal of cross titrating aripiprazole and risperidone, while continuing valproic acid. -The patient remains floridly psychotic and continues to show marked symptoms of sam, including pressured speech, flight of ideas, increased energy, motoric hyperactivity, expansive mood, elated mood, and delusional grandiosity. -The patient gave us permission to speak with his sister. Information obtained is that he does not have a current girlfriend in [place], but had one perhaps 30 years ago. -Aripiprazole 10 mg daily, with a starting dose today, has been ordered. -Begin aripiprazole cross titration with risperidone, possibly beginning tomorrow, as tolerated. -Consider substituting Abilify Maintena, depending on response to oral aripiprazole. 11/16 -Continue aripiprazole 10 mg daily, and reduce risperidone to 2 mg twice daily. Continue to cross titration, and agree with Maintena if aripiprazole is effective. -Increase aripiprazole to 15 mg daily for tomorrow, and reduce risperidone to 2 mg at bedtime. We will contact outpatient pillowcase sewer tomorrow for assistance in housing and referring for outpatient treatment. He apparently needs to get a new pillowcase sewer within [facility], and will also need outpatient care with a psychiatrist and therapist, as well as a 304 outpatient commitment. 11/18 - Aripiprazole titrated to 20mg daily starting tomorrow - prior authorization sent for coverage of Abilify Maintena, which patient is agreeable to starting - Risperidone tapered to 1mg HS for this evening; continue cross-taper - will require 2-weeks of oral aripiprazole following Maintena injection - Depakote level on lower end of therapeutic range at 55; consider further titration - held off today due to adjustment in aripiprazole dosing - Pt has made calls to explore housing options on discharge - Continue to coordinate appropriate aftercare, will likely need a 304 outpatient commitment to improve compliance 11/19 - Continue aripiprazole 20mg qAM - awaiting PA on Abilify Maintena, patient remains agreeable to injection - Depakote increased to 500mg qAM and 1500mg qHS - speech remains rapid and pressured, grandiose delusions improving but persist; will order repeat depakote level for 11/24 - Will discontinue risperidone at this time - Attempting to coordinate appropriate discharge plan, patient assisting 11/20 -Patient continues to improve, and has been cooperative with treatment. We reviewed the risks of the Maintena injection, he is agreeable to receiving it today, and will continue oral aripiprazole 20 mg daily for 2 weeks before discontinuing. His next injection will be due 12/18/2018. -Met with staff from the [facility] yesterday who will help determine what services he is eligible for. [facility] for a blended pillowcase sewer. Continue to coordinate with pillowcase sewer through his insurance. 11/21 - Received Abilify Maintena injection on 11/20 - next injection due 12/18/18 - Will decrease oral dose of Abilify to 15mg daily, as may improve feelings of restlessness - unclear if true akathisia - Continue to solidify housing options and outpatient supports who will be assisting patient after discharge - Meeting with [facility] pillowcase sewer, Sayra Iverson, is scheduled for Sunday. 11/22 -The patient continues to tolerate Abilify maintain a well. He notes mild sedation, but describes this as "a good thing," and notes that he had previously been "too hyper." -We are monitoring for akathisia. No cogwheel rigidity is in evidence on examination. -Given the patient's recent history of rapid decompensation in the community, we are placing an emphasis on securing wraparound services in the stable living in, with adequate psychiatric aftercare services prior to discharge. 11/23 - continue medications unchanged. -expecting intake with [facility] pillowcase sewer on 11/25 (2) Homicidal ideation: 11/13 -medically necessary private room for safety. -Homicide checks. -PO and IM medications ordered as above for agitation/aggressive behavior. 11/15 -We are maintaining a medically necessary private room. -The patient tells us that he is having no thoughts of harming other people, but he remains floridly manic. 11/22 -The patient has no homicidal thoughts and this problem is now resolved. (3) Seizure: 11/13 -patient has reported a history of seizures after a head injury years ago, but this has not been confirmed. At the time of his 11/08/2018 hospitalization, he reported being prescribed Keppra, but neurology records indicated concern that it may increase his emotional lability, so he was switched to Depakote for both seizure control and mood stabilization. Previous neurology consultations reviewed; they saw him in 06/2018 and 10/2018. At the time of the most recent consultation, the patient reported noncompliance with Keppra as he felt it destabilized mood, so gabapentin 300 mg 3 times daily was recommended. His EEG was normal at that time, there was no known history of seizure disorder, and they suspected any seizure activity was due to alcohol withdrawal. No seizure activity observed during his [facility] admissions. Continue Depakote, and increase as above. 11/22 -now that the patient has become more organized, he is better able to describe what he refers to as "seizures." As described by the patient, he reports a feeling of lightheadedness that is sometimes succeeded by a "blinding, throbbing headache" that involves his entire head from the forehead to his occipital region. He reports associated abdominal pain, nausea, and photophobia, and he notes that these symptoms, when they occur, tend to last "only a matter of minutes" before they improve and then resolve. He may or may not lose consciousness when this happens. He notes that he has sustained injuries from feeling "lightheaded" when the seizures began, but he says that he does not believe that he exhibits typical clonic tonic movements, nor does he lose control of bowel or bladder. The patient has a history of a number of head injuries that predated the onset of what he is referring to as "seizures." I believe that in the differential diagnosis should be the possibility of the patient is having a typical migraine headaches. In any event, he reports that he has had none since his admission to the unit several weeks ago. (4) Cannabis use disorder, mild, abuse: 11/13 -long-standing history of substance abuse, including alcohol, cannabis, methamphetamine, and cocaine; avoid use of controlled substances espec ially outside of the hospital due to the high risk of abuse/misuse/negative outcomes. -UDS was positive for THC on admission 11/08/2018, but drug screen is negative on this admission. Nevertheless, once his mental status improves, he will require ongoing psychoeducation regarding the risks of continued substance abuse, as he is clearly decompensated over the past month in the context of heavy drug use. -Will refer for outpatient mental health and substance abuse treatment prior to discharge. (5) Alcohol abuse: 11/13 -patient reports being sober for 2 years, although information in the medical record contradicts this. 10/20/2018 he had a blood alcohol level of 267.4 in the ER, and UDS was positive for THC. 10/18/2018 drug screen was positive for methamphetamine (confirmatory result positive with a level of 1020) and THC as well as a BAL of 175.3. 10/15/2018 UDS was positive for cocaine and methamphetamine, and 06/27/2018 BAL was 199. He is a poor/unreliable historian and we have not been able to obtain collateral from friends or family. -He is not at risk for withdrawal currently, as he was in the hospital for 5 days and was discharged for less than 24 hours prior to being readmitted, and drug screen was negative in the ER on this presentation. 11/20 - Brief intervention was offered and accepted. Intervention was greater than 5 min in length. Brief interventions include: 1. Assess Readiness to Quit, 2. Advise: Help Patient to Reduce or Abstain from Alcohol, 3. Agree: Set Specific, Feasible Goals, 4. Assist: Anticipate barriers, Problem-Solving Solutions. Social work to 5. Arrange: Referrals to appropriate treatment. Summary of intervention: The patient is in contemplation stage with regards to transtheoretical model of change. The patient is advised to abstain from drugs and alcohol due to depressant effects and risk of interactions with prescription medications. The patient agreed to abstain, and will be provided with recovery materials to continue to education self on how to cope with their condition without drinking. He claims that he has been sober for 2 years, but has had multiple hospitalizations recently with high blood alcohol levels and drug use as above. Continue to support sobriety and assisting with coping techniques. 11/22 -the patient has stopped insisting that he has been sober "for 2 years," an d acknowledges that, in fact, he has deliberately consumed alcohol and the intercurrent period. He had some difficulty identifying alcohol use triggers, but was eventually able to say "I guess when I get bored or frustrated." And today, he was able to at least voice recognition that the apartment that he plans to move into following discharge is located near several establishments that cell alcoholic beverages, and that this will present a temptation. He knows, "I guess with alcohol there is always a temptation, but I realize that I tend to get myself in a lot of trouble when I drink and I am definitely not going to." I suggested participation in Alcoholics Anonymous, and he said that he would follow that advice, and that he knows where there are AA meetings in [place]. (6) Nicotine addiction: 11/13 -offer nicotine patch and gum for cravings. Offer smoking cessation education. 11/22 -the patient tells us that he smokes "about 1 cigar a day," and does not smoke cigarettes. He also tells us that he is not currently craving tobacco products, but also acknowledges that he "misses chewing tobacco," and acknowledges that he may be apt to return to the use of chewing tobacco. I reminded that this former tobacco use is also quite dangerous and, among other things, can lead to fatal oral cancers. The patient indicated understanding. 11/23 - pt indicates plan for him is not resume chewing tobacco and denied need for any medical related assistance in not using chew Inventory Assets Strengths: Has insurance/access to care, premorbid good functioning, Needs: Prolonged hospitalization for symptom stabilization, sobriety from substances, robust outpatient care Risk Factors Assessment Male: Yes : Yes Do You Have Access To A Gun?: No Health Problems: Yes Mental Health Diagnoses: Yes Substance Use Disorders: Yes Previous Attempt: No Previous Psychiatric Hospitalization: Yes Hopelessness: No Smoker: Yes Protective Factors Assessment Church Beliefs: Yes : No Responsible for Young Children: No Employed: No (disabled) Stable Relationships: No Supportive Family: No Good Rapport with Provider: No Absence of Any Risk Factors Above: No Interval History Identifying Information FREDA MO is a 58-year-old M who is currently homeless, has a history of bipolar disorder and substance abuse, and was admitted on 11/13/18 05:23 on a 302 involuntary commitment for erratic behavior, sam and homicidal ideation. He had just been discharged from the [facility] on 11/12/2018 after a 5-day hospitalization. He is on a 303 involuntary commitment as of 11/14/2018 Chief Complaint "I feel good..dis not feel like needed this admission". Review of Systems Sleep Information Total Hours of Sleep: 4.75 Sleep Comments: Freda had vistaril 50 mg as a sleep aid. He has been up in the day room since 0430. Meal Information Percent Meal Consumed - Breakfast: 100 Percent Meal Consumed - Lunch: 100 Percent Meal Consumed - Dinner: 100 Subjective Subjective Patient was seen & assessed and interval progress reviewed with nursing. Pt felt prn med (vistaril) helped him fall back asleep last night. staff reported only 4 3/4 hours of sleep during night shit. pt denied racing thoughts and states at normal now for him. Pt insight seems limited though and he is with decreased latency of speech and overly spontaneous in his speech with mild pressure to his speech. He shared how been 2 years since drinking alcohol, has h/o snuff usage and can at times consider using it again but feels he is aiming to not use it. He denied any replacement or medication related interventions for quitting snuff. HE feels ready to quit and thinks it will be easy for him. He denied SI or HI, denied depressive mood. He feels he is likely to be discharged on Sunday. He looks for to the intake process for the [facility] pillowcase sewer. He denied feeling rather restless and that he just walks a lot which is normal for him. he is up for taking Abilify po for the 2 weeks following the injection of maintena form of Abilify. Physical Exam Psychiatric Orientation: alert, oriented x 3 and cooperative (And pleasant) Apperance: appropriately dressed, appropriately groomed and appeared stated age Eye Contact: good eye contact Motor Behavior: steady gait and station, no abnormal motor movements and + psychomotor agitation (Mildly hyperactive, in constant motion, pacing around his room) Speech: + pressured speech Affect: euthymic affect Mood: no depressed mood and no anxious mood Thought Process: goal directed thought process and clear/coherent thought process Thought Content: reality based without delusions Suicidal Thoughts: denies suicidal thoughts Homicidal Thoughts: denies homicidal thoughts Hallucinations: no auditory hallucinations, no visual hallucinations, no tactile hallucinations and no gustatory hallucinations Cognition: recent memory grossly intact, attention grossly intact and language grossly intact; + remote memory not intact Estimated Intelligence: average estimated intelligence and consistent with education level Insight: + limited insight Judgement: + fair judgement Vital Signs (Past 24 Hours) Last Vital Signs Temp 36.2 C L 11/23/18 06:00 Pulse 94 H 11/23/18 06:00 Resp 20 11/23/18 06:00 BP 88/60 L 11/23/18 06:00 Pulse Ox 96 11/13/18 05:55 Results & Data Current Inpatient Medications Current Inpatient Medications: Current Inpatient Medications Acetaminophen (Tylenol) 650 mg PO Q4H PRN PRN Reason: Headache or Minor Fever Stop: 12/13/18 05:22 Last Admin: 11/21/18 01:20 Dose: 650 mg Documented by: Al Hydrox/Mg Hydrox/Simethicone (Maalox) 30 ml PO Q4H PRN PRN Reason: GI Upset Stop: 12/13/18 05:22 Aripiprazole (Abilify) 15 mg PO QAM [facility] Stop: 12/22/18 08:59 Last Admin: 11/23/18 08:06 Dose: 15 mg Documented by: Divalproex Sodium (Depakote Extended Release) 500 mg PO QAM [facility] Stop: 12/14/18 08:59 Last Admin: 11/23/18 08:07 Dose: 500 mg Documented by: Divalproex Sodium (Depakote Extended Release) 1,500 mg PO HS [facility] Stop: 12/19/18 21:59 Last Admin: 11/22/18 21:07 Dose: 1,500 mg Documented by: Haloperidol (Haldol) 10 mg PO Q4H PRN PRN Reason: psychosis Stop: 12/13/18 09:11 Haloperidol Lactate (Haldol) 10 mg IM Q4H PRN PRN Reason: psychosis Stop: 12/13/18 09:11 Haloperidol Lactate (Haldol) 10 mg IM BID PRN PRN Reason: refusal of PO meds Stop: 12/14/18 11:39 Hydroxyzine HCl (Vistaril) 50 mg PO HSZ PRN PRN Reason: Insomnia Stop: 12/13/18 05:22 Last Admin: 11/22/18 21:23 Dose: 50 mg Documented by: Hydroxyzine HCl (Vistaril) 25 mg PO Q4H PRN PRN Reason: Anxiety Stop: 12/13/18 05:22 Lorazepam (Ativan) 1 mg PO Q4H PRN PRN Reason: psychosis or agitation Stop: 12/13/18 09:12 Lorazepam (Ativan) 1 mg IM Q4H PRN PRN Reason: psychosis or agitation Stop: 12/13/18 09:12 Magnesium Hydroxide (Milk Of Magnesia) 30 ml PO DAILY PRN PRN Reason: Heartburn Stop: 12/13/18 05:22 Nicotine (Nicoderm Cq) 14 mg TD QAM [facility] Stop: 12/13/18 08:59 Last Admin: 11/23/18 08:07 Dose: Not Given Documented by: Nicotine Polacrilex (Nicorette 2mg) 1 piece MT UD PRN PRN Reason: Nicotine Withdrawal Stop: 12/13/18 05:22 Sodium Chloride (Mayo Nasal) 1 - 2 sprays NA PRN PRN PRN Reason: Nasal Dryness/Congestion Stop: 12/13/18 05:22 Post Discharge Appointments Primary Care Physician Name Of Family Doctor: Dr. Escalona Therapist Name of Therapist: EDIL Rinaldi [facility] Therapist's Date of Therapist Appointment: 11/29/18 Time of Therapist Appointment: 10:30am Care Trainer Name [facility] Care [facility] CPT Code CPT Code 74947
[2018-11-24] MEDS: ARIPiprazole 5 MG TAB PO SCH (08:29)
[2018-11-24] MEDS: DIVALPROEX EXTENDED RELEASE 500 MG TAB PO SCH ×2 (08:30→21:13)
[2018-11-24] MEDS: NICOTINE 14 MG/24 HR PATCH TD SCH (08:30)
[2018-11-24] MEDS: LOPERAMIDE HCL 2 MG CAP PO PRN ×2 (13:42→14:42)
--- NOTE | 2018-11-24 18:05 | Psychiatric Progress Note ---
Date of Service November 24, 2018 Impression / Recommendations Impression 58-year-old single homeless male with a history of bipolar disorder, polysubstance abuse with severe alcohol use disorder and a history of alcohol withdrawal, cannabis abuse, and recent methamphetamine and cocaine abuse, and multiple recent contacts due to manic and psychotic symptoms and erratic behavior, who was discharged from the [facility] 11/12/2018 after a 5-day involuntary psychiatric hospitalization for psychotic sam, and re-presented to the ER within 24 hours of discharge due to ongoing psychosis, sam, erratic and threatening behavior. Patient received injection of Abilify Maintena on 11/20/2018, next dose due for 12/18/2018. Patient admits to some boredom and restlessness due to his prolonged stay, but clear presence of akathisia is uncertain. Nonetheless, we will reduce his oral dose of aripiprazole to 15 mg daily as this may be beneficial for his restlessness. Patient's valproic acid trough level on 11/18/2018 was 55. He was agreeable to titration of valproic acid to 500 mg every morning and 1500 mg nightly. Repeat valproic acid level is ordered for 11/24/2018. His manic and psychotic symptoms are improving, and we are working on discharge planning. He has a long history of noncompliance and is unlikely to be adherent with psychiatric medications or treatment recommendations upon discharge, so we have started the long-acting injectable antipsychotic, and will recommend an outpatient commitment. He is being referred for various services in the community, including case management, [facility] the [facility], a [facility]ee, therapy and psychiatric care. Today, from the perspective of not having evaluated the patient since last Sunday I am able to notice significant improvements. Although his speech remained somewhat pressured, he is easily interruptible and is able to listen fairly assiduously to what is being said to him, and he is also able to process it and respond appropriatelywhereas this time last week he was only occasionally able to listen to what was being said to him and respond to it before he moved onto an entirely unrelated subject, or had a clang association. The patient's mood and thought content both remain expansive. As noted above, he is asserting that although he has no service connected disability from his years in the [employer] a VA vaccine customer representative has assured him that he has "no money worries" and that the VA will be "paying for helping with" his rent, his cable bill, and his food bill. (He also reportedly told staff that the VA has promised to help him purchase a car.) He tells us that he would like to be able to get his psychiatric treatment through the [facility] upon discharge, but was told that this would require him to travel to [place] from [place], and he does not know if the [place] offers transportationand he does not wish to relocate to [place]. The patient is acknowledging his improvement, and attributes that, at least in part, to the addition of aripiprazole. Specifically, he reports that it has allowed him to be more calm, think more clearly, and to process data in a more organized way. The patient also reports that he feels that the individual, group, and activity therapies that he has participated in on the unit have been very helpful, not only to him personally, but because it allows him to have a sense of purpose because he feels that he has been able to help some of the younger patients by providing them with "advice based on experience." Pt reports comfort with binh belle with aim to have abilify po medication for the first 14 days after this first injection given on 11/20. Dose lowered from 20mg to 15mg over concern of akathasia at 20mg. depakote level now 64. (1) Bipolar 1 disorder: 11/13 -current episode manic, severe, with psychosis. -Continue involuntary hospitalization, and petition for a 303 involuntary commitment given the likely need for long-term inpatient treatment given pattern of instability, severe symptoms, inability to function or provide for his own basic needs including housing and medical treatment, and risk of harm to others as evidenced by threats to kill people at the hotel the day prior to presentation, threats to hospital staff in the ER, and violent behavior. -Continue risperidone and increase to 2 mg every morning and 3 mg nightly. Order fasting glucose and lipid profile for monitoring on an atypical antipsychotic. -Continue Depakote and increase to 500 mg every morning and 1000 mg nightly, and check a trough level in 5 days (ordered for 11/18/2018). -Haloperidol 10 mg p.o./IM and Lorazepam 1 mg p.o./IM every 4 hours as needed psychosis or agitation. - Patient has had 5 head CTs and one brain MRI since 06/2018; no acute abnormalities, but notable for patchy white matter hypodensities (moderate subcortical and periventricular microangiopathic disease) and atrophy. TSH has been checked several times in the last month alone, and is within normal limits. CMP notable for elevated AST and ALT, which has been consistent for at least the past year, and is actually improved somewhat since December 2017. UA is normal with no signs of infection, and although he has had multiple positive drug scre ens in the past month, his drug screen on presentation overnight was negative. Hepatitis A IgM and antibody, hepatitis B antigen and IgM antibody, and hepatitis C antibody were nonreactive in 10/2018. RPR was nonreactive in 12/2017. No identified organic cause of his mood and psychotic symptoms, and past history of mental illness is not known. Most appropriate diagnoses based on available information is bipolar disorder type I and polysubstance abuse. -File for 303 involuntary commitment with hearing tomorrow. Consider the need for long-term inpatient treatment at the [facility] versus involuntary outpatient commitment. 11/14 -303 commitment granted -Patient has intermittently refused medications. He has been seen by 2 physicians, both of whom recommend medications over objection. Will order Haldol 10 mg IM backup for refusal of p.o. medications. -Continue risperidone and Depakote as above. Fasting lipid profile and glucose checked today for monitoring on an atypical antipsychotic and are within normal limits. -Attempt to contact his sister and involve her in treatment. He has mentioned multiple girlfriends, unclear if this is delusional. We will continue to explore any other supports. His outpatient mattress spring encaser through his insurance company has been informed of his admission, and hopefully can assist in exploring housing options. 11/15 -Today, the patient expresses willingness to adhere with medications as prescribed. Although he lacks substantial insight into his illness, he agrees that he will consent to a trial of aripiprazole 10 mg daily, with eventual goal of cross titrating aripiprazole and risperidone, while continuing valproic acid. -The patient remains floridly psychotic and continues to show marked symptoms of sam, including pressured speech, flight of ideas, increased energy, motoric hyperactivity, expansive mood, elated mood, and delusional grandiosity. -The patient gave us permission to speak with his sister. Information obtained is that he does not have a current girlfriend in [place], but had one perhaps 30 years ago. -Aripiprazole 10 mg daily, with a starting dose today, has been ordered. -Begin aripiprazole cross titration with risperidone, possibly beginning tomorrow, as tolerated. -Consider substituting Abilify Maintena, depending on response to oral aripiprazole. 11/16 -Continue aripiprazole 10 mg daily, and reduce risperidone to 2 mg twice daily. Continue to cross titration, and agree with Maintena if aripiprazole is effective. -Increase aripiprazole to 15 mg daily for tomorrow, and reduce risperidone to 2 mg at bedtime. We will contact outpatient mattress spring encaser tomorrow for assistance in housing and referring for outpatient treatment. He apparently needs to get a new mattress spring encaser within [facility], and will also need outpatient care with a psychiatrist and therapist, as well as a 304 outpatient commitment. 11/18 - Aripiprazole titrated to 20mg daily starting tomorrow - prior authorization sent for coverage of Abilify Maintena, which patient is agreeable to starting - Risperidone tapered to 1mg HS for this evening; continue cross-taper - will require 2-weeks of oral aripiprazole following Maintena injection - Depakote level on lower end of therapeutic range at 55; consider further titration - held off today due to adjustment in aripiprazole dosing - Pt has made calls to explore housing options on discharge - Continue to coordinate appropriate aftercare, will likely need a 304 outpatient commitment to improve compliance 11/19 - Continue aripiprazole 20mg qAM - awaiting PA on Abilify Maintena, patient remains agreeable to injection - Depakote increased to 500mg qAM and 1500mg qHS - speech remains rapid and pressured, grandiose delusions improving but persist; will order repeat depakote level for 11/24 - Will discontinue risperidone at this time - Attempting to coordinate appropriate discharge plan, patient assisting 11/20 -Patient continues to improve, and has been cooperative with treatment. We reviewed the risks of the Maintena injection, he is agreeable to receiving it today, and will continue oral aripiprazole 20 mg daily for 2 weeks before discontinuing. His next injection will be due 12/18/2018. -Met with staff from the [facility] yesterday who will help determine what services he is eligible for. Refer to the base service unit for a blended mattress spring encaser. Continue to coordinate with mattress spring encaser through his insurance. 11/21 - Received Abilify Maintena injection on 11/20 - next injection due 12/18/18 - Will decrease oral dose of Abilify to 15mg daily, as may improve feelings of restlessness - unclear if true akathisia - Continue to solidify housing options and outpatient supports who will be assisting patient after discharge - Meeting with [facility] mattress spring encaser, Sayra Iverson, is scheduled for Sunday. 11/22 -The patient continues to tolerate Abilify maintain a well. He notes mild sedation, but describes this as "a good thing," and notes that he had previously been "too hyper." -We are monitoring for akathisia. No cogwheel rigidity is in evidence on examination. -Given the patient's recent history of rapid decompensation in the community, we are placing an emphasis on securing wraparound services in the stable living in, with adequate psychiatric aftercare services prior to discharge. 11/23 - continue medications unchanged. -expecting intake with [facility] mattress spring encaser on 11/25 11/24 - depakote level 64, maintained meds unchanged, aim for abilify oral tablet to continue daily till 2 weeks after injection on 11/20 (2) Homicidal ideation: 11/13 -medically necessary private room for safety. -Homicide checks. -PO and IM medications ordered as above for agitation/aggressive behavior. 11/15 -We are maintaining a medically necessary private room. -The patient tells us that he is having no thoughts of harming other people, but he remains floridly manic. 11/22 -The patient has no homicidal thoughts and this problem is now resolved. (3) Seizure: 11/13 -patient has reported a history of seizures after a head injury years ago, but this has not been confirmed. At the time of his 11/08/2018 hospitalization, he reported being prescribed Keppra, but neurology records indicated concern that it may increase his emotional lability, so he was switched to Depakote for both seizure control and mood stabilization. Previous neurology consultations reviewed; they saw him in 06/2018 and 10/2018. At the time of the most recent consultation, the patient reported noncompliance with Keppra as he felt it destabilized mood, so gabapentin 300 mg 3 times daily was recommended. His EEG was normal at that time, there was no known history of seizure disorder, and they suspected any seizure activity was due to alcohol withdrawal. No seizure activity observed during his U admissions. Continue Depakote, and increase as above. 11/22 -now that the patient has become more organized, he is better able to describe what he refers to as "seizures." As described by the patient, he reports a feeling of lightheadedness that is sometimes succeeded by a "blinding, throbbing headache" that involves his entire head from the forehead to his occipital region. He reports associated abdominal pain, nausea, and photophobia, and he notes that these symptoms, when they occur, tend to last "only a matter of minutes" before they improve and then resolve. He may or may not lose consciousness when this happens. He notes that he has sustained injuries from feeling "lightheaded" when the seizures began, but he says that he does not believe that he exhibits typical clonic tonic movements, nor does he lose control of bowel or bladder. The patient has a history of a number of head injuries that predated the onset of what he is referring to as "seizures." I believe that in the differential diagnosis should be the possibility of the patient is having a typical migraine headaches. In any event, he reports that he has had none since his admission to the unit several weeks ago. (4) Cannabis use disorder, mild, abuse: 11/13 -long-standing history of substance abuse, including alcohol, cannabis, methamphetamine, and cocaine; avoid use of controlled substances especially outside of the hospital due to the high risk of abuse/misuse/negative outcomes. -UDS was positive for THC on admission 11/08/2018, but drug screen is negative on this admission. Nevertheless, once his mental status improves, he will require ongoing psychoeducation regarding the risks of continued substance abuse, as he is clearly decompensated over the past month in the context of heavy drug use. -Will refer for outpatient mental health and substance abuse treatment prior to discharge. (5) Alcohol abuse: 11/13 -patient reports being sober for 2 years, although information in the medical record contradicts this. 10/20/2018 he had a blood alcohol level of 267.4 in the ER, and UDS was positive for THC. 10/18/2018 drug screen was positive for methamphetamine (confirmatory result positive with a level of 1020) and THC as well as a BAL of 175.3. 10/15/2018 UDS was positive for cocaine and methamphetamine, and 06/27/2018 BAL was 199. He is a poor/unreliable historian and we have not been able to obtain collateral from friends or family. -He is not at risk for withdrawal currently, as he was in the hospital for 5 days and was discharged for less than 24 hours prior to being readmitted, and drug screen was negative in the ER on this presentation. 11/20 - Brief intervention was offered and accepted. Intervention was greater than 5 min in length. Brief interventions include: 1. Assess Readiness to Quit, 2. Advise: Help Patient to Reduce or Abstain from Alcohol, 3. Agree: Set Specific, Feasible Goals, 4. Assist: Anticipate barriers, Problem-Solving Solutions. Social work to 5. Arrange: Referrals to appropriate treatment. Summary of intervention: The patient is in contemplation stage with regards to transtheoretical model of change. The patient is advised to abstain from drugs and alcohol due to depressant effects and risk of interactions with prescription medications. The patient agreed to abstain, and will be provided with recovery materials to continue to education self on how to cope with their condition without drinking. He claims that he has been sober for 2 years, but has had multiple hospitalizations recently with high blood alcohol levels and drug use as above. Continue to support sobriety and assisting with coping techniques. 11/22 -the patient has stopped insisting that he has been sober "for 2 years," and acknowledges that, in fact, he has deliberately consumed alcohol and the intercurrent period. He had some difficulty identifying alcohol use triggers, but was eventually able to say "I guess when I get bored or frustrated." And today, he was able to at least voice recognition that the apartment that he plans to move into following discharge is located near several establishments that cell alcoholic beverages, and that this will present a temptation. He knows, "I guess with alcohol there is always a temptation, but I realize that I tend to get myself in a lot of trouble when I drink and I am definitely not going to." I suggested participation in Alcoholics Anonymous, and he said that he would follow that advice, and that he knows where there are AA meetings in [place]. (6) Nicotine addiction: 11/13 -offer nicotine patch and gum for cravings. Offer smoking cessation education. 11/22 -the patient tells us that he smokes "about 1 cigar a day," and does not smoke cigarettes. He also tells us that he is not currently craving tobacco products, but also acknowledges that he "misses chewing tobacco," and acknowledges that he may be apt to return to the use of chewing tobacco. I reminded that this former tobacco use is also quite dangerous and, among other things, can lead to fatal oral cancers. The patient indicated understanding. 11/23 - pt indicates plan for him is not resume chewing tobacco and denied need for any medical related assistance in not using chew Inventory Assets Strengths: Has insurance/access to care, premorbid good functioning, Needs: Prolonged hospitalization for symptom stabilization, sobriety from substances, robust outpatient care Risk Factors Assessment Male: Yes : Yes Do You Have Access To A Gun?: No Health Problems: Yes Mental Health Diagnoses: Yes Substance Use Disorders: Yes Previous Attempt: No Previous Psychiatric Hospitalization: Yes Hopelessness: No Smoker: Yes Protective Factors Assessment Orthodoxy Beliefs: Yes : No Responsible for Young Children: No Employed: No (disabled) Stable Relationships: No Supportive Family: No Good Rapport with Provider: No Absence of Any Risk Factors Above: No Interval History Identifying Information FREDA MO is a 58-year-old M who is currently homeless, has a history of bipolar disorder and substance abuse, and was admitted on 11/13/18 05:23 on a 302 involuntary commitment for erratic behavior, sam and homicidal ideation. He had just been discharged from the [facility] on 11/12/2018 after a 5-day hospitalization. He is on a 303 involuntary commitment as of 11/14/2018 Chief Complaint "having diarrhea but otherwise doing well ". Review of Systems Sleep Information Total Hours of Sleep: 4.25 Sleep Comments: received prn vistaril for sleep aid. up to the bathroom a few times, checked the time of day a few times. awake for the day since just before 0600 Meal Information Percent Meal Consumed - Breakfast: 100 Percent Meal Consumed - Lunch: 100 Percent Meal Consumed - Dinner: 100 Subjective Subjective Patient was seen & assessed and interval progress reviewed with nursing, diarrhea (frequent loose stool) yesterday and today. pt requested med to take to try to alleivate this. denied akathasia, [facility], more setteld today Depakote level 64, staff noted further improvement in pt, case management intake process tomorrow, pt hoping for d/c tomorrow, aims to stay at a hotel till able to do be in his appartment, aims to continue oral abilify tablet till 2 weeks till after the recent injection dose and continue obtain injections. Physical Exam Psychiatric Orientation: alert, oriented x 3 and cooperative (And pleasant) Apperance: appropriately dressed, appropriately groomed, + disheveled and appeared stated age Eye Contact: good eye contact Motor Behavior: steady gait and station and no abnormal motor movements Speech: normal rate/rhythm/volume of speech (Pressured speech is gradually improving, it remains rapid at times) with only minimum pressure to speech at times Affect: euthymic affect Mood: no depressed mood, no anxious mood and no angry mood Thought Process: goal directed thought process, linear/logical thought process (He occasionally becomes somewhat tangential, but tends to quickly rejoin his original thought.) and clear/coherent thought process Thought Content: reality based without delusions Suicidal Thoughts: denies suicidal thoughts Homicidal Thoughts: denies homicidal thoughts Hallucinations: no auditory hallucinations, no visual hallucinations, no tactile hallucinations and no gustatory hallucinations Cognition: recent memory grossly intact, attention grossly intact and language grossly intact; + remote memory not intact Estimated Intelligence: average estimated intelligence and consistent with education level Insight: + limited insight Judgement: + fair judgement Vital Signs (Past 24 Hours) Last Vital Signs Temp 36.5 C 11/24/18 07:08 Pulse 89 11/24/18 07:09 Resp 18 11/24/18 07:08 BP 100/67 11/24/18 07:09 Pulse Ox 96 11/13/18 05:55 Results & Data Laboratory Results Laboratory Results - last 24 hr 11/24/18 06:46 Valproic Acid 64 Current Inpatient Medications Current Inpatient Medications: Current Inpatient Medications Acetaminophen (Tylenol) 650 mg PO Q4H PRN PRN Reason: Headache or Minor Fever Stop: 12/13/18 05:22 Last Admin: 11/21/18 01:20 Dose: 650 mg Documented by: Al Hydrox/Mg Hydrox/Simethicone (Maalox) 30 ml PO Q4H PRN PRN Reason: GI Upset Stop: 12/13/18 05:22 Aripiprazole (Abilify) 15 mg PO QAM [facility] Stop: 12/22/18 08:59 Last Admin: 11/24/18 08:29 Dose: 15 mg Documented by: Divalproex Sodium (Depakote Extended Release) 500 mg PO QAM KAYLAN Stop: 12/14/18 08:59 Last Admin: 11/24/18 08:30 Dose: 500 mg Documented by: Divalproex Sodium (Depakote Extended Release) 1,500 mg PO HS KAYLAN Stop: 12/19/18 21:59 Last Admin: 11/23/18 21:38 Dose: 1,500 mg Documented by: Haloperidol (Haldol) 10 mg PO Q4H PRN PRN Reason: psychosis Stop: 12/13/18 09:11 Haloperidol Lactate (Haldol) 10 mg IM Q4H PRN PRN Reason: psychosis Stop: 12/13/18 09:11 Haloperidol Lactate (Haldol) 10 mg IM BID PRN PRN Reason: refusal of PO meds Stop: 12/14/18 11:39 Hydroxyzine HCl (Vistaril) 50 mg PO HSZ PRN PRN Reason: Insomnia Stop: 12/13/18 05:22 Last Admin: 11/23/18 21:39 Dose: 50 mg Documented by: Hydroxyzine HCl (Vistaril) 25 mg PO Q4H PRN PRN Reason: Anxiety Stop: 12/13/18 05:22 Loperamide HCl (Imodium) 2 mg PO TID PRN PRN Reason: Diarrhea Stop: 12/24/18 10:15 Last Admin: 11/24/18 14:42 Dose: 2 mg Documented by: Lorazepam (Ativan) 1 mg PO Q4H PRN PRN Reason: psychosis or agitation Stop: 12/13/18 09:12 Lorazepam (Ativan) 1 mg IM Q4H PRN PRN Reason: psychosis or agitation Stop: 12/13/18 09:12 Magnesium Hydroxide (Milk Of Magnesia) 30 ml PO DAILY PRN PRN Reason: Heartburn Stop: 12/13/18 05:22 Nicotine (Nicoderm Cq) [facility] [place] Stop: 12/13/18 08:59 Last Admin: 11/24/18 08:30 Dose: Not Given Documented by: Nicotine Polacrilex (Nicorette 2mg) 1 piece MT UD PRN PRN Reason: Nicotine Withdrawal Stop: 12/13/18 05:22 Sodium Chloride ([place] Nasal) 1 - 2 sprays NA PRN PRN PRN Reason: Nasal Dryness/Congestion Stop: 12/13/18 05:22 Post Discharge Appointments Primary Care Physician Name Of Family Doctor: Dr. Escalona Therapist Name of Therapist: EDIL Rinaldi [facility] Therapist's Date of Therapist Appointment: 11/29/18 Time of Therapist Appointment: 10:30am Haulage Engine Operator Name of Haulage Engine Operator: Mónica at [facility] [employer]. CPT Code CPT Code 24907
[2018-11-25] MEDS: ARIPiprazole 5 MG TAB PO SCH (07:57)
[2018-11-25] MEDS: DIVALPROEX EXTENDED RELEASE 500 MG TAB PO SCH ×2 (07:57→21:03)
[2018-11-25] MEDS: NICOTINE 14 MG/24 HR PATCH TD SCH (07:58)
--- NOTE | 2018-11-25 10:42 | Psychiatric Progress Note ---
Date of Service November 25, 2018 Impression / Recommendations Impression 58-year-old single homeless male with a history of bipolar disorder, polysubstance abuse with severe alcohol use disorder and a history of alcohol withdrawal, cannabis abuse, and recent methamphetamine and cocaine abuse, and multiple recent contacts due to manic and psychotic symptoms and erratic behavior, who was discharged from the [facility] 11/12/2018 after a 5-day involuntary psychiatric hospitalization for psychotic sam, and re-presented to the ER within 24 hours of discharge due to ongoing psychosis, sam, erratic and threatening behavior. Patient's manic and psychotic symptoms are improving in the context of medication management. Patient received injection of Abilify Maintena on 11/20/2018, with oral aripiprazole to bridge until IM effectiveness. Oral dose was reduced to 15mg daily for patient restlessness in the context of a prolonged stay vs possible akathisia, with seemingly improved symptoms. Titration of valproic acid to 500mg qAM and 1500mg qHS, with acceptable trough level. Discharge planning underway. Given long history of noncompliance, there remains a high risk of non-adherence with psychiatric medications or treatment recommendations upon discharge. Thus in addition to long-acting injectable antipsychotic, will recommend an outpatient commitment. Additionally, patient is being referred for various services in the community, including case management, [facility] the [facility], a [facility] payee, therapy and psychiatric care. Patient plans were detailed in depth in meeting today with patient, psychiatrist, KOSTA, DANTE. Team is in agreement that patient has shown improvement since admission, but multiple services will likely need to be in place, and interplay, in order to reduce chances of non-compliance and decompensation from a psychiatric and patient wellness standpoint. Patient still somewhat grandiose and with pressured speech, but appreciable resolution of grandeur delusions, homicidal ideation, and agitation and mood. Although his personal insight and judgement remain poor, he is more easily redirected and is able to listen to information and concerns, demonstrate comprehension, and respond appropriately. He repeatedly perseverates on being told he was to be discharged today and concerns about activating his new debit card to pay off stuff, but then maintains a few more days is no big deal, and that he has no financial concerns. He is agreeable to allow for external management of his income to pay for necessary bills, as well as VA services that will aid him further financially. He believes housing is set up starting from December 09 onward, as long as he can pay first month rent and deposit (for which he needs access to his bank card) and in the interim, is planning to stay in [facility] with friends or in a motel. When pointed out that there is concern that in returning to [facility], the patient may resume activities of substance use, patient admits he is worried about this too. He is agreeable to allow CM to look for interim housing in [email or web address]. His means of transport is taxi as needed, or "I'll walk if I have to" [if the taxi ride is too expensive]. Patient is on the fence about relocating to [place] for psychiatric treatment through the [facility] upon discharge, and living with other veterans, at this time, having limited interest in this option. The patient is acknowledging improvement on meds, although he claims compliance without even knowing what he is taking since he "just does what he is told." He notes involvement with group and individual therapy, which is helpful, although not today, because he was "pumped up to leave this place, and now [he's] pissed off." By the end of the meeting patient was agreeable to continued inpatient management for symptoms, plans for implementations of multiple services as outpatient, and a hearing later this week to help optimize his chances of avoiding repeat admission based on worsening symptoms. He had no further questions or concerns. Discharge planning for robust outpatient management underway, including hearing for outpatient 304 scheduled for 11/28/18. Until then, would recommend continued inpatient care to optimize patient symptoms and minimize risk of patient decompensation and self harm. Patient management performed alongside psychiatrist, Dr. Valero, who was present for the entire duration of assessment and evaluation, as well as care decision- making. (1) Bipolar 1 disorder: 11/13 -current episode manic, severe, with psychosis. -Continue involuntary hospitalization, and petition for a 303 involuntary commitment given the likely need for long-term inpatient treatment given pattern of instability, severe symptoms, inability to function or provide for his own basic needs including housing and medical treatment, and risk of harm to others as evidenced by threats to kill people at the hotel the day prior to presentation, threats to hospital staff in the ER, and violent behavior. -Continue risperidone and increase to 2 mg every morning and 3 mg nightly. Order fasting glucose and lipid profile for monitoring on an atypical antipsychotic. -Continue Depakote and increase to 500 mg every morning and 1000 mg nightly, and check a trough level in 5 days (ordered for 11/18/2018). -Haloperidol 10 mg p.o./IM and Lorazepam 1 mg p.o./IM every 4 hours as needed psychosis or agitation. - Patient has had 5 head CTs and one brain MRI since 06/2018; no acute abnormalities, but notable for patchy white matter hypodensities (moderate subcortical and periventricular microangiopathic disease) and atrophy. TSH has been checked several times in the last month alone, and is within normal limits. CMP notable for elevated AST and ALT, which has been consistent for at least the past year, and is actually improved somewhat since December 2017. UA is normal with no signs of infection, and although he has had multiple positive drug screens in the past month, his drug screen on presentation overnight was negative. Hepatitis A IgM and antibody, hepatitis B antigen and IgM antibody, and hepatitis C antibody were nonreactive in 10/2018. RPR was nonreactive in 12/2017. No identified organic cause of his mood and psychotic symptoms, and [facility] history of mental illness is not known. Most appropriate diagnoses based on available information is bipolar disorder type I and polysubstance abuse. -File for 303 involuntary commitment with hearing tomorrow. Consider the need for long-term inpatient treatment at the [facility] versus involuntary outpatient commitment. 11/14 -303 commitment granted -Patient has intermittently refused medications. He has been seen by 2 physicians, both of whom recommend medications over objection. Will order Haldol 10 mg IM backup for refusal of p.o. medications. -Continue risperidone and Depakote as above. Fasting lipid profile and glucose checked today for monitoring on an atypical antipsychotic and are within normal limits. -Attempt to contact his sister and involve her in treatment. He has mentioned multiple girlfriends, unclear if this is delusional. We will continue to explore any other supports. His outpatient case coordinator through his insurance company has been informed of his admission, and hopefully can assist in exploring housing options. 11/15 -Today, the patient expresses willingness to adhere with medications as prescribed. Although he lacks substantial insight into his illness, he agrees that he will consent to a trial of aripiprazole 10 mg daily, with eventual goal of cross titrating aripiprazole and risperidone, while continuing valproic acid. -The patient remains floridly psychotic and continues to show marked symptoms of sam, including pressured speech, flight of ideas, increased energy, motoric hyperactivity, expansive mood, elated mood, and delusional grandiosity. -The patient gave us permission to speak with his sister. Information obtained is that he does not have a current girlfriend in [place], but had one perhaps 30 years ago. -Aripiprazole 10 mg daily, with a starting dose today, has been ordered. -Begin aripiprazole cross titration with risperidone, possibly beginning tomorrow, as tolerated. -Consider substituting Abilify Maintena, depending on response to oral aripiprazole. 11/16 -Continue aripiprazole 10 mg daily, and reduce risperidone to 2 mg twice daily. Continue to cross titration, and agree with Maintena if aripiprazole is effe ctive. -Increase aripiprazole to 15 mg daily for tomorrow, and reduce risperidone to 2 mg at bedtime. We will contact outpatient case coordinator tomorrow for assistance in housing and referring for outpatient treatment. He apparently needs to get a new case coordinator within [facility], and will also need outpatient care with a psychiatrist and therapist, as well as a 304 outpatient commitment. 11/18 - Aripiprazole titrated to 20mg daily starting tomorrow - prior authorization sent for coverage of Abilify Maintena, which patient is agreeable to starting - Risperidone tapered to 1mg HS for this evening; continue cross-taper - will require 2-weeks of oral aripiprazole following Maintena injection - Depakote level on lower end of therapeutic range at 55; consider further titration - held off today due to adjustment in aripiprazole dosing - Pt has made calls to explore housing options on discharge - Continue to coordinate appropriate aftercare, will likely need a 304 outpatient commitment to improve compliance 11/19 - Continue aripiprazole 20mg qAM - awaiting PA on Abilify Maintena, patient remains agreeable to injection - Depakote increased to 500mg qAM and 1500mg qHS - speech remains rapid and pressured, grandiose delusions improving but persist; will order repeat depakote level for 11/24 - Will discontinue risperidone at this time - Attempting to coordinate appropriate discharge plan, patient assisting 11/20 -Patient continues to improve, and has been cooperative with treatment. We reviewed the risks of the Maintena injection, he is agreeable to receiving it t rohan, and will continue oral aripiprazole 20 mg daily for 2 weeks before discontinuing. His next injection will be due 12/18/2018. -Met with staff from the [facility] yesterday who will help determine what services he is eligible for. [facility] to [facility] for a blended case coordinator. Continue to coordinate with case coordinator through his insurance. 11/21 - Received Abilify Maintena injection on 11/20 - next injection due 12/18/18 - Will decrease oral dose of Abilify to 15mg daily, as may improve feelings of restlessness - unclear if true akathisia - Continue to solidify housing options and outpatient supports who will be assisting patient after discharge - Meeting with [facility] case coordinator, Sayra Iverson, is scheduled for Sunday. 11/22 -The patient continues to tolerate Abilify maintain a well. He notes mild sedation, but describes this as "a good thing," and notes that he had previously been "too hyper." -We are monitoring for akathisia. No cogwheel rigidity is in evidence on examination. -Given the patient's recent history of rapid decompensation in the community, we are placing an emphasis on securing wraparound services in the stable living in, with adequate psychiatric aftercare services prior to discharge. 11/23 - continue medications unchanged. -expecting [facility] with [facility] case [facility] on 11/25 11/24 - depakote level 64, maintained meds unchanged, aim for abilify oral tablet to continue daily till 2 weeks after injection on 11/20 11/25 - Continue IM aripiprazole q4wks - next dose to be scheduled for 12/18/18 - Will continue bridge of PO aripiprazole for 2 weeks duration - will continue reduced dose of 15mg daily, as patient no longer describing restlessness - Continue divalproex 500mg qAM + 1500mg qHS - First outpatient appointment scheduled, will inform them re: need for LAIA by 12/18 - PRN haloperidol and lorazepam ordered, but patient has not required a dose - PO hydroxyzine use qHS but not seeming required for daytime anxiety/agitation (2) Homicidal ideation: 11/13 -medically necessary private room for safety. -Homicide checks. -PO and IM medications ordered as above for agitation/aggressive behavior. 11/15 -We are maintaining a medically necessary private room. -The patient tells us that he is having no thoughts of harming other people, but he remains floridly manic. 11/22 -The patient has no homicidal thoughts and this problem is now resolved. (3) Seizure: 11/13 -patient has reported a history of seizures after a head injury years ago, but this has not been confirmed. At the time of his 11/08/2018 hospitalization, he reported being prescribed Keppra, but neurology records indicated concern that it may increase his emotional lability, so he was switched to Depakote for both seizure control and mood stabilization. Previous neurology consultations reviewed; they saw him in 06/2018 and 10/2018. At the time of the most recent consultation, the patient reported noncompliance with Keppra as he felt it destabilized mood, so gabapentin 300 mg 3 times daily was recommended. His EEG was normal at that time, there was no known history of seizure disorder, and they suspected any seizure activity was due to alcohol withdrawal. No seizure activity observed during his U admissions. Continue Depakote, and increase as above. 11/22 -now that the patient has become more organized, he is better able to describe what he refers to as "seizures." As described by the patient, he reports a feeling of lightheadedness that is sometimes succeeded by a "blinding, throbbing headache" that involves his entire head from the forehead to his occipital region. He reports associated abdominal pain, nausea, and photophobia, and he notes that these symptoms, when they occur, tend to last "only a matter of minutes" before they improve and then resolve. He may or may not lose consciousness when this happens. He notes that he has sustained injuries from feeling "lightheaded" when the seizures began, but he says that he does not believe that he exhibits typical clonic tonic movements, nor does he lose control of bowel or bladder. The patient has a history of a number of head injuries that predated the onset of what he is referring to as "seizures." I believe that in the differential diagnosis should be the possibility of the patient is having a typical migraine headaches. In any event, he reports that he has had none since his admission to the unit several weeks ago. (4) Cannabis use disorder, mild, abuse: 11/13 -long-standing history of substance abuse, including alcohol, cannabis, methamphetamine, and cocaine; avoid use of controlled substances especially outside of the hospital due to the high risk of abuse/misuse/negative outcomes. -UDS was positive for THC on admission 11/08/2018, but drug screen is negative on this admission. Nevertheless, once his mental status improves, he will require ongoing psychoeducation regarding the risks of continued substance abuse, as he is clearly decompensated over the past month in the context of heavy drug use. -Will refer for outpatient mental health and substance abuse treatment prior to discharge. (5) Alcohol abuse: 11/13 -patient reports being sober for 2 years, although information in the medical record contradicts this. 10/20/2018 he had a blood alcohol level of 267.4 in the ER, and UDS was positive for THC. 10/18/2018 drug screen was positive for methamphetamine (confirmatory result positive with a level of 1020) and THC as well as a BAL of 175.3. 10/15/2018 UDS was positive for cocaine and methamphetamine, and 06/27/2018 BAL was 199. He is a poor/unreliable histo rui and we have not been able to obtain collateral from friends or family. -He is not at risk for withdrawal currently, as he was in the hospital for 5 days and was discharged for less than 24 hours prior to being readmitted, and drug screen was negative in the ER on this presentation. 11/20 - Brief intervention was offered and accepted. Intervention was greater than 5 min in length. Brief interventions include: 1. Assess Readiness to Quit, 2. Advise: Help Patient to Reduce or Abstain from Alcohol, 3. Agree: Set Specific, Feasible Goals, 4. Assist: Anticipate barriers, Problem-Solving Solutions. Social work to 5. Arrange: Referrals to appropriate treatment. Summary of intervention: The patient is in contemplation stage with regards to transtheoretical model of change. The patient is advised to abstain from drugs and alcohol due to depressant effects and risk of interactions with prescription medications. The patient agreed to abstain, and will be provided with recovery materials to continue to education self on how to cope with their condition without drinking. He claims that he has been sober for 2 years, but has had multiple hospitalizations recently with high blood alcohol levels and drug use as above. Continue to support sobriety and assisting with coping techniques. 11/22 -the patient has stopped insisting that he has been sober "for 2 years," and acknowledges that, in fact, he has deliberately consumed alcohol and the intercurrent period. He had some difficulty identifying alcohol use triggers, but was eventually able to say "I guess when I get bored or frustrated." And today, he was able to at least voice recognition that the apartment that he plans to move into following discharge is located near several establishments that cell alcoholic beverages, and that this will present a temptation. He knows, "I guess with alcohol there is always a temptation, but I realize that I tend to get myself in a lot of trouble when I drink and I am definitely not going to." I suggested participation in Alcoholics Anonymous, and he said that he would follow that advice, and that he knows where there are AA meetings in [place]. 11/23 - Patient admits to risk of resuming alcohol use upon return to [facility] given familiarity and re-exposure to people and situations which may have triggered EtOH misuse in the past. Amenable for CM to look into interim housing options in [place] to avoid this potential trigger for abuse. (6) Nicotine addiction: 11/13 -offer nicotine patch and gum for cravings. Offer smoking cessation education. 11/22 -the patient tells us that he smokes "about 1 cigar a day," and does not smoke cigarettes. He also tells us that he is not currently craving tobacco products, but also acknowledges that he "misses chewing tobacco," and acknowledges that he may be apt to return to the use of chewing tobacco. I reminded that this former tobacco use is also quite dangerous and, among other things, can lead to fatal oral cancers. The patient indicated understanding. 11/23 - pt indicates plan for him is not resume chewing tobacco and denied need for any medical related assistance in not using chew Inventory Assets Strengths: Has insurance/access to care, premorbid good functioning, multiple service referrals in place Needs: Prolonged hospitalization for symptom stabilization, sobriety from substances, robust outpatient care Risk Factors Assessment Male: Yes : Yes Do You Have Access To A Gun?: No Health Problems: Yes Mental Health Diagnoses: Yes Substance Use Disorders: Yes Previous Attempt: No Previous Psychiatric Hospitalization: Yes Hopelessness: No Smoker: Yes Protective Factors Assessment Congregational Beliefs: Yes : No Responsible for Young Children: No Employed: No (disabled) Stable Relationships: No Supportive Family: No Good Rapport with Provider: No Absence of Any Risk Factors Above: No Interval History Identifying Information FREDA MO is a 58-year-old M who is currently homeless, has a history of bipolar disorder and substance abuse, and was admitted on 11/13/18 05:23 on a 302 involuntary commitment for erratic behavior, sam and homicidal ideation. He had just been discharged from the [facility] on 11/12/2018 after a 5-day hospitalization. He is on a 303 involuntary commitment as of 11/14/2018 Chief Complaint "I want to go home". Review of Systems Sleep Information Total Hours of Sleep: 6.75 Sleep Comments: pt appeared to sleep 1.25 hrs during evening shift. pt given vistaril per rn. pt q-15 minute checks Meal Information Percent Meal Consumed - Breakfast: 100 Percent Meal Consumed - Lunch: 100 Percent Meal Consumed - Dinner: 100 Subjective Subjective Patient was seen & assessed and interval progress reviewed with the Treatment Team. Noted that patient has been partaking in group therapy with positive contributions and peer interactions. He has been agitated more recently since finding out he is not for discharge this AM, but plans on letting his CM know just how upset he is. He has otherwise been eating and sleeping well. Patient interaction and assessment during meeting with patient along with KOSTA HOWELL x 2, psychiatrist. Patient states he is pissed off about having a few more days in the hospital, but calms down once re-directed by his CM. Patient claims he feels fine, his mood is mostly good except in the context of delayed discharge, but denies any further delusions or SI at this time. In depth discussion with patient regarding plans post discharge reveal patient is mostly concerned about his new debit card in his mail box, which he needs to secure housing starting December. He denies financial concerns otherwise. Interim plans, per patient, involve residing with friends or in a motel in [facility]. Patient agreeable for services to allow external facilitation of payment of his bills, as well as assessment by via for support services. Consent forms signed during meeting. Staff concern about recurrence of previous behaviors upon return to [facility], and patient agrees, and is thus amenable to consider temporary housing options in [place], if CM can arrange. Staff reiterated need for patient to continue therapy and medication, to which patient is agreeable at present. Patient satisfied with outcome of meeting, and had no further questions or concerns. Physical Exam Psychiatric A+Ox3, euthymic affect Orientation: cooperative (initially agitated, but eventually calmer and agreeable) Apperance: appropriately dressed (casually dressed, but appropriate grooming and hygiene) and appeared stated age Eye Contact: good eye contact Motor Behavior: steady gait and station and no abnormal motor movements; no psychomotor agitation Speech: + pressured speech (Intermittent, worsens with agitation) and normal rate/rhythm/volume of speech Affect: euthymic affect Mood: + irritable mood; no depressed mood and no anxious mood Thought Process: goal directed thought process, linear/logical thought process, + looseness of associations and + perseveration (Occasionally perseverates on his mail, but able to rejoin conversation) Thought Content: reality based without delusions (Less focused on delusions of grandeur) and + persecution (feels admission prolonged to use his insurance $,but then states he's jokin); not paranoid Suicidal Thoughts: denies suicidal thoughts Homicidal Thoughts: denies homicidal thoughts Hallucinations: no auditory hallucinations, no visual hallucinations, no tactile hallucinations and no gustatory hallucinations Cognition: recent memory grossly intact, attention grossly intact and language grossly intact; + remote memory not intact Estimated Intelligence: average estimated intelligence and consistent with education level Insight: + limited insight Judgement: + poor judgement Vital Signs (Past 24 Hours) Last Vital Signs Temp 36.3 C L 11/25/18 06:58 Pulse 92 H 11/25/18 06:58 Resp 18 11/25/18 06:58 BP 110/74 11/25/18 06:58 Pulse Ox 96 11/13/18 05:55 Results & Data Current Inpatient Medications Current Inpatient Medications: Current Inpatient Medications Acetaminophen (Tylenol) 650 mg PO Q4H PRN PRN Reason: Headache or Minor Fever Stop: 12/13/18 05:22 Last Admin: 11/21/18 01:20 Dose: 650 mg Documented by: Al Hydrox/Mg Hydrox/Simethicone (Maalox) 30 ml PO Q4H PRN PRN Reason: GI Upset Stop: 12/13/18 05:22 Aripiprazole (Abilify) 15 mg PO QAM KAYLAN Stop: 12/22/18 08:59 Last Admin: 11/25/18 07:57 Dose: 15 mg Documented by: Divalproex Sodium (Depakote Extended Release) 500 mg PO QAM KAYLAN Stop: 12/14/18 08:59 Last Admin: 11/25/18 07:57 Dose: 500 mg Documented by: Divalproex Sodium (Depakote Extended Release) 1,500 mg PO HS KAYLAN Stop: 12/19/18 21:59 Last Admin: 11/24/18 21:13 Dose: 1,500 mg Documented by: Haloperidol (Haldol) 10 mg PO Q4H PRN PRN Reason: psychosis Stop: 12/13/18 09:11 Haloperidol Lactate (Haldol) 10 mg IM Q4H PRN PRN Reason: psychosis Stop: 12/13/18 09:11 Haloperidol Lactate (Haldol) 10 mg IM BID PRN PRN Reason: refusal of PO meds Stop: 12/14/18 11:39 Hydroxyzine HCl (Vistaril) 50 mg PO HSZ PRN PRN Reason: Insomnia Stop: 12/13/18 05:22 Last Admin: 11/24/18 21:14 Dose: 50 mg Documented by: Hydroxyzine HCl (Vistaril) 25 mg PO Q4H PRN PRN Reason: Anxiety Stop: 12/13/18 05:22 Loperamide HCl (Imodium) 2 mg PO TID PRN PRN Reason: Diarrhea Stop: 12/24/18 10:15 Last Admin: 11/24/18 14:42 Dose: 2 mg Documented by: Lorazepam (Ativan) 1 mg PO Q4H PRN PRN Reason: psychosis or agitation Stop: 12/13/18 09:12 Lorazepam (Ativan) 1 mg IM Q4H PRN PRN Reason: psychosis or agitation Stop: 12/13/18 09:12 Magnesium Hydroxide (Milk Of Magnesia) 30 ml PO DAILY PRN PRN Reason: Heartburn Stop: 12/13/18 05:22 Nicotine (Nicoderm Cq) 14 mg TD QAM [facility] Stop: 12/13/18 08:59 Last Admin: 11/25/18 07:58 Dose: Not Given Documented by: Nicotine Polacrilex (Nicorette 2mg) 1 piece MT UD PRN PRN Reason: Nicotine Withdrawal Stop: 12/13/18 05:22 Sodium Chloride ([place] Nasal) 1 - 2 sprays NA PRN PRN PRN Reason: Nasal Dryness/Congestion Stop: 12/13/18 05:22 Post Discharge Appointments Primary Care Physician Name Of Family Doctor: Dr. Escalona Therapist Name of Therapist: EDIL Rinaldi [facility] Therapist's Date of Therapist Appointment: 11/29/18 Time of Therapist Appointment: 10:30am Retail Service Specialist Name of Retail Service Specialist: Mónica lambert [facility]. CPT Code CPT Code 79104 [id number] Resident Activity Tracking Resident Involvement: Resident Care Provided Care Provided: Adult Hospital Medicine
[2018-11-25] MEDS: NICOTINE POLACRILEX 2 MG GUM MT PRN (21:02)
[2018-11-26] MEDS: ARIPiprazole 5 MG TAB PO SCH (07:45)
[2018-11-26] MEDS: NICOTINE POLACRILEX 2 MG GUM MT PRN (07:46)
[2018-11-26] MEDS: DIVALPROEX EXTENDED RELEASE 500 MG TAB PO SCH ×2 (07:46→21:17)
[2018-11-26] MEDS: NICOTINE 14 MG/24 HR PATCH TD SCH (07:47)
--- NOTE | 2018-11-26 13:44 | Psychiatric Progress Note ---
Date of Service November 26, 2018 Impression / Recommendations Impression Patient is reporting improvement in mood, less focused on feelings of persecution related to perceived delay in discharge. Patient has been understanding of need to convert his commitment to an outpatient 304 commitment status, which is currently scheduled to be occurring on 11/28/18. Pt denies any ongoing concerns on his end. As a team, we continue to work with his outpatient supports to develop a concrete aftercare plan that will allow the patient to maintain stability in the community. He remains agreeable to a rep-payee and has been reviewing temporary housing options until he is able to move into his a partment. He continues to tolerate medication regimen. Primary focus of team remains on aftercare and discharge planning, as his history suggests significant decompensation and increase risk of harm to self and others - which will ideally be mitigated to some extent by more thorough planning prior to discharge. (1) Bipolar 1 disorder: 11/13 -current episode manic, severe, with psychosis. -Continue involuntary hospitalization, and petition for a 303 involuntary commitment given the likely need for long-term inpatient treatment given pattern of instability, severe symptoms, inability to function or provide for his own basic needs including housing and medical treatment, and risk of harm to others as evidenced by threats to kill people at the hotel the day prior to presentation, threats to hospital staff in the ER, and violent behavior. -Continue risperidone and increase to 2 mg every morning and 3 mg nightly. Order fasting glucose and lipid profile for monitoring on an atypical antipsychotic. -Continue Depakote and increase to 500 mg every morning and 1000 mg nightly, and check a trough level in 5 days (ordered for 11/18/2018). -Haloperidol 10 mg p.o./IM and Lorazepam 1 mg p.o./IM every 4 hours as needed psychosis or agitation. - Patient has had 5 head CTs and one brain MRI since 06/2018; no acute abnormalities, but notable for patchy white matter hypodensities (moderate subcortical and periventricular microangiopathic disease) and atrophy. TSH has been checked several times in the last month alone, and is within normal limits. CMP notable for elevated AST and ALT, which has been consistent for at least the past year, and is actually improved somewhat since December 2017. UA is normal with no signs of infection, and although he has had multiple positive drug screens in the past month, his drug screen on presentation overnight was negative. Hepatitis A IgM and antibody, hepatitis B antigen and IgM antibody, and hepatitis C antibody were nonreactive in 10/2018. RPR was nonreactive in 12/2017. No identified organic cause of his mood and psychotic symptoms, and past history of mental illness is not known. Most appropriate diagnoses based on available information is bipolar disorder type I and polysubstance abuse. -File for 303 involuntary commitment with hearing tomorrow. Consider the need for long-term inpatient treatment at the [facility] versus involuntary outpatient commitment. 11/14 -303 commitment granted -Patient has intermittently refused medications. He has been seen by 2 physicians, both of whom recommend medications over objection. Will order Haldol 10 mg IM backup for refusal of p.o. medications. -Continue risperidone and Depakote as above. Fasting lipid profile and glucose checked today for monitoring on an atypical antipsychotic and are within normal limits. -Attempt to contact his sister and involve her in treatment. He has mentioned multiple girlfriends, unclear if this is delusional. We will continue to explore any other supports. His outpatient family service caseworker through his insurance company has been informed of his admission, and hopefully can assist in exploring housing options. 11/15 -Today, the patient expresses willingness to adhere with medications as prescribed. Although he lacks substantial insight into his illness, he agrees that he will consent to a trial of aripiprazole 10 mg daily, with eventual goal of cross titrating aripiprazole and risperidone, while continuing valproic acid. -The patient remains floridly psychotic and continues to show marked symptoms of sam, including pressured speech, flight of ideas, increased energy, motoric hyperactivity, expansive mood, elated mood, and delusional grandiosity. -The patient gave us permission to speak with his sister. Information obtained is that he does not have a current girlfriend in [place], but had one perhaps 30 years ago. -Aripiprazole 10 mg daily, with a starting dose today, has been ordered. -Begin aripiprazole cross titration with risperidone, possibly beginning tomorrow, as tolerated. -Consider substituting Abilify Maintena, depending on response to oral aripiprazole. 11/16 -Continue aripiprazole 10 mg daily, and reduce risperidone to 2 mg twice daily. Continue to cross titration, and agree with Maintena if aripiprazole is effective. -Increase aripiprazole to 15 mg daily for tomorrow, and reduce risperidone to 2 mg at bedtime. We will contact outpatient family service caseworker tomorrow for assistance in housing and referring for outpatient treatment. He apparently needs to get a new family service caseworker within [facility], and will also need outpatient care with a psychiatrist and therapist, as well as a 304 outpatient commitment. 11/18 - Aripiprazole titrated to 20mg daily starting tomorrow - prior authorization sent for coverage of Abilify Maintena, which patient is agreeable to starting - Risperidone tapered to 1mg HS for this evening; continue cross-taper - will require 2-weeks of oral aripiprazole following Maintena injection - Depakote level on lower end of therapeutic range at 55; consider further titration - held off today due to adjustment in aripiprazole dosing - Pt has made calls to explore housing options on discharge - Continue to coordinate appropriate aftercare, will likely need a 304 outpatient commitment to improve compliance 11/19 - Continue aripiprazole 20mg qAM - awaiting PA on Abilify Maintena, patient remains agreeable to injection - Depakote increased to 500mg qAM and 1500mg qHS - speech remains rapid and pressured, grandiose delusions improving but persist; will order repeat depakote level for 11/24 - Will discontinue risperidone at this time - Attempting to coordinate appropriate discharge plan, patient assisting 11/20 -Patient continues to improve, and has been cooperative with treatment. We reviewed the risks of the Maintena injection, he is agreeable to receiving it today, and will continue oral aripiprazole 20 mg daily for 2 weeks before discontinuing. His next injection will be due 12/18/2018. -[place] who will help determine what services he is eligible for. [facility] to the [facility] for a blended family service caseworker. Continue to coordinate with family service caseworker through his insurance. 11/21 - Received Abilify Maintena injection on 11/20 - next injection due 12/18/18 - Will decrease oral dose of Abilify to 15mg daily, as may improve feelings of restlessness - unclear if true akathisia - Continue to solidify housing options and outpatient supports who will be assisting patient after discharge - Meeting with [facility] family service caseworker, Sayra Iverson, is scheduled for Sunday. 11/22 -The patient continues to tolerate Abilify maintain a well. He notes mild sedation, but describes this as "a good thing," and notes that he had previously been "too hyper." -We are monitoring for akathisia. No cogwheel rigidity is in evidence on examination. -Given the patient's recent history of rapid decompensation in the community, we are placing an emphasis on securing wraparound services in the stable living in, with adequate psychiatric aftercare services prior to discharge. 11/23 - continue medications unchanged. -expecting intake with [facility] family service caseworker on 11/25 11/24 - depakote level 64, maintained meds unchanged, aim for abilify oral tablet to continue daily till 2 weeks after injection on 11/20 11/26 - Continue current medication regimen (2) Homicidal ideation: 11/13 -medically necessary private room for safety. -Homicide checks. -PO and IM medications ordered as above for agitation/aggressive behavior. 11/15 -We are maintaining a medically necessary private room. -The patient tells us that he is having no thoughts of harming other people, but he remains floridly manic. 11/22 -The patient has no homicidal thoughts and this problem is now resolved. (3) Seizure: 11/13 -patient has reported a history of seizures after a head injury years ago, but this has not been confirmed. At the time of his 11/08/2018 hospitalization, he reported being prescribed Keppra, but neurology records indicated concern that it may increase his emotional lability, so he was switched to Depakote for both seizure control and mood stabilization. Previous neurology consultations reviewed; they saw him in 06/2018 and 10/2018. At the time of the most recent consultation, the patient reported noncompliance with Keppra as he felt it destabilized mood, so gabapentin 300 mg 3 times daily was recommended. His EEG was normal at that time, there was no known history of seizure disorder, and they suspected any seizure activity was due to alcohol withdrawal. No seizure activity observed during his [facility] admissions. Continue Depakote, and increase as above. 11/22 -now that the patient has become more organized, he is better able to describe what he refers to as "seizures." As described by the patient, he reports a feeling of lightheadedness that is sometimes succeeded by a "blinding, throbbing headache" that involves his entire head from the forehead to his occipital region. He reports associated abdominal pain, nausea, and photophobia, and he notes that these symptoms, when they occur, tend to last "only a matter of minutes" before they improve and then resolve. He may or may not lose consciousness when this happens. He notes that he has sustained injuries from feeling "lightheaded" when the seizures began, but he says that he does not believe that he exhibits typical clonic tonic movements, nor does he lose control of bowel or bladder. The patient has a history of a number of head injuries that predated the onset of what he is referring to as "seizures." I believe that in the differential diagnosis should be the possibility of the patient is having a typical migraine headaches. In any event, he reports that he has had none since his admission to the unit several weeks ago. (4) Cannabis use disorder, mild, abuse: 11/13 -long-standing history of substance abuse, including alcohol, cannabis, methamphetamine, and cocaine; avoid use of controlled substances especially outside of the hospital due to the high risk of abuse/misuse/negative outcomes. -UDS was positive for THC on admission 11/08/2018, but drug screen is negative on this admission. Nevertheless, once his mental status improves, he will require ongoing psychoeducation regarding the risks of continued substance abuse, as he is clearly decompensated over the past month in the context of heavy drug use. -Will refer for outpatient mental health and substance abuse treatment prior to discharge. (5) Alcohol abuse: 11/13 -patient reports being sober for 2 years, although information in the medical record contradicts this. 10/20/2018 he had a blood alcohol level of 267.4 in the ER, and UDS was positive for THC. 10/18/2018 drug screen was positive for methamphetamine (confirmatory result positive with a level of 1020) and THC as well as a BAL of 175.3. 10/15/2018 UDS was positive for cocaine and methamphetamine, and 06/27/2018 BAL was 199. He is a poor/unreliable historian and we have not been able to obtain collateral from friends or family. -He is not at risk for withdrawal currently, as he was in the hospital for 5 days and was discharged for less than 24 hours prior to being readmitted, and drug screen was negative in the ER on this presentation. 11/20 - Brief intervention was offered and accepted. Intervention was greater than 5 min in length. Brief interventions include: 1. Assess Readiness to Quit, 2. Advise: Help Patient to Reduce or Abstain from Alcohol, 3. Agree: Set Specific, Feasible G oals, 4. Assist: Anticipate barriers, Problem-Solving Solutions. Social work to 5. Arrange: Referrals to appropriate treatment. Summary of intervention: The patient is in contemplation stage with regards to transtheoretical model of change. The patient is advised to abstain from drugs and alcohol due to depressant effects and risk of interactions with prescription medications. The patient agreed to abstain, and will be provided with recovery materials to continue to education self on how to cope with their condition without drinking. He claims that he has been sober for 2 years, but has had multiple hospitalizations recently with high blood alcohol levels and drug use as above. Continue to support sobriety and assisting with coping techniques. 11/22 -the patient has stopped insisting that he has been sober "for 2 years," and acknowledges that, in fact, he has deliberately consumed alcohol and the intercurrent period. He had some difficulty identifying alcohol use triggers, but was eventually able to say "I guess when I get bored or frustrated." And today, he was able to at least voice recognition that the apartment that he plans to move into following discharge is located near several establishments that cell alcoholic beverages, and that this will present a temptation. He knows, "I guess with alcohol there is always a temptation, but I realize that I tend to get myself in a lot of trouble when I drink and I am definitely not going to." I suggested participation in Alcoholics Anonymous, and he said that he would follow that advice, and that he knows where there are AA meetings in [place]. (6) Nicotine addiction: 11/13 -offer nicotine patch and gum for cravings. Offer smoking cessation education. 11/22 -the patient tells us that he smokes "about 1 cigar a day," and does not smoke cigarettes. He also tells us that he is not currently craving tobacco products, but also acknowledges that he "misses chewing tobacco," and acknowledges that he may be apt to return to the use of chewing tobacco. I reminded that this former tobacco use is also quite dangerous and, among other things, can lead to fatal oral cancers. The patient indicated understanding. 11/23 - pt indicates plan for him is not resume chewing tobacco and denied need for any medical related assistance in not using chew Inventory Assets Strengths: Has insurance/access to care, premorbid good functioning, multiple service referrals in place Needs: Prolonged hospitalization for symptom stabilization, sobriety from substances, robust outpatient care Risk Factors Assessment Male: Yes : Yes Do You Have Access To A Gun?: No Health Problems: Yes Mental Health Diagnoses: Yes Substance Use Disorders: Yes Previous Attempt: No Previous Psychiatric Hospitalization: Yes Hopelessness: No Smoker: Yes Protective Factors Assessment Mormonism Beliefs: Yes : No Responsible for Young Children: No Employed: No (disabled) Stable Relationships: No Supportive Family: No Good Rapport with Provider: No Absence of Any Risk Factors Above: No Interval History Identifying Information FREDA MO is a 58-year-old M who is currently homeless, has a history of bipolar disorder and substance abuse, and was admitted on 11/13/18 05:23 on a 302 involuntary commitment for erratic behavior, sam and homicidal ideation. He had just been discharged from the [facility] on 11/12/2018 after a 5-day hospitalization. He is on a 303 involuntary commitment as of 11/14/2018. Chief Complaint "Oh I'm good. No issues here. Just really hoping I can go on ." Review of Systems Notes Constitutional: noticing some mild weight gain Cardiovascular: denied Respiratory: denied Gastrointestinal: denied Neurological: denied Psychiatric: denies symptoms other than stated above Total of at least 10 systems reviewed, pertinent positives as above and in HPI. Sleep Information Total Hours of Sleep: 4.5 Sleep Comments: pt given vistaril per rn. Pt LINDSEY @ 0430 and thereafter. pt on q-15 minute checks. pt paced the hallway at times during the night. pt on q-15 minute checks Meal Information Percent Meal Consumed - Breakfast: 100 Percent Meal Consumed - Lunch: 100 Percent Meal Consumed - Dinner: 100 Subjective Subjective Patient was seen & assessed and interval progress reviewed with Nursing. Staff reports the patient continues to be somewhat discouraged about not being discharged earlier this week. Explanation was provided to patient regarding the necessary legal proceedings to convert his commitment to an outpatient 304. Patient more accepting as these plans have been finalized, he continues to play an active role in aftercare planning. Patient was seen today to assess progress since admission. He states that he is doing well, but admits he is feeling ready to leave. Patient denies any concerns related to medications, which have been maintained since shortly after receiving his Abilify Maintena injection. Patient states he rated his mood a 9/10 this morning and is feeling rather decent. Patient denies any concerns related to suicidality, delusions, or paranoia. He remains motivated to assist with discharge planning, especially as it relates to his housing options until December 09. Patient denies any other specific needs or concerns at this time. Physical Exam Psychiatric Orientation: alert, oriented x 3 and cooperative Apperance: appropriately dressed and appropriately groomed Eye Contact: good eye contact Motor Behavior: steady gait and station and no abnormal motor movements Speech: + loud speech and normal rate/rhythm/volume of speech Affect: euthymic affect and + irritable affect (Mildly, most prominent when discussing thoughts he was being discharged on Sunday) Mood: no depressed mood and no anxious mood "I am fine. Until he really good." Thought Process: goal directed thought process, linear/logical thought process and clear/coherent thought process Thought Content: reality based without delusions (Some underlying delusions of grandeur, but far less focused on these) Suicidal Thoughts: denies suicidal thoughts Homicidal Thoughts: denies homicidal thoughts Hallucinations: no auditory hallucinations and no visual hallucinations Cognition: attention grossly intact and language grossly intact Estimated Intelligence: consistent with education level Insight: + limited insight Judgement: + limited judgement Vital Signs (Past 24 Hours) Last Vital Signs Temp 36.4 C L 11/26/18 07:04 Pulse 93 H 11/26/18 07:05 Resp 18 11/26/18 07:04 BP 104/74 11/26/18 07:05 Pulse Ox 96 11/13/18 05:55 Results & Data Current Inpatient Medications Current Inpatient Medications: Current Inpatient Medications Acetaminophen (Tylenol) 650 mg PO Q4H PRN PRN Reason: Headache or Minor Fever Stop: 12/13/18 05:22 Last Admin: 11/21/18 01:20 Dose: 650 mg Documented by: Al Hydrox/Mg Hydrox/Simethicone (Maalox) 30 ml PO Q4H PRN PRN Reason: GI Upset Stop: 12/13/18 05:22 Aripiprazole (Abilify) 15 mg PO QAM [facility] Stop: 12/22/18 08:59 Last Admin: 11/26/18 07:45 Dose: 15 mg Documented by: Divalproex Sodium (Depakote Extended Release) 500 mg PO QAM [facility] Stop: 12/14/18 08:59 Last Admin: 11/26/18 07:46 Dose: 500 mg Documented by: Divalproex Sodium (Depakote Extended Release) 1,500 mg PO HS [facility] Stop: 12/19/18 21:59 Last Admin: 11/25/18 21:03 Dose: 1,500 mg Documented by: Haloperidol (Haldol) 10 mg PO Q4H PRN PRN Reason: psychosis Stop: 12/13/18 09:11 Haloperidol Lactate (Haldol) 10 mg IM Q4H PRN PRN Reason: psychosis Stop: 12/13/18 09:11 Haloperidol Lactate (Haldol) 10 mg IM BID PRN PRN Reason: refusal of PO meds Stop: 12/14/18 11:39 Hydroxyzine HCl (Vistaril) 50 mg PO HSZ PRN PRN Reason: Insomnia Stop: 12/13/18 05:22 Last Admin: 11/25/18 21:05 Dose: 50 mg Documented by: Hydroxyzine HCl (Vistaril) 25 mg PO Q4H PRN PRN Reason: Anxiety Stop: 12/13/18 05:22 Loperamide HCl (Imodium) 2 mg PO TID PRN PRN Reason: Diarrhea Stop: 12/24/18 10:15 Last Admin: 11/24/18 14:42 Dose: 2 mg Documented by: Lorazepam (Ativan) 1 mg PO Q4H PRN PRN Reason: psychosis or agitation Stop: 12/13/18 09:12 Lorazepam (Ativan) 1 mg IM Q4H PRN PRN Reason: psychosis or agitation Stop: 12/13/18 09:12 Magnesium Hydroxide (Milk Of Magnesia) 30 ml PO DAILY PRN PRN Reason: Heartburn Stop: 12/13/18 05:22 Nicotine (Nicoderm Cq) 14 mg TD QAM [facility] Stop: 12/13/18 08:59 Last Admin: 11/26/18 07:47 Dose: Not Given Documented by: Nicotine Polacrilex (Nicorette 2mg) 1 piece MT UD PRN PRN Reason: Nicotine Withdrawal Stop: 12/13/18 05:22 Last Admin: 11/26/18 07:46 Dose: 1 piece Documented by: Sodium Chloride (Runnels Nasal) 1 - 2 sprays NA PRN PRN PRN Reason: Nasal Dryness/Congestion Stop: 12/13/18 05:22 Post Discharge Appointments Primary Care Physician Name Of Family Doctor: Alison Lorenzo Primary Care [facility] [address] [facility] [place] [address] Psychiatrist Name of Psychiatrist: [facility] - will be scheduled after intake - next injection around 12/18 Therapist Name of Therapist: [facility] - EDIL Rinaldi Therapist's Date of Therapist Appointment: 11/29/18 Time of Therapist Appointment: 10:30 am Therapy Appointment Comment: [address] [facility] [place] [address] Skin Piler Name of Skin Piler: ALYSON Iverson Phone Number for Skin Piler: [phone] Case Management Appointment Comment: Contact her to schedule Other #1: Name of Aftercare Appointment: JARET Rich Phone Number of Aftercare Appointment: [phone] Date of Aftercare Appointment: 11/29/18 Time of Aftercare Appointment: 10:30 a.m. Aftercare Appointment Comment: Will meet you at your appt at [facility] CPT Code CPT Code 12400
[2018-11-27] MEDS: ARIPiprazole 5 MG TAB PO SCH (07:44)
[2018-11-27] MEDS: DIVALPROEX EXTENDED RELEASE 500 MG TAB PO SCH ×2 (07:45→21:22)
[2018-11-27] MEDS: NICOTINE 14 MG/24 HR PATCH TD SCH (07:45)
--- NOTE | 2018-11-27 09:17 | Psychiatric Progress Note ---
Date of Service November 27, 2018 Impression / Recommendations Impression Pt reporting rather decent mood, feeling he is ready for discharge. Pt's plan remains to move into an apartment in December, and has been in contact with the tangible personal property appraiser about rental application and associated costs. spa assistant manager and Housing Transitions to work with patient on housing to bridge until his lease date. Hearing to convert to 304 outpatient commitment is scheduled for 11/28 at 0930. Pt feels he is ready for discharge and states he is planning to follow-up with aftercare and continue sobriety. He has been referred to multiple services who will ideally assist him in these endeavors. He continues to tolerate medication regimen, understanding of need to continue oral aripiprazole until 12/04 to bridge to therapeutic levels of Maintena. Primary focus of team remains on aftercare and discharge planning, as his history suggests significant decompensation and increased risk of harm to self and others if discharged without appropriate outpatient support - which will ideally be mitigated to some extent by development of a clear aftercare plan prior to discharge. (1) Bipolar 1 disorder: 11/13 -current episode manic, severe, with psychosis. -Continue involuntary hospitalization, and petition for a 303 involuntary commitment given the likely need for long-term inpatient treatment given pattern of instability, severe symptoms, inability to function or provide for his own basic needs including housing and medical treatment, and risk of harm to others as evidenced by threats to kill people at the hotel the day prior to presentation, threats to hospital staff in the ER, and violent behavior. -Continue risperidone and increase to 2 mg every morning and 3 mg nightly. Order fasting glucose and lipid profile for monitoring on an atypical anti psychotic. -Continue Depakote and increase to 500 mg every morning and 1000 mg nightly, and check a trough level in 5 days (ordered for 11/18/2018). -Haloperidol 10 mg p.o./IM and Lorazepam 1 mg p.o./IM every 4 hours as needed psychosis or agitation. - Patient has had 5 head CTs and one brain MRI since 06/2018; no acute abnormalities, but notable for patchy white matter hypodensities (moderate subco rtical and periventricular microangiopathic disease) and atrophy. TSH has been checked several times in the last month alone, and is within normal limits. CMP notable for elevated AST and ALT, which has been consistent for at least the past year, and is actually improved somewhat since December 2017. UA is normal with no signs of infection, and although he has had multiple positive drug screens in the past month, his drug screen on presentation overnight was negative. Hepatitis A IgM and antibody, hepatitis B antigen and IgM antibody, and hepatitis C antibody were nonreactive in 10/2018. RPR was nonreactive in 12/2017. No identified organic cause of his mood and psychotic symptoms, and past history of mental illness is not known. Most appropriate diagnoses based on available information is bipolar disorder type I and polysubstance abuse. -File for 303 involuntary commitment with hearing tomorrow. Consider the need for long-term inpatient treatment at the [facility] versus involuntary outpatient commitment. 11/14 -303 commitment granted -Patient has intermittently refused medications. He has been seen by 2 physicians, both of whom recommend medications over objection. Will order Haldol 10 mg IM backup for refusal of p.o. medications. -Continue risperidone and Depakote as above. Fasting lipid profile and glucose checked today for monitoring on an atypical antipsychotic and are within normal limits. -Attempt to contact his sister and involve her in treatment. He has mentioned multiple girlfriends, unclear if this is delusional. We will continue to explore any other supports. His outpatient geriatric case manager through his insurance company has been informed of his admission, and hopefully can assist in exploring housing options. 11/15 -Today, the patient expresses willingness to adhere with medications as prescribed. Although he lacks substantial insight into his illness, he agrees that he will consent to a trial of aripiprazole 10 mg daily, with eventual goal of cross titrating aripiprazole and risperidone, while continuing valproic acid. -The patient remains floridly psychotic and continues to show marked symptoms of sam, including pressured speech, flight of ideas, increased energy, motoric hyperactivity, expansive mood, elated mood, and delusional grandiosity. -The patient gave us permission to speak with his sister. Information obtained is that he does not have a current girlfriend in [place], but had one perhaps 30 years ago. -Aripiprazole 10 mg daily, with a starting dose today, has been ordered. -Begin aripiprazole cross titration with risperidone, possibly beginning tomorrow, as tolerated. -Consider substituting Abilify Maintena, depending on response to oral aripiprazole. 11/16 -Continue aripiprazole 10 mg daily, and reduce risperidone to 2 mg twice daily. Continue to cross titration, and agree with Maintena if aripiprazole is effective. -Increase aripiprazole to 15 mg daily for tomorrow, and reduce risperidone to 2 mg at bedtime. We will contact outpatient geriatric case manager tomorrow for assistance in housing and referring for outpatient treatment. He apparently needs to get a new geriatric case manager within [facility], and will also need outpatient care with a psychiatrist and therapist, as well as a 304 outpatient commitment. 11/18 - Aripiprazole titrated to 20mg daily starting tomorrow - prior authorization sent for coverage of Abilify Maintena, which patient is agreeable to starting - Risperidone tapered to 1mg HS for this evening; continue cross-taper - will require 2-weeks of oral aripiprazole following Maintena injection - Depakote level on lower end of therapeutic range at 55; consider further titration - held off today due to adjustment in aripiprazole dosing - Pt has made calls to explore housing options on discharge - Continue to coordinate appropriate aftercare, will likely need a 304 outpatient commitment to improve compliance 11/19 - Continue aripiprazole 20mg qAM - awaiting PA on Abilify Maintena, patient remains agreeable to injection - Depakote increased to 500mg qAM and 1500mg qHS - speech remains rapid and pressured, grandiose delusions improving but persist; will order repeat depakote level for 11/24 - Will discontinue risperidone at this time - Attempting to coordinate appropriate discharge plan, patient assisting 11/20 -Patient continues to improve, and has been cooperative with treatment. We reviewed the risks of the Maintena injection, he is agreeable to receiving it today, and will continue oral aripiprazole 20 mg daily for 2 weeks before discontinuing. His next injection will be due 12/18/2018. -[facility] what [facility] he [facility] for. [facility] for a blended geriatric case manager. Continue to coordinate with geriatric case manager through his insurance. 11/21 - Received Abilify Maintena injection on 11/20 - next injection due 12/18/18 - Will decrease oral dose of Abilify to 15mg daily, as may improve feelings of restlessness - unclear if true akathisia - Continue to solidify housing options and outpatient supports who will be assisting patient after discharge - Meeting with [facility] geriatric case manager, Sayra Iverson, is scheduled for Sunday. 11/22 -The patient continues to tolerate Abilify maintain a well. He notes mild sedation, but describes this as "a good thing," and notes that he had previously been "too hyper." -We are monitoring for akathisia. No cogwheel rigidity is in evidence on examination. -Given the patient's recent history of rapid decompensation in the community, we are placing an emphasis on securing wraparound services in the stable living in, with adequate psychiatric aftercare services prior to discharge. 11/23 - continue medications unchanged. -expecting intake with [facility] geriatric case manager on 11/25 11/24 - depakote level 64, maintained meds unchanged, aim for abilify oral tablet to continue daily till 2 weeks after injection on 11/20 11/26 - Continue current medication regimen 11/27 - Continue current medication regimen, should receive oral aripiprazole until 12/04 to bridge to therapeutic levels of Maintena - Next Abilify Maintena injection is due on 12/18/18 - aftercare arranged with [facility] (2) Homicidal ideation: 11/13 -medically necessary private room for safety. -Homicide checks. -PO and IM medications ordered as above for agitation/aggressive behavior. 11/15 -We are maintaining a medically necessary private room. -The patient tells us that he is having no thoughts of harming other people, but he remains floridly manic. 11/22 -The patient has no homicidal thoughts and this problem is now resolved. (3) Seizure: 11/13 -patient has reported a history of seizures after a head injury years ago, but this has not been confirmed. At the time of his 11/08/2018 hospitalization, he reported being prescribed Keppra, but neurology records indicated concern that it may increase his emotional lability, so he was switched to Depakote for both seizure control and mood stabilization. Previous neurology consultations reviewed; they saw him in 06/2018 and 10/2018. At the time of the most recent consultation, the patient reported noncompliance with Keppra as he felt it destabilized mood, so gabapentin 300 mg 3 times daily was recommended. His EEG was normal at that time, there was no known history of seizure disorder, and they suspected any seizure activity was due to alcohol withdrawal. No seizure activity observed during his U admissions. Continue Depakote, and increase as above. 11/22 -now that the patient has become more organized, he is better able to describe what he refers to as "seizures." As described by the patient, he reports a feeling of lightheadedness that is sometimes succeeded by a "blinding, throbbing headache" that involves his entire head from the forehead to his occipital region. He reports associated abdominal pain, nausea, and photophobia, and he notes that these symptoms, when they occur, tend to last "only a matter of minutes" before they improve and then resolve. He may or may not lose consciousness when this happens. He notes that he has sustained injuries from feeling "lightheaded" when the seizures began, but he says that he does not believe that he exhibits typical clonic tonic movements, nor does he lose control of bowel or bladder. The patient has a history of a number of head injuries that predated the onset of what he is referring to as "seizures." I believe that in the differential diagnosis should be the possibility of the patient is having a typical migraine headaches. In any event, he reports that he has had none since his admission to the unit several weeks ago. (4) Cannabis use disorder, mild, abuse: 11/13 -long-standing history of substance abuse, including alcohol, cannabis, methamphetamine, and cocaine; avoid use of controlled substances especially outside of the hospital due to the high risk of abuse/misuse/negative outcomes. -UDS was positive for THC on admission 11/08/2018, but drug screen is negative on this admission. Nevertheless, once his mental status improves, he will require ongoing psychoeducation regarding the risks of continued substance abuse, as he is clearly decompensated over the past month in the context of heavy drug use. -Will refer for outpatient mental health and substance abuse treatment prior to discharge. (5) Alcohol abuse: 11/13 -patient reports being sober for 2 years, although information in the medical record contradicts this. 10/20/2018 he had a blood alcohol level of 267.4 in the ER, and UDS was positive for THC. 10/18/2018 drug screen was positive for methamphetamine (confirmatory result positive with a level of 1020) and THC as well as a BAL of 175.3. 10/15/2018 UDS was positive for cocaine and methamphetamine, and 06/27/2018 BAL was 199. He is a poor/unreliable historian and we have not been able to obtain collateral from friends or family. -He is not at risk for withdrawal currently, as he was in the hospital for 5 days and was discharged for less than 24 hours prior to being readmitted, and drug screen was negative in the ER on this presentation. 11/20 - Brief intervention was offered and accepted. Intervention was greater than 5 min in length. Brief interventions include: 1. Assess Readiness to Quit, 2. Advise: Help Patient to Reduce or Abstain from Alcohol, 3. Agree: Set Specific, Feasible Goals, 4. Assist: Anticipate barriers, Problem-Solving Solutions. Social work to 5. Arrange: Referrals to appropriate treatment. Summary of intervention: The patient is in contemplation stage with regards to transtheoretical model of change. The patient is advised to abstain from drugs and alcohol due to depressant effects and risk of interactions with prescription medications. The patient agreed to abstain, and will be provided with recovery materials to continue to education self on how to cope with their condition without drinking. He claims that he has been sober for 2 years, but has had multiple hospitalizations recently with high blood alcohol levels and drug use as above. Continue to support sobriety and assisting with coping techniques. 11/22 -the patient has stopped insisting that he has been sober "for 2 years," and acknowledges that, in fact, he has deliberately consumed alcohol and the intercurrent period. He had some difficulty identifying alcohol use triggers, but was eventually able to say "I guess when I get bored or frustrated." And today, he was able to at least voice recognition that the apartment that he plans to move into following discharge is located near several establishments that cell alcoholic beverages, and that this will present a temptation. He knows, "I guess with alcohol there is always a temptation, but I realize that I tend to get myself in a lot of trouble when I drink and I am definitely not going to." I suggested participation in Alcoholics Anonymous, and he said that he would follow that advice, and that he knows where there are AA meetings in [place]. (6) Nicotine addiction: 6/5 -offer nicotine patch and gum for cravings. Offer smoking cessation education. 11/22 -the patient tells us that he smokes "about 1 cigar a day," and does not smoke cigarettes. He also tells us that he is not currently craving tobacco products, but also acknowledges that he "misses chewing tobacco," and acknowledges that he may be apt to return to the use of chewing tobacco. I reminded that this former tobacco use is also quite dangerous and, among other things, can lead to fatal oral cancers. The patient indicated understanding. 11/23 - pt indicates plan for him is not resume chewing tobacco and denied need for any medical related assistance in not using chew Inventory Assets Strengths: Has insurance/access to care, premorbid good functioning, multiple service referrals in place Needs: Prolonged hospitalization for symptom stabilization, sobriety from substances, robust outpatient care Risk Factors Assessment Male: Yes : Yes Do You Have Access To A Gun?: No Health Problems: Yes Mental Health Diagnoses: Yes Substance Use Disorders: Yes Previous Attempt: No Previous Psychiatric Hospitalization: Yes Hopelessness: No Smoker: Yes Protective Factors Assessment Adventism Beliefs: Yes : No Responsible for Young Children: No Employed: No (disabled) Stable Relationships: No Supportive Family: No Good Rapport with Provider: No Absence of Any Risk Factors Above: No Interval History Identifying Information FREDA MO is a 58-year-old M who is currently homeless, has a history of bipolar disorder and substance abuse, and was admitted on 11/13/18 05:23 on a 302 involuntary commitment for erratic behavior, sam and homicidal ideation. He had just been discharged from the [facility] on 11/12/2018 after a 5-day hospitalization. He is on a 303 involuntary commitment as of 11/14/2018. Chief Complaint "Oh, I'm good. All things are looking good for tomorrow still?" Review of Systems Notes Constitutional: denied Cardiovascular: denied Respiratory: denied Gastrointestinal: denied Neurological: denied Psychiatric: denies symptoms other than stated above Total of at least 10 systems reviewed, pertinent positives as above and in HPI. Sleep Information Total Hours of Sleep: 5.75 Sleep Comments: pt given vistaril per rn. pt on q-15 minute checks Meal Information Percent Meal Consumed - Breakfast: 100 Percent Meal Consumed - Lunch: 100 Percent Meal Consumed - Dinner: 100 Subjective Subjective Patient was seen & assessed and interval progress reviewed with Treatment Team. Staff reports the patient continues to interact appropriately with peers and has been attending group and recreational programming routinely. Patient continues to be motivated for discharge, which is planned following his 304 outpatient commitment hearing tomorrow morning. Patient was seen today to assess progress since admission. He reports that he continues to do well, but is feeling ready to go home. He is taking on a rather active role in solidifying an apartment starting in December, and is agreeable to working with housing transitions to find temporary housing to bridge until that date. He shares with this provider's concern about housing options that permit alcohol and substances, as he does not want to be tempted to return to these activities. Patient states "not that I want to at all, but if they are around there might be a temptation." Patient is anticipating receiving his Social Security debit card today, and is hopeful to obtain a more accurate evaluation of the amount in his bank account. Patient does not feel that he requires any other aftercare coordination from our team. We reviewed medication recommendations following discharge, which includes continuing oral aripiprazole until 12/04/2018. Date of next Abilify Maintena injection was also provided, recommending injection on 12/18/2018. At this time, patient verbalizes motivation to be compliant with aftercare appointments and routine follow-ups with his PCP. Patient denies any other needs or concerns at this time. Physical Exam Psychiatric Orientation: alert, oriented x 3 and cooperative (And pleasant) Apperance: appropriately dressed and appropriately groomed Eye Contact: good eye contact Motor Behavior: steady gait and station and no abnormal motor movements Speech: normal rate/rhythm/volume of speech Affect: euthymic affect Mood: no depressed mood and no anxious mood "I am excited, I am ready to go." Thought Process: goal directed thought process and clear/coherent thought process Thought Content: reality based without delusions (No verbalized delusional thought content, no mention of previous grandiose delusions) Suicidal Thoughts: denies suicidal thoughts and denies suicidal plan Homicidal Thoughts: denies homicidal thoughts Hallucinations: no auditory hallucinations and no visual hallucinations Cognition: attention grossly intact and language grossly intact Estimated Intelligence: consistent with education level Insight: + limited insight (Likely limited by long-term illness and substance abuse) Judgement: + limited judgement (Likely limited by long-term illness and substance abuse) Vital Signs (Past 24 Hours) Last Vital Signs Temp 36.4 C L 11/27/18 06:53 Pulse 105 H 11/27/18 06:53 Resp 18 11/27/18 06:53 BP 113/74 11/27/18 06:53 Pulse Ox 96 11/13/18 05:55 Results & Data Current Inpatient Medications Current Inpatient Medications: Current Inpatient Medications Acetaminophen (Tylenol) 650 mg PO Q4H PRN PRN Reason: Headache or Minor Fever Stop: 12/13/18 05:22 Last Admin: 11/21/18 01:20 Dose: 650 mg Documented by: Al Hydrox/Mg Hydrox/Simethicone (Maalox) 30 ml PO Q4H PRN PRN Reason: GI Upset Stop: 12/13/18 05:22 Aripiprazole (Abilify) 15 mg PO QAM [facility] Stop: 12/22/18 08:59 Last Admin: 11/27/18 07:44 Dose: 15 mg Documented by: Divalproex Sodium (Depakote Extended Release) 500 mg PO QAM [facility] Stop: 12/14/18 08:59 Last Admin: 11/27/18 07:45 Dose: 500 mg Documented by: Divalproex Sodium (Depakote Extended Release) 1,500 mg PO HS KAYLAN Stop: 12/19/18 21:59 Last Admin: 11/26/18 21:17 Dose: 1,500 mg Documented by: Haloperidol (Haldol) 10 mg PO Q4H PRN PRN Reason: psychosis Stop: 12/13/18 09:11 Haloperidol Lactate (Haldol) 10 mg IM Q4H PRN PRN Reason: psychosis Stop: 12/13/18 09:11 Haloperidol Lactate (Haldol) 10 mg IM BID PRN PRN Reason: refusal of PO meds Stop: 12/14/18 11:39 Hydroxyzine HCl (Vistaril) 50 mg PO HSZ PRN PRN Reason: Insomnia Stop: 12/13/18 05:22 Last Admin: 11/26/18 21:17 Dose: 50 mg Documented by: Hydroxyzine HCl (Vistaril) 25 mg PO Q4H PRN PRN Reason: Anxiety Stop: 12/13/18 05:22 Loperamide HCl (Imodium) 2 mg PO TID PRN PRN Reason: Diarrhea Stop: 12/24/18 10:15 Last Admin: 11/24/18 14:42 Dose: 2 mg Documented by: Lorazepam (Ativan) 1 mg PO Q4H PRN PRN Reason: psychosis or agitation Stop: 12/13/18 09:12 Lorazepam (Ativan) 1 mg IM Q4H PRN PRN Reason: psychosis or agitation Stop: 12/13/18 09:12 Magnesium Hydroxide (Milk Of Magnesia) 30 ml PO DAILY PRN PRN Reason: Heartburn Stop: 12/13/18 05:22 Nicotine (Nicoderm Cq) 14 mg TD QAM KAYLAN Stop: 12/13/18 08:59 Last Admin: 11/27/18 07:45 Dose: Not Given Documented by: Nicotine Polacrilex (Nicorette 2mg) 1 piece MT UD PRN PRN Reason: Nicotine Withdrawal Stop: 12/13/18 05:22 Last Admin: 11/26/18 07:46 Dose: 1 piece Documented by: Sodium Chloride ([place] Nasal) 1 - 2 sprays NA PRN PRN PRN Reason: Nasal Dryness/Congestion Stop: 12/13/18 05:22 Post Discharge Appointments Primary Care Physician Name Of Family Doctor: Alison Lorenzo Primary Care Provider Appointment Comment: [address] [place] [id number] Psychiatrist Name of Psychiatrist: [facility] - will be scheduled after intake - next injection around 12/18 Therapist Name of Therapist: [facility] - EDIL Rinaldi Therapist's Date of Therapist Appointment: 11/29/18 Time of Therapist Appointment: 10:30 am Therapy Appointment Comment: [address] [place] [id number] Rubber Compounder Name of Rubber Compounder: ALYSON Iverson Phone Number for Rubber Compounder: [phone] Case Management Appointment Comment: Contact her to schedule Other #1: Name of Aftercare Appointment: JARET Rich Phone Number of Aftercare Appointment: [phone] Date of Aftercare Appointment: 11/29/18 Time of Aftercare Appointment: 10:30 a.m. Aftercare Appointment Comment: Will meet you at your appt at [facility] CPT Code CPT Code 93877
[2018-11-28] MEDS: NICOTINE 14 MG/24 HR PATCH TD SCH (07:18)
[2018-11-28] MEDS: ARIPiprazole 5 MG TAB PO SCH (07:18)
[2018-11-28] MEDS: DIVALPROEX EXTENDED RELEASE 500 MG TAB PO SCH (07:18)
--- NOTE | 2018-11-28 08:48 | Discharge Summary ---
Date of Service November 28, 2018 History of Present Illness Patient was hospitalized on the [facility] on an involuntary commitment from 11/08/18 11/12/18. During that hospitalization, he was started on risperidone and Depakote, and attempts were made to contact his sister and Adult Protective Services worker, neither of whom returned phone calls. His outpatient keycase assembler through [employer] was contacted and provided collateral information, and he was to meet with her after discharge to work on housing options, while staying in a hotel temporarily. He was discharged AMA at the conclusion of his 302 involuntary commitment, as he remained manic, and was unwilling to sign involuntarily, but did not meet criteria for a 303 involuntary commitment. According to records, he returned to the ER <24 hours after discharge with police, was disoriented and delusional. Police reported they were called to the quality in an [place] with the patient had threatened to "kill everyone there." The patient told police he was going to walk to [place], was disoriented, did not know the date or time, and said that he had just arrived home from [place] where he had killed 17 people. He said he was going to meet President Leti in the morning for a dinner. He told ER staff that he had been on the behavioral health unit where he was helping patients by "changing their diapers." He said that he had $100,000 waiting for him in [place], and that 12 women were writing him love letters while he was in the hospital. He said he had a billionaire uncle who is going to buy the hospital and give everyone a raise. His mood was labile, alternating between happy, angry, and tearful, was noted to be hyperverbal, tangential, and grandiose. He threatened an ER physician, stating "I will crush both of his fucking legs," and told ER staff "I could kill you from a mile away." He stated he did not drink alcohol in 2 year s, but had a gallon of vodka at home and was going to "get wasted tonight." He demanded to leave to go to [place], and became agitated and combative when informed he was being involuntarily committed. He received 10 mg of Haldol and 4 mg of lorazepam in the emergency room. His drug screen was negative, and he has had 5 head CTs in the past 4-1/2 months, as well as a brain MRI in 06/2018, which showed no acute findings, but patchy white matter hypodensities (moderate subcortical and periventricular microangiopathic disease) and atrophy. On admission he was resumed on risperidone 2 mg twice daily and Depakote 500 mg twice daily. On my assessment today, the patient was seen in his room, where he is lying in bed in a darkened room but awake. He is uncooperative and agitated, frequently swearing and interrupting. He gives conflicting reports, initially stating "I never left the hospital" when asked what happened yesterday after discharge, and later stating he was "at home nice and peaceful," and does not know why he was brought back or readmitted. He denies ever being at a hotel and [place], and says the police "gave me a free ride here to get checked out for my trip to [place]." When asked about the threats he made to others, he says "I hope to hell I did, about 10 people I want to pound the fuck outta, all the guards in this place." He continues to escalate, making derogatory comments about the hospital and staff, stating "I don't give a fuck, need to get out of this fucking dump, I'm supposed to be in [place]!" Attempted to explain the commitment process, informed patient that we were petitioning for a 303 hearing to be held tomorrow, but he continued to interrupt, swear, and escalates, so the interview was terminated. Physical Exam Psychiatric Orientation: alert, oriented x 3 and cooperative Apperance: appropriately dressed, appropriately groomed and appeared stated age Eye Contact: good eye contact Motor Behavior: steady gait and station and no abnormal motor movements Speech: normal rate/rhythm/volume of speech Talkative Affect: euthymic affect and mood congruent with affect Mood: no depressed mood, no anxious mood and no irritable mood Thought Process: goal directed thought process Thought Content: reality based without delusions Suicidal Thoughts: denies suicidal thoughts Homicidal Thoughts: denies homicidal thoughts Hallucinations: no auditory hallucinations and no visual hallucinations Cognition: recent memory grossly intact, attention grossly intact and language grossly intact Insight: + poor insight Judgement: + poor judgement Vital Signs (Past 24 Hours) Last Vital Signs Temp 36.5 C 06/20/19 06:00 Pulse 89 11/28/18 06:00 Resp 18 11/28/18 06:00 BP 109/70 11/28/18 06:00 Pulse Ox 96 11/13/18 05:55 Principal Diagnosis Bipolar disorder type I, most recent episode manic with psychosis Alcohol use disorder Cannabis use disorder Recent cocaine and methamphetamine abuse History of treatment noncompliance Psychiatric Data Patient was hospitalized on our unit for 15 days. He was initially continued on risperidone and Depakote, which had been started during his hospitalization the week prior. He intermittently refused medications, and medications over objection were recommended. He had a 303 commitment hearing 11/14/2018. Due to chronic noncompliance with treatment, he was switched to aripiprazole, which he tolerated well, and was then started on Abilify Maintena long-acting injectable antipsychotic. He received his first injection 11/20/2018. He was initially floridly delusional, hyperactive, irritable, and grandiose, was unable to participate in groups and required frequent redirection from staff. He made suicidal statements shortly after admission when agitated and angry about being in the hospital, but otherwise denied suicidality. He was initially focused on his delusions, stating he had just returned from [place] where he had killed many people, was going to [place] to a billionaire, and was receiving a special award from President Leti in [facility]. As his manic and psychotic symptoms improved, he was able to attend and participate in programming and engage in discharge planning. He was able to maintain better behavioral control, was less agitated, and no longer threatening other people. He agreed to contact with his keycase assembler Mónica (through his insurance due to chronic noncompliance), who came in for a meeting and recommended he be referred for case management [facility] determine if [facility] could [facility] services for him. Attempts were made to contact his family to no avail. A multidisciplinary treatment discharge planning meeting was held with hospital staff and his outpatient case workers, and options for local housing, and outpatient treatment, and support services were explored. Discussed the plan to transition him to a 304 outpatient commitment at the time of discharge given his history of noncompliance. His substance abuse was addressed, although he consistently reported he had been sober for 2 years, which was clearly inaccurate given his multiple hospital contacts in October with drug screens positive for methamphetamine, cocaine, cannabis, and elevated blood alcohol levels. He was educated about the risks of substance abuse and recommendations for abstinence. Day of Discharge Assessment Staff report the patient has been in good behavioral control, is taking medications as prescribed, attending all unit programming, and socializing with peers in his free time. He met with his keycase assembler yesterday to talk about housing options until he can move into a new apartment at the beginning of December. They ultimately agreed that he would stay in a hotel in [place] which is within walking distance of [facility]. Staff have been working with him on ways to maintain stability after discharge. He continues to deny thoughts to harm him self or anyone else, and has not been agitated or threatening. He has been attending to his ADLs independently. On my assessment, he states that he is feeling "great," and is ready to go after his hearing. He says his medications are helping "for my seizures," and refers to his behaviors prior to admission is being related to his "seizures." He denies side effects to medication, and agrees to continue to take them and to follow up with outpatient appointments. He denies thoughts of harming himself or others, does not express delusional thought content, denies paranoia, and hallucinations. He is working on locating his phone and looking forward to getting a new apartment with the help of his keycase assembler. We again reviewed in detail the risks of substance abuse, including alcohol and illicit drugs, and he is adamant that he will not use substances in the future. Transition of Care Transition Of Care Record: was reviewed with the patient Advance Directives Advance Directives Information Provided: Yes Advance Directives: No Mental Health Advance Directive: No Advance Directives on File: No Living Will: No Power of Flow Coordinator: No Advance Directives Reason:: Declines as Mental Health Visit. Risk Factors Assessment Risk factors were mitigated by admission to the inpatient unit, use of medications to target manic and psychotic symptoms, education about his diagnosis and the recommended treatment, education about the risks of substance use and recommendations for abstinence, coordination with outpatient keycase assembler, referring for additional outpatient services, involving him in groups and therapy, working on healthy coping skills and a discharge safety plan, referring for outpatient psychiatric treatment, and use of a 304 involuntary outpatient commitment to try to improve treatment adherence and stability. He has demonstrated significant improvement, psychotic and manic symptoms have resolved, he has been cooperative with treatment, has not been aggressive or threatening, is consistently denying thoughts of harming himself or others, is eating and sleeping well, taking medications as prescribed, and voicing willingness to follow up with outpatient treatment. He will be discharged on an involuntary outpatient commitment. Male: Yes : Yes Do You Have Access To A Gun?: No Health Problems: Yes Mental Health Diagnoses: Yes Substance Use Disorders: Yes Previous Attempt: No Previous Psychiatric Hospitalization: Yes Hopelessness: No Smoker: Yes Protective Factors Assessment Muslim Beliefs: Yes : No Responsible for Young Children: No Employed: No (disabled) Stable Relationships: No Supportive Family: No Good Rapport with Provider: No Absence of Any Risk Factors Above: No Tobacco Cessation at Discharge Tobacco Cessation Medication Prescribed at Discharge: Not Applicable/Non-Smoker Antipsychotic Medications The patient is on both oral aripiprazole and Abilify Maintena long-acting injectable, as he was just started on the injection. He will take oral aripiprazole for 1 week, and it will then be discontinued and he will be maintained on the BABB alone. Total Time Total Time Spent: Greater Than 30 Minutes Total Time Includes: Examination of the patient, Discharge Planning, Medication Reconciliation, Communication with other providers and As well as (Hearing) Discharge Data Lab Results 11/13/18 11/13/18 11/13/18 01:12 01:12 02:03 WBC 5.18 RBC 3.84 L Hgb 12.6 L Hct 36.7 L MCV 95.6 MCH 32.8 MCHC 34.3 RDW Std Deviation 41.9 RDW Coeff of Durga 12.0 Plt Count 192 MPV 9.6 Immature Gran % (Auto) 0.2 Neut % (Auto) 62.2 Lymph % (Auto) 24.7 [place] % (Auto) 11.0 Eos % (Auto) 1.7 Baso % (Auto) 0.2 Immature Gran # (Auto) 0.01 Neut # (Auto) 3.22 Lymph # (Auto) 1.28 [place] # (Auto) 0.57 Eos # (Auto) 0.09 Baso # (Auto) 0.01 Sodium Potassium Chloride Carbon Dioxide Anion Gap BUN Creatinine Est Cr Clr Drug Dosing Est GFR ( Amer) Est GFR (Non-Af Amer) BUN/Creatinine Ratio Glucose Fasting Glucose Calcium Total Bilirubin AST ALT Alkaline Phosphatase Total Protein Albumin Globulin Albumin/Globulin Ratio Triglycerides Cholesterol LDL Cholesterol, Calc VLDL Cholesterol, Calc HDL Cholesterol Cholesterol/HDL Ratio TSH Urine Color Yellow Urine Appearance Clear Urine pH 7.0 Ur Specific [place] 1.009 Urine Protein Negative Urine Glucose (UA) Negative Urine Ketones Negative Urine Blood Negative Urine Nitrite Negative Urine Bilirubin Negative Urine Urobilinogen Negative Ur Leukocyte Esterase Negative Salicylates Urine Opiates Screen Neg Ur Methadone, Qual Neg Acetaminophen Urine Barbiturates Neg Valproic Acid Ur Phencyclidine (PCP) Neg U Amphetamin/Meth Scrn Neg MDMA (Ecstasy) Screen Neg U Benzodiazepines Scrn Neg Ur Cocaine Metabolite Neg U Marijuana (THC) Screen Neg Ethyl Alcohol mg/dL 11/13/18 11/13/18 11/13/18 02:03 02:03 02:03 WBC RBC Hgb Hct MCV MCH MCHC RDW Std Deviation RDW Coeff of Durga Plt Count MPV Immature Gran % (Auto) Neut % (Auto) Lymph % (Auto) [place] % (Auto) Eos % (Auto) Baso % (Auto) Immature Gran # (Auto) Neut # (Auto) Lymph # (Auto) [place] # (Auto) Eos # (Auto) Baso # (Auto) Sodium 140 Potassium 3.7 Chloride 107 Carbon Dioxide 29 Anion Gap 4.0 BUN 13 Creatinine 0.53 L Est Cr Clr Drug Dosing 188.8 Est GFR ( Amer) 136.1 Est GFR (Non-Af Amer) 117.5 BUN/Creatinine Ratio 23.7 H Glucose 94 Fasting Glucose Calcium 8.5 Total Bilirubin 0.4 AST 49 H ALT 79 H Alkaline Phosphatase 93 Total Protein 7.1 Albumin 3.8 Globulin 3.3 Albumin/Globulin Ratio 1.2 Triglycerides Cholesterol LDL Cholesterol, Calc VLDL Cholesterol, Calc HDL Cholesterol Cholesterol/HDL Ratio TSH 0.911 Urine Color Urine Appearance Urine pH Ur Specific [place] Urine Protein Urine Glucose (UA) Urine Ketones Urine Blood Urine Nitrite Urine Bilirubin Urine Urobilinogen Ur Leukocyte Esterase Salicylates 2.3 L Urine Opiates Screen Ur Methadone, Qual Acetaminophen < 2 L Urine Barbiturates Valproic Acid Ur Phencyclidine (PCP) U Amphetamin/Meth Scrn MDMA (Ecstasy) Screen U Benzodiazepines Scrn Ur Cocaine Metabolite U Marijuana (THC) Screen Ethyl Alcohol mg/dL < 3.0 11/14/18 11/18/18 11/24/18 09:07 08:05 06:46 WBC RBC Hgb Hct MCV MCH MCHC RDW Std Deviation RDW Coeff of Durga Plt Count MPV Immature Gran % (Auto) Neut % (Auto) Lymph % (Auto) [place] % (Auto) Eos % (Auto) Baso % (Auto) Immature Gran # (Auto) Neut # (Auto) Lymph # (Auto) [place] # (Auto) Eos # (Auto) Baso # (Auto) Sodium Potassium Chloride Carbon Dioxide Anion Gap BUN Creatinine Est Cr Clr Drug Dosing Est GFR ( Amer) Est GFR (Non-Af Amer) BUN/Creatinine Ratio Glucose Fasting Glucose 91 Calcium Total Bilirubin AST ALT Alkaline Phosphatase Total Protein Albumin Globulin Albumin/Globulin Ratio Triglycerides 92 Cholesterol 174 LDL Cholesterol, Calc 122 VLDL Cholesterol, Calc 18 HDL Cholesterol 34 Cholesterol/HDL Ratio 5 TSH Urine Color Urine Appearance Urine pH Ur Specific [place] Urine Protein Urine Glucose (UA) Urine Ketones Urine Blood Urine Nitrite Urine Bilirubin Urine Urobilinogen Ur Leukocyte Esterase Salicylates Urine Opiates Screen Ur Methadone, Qual Acetaminophen Urine Barbiturates Valproic Acid 55 64 Ur Phencyclidine (PCP) U Amphetamin/Meth Scrn MDMA (Ecstasy) Screen U Benzodiazepines Scrn Ur Cocaine Metabolite U Marijuana (THC) Screen Ethyl Alcohol mg/dL Hospital Course (1) Bipolar 1 disorder: 11/13 -current episode manic, severe, with psychosis. -Continue involuntary hospitalization, and petition for a 303 involuntary commitment given the likely need for long-term inpatient treatment given pattern of instability, severe symptoms, inability to function or provide for his own basic needs including housing and medical treatment, and risk of harm to others as evidenced by threats to kill people at the hotel the day prior to presentatio n, threats to hospital staff in the ER, and violent behavior. -Continue risperidone and increase to 2 mg every morning and 3 mg nightly. Order fasting glucose and lipid profile for monitoring on an atypical antipsychotic. -Continue Depakote and increase to 500 mg every morning and 1000 mg nightly, and check a trough level in 5 days (ordered for 11/18/2018). -Haloperidol 10 mg p.o./IM and Lorazepam 1 mg p.o./IM every 4 hours as needed psychosis or agitation. - Patient has had 5 head CTs and one brain MRI since 06/2018; no acute abnormalities, but notable for patchy white matter hypodensities (moderate subcortical and periventricular microangiopathic disease) and atrophy. TSH has been checked several times in the last month alone, and is within normal limits. CMP notable for elevated AST and ALT, which has been consistent for at least the past year, and is actually improved somewhat since December 2017. UA is normal with no signs of infection, and although he has had multiple positive drug screens in the past month, his drug screen on presentation overnight was negative. Hepatitis A IgM and antibody, hepatitis B antigen and IgM antibody, and hepatitis C antibody were nonreactive in 10/2018. RPR was nonreactive in 12/2017. No identified organic cause of his mood and psychotic symptoms, and past history of mental illness is not known. Most appropriate diagnoses based on available information is bipolar disorder type I and polysubstance abuse. -File for 303 involuntary commitment with hearing tomorrow. Consider the need [facility] outpatient commitment. 11/14 -303 commitment granted -Patient has intermittently refused medications. He has been seen by 2 physicians, both of whom recommend medications over objection. Will order Haldol 10 mg IM backup for refusal of p.o. medications. -Continue risperidone and Depakote as above. Fasting lipid profile and glucose checked today for monitoring on an atypical antipsychotic and are within normal limits. -Attempt to contact his sister and involve her in treatment. He has mentioned multiple girlfriends, unclear if this is delusional. We will continue to explore any other supports. His outpatient keycase assembler through his insurance company has been informed of his admission, and hopefully can assist in exploring housing options. 11/15 -Today, the patient expresses willingness to adhere with medications as prescribed. Although he lacks substantial insight into his illness, he agrees that he will consent to a trial of aripiprazole 10 mg daily, with eventual goal of cross titrating aripiprazole and risperidone, while continuing valproic acid. -The patient remains floridly psychotic and continues to show marked symptoms of sam, including pressured speech, flight of ideas, increased energy, motoric hyperactivity, expansive mood, elated mood, and delusional grandiosity. -The patient gave us permission to speak with his sister. Information obtained is that he does not have a current girlfriend in [place], but had one perhaps 30 years ago. -Aripiprazole 10 mg daily, with a starting dose today, has been ordered. -Begin aripiprazole cross titration with risperidone, possibly beginning tomorrow, as tolerated. -Consider substituting Abilify Maintena, depending on response to oral aripiprazole. 11/16 -Continue aripiprazole 10 mg daily, and reduce risperidone to 2 mg twice daily. Continue to cross titration, and agree with Maintena if aripiprazole is effective. -Increase aripiprazole to 15 mg daily for tomorrow, and reduce risperidone to 2 mg at bedtime. We will contact outpatient keycase assembler tomorrow for assistance in housing and referring for outpatient treatment. He apparently needs to get a new keycase assembler within [facility], and will also need outpatient care with a psychiatrist and therapist, as well as a 304 outpatient commitment. 11/18 - Aripiprazole titrated to 20mg daily starting tomorrow - prior authorization sent for coverage of Abilify Maintena, which patient is agreeable to starting - Risperidone tapered to 1mg HS for this evening; continue cross-taper - will require 2-weeks of oral aripiprazole following Maintena injection - Depakote level on lower end of therapeutic range at 55; consider further titration - held off today due to adjustment in aripiprazole dosing - Pt has made calls to explore housing options on discharge - Continue to coordinate appropriate aftercare, will likely need a 304 outpatient commitment to improve compliance 11/19 - Continue aripiprazole 20mg qAM - awaiting PA on Abilify Maintena, patient remains agreeable to injection - Depakote increased to 500mg qAM and 1500mg qHS - speech remains rapid and pressured, grandiose delusions improving but persist; will order repeat depakote level for 11/24 - Will discontinue risperidone at this time - Attempting to coordinate appropriate discharge plan, patient assisting 11/20 -Patient continues to improve, and has been cooperative with treatment. We reviewed the risks of the Maintena injection, he is agreeable to receiving it today, and will continue oral aripiprazole 20 mg daily for 2 weeks before discontinuing. His next injection will be due 12/18/2018. -Met with staff from the [facility] yesterday who will help determine what services he is eligible for. Refer to the base service unit for a blended keycase assembler. Continue to coordinate with keycase assembler through his insurance. 11/21 - Received Abilify Maintena injection on 11/20 - next injection due 12/18/18 - Will decrease oral dose of Abilify to 15mg daily, as may improve feelings of restlessness - unclear if true akathisia - Continue to solidify housing options and outpatient supports who will be assisting patient after discharge - Meeting with [facility] keycase assembler, Sayra Iverson, is scheduled for Sunday. 11/22 -The patient continues to tolerate Abilify maintain a well. He notes mild sedation, but describes this as "a good thing," and notes that he had previously been "too hyper." -We are monitoring for akathisia. No cogwheel rigidity is in evidence on examination. -Given the patient's recent history of rapid decompensation in the community, we are placing an emphasis on securing wraparound services in the stable living in, with adequate psychiatric aftercare services prior to discharge. 11/23 - continue medications unchanged. -expecting intake with [facility] keycase assembler on 11/25 11/24 - depakote level 64, maintained meds unchanged, aim for abilify oral tablet to continue daily till 2 weeks after injection on 11/20 11/26 - Continue current medication regimen 11/27 - Continue current medication regimen, should receive oral aripiprazole until 12/04 to bridge to therapeutic levels of Maintena - Next Abilify Maintena injection is due on 12/18/18 - aftercare arranged with [facility] 11/28 -Discharged on an involuntary outpatient commitment. (2) Homicidal ideation: 11/13 -medically necessary private room for safety. -Homicide checks. -PO and IM medications ordered as above for agitation/aggressive behavior. 11/15 -We are maintaining a medically necessary private room. -The patient tells us that he is having no thoughts of harming other people, but he remains floridly manic. 11/22 -The patient has no homicidal thoughts and this problem is now resolved. (3) Seizure: 11/13 -patient has reported a history of seizures after a head injury years ago, but this has not been confirmed. At the time of his 11/08/2018 hospitalization, he reported being prescribed Keppra, but neurology records indicated concern that it may increase his emotional lability, so he was switched to Depakote for both seizure control and mood stabilization. Previous neurology consultations reviewed; they saw him in 06/2018 and 10/2018. At the time of the most recent consultation, the patient reported noncompliance with Keppra as he felt it destabilized mood, so gabapentin 300 mg 3 times daily was recommended. His EEG was normal at that time, there was no known history of seizure disorder, and they suspected any seizure activity was due to alcohol withdrawal. No seizure activity observed during his U admissions. Continue Depakote, and increase as above. 11/22 -now that the patient has become more organized, he is better able to describe what he refers to as "seizures." As described by the patient, he reports a feeling of lightheadedness that is sometimes succeeded by a "blinding, throbbing headache" that involves his entire head from the forehead to his occipital region. He reports associated abdominal pain, nausea, and photophobia, and he notes that these symptoms, when they occur, tend to last "only a matter of minutes" before they improve and then resolve. He may or may not lose consciousness when this happens. He notes that he has sustained injuries from feeling "lightheaded" when the seizures began, but he says that he does not believe that he exhibits typical clonic tonic movements, nor does he lose control of bowel or bladder. The patient has a history of a number of head injuries that predated the onset of what he is referring to as "seizures." I believe that in the differential diagnosis should be the possibility of the patient is having a typical migraine headaches. In any event, he reports that he has had none since his admission to the unit several weeks ago. (4) Cannabis use disorder, mild, abuse: 11/13 -long-standing history of substance abuse, including alcohol, cannabis, methamphetamine, and cocaine; avoid use of controlled substances especially outside of the hospital due to the high risk of abuse/misuse/negative outcomes. -UDS was positive for THC on admission 11/08/2018, but drug screen is negative on this admission. Nevertheless, once his mental status improves, he will require ongoing psychoeducation regarding the risks of continued substance abuse, as he is clearly decompensated over the past month in the context of heavy drug use. -Will refer for outpatient mental health and substance abuse treatment prior to discharge. 11/28 -again reviewed the risks of substance use, including alcohol and illicit drugs, and the recommendations for abstinence. The patient voices understanding and willingness to abstain. He will follow-up at [facility] for her mental health and substance abuse treatment. (5) Alcohol abuse: 11/13 -patient reports being sober for 2 years, although information in the medical record contradicts this. 10/20/2018 he had a blood alcohol level of 267.4 in the ER, and UDS was positive for THC. 10/18/2018 drug screen was positive for methamphetamine (confirmatory result positive with a level of 1020) and THC as well as a BAL of 175.3. 10/15/2018 UDS was positive for cocaine and methamphetamine, and 06/27/2018 BAL was 199. He is a poor/unreliable historian and we have not been able to obtain collateral from friends or family. -He is not at risk for withdrawal currently, as he was in the hospital for 5 days and was discharged for less than 24 hours prior to being readmitted, and drug screen was negative in the ER on this presentation. 11/20 - Brief intervention was offered and accepted. Intervention was greater than 5 min in length. Brief interventions include: 1. Assess Readiness to Quit, 2. Advise: Help Patient to Reduce or Abstain from Alcohol, 3. Agree: Set Specific, Feasible Goals, 4. Assist: Anticipate barriers, Problem-Solving Solutions. Social work to 5. Arrange: Referrals to appropriate treatment. Summary of intervention: The patient is in contemplation stage with regards to transtheoretical model of change. The patient is advised to abstain from drugs and alcohol due to depressant effects and risk of interactions with prescription medications. The patient agreed to abstain, and will be provided with recovery materials to continue to education self on how to cope with their condition without drinking. He claims that he has been sober for 2 years, but has had multiple hospitalizations recently with high blood alcohol levels and drug use as above. Continue to support sobriety and assisting with coping techniques. 11/22 -the patient has stopped insisting that he has been sober "for 2 years," and acknowledges that, in fact, he has deliberately consumed alcohol and the intercurrent period. He had some difficulty identifying alcohol use triggers, but was eventually able to say "I guess when I get bored or frustrated." And today, he was able to at least voice recognition that the apartment that he plans to move into following discharge is located near several establishments that cell alcoholic beverages, and that this will present a temptation. He knows, "I guess with alcohol there is always a temptation, but I realize that I tend to get myself in a lot of trouble when I drink and I am definitely not going to." I suggested participation in Alcoholics Anonymous, and he said that he would follow that advice, and that he knows where there are AA meetings in [place]. 11/28 -see above. Follow-up at [facility]. (6) Nicotine addiction: 11/13 -offer nicotine patch and gum for cravings. Offer smoking cessation education. 11/22 -the patient tells us that he smokes "about 1 cigar a day," and does not smoke cigarettes. He also tells us that he is not currently craving tobacco products, but also acknowledges that he "misses chewing tobacco," and acknowledges that he may be apt to return to the use of chewing tobacco. I reminded that this former tobacco use is also quite dangerous and, among other things, can lead to fatal oral cancers. The patient indicated understanding. 11/23 - pt indicates plan for him is not resume chewing tobacco and denied need for any medical related assistance in not using chew Post Discharge Appointments Primary Care Physician Name Of Family Doctor: Alison Lorenzo Primary Care Provider Appointment Comment: [address] [place] [id number] Psychiatrist Name of Psychiatrist: [facility] - will be scheduled after intake - next injection around 12/18 Therapist Name of Therapist: [facility] EDIL Roth Therapist's Date of Therapist Appointment: 11/29/18 Time of Therapist Appointment: 10:30 am Therapy Appointment Comment: [address] [place] [id number] [employer] [address] Name of Burr Grinder: ALYSON Iverson Phone Number for Burr Grinder: [phone] Case Management Appointment Comment: Contact her to schedule Smoking Cessation Counseling Tobacco Cessation Medication Prescribed at Discharge: Not Applicable/Non-Smoker Contact Information Discharge Discharge Plan Discharge Items Patient Disposition: Home - Self-Care Reason For Visit: BIPOLAR Discharge Diagnosis: Bipolar type I, most recent episode manic and psychotic Cannabis and alcohol abuse Discharge Goals: Improve function, Learn about illness, Specific goals and Therapeutic intervention Specific Goals: start medications for bipolar disorder and refer for outpatient treatment Activity: Per 'Additional Instructions' section Non-emergency contact: Primary Care Provider, Psychiatrist and Therapist Call non-emergency contact if: you have any medication questions and your symptoms worsen Follow-up/Referrals: Elkin Lorenzo MD [Primary Care Provider] - Diet: Regular Addtl Provider Instructions: SPECIAL CARE INSTRUCTIONS: 1. Follow through with your scheduled aftercare appointments. If unable to keep an appointment, please call to reschedule. 2. Take your medication only as prescribed. Medication should not be changed or stopped without the approval of your doctor. In the event of worsening symptoms or concerns about side effects, contact your doctor immediately. 3. Utilize new healthy coping skills, anger management skills, and stress management skills learned during your hospitalization. Journal feelings and process them with a support person. Identify stressors or situations that may result in relapse, deterioration or inappropriate behaviors and develop a plan to deal with those issues. 4. If your coping skills are ineffective and you are in crisis, contact your outpatient providers for direction. If unable to reach your providers, please call the CAN HELP LINE AT or go to the closest Emergency Room. 5. Avoid alcohol and un-prescribed drugs. 6. You have been provided with the Mental Health Advance Directives Pamphlet for your review. AFTERCARE APPOINTMENTS: * Please call your insurance company prior to your scheduled appointment to confirm your aftercare providers are covered. Take your insurance information to your appointments. WHO TO CALL AND WHEN: Medical Emergencies: For questions or emergencies related to your hospital stay, please contact the Inpatient Behavioral Health Unit at [phone]. A fruit farmer is on-call 01/01 for the Behavioral Health Unit for emergencies At any time you feel your situation is an emergency, you may also call 911 immediately. Your Doctors Instructions noted above were prepared by provider Brenda Valero MD. Prescriptions: New aripiprazole [Abilify] 5 mg Tablet 15 mg PO QAM Qty: 45 RF: 0 divalproex 500 mg Tablet Extended Release 24 Hr 500 mg PO QAM Qty: 30 RF: 0 divalproex 500 mg Tablet Extended Release 24 Hr 1,500 mg PO HS Qty: 90 RF: 0 Abilify Maintena 400 mg suspension,extended rel recon 400 mg IM Q4WK Qty: 1 RF: 0 Continued pantoprazole 20 mg tablet,delayed release (DR/EC) 20 mg PO DAILY RF: 0 Discontinued metoprolol succinate 25 mg tablet extended release 24 hr 25 mg PO QAM RF: 0 risperidone 2 mg Tablet 2 mg PO BID Qty: 60 RF: 0 divalproex 500 mg Tablet Extended Release 24 Hr 500 mg PO BID Qty: 60 RF: 0 Stand-Alone Forms: [facility] Discharge Orders: Discharge Order (Routine); Ordered 11/28/18 Ordered By: Brenda Valero Admission Data Admit Date/Time: 11/13/18 05:23 Attending Provider: Brenda Valero Admit Provider: Lashanda Lutz Primary Care Provider: Elkin Lorenzo Service: Psychiatry Other Interventions: PSY Interdisciplinary Discharge Planning Last Done: 11/27/18 11:24 Pending Studies at Discharge: No
== END 2018-11-28 10:55 | disposition home or self-care (01) | DRG 885 ==
LOC: ED 01:01 → 3S 05:23